=== PATIENT | female | born 1970 | race Caucasian/White ===

== ENCOUNTER → 2023-06-22 | Outpatient (CLI) | payer OTHER, SELFPAY ==
--- OUTSIDE RECORDS SUMMARY | 2023-06-22 08:18 | XMS RPT_ITS | CCD ---
Author Name Unknown Address [address] [place] [address] Organization [facility] Care Team Providers Care Mascara Molder Name Role Phone Franky Pearson Primary Care Provider Unavailstephanie e BEDADAM SIMPSON Admitting Unavailable BEDDELLADAM Attending Unavailable AA REQUESTED, NEW Primary Care Unavailable LANIE LUNA Consulting Unavailable NANDINI VILLEGAS Consulting Unavailable BARBARADELLADAM Admitting Unavailable BEDADAM SIMPSON Attending Unavailable AA REQUESTED, NEW Primary Care Unavailable RENATO CANTORRICIA E, COP EXAMINER Admitting Unavaila ble KATHERINE CANTOR E, COP EXAMINER Attending Unavaila ble CHACORTA REQUESTED, NEW Primary Care Unavailable Franky Pearson Primary Care Provider UnavailFRANKY Villela DO Primary Care Physician Rio Aburto DO Primary Care Provider FRANKY PEARSON DO Attending Unavailable FRANKY PEARSON DO Primary Care Unavailable LILI MIKE, FRANKY Attending Unavailable LILI MIKE, FRANKY Primary Care Unavailable LILI MIKE, FRANKY Attending Unavailable LILI MIKE, FRANKY Primary Care Unavailable HALKO , FRANKY Attending Unavailable LILI MIKE, FRANKY Primary Care Unavailable LILI MIKE, FRANKY Attending Unavailable LILI MIKE, FRANKY Primary Care Unavailable LILI MIKE, FRANKY Attending Unavailable LILI MIKE, FRANKY Primary Care Unavailable KRYSTINA PUGH Attending Unavailable LILI MIKE, FRANKY Primary Care Unavailable LILI MIKE, FRANKY Attending Unavailable LILI MIKE, FRANKY Primary Care Unavailable LILI MIKE, FRANKY Attending Unavailable LILI MIKE, FRANKY Primary Care Unavailable LIIL MIKE, FRANKY Attending Unavailable LILI MIKE, FRANKY Primary Care Unavailable LINDA MARTINEZ MD Attending Unavailable FRANKY PEARSON DO Primary Care Unavailable SHAYNA MARISCAL Attending Unavailable RIO ABURTO Primary Care Unavailable SHAYNA MARISCAL Attending Unavailable SHAYNA MARISCAL Attending Unavailable SHAYNA MARISCAL Attending Unavailable RIO ABURTO Primary Care Unavailable Rio Aburto DO Primary Care Provider Allergies Allergy Classification Reported Allergen(s) Allergy Type Date of Onset Reaction(s) Facility (1 source) NSAIDs Drug allergy (disorder) [facility] Repository Medications Current Medications Medication Drug Class(es) Dates Sig (Normalized) Sig (Original) 3 ML semaglutide 1.34 MG/ML Pen Injector [Ozempic] (3 sources) Start: 08-24-2022 inject 1 dose by subcutaneous injection every week Ozempic (1 mg dose) 4 mg/3 mL subcutaneous solution Dose : 1 mg =, Subcutaneous, qWeek, # 3 mL, 0 Refill(s) Start Date: 08/24/22 Status: Ordered acetaminophen 500 mg oral tablet (7 sources) Start: 02-18-2019 acetaminophen 500 mg oral tablet Dose : 1,000 mg = 2 tab(s), Oral, q6hr, PRN for pain, # 100 tab(s), 0 Refill(s) Start Date: 02/18/19 Status: Ordered acetaminophen 325 mg / butalbital 50 mg / caffeine 40 mg oral capsule (5 sources) Barbiturate, Central Nervous System Stimulant, Methylxanthine Start: 08-24-2022 take 1 capsule by mouth every four hours as needed acetaminophen/buta lbital/caffeine 325 mg-50 mg-40 mg oral capsule Dose = 1 cap(s), Oral, q4h, PRN as needed, # 30 cap(s), 2 Refill(s), Pharmacy: [facility], 160, cm, 08/24/22 8:00:00 EDT, Height, kg, 08/24/22 8:00:00 EDT, Dosing Weight Start Date: 08/24/22 Status: Ordered Completed/Discontinued Medications Medication Drug Class(es) Dates Sig (Normalized) Sig (Original) acetaminophen 325 mg / HYDROcodone bitartrate 5 mg oral tablet (3 sources) Opioid Agonist Start: 05-22-2021 End: 05-25-2021 take 1 tablet by mouth every six hours as needed for pain Bonnie 325- 5 mg oral tablet Dose = 1 tab(s), Oral, q6h, PRN as needed for pain, # 10 tab(s), 0 Refill(s), Abdominal pain, 77.3 Start Date: 05/22/21 Stop Date: 05/25/21 Status: Ordered Azithromycin 5 Day Dose Pack 250 mg oral tablet (3 sources) Start: 08-26-2022 End: 08-31-2022 Azithromycin 5 Day Dose Pack 250 mg oral tablet Dose : 500 mg = 2 tab(s), Oral, qDay, Take 2 tabs day one (500mg), then 1 tab days 2-5 (250mg), # 6 tab(s), 0 Refill(s), Pharmacy: [facility][id number], Productive cough, 160, cm, 08/24/22 8:00:00 EDT, Height, 79 Start Date: 08/26/22 Stop Date: 08/31/22 Status: Ordered Problems Active Problems Problem Classification Problem Date Documented Da te Episodic/Chronic Abdominal pain (1 source) Abdominal pain; Translations: [Unspecified abdominal pain] Onset: 1 Episodic Anxiety disorders (14 sources) Anxiety disorder, unspecified; Translations: [Anxiety] Onset: 0 11-07-2019 Chronic Esophageal disorders (19 sources) Gastroesophageal reflux disease without esophagitis; Translations: [Gastroesophageal reflux disease] Onset: 0 10-20-2019 Chronic Headache; including migraine (3 sources) Migraine 08-24-2022 Chronic Immunizations and screening for infectious disease (2 sources) Encounter for screening for other viral diseases; Translations: [ENC SCREENING FOR OTH VIRAL DZ] Onset: 0 Episodic Menopausal disorders (13 sources) Menopausal flushing 11-23-2020 Chronic Menstrual disorders (6 sources) Irregular periods; Translations: [Irregular menstruation, unspecified] Onset: 8 06-27-2017 Chronic Mood disorders (13 sources) Major depression in remission 11-07-2019 Chronic Mood disorders (1 source) Major depressive disorder, single episode, unspecified; Translations: [JONNY DEPRESS D/O SINGLE EPIS UNS] Onset: 0 Nonspecific chest pain (3 sources) Chest pain; Translations: [Chest pain, unspecified] Onset: 3 Episodic Nutritional deficiencies (9 sources) Vitamin D deficiency; Translations: [Vitamin D deficiency, unspecified] Onset: 8 10-17-2017 Chronic Other aftercare (1 source) Other assisted (current) drug therapy; Translations: [OTH LEGISLATIVE ASSISTANT CURRENT DRUG THERAPY] Onset: 0 Episodic Other bone disease and musculoskeletal deformities (12 sources) Somatic dysfunction of upper limb 05-31-2021 Episodic Other connective tissue disease (12 sources) Pain in right arm 05-31-2021 Episodic Other gastrointestinal disorders (6 sources) Intestinal malabsorption; Translations: [Intestinal malabsorption, unspecified] Onset: 8 04-17-2018 Chronic Other gastrointestinal disorders (1 source) Irritable bowel syndrome without diarrhea; Translations: [IRRITABLE BOWEL SYND W/O DIARRHEA] Onset: 0 Chronic Other gastrointestinal disorders (1 source) History of bariatric surgical procedure; Translations: [Bariatric surgery status] Episodic Other hereditary and degenerative nervous system conditions (13 sources) Restless legs 06-25-2020 Chronic Other inflammatory condition of skin (1 source) Erythema intertrigo; Translations: [ERYTHEMA INTERTRIGO] Onset: 0 Episodic Other liver diseases (6 sources) Steatosis of liver; Translations: [Fatty (change of) liver, not elsewhere classified] Onset: 8 04-08-2018 Chronic Other nutritional; endocrine; and metabolic disorders (10 sources) Body mass index 30+ - obesity; Translations: [Body mass index (BMI) 31.0-31.9, adult] Onset: 9 Resolved: 9 04-10-2019 Chronic Other nutritional; endocrine; and metabolic disorders (6 sources) Morbid obesity; Translations: [Morbid (severe) obesity due to excess calories] Onset: 8 04-08-2018 Chronic Other nutritional; endocrine; and metabolic disorders (1 source) Body mass index 25-29 - overweight; Translations: [BMI 25.0-25.9,adult] Onset: 0 02-25-2020 Chronic Other nutritional; endocrine; and metabolic disorders (2 sources) Localized adiposity; Translations: [LOCALIZED ADIPOSITY] Onset: 0 Chronic Other nutritional; endocrine; and metabolic disorders (3 sources) Obesity, unspecified; Translations: [OBESITY UNSPECIFIED] Onset: 0 Chronic Other nutritional; endocrine; and metabolic disorders (1 source) Body mass index (BMI) 30.0-30.9, adult; Translations: [BODY MASS INDEX BMI 30.0-30.9 ADULT] Onset: 0 Chronic Other nutritional; endocrine; and metabolic disorders (11 sources) Obesity; Translations: [Obesity, unspecified] 11-22-2021 Chronic Other nutritional; endocrine; and metabolic disorders (2 sources) Body mass index (BMI) 31.0-31.9, adult; Translations: [Body mass index (BMI) 31.0-31.9, adult] Onset: 3 Chronic Other nutritional; endocrine; and metabolic disorders (2 sources) Body mass index (BMI) 32.0-32.9, adult; Translations: [Body mass index (BMI) 32.0-32.9, adult] Onset: 3 Chronic Other nutritional; endocrine; and metabolic disorders (1 source) Weight gain; Translations: [Abnormal weight gain] Episodic Other screening for suspected conditions (not mental disorders or infectious disease) (12 sources) Computed tomography result abnormal 05-31-2021 Chronic Other screening for suspected conditions (not mental disorders or infectious disease) (15 sources) Mammography abnormal; Translations: [Viral screening status] 05-31-2021 Episodic Residual codes; unclassified (13 sources) Immunization due 04-07-2020 Episodic Residual codes; unclassified (13 sources) Insomnia 10-07-2019 Episodic Residual codes; unclassified (13 sources) Postmenopausal state 11-23-2020 Episodic Residual codes; unclassified (3 sources) Screening due 08-24-2022 Episodic Residual codes; unclassified (2 sources) Family history of ischemic heart disease 08-29-2022 Episodic Screening and history of mental health and substance abuse codes (8 sources) Tobacco use and exposure - finding 02-28-2022 Chronic Unclassified (13 sources) Cancer cervix screening status 04-07-2020 Unclassified (13 sources) History of bypass of stomach 10-07-2019 Unclassified (20 sources) Patient encounter status 12-30-2019 Unclassified (2 sources) Bariatrics Post Op Follow-up; Translations: [Bariatrics Post Op Follow-up] Onset: 2 Unclassified (2 sources) Weight Management; Translations: [Weight Management] Onset: 2 Viral infection (12 sources) Viral disease; Translations: [Post-viral disorder] 05-27-2020 Episodic Past or Other Problems Problem Classification Problem Date Documented Da te Episodic/Chronic Calculus of urinary tract (18 sources) History of calculus of kidney; Translations: [Kidney stone] Onset: 06-27-2017 06-27-2017 Episodic Coma; stupor; and brain damage (6 sources) Daytime somnolence; Translations: [Somnolence] Onset: 06-27-2017 06-27-2017 Episodic Diabetes mellitus without complication (17 sources) Prediabetes; Translations: [Prediabetes] Onset: 08-18-2022 Resolved: 04-10-2019 04-10-2019 Episodic Essential hypertension (4 sources) Hypertensive disorder; Translations: [HTN (hypertension)] Resolved: 04-10-2019 04-10-2019 Chronic Gastritis and duodenitis (6 sources) Superficial gastritis; Translations: [Acute superficial gastritis] Onset: 11-27-2017 11-27-2017 Episodic Malaise and fatigue (8 sources) Fatigue; Translations: [Other fatigue] Onset: 06-27-2017 06-27-2017 Episodic Nutritional deficiencies (9 sources) Deficiency of multiple nutrient elements; Translations: [Deficiency of multiple nutrient elements] Onset: 04-17-2018 04-17-2018 Episodic Other gastrointestinal disorders (3 sources) Bariatric surgery status; Translations: [BARIATRIC SURGERY STATUS] Onset: 02-11-2020 Episodic Other lower respiratory disease (6 sources) Dyspnea; Translations: [Shortness of breath] Onset: 06-27-2017 06-27-2017 Episodic Other nutritional; endocrine; and metabolic disorders (2 sources) Overweight in adulthood with body mass index of 25 or more but less than 30; Translations: [Body mass index (BMI) 25.0-25.9, adult] Onset: 02-25-2020 03-27-2022 Episodic Other nutritional; endocrine; and metabolic disorders (2 sources) Abnormal weight gain; Translations: [Abnormal weight gain] Onset: 08-18-2022 Episodic Residual codes; unclassified (4 sources) Obstructive sleep apnea syndrome; Translations: [SANDY on CPAP] Onset: 03-14-2018 Resolved: 04-10-2019 04-10-2019 Chronic Spondylosis; intervertebral disc disorders; other back problems (6 sources) Backache; Translations: [Dorsalgia, unspecified] Onset: 06-27-2017 06-27-2017 Episodic Results Test Name Value Interpretation Reference Range Facil ity Vital Signs Date Time Vital Sign Value Performing Clinician Gracie maria 08-26-2022 19:04-0400 Body temperature 97.88 [degF] LINDA MARTINEZ MD [facility] 08-26-2022 18:57-0400 Body temperature 97.88 [degF] LINDA MARTINEZ MD [facility] 08-26-2022 18:30-0400 Diastolic Blood Pressure Non-Invasive 72 1 LINDA MARTINEZ MD [facility] 08-26-2022 18:30-0400 Heart rate 80 /min LINDA MARTINEZ MD [facility] 08-26-2022 18:30-0400 Respiratory rate 13 /min LINDA MARTINEZ MD [facility] 08-26-2022 18:30-0400 Systolic Blood Pressure Non-Invasive 130 1 LINDA MARTINEZ MD [facility] 08-26-2022 18:00-0400 Diastolic Blood Pressure Non-Invasive 69 1 LINDA MARTINEZ MD [facility] 08-26-2022 18:00-0400 Heart rate 81 /min LINDA MARTINEZ MD [facility] 08-26-2022 18:00-0400 Respiratory rate 14 /min LINDA MARTINEZ MD [facility] 08-26-2022 18:00-0400 Systolic Blood Pressure Non-Invasive 127 1 LINDA MARTINEZ MD [facility] 08-26-2022 17:30-0400 Diastolic Blood Pressure Non-Invasive 72 1 LINDA MARTINEZ MD [facility] 08-26-2022 17:30-0400 Heart rate 80 /min LINDA MARTINEZ MD [facility] 08-26-2022 17:30-0400 Respiratory rate 13 /min LINDA MARTINEZ MD [facility] 08-26-2022 17:30-0400 Systolic Blood Pressure Non-Invasive 130 1 LINDA MARTINEZ MD [facility] 08-26-2022 16:07-0400 Body temperature 96.62 [degF] LINDA MARTINEZ MD [facility] 08-18-2022 14:03-0500 Body height 160.7 cm Shayna Mariscal MD Work Phone: [facility] 08-18-2022 14:03-0500 Body mass index (BMI) [Ratio] 31.74 kg/m2 Shayna Mariscal MD Work Phone: [facility] [employer] 08-18-2022 14:03-0500 Body weight 81.92 kg Shayna Mariscal MD Work Phone: [facility] 08-18-2022 14:03-0500 Diastolic blood pressure 79 mm[Hg] Shayna Mariscal MD Work Phone: [facility] 08-18-2022 14:03-0500 Heart rate 94 /min hSayna Mariscal MD Work Phone: [facility] 08-18-2022 14:03-0500 Systolic blood pressure 121 mm[Hg] Shayna Mariscal MD Work Phone: [facility] 03-03-2022 09:25-0400 Diastolic Blood Pressure NBP [address] KRYSTINA PUGH MD [facility] 03-03-2022 09:25-0400 Heart rate 80 /min DR KRYSTINA PUGH MD [facility] 03-03-2022 09:25-0400 Respiratory rate 14 /min DR KRYSTINA PUGH MD [facility] 03-03-2022 09:25-0400 Systolic Blood Pressure NBP [address] KRYSTINA PUGH MD [facility] 03-03-2022 09:20-0400 Diastolic Blood Pressure NBP [address] KRYSTINA PUGH MD [facility] 03-03-2022 09:20-0400 Heart rate 73 /min DR KRYSTINA PUGH MD [facility] 03-03-2022 09:20-0400 Respiratory rate 21 /min DR KRYSTINA PUGH MD [facility] 03-03-2022 09:20-0400 Systolic Blood Pressure NBP [address] KRYSTINA PUGH MD [facility] 03-03-2022 09:16-0400 Diastolic Blood Pressure NBP [address] KRYSTINA PUGH MD [facility] 03-03-2022 09:16-0400 Heart rate 78 /min DR KRYSTINA PUGH MD [facility] 03-03-2022 09:16-0400 Respiratory rate 15 /min DR KRYSTINA PUGH MD [facility] 03-03-2022 09:16-0400 Systolic Blood Pressure NBP [address] KRYSTINA PUGH MD [facility] 03-03-2022 07:55-0400 Body height 162.[address] KRYSTINA PUGH MD [facility] 03-03-2022 07:55-0400 Body temperature 98.06 [degF] DR KRYSTINA PUGH MD [facility] 03-03-2022 07:55-0400 Body weight 79.[address] KRYSTINA PUGH MD [facility] 03-03-2022 07:55-0400 Body weight 30.07 kg/m2 DR KRYSTINA PUGH MD [facility] 05-22-2021 05:00-0500 Diastolic blood pressure 79 mm[Hg] RUY RIVERA MD [facility] 05-22-2021 05:00-0500 Heart rate 70 /min RUY RIVERA MD [facility] 05-22-2021 05:00-0500 Mean blood pressure 91 mm[Hg] RUY RIVERA MD [facility] 05-22-2021 05:00-0500 Reason For Taking VItal Signs RUY RIVERA MD [facility] 05-22-2021 05:00-0500 Respiratory rate 14 /min RUY RIVERA MD [facility] 05-22-2021 05:00-0500 Systolic blood pressure 114 mm[Hg] RUY RIVERA MD [facility] 05-22-2021 04:24-0500 Body temperature 98.06 [degF] RUY RIVERA MD [facility] 05-22-2021 04:24-0500 Diastolic blood pressure 97 mm[Hg] RUY RIVERA MD [facility] 05-22-2021 04:24-0500 Heart rate 81 /min RUY RIVERA MD [facility] 05-22-2021 04:24-0500 Mean blood pressure 108 mm[Hg] RUY RIVERA MD [facility] 05-22-2021 04:24-0500 Respiratory rate 16 /min RYU RIVERA MD [facility] 05-22-2021 04:24-0500 Systolic blood pressure 130 mm[Hg] RUY RIVERA MD [facility] Encounters Encounter Date Encounter Type Care Provider Facility Start: 01-16-2023 Telephone encounter Shayna mcdonald MD Work Phone: [facility] [place] Procedures Date Procedure Procedure Detail Performing Clinician Start: 06-08-2020 Lipid 1996 panel - S mikaela or Plasma Shayna Mariscal MD Work Phone: section DR KRYSTINA PUGH MD Plan of Treatment Date Care Activity Detail Author Start: 2031 RSV Immunization aged 60 or older (1 - 1-dose 60+ series) RSV Immunization aged 60 or older (1 - 1-dose 60+ series) [facility] Start: 04-07-2030 DTaP/Tdap/Td Vaccines (2 - Td or Tdap) DTaP/Tdap/Td Vaccines (2 - Td or Tdap) [facility] Start: 06-08-2025 Lipid panel Lipid Panel [facility] Start: 02-09-2023 COVID-19 Vaccine ( season) COVID-19 Vaccine ( season) [facility] Start: 02-09-2023 Influenza vaccination Influenza Vaccine (#1) [facility] Start: 12-15-2022 End: 12-15-2022 Patient encounter procedure 12/15/2022 Office Visit [facility] Management Shayna Mariscal MD [address] [place] [address] [facility] [place] Start: 10-19-2022 Zoster Vaccines (2 of 2) Zoster Vaccines (2 of 2) [facility] Start: 02-09-2022 Influenza vaccination Influenza Vaccine (#1) [facility] Start: 2021 Zoster Vaccines (1 of 2) Zoster Vaccines (1 of 2) [facility] Start: 06-02-2021 COVID-19 Vaccine (4 - Booster for Moderna series) COVID-19 Vaccine (4 - Booster for Moderna series) [facility] Start: 02-10-2020 Influenza vaccination Flu vaccine (#1) [place], [place] Start: 03-14-2019 A1C test (Diabetic or Prediabetic) A1C test (Diabetic or Prediabetic) [place] Start: 03-14-2019 HbA1c (Bld) [Mass fraction] A1C test (Diabetic or Prediabetic) [place] Start: 02-09-2019 Influenza vaccination Flu vaccine (#1) [place] Start: 2011 Screening for malignant neoplasm of breast Mammogram [facility] Start: 2001 Screening for malignant neoplasm of cervix [facility] Start: 1992 Cervical cancer screen Cervical cancer screen [place], [place] Start: 1992 Screening for malignant neoplasm of cervix [facility] Start: 1990 DTaP/Tdap/Td vaccine (1 - Tdap) DTaP/Tdap/Td vaccine (1 - Tdap) [place] Start: 1990 Hepatitis A Vaccines (1 of 2 - Risk 2-dose series) Hepatitis A Vaccines (1 of 2 - Risk 2-dose series) [facility] Start: 1990 Hepatitis B vaccine (1 of 3 - Risk 3-dose series) Hepatitis B vaccine (1 of 3 - Risk 3-dose series) [place] Start: 1989 Diabetes mellitus screening Diabetes Screening [facility] Start: 1989 Diabetic microalbuminuria test Diabetic microalbuminuria test [place] Start: 1989 Hepatitis C screening Hepatitis C Screening [facility] Start: 1986 HIV screen HIV screen [place], [place] Start: 1986 HIV screening HIV screen [place] Start: 1983 Depression Screening Depression Screening [facility] Start: 1981 [object Object] Diabetic foot exam [place], [place] Start: 1981 Diabetic foot examination Diabetic foot exam [place] Start: 1981 Diabetic retinal exam Diabetic retinal exam [place], [place] Start: 1981 Lipid panel Lipid screen [place] Start: 1981 Lipid screen Lipid screen [place] Start: 1977 Pneumococcal 0-64 years Vaccine (1 of 1 - PPSV23) Pneumococcal 0-64 years Vaccine (1 of 1 - PPSV23) [place] Start: 1972 Hepatitis A Vaccines (1 of 2 - Risk 2-dose series) Hepatitis A Vaccines (1 of 2 - Risk 2-dose series) [facility] Start: 1972 MMR Vaccines (1 of 1 - Standard series) MMR Vaccines (1 of 1 - Standard series) [facility] Start: 1971 Hepatitis B Vaccines (1 of 3 - 3-dose series) Hepatitis B Vaccines (1 of 3 - 3-dose series) [facility] Start: 1971 HIV screening HIV Screening [facility] Start: 1971 Screening for malignant neoplasm of colon [facility] Immunizations Immunization Date Immunization Notes Care Provider Fa prema 08-24-2022 zoster vaccine recombinant; Translations: [Shingrix] LINDA MARTINEZ MD [facility] 03-11-2022 influenza virus vaccine, unspecified formulation [facility] Payers Date Payer Category Payer Unknown [employer] [id number] 2021-Present [address] [place] [address] Commercial [id number] 2017 Unknown [employer] xxxxxxxxxxxxx 2017-Present [phone] [address] [place] [address] xxxxxxxxxxxxx [id number] 2017 Unknown [employer] [id number] 2017-Present [phone] [address] [place] [address] [id number] 2015 Unknown [id number] 1971 Unknown [id number] 1971 Unknown [id number] 1971 Unknown [id number] 1971 Unknown [id number] 1971 Unknown [id number] 1971 Unknown [id number] 1971 Unknown [id number] 1971 Unknown [id number] 1971 Unknown [id number] 1971 Unknown [id number] 1971 Unknown [id number] 1971 Unknown [id number] 1971 Unknown [id number] 1971 Unknown [id number] 1959 Unknown [id number] Unknown [id number] Social History Date Type Detail Facility Start: 06-27-2019 End: 12-10-2019 Tobacco smoking status NHIS Never smoker [place], [place] Start: 12-10-2019 End: 07-07-2022 Alcohol intake Ex-drinker (finding) [facility] Start: 04-01-2018 Alcohol Comment less than once a mon th [place], [place] Start: 1971 Sex Assigned At Not on file M [place] Start: 04-10-2019 End: 02-25-2020 Tobacco use and exposure Never used [place] Start: 04-10-2019 End: 07-07-2022 Alcohol intake Not Currently [place], [place] Sex Assigned At Female [facility] Start: 08-08-2022 End: 08-18-2022 Exposure to SARS-CoV-2 (event) Not sure [facility] Start: 07-07-2022 History of Social function [facility] Medical Equipment Procedure Code Equipment Code Equipment Origin al Text Equipment Identifier Dates See Instructions , dx E16.2; check BGT due to hypoglycemic symptoms, up to once per day; dispense 100 glucose test strips, # 100 EA, 0 Refill(s), Pharmacy: [facility], 164, cm, 04/04/22 8:05:00 EDT, Height, 86.1 Start: 04-04-2022 See Instructions , dx E16.2; check BGT due to hypoglycemic symptoms, up to once per day; dispense 100 lancets., # 100 EA, 0 Refill(s), Pharmacy: [facility], 164, cm, 04/04/22 8:05:00 EDT, Height, 86.1 Start: 04-04-2022 See Instructions , dx E16.2; check BGT due to hypoglycemic symptoms, up to once per day; dispense 100 glucose test strips, # 100 EA, 0 Refill(s), Pharmacy: [facility], 164, , 04/04/22 8:05:00 EDT, Height, 86.1 Start: 04-04-2022 See Instructions , dx E16.2; check BGT due to hypoglycemic symptoms, up to once per day; dispense 100 lancets., # 100 EA, 0 Refill(s), Pharmacy: [facility], 164, cm, 04/04/22 8:05:00 EDT, Height, 86.1 Start: 04-04-2022 See Instructions , dx E16.2; check BGT due to hypoglycemic symptoms, up to once per day; dispense 100 glucose test strips, # 100 EA, 0 Refill(s), Pharmacy: [facility], 164, , 04/04/22 8:05:00 EDT, Height, 86.1 Start: 04-04-2022 See Instructions , dx E16.2; check BGT due to hypoglycemic symptoms, up to once per day; dispense 100 lancets., # 100 EA, 0 Refill(s), Pharmacy: [facility], 164, cm, 04/04/22 8:05:00 EDT, Height, 86.1 Start: 04-04-2022 See Instructions , dx E16.2; check BGT due to hypoglycemic symptoms, up to once per day; dispense 100 glucose test strips, # 100 EA, 0 Refill(s), Pharmacy: [facility], 164, cm, 04/04/22 8:05:00 EDT, Height, 86.1 Start: 04-04-2022 See Instructions , dx E16.2; check BGT due to hypoglycemic symptoms, up to once per day; dispense 100 lancets., # 100 EA, 0 Refill(s), Pharmacy: [facility], 164, cm, 04/04/22 8:05:00 EDT, Height, 86.1 Start: 04-04-2022 See Instructions , dx E16.2; check BGT due to hypoglycemic symptoms, up to once per day; dispense 100 glucose test strips, # 100 EA, 0 Refill(s), Pharmacy: [facility], 164, cm, 04/04/22 8:05:00 EDT, Height, 86.1 Start: 04-04-2022 See Instructions , dx E16.2; check BGT due to hypoglycemic symptoms, up to once per day; dispense 100 lancets., # 100 EA, 0 Refill(s), Pharmacy: [facility], 164, cm, 04/04/22 8:05:00 EDT, Height, 86.1 Start: 04-04-2022 See Instructions , dx E16.2; check BGT due to hypoglycemic symptoms, up to once per day; dispense 100 glucose test strips, # 100 EA, 0 Refill(s), Pharmacy: [facility], 164, cm, 04/04/22 8:05:00 EDT, Height, 86.1 Start: 04-04-2022 See Instructions , dx E16.2; check BGT due to hypoglycemic symptoms, up to once per day; dispense 100 lancets., # 100 EA, 0 Refill(s), Pharmacy: [facility], 164, cm, 04/04/22 8:05:00 EDT, Height, 86.1 Start: 04-04-2022 See Instructions , dx E16.2; check BGT due to hypoglycemic symptoms, up to once per day; dispense 100 glucose test strips, # 100 EA, 0 Refill(s), Pharmacy: [facility], 164, cm, 04/04/22 8:05:00 EDT, Height, 86.1 Start: 04-04-2022 See Instructions , dx E16.2; check BGT due to hypoglycemic symptoms, up to once per day; dispense 100 lancets., # 100 EA, 0 Refill(s), Pharmacy: [facility], 164, cm, 04/04/22 8:05:00 EDT, Height, 86.1 Start: 04-04-2022 Functional Status Date Assessment Result Facility 08-26-2022 Functional Status Independent [facility] yuki [facility] 03-03-2022 Functional Status Maintained, Less than 8 hours [facility] Clinical Notes 05-22-2021 to 01-16-2023 Telephone Encounter - Liya Walker - 01/16/2023 4:54 PM EDTTelephone Encounter - Liya Walker - 01/16/2023 4:54 PM EDTMary Mishra MA - 08/18/2022 2:10 PM EST Note Date & Type Note Facility 01-16-2023 Telephone encounter Note Name of Caller: Amanda Contact Reason for Appointment: Pt needs to cancel upcoming appt and the pt sill call back to resx. Please advise Office Name: [facility] Medication Refills need, if any: NA Medication Name: NA [facility] 01-16-2023 Miscellaneous Notes Name of Caller: Amanda Contact Reason for Appointment: Pt needs to cancel upcoming appt and the pt sill call back to resx. Please advise Office Name: [facility] Medication Refills need, if any: NA Medication Name: NA documented in this encounter [facility] 08-26-2022 Hospital Discharg e instructions Patient Education 08/26/2022 17:49:43 Chest Pain, Uncertain Cause Uncertain Causes of Chest Pain Chest pain can happen for a number of reasons. Sometimes the cause can't be determined. If your condition does not seem serious, and your pain does not appear to be coming from your heart, your healthcare provider may recommend watching it closely. Sometimes the signs of a serious problem take more time to appear. Many problems not related to your heart can cause chest pain. These include: Musculoskeletal. Costochondritis is an inflammation of the tissues around the ribs that can occur from trauma or overuse injuries, or a strain of the muscles of the chest wall Respiratory. Pneumonia, collapsed lung (pneumothorax), or inflammation of the lining of the chest and lungs (pleurisy) Gastrointestinal. Esophageal reflux, heartburn, ulcers, or gallbladder disease Anxiety and panic disorders Nerve compression and inflammation Rare miscellaneous problems such as aortic aneurysm (a swelling of the large artery coming out of the heart) or pulmonary embolism (a blood clot in the lungs) Home care After your visit, follow these recommendations: Rest today and avoid strenuous activity. Take any prescribed medicine as directed. Be aware of any recurrent chest pain and notice any changes Follow-up care Follow up with your healthcare provider if you do not start to feel better within 24 hours, or as advised. Call 911 Call 911 if any of these occur: A change in the type of pain: if it feels different, becomes more severe, lasts longer, or begins to spread into your shoulder, arm, neck, jaw or back Shortness of breath or increased pain with breathing Weakness, dizziness, or fainting Rapid heart beat Crushing sensation in your chest When to seek medical advice Call your healthcare provider right away if any of the following occur: Cough with dark colored sputum (phlegm) or blood Fever of 100.4 F (38 C) or higher, or as directed by your healthcare provider Swelling, pain or redness in one leg [id number] [employer]. [address] [place] [id number]. All rights reserved. This information is not intended as a substitute for professional medical care. Always follow your healthcare professional's instructions. Follow Up Care 08/26/2022 16:01:09 With:FRANKY PEARSON Address: [address] [facility] [place] [address]- [phone] Business (1) When:2-4 days Comments:Schedule appointment as soon as possibleReturn to ED if symptoms worsenClear liquid diet till 12noon and if symptoms do not recur increase as tolerated.Follow up for outpatient stress testing.Return for symptoms as described [facility] 08-26-2022 Note Discharge Instructions Thank you for allowing [facility] to assist you with your healthcare needs. The following is important discharge information regarding your hospital visit. Diagnosis from Today's Visit Chest pain Chest pain SOB - Shortness of breath What to Do Next Instructions from Your Care Team No qualifying data available. Post Acute Orders No qualifying data available. You Need to Schedule the Following Appointments Follow Up with FRANKY PEARSON When Within 2-4 days Why: Schedule appointment as soon as possible Return to ED if symptoms worsen Clear liquid diet till 12noon and if symptoms do not recur increase as tolerated. Follow up for outpatient stress testing. Return for symptoms as described Where: [address] [facility] [place] [address]- [phone] Business (1) Allergies NKA Medications Please ask your primary doctor or pharmacist before taking any other medication not listed, including over the counter drugs, herbal medications, vitamins and or supplements as they may interact with your home medications. What How Much When Why Instructions Last Dose Unchanged APAP/ butalbital/ caffeine (acetaminophen/ butalbital/ caffeine 325 mg-50 mg-40 mg oral capsule) 1 cap by mouth Every 4 hours as needed for as needed Unchanged azithromycin (Azithromycin 5 Day Dose Pack 250 mg oral tablet) 2 tab(s) by mouth Once a day Productive cough Duration: 5 Days Take 2 tabs day one (500mg), then 1 tab days 2-5 (250mg) Unchanged biotin (biotin 1000 mcg oral tablet) 4 tab(s) by mouth Once a day Unchanged brompheniramine/ dextromethorphan/ PSE (Bromfed DM oral syrup) 10 Milliliter by mouth Four (4) times a day as needed for for cold symptoms Productive cough Duration: 7 Days Unchanged buPROPion (buPROPion 100 mg oral tablet) 1 tab(s) by mouth Two (2) times a day Duration: 90 Days Unchanged calcium gluconate (calcium gluconate 500 mg oral tablet) 1 tab(s) by mouth Three (3) times a day Unchanged cholecalciferol (Vitamin D3 125 mcg (5000 intl units) oral tablet) 1 tab(s) by mouth Once a day Duration: 90 Days Unchanged cyanocobalamin (Vitamin B12 500 mcg sublingual tablet) 1 tab(s) under the tongue Once a day Unchanged DME (DME MISCellaneous) See instructions dx E16.2; check BGT due to hypoglycemic symptoms, up to once per day; dispense 100 lancets. Unchanged DME (DME MISCellaneous) See instructions dx E16.2; check BGT due to hypoglycemic symptoms, up to once per day; dispense 100 glucose test strips Unchanged DME (DME MISCellaneous) See instructions dx E16.2; check BGT due to hypoglycemic symptoms, up to once per day; dispense 100 EtOH wipes Unchanged DME (DME MISCellaneous) See instructions Hypoglycemia dx E16.2; check BGT due to hypoglycemic symptoms, up to once per day; dispense one glucometer. Unchanged estradiol (estradiol 0.5 mg oral tablet) 1 tab(s) by mouth Once a day Unchanged LORazepam (LORazepam 0.5 mg oral tablet) 1 tab(s) by mouth Once a day as needed for as needed for anxiety Anxiety Duration: 30 Days oarrs appropriate, to be filled on or after Unchanged metFORMIN (MetFORMIN (Eqv-Glucophage XR) 500 mg oral tablet, EXTENDED RELEASE) 1 tab(s) by mouth Two (2) times a day Duration: 90 Days Unchanged multivitamin (Multivitamin) 1 tab(s) by mouth Two (2) times a day Unchanged omeprazole (omeprazole 20 mg oral delayed release capsule) 1 cap by mouth Once a day Duration: 90 Days Unchanged ondansetron (ondansetron 4 mg oral tablet, disintegrating) 1 tab(s) by mouth Every 6 hours as needed for Nausea/Vomiting Unchanged predniSONE (prednisone 20mg tab (TAPER)) 2 tab(s) by mouth Once a day Productive cough Duration: 5 Days Unchanged semaglutide (Ozempic (1 mg dose) 4 mg/ 3 mL subcutaneous solution) 1 Milligram Subcutaneous Every week Unchanged zinc gluconate (zinc (as gluconate) 50 mg oral tablet) 1 tab(s) by mouth Every day Duration: 90 Days Please take this list to your next doctor s visit. Bring all medications you take, including over the counter medications, herbals and other supplements with you to your doctor s visit. Patients and families are reminded to discard old lists and to update any records with all medication providers or retail pharmacies. Education Materials Uncertain Causes of Chest Pain Chest pain can happen for a number of reasons. Sometimes the cause can't be determined. If your condition does not seem serious, and your pain does not appear to be coming from your heart, your healthcare provider may recommend watching it closely. Sometimes the signs of a serious problem take more time to appear. Many problems not related to your heart can cause chest pain. These include: Musculoskeletal. Costochondritis is an inflammation of the tissues around the ribs that can occur from trauma or overuse injuries, or a strain of the muscles of the chest wall Respiratory. Pneumonia, collapsed lung (pneumothorax), or inflammation of the lining of the chest and lungs (pleurisy) Gastrointestinal. Esophageal reflux, heartburn, ulcers, or gallbladder disease Anxiety and panic disorders Nerve compression and inflammation Rare miscellaneous problems such as aortic aneurysm (a swelling of the large artery coming out of the heart) or pulmonary embolism (a blood clot in the lungs) Home care After your visit, follow these recommendations: Rest today and avoid strenuous activity. Take any prescribed medicine as directed. Be aware of any recurrent chest pain and notice any changes Follow-up care Follow up with your healthcare provider if you do not start to feel better within 24 hours, or as advised. Call 911 Call 911 if any of these occur: A change in the type of pain: if it feels different, becomes more severe, lasts longer, or begins to spread into your shoulder, arm, neck, jaw or back Shortness of breath or increased pain with breathing Weakness, dizziness, or fainting Rapid heart beat Crushing sensation in your chest When to seek medical advice Call your healthcare provider right away if any of the following occur: Cough with dark colored sputum (phlegm) or blood Fever of 100.4 F (38 C) or higher, or as directed by your healthcare provider Swelling, pain or redness in one leg [id number] [employer]. [address] [place] [address], [place] [address]. All rights reserved. This information is not intended as a substitute for professional medical care. Always follow your healthcare professional's instructions. Additional Information VACCINATE! IT SAVES LIVES! Members of the community who have not yet received the COVID-19 vaccine and would like to receive it can visit one of [facility] vaccine clinics. There are many vaccine clinic locations within the [facility]. For locations and available times, please visit [email or web address].[place].g [email or web address] It is important to note that some COVID mobile vaccine clinics are held outdoors and may be canceled in rainy or stormy conditions. To learn more about pediatric vaccinations (ages 5-11), we invite you to visit the [employer] webpage. https://www.[employer].org/pa ges/4438-Beesz-Kfhydztabgi-Freque eswk-Yssxd-Jqqmfiwce.html To learn more about the COVID-19 vaccine, we invite you to visit the CDC website for a list of frequently asked questions. https://www.cdc.gov/coronavirus/2 019-ncov/vaccines/faq.html [facility] Patient Portal Access Instructions: Stay connected with your healthcare team and access your personal medical information anytime with the [facility] Patient Portal. If you would like a full copy of your medical records please contact the [facility] Medical Records Department Sunday through Sunday between 8a.m. and 4:30p.m. Please follow the directions below to access the portal: 1.Access the email account you provided upon registration to the hospital.2.Look for an invitation email from [facility].3.Open the email and access the invitation link: Accept Invitation to [facility]4.Fill in the required mckenzie to create your account. Sign into www.[employer] with your username and password that you created in the above steps to stay up to date. You can then view a summary of results, a summary of your visits, and the ability to download your summaries to your computer or send the information securely to a physician. Remember that your healthcare information is confidential, so carefully consider who you will allow to register on the [facility] Patient Portal for access to your information. You can also access the [facility] Patient Portal on the [employer] ram[employer]rez. Simply click on Health Records under Health Data and then click on the [employer] logo. HOW TO SAFELY DISPOSE OF PRESCRIPTION MEDICATIONS Please use one of the following methods to safely dispose of your unused medications. 1.Use a drug disposal kit: the drug disposal pouch allows you to safely discard your old and unused drugs. Ask your nurse to give you one when you are discharged.2.Visit a local take-back location: Many local pharmacies and police departments have programs that collect old and unwanted prescription drugs. Call your local pharmacy or go to http://[employer].Divided/6L5Jt7t to find one close to you.3.Make use of household items: Use cat litter or old coffee grounds to dispose medications if other options are not available. Mix your drugs with these household products, seal them in an airtight container and throw it into the garbage. Call [facility]: [phone] to be sure your drugs can be disposed of in this way. Some medicines may require a different approach.4.Never flush your medications down the toilet. IF YOU HAVE BEEN PRESCRIBED AN OPIOIDS FOR PAIN If you have been prescribed an opioid (such as hydrocodone, oxycodone or morphine), it is critical to understand the possible side effects and risks of opioid pain medications. Even when taken as directed, opioids can have several side effects including: Tolerance, meaning you might need to take more of a medication for the same pain relief. Nausea, vomiting and/or constipation. Sleepiness, dizziness, dry mouth, confusion, depression or itching. Physical dependence, meaning you have withdrawal symptoms when a medication is stopped ? this can develop within a few days. KNOW YOUR RESPONSIBILITIES It is important to know exactly how much and how often to take the opioid pain medications you are prescribed. Never take opioids in higher amounts or more often than prescribed. Do not combine opioids with alcohol or other drugs that cause drowsiness, such as benzodiazepines, also known as benzos, including diazepam and alprazolam, muscle relaxants or sleep aids. Never sell or share prescription opioids. This is illegal. Store opioids in a secure place and out of reach of others (including children, family, friends and visitors). The last page(s) of this document has been signed and retained as a CHART COPY Signatures Patient Education Materials Chest Pain, Uncertain Cause Medication Leaflets My discharge plan and instructions have been reviewed and explained to me and IROMIE HEIDI L understand my current condition and have read and understand these discharge instructions. I have received a written copy of the plan/instructions. If I have questions, I am aware that I should contact my doctor. 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 Multiplanar reformatted images are provided for review. Automated exposure control, iterative reconstruction, and/or weight based adjustment of the mA/kV was utilized to reduce the radiation dose to as low as reasonably achievable. COMPARISON: CT abdomen pelvis May 22, 2021 HISTORY: ORDERING SYSTEM PROVIDED HISTORY: Reason for Exam: pain FINDINGS: Lower Chest: Normal heart size. No focal consolidation or pleural effusion. Organs: The liver appears normal. The patient is status post cholecystectomy. The spleen appears normal. The pancreas appears normal. The adrenal glands appear normal. The kidneys enhance symmetrically with no evidence of nephrolithiasis or hydronephrosis. GI/Bowel: Stable gastric surgical changes. There is stable postsurgical changes in the small bowel. There is mild focal small bowel dilatation just proximal to the anastomosis, however the lumen is patent. There is no evidence of obstruction. The appendix is normal. Pelvis: The pelvic organs appear normal. Peritoneum/Retroperitoneum: There is no intraperitoneal free air or ascites. The aorta and its major branches appear normal. Stable mildly prominent but not pathologically enlarged paraesophageal lymph node at hiatus. No lymphadenopathy is identified. Bones/Soft Tissues: No focal bone or soft tissue abnormality is seen. IMPRESSION: 1. No definite acute abnormality identified. 2. Stable postsurgical changes including left lower quadrant small bowel anastomosis which is patent, although mild focal dilatation is noted proximal to this, of indeterminate clinical significance. Interpreted by: Peewee Vo Preliminary Report By: Peewee Vo Electronically signed By Peewee Vo Dictated Date: 08/26/2022 6:21:07 PM Prelim Date: 08/26/2022 6:34:22 PM Sign Date: 08/26/2022 6:34:22 PM Ordering Provider: LINDA [facility] 08-26-2022 Note ORIGINAL EXAMINATION: CT OF THE ABDOMEN AND PELVIS WITH CONTRAST 08/26/2022 6:16 pm TECHNIQUE: CT of the abdomen and pelvis was performed with the administration of intravenous contrast. Multiplanar reformatted images are provided for review. Automated exposure control, iterative reconstruction, and/or weight based adjustment of the mA/kV was utilized to reduce the radiation dose to as low as reasonably achievable. COMPARISON: CT abdomen pelvis May 22, 2021 HISTORY: ORDERING SYSTEM PROVIDED HISTORY: Reason for Exam: pain FINDINGS: Lower Chest: Normal heart size. No focal consolidation or pleural effusion. Organs: The liver appears normal. The patient is status post cholecystectomy. The spleen appears normal. The pancreas appears normal. The adrenal glands appear normal. The kidneys enhance symmetrically with no evidence of nephrolithiasis or hydronephrosis. GI/Bowel: Stable gastric surgical changes. There is stable postsurgical changes in the small bowel. There is mild focal small bowel dilatation just proximal to the anastomosis, however the lumen is patent. There is no evidence of obstruction. The appendix is normal. Pelvis: The pelvic organs appear normal. Peritoneum/Retroperitoneum: There is no intraperitoneal free air or ascites. The aorta and its major branches appear normal. Stable mildly prominent but not pathologically enlarged paraesophageal lymph node at hiatus. No lymphadenopathy is identified. Bones/Soft Tissues: No focal bone or soft tissue abnormality is seen. IMPRESSION: 1. No definite acute abnormality identified. 2. Stable postsurgical changes including left lower quadrant small bowel anastomosis which is patent, although mild focal dilatation is noted proximal to this, of indeterminate clinical significance. Interpreted by: Peewee Vo Preliminary Report By: Peewee Vo Electronically signed By Peewee Vo Dictated Date: 08/26/2022 6:21:07 PM Prelim Date: 08/26/2022 6:34:22 PM Sign Date: 08/26/2022 6:34:22 PM Ordering Provider: LINDA [facility] 08-26-2022 Note ORIGINAL EXAMINATION: ONE XRAY VIEW OF THE CHEST08/26/2022 5:07 pm CHEST ONE VIEW AP/PA COMPARISON: 03/15/2018 HISTORY: ORDERING SYSTEM PROVIDED HISTORY: Reason for Exam: chest pain FINDINGS: The cardiomediastinal contours are normal. There is no focal consolidation, pleural effusion, or pneumothorax. No acute osseous abnormality. IMPRESSION: No acute radiographic findings. Interpreted by: Sumanth Swanson MD Preliminary Report By: Sumanth Swanson MD Electronically signed By Sumanth Swanson MD Dictated Date: 08/26/2022 5:13:47 PM Prelim Date: 08/26/2022 5:14:04 PM Sign Date: 08/26/2022 5:14:04 PM Ordering Provider: [facility] 08-26-2022 Note ORIGINAL EXAMINATION: ONE XRAY VIEW OF THE CHEST08/26/2022 5:07 pm CHEST ONE VIEW AP/PA COMPARISON: 03/15/2018 HISTORY: ORDERING SYSTEM PROVIDED HISTORY: Reason for Exam: chest pain FINDINGS: The cardiomediastinal contours are normal. There is no focal consolidation, pleural effusion, or pneumothorax. No acute osseous abnormality. IMPRESSION: No acute radiographic findings. Interpreted by: Sumanth Swanson MD Preliminary Report By: Sumanth Swanson MD Electronically signed By Sumanth Swanson MD Dictated Date: 08/26/2022 5:13:47 PM Prelim Date: 08/26/2022 5:14:04 PM Sign Date: 08/26/2022 5:14:04 PM Ordering Provider: [facility] 08-18-2022 Note BARIATRIC CARE IDALIA Nathan POST-OP WEIGHT LOSS MANAGEMENT PROGRESS NOTE FOLLOW UP HPI, PHYSICAL EXAMINATION & PLAN HPI: Patient here today for follow up for weight loss management following surgical weight loss Weight trend since last visit: lost 3 lbs over 1 m stable This patient's excess weight is causing the following co-morbid conditions at this time: Other preDM Plan Physical Examination: Ht 5' 3.25 (1.607 m) Wt 180 lb 9.6 oz (81.9 kg) BMI 31.74 kg/m? General: This patient is alert and oriented X3 General: This patient is awake, alert, and oriented, and is in no apparent distress. Extremities: No cyanosis, clubbing or edema/ No calf tenderness/No restrictions of movement, is ambulatory without assistance. Neurological: Intact x 4 extremities, no focal deficits notes. Skin: No rashes or lesions noted. Social History: This patient is unaccompanied for the evaluation today. She does not smoke, and does not drink alcohol. Current Diet This patient?s current diet is: 80% meal plan Her diet contains adequate amounts of protein, adequate amounts of healthy fats, adequate amounts of green, leafy vegetables, and adequate amounts of fruits. Her comfort foods include: none Current Activity This patient currently does exercise for 30 Minutes per session, 4 times per week, including the following: cardio . Current Eating Behaviors This patients demonstrates the following behaviors as they relate to her eating: structured She eats approximately 5-6 times per day. Her last meal/snack was at 6 am/pm. Progress Made Towards Goals: 3 month weight goal: 10 6 month weight goal: 30 12 month weight goal: 40 Plan: S/P bariatric surgery stable Continue current management, continue weight loss program Obesity Continue current management, continue weight loss program Stable preDM Ozempic 3 month supply Continue current management, continue weight loss program stable [x] Protein goal of 1g protein per 1 kg of ideal body weight: 75 grams [x] Patient advised to maintain a food/exercise/behavior diary until next physician visit. Pt to bring the completed diary to next visit Other: Physician Diet Recommendations given to patient See Follow up Section of today's encounter for next visit and additional scheduling orders I spend a total of 20 minutes on the same day of the visit in discussing/counseling the patient regarding the diet and exercise in order to lose weight.Education on the meal plan and 7 rules of eating is provided. Meal prep is encouraged as a foundation of the meal plan. Food journal is encouraged as a feedback system. Exercise and its role in weight loss is explained. Weight loss medications role in weight loss journey is discussed preDM Is associated with obesity and weight loss is discussed as a treatment option for preDM Full chart review was performed.Clinical documentation is updated and completed. [facility] 08-18-2022 History of Presen t illness Narrative [facility] ROOMING NOTE POST WEIGHT LOSS SURGERY FOLLOW UP Patient: Amanda Grubbs Service Date: 08/18/2022 Patient is 5 year(s) s/p RnY Gastric Bypass Today's Metrics: Post-Surgical Weight Loss Date: 08/18/22 Height: 5' 3.25 (160.7 cm) Weight: 180 lb 9.6 oz (81.9 kg) BMI: 31.74 Weight Change: -3.2 lbs Total Weight Change: <No Pre-Surgical Weight on File> % EBWL: <UNK> Post-op Weight Metrics: Post-Surgical Weight Loss Date: 08/18/22 Height: 5' 3.25 (160.7 cm) Weight: 180 lb 9.6 oz (81.9 kg) BMI: 31.74 Weight Change: -3.2 lbs Total Weight Change: <No Pre-Surgical Weight on File> % EBWL: <UNK> (From Surgical Weight Loss Tracker) Patient has the following questions: None Reported Pain: Patient rates pain on scale 0-10 as: 0 Exercise Compliance: Exercising: yes If yes: Type: gym with skills trainer Times per week: 3 Min per session: 60 Falls Risk Assessment Patient does take medications which affect BP or mental status Patient does not t have newly prescribed or changed dosage of medications within past 30 days which affect BP or mental status Patient has not fallen in the past 2 months Patient does not t demonstrate unsteady gait Patient uses the following ambulatory assistive devices: none Patient states the presence of the following traits which increases risk of fall: none Patient is not on home O2 Pre-op Weight Metrics: Labs Completed: no - If NO, patient instructed to get labs drawn today or JAD If YES: [facility] N/A If yes see Labs Tab Labs completed at Non[facility] facility? N/A If yes see Encounters Tab - Orders only - Historical Provider - Date: Completed by: Mary Mishra MA [facility] POST-OP WEIGHT LOSS MANAGEMENT PROGRESS NOTE FOLLOW UP HPI, PHYSICAL EXAMINATION & PLAN HPI: Patient here today for follow up for weight loss management following surgical weight loss Weight trend since last visit: lost 3 lbs over 1 m stable This patient's excess weight is causing the following co-morbid conditions at this time: Other preDM Plan Physical Examination: Ht 5' 3.25 (1.607 m) Wt 180 lb 9.6 oz (81.9 kg) BMI 31.74 kg/m General: This patient is alert and oriented X3 General: This patient is awake, alert, and oriented, and is in no apparent distress. Extremities: No cyanosis, clubbing or edema/ No calf tenderness/No restrictions of movement, is ambulatory without assistance. Neurological: Intact x 4 extremities, no focal deficits notes. Skin: No rashes or lesions noted. Social History: This patient is unaccompanied for the evaluation today. She does not smoke, and does not drink alcohol. Current Diet This patient s current diet is: 80% meal plan Her diet contains adequate amounts of protein, adequate amounts of healthy fats, adequate amounts of green, leafy vegetables, and adequate amounts of fruits. Her comfort foods include: none Current Activity This patient currently does exercise for 30 Minutes per session, 4 times per week, including the following: cardio . Current Eating Behaviors This patients demonstrates the following behaviors as they relate to her eating: structured She eats approximately 5-6 times per day. Her last meal/snack was at 6 am/pm. Progress Made Towards Goals: 3 month weight goal: 10 6 month weight goal: 30 12 month weight goal: 40 Plan: S/P bariatric surgery stable Continue current management, continue weight loss program Obesity Continue current management, continue weight loss program Stable preDM Ozempic 3 month supply Continue current management, continue weight loss program stable [x] Protein goal of 1g protein per 1 kg of ideal body weight: 75 grams [x] Patient advised to maintain a food/exercise/behavior diary until next physician visit. Pt to bring the completed diary to next visit Other: Physician Diet Recommendations given to patient See Follow up Section of today's encounter for next visit and additional scheduling orders I spend a total of 20 minutes on the same day of the visit in discussing/counseling the patient regarding the diet and exercise in order to lose weight.Education on the meal plan and 7 rules of eating is provided. Meal prep is encouraged as a foundation of the meal plan. Food journal is encouraged as a feedback system. Exercise and its role in weight loss is explained. Weight loss medications role in weight loss journey is discussed preDM Is associated with obesity and weight loss is discussed as a treatment option for preDM Full chart review was performed.Clinical documentation is updated and completed. documented in this encounter [facility] 07-07-2022 Note [facility] POST-OP WEIGHT LOSS MANAGEMENT PROGRESS NOTE FOLLOW UP HPI, PHYSICAL EXAMINATION & PLAN HPI: Patient here today for follow up for weight loss management following surgical weight loss Weight trend since last visit: lost 5 lbs over 1 m stable This patient's excess weight is causing the following co-morbid conditions at this time: Other preDM Plan Physical Examination: BP 122/82 Pulse 84 Resp 14 Ht 5' 3.25 (1.607 m) Wt 183 lb 12.8 oz (83.4 kg) BMI 32.30 kg/m? General: This patient is alert and oriented X3 General: This patient is awake, alert, and oriented, and is in no apparent distress. Extremities: No cyanosis, clubbing or edema/ No calf tenderness/No restrictions of movement, is ambulatory without assistance. Neurological: Intact x 4 extremities, no focal deficits notes. Skin: No rashes or lesions noted. Social History: This patient is unaccompanied for the evaluation today. She does not smoke, and does not drink alcohol. Current Diet This patient?s current diet is: 80% meal plan Her diet contains adequate amounts of protein, adequate amounts of healthy fats, adequate amounts of green, leafy vegetables, and adequate amounts of fruits. Her comfort foods include:sweets Current Activity This patient currently does exercise for 45 Minutes per session, 4 times per week, including the following: walking. Current Eating Behaviors This patients demonstrates the following behaviors as they relate to her eating: structured She eats approximately 5-6 times per day. Her last meal/snack was at 6 am/pm. Progress Made Towards Goals: 3 month weight goal: 10 6 month weight goal: 20 12 month weight goal: 30 Plan: S/P bariatric surgery stable Continue current management, continue weight loss program Obesity Continue current management, continue weight loss program Stable Ozempic next dose Focus on meal structure and meal composition preDM Continue current management, continue weight loss program stable Ozempic 1 mg [x] Protein goal of 1g protein per 1 kg of ideal body weight: 75 grams [x] Patient advised to maintain a food/exercise/behavior diary until next physician visit. Pt to bring the completed diary to next visit Other: Physician Diet Recommendations given to patient See Follow up Section of today's encounter for next visit and additional scheduling orders I spent a total of 20 minutes on the day of the visit discussing/counseling the patient regarding the post operative management listed below. 1. Adherence to nutrient-dense foods,containing sufficient amounts of lean proteins and fibers. Fluid 30 minutes before or after meals. 1 cup is the maximum meal size. 2. Physical activity - aerobic physical activity 150-300 min/wk and strength training 2-3 times per wk. 3.preDM Is associated with obesity and weight loss/ weight maintenance is discussed as a treatment option for HTN preDM 4. Weight maintenance after bariatric surgery discussed [facility] 2022 Note ORIGINAL HISTORY: Lung nodule COMPARISON: 02 December 2021 TECHNIQUE: Chest CT with sagittal and coronal reconstructions. This exam was performed according to our departmental dose optimization program, and includes the following measures where applicable: automated exposure control, adjustment of the mAs and/or kVp according to patient size and/or exam, and an iterative reconstruction algorithm. FINDINGS: There is a 5 mm left upper lobe nodule image 31. There is a 6 mm soft tissue nodule in the right upper lobe along the minor fissure, image 35. There are a few scattered smaller nodules as well. The lungs are otherwise clear. There is mild mediastinal lymphadenopathy, with a 2 cm subcarinal node and a right pretracheal node measuring about 16 mm in short axis. No hilar or axillary lymphadenopathy is seen. Chest wall structures are unremarkable. There is bariatric surgery. IMPRESSION: No significant interval change. Interpreted by: Winston Rogers MD Preliminary Report By: Winston Rogers MD Electronically signed By Winston Rogers MD Dictated Date: 2022 12:40:35 PM Prelim Date: 2022 12:43:51 PM Sign Date: 2022 12:43:51 PM [facility] Note ORIGINAL HISTORY: Lung nodule COMPARISON: 02 December 2021 TECHNIQUE: Chest CT with sagittal and coronal reconstructions. This exam was performed according to our departmental dose optimization program, and includes the following measures where applicable: automated exposure control, adjustment of the mAs and/or kVp according to patient size and/or exam, and an iterative reconstruction algorithm. FINDINGS: There is a 5 mm left upper lobe nodule image 31. There is a 6 mm soft tissue nodule in the right upper lobe along the minor fissure, image 35. There are a few scattered smaller nodules as well. The lungs are otherwise clear. There is mild mediastinal lymphadenopathy, with a 2 cm subcarinal node and a right pretracheal node measuring about 16 mm in short axis. No hilar or axillary lymphadenopathy is seen. Chest wall structures are unremarkable. There is bariatric surgery. IMPRESSION: No significant interval change. Interpreted by: Winston Rogers MD Preliminary Report By: Winston Rogers MD Electronically signed By Winston Rogers MD Dictated Date: 2022 12:40:35 PM Prelim Date: 2022 12:43:51 PM Sign Date: 2022 12:43:51 PM Ordering Provider: [facility] 06-07-2022 Note [facility] POST-OP WEIGHT LOSS MANAGEMENT PROGRESS NOTE FOLLOW UP HPI, PHYSICAL EXAMINATION & PLAN HPI: Patient here today for follow up for weight loss management following surgical weight loss Weight trend since last visit: lost 3 lbs over 1 m stable This patient's excess weight is causing the following co-morbid conditions at this time: GERD Plan Physical Examination: BP (!) 131/92 Pulse 75 Resp 14 Ht 5' 3.25 (1.607 m) Wt 188 lb (85.3 kg) BMI 33.04 kg/m? General: This patient is alert and oriented X3 General: This patient is awake, alert, and oriented, and is in no apparent distress. Extremities: No cyanosis, clubbing or edema/ No calf tenderness/No restrictions of movement, is ambulatory without assistance. Neurological: Intact x 4 extremities, no focal deficits notes. Skin: No rashes or lesions noted. Social History: This patient is unaccompanied for the evaluation today. She does not smoke, and does not drink alcohol. Current Diet This patient?s current diet is: 80% meal plan Her diet contains adequate amounts of protein, adequate amounts of healthy fats, adequate amounts of green, leafy vegetables, and adequate amounts of fruits. Her comfort foods include:none Current Activity This patient currently does exercise for 30 Minutes per session, 4 times per week, including the following: walking. Current Eating Behaviors This patients demonstrates the following behaviors as they relate to her eating: structured She eats approximately 3-4 times per day. Her last meal/snack was at 6 am/pm. Progress Made Towards Goals: 3 month weight goal: 20 6 month weight goal: 30 12 month weight goal: 40 Plan: S/P bariatric surgery stable Continue current management, continue weight loss program Obesity Continue current management, continue weight loss program Stable Weight regain after bariatric surgery Focus on meal planning, preparation, portions control and meal composition Ozempic 0.5 mg good tolerance Decreased appetite [x] Protein goal of 1g protein per 1 kg of ideal body weight: 75 grams [x] Patient advised to maintain a food/exercise/behavior diary until next physician visit. Pt to bring the completed diary to next visit Other: Physician Diet Recommendations given to patient See Follow up Section of today's encounter for next visit and additional scheduling orders I spend a total of 20 minutes on the same day of the visit in discussing/counseling the patient regarding the diet and exercise in order to lose weight.Education on the meal plan and 7 rules of eating is provided. Meal prep is encouraged as a foundation of the meal plan. Food journal is encouraged as a feedback system. Exercise and its role in weight loss is explained. Weight loss medications role in weight loss journey is discussed GERD Is associated with obesity and weight loss is discussed as a treatment option for GERD Full chart review was performed.Clinical documentation is updated and completed. 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) Nephrolithiasis (815625128) Obesity (2998671868) Post-menopausal (464070999) Pre-diabetes (7280073695) Preoperative evaluation of a medical condition to rule out surgical contraindications (TAR required) (631750657) Restless legs (24897305) Right arm pain (304395447) S/P gastric bypass (1329799516) Screening for cardiovascular condition (620694587) Somatic dysfunction of upper extremity (5165695383) Tobacco non-user (492040131) Viral syndrome (70257422) MEDICATIONS: Active Inpt Meds: None Active PRN Meds: None One Time Meds: None Active IV Meds: Lactated Ringers Infusion 1,000 mL (LR 1,000 mL) Start: 03/03/22 7:52:00 EDT, Rate: 50 mL/hr, 03/03/22 7:52:00 EDT ALLERGIES: (1) NKA FAMILY HISTORY: SOCIAL HISTORY: PHYSICAL EXAM: VITALS: [id number](kg) 03/03 07:5536.7126/79776825SZ09/23 79.5 24 Hr Tmax: 36.7 at 03/03 07:55 36 Hr Tmax: 36.7 at 03/03 07:55 Vital Signs are the last 5 in the past 48 hours. Weights display the last 5 within 7 days. Initial Wt: 03/03 79.5 kg 175 lb Current Wt: 03/03 79.5 kg 175 lb GENERAL: HEENT: CARDIOVASCULAR: RESPIRATORY: ABDOMEN: EXREMETIES: NEUROLOGICAL: PSYCHIATRIC: LABS: No 36hr Lab Data DIAGNOSTICS: IMPRESSION: PLAN: History and Physical Update I have examined the patient; reviewed the H&P and there are no changes to the H&P unless noted below. Future Appointments Appointment Date:04/04/2022 08:00:00 AM Scheduled Provider:FRANKY PEARSON DO Location:[facility] Appointment Type: OV Appointment Date:05/30/2022 09:00:00 AM Scheduled Provider:FRANKY PEARSON DO Location:[facility] Appointment Type: OV Future Scheduled Tests Laboratory* Vitamin B1 (Thiamine), Whole Blood 08/22/21 * Ferritin 11/22/21 * Ferritin 08/22/21 * Folate Level 11/22/21 * Folate Level 08/22/21 * Vitamin B12 Level 11/22/21 * Vitamin B12 Level 08/22/21 * A1C Hemoglobin 02/22/22 * A1C Hemoglobin 08/22/21 * Complete Blood Count 02/22/22 * Complete Blood Count 08/22/21 * Lipid Profile 08/22/21 * Vitamin D Level 08/22/21 * Zinc Level 11/22/21 * Zinc Level 08/22/21 * Complete Metabolic Panel 02/22/22 * Complete Metabolic Panel 08/22/21 * MISC Lab Send out (Blood Specimens) 11/22/21 Radiology* US Breast Right Limited 08/08/22 * CT Thorax w/o Contrast 06/07/22 * MA Mammogram Diagnostic Bilateral w/o Juma 01/01/22 [facility] 09-23-2022 Hospital Discharge instructions Patient Education 03/03/2022 09:18:16 Monitored Anesthesia Care, Care After Monitored Anesthesia Care, Care After These instructions provide you with information about caring for yourself after your procedure. Your health care provider may also give you more specific instructions. Your treatment has been plannedaccording to current medical practices, but problems sometimes occur. Call your health care provider if you have any problems or questions after your procedure. What can I expect after the procedure? After your procedure, you may: Feel sleepy for several hours. Feel clumsy and have poor balance for several hours. Feel forgetful about what happened after the procedure. Have poor judgment for several hours. Feel nauseous or vomit. Have a sore throat if you had a breathing tube during the procedure. Follow these instructions at home: For at least 24 hours after the procedure: Have a responsible adult stay with you. It is important to have someone help care for you until youare awake and alert. Rest as needed. Do not: ?Participate in activities in which you could fall or become injured. ?Drive. ?Use heavy machinery. ?Drink alcohol. ?Take sleeping pills or medicines that cause drowsiness. ?Make important decisions or sign legal documents. ?Take care of children on your own. Eating and drinking Follow the diet that is recommended by your health care provider. If you vomit, drink water, juice, or soup when you can drink without vomiting. Make sure you have little or no nausea before eating solid foods. General instructions Take itou-hcd-cifyowo and prescription medicines only as told by your health care provider. If you have sleep apnea, surgery and certain medicines can increase your risk for breathing problems. Follow instructions from your health care provider about wearing your sleep device: ?Anytime you are sleeping, including during daytime naps. ?While taking prescription pain medicines, sleeping medicines, or medicines that make you drowsy. If you smoke, do not smoke without supervision. Keep all follow-up visits as told by your health care provider. This is important. Contact a health care provider if: You keep feeling nauseous or you keep vomiting. You feel light-headed. You develop a rash. You have a fever. Get help right away if: You have trouble breathing. Summary For several hours after your procedure, you may feel sleepy and have poor judgment. Have a responsible adult stay with you for at least 24 hours or until you are awake and alert. This information is not intended to replace advice given to you by your health care provider. Make sure you discuss any questions you have with your health care provider. Document Released: 09/17/2016 Document Revised: 08/26/2018 Document Reviewed: 09/17/2016 [employer] Patient Education 2020 [employer]. 03/03/2022 09:18:09 Colonoscopy, Adult, Care After Colonoscopy, Adult, Care After This sheet gives you information about how to care for yourself after your procedure. Your health care provider may also give you more specific instructions. If you have problems or questions, contact your health care provider. What can I expect after the procedure? After the procedure, it is common to have: A small amount of blood in your stool for 24 hours after the procedure. Some gas. Mild abdominal cramping or bloating. Follow these instructions at home: General instructions For the first 24 hours after the procedure: ?Do not drive or use machinery. ?Do not sign important documents. ?Do not drink alcohol. ?Do your regular daily activities at a slower pace than normal. ?Eat soft, okhi-yk-imoqjv foods. Take hthi-mbl-tquzudu or prescription medicines only as told by your health care provider. Relieving cramping and bloating Try walking around when you have cramps or feel bloated. Apply heat to your abdomen as told by your health care provider. Use a heat source that your healthcare provider recommends, such as a moist heat pack or a heating pad. ?Place a towel between your skin and the heat source. ?Leave the heat on for 20 30 minutes. ?Remove the heat if your skin turns bright red. This is especially important if you are unable to feel pain, heat, or cold. You may have a greater risk of getting burned. Eating and drinking Drink enough fluid to keep your urine pale yellow. Resume your normal diet as instructed by your health care provider. Avoid heavy or fried foods thatare hard to digest. Avoid drinking alcohol for as long as instructed by your health care provider. Contact a health care provider if: You have blood in your stool 2 3 days after the procedure. Get help right away if: You have more than a small spotting of blood in your stool. You pass large blood clots in your stool. Your abdomen is swollen. You have nausea or vomiting. You have a fever. You have increasing abdominal pain that is not relieved with medicine. Summary After the procedure, it is common to have a small amount of blood in your stool. You may also have mild abdominal cramping and bloating. For the first 24 hours after the procedure, do not drive or use machinery, sign important documents, or drink alcohol. Contact your health care provider if you have a lot of blood in your stool, nausea or vomiting, a fever, or increased abdominal pain. This information is not intended to replace advice given to you by your health care provider. Make sure you discuss any questions you have with your health care provider. Document Released: 01/09/2005 Document Revised: 03/20/2018 Document Reviewed: 08/08/2016 [employer] Patient Education [employer]. Follow Up Care 01/09/2022 13:05:28 With:KRYSTINA PUGH MD Address: [address] [facility] [address] [place] [phone] When: Unknown Comments:Follow-up as needed [facility] 09-23-2022 Summary of episode note Discharge Instructions Thank you for allowing [facility] to assist you with your healthcare needs. The following is importantdischarge information regarding your hospital visit. Your Care Team FRANKY PEARSON DO What to do next Scheduled Follow-Up Appointments Appointment Type When With Where Contact InformationPC OV 04/04/2022 08:00 AM EDT FRANKY PEARSON DO [address] [id number] OV 05/30/2022 09:00 AM EST FRANKY PEARSON DO [address] [id number] Follow Up Appointments Follow Up with KRYSTINA PUGH MD When Why: Follow-up as needed Where: [address] [facility] [address] [place] [phone] Allergies NKA Medications Please ask your primary doctor or pharmacist before taking any other medication not listed, including over the counter drugs, herbal medications, vitamins and or supplements as they may interact withyour home medications. What How Much When Why Instructions Last Dose Unchanged biotin (biotin 1000 mcg oral tablet) 4 tab(s) by mouth Once a day Unchanged buPROPion (buPROPion 100 mg oral tablet) 1 tab(s) by mouth Three (3) times a day Duration: 90 Days Unchanged calcium gluconate (calcium gluconate 500 mg oral tablet) 1 tab(s) by mouth Three (3) times a day Unchanged cholecalciferol (Vitamin D3) 4,000 unit(s) by mouth Every day Unchanged citalopram (citalopram 20 mg oral tablet) 1 tab(s) by mouth Once a day Duration: 90 Days Unchanged cyanocobalamin (Vitamin B12 500 mcg sublingual tablet) 1 tab(s) under the tongue Once a day Unchanged estradiol (estradiol 0.5 mg oral tablet) 1 tab(s) by mouth Once a day Unchanged LORazepam (LORazepam 0.5 mg oral tablet) 1 tab(s) by mouth Once a day as needed for as needed for anxiety Anxiety Duration: 30 Days oarrs appropriate, to be filled on or after Unchanged metFORMIN (MetFORMIN (Eqv-Glucophage XR) 500 mg oral tablet, EXTENDED RELEASE) 1 tab(s) by mouth Two (2) times a day Duration: 90 Days Unchanged multivitamin (Multivitamin) 1 tab(s) by mouth Two (2) times a day Unchanged omeprazole (omeprazole 20 mg oral delayed release capsule) 1 cap by mouth Once a day Duration: 90 Days Unchanged ondansetron (ondansetron 4 mg oral tablet, disintegrating) 1 tab(s) by mouth Every 6 hours as needed for Nausea/Vomiting Unchanged pramipexole (pramipexole 0.125 mg oral tablet) 1 tab(s) by mouth Daily at bedtime Duration: 90 Days Please take this list to your next doctor s visit. Bring all medications you take, including over the counter medications, herbals and other supplements with you to your doctor s visit. Patients and families are reminded to discard old lists and to update any records with all medication providers or retail pharmacies. Education Materials Monitored Anesthesia Care, Care After These instructions provide you with information about caring for yourself after your procedure. Your health care provider may also give you more specific instructions. Your treatment has been plannedaccording to current medical practices, but problems sometimes occur. Call your health care provider if you have any problems or questions after your procedure. What can I expect after the procedure? After your procedure, you may: Feel sleepy for several hours. Feel clumsy and have poor balance for several hours. Feel forgetful about what happened after the procedure. Have poor judgment for several hours. Feel nauseous or vomit. Have a sore throat if you had a breathing tube during the procedure. Follow these instructions at home: For at least 24 hours after the procedure: Have a responsible adult stay with you. It is important to have someone help care for you until youare awake and alert. Rest as needed. Do not: ? Participate in activities in which you could fall or become injured. ? Drive. ? Use heavy machinery. ? Drink alcohol. ? Take sleeping pills or medicines that cause drowsiness. ? Make important decisions or sign legal documents. ? Take care of children on your own. Eating and drinking Follow the diet that is recommended by your health care provider. If you vomit, drink water, juice, or soup when you can drink without vomiting. Make sure you have little or no nausea before eating solid foods. General instructions Take xzhv-zli-zxiqxju and prescription medicines only as told by your health care provider. If you have sleep apnea, surgery and certain medicines can increase your risk for breathing problems. Follow instructions from your health care provider about wearing your sleep device: ? Anytime you are sleeping, including during daytime naps. ? While taking prescription pain medicines, sleeping medicines, or medicines that make you drowsy. If you smoke, do not smoke without supervision. Keep all follow-up visits as told by your health care provider. This is important. Contact a health care provider if: You keep feeling nauseous or you keep vomiting. You feel light-headed. You develop a rash. You have a fever. Get help right away if: You have trouble breathing. Summary For several hours after your procedure, you may feel sleepy and have poor judgment. Have a responsible adult stay with you for at least 24 hours or until you are awake and alert. This information is not intended to replace advice given to you by your health care provider. Make sure you discuss any questions you have with your health care provider. Document Released: 09/17/2016 Document Revised: 08/26/2018 Document Reviewed: 09/17/2016 [employer] Patient Education 2020 [employer] Colonoscopy, Adult, Care After This sheet gives you information about how to care for yourself after your procedure. Your health care provider may also give you more specific instructions. If you have problems or questions, contact your health care provider. What can I expect after the procedure? After the procedure, it is common to have: A small amount of blood in your stool for 24 hours after the procedure. Some gas. Mild abdominal cramping or bloating. Follow these instructions at home: General instructions For the first 24 hours after the procedure: ? Do not drive or use machinery. ? Do not sign important documents. ? Do not drink alcohol. ? Do your regular daily activities at a slower pace than normal. ? Eat soft, hmiw-ap-hdduau foods. Take hvnt-fan-tbrlxwv or prescription medicines only as told by your health care provider. Relieving cramping and bloating Try walking around when you have cramps or feel bloated. Apply heat to your abdomen as told by your health care provider. Use a heat source that your healthcare provider recommends, such as a moist heat pack or a heating pad. ? Place a towel between your skin and the heat source. ? Leave the heat on for 20 30 minutes. ? Remove the heat if your skin turns bright red. This is especially important if you are unable to feel pain, heat, or cold. You may have a greater risk of getting burned. Eating and drinking Drink enough fluid to keep your urine pale yellow. Resume your normal diet as instructed by your health care provider. Avoid heavy or fried foods thatare hard to digest. Avoid drinking alcohol for as long as instructed by your health care provider. Contact a health care provider if: You have blood in your stool 2 3 days after the procedure. Get help right away if: You have more than a small spotting of blood in your stool. You pass large blood clots in your stool. Your abdomen is swollen. You have nausea or vomiting. You have a fever. You have increasing abdominal pain that is not relieved with medicine. Summary After the procedure, it is common to have a small amount of blood in your stool. You may also have mild abdominal cramping and bloating. For the first 24 hours after the procedure, do not drive or use machinery, sign important documents, or drink alcohol. Contact your health care provider if you have a lot of blood in your stool, nausea or vomiting, a fever, or increased abdominal pain. This information is not intended to replace advice given to you by your health care provider. Make sure you discuss any questions you have with your health care provider. Document Released: 01/09/2005 Document Revised: 03/20/2018 Document Reviewed: 08/08/2016 [employer] Patient Education 2020 [employer]. Additional Information VACCINATE! IT SAVES LIVES! Members of the community who have not yet received the COVID-19 vaccine and would like to receive it can visit one of [facility] vaccine clinics. There are many vaccine clinic locations within the [facility]. For locations and available times, please visit [email or web address].[place].gov/. It is important to note that some COVID mobile vaccine clinics are held outdoors and may be canceled in rainy or stormy conditions. To learn more about pediatric vaccinations (ages 5-11), we invite you to visit the [facility] webpage. [email or web address] [email or web address]/[email or web address]-Dpykfijzdx-Bhrzn-Trc stions.htmlTo learn more about the COVID-19 vaccine, we invite you to visit the [employer] website for a list of frequently asked questions. [email or web address] _[email or web address]-Questions.pdf [facility] Patient Portal Access Instructions: Stay connected with your healthcare team and access your personal medical information anytime with the [employer] Patient Portal.If you would like a full copy of your medical records, please contact the [facility] Medical Records Department, Sunday through Sunday between 8a.m. and 4:30p.m. Please follow the directions below to access the portal: 1.Access the email account you provided upon registration to the [facility].2.Look for an invitation email from [facility].3.Open the email and access the invitation link: Accept Invitation to [facility]4.Fill in the required mckenzie to create your account. Sign into www.[employer] with your username and password that you created in the above steps to stay up to date. You can then view a summary of results, a summary of your visits, and the ability to download your summaries to your computer or send the information securely to a physician. Remember that your healthcare information is confidential, so carefully consider who you will allow to register on the [employer] Patient Portal for access to your information. You can also access the [employer] Patient Portal on the [employer] ramírez. Simply click on Health Records under MynewMD and then click on the [employer] logo. HOW TO SAFELY DISPOSE OF PRESCRIPTION MEDICATIONS Please use one of the following methods to safely dispose of your unused medications. 1.Use a drug disposal kit: the drug disposal pouch allows you to safely discard your old and unuseddrugs. Ask your nurse to give you one when you are discharged.2.Visit a local take-back location: Many local pharmacies and police departments have programs that collect old and unwanted prescriptiondrugs. Call your local pharmacy or go to http://[employer].Divided/2O9Hj1s to find one close to you.3.Make use of household items: Use cat litter or old coffee grounds to dispose medications if other options arenot available. Mix your drugs with these household products, seal them in an airtight container andthrow it into the garbage. Call [facility]: [phone] to be sure your drugs can be disposed of in this way. Some medicines may require a different approach.4.Never flush your medications down the toilet. IF YOU HAVE BEEN PRESCRIBED AN OPIOID FOR PAIN If you have been prescribed an opioid (such as hydrocodone, oxycodone or morphine), it is critical to understand the possible side effects and risks of opioid pain medications. Even when taken as directed, opioids can have several side effects including: Tolerance, meaning you might need to take more of a medication for the same pain relief. Nausea, vomiting and/or constipation. Sleepiness, dizziness, dry mouth, confusion, depression or itching. Physical dependence, meaning you have withdrawal symptoms when a medication is stopped, can develop within a few days. KNOW YOUR RESPONSIBILITIES It is important to know exactly how much and how often to take the opioid pain medications you are prescribed. Never take opioids in higher amounts or more often than prescribed. Do not combine opioids with alcohol or other drugs that cause drowsiness, such as benzodiazepines, also known as benzos, including diazepam and alprazolam, muscle relaxants or sleep aids. Never sell or share prescription opioids. This is illegal. Store opioids in a secure place and out of reach of others (including children, family, friends and visitors). The last page of this document has been signed and retained as a CHART COPY. Signatures Patient Education Materials Monitored Anesthesia Care, Care After Colonoscopy, Adult, Care After Medication Leaflets My discharge plan and instructions have been reviewed and explained to me and I,AMANDA GRUBBS understand my current condition and have read and understand these discharge instructions. I have received a written copy of the plan/instructions. If I have questions, I am aware that I should contact my d octor. Patient/Spinner Iron Signature: Date/Time: Relationship to Patient: Witness Name/Signature: Date/Time: [facility]09-23-2022 Anesthesiology Consult note Patient: AMANDA GRUBBS Age: 51 years Sex: Female : 1970 Associated Diagnoses: None Author: DENVER GUTIERREZ APRN-SYSTEMS SOFTWARE ENGINEER Assessment Postanesthesia assessment Vitals: Vital signs from flowsheet : Vital Signs 03/03/2022 9:10 EDT Heart Rate Monitored 78 bpm bpm Respiratory Rate 26 br/min br/min 03/03/2022 9:05 EDT Heart Rate Monitored 74 bpm bpm Respiratory Rate 21 br/min br/min Systolic Blood Pressure NBP 128 mmHg mmHg Diastolic Blood Pressure NBP 77 mmHg mmHg 03/03/2022 9:00 EDT Heart Rate Monitored 73 bpm bpm Respiratory Rate 19 br/min br/min Systolic Blood Pressure NBP 154 mmHg mmHg Diastolic Blood Pressure NBP 127 mmHg mmHg 03/03/2022 8:55 EDT Heart Rate Monitored 68 bpm bpm Respiratory Rate 15 br/min br/min Systolic Blood Pressure NBP 145 mmHg mmHg Diastolic Blood Pressure NBP 87 mmHg mmHg 03/03/2022 7:55 EDT Temperature Axillary 36.7 DegC Heart Rate Monitored 68 bpm Respiratory Rate 16 br/min Systolic Blood Pressure NBP 126 mmHg Diastolic Blood Pressure NBP 78 mmHg , Measurements from flowsheet . Mental status: alert & oriented x 4. Respiratory function: respirations are non-labored. Respiratory support: none. CV function: Normal rate. Cardiovascular support: none. Pain. Nausea status: see nursing documentation of medications. Postoperative hydration status: within normal limits. Digitally Signed by DENVER GUTIERREZ on 03/03/2022 09:12 AM [facility]09-23-2022 Anesthesiology Consult note Patient: AMANDA GRUBBS Age: 51 years Sex: Female : 1970 Associated Diagnoses: None Author: DENVER GUTIERREZ Preoperative Information Time of last solid food intake: 03/03/2022 00:00:00 Time of last clear liquid intake: 03/03/2022 06:00:00 Anesthesia history Patient's history: negative. Family's history: negative. Health Status Allergies: Allergic Reactions (Selected) NKA, Allergies (1) ActiveReaction NKANone Documented Current medications: (Selected) Inpatient Medications Ordered LR 1,000 mL: 50 mL/hr, Intravenous Prescriptions Prescribed LORazepam 0.5 mg oral tablet: 0.5 mg, 1 tab(s), Oral, qDay, for 30 day(s), oarrs appropriate, to befilled on or after 03/07/22, PRN: as needed for anxiety, 30 tab(s), 2 Refill(s) MetFORMIN (Eqv-Glucophage XR) 500 mg oral tablet, EXTENDED RELEASE: 500 mg, 1 tab(s), Oral, BID, for 90 day(s), 180 tab(s), 1 Refill(s) buPROPion 100 mg oral tablet: 100 mg, 1 tab(s), Oral, TID, for 90 day(s), 270 tab(s), 1 Refill(s) citalopram 20 mg oral tablet: 20 mg, 1 tab(s), Oral, qDay, for 90 day(s), 90 tab(s), 0 Refill(s) estradiol 0.5 mg oral tablet: 0.5 mg, 1 tab(s), Oral, qDay, 90 tab(s), 1 Refill(s) omeprazole 20 mg oral delayed release capsule: 20 mg, 1 cap(s), Oral, qDay, for 90 day(s), 90 cap(s), 1 Refill(s) ondansetron 4 mg oral tablet, disintegratin mg, 1 tab(s), Oral, q6h, PRN: Nausea/Vomiting, 10 tab(s), 0 Refill(s) pramipexole 0.125 mg oral tablet: 0.125 mg, 1 tab(s), Oral, qHS, for 90 day(s), 90 tab(s), 1 Refill(s) Documented Medications Documented Multivitamin: 1 tab(s), Oral, BID, 0 Refill(s) Vitamin B12 500 mcg sublingual tablet: 500 mcg, 1 tab(s), Sublingual, qDay, 0 Refill(s) Vitamin D3: 4,000 unit(s), 1 tab(s), Oral, Daily, 0 Refill(s) biotin 1000 mcg oral tablet: 4,000 mcg, 4 tab(s), Oral, qDay, 0 Refill(s) calcium gluconate 500 mg oral tablet: 500 mg, 1 tab(s), Oral, TID, 0 Refill(s), Medications (1) Active Scheduled: (0) Continuous: (1) Lactated Ringers 1,000 mL 1,000 mL, Intravenous, 50 mL/hr PRN: (0) Problem list: Medical Anxiety / SNOMED CT 76954881 / Confirmed Cervical cancer screening / SNOMED CT 3485767348 / Confirmed Abnormal screening computed tomography (CT) of lung / SNOMED CT 0168310581 / Confirmed GERD (gastroesophageal reflux disease) / SNOMED CT 659473051 / Confirmed S/P gastric bypass / SNOMED CT 9826137168 / Confirmed Immunization due / SNOMED CT 008341699 / Confirmed Insomnia / SNOMED CT 154945884 / Confirmed Nephrolithiasis / SNOMED CT 819106331 / Confirmed Major depression in remission / SNOMED CT 46308324 / Confirmed Abnormal mammogram / SNOMED CT 745690080 / Confirmed Hot flashes due to menopause / SNOMED CT 482437966 / Confirmed Obesity / SNOMED CT 5646202939 / Confirmed Right arm pain / SNOMED CT 823606309 / Confirmed Preoperative evaluation of a medical condition to rule out surgical contraindications (TAR required) / SNOMED CT 717851770 / Confirmed Screening for cardiovascular condition / SNOMED CT 070191650 / Confirmed Breast cancer screening / SNOMED CT 502090110 / Confirmed Colon cancer screening / SNOMED CT 229956838 / Confirmed Encounter for well adult exam with abnormal findings / SNOMED CT 361492361 / Confirmed Post-menopausal / SNOMED CT 753087897 / Confirmed Pre-diabetes / SNOMED CT 2477837154 / Confirmed Restless legs / SNOMED CT 15725383 / Confirmed Somatic dysfunction of upper extremity / SNOMED CT 2339492232 / Confirmed Tobacco non-user / SNOMED CT 684868556 / Confirmed Viral syndrome / SNOMED CT 24817854 / Confirmed, Active Problems (24) Abnormal mammogram Abnormal screening computed tomography (CT) of lung Anxiety Breast cancer screening Cervical cancer screening Colon cancer screening Encounter for well adult exam with abnormal findings GERD (gastroesophageal reflux disease) Hot flashes due to menopause Immunization due Insomnia Major depression in remission Nephrolithiasis Obesity Post-menopausal Pre-diabetes Preoperative evaluation of a medical condition to rule out surgical contraindications (TAR required) Restless legs Right arm pain S/P gastric bypass Screening for cardiovascular condition Somatic dysfunction of upper extremity Tobacco non-user Viral syndrome Histories Past Medical History: No active or resolved past medical history items have been selected or recorded. Family History: No family history items have been selected or recorded. Procedure history: Gastric restrictive procedure, with gastric bypass for morbid obesity; with small intestine reconstruction to limit absorption (77234). Endometrial ablation (288421828). Diagnostic laparoscopy of female pelvis (525679015). Hysterectomy (012580360). section (47208836). Comments: 03/03/2022 7:52 Rhonda Saxena RN x2 Cholecystectomy (14809698). Colonoscopy (649978835). Comments: 03/03/2022 7:53 Rhonda Saxena RN x2 Cystourethroscopy, with ureteroscopy and/or pyeloscopy; with removal or manipulation of calculus (ureteral catheterization is included) (39404). Entire finger (561071056). Comments: 03/03/2022 7:53 EDT - Rhonda Swenson RN right pinky Social History Social & Psychosocial Habits Alcohol 06/27/2019 Use: Current Frequency: 1-2 times per month Substance Abuse 06/27/2019 Use: Never Tobacco 06/27/2019 Tobacco Use: Never (less than 100 in l Home/Environment 03/03/2022 Domestic Concerns None Living situation: Home/Independent Primary Audio Visual Specialist: Self Current Home Treatments None Special Services and Community Resources None Spouse Name Gilles Marital Status of Patient if Patient Independent Adult: Nutrition/Health 03/03/2022 Type of diet: Regular Appetite Good Eating Difficulties None Caffeine intake amount: None . Physical Examination Vital Signs 03/03/2022 9:00 EDT Heart Rate Monitored 73 bpm bpm Respiratory Rate 19 br/min br/min 03/03/2022 8:55 EDT Heart Rate Monitored 68 bpm bpm Respiratory Rate 15 br/min br/min Systolic Blood Pressure NBP 145 mmHg mmHg Diastolic Blood Pressure NBP 87 mmHg mmHg 03/03/2022 7:55 EDT Temperature Axillary 36.7 DegC Heart Rate Monitored 68 bpm Respiratory Rate 16 br/min Systolic Blood Pressure NBP 126 mmHg Diastolic Blood Pressure NBP 78 mmHg Vital Signs(last 24 hrs) Last Charted Temp Cvmrdswp01.7 DegC (MAR 03 07:55) Heart Rate Acwgulcmq43 bpm (MAR 03 09:00) Resp Rate 19 br/min (MAR 03 09:00) OHM277 mmHg (MAR 03 08:55) DBP87 mmHg (MAR 03 08:55) BMI30.07 (MAR 03 07:55) Measurements from flowsheet : Measurements 03/03/2022 7:55 EDT Height 162.6 cm Admission Weight 79.5 kg Weight Method Stated [place] Body Weight 54.74 kg BSA Admission 1.85 Body Mass Index 30.07 kg/m2 Pain assessment: Pain Assessment 03/03/2022 7:55 EDT Primary Pain Intensity 0 Primary Pain Nonverbal Response Appears restful Pain Scale Type 0-10 Pain scale . General: Alert and oriented. Airway: Normal temporomandibular joint mobility, Normal mouth, Normal neck range of motion. Mallampati classification: III (soft palate, base of uvula visible). Dentition Evaluation: Denies loose/chipped teeth. Respiratory: Respirations are non-labored. Cardiovascular: Normal rate. Neurologic: Alert, Oriented. Review / Management Results review: No qualifying data available , Lab results 03/03/2022 9:00 EDT Heart Rate Monitored 73 bpm bpm Respiratory Rate 19 br/min br/min Oxygen Saturation 99.4 % % 03/03/2022 8:59 EDT lidocaine 40 mg mg propofol 120 mg mg 03/03/2022 8:58 EDT SN - PP - Body Position Lateral Right Side-up Standard Intra-op 03/03/2022 8:56 EDT SN - CTm - Anesthesia Start Time Anesthesia Start 03/03/2022 8:56 EDT SN - GCD - Post-operative Diagnosis SCREENING SN - GCD - Case Level OPD Level 3 03/03/2022 8:56 EDT SN - Proc - Anesthesia Type MAC SN - Proc - EBL 0 mL SN - Proc - Actual Procedure COLONOSCOPY 03/03/2022 8:55 EDT Heart Rate Monitored 68 bpm bpm Respiratory Rate 15 br/min br/min Systolic Blood Pressure NBP 145 mmHg mmHg Diastolic Blood Pressure NBP 87 mmHg mmHg 03/03/2022 8:53 EDT SN - CAt - Case Attendee SN - CAt - Case Attendee SN - CAt - Case Attendee SN - CAt - Case Attendee SN - CAt - Case Attendee SN - CAt - Case Attendee SN - CAt - Case Attendee SN - CAt - Case Attendee SN - CAt - Role Performed Primary Surgeon SN - CAt - Role Performed Supervisor [employer] Cash[employer] 1 SN - CAt - Role Performed SYSTEMS SOFTWARE ENGINEER SN - CAt - Role Performed Test Fixture Designer 03/03/2022 8:53 EDT [place] History and Physical 03/03/2022 8:09 EDT Continuous IV Infusions LR Hand Right 03/03/2022 22 gauge Peripheral IV Activity: Insert new site Peripheral IV Dressing Condition: Clean, Dry, Intact Peripheral IV Dressing Activity: Applied, Transparent dressing Peripheral IV Line Status/Patency: Continuous infusion, Good blood return Peripheral IV Site Condition: No complications Peripheral IV Equipment: Extension set, PRN Adaptor Peripheral IV Number of Attempts: 1 03/03/2022 8:08 EDT Lactated Ringers Injection Begin Bag 1,000 mL mL 03/03/2022 7:55 EDT Designated Person #1 We May Share PHI Gilles Grubbs [phone] Designated Person #1 Relationship Spouse Designated Person #2 We May Share PHI Willian Grubbs [phone] Designated Person #2 Relationship Daughter Privacy Restrictions Requested None Height 162.6 cm Admission Weight 79.5 kg Weight Method Stated [place] Body Weight 54.74 kg BSA Admission 1.85 Body Mass Index 30.07 kg/m2 Temperature Axillary 36.7 DegC Heart Rate Monitored 68 bpm Respiratory Rate 16 br/min Systolic Blood Pressure NBP 126 mmHg Diastolic Blood Pressure NBP 78 mmHg Primary Pain Intensity 0 Primary Pain Nonverbal Response Appears restful Pain Scale Type 0-10 Pain scale Heart Rhythm Regular Cardiac Rhythm Sinus rhythm Monitoring Lead II Respirations Unlabored Respiratory Pattern Regular Cough None Oxygen Therapy Room air Oxygen Saturation 95 % Abdomen Description Soft, Rounded Bowel Sounds All Quadrants Present Status No, per patient Sensory Deficits None Ambulation Ambulation in Room Infectious Disease Symptoms Patient states no symptoms Infectious Disease Recent Exposure No Alcohol and Drug Use No Employee of Institutional Living No Health Care Employee No History of Exposure to TB No History of Positive Chest X-Ray for TB No History of Positive TB Skin Test No Homeless No Known Immunosuppression No Recent Immigrant No Resident of Institutional Living No Bloody Sputum No Fatigue No Fever No Loss of Appetite No Night Sweats No Persistent Cough > 3 Weeks No Weight Loss No Arrival Mode Ambulatory Glasses No Accompanied By On Arrival Family Contact Name and Number Glynn GI Prep Sutab GI Prep Completed Yes GI Prep Results Large amount, Watery, Yellow, Clear Radha Motor (2) Moves 4 extremities voluntarily or on command Radha Respirations (2) Spontaneous respiration without support, RR > 10 Radha Blood Pressure (2) BP 20% above or below preanesthetic level Radha Pulse (2) Pulse 20% above or below preanesthetic level Radha Oxygen Saturation (2) 94% or more Radha Level of Consciousness (2) Fully awake Radha III Score 12 Barriers to Learning None evident Teaching Method Explanation, Printed materials Preferred Written Language Montserratian Preferred Spoken Language Montserratian Information Given by Patient Patient's Current Physicians Patient's Current Physicians Discharge To, Anticipated Home independently Activity Status ADL Awake, Repositions self NPO Status Maintained, Less than 8 hours NPO Since 03/03/2022 4:30 Standard Safety ID band on, Call device within reach, Bed in low position, Wheels locked, Upper/Half-Length side-rails up, Phone within reach, personal items within reach Prev Test Positive/Diagnosis w/COVID-19 Yes Previous COVID-19 Positive Date 12/2021 Current Quarantine/Isolated any Illness No Any Contact with Sick Animals/Birds No Traveled Anywhere in Last 30 Days No No Personal Devices, Patient Valuables Dentures, partial plate Admission Note-Nursing Procedure/Therapy Intake . Assessment and Plan [place] [employer] (ASA) physical status classification: Class III. Anesthetic Preoperative Plan Anesthetic technique: MAC. Informed consent: signed by patient. Digitally Signed by DENVER GUTIERREZ on 03/03/2022 09:08 AM [facility]09-23-2022 Note ROBESONIA ADMISSION HISTORY AND PHYSICIAL CHIEF COMPLAINT: HISTORY OF PRESENT ILLNESS: REVIEW OF SYSTEMS: ACTIVE PROBLEMS: (24) Abnormal mammogram (467817627) Abnormal screening computed tomography (CT) of lung (8586551662) Anxiety (92889310) Breast cancer screening (678099587) Cervical cancer screening (8014135798) Colon cancer screening (250161012) Encounter for well adult exam with abnormal findings (255922879) GERD (gastroesophageal reflux disease) (555589649) Hot flashes due to menopause (171438119) Immunization due (961570611) Insomnia (304495308) Major depression in remission (73836334) Nephrolithiasis (049209936) Obesity (6110650065) Post-menopausal (526458719) Pre-diabetes (6366791900) Preoperative evaluation of a medical condition to rule out surgical contraindications (TAR required) (437149593) Restless legs (02524495) Right arm pain (075754645) S/P gastric bypass (3583466362) Screening for cardiovascular condition (834323125) Somatic dysfunction of upper extremity (4332399358) Tobacco non-user (281984973) Viral syndrome (56388465) MEDICATIONS: Active Inpt Meds: None Active PRN Meds: None One Time Meds: None Active IV Meds: Lactated Ringers Infusion 1,000 mL (LR 1,000 mL) Start: 03/03/22 7:52:00 EDT, Rate: 50 mL/hr, 03/03/22 7:52:00 EDT ALLERGIES: (1) NKA FAMILY HISTORY: SOCIAL HISTORY: PHYSICAL EXAM: VITALS: [id number](kg) 03/03 07:5536.7126/12466005KV96/23 79.5 24 Hr Tmax: 36.7 at 03/03 07:55 36 Hr Tmax: 36.7 at 03/03 07:55 Vital Signs are the last 5 in the past 48 hours. Weights display the last 5 within 7 days. Initial Wt: 03/03 79.5 kg 175 lb Current Wt: 03/03 79.5 kg 175 lb GENERAL: HEENT: CARDIOVASCULAR: RESPIRATORY: ABDOMEN: EXREMETIES: NEUROLOGICAL: PSYCHIATRIC: LABS: No 36hr Lab Data DIAGNOSTICS: IMPRESSION: PLAN: History and Physical Update I have examined the patient; reviewed the H&P and there are no changes to the H&P unless noted below. Digitally Signed by KRYSTINA PUGH MD on 03/03/2022 08:58 AM [facility]03-14-2022 Evaluation + Plan note Future Scheduled Tests Laboratory* Vitamin B1 (Thiamine), Whole Blood 08/22/21 * Ferritin 11/22/21 * Ferritin 08/22/21 * Folate Level 11/22/21 * Folate Level 08/22/21 * Vitamin B12 Level 11/22/21 * Vitamin B12 Level 08/22/21 * A1C Hemoglobin 02/22/22 * A1C Hemoglobin 08/22/21 * Complete Blood Count 02/22/22 * Complete Blood Count 08/22/21 * Lipid Profile 08/22/21 * Vitamin D Level 08/22/21 * Zinc Level 11/22/21 * Zinc Level 08/22/21 * Complete Metabolic Panel 02/22/22 * Complete Metabolic Panel 08/22/21 * [facility] Lab Send out (Blood Specimens) 11/22/21 Radiology* MA Mammogram Diagnostic Bilateral w/o Juma 01/01/22 * US Breast Right Complete 01/01/22 [facility] 03-14-2022 Evaluation + Plan note Future Appointments Future Scheduled Tests Laboratory* Vitamin B1 (Thiamine), Whole Blood 08/22/21 * Ferritin 11/22/21 * Ferritin 08/22/21 * Folate Level 11/22/21 * Folate Level 08/22/21 * Vitamin B12 Level 11/22/21 * Vitamin B12 Level 08/22/21 * A1C Hemoglobin 02/22/22 * A1C Hemoglobin 08/22/21 * Complete Blood Count 02/22/22 * Complete Blood Count 08/22/21 * Lipid Profile 08/22/21 * Vitamin D Level 08/22/21 * Zinc Level 11/22/21 * Zinc Level 08/22/21 * Complete Metabolic Panel 02/22/22 * Complete Metabolic Panel 08/22/21 * [facility] Lab Send out (Blood Specimens) 11/22/21 Radiology* CT Thorax w/o Contrast 06/07/22 * MA Mammogram Diagnostic Bilateral w/o Juma 01/01/22 [facility] 12-12-2021 Hospital Discharge instructions Patient Education 05/22/2021 06:15:28 Urinary Tract Infections in Women Urinary Tract Infections in Women Urinary tract infections (UTIs) are most often caused by bacteria. These bacteria enter the urinarytract. The bacteria may come from outside the body. Or they may travel from the skin outside the rectum or vagina into the urethra. Female anatomy makes it easy for bacteria from the bowel to enter awoman s urinary tract, which is the most common source of UTI. This means women develop UTIs more often than men. Pain in or around the urinary tract is a common UTI symptom. But the only way to knowfor sure if you have a UTI for the healthcare provider to test your urine. The two tests that may be done are the urinalysis and urine culture. Types of UTIs Cystitis. A bladder infection (cystitis) is the most common UTI in women. You may have urgent or frequent urination. You may also have pain, burning when you urinate, and bloody urine. Urethritis. This is an inflamed urethra, which is the tube that carries urine from the bladder to outside the body. You may have lower stomach or back pain. You may also have urgent or frequent urination. Pyelonephritis. This is a kidney infection. If not treated, it can be serious and damage your kidneys. In severe cases, you may need to stay in the hospital. You may have a fever and lower back pain. Medicines to treat a UTI Most UTIs are treated with antibiotics. These kill the bacteria. The length of time you need to take them depends on the type of infection. It may be as short as 3 days. If you have repeated UTIs, you may need a low-dose antibiotic for several months. Take antibiotics exactly as directed. Don t stop taking them until all of the medicine is gone. If you stop taking the antibiotic too soon, the infection may not go away. You may also develop a resistance to the antibiotic. This can make it much harder to treat. Lifestyle changes to treat and prevent UTIs The lifestyle changes below will help get rid of your UTI. They may also help prevent future UTIs. Drink plenty of fluids. This includes water, juice, or other caffeine-free drinks. Fluids help flush bacteria out of your body. Empty your bladder. Always empty your bladder when you feel the urge to urinate. And always urinatebefore going to sleep. Urine that stays in your bladder can lead to infection. Try to urinate before and after sex as well. Practice good personal hygiene. Wipe yourself from front to back after using the toilet. This helpskeep bacteria from getting into the urethra. Use condoms during sex. These help prevent UTIs caused by sexually transmitted bacteria. Also don'tuse spermicides during sex. These can increase the risk for UTIs. Choose other forms of control instead. For women who tend to get UTIs after sex, a low-dose of a preventive antibiotic may be used. Be sure to discuss this option with your healthcare provider. Follow up with your healthcare provider as directed. He or she may test to make sure the infection has cleared. If needed, more treatment may be started. 9021-9827 [employer]. [address] [place] [address], [place] [address]. All rights reserved. This information is not intended as a substitute for professional medical care. Always follow yourhealthcare professional's instructions. 05/22/2021 06:12:40 Pneumonia (Adult) Pneumonia (Adult) Pneumonia is an infection deep within the lungs. It is in the small air sacs (alveoli). Pneumonia may be caused by a virus or bacteria. Pneumonia caused by bacteria is usually treated with an antibiotic. Severe cases may need to be treated in the hospital. Milder cases can be treated at home. Symptoms usually start to get better during the first 2 days of treatment. Home care Follow these guidelines when caring for yourself at home: Rest at home for the first 2 to 3 days, or until you feel stronger. Don t let yourself get overly tired when you go back to your activities. Stay away from cigarette smoke yours or other people s. You may use acetaminophen or ibuprofen to control fever or pain, unless another medicine was prescribed. If you have chronic liver or kidney disease, talk with your healthcare provider before using these medicines. Also talk with your provider if you ve had a stomach ulcer or gastrointestinal bleeding. Don t give aspirin to anyone younger than 18 years of age who is ill with a fever. It may causesevere liver damage. Your appetite may be poor, so a light diet is fine. Drink 6 to 8 glasses of fluids every day to make sure you are getting enough fluids. Beverages can include water, sport drinks, sodas without caffeine, juices, tea, or soup. Fluids will help loosen secretions in the lung. This will make it easier for you to cough up the phlegm (sputum). If you alsohave heart or kidney disease, check with your healthcare provider before you drink extra fluids. Take antibiotic medicine prescribed until it is all gone, even if you are feeling better after a few days. Follow-up care Follow up with your healthcare provider in the next 2 to 3 days, or as advised. This is to be sure the medicine is helping you get better. If you are 65 or older, you should get a pneumococcal vaccine and a yearly flu (influenza) shot. You should also get these vaccines if you have chronic lung disease like asthma, emphysema, or COPD. Recently, a second type of pneumonia vaccine has become available for everyone over 65 years old. This is in addition to the previous vaccine. Ask your provider about this. When to seek medical advice Call your healthcare provider right away if any of these occur: You don t get better within the first 48 hours of treatment Shortness of breath gets worse Rapid breathing (more than 25 breaths per minute) Coughing up blood Chest pain gets worse with breathing Fever of 100.4 F (38 C) or higher that doesn t get better with fever medicine Weakness, dizziness, or fainting that gets worse Thirst or dry mouth that gets worse Sinus pain, headache, or a stiff neck Chest pain not caused by coughing 1170-2534 [employer]. [address] [place] [address], [place] [address]. All rights reserved. This information is not intended as a substitute for professional medical care. Always follow yourhealthcare professional's instructions. 05/22/2021 06:05:19 Abdominal Pain Abdominal Pain Abdominal pain is pain in the stomach or belly area. Everyone has this pain from time to time. In many cases it goes away on its own. But abdominal pain can sometimes be due to a serious problem, such as appendicitis. So it s important to know when to get help. Causes of abdominal pain There are many possible causes of abdominal pain. Common causes in adults include: Constipation, diarrhea, or gas Stomach acid flowing back up into the esophagus (acid reflux or heartburn) Severe acid reflux, called GERD (gastroesophageal reflux disease) A sore in the lining of the stomach or small intestine (peptic ulcer) Inflammation of the gallbladder, liver, or pancreas Gallstones or kidney stones Appendicitis Intestinal blockage An internal organ pushing through a muscle or other tissue (hernia) Urinary tract infections In women, menstrual cramps, fibroids, ovarian cysts, pelvic inflammatory disease, or endometriosis Inflammation or infection of the intestines, including Crohn's disease and ulcerative colitis Irritable bowel syndrome Diagnosing the cause of abdominal pain Your healthcare provider will give you a physical exam help find the cause of your pain. If needed,you will have tests. Belly pain has many possible causes. So it can be hard to find the reason for your pain. Giving details about your pain can help. Tell your provider where and when you feel the pain, and what makes it better or worse. Also let your provider know if you have other symptoms such as: Fever Tiredness Upset stomach (nausea) Vomiting Changes in bathroom habits Blood in the stool or black, tarry stool Weight loss that you can't explain (involuntary weight loss?) Also report any family history of stomach or intestinal problems, or cancers. Tell your provider about all your alcohol use and drug use. Tell your provider about all medicines you use, including herbs, vitamins, and supplements. Treating abdominal pain Some causes of pain need emergency medical treatment right away. These include appendicitis or a bowel blockage. Other problems can be treated with rest, fluids, or medicines. Your healthcare provider can give you specific instructions for treatment or self-care based on what is causing your pain. If you have vomiting or diarrhea, sip water or other clear fluids. When you are ready to eat solid foods again, start with small amounts of gdaa-xb-[id number], low- fat foods. These include apple sauce, toast, or crackers. When to get medical care Call 911 or go to the hospital right away if you: Can t pass stool and are vomiting Are vomiting blood or have bloody diarrhea or black, tarry diarrhea Have chest, neck, or shoulder pain Feel like you might pass out Have pain in your shoulder blades with nausea Have sudden, severe belly pain Have new, severe pain unlike any you have felt before Have a belly that is rigid, hard, and hurts to touch Call your healthcare provider if you have: Pain for more than 5 days Bloating for more than 2 days Diarrhea for more than 5 days A fever of 100.4 F (38 C) or higher, or as directed by your healthcare provider Pain that gets worse Weight loss for no reason Continued lack of appetite Blood in your stool How to prevent abdominal pain Here are some tips to help prevent abdominal pain: Eat smaller amounts of food at each meal. Don't eat greasy, fried, or other high-fat foods. Don't eat foods that give you gas. Exercise regularly. Drink plenty of fluids. To help prevent GERD symptoms: Quit smoking. Reduce alcohol and foods that increase stomach acid. Don't use aspirin or ocvw-qos-sseudly pain and fever medicines, if possible. This includes nonsteroidal anti-inflammatory drugs (NSAIDs). Lose excess weight. Finish eating at least 2 hours before you go to bed or lie down. Raise the head of your bed. 9510-4867 [employer]. [address] [place] [address]. All rights reserved. This information is not intended as a substitute for professional medical care. Always follow yourhealthcare professional's instructions. Follow Up Care 05/22/2021 04:01:53 With:FRANKY PEARSON DO Address: [phone] When:2-4 days [facility] Evaluation + Plan note Future Appointments Appointment Date:05/31/2021 08:30:00 AM Scheduled Provider:FRANKY PEARSON DO Location:[facility] Appointment Type:PC OV Follow Up Appointment Date:06/20/2021 08:30:00 AM Scheduled Provider: Location:[facility] Appointment Type:US Breast Right Complete Future Scheduled Tests Radiology* US Breast Right Complete 06/20/21 [facility] evaluation + Plan note Future Appointments Appointment Date:08/31/2021 08:30:00 AM Scheduled Provider:FRANKY PEARSON DO Location:[facility] Appointment Type:PC OV Follow Up Future Scheduled Tests Radiology* CT Thorax w/o Contrast 06/28/21 [facility] Evaluation + Plan note Future Appointments Appointment Date:08/31/2021 08:30:00 AM Scheduled Provider:FRANKY PEARSON DO Location:[facility] Appointment Type:PC OV Follow Up Future Scheduled Tests Radiology* MA Mammogram Diagnostic Bilateral w/o Juma 01/01/22 * US Breast Right Complete 01/01/22 [facility] Evaluation + Plan note Future Appointments Appointment Date:05/30/2022 09:00:00 AM Scheduled Provider:FRANKY PEARSON DO Location:[facility] Appointment Type:PC OV Future Scheduled Tests Laboratory* Vitamin B1 (Thiamine), Whole Blood 08/22/21 * Ferritin 11/22/21 * Ferritin 08/22/21 * Folate Level 11/22/21 * Folate Level 08/22/21 * Vitamin B12 Level 11/22/21 * Vitamin B12 Level 08/22/21 * A1C Hemoglobin 08/22/21 * Complete Blood Count 08/22/21 * Lipid Profile 08/22/21 * Vitamin D Level 08/22/21 * Zinc Level 11/22/21 * Zinc Level 08/22/21 * Complete Metabolic Panel 08/22/21 * [facility] Lab Send out (Blood Specimens) 11/22/21 Radiology* US Breast Right Limited 08/08/22 * CT Thorax w/o Contrast 06/07/22 * MA Mammogram Diagnostic Bilateral w/o Juma 01/01/22 [facility] evaluation + Plan note Future Appointments Appointment Date:05/30/2022 09:00:00 AM Scheduled Provider:FRANKY PEARSON DO Location:[facility] Appointment Type:PC OV Diagnostic Tests Pending * Zinc Level 04/26/22 * Vitamin B1 (Thiamine), Whole Blood 04/26/22 Future Scheduled Tests Laboratory* Ferritin 11/22/21 * Folate Level 08/22/21 * Vitamin B12 Level 11/22/21 * Zinc Level 11/22/21 * [facility] Lab Send out (Blood Specimens) 11/22/21 Radiology* US Breast Right Limited 08/08/22 * CT Thorax w/o Contrast 06/07/22 * MA Mammogram Diagnostic Bilateral w/o Juma 01/01/22 [facility] Evaluation + Plan note Future Appointments Appointment Date:08/24/2022 08:00:00 AM Scheduled Provider:FRANKY PEARSON DO Location:[facility] Appointment Type:PC Wellness Annual Future Scheduled Tests Laboratory* Ferritin 11/22/21 * Folate Level 08/22/21 * Vitamin B12 Level 11/22/21 * Zinc Level 11/22/21 * [facility] Lab Send out (Blood Specimens) 11/22/21 Radiology* US Breast Right Limited 08/08/22 * CT Thorax w/o Contrast 06/23/23 * MA Mammogram Diagnostic Bilateral w/o Juma 01/01/22 [facility] Evaluation + Plan note Future Appointments Appointment Date:08/24/2022 08:00:00 AM Scheduled Provider:FRANKY PEARSON DO Location:[facility] Appointment Type:PC Wellness Annual Future Scheduled Tests Laboratory* Ferritin 11/22/21 * Vitamin B12 Level 11/22/21 * Zinc Level 11/22/21 * [facility] Lab Send out (Blood Specimens) 11/22/21 Radiology* CT Thorax w/o Contrast 06/23/23 * MA Mammogram Diagnostic Bilateral w/o Juma 01/01/22 [facility] Evaluation + Plan note Future Appointments Appointment Date:11/29/2022 08:00:00 AM Scheduled Provider:FRANKY PEARSON DO Location:[facility] Appointment Type:PC OV Future Scheduled Tests Laboratory* Vitamin B1 (Thiamine), Whole Blood 08/24/22 * Ferritin 11/22/21 * Magnesium Level 08/24/22 * Thyroid Stimulating Hormone 08/24/22 * Vitamin B12 Level 11/22/21 * A1C Hemoglobin 08/24/22 * Complete Blood Count 08/24/22 * Lipid Profile 08/24/22 * Hepatitis C Antibody IgG 08/24/22 * Vitamin D Level 08/24/22 * Zinc Level 11/22/21 * Zinc Level 08/24/22 * Complete Metabolic Panel 08/24/22 * [facility] Lab Send out (Blood Specimens) 11/22/21 Radiology* US Breast Right Limited 02/09/23 * BD Bone Density DEXA Axial Skeleton 12/09/22 * CT Thorax w/o Contrast 06/23/23 * MA Mammogram Diagnostic Bilateral w/o Juma 01/01/22 * MA Mammogram Diagnostic Bilateral w/o Juma 02/09/23 [facility] Evaluation + Plan note Future Appointments Appointment Date:09/13/2022 08:00:00 AM Scheduled Provider: Location:[facility] Appointment Type:CV Procedure - AOH Echo Appointment Date:09/19/2022 07:45:00 AM Scheduled Provider: Location:[facility] Appointment Type:HL Plain Stress Test Appointment Date:11/29/2022 08:00:00 AM Scheduled Provider:FRANKY PEARSON DO Location:[facility] Appointment Type:PC OV Diagnostic Tests Pending * Vitamin B1 (Thiamine), Whole Blood 09/02/22 * Zinc Level 09/02/22 Future Scheduled Tests Laboratory* Ferritin 11/22/21 * Vitamin B12 Level 11/22/21 * Zinc Level 11/22/21 * [facility] Lab Send out (Blood Specimens) 11/22/21 Radiology* US Breast Right Limited 02/09/23 * BD Bone Density DEXA Axial Skeleton 12/09/22 * CT Thorax w/o Contrast 06/23/23 * MA Mammogram Diagnostic Bilateral w/o Juma 01/01/22 * MA Mammogram Diagnostic Bilateral w/o Juma 02/09/23 [facility] Evaluation + Plan note Future Appointments Appointment Date:09/19/2022 07:45:00 AM Scheduled Provider: Location:[facility] Appointment Type:HL Plain Stress Test Appointment Date:11/29/2022 08:00:00 AM Scheduled Provider:FRANKY PEARSON DO Location:[facility] Appointment Type:PC OV Future Scheduled Tests Laboratory* Ferritin 11/22/21 * Vitamin B12 Level 11/22/21 * Zinc Level 11/22/21 * [facility] Lab Send out (Blood Specimens) 11/22/21 Radiology* US Breast Right Limited 02/09/23 * BD Bone Density DEXA Axial Skeleton 12/09/22 * CT Thorax w/o Contrast 06/23/23 * MA Mammogram Diagnostic Bilateral w/o Juma 01/01/22 * MA Mammogram Diagnostic Bilateral w/o Juma 02/09/23 [facility] Evaluation note* Diagnosis Pre-diabetes- Primary Other abnormal glucose S/P bariatric surgery Weight gain Other symptoms concerning nutrition, metabolism, and development BMI 31.0-31.9,adult Class 1 obesity with serious comorbidity and body mass index (BMI) of 31.0 to 31.9 in adult, unspecified obesity type Deficiency of multiple nutrient elements Other nutritional deficiency Vitamin D deficiency [facility] N[facility] No data available for this section [facility] Hospital Discharge instructions No data available for this section [facility] Progress note No data available for this section [facility] Summary Purpose Family History No Family History Records FoundNo Family History Records FoundNo Family History Records FoundNo Family History Records FoundNo Family History Records FoundNo Family History Records FoundNo Family History Records Found Advance Directives Documents on File Type Date Recorded Patient [employer] Expl anation Advance Directives and Living Will Power of Nurse Private Duty Latest Code Status on File Code Status Date Activated Date Inactivated Comments Full Code 08/30/2018 12:11 PM 08/30/2018 4:55 PM Full Code 04/09/2018 8:24 AM 04/10/2018 2:44 PM Full Code 04/08/2018 7:00 PM 04/09/2018 8:24 AM Full Code 04/08/2018 11:06 AM 04/08/2018 6:41 PM Full Code 11/27/2017 7:08 AM 11/27/2017 4:38 PM Documents on File Type Date 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 * BMI Classification: Morbidly Obese (>40.0) HOSPITAL COURSE: Amanda Grubbs is a 47 y.o. female who presented to [facility] on 04/08/2018 for elective LRYGB. She tolerated the procedure well and was started on bariatric clear liquid diet POD #1 following UGI. She met with bariatric nursing team and was informed regarding the plan going forward in regards to expectations and goals. She was discharged POD #2. At the time of discharge patient's vital signs were within normal limits. Patient was voiding spontaneously, tolerating a diet, ambulating (more content not included)... Note OPERATIVE NOTE DATE OF PROCE DURE: 04/08/2018 SURGEON: Kane Jordan SPANISH LANGUAGE LECTURER: Ruben Truong MD PREOPERATIVE DIAGNOSIS: ? SANDY ? GERD ? Prediabetes ? Hepatic Steatosis ? Morbid Obesity POSTOPERATIVE DIAGNOSIS: ? SANDY ? GERD ? Prediabetes ? Hepatic Steatosis ? Morbid Obesity OPERATION: ? Laparoscopic Bertin-en-Y gastric bypass ? Laparoscopic Liver Biopsy ? Upper Gastrointestinal Endoscopy ANESTHESIA: General anesthesia ESTIMATED BLOOD LOSS: Minimal. COMPLICATIONS: None SPECIMENS: Liver Biopsy PREOPERATIVE MEDICATIONS: Ancef, Heparin HISTORY: The patient is a 47 y.o. year old female with history of morbid obesity and a BMI of Body mass index is 42.34 kg/m?. CONSENT: The patient was seen and evaluated in the office setting where the procedure was explained to the patient and any questions were answered. An informed consent discussion was held between Dr. Jordan and the patient. Viable alternatives to the proposed procedure, including but not limited to, medical observation under th (more content not included)... Procedure Findings Note OPERATIVE NOTE DATE OF PROCE DURE: 04/08/2018 SURGEON: Kane Jordan SPANISH LANGUAGE LECTURER: Ruben Truong MD PREOPERATIVE DIAGNOSIS: ? SANDY ? GERD ? Prediabetes ? Hepatic Steatosis ? Morbid Obesity POSTOPERATIVE DIAGNOSIS: ? SANDY ? GERD ? Prediabetes ? Hepatic Steatosis ? Morbid Obesity OPERATION: ? Laparoscopic Bertin-en-Y gastric bypass ? Laparoscopic Liver Biopsy ? Upper Gastrointestinal Endoscopy ANESTHESIA: General anesthesia ESTIMATED BLOOD LOSS: Minimal. COMPLICATIONS: None SPECIMENS: Liver Biopsy PREOPERATIVE MEDICATIONS: Ancef, Heparin HISTORY: The patient is a 47 y.o. year old female with history of morbid obesity and a BMI of Body mass index is 42.34 kg/m?. CONSENT: The patient was seen and evaluated in the office setting where the procedure was explained to the patient and any questions were answered. An informed consent discussion was held between Dr. Jordan and the patient. Viable alternatives to the proposed procedure, including but not limited to, medical observation under th (more content not included)... Additional Source Comments INFORMATION SOURCE (unrecogn ized section and content) DATE CREATED AUTHOR AUTHOR'S ORGANIZ ATION 03/31/2019 [facility] DATE CREATED AUTHOR AUTHOR'S ORGANIZ ATION 01/01/2020 [facility] DATE CREATED AUTHOR AUTHOR'S ORGANIZ ATION 02/03/2020 [facility] DATE CREATED AUTHOR AUTHOR'S ORGANIZ ATION 03/16/2020 [facility] DATE CREATED AUTHOR AUTHOR'S ORGANIZ ATION 09/21/2022 [facility] ([place]) DATE CREATED AUTHOR AUTHOR'S ORGANIZ ATION 01/17/2023 [facility] Care Team (unrecognized sect ion and content) Personnel Name: FRANKY PEARSON DO Address: Address: [address] [place] [address]- Care Team Personnel Name: FRANKY PEARSON DO Position: P4 Physician - Primary Care Member Role: Primary Care Physician Address: Address: [address] [place] [address]- Care Team Related Persons Name: WILLIAN GRUBBS Address: Home [address] [place], [place] [id number] Address: Temporary [address] [place], [place] [id number] Name: ROMIE, MELBA D Address: Home [address] [place], [place] [id number] [place] Address: Temporary [address] [place], [place] [id number] Name: GILLES GRUBBS Address: Home [address] [place], [place] [id number] Care Team Personnel Name: FRANKY PEARSON DO Position: P4 Physician - Primary Care Med Service: Active Provider Member Role: Primary Care Physician Address: Address: [address] [place] [address]- Care Team Related Persons Name: WILLIAN GRUBBS Address: Home [address] [place], [place] [id number] Address: Temporary [address] [place], [place] [id number] Name: MELBA GRUBBS Address: Home [address] [place], [place] [id number] [place] Address: Temporary [address] [place], [place] [id number] Name: GILLES GRUBBS Address: Home [address] [place], [place] [id number] Care Team Personnel Name: FRANKY PEARSON DO Position: P4 Physician - Primary Care Member Role: Primary Care Physician Address: Address: [address] [place] [address]- Care Team Related Persons Name: MELBA GRUBBS Address: [address] [address] [place], [place] [id number] [place] Address: [address]porary [address] [place], [place] [id number] Name: GILLES GRUBBS Address: Home [address] [place], [place] [id number] Care Team Personnel Name: FRANKY PEARSON DO Position: P4 Physician - Primary Care Member Role: Primary Care Physician Address: Address: [address] [place] [address]- [place] Care Team Related Persons Name: MELBA GRUBBS Address: Home [address] [place], [place] [id number] [place] Address: Temporary [address] [place], [place] [id number] Name: GILLES GRUBBS Address: Home [address] [place], [place] [phone] Care Team Personnel Name: FRANKY PEARSON DO Position: P4 Physician - Primary Care Member Role: Primary Care Physician Address: Address: [address] [facility] [place], [place] [address] Care Team Related Persons Name: MELBA GRUBBS Address: Home [address] [place], [place] [id number] [place] Address: Temporary [address] [place], [place] [id number] Name: GILLES GRUBBS Address: Home [address] [place], [place] [phone] Reason for Visit (unrecogniz ed section and content) Reason Onset Date Comments Appointment 01/16/2023 Care Teams (unrecognized sec tion and content) Mascara Molder Relationship Specialty Start Date End Date Rio Aburto DO [address] [place] [address] PCP - General 06/25/17 FOR RECORDS PERTAINING TO PATIENTS WHO ARE OR HAVE BEEN ENROLLED IN A CHEMICAL DEPENDENCY/SUBSTANCEABUSE PROGRAM, SOME INFORMATION MAY BE OMITTED. This clinical summary was aggregated from multiple sources. Caution should be exercised in using it in the provision of clinical care. This summary normalizes information from multiple sources, and as a consequence, information in this document may materially change the coding, format and clinical context of patient data. In addition, data may be omitted in some cases. CLINICAL DECISIONS SHOULD BE BASED ON THE PRIMARY CLINICAL RECORDS. [facility] [employer] provides no warranty or guarantee of the accuracy or completeness of information in this document.
[2023-06-22 12:09] LABS: Hematocrit 40.4 % (37-47); Hemoglobin 12.7 g/dL (12.0-15.0); Mean Corp Hgb Conc 31.4 g/dL (32-36); Mean Corpuscular Hgb 29.9 pg (27.0-32.0); Mean Corpuscular Volume 95.1 fL (81-99); Mean Platelet Vol. 9.3 fl (6.2-12.0); Platelet Count 312 K/mm3 (150-450); RBC Distribution Width CV 12.7 % (11.6-14.6); RBC Distribution Width SD 44.1 fl (35.1-43.9); Red Blood Count 4.25 M/mm3 (4.2-5.4); White Blood Count 5.4 K/mm3 (4.4-11.0)
[2023-06-22 12:31] LABS: Vitamin B12 219 pg/mL (211-911); Vitamin D,25 Hydroxy 54.4 ng/mL
[2023-06-22 12:57] LABS: AST(SGOT) 17 U/L (15-37); Alanine Aminotransfer ALT/SGPT 24 U/L (13-56); Albumin, Serum 3.8 g/dL (3.2-5.0); Alkaline Phosphatase 84 U/L (45-117); Anion Gap 4 (5-15); BUN 13 mg/dL (7-18); BUN/Creat Ratio 13.4 RATIO (10-20); Calcium,Total 9.5 mg/dL (8.5-10.1); Chloride 108 mmol/L (98-107); Cholesterol 176 mg/dL (200); Creatinine, Serum 0.97 mg/dL (0.55-1.02); EST Glomerular Filtration Rate 64 mL/min (>60); Est Glom Filt Rate - Afr Amer 78 mL/min (>60); Ferritin 18 ng/mL (8-252); Globulin 3.8 g/dL (2.2-4.2); Glucose 82 mg/dL (74-106); High Density Lipoprotein 76 mg/dL; Potassium 4.5 mmol/L (3.5-5.1); Protein, Total 7.6 g/dL (6.4-8.2); Sodium Level 141 mmol/L (136-145); Triglycerides 58 mg/dL; Very Low Density Lipoprotein 12 mg/dL (5-40)
[2023-06-22 13:25] LABS: Hemoglobin A1c 5.4 % (3.8-5.6)
[2023-06-27 06:10] LABS: Vitamin B1, Thiamine 157.3 nmol/L (66.5-200.0); Zinc, Plasma or Serum 84 ug/dL (44-115)
== END | disposition home or self-care (01) ==
LOC: BIMLAB 07:56
PROVIDERS: PCP Student in an Organized Health Care Education/Training Program; Referring Provider Student in an Organized Health Care Education/Training Program; Visit Provider Student in an Organized Health Care Education/Training Program
DX: Z13.6 Encounter for screening for cardiovascular disorders (principal); R53.83 Other fatigue; Z98.84 Bariatric surgery status
CPT/HCPCS: 36415; 80053; 80061; 82306; 82607; 82728; 82746; 83036; 84425; 84443; 84630; 85027

== ENCOUNTER → 2023-07-24 | Outpatient (CLI) | payer OTHER, SELFPAY ==
--- NOTE | 2023-07-24 13:57 | BI_ITS ---
MAMMOGRAPHY - BILATERAL DIAGNOSTIC REASON FOR EXAM: Female, 53 years old. 6 month follow-up examination. PERTINENT HISTORY: Grandmother with breast cancer. Aunt with breast cancer. TECHNIQUE: Digital bilateral breast paige (3D mammographic acquisition) in the CC and MLO projections. 2-D mediolateral oblique (MLO) and craniocaudad (CC) views of both breasts were obtained. CAD: Full Field Digital Mammography with Computer Added Detection was performed. COMPARISON: Comparison is made with prior ocular examination dated February 02, 2022. FINDINGS: Breast Composition: There are scattered areas of fibroglandular density. There is a 7.8 mm x 2.6 mm nodular density in the deep upper lateral aspect of the right breast. Correlation with ultrasound is recommended. No other significant abnormalities are identified. BI/DIAG MAMM W/CAD, BILAT IMPRESSION: 7.8 mm x 2.6 mm nodular density in the deep upper outer aspect of the right breast. Correlation with ultrasound is recommended. Stable examination. ASSESSMENT CATEGORY: BIRADS Category 0: Incomplete. Need additional imaging evaluation. A letter regarding these results will be sent to the patient by the facility within 30 days. Approximately 10% of breast cancers are not detected by mammography. A normal mammogram should not delay biopsy of a clinically suspicious abnormality. Electronically Signed: Kervin Naqvi MD at 8:07 EST ,
--- NOTE | 2023-07-24 13:58 | US_ITS ---
STUDY: ULTRASOUND BREAST - RIGHT REASON FOR EXAM: Female, 53 years old. Follow-up right breast cyst. TECHNIQUE: Axial and longitudinal images of the RIGHT breast were performed with a high resolution ultrasound transducer. # OF IMAGES: 9 COMPARISON: Comparison is made with prior mammogram done earlier in the day. FINDINGS: RIGHT Breast: The mammographic abnormality corresponds to a 4 mm x 5 mm x 2 mm well-defined hypoechoic nodule suggestive of a small lymph node. This is at the 10:00 position of the breast at 7 cm from the nipple. US/Breast Limited Unilateral IMPRESSION: Findings suggestive of 4 mm x 5 mm x 2 mm benign-appearing lymph node at the 10:00 position of the breast at 7 cm from the nipple. ASSESSMENT CATEGORY: BIRADS Category 2: Benign. A letter regarding these results will be sent to the patient by the facility within 30 days. Electronically Signed: Kervin Naqvi MD at 9:43 EST ,
--- NOTE | 2023-07-24 14:00 | BD_ITS ---
STUDY: DUAL ENERGY X-RAY ABSORPTIOMETRY / DXA REASON FOR EXAM: Female, 53 years old. Postmenopausal TECHNIQUE: Bone Mineral Density (BMD) measurements of lumbar spine and bilateral hips were obtained. COMPARISON: None. FINDINGS: Lumbar Spine (L1-L4): g/cm2 (1.133) / T-score (0.8) / Z-score (1.7) Findings are suggestive of normal bone density with a low fracture risk. Left Femur Total: g/cm2 (1.056) / T-score (0.9) / Z-score (1.5) Left Femoral Neck: g/cm2 (1.007) / T-score (1.4) / Z-score (2.3) Right Femur Total: g/cm2 (1.043) / T-score (0.8) / Z-score (1.4) Right Femoral Neck: g/cm2 (0.952) / T-score (0.9) / Z-score (1.8) BD/Dexa Bone Density Study IMPRESSION: The patient is considered normal as outlined below according to World Alexys Organization (WHO) criteria with a low fracture risk. Reference Information: The T-score is the number of standard deviations above or below the standard which is normal for young adults at their peak bone mineral density. The World Health Organization (WHO) interprets the T-scores as follows: Above -1 Normal bone density Between -1 and -2.5 Osteopenia Equal to / or below -2.5 Osteoporosis As a practical clinical guideline, osteopenia may be graded as follows: Mild -1 through -1.5 Moderate -1.6 through -2.0 Severe -2.1 through -2.4 The Z-score is the number of standard deviations above or below age-matched controls. A Z-score of less than -1.5 would be considered abnormal. References: 1. NIH Osteoporosis and Related Bone Diseases www osteo.org 2. International Society for Clinical Densitometry www iscd.org 3. National Osteoporosis Foundation www nof.org Electronically Signed: Kervin Naqvi MD at 15:24 EST ,
--- OUTSIDE RECORDS SUMMARY | 2023-07-24 18:46 | XMS RPT_ITS | CCD ---
Author Name Unknown Address [email or web address] [place] [address] Organization [facility] Care Team Providers Care Varnish Filterer Name Role Phone Franky Pearson Primary Care Provider Unavailstephanie e BEDADAM SIMPSON Admitting Unavailable BEDDELLADAM Attending Unavailable AA REQUESTED, NEW Primary Care Unavailable LANIE LUNA Consulting Unavailable NANDINI VILLEGAS Consulting Unavailable BARBARADELLADAM Admitting Unavailable BEDDELADAM Varner Attending Unavailable AA REQUESTED, NEW Primary Care Unavailable RENATO CANTORRICIA E, PERSONAL SECRETARY Admitting Unavaila ble KATHERINE CANTOR E, PERSONAL SECRETARY Attending Unavaila ble CHACORTA REQUESTED, NEW Primary [...] Facility (1 source) NSAIDs Drug allergy (disorder) [facility] Repository Medications Current Medications Medication Drug [...] needed, # 30 cap(s), 2 Refill(s), Pharmacy: [facility], 160, cm, 08/24/22 8:00:00 EDT, Height, kg, 08/24/22 8:00:00 EDT, Dosing Weight Start Date: 08/24/22 Status: Ordered Completed/Discontinued Medications Medication Drug Class(es) Dates Sig (Normalized) Sig (Original) acetaminophen 325 mg / HYDROcodone bitartrate 5 mg oral tablet (3 sources) Opioid Agonist Start: 05-22-2021 End: 05-25-2021 take 1 tablet by mouth every six hours as needed for pain [place] 325- 5 mg oral tablet Dose = [...] (250mg), # 6 tab(s), 0 Refill(s), Pharmacy: [facility] #[id number], Productive cough, 160, cm, 08/24/22 8:00:00 EDT, [...] 10-17-2017 Chronic Other aftercare (1 source) 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 therapy; Translations: [OTH HALFWAY CURRENT DRUG THERAPY] Onset: 0 Episodic Other [...] Body temperature 97.88 [degF] LINDA MARTINEZ MD [facility] 08-26-2022 18:57-0400 Body temperature 97.88 [degF] LINDA MARTINEZ MD [facility] 08-26-2022 18:30-0400 Diastolic Blood Pressure Non-Invasive 72 1 LINDA MARTINEZ MD [facility] 08-26-2022 18:30-0400 Heart rate 80 /min LINDA MARTINEZ MD [facility] 08-26-2022 18:30-0400 Respiratory rate 13 /min LINDA MARTINEZ MD [facility] 08-26-2022 18:30-0400 Systolic Blood Pressure Non-Invasive 130 1 LINDA MARTINEZ MD [facility] 08-26-2022 18:00-0400 Diastolic Blood Pressure Non-Invasive 69 1 LINDA MARTINEZ MD [facility] 08-26-2022 18:00-0400 Heart rate 81 /min LINDA MARTNIEZ MD [facility] 08-26-2022 18:00-0400 Respiratory rate 14 /min LINDA MARTINEZ MD [facility] 08-26-2022 18:00-0400 Systolic Blood Pressure Non-Invasive 127 1 LINDA MARTINEZ MD [facility] 08-26-2022 17:30-0400 Diastolic Blood Pressure Non-Invasive 72 1 LINDA MARTINEZ MD [facility] 08-26-2022 17:30-0400 Heart rate 80 /min LINDA MARTINEZ MD [facility] 08-26-2022 17:30-0400 Respiratory rate 13 /min LINDA MARTINEZ MD [facility] 08-26-2022 17:30-0400 Systolic Blood Pressure Non-Invasive 130 1 LINDA MARTINEZ MD [facility] 08-26-2022 16:07-0400 Body temperature 96.62 [degF] LINDA MARTINEZ MD [facility] 08-18-2022 14:03-0500 Body height 160.7 cm Shayna Mariscal MD Work Phone: [facility] 08-18-2022 14:03-0500 Body mass index (BMI) [Ratio] 31.74 kg/m2 Shayna Mariscal MD Work Phone: [facility] [employer] 08-18-2022 14:03-0500 Body weight 81.92 kg Shayna Mariscal MD Work Phone: [facility] 08-18-2022 14:03-0500 Diastolic blood pressure 79 mm[Hg] Shayna Mariscal MD Work Phone: [facility] [employer] 08-18-2022 14:03-0500 Heart rate 94 /min Shayna Mariscal MD Work Phone: [facility] [employer] 08-18-2022 14:03-0500 Systolic blood pressure 121 mm[Hg] Shayna Mariscal MD Work Phone: [facility] 03-03-2022 09:25-0400 Diastolic Blood Pressure NBP [address] KRYSTINA PUGH MD [facility] 03-03-2022 09:25-0400 Heart rate 80 /min DR KRYSTINA PUGH MD [facility] 03-03-2022 09:25-0400 Respiratory rate 14 /min DR KRYSTINA PUGH MD [facility] 03-03-2022 09:25-0400 Systolic Blood Pressure NBP [address] KRYSTINA PUGH MD [facility] 03-03-2022 09:20-0400 Diastolic Blood Pressure NBP [address] KRYSTINA PUGH MD [facility] 03-03-2022 09:20-0400 Heart rate 73 /min DR KRYSTINA PUGH MD [facility] 03-03-2022 09:20-0400 Respiratory rate 21 /min DR KRYSTINA PUGH MD [facility] 03-03-2022 09:20-0400 Systolic Blood Pressure NBP [address] KRYSTINA PUGH MD [facility] 03-03-2022 09:16-0400 Diastolic Blood Pressure NBP [address] KRYSTINA PUGH MD [facility] 03-03-2022 09:16-0400 Heart rate 78 /min DR KRYSTINA PUGH MD [facility] 03-03-2022 09:16-0400 Respiratory rate 15 /min DR KRYSTINA PUGH MD [facility] 03-03-2022 09:16-0400 Systolic Blood Pressure NBP [address] KRYSTINA PUGH MD [facility] 03-03-2022 07:55-0400 Body height 162.[address] KRYSTINA PUGH MD [facility] 03-03-2022 07:55-0400 Body temperature 98.06 [degF] DR KRYSTINA PUGH MD [facility] 03-03-2022 07:55-0400 Body weight 79.[address] KRYSTINA PUGH MD [facility] 03-03-2022 07:55-0400 Body weight 30.07 kg/m2 DR KRYSTINA PUGH MD [facility] 05-22-2021 05:00-0500 Diastolic blood pressure 79 mm[Hg] RUY RIVERA MD [facility] 05-22-2021 05:00-0500 Heart rate 70 /min RUY RIVERA MD [facility] 05-22-2021 05:00-0500 Mean blood pressure 91 mm[Hg] RUY RIVERA MD [facility] 05-22-2021 05:00-0500 Reason For Taking VItal Signs RUY RIVERA MD [facility] 05-22-2021 05:00-0500 Respiratory rate 14 /min RUY RIVERA MD [facility] 05-22-2021 05:00-0500 Systolic blood pressure 114 mm[Hg] RUY RIVERA MD [facility] 05-22-2021 04:24-0500 Body temperature 98.06 [degF] RUY RIVERA MD [facility] 05-22-2021 04:24-0500 Diastolic blood pressure 97 mm[Hg] RUY RIVERA MD [facility] 05-22-2021 04:24-0500 Heart rate 81 /min RUY RIVERA MD [facility] 05-22-2021 04:24-0500 Mean blood pressure 108 mm[Hg] RUY RIVERA MD [facility] 05-22-2021 04:24-0500 Respiratory rate 16 /min RUY RIVERA MD [facility] 05-22-2021 04:24-0500 Systolic blood pressure 130 mm[Hg] RUY RIVERA MD [facility] Encounters Encounter Date Encounter Type Care Provider Facility Start: 01-16-2023 Telephone encounter Shayna mcdonald MD Work Phone: [facility] [place] Procedures Date Procedure Procedure Detail Performing Clinician Start: 06-08-2020 Lipid 1996 panel - S mikaela or Plasma Shayna Mariscal MD Work Phone: section DR KRYSTINA PUGH MD Plan of Treatment Date Care Activity Detail Author Start: 2031 RSV Immunization aged 60 or older (1 - 1-dose 60+ series) RSV Immunization aged 60 or older (1 - 1-dose 60+ series) [facility] Start: 04-07-2030 DTaP/Tdap/Td Vaccines (2 - Td or Tdap) DTaP/Tdap/Td Vaccines (2 - Td or Tdap) [facility] Start: 06-08-2025 Lipid panel Lipid Panel [facility] Start: 02-09-2023 COVID-19 Vaccine ( season) COVID-19 Vaccine ( season) [facility] Start: 02-09-2023 Influenza vaccination Influenza Vaccine (#1) [facility] Start: 12-15-2022 End: 12-15-2022 Patient encounter procedure 12/15/2022 Office Visit Weight Management Shayna Mariscal MD [address] [place] [address] [facility] [place] Start: 10-19-2022 Zoster Vaccines (2 of 2) Zoster Vaccines (2 of 2) [facility] Start: 02-09-2022 Influenza vaccination Influenza Vaccine (#1) [facility] Start: 2021 Zoster Vaccines (1 of 2) Zoster Vaccines (1 of 2) [facility] Start: 06-02-2021 COVID-19 Vaccine (4 - Booster for Moderna series) COVID-19 Vaccine (4 - Booster for Moderna series) [facility] Start: 02-10-2020 Influenza vaccination Flu vaccine (#1) [place] Start: 03-14-2019 A1C test (Diabetic or Prediabetic) A1C test (Diabetic or Prediabetic) [place] Start: 03-14-2019 HbA1c (Bld) [Mass fraction] A1C test (Diabetic or Prediabetic) [place] Start: 02-09-2019 Influenza vaccination Flu vaccine (#1) [place] Start: 2011 Screening for malignant neoplasm of breast Mammogram [facility] Start: 2001 Screening for malignant neoplasm of cervix [facility] Start: 1992 Cervical cancer screen Cervical cancer screen [place] Start: 1992 Screening for malignant neoplasm of cervix [facility] Start: 1990 DTaP/Tdap/Td vaccine (1 - Tdap) DTaP/Tdap/Td vaccine (1 - Tdap) [place] Start: 1990 Hepatitis A Vaccines (1 of 2 - Risk 2-dose series) Hepatitis A Vaccines (1 of 2 - Risk 2-dose series) [facility] Start: 1990 Hepatitis B vaccine (1 of 3 - Risk 3-dose series) Hepatitis B vaccine (1 of 3 - Risk 3-dose series) [place] Start: 1989 Diabetes mellitus screening Diabetes Screening [facility] Start: 1989 Diabetic microalbuminuria test Diabetic microalbuminuria test [place] Start: 1989 Hepatitis C screening Hepatitis C Screening [facility] Start: 1986 HIV screen HIV screen [place] Start: 1986 HIV screening HIV screen [place] Start: 1983 Depression Screening Depression Screening [facility] Start: 1981 [object Object] Diabetic foot exam [place] Start: 1981 Diabetic foot examination Diabetic foot exam [place] Start: 1981 Diabetic retinal exam Diabetic retinal exam [place], [place] Start: 1981 Lipid panel Lipid [place] Start: 1981 Lipid screen Lip[place] Start: 1977 Pneumococcal 0-64 years Vaccine (1 of 1 - PPSV23) Pneumococcal 0-64 years Vaccine (1 of 1 - PPSV23) [place] Start: 1972 Hepatitis A Vaccines (1 of 2 - Risk 2-dose series) Hepatitis A Vaccines (1 of 2 - Risk 2-dose series) [facility] Start: 1972 MMR Vaccines (1 of 1 - Standard series) MMR Vaccines (1 of 1 - Standard series) [facility] Start: 1971 Hepatitis B Vaccines (1 of 3 - 3-dose series) Hepatitis B Vaccines (1 of 3 - 3-dose series) [facility] Start: 1971 HIV screening HIV Screening [facility] Start: 1971 Screening for malignant neoplasm of colon [facility] Immunizations Immunization Date Immunization Notes Care Provider Fa prema 08-24-2022 zoster vaccine recombinant; Translations: [Shingrix] LINDA MARTINEZ MD [facility] 03-11-2022 influenza virus vaccine, unspecified formulation LINDA [facility] Payers Date Payer Category Payer Unknown [employer] [id number] 2021-Present [address] [place] [address] Commercial [id number] 2017 Unknown [employer] xxxxxxxxxxxxx 2017-Present [phone] [address] [place] [address] xxxxxxxxxxxxx [id number] 2017 Unknown [employer] [id number] 2017-Present [phone] [address] [place] [address] [id number] 2015 Unknown [id number] 1971 Unknown [id number] 1971 Unknown [id number] 1971 Unknown [id number] 1971 Unknown [id number] 1971 Unknown [id number] 1971 Unknown [id number] [id number] 1971 Unknown [id number] 1971 Unknown [id number] [id number] 1971 Unknown [id number] [id number] 1971 Unknown [id number] 1971 Unknown [id number] [id number] 1971 Unknown [id number] [id number] 1971 Unknown [id number] 1971 Unknown [id number] 1959 Unknown [id number] Unknown [id number] Social History Date Type Detail Facility Start: 06-27-2019 End: 12-10-2019 Tobacco smoking status NHIS Never smoker [place] Start: 12-10-2019 End: 07-07-2022 Alcohol intake Ex-drinker (finding) [facility] Start: 04-01-2018 Alcohol Comment less than once a mon [place] Start: 1971 Sex Assigned At Not on file M [place] Start: 04-10-2019 End: 02-25-2020 Tobacco use and exposure Never used [place] Start: 04-10-2019 End: 07-07-2022 Alcohol intake Not Currently [place] Sex Assigned At Female [facility] Start: 08-08-2022 End: 08-18-2022 Exposure to SARS-CoV-2 (event) Not sure [facility] Start: 07-07-2022 History of Social function [facility] Medical Equipment Procedure Code Equipment Code Equipment Origin al Text Equipment Identifier Dates See Instructions , dx E16.2; check BGT due to hypoglycemic symptoms, up to once per day; dispense 100 glucose test strips, # 100 EA, 0 Refill(s), Pharmacy: [facility], 164, cm, 04/04/22 8:05:00 EDT, Height, 86.1 Start: 04-04-2022 See Instructions , dx E16.2; check BGT due to hypoglycemic symptoms, up to once per day; dispense 100 lancets., # 100 EA, 0 Refill(s), Pharmacy: [facility], 164, cm, 04/04/22 8:05:00 EDT, Height, 86.1 Start: 04-04-2022 See Instructions , dx E16.2; check BGT due to hypoglycemic symptoms, up to once per day; dispense 100 glucose test strips, # 100 EA, 0 Refill(s), Pharmacy: [facility], 164, , 04/04/22 8:05:00 EDT, Height, 86.1 Start: 04-04-2022 See Instructions , dx E16.2; check BGT due to hypoglycemic symptoms, up to once per day; dispense 100 lancets., # 100 EA, 0 Refill(s), Pharmacy: [facility], 164, cm, 04/04/22 8:05:00 EDT, Height, 86.1 Start: 04-04-2022 See Instructions , dx E16.2; check BGT due to hypoglycemic symptoms, up to once per day; dispense 100 glucose test strips, # 100 EA, 0 Refill(s), Pharmacy: [facility], 164, , 04/04/22 8:05:00 EDT, Height, 86.1 Start: 04-04-2022 See Instructions , dx E16.2; check BGT due to hypoglycemic symptoms, up to once per day; dispense 100 lancets., # 100 EA, 0 Refill(s), Pharmacy: [facility], 164, cm, 04/04/22 8:05:00 EDT, Height, 86.1 Start: 04-04-2022 See Instructions , dx E16.2; check BGT due to hypoglycemic symptoms, up to once per day; dispense 100 glucose test strips, # 100 EA, 0 Refill(s), Pharmacy: [facility], 164, cm, 04/04/22 8:05:00 EDT, Height, 86.1 Start: 04-04-2022 See Instructions , dx E16.2; check BGT due to hypoglycemic symptoms, up to once per day; dispense 100 lancets., # 100 EA, 0 Refill(s), Pharmacy: [facility], 164, cm, 04/04/22 8:05:00 EDT, Height, 86.1 Start: 04-04-2022 See Instructions , dx E16.2; check BGT due to hypoglycemic symptoms, up to once per day; dispense 100 glucose test strips, # 100 EA, 0 Refill(s), Pharmacy: [facility], 164, cm, 04/04/22 8:05:00 EDT, Height, 86.1 Start: 04-04-2022 See Instructions , dx E16.2; check BGT due to hypoglycemic symptoms, up to once per day; dispense 100 lancets., # 100 EA, 0 Refill(s), Pharmacy: [facility], 164, cm, 04/04/22 8:05:00 EDT, Height, 86.1 Start: 04-04-2022 See Instructions , dx E16.2; check BGT due to hypoglycemic symptoms, up to once per day; dispense 100 glucose test strips, # 100 EA, 0 Refill(s), Pharmacy: [facility], 164, cm, 04/04/22 8:05:00 EDT, Height, 86.1 Start: 04-04-2022 See Instructions , dx E16.2; check BGT due to hypoglycemic symptoms, up to once per day; dispense 100 lancets., # 100 EA, 0 Refill(s), Pharmacy: [facility], 164, cm, 04/04/22 8:05:00 EDT, Height, 86.1 Start: 04-04-2022 See Instructions , dx E16.2; check BGT due to hypoglycemic symptoms, up to once per day; dispense 100 glucose test strips, # 100 EA, 0 Refill(s), Pharmacy: [facility], 164, cm, 04/04/22 8:05:00 EDT, Height, 86.1 Start: 04-04-2022 See Instructions , dx E16.2; check BGT due to hypoglycemic symptoms, up to once per day; dispense 100 lancets., # 100 EA, 0 Refill(s), Pharmacy: [facility], 164, cm, 04/04/22 8:05:00 EDT, Height, 86.1 Start: 04-04-2022 Functional Status Date Assessment Result Facility 08-26-2022 Functional Status Independent [facility] yuki [facility] 03-03-2022 Functional Status Maintained, Less than 8 hours [facility] Clinical Notes 05-22-2021 to 01-16-2023 Telephone Encounter [...] need, if any: NA Medication Name: NA [facility] 01-16-2023 Miscellaneous Notes Name of Caller: Amanda Contact Reason for Appointment: Pt needs to cancel upcoming appt and the pt sill call back to resx. Please advise Office Name: [facility] Medication Refills need, if any: NA Medication Name: NA documented in this encounter [facility] 08-26-2022 Hospital Discharg e instructions Patient Education [...] Swelling, pain or redness in one leg [id number] [employer]. [address] [place] [address]. All rights reserved. This information is not intended as a substitute for professional medical care. Always follow your healthcare professional's instructions. Follow Up Care 08/26/2022 16:01:09 With:FRANKY PEARSON Address: [address] [facility] [place] [address]- [phone] Business (1) When:2-4 days Comments:Schedule appointment as soon as possibleReturn to ED if symptoms worsenClear liquid diet till 12noon and if symptoms do not recur increase as tolerated.Follow up for outpatient stress testing.Return for symptoms as described [facility] 08-26-2022 Note Discharge Instructions Thank you for [...] Return for symptoms as described Where: [address] [facility] [place] [address]- [phone] Business (1) Allergies NKA Medications Please ask [...] Swelling, pain or redness in one leg [phone] [employer]. [address] [place] [address], [place] [address]. All rights reserved. This information is not intended as a substitute for professional medical care. Always follow your healthcare professional's instructions. Additional Information VACCINATE! IT SAVES LIVES! Members of the community who have not yet received the COVID-19 vaccine and would like to receive it can visit one of [facility] vaccine clinics. There are many vaccine clinic locations within the [facility]. For locations and available times, please visit [email or web address] It is important to note that some COVID mobile vaccine clinics are held outdoors and may be canceled in rainy or stormy conditions. To learn more about pediatric vaccinations (ages 5-11), we invite you to visit the [employer] webpage. [email or web address] To learn more about the COVID-19 vaccine, we invite you to visit the CDC website for a list of frequently asked questions. https://www.cdc.gov/coronavirus/2 019-ncov/vaccines/faq.html [facility] Patient Portal Access Instructions: Stay connected with your healthcare team and access your personal medical information anytime with the [facility] Patient Portal. If you would like a full copy of your medical records please contact the [facility] Medical Records Department Sunday through Sunday between 8a.m. and 4:30p.m. Please follow the directions below to access the portal: 1.Access the email account you provided upon registration to the hospital.2.Look for an invitation email from [facility].3.Open the email and access the invitation link: Accept Invitation to [facility]4.Fill in the required mckenzie to create your account. Sign into www.[email or web address] with your username and password that you [...] you will allow to register on the [facility] Patient Portal for access to your information. You can also access the [facility] Patient Portal on the [employer] ramírez. Simply click on Health Records under Health Data and then click on the [employer] logo. HOW TO SAFELY DISPOSE OF PRESCRIPTION [...] Call your local pharmacy or go to [email or web address] to find one close to you.3.Make use of household items: Use cat litter or old coffee grounds to dispose medications if other options are not available. Mix your drugs with these household products, seal them in an airtight container and throw it into the garbage. Call [facility]: [phone] to be sure your drugs can be [...] aware that I should contact my doctor. 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: Date/Time: Relationship to Patient: ____ Witness Name/Signature: Date/Time: [facility] 08-26-2022 Note ORIGINAL EXAMINATION: CT OF THE [...] Date: 08/26/2022 6:34:22 PM Ordering Provider: LINDA [facility] 08-26-2022 Note ORIGINAL EXAMINATION: CT OF THE [...] By: Peewee Vo Electronically signed By Peewee oV Dictated Date: 08/26/2022 6:21:07 PM Prelim Date: 08/26/2022 6:34:22 PM Sign Date: 08/26/2022 6:34:22 PM Ordering Provider: LINDA [facility] 08-26-2022 Note ORIGINAL EXAMINATION: ONE XRAY VIEW [...] Sign Date: 08/26/2022 5:14:04 PM Ordering Provider: [facility] 08-26-2022 Note ORIGINAL EXAMINATION: ONE XRAY [...] Sign Date: 08/26/2022 5:14:04 PM Ordering Provider: [facility] 08-18-2022 Note BARIATRIC CARE IDALIA Nathan [...] was performed.Clinical documentation is updated and completed. [facility] 08-18-2022 History of Presen t illness [...] Exercising: yes If yes: Type: gym with software trainer Times per week: 3 Min per [...] or JAD If YES: [facility]A If yes see Labs Tab Labs [...] updated and completed. documented in this encounter [facility] 07-07-2022 Note BARIATRIC CARE CENTE R POST-OP [...] 4. Weight maintenance after bariatric surgery discussed [facility] 2022 Note ORIGINAL HISTORY: Lung nodule [...] By: Winston Rogers MD Electronically signed By Wniston Rogers MD Dictated Date: 2022 12:40:35 PM Prelim Date: 2022 12:43:51 PM Sign Date: 2022 12:43:51 PM Ordering Provider: [facility] 2022 Note ORIGINAL HISTORY: Lung nodule COMPARISON: [...] Sign Date: 2022 12:43:51 PM Ordering Provider: [facility] 06-07-2022 Note BARIATRIC CARE LOLISE R POST-OP [...] was performed.Clinical documentation is updated and completed. 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) Nephrolithiasis (583217344) Obesity (3896083176) Post-menopausal (902856350) Pre-diabetes (0872703186) Preoperative evaluation of a medical condition to rule out surgical contraindications (TAR required) (421911532) Restless legs (44185274) Right arm pain (924848433) S/P gastric bypass (8492529647) Screening for cardiovascular condition (324110394) Somatic dysfunction of upper extremity (7192883729) Tobacco non-user (422824000) Viral syndrome (79655409) MEDICATIONS: Active Inpt Meds: None Active PRN Meds: None One Time Meds: None Active IV Meds: Lactated Ringers Infusion 1,000 mL (LR 1,000 mL) Start: 03/03/22 7:52:00 EDT, Rate: 50 mL/hr, 03/03/22 7:52:00 EDT ALLERGIES: (1) NKA FAMILY HISTORY: SOCIAL HISTORY: PHYSICAL EXAM: VITALS: ScwuulSdrwSMMybdjKOPhM6ZFD3BfthCs(kg) 03/03 07:5536.7126/65885923TF82/23 79.5 24 Hr Tmax: 36.7 at 03/03 [...] Date:05/30/2022 09:00:00 AM Scheduled Provider:FRANKY PEARSON DO Location:[facility] Appointment Type: OV Future Scheduled Tests [...] MA Mammogram Diagnostic Bilateral w/o Juma 01/01/22 [facility] Val 09-23-2022 Hospital Discharge instructions Patient [...] before eating solid foods. General instructions Take vqqo-shy-zsvwslh and prescription medicines only as told by [...] 09/17/2016 Document Revised: 08/26/2018 Document Reviewed: 09/17/2016 [employer] Patient Education 2020 [employer]. 03/03/2022 09:18:09 Colonoscopy, Adult, Care After Colonoscopy, [...] a slower pace than normal. ?Eat soft, pksn-oe-ejzaef foods. Take gatc-sni-cjmivuz or prescription medicines only as told by [...] 01/09/2005 Document Revised: 03/20/2018 Document Reviewed: 08/08/2016 [employer] Patient [employer] Follow Up Care 01/09/2022 13:05:28 With:KRYSTINA PUGH MD Address: [address] [facility] [address] [place] [phone] When: Unknown Comments:Follow-up as needed [facility] 09-23-2022 Summary of episode note Discharge Instructions Thank you for allowing [facility] to assist you with your healthcare needs. The following is importantdischarge information regarding your hospital visit. Your Care Team FRANKY PEARSON DO What to do next Scheduled Follow-Up Appointments Appointment Type When With Where Contact InformationPC OV 04/04/2022 08:00 AM EDT FRANKY PEARSON DO [address] [address] OV 05/30/2022 09:00 AM EST FRANKY PEARSON DO [address] [address] Follow Up Appointments Follow Up with KRYSTINA PUGH MD When Why: Follow-up as needed Where: [address] [facility] [address] [place] [phone] Allergies NKA Medications Please ask your primary [...] before eating solid foods. General instructions Take nbqp-lxf-xknqyve and prescription medicines only as told by [...] 09/17/2016 Document Revised: 08/26/2018 Document Reviewed: 09/17/2016 [employer] Patient Education 2020 [employer] Colonoscopy, Adult, Care After This sheet [...] slower pace than normal. ? Eat soft, rlxc-gk-iruhja foods. Take tqor-ebi-mlshcqi or prescription medicines only as told by [...] 01/09/2005 Document Revised: 03/20/2018 Document Reviewed: 08/08/2016 [employer] Patient Education 2020 [employer]. Additional Information VACCINATE! IT SAVES LIVES! Members of the community who have not yet received the COVID-19 vaccine and would like to receive it can visit one of [facility] vaccine clinics. There are many vaccine clinic locations within the [facility]. For locations and available times, please visit [email or web address] It is important to note that some COVID mobile vaccine clinics are held outdoors and may be canceled in rainy or stormy conditions. To learn more about pediatric vaccinations (ages 5-11), we invite you to visit the [facility] webpage. [email or web address]://[email or web address]/[email or web address]-[email or web address] [email or web address].htmlTo learn more about the COVID-19 vaccine, we invite you to visit the [employer] website for a list of frequently asked questions. [email or web address].pdf [facility] Patient Portal Access Instructions: Stay connected with your healthcare team and access your personal medical information anytime with the [facility] Patient Portal.If you would like a full copy of your medical records, please contact the [facility] Medical Records Department, Sunday through Sunday between 8a.m. and 4:30p.m. Please follow the directions below to access the portal: 1.Access the email account you provided upon registration to the [facility].2.Look for an invitation email from [facility].3.Open the email and access the invitation link: Accept Invitation to [facility]4.Fill in the required mckenzie to create your account. Sign into www.[employer] with your username and password that you [...] you will allow to register on the [facility] Patient Portal for access to your information. You can also access the [facility] Patient Portal on the [employer] ramírez. Simply click on Health Records under Domob and then click on the [employer] logo. HOW TO SAFELY DISPOSE OF PRESCRIPTION [...] Call your local pharmacy or go to [email or web address] to find one close to you.3.Make use of household items: Use cat litter or old coffee grounds to dispose medications if other options arenot available. Mix your drugs with these household products, seal them in an airtight container andthrow it into the garbage. Call [facility]: [phone] to be sure your drugs can be [...] that I should contact my d octor. 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: Date/Time: Relationship to Patient: Witness Name/Signature: Date/Time: [facility]09-23-2022 Anesthesiology Consult note Patient: AMANDA GRUBBS Age: 51 years Sex: Female : 1970 Associated Diagnoses: None Author: DENVER GUTIERREZ APRN-INFANTRY WEAPONS CREWMEMBER Assessment Postanesthesia assessment Vitals: Vital signs from [...] by DENVER GUTIERREZ on 03/03/2022 09:12 AM [facility]09-23-2022 Anesthesiology Consult note Patient: AMANDA GRUBBS Age: [...] Problem list: Medical Anxiety / SNOMED CT 00025736 / Confirmed Cervical cancer screening / SNOMED CT 3408252504 / Confirmed Abnormal screening computed tomography (CT) of lung / SNOMED CT 6371352272 / Confirmed GERD (gastroesophageal reflux disease) / SNOMED CT 185528480 / Confirmed S/P gastric bypass / SNOMED CT 7856032546 / Confirmed Immunization due / SNOMED CT 951782764 / Confirmed Insomnia / SNOMED CT 802752461 / Confirmed Nephrolithiasis / SNOMED CT 226193762 / Confirmed Major depression in remission / SNOMED CT 41034050 / Confirmed Abnormal mammogram / SNOMED CT 879872415 / Confirmed Hot flashes due to menopause / SNOMED CT 015693131 / Confirmed Obesity / SNOMED CT 2954685153 / Confirmed Right arm pain / SNOMED CT 387896412 / Confirmed Preoperative evaluation of a medical condition to rule out surgical contraindications (TAR required) / SNOMED CT 629766759 / Confirmed Screening for cardiovascular condition / SNOMED CT 762844950 / Confirmed Breast cancer screening / SNOMED CT 847205006 / Confirmed Colon cancer screening / SNOMED CT 046149540 / Confirmed Encounter for well adult exam with abnormal findings / SNOMED CT 620488548 / Confirmed Post-menopausal / SNOMED CT 096797552 / Confirmed Pre-diabetes / SNOMED CT 2203566941 / Confirmed Restless legs / SNOMED CT 98494451 / Confirmed Somatic dysfunction of upper extremity / SNOMED CT 4692970114 / Confirmed Tobacco non-user / SNOMED CT 863877805 / Confirmed Viral syndrome / SNOMED CT 12577521 / Confirmed, Active Problems (24) Abnormal mammogram [...] with small intestine reconstruction to limit absorption (35159). Endometrial ablation (136903703). Diagnostic laparoscopy of female pelvis (757033939). Hysterectomy (842778042). section (23854653). Comments: 03/03/2022 7:52 Rhonda Saxena RN x2 Cholecystectomy (78944574). Colonoscopy (252342517). Comments: 03/03/2022 7:53 Rhonda Saxena RN x2 Cystourethroscopy, with ureteroscopy and/or pyeloscopy; with removal or manipulation of calculus (ureteral catheterization is included) (96193). Entire finger (697616738). Comments: 03/03/2022 7:53 EDT - Rhonda Swenson RN right pinky Social History Social & Psychosocial Habits Alcohol 06/27/2019 Use: Current Frequency: 1-2 times per month Substance Abuse 06/27/2019 Use: Never Tobacco 06/27/2019 Tobacco Use: Never (less than 100 in l Home/Environment 03/03/2022 Domestic Concerns None Living situation: Home/Independent Primary Trauma Counsellor: Self Current Home Treatments None Special Services [...] Vital Signs(last 24 hrs) Last Charted Temp Jxjklzbg60.7 DegC (MAR 03 07:55) Heart Rate Eybpnujpm11 bpm (MAR 03 09:00) Resp Rate 19 br/min (MAR 03 09:00) ONO561 mmHg (MAR 03 08:55) DBP87 mmHg (MAR 03 08:55) BMI30.07 (MAR 03 07:55) Measurements from flowsheet : Measurements 03/03/2022 7:55 EDT Height 162.6 cm Admission Weight 79.5 kg Weight Method Stated Benton Body Weight 54.74 kg BSA Admission 1.85 [...] Surgeon SN - CAt - Role Performed Bioinformatics Scientist 1 SN - CAt - Role Performed INFANTRY WEAPONS CREWMEMBER SN - CAt - Role Performed Professor Of Radiology 03/03/2022 8:53 EDT John Day History and Physical 03/03/2022 8:09 EDT Continuous [...] #1 We May Share PHI Gilles Grubbs [phone] Designated Person #1 Relationship Spouse Designated Person #2 We May Share PHI Willian Grubbs [phone] Designated Person #2 Relationship Daughter Privacy Restrictions Requested None Height 162.6 cm Admission Weight 79.5 kg Weight Method Stated Benton Body Weight 54.74 kg BSA Admission 1.85 [...] On Arrival Family Contact Name and Number Willian GI Prep Sutab GI Prep Completed Yes GI Prep Results Large amount, Watery, Yellow, Clear Radha Motor (2) Moves 4 extremities voluntarily or on command Radha Respirations (2) Spontaneous respiration without support, RR > 10 Radha Blood Pressure (2) BP 20% above or below preanesthetic level Radha Pulse (2) Pulse 20% above or below preanesthetic level Rdaha Oxygen Saturation (2) 94% or more Radha Level of Consciousness (2) Fully awake Radha III Score 12 Barriers to Learning None evident Teaching Method Explanation, Printed materials Preferred Written Language Bruneian Preferred Spoken Language Bruneian Information Given by Patient Patient's Current Physicians [...] Note-Nursing Procedure/Therapy Intake . Assessment and Plan [place] Society of Anesthesiologists (ASA) physical status classification: Class III. Anesthetic Preoperative Plan Anesthetic technique: MAC. Informed consent: signed by patient. Digitally Signed by DENVER GUTIERREZ on 03/03/2022 09:08 AM [facility]09-23-2022 Note [place] ADMISSION HISTORY AND PHYSICIAL CHIEF COMPLAINT: HISTORY OF PRESENT ILLNESS: REVIEW OF SYSTEMS: ACTIVE PROBLEMS: (24) Abnormal mammogram (943540406) Abnormal screening computed tomography (CT) of lung (4836377419) Anxiety (07709265) Breast cancer screening (459375909) Cervical cancer screening (4377143059) Colon cancer screening (031322435) Encounter for well adult exam with abnormal findings (305171018) GERD (gastroesophageal reflux disease) (099754495) Hot flashes due to menopause (902752925) Immunization due (238185753) Insomnia (554504486) Major depression in remission (31146892) Nephrolithiasis (707797685) Obesity (5208529692) Post-menopausal (592731344) Pre-diabetes (5881585157) Preoperative evaluation of a medical condition to rule out surgical contraindications (TAR required) (484523766) Restless legs (74569419) Right arm pain (006172763) S/P gastric bypass (0359727432) Screening for cardiovascular condition (343096401) Somatic dysfunction of upper extremity (0343847690) Tobacco non-user (545450739) Viral syndrome (02013615) MEDICATIONS: Active Inpt Meds: None Active PRN Meds: None One Time Meds: None Active IV Meds: Lactated Ringers Infusion 1,000 mL (LR 1,000 mL) Start: 03/03/22 7:52:00 EDT, Rate: 50 mL/hr, 03/03/22 7:52:00 EDT ALLERGIES: (1) NKA FAMILY HISTORY: SOCIAL HISTORY: PHYSICAL EXAM: VITALS: DqqdyiUjwgHYOufvtQNXfB7GLQ9NkufRq(kg) 03/03 07:5536.7126/96492492KH74/23 79.5 24 Hr Tmax: 36.7 at 03/03 [...] KRYSTINA PUGH MD on 03/03/2022 08:58 AM [facility]03-14-2022 Evaluation + Plan note Future Scheduled Tests [...] 02/22/22 * Complete Metabolic Panel 08/22/21 * [facility] Lab Send out (Blood Specimens) 11/22/21 Radiology* MA Mammogram Diagnostic Bilateral w/o Juma 01/01/22 * US Breast Right Complete 01/01/22 [facility] 03-14-2022 Evaluation + Plan note Future Appointments [...] 02/22/22 * Complete Metabolic Panel 08/22/21 * [facility] Lab Send out (Blood Specimens) 11/22/21 Radiology* CT Thorax w/o Contrast 06/07/22 * MA Mammogram Diagnostic Bilateral w/o Juma 01/01/22 [facility] 12-12-2021 Hospital Discharge instructions Patient Education 05/22/2021 [...] If needed, more treatment may be started. 0245-0030 [employer]. [address] [place] [address], [place] [address]. All rights reserved. This information is not [...] neck Chest pain not caused by coughing 0897-3524 [employer]. [address] [place] [address], [place] [address]. All rights reserved. This information is not [...] foods again, start with small amounts of ynzv-va-ftttvg, low- fat foods. These include apple sauce, [...] increase stomach acid. Don't use aspirin or xrwb-rfl-vhlueit pain and fever medicines, if possible. This includes nonsteroidal anti-inflammatory drugs (NSAIDs). Lose excess weight. Finish eating at least 2 hours before you go to bed or lie down. Raise the head of your bed. 1031-3368 [employer]. [address] [place] [address]. All rights reserved. This information is not intended as a substitute for professional medical care. Always follow yourhealthcare professional's instructions. Follow Up Care 05/22/2021 04:01:53 With:FRANKY PEARSON DO Address: [phone] When:2-4 days [facility] Evaluation + Plan note Future Appointments Appointment Date:05/31/2021 08:30:00 AM Scheduled Provider:FRANKY PEARSON DO Location:[facility] Appointment Type:PC OV Follow Up Appointment Date:06/20/2021 08:30:00 AM Scheduled Provider: Location:[facility] Appointment Type:US Breast Right Complete Future Scheduled Tests Radiology* US Breast Right Complete 06/20/21 [facility] evaluation + Plan note Future Appointments Appointment Date:08/31/2021 08:30:00 AM Scheduled Provider:FRANKY PEARSON DO Location:[facility] Appointment Type:PC OV Follow Up Future Scheduled Tests Radiology* CT Thorax w/o Contrast 06/28/21 [facility] Evaluation + Plan note Future Appointments Appointment Date:08/31/2021 08:30:00 AM Scheduled Provider:FRANKY PEARSON DO Location:[facility] Appointment Type:PC OV Follow Up Future Scheduled Tests Radiology* MA Mammogram Diagnostic Bilateral w/o Juma 01/01/22 * US Breast Right Complete 01/01/22 [facility] Evaluation + Plan note Future Appointments Appointment Date:05/30/2022 09:00:00 AM Scheduled Provider:FRANKY PEARSON DO Location:[facility] Appointment Type:PC OV Future Scheduled Tests [...] 08/22/21 * Complete Metabolic Panel 08/22/21 * [facility] Lab Send out (Blood Specimens) 11/22/21 Radiology* US Breast Right Limited 08/08/22 * CT Thorax w/o Contrast 06/07/22 * MA Mammogram Diagnostic Bilateral w/o Juma 01/01/22 [facility] evaluation + Plan note Future Appointments Appointment Date:05/30/2022 09:00:00 AM Scheduled Provider:FRANKY PEARSON DO Location:[facility] Appointment Type:PC OV Diagnostic Tests Pending [...] MA Mammogram Diagnostic Bilateral w/o Juma 01/01/22 [facility] Evaluation + Plan note Future Appointments Appointment Date:08/24/2022 08:00:00 AM Scheduled Provider:FRANKY PEARSON DO Location:[facility] Appointment Type:PC Wellness Annual Future Scheduled Tests Laboratory* Ferritin 11/22/21 * Folate Level 08/22/21 * Vitamin B12 Level 11/22/21 * Zinc Level 11/22/21 * [facility] Lab Send out (Blood Specimens) 11/22/21 Radiology* US Breast Right Limited 08/08/22 * CT Thorax w/o Contrast 06/23/23 * MA Mammogram Diagnostic Bilateral w/o Juma 01/01/22 [facility] Evaluation + Plan note Future Appointments Appointment Date:08/24/2022 08:00:00 AM Scheduled Provider:FRANKY PEARSON DO Location:[facility] Appointment Type:PC Wellness Annual Future Scheduled Tests Laboratory* Ferritin 11/22/21 * Vitamin B12 Level 11/22/21 * Zinc Level 11/22/21 * [facility] Lab Send out (Blood Specimens) 11/22/21 Radiology* CT Thorax w/o Contrast 06/23/23 * MA Mammogram Diagnostic Bilateral w/o Juma 01/01/22 [facility] Evaluation + Plan note Future Appointments Appointment Date:11/29/2022 08:00:00 AM Scheduled Provider:FRANKY PEARSON DO Location:[facility] Appointment Type:PC OV Future Scheduled Tests Laboratory* [...] 08/24/22 * Complete Metabolic Panel 08/24/22 * [facility] Lab Send out (Blood Specimens) 11/22/21 Radiology* US Breast Right Limited 02/09/23 * BD Bone Density DEXA Axial Skeleton 12/09/22 * CT Thorax w/o Contrast 06/23/23 * MA Mammogram Diagnostic Bilateral w/o Juma 01/01/22 * MA Mammogram Diagnostic Bilateral w/o Juma 02/09/23 [facility] Evaluation + Plan note Future Appointments Appointment Date:09/13/2022 08:00:00 AM Scheduled Provider: Location:[facility] Appointment Type:CV Procedure - AOH Echo Appointment Date:09/19/2022 07:45:00 AM Scheduled Provider: Location:[facility] Appointment Type:HL Plain Stress Test Appointment Date:11/29/2022 08:00:00 AM Scheduled Provider:FRANKY PEARSON DO Location:[facility] Appointment Type:PC OV Diagnostic Tests Pending * Vitamin B1 (Thiamine), Whole Blood 09/02/22 * Zinc Level 09/02/22 Future Scheduled Tests Laboratory* Ferritin 11/22/21 * Vitamin B12 Level 11/22/21 * Zinc Level 11/22/21 * [facility] Lab Send out (Blood Specimens) 11/22/21 Radiology* US Breast Right Limited 02/09/23 * BD Bone Density DEXA Axial Skeleton 12/09/22 * CT Thorax w/o Contrast 06/23/23 * MA Mammogram Diagnostic Bilateral w/o Juma 01/01/22 * MA Mammogram Diagnostic Bilateral w/o Juma 02/09/23 [facility] Evaluation + Plan note Future Appointments Appointment Date:09/19/2022 07:45:00 AM Scheduled Provider: Location:[facility] Appointment Type:HL Plain Stress Test Appointment Date:11/29/2022 08:00:00 AM Scheduled Provider:FRANKY PEARSON DO Location:[facility] Appointment Type:PC OV Future Scheduled Tests Laboratory* Ferritin 11/22/21 * Vitamin B12 Level 11/22/21 * Zinc Level 11/22/21 * [facility] Lab Send out (Blood Specimens) 11/22/21 Radiology* US Breast Right Limited 02/09/23 * BD Bone Density DEXA Axial Skeleton 12/09/22 * CT Thorax w/o Contrast 06/23/23 * MA Mammogram Diagnostic Bilateral w/o Juma 01/01/22 * MA Mammogram Diagnostic Bilateral w/o Juma 02/09/23 [facility] Evaluation note* Diagnosis Pre-diabetes- Primary Other abnormal [...] Narrative No data available for this section [facility] Hospital Discharge instructions No data available for this section [facility] Progress note No data available for this section [facility] Summary Purpose Family History No Family History Records FoundNo Family History Records FoundNo Family History Records FoundNo Family History Records FoundNo Family History Records FoundNo Family History Records FoundNo Family History Records Found Advance Directives Documents on File Type Date Recorded 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 female who presented to [facility] on 04/08/2018 for elective LRYGB. She tolerated [...] OF PROCE DURE: 04/08/2018 SURGEON: Kane Jordan BANKING ANALYST: Ruben Truong MD PREOPERATIVE DIAGNOSIS: ? SANDY [...] OF PROCE DURE: 04/08/2018 SURGEON: Kane Jordan BANKING ANALYST: Ruben Truong MD PREOPERATIVE DIAGNOSIS: ? SANDY [...] DATE CREATED AUTHOR AUTHOR'S ORGANIZ ATION 03/31/2019 [facility] DATE CREATED AUTHOR AUTHOR'S ORGANIZ ATION 01/01/2020 [facility] DATE CREATED AUTHOR AUTHOR'S ORGANIZ ATION 02/03/2020 [facility] DATE CREATED AUTHOR AUTHOR'S ORGANIZ ATION 03/16/2020 [facility] DATE CREATED AUTHOR AUTHOR'S ORGANIZ ATION 09/21/2022 [facility] ([place]) DATE CREATED AUTHOR AUTHOR'S ORGANIZ ATION 01/17/2023 [facility] Care Team (unrecognized sect ion and content) Personnel Name: FRANKY PEARSON DO Address: Address: [address] [place] [address]- Care Team Personnel Name: FRANKY PEARSON DO Position: P4 Physician - Primary Care Member Role: Primary Care Physician Address: Address: [address] [place] [address]- Care Team Related Persons Name: WILLIAN GRUBBS Address: Home [address] [place], [place] [id number] Address: Temporary [address] [place], [place] [phone] Name: ROMIE, MELBA D Address: Home [address] [place], [place] [id number] [place] Address: Temporary [address] [place], [place] [phone] Name: GILLES GRUBBS Address: Home [address] [place], [place] [id number] Care Team Personnel Name: FRANKY PEARSON DO Position: P4 Physician - Primary Care Med Service: Active Provider Member Role: Primary Care Physician Address: Address: [address] [place] [address]- Care Team Related Persons Name: WILLIAN GRUBBS Address: Home [address] [place], [place] [id number] Address: Temporary [address] [place], [place] [id number] Name: MELBA GRUBBS Address: Home [address] [place], [place] [id number] [place] Address: Temporary [address] [place], [place] [phone] Name: GILLES GRUBBS Address: Home [address] [place], [place] [phone] Care Team Personnel Name: FRANKY PEARSON DO Position: P4 Physician - Primary Care Member Role: Primary Care Physician Address: Address: [address] [place] [address]- Care Team Related Persons Name: MELBA GRUBBS Address: Home [address] [place], [place] [id number] [place] Address: Temporary [address] [place], [place] [id number] Name: GILLES GRUBBS Address: Home [address] [place], [place] [id number] Care Team Personnel Name: FRANKY PEARSON DO Position: P4 Physician - Primary Care Member Role: Primary Care Physician Address: Address: [address] [place] [address]- [place] Care Team Related Persons Name: MELBA GRUBBS Address: Home [address] [place], [place] [id number] [place] Address: Temporary [address] [place], [place] [id number] Name: GILLES GRUBBS Address: Home [address] [place], [place] [id number] Care Team Personnel Name: FRANKY PEARSON DO Position: P4 Physician - Primary Care Member Role: Primary Care Physician Address: Address: [address] [facility] [place], [place] [address] Care Team Related Persons Name: MELBA GRUBBS Address: Home [address] [place], [place] [id number] [place] Address: Temporary [address] [place], [place] [id number] Name: GILLES GRUBBS Address: Home [address] [place], [place] [id number] Reason for Visit (unrecogniz ed section and content) Reason Onset Date Comments Appointment 01/16/2023 Care Teams (unrecognized sec tion and content) Varnish Filterer Relationship Specialty Start Date End Date Rio Aburto DO [address] [place] [address] PCP - General 06/25/17 FOR RECORDS PERTAINING [...] BE BASED ON THE PRIMARY CLINICAL RECORDS. [facility] [employer] provides no warranty or guarantee of the accuracy or completeness of information in this document.
== END | disposition home or self-care (01) ==
PROVIDERS: PCP Student in an Organized Health Care Education/Training Program; Referring Provider Student in an Organized Health Care Education/Training Program; Visit Provider Student in an Organized Health Care Education/Training Program
DX: R92.8 Other abnormal and inconclusive findings on diagnostic imaging of breast (principal); Z78.0 Asymptomatic menopausal state; Z13.820 Encounter for screening for osteoporosis
CPT/HCPCS: 76642; 77062; 77066; 77080; G0279

== ENCOUNTER → 2023-07-26 | Outpatient (CLI) | payer OTHER, SELFPAY ==
--- NOTE | 2023-07-26 07:00 | CT_ITS ---
STUDY: CT CHEST WITHOUT CONTRAST REASON FOR EXAM: Female, 53 years old. F/U LUNG NODULES RADIATION DOSAGE (If Supplied By Facility): CTDIvol = ( 8.69 ) mGy, DLP = ( 269.31 ) mGycm TECHNIQUE: Transaxial imaging was performed without the administration of intravenous contrast material. Multiplanar coronal and sagittal images were reformatted. Individualized dose optimization techniques were used for this CT. COMPARISON: Comparison is made with prior outside examination dated June 23, 2022. FINDINGS: CHEST Stable 4.4 mm noncalcified nodule in the medial aspect of the right upper lobe as seen on axial image #60. There is no demonstrated pleural abnormality. Normal heart and pericardium. Stable mildly enlarged mediastinal lymph nodes more prominent in the subcarinal space as well as in the right paratracheal space. Normal hilar regions. Normal unenhanced pulmonary arteries. Normal aorta arch and descending thoracic aorta. There are multi-level degenerative changes of the thoracic spine. Status post subtotal gastrectomy and gastric bypass surgery. CT/Chest without Contrast IMPRESSION: Stable 4.4 mm noncalcified nodule in the medial aspect of the right upper lobe. Stable mildly enlarged mediastinal lymph nodes. Electronically Signed: Kervin Naqvi MD at 9:01 EST ,
--- OUTSIDE RECORDS SUMMARY | 2023-07-26 07:04 | XMS RPT_ITS | CCD ---
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 Name Role Phone Franky Pearson Primary Care Provider Unavailstephanie e BEDADAM SIMPSON Admitting Unavailable BEDDELLADAM Attending Unavailable AA REQUESTED, NEW Primary Care Unavailable LANIE LUNA Consulting Unavailable NANDINI VILLEGAS Consulting Unavailable BARBARADELLADAM Admitting Unavailable BEDDELADAM Varner Attending Unavailable AA REQUESTED, NEW Primary Care Unavailable RENATO CANTORRICIA E, BARREL RIFLER BUTTON Admitting Unavaila ble KATHERINE CANTOR E, BARREL RIFLER BUTTON Attending Unavaila ble CHACORTA REQUESTED, NEW Primary [...] Facility (1 source) NSAIDs Drug allergy (disorder) [facility] Repository Medications Current Medications Medication Drug [...] needed, # 30 cap(s), 2 Refill(s), Pharmacy: [facility], 160, cm, 08/24/22 8:00:00 EDT, Height, kg, 08/24/22 8:00:00 EDT, Dosing Weight Start Date: 08/24/22 Status: Ordered Completed/Discontinued Medications Medication Drug Class(es) Dates Sig (Normalized) Sig (Original) acetaminophen 325 mg / HYDROcodone bitartrate 5 mg oral tablet (3 sources) Opioid Agonist Start: 05-22-2021 End: 05-25-2021 take 1 tablet by mouth every six hours as needed for pain [place] 325- 5 mg oral tablet Dose = [...] (250mg), # 6 tab(s), 0 Refill(s), Pharmacy: [facility] #[id number], Productive cough, 160, cm, 08/24/22 8:00:00 EDT, [...] 10-17-2017 Chronic Other aftercare (1 source) 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; Translations: [OTH SNF CURRENT DRUG THERAPY] Onset: 0 Episodic Other [...] Body temperature 97.88 [degF] LINDA MARTINEZ [facility] 08-26-2022 18:57-0400 Body temperature 97.88 [degF] LINDA MARTINEZ MD [facility] 08-26-2022 18:30-0400 Diastolic Blood Pressure Non-Invasive 72 1 LINDA MARTINEZ MD [facility] 08-26-2022 18:30-0400 Heart rate 80 /min LINDA MARTINEZ MD [facility] 08-26-2022 18:30-0400 Respiratory rate 13 /min LINDA MARTINEZ MD [facility] 08-26-2022 18:30-0400 Systolic Blood Pressure Non-Invasive 130 1 LINDA MARTINEZ MD [facility] 08-26-2022 18:00-0400 Diastolic Blood Pressure Non-Invasive 69 1 LINDA MARTINEZ MD [facility] 08-26-2022 18:00-0400 Heart rate 81 /min LINDA MARTINEZ MD [facility] 08-26-2022 18:00-0400 Respiratory rate 14 /min LINDA MARTINEZ MD [facility] 08-26-2022 18:00-0400 Systolic Blood Pressure Non-Invasive 127 1 LINDA MARTINEZ MD [facility] 08-26-2022 17:30-0400 Diastolic Blood Pressure Non-Invasive 72 1 LINDA MARTINEZ MD [facility] 08-26-2022 17:30-0400 Heart rate 80 /min LINDA MARTINEZ MD [facility] 08-26-2022 17:30-0400 Respiratory rate 13 /min LINDA MARTINEZ MD [facility] 08-26-2022 17:30-0400 Systolic Blood Pressure Non-Invasive 130 1 LINDA MARTINEZ MD [facility] 08-26-2022 16:07-0400 Body temperature 96.62 [degF] LINDA MARTINEZ MD [facility] 08-18-2022 14:03-0500 Body height 160.7 cm Shayna Mariscal MD Work Phone: [facility] 08-18-2022 14:03-0500 Body mass index (BMI) [Ratio] 31.74 kg/m2 Shayna Mariscal MD Work Phone: [facility] [employer] 08-18-2022 14:03-0500 Body weight 81.92 kg Shayna Mariscal MD Work Phone: [facility] 08-18-2022 14:03-0500 Diastolic blood pressure 79 mm[Hg] Shayna Mariscal MD Work Phone: [facility] [employer] 08-18-2022 14:03-0500 Heart rate 94 /min Shayna Mariscal MD Work Phone: [facility] [employer] 08-18-2022 14:03-0500 Systolic blood pressure 121 mm[Hg] Shayna Mariscal MD Work Phone: [facility] 03-03-2022 09:25-0400 Diastolic Blood Pressure NBP [address] KRYSTINA PUGH MD [facility] 03-03-2022 09:25-0400 Heart rate 80 /min DR KRYSTINA PUGH MD [facility] 03-03-2022 09:25-0400 Respiratory rate 14 /min DR KRYSTINA PUGH MD [facility] 03-03-2022 09:25-0400 Systolic Blood Pressure NBP [address] KRYSTINA PUGH MD [facility] 03-03-2022 09:20-0400 Diastolic Blood Pressure NBP [address] KRYSTINA PUGH MD [facility] 03-03-2022 09:20-0400 Heart rate 73 /min DR KRYSTINA PUGH MD [facility] 03-03-2022 09:20-0400 Respiratory rate 21 /min DR KRYSTINA PUGH MD [facility] 03-03-2022 09:20-0400 Systolic Blood Pressure NBP [address] KRYSTINA PUGH MD [facility] 03-03-2022 09:16-0400 Diastolic Blood Pressure NBP [address] KRYSTINA PUGH MD [facility] 03-03-2022 09:16-0400 Heart rate 78 /min DR KRYSTINA PUGH MD [facility] 03-03-2022 09:16-0400 Respiratory rate 15 /min DR KRYSTINA PUGH MD [facility] 03-03-2022 09:16-0400 Systolic Blood Pressure NBP [address] KRYSTINA PUGH MD [facility] 03-03-2022 07:55-0400 Body height 162.[address] KRYSTINA PUGH MD [facility] 03-03-2022 07:55-0400 Body temperature 98.06 [degF] DR KRYSTINA PUGH MD [facility] 03-03-2022 07:55-0400 Body weight 79.[address] KRYSTINA PUGH MD [facility] 03-03-2022 07:55-0400 Body weight 30.07 kg/m2 DR KRYSTINA PUGH MD [facility] 05-22-2021 05:00-0500 Diastolic blood pressure 79 mm[Hg] RUY RIVERA MD [facility] 05-22-2021 05:00-0500 Heart rate 70 /min RUY RIVERA MD [facility] 05-22-2021 05:00-0500 Mean blood pressure 91 mm[Hg] RUY RIVERA MD [facility] 05-22-2021 05:00-0500 Reason For Taking VItal Signs RUY RIVERA MD [facility] 05-22-2021 05:00-0500 Respiratory rate 14 /min RUY RIVERA MD [facility] 05-22-2021 05:00-0500 Systolic blood pressure 114 mm[Hg] RUY RIVERA MD [facility] 05-22-2021 04:24-0500 Body temperature 98.06 [degF] RUY RIVERA MD [facility] 05-22-2021 04:24-0500 Diastolic blood pressure 97 mm[Hg] RUY RIVERA MD [facility] 05-22-2021 04:24-0500 Heart rate 81 /min RUY RIVERA MD [facility] 05-22-2021 04:24-0500 Mean blood pressure 108 mm[Hg] RUY RIVERA MD [facility] 05-22-2021 04:24-0500 Respiratory rate 16 /min RUY RIVERA MD [facility] 05-22-2021 04:24-0500 Systolic blood pressure 130 mm[Hg] RUY RIVERA MD [facility] Encounters Encounter Date Encounter Type Care Provider Facility Start: 01-16-2023 Telephone encounter Shayna mcdonald MD Work Phone: [facility] [place] Procedures Date Procedure Procedure Detail Performing Clinician Start: 06-08-2020 Lipid 1996 panel - S mikaela or Plasma Shayna Mariscal MD Work Phone: section DR KRYSTINA PUGH MD Plan of Treatment Date Care Activity Detail Author Start: 2031 RSV Immunization aged 60 or older (1 - 1-dose 60+ series) RSV Immunization aged 60 or older (1 - 1-dose 60+ series) [facility] Start: 04-07-2030 DTaP/Tdap/Td Vaccines (2 - Td or Tdap) DTaP/Tdap/Td Vaccines (2 - Td or Tdap) [facility] Start: 06-08-2025 Lipid panel Lipid Panel [facility] Start: 02-09-2023 COVID-19 Vaccine ( season) COVID-19 Vaccine ( season) [facility] Start: 02-09-2023 Influenza vaccination Influenza Vaccine (#1) [facility] Start: 12-15-2022 End: 12-15-2022 Patient encounter procedure 12/15/2022 Office Visit Weight Management Shayna Mariscal MD [address] [place] [address] [facility] [place] Start: 10-19-2022 Zoster Vaccines (2 of 2) Zoster Vaccines (2 of 2) [facility] Start: 02-09-2022 Influenza vaccination Influenza Vaccine (#1) [facility] Start: 2021 Zoster Vaccines (1 of 2) Zoster Vaccines (1 of 2) [facility] Start: 06-02-2021 COVID-19 Vaccine (4 - Booster for Moderna series) COVID-19 Vaccine (4 - Booster for Moderna series) [facility] Start: 02-10-2020 Influenza vaccination Flu vaccine (#1) [place], [place] Start: 03-14-2019 A1C test (Diabetic or Prediabetic) A1C test (Diabetic or Prediabetic) [place] Start: 03-14-2019 HbA1c (Bld) [Mass fraction] A1C test (Diabetic or Prediabetic) [place] Start: 02-09-2019 Influenza vaccination Flu vaccine (#1) [place] Start: 2011 Screening for malignant neoplasm of breast Mammogram [facility] Start: 2001 Screening for malignant neoplasm of cervix [facility] Start: 1992 Cervical cancer screen Cervical cancer screen [place], [place] Start: 1992 Screening for malignant neoplasm of cervix [facility] Start: 1990 DTaP/Tdap/Td vaccine (1 - Tdap) DTaP/Tdap/Td vaccine (1 - Tdap) [place] Start: 1990 Hepatitis A Vaccines (1 of 2 - Risk 2-dose series) Hepatitis A Vaccines (1 of 2 - Risk 2-dose series) [facility] Start: 1990 Hepatitis B vaccine (1 of 3 - Risk 3-dose series) Hepatitis B vaccine (1 of 3 - Risk 3-dose series) [place] Start: 1989 Diabetes mellitus screening Diabetes Screening [facility] Start: 1989 Diabetic microalbuminuria test Diabetic microalbuminuria test [place] Start: 1989 Hepatitis C screening Hepatitis C Screening [facility] Start: 1986 HIV screen HIV screen [place], [place] Start: 1986 HIV screening HIV screen [place] Start: 1983 Depression Screening Depression Screening [facility] Start: 1981 [object Object] Diabetic foot exam [place] Start: 1981 Diabetic foot examination Diabetic foot exam [place] Start: 1981 Diabetic retinal exam Diabetic retinal exam [place], [place] Start: 1981 Lipid panel Lipid screen [place] Start: 1981 Lipid screen Lipid screen [place] Start: 1977 Pneumococcal 0-64 years Vaccine (1 of 1 - PPSV23) Pneumococcal 0-64 years Vaccine (1 of 1 - PPSV23) [place] Start: 1972 Hepatitis A Vaccines (1 of 2 - Risk 2-dose series) Hepatitis A Vaccines (1 of 2 - Risk 2-dose series) [facility] Start: 1972 MMR Vaccines (1 of 1 - Standard series) MMR Vaccines (1 of 1 - Standard series) [facility] Start: 1971 Hepatitis B Vaccines (1 of 3 - 3-dose series) Hepatitis B Vaccines (1 of 3 - 3-dose series) [facility] Start: 1971 HIV screening HIV Screening [facility] Start: 1971 Screening for malignant neoplasm of colon [facility] Immunizations Immunization Date Immunization Notes Care Provider Fa prema 08-24-2022 zoster vaccine recombinant; Translations: [Shingrix] LINDA MARTINEZ MD [facility] 03-11-2022 influenza virus vaccine, unspecified formulation [facility] Payers Date Payer Category Payer Unknown [employer] [id number] 2021-Present [address] [place] [address] Commercial [id number] 2017 Unknown [employer] xxxxxxxxxxxxx 2017-Present [phone] [address] [place] [address] xxxxxxxxxxxxx [id number] 2017 Unknown [employer] [id number] 2017-Present [phone] [address] [place] [address] [id number] 2015 Unknown [id number] 1971 Unknown [id number] 1971 Unknown [id number] 1971 Unknown [id number] [id number] 1971 Unknown [id number] [id number] 1971 Unknown [id number] [id number] 1971 Unknown [id number] [id number] 1971 Unknown [id number] [id number] 1971 Unknown [id number] [id number] 1971 Unknown [id number] [id number] 1971 Unknown [id number] [id number] 1971 Unknown [id number] [id number] 1971 Unknown [id number] [id number] 1971 Unknown [id number] [id number] 1971 Unknown [id number] [id number] 1959 Unknown [id number] Unknown [id number] Social History Date Type Detail Facility Start: 06-27-2019 End: 12-10-2019 Tobacco smoking status NHIS Never smoker [place] Start: 12-10-2019 End: 07-07-2022 Alcohol intake Ex-drinker (finding) [facility] Start: 04-01-2018 Alcohol Comment less than once a mon th [place], [place] Start: 1971 Sex Assigned At Not on file M [place] Start: 04-10-2019 End: 02-25-2020 Tobacco use and exposure Never used [place] Start: 04-10-2019 End: 07-07-2022 Alcohol intake Not Currently [place] Sex Assigned At Female [facility] Start: 08-08-2022 End: 08-18-2022 Exposure to SARS-CoV-2 (event) Not sure [facility] Start: 07-07-2022 History of Social function [facility] Medical Equipment Procedure Code Equipment Code Equipment Origin al Text Equipment Identifier Dates See Instructions , dx E16.2; check BGT due to hypoglycemic symptoms, up to once per day; dispense 100 glucose test strips, # 100 EA, 0 Refill(s), Pharmacy: [facility], 164, cm, 04/04/22 8:05:00 EDT, Height, 86.1 Start: 04-04-2022 See Instructions , dx E16.2; check BGT due to hypoglycemic symptoms, up to once per day; dispense 100 lancets., # 100 EA, 0 Refill(s), Pharmacy: [facility], 164, cm, 04/04/22 8:05:00 EDT, Height, 86.1 Start: 04-04-2022 See Instructions , dx E16.2; check BGT due to hypoglycemic symptoms, up to once per day; dispense 100 glucose test strips, # 100 EA, 0 Refill(s), Pharmacy: [facility], 164, , 04/04/22 8:05:00 EDT, Height, 86.1 Start: 04-04-2022 See Instructions , dx E16.2; check BGT due to hypoglycemic symptoms, up to once per day; dispense 100 lancets., # 100 EA, 0 Refill(s), Pharmacy: [facility], 164, cm, 04/04/22 8:05:00 EDT, Height, 86.1 Start: 04-04-2022 See Instructions , dx E16.2; check BGT due to hypoglycemic symptoms, up to once per day; dispense 100 glucose test strips, # 100 EA, 0 Refill(s), Pharmacy: [facility], 164, , 04/04/22 8:05:00 EDT, Height, 86.1 Start: 04-04-2022 See Instructions , dx E16.2; check BGT due to hypoglycemic symptoms, up to once per day; dispense 100 lancets., # 100 EA, 0 Refill(s), Pharmacy: [facility], 164, cm, 04/04/22 8:05:00 EDT, Height, 86.1 Start: 04-04-2022 See Instructions , dx E16.2; check BGT due to hypoglycemic symptoms, up to once per day; dispense 100 glucose test strips, # 100 EA, 0 Refill(s), Pharmacy: [facility], 164, cm, 04/04/22 8:05:00 EDT, Height, 86.1 Start: 04-04-2022 See Instructions , dx E16.2; check BGT due to hypoglycemic symptoms, up to once per day; dispense 100 lancets., # 100 EA, 0 Refill(s), Pharmacy: [facility], 164, cm, 04/04/22 8:05:00 EDT, Height, 86.1 Start: 04-04-2022 See Instructions , dx E16.2; check BGT due to hypoglycemic symptoms, up to once per day; dispense 100 glucose test strips, # 100 EA, 0 Refill(s), Pharmacy: [facility], 164, cm, 04/04/22 8:05:00 EDT, Height, 86.1 Start: 04-04-2022 See Instructions , dx E16.2; check BGT due to hypoglycemic symptoms, up to once per day; dispense 100 lancets., # 100 EA, 0 Refill(s), Pharmacy: [facility], 164, cm, 04/04/22 8:05:00 EDT, Height, 86.1 Start: 04-04-2022 See Instructions , dx E16.2; check BGT due to hypoglycemic symptoms, up to once per day; dispense 100 glucose test strips, # 100 EA, 0 Refill(s), Pharmacy: [facility], 164, cm, 04/04/22 8:05:00 EDT, Height, 86.1 Start: 04-04-2022 See Instructions , dx E16.2; check BGT due to hypoglycemic symptoms, up to once per day; dispense 100 lancets., # 100 EA, 0 Refill(s), Pharmacy: [facility], 164, cm, 04/04/22 8:05:00 EDT, Height, 86.1 Start: 04-04-2022 See Instructions , dx E16.2; check BGT due to hypoglycemic symptoms, up to once per day; dispense 100 glucose test strips, # 100 EA, 0 Refill(s), Pharmacy: [facility], 164, cm, 04/04/22 8:05:00 EDT, Height, 86.1 Start: 04-04-2022 See Instructions , dx E16.2; check BGT due to hypoglycemic symptoms, up to once per day; dispense 100 lancets., # 100 EA, 0 Refill(s), Pharmacy: [facility], 164, cm, 04/04/22 8:05:00 EDT, Height, 86.1 Start: 04-04-2022 Functional Status Date Assessment Result Facility 08-26-2022 Functional Status Independent [facility] yuki [facility] 03-03-2022 Functional Status Maintained, Less than 8 hours [facility] Clinical Notes 05-22-2021 to 01-16-2023 Telephone Encounter [...] need, if any: NA Medication Name: NA [facility] 01-16-2023 Miscellaneous Notes Name of Caller: Amanda Contact Reason for Appointment: Pt needs to cancel upcoming appt and the pt sill call back to resx. Please advise Office Name: [facility] Medication Refills need, if any: NA Medication Name: NA documented in this encounter [facility] 08-26-2022 Hospital Discharg e instructions Patient [...] Swelling, pain or redness in one leg [phone] [employer] [address] [place] [address]. All rights reserved. This information is not intended as a substitute for professional medical care. Always follow your healthcare professional's instructions. Follow Up Care 08/26/2022 16:01:09 With:FRANKY PEARSON Address: [address] [facility] [place] [address]- [phone] Business (1) When:2-4 days Comments:Schedule appointment as soon as possibleReturn to ED if symptoms worsenClear liquid diet till 12noon and if symptoms do not recur increase as tolerated.Follow up for outpatient stress testing.Return for symptoms as described [facility] 08-26-2022 Note Discharge Instructions Thank you for [...] Return for symptoms as described Where: [address] [facility] [place] [address]- [phone] Business (1) Allergies NKA Medications Please ask [...] Swelling, pain or redness in one leg [phone] [employer] [address] [place] [address], [place] [address]. All rights reserved. This information is not intended as a substitute for professional medical care. Always follow your healthcare professional's instructions. Additional Information VACCINATE! IT SAVES LIVES! Members of the community who have not yet received the COVID-19 vaccine and would like to receive it can visit one of [facility] vaccine clinics. There are many vaccine clinic locations within the [facility]. For locations and available times, please visit [email or web address] It is important to note that some COVID mobile vaccine clinics are held outdoors and may be canceled in rainy or stormy conditions. To learn more about pediatric vaccinations (ages 5-11), we invite you to visit the [facility] webpage. [email or web address].html To learn more about the COVID-19 vaccine, we invite you to visit the CDC website for a list of frequently asked questions. https://www.cdc.gov/coronavirus/2 019-ncov/vaccines/faq.html [facility] Patient Portal Access Instructions: Stay connected with your healthcare team and access your personal medical information anytime with the [facility] Patient Portal. If you would like a full copy of your medical records please contact the [facility] Medical Records Department Sunday through Sunday between 8a.m. and 4:30p.m. Please follow the directions below to access the portal: 1.Access the email account you provided upon registration to the hospital.2.Look for an invitation email from [facility].3.Open the email and access the invitation link: Accept Invitation to [facility]4.Fill in the required mckenzie to create your account. Sign into www.[email or web address] with your username and password that you [...] you will allow to register on the [facility] Patient Portal for access to your information. You can also access the [facility] Patient Portal on the Gra[employer] ramírez. Simply click on Health Records under Health Data and then click on the [employer] logo. HOW TO SAFELY DISPOSE OF PRESCRIPTION [...] Call your local pharmacy or go to [email or web address] to find one close to you.3.Make use of household items: Use cat litter or old coffee grounds to dispose medications if other options are not available. Mix your drugs with these household products, seal them in an airtight container and throw it into the garbage. Call [facility]: [phone] to be sure your drugs can be [...] aware that I should contact my doctor. 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 Signature: Date/Time: Relationship to Patient: ____ Witness Name/Signature: Date/Time: [facility] 08-26-2022 Note ORIGINAL EXAMINATION: CT OF [...] Date: 08/26/2022 6:34:22 PM Ordering Provider: LINDA [facility] 08-26-2022 Note ORIGINAL EXAMINATION: CT OF THE [...] Date: 08/26/2022 6:34:22 PM Ordering Provider: LINDA [facility] 08-26-2022 Note ORIGINAL EXAMINATION: ONE XRAY VIEW [...] Sign Date: 08/26/2022 5:14:04 PM Ordering Provider: [facility] 08-26-2022 Note ORIGINAL EXAMINATION: ONE [...] Sign Date: 08/26/2022 5:14:04 PM Ordering Provider: [facility] 08-18-2022 Note BARIATRIC CARE IDALIA [...] was performed.Clinical documentation is updated and completed. 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A If yes see Labs Tab [...] updated and completed. documented in this encounter [facility] 07-07-2022 Note BARIATRIC CARE CENTE R [...] 4. Weight maintenance after bariatric surgery discussed [facility] 2022 Note ORIGINAL HISTORY: Lung nodule [...] Date: 2022 12:43:51 PM Ordering [facility] 2022 Note ORIGINAL HISTORY: Lung nodule [...] Sign Date: 2022 12:43:51 PM Ordering Provider: [facility] 06-07-2022 Note BARIATRIC CARE LOLISE R [...] OF SYSTEMS: ACTIVE PROBLEMS: (24) Abnormal mammogram (307539078) Abnormal screening computed tomography (CT) of lung (4283216253) Anxiety (88985660) Breast cancer screening (880539810) Cervical cancer screening (8782155291) Colon cancer screening (038812579) Encounter for well adult exam with abnormal findings (864973443) GERD (gastroesophageal reflux disease) (506967593) Hot flashes due to menopause (853891032) Immunization due (298242181) Insomnia (931784561) 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) Nephrolithiasis (689393592) Obesity (3797783931) Post-menopausal (085462834) Pre-diabetes (8026555043) Preoperative evaluation of a medical condition to rule out surgical contraindications (TAR required) (862876691) Restless legs (32486264) Right arm pain (374930609) S/P gastric bypass (1315126698) Screening for cardiovascular condition (582398774) Somatic dysfunction of upper extremity (7315904750) Tobacco non-user (746570244) Viral syndrome (08934425) MEDICATIONS: Active Inpt Meds: None Active PRN Meds: None One Time Meds: None Active IV Meds: Lactated Ringers Infusion 1,000 mL (LR 1,000 mL) Start: 03/03/22 7:52:00 EDT, Rate: 50 mL/hr, 03/03/22 7:52:00 EDT ALLERGIES: (1) NKA FAMILY HISTORY: SOCIAL HISTORY: PHYSICAL EXAM: VITALS: MzbocvKyqyDJVhnpdSBWsU5IBE8ZjkuOh(kg) 03/03 07:5536.7126/[id number]/23 79.5 24 Hr Tmax: 36.7 at 03/03 [...] Date:05/30/2022 09:00:00 AM Scheduled Provider:FRANKY PEARSON DO Location:[facility] Appointment Type: OV Future Scheduled Tests [...] MA Mammogram Diagnostic Bilateral w/o Juma 01/01/22 [facility] 09-23-2022 Hospital Discharge instructions Patient Education [...] before eating solid foods. General instructions Take omfv-kvq-ualdugk and prescription medicines only as told by [...] 09/17/2016 Document Revised: 08/26/2018 Document Reviewed: 09/17/2016 [facility] Patient Education 2020 [employer]um. 03/03/2022 09:18:09 Colonoscopy, Adult, Care After Colonoscopy, [...] a slower pace than normal. ?Eat soft, zpll-sf-auydpx foods. Take pezx-eqk-gntazmx or prescription medicines only as told by [...] 01/09/2005 Document Revised: 03/20/2018 Document Reviewed: 08/08/2016 [facility] Patient Education [place]. Follow Up Care 01/09/2022 13:05:28 With:KRYSTINA PUGH MD Address: [address] [address] [place] [address] [phone] When: Unknown Comments:Follow-up as needed [facility] 09-23-2022 Summary of episode note Discharge Instructions Thank you for allowing [facility] to assist you with your healthcare needs. The following is importantdischarge information regarding your hospital visit. Your Care Team FRANKY PEARSON DO What to do next Scheduled Follow-Up Appointments Appointment Type When With Where Contact InformationPC OV 04/04/2022 08:00 AM EDT FRANKY PEARSON DO [address] [address] OV 05/30/2022 09:00 AM EST FRANKY PEARSON DO [address] [address] Follow Up Appointments Follow Up with KRYSTINA PUGH MD When Why: Follow-up as needed Where: [address] [facility] [address] [place] [phone] Allergies NKA Medications Please ask your primary [...] before eating solid foods. General instructions Take sndv-quv-nkkjdwb and prescription medicines only as told by [...] 09/17/2016 Document Revised: 08/26/2018 Document Reviewed: 09/17/2016 [employer] Patient Education 2020 [employer] Colonoscopy, Adult, Care After This sheet [...] slower pace than normal. ? Eat soft, ebig-yx-xcbdmc foods. Take dkjq-zef-rsfvafa or prescription medicines only as told by [...] 01/09/2005 Document Revised: 03/20/2018 Document Reviewed: 08/08/2016 [employer] Patient Education 2020 [employer]. Additional Information VACCINATE! IT SAVES LIVES! Members of the community who have not yet received the COVID-19 vaccine and would like to receive it can visit one of [facility] vaccine clinics. There are many vaccine clinic locations within the [facility]. For locations and available times, please visit [email or web address] It is important to note that some COVID mobile vaccine clinics are held outdoors and may be canceled in rainy or stormy conditions. To learn more about pediatric vaccinations (ages 5-11), we invite you to visit the [employer] [facility] webpage. https://[email or web address]/[email or web address]-[email or web address]-[email or web address] stions.htmlTo learn more about the COVID-19 vaccine, we invite you to visit the [employer] website for a list of frequently asked questions. [email or web address]-[email or web address] _[email or web address]-Questions.pdf [facility] Patient Portal Access Instructions: Stay connected with your healthcare team and access your personal medical information anytime with the [employer] Patient Portal.If you would like a full copy of your medical records, please contact the [facility] Medical Records Department, Sunday through Sunday between 8a.m. and 4:30p.m. Please follow the directions below to access the portal: 1.Access the email account you provided upon registration to the [facility].2.Look for an invitation email from [facility].3.Open the email and access the invitation link: Accept Invitation to [facility]4.Fill in the required mckenzie to create your account. Sign into www.[employer] with your username and password that you [...] you will allow to register on the [employer] Patient Portal for access to your information. You can also access the [employer] Patient Portal on the [employer] ramírez. Simply click on Health Records under [employer] and then click on the [employer] logo. HOW TO SAFELY DISPOSE OF PRESCRIPTION [...] Call your local pharmacy or go to [email or web address] to find one close to you.3.Make use of household items: Use cat litter or old coffee grounds to dispose medications if other options arenot available. Mix your drugs with these household products, seal them in an airtight container andthrow it into the garbage. Call [facility]: [phone] to be sure your drugs can be [...] that I should contact my d octor. 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 Signature: Date/Time: Relationship to Patient: Witness Name/Signature: Date/Time: [facility] Anesthesiology Consult note Patient: AMANDA GRUBBS Age: 51 years Sex: Female : 1970 Associated Diagnoses: None Author: DENVER GUTIERREZ APRN-CASE WORKER Assessment Postanesthesia assessment Vitals: Vital signs from [...] by DENVER GUTIERREZ on 03/03/2022 09:12 AM [facility] Anesthesiology Consult note Patient: AMANDA GRUBBS Age: [...] Problem list: Medical Anxiety / SNOMED CT 06611106 / Confirmed Cervical cancer screening / SNOMED CT 4485485706 / Confirmed Abnormal screening computed tomography (CT) of lung / SNOMED CT 8511660457 / Confirmed GERD (gastroesophageal reflux disease) / SNOMED CT 280357456 / Confirmed S/P gastric bypass / SNOMED CT 7009019968 / Confirmed Immunization due / SNOMED CT 746044607 / Confirmed Insomnia / SNOMED CT 619087280 / Confirmed Nephrolithiasis / SNOMED CT 285404957 / Confirmed Major depression in remission / SNOMED CT 07825533 / Confirmed Abnormal mammogram / SNOMED CT 794201664 / Confirmed Hot flashes due to menopause / SNOMED CT 044050883 / Confirmed Obesity / SNOMED CT 8516240417 / Confirmed Right arm pain / SNOMED CT 173982930 / Confirmed Preoperative evaluation of a medical condition to rule out surgical contraindications (TAR required) / SNOMED CT 725679955 / Confirmed Screening for cardiovascular condition / SNOMED CT 330796248 / Confirmed Breast cancer screening / SNOMED CT 949383593 / Confirmed Colon cancer screening / SNOMED CT 768461533 / Confirmed Encounter for well adult exam with abnormal findings / SNOMED CT 339200104 / Confirmed Post-menopausal / SNOMED CT 070233466 / Confirmed Pre-diabetes / SNOMED CT 8382035601 / Confirmed Restless legs / SNOMED CT 01144373 / Confirmed Somatic dysfunction of upper extremity / SNOMED CT 8488934866 / Confirmed Tobacco non-user / SNOMED CT 653283332 / Confirmed Viral syndrome / SNOMED CT 94807860 / Confirmed, Active Problems (24) Abnormal mammogram [...] with small intestine reconstruction to limit absorption (26347). Endometrial ablation (163315695). Diagnostic laparoscopy of female pelvis (917186487). Hysterectomy (550621335). section (91224518). Comments: 03/03/2022 7:52 Rhonda Saxena RN x2 Cholecystectomy (38619055). Colonoscopy (687395127). Comments: 03/03/2022 7:53 Rhonda Saxena RN x2 Cystourethroscopy, with ureteroscopy and/or pyeloscopy; with removal or manipulation of calculus (ureteral catheterization is included) (46460). Entire finger (213235826). Comments: 03/03/2022 7:53 EDT - Rhonda Swenson RN right pinky Social History Social & Psychosocial Habits Alcohol 06/27/2019 Use: Current Frequency: 1-2 times per month Substance Abuse 06/27/2019 Use: Never Tobacco 06/27/2019 Tobacco Use: Never (less than 100 in l Home/Environment 03/03/2022 Domestic Concerns None Living situation: Home/Independent Primary Staff Development Nurse: Self Current Home Treatments None Special Services [...] Vital Signs(last 24 hrs) Last Charted Temp Nbzbtzin55.7 DegC (MAR 03 07:55) Heart Rate Yyglcpbrl96 bpm (MAR 03 09:00) Resp Rate 19 br/min (MAR 03 09:00) SDZ627 mmHg (MAR 03 08:55) DBP87 mmHg (MAR 03 08:55) BMI30.07 (MAR 03 07:55) Measurements from flowsheet : Measurements 03/03/2022 7:55 EDT Height 162.6 cm Admission Weight 79.5 kg Weight Method Stated [place] Body Weight 54.74 kg BSA Admission 1.85 [...] Surgeon SN - CAt - Role Performed Client Service Manager 1 SN - CAt - Role Performed CASE WORKER SN - CAt - Role Performed Um Specialist 03/03/2022 8:53 EDT Chambers History and Physical 03/03/2022 8:09 EDT Continuous [...] #1 We May Share PHI Gilles Grubbs [phone] Designated Person #1 Relationship Spouse Designated Person #2 We May Share PHI Willian Grubbs [phone] Designated Person #2 Relationship Daughter Privacy Restrictions Requested None Height 162.6 cm Admission Weight 79.5 kg Weight Method Stated [place] Body Weight 54.74 kg BSA Admission 1.85 [...] Method Explanation, Printed materials Preferred Written Language [place] Preferred Spoken Language [place] Information Given by Patient Patient's Current Physicians [...] Note-Nursing Procedure/Therapy Intake . Assessment and Plan [place] Society of Anesthesiologists (ASA) physical status classification: Class III. Anesthetic Preoperative Plan Anesthetic technique: MAC. Informed consent: signed by patient. Digitally Signed by DENVER GUTIERREZ on 03/03/2022 09:08 AM [facility] Note [place] ADMISSION HISTORY AND PHYSICIAL CHIEF COMPLAINT: HISTORY OF PRESENT ILLNESS: REVIEW OF SYSTEMS: ACTIVE PROBLEMS: (24) Abnormal mammogram (410114390) Abnormal screening computed tomography (CT) of lung (9644797233) Anxiety (69511119) Breast cancer screening (873529142) Cervical cancer screening (3531793833) Colon cancer screening (191122448) Encounter for well adult exam with abnormal findings (267612075) GERD (gastroesophageal reflux disease) (490113547) Hot flashes due to menopause (665629564) Immunization due (707825613) Insomnia (396400418) Major depression in remission (88429420) Nephrolithiasis (894456692) Obesity (9336348113) Post-menopausal (512944758) Pre-diabetes (3004490484) Preoperative evaluation of a medical condition to rule out surgical contraindications (TAR required) (594394485) Restless legs (54613582) Right arm pain (886039498) S/P gastric bypass (2305833779) Screening for cardiovascular condition (460014987) Somatic dysfunction of upper extremity (2117904327) Tobacco non-user (647152055) Viral syndrome (33114835) MEDICATIONS: Active Inpt Meds: None Active PRN Meds: None One Time Meds: None Active IV Meds: Lactated Ringers Infusion 1,000 mL (LR 1,000 mL) Start: 03/03/22 7:52:00 EDT, Rate: 50 mL/hr, 03/03/22 7:52:00 EDT ALLERGIES: (1) NKA FAMILY HISTORY: SOCIAL HISTORY: PHYSICAL EXAM: VITALS: LgeixeGturQNLbfyhLEMdA2KMG4QydkWn(kg) 03/03 07:5536.7126/59492940DL30/23 79.5 24 Hr Tmax: 36.7 at 03/03 [...] KRYSTINA PUGH MD on 03/03/2022 08:58 AM [facility] Evaluation + Plan note Future Scheduled Tests [...] 02/22/22 * Complete Metabolic Panel 08/22/21 * [facility] Lab Send out (Blood Specimens) 11/22/21 Radiology* MA Mammogram Diagnostic Bilateral w/o Juma 01/01/22 * US Breast Right Complete 01/01/22 [facility] 03-14-20[facility] Evaluation + Plan note Future Appointments [...] 02/22/22 * Complete Metabolic Panel 08/22/21 * [facility] Lab Send out (Blood Specimens) 11/22/21 Radiology* CT Thorax w/o Contrast 06/07/22 * MA Mammogram Diagnostic Bilateral w/o Juma 01/01/22 [facility] 12-12-2021 Hospital Discharge instructions Patient Education 05/22/2021 [...] If needed, more treatment may be started. 7303-4008 [employer] [address] [place] [address], [place] [address]. All rights reserved. This information is not [...] neck Chest pain not caused by coughing 7244-6223 [employer] [address] [place] [address], [place] [address]. All rights reserved. This information is not [...] foods again, start with small amounts of omqj-yn-mbghxv, low- fat foods. These include apple sauce, [...] increase stomach acid. Don't use aspirin or iocs-ntu-mmurfhq pain and fever medicines, if possible. This includes nonsteroidal anti-inflammatory drugs (NSAIDs). Lose excess weight. Finish eating at least 2 hours before you go to bed or lie down. Raise the head of your bed. 5675-45[address] [employer] [address] [place] [address]. All rights reserved. This information is not intended as a substitute for professional medical care. Always follow yourhealthcare professional's instructions. Follow Up Care 05/22/2021 04:01:53 With:FRANKY PEARSON DO Address: [phone] When:2-4 days [facility] Evaluation + Plan note Future Appointments Appointment Date:05/31/2021 08:30:00 AM Scheduled Provider:FRANKY PEARSON DO Location:[facility] Appointment Type:PC OV Follow Up Appointment Date:06/20/2021 08:30:00 AM Scheduled Provider: Location:[facility] Appointment Type:US Breast Right Complete Future Scheduled Tests Radiology* US Breast Right Complete 06/20/21 [facility] evaluation + Plan note Future Appointments Appointment Date:08/31/2021 08:30:00 AM Scheduled Provider:FRANKY PEARSON DO Location:[facility] Appointment Type:PC OV Follow Up Future Scheduled Tests Radiology* CT Thorax w/o Contrast 06/28/21 [facility] Evaluation + Plan note Future Appointments Appointment Date:08/31/2021 08:30:00 AM Scheduled Provider:FRANKY PEARSON DO Location:[facility] Appointment Type:PC OV Follow Up Future Scheduled Tests Radiology* MA Mammogram Diagnostic Bilateral w/o Juma 01/01/22 * US Breast Right Complete 01/01/22 [facility] Evaluation + Plan note Future Appointments Appointment Date:05/30/2022 09:00:00 AM Scheduled Provider:FRANKY PEARSON DO Location:[facility] Appointment Type:PC OV Future Scheduled Tests [...] 08/22/21 * Complete Metabolic Panel 08/22/21 * [facility] Lab Send out (Blood Specimens) 11/22/21 Radiology* US Breast Right Limited 08/08/22 * CT Thorax w/o Contrast 06/07/22 * MA Mammogram Diagnostic Bilateral w/o Juma 01/01/22 [facility] evaluation + Plan note Future Appointments Appointment Date:05/30/2022 09:00:00 AM Scheduled Provider:FRANKY PEARSON DO Location:[facility] Appointment Type:PC OV Diagnostic Tests Pending [...] MA Mammogram Diagnostic Bilateral w/o Juma 01/01/22 [facility] Evaluation + Plan note Future Appointments Appointment Date:08/24/2022 08:00:00 AM Scheduled Provider:FRANKY PEARSON DO Location:[facility] Appointment Type:PC Wellness Annual Future Scheduled Tests Laboratory* Ferritin 11/22/21 * Folate Level 08/22/21 * Vitamin B12 Level 11/22/21 * Zinc Level 11/22/21 * [facility] Lab Send out (Blood Specimens) 11/22/21 Radiology* US Breast Right Limited 08/08/22 * CT Thorax w/o Contrast 06/23/23 * MA Mammogram Diagnostic Bilateral w/o Juma 01/01/22 [facility] Evaluation + Plan note Future Appointments Appointment Date:08/24/2022 08:00:00 AM Scheduled Provider:FRANKY PEARSON DO Location:[facility] Appointment Type:PC Wellness Annual Future Scheduled Tests Laboratory* Ferritin 11/22/21 * Vitamin B12 Level 11/22/21 * Zinc Level 11/22/21 * [facility] Lab Send out (Blood Specimens) 11/22/21 Radiology* CT Thorax w/o Contrast 06/23/23 * MA Mammogram Diagnostic Bilateral w/o Juma 01/01/22 [facility] Evaluation + Plan note Future Appointments Appointment Date:11/29/2022 08:00:00 AM Scheduled Provider:FRANKY PEARSON DO Location:[facility] Appointment Type:PC OV Future Scheduled Tests Laboratory* [...] 08/24/22 * Complete Metabolic Panel 08/24/22 * [facility] Lab Send out (Blood Specimens) 11/22/21 Radiology* US Breast Right Limited 02/09/23 * BD Bone Density DEXA Axial Skeleton 12/09/22 * CT Thorax w/o Contrast 06/23/23 * MA Mammogram Diagnostic Bilateral w/o Juma 01/01/22 * MA Mammogram Diagnostic Bilateral w/o Juma 02/09/23 [facility] Evaluation + Plan note Future Appointments Appointment Date:09/13/2022 08:00:00 AM Scheduled Provider: Location:[facility] Appointment Type:CV Procedure - AOH Echo Appointment Date:09/19/2022 07:45:00 AM Scheduled Provider: Location:[facility] Appointment Type:HL Plain Stress Test Appointment Date:11/29/2022 08:00:00 AM Scheduled Provider:FRANKY PEARSON DO Location:[facility] Appointment Type:PC OV Diagnostic Tests Pending * Vitamin B1 (Thiamine), Whole Blood 09/02/22 * Zinc Level 09/02/22 Future Scheduled Tests Laboratory* Ferritin 11/22/21 * Vitamin B12 Level 11/22/21 * Zinc Level 11/22/21 * [facility] Lab Send out (Blood Specimens) 11/22/21 Radiology* US Breast Right Limited 02/09/23 * BD Bone Density DEXA Axial Skeleton 12/09/22 * CT Thorax w/o Contrast 06/23/23 * MA Mammogram Diagnostic Bilateral w/o Juma 01/01/22 * MA Mammogram Diagnostic Bilateral w/o Juma 02/09/23 [facility] Evaluation + Plan note Future Appointments Appointment Date:09/19/2022 07:45:00 AM Scheduled Provider: Location:[facility] Appointment Type:HL Plain Stress Test Appointment Date:11/29/2022 08:00:00 AM Scheduled Provider:FRANKY PEARSON DO Location:[facility] Appointment Type:PC OV Future Scheduled Tests Laboratory* Ferritin 11/22/21 * Vitamin B12 Level 11/22/21 * Zinc Level 11/22/21 * [facility] Lab Send out (Blood Specimens) 11/22/21 Radiology* US Breast Right Limited 02/09/23 * BD Bone Density DEXA Axial Skeleton 12/09/22 * CT Thorax w/o Contrast 06/23/23 * MA Mammogram Diagnostic Bilateral w/o Juma 01/01/22 * MA Mammogram Diagnostic Bilateral w/o Juma 02/09/23 [facility] Evaluation note* Diagnosis Pre-diabetes- Primary Other abnormal [...] Narrative No data available for this section [facility] Hospital Discharge instructions No data available for this section [facility] Progress note No data available for this section [facility] Summary Purpose Family History No Family History Records FoundNo Family History Records FoundNo Family History Records FoundNo Family History Records FoundNo Family History Records FoundNo Family History Records FoundNo Family History Records Found Advance Directives Documents on File Type Date Recorded Patient Director Data Management Expl anation Advance Directives and Living Will Power of Pinion Staker Latest Code Status on File Code Status Date Activated Date Inactivated Comments Full Code 08/30/2018 12:11 PM 08/30/2018 4:55 PM Full Code 04/09/2018 8:24 AM 04/10/2018 2:44 PM Full Code 04/08/2018 7:00 PM 04/09/2018 8:24 AM Full Code 04/08/2018 11:06 AM 04/08/2018 6:41 PM Full Code 11/27/2017 7:08 AM 11/27/2017 4:38 PM Documents on File Type Date Recorded Patient Director Data Management Expl anation ACP-Advance Directive ACP-Power of Pinion Staker Hospital Course Note Discharge Summary Amanda Hood [...] a 47 y.o. female who presented to [facility] on 04/08/2018 for elective LRYGB. She tolerated [...] OF PROCE DURE: 04/08/2018 SURGEON: Kane Jordan ELECTRICAL PROSPECTING OBSERVER: Ruben Truong MD PREOPERATIVE DIAGNOSIS: ? SANDY [...] OF PROCE DURE: 04/08/2018 SURGEON: Kane Jordan ELECTRICAL PROSPECTING OBSERVER: Ruben Truong MD PREOPERATIVE DIAGNOSIS: ? SANDY [...] DATE CREATED AUTHOR AUTHOR'S ORGANIZ ATION 03/31/2019 [facility] DATE CREATED AUTHOR AUTHOR'S ORGANIZ ATION 01/01/2020 [facility] DATE CREATED AUTHOR AUTHOR'S ORGANIZ ATION 02/03/2020 [facility] DATE CREATED AUTHOR AUTHOR'S ORGANIZ ATION 03/16/2020 [facility] DATE CREATED AUTHOR AUTHOR'S ORGANIZ ATION 09/21/2022 [facility] ([place]) DATE CREATED AUTHOR AUTHOR'S ORGANIZ ATION 01/17/2023 [facility] Care Team (unrecognized sect ion and content) Personnel Name: FRANKY PEARSON DO Address: Address: [address] [place] [address]- Care Team Personnel Name: FRANKY PEARSON DO Position: P4 Physician - Primary Care Member Role: Primary Care Physician Address: Address: [address] [place] [address]- Care Team Related Persons Name: WILLIAN GRUBBS Address: Home [address] [place], [place] [id number] Address: Temporary [address] [place], [place] [phone] Name: ROMIE, MELBA D Address: Home [address] [place], [place] [id number] [place] Address: Temporary [address] [place], [place] [phone] Name: GILLES GRUBBS Address: Home [address] [place], [place] [id number] Care Team Personnel Name: FRANKY PEARSON DO Position: P4 Physician - Primary Care Med Service: Active Provider Member Role: Primary Care Physician Address: Address: [address] [place] [address]- Care Team Related Persons Name: WILLIAN GRUBBS Address: Home [address] [place], [place] [phone] Address: Temporary [address] [place], [place] [id number] Name: MELBA GRUBBS Address: Home [address] [place], [place] [id number] [place] Address: Temporary [address] [place], [place] [phone] Name: GILLES GRUBBS Address: Home [address] [place], [place] [phone] Care Team Personnel Name: FRANKY PEARSON DO Position: P4 Physician - Primary Care Member Role: Primary Care Physician Address: Address: [address] [place] [address]- Care Team Related Persons Name: MELBA GRUBBS Address: Home [address] [place], [place] [phone] [place] Address: Temporary [address] [place], [place] [phone] Name: GILLES GRUBBS Address: Home [address] [place], [place] [phone] Care Team Personnel Name: FRANKY PEARSON DO Position: P4 Physician - Primary Care Member Role: Primary Care Physician Address: Address: [address] [place] [address]- [place] Care Team Related Persons Name: MELBA GRUBBS Address: Home [address] [place], [place] [id number] [place] Address: Temporary [address] [place], [place] [phone] Name: GILLES GRUBBS Address: Home [address] [place], [place] [phone] Care Team Personnel Name: FRANKY PEARSON DO Position: P4 Physician - Primary Care Member Role: Primary Care Physician Address: Address: [address] [facility] [place], [place] [address] Care Team Related Persons Name: MELBA GRUBBS Address: Home [address] [place], [place] [phone] [place] Address: [address]porary [address] [place], [place] [phone] Name: GILLES GRUBBS Address: Home [address] [place], [place] [phone] Reason for Visit (unrecogniz ed section and content) Reason Onset Date Comments Appointment 01/16/2023 Care Teams (unrecognized sec tion and content) Bondactor Machine Operator Relationship Specialty Start Date End Date Rio Aburto DO [address] [place] [address] PCP - General 06/25/17 FOR RECORDS PERTAINING [...] BE BASED ON THE PRIMARY CLINICAL RECORDS. [facility] [employer] provides no warranty or guarantee of the accuracy or completeness of information in this document.
== END | disposition home or self-care (01) ==
LOC: CT 06:59
PROVIDERS: PCP Student in an Organized Health Care Education/Training Program; Referring Provider Student in an Organized Health Care Education/Training Program; Visit Provider Student in an Organized Health Care Education/Training Program
DX: R91.8 Other nonspecific abnormal finding of lung field (principal); R59.0 Localized enlarged lymph nodes
CPT/HCPCS: 71250

== ENCOUNTER → 2023-09-12 | Outpatient (CLI) | payer OTHER, SELFPAY ==
[2023-09-12 12:41] LABS: Vitamin B12 364 pg/mL (211-911)
[2023-09-12 12:56] LABS: Ferritin 26 ng/mL (8-252)
[2023-09-16 22:06] LABS: Vitamin B1, Thiamine 72.8 nmol/L (66.5-200.0)
== END | disposition home or self-care (01) ==
LOC: BIMLAB 08:29
PROVIDERS: PCP Student in an Organized Health Care Education/Training Program; Visit Provider Student in an Organized Health Care Education/Training Program
DX: Z98.84 Bariatric surgery status (principal); E53.8 Deficiency of other specified B group vitamins; E61.1 Iron deficiency
CPT/HCPCS: 36415; 82607; 82728; 84425

== ENCOUNTER → 2023-11-27 | Outpatient (CLI) | payer OTHER, SELFPAY | END | disposition home or self-care (01) | LOC: LABSPEC 11:08 | PROVIDERS: PCP Student in an Organized Health Care Education/Training Program; Referring Provider Physician Assistant; Visit Provider Physician Assistant | DX: R30.0 Dysuria (principal) | CPT/HCPCS: 87086; 87088; 87186 ==

== ENCOUNTER → 2023-12-24 | Outpatient (CLI) | payer OTHER, SELFPAY ==
[2023-12-24 12:06] LABS: Hematocrit 38.6 % (37-47); Hemoglobin 12.2 g/dL (12.0-15.0); Mean Corp Hgb Conc 31.6 g/dL (32-36); Mean Corpuscular Volume 94.8 fL (81-99); Mean Platelet Vol. 9.5 fl (6.2-12.0); Platelet Count 291 K/mm3 (150-450); RBC Distribution Width CV 12.7 % (11.6-14.6); Red Blood Count 4.07 M/mm3 (4.2-5.4); White Blood Count 4.9 K/mm3 (4.4-11.0)
[2023-12-24 12:29] LABS: Vitamin B12 271 pg/mL (211-911)
[2023-12-24 13:28] LABS: ALB/GLOB Ratio 1.1 RATIO (0.9-2.4); AST(SGOT) 31 U/L (15-37); Alanine Aminotransfer ALT/SGPT 36 U/L (13-56); Albumin, Serum 3.7 g/dL (3.2-5.0); Alkaline Phosphatase 86 U/L (45-117); Anion Gap 8 (5-15); BUN 10 mg/dL (7-18); BUN/Creat Ratio 12.3 RATIO (10-20); Calcium,Total 9.1 mg/dL (8.5-10.1); Chloride 106 mmol/L (98-107); Creatinine, Serum 0.81 mg/dL (0.55-1.02); EST Glomerular Filtration Rate 79 mL/min (>60); Est Glom Filt Rate - Afr Amer 95 mL/min (>60); Ferritin 31 ng/mL (8-252); Globulin 3.3 g/dL (2.2-4.2); Glucose 58 mg/dL (74-106); Iron 57 ug/dL (50-170); Iron Binding Capacity,Total 289 ug/dL (250-450); PERCENT IRON SATURATION 19.7 % (15.0-55.0); Potassium 4.3 mmol/L (3.5-5.1); Sodium Level 140 mmol/L (136-145); T4 Free Direct 0.74 ng/dL (0.76-1.46); Thyroid Stim Hormone (TSH) 1.17 uIU/mL (0.358-3.74)
[2023-12-24 18:10] LABS: Hemoglobin A1c 5.4 % (3.8-5.6)
== END | disposition home or self-care (01) ==
LOC: BIMLAB 08:43
PROVIDERS: PCP Student in an Organized Health Care Education/Training Program; Referring Provider Student in an Organized Health Care Education/Training Program; Visit Provider Student in an Organized Health Care Education/Training Program
DX: R53.83 Other fatigue (principal)
CPT/HCPCS: 36415; 80053; 82607; 82728; 82746; 83036; 83540; 83550; 84439; 84443; 85027

== ENCOUNTER 2024-01-18 06:46 | Outpatient (CLI) | payer OTHER, SELFPAY ==
--- NOTE | 2024-01-18 06:50 | CT_ITS ---
STUDY: CT CHEST WITHOUT CONTRAST REASON FOR EXAM: Female, 53 years old. FAMILY HISTORY F coronary disease. RADIATION DOSAGE (If Supplied By Facility): CTDIvol = ( 12.19 ) mGy, DLP = ( 195.04 ) mGycm TECHNIQUE: Transaxial imaging was performed without the administration of intravenous contrast material. Cardiac over read examination. Individualized dose optimization techniques were used for this CT. COMPARISON: Comparison is made with prior study dated July 26, 2023. FINDINGS: CHEST Stable 4.4 mm noncalcified nodule in the medial aspect of the right upper lobe as seen on axial image #17. There is no demonstrated pleural abnormality. Mild anterior pericardial thickening. No coronary artery calcification is seen. Normal mediastinum. Calcified bilateral hilar lymph nodes. Normal unenhanced pulmonary arteries. Normal aorta arch and descending thoracic aorta. There are degenerative changes of the thoracic spine. Evidence of prior subtotal gastrectomy for gastric bypass surgery. CT/Limited Chest CT Cardiac Only IMPRESSION: Stable 4.4 mm noncalcified nodule medial aspect of the right upper lobe. Minimal anterior pericardial thickening. No significant coronary artery calcification is seen. Electronically Signed: Kervin Naqvi MD at 9:14 EDT ,
--- NOTE | 2024-01-18 08:55 | CA.SCORE ---
Calcium Scoring Date of Study:: 01/18/24 Indications Indications: Family history of cardiac disease Coronary Calcium Scoring: High-resolution Computed Tomographic imaging of the chest was performed on [01/18/2024], with particular attention paid to the coronary arteries. Images from the examination were analyzed for the presence and extent of coronary artery calcification , using coronary calcium quantification software. The patient tolerated the procedure well and there were no complications. The results of the coronary calcification analysis are provided below. Findings Coronary Artery Left Main (LM): 0 Left Anterior Descending (LAD): 0 Left Circumflex (LCX): 0 Right Coronary Artery (RCA): 0 Total Agatston Score: 0 Percentile Rankin Calcium Scoring Interpretation: Different methods to categorize the overall amount of coronary plaque. Overall amount CAC SIS Visual of coronary plaque P1 Mild -100 <2 1-2 vessels with mild amount of plaque P2 Moderate 101-300 3-4 1-2 vessels with moderate amount, 3 vessels with mild amount of plaque P3 Severe 301-999 5-7 3 vessels with moderate amount, 1 vessel with severe amount of plaque P4 Extensive >1000 >8 2-3 vessels with severe amount of plaque Conclusion: No atherosclerotic plaquing noted.
== END 2024-01-18 23:59 | disposition home or self-care (01) ==
LOC: CT 06:49
PROVIDERS: PCP Student in an Organized Health Care Education/Training Program; Referring Provider Student in an Organized Health Care Education/Training Program; Visit Provider Student in an Organized Health Care Education/Training Program
DX: E78.5 Hyperlipidemia, unspecified (principal); Z82.49 Family history of ischemic heart disease and other diseases of the circulatory system
CPT/HCPCS: 75571; 76380

== ENCOUNTER → 2024-01-28 | Outpatient (CLI) | payer OTHER, SELFPAY | END | disposition home or self-care (01) | LOC: LABSPEC 15:00 | PROVIDERS: PCP Student in an Organized Health Care Education/Training Program; Referring Provider Physician Assistant; Visit Provider Physician Assistant | DX: N39.0 Urinary tract infection, site not specified (principal) | CPT/HCPCS: 87086; 87088 ==

== ENCOUNTER 2024-02-15 08:03 | Outpatient (CLI) | payer OTHER, SELFPAY ==
--- NOTE | 2024-02-15 08:04 | ECHOD_ITS ---
Reason For Study: FAM HX Procedure This was a 2D Doppler, Color Flow transthoracic echocardiogram. Exam performed in department. Left Ventricle Normal LV size. The left ventricular ejection fraction is 55 %. No regional wall motion abnormalities noted. Right Ventricle Normal RV size. Normal systolic function. Atria Normal left atrium. Normal right atrium. Mitral Valve Normal mitral valve. Tricuspid Valve Normal tricuspid valve. Aortic Valve Normal aortic valve. Pulmonic Valve Normal pulmonic valve. Great Vessels Normal aortic root. The pulmonary artery is normal size. Inferior vena cava collapse with respiration. Pericardium/Pleural No pericardial effusion. MMode/2D Measurements & Calculations LVIDd: 4.1 cm IVSd: 1.00 cm LAV(MOD-bp): 48.2 ml LVIDs: 3.7 cm LVPWd: 0.85 cm LAV(MOD-bp) Indexed: 27.8 ml/m2 RVDd: 2.9 cm FS: 10.7 % LAV(MOD-sp2): 57.8 ml LAV(MOD-sp4): 36.5 ml SV(MOD-sp4): 32.6 ml SV(sp4-el): 33.1 ml LVAd ap4: 25.7 cm2 LVLd ap4: 8.4 cm EDV(MOD-sp4): 66.1 ml EDV(sp4-el): 67.0 ml LVAs ap4: 16.7 cm2 LVLs ap4: 7.0 cm ESV(MOD-sp4): 33.5 ml ESV(sp4-el): 33.9 ml EF(MOD-sp4): 49.3 % EF(sp4-el): 49.4 % LA A4 area: 13.8 cm2 LA dimension(2D): 3.2 cm RA A4 area: 13.6 cm2 TAPSE: 2.2 cm Time Measurements MV dec time: 0.19 sec Doppler Measurements & Calculations MV E max eulogio: 75.7 cm/sec Lat Peak E' Eulogio: 13.6 cm/sec Med Peak E' Eulogio: 6.2 cm/sec MV A max eulogio: 70.8 cm/sec E/E' lat: 5.6 E/E' med: 12.2 MV E/A: 1.1 MV V2 max: 83.8 cm/sec Ao V2 max: 134.1 cm/sec MV max P.8 mmHg MV dec slope: 410.5 cm/sec2 Ao max P.2 mmHg MV V2 mean: 58.8 cm/sec Ao V2 mean: 90.3 cm/sec MV mean P.5 mmHg Ao mean P.7 mmHg MV V2 VTI: 25.5 cm Ao V2 VTI: 28.1 cm AV (velocity ratio): 0.82 LV V1 max: 106.9 cm/sec PA V2 max: 96.5 cm/sec LV V1 max P.6 mmHg PA V2 mean: 69.6 cm/sec LV V1 mean P.7 mmHg LV V1 mean: 76.0 cm/sec LV V1 VTI: 23.0 cm ECHO/Echo Complete Interpretation Summary Normal LV size. The left ventricular ejection fraction is 55 %. Structurally normal valves. The global longitudinal strain is normal. The globa l longitudinal strain = -17.5 % (normal). Ordering Physician: Juancarlos Melendrez Referring Physician: Juancarlos Melendrez Performed By: Ana Esparza RCS
== END 2024-02-15 23:59 | disposition home or self-care (01) ==
LOC: CVS 08:03
PROVIDERS: PCP Student in an Organized Health Care Education/Training Program; Referring Provider Student in an Organized Health Care Education/Training Program; Visit Provider Student in an Organized Health Care Education/Training Program
DX: E78.5 Hyperlipidemia, unspecified (principal); E11.9 Type 2 diabetes mellitus without complications; Z82.49 Family history of ischemic heart disease and other diseases of the circulatory system; R07.9 Chest pain, unspecified; R00.2 Palpitations; R53.83 Other fatigue
CPT/HCPCS: 93306

== ENCOUNTER → 2024-03-11 | Outpatient (CLI) | payer OTHER, SELFPAY | END | disposition home or self-care (01) | LOC: LAB.FUTURE 13:23 → BIMLAB 03-26 09:02 | PROVIDERS: PCP Student in an Organized Health Care Education/Training Program; Referring Provider Student in an Organized Health Care Education/Training Program; Visit Provider Student in an Organized Health Care Education/Training Program | DX: E61.1 Iron deficiency (principal); E03.9 Hypothyroidism, unspecified; E53.8 Deficiency of other specified B group vitamins ==

== ENCOUNTER → 2024-03-26 | Outpatient (CLI) | payer OTHER, SELFPAY ==
[2024-03-26 13:07] LABS: Ferritin 19 ng/mL (8-252)
== END | disposition home or self-care (01) ==
LOC: BIMLAB 09:04
PROVIDERS: PCP Student in an Organized Health Care Education/Training Program; Referring Provider Student in an Organized Health Care Education/Training Program; Visit Provider Student in an Organized Health Care Education/Training Program
DX: E61.1 Iron deficiency (principal); E03.9 Hypothyroidism, unspecified; E53.8 Deficiency of other specified B group vitamins
CPT/HCPCS: 36415; 82607; 82728; 84439; 84443

== ENCOUNTER → 2024-06-13 | Outpatient (CLI) | payer OTHER, SELFPAY ==
--- NOTE | 2024-06-13 12:31 | CT_ITS ---
STUDY: CT CHEST WITH CONTRAST REASON FOR EXAM: Female, 53 years old. CHEST PAIN limited chest over read only RADIATION DOSAGE (If Supplied By Facility): CTDIvol = ( 32.38 ) mGy, DLP = ( 914.27 ) mGycm TECHNIQUE: Transaxial imaging was performed following intravenous administration of IV 55mL Isovue-370. Individualized dose optimization techniques were used for this CT. COMPARISON: Comparison is made with prior study dated January 18, 2024. FINDINGS: CHEST Stable 4.6 mm noncalcified nodule in the medial aspect of the right upper lobe. There is no demonstrated pleural abnormality. No significant coronary artery calcification is seen. Minimal anterior pericardial thickening. Normal mediastinum. Calcified bilateral hilar lymph nodes. Normal unenhanced pulmonary arteries. Normal aorta arch and descending thoracic aorta. Normal osseous structures. Fatty infiltration of the liver. Findings suggest a prior subtotal gastrectomy for gastric bypass surgery. CT/Limited Chest CT Cardiac Only IMPRESSION: No evidence of coronary artery calcification. Electronically Signed: Kervin Naqvi MD at 11:17 EST ,
[2024-06-13 12:45] VITALS: BP 125/74; PULSE 74; RESP 18; O2SAT 99; BMI 29.2
[2024-06-13 13:05] VITALS: BP 114/64; PULSE 82
[2024-06-13] MEDS: Nitroglycerin SL (ED/IMG/CATH) 0.4 MG TABLET SL (13:05)
[2024-06-13] MEDS: 0.9% Saline Lock 10 ML Syringe IV (13:05)
[2024-06-13 13:06] VITALS: BP 114/64; PULSE 81; RESP 18; O2SAT 96
[2024-06-13 13:23] LABS: CREATININE FINGERSTICK < 1.0 mg/dL (0.55-1.02); EGFR FINGERSTICK > 60.0000 mL/min (>60)
--- NOTE | 2024-06-13 15:56 | CCTA.WCONT ---
CCTA w/Cont Coronary Arteries Date of Study:: 06/13/24 Chest pain Coronary Calcium Scoring: High-resolution Computed Tomographic imaging of the chest was performed on [06/13/2024], with particular attention paid to the coronary arteries. Intravenous contrast agent was administered per protocol and images reconstructed and displayed. LEFT MAIN CORONARY ARTERY: This arises from the left coronary cusp with no stenosis present. [] LEFT ANTERIOR DESCENDING CORONARY ARTERY: This arises from the left main coronary artery and gives off 2 diagonal branches and then courses towards the apex of the ventricle. No significant coronary stenosis is present. [] LEFT CIRCUMFLEX CORONARY ARTERY: This arises from the left main coronary artery and courses in the AV groove giving off 2 obtuse marginal branches with no stenosis noted. [] RIGHT CORONARY ARTERY: Dominant vessel from the right coronary cusp given of an acute marginal branch and terminating with a posterior descending artery and posterolateral vessel. No significant stenosis noted in this vessel. [] THORACIC AORTA: [] PULMONARY ARTERY: [] LEFT ATRIUM/APPENDAGE: [] MITRAL VALVE: [] AORTIC VALVE: [] LEFT VENTRICLE: [] CORONARY CALCIUM SCORE: Not performed but no obvious coronary calcification is seen. Conclusion: CT angiogram demonstrating no coronary atherosclerotic plaquing present. []
== END | disposition home or self-care (01) ==
LOC: CT 12:29
PROVIDERS: PCP Student in an Organized Health Care Education/Training Program; Referring Provider Internal Medicine Cardiovascular Disease; Visit Provider Internal Medicine Cardiovascular Disease
DX: I20.9 Angina pectoris, unspecified (principal)
CPT/HCPCS: 75574; 76380; Q9967

== ENCOUNTER → 2024-06-30 | Outpatient (CLI) | payer OTHER, SELFPAY ==
--- NOTE | 2024-06-30 18:45 | CT_ITS ---
STUDY: CT CHEST WITHOUT CONTRAST REASON FOR EXAM: Female, 54 years old. Evaluate lung nodule noted on cardiac CT RADIATION DOSAGE (If Supplied By Facility): CTDIvol = ( 12.09 ) mGy, DLP = ( 401.71 ) mGycm TECHNIQUE: Transaxial imaging was performed without the administration of intravenous contrast material. Multiplanar coronal and sagittal images were reformatted. Individualized dose optimization techniques were used for this CT. COMPARISON: Comparison is made with prior study dated June 13, 2024. FINDINGS: CHEST Stable 4.6 mm well-defined nodule in the anterior medial aspect of the right upper lobe as seen on axial image #16. There is no demonstrated pleural abnormality. Normal heart and pericardium. No significant coronary artery calcification is seen. Normal mediastinum. Calcified bilateral hilar lymph nodes. Normal unenhanced pulmonary arteries. Normal aorta arch and descending thoracic aorta. Normal osseous structures. Findings suggestive prior subtotal gastrectomy. CT/Chest without Contrast IMPRESSION: Stable 4.6 mm well-defined nodule in the anterior medial aspect of the right upper lobe. 12 month follow-up examination recommended. Electronically Signed: Kervin Naqvi MD at 15:48 EST ,
== END | disposition home or self-care (01) ==
LOC: CT 18:42
PROVIDERS: PCP Student in an Organized Health Care Education/Training Program; Referring Provider Nurse Practitioner Family; Visit Provider Nurse Practitioner Family
DX: R93.89 Abnormal findings on diagnostic imaging of other specified body structures (principal)
CPT/HCPCS: 71250

== ENCOUNTER → 2024-07-01 | Outpatient (CLI) | payer OTHER, SELFPAY ==
[2024-07-01 16:33] LABS: Hematocrit 36.8 % (37-47); Hemoglobin 11.7 g/dL (12.0-15.0); Mean Corp Hgb Conc 31.8 g/dL (32-36); Mean Corpuscular Hgb 30.2 pg (27.0-32.0); Mean Corpuscular Volume 94.8 fL (81-99); Mean Platelet Vol. 9.1 fl (6.2-12.0); Platelet Count 288 K/mm3 (150-450); RBC Distribution Width CV 12.6 % (11.6-14.6); RBC Distribution Width SD 43.9 fl (35.1-43.9); Red Blood Count 3.88 M/mm3 (4.2-5.4); White Blood Count 6.6 K/mm3 (4.4-11.0)
[2024-07-01 16:34] LABS: POSITIVE COUNT NO; POSITIVE DIFFERENTIAL NO; POSITIVE MORPHOLOGY NO; Scan Indicated on CBC? Y/N NO
[2024-07-01 16:48] LABS: Vitamin B12 408 pg/mL (211-911)
[2024-07-01 16:50] LABS: Hemoglobin A1c 5.4 % (3.8-5.6)
[2024-07-01 16:59] LABS: ALB/GLOB Ratio 0.9 RATIO (0.9-2.4); AST(SGOT) 12 U/L (15-37); Alanine Aminotransfer ALT/SGPT 18 U/L (13-56); Albumin, Serum 3.7 g/dL (3.2-5.0); Alkaline Phosphatase 108 U/L (45-117); Anion Gap 8 (5-15); BUN 9 mg/dL (7-18); BUN/Creat Ratio 9.7 RATIO (10-20); Calcium,Total 9.5 mg/dL (8.5-10.1); Chloride 106 mmol/L (98-107); Cholesterol 169 mg/dL (200); Creatinine, Serum 0.93 mg/dL (0.55-1.02); EST Glomerular Filtration Rate 67 mL/min (>60); Est Glom Filt Rate - Afr Amer 81 mL/min (>60); Ferritin 34 ng/mL (8-252); Glucose 148 mg/dL (74-106); High Density Lipoprotein 77 mg/dL; Iron 53 ug/dL (50-170); Iron Binding Capacity,Total 326 ug/dL (250-450); PERCENT IRON SATURATION 16.3 % (15.0-55.0); Potassium 4.3 mmol/L (3.5-5.1); Protein, Total 7.7 g/dL (6.4-8.2); Sodium Level 141 mmol/L (136-145); T4 Free Direct 0.87 ng/dL (0.76-1.46); Thyroid Stim Hormone (TSH) 0.846 uIU/mL (0.358-3.740); Triglycerides 105 mg/dL; Very Low Density Lipoprotein 21 mg/dL (5-40)
[2024-07-08 18:07] LABS: Vitamin B1, Thiamine 89.5 nmol/L (66.5-200.0); Zinc, Plasma or Serum 62 ug/dL (44-115)
== END | disposition home or self-care (01) ==
LOC: BIMLAB 14:41
PROVIDERS: PCP Student in an Organized Health Care Education/Training Program; Referring Provider Student in an Organized Health Care Education/Training Program; Visit Provider Student in an Organized Health Care Education/Training Program
DX: Z98.84 Bariatric surgery status (principal); E03.9 Hypothyroidism, unspecified; Z13.6 Encounter for screening for cardiovascular disorders
CPT/HCPCS: 36415; 80053; 80061; 82306; 82607; 82728; 82746; 83036; 83540; 83550; 84425; 84439; 84443; 84630; 85027

== ENCOUNTER 2025-01-16 05:17 | Day surgery (SDC) | payer OTHER, SELFPAY ==
--- NOTE | 2025-01-13 16:45 | PAT.ANESEVAL ---
Pre-Assessment Diagnosis/Proposed Procedure Planned Operative Procedure(s): COLONOSCOPY, EGD Anesthesia History Anesthesia History - sand blaster: Anesthesia History - sand blaster Hx Hospitalization No 01/13/25 13:38 Any Problems With Anesthesia Yes: N/V 01/13/25 13:38 Cholinesterase deficiency No 01/13/25 13:38 You/Your Family Experience No 01/13/25 13:38 fever (hyperthermia) with Relationship Recent Exposure to Contagious Disease Does patient have nerve No 01/13/25 13:38 stimulator Patient instructed to have device shut off --Does patient have Pacemaker or ICD? When Was Last Pacemaker Check QUESTION #4 FULL TEXT: You/Your Family Experience fever (hyperthermia) with Anesthesia Last Oral Intake Last Oral intake: Last Oral Intake NPO since Meds taken in AM with sips of water? Meds patient instructed to take am of surgery PONV PONV - sand blaster: PONV - sand blaster Female No 01/13/25 13:38 HX of Motion Sickness Yes 01/13/25 13:38 HX of N/V After Surgery Yes 01/13/25 13:38 Non-Smoker Yes 01/13/25 13:38 Duration of Surgery greater No 01/13/25 13:38 than 60 minutes Number of Risk Factors 3 01/13/25 13:38 PONV Score Moderate Risk 01/13/25 13:38 Height & Weight Height & Weight: Anesthesia: Height & Weight Height 5 ft 3 in 11/26/24 09:57 Respiratory Assessment Respiratory Assessment - sand blaster: Respiratory Tract Infection Hx - sand blaster Hx Respiratory Tract Infection No 01/13/25 13:38 STOP Sleep Apnea STOP Sleep Apnea - sand blaster: STOP Sleep Apnea - sand blaster Hx Hypertension No 01/13/25 13:38 Hx Sleep Apnea No 01/13/25 13:38 CPAP BIPAP Do you snore loudly (louder No 01/13/25 13:38 than talking or can be heard Do you often feel tired/ No 01/13/25 13:38 fatigued/ sleepy during daytime? Has anyone observed you stop No 01/13/25 13:38 breathing during sleep? STOP Results Negative 01/13/25 13:38 QUESTION #5 FULL TEXT : Do you snore loudly (louder than talking or can be heard through closed doors)? 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 Specify any problems Hx of Preganancy in last 3 No 01/13/25 13:38 Months Nurse Filling Out Transfusion [email or web address] 01/13/25 13:38 & Questions: Date: 01/13/25 01/13/25 13:38 Time: 13:41 01/13/25 13:38 Patient unable to answer at this time (ie. confused, unrespo /Reproduction History /Reproductive History - sand blaster: /Reproductive Hx- sand blaster Hx Now Gestational Age (in weeks): EDC: Hx Hx Para Hx Section SAB PFSH Medical History (Updated 01/13/25 @ 13:48 by Elver Bush) Kidney stones Wears glasses Wears partial dentures Depression Thyroid disease Back pain Migraine headache Non-smoker History of IBS Gastric reflux History of stress test History of echocardiogram Cardiology follow-up encounter Lower respiratory tract infection Bacterial sinusitis Anginal pain Somatic dysfunction of lower extremity Psoriatic arthritis Prediabetes Family history of ischemic heart disease Anxiety Secondary insomnia Iron deficiency B12 deficiency Major depression in remission Hypothyroid Anemia Acute pharyngitis, unspecified Aphthous ulcer of mouth delivery delivered Home Medications ?Medication ?Instructions ?Recorded ?Last Taken ?Type Diltiazem 2% / Lidocaine 5% #30 grams 11/26/24 Unknown Rx ointment (compound) acetaminophen 325 mg tablet 325 mg PO ONCE PRN pain 11/26/24 Unknown History (Tylenol) bupropion HCl 75 mg tablet 75 mg PO TID 11/26/24 Unknown History docusate sodium 100 mg capsule 100 mg PO BID #60 caps 11/26/24 Unknown Rx fexofenadine 60 mg tablet (Becca 60 mg PO BID PRN allergy symptoms 11/26/24 Unknown History Allergy) linaclotide 290 mcg capsule 290 mcg PO QAM #90 caps 11/26/24 Unknown Rx (Linzess) lorazepam 0.5 mg tablet (Ativan) 0.25 mg PO DAILY PRN anxiety 11/26/24 Unknown History multivitamin 1 tab PO QDAY 11/26/24 Unknown History omeprazole 40 mg capsule,delayed 40 mg PO QDAY #90 caps 11/26/24 Unknown Rx release peg 3350-sod [id number] See Rx Instructions PO .COMPLEX #2 11/26/24 Unknown Rx 178.7-7.3-0.5-1.12-0.9 gram oral mL soln (Suflave) tirzepatide 2.5 mg/0.5 mL 2.5 mg subcut QWEEK 11/26/24 01/04/25 History subcutaneous pen injector (Mounjaro) Allergy/AdvReac Type Severity Reaction Status Date / Time No Known Allergies Allergy Verified 01/13/25 13:36 Family History Unknown Heart disease Cancer Kidney disease Breast cancer Lung cancer CHF (congestive heart failure) Father Myocardial infarction Brother Myocardial infarction Surgical History History of endometrial ablation History of colonoscopy H/O: hysterectomy Hx of cholecystectomy H/O tubal ligation History of weight loss surgery Social History Smoking Status: Never smoker second hand exposure: Yes alcohol intake: current substance use type: does not use caffeine: Yes Audit: Pertinent Findings Pertinent Findings EKG Perinent findings: EKG 05/05/2024. Sinus rhythm Echo (EF%) pertinent findings: Echo 02/15/2024. Normal LV size. EF 55%. Recommendation Anesthesia Recommendation Anesthesia recommendation: OPTIMIZED for anesthesia
--- OUTSIDE RECORDS SUMMARY | 2025-01-16 05:20 | XMS RPT_ITS | CCD ---
Author Organization [facility] CliniSypr Care Team Providers Care Application Security Architect Name Role Phone Franky Pearson Primary Care Provider Unavailabl e BEDDELADAM Johnson Admitting Unavailable BEDDELLADAM Attending Unavailable AA REQUESTED, NEW Primary Care Unavailable LANIE LUNA Consulting Unavailable NANDINI VILLEGAS Consulting Unavailable BARBARADELLADAM Admitting Unavailable BEDDELLADAM Attending Unavailable AA REQUESTED, NEW Primary Care Unavailable KATHERINE CANTOR, AFRICANA STUDIES PROFESSOR Admitting Unavaila ble KATHERINE CANTOR E, AFRICANA STUDIES PROFESSOR Attending Unavaila ble AA REQUESTED, NEW Primary Care Unavailable Franky Pearson Primary Care Provider Unavailabl e LILI MIKE, FRANKY Primary Care Physician [phone] Rio Aburto DO Primary Care Provider [phone] LILI MIKE, FRANKY Attending Unavailable HALKO DO, FRANKY Primary Care Unavailable HALKO DO, FRANKY Attending Unavailable HALKO DO, FRANKY Primary Care Unavailable HALKO DO, FRANKY Attending Unavailable HALKO DO, FRANKY Primary Care Unavailable HALKO DO, FRANKY Attending Unavailable HALKO DO, FRANKY Primary Care Unavailable HALKO DO, FRANKY Attending Unavailable HALKO DO, FRANKY Primary Care Unavailable HALKO DO, FRANKY Attending Unavailable HALKO DO, FRANKY Primary Care Unavailable ROBSON PUGH Attending Unavailable HALKO DO, FRANKY Primary Care Unavailable HALKO DO, FRANKY Attending Unavailable HALKO DO, FRANKY Primary Care Unavailable HALKO DO, FRANKY Attending Unavailable HALKO DO, FRANKY Primary Care Unavailable HALKO DO, FRANKY Attending Unavailable HALKO DO, FRANKY Primary Care Unavailable LINDA MARTINEZ MD Attending Unavailable HALKO DO, FRANKY Primary Care Unavailable SHAYNA ANDRADE Attending Unavailable RIO ABURTO Primary Care Unavailable LOIDA, SHAYNA Attending Unavailable LOIDA, SHAYNA Attending Unavailable LOIDA, SHAYNA Attending Unavailable RIO ABURTO Primary Care Unavailable Rio Aburto DO Primary Care Provider [phone] Dr. Yessi Mcqueen Attending Provider Keisha AFRICANA STUDIES PROFESSOR, AFRICANA STUDIES PROFESSOR-C Rolan Polk Attending Provider Dr. Allan Coleman Attending Provider [phone] Allan Coleman Attending Provider [phone] Lili MIKE, Dr. Bauer Primary Care Provider [phone] Lili MIKE, Dr. Bauer Referring Provider Wen AFRICANA STUDIES PROFESSOR-C, Jose M Attending Provider Nura AFRICANA STUDIES PROFESSOR-C, Moon Melissa Attending Provider Keisha AFRICANA STUDIES PROFESSOR-C, Rolan Polk Referring Provider Dr. Yessi Mcqueen DC Attending Provider Kyle AFRICANA STUDIES PROFESSOR-C, Kiersten Attending Provider Liil MIKE, Dr. Bauer Primary Care Provider Lili MIKE, Dr. Bauer Referring Provider Halko, Franky Attending Unavailable Halko, Franky Referring Unavailable Halko, Franky Primary Care Unavailable Angus Reyes Attending Unavailable Angus Reyes Referring Unavailable Halko, Franky Primary Care Unavailable Keisha AFRICANA STUDIES PROFESSOR, Rolan Polk Attending Unavailable Keisha AFRICANA STUDIES PROFESSORRolan Referring Unavailable Halko, Franky Primary Care Unavailable Halko, Franky Attending Unavailable Halko, Franky Referring Unavailable Halko, Franky Primary Care Unavailable Angus Reyes Attending Unavailable Halko, Franky Referring Unavailable Halko, Franky Primary Care Unavailable Angus Reyes Attending Unavailable Halko, Franky Referring Unavailable Halko, Franky Primary Care Unavailable Halko, Franky Attending Unavailable Halko, Franky Referring Unavailable Halko, Franky Primary Care Unavailable Prah, Santiago Attending Unavailable Prah, Santiago Referring Unavailable Halko, Franky Primary Care Unavailable Virginia, Allan Attending Unavailable Hollingsworth, Franky Referring Unavailable Halko, Franky Primary Care Unavailable Franky Hollingsworth Consulting Unavailable Virginia, Allan Attending Unavailable Halko, Franky Referring Unavailable Halko, Franky Primary Care Unavailable Halko, Franky Consulting Unavailable Hans Rivera Attending Unavailable Halko, Franky Referring Unavailable Halko, Franky Primary Care Unavailable Hans Rivera Attending Unavailable Halko, Franky Referring Unavailable Halko, Franky Primary Care Unavailable Angus Reyes Attending Unavailable Halko, Franky Referring Unavailable Halko, Franky Primary Care Unavailable Hans Rivera Attending Unavailable Halko, Franky Referring Unavailable Halko, Franky Primary Care Unavailable Franky Hollingsworth Attending Unavailable Halko, Franky Referring Unavailable Halko, Franky Primary Care Unavailable Santiago Og Attending Unavailable Halko, Franky Referring Unavailable Halko, Franky Primary Care Unavailable Santiago Og Attending Unavailable Halko, Franky Primary Care Unavailable Halko, Franky Referring Unavailable Halko, Franky Attending Unavailable Halko, Franky Referring Unavailable Halko, Franky Primary Care Unavailable Yessi Mcqueen Attending Unavailable Halko, Franky Referring Unavailable Halko, Franky Primary Care Unavailable Hans Rivera Attending Unavailable Halko, Franky Referring Unavailable Halko, Franky Primary Care Unavailable Criselda Muñoz Attending Unavailable Halko, Franky Primary Care Unavailable Allan Coleman Attending Unavailable Halko, Franky Primary Care Unavailable Rock Pineda Attending Unavailable Halko, Franky Primary Care Unavailable Jose M Carver Attending Unavailable Halko, Franky Referring Unavailable Halko, Franky Primary Care Unavailable dEel, Franky Referring Unavailable Halko, Franky Primary Care Unavailable Franky Hollingsworth Attending Unavailable Moon Lyman Attending Unavailable Rolan Valdes NP Referring Unavailable Halko, Franky Primary Care Unavailable Yessi Mcqueen Attending Unavailable Halko, Franky Referring Unavailable Halko, Franky Primary Care Unavailable Kiersten Wright Attending Unavailable Halko, Franky Referring Unavailable Halko, Franky Primary Care Unavailable Yessi Mcqueen Attending Unavailable Halko, Franky Referring Unavailable Halko, Franky Primary Care Unavailable Halko, Franky Attending Unavailable Halko, Franky Referring Unavailable Halko, Franky Primary Care Unavailable Allergies Allergy Classification Reported Allergen(s) Allergy Type Date of Onset Reaction(s) Facility (1 source) NSAIDs Drug allergy (disorder) [facility] Repository Medications Current Medications Medication Drug Class(es) Dates Sig (Normalized) Sig (Original) 3 ML semaglutide 1.34 MG/ML Pen Injector [Ozempic] (3 sources) Start: 08-24-2022 inject 1 dose by subcutaneous injection every week Ozempic (1 mg dose) 4 mg/3 mL subcutaneous solution Dose : 1 mg =, Subcutaneous, qWeek, # 3 mL, 0 Refill(s) Start Date: 08/24/22 Status: Ordered acetaminophen 325 mg oral tablet (10 sources) Start: 11-26-2024 take 1 tablet by mouth once as needed Acetaminophen (Tylenol) 325 mg tablet Active 325 mg PO ONCE as needed November 26, 2024 12:00am Start: 02-18-2019 acetaminophen 500 mg oral tablet Dose : 1,000 mg = 2 tab(s), Oral, q6hr, PRN for pain, # 100 tab(s), 0 Refill(s) Start Date: 02/18/19 Status: Ordered brompheniramine maleate 0.4 mg/ml / dextromethorphan hydrobromide 2 mg/ml / pseudoephedrine hydrochloride 6 mg/ml oral solution (1 source) alpha-Adrenergic Agonist, Uncompetitive Z-hsveho-L-aspartate Receptor Antagonist, Sigma-1 Agonist Start: 08-26-2022 End: 09-02-2022 take 1 dose by mouth four times daily as needed Bromfed DM oral syrup Dose = 10 mL, Oral, QID, PRN for cold symptoms, X 7 day(s), # 120 mL, 0 Refill(s), Pharmacy: [facility] #[id number], Productive cough, 160, cm, 08/24/22 8:00:00 EDT, Height Start Date: 08/26/22 Stop Date: 09/02/22 Status: Ordered buPROPion hydrochloride 75 mg oral tablet (20 sources) Aminoketone Start: 11-26-2024 Bupropion Hcl 75 mg tablet Active 75 mg PO THREE TIMES A DAY November 26, 2024 12:00am administer 6 hours apart Start: 01-16-2023 End: 04-15-2024 take 1 tablet by mouth once daily Bupropion Hcl (Wellbutrin Sr) 100 mg tablet sustained-release 12 hr Discontinued 100 mg PO DAILY January 16, 2023 12:00am April 15, 2024 12:06pm Start: 03-01-2021 End: 02-20-2023 buPROPion (Wellbutrin) 100 M G tablet 100 mg. 0 11/22/2021 Active take 1 tablet by neha th twice daily buPROPion (WELLBUTRIN) 75 MG tablet Indications: DEPRESSION Take 75 mg by mouth 2 times daily Indications: DEPRESSION 0 Active Calcium Citrate / Vitamin D (4 sources) Start: 07-16-2018 take 500 mg by mouth three times daily Calcium Citrate-Vitamin D (CALCIUM CITRATE +D PO) Indications: supplement Take 500 mg by mouth 3 times daily 0 07/16/2018 Active calcium gluconate 500 mg oral tablet (13 sources) Start: 02-18-2019 calcium gluconate 500 mg oral tablet Dose : 500 mg = 1 tab(s), Oral, TID, 0 Refill(s) Start Date: 02/18/19 Status: Ordered citalopram 20 mg oral tablet (3 sources) Serotonin Reuptake Inhibitor Start: 02-28-2022 End: 05-29-2022 citalopram 20 mg oral tablet Dose : 20 mg = 1 tab(s), Oral, qDay, # 90 tab(s), 0 Refill(s), Pharmacy: [facility], 164, cm, 02/28/22 8:08:00 EDT, Height Start Date: 02/28/22 Stop Date: 05/29/22 Status: Ordered cyclobenzaprine hydrochloride 10 mg oral tablet (1 source) Muscle Relaxant Start: 02-18-2021 cyclobenzaprine 10 mg oral tablet 0 Refill(s) Start Date: 02/18/21 Status: Ordered Diltiazem 2% / Lidocaine 5% Ointment (Compound) ointment (3 sources) Start: 11-26-2024 Diltiazem 2% / Lidocaine 5% Ointment (Compound) ointment Active 0 .ROUTE .MEDSUPPLY 30 0 November 26, 2024 12:00am insert a pea sized amount into rectum TID PRN rectal pain Start: 11-26-2024 Diltiazem 2% / Lidocaine 5% Ointment (Compound) ointment Active 0 .ROUTE .MEDSUPPLY November 26, 2024 12:00am insert a pea sized amount into rectum TID PRN rectal pain DME MISCellaneous (14 sources) Start: 04-04-2022 DME MISCellane ous See Instructions, dx E16.2; check BGT due to hypoglycemic symptoms, up to once per day; dispense one glucometer., # 1 EA, 0 Refill(s), Pharmacy: [facility], Hypoglycemia, 164, cm, 04/04/22 8:05:00 EDT, Height, 86.1 Start Date: 04/04/22 Status: Ordered Start: 04-04-2022 DME MISCellane ous See Instructions, dx E16.2; check BGT due to hypoglycemic symptoms, up to once per day; dispense 100 EtOH wipes, # 100 EA, 0 Refill(s), Pharmacy: [facility], 164, cm, 04/04/22 8:05:00 EDT, Height, 86.1 Start Date: 04/04/22 Status: Ordered docusate sodium 100 mg oral capsule (3 sources) Start: 11-26-2024 take 1 capsule by mouth twice daily Docusate Sodium 100 mg capsule Active 100 mg PO TWICE A DAY 60 2 November 26, 2024 12:00am estradiol 0.5 mg oral tablet (13 sources) Estrogen Start: 08-24-2022 estradiol 0.5 mg oral tablet Dose : 0.5 mg = 1 tab(s), Oral, qDay, # 90 tab(s), 1 Refill(s), Pharmacy: [facility], 160, cm, 08/24/22 8:00:00 EDT, Height, kg, 08/24/22 8:00:00 EDT, Dosing Weight Start Date: 08/24/22 Status: Ordered Start: 11-22-2021 estradiol 0.5 mg oral tablet Dose : 0.5 mg = 1 tab(s), Oral, qDay, # 90 tab(s), 1 Refill(s), Pharmacy: [facility], 163.5, cm, 11/22/21 8:20:00 EDT, Height Start Date: 11/22/21 Status: Ordered Start: 03-25-2021 Estrace 0.5 mg oral tablet Dose : 0.5 mg = 1 tab(s), Oral, qDay, # 90 tab(s), 3 Refill(s), Pharmacy: [facility], 162.6, cm, 02/18/21 8:44:00 EDT, Height, kg, 02/18/21 8:44:00 EDT, Dosing Weight Start Date: 03/25/21 Status: Ordered fexofenadine hydrochloride 60 mg oral tablet (3 sources) Histamine-1 Receptor Antagonist Start: 11-26-2024 take 1 tablet by mouth twice daily as needed Fexofenadine (Becca Allergy) 60 mg tablet Active 60 mg PO TWICE A DAY as needed November 26, 2024 12:00am levoFLOXacin 500 mg oral tablet (1 source) Quinolone Antimicrobial Start: 05-22-2021 End: 05-29-2021 take 1 capsule by mouth every twenty-four hours Levaquin use levoFLOXacin Dose : 500 mg =, Oral, q24h, # 7 cap(s), 0 Refill(s), Abdominal pain, 77.3 Start Date: 05/22/21 Stop Date: 05/29/21 Status: Ordered levothyroxine sodium 0.025 mg oral tablet (6 sources) l-Thyroxine Start: 04-21-2024 Levothyroxine 25 mcg tablet Active 12.5 ug PO daily April 21, 2024 2:17pm Start: 04-15-2024 End: 04-21-2024 take 1 tablet by mouth once daily Levothyroxine 25 mcg tablet Discontinued 25 ug PO daily April 15, 2024 1:00am April 21, 2024 2:26pm linaclotide 0.29 mg oral capsule (3 sources) Guanylate Cyclase-C Agonist Start: 11-26-2024 take 1 capsule by mouth once daily 30 minutes before breakfast Linaclotide (Linzess) 290 mcg capsule Active 290 ug PO EVERY MORNING 90 1 November 26, 2024 12:00am take once daily 30 minutes before breakfast LORazepam 0.5 mg oral tablet (20 sources) Benzodiazepine Start: 11-26-2024 take 0.25 mg by mouth once daily as needed for anxiety Lorazepam (Ativan) 0.5 mg tablet Active 0.25 mg PO DAILY as needed for anxiety November 26, 2024 9:48am Start: 01-16-2023 End: 11-26-2024 take 1 tablet by mouth once daily as needed for anxiety Lorazepam (Ativan) 0.5 mg tablet Discontinued 0.5 mg PO DAILY as needed for anxiety January 16, 2023 12:00am November 26, 2024 9:52am Start: 02-28-2022 End: 11-22-2022 LORazepam (Ativan) 0.5 MG ta blet Start: 11-22-2021 End: 02-20-2022 LORazepam 0.5 mg oral tablet Dose : 0.5 mg = 1 tab(s), Oral, qDay, PRN as needed for anxiety, oarrs appropriate, to be filled on or after 11/23/21, # 30 tab(s), 2 Refill(s), Pharmacy: [facility], Anxiety, 163.5, cm, 11/22/21 8:20:00 EDT, Height, 83.3, kg, 11/22/21 8:... Start Date: 11/22/21 Stop Date: 02/20/22 Status: Ordered Start: 05-31-2021 End: 08-29-2021 LORazepam 0.5 mg oral tablet Dose : 0.5 mg = 1 tab(s), Oral, qDay, PRN as needed for anxiety, oarrs appropriate, to be filled on or after 06/10/21, # 30 tab(s), 2 Refill(s), Pharmacy: [address], Anxiety, 162.6, cm, 02/18/21 8:44:00 EDT, Height, 77.3, kg, 02/18/21 8:... Start Date: 05/31/21 Stop Date: 08/29/21 Status: Ordered Start: 03-01-2021 End: 05-30-2021 LORazepam 0.5 mg oral tablet Dose : 0.5 mg = 1 tab(s), Oral, qDay, PRN as needed for anxiety, oarrs appropriate, to be filled on or after 03/01/21, # 30 tab(s), 2 Refill(s), Pharmacy: [address], Anxiety, 162.6, cm, 02/18/21 8:44:00 EDT, Height, 77.3, kg, 02/18/21 8:4... Start Date: 03/01/21 Stop Date: 05/30/21 Status: Ordered take 1 tablet by neha th every six hours as needed for anxiety LORazepam (ATIVAN) 0.5 MG tablet Take 0.5 mg by mouth every 6 hours as needed for Anxiety. 0 Active Multiple Vitamins-Minerals (MULTIVITAMIN ADULT PO) (4 sources) take 2 tablets by mouth once daily Multiple Vitamins-Minerals (MULTIVITAMIN ADULT PO) Take 2 tablets by mouth daily 0 Active Multivitamin preparation (13 sources) Start: 02-18-2019 take 1 tablet by mouth twice daily Multivitamin Dose = 1 tab(s), Oral, BID, 0 Refill(s) Start Date: 02/18/19 Status: Ordered Multivitamin tablet (6 sources) Start: 11-26-2024 Multivitamin tablet Active 1 {tbl} PO daily November 26, 2024 12:00am Start: 04-21-2024 End: 05-05-2024 Multivitamin tablet Disconti nued 1 {tbl} PO EVERY MORNING April 21, 2024 1:00am May 05, 2024 12:36pm ondansetron 4 mg oral tablet , disintegrating (6 sources) Start: 05-22-2021 ondansetron 4 mg oral tablet, disintegrating Dose : 4 mg = 1 tab(s), Oral, q6h, PRN Nausea/Vomiting, # 10 tab(s), 0 Refill(s) Start Date: 05/22/21 Status: Ordered Start: 05-22-2021 ondansetron 4 mg oral tablet, disintegrating Dose : 4 mg = 1 tab(s), Oral, q6h, PRN Nausea/Vomiting, # 10 tab(s), 0 Refill(s) Start Date: 05/22/21 Status: Ordered Peg 3350-Sod Sulf,Chlr-Pot-M ag (Suflave) 178.7-7.3-0.5 gram recon soln (3 sources) Start: 11-26-2024 Peg 3350-Sod S ulf,Nzvr-Szt-Lcg (Suflave) 178.7-7.3-0.5 gram recon soln Active 0 PO .COMPLEX 2 0 November 26, 2024 12:00am as directed for split dose bowel prep Start: 11-26-2024 Peg 3350-Sod S ulf,Hhwd-Ptx-Yym (Suflave) 178.7-7.3-0.5 gram recon soln Active 0 PO .COMPLEX 2 November 26, 2024 12:00am as directed for split dose bowel prep pramipexole dihydrochloride 0.125 mg oral tablet (15 sources) Nonergot Dopamine Agonist Start: 05-31-2021 End: 05-21-2022 pramipexole (Mirapex) 0.125 MG tablet Start: 11-23-2020 End: 05-22-2021 pramipexole 0.125 mg oral ta blet Dose : 0.125 mg = 1 tab(s), Oral, qHS, # 90 tab(s), 1 Refill(s), Pharmacy: [facility], 160, cm, 11/23/20 15:08:00 EDT, Height, kg, 11/23/20 15:08:00 EDT, Dosing Weight Start Date: 11/23/20 Stop Date: 05/22/21 Status: Ordered predniSONE 20 mg oral tablet (1 source) Start: 08-26-2022 End: 08-31-2022 prednisone 20mg tab (TAPER) Dose : 40 mg = 2 tab(s), Oral, qDay, X 5 day(s), # 10 tab(s), 0 Refill(s), 08/31/22 9:59:00 EDT, Pharmacy: [facility] #[id number], Productive cough, 160, cm, 08/24/22 8:00:00 EDT, Height Start Date: 08/26/22 Stop Date: 08/31/22 Status: Ordered ramelteon 8 mg oral tablet (3 sources) Melatonin Receptor Agonist Start: 11-26-2024 take 1 tablet by mouth at bedtime Ramelteon (Rozerem) 8 mg tablet Active 8 mg PO AT BEDTIME November 26, 2024 12:00am 1 mg dose 1.5 ml semaglutide 1.34 mg/ml pen injector (19 sources) Start: 07-07-2022 End: 11-16-2022 inject 1 mg by subcutaneous injection every week semaglutide (Ozempic, 1 MG/DOSE,) 2 MG/1.5ML solution pen-injector Inject 1 mg under the skin 1 (one) time per week. 9 mL 0 08/18/2022 11/16/2022 Active Start: 06-07-2022 inject 0.5 mg by sub cutaneous injection every week semaglutide (Ozempic, 0.25 or 0.5 MG/DOSE,) 2 MG/1.5ML solution pen-injector Inject 0.5 mg under the skin 1 (one) time per week. 1.5 mL 0 06/07/2022 Active Start: 05-30-2022 Ozempic Subcut aneous, 0 Refill(s) Start Date: 05/30/22 Status: Ordered Start: 05-10-2022 inject 0.25 mg by omalley bcutaneous injection every week semaglutide (Ozempic, 0.25 or 0.5 MG/DOSE,) 2 MG/1.5ML solution pen-injector Inject 0.25 mg under the skin 1 (one) time per week. 1.5 mL 0 05/10/2022 Active Tirzepatide (Mounjaro) 2.5 mg/0.5 mL pen injector (3 sources) Start: 11-26-2024 Tirzepatide (M ounjaro) 2.5 mg/0.5 mL pen injector Active 2.5 mg SC EVERY WEEK November 26, 2024 12:00am for 4 weeks VITAMIN D, CHOLECALCIFEROL, PO (4 sources) Start: 10-17-2017 VITAMIN D, CHO LECALCIFEROL, PO Indications: Vitamin D Deficiency , Supplement Take 4,000 Int'l Units by mouth daily 0 10/17/2017 Active Vitamin D3 (8 sources) Start: 02-18-2019 Vitamin D3 Dos e : 4,000 unit(s) = 1 tab(s), Oral, Daily, 0 Refill(s) Start Date: 02/18/19 Status: Ordered Vitamin D3 125 mcg (5000 int l units) oral tablet (5 sources) Start: 08-24-2022 End: 02-20-2023 Vitamin D3 125 mcg (5000 int l units) oral tablet Dose : 125 mcg = 1 tab(s), Oral, qDay, # 90 tab(s), 1 Refill(s), Pharmacy: [facility], 160, cm, 08/24/22 8:00:00 EDT, Height, kg, 08/24/22 8:00:00 EDT, Dosing Weight Start Date: 08/24/22 Stop Date: 02/20/23 Status: Ordered Start: 05-09-2022 End: 11-05-2022 Vitamin D3 125 mcg (5000 int l units) oral tablet Dose : 125 mcg = 1 tab(s), Oral, qDay, # 90 tab(s), 1 Refill(s), Pharmacy: [facility], 164, cm, 04/04/22 8:05:00 EDT, Height Start Date: 05/09/22 Stop Date: 11/05/22 Status: Ordered Completed/Discontinued Medications Medication Drug Class(es) Dates Sig (Normalized) Sig (Original) acetaminophen 300 mg / butalbital 50 mg / caffeine 40 mg oral capsule (12 sources) Barbiturate, Central Nervous System Stimulant, Methylxanthine Start: 01-16-2023 End: 11-26-2024 Butalbital-Acetami nophen-Caff (Fioricet) 50-300-40 mg capsule Discontinued 1 NMA PO Q8H as needed for h/a January 16, 2023 12:00am November 26, 2024 9:51am Start: 08-24-2022 take 1 capsule by mouth every four hours as needed acetaminophen/butalbital/caffeine 325 mg -50 mg-40 mg oral capsule Dose = 1 cap(s), Oral, q4h, PRN as needed, # 30 cap(s), 2 Refill(s), [facility], 160, cm, 08/24/22 8:00:00 EDT, Height, kg, 08/24/22 8:00:00 EDT, Dosing Weight Start Date: 08/24/22 Status: Ordered Start: 06-15-2022 take 1 capsule by mouth every four hours as needed acetaminophen/butalbital/caffeine 325 mg -50 mg-40 mg oral capsule Dose = 1 cap(s), Oral, q4h, PRN as needed, # 30 cap(s), 0 Refill(s), Pharmacy: [facility] #[id number], 164, cm, 05/30/22 8:50:00 EST, Height Start Date: 06/15/22 Status: Ordered acetaminophen 325 mg / HYDROcodone bitartrate 5 mg oral tablet (3 sources) Opioid Agonist Start: 05-22-2021 End: 05-25-2021 take 1 tablet by mouth every six hours as needed for pain [place] 325- 5 mg oral tablet Dose = 1 tab(s), Oral, q6h, PRN as needed for pain, # 10 tab(s), 0 Refill(s), Abdominal pain, 77.3 Start Date: 05/22/21 Stop Date: 05/25/21 Status: Ordered amoxicillin 500 mg oral tablet (3 sources) Penicillin-class Antibacterial Start: 07-23-2024 End: 08-19-2024 take 1 tablet by mouth three times daily Amoxicillin 500 mg tablet Discontinued 500 mg PO THREE TIMES A DAY 30 0 July 23, 2024 1:00am August 19, 2024 9:29am amoxicillin 875 mg / clavulanate 125 mg oral tablet (14 sources) Penicillin-class Antibacterial Start: 04-17-2024 End: 04-27-2024 Amoxicillin-Pot Clavulanate 875-125 mg tablet Discontinued 1 {tbl} PO Q12H 20 10 0 April 17, 2024 1:00am April 26, 2024 1:00am April 27, 2024 1:09am Acute sinusitis, unspecified Start: 12-12-2023 End: 01-28-2024 Amoxicillin-Pot Clavulanate 875-125 mg tablet Discontinued 1 {tbl} PO Q12H 14 0 December 12, 2023 12:00am January 28, 2024 12:27pm Start: 05-13-2023 End: 05-20-2023 Amoxicillin-Pot Clavulanate 875-125 mg tablet Discontinued 1 {tbl} PO TWICE A DAY 14 7 May 13, 2023 1:00am May 19, 2023 1:00am May 20, 2023 1:04am Start: 05-13-2023 End: 05-20-2023 take 1 tablet by mouth twice daily Amoxicillin-Pot Clavulanate Discontinued 1 TABLET PO TWICE A DAY 14 May 13, 2023 1:00am May 20, 2023 1:04am Start: 05-22-2021 End: 05-29-2021 take 1 tablet by mouth every twelve hours amoxicillin-clavulanate 875 mg-125 mg oral tablet 1 tab(s), Oral, q12h, X 7 day(s), # 14 tab(s), 0 Refill(s), 05/29/21 6:03:00 EST, Abdominal pain, 77.3 Start Date: 05/22/21 Stop Date: 05/29/21 Status: Ordered apremilast 30 mg oral tablet (6 sources) Start: 05-05-2024 End: 06-13-2024 take 1 tablet by mouth once daily Apremilast (Otezla) 30 mg tablet Discontinued 30 mg PO DAILY May 05, 2024 12:35pm June 13, 2024 1:41pm Start: 04-15-2024 End: 05-05-2024 take 1 tablet by mouth twice daily Apremilast (Otezla) 30 mg tablet Discontinued 30 mg PO TWICE A DAY April 15, 2024 1:00am May 05, 2024 12:37pm Azithromycin 5 Day Dose Pack 250 mg oral tablet (3 sources) Start: 08-26-2022 End: 08-31-2022 Azithromycin 5 Day Dose Pack 250 mg oral tablet Dose : 500 mg = 2 tab(s), Oral, qDay, Take 2 tabs day one (500mg), then 1 tab days 2-5 (250mg), # 6 tab(s), 0 Refill(s), Pharmacy: [facility] #[id number], Productive cough, 160, cm, 08/24/22 8:00:00 EDT, Height, 79 Start Date: 08/26/22 Stop Date: 08/31/22 Status: Ordered benzonatate 100 mg oral capsule (3 sources) Non-narcotic Antitussive Start: 06-27-2024 End: 11-26-2024 take 2 capsules by mouth three times daily as needed for cough Benzonatate 100 mg capsule Discontinued 200 mg PO THREE TIMES A DAY as needed for cough 30 0 June 27, 2024 1:00am November 26, 2024 9:52am biotin 10 mg oral tablet (20 sources) Start: 04-15-2024 End: 11-26-2024 take 1 tablet by mouth once daily Biotin 10 mg tablet Discontinued 10 mg PO daily April 15, 2024 1:00am November 26, 2024 9:52am Start: 02-18-2019 biotin 1000 mc g oral tablet Dose : 4,000 mcg = 4 tab(s), Oral, qDay, 0 Refill(s) Start Date: 02/18/19 Status: Ordered take 1 capsule by [facility] once daily Biotin 2500 MCG CAPS Indications: Supplement Take 2,500 mcg by mouth daily 0 Active calcium glucarate 500 mg ora l capsule (6 sources) Start: 04-21-2024 End: 11-26-2024 Calcium Glucarate 500 mg cap wendy Discontinued 1 NMA PO THREE TIMES A DAY April 21, 2024 2:20pm November 26, 2024 9:49am Start: 04-15-2024 End: 04-21-2024 Calcium Glucarate 500 mg cap wendy Discontinued 1 NMA PO TWICE A DAY April 15, 2024 1:00am April 21, 2024 2:26pm cholecalciferol 0.01 mg oral capsule (7 sources) Vitamin D Start: 01-16-2023 End: 11-26-2024 take 1 capsule by mouth once daily Cholecalciferol (Vitamin D3) 10 mcg (400 unit) capsule Discontinued 10 ug PO DAILY January 16, 2023 12:00am November 26, 2024 9:49am doxycycline monohydrate 100 mg oral capsule (3 sources) Tetracycline-cla ss Drug Start: 08-13-2024 End: 08-20-2024 take 1 capsule by mouth twice daily Doxycycline Monohydrate 100 mg capsule Discontinued 100 mg PO TWICE A DAY 14 7 0 August 13, 2024 1:00am August 19, 2024 12:00am August 20, 2024 12:11am estrogens, conjugated ([facility]) 0.3 mg oral tablet (7 sources) Estrogen Start: 01-16-2023 End: 05-05-2024 take 1 tablet by mouth once daily Conjugated Estrogens 0.3 mg tablet Discontinued 0.3 mg PO DAILY January 16, 2023 12:00am May 05, 2024 12:35pm cyclically ferrous sulfate 325 mg oral tablet (3 sources) Start: 04-15-2024 End: 11-26-2024 take 1 tablet by mouth twice daily Ferrous Sulfate (Ferosul) 325 mg (65 mg iron) tablet Discontinued 325 mg PO TWICE A DAY April 15, 2024 1:00am November 26, 2024 9:49am fluconazole 200 mg oral tablet (11 sources) Azole Antifungal Start: 11-27-2023 End: 05-05-2024 take 1 tablet by mouth once daily Fluconazole 200 mg tablet Discontinued 200 mg PO DAILY November 27, 2023 12:00am May 05, 2024 12:36pm as instructed in office today Start: 05-13-2023 End: 05-05-2024 Fluconazole 150 mg tablet Di scontinued 150 mg PO Every 3 Days 2 May 13, 2023 1:00am May 05, 2024 12:36pm may repeat second dose 72 hrs after first dose if symptoms persist Start: 06-14-2021 End: 06-24-2021 Diflucan 150 mg oral tablet Dose : 150 mg = 1 tab(s), Oral, qDay, # 1 tab(s), 1 Refill(s), 06/24/21 10:31:00 EST, Pharmacy: [facility], 162.6, cm, 02/18/21 8:44:00 EDT, Height, 77.3, kg, 02/18/21 8:44:00 EDT, Dosing Weight Start Date: 06/14/21 Stop Date: 06/24/21 Status: Ordered metFORMIN hydrochloride 500 mg oral tablet (20 sources) Biguanide Start: 04-21-2024 End: 11-26-2024 take 1 tablet by mouth twice daily Metformin 500 mg tablet Discontinued 500 mg PO TWICE A DAY April 21, 2024 2:22pm November 26, 2024 9:51am Start: 08-24-2022 End: 04-21-2024 take 1 tablet by mouth once daily Metformin 500 mg tablet Discontinued 500 mg PO DAILY January 16, 2023 12:00am April 21, 2024 2:26pm Start: 03-09-2022 metFORMIN XR ( Glucophage-XR) 500 MG 24 hr tablet Start: 01-25-2021 End: 05-21-2022 MetFORMIN (Eqv-Glucophage XR ) 500 mg oral tablet, EXTENDED RELEASE Dose : 500 mg = 1 tab(s), Oral, BID, # 180 tab(s), 1 Refill(s), Pharmacy: [facility], 163.5, cm, 11/22/21 8:20:00 EDT, Height, kg, 11/22/21 8:20:00 EDT, Dosing Weight Start Date: 11/22/21 Stop Date: 05/21/22 Status: Ordered Start: 02-25-2020 End: 05-25-2020 take 1 tablet by mouth twice daily metFORMIN (GLUCOPHAGE-XR) 500 MG extended release tablet Take 1 tablet by mouth 2 times daily 180 tablet 0 02/25/2020 05/25/2020 Active nitrofurantoin, macrocrystals 25 mg / nitrofurantoin, monohydrate 75 mg oral capsule (6 sources) Nitrofuran Antibacterial Start: 01-28-2024 End: 02-04-2024 take 1 capsule by mouth every twelve hours at mealtime Nitrofurantoin Monohyd/M-Cryst (Macrobid) 100 mg capsule Discontinued 100 mg PO Q12H 14 7 0 January 28, 2024 12:00am February 03, 2024 12:00am February 04, 2024 12:04am must administer with a meal/food Start: 11-27-2023 End: 12-02-2023 take 1 capsule by mouth every twelve hours at mealtime Nitrofurantoin Monohyd/M-Cryst (Macrobid) 100 mg capsule Discontinued 100 mg PO Q12H 10 5 0 November 27, 2023 12:00am December 01, 2023 12:00am December 02, 2023 12:06am must administer with a meal/food omeprazole 20 mg delayed release oral capsule (20 sources) Proton Pump Inhibitor Start: 11-26-2024 End: 11-26-2024 take 1 capsule by mouth once daily Omeprazole 20 mg capsule,delayed release(DR/EC) Discontinued 20 mg PO DAILY November 26, 2024 9:43am November 26, 2024 10:19am Start: 11-26-2024 take 1 capsule by [facility] once daily 30 minutes before breakfast Omeprazole 40 mg capsule,delayed release(DR/EC) Active 40 mg PO daily 90 1 November 26, 2024 12:00am take once daily 30 minutes before breakfast Start: 05-05-2024 End: 11-26-2024 take 2 capsules by mouth once daily Omeprazole 20 mg capsule,delayed release(DR/EC) Discontinued 40 mg PO DAILY May 05, 2024 12:36pm November 26, 2024 9:43am Start: 05-31-2021 End: 05-05-2024 take 1 capsule by mouth once daily Omeprazole 20 mg capsule,delayed release(DR/EC) Discontinued 20 mg PO DAILY January 16, 2023 12:00am May 05, 2024 12:37pm Start: 11-23-2020 End: 05-22-2021 omeprazole 20 mg oral delaye d release capsule Dose : 20 mg = 1 cap(s), Oral, qDay, # 90 cap(s), 1 Refill(s), Pharmacy: [facility], 160, cm, 11/23/20 15:08:00 EDT, Height, kg, 11/23/20 15:08:00 EDT, Dosing Weight Start Date: 11/23/20 Stop Date: 05/22/21 Status: Ordered Start: 04-10-2019 take 1 capsule by mo uth once daily omeprazole (PRILOSEC) 20 MG delayed release capsule Take 1 capsule by mouth Daily 30 capsule 5 04/10/2019 Active ondansetron 4 mg oral tablet (16 sources) Serotonin-3 Receptor Antagonist Start: 04-15-2024 End: 11-26-2024 take 1 tablet by mouth every eight hours as needed for nausea and vomiting Ondansetron Hcl 4 mg tablet Discontinued 4 mg PO Q8H as needed for nausea and vomiting May 06, 2024 11:51am November 26, 2024 9:51am Start: 05-22-2021 ondansetron 4 mg oral tablet, disintegrating Dose : 4 mg = 1 tab(s), Oral, q6h, PRN Nausea/Vomiting, # 10 tab(s), 0 Refill(s) Start Date: 05/22/21 Status: Ordered oseltamivir 75 mg oral capsule (3 sources) Neuraminidase Inhibitor Start: 07-23-2024 End: 07-28-2024 take 1 capsule by mouth twice daily Oseltamivir 75 mg capsule Discontinued 75 mg PO TWICE A DAY 10 5 0 July 23, 2024 1:00am July 27, 2024 1:00am July 28, 2024 1:15am phenazopyridine hydrochloride 100 mg oral tablet (3 sources) Start: 01-28-2024 End: 05-05-2024 take 1 tablet by mouth three times daily as needed for pain Phenazopyridine 100 mg tablet Discontinued 100 mg PO THREE TIMES A DAY as needed for pain 6 0 January 28, 2024 12:00am May 05, 2024 12:37pm rosuvastatin calcium 20 mg oral tablet (3 sources) HMG-CoA Reductase Inhibitor Start: 04-15-2024 End: 05-05-2024 take 1 tablet by mouth once daily Rosuvastatin 20 mg tablet Discontinued 20 mg PO daily April 15, 2024 1:00am May 05, 2024 12:59pm Semaglutide (10 sources) Start: 04-21-2024 End: 06-13-2024 Semaglutide (Ozempic) 0.25 mg or 0.5 mg (2 mg/3 mL) pen injector Discontinued 2 mg SC EVERY WEEK April 21, 2024 2:18pm June 13, 2024 1:42pm for 4 weeks Start: 01-16-2023 End: 04-21-2024 Semaglutide (Ozempic) 0.25 m g or 0.5 mg (2 mg/3 mL) pen injector Discontinued 0.25 mg SC EVERY WEEK January 16, 2023 12:00am April 21, 2024 2:26pm for 4 weeks Start: 01-16-2023 Semaglutide (O zempic) 0.25 mg or 0.5 mg (2 mg/3 mL) pen injector Active 0.25 MG SC EVERY WEEK January 16, 2023 12:00am for 4 weeks Start: 01-16-2023 Semaglutide (O zempic) 0.25 mg or 0.5 mg (2 mg/3 mL) pen injector Active 0.25 MG SC EVERY WEEK January 15, 2023 11:00pm for 4 weeks thiamine 100 mg oral tablet (3 sources) Start: 04-21-2024 End: 05-05-2024 take 1 tablet by mouth once daily Thiamine Hcl (Vitamin B1) 100 mg tablet Discontinued 100 mg PO daily April 21, 2024 1:00am May 05, 2024 12:37pm venlafaxine 75 mg oral tablet (6 sources) Serotonin and Norepinephrine Reuptake Inhibitor Start: 04-21-2024 End: 11-26-2024 Venlafaxine 75 mg tablet Discontinued 112.5 mg PO TWICE A DAY April 21, 2024 2:24pm November 26, 2024 9:51am Start: 04-15-2024 End: 04-21-2024 take 1 tablet by mouth twice daily Venlafaxine 75 mg tablet Discontinued 75 mg PO TWICE A DAY April 15, 2024 1:00am April 21, 2024 2:26pm vitamin b12 1 mg/ml injectable solution (20 sources) Vitamin B12 Start: 04-21-2024 End: 11-26-2024 inject 1000 ug by intramuscular injection every week Cyanocobalamin (Vitamin B-12) 1,000 mcg/mL solution Discontinued 1000 ug IM EVERY WEEK April 21, 2024 1:00am November 26, 2024 9:49am Start: 02-18-2019 Vitamin B12 50 0 mcg sublingual tablet Dose : 500 mcg = 1 tab(s), Sublingual, qDay, 0 Refill(s) Start Date: 02/18/19 Status: Ordered Start: 10-11-2018 Cyanocobalamin (VITAMIN B-12) 500 MCG SUBL Indications: supplement Place 500 mcg under the tongue daily Indications: supplement 0 10/11/2018 Active Vitamin B Complex (B Complex-Vitamin B12) tablet (7 sources) Start: 01-16-2023 End: 05-05-2024 Vitamin B Complex (B Complex-Vitamin B12) tablet Discontinued 1 {tbl} PO DAILY January 16, 2023 12:00am May 05, 2024 12:37pm Start: 01-16-2023 take 1 tablet by neha th once daily Vitamin B Complex (B Complex-Vitamin B12) tablet Active 1 TABLET PO DAILY January 16, 2023 12:00am Start: 01-16-2023 take 1 tablet by neha th once daily Vitamin B Complex (B Complex-Vitamin B12) tablet Active 1 TABLET PO DAILY January 15, 2023 11:00pm zinc gluconate 50 mg oral tablet (8 sources) Start: 04-21-2024 End: 11-26-2024 take 1 tablet by mouth once daily Zinc Gluconate 50 mg tablet Discontinued 50 mg PO daily April 21, 2024 1:00am November 26, 2024 9:52am Start: 05-09-2022 End: 02-20-2023 zinc (as gluconate) 50 mg or al tablet Dose : 50 mg = 1 tab(s), Oral, Daily, # 90 tab(s), 1 Refill(s), Pharmacy: [facility], 160, cm, 08/24/22 8:00:00 EDT, Height, kg, 08/24/22 8:00:00 EDT, Dosing Weight Start Date: 08/24/22 Stop Date: 02/20/23 Status: Ordered Problems Active Problems Problem Classification Problem Date Documented Da te Episodic/Chronic Abdominal pain (1 source) Abdominal pain; Translations: [Unspecified abdominal pain] Onset: Episodic Anal and rectal conditions (6 sources) Rectal pain; Translations: [Other specified diseases of anus and rectum] 11-26-2024 Episodic Anxiety disorders (17 sources) Anxiety disorder, unspecified; Translations: [Anxiety] Onset: 0 11-07-2019 Chronic Coronary atherosclerosis and other heart disease (5 sources) Angina pectoris; Translations: [Angina pectoris, unspecified] Onset: 5 04-21-2024 Chronic Diseases of mouth; excluding dental (7 sources) Aphthous ulcer of mouth; Translations: [Recurrent oral aphthae] 01-16-2023 Episodic Disorders of lipid metabolism (2 sources) Hyperlipidemia, unspecified; Translations: [Hyperlipidemia, unspecified] Onset: 4 Chronic Esophageal disorders (20 sources) Gastroesophageal reflux disease without esophagitis; Translations: [Gastroesophageal reflux disease] Onset: 0 10-20-2019 Chronic Gastrointestinal hemorrhage (6 sources) Rectal hemorrhage; Translations: [Hemorrhage of anus and rectum] 11-26-2024 Episodic Headache; including migraine (3 sources) Migraine 08-24-2022 Chronic Immunizations and screening for infectious disease (5 sources) Encounter for screening for other viral diseases; Translations: [Contact with and (suspected) exposure to other viral communicable diseases] Onset: 0 06-27-2024 Episodic Menopausal disorders (13 sources) Menopausal flushing 11-23-2020 Chronic Menstrual disorders (9 sources) Irregular periods; Translations: [Irregular menstruation, unspecified] Onset: 8 06-27-2017 Chronic Mood disorders (16 sources) Major depression in remission; Translations: [Major depressive disorder, single episode, in full remission] 11-07-2019 Chronic Mood disorders (1 source) Major depressive disorder, single episode, unspecified; Translations: [JONNY DEPRESS D/O SINGLE EPIS UNS] Onset: 0 Nausea and vomiting (6 sources) Nausea; Translations: [Nausea] 11-26-2024 Episodic Nonspecific chest pain (3 sources) Chest pain; Translations: [Chest pain, unspecified] Onset: 3 Episodic Nutritional deficiencies (13 sources) Vitamin D deficiency; Translations: [Vitamin D deficiency, unspecified] Onset: 8 10-17-2017 Chronic Other aftercare (1 source) Other chcf (current) drug therapy; Translations: [[employer]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] Onset: 0 Episodic Other bone disease and musculoskeletal deformities (12 sources) Somatic dysfunction of upper limb 05-31-2021 Episodic Other bone disease and musculoskeletal deformities (20 sources) Segmental and somatic dysfunction; Translations: [Segmental and somatic dysfunction of cervical region] 02-13-2023 Episodic Other bone disease and musculoskeletal deformities (2 sources) Segmental and somatic dysfunction of cervical region; Translations: [Nonallopathic lesions, cervical region] Onset: 5 03-20-2023 Episodic Other bone disease and musculoskeletal deformities (2 sources) Segmental and somatic dysfunction of lumbar region; Translations: [Nonallopathic lesions, lumbar region] Onset: 5 03-20-2023 Episodic Other bone disease and musculoskeletal deformities (2 sources) Segmental and somatic dysfunction of pelvic region; Translations: [Nonallopathic lesions, pelvic region] Onset: 5 03-20-2023 Episodic Other bone disease and musculoskeletal deformities (2 sources) Segmental and somatic dysfunction of thoracic region; Translations: [Nonallopathic lesions, thoracic region] Onset: 5 03-20-2023 Episodic Other connective tissue disease (12 sources) Pain in right arm 05-31-2021 Episodic Other gastrointestinal disorders (9 sources) Intestinal malabsorption; Translations: [Intestinal malabsorption, unspecified] Onset: 8 04-17-2018 Chronic Other gastrointestinal disorders (1 source) Irritable bowel syndrome without diarrhea; Translations: [IRRITABLE BOWEL SYND W/O DIARRHEA] Onset: 0 Chronic Other gastrointestinal disorders (6 sources) History of bypass of stomach; Translations: [Bariatric surgery status] 05-13-2024 Episodic Other gastrointestinal disorders (6 sources) Abdominal bloating; Translations: [Abdominal distension (gaseous)] 11-26-2024 Episodic Other gastrointestinal disorders (6 sources) Constipation; Translations: [Constipation, unspecified] 11-26-2024 Episodic Other hereditary and degenerative nervous system conditions (13 sources) Restless legs 06-25-2020 Chronic Other inflammatory condition of skin (1 source) Erythema intertrigo; Translations: [ERYTHEMA INTERTRIGO] Onset: 0 Episodic Other liver diseases (9 sources) Steatosis of liver; Translations: [Fatty (change of) liver, not elsewhere classified] Onset: 8 04-08-2018 Chronic Other lower respiratory disease (4 sources) Lower respiratory tract infection; Translations: [Unspecified acute lower respiratory infection] 08-13-2024 Episodic Other lower respiratory disease (4 sources) Solitary nodule of lung; Translations: [Solitary pulmonary nodule] 08-19-2024 Episodic Comment on above: RUL 4.6 mm nodule Other non-traumatic joint disorders (7 sources) Pain in left shoulder; Translations: [Left shoulder pain] 05-31-2023 Episodic Other nutritional; endocrine; and metabolic disorders (13 sources) Body mass index 30+ - obesity; Translations: [Body mass index (BMI) 31.0-31.9, adult] Onset: 9 Resolved: 9 04-10-2019 Chronic Other nutritional; endocrine; and metabolic disorders (9 sources) Morbid obesity; Translations: [Morbid (severe) obesity [...] Chronic Other nutritional; endocrine; and metabolic disorders (14 sources) Obesity; Translations: [Obesity, unspecified] 11-22-2021 Chronic Other nutritional; endocrine; and metabolic disorders (2 sources) Body mass index (BMI) 31.0-31.9, adult; Translations: [Body mass index (BMI) 31.0-31.9, adult] Onset: 3 Chronic Other nutritional; endocrine; and metabolic disorders (2 sources) Body mass index (BMI) 32.0-32.9, adult; Translations: [Body mass index (BMI) 32.0-32.9, adult] Onset: 3 Chronic Other screening for suspected conditions (not mental disorders or infectious disease) (16 sources) Computed tomography result abnormal; Translations: [CT of chest abnormal] Onset: 5 05-31-2021 Chronic Other upper respiratory infections (15 sources) Maxillary sinusitis; Translations: [Chronic maxillary sinusitis] Onset: 5 05-13-2023 Chronic Other upper respiratory infections (10 sources) Acute pharyngitis; Translations: [Acute pharyngitis, unspecified] 01-16-2023 Episodic Otitis media and related conditions (3 sources) Acute bilateral otitis media ; Translations: [Otitis media, unspecified, bilateral] 12-12-2023 Episodic Residual codes; unclassified (13 sources) Immunization due 04-07-2020 Episodic Residual codes; unclassified (13 sources) Insomnia 10-07-2019 Episodic Residual codes; unclassified (13 sources) Postmenopausal state 11-23-2020 Episodic Residual codes; unclassified (3 sources) Screening due 08-24-2022 Episodic Residual codes; unclassified (5 sources) Family history of ischemic heart disease; Translations: [Family history of ischemic heart disease and other diseases of the circulatory system] 08-29-2022 Episodic Screening and history of mental health and substance abuse codes (8 sources) Tobacco use and exposure - finding 02-28-2022 Chronic Spondylosis; intervertebral disc disorders; other back problems (18 sources) Backache; Translations: [Dorsalgia, unspecified] Onset: 8 06-27-2017 Episodic Thyroid disorders (4 sources) Hypothyroidism; Translations: [Hypothyroidism, unspecified] Onset: 4 05-05-2024 Chronic Unclassified (13 sources) Cancer cervix screening status 04-07-2020 Unclassified (13 sources) History of bypass of stomach 10-07-2019 Unclassified (20 sources) Patient encounter status 12-30-2019 Unclassified (2 sources) Bariatrics Post Op Follow-up; Translations: [Bariatrics Post Op Follow-up] Onset: 2 Unclassified (2 sources) Weight Management; Translations: [Weight Management] Onset: Viral infection (12 sources) Viral disease; Translations: [Post-viral disorder] 05-27-2020 Episodic Past or Other Problems Problem Classification Problem Date Documented Da te Episodic/Chronic Bacterial infection; unspecified site (1 source) Other specified bacterial agents as the cause of diseases classified elsewhere; Translations: [Other specified bacterial agents as the cause of diseases classified elsewhere] Onset: 08-13-2024 Episodic Calculus of urinary tract (20 sources) History of calculus of kidney; Translations: [Kidney stone] Onset: 06-27-2017 06-27-2017 Episodic Coma; stupor; and brain damage (9 sources) Daytime somnolence; Translations: [Somnolence] Onset: 06-27-2017 06-27-2017 Episodic Diabetes mellitus without complication (20 sources) Prediabetes; Translations: [Prediabetes] Onset: 08-18-2022 Resolved: 04-10-2019 04-10-2019 Episodic Essential hypertension (4 sources) Hypertensive disorder; Translations: [HTN (hypertension)] Resolved: 04-10-2019 04-10-2019 Chronic Gastritis and duodenitis (9 sources) Superficial gastritis; Translations: [Acute superficial gastritis] Onset: 11-27-2017 11-27-2017 Episodic Genitourinary symptoms and ill-defined conditions (1 source) Dysuria; Translations: [Dysuria] Onset: 01-28-2024 Episodic Malaise and fatigue (11 sources) Fatigue; Translations: [Other fatigue] Onset: 06-27-2017 06-27-2017 Episodic Nutritional deficiencies (20 sources) Deficiency of multiple nutrient elements; Translations: [Deficiency of multiple nutrient elements] Onset: 04-17-2018 04-17-2018 Episodic Comment on above: Iron profile and hem oglobin were normal on 05/06/2024 Other gastrointestinal disorders (4 sources) Bariatric surgery status; Translations: [BARIATRIC SURGERY STATUS] Onset: 02-11-2020 Episodic Other gastrointestinal disorders (4 sources) History of bariatric surgical procedure; Translations: [Bariatric surgery status] Episodic Other lower respiratory disease (9 sources) Dyspnea; Translations: [Shortness of breath] Onset: 06-27-2017 06-27-2017 Episodic Other lower respiratory disease (1 source) Unspecified acute lower respiratory infection; Translations: [Unspecified acute lower respiratory infection] Onset: 08-13-2024 Episodic Other nutritional; endocrine; and metabolic disorders (4 sources) Weight gain; Translations: [Abnormal weight gain] Episodic Other nutritional; endocrine; and metabolic disorders (5 sources) Overweight in adulthood with body mass index of 25 or more but less than 30; Translations: [Body mass index (BMI) 25.0-25.9, adult] Onset: 02-25-2020 03-27-2022 Episodic Other nutritional; endocrine; and metabolic disorders (2 sources) Abnormal weight gain; Translations: [Abnormal weight gain] Onset: 08-18-2022 Episodic Other screening for suspected conditions (not mental disorders or infectious disease) (16 sources) Mammography abnormal; Translations: [Viral screening status] Onset: 05-13-2024 05-31-2021 Episodic Residual codes; unclassified (4 sources) Obstructive sleep apnea syndrome; Translations: [SANDY on CPAP] Onset: 03-14-2018 Resolved: 04-10-2019 04-10-2019 Chronic Residual codes; unclassified (2 sources) Family history of ischemic heart disease and other diseases of the circulatory system; Translations: [Family history of ischemic heart disease and other diseases of the circulatory system] Onset: 03-04-2024 Episodic Urinary tract infections (1 source) Urinary tract infection, site not specified; Translations: [Urinary tract infection, site not specified] Onset: 02-14-2024 Episodic Results Test Name Value Interpretation Reference Range Facility Chiropractic Reporton 2024 Chiropractic Report [facility] [address] [place] [address] OFFICE VISIT Date of Service: 01/05/25 MR#: [id number] Acct: [id number] Name: AMANDA GRUBBS Rep #: [id number] : 1970 Provider: BUCK Méndez Age/Sex: 54/F Location: [email or web address] Status: Signed Intake Vital Signs 11/26/24 09:57 Height 5 ft 3 in Weight: 164 lb 4 oz BMI 29.0 BP 139/93 H Respiration 16 Pulse 85 Temp 98.5 F Temp Source Temporal Pulse Oximetry (%) 97 Oxygen Delivery Method room air Intake Visit Reasons: BACK PAIN Chief Complaint: neck and low back pain Allergies No Known Allergies Allergy (Verified 01/05/25 09:28) Medications ???Medication ???Instructions ???Recorded ???Confirmed ???Type levothyroxine 25 mcg tablet 12.5 mcg PO QDAY 04/21/24 01/05/25 History Diltiazem 2% / Lidocaine 5% #30 grams 11/26/24 01/05/25 Rx ointment (compound) acetaminophen 325 mg tablet 325 mg PO ONCE PRN 11/26/24 History (Tylenol) bupropion HCl 75 mg tablet 75 mg PO TID 11/26/24 01/05/25 His tory docusate sodium 100 mg capsule 100 mg PO BID #60 caps 11/26/24 Rx fexofenadine 60 mg tablet (Becca 60 mg PO BID PRN 11/26/24 History Allergy) linaclotide 290 mcg capsule 290 mcg PO QAM #90 caps 11/26/24 0 01/05/25 Rx (Linzess) lorazepam 0.5 mg tablet (Ativan) 0.25 mg PO DAILY PRN anxiety 11/2601/05/25 History multivitamin 1 tab PO QDAY 11/26/24 01/05/25 Hi story omeprazole 40 mg capsule,delayed 40 mg PO QDAY #90 caps 11/26/24 Rx release peg 3350-sod sulf,bspot-sqr-clo See Rx Instructions PO .COMPLEX #2 11/26/24 01/05/25 Rx 178.7-7.3-0.5-1.12-0.9 gram oral mL soln (Suflave) ramelteon 8 mg tablet (Rozerem) 8 mg PO QHS 11/26/24 01/05/25 Hist ory tirzepatide 2.5 mg/0.5 mL 2.5 mg subcut QWEEK 11/26/2401/05 History subcutaneous pen injector (Mounjaro) [facility] Medical History Lower respiratory tract infection Bacterial sinusitis Anginal pain Somatic dysfunction of lower extremity Psoriatic arthritis Prediabetes Family history of ischemic heart disease Anxiety Secondary insomnia Iron deficiency B12 deficiency Major depression in remission Hypothyroid Anemia Acute pharyngitis, unspecified Aphthous ulcer of mouth delivery delivered Surgical History History of endometrial ablation History of colonoscopy H/O: hysterectomy Hx of cholecystectomy H/O tubal ligation History of weight loss surgery Family History Unknown Heart disease Cancer Kidney disease Breast cancer Lung cancer CHF (congestive heart failure) Father Myocardial infarction Brother Myocardial infarction Social History Smoking Status: Never smoker second hand exposure: Yes alcohol intake: current substance use type: does not use caffeine: Yes HPI BACK PAIN Chief Complaint: neck and low back pain Visit Number: 3 Details: Amanda Grubbs a 54 year old female to follow up on neck and back pain. Pt. advises she is experiencing some neck tension and has noticed a decrease in MURDOCK's since her last adjustment. She also complains of low back discomfort that is equal bilaterally. She feels like her hips are out of alignment. She participated in the [employer] run this past weekend but feels pretty good despite the rugged course. She denies new injury, surgery, numbness or radicular symptoms. She treats her pain at home with Tylenol and heat. She reports chiropractic treatments are helpful to alleviate her pain and discomfort but it gradually returns. Location: neck/low back Duration: frequent Aggravating or associated factors: work, wedding set up Relieving factors: chiro Pain Quality: aching and cramping Exam Musc General: Yes normal gait, joint tenderness and decreased range of motion; No normal posture or muscle weakness Cervical Spine: Yes loss of normal cervical lordosis, Yes cervical muscular tenderness bilateral diffuse , Yes cervical spasm left greater than right diffuse trapezius and paracervical muscles and Yes misalignment misalignment: C5, C6 and C7 Thoracic/Lumber: No thoracic and lumbar spine normal to inspection (anterior hd carriage), Yes paraspinal tenderness on the right greater than left (upper thoracic, lumbar), Yes thoraco-lumbar spasm on the right greater than left (trap, QL, lumbar paraspinal) and Yes misalignment T2, T3, T4, T5, L3, L4, L5 and RIL Sacroiliac joints: on the right tender to palpation Office Procedures Procedures - Chiropractic Procedures Manipulation: Cervical C6, Lumbar L4, Thoracic T2 and T5 and (more content not included)... Normal [facility] Chiropractic Reporton 2024 Chiropractic Report [facility] [address] [place] [address] OFFICE VISIT Date of Service: 12/18/24 MR#: [id number] Acct: [id number] Name: AMANDA GRUBBS Rep #: [id number] : 1970 Provider: BUCK Méndez Age/Sex: 54/F Location: [facility] Status: Signed Intake Vital Signs 11/26/24 09:57 Height 5 ft 3 in Weight: 164 lb 4 oz BMI 29.0 BP 139/93 H Respiration 16 Pulse 85 Temp 98.5 F Temp Source Temporal Pulse Oximetry (%) 97 Oxygen Delivery Method room air Intake Visit Reasons: BACK PAIN Chief Complaint: neck and low back pain Is patient in pain?: Yes (neck low back ) Pain scale (1-10): 2 Allergies No Known Allergies Allergy (Verified 12/18/24 12:07) Medications ???Medication ???Instructions ???Recorded ???Confirmed ???Type levothyroxine 25 mcg tablet 12.5 mcg PO QDAY 04/21/24 12/18/24 History Diltiazem 2% / Lidocaine 5% #30 grams 11/26/24 12/18/24 Rx ointment (compound) acetaminophen 325 mg tablet 325 mg PO ONCE PRN 11/26/24 History (Tylenol) bupropion HCl 75 mg tablet 75 mg PO TID 11/26/24 12/18/24 His tory docusate sodium 100 mg capsule 100 mg PO BID #60 caps 11/26/24 Rx fexofenadine 60 mg tablet (Becca 60 mg PO BID PRN 11/26/24 History Allergy) linaclotide 290 mcg capsule 290 mcg PO QAM #90 caps 11/26/24 0 12/18/24 Rx (Linzess) lorazepam 0.5 mg tablet (Ativan) 0.25 mg PO DAILY PRN anxiety 11/2612/18/24 History multivitamin 1 tab PO QDAY 11/26/24 12/18/24 Hi story omeprazole 40 mg capsule,delayed 40 mg PO QDAY #90 caps 11/26/24 Rx release peg 3350-sod sulf,[id number]-tlb-dvc See Rx Instructions PO .COMPLEX #2 11/26/24 12/18/24 Rx 178.7-7.3-0.5-1.12-0.9 gram oral mL soln (Suflave) ramelteon 8 mg tablet (Rozerem) 8 mg PO QHS 11/26/24 12/18/24 Hist ory tirzepatide 2.5 mg/0.5 mL 2.5 mg subcut QWEEK 11/26/2412/18 History subcutaneous pen injector (Dakota) [facility] Medical History Lower respiratory tract infection Bacterial sinusitis Anginal pain Somatic dysfunction of lower extremity Psoriatic arthritis Prediabetes Family history of ischemic heart disease Anxiety Secondary insomnia Iron deficiency B12 deficiency Major depression in remission Hypothyroid Anemia Acute pharyngitis, unspecified Aphthous ulcer of mouth delivery delivered Surgical History History of endometrial ablation History of colonoscopy H/O: hysterectomy Hx of cholecystectomy H/O tubal ligation History of weight loss surgery Family History Unknown Heart disease Cancer Kidney disease Breast cancer Lung cancer CHF (congestive heart failure) Father Myocardial infarction Brother Myocardial infarction Social History Smoking Status: Never smoker second hand exposure: Yes alcohol intake: current substance use type: does not use caffeine: Yes HPI BACK PAIN Chief Complaint: neck and low back pain Visit Number: 2 Details: Amanda Grubbs a 54 year old female to follow up on neck and back pain. Pt. advises she has been experiencing increased neck pain over the last few months, insidious onset. She complains of neck pain and stiffness that is equal bilaterally. She does experience headaches every few days and also migraines which she takes medication for. The neck pain extends into her upper back into the left trap and shoulder. She carries her work bag on the left side and believes this is contributing to the pain. She also complains of low back pain that is equal bilaterally. The pain in her neck and low back have been making it difficult for her to sleep. She has to lay on a heating pad all night to get any sleep. She denies new injury, surgery, numbness or radicular symptoms. She treats her pain at home with Tylenol and heat. She reports previous chiropractic treatments have helped alleviate her pain. Location: neck/low back Duration: frequent Aggravating or associated factors: work, wedding set up Relieving factors: chiro Pain Quality: aching and cramping Exam Musc General: Yes normal gait, joint tenderness and decreased range of motion; No normal posture or muscle weakness Cervical Spine: Yes loss of normal cervical lordosis, Yes cervical muscular tenderness bilateral diffuse , Yes cervical spasm left greater than right diffuse trapezius and paracervical muscles and Yes misalignment misalignment: C5, C6 and C7 Thoracic/Lumber: No thoracic and lumbar spine normal to inspection (anterior hd carriage), Yes paraspinal tenderness on the right greater than left (upper thor (more content not included)... Normal [facility] Gastroenterology Visit Repor ton 11-26-2024 Gastroenterology Visit Report [facility]astroenter[facility] [address] [place] [address] OFFICE VISIT Date of Service: 11/26/24 MR#: [id number] Acct: [id number] Name: AMANDA GRUBBS Rep #: [id number] : 1970 Provider: ANA mendiola Age/Sex: 54/F Location: [facility] Status: Signed Intake Vital Signs 09/25/24 10:43 11/26/24 09:57 Height 5 ft 3 in 5 ft 3 in Weight: 164 lb 164 lb 4 oz BMI 29.0 29.0 BP 118/78 139/93 H Blood Pressure Location Lt brachial Respiration 16 Pulse 85 Temp 98.5 F Temp Source Temporal Pulse Oximetry (%) 97 Oxygen Delivery Method room air Intake Visit Reasons: CONSTIPATION BLOODY DIARRHEA Chief Complaint: abdomina pain, bloating, N/V, bleeding Supervisor Line Department Required: No Accompanied by: Self Is patient in pain?: No Allergies No Known Allergies Allergy (Verified 11/26/24 09:58) Medications ???Medication ???Instructions ???Recorded ???Confirmed ???Type levothyroxine 25 mcg tablet 12.5 mcg PO QDAY 04/21/24 11/26/24 History Diltiazem 2% / Lidocaine 5% #30 grams 11/26/24 11/26/24 Rx ointment (compound) acetaminophen 325 mg tablet 325 mg PO ONCE PRN 11/26/24 History (Tylenol) bupropion HCl 75 mg tablet 75 mg PO TID 11/26/24 11/26/24 His tory docusate sodium 100 mg capsule 100 mg PO BID #60 caps 11/26/24 Rx fexofenadine 60 mg tablet (Becca 60 mg PO BID PRN 11/26/24 History Allergy) linaclotide 290 mcg capsule 290 mcg PO QAM #90 caps 11/26/24 0 11/26/24 Rx (Linzess) lorazepam 0.5 mg tablet (Ativan) 0.25 mg PO DAILY PRN anxiety 11/2611/26/24 History multivitamin 1 tab PO QDAY 11/26/24 11/26/24 Hi story omeprazole 40 mg capsule,delayed 40 mg PO QDAY #90 caps 11/26/24 Rx release peg 3350-sod sulf,[id number]-dju-amo See Rx Instructions PO .COMPLEX #2 11/26/24 11/26/24 Rx 178.7-7.3-0.5-1.12-0.9 gram oral mL soln (Suflave) ramelteon 8 mg tablet (Rozerem) 8 mg PO QHS 11/26/24 11/26/24 Hist ory tirzepatide 2.5 mg/0.5 mL 2.5 mg subcut QWEEK 11/26/2411/26 History subcutaneous pen injector (Mounjaro) [facility] Medical History Lower respiratory tract infection Bacterial sinusitis Anginal pain Somatic dysfunction of lower extremity Psoriatic arthritis Prediabetes Family history of ischemic heart disease Anxiety Secondary insomnia Iron deficiency B12 deficiency Major depression in remission Hypothyroid Anemia Acute pharyngitis, unspecified Aphthous ulcer of mouth delivery delivered Surgical History History of endometrial ablation History of colonoscopy H/O: hysterectomy Hx of cholecystectomy H/O tubal ligation History of weight loss surgery Family History Unknown Heart disease Cancer Kidney disease Breast cancer Lung cancer CHF (congestive heart failure) Father Myocardial infarction Brother Myocardial infarction Social History Smoking Status: Never smoker second hand exposure: Yes alcohol intake: current substance use type: does not use caffeine: Yes HPI HPI Chief Complaint: abdomina pain, bloating, N/V, bleeding Details: AMANDA GRUBBS, is a 54 F who presents to the office today for Gastric bypass 2018 hysterectomy 2014 total CCX 2002 - occasional alcohol - never smoker - c/o bloody stools, nausea, diarrhea, constipation, abdominal pain, bloating and HB - just switched from Ozempic to Mounjaro - she has constipation and then when she tries to have a BM, like razor blades BRBPR - this past Sunday, she had bad stomach cramping, urgency, toilet full of blood - just one episode - rectal bleeding increased over the past year - she has been having off and on constipation, bloating, abdominal pain more frequent x3 months - can go 5-7 days without a BM - difficulty evacuating - c/o upper esophageal burning with swallowing - loss of appetite - switched from Ozempic to Mounjaro six months ago - she had been on Ozempic for about 1-1.5 years - denies any new medications - weight is maintaining COLON - Dr. Pugh - no polyps EGD just prior to gastric bypass - Dulcolax laxatives- usually needs 2-3 doses befor having results - water intake is poor B: pink drink and coconut milk and a snack pack or skip L: skips D: crackers, occasional meal such as soup - occasionally will eat nuts - has not had much of an appetite - does not like protein shakes very little protein and fiber intake ROS Const Constitutional: Positive for fatigue and headache(s); No fever(s) or weight change ENT ENT: Positive for headache(s (more content not included)... Normal 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 Chief Complaint: Reeval Allergies No Known Allergies Allergy (Verified 11/26/24 09:58) Office Procedures [facility] Billing Sheet Covid Covid Swab-Rapid: Yes Results POC CEPH COV,FluAB,RSV PCR CEPHEID COVID PCR Not DETECTED Last Edit by Jaja Montero on 06/27/24 10:55 CEPHEID FLU AB PCR NOT DETECTED FLU A B Last Edit by Jaja Montero on 06/27/24 10:55 CEPHEID RSV PCR NOT DETECTED Last Edit by Jaja Montero on 06/27/24 10:55 Assessment and Plan Plan Details Goals Barriers: Goals Decrease pain Decrease spasm Improve ROM Target Due Date 10/25/24 11/27/24813 Date Hans Barney Signature: Date (if applicable) CC: Normal [facility] Chiropractic Reporton 2024 Chiropractic Report [facility] [address] [place] [address] [place] [address] OFFICE VISIT Date of Service: 09/25/24 MR#: [id number] Acct: [id number] Name: AMANDA GRUBBS Rep #: [id number] : 1970 Provider: BUCK Méndez Age/Sex: 54/F Location: [facility] Status: Signed Intake Vital Signs 08/19/24 07:30 09/25/24 10:43 Height 5 ft 3 in 5 ft 3 in Weight: 165 lb 164 lb BMI 29.2 29.0 BP 126/86 H 118/78 Blood Pressure Location Lt brachial Lt brachial Position Sitting Respiration 18 Pulse 84 Pulse Source Monitor Temp 97.5 F L Pulse Oximetry (%) 98 Oxygen Delivery Method room air Intake Visit Reasons: REEVAL Chief Complaint: Reeval Allergies No Known Allergies Allergy (Verified 09/25/24 10:43) Medications ???Medication ???Instructions ???Recorded ???Confirmed ???Type ywehppncul-hgxbwhlpcuehs-kd ffeine 1 cap PO Q8H PRN h/a 01/16/23 History 50 mg-300 mg-40 mg capsule (Fioricet) cholecalciferol (vitamin D3) 10 10 mcg PO DAILY 01/16/23 09/25/24 History mcg (400 unit) capsule lorazepam 0.5 mg tablet (Ativan) 0.5 mg PO DAILY PRN anxiety 09/25/24 History biotin 10 mg tablet 10 mg PO QDAY 04/15/24 09/25/24 Hi story ferrous sulfate 325 mg (65 mg 325 mg PO BID 04/15/24 09/25/24 Hi story iron) tablet (FeroSul) calcium glucarate 500 mg capsule 1 tab-cap PO TID 04/21/24 09/25/24 History cyanocobalamin (vitamin B-12) 1,000 mcg IM QWEEK 04/21/24 History 1,000 mcg/mL injection solution levothyroxine 25 mcg tablet 12.5 mcg PO QDAY 04/21/24 09/25/24 History metformin 500 mg tablet 500 mg PO BID 04/21/24 09/25/24 Hi story venlafaxine 75 mg tablet 112.5 mg PO BID 04/21/24 09/25/24 History zinc gluconate 50 mg tablet 50 mg PO QDAY 04/21/24 09/25/24 Hi story omeprazole 20 mg capsule,delayed 40 mg PO DAILY 05/05/24 09/25/24 H istory release ondansetron HCl 4 mg tablet 4 mg PO Q8H PRN nausea and vomitin g 05/06/24 09/25/24 History benzonatate 100 mg capsule 200 mg (2 x 100 mg) PO TID PRN 09/25/24 Rx cough #30 caps PFSH Medical History Lower respiratory tract infection Bacterial sinusitis Anginal pain Somatic dysfunction of lower extremity Psoriatic arthritis Prediabetes Family history of ischemic heart disease Anxiety Secondary insomnia Iron deficiency B12 deficiency Major depression in remission Hypothyroid Anemia Acute pharyngitis, unspecified Aphthous ulcer of mouth delivery delivered Surgical History History of endometrial ablation History of colonoscopy H/O: hysterectomy Hx of cholecystectomy H/O tubal ligation History of weight loss surgery Family History Unknown Heart disease Cancer Kidney disease Breast cancer Lung cancer CHF (congestive heart failure) Father Myocardial infarction Brother Myocardial infarction Social History Smoking Status: Never smoker second hand exposure: Yes alcohol intake: current substance use type: does not use caffeine: Yes HPI REEVAL Chief Complaint: Reeval Visit Number: 1 Details: Amanda Grubbs a 54 year old female presents for reevaluation of neck and back pain. She has been experiencing increased neck and back pain over the last few months, insidious onset. She complains of neck pain and stiffness that is equal bilaterally. She does experience headaches every few days and also migraines which she takes medication for. The neck pain extends into her upper back into the left trap and shoulder. She carries her work bag on the left side and believes this is contributing to the pain. She also complains of low back pain that is equal bilaterally. The pain in her neck and low back have been making it difficult for her to sleep. She has to lay on a heating pad all night to get any sleep. She denies new injury, surgery, numbness or radicular symptoms. She treats her pain at home with Tylenol and heat. She reports previous chiropractic treatments have helped alleviate her pain. Location: neck, UBP, Left shoulder, LBP Duration: constant Aggravating or associated factors: ROM, carrying work bag, sleeping Relieving factors: chiro Treatment: Heat, Tylenol Pain Quality: aching and dull Exam Musc General: Yes normal gait, joint tenderness and decreased range of motion; No normal posture or muscle weakness Cervical Spine: Yes loss of normal cervical lordosis, Yes cervical muscular tenderness left greater than right diffuse , Yes pain with cervical ROM with lateral flexion to right, with lateral flexion to left and with extension, Yes cervical (more content not included)... Normal [facility] Pulmonary Visit Reporton Pulmonary Visit Report [facility] [address] [place] [address] OFFICE VISIT Date of Service: 08/19/24 MR#: [id number] Acct: [id number] Name: AMANDA GRUBBS Rep #: [id number] : 1970 Provider: Moon Lyman NP Age/Sex: 54/F Location: [facility] Status: Signed Assessment and Plan Assessment and Plan (1) Solitary pulmonary nodule: Status: Acute Comment: RUL 4.6 mm nodule Plan: The nodule has shown stability since June 2021 and the patient has low risk as she is a non- smoker. I have given the patient an option of repeating chest CT in 11 months or monitoring symptomatically as the nodule has been followed now for 2 full years (Edyta criteria). The decision has been made to repeat CT in 11 months, 12 months from previous imaging and has been ordered accordingly. The patient should continue with antibiotics as previously prescribed. If she does not return to baseline in the next few weeks she is to notify this practice and I will plan for further workup. Orders: Orders Chest without Contrast 11 Months R91.1 - Solitary pulmonary nodule Plan Details Follow Up: 1 Year (LMR) HPI HPI Comments Details: Patient is a 54-year-old female who presents today for evaluation of pulmonary nodule. She is ambulatory and currently on room air. She is being referred from Rolan Valdes, Cardiology [facility]. Her PCP is Dr. Franky Pearson. She is a lifelong non-smoker. 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 She has never seen a molded goods spot picker. The patient indicates that she had COVID 3 to 4 years ago. She went to the ER for abdominal pain. A abdominal CT was obtained which showed a lung nodule at that time. She reports that this nodule has been watched for 3 years and she was told it was growing . Due to strong cardiac family history the patient underwent a cardiac CT on June 13, 2024 which continue to show a stable 4.6 noncalcified nodule in the medial aspect of the right upper lobe when compared to previous image from January 2024. The patient has imaging from [facility] including a chest CT on 2022 which showed a 5 mm left upper lobe nodule and a 6 mm soft tissue right upper lobe nodule along the minor fissure. Also noted were a few scattered smaller nodules. There was mild mediastinal lymphadenopathy with a 2 cm subcarinal node and a right pretracheal node measuring 16 mm in the short axis. This was closely compared to a previous image from November 2021 and noted that there was no significant interval change. An additional CT of the chest from July 04, 2021 is available to review today which shows the nodule present at that time. I do not have the abdominal CT available for review. A chest x-ray was performed on August 26, 2022 which showed no acute radiographic findings. The CT scan was recently repeated on June 30, 2024 which continues to show a stable 4.6 well- defined nodule in the anterior medial aspect of the right upper lobe. No left upper lobe nodule identified. Recommendation was to repeat imaging in 12 months. The patient reports that she has had illness and colds since . She reports that this is the first year she has had a respiratory illness. She reports that she has had full recovery from each respiratory illness but most recently had a suspected pneumonia for which she was started on doxycycline last Sunday. She reports that she is 75% improved from beginning the antibiotic. She has no history of asthma. She does have 5 dogs who live inside along with hard wood floor[place] She also has a wood burner. She indicates that all of her preventative screenings are up-to-date. She has had a recent mammogram which shows a right breast nodule at 10:00 that has been followed with ultrasounds and the patient reports that they have been stable . Today she denies wheeze. She reports that the cough is improved now being on an antibiotic. She does have shortness of breath when she is sick but because she is feeling better, this has improved. She denies chest pain and tightness. She denies fever, chills, body aches. She has not used Tessalon Perles as they have not been beneficial. Intake Vital Signs 06/13/24 12:45 08/19/24 07:30 Height 5 ft 3 in 5 ft 3 in Weight: 165 lb BMI 29.2 BP 126/86 H Blood Pressure Location Lt brachial Position Sitting Respiration 18 Pulse 84 Pulse Source Monitor Temp 97.5 F L Temperature Source Temporal Artery Pulse Oximetry (%) 98 Oxygen Delivery Method room air Intake Visit Reasons: Lung Nodule Chief Complaint: BA, [place], ST, chest congest, sinus pressure Supervisor Line Department Required: No DME Vendor: n/a Accompanied by: Self Is patient in pain?: No Allergies No Known Allerg (more content not included)... Normal [facility] Urgent Care Visit Reporton 0 08-13-2024 Urgent Care Visit Report [facility] [address], [address] [place] [address] OFFICE VISIT Date of Service: 08/13/24 MR#: [id number] Acct: [id number] Name: AMANDA GRUBBS Rep #: [id number] : 1970 Provider: ANA Carver Age/Sex: 54/F Location: [facility] Status: Signed Intake Vital Signs 06/13/24 12:45 08/13/24 08:34 Height 5 ft 3 in BP 120/60 Position Sitting Pulse 83 Temp 97.6 F L Temp Source Oral Pulse Oximetry (%) 99 Oxygen Delivery Method room air Intake Visit Reasons: CONCERN FOR PNEUMONIA Accompanied by: Self Allergies No Known Allergies Allergy (Verified 08/13/24 08:38) Medications ???Medication ???Instructions ???Recorded ???Confirmed ???Type whvsiezzvw-rslwiibjskxor-tz ffeine 1 cap PO Q8H PRN h/a 01/16/2311/02 History 50 mg-300 mg-40 mg capsule (Fioricet) cholecalciferol (vitamin D3) 10 10 mcg PO DAILY 01/16/23 08/13/24 History mcg (400 unit) capsule lorazepam 0.5 mg tablet (Ativan) 0.5 mg PO DAILY PRN anxiety 08/13/24 History biotin 10 mg tablet 10 mg PO QDAY 04/15/24 08/13/24 Hi story ferrous sulfate 325 mg (65 mg 325 mg PO BID 04/15/24 08/13/24 Hi story iron) tablet (FeroSul) calcium glucarate 500 mg capsule 1 tab-cap PO TID 04/21/24 08/13/24 History cyanocobalamin (vitamin B-12) 1,000 mcg IM QWEEK 04/21/24 History 1,000 mcg/mL injection solution levothyroxine 25 mcg tablet 12.5 mcg PO QDAY 04/21/24 08/13/24 History metformin 500 mg tablet 500 mg PO BID 04/21/24 08/13/24 Hi story venlafaxine 75 mg tablet 112.5 mg PO BID 04/21/24 08/13/24 History zinc gluconate 50 mg tablet 50 mg PO QDAY 04/21/24 08/13/24 Hi story omeprazole 20 mg capsule,delayed 40 mg PO DAILY 05/05/24 08/13/24 H istory release ondansetron HCl 4 mg tablet 4 mg PO Q8H PRN nausea and vomitin g 05/06/24 08/13/24 History benzonatate 100 mg capsule 200 mg (2 x 100 mg) PO TID PRN 08/13/24 Rx cough #30 caps amoxicillin 500 mg tablet 500 mg PO TID #30 tabs 07/23/24 Rx doxycycline monohydrate 100 mg 100 mg PO BID 7 days #14 caps 11/0208/13/24 Rx capsule Nurse's Note: Patient has a cough,stuffy nose, chest hurts when coughing. Patient has greenish mucus discharge from her nose. Patient grandson had pneumonia. [facility] Medical History (Updated 08/13/24 @ 08:43 by Jose M Carver NP-C) Lower respiratory tract infection Bacterial sinusitis Anginal pain Somatic dysfunction of lower extremity Psoriatic arthritis Prediabetes Family history of ischemic heart disease Anxiety Secondary insomnia Iron deficiency B12 deficiency Major depression in remission Hypothyroid Anemia Acute pharyngitis, unspecified Aphthous ulcer of mouth delivery delivered Surgical History History of endometrial ablation History of colonoscopy H/O: hysterectomy Hx of cholecystectomy H/O tubal ligation History of weight loss surgery Family History Unknown Heart disease Cancer Kidney disease Breast cancer Lung cancer CHF (congestive heart failure) Father Myocardial infarction Brother Myocardial infarction Social History Smoking Status: Never smoker alcohol intake: current substance use type: does not use caffeine: Yes HPI HPI Details: AMANDA GRUBBS, is a 54 F who presents to the office today for HPI: Patient was seen here about a month ago and was diagnosed with influenza and strep. She was feeling better but then about a week ago she was with her family and developed a cough. She notes at that time family member had pneumonia. She otherwise denies any recent fevers. She also notes ongoing sinus pain pressure and drainage. ROS: As noted in HPI Physical Exam: VITALS: Reviewed. GEN: Healthy appearing, well-developed, NAD. PSYCH: AOx3. Normal memory, mood, and affect. HEENT -Eyes: -No discharge or redness; -Ears: -Mouth and throat: Moist mucous membranes. NECK: CV: Regular rate and rhythm LUNGS: Normal respiratory effort. Lungs clear bilaterally. SKIN: Warm, well perfused. No skin rashes or abnormal lesions noted. MSK: Normal gait. NEURO: Ambulating with no limitations. Normal muscle strength and tone. No focal deficits. Coding Level of Care Code Off vis,est,level 3 Diagnoses Bacterial sinusitis J32.9; B96.89 Lower respiratory tract infection J22 Assessment and Plan Assessment and Plan (1) Bacterial sinusitis: Status: Acute Plan: Patient started on doxycycline to cover bacterial sinus infection and potential bacterial lower respiratory tract infection. We did discuss possibl (more content not included)... Normal [facility] Office Visit Reporton 2024 Office Visit Report [facility] [address] [place] [address] OFFICE VISIT Date of Service: 07/23/24 MR#: [id number] Acct: [id number] Patient: AMANDA GRUBBS Rep #: [id number] : 1970 Provider: BLU Marshall Age/Sex: 54/F Location: [facility] Status: Signed Employer Purchased Covid Test Note: Patient here today for Covid Testing, requested by their Employer. 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 Urgent Care Visit Reporton 0 07-23-2024 Urgent Care Visit Report [facility] [address], [address] [place] [address] OFFICE VISIT Date of Service: 07/23/24 MR#: [id number] Acct: [id number] Name: AMANDA GRUBBS Rep #: [id number] : 1970 Provider: BLU Marshall Age/Sex: 54/F Location: [facility] Status: Signed with Addenda ADDENDUM by BLU Marshall on 07/23/24 at 1239 HPI Details: A/P (continued): (3) Influenza A - Tamiflu as prescribed today, and recommend supportive measure as discussed in office today. Assessment and Plan Assessment and Plan Medications: New amoxicillin 500 mg PO TID 30 tabs 0RF oseltamivir 75 mg PO BID 5 days 10 caps 0RF Plan Details Goals Barriers: Goals Decrease pain Decrease spasm Decrease HAs 07/23/24 1239 Date Angus Villalobos cc: * Signed Intake Vital Signs 06/13/24 12:45 Height 5 ft 3 in Intake Visit Reasons: SINUS CALVIN/PRES/ST Chief Complaint: BA, [place], ST, chest congest, sinus pressure Allergies No Known Allergies Allergy (Verified 07/23/24 11:59) PFSH Medical History Anginal pain Somatic dysfunction of lower extremity Psoriatic arthritis Prediabetes Family history of ischemic heart disease Anxiety Secondary insomnia Iron deficiency B12 deficiency Major depression in remission Hypothyroid Anemia Acute pharyngitis, unspecified Aphthous ulcer of mouth delivery delivered Surgical History History of endometrial ablation History of colonoscopy H/O: hysterectomy Hx of cholecystectomy H/O tubal ligation History of weight loss surgery Family History Unknown Heart disease Cancer Kidney disease Breast cancer Lung cancer CHF (congestive heart failure) Father Myocardial infarction Brother Myocardial infarction Social History Smoking Status: Never smoker alcohol intake: current substance use type: does not use caffeine: Yes HPI HPI Chief Complaint: BA, [place], ST, chest congest, sinus pressure Details: AMANDA GRUBBS, is a 54 F who presents to the office today for [facility] for approximately 2 to 3-day history of progressively worsening myalgias, headache, chest congestion, maxillary sinus pressure, and sore throat with swollen tender cervical lymph nodes in front of neck, no cough, no fever. Painful swallowing appreciated though no difficulty swallowing/drooling. No rash. No complaints of chest pressure/shortness of breath/dyspnea on exertion. No close contacts with similar complaints. ???No avgn-adh-hbvkvdp products taken to assist. No other associated symptoms and no other alleviating/aggravating factors. ROS Const Constitutional: No other (As above) Exam Const General: cooperative, healthy appearing and no acute distress Orientation: alert, awake and oriented x3 HENMT Head: normal to inspection Ears: hearing grossly normal bilaterally, external ears normal, TM's normal bilaterally and EAC's normal Nose: external nose normal, nares normal, septum normal and no nasal discharge Face and sinus: normal facial exam, bilateral maxillary sinus palpable tender and face symmetric Mouth: oral mucosae normal, lip normal, tongue normal and oropharynx normal Throat: posterior oropharynx normal, uvula midline, abnormal tonsil bilaterally erythema; no exudates and no hypertrophy and no postnasal drainage Eyes General: appearance normal, both eyes and all related structures Neck Neck: normal visual inspection, full ROM, no meningeal signs, supple and lymphadenopathy (Bilateral anterior cervical lymph node swelling/tender to palpation) Neck mass: No Thyroid: thyroid normal Chest Chest palpation inspection: normal inspection of the chest Resp Effort Inspection: normal respiratory effort and able to speak in complete sentences Auscultation: Bilateral: Clear to Auscultation Cardio Palpation: normal PMI Rate: regular rate Rhythm: regular rhythm Heart Sounds: S1 normal, S2 normal, no gallops, no murmurs and no rubs Pulses: radial pulses present Skin General: no rashes or lesions noted Neuro General: patient alert, patient awake and patient oriented x3 Cognition: normal cognition Speech: speech normal Psych Appearance: grossly normal Mental Status: mental status grossly normal Mood: congruent mood Affect: normal affect Speech and Movement: speech and movement normal Attitude: cooperative Diagnoses Acute streptococcal pharyngitis J02.0 Contact with or exposure to other viral diseases Z20.828 Assessment and Plan Assessment and Plan (1) Acute streptococcal (more content not included)... Normal [facility] Urgent Care Visit Report [facility] [address], [address] [place] [address] OFFICE VISIT Date of Service: 07/23/24 MR#: [id number] Acct: [id number] Name: AMANDA GRUBBS Rep #: [id number] : 1970 Provider: BLU Marshall Age/Sex: 54/F Location: [facility] Status: Signed Intake Vital Signs 06/13/24 12:45 07/23/24 11:58 Height 5 ft 3 in BP 124/64 H Blood Pressure Location Lt brachial Position Sitting Respiration 16 Pulse 107 H Pulse Source NIBP Temp 97.9 F Temp Source Oral Pulse Oximetry (%) 95 Oxygen Delivery Method room air Intake Visit Reasons: 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 denies fevers. pt resulted negative for cepheid IN ERROR. pt was FLU AND STREP POSITIVE. pt and provider has been advised of results PFSH Medical History Anginal pain Somatic dysfunction of lower extremity Psoriatic arthritis Prediabetes Family history of ischemic heart disease Anxiety Secondary insomnia Iron deficiency B12 deficiency Major depression in remission Hypothyroid Anemia Acute pharyngitis, unspecified Aphthous ulcer of mouth delivery delivered Surgical History History of endometrial ablation History of colonoscopy H/O: hysterectomy Hx of cholecystectomy H/O tubal ligation History of weight loss surgery Family History Unknown Heart disease Cancer Kidney disease Breast cancer Lung cancer CHF (congestive heart failure) Father Myocardial infarction Brother Myocardial infarction Social History Smoking Status: Never smoker alcohol intake: current substance use type: does not use caffeine: Yes HPI HPI Chief Complaint: BA, [place], ST, chest congest, sinus pressure Details: ADDENDUM by BLU Marshall on 07/23/24 at 1239 HPI Details: A/P (continued): (3) Influenza A - Tamiflu as prescribed today, and recommend supportive measure as discussed in office today. Assessment and Plan Assessment and Plan Medications: New amoxicillin 500 mg PO TID 30 tabs 0RF oseltamivir 75 mg PO BID 5 days 10 caps 0RF Plan Details Goals Barriers: Goals Decrease pain Decrease spasm Decrease HAs 07/23/24 1239 Date Angus Villalobos cc: * Signed Intake Vital Signs 06/13/2511:45 Height 5 ft 3 in Intake Visit Reasons: SINUS CALVIN/PRES/ST Chief Complaint: BA, [place], ST, chest congest, sinus pressure Allergies No Known Allergies Allergy (Verified 07/23/24 11:59) PFSH Medical History Anginal pain Somatic dysfunction of lower extremity Psoriatic arthritis Prediabetes Family history of ischemic heart disease Anxiety Secondary insomnia Iron deficiency B12 deficiency Major depression in remission Hypothyroid Anemia Acute pharyngitis, unspecified Aphthous ulcer of mouth delivery delivered Surgical History History of endometrial ablation History of colonoscopy H/O: hysterectomy Hx of cholecystectomy H/O tubal ligation History of weight loss surgery Family History Unknown Heart disease Cancer Kidney disease Breast cancer Lung cancer CHF (congestive heart failure)Father Myocardial infarctionBrother Myocardial infarction Social History Smoking Status: Never smoker alcohol intake: current substance use type: does not use caffeine: Yes HPI HPI Chief Complaint: BA, [place], ST, chest congest, sinus pressure Details: AMANDA GRUBBS, is a 54 F who presents to the office today for [facility] for approximately 2 to 3-day history of progressively worsening myalgias, headache, chest congestion, maxillary sinus pressure, and sore throat with swollen tender cervical lymph nodes in front of neck, no cough, no fever. Painful swallowing appreciated though no difficulty swallowing/drooling. No rash. No complaints of chest pressure/shortness of breath/dyspnea on exertion. No close contacts with similar complaints. ???No fbtv-bvu-rzajbdv products taken t (more content not included)... Normal [facility] Vitamin B1, Thiamineon 07-08 VIT B1 THIAMINE 89.5 nmol/L Normal 66.5-200.[address] [facility] Comment on above: Order Comment: Test( s) 160738-Jny. B1, Whole Bloodwas developed and its performance characteristicsdetermined by [employer]. It has not been cleared or approvedby the Food and Drug Administration. Performed By: #### L 100.0500, L503.6550, L503.0105, L500.4050, L501.9985, L500.4100, L3300.9900, L503.6030, L506.0400, L506.1000, L3300.8000, L506.0250, L501.9520 ####[facility] [address] [place], [place], [phone] Zinc, Plasma or Serumon 06-12 ZINC,PLASMA/SER 62 ug/dL Normal 44-[address] [facility] Comment on above: Order Comment: Test( s) [id number]-Oxk. B1, Whole Bloodwas developed and its performance characteristicsdetermined by [employer]. It has not been cleared or approvedby the Food and Drug Administration. Result Comment: Dete ction Limit = 5 Performed at: [address] [id number] [employer]: James Herrera MD, Phone: [phone] Performed By: #### L 100.0500, L503.6550, L503.0105, L500.4050, L501.9985, L500.4100, L3300.9900, L503.6030, L506.0400, L506.1000, L3300.8000, L506.0250, L501.9520 ####[facility] [address] [place], [place], [phone] CBC-Complete Blood Cnt No Di ffon 07-01-2024 Erythrocyte distribution width (RBC) [Ratio] 12.6 % Normal 11.6-14.[address] [facility] Comment on above: Performed By: #### L 100.0500, L503.6550, L503.0105, L500.4050, L501.9985, L500.4100, L3300.9900, L503.6030, L506.0400, L506.1000, L3300.8000, L506.0250, L501.9520 ####[facility] [address] [place], [address] Hematocrit (Bld) [Volume fraction] 36.8 % Low 37-[address] [facility] Comment on above: Performed By: #### L 100.0500, L503.6550, L503.0105, L500.4050, L501.9985, L500.4100, L3300.9900, L503.6030, L506.0400, L506.1000, L3300.8000, L506.0250, L501.9520 ####[facility] [address] [place], [address] Hemoglobin (Bld) [Mass/Vol] 11.7 g/dL Low 12.0-15.[address] [facility] Comment on above: Performed By: #### L 100.0500, L503.6550, L503.0105, L500.4050, L501.9985, L500.4100, L3300.9900, L503.6030, L506.0400, L506.1000, L3300.8000, L506.0250, L501.9520 ####[facility] [address] [place], [place], [phone](660) MCH (RBC) [Entitic mass] 30.2 pg Normal 27.0-32.[address] [facility] Comment on above: Performed By: #### L 100.0500, L503.6550, L503.0105, L500.4050, L501.9985, L500.4100, L3300.9900, L503.6030, L506.0400, L506.1000, L3300.8000, L506.0250, L501.9520 ####[facility] [address] [place], [address] MCHC (RBC) [Mass/Vol] 31.8 g/dL Low 32-[address] [facility] Comment on above: Performed By: #### L 100.0500, L503.6550, L503.0105, L500.4050, L501.9985, L500.4100, L3300.9900, L503.6030, L506.0400, L506.1000, L3300.8000, L506.0250, L501.9520 ####[facility] [address] [place], [address] MCV (RBC) [Entitic vol] 94.8 fL Normal 81-[address] [facility] Comment on above: Performed By: #### L 100.0500, L503.6550, L503.0105, L500.4050, L501.9985, L500.4100, L3300.9900, L503.6030, L506.0400, L506.1000, L3300.8000, L506.0250, L501.9520 ####[facility] [address] [place], [place], [phone](024) Platelet mean volume (Bld) [Entitic vol] 9.1 fL Normal 6.2-12.[address] [facility] Comment on above: Performed By: #### L 100.0500, L503.6550, L503.0105, L500.4050, L501.9985, L500.4100, L3300.9900, L503.6030, L506.0400, L506.1000, L3300.8000, L506.0250, L501.9520 ####[facility] [address] [place], [place], [phone](818) Platelets (Bld) [#/Vol] 288 10*3/uL Normal 150-[address] [facility] Comment on above: Performed By: #### L 100.0500, L503.6550, L503.0105, L500.4050, L501.9985, L500.4100, L3300.9900, L503.6030, L506.0400, L506.1000, L3300.8000, L506.0250, L501.9520 ####[facility] [address] [place], [address](958) RBC (Bld) [#/Vol] 3.88 10*6/uL Low 4.2-5.4 [facility] Comment on above: Performed By: #### L 100.0500, L503.6550, L503.0105, L500.4050, L501.9985, L500.4100, L3300.9900, L503.6030, L506.0400, L506.1000, L3300.8000, L506.0250, L501.9520 ####[facility] [address] [place], [place], [phone] RDW SD 43.9 fl Normal 35.1-43.[address] [facility] Comment on above: Performed By: #### L 100.0500, L503.6550, L503.0105, L500.4050, L501.9985, L500.4100, L3300.9900, L503.6030, L506.0400, L506.1000, L3300.8000, L506.0250, L501.9520 ####[facility] [address] [place], [address] WBC (Bld) [#/Vol] 6.6 10*3/uL Normal 4.4-11.0 [facility] Comment on above: Performed By: #### L 100.0500, L503.6550, L503.0105, L500.4050, L501.9985, L500.4100, L3300.9900, L503.6030, L506.0400, L506.1000, L3300.8000, L506.0250, L501.9520 ####[facility] [address] [place], [place], [phone] Comprehensive Metabolic Prof [facility] 07-01-2024 Albumin [Mass/Vol] 3.7 g/dL Normal 3.2-5.0 [facility] Comment on above: Order Comment: Y Performed By: #### L 100.0500, L503.6550, L503.0105, L500.4050, L501.9985, L500.4100, L3300.9900, L503.6030, L506.0400, L506.1000, L3300.8000, L506.0250, L501.9520 ####[facility] [address] [place], [place], [phone] Albumin/Globulin [Mass ratio] 0.9 {ratio} Normal 0.9-2.[address] [facility] Comment on above: Order Comment: Y Performed By: #### L 100.0500, L503.6550, L503.0105, L500.4050, L501.9985, L500.4100, L3300.9900, L503.6030, L506.0400, L506.1000, L3300.8000, L506.0250, L501.9520 ####[facility] [address] [place], [place], [phone] ALK P 108 U/L Normal 45-[address] [facility] Comment on above: Order Comment: Y Performed By: #### L 100.0500, L503.6550, L503.0105, L500.4050, L501.9985, L500.4100, L3300.9900, L503.6030, L506.0400, L506.1000, L3300.8000, L506.0250, L501.9520 ####[facility] [address] [place], [place], [phone] ALT [Catalytic activity/Vol] 18 U/L Normal 13-[address] [facility] Comment on above: Order Comment: Y Performed By: #### L 100.0500, L503.6550, L503.0105, L500.4050, L501.9985, L500.4100, L3300.9900, L503.6030, L506.0400, L506.1000, L3300.8000, L506.0250, L501.9520 ####[facility] [address] [place], [place], [phone] AST [Catalytic activity/Vol] 12 U/L Low 15-[address] [facility] Comment on above: Order Comment: Y Performed By: #### L 100.0500, L503.6550, L503.0105, L500.4050, L501.9985, L500.4100, L3300.9900, L503.6030, L506.0400, L506.1000, L3300.8000, L506.0250, L501.9520 ####[facility] [address] [place], [place], [phone] Bilirubin [Mass/Vol] 0.20 mg/dL Normal 0.20-1.00 [facility] Comment on above: Order Comment: Y Result Comment: For patients on eltrombopag therapy, use of Dimension Kim TBIL is not recommended. Performed By: #### L 100.0500, L503.6550, L503.0105, L500.4050, L501.9985, L500.4100, L3300.9900, L503.6030, L506.0400, L506.1000, L3300.8000, L506.0250, L501.9520 ####[facility] [address] [place], [place], [phone] BUN/CRE 9.7 RATIO Low 10-[address] [facility] Comment on above: Order Comment: Y Performed By: #### L 100.0500, L503.6550, L503.0105, L500.4050, L501.9985, L500.4100, L3300.9900, L503.6030, L506.0400, L506.1000, L3300.8000, L506.0250, L501.9520 ####[facility] [address] [place], [place], [phone] CA,Total 9.5 mg/dL Normal 8.5-10.[address] [facility] Comment on above: Order Comment: Y Performed By: #### L 100.0500, L503.6550, L503.0105, L500.4050, L501.9985, L500.4100, L3300.9900, L503.6030, L506.0400, L506.1000, L3300.8000, L506.0250, L501.9520 ####[facility] [address] [place], [place], [phone] Chloride [Moles/Vol] 106 mmol/L Normal 98-107 [facility] Comment on above: Order Comment: Y Performed By: #### L 100.0500, L503.6550, L503.0105, L500.4050, L501.9985, L500.4100, L3300.9900, L503.6030, L506.0400, L506.1000, L3300.8000, L506.0250, L501.9520 ####[facility] [address] [place], [place], [phone] CO2 [Moles/Vol] 27.0 mmol/L Normal 21.0-32.[address] [facility] Comment on above: Order Comment: Y Performed By: #### L 100.0500, L503.6550, L503.0105, L500.4050, L501.9985, L500.4100, L3300.9900, L503.6030, L506.0400, L506.1000, L3300.8000, L506.0250, L501.9520 ####[facility] [address] [place], [place], [phone] Creatinine [Mass/Vol] 0.93 mg/dL Normal 0.55-1.[address] [facility] Comment on above: Order Comment: Y Result Comment: The validity of the calculated GFR GFRAA in patients over 70 years has not been determined. Clinical correlation is essential. Performed By: #### L 100.0500, L503.6550, L503.0105, L500.4050, L501.9985, L500.4100, L3300.9900, L503.6030, L506.0400, L506.1000, L3300.8000, L506.0250, L501.9520 ####[facility] [address] [place], [place], [phone] EST GFR - AA 81 mL/min Normal >[address] [facility] Comment on above: Order Comment: Y Result Comment: Afri can Bangladeshi GFR Calc Performed By: #### L 100.0500, L503.6550, L503.0105, L500.4050, L501.9985, L500.4100, L3300.9900, L503.6030, L506.0400, L506.1000, L3300.8000, L506.0250, L501.9520 ####[facility] [address] [place], [place], [phone] GAP 8 Normal 5-[address] [facility] Comment on above: Order Comment: Y Performed By: #### L 100.0500, L503.6550, L503.0105, L500.4050, L501.9985, L500.4100, L3300.9900, L503.6030, L506.0400, L506.1000, L3300.8000, L506.0250, L501.9520 ####[facility] [address] [place], [place], [phone] GFR/1.73 sq M.predicted among non-blacks MDRD (S/P/Bld) [Vol rate/Area] 67 mL/min/{1.73_m2} Normal >[address] [facility] Comment on above: Order Comment: Y Result Comment: Non- GFR Calc Performed By: #### L 100.0500, L503.6550, L503.0105, L500.4050, L501.9985, L500.4100, L3300.9900, L503.6030, L506.0400, L506.1000, L3300.8000, L506.0250, L501.9520 ####[facility] [address] [place], [address] Globulin (S) [Mass/Vol] 4.0 g/dL Normal 2.2-4.[address] [facility] Comment on above: Order Comment: Y Performed By: #### L 100.0500, L503.6550, L503.0105, L500.4050, L501.9985, L500.4100, L3300.9900, L503.6030, L506.0400, L506.1000, L3300.8000, L506.0250, L501.9520 ####[facility] [address] [place], [address] Glucose [Mass/Vol] 148 mg/dL High 74-106 [facility] Comment on above: Order Comment: Y Result Comment: Fast ing Glucose result greater than or equal to 126 mg/dL suggests DIABETES MELLITUS per A.D.A. criteria. Performed By: #### L 100.0500, L503.6550, L503.0105, L500.4050, L501.9985, L500.4100, L3300.9900, L503.6030, L506.0400, L506.1000, L3300.8000, L506.0250, L501.9520 ####[facility] [address] [place], [address] Potassium [Moles/Vol] 4.3 mmol/L Normal 3.5-5.[address] [facility] Comment on above: Order Comment: Y Performed By: #### L 100.0500, L503.6550, L503.0105, L500.4050, L501.9985, L500.4100, L3300.9900, L503.6030, L506.0400, L506.1000, L3300.8000, L506.0250, L501.9520 ####[facility] [address] [place], [address] Sodium [Moles/Vol] 141 mmol/L Normal 136-145 [facility] Comment on above: Order Comment: Y Performed By: #### L 100.0500, L503.6550, L503.0105, L500.4050, L501.9985, L500.4100, L3300.9900, L503.6030, L506.0400, L506.1000, L3300.8000, L506.0250, L501.9520 ####[facility] [address] [place], [place], [phone] T PROT 7.7 g/dL Normal 6.4-8.[address] [facility] Comment on above: Order Comment: Y Performed By: #### L 100.0500, L503.6550, L503.0105, L500.4050, L501.9985, L500.4100, L3300.9900, L503.6030, L506.0400, L506.1000, L3300.8000, L506.0250, L501.9520 ####[facility] [address] [place], [place], [phone] Urea nitrogen [Mass/Vol] 9 mg/dL Normal 7-[address] [facility] Comment on above: Order Comment: Y Performed By: #### L 100.0500, L503.6550, L503.0105, L500.4050, L501.9985, L500.4100, L3300.9900, L503.6030, L506.0400, L506.1000, L3300.8000, L506.0250, L501.9520 ####[facility] [address] [place], [place], [phone] Ferritinon 07-01-2024 Ferritin [Mass/Vol] 34 ng/mL Normal 8-252 [facility] Comment on above: Order Comment: Y Performed By: #### L 100.0500, L503.6550, L503.0105, L500.4050, L501.9985, L500.4100, L3300.9900, L503.6030, L506.0400, L506.1000, L3300.8000, L506.0250, L501.9520 ####[facility] [address] [place], [place], [phone] Folates, (Folic Acid)on 06-12 FOLATES 14.10 ng/mL Normal 3.1-55.[address] [facility] Comment on above: Order Comment: Y Performed By: #### L 100.0500, L503.6550, L503.0105, L500.4050, L501.9985, L500.4100, L3300.9900, L503.6030, L506.0400, L506.1000, L3300.8000, L506.0250, L501.9520 ####[facility] [address] [place], [address] Hemoglobin A1con 07-01-2024 HbA1c (Bld) [Mass fraction] 5.4 % Normal 3.8-5.[address] [facility] Comment on above: Result Comment: Norm al < 5.7 % Prediabetic 5.7 - 6.4 % Diabetic >or= 6.5 % Please note range changes. Performed By: #### L 100.0500, L503.6550, L503.0105, L500.4050, L501.9985, L500.4100, L3300.9900, L503.6030, L506.0400, L506.1000, L3300.8000, L506.0250, L501.9520 ####[facility] [address] [place], [place], [id number] Iron+Iron Binding Capacityon 07-01-2024 Iron [Mass/Vol] 53 ug/dL Normal 50-[address] [facility] Comment on above: Order Comment: Y Performed By: #### L 100.0500, L503.6550, L503.0105, L500.4050, L501.9985, L500.4100, L3300.9900, L503.6030, L506.0400, L506.1000, L3300.8000, L506.0250, L501.9520 ####[facility] [address] [place], [place], [id number] IRON SATURATION 16.3 Normal 15.0-55.[address] [facility] Comment on above: Order Comment: Y Performed By: #### L 100.0500, L503.6550, L503.0105, L500.4050, L501.9985, L500.4100, L3300.9900, L503.6030, L506.0400, L506.1000, L3300.8000, L506.0250, L501.9520 ####[facility] [address] [place], [place], [phone] TIBC 326 ug/dL Normal 250-[address] [facility] Comment on above: Order Comment: Y Performed By: #### L 100.0500, L503.6550, L503.0105, L500.4050, L501.9985, L500.4100, L3300.9900, L503.6030, L506.0400, L506.1000, L3300.8000, L506.0250, L501.9520 ####[facility] [address] [place], [address] Lipid Profileon 07-01-2024 Cholesterol [Mass/Vol] 169 mg/dL Normal [address] [facility] Comment on above: Order Comment: Y Result Comment: <200 mg/dL Desirable 200-240 mg/dL Borderline >240 mg/dL High Risk Performed By: #### L 100.0500, L503.6550, L503.0105, L500.4050, L501.9985, L500.4100, L3300.9900, L503.6030, L506.0400, L506.1000, L3300.8000, L506.0250, L501.9520 ####[facility] [address] [place], [place], [phone] Cholesterol in HDL [Mass/Vol] 77 mg/dL Normal [facility] Comment on above: Order Comment: Y Result Comment: The drugs N-Acetylcysteine and Metamizole may falsely depress this assay. Reference Range HDL <40 mg/dL Low HDL Cholesterol HDL >or= 60 mg/dL High HDL Cholesterol Performed By: #### L 100.0500, L503.6550, L503.0105, L500.4050, L501.9985, L500.4100, L3300.9900, L503.6030, L506.0400, L506.1000, L3300.8000, L506.0250, L501.9520 ####[facility] [address] [place], [place], [phone]) Cholesterol in LDL [Mass/Vol] 71 mg/dL Normal 0-[address] [facility] Comment on above: Order Comment: Y Performed By: #### L 100.0500, L503.6550, L503.0105, L500.4050, L501.9985, L500.4100, L3300.9900, L503.6030, L506.0400, L506.1000, L3300.8000, L506.0250, L501.9520 ####[facility] [address] [place], [place], [phone]) Cholesterol in VLDL [Mass/Vol] 21 mg/dL Normal 5-[address] [facility] Comment on above: Order Comment: Y Performed By: #### L 100.0500, L503.6550, L503.0105, L500.4050, L501.9985, L500.4100, L3300.9900, L503.6030, L506.0400, L506.1000, L3300.8000, L506.0250, L501.9520 ####[facility] [address] [place], [place], [phone] Triglyceride [Mass/Vol] 105 mg/dL Normal [facility] Comment on above: Order Comment: Y Result Comment: The drugs N-Acetylcysteine and Metamizole may falsely depress this assay. Serum Triglycerides Reference Interval Normal <150 mg/dL Borderline high 150 - 199 mg/dL High 200 - 499 mg/dL Very High > or = 500 mg/dL Performed By: #### L 100.0500, L503.6550, L503.0105, L500.4050, L501.9985, L500.4100, L3300.9900, L503.6030, L506.0400, L506.1000, L3300.8000, L506.0250, L501.9520 ####[facility] [address] [place], [place], [phone] T4 Free Directon 07-01-2024 T4 FREE DIRECT 0.87 ng/dL Normal 0.76-1.[address] [facility] Comment on above: Order Comment: Y Performed By: #### L 100.0500, L503.6550, L503.0105, L500.4050, L501.9985, L500.4100, L3300.9900, L503.6030, L506.0400, L506.1000, L3300.8000, L506.0250, L501.9520 ####[facility] [address] [place], [address] Thyroid Stim Hormone (TSH)on 07-01-2024 TSH 0.846 uIU/mL Normal 0.358-3.[address] [facility] Comment on above: Order Comment: Y Performed By: #### L 100.0500, L503.6550, L503.0105, L500.4050, L501.9985, L500.4100, L3300.9900, L503.6030, L506.0400, L506.1000, L3300.8000, L506.0250, L501.9520 ####[facility] [address] [facility] [place], [address] Vitamin B12on 07-01-2024 Cobalamin (Vitamin B12) [Mass/Vol] 408 pg/mL Normal 211-[address] [facility] Comment on above: Performed By: #### L 100.0500, L503.6550, L503.0105, L500.4050, L501.9985, L500.4100, L3300.9900, L503.6030, L506.0400, L506.1000, L3300.8000, L506.0250, L501.9520 ####[facility] [address] [place], [address] Vitamin D,25 Hydroxyon 07-01 Vitamin D 25-OH 29.0 ng/mL Normal [facility] Comment on above: Result Comment: Araceli min D 25(OH) Status Range Deficiency <20 ng/mL (50nmol/L) Insufficiency 20 - 30 ng/mL (50 - 75 nmol/L) Sufficiency 30 - 100 ng/mL (75 - 250 nmol/L) Toxicity >100 ng/mL (>250 nmol/L) Performed By: #### L 100.0500, L503.6550, L503.0105, L500.4050, L501.9985, L500.4100, L3300.9900, L503.6030, L506.0400, L506.1000, L3300.8000, L506.0250, L501.9520 ####[facility] [address] [place], [address] Chest without Contraston Chest without Contrast [facility] Imaging Services [address] [place] [address] Chest without Contrast MR#: [id number] Acct: [id number] Name: AMANDA GRUBBS Rep #: [id number] : 1970 F 54 From: Kervin marvin MD PCP: Dr. Franky Pearson, DO Status: REG CLI Study: Chest without Contrast Date of Exam: 06/30/24 Exam# [id number] Ordering Dr: Rolan Valdes NP [employer] STUDIES PROFESSOR-C [id number] STUDY: CT CHEST WITHOUT CONTRAST REASON FOR EXAM: Female, 54 years old. Evaluate lung nodule noted on cardiac CT RADIATION DOSAGE (If Supplied By Facility): CTDIvol = ( 12.09 ) mGy, DLP = ( 401.71 ) mGycm TECHNIQUE: Transaxial imaging was performed without the administration of intravenous contrast material. Multiplanar coronal and sagittal images were reformatted. Individualized dose optimization techniques were used for this CT. COMPARISON: Comparison is made with prior study dated June 13, 2024. FINDINGS: CHEST Stable 4.6 mm well-defined nodule in the anterior medial aspect of the right upper lobe as seen on axial image #16. There is no demonstrated pleural abnormality. Normal heart and pericardium. No significant coronary artery calcification is seen. Normal mediastinum. Calcified bilateral hilar lymph nodes. Normal unenhanced pulmonary arteries. Normal aorta arch and descending thoracic aorta. Normal osseous structures. Findings suggestive prior subtotal gastrectomy. CT/Chest without Contrast IMPRESSION: Stable 4.6 mm well-defined nodule in the anterior medial aspect of the right upper lobe. 12 month follow-up examination recommended. Electronically Signed: Kervin Naqvi MD at 15:48 EST Reading Location ID and State: [facility] / [place] , Service support , CC: ANA Valdes; Dr. Franky Pearson, Heavy Equipment Rental Manager: Signed Normal [facility] Office Visit Reporton 2024 Office Visit Report [facility] [address] [place] [address] OFFICE VISIT Date of Service: 06/27/24 MR#: [id number] Acct: [id number] Patient: AMANDA GRUBBS Rep #: [id number] : 1970 Provider: BLU Clinton Age/Sex: 54/F Location: [facility] Status: Signed Employer Purchased Covid Test Note: Patient here today for Covid Testing, requested by their Employer. Assessment and Plan Assessment and Plan Orders: Orders POC Cepheid Covid, FluAB, RSV Today Plan Details Goals Barriers: Goals Decrease pain Decrease spasm Decrease HAs 06/27/24 1023 Date Hans HURT Cosigner Signature: Date (if applicable) CC: Normal [facility] Urgent Care Visit Reporton 0 06-27-2024 Urgent Care Visit Report [facility] [address], [address] [place] [address] OFFICE VISIT Date of Service: 06/27/24 MR#: [id number] Acct: [id number] Name: AMANDA GRUBBS Rep #: [id number] : 1970 Provider: BLU Clinton Age/Sex: 54/F Location: [facility] Status: Signed Intake Vital Signs 06/13/24 12:45 06/27/24 10:16 Height 5 ft 3 in BP 114/70 Blood Pressure Location Lt brachial Position Sitting Respiration 17 Pulse 88 Pulse Source NIBP Temp 97.8 F Temp Source Oral Pulse Oximetry (%) 98 Oxygen Delivery Method room air Intake Visit Reasons: COUGH, HEADACHE Chief Complaint: cough, [place], ST, chest congest, BA, chills Supervisor Line Department Required: No Is patient in pain?: No Allergies No Known Allergies Allergy (Verified 06/27/24 10:16) Is last menstrual period known: No Post menopausal: Yes Patient : No Have you fallen in the past year?: No Nurse's Note: cough, [place], ST, chest congest, BA, chills x 3 days [facility] Medical History Anginal pain Somatic dysfunction of lower extremity Psoriatic arthritis Prediabetes Family history of ischemic heart disease Anxiety Secondary insomnia Iron deficiency B12 deficiency Major depression in remission Hypothyroid Anemia Acute pharyngitis, unspecified Aphthous ulcer of mouth delivery delivered Surgical History History of endometrial ablation History of colonoscopy H/O: hysterectomy Hx of cholecystectomy H/O tubal ligation History of weight loss surgery Family History Unknown Heart disease Cancer Kidney disease Breast cancer Lung cancer CHF (congestive heart failure) Father Myocardial infarction Brother Myocardial infarction Social History Smoking Status: Never smoker alcohol intake: current substance use type: does not use caffeine: Yes HPI HPI Chief Complaint: cough, [place], ST, chest congest, BA, chills Details: AMANDA GRUBBS, is a 54 F who presents to the office today for complaint of cough, headache, sore throat, body aches and chills for the past 3 days. Patient denies known fever however has had chills and sweats. No nausea, vomiting or diarrhea. No loss of taste or smell. No other associated symptoms or alleviating/aggravating factors. ROS Const Constitutional: No other (As above) Exam Const General: cooperative and well developed HENMT Head: normal to inspection and atraumatic Ears: hearing grossly normal bilaterally Nose: nasal discharge clear Face and sinus: normal facial exam Mouth: oral mucosae normal Throat: abnormal tonsil bilaterally hypertrophy 1+ Resp Effort Inspection: normal respiratory effort and no audible wheezes Auscultation: Bilateral: Clear to Auscultation Cardio Palpation: normal PMI Rate: regular rate Rhythm: regular rhythm Neuro General: patient alert and CN's II-XI intact bilaterally Psych Appearance: grossly normal Mental Status: mental status grossly normal Results POC CEPH COV,FluAB,RSV PCR CEPHEID COVID PCR Not DETECTED Last Edit by Jaja Montero on 06/27/24 10:55 CEPHEID FLU AB PCR NOT DETECTED FLU A B Last Edit by Jaja Montero on 06/27/24 10:55 CEPHEID RSV PCR NOT DETECTED Last Edit by Jaja Montero on 06/27/24 10:55 Coding Level of Care Code Off vis,est,level 3 Diagnoses Contact with or suspected exposure to other viral communicable disease Z20.828 Acute upper respiratory infection J06.9 Assessment and Plan Assessment and Plan (1) Contact with or suspected exposure to other viral communicable disease: Status: Acute (2) Acute upper respiratory infection: Status: Acute Orders: Orders POC Cepheid Covid, FluAB, RSV Today Medications: New benzonatate 200 mg (2 x 100 mg) PO TID PRN 30 caps 0RF cough Plan Patient tested negative for COVID, influenza and RSV in the office today. Benzonatate as prescribed today. Encouraged to get plenty of rest, drink lots of clear liquids, and use Tylenol or Ibuprofen (unless contraindicated) for fever and comfort. Patient also educated on other symptomatic management techniques. To be seen in 7-10 days if no improvement; sooner if worsening of symptoms. Patient advised of potential red flags and when appropriate to report to the ED. Patient verbalized understanding and agreement with all the above. Plan Details Goals Barriers: Goals Decrease pain Decrease spasm Decrease HAs Clinical Quality Measures Falls Risk Screening/Assistive Devices Have you fallen in the past year?: No 06/27/24 1156 Date Hans HURT (more content not included)... Normal [facility] CREATININE FINGERSTICKon CREATININE WB < 1.0 Normal 0.55-1.[address] [facility] Comment on above: Performed By: #### L 9100.0200 #### [facility] Laboratory [address] [place], [address] EGFR WB > 60.0000 Normal >[address] [facility] Comment on above: Performed By: #### L 9100.0200 #### [facility] [address] [place], [address] Coronary Angiography CTon Coronary Angiography CT [facility] Imaging Services [address] [place] [address] 06/13/24 1556 MR#: [id number] Acct: [id number] Name: AMANDA GRUBBS Rep #: [id number] : 1970 53 From: Allan Coleman MD PCP: Dr. Franky Pearson DO Status:REG CLI Y Location: CT CCTA w/Cont Coronary Arteries Date of Study:: 06/13/24 Chest pain Coronary Calcium Scoring: High-resolution Computed Tomographic imaging of the chest was performed on [06/13/2024], with particular attention paid to the coronary arteries. Intravenous contrast agent was administered per protocol and images reconstructed and displayed. LEFT MAIN CORONARY ARTERY: This arises from the left coronary cusp with no stenosis present. [] LEFT ANTERIOR DESCENDING CORONARY ARTERY: This arises from the left main coronary artery and gives off 2 diagonal branches and then courses towards the apex of the ventricle. No significant coronary stenosis is present. [] LEFT CIRCUMFLEX CORONARY ARTERY: This arises from the left main coronary artery and courses in the AV groove giving off 2 obtuse marginal branches with no stenosis noted. [] RIGHT CORONARY ARTERY: Dominant vessel from the right coronary cusp given of an acute marginal branch and terminating with a posterior descending artery and posterolateral vessel. No significant stenosis noted in this vessel. [] THORACIC AORTA: [] PULMONARY ARTERY: [] LEFT ATRIUM/APPENDAGE: [] MITRAL VALVE: [] AORTIC VALVE: [] LEFT VENTRICLE: [] CORONARY CALCIUM SCORE: Not performed but no obvious coronary calcification is seen. Conclusion: CT angiogram demonstrating no coronary atherosclerotic plaquing present. [] 06/13/24 1558 Date Allan Coleman MD Cosigner Signature (if applicable): Date CC: Dr. Allan Coleman MD; Dr. Franky Pearson DO; Dr. Franky Hollingsworth MD Signed Normal [facility] Limited Chest CT Cardiac Onl yon 06-13-[address] Cardiac Only [facility] Imaging Services [address] [place] [address] Cardiac Only MR#: [id number] Acct: [id number] Name: AMANDA GRUBBS Rep #: [id number] : 1970 F 53 From: Kervin marvin MD PCP: Dr. Franky Pearson DO Status: REG CL Study: Limited Chest CT Cardiac Only Date of Exam: Exam# [id number] Ordering Dr: Franky Hollingsworth MD [id number] STUDY: CT CHEST WITH CONTRAST REASON FOR EXAM: Female, 53 years old. CHEST PAIN limited chest over read only RADIATION DOSAGE (If Supplied By Facility): CTDIvol = ( 32.38 ) mGy, DLP = ( 914.27 ) mGycm TECHNIQUE: Transaxial imaging was performed following intravenous administration of IV 55mL Isovue-370. Individualized dose optimization techniques were used for this CT. COMPARISON: Comparison is made with prior study dated January 18, 2024. FINDINGS: CHEST Stable 4.6 mm noncalcified nodule in the medial aspect of the right upper lobe. There is no demonstrated pleural abnormality. No significant coronary artery calcification is seen. Minimal anterior pericardial thickening. Normal mediastinum. Calcified bilateral hilar lymph nodes. Normal unenhanced pulmonary arteries. Normal aorta arch and descending thoracic aorta. Normal osseous structures. Fatty infiltration of the liver. Findings suggest a prior subtotal gastrectomy for gastric bypass surgery. CT/Limited Chest CT Cardiac Only IMPRESSION: No evidence of coronary artery calcification. Electronically Signed: Kervin Naqvi MD at 11:17 EST , CC: Dr. Franky Pearson DO; Dr. Franky Hollingsworth MD Heavy Equipment Rental Manager: Signed Normal [facility] Oncology Visit Reporton Oncology Visit Report [facility] [address] [place] [address] OFFICE VISIT Date of Service: 05/13/24 1633 MR#: [id number] Acct: [id number] Name: AMANDA GRUBBS Rep #: [id number] : 1970 From: Santiago Og MD Age/Sex: 53/F [place] [facility] [place]: Signed HPI Subjective Date of Service 05/13/24 Chief Complaint F/u for anemia. History of Present Illness 53y.o.woman with history of Gastric bypass in 2018 was found to have Iron deficiency anemia, started on oral Iron but has not improved so referred for further evaluation. Denied weight loss, fever, gets night sweats. [facility] Medical History Anginal pain Somatic dysfunction of lower extremity Psoriatic arthritis Prediabetes Family history of ischemic heart disease Anxiety Secondary insomnia Iron deficiency B12 deficiency Major depression in remission Hypothyroid Anemia Acute pharyngitis, unspecified Aphthous ulcer of mouth delivery delivered Surgical History History of endometrial ablation History of colonoscopy H/O: hysterectomy Hx of cholecystectomy H/O tubal ligation History of weight loss surgery Family History Unknown Heart disease Cancer Kidney disease Breast cancer Lung cancer CHF (congestive heart failure) Father Myocardial infarction Brother Myocardial infarction Social History Smoking Status: Never smoker alcohol intake: current substance use type: does not use caffeine: Yes Intake Vital Signs 05/06/24 10:55 05/13/24 16:34 Height 5 ft 3 in 5 ft 3 in Weight: 76.26 kg BMI 29.7 BP 133/87 H Blood Pressure Location Lt brachial Position Sitting Respiration 18 Pulse 83 Pulse Source Monitor Temp 98.1 F Temperature Source Temporal Artery Pulse Oximetry (%) 100 Oxygen Delivery Method room air Intake Is patient in pain?: No Allergies No Known Allergies Allergy (Verified 05/13/24 16:36) Medications ???Medication ???Instructions ???Recorded ???Confirmed ???Type lavzwsezuq-mbkpiznbsewga-du ffeine 1 cap PO Q8H PRN 01/16/23 05/13/24 History 50 mg-300 mg-40 mg capsule (Fioricet) cholecalciferol (vitamin D3) 10 10 mcg PO DAILY 01/16/23 05/13/24 History mcg (400 unit) capsule lorazepam 0.5 mg tablet (Ativan) 0.5 mg PO DAILY PRN 01/16/23 05/13/24 History biotin 10 mg tablet 10 mg PO QDAY 04/15/24 05/13/24 History ferrous sulfate 325 mg (65 mg 325 mg PO BID 04/15/24 05/13/24 History iron) tablet (FeroSul) calcium glucarate 500 mg capsule 1 tab-cap PO TID 04/21/24 05/13/24 History cyanocobalamin (vitamin B-12) 1,000 mcg IM QWEEK 04/21/24 05/13/24 History 1,000 mcg/mL injection solution levothyroxine 25 mcg tablet 12.5 mcg PO QDAY 04/21/24 05/13/24 History metformin 500 mg tablet 500 mg PO BID 04/21/24 05/13/24 History semaglutide 0.25 mg or 0.5 mg (2 2 mg subcut QWEEK 04/21/24 05/13/24 History mg/3 mL) subcutaneous pen injector (Ozempic) venlafaxine 75 mg tablet 112.5 mg PO BID 04/21/24 05/13/24 History zinc gluconate 50 mg tablet 50 mg PO QDAY 04/21/24 05/13/24 History apremilast 30 mg tablet (Otezla) 30 mg PO DAILY 05/05/24 05/13/24 History omeprazole 20 mg capsule,delayed 40 mg PO DAILY 05/05/24 05/13/24 History release ondansetron HCl 4 mg tablet 4 mg PO Q8H PRN 05/06/24 05/13/24 History Central Venous Access Central Venous Access: No Laboratory Results 05/06/24 11:53 WBC 6.3 Hgb 12.4 Hct 37.6 Plt Count 305 Absolute Neuts (auto) 3.7 Sodium 140 Potassium 4.3 Chloride 107 Carbon Dioxide 26.0 BUN 6 L Creatinine 0.78 Glucose 75 Calcium 9.6 Phosphorus 4.5 Magnesium 2.2 Iron 73 TIBC 380 Iron Saturation 19.2 Ferritin 21 Total Bilirubin 0.20 GGT 66 H AST 46 H ALT 89 H Alkaline Phosphatase 88 Lactate Dehydrogenase 211 C-React Prot Ext Range < 2.90 Total Protein 7.6 Albumin 4.1 Globulin 3.5 Exam Physical Exam Const alert, oriented x3 and no apparent distress Coding Level of Care Code Off vis,est,level 3 Exam Problem Focused Diagnoses Iron deficiency E61.1 H/O gastric bypass Z98.84 Assessment and Plan Assessment and Plan (1) Iron deficiency: Status: Resolved Comment: Iron profile and hemoglobin were normal on 05/06/2024 Plan: To continue doing oral iron supplements Can follow up with PCP and referred if new problems arise. (2) H/O gastric bypass: Status: Chronic Plan: To continue observation.Do supplements as needed. 05/13/24 170 Date (more content not included)... Normal [facility] L501.5101on 05-08-2024 GGTP 66 IU/L Abnormal 0-[address] [facility] Comment on above: Order Comment: ADD T O BLOOD IN LAB. THANK YOU!! Result Comment: Perf ormed at: CB - [facility] [address] [id number] Instrument Sterilizer: Robson Cedeno PhD, Phone: [phone] Performed By: #### L 501.0698 #### [facility] [address] [place] [address]. [place], [address] CBC W/Diff, Automatedon 04-12 Absolute Lymph 2.06 X10 3/uL Normal 0.83-4.[address] [facility] Comment on above: Performed By: #### L 500.4050, L100.0100, L501.6710, L503.6030, L501.5200, L501.2300, L101.9900, L503.6550, L503.0105, L504.2610, L506.0250, L100.9950 ####[facility] [address] [place], [address] Absolute Neut 3.7 X10 3/uL Normal 2.0-7.[address] [facility] Comment on above: Performed By: #### L 500.4050, L100.0100, L501.6710, L503.6030, L501.5200, L501.2300, L101.9900, L503.6550, L503.0105, L504.2610, L506.0250, L100.9950 ####[facility] [address] [place], [address] Basophils/100 WBC (Bld) 0.6 % Normal 0-[address] [facility] Comment on above: Performed By: #### L 500.4050, L100.0100, L501.6710, L503.6030, L501.5200, L501.2300, L101.9900, L503.6550, L503.0105, L504.2610, L506.0250, L100.9950 ####[facility] [address] [place], [address] Eosinophils/100 WBC (Bld) 1.1 % Normal 0-[address] [facility] Comment on above: Performed By: #### L 500.4050, L100.0100, L501.6710, L503.6030, L501.5200, L501.2300, L101.9900, L503.6550, L503.0105, L504.2610, L506.0250, L100.9950 ####[facility] [address] [place], [address] Erythrocyte distribution width (RBC) [Ratio] 12.4 % Normal 11.6-14.[address] [facility] Comment on above: Performed By: #### L 500.4050, L100.0100, L501.6710, L503.6030, L501.5200, L501.2300, L101.9900, L503.6550, L503.0105, L504.2610, L506.0250, L100.9950 ####[facility] [address] [place], [address] Hematocrit (Bld) [Volume fraction] 37.6 % Normal 37-[address] [facility] Comment on above: Performed By: #### L 500.4050, L100.0100, L501.6710, L503.6030, L501.5200, L501.2300, L101.9900, L503.6550, L503.0105, L504.2610, L506.0250, L100.9950 ####[facility] [address] [facility] [place], [address] Hemoglobin (Bld) [Mass/Vol] 12.4 g/dL Normal 12.0-15.[address] [facility] Comment on above: Performed By: #### L 500.4050, L100.0100, L501.6710, L503.6030, L501.5200, L501.2300, L101.9900, L503.6550, L503.0105, L504.2610, L506.0250, L100.9950 ####[facility] [address] [facility] [place], [address]([phone] IG% 0.200 Normal 0.0-0.[address] [facility] Comment on above: Result Comment: IG% - Immature Granulocytes (promyelocytes, myelocytes and metamyelocytes) > 1% indicates that a LEFT SHIFT is Present. Performed By: #### L 500.4050, L100.0100, L501.6710, L503.6030, L501.5200, L501.2300, L101.9900, L503.6550, L503.0105, L504.2610, L506.0250, L100.9950 ####[facility] [address] [facility] [place], [address] Lymphocytes/100 WBC (Bld) 32.6 % Normal 19-[address] [facility] Comment on above: Performed By: #### L 500.4050, L100.0100, L501.6710, L503.6030, L501.5200, L501.2300, L101.9900, L503.6550, L503.0105, L504.2610, L506.0250, L100.9950 ####[facility] [address] [place], [address] MCH (RBC) [Entitic mass] 30.7 pg Normal 27.0-32.[address] [facility] Comment on above: Performed By: #### L 500.4050, L100.0100, L501.6710, L503.6030, L501.5200, L501.2300, L101.9900, L503.6550, L503.0105, L504.2610, L506.0250, L100.9950 ####[facility] [address] [place], [address] MCHC (RBC) [Mass/Vol] 33.0 g/dL Normal 32-[address] [facility] Comment on above: Performed By: #### L 500.4050, L100.0100, L501.6710, L503.6030, L501.5200, L501.2300, L101.9900, L503.6550, L503.0105, L504.2610, L506.0250, L100.9950 ####[facility] [address] [place], [address] MCV (RBC) [Entitic vol] 93.1 fL Normal 81-[address] [facility] Comment on above: Performed By: #### L 500.4050, L100.0100, L501.6710, L503.6030, L501.5200, L501.2300, L101.9900, L503.6550, L503.0105, L504.2610, L506.0250, L100.9950 ####[facility] [address] [place], [phone]([phone] Monocytes/100 WBC (Bld) 7.3 % Normal 0-[address] [facility] Comment on above: Performed By: #### L 500.4050, L100.0100, L501.6710, L503.6030, L501.5200, L501.2300, L101.9900, L503.6550, L503.0105, L504.2610, L506.0250, L100.9950 ####[facility] [address] [place], [address]([phone] Neutrophils/100 WBC (Bld) 58.2 % Normal 47-[address] [facility] Comment on above: Performed By: #### L 500.4050, L100.0100, L501.6710, L503.6030, L501.5200, L501.2300, L101.9900, L503.6550, L503.0105, L504.2610, L506.0250, L100.9950 ####[facility] [address] [place], [address] Nucleated RBC (Bld) [#/Vol] 0 10*3/uL Normal 0-[address] [facility] Comment on above: Performed By: #### L 500.4050, L100.0100, L501.6710, L503.6030, L501.5200, L501.2300, L101.9900, L503.6550, L503.0105, L504.2610, L506.0250, L100.9950 ####[facility] [address] [place], [address] Platelet mean volume (Bld) [Entitic vol] 9.1 fL Normal 6.2-12.[address] [facility] Comment on above: Performed By: #### L 500.4050, L100.0100, L501.6710, L503.6030, L501.5200, L501.2300, L101.9900, L503.6550, L503.0105, L504.2610, L506.0250, L100.9950 ####[facility] [address] [place], [place], [phone](395) Platelets (Bld) [#/Vol] 305 10*3/uL Normal 150-[address] [facility] Comment on above: Performed By: #### L 500.4050, L100.0100, L501.6710, L503.6030, L501.5200, L501.2300, L101.9900, L503.6550, L503.0105, L504.2610, L506.0250, L100.9950 ####[facility] [address] [place], [place], [phone](486) RBC (Bld) [#/Vol] 4.04 10*6/uL Low 4.2-5.4 [facility] Comment on above: Performed By: #### L 500.4050, L100.0100, L501.6710, L503.6030, L501.5200, L501.2300, L101.9900, L503.6550, L503.0105, L504.2610, L506.0250, L100.9950 ####[facility] [address] [place], [place], [phone](398) RDW SD 42.5 fl Normal 35.1-43.[address] [facility] Comment on above: Performed By: #### L 500.4050, L100.0100, L501.6710, L503.6030, L501.5200, L501.2300, L101.9900, L503.6550, L503.0105, L504.2610, L506.0250, L100.9950 ####[facility] [address] [place], [place], [address] WBC (Bld) [#/Vol] 6.3 10*3/uL Normal 4.4-11.0 [facility] Comment on above: Performed By: #### L 500.4050, L100.0100, L501.6710, L503.6030, L501.5200, L501.2300, L101.9900, L503.6550, L503.0105, L504.2610, L506.0250, L100.9950 ####[facility] [address] [place], [place], [phone] CRPon 05-06-2024 C-REACTIVE PROT < 2.90 Normal 0.0-3.[address] [facility] Comment on above: Order Comment: UNKNO WN1N Result Comment: C-Re active Protein (CRP) provides useful information for the diagnosis, therapy and monitoring of inflammatory processes and associated diseases. For the evaluation of Relative Risk for Cardiovascular Disease, a High Sensitivity CRP (HSCRP) should be ordered. Performed By: #### L 500.4050, L100.0100, L501.6710, L503.6030, L501.5200, L501.2300, L101.9900, L503.6550, L503.0105, L504.2610, L506.0250, L100.9950 ####[facility] [address] [place], [address] Comprehensive Metabolic Prof ilon 05-06-2024 Albumin [Mass/Vol] 4.1 g/dL Normal 3.2-5.0 [facility] Comment on above: Order Comment: UNKNO WN1N Performed By: #### L 500.4050, L100.0100, L501.6710, L503.6030, L501.5200, L501.2300, L101.9900, L503.6550, L503.0105, L504.2610, L506.0250, L100.9950 ####[facility] [address] [place], [place], [phone] Albumin/Globulin [Mass ratio] 1.2 {ratio} Normal 0.9-2.[address] [facility] Comment on above: Order Comment: UNKNO WN1N Performed By: #### L 500.4050, L100.0100, L501.6710, L503.6030, L501.5200, L501.2300, L101.9900, L503.6550, L503.0105, L504.2610, L506.0250, L100.9950 ####[facility] [address] [place], [address] ALK P 88 U/L Normal 45-[address] [facility] Comment on above: Order Comment: UNKNO WN1N Performed By: #### L 500.4050, L100.0100, L501.6710, L503.6030, L501.5200, L501.2300, L101.9900, L503.6550, L503.0105, L504.2610, L506.0250, L100.9950 ####[facility] [address] [place], [address] ALT [Catalytic activity/Vol] 89 U/L High 13-[address] [facility] Comment on above: Order Comment: UNKNO WN1N Performed By: #### L 500.4050, L100.0100, L501.6710, L503.6030, L501.5200, L501.2300, L101.9900, L503.6550, L503.0105, L504.2610, L506.0250, L100.9950 ####[facility] [address] [place], [address] AST [Catalytic activity/Vol] 46 U/L High 15-[address] [facility] Comment on above: Order Comment: UNKNO WN1N Performed By: #### L 500.4050, L100.0100, L501.6710, L503.6030, L501.5200, L501.2300, L101.9900, L503.6550, L503.0105, L504.2610, L506.0250, L100.9950 ####[facility] [address] [place], [place], [phone] Bilirubin [Mass/Vol] 0.20 mg/dL Normal 0.20-1.00 [facility] Comment on above: Order Comment: UNKNO WN1N Result Comment: For patients on eltrombopag therapy, use of Dimension Kim TBIL is not recommended. Performed By: #### L 500.4050, L100.0100, L501.6710, L503.6030, L501.5200, L501.2300, L101.9900, L503.6550, L503.0105, L504.2610, L506.0250, L100.9950 ####[facility] [address] [place], [address] BUN/CRE 7.7 RATIO Low 10-[address] [facility] Comment on above: Order Comment: UNKNO WN1N Performed By: #### L 500.4050, L100.0100, L501.6710, L503.6030, L501.5200, L501.2300, L101.9900, L503.6550, L503.0105, L504.2610, L506.0250, L100.9950 ####[facility] [address] [place], [place], [phone] CA,Total 9.6 mg/dL Normal 8.5-10.[address] [facility] Comment on above: Order Comment: UNKNO WN1N Performed By: #### L 500.4050, L100.0100, L501.6710, L503.6030, L501.5200, L501.2300, L101.9900, L503.6550, L503.0105, L504.2610, L506.0250, L100.9950 ####[facility] [address] [place], [address] Chloride [Moles/Vol] 107 mmol/L Normal 98-107 [facility] Comment on above: Order Comment: UNKNO WN1N Performed By: #### L 500.4050, L100.0100, L501.6710, L503.6030, L501.5200, L501.2300, L101.9900, L503.6550, L503.0105, L504.2610, L506.0250, L100.9950 ####[facility] [address] [place], [address] CO2 [Moles/Vol] 26.0 mmol/L Normal 21.0-32.[address] [facility] Comment on above: Order Comment: UNKNO WN1N Performed By: #### L 500.4050, L100.0100, L501.6710, L503.6030, L501.5200, L501.2300, L101.9900, L503.6550, L503.0105, L504.2610, L506.0250, L100.9950 ####[facility] [address] [place], [place], [phone](825) Creatinine [Mass/Vol] 0.78 mg/dL Normal 0.55-1.[address] [facility] Comment on above: Order Comment: UNKNO WN1N Result Comment: The validity of the calculated GFR GFRAA in patients over 70 years has not been determined. Clinical correlation is essential. Performed By: #### L 500.4050, L100.0100, L501.6710, L503.6030, L501.5200, L501.2300, L101.9900, L503.6550, L503.0105, L504.2610, L506.0250, L100.9950 ####[facility] [address] [place], [address] EST GFR - AA 99 mL/min Normal >[address] [facility] Comment on above: Order Comment: UNKNO WN1N Result Comment: Afri can Bangladeshi GFR Calc Performed By: #### L 500.4050, L100.0100, L501.6710, L503.6030, L501.5200, L501.2300, L101.9900, L503.6550, L503.0105, L504.2610, L506.0250, L100.9950 ####[facility] [address] [place], [place], [phone] GAP 7 Normal 5-[address] [facility] Comment on above: Order Comment: UNKNO WN1N Performed By: #### L 500.4050, L100.0100, L501.6710, L503.6030, L501.5200, L501.2300, L101.9900, L503.6550, L503.0105, L504.2610, L506.0250, L100.9950 ####[facility] [address] [place], [place], [phone] GFR/1.73 sq M.predicted among non-blacks MDRD (S/P/Bld) [Vol rate/Area] 82 mL/min/{1.73_m2} Normal >[address] [facility] Comment on above: Order Comment: UNKNO WN1N Result Comment: Non- GFR Calc Performed By: #### L 500.4050, L100.0100, L501.6710, L503.6030, L501.5200, L501.2300, L101.9900, L503.6550, L503.0105, L504.2610, L506.0250, L100.9950 ####[facility] [address] [place], [place], [phone] Globulin (S) [Mass/Vol] 3.5 g/dL Normal 2.2-4.[address] [facility] Comment on above: Order Comment: UNKNO WN1N Performed By: #### L 500.4050, L100.0100, L501.6710, L503.6030, L501.5200, L501.2300, L101.9900, L503.6550, L503.0105, L504.2610, L506.0250, L100.9950 ####[facility] [address] [place], [place], [phone](380) Glucose [Mass/Vol] 75 mg/dL Normal 74-106 [facility] Comment on above: Order Comment: UNKNO WN1N Performed By: #### L 500.4050, L100.0100, L501.6710, L503.6030, L501.5200, L501.2300, L101.9900, L503.6550, L503.0105, L504.2610, L506.0250, L100.9950 ####[facility] [address] [place], [place], [phone](569) Potassium [Moles/Vol] 4.3 mmol/L Normal 3.5-5.[address] [facility] Comment on above: Order Comment: UNKNO WN1N Performed By: #### L 500.4050, L100.0100, L501.6710, L503.6030, L501.5200, L501.2300, L101.9900, L503.6550, L503.0105, L504.2610, L506.0250, L100.9950 ####[facility] [address] [place], [place], [phone](292) Sodium [Moles/Vol] 140 mmol/L Normal 136-145 [facility] Comment on above: Order Comment: UNKNO WN1N Performed By: #### L 500.4050, L100.0100, L501.6710, L503.6030, L501.5200, L501.2300, L101.9900, L503.6550, L503.0105, L504.2610, L506.0250, L100.9950 ####[facility] [address] [place], [place], [phone](386) T PROT 7.6 g/dL Normal 6.4-8.[address] [facility] Comment on above: Order Comment: UNKNO WN1N Performed By: #### L 500.4050, L100.0100, L501.6710, L503.6030, L501.5200, L501.2300, L101.9900, L503.6550, L503.0105, L504.2610, L506.0250, L100.9950 ####[facility] [address] [place], [place], [phone] Urea nitrogen [Mass/Vol] 6 mg/dL Low 7-[address] [facility] Comment on above: Order Comment: UNKNO WN1N Performed By: #### L 500.4050, L100.0100, L501.6710, L503.6030, L501.5200, L501.2300, L101.9900, L503.6550, L503.0105, L504.2610, L506.0250, L100.9950 ####[facility] [address] [place], [place], [phone] Erythrocyte Sed Rateon 05-06 SED RATE 8 mm/hr Normal 0-[address] [facility] Comment on above: Performed By: #### L 500.4050, L100.0100, L501.6710, L503.6030, L501.5200, L501.2300, L101.9900, L503.6550, L503.0105, L504.2610, L506.0250, L100.9950 ####[facility] [address] [place], [place], [phone] Ferritinon 05-06-2024 Ferritin [Mass/Vol] 21 ng/mL Normal 8-252 [facility] Comment on above: Order Comment: UNKNO WN1N Performed By: #### L 500.4050, L100.0100, L501.6710, L503.6030, L501.5200, L501.2300, L101.9900, L503.6550, L503.0105, L504.2610, L506.0250, L100.9950 ####[facility] [address] [place], [place], [phone] Folates, (Folic Acid)on 04-12 FOLATES 19.70 ng/mL Normal 3.1-55.[address] [facility] Comment on above: Order Comment: UNKNO WN1N Performed By: #### L 500.4050, L100.0100, L501.6710, L503.6030, L501.5200, L501.2300, L101.9900, L503.6550, L503.0105, L504.2610, L506.0250, L100.9950 ####[facility] [address] [place], [address] Iron+Iron Binding Capacityon 05-06-2024 Iron [Mass/Vol] 73 ug/dL Normal 50-[address] [facility] Comment on above: Order Comment: UNKNO WN1N Performed By: #### L 500.4050, L100.0100, L501.6710, L503.6030, L501.5200, L501.2300, L101.9900, L503.6550, L503.0105, L504.2610, L506.0250, L100.9950 ####[facility] [address] [place], [place], [phone] IRON SATURATION 19.2 Normal 15.0-55.[address] [facility] Comment on above: Order Comment: UNKNO WN1N Performed By: #### L 500.4050, L100.0100, L501.6710, L503.6030, L501.5200, L501.2300, L101.9900, L503.6550, L503.0105, L504.2610, L506.0250, L100.9950 ####[facility] [address] [place], [address] TIBC 380 ug/dL Normal 250-[address] [facility] Comment on above: Order Comment: UNKNO WN1N Performed By: #### L 500.4050, L100.0100, L501.6710, L503.6030, L501.5200, L501.2300, L101.9900, L503.6550, L503.0105, L504.2610, L506.0250, L100.9950 ####[facility] [address] [place], [address] LDHon 05-06-2024 LDH 211 U/L Normal 84-[address] [facility] Comment on above: Order Comment: UNKNO WN1N Performed By: #### L 500.4050, L100.0100, L501.6710, L503.6030, L501.5200, L501.2300, L101.9900, L503.6550, L503.0105, L504.2610, L506.0250, L100.9950 ####[facility] [address] [place], [address] Magnesiumon 05-06-2024 Magnesium [Mass/Vol] 2.2 mg/dL Normal 1.6-2.6 [facility] Comment on above: Order Comment: UNKNO WN1N Performed By: #### L 500.4050, L100.0100, L501.6710, L503.6030, L501.5200, L501.2300, L101.9900, L503.6550, L503.0105, L504.2610, L506.0250, L100.9950 ####[facility] [address] [place], [address] Oncology Visit Reporton 04-12 Oncology Visit Report [facility] [address] [place] [address] OFFICE VISIT Date of Service: 05/06/24 1045 MR#: [id number] Acct: [id number] Name: AMANDA GRUBBS Rep #: [id number] : 1970 From: Santiago Og MD Age/Sex: 53/F Location: [facility] Status: Signed HPI Subjective Date of Service 05/06/24 Chief Complaint Referred for anemia. History of Present Illness 53y.o.woman with history of Gastric bypass in 2018 was found to have Iron deficiency anemia, started on oral Iron but has not improved so referred for further evaluation. Denies weight loss, fever, gets night sweats. [facility] Medical History Anginal pain Somatic dysfunction of lower extremity Psoriatic arthritis Prediabetes Family history of ischemic heart disease Anxiety Secondary insomnia Iron deficiency B12 deficiency Major depression in remission Hypothyroid Anemia Acute pharyngitis, unspecified Aphthous ulcer of mouth delivery delivered Surgical History History of endometrial ablation History of colonoscopy H/O: hysterectomy Hx of cholecystectomy H/O tubal ligation History of weight loss surgery Family History Unknown Heart disease Cancer Kidney disease Breast cancer Lung cancer CHF (congestive heart failure) Father Myocardial infarction Brother Myocardial infarction Social History Smoking Status: Never smoker alcohol intake: current substance use type: does not use caffeine: Yes ROS Constitutional Constitutional: Reports systems reviewed and no addt'l complaints, except as documented Eyes Eyes: Reports systems reviewed and no addt'l complaints, except as documented ENT HEENT: Reports systems reviewed and no addt'l complaints, except as documented Cardiovascular Cardiovascular: Reports systems reviewed and no addt'l complaints, except as documented Respiratory/Chest Respiratory/Chest: Reports systems reviewed and no addt'l complaints, except as documented Gastrointestinal Gastrointestinal: Reports systems reviewed and no addt'l complaints, except as documented Genitourinary Genitourinary: Reports systems reviewed and no addt'l complaints, except as documented Musculoskeletal Musculoskeletal: Reports systems reviewed and no addt'l complaints, except as documented Integumentary Integumentary: Reports systems reviewed and no addt'l complaints, except as documented Neurologic Neurologic: Reports systems reviewed and no addt'l complaints, except as documented Psychiatric Psychiatric: Reports systems reviewed and no addt'l complaints, except as documented Endocrine Endocrinology: Reports systems reviewed and no addt'l complaints, except as documented Hematologic/Lymphatic Hematologic/Lymphatic: Reports systems reviewed and no addt'l complaints, except as documented Allergic/Immunologic Allergic/Immunologic: Reports systems reviewed and no addt'l complaints, except as documented Intake Vital Signs 12/12/23 14:29 05/05/24 11:34 05/06/24 10:48 05/06/24 10:55 Height 5 ft 3 in 5 ft 3 in 5 ft 3 in 5 ft 3 in Weight: 76.204 kg 76.204 kg BMI 29.7 29.7 BP 131/87 H Blood Pressure Location Lt brachial Position Sitting Respiration 18 Pulse 87 Pulse Source Monitor Temp 97.0 F L Temperature Source Temporal Artery Pulse Oximetry (%) 98 Oxygen Delivery Method room air Intake Is patient in pain?: No Allergies No Known Allergies Allergy (Verified 05/06/24 10:50) Medications ???Medication ???Instructions ???Recorded ???Confirmed ???Type ybcmaddaqv-bitmpgscekijw-fu ffeine 1 cap PO Q8H PRN 01/16/23 05/06/24 History 50 mg-300 mg-40 mg capsule (Fioricet) cholecalciferol (vitamin D3) 10 10 mcg PO DAILY 01/16/23 05/06/24 History mcg (400 unit) capsule lorazepam 0.5 mg tablet (Ativan) 0.5 mg PO DAILY PRN 01/16/23 05/06/24 History biotin 10 mg tablet 10 mg PO QDAY 04/15/24 05/06/24 History ferrous sulfate 325 mg (65 mg 325 mg PO BID 04/15/24 05/06/24 History iron) tablet (FeroSul) calcium glucarate 500 mg capsule 1 tab-cap PO TID 04/21/24 05/06/24 History cyanocobalamin (vitamin B-12) 1,000 mcg IM QWEEK 04/21/24 05/06/24 History 1,000 mcg/mL injection solution levothyroxine 25 mcg tablet 12.5 mcg PO QDAY 04/21/24 05/06/24 History metformin 500 mg tablet 500 mg PO BID 04/21/24 05/06/24 History semaglutide 0.25 mg or 0.5 mg (2 2 mg subcut QWEEK 04/21/24 05/06/24 History mg/3 mL) subcutaneous pen injector (Ozempic) venlafaxine 75 mg tablet 112.5 mg PO BID 04/21/24 05/06/24 History zinc gluconate 50 mg tablet 50 mg PO QDAY 04/21/24 05/06/24 His (more content not included)... Normal [facility] Phosphoruson 05-06-2024 Phosphate [Mass/Vol] 4.5 mg/dL Normal 2.5-4.9 [facility] Comment on above: Order Comment: ANNIKA WN1N Performed By: #### L 500.4050, L100.0100, L501.6710, L503.6030, L501.5200, L501.2300, L101.9900, L503.6550, L503.0105, L504.2610, L506.0250, L100.9950 ####[facility] [address] [place], [place], [phone] Retic Panelon 05-06-2024 IM RET FRACTION 14.20 Normal 3.00-15.[address] [facility] Comment on above: Performed By: #### L 500.4050, L100.0100, L501.6710, L503.6030, L501.5200, L501.2300, L101.9900, L503.6550, L503.0105, L504.2610, L506.0250, L100.9950 ####[facility] [address] [place], [place], [phone] RET-HE 34.6 pg Normal 30-[address] [facility] Comment on above: Performed By: #### L 500.4050, L100.0100, L501.6710, L503.6030, L501.5200, L501.2300, L101.9900, L503.6550, L503.0105, L504.2610, L506.0250, L100.9950 ####[facility] [address] [place], [address] Retic Count 1.33 Normal 0.5-1.[address] [facility] Comment on above: Performed By: #### L 500.4050, L100.0100, L501.6710, L503.6030, L501.5200, L501.2300, L101.9900, L503.6550, L503.0105, L504.2610, L506.0250, L100.9950 ####[facility] [address] [place], [address] Vitamin B12on 05-06-2024 Cobalamin (Vitamin B12) [Mass/Vol] 720 pg/mL Normal 211-[address] [facility] Comment on above: Performed By: #### L 500.4050, L100.0100, L501.6710, L503.6030, L501.5200, L501.2300, L101.9900, L503.6550, L503.0105, L504.2610, L506.0250, L100.9950 ####[facility] [address] [place], [place], [address] 12 Lead EKG performed by [facility] on 05-05-2024 12 Lead EKG performed by [facility] [address] [place] [address] 12 Lead EKG performed by [facility] 05/05/24 0820 MR#: [id number] Acct: [id number] Name: AMANDA GRUBBS Rep #: [id number] : 1970 53 From: Franky Hollingsworth MD Attending Dr: Dr. Franky Hollingsworth MD Status: DE P DANIELLE Ordering Dr: Franky Hollingsworth MD Date: 05/05/24 Location: [facility] [place] Sex: F C Admitted: [facility]/12 Lead EKG performed by [facility] ECG Report Interpretation S inus Rhythm WITHIN NORMAL LIMITSElectronically signed on 05/05/2024 at 12:[address] Franky Hollingsworth [employer] Version [id number] 05/05/24 1217 Date Franky Hollingsworth MD CC: Dr. Franky Pearson, Date Dictated: 05/05/24819 Date Transcribed: 05/05/24819 [employer]: Signed Normal [facility] Cardiology Visit Reporton Cardiology Visit Report [facility] [address] [place] [address] OFFICE VISIT Date of Service: 05/05/24 MR#: [id number] Acct: [id number] Name: AMANDA GRUBBS Rep #: [id number] : 1970 Provider: Dr. Franky clark MD Age/Sex: 53/F Location: [facility] Status: Signed HPI HPI History of Present Illness Details: The patient is a 53-year-old white female that comes in today with her for new patient visit. Patient is complaining of some chest discomfort that starts in the left side of her chest radiates up into her left shoulder down her left arm and across the back of her shoulder blade. This has been going on for 1 to 2 years. It occurs episodically. She cannot predict that it occurs both with rest and with activity. She denies any syncope or near syncope she has had occasionally noted sweating episodes that she thought may be something to do with menopause. The patient is status post hysterectomy 10 years ago but they did leave 1 ovary. The patient underwent calcium scoring which was 0 in January 2024. She had an echocardiogram done in February 2024 which showed normal LV function with an EF of 55% structurally normal valves. She had a regular treadmill stress test in September 2022 which showed no evidence of exercise-induced ischemia there was average exercise capacity good chronotropic response and good blood pressure response and good heart rate recovery. Her Tripathi treadmill score was 7 which represents a low risk. EKG done in the office today shows sinus rhythm at 82 bpm and is within normal limits. The patient has a strong family history of coronary artery disease. She is status post gastric bypass surgery. Prior to that she was hypertensive and borderline diabetic. Since her gastric bypass surgery and weight loss her blood pressure is well-controlled with no medications she denies any hyperlipidemia she has never smoked. She is on metformin. The patient was recently started on rosuvastatin and is noted significant nausea and side effects. Her lipids June 2023 total cholesterol was 176 HDL 76 LDL 88 and triglycerides 58. The patient is on levothyroxine and Ozempic. The patient denies any syncope or near syncope. She does note a 15 pound weight gain recently. There is some question of dietary indiscretion per her . Intake Vital Signs 12/12/23 14:29 05/05/24 11:34 Height 5 ft 3 in 5 ft 3 in Weight: 168 lb BMI 29.7 BP 123/87 H Blood Pressure Location Lt brachial Position Sitting Respiration 18 Pulse 91 Pulse Source Monitor Pulse Oximetry (%) 97 Oxygen Delivery Method room air Intake Visit Reasons: FAMILY HX OF [place] (LILI) Supervisor Line Department Required: No Accompanied by: Is patient in pain?: No Allergies No Known Allergies Allergy (Verified 05/05/24 11:34) Medications ???Medication ???Instructions ???Recorded ???Confirmed ???Type makvcanyca-flxzcxvawfdcy-xk ffeine 1 cap PO Q8H PRN 01/16/23 05/05/24 History 50 mg-300 mg-40 mg capsule (Fioricet) cholecalciferol (vitamin D3) 10 10 mcg PO DAILY 01/16/23 05/05/24 History mcg (400 unit) capsule lorazepam 0.5 mg tablet (Ativan) 0.5 mg PO DAILY PRN 01/16/23 05/05/24 History biotin 10 mg tablet 10 mg PO QDAY 04/15/24 05/05/24 History ferrous sulfate 325 mg (65 mg 325 mg PO BID 04/15/24 05/05/24 History iron) tablet (FeroSul) ondansetron HCl 4 mg tablet 4 mg PO Q8H 04/15/24 05/05/24 History calcium glucarate 500 mg capsule 1 tab-cap PO TID 04/21/24 05/05/24 History cyanocobalamin (vitamin B-12) 1,000 mcg IM QWEEK 04/21/24 05/05/24 History 1,000 mcg/mL injection solution levothyroxine 25 mcg tablet 12.5 mcg PO QDAY 04/21/24 05/05/24 History metformin 500 mg tablet 500 mg PO BID 04/21/24 05/05/24 History semaglutide 0.25 mg or 0.5 mg (2 2 mg subcut QWEEK 04/21/24 05/05/24 History mg/3 mL) subcutaneous pen injector (Ozempic) venlafaxine 75 mg tablet 112.5 mg PO BID 04/21/24 05/05/24 History zinc gluconate 50 mg tablet 50 mg PO QDAY 04/21/24 05/05/24 History apremilast 30 mg tablet (Otezla) 30 mg PO DAILY 05/05/24 05/05/24 History omeprazole 20 mg capsule,delayed 40 mg PO DAILY 05/05/24 05/05/24 History release Have you fallen in the past year?: Yes PFSH Medical History Anginal pain Somatic dysfunction of lower extremity Psoriatic arthritis Prediabetes Family history of ischemic heart disease Anxiety Secondary insomnia Iron deficiency B12 deficiency Major depression in remission Hypothyroid Anemia Acute pharyngitis, unspecified Aphthous ulcer of mouth delivery delivered Surgical History History of endometrial ablation History of colonoscopy H (more content not included)... Normal [facility] Office Visit Reporton 2023 Office Visit Report [facility] [address] [place] [address] OFFICE VISIT Date of Service: 04/17/24 MR#: [id number] Acct: [id number] Patient: AMANDA GRUBBS Rep #: [id number] : 1970 Provider: BLU Clinton Age/Sex: 53/F Location: [facility] Status: Signed Employer Purchased Covid Test Note: Patient here today for Covid Testing, requested by their Employer. Assessment and Plan Plan Details Goals Barriers: Goals Decrease pain Decrease spasm Decrease HAs 04/17/24 1623 Date Hans Barney Signature: Date (if applicable) CC: Normal [facility] Office Visit Report [facility] [address] [place] [address] OFFICE VISIT Date of Service: 04/17/24 MR#: [id number] Acct: [id number] Patient: AMANDA GRUBBS Rep #: [id number] : 1970 Provider: BLU Clinton Age/Sex: 53/F Location: [facility] Status: Signed Employer Purchased Covid Test Note: Patient here today for Covid Testing, requested by their Employer. Assessment and Plan Assessment and Plan Orders: Orders POC Cepheid Covid, FluAB, RSV Today Medications: New amoxicillin-pot clavulanate 875-125 mg 1 TAB PO Q12H 20 tabs 0RF 10 days J01.90 - Acute sinusitis, unspecified Plan Details Goals Barriers: Goals Decrease pain Decrease spasm Decrease HAs 04/17/24 1454 Date Hans Barney Signature: Date (if applicable) CC: Normal [facility] Urgent Care Visit Reporton 06-17-2023 Urgent Care Visit Report [facility] [address], [address] [place] [address] OFFICE VISIT Date of Service: 04/17/24 MR#: [id number] Acct: [id number] Name: AMANDA GRUBBS Rep #: [id number] : 1970 Provider: BLU Clinton Age/Sex: 53/F Location: [facility] Status: Signed Intake Vital Signs 12/12/23 14:29 04/17/24 13:37 Height 5 ft 3 in BP 122/84 H Blood Pressure Location Lt brachial Position Sitting Respiration 15 Pulse 81 Pulse Source NIBP Temp 98.2 F Temp Source Oral Pulse Oximetry (%) 98 Oxygen Delivery Method room air Intake Visit Reasons: FEVER, FATIGUE, SORE THROAT Chief Complaint: fever, fatigue, PND, BA , [place] Supervisor Line Department Required: No Is patient in pain?: Yes Allergies No Known Allergies Allergy (Verified 04/17/24 13:38) Is last menstrual period known: No Post menopausal: No Patient : No Have you fallen in the past year?: No Nurse's Note: fever, fatigue, PND, BA , [place] x 4 days without resolve. PFSH Medical History (Updated 04/15/24 @ 10:56 by Criselda Muñoz) Somatic dysfunction of lower extremity Psoriatic arthritis Prediabetes Family history of ischemic heart disease Anxiety Secondary insomnia Iron deficiency B12 deficiency Major depression in remission Hypothyroid Anemia Acute pharyngitis, unspecified Aphthous ulcer of mouth delivery delivered Surgical History H/O: hysterectomy Hx of cholecystectomy H/O tubal ligation History of weight loss surgery Family History (Updated 04/15/24 @ 10:51 by Criselda Muñoz) Unknown Heart disease Cancer Kidney disease Breast cancer Lung cancer CHF (congestive heart failure) Father Myocardial infarction Brother Myocardial infarction HPI HPI Chief Complaint: fever, fatigue, PND, BA , [place] Details: AMANDA GRUBBS, is a 53 F who presents to the office today for complaint of fever, fatigue, postnasal drainage and bodyaches as well as headache for the past 4 days. Patient denies hemoptysis, short ness of breath or difficulty breathing. No nausea, vomiting, diarrhea. She does state having a fever as recently as yesterday however has had none since. No other associated symptoms or alleviating/aggravating factors. ROS Const Constitutional: No other (As above) Exam Const General: cooperative and healthy appearing HENOH Head: normal to inspection Ears: hearing grossly normal bilaterally, TM's normal bilaterally and EAC's normal Nose: nasal discharge purulent Face and sinus: sinus tenderness frontal and maxillary Mouth: oral mucosae normal Throat: abnormal tonsil bilaterally erythema and hypertrophy 1+ and postnasal drainage Resp Effort Inspection: normal respiratory effort Auscultation: Bilateral: Clear to Auscultation Cardio Palpation: normal PMI Rate: regular rate Rhythm: regular rhythm Neuro General: patient alert and CN's II-XI intact bilaterally Psych Appearance: grossly normal Mental Status: mental status grossly normal Results POC CEPH COV,FluAB,RSV PCR CEPHEID COVID PCR Not DETECTED Last Edit by Jaja Montero on 04/17/24 14:14 CEPHEID FLU AB PCR NOT DETECTED FLU A B Last Edit by Jaja Montero on 04/17/24 14:14 CEPHEID RSV PCR NOT DETECTED Last Edit by Jaja Montero on 04/17/24 14:14 Coding Level of Care Code Off vis,est,level 3 Diagnoses Acute non-recurrent maxillary sinusitis J01.00 Chronicity: acute Recurrence: non-recurrent Assessment and Plan Assessment and Plan (1) Maxillary sinusitis: Status: Acute Qualifiers: Chronicity: acute Recurrence: non-recurrent Qualified Code(s): J01.00 - Acute maxillary sinusitis, unspecified Orders: Orders POC Cepheid Covid, FluAB, RSV Today Medications: New amoxicillin-pot clavulanate 875-125 mg 1 TAB PO Q12H 10 days 20 tabs 0RF J01.90 - Acute sinusitis, unspecified Plan Patient tested negative for COVID, influenza and RSV in the office today. Augmentin as prescribed today. Encouraged to get plenty of rest, drink lots of clear liquids, and use Tylenol or Ibuprofen (unless contraindicated) for fever and comfort. Patient also educated on other symptomatic management techniques. To be seen in 7-10 days if no improvement; sooner if worsening of symptoms. Patient advised of potential red flags and when appropriate to report to the ED. Patient verbalized understanding and agreement with all the above. Plan Details Goals Barriers: Goals Decrease pain Decrease spasm Decrease HAs Clinical Quality Measures Falls Risk Screening/Assistive Devices Have you fallen in the past year?: No 04/17/24 1456 Date Hans Barney Signature: Date (more content not included)... Normal [facility] L5000.0012on 03-29-2024 Vitamin B12 Normal [facility] Comment on above: Result Comment: TEST RESULTS LIMITS Vitamin B12 261 pg/mL 232-1245 TESTING PERFORMED AT [facility]. ORIGINAL REPORT ON FILE IN LAB CONTAINS ADDITIONAL TEST SITE INFORMATION. Performed By: #### L 5000.0012, L503.6550, L506.0400, L501.9520 ####[facility] [address] [place], [address] Ferritinon 03-26-2024 Ferritin [Mass/Vol] 19 ng/mL Normal 8-252 [facility] Comment on above: Performed By: #### L 5000.0012, L503.6550, L506.0400, L501.9520 #### [facility] [address] [place], [address] T4 Free Directon 03-26-2024 T4 FREE DIRECT 0.70 ng/dL Low 0.76-1.[address] [facility] Comment on above: Performed By: #### L 5000.0012, L503.6550, L506.0400, L501.9520 ####[facility] [address] [place], [address] Thyroid Stim Hormone (TSH)on 03-26-2024 TSH 1.370 uIU/mL Normal 0.358-3.[address] [facility] Comment on above: Performed By: #### L 5000.0012, L503.6550, L506.0400, L501.9520 #### [facility] [address] [place], [address] Echo Completeon 02-15-2024 Echo Complete [facility] [address] [place] [address] Echo Complete 02/15/24 0823 MR#: [id number] Acct: [id number] Name: AMANDA GRUBBS Rep #: [id number] : 1970 53 From: Allan Coleman MD Attending Dr: Dr. Franky Pearson, Status: REG CLI Ordering Dr: Franky Pearson DO Date: 02/15/24 Location: [facility] Sex: F C Admitted: Reason For Study: FAM HX Procedure This was a 2D Doppler, Color Flow transthoracic echocardiogram. Exam performed in department. Left Ventricle Normal LV size. The left ventricular ejection fraction is 55 %. No regional wall motion abnormalities noted. Right Ventricle Normal RV size. Normal systolic function. Atria Normal left atrium. Normal right atrium. Mitral Valve Normal mitral valve. Tricuspid Valve Normal tricuspid valve. Aortic Valve Normal aortic valve. Pulmonic Valve Normal pulmonic valve. Great Vessels Normal aortic root. The pulmonary artery is normal size. Inferior vena cava collapse with respiration. Pericardium/Pleural No pericardial effusion. MMode/2D Measurements Calculations LVIDd: 4.1 cm IVSd: 1.00 cm LAV(MOD-bp): 48.2 ml LVIDs: 3.7 cm LVPWd: 0.85 cm LAV(MOD-bp) Indexed: 27.8 ml/m2 RVDd: 2.9 cm FS: 10.7 % LAV(MOD-sp2): 57.8 ml LAV(MOD-sp4): 36.5 ml SV(MOD-sp4): 32.6 ml SV(sp4-el): 33.1 ml LVAd ap4: 25.7 cm2 LVLd ap4: 8.4 cm EDV(MOD-sp4): 66.1 ml EDV(sp4-el): 67.0 ml LVAs ap4: 16.7 cm2 LVLs ap4: 7.0 cm ESV(MOD-sp4): 33.5 ml ESV(sp4-el): 33.9 ml EF(MOD-sp4): 49.3 % EF(sp4-el): 49.4 % LA A4 area: 13.8 cm2 LA dimension(2D): 3.2 cm RA A4 area: 13.6 cm2 TAPSE: 2.2 cm Time Measurements MV dec time: 0.19 sec Doppler Measurements Calculations MV E max filipe: 75.7 cm/sec Lat Peak E' Filipe: 13.6 cm/sec Med Peak E' Filipe: 6.2 cm/sec MV A max filipe: 70.8 cm/sec E/E' lat: 5.6 E/E' med: 12.2 MV E/A: 1.1 MV V2 max: 83.8 cm/sec Ao V2 max: 134.1 cm/sec MV max P.8 mmHg MV dec slope: 410.5 cm/sec2 Ao max P.2 mmHg MV V2 mean: 58.8 cm/sec Ao V2 mean: 90.3 cm/sec MV mean P.5 mmHg Ao mean P.7 mmHg MV V2 VTI: 25.5 cm Ao V2 VTI: 28.1 cm AV (velocity ratio): 0.82 LV V1 max: 106.9 cm/sec PA V2 max: 96.5 cm/sec LV V1 max P.6 mmHg PA V2 mean: 69.6 cm/sec LV V1 mean P.7 mmHg LV V1 mean: 76.0 cm/sec LV V1 VTI: 23.0 cm ECHO/Echo Complete Interpretation Summary Normal LV size. The left ventricular ejection fraction is 55 %. Structurally normal valves. The global longitudinal strain is normal. The global longitudinal strain = -17.5 % (normal). Ordering Physician: Franky Pearson Referring Physician: Franky Pearson Performed By: Ana Esparza RCS 02/15/24 1458 Date Allan Coleman MD CC: Dr. 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 Urine Cultureon 01-30-2024 URC Below infection michelle johnson. Presumptive E. coli Winkelman Count 1000-10,[address] [facility] Comment on above: Performed By: #### M 100.2200 ####[facility] [id number] [place], [address] Urgent Care Visit Reporton 0 01-28-2024 Urgent Care Visit Report [facility] [address], [address] [place], [place] [address] OFFICE VISIT Date of Service: 01/28/24 MR#: [id number] Acct: [id number] Name: AMANDA GRUBBS Rep #: [id number] : 1970 Provider: BLU Marshall Age/Sex: 53/F Location: [facility] Status: Signed Intake Vital Signs 12/12/23 14:29 01/28/24 12:26 Height 5 ft 3 in Weight: 152 lb BMI 26.9 BP 118/78 122/82 H Blood Pressure Location Lt brachial Lt brachial Position Sitting Sitting Respiration 16 16 Pulse 95 94 Pulse Source Monitor NIBP Temp 97.8 F 98.0 F Temp Source Temporal Temporal Pulse Oximetry (%) 98 98 Oxygen Delivery Method room air room air Intake Visit Reasons: CONCERN FOR UTI Chief Complaint: dysuria, pubic pain, back pain Supervisor Line Department Required: No Is patient in pain?: No Allergies No Known Allergies Allergy (Verified 01/28/24 12:27) Medications ???Medication ???Instructions ???Recorded ???Confirmed ???Type bupropion HCl 100 mg tablet,12 hr 100 mg PO DAILY 01/16/23 12/12/23 History sustained-release (Wellbutrin SR) ujchlihzzv-oqdocuywywnwm-ea ffeine 1 cap PO Q8H PRN 01/16/23 12/12/23 History 50 mg-300 mg-40 mg capsule (Fioricet) cholecalciferol (vitamin D3) 10 10 mcg PO DAILY 01/16/23 12/12/23 History mcg (400 unit) capsule conjugated estrogens 0.3 mg tablet 0.3 mg PO DAILY 01/16/23 12/12/23 History lorazepam 0.5 mg tablet (Ativan) 0.5 mg PO DAILY PRN 01/16/23 12/12/23 History metformin 500 mg tablet 500 mg PO DAILY 01/16/23 12/12/23 History omeprazole 20 mg capsule,delayed 20 mg PO DAILY 01/16/23 12/12/23 History release semaglutide 0.25 mg or 0.5 mg (2 0.25 mg subcut QWEEK 01/16/23 12/12/23 History mg/3 mL) subcutaneous pen injector (Ozempic) vitamin B complex (B 1 tab PO DAILY 01/16/23 12/12/23 History Complex-Vitamin B12 tablet) fluconazole 150 mg tablet 150 mg PO Q3D 2 doses #2 tabs 05/13/23 12/12/23 Rx fluconazole 200 mg tablet 200 mg PO DAILY #1 TAB 11/27/23 12/12/23 Rx nitrofurantoin 100 mg PO Q12H 7 days #14 caps 01/28/24 01/28/24 Rx monohydrate/macrocrystals 100 mg capsule (Macrobid) phenazopyridine 100 mg tablet 100 mg PO TID PRN pain 6 doses #6 01/28/24 01/28/24 Rx tabs Is last menstrual period known: No Post menopausal: Yes Patient : No Have you fallen in the past year?: No Nurse's Note: dysuria, pubic pain, back pain x 3 days. denies fever. concern for UTI PFSH Medical History Acute pharyngitis, unspecified Aphthous ulcer of mouth delivery delivered Surgical History H/O: hysterectomy Hx of cholecystectomy H/O tubal ligation History of weight loss surgery Family History Unknown Heart disease Cancer Kidney disease Breast cancer Lung cancer CHF (congestive heart failure) HPI HPI Chief Complaint: dysuria, pubic pain, back pain Details: AMANDA GRUBBS, is a 53 F who presents to the office today for initial evaluation at the [facility] for, several days history of dysuria and urinary frequency with suprapubic pressure along with mild aching right LBP. No complaints of fever, chills, sweats, lightheadedness/dizziness, nausea/vomiting, or chest pain/shortness of breath/dyspnea on exertion. No changes in color/ character of stool - though admits urine darker and foul smelling as she describes; no urethral/ vaginal discharge. Previously treated for similar approximately 2 months ago which resolved with Macrobid then. No tqck-rbj-vtymmcf products taken to assist. No other associated symptoms and no alleviating/aggravating factors. ROS Const Constitutional: No other (As above) Exam Const General: cooperative, healthy appearing and no acute distress Orientation: alert, awake and oriented x3 Chest Chest palpation inspection: normal inspection of the chest Resp Effort Inspection: normal respiratory effort and able to speak in complete sentences Auscultation: Bilateral: Clear to Auscultation Cardio Palpation: normal PMI Rate: regular rate Rhythm: regular rhythm Heart Sounds: S1 normal, S2 normal, no gallops, no murmurs and no rubs Pulses: radial pulses present GI Inspection: normal to inspection Palpation: soft and tender suprapubic (Patient describes upon self-palpation) General: No CVA tenderness Skin General: no rashes or lesions noted Neuro General: patient alert, patient awake and patient oriented x3 Cognition: normal cognition Speech: speech normal Psych Appearance: grossly normal Mental Status: mental status grossly normal Mood: congruent mood Affect: normal affect Speech and Movement: speech and movement normal Att (more content not included)... Normal [facility] Coronary Angiography CTon Coronary Angiography CT [facility] Services [address] [place] [address] 01/18/24 0855 MR#: [id number] Acct: [id number] Name: AMANDA GRUBBS Rep #: [id number] : 1970 53 From: Allan Coleman MD PCP: Dr. Franky Pearson, DO Status:REG CLI Y Location: CT Calcium Scoring Date of Study:: 01/18/24 Indications Indications: Family history of cardiac disease Coronary Calcium Scoring: High-resolution Computed Tomographic imaging of the chest was performed on [01/18/2024], with particular attention paid to the coronary arteries. Images from the examination were analyzed for the presence and extent of coronary artery calcification , using coronary calcium quantification software. The patient tolerated the procedure well and there were no complications. The results of the coronary calcification analysis are provided below. Findings Coronary Artery Left Main (LM): 0 Left Anterior Descending (LAD): 0 Left Circumflex (LCX): 0 Right Coronary Artery (RCA): 0 Total Agatston Score: 0 Percentile Rankin Calcium Scoring Interpretation: Different methods to categorize the overall amount of coronary plaque. Overall amount CAC SIS Visual of coronary plaque P1 Mild -100 <2 1-2 vessels with mild amount of plaque P2 Moderate 101-300 3-4 1-2 vessels with moderate amount, 3 vessels with mild amount of plaque P3 Severe 301-999 5-7 3 vessels with moderate amount, 1 vessel with severe amount of plaque P4 Extensive >1000 >8 2-3 vessels with severe amount of plaque Conclusion: No atherosclerotic plaquing noted. 01/18/24 0855 Date [facility] Coleman [facility] Signature (if applicable): Date CC: Dr. Allan Coleman MD; Dr. Franky Pearson DO Signed Normal [facility] Limited Chest CT Cardiac Onl yon 01-18-[address] Cardiac Only [facility] [address] [place] [address] Cardiac Only MR#: [id number] Acct: [id number] Name: AMANDA GRUBBS Rep #: [id number] : 1970 F 53 From: Kervin marvin MD PCP: Dr. Franky Pearson DO Status: [facility] Study: Limited Chest CT Cardiac Only Date of Exam: Exam# [id number] Ordering Dr: Franky Pearson DO [id number] STUDY: CT CHEST WITHOUT CONTRAST REASON FOR EXAM: Female, 53 years old. FAMILY HISTORY F coronary disease. RADIATION DOSAGE (If Supplied By Facility): CTDIvol = ( 12.19 ) mGy, DLP = ( 195.04 ) mGycm TECHNIQUE: Transaxial imaging was performed without the administration of intravenous contrast material. Cardiac over read examination. Individualized dose optimization techniques were used for this CT. COMPARISON: Comparison is made with prior study dated July 26, 2023. FINDINGS: CHEST Stable 4.4 mm noncalcified nodule in the medial aspect of the right upper lobe as seen on axial image #17. There is no demonstrated pleural abnormality. Mild anterior pericardial thickening. No coronary artery calcification is seen. Normal mediastinum. Calcified bilateral hilar lymph nodes. Normal unenhanced pulmonary arteries. Normal aorta arch and descending thoracic aorta. There are degenerative changes of the thoracic spine. Evidence of prior subtotal gastrectomy for gastric bypass surgery. CT/Limited Chest CT Cardiac Only IMPRESSION: Stable 4.4 mm noncalcified nodule medial aspect of the right upper lobe. Minimal anterior pericardial thickening. No significant coronary artery calcification is seen. Electronically Signed: Kervin Naqvi MD at 9:14 EDT , CC: Dr. Franky Pearson DO Heavy Equipment Rental Manager: Signed Normal [facility] Laboratory - Chemistry and C hemistry - challengeOrdered By: Franky Pearson on 09-12-2023 Cobalamin (Vitamin B12) [Mass/Vol] 364 pg/mL 211-[address] [facility] Ferritin [Mass/Vol] 26 ng/mL 8-252 [facility] Serum or plasma thiamine kayla surement (mass/volume)Ordered By: Franky Pearson on 09-12-2023 Thiamine [Mass/Vol] 72.8 nmol/L 66.5-200.0 [facility] Comment on above: Performed at: [address] [id number] Director: James Herrera MD, Phone: [phone] Basophil percentageOrdered B y: Franky Pearson on 06-22-2023 Bilirubin [Mass/Vol] 0.40 mg/dL 0.20-1.00 [facility] Comment on above: For patients on eltr ombopag therapy, use of Dimension Kim TBIL is not recommended. Chloride [Moles/Vol] 108 mmol/L 98-107 [facility] Cholesterol [Mass/Vol] 176 mg/dL <[address] [facility] Comment on above: <200 mg/dL Desirable 200-240 mg/dL Borderline >240 mg/dL High Risk Glucose [Mass/Vol] 82 mg/dL 74-106 [facility] Potassium [Moles/Vol] 4.5 mmol/L 3.5-5.[address] [facility] Protein [Mass/Vol] 7.6 g/dL 6.4-8.2 [facility] Sodium [Moles/Vol] 141 mmol/L 136-145 [facility] Triglyceride [Mass/Vol] 58 mg/dL <[address] [facility] Comment on above: The drugs N-Acetylcy steine and Metamizole may falsely depress this assay.Serum Triglycerides Reference Interval Normal <150 mg/dL Borderline high 150 - 199 mg/dL High 200 - 499 mg/dL Very High > or = 500 mg/dL WBC (Bld) [#/Vol] 5.4 10*3/uL 4.4-11.0 [facility] Blood erythrocytes count (nu mber/volume)Ordered By: Franky Pearson on 06-22-2023 RBC (Bld) [#/Vol] 4.25 10*6/uL 4.2-5.4 [facility] Blood hemoglobin measurement (mass/volume)Ordered By: Franky Pearson on 06-22-2023 Hemoglobin (Bld) [Mass/Vol] 12.7 g/dL 12.0-15.[address] [facility] Blood platelet mean volumeOr dered By: Franky Pearson on 06-22-2023 Platelet mean volume (Bld) [Entitic vol] 9.3 fL 6.2-12.[address] [facility] Determination of erythrocyte mean corpuscular volume (MCV)Ordered By: Franky Pearson on 06-22-2023 MCV (RBC) [Entitic vol] 95.1 fL 81-[address] [facility] Folic acid serumOrdered By: Franky Pearson on 06-22-2023 Folate [Mass/Vol] 7.40 ng/mL 3.1-55.[address] [facility] Hematocrit Auto (Bld) [Volum e fraction]Ordered By: Franky Pearson on 06-22-2023 Hematocrit (Bld) [Volume fraction] 40.4 % 37-[address] [facility] Laboratory - Chemistry and C hemistry - challengeOrdered By: Franky Pearson on 06-22-2023 ALP [Catalytic activity/Vol] 84 U/L 45-[address] [facility] ALT [Catalytic activity/Vol] 24 U/L 13-[address] [facility] CO2 [Moles/Vol] 29.0 mmol/L 21.0-32.[address] [facility] Cobalamin (Vitamin B12) [Mass/Vol] 219 pg/mL 211-[address] [facility] Globulin (S) [Mass/Vol] 3.8 g/dL 2.2-4.[address] [facility] Urea nitrogen/Creatinine [Mass ratio] 13.4 mg/mg 10-[address] [facility] Laboratory - Hematology and Cell countsOrdered By: Franky Pearson on 06-22-2023 Erythrocyte distribution width (RBC) [Entitic vol] 44.1 fL 35.1-43.[address] [facility] Erythrocyte distribution width (RBC) [Ratio] 12.7 % 11.6-14.[address] [facility] MCH (RBC) [Entitic mass] 29.9 pg 27.0-32.[address] [facility] MCHC Auto (RBC) [Mass/Vol]Or dered By: Franky Pearson on 06-22-2023 MCHC (RBC) [Mass/Vol] 31.4 g/dL 32-[address] [facility] No Panel InformationOrdered By: Franky Pearson on 06-22-2023 Estimated GFR (MDRD) Amer 78 mL/min >[address] [facility] Comment on above: GFR Calc Estimated GFR (MDRD) Non-Af Amer 64 mL/min >[address] [facility] Comment on above: Non- GFR Calc Thyroid Stimulating Hormone (TSH) 1.00 uIU/mL 0.358-3.[address] [facility] Vitamin D 25-Hydroxy 54.4 ng/mL [facility] Comment on above: Vitamin D 25(OH) Sta tus Range Deficiency <20 ng/mL (50nmol/L) Insufficiency 20 - 30 ng/mL (50 - 75 nmol/L) Sufficiency 30 - 100 ng/mL (75 - 250 nmol/L) Toxicity >100 ng/mL (>250 nmol/L) Platelets bldOrdered By: Darren Pearson on 06-22-2023 Platelets (Bld) [#/Vol] 312 10*3/uL 150-[address] [facility] Serum or plasma albumin sharifa urement (mass/volume)Ordered By: Franky Pearson on 06-22-2023 Albumin [Mass/Vol] 3.8 g/dL 3.2-5.0 [facility] Serum or plasma albumin/glob ulin mass ratioOrdered By: Franky Pearson on 06-22-2023 Albumin/Globulin [Mass ratio] 1.0 {ratio} 0.9-2.[address] [facility] Serum or plasma calcium sharifa urement (mass/volume)Ordered By: Franky Pearson on 06-22-2023 Calcium [Mass/Vol] 9.5 mg/dL 8.5-10.1 [facility] Serum or plasma cholesterol in HDL measurement (mass/volume)Ordered By: Franky Pearson on 06-22-2023 Cholesterol in HDL [Mass/Vol] 76 mg/dL >[address] [facility] Comment on above: The drugs N-Acetylcy steine and Metamizole may falsely depress this assay. Reference Range HDL <40 mg/dL Low HDL Cholesterol HDL >or= 60 mg/dL High HDL Cholesterol Serum or plasma cholesterol in VLDL measurement (mass/volume)Ordered By: Farnky Pearson on 06-22-2023 Cholesterol in VLDL [Mass/Vol] 12 mg/dL 5-[address] [facility] Serum or plasma creatinine m easurement (mass/volume)Ordered By: Franky Pearson on 06-22-2023 Creatinine [Mass/Vol] 0.97 mg/dL 0.55-1.[address] [facility] Comment on above: The validity of the calculated GFR & GFRAA in patients over 70 years has not been determined. Clinical correlation is essential. Serum or plasma ferritin kayla surement (mass/volume)Ordered By: Franky Pearson on 06-22-2023 Ferritin [Mass/Vol] 18 ng/mL 8-252 [facility] Serum or plasma low density lipoprotein (LDL) cholesterol measurement (mass/volume)Ordered By: Franky Pearson on 06-22-2023 Cholesterol in LDL [Mass/Vol] 88 mg/dL 0-[address] [facility] Serum or plasma thiamine kayla surement (mass/volume)Ordered By: Franky Pearson on 06-22-2023 Thiamine [Mass/Vol] 157.3 nmol/L 66.5-200.0 [facility] Serum or plasma urea nitroge n measurement (mass/volume)Ordered By: Franky Pearson on 06-22-2023 Urea nitrogen [Mass/Vol] 13 mg/dL 7-[address] [facility] Serum or plasma zinc measure ment (mass/volume)Ordered By: Franky Pearson on 06-22-2023 Zinc [Mass/Vol] 84 ug/dL 44-[address] [facility] Comment on above: Detection Limit = 5P erformed at: [facility] [id number] Director: James Herrera MD, Phone: [phone] Thin prep Papanicolaou smear with manual screeningOrdered By: Franky Pearson on 06-22-2023 Thin prep Papanicolaou smear with manual screening 17 U/L 15-[address] [facility] Thin prep Papanicolaou smear with manual screening 4 5-[address] [facility] Whole blood hemoglobin A1c/t otal hemoglobin ratio (mass fraction)Ordered By: Franky Pearson on 06-22-2023 HbA1c (Bld) [Mass fraction] 5.4 % 3.8-5.[address] [facility] Comment on above: Normal < 5.7 % Predi abetic 5.7 - 6.4 % Diabetic >or= 6.5 % Please note range changes. Laboratory - Microbiology an d Antimicrobial susceptibilityon 12-03-2023 SARS-CoV-2 (COVID-19) RNA SANTINO+probe Ql (Unsp spec) Not detected [facility] No Panel Informationon 05-13 POC Nasal Swab Influenza A,B Not detected [facility] POC Nasal Swab RSV Not detected [facility] 36on 01-16-2023 36 Name of Caller: Ayesha i Contact Reason for Appointment: Pt needs to cancel upcoming appt and the pt sill call back to resx. Please advise Office Name: [facility] Medication Refills need, if any: NA Medication Name: NA [facility] 36on 11-06-2022 36 Please contact the p t regarding the dose of ozempic. 1 mg was prescibed on 08/18/2022. The request for 2 mg does not match the prescription. Please let me know. Thank you [facility] 36on 10-26-2022 36 Requested Prescripti ons Pending Prescriptions Disp Refills Semaglutide, 2 MG/DOSE, (Ozempic, 2 MG/DOSE,) 8 MG/3ML solution pen-injector 12 mL 0 Sig: Inject 2 mg under the skin 1 (one) time per week. Last seen on 08-18-22 by NK Next appt on 12/15/[address] [facility] B1WBon 09-13-2022 Vitamin B1 (TDP), Whole Blood 92.0 nmol/L Normal 84.3-213.3 [facility] ([place]) Comment on above: Result Comment: Disr egard reference range. Test performed at [facility]. Reference interval: 70-180 nmol/L This assay measures the concentration of thiamine diphosphate (TDP), the primary active form of vitamin B1. Approximately 90 percent of vitamin B1 present in the whole blood is TDP. Thiamine and thiamine monophosphate, which compromise the remaining 10 present are not measured. This test was developed and its performance characteristics determine by [facility] [employer]. It has not been cleared or approved by the [place] Food and Drug administration. This test was performed in a CLIA certified laboratory and is intended for clinical purposes. Performed By: [facility] [employer] [address] [place] [address] Instrument Sterilizer: Kenny Nunes III, M.D. CLIA#: [id number] Performed By: #### A HUMBERTO CONTEH #### [address] [address] ZINCon 09-04-2022 Zinc (s) 65 UG/DL Normal 60-120 [facility] ([place]) Comment on above: Result Comment: This test was developed and its performance characteristics determined by [facility] [place] ([facility]). It has not been cleared or approved by the FDA. [facility] is regulated under CLIA as qualified to perform high-complexity testing. This test is used for clinical purposes. It should not be regarded as investigational or for research. Performed By: [facility] [address] [place] [address] Instrument Sterilizer: Kenny Nunes III, M.D. CLIA#: [id number] Performed By: #### A HUMBERTO CONTEH #### [address] [address] .Auto Diffon 09-02-2022 Basophil, Absolute 0.0 10 3/mcL Normal 0.0-0.2 [facility] ([place]) Comment on above: Performed By: #### H CV1 #### [address] [address] #### CBC, ADIFF, CK, ANEU, CMP, A1C, LIPID, VIDH, MG, TSH, GFR, B1WB, ZINC #### [address] [address] Basophils/100 WBC (Bld) 0.5 % Normal 0.0-2.5 [facility] ([place]) Comment on above: Performed By: #### H CV1 #### [address] [address] #### CBC, ADIFF, CK, ANEU, CMP, A1C, LIPID, VIDH, MG, TSH, GFR, B1WB, ZINC #### [address] [address] Eosinophil, Absolute 0.2 10 3/mcL Normal 0.0-0.4 [facility] ([place]) Comment on above: Performed By: #### H CV1 #### [place] [address] #### CBC, ADIFF, CK, ANEU, CMP, A1C, LIPID, VIDH, MG, TSH, GFR, B1WB, ZINC #### [address] [address] Eosinophils/100 WBC (Bld) 2.1 % Normal 0.0-7.0 [facility] ([place]) Comment on above: Performed By: #### H CV1 #### [place] [address] #### CBC, ADIFF, CK, ANEU, CMP, A1C, LIPID, VIDH, MG, TSH, GFR, B1WB, ZINC #### [address] [address] Lymphocyte, Absolute 2.3 10 3/mcL Normal 0.8-3.9 [facility] ([place]) Comment on above: Performed By: #### H CV1 #### [place] [address] #### CBC, ADIFF, CK, ANEU, CMP, A1C, LIPID, VIDH, MG, TSH, GFR, B1WB, ZINC #### [address] [address] Lymphocytes/100 WBC (Bld) 30.9 % Normal 10.0-50.0 [facility] ([place]) Comment on above: Performed By: #### H CV1 #### [place] [address] #### CBC, ADIFF, CK, ANEU, CMP, A1C, LIPID, VIDH, MG, TSH, GFR, B1WB, ZINC #### [address] [address] Monocyte, Absolute 0.7 10 3/mcL Normal 0.2-1.0 [facility] ([place]) Comment on above: Performed By: #### H CV1 #### [place] [address] #### CBC, ADIFF, CK, ANEU, CMP, A1C, LIPID, VIDH, MG, TSH, GFR, B1WB, ZINC #### [address] [address] Monocytes/100 WBC (Bld) 9.0 % Normal 1.7-13.0 [facility] ([place]) Comment on above: Performed By: #### H CV1 #### [address] [address] #### CBC, ADIFF, CK, ANEU, CMP, A1C, LIPID, VIDH, MG, TSH, GFR, B1WB, ZINC #### [address] [address] Neutrophils/100 WBC (Bld) 57.5 % Normal 37.0-80.0 [facility] ([place]) Comment on above: Performed By: #### H CV1 #### [address] [address] #### CBC, ADIFF, CK, ANEU, CMP, A1C, LIPID, VIDH, MG, TSH, GFR, B1WB, ZINC #### [address] [address] .GFRon 09-02-2022 GFR 97 ml/min/1.73sqm Normal [facility] ([place]) Comment on above: Result Comment: GFR Population mean for , Non- Americans Ages 20-29 = 116 mL/min/1.73 sq.m. Ages 30-39 = 107 mL/min/1.73 sq.m. Ages 40-49 = 99 mL/min/1.73 sq.m. Ages 50-59 = 93 mL/min/1.73 sq.m. Ages 60-69 = 85 mL/min/1.73 sq.m. Ages 70+ = 75 mL/min/1.73 sq.m. Chronic Kidney Disease: Less than 60 mL/min/1.73 square meters End Stage Renal Disease: Less than 15 mL/min/1.73 square meters Performed By: #### A HUMBERTO CONTEH #### [address] [address] GFR Non- 80 ml/min/1.73sqm Normal [facility] ([place]) Comment on above: Result Comment: GFR Population mean for , Non- Americans Ages 20-29 = 116 mL/min/1.73 sq.m. Ages 30-39 = 107 mL/min/1.73 sq.m. Ages 40-49 = 99 mL/min/1.73 sq.m. Ages 50-59 = 93 mL/min/1.73 sq.m. Ages 60-69 = 85 mL/min/1.73 sq.m. Ages 70+ = 75 mL/min/1.73 sq.m. Chronic Kidney Disease: Less than 60 mL/min/1.73 square meters End Stage Renal Disease: Less than 15 mL/min/1.73 square meters Performed By: #### A HUMBERTO CONTEH #### [address] [address] .NEUABSon 09-02-2022 Neutrophil, Absolute 4.3 10 3/mcL Normal 2.9-6.2 [facility] ([place]) Comment on above: Performed By: #### H CV1 #### [place] [address] #### CBC, ADIFF, CK, ANEU, CMP, A1C, LIPID, VIDH, MG, TSH, GFR, B1WB, ZINC #### [address] [address] A1C 09-02-2022 HbA1c (Bld) [Mass fraction] 5.6 % Normal 4.3-6.4 [facility] ([place]) Comment on above: Performed By: #### H CV1 #### [place] [address] #### CBC, ADIFF, CK, ANEU, CMP, A1C, LIPID, VIDH, MG, TSH, GFR, B1WB, ZINC #### [address] [address] CBCon 09-02-2022 Erythrocyte distribution width (RBC) [Ratio] 13.6 % Normal 11.5-14.5 [facility] ([place] Comment on above: Performed By: #### H CV1 #### [place] [address] #### CBC, ADIFF, CK, ANEU, CMP, A1C, LIPID, VIDH, MG, TSH, GFR, B1WB, ZINC #### [address] [address] Hematocrit (Bld) [Volume fraction] 35.7 % Low 37.0-47.0 [facility] ([place] Comment on above: Performed By: #### H CV1 #### [place] [address] #### CBC, ADIFF, CK, ANEU, CMP, A1C, LIPID, VIDH, MG, TSH, GFR, B1WB, ZINC #### [address] [address] Hgb 12.2 G/dL Normal 12.0-16.0 [facility] ([place] Comment on above: Performed By: #### H CV1 #### [place] [address] #### CBC, ADIFF, CK, ANEU, CMP, A1C, LIPID, VIDH, MG, TSH, GFR, B1WB, ZINC #### [address] [address] MCH (RBC) [Entitic mass] 30.9 pg Normal 27.0-31.2 [facility] ([place] Comment on above: Performed By: #### H CV1 #### [place] [address] #### CBC, ADIFF, CK, ANEU, CMP, A1C, LIPID, VIDH, MG, TSH, GFR, B1WB, ZINC #### [address] [address] MCHC 34.1 G/dL Normal 33.0-37.0 [facility] ([place] Comment on above: Performed By: #### H CV1 #### [place] [address] #### CBC, ADIFF, CK, ANEU, CMP, A1C, LIPID, VIDH, MG, TSH, GFR, B1WB, ZINC #### [address] [address] MCV (RBC) [Entitic vol] 90.7 fL Normal 80.0-94.0 [facility] ([place] Comment on above: Performed By: #### H CV1 #### [place] [address] #### CBC, ADIFF, CK, ANEU, CMP, A1C, LIPID, VIDH, MG, TSH, GFR, B1WB, ZINC #### [address] [address] Platelet 419 10 3/mcL High 130-400 [facility] ([place] Comment on above: Performed By: #### H CV1 #### [place] [address] #### CBC, ADIFF, CK, ANEU, CMP, A1C, LIPID, VIDH, MG, TSH, GFR, B1WB, ZINC #### [address] [address] Platelet mean volume (Bld) [Entitic vol] 6.6 fL Low 7.4-10.4 [facility] ([place] Comment on above: Performed By: #### H CV1 #### [place] [address] #### CBC, ADIFF, CK, ANEU, CMP, A1C, LIPID, VIDH, MG, TSH, GFR, B1WB, ZINC #### [address] [address] RBC 3.94 10 6/mcL Low 4.20-5.40 [facility] ([place] Comment on above: Performed By: #### H CV1 #### [place] [address] #### CBC, ADIFF, CK, ANEU, CMP, A1C, LIPID, VIDH, MG, TSH, GFR, B1WB, ZINC #### [address] [address] WBC 7.5 10 3/mcL Normal 4.6-10.8 [facility] ([place] Comment on above: Performed By: #### H CV1 #### [address] [address] #### CBC, ADIFF, CK, ANEU, CMP, A1C, LIPID, VIDH, MG, TSH, GFR, B1WB, ZINC #### [address] [address] CKon 09-02-2022 CK [Catalytic activity/Vol] 32 U/L Normal 26-192 [facility] ([place] Comment on above: Performed By: #### H CV1 #### [address] [address] #### CBC, ADIFF, CK, ANEU, CMP, A1C, LIPID, VIDH, MG, TSH, GFR, B1WB, ZINC #### [address] [address] CMPon 09-02-2022 Albumin Level 3.7 G/dL Normal 3.5-5.0 [facility] ([place] Comment on above: Performed By: #### A HUMBERTO CONTEH #### [address] [address] Albumin/Globulin [Mass ratio] 1.1 {ratio} Normal 1.1-2.5 [facility] ([place]) Comment on above: Performed By: #### A HUMBERTO CONTEH #### [address] [address] ALP [Catalytic activity/Vol] 83 U/L Normal 40-135 [facility] ([place] Comment on above: Performed By: #### A HUMBERTO CONTEH #### [address] [address] ALT [Catalytic activity/Vol] 27 U/L Normal 14-59 [facility] ([place] Comment on above: Performed By: #### A HUMBERTO CONTEH #### [address] [address] AST [Catalytic activity/Vol] 15 U/L Normal 10-40 [facility] ([place] Comment on above: Performed By: #### A HUMBERTO CONTEH #### [address] [address] Bili Total 0.2 mg/dL Normal 0.2-1.0 [facility] ([place] Comment on above: Result Comment: Use of this assay is not recommended for patients undergoing treatment with eltrombopag due to the potential for falsely elevated results. Performed By: #### A WERO TROPHS #### [address] [address] BUN/Creatinine Ratio 16 ratio Normal 7-27 [facility] ([place]) Comment on above: Performed By: #### A WERO TROPHS #### [address] [address] Calcium [Mass/Vol] 9.0 mg/dL Normal 8.4-10.2 [facility] ([place]) Comment on above: Performed By: #### A WERO TROPHS #### [address] [address] Chloride [Moles/Vol] 104 mmol/L Normal 98-107 [facility] ([place]) Comment on above: Performed By: #### A WERO TROPHS #### [address] [address] CO2 [Moles/Vol] 29 mmol/L Normal 22-29 [facility] ([place] Comment on above: Performed By: #### A KRISTAL CONTEHS #### [address] [address] Creatinine [Mass/Vol] 0.76 mg/dL Normal 0.55-1.02 [facility] ([place] Comment on above: Performed By: #### A WERO TROPHS #### [address] [address] Electrolyte Balance 9.0 mEq/L Normal 4.0-15.0 [facility] ([place]) Comment on above: Performed By: #### A WERO TROPHS #### [address] [address] Globulin 3.3 G/dL Normal [facility] ([place]) Comment on above: Performed By: #### A KRISTAL CONTEHS #### [address] [address] Glucose [Mass/Vol] 76 mg/dL Normal 70-105 [facility] ([place]) Comment on above: Performed By: #### A KRISTAL CONTEHS #### [address] [address] Potassium [Moles/Vol] 4.3 mmol/L Normal 3.5-5.1 [facility] ([place] Comment on above: Performed By: #### A KRISTAL CONTEHS #### [address] [address] Sodium [Moles/Vol] 142 mmol/L Normal 136-145 [facility] ([place]) Comment on above: Performed By: #### KRISTAL WADES #### [address] [address] Total Protein 7.0 G/dL Normal 6.4-8.2 [facility] ([place] Comment on above: Performed By: #### A KRISTAL CONTEHS #### [address] [address] Urea nitrogen [Mass/Vol] 12 mg/dL Normal 7-18 [facility] ([place] Comment on above: Performed By: #### KRISTAL WADES #### [address] [address] HCVon 09-02-2022 Hep C Ab Non-Reactive Normal Non-Reactiv e [facility] ([place] Comment on above: Performed By: #### A KRISTAL CONTEHS #### [address] [address] Hep C Ab Int Normal [facility] ([place] Comment on above: Result Comment: Nonr eactive: Samples with a value < 0.80 are considered nonreactive (negative) for antibodies to HCV. A negative test result does not exclude the possibility of exposure to or infection with HCV. HCV antibodies may be undetectable in some stages of the infection and in some clinical conditions. See Interp Performed By: #### KRISTAL WADES #### [address] [address] LABORATORYOrdered By: SYSTEM SYSTEM on 09-02-2022 Albumin BCP dye [Mass/Vol] 3.7 G/dL Invalid Interpretation Code 3.5 - 5.0 G/dL AO ADM SS Albumin/Globulin [Mass ratio] 1.1 {ratio} Invalid Interpretation Code 1.1 - 2.5 ratio AO ADM SS ALP [Catalytic activity/Vol] 83 U/L Invalid Interpretation Code 40 - 135 U/L AO ADM SS ALT With P-5'-P [Catalytic activity/Vol] 27 U/L Invalid Interpretation Code 14 - 59 U/L AO ADM SS AST With P-5'-P [Catalytic activity/Vol] 15 U/L Invalid Interpretation Code 10 - 40 U/L AO ADM SS Bilirubin [Mass/Vol] 0.2 mg/dL Invalid Interpretation Code 0.2 - 1.0 mg/dL AO ADM SS Calcium [Mass/Vol] 9.0 mg/dL Invalid Interpretation Code 8.4 - 10.2 mg/dL AO ADM SS Chloride [Moles/Vol] 104 mmol/L Invalid Interpretation Code 98 - 107 mmol/L AO ADM SS CO2 [Moles/Vol] 29 mmol/L Invalid Interpretation Code 22 - 29 mmol/L AO ADM SS CPK 32 1 Invalid Interpretation Code 26 - 192 U/L AO ADM SS Creatinine [Mass/Vol] 0.76 mg/dL Invalid Interpretation Code 0.55 - 1.02 mg/dL AO ADM SS Electrolyte Balance 9.0 mEq/L Invalid Interpretation Code 4.0 - 15.0 mEq/L AO ADM SS GFR 97 ml/min/1.73sqm Invalid Interpretation Code AO Chemistry S GFR Non- 80 ml/min/1.73sqm Invalid Interpretation Code AO Chemistry S Globulin 3.3 G/dL Invalid Interpretation Code AO ADM SS Glucose [Mass/Vol] 76 mg/dL Invalid Interpretation Code 70 - 105 mg/dL AO ADM SS HbA1c (Bld) [Mass fraction] 5.6 % Invalid Interpretation Code 4.3 - 6.4 % AO ADM SS Magnesium [Mass/Vol] 2.1 mg/dL Invalid Interpretation Code 1.8 - 2.4 mg/dL AO ADM SS Potassium [Moles/Vol] 4.3 mmol/L Invalid Interpretation Code 3.5 - 5.1 mmol/L AO ADM SS Protein [Mass/Vol] 7.0 G/dL Invalid Interpretation Code 6.4 - 8.2 G/dL AO ADM SS Sodium [Moles/Vol] 142 mmol/L Invalid Interpretation Code 136 - 145 mmol/L AO ADM SS TSH Qn 1.47 m[IU]/L Invalid Interpretation Code 0.36 - 3.74 mcIU/mL AO ADM SS Urea nitrogen [Mass/Vol] 12 mg/dL Invalid Interpretation Code 7 - 18 mg/dL AO ADM SS Urea nitrogen/Creatinine [Mass ratio] 16 ratio Invalid Interpretation Code 7 - 27 ratio AO ADM SS Vit. D 25-Hydroxy 46.3 ng/mL Invalid Interpretation Code AO ADM SS LABORATORYOrdered By: Nir Hackett on 09-02-2022 Basophil, Absolute 0.0 103/mcL Invalid Interpretation Code 0.0 - 0.2 10^3/mcL AO Workflow SS Basophils/100 WBC (Bld) 0.5 % Invalid Interpretation Code 0.0 - 2.5 % AO Workflow SS Cholesterol [Mass/Vol] 185 mg/dL Invalid Interpretation Code 0 - 200 mg/dL AO ADM SS Cholesterol in HDL [Mass/Vol] 67 mg/dL Invalid Interpretation Code 40 - 60 mg/dL AO ADM SS Cholesterol in LDL [Mass/Vol] 96 mg/dL Invalid Interpretation Code 0 - 130 mg/dL AO ADM SS Eosinophil, Absolute 0.2 103/mcL Invalid Interpretation Code 0.0 - 0.4 10^3/mcL AO Workflow SS Eosinophils/100 WBC (Bld) 2.1 % Invalid Interpretation Code 0.0 - 7.0 % AO Workflow SS Erythrocyte distribution width (RBC) [Ratio] 13.6 % Invalid Interpretation Code 11.5 - 14.5 % AO Workflow SS Hematocrit (Bld) [Volume fraction] 35.7 % Invalid Interpretation Code 37.0 - 47.0 % AO Workflow SS Hemoglobin (Bld) [Mass/Vol] 12.2 G/dL Invalid Interpretation Code 12.0 - 16.0 G/dL AO Workflow SS Lymphocyte, Absolute 2.3 103/mcL Invalid Interpretation Code 0.8 - 3.9 10^3/mcL AO Workflow SS Lymphocytes/100 WBC (Bld) 30.9 % Invalid Interpretation Code 10.0 - 50.0 % AO Workflow SS MCH (RBC) [Entitic mass] 30.9 pg Invalid Interpretation Code 27.0 - 31.2 pg AO Workflow SS MCHC 34.1 G/dL Invalid Interpretation Code 33.0 - 37.0 G/dL AO Workflow SS MCV (RBC) [Entitic vol] 90.7 fL Invalid Interpretation Code 80.0 - 94.0 fL AO Workflow SS Monocyte, Absolute 0.7 103/mcL Invalid Interpretation Code 0.2 - 1.0 10^3/mcL AO Workflow SS Monocytes/100 WBC (Bld) 9.0 % Invalid Interpretation Code 1.7 - 13.0 % AO Workflow SS Neutrophil, Absolute 4.3 103/mcL Invalid Interpretation Code 2.9 - 6.2 10^3/mcL AO Workflow SS Neutrophils/100 WBC (Bld) 57.5 % Invalid Interpretation Code 37.0 - 80.0 % AO Workflow SS Platelet mean volume (Bld) [Entitic vol] 6.6 fL Invalid Interpretation Code 7.4 - 10.4 fL AO Workflow SS Platelets (Bld) [#/Vol] 419 103/mcL Invalid Interpretation Code 130 - 400 10^3/mcL AO Workflow SS RBC (Bld) [#/Vol] 3.94 106/mcL Invalid Interpretation Code 4.20 - 5.40 10^6/mcL AO Workflow SS Triglyceride [Mass/Vol] 109 mg/dL Invalid Interpretation Code 0 - 150 mg/dL AO ADM SS WBC (Bld) [#/Vol] 7.5 103/mcL Invalid Interpretation Code 4.6 - 10.8 10^3/mcL AO Workflow SS LABORATORYOrdered By: Ad Spear on 09-02-2022 HCV Ab IA Ql Non-Reactive (09/02/22 9:55 AM) Invalid Interpretation Code Non-Reactiv e ADM SS HCV Ab IA Ql Nonreactive: Samples with a value < 0.80 are considered nonreactive (negative) for antibodies to HCV.A negative test result does not exclude the possibility of exposure to or infection with HCV. HCV antibodies may be undetectable in some stages of the infection and in some clinical conditions. Invalid Interpretation Code Chemistry S LIPIDon 09-02-2022 Cholesterol [Mass/Vol] 185 mg/dL Normal 0-200 [facility] ([place]) Comment on above: Result Comment: Chol esterol Reference Interval: Less than 200 Desirable 200-239 Borderline high risk 240 and above High risk Performed By: #### A HUMBERTO CONTEH #### [address] [address] Cholesterol in HDL [Mass/Vol] 67 mg/dL High 40-60 [facility] ([place]) Comment on above: Performed By: #### A HUMBERTO CONTEH #### [address] [address] Cholesterol in LDL [Mass/Vol] 96 mg/dL Normal 0-130 [facility] ([place]) Comment on above: Performed By: #### A HUMBERTO CONTEH #### [address] [address] Triglyceride [Mass/Vol] 109 mg/dL Normal 0-150 [facility] ([place]) Comment on above: Result Comment: Trig lyceride Reference Interval: Less than 150 Normal 150-199 Borderline high risk 200-499 High risk 500 or higher Very high risk Performed By: #### A HUMBERTO CONTEH #### [address] [address] MGon 09-02-2022 Magnesium [Mass/Vol] 2.1 mg/dL Normal 1.8-2.4 [facility] ([place]) Comment on above: Performed By: #### H CV1 #### [place] [address] #### CBC, ADIFF, CK, ANEU, CMP, A1C, LIPID, VIDH, MG, TSH, GFR, B1WB, ZINC #### [address] [address] TSHon 09-02-2022 TSH Qn 1.47 m[IU]/L Normal 0.36-3.74 [facility] ([place]) Comment on above: Performed By: #### H CV1 #### [address] [address] #### CBC, ADIFF, CK, ANEU, CMP, A1C, LIPID, VIDH, MG, TSH, GFR, B1WB, ZINC #### [address] [address] VIDHon 09-02-2022 Vit. D 25-Hydroxy 46.3 ng/mL Normal [facility] ([place]) Comment on above: Result Comment: Inte rpretive Values Based on Total 25(OH) Vitamin D: Deficient <20 ng/mL Insufficient 20 - <30 ng/mL Sufficient 30-100 ng/mL Performed By: #### H CV1 #### [place] [address] #### CBC, ADIFF, CK, ANEU, CMP, A1C, LIPID, VIDH, MG, TSH, GFR, B1WB, ZINC #### [address] [address] .Auto Diffon 08-26-2022 Basophil, Absolute 0.0 10 3/mcL Normal 0.0-0.2 [facility] ([place]) Comment on above: Performed By: #### H CV1 #### [place] [address] #### CBC, ADIFF, CK, ANEU, CMP, A1C, LIPID, VIDH, MG, TSH, GFR, B1WB, ZINC #### [address] [address] Basophils/100 WBC (Bld) 0.2 % Normal 0.0-2.5 [facility] ([place]) Comment on above: Performed By: #### H CV1 #### [place] [address] #### CBC, ADIFF, CK, ANEU, CMP, A1C, LIPID, VIDH, MG, TSH, GFR, B1WB, ZINC #### [address] [address] Eosinophil, Absolute 0.1 10 3/mcL Normal 0.0-0.4 [facility] ([place]) Comment on above: Performed By: #### H CV1 #### [place] [address] #### CBC, ADIFF, CK, ANEU, CMP, A1C, LIPID, VIDH, MG, TSH, GFR, B1WB, ZINC #### [address] [address] Eosinophils/100 WBC (Bld) 0.9 % Normal 0.0-7.0 [facility] ([place]) Comment on above: Performed By: #### H CV1 #### [place] [address] #### CBC, ADIFF, CK, ANEU, CMP, A1C, LIPID, VIDH, MG, TSH, GFR, B1WB, ZINC #### [address] [address] Lymphocyte, Absolute 0.7 10 3/mcL Low 0.8-3.9 [facility] ([place]) Comment on above: Performed By: #### H CV1 #### [place] [address] #### CBC, ADIFF, CK, ANEU, CMP, A1C, LIPID, VIDH, MG, TSH, GFR, B1WB, ZINC #### [address] [address] Lymphocytes/100 WBC (Bld) 8.5 % Low 10.0-50.0 [facility] ([place]) Comment on above: Performed By: #### H CV1 #### [place] [address] #### CBC, ADIFF, CK, ANEU, CMP, A1C, LIPID, VIDH, MG, TSH, GFR, B1WB, ZINC #### [address] [address] Monocyte, Absolute 0.5 10 3/mcL Normal 0.2-1.0 [facility] ([place]) Comment on above: Performed By: #### H CV1 #### [place] [address] #### CBC, ADIFF, CK, ANEU, CMP, A1C, LIPID, VIDH, MG, TSH, GFR, B1WB, ZINC #### [address] [address] Monocytes/100 WBC (Bld) 6.4 % Normal 1.7-13.0 [facility] ([place]) Comment on above: Performed By: #### H CV1 #### [place] [address] #### CBC, ADIFF, CK, ANEU, CMP, A1C, LIPID, VIDH, MG, TSH, GFR, B1WB, ZINC #### [address] [address] Neutrophils/100 WBC (Bld) 84.0 % High 37.0-80.0 [facility] ([place]) Comment on above: Performed By: #### H CV1 #### [address] [address] #### CBC, ADIFF, CK, ANEU, CMP, A1C, LIPID, VIDH, MG, TSH, GFR, B1WB, ZINC #### [address] [address] .GFRon 08-26-2022 GFR 82 ml/min/1.73sqm Normal [facility] ([place]) Comment on above: Result Comment: GFR Population mean for , Non- Americans Ages 20-29 = 116 mL/min/1.73 sq.m. Ages 30-39 = 107 mL/min/1.73 sq.m. Ages 40-49 = 99 mL/min/1.73 sq.m. Ages 50-59 = 93 mL/min/1.73 sq.m. Ages 60-69 = 85 mL/min/1.73 sq.m. Ages 70+ = 75 mL/min/1.73 sq.m. Chronic Kidney Disease: Less than 60 mL/min/1.73 square meters End Stage Renal Disease: Less than 15 mL/min/1.73 square meters Performed By: #### H CV1 #### [address] [address] #### CBC, ADIFF, CK, ANEU, CMP, A1C, LIPID, VIDH, MG, TSH, GFR, B1WB, ZINC #### [address] [address] GFR Non- 68 ml/min/1.73sqm Normal [facility] ([place]) Comment on above: Result Comment: GFR Population mean for , Non- Americans Ages 20-29 = 116 mL/min/1.73 sq.m. Ages 30-39 = 107 mL/min/1.73 sq.m. Ages 40-49 = 99 mL/min/1.73 sq.m. Ages 50-59 = 93 mL/min/1.73 sq.m. Ages 60-69 = 85 mL/min/1.73 sq.m. Ages 70+ = 75 mL/min/1.73 sq.m. Chronic Kidney Disease: Less than 60 mL/min/1.73 square meters End Stage Renal Disease: Less than 15 mL/min/1.73 square meters Performed By: #### H CV1 #### [place] [address] #### CBC, ADIFF, CK, ANEU, CMP, A1C, LIPID, VIDH, MG, TSH, GFR, B1WB, ZINC #### [address] [address] .MDWon 08-26-2022 Monocyte Distribution Width 20.32 High 0.00-20.00 [facility] ([place]) Comment on above: Result Comment: For adults in ED, MDW>20.0 may be associated with a higher risk of sepsis during the first 12hrs of hospital admission Performed By: #### H CV1 #### [place] [address] #### CBC, ADIFF, CK, ANEU, CMP, A1C, LIPID, VIDH, MG, TSH, GFR, B1WB, ZINC #### [address] [address] .NEUABSon 08-26-2022 Neutrophil, Absolute 6.7 10 3/mcL High 2.9-6.2 [facility] ([place]) Comment on above: Performed By: #### H CV1 #### [place] [address] #### CBC, ADIFF, CK, ANEU, CMP, A1C, LIPID, VIDH, MG, TSH, GFR, B1WB, ZINC #### [address] [address] AMYon 08-26-2022 Amylase [Catalytic activity/Vol] 54 U/L Normal 25-115 [facility] ([place]) Comment on above: Performed By: #### A MY, TROPHS #### [address] [address] CBCon 08-26-2022 Erythrocyte distribution width (RBC) [Ratio] 13.7 % Normal 11.5-14.5 [facility] ([place]) Comment on above: Performed By: #### H CV1 #### [address] [address] #### CBC, ADIFF, CK, ANEU, CMP, A1C, LIPID, VIDH, MG, TSH, GFR, B1WB, ZINC #### [address] [address] Hematocrit (Bld) [Volume fraction] 37.5 % Normal 37.0-47.0 [facility] ([place]) Comment on above: Performed By: #### H CV1 #### [place] [address] #### CBC, ADIFF, CK, ANEU, CMP, A1C, LIPID, VIDH, MG, TSH, GFR, B1WB, ZINC #### [address] [address] Hgb 12.6 G/dL Normal 12.0-16.0 [facility] ([place]) Comment on above: Performed By: #### H CV1 #### [place] [address] #### CBC, ADIFF, CK, ANEU, CMP, A1C, LIPID, VIDH, MG, TSH, GFR, B1WB, ZINC #### [address] [address] MCH (RBC) [Entitic mass] 30.7 pg Normal 27.0-31.2 [facility] ([place]) Comment on above: Performed By: #### H CV1 #### [place] [address] #### CBC, ADIFF, CK, ANEU, CMP, A1C, LIPID, VIDH, MG, TSH, GFR, B1WB, ZINC #### [address] [address] MCHC 33.7 G/dL Normal 33.0-37.0 [facility] ([place]) Comment on above: Performed By: #### H CV1 #### [place] [address] #### CBC, ADIFF, CK, ANEU, CMP, A1C, LIPID, VIDH, MG, TSH, GFR, B1WB, ZINC #### [address] [address] MCV (RBC) [Entitic vol] 91.1 fL Normal 80.0-94.0 [facility] ([place] Comment on above: Performed By: #### H CV1 #### [place] [address] #### CBC, ADIFF, CK, ANEU, CMP, A1C, LIPID, VIDH, MG, TSH, GFR, B1WB, ZINC #### [address] [address] Platelet 304 10 3/mcL Normal 130-400 [facility] ([place]) Comment on above: Performed By: #### H CV1 #### [place] [address] #### CBC, ADIFF, CK, ANEU, CMP, A1C, LIPID, VIDH, MG, TSH, GFR, B1WB, ZINC #### [address] [address] Platelet mean volume (Bld) [Entitic vol] 7.0 fL Low 7.4-10.4 [facility] ([place] Comment on above: Performed By: #### H CV1 #### [place] [address] #### CBC, ADIFF, CK, ANEU, CMP, A1C, LIPID, VIDH, MG, TSH, GFR, B1WB, ZINC #### [address] [address] RBC 4.11 10 6/mcL Low 4.20-5.40 [facility] ([place] Comment on above: Performed By: #### H CV1 #### [place] [address] #### CBC, ADIFF, CK, ANEU, CMP, A1C, LIPID, VIDH, MG, TSH, GFR, B1WB, ZINC #### [address] [address] WBC 8.0 10 3/mcL Normal 4.6-10.8 [facility] ([place] Comment on above: Performed By: #### H CV1 #### [place] [address] #### CBC, ADIFF, CK, ANEU, CMP, A1C, LIPID, VIDH, MG, TSH, GFR, B1WB, ZINC #### [address] [address] CMPon 08-26-2022 Albumin Level 3.9 G/dL Normal 3.5-5.0 [facility] ([place] Comment on above: Performed By: #### H CV1 #### [place] [address] #### CBC, ADIFF, CK, ANEU, CMP, A1C, LIPID, VIDH, MG, TSH, GFR, B1WB, ZINC #### [address] [address] Albumin/Globulin [Mass ratio] 1.2 {ratio} Normal 1.1-2.5 [facility] ([place]) Comment on above: Performed By: #### H CV1 #### [address] [address] #### CBC, ADIFF, CK, ANEU, CMP, A1C, LIPID, VIDH, MG, TSH, GFR, B1WB, ZINC #### [address] [address] ALP [Catalytic activity/Vol] 97 U/L Normal 40-135 [facility] ([place] Comment on above: Performed By: #### H CV1 #### [place] [address] #### CBC, ADIFF, CK, ANEU, CMP, A1C, LIPID, VIDH, MG, TSH, GFR, B1WB, ZINC #### [address] [address] ALT [Catalytic activity/Vol] 27 U/L Normal 14-59 [facility] ([place] Comment on above: Performed By: #### H CV1 #### [place] [address] #### CBC, ADIFF, CK, ANEU, CMP, A1C, LIPID, VIDH, MG, TSH, GFR, B1WB, ZINC #### [address] [address] AST [Catalytic activity/Vol] 34 U/L Normal 10-40 [facility] ([place] Comment on above: Performed By: #### H CV1 #### [address] [address] #### CBC, ADIFF, CK, ANEU, CMP, A1C, LIPID, VIDH, MG, TSH, GFR, B1WB, ZINC #### [address] [address] Bili Total 0.3 mg/dL Normal 0.2-1.0 [facility] ([place] Comment on above: Result Comment: Use of this assay is not recommended for patients undergoing treatment with eltrombopag due to the potential for falsely elevated results. Performed By: #### H CV1 #### [place] [address] #### CBC, ADIFF, CK, ANEU, CMP, A1C, LIPID, VIDH, MG, TSH, GFR, B1WB, ZINC #### [address] [address] BUN/Creatinine Ratio 10 ratio Normal 7-27 [facility] ([place]) Comment on above: Performed By: #### H CV1 #### [address] [address] #### CBC, ADIFF, CK, ANEU, CMP, A1C, LIPID, VIDH, MG, TSH, GFR, B1WB, ZINC #### [address] [address] Calcium [Mass/Vol] 8.7 mg/dL Normal 8.4-10.2 [facility] ([place]) Comment on above: Performed By: #### H CV1 #### [address] [address] #### CBC, ADIFF, CK, ANEU, CMP, A1C, LIPID, VIDH, MG, TSH, GFR, B1WB, ZINC #### [address] [address] Chloride [Moles/Vol] 102 mmol/L Normal 98-107 [facility] ([place]) Comment on above: Performed By: #### H CV1 #### [place] [address] #### CBC, ADIFF, CK, ANEU, CMP, A1C, LIPID, VIDH, MG, TSH, GFR, B1WB, ZINC #### [address] [address] CO2 [Moles/Vol] 27 mmol/L Normal 22-29 [facility] ([place] Comment on above: Performed By: #### H CV1 #### [place] [address] #### CBC, ADIFF, CK, ANEU, CMP, A1C, LIPID, VIDH, MG, TSH, GFR, B1WB, ZINC #### [address] [address] Creatinine [Mass/Vol] 0.88 mg/dL Normal 0.55-1.02 [facility] ([place] Comment on above: Performed By: #### H CV1 #### [place] [address] #### CBC, ADIFF, CK, ANEU, CMP, A1C, LIPID, VIDH, MG, TSH, GFR, B1WB, ZINC #### [address] [address] Electrolyte Balance 8.0 mEq/L Normal 4.0-15.0 [facility] ([place]) Comment on above: Performed By: #### H CV1 #### [place] [id number] #### CBC, ADIFF, CK, ANEU, CMP, A1C, LIPID, VIDH, MG, TSH, GFR, B1WB, ZINC #### [address] [address] Globulin 3.2 G/dL Normal [facility] ([place] Comment on above: Performed By: #### H CV1 #### [address] [address] #### CBC, ADIFF, CK, ANEU, CMP, A1C, LIPID, VIDH, MG, TSH, GFR, B1WB, ZINC #### [address] [address] Glucose [Mass/Vol] 98 mg/dL Normal 70-105 [facility] ([place] Comment on above: Performed By: #### H CV1 #### [address] [address] #### CBC, ADIFF, CK, ANEU, CMP, A1C, LIPID, VIDH, MG, TSH, GFR, B1WB, ZINC #### [address] [address] Potassium [Moles/Vol] 4.3 mmol/L Normal 3.5-5.1 [facility] ([place] Comment on above: Performed By: #### H CV1 #### [address] [address] #### CBC, ADIFF, CK, ANEU, CMP, A1C, LIPID, VIDH, MG, TSH, GFR, B1WB, ZINC #### [address] [address] Sodium [Moles/Vol] 137 mmol/L Normal 136-145 [facility] ([place] Comment on above: Performed By: #### H CV1 #### [address] [address] #### CBC, ADIFF, CK, ANEU, CMP, A1C, LIPID, VIDH, MG, TSH, GFR, B1WB, ZINC #### [address] [address] Total Protein 7.1 G/dL Normal 6.4-8.2 [facility] ([place] Comment on above: Performed By: #### H CV1 #### [address] [address] #### CBC, ADIFF, CK, ANEU, CMP, A1C, LIPID, VIDH, MG, TSH, GFR, B1WB, ZINC #### [address] [address] Urea nitrogen [Mass/Vol] 9 mg/dL Normal - [facility] ([place] Comment on above: Performed By: #### H CV1 #### [address] [address] #### CBC, ADIFF, CK, ANEU, CMP, A1C, LIPID, VIDH, MG, TSH, GFR, B1WB, ZINC #### [address] [address] CRPon 08-26-2022 C-Reactive Protein 4.1 mg/dL High 0.0-0.9 [facility] ([place] Comment on above: Performed By: #### H CV1 #### [address] [address] #### CBC, ADIFF, CK, ANEU, CMP, A1C, LIPID, VIDH, MG, TSH, GFR, B1WB, ZINC #### [address] [address] [address] ABD/PELVIS W/ IV CONTRAST ONLYon 08-26-2022 CT ABD/PELVIS W/ IV CONTRAST ONLY ORIGINAL EXAMINATION: CT OF THE ABDOMEN AND [...] Date: 08/26/2022 6:34:22 PM Ordering Provider: LINDA Silverio [facility]) DIMERon 08-26-2022 D-Dimer <200 Normal 0-230 [facility]) Comment on above: Result Comment: The result of the D-Dimer test should be evaluated in the context of all the clinical and laboratory data available. In those instances where the laboratory result does not agree with the clinical evaluation, additional tests should be performed accordingly. If the D-Dimer result is used to exclude DVT or PE, the recommended cutoff value is less than 230 ng/mL. The D-Dimer result should not be used alone to rule in DVT/PE, but should be used in conjunction with a clinical pretest probability (PTP)assessment model to exclude venous thromboembolism (VTE) in outpatients suspected of deep venous thrombosis (DVT) and pulmonary embolism (PE). Performed By: #### H CV1 #### [address] [address] #### CBC, ADIFF, CK, ANEU, CMP, A1C, LIPID, VIDH, MG, TSH, GFR, B1WB, ZINC #### [address] [address] LABORATORYOrdered By: SYSTEM SYSTEM on 08-26-2022 Amylase [Catalytic activity/Vol] 54 U/L Invalid Interpretation Code 25 - 115 U/L AO ADM SS Troponin I.cardiac DL <= 0.01 ng/mL [Mass/Vol] 4.3 ng/L Invalid Interpretation Code 0.0 - 51.4 ng/L AO ADM SS Albumin BCP dye [Mass/Vol] 3.9 G/dL Invalid Interpretation Code 3.5 - 5.0 G/dL AO ADM SS Albumin/Globulin [Mass ratio] 1.2 {ratio} Invalid Interpretation Code 1.1 - 2.5 ratio AO ADM SS ALP [Catalytic activity/Vol] 97 U/L Invalid Interpretation Code 40 - 135 U/L AO ADM SS ALT With P-5'-P [Catalytic activity/Vol] 27 U/L Invalid Interpretation Code 14 - 59 U/L AO ADM SS AST With P-5'-P [Catalytic activity/Vol] 34 U/L Invalid Interpretation Code 10 - 40 U/L AO ADM SS Bilirubin [Mass/Vol] 0.3 mg/dL Invalid Interpretation Code 0.2 - 1.0 mg/dL AO ADM SS Calcium [Mass/Vol] 8.7 mg/dL Invalid Interpretation Code 8.4 - 10.2 mg/dL AO ADM SS Chloride [Moles/Vol] 102 mmol/L Invalid Interpretation Code 98 - 107 mmol/L AO ADM SS CO2 [Moles/Vol] 27 mmol/L Invalid Interpretation Code 22 - 29 mmol/L AO ADM SS Creatinine [Mass/Vol] 0.88 mg/dL Invalid Interpretation Code 0.55 - 1.02 mg/dL AO ADM SS CRP [Mass/Vol] 4.1 mg/dL Invalid Interpretation Code 0.0 - 0.9 mg/dL AO ADM SS Electrolyte Balance 8.0 mEq/L Invalid Interpretation Code 4.0 - 15.0 mEq/L AO ADM SS GFR 82 ml/min/1.73sqm Invalid Interpretation Code AO Chemistry S GFR Non- 68 ml/min/1.73sqm Invalid Interpretation Code AO Chemistry S Globulin 3.2 G/dL Invalid Interpretation Code AO ADM SS Glucose [Mass/Vol] 98 mg/dL Invalid Interpretation Code 70 - 105 mg/dL AO ADM SS Lipase [Catalytic activity/Vol] 177 U/L Invalid Interpretation Code 16 - 77 U/L AO ADM SS Magnesium [Mass/Vol] 2.0 mg/dL Invalid Interpretation Code 1.8 - 2.4 mg/dL AO ADM SS Natriuretic peptide.B prohormone N-Terminal [Mass/Vol] 27 pg/mL Invalid Interpretation Code 0 - 125 pg/mL AO ADM SS Potassium [Moles/Vol] 4.3 mmol/L Invalid Interpretation Code 3.5 - 5.1 mmol/L AO ADM SS Protein [Mass/Vol] 7.1 G/dL Invalid Interpretation Code 6.4 - 8.2 G/dL AO ADM SS Sodium [Moles/Vol] 137 mmol/L Invalid Interpretation Code 136 - 145 mmol/L AO ADM SS Troponin I.cardiac DL <= 0.01 ng/mL [Mass/Vol] ng/L Invalid Interpretation Code 0.0 - 51.4 ng/L AO ADM SS Urea nitrogen [Mass/Vol] 9 mg/dL Invalid Interpretation Code 7 - 18 mg/dL AO ADM SS Urea nitrogen/Creatinine [Mass ratio] 10 ratio Invalid Interpretation Code 7 - 27 ratio AO ADM SS LABORATORYOrdered By: April White on 08-26-2022 Basophil, Absolute 0.0 103/mcL Invalid Interpretation Code 0.0 - 0.2 10^3/mcL AO Workflow SS Basophils/100 WBC (Bld) 0.2 % Invalid Interpretation Code 0.0 - 2.5 % AO Workflow SS Eosinophil, Absolute 0.1 103/mcL Invalid Interpretation Code 0.0 - 0.4 10^3/mcL AO Workflow SS Eosinophils/100 WBC (Bld) 0.9 % Invalid Interpretation Code 0.0 - 7.0 % AO Workflow SS Erythrocyte distribution width (RBC) [Ratio] 13.7 % Invalid Interpretation Code 11.5 - 14.5 % AO Workflow SS Fibrin D-dimer DDU (PPP) [Mass/Vol] ng/mL D-DU Invalid Interpretation Code 0 - 230 ng/mL D-DU AO HemoHub SS Hematocrit (Bld) [Volume fraction] 37.5 % Invalid Interpretation Code 37.0 - 47.0 % AO Workflow SS Hemoglobin (Bld) [Mass/Vol] 12.6 G/dL Invalid Interpretation Code 12.0 - 16.0 G/dL AO Workflow SS Lymphocyte, Absolute 0.7 103/mcL Invalid Interpretation Code 0.8 - 3.9 10^3/mcL AO Workflow SS Lymphocytes/100 WBC (Bld) 8.5 % Invalid Interpretation Code 10.0 - 50.0 % AO Workflow SS MCH (RBC) [Entitic mass] 30.7 pg Invalid Interpretation Code 27.0 - 31.2 pg AO Workflow SS MCHC 33.7 G/dL Invalid Interpretation Code 33.0 - 37.0 G/dL AO Workflow SS MCV (RBC) [Entitic vol] 91.1 fL Invalid Interpretation Code 80.0 - 94.0 fL AO Workflow SS Monocyte distribution width Auto (Bld) [Entitic vol] 20.32 Invalid Interpretation Code 0.00 - 20.00 AO Workflow SS Comment on above: Result Comment: For adults in ED, MDW>20.0 may be associated with a higher risk of sepsis during the first 12hrs of hospital admission Monocyte, Absolute 0.5 103/mcL Invalid Interpretation Code 0.2 - 1.0 10^3/mcL AO Workflow SS Monocytes/100 WBC (Bld) 6.4 % Invalid Interpretation Code 1.7 - 13.0 % AO Workflow SS Neutrophil, Absolute 6.7 103/mcL Invalid Interpretation Code 2.9 - 6.2 10^3/mcL AO Workflow SS Neutrophils/100 WBC (Bld) 84.0 % Invalid Interpretation Code 37.0 - 80.0 % AO Workflow SS Platelet mean volume (Bld) [Entitic vol] 7.0 fL Invalid Interpretation Code 7.4 - 10.4 fL AO Workflow SS Platelets (Bld) [#/Vol] 304 103/mcL Invalid Interpretation Code 130 - 400 10^3/mcL AO Workflow SS RBC (Bld) [#/Vol] 4.11 106/mcL Invalid Interpretation Code 4.20 - 5.40 10^6/mcL AO Workflow SS WBC (Bld) [#/Vol] 8.0 103/mcL Invalid Interpretation Code 4.6 - 10.8 10^3/mcL AO Workflow SS LIPon 08-26-2022 Lipase Level 177 U/L High 16- [facility] ([place]) Comment on above: Performed By: #### H CV1 #### [address] [address] #### CBC, ADIFF, CK, ANEU, CMP, A1C, LIPID, VIDH, MG, TSH, GFR, B1WB, ZINC #### [address] [address] MGon 08-26-2022 Magnesium [Mass/Vol] 2.0 mg/dL Normal 1.8-2.4 [facility] ([place]) Comment on above: Performed By: #### H CV1 #### [address] [address] #### CBC, ADIFF, CK, ANEU, CMP, A1C, LIPID, VIDH, MG, TSH, GFR, B1WB, ZINC #### [address] [address] PBNPon 08-26-2022 Natriuretic peptide B (Bld) [Mass/Vol] 27 pg/mL Normal 0-125 [facility] ([place] Comment on above: Result Comment: NT-p roBNP results of less than 300 pg/mL effectively rules out acute congestive heart failure with 99% negative predictive value. Performed By: #### H CV1 #### [place] [address] #### CBC, ADIFF, CK, ANEU, CMP, A1C, LIPID, VIDH, MG, TSH, GFR, B1WB, ZINC #### [address] [address] TROPHSon 08-26-2022 Troponin I High Sensitivity 4.3 ng/L Normal 0.0-51.4 [facility] ([place]) Comment on above: Performed By: #### A KRISTAL CONTEHS #### [address] [address] Troponin I High Sensitivity <4.0 Normal 0.0-51.4 [facility] ([place]) Comment on above: Performed By: #### H CV1 #### [place] [address] #### CBC, ADIFF, CK, ANEU, CMP, A1C, LIPID, VIDH, MG, TSH, GFR, B1WB, ZINC #### [address] [address] XR CHEST 1 VIEWon 08-26-2022 XR CHEST 1 VIEW ORIGINAL EXAMINATION: ONE XRAY VIEW OF THE [...] Sign Date: 08/26/2022 5:14:04 PM Ordering Provider: LINDA Silverio [facility] ([place]) US BREAST RIGHT LIMITEDon US BREAST RIGHT LIMITED ORIGINAL FROM: [address] [address] PROCEDURE FOR: AMANDA GRUB[address] [address] [place] [address] Home: PID#: [id number] Exam#: [id number] : 1970 Age: 52 TO: FRANKY PEARSON [address] [place] [address] Fax: NO FAX EXAMINATION: ULTRASOUND OF THE RIGHT BREAST 08/22/2022 10:58 am TECHNIQUE: Color flow and real-time targeted ultrasound of the right breast at o'clock region were performed. COMPARISON: Ultrasound 02/02/2022, 06/20/2021, 12/16/2020, mammogram 02/02/2022, 12/10/2020 HISTORY: ORDERING SYSTEM PROVIDED HISTORY: Reason for Exam: abnormal mammogram, follow up US exam Patient presents for six-month follow-up of right breast finding FINDINGS: In the right breast at 10 o'clock, 7 cm from nipple is an oval hypoechoic mass with circumscribed margins that measures 0.4 x 0.4 x 0.3 cm, previously 0.4 x 0.4 x 0.3 cm. This finding is not significantly changed and resembles a complicated cyst. No other significant sonographic finding is identified in the scanned region of the right breast. IMPRESSION: Right breast mass at 10 o'clock resembles a complicated cyst and is probably benign. A 6 month follow up right breast ultrasound is recommended to demonstrate stability. The patient will be due for a bilateral diagnostic mammogram at that time. BIRADS: MAMMOGRAM BI-RADS: 3: Probably benign RECALL: 6 month follow-up RECALL TYPE: Mammo+US LETTER SENT: Probably Benign BI-RADS 3 Interpreted by: Mily Santiago Preliminary Report By: Mily Santiago Electronically signed By Mily Santiago Dictated Date: 08/22/2022 11:33:07 AM Prelim Date: 08/22/2022 11:37:04 AM Sign Date: 08/22/2022 11:37:04 AM Ordering Provider: FRANKY PEARSON CLINICAL: 6 MONTHS FOLLOW-UP. Community Living Specialist: FELIBERTO CINTRON RT(R) RDMS letter sent: Probably Benign BI-RADS 3 Ultrasound BI-RADS: 3 Probably benign Normal [facility] ([place] Office Visiton 08-18-2022 Follow-up visit [id number] Romie,Amanda Johnson 1970 F Date Provider Department Center 08/18/2022 SHAYNA MOELLER [facility] None Family History Problem Relation Age of Onset Obesity Mother Hypertension Maternal Grandmother No Known Problems Brother No Known Problems Brother No Known Problems Brother Hypertension Mother Heart disease Father Hypertension Maternal Grandfather Heart attack Father Heart disease Maternal Grandmother Bleeding Prob Maternal Grandfather Obesity Father Cancer Paternal Grandmother No Known Problems Sister Diabetes Maternal Grandfather Family Status - Relation Status Age at Mother Alive Maternal Grandmother Brother Alive Brother Alive Brother Alive Father 53 Maternal Grandfather Paternal Grandmother Sister Alive Level of Service:[id number] PA OFFICE/OUTPATIENT ESTABLISHED LOW MDM 20-29 MIN Reason for Visit and Comments: Bariatrics Post Op Follow-up [884] - DE POP 04/08/18 Normal [facility] Progress Noteon 08-18-2022 Progress Note BARIATRIC CARE IDALIA MARK NOTE POST WEIGHT LOSS SURGERY FOLLOW UP Patient: Amanda Grubbs Service Date: 08/18/2022 Patient is 5 year(s) s/p RnY Gastric Bypass Today's Metrics: Post-Surgical Weight Loss Date: 08/18/22 Height: 5' 3.25 (160.7 cm) Weight: 180 lb 9.6 oz (81.9 kg) BMI: 31.74 Weight Change: -3.2 lbs Total Weight Change: % EBWL: Post-op Weight Metrics: Post-Surgical Weight Loss Date: 08/18/22 Height: 5' 3.25 (160.7 cm) Weight: 180 lb 9.6 oz (81.9 kg) BMI: 31.74 Weight Change: -3.2 lbs Total Weight Change: % EBWL: (From Surgical Weight Loss Tracker) Patient has the following questions: None Reported Pain: Patient rates pain on scale 0-10 as: 0 Exercise Compliance: Exercising: yes If yes: Type: gym with rehab trainer Times per week: 3 Min per [...] or JAD If YES: Labs completed at [facility]? N/A If yes see Labs Tab [facility] N/A If yes see Encounters Tab - Orders only - Historical Provider - Date: Completed by: Mary Mishra MA [facility] GLUon 08-15-2022 Glucose [Mass/Vol] 78 mg/dL Normal 70-110 [facility] ([place]) Comment on above: Performed By: #### H CV1 #### [facility] [address] [place] [id number] #### CBC, ADIFF, CK, ANEU, CMP, A1C, LIPID, VIDH, MG, TSH, GFR, B1WB, ZINC #### Nurys [address] [address] LIPIDon 08-15-2022 Cholesterol [Mass/Vol] 166 mg/dL Normal 50-199 [facility] ([place]) Comment on above: Result Comment: Chol esterol Reference Interval: Less than 200 Desirable 200-239 Borderline high risk 240 and above High risk Performed By: #### H CV1 #### [address] [address] #### CBC, ADIFF, CK, ANEU, CMP, A1C, LIPID, VIDH, MG, TSH, GFR, B1WB, ZINC #### [address] [address] Cholesterol in HDL [Mass/Vol] 51 mg/dL Normal 40-59 [facility] ([place]) Comment on above: Performed By: #### H CV1 #### [place] [address] #### CBC, ADIFF, CK, ANEU, CMP, A1C, LIPID, VIDH, MG, TSH, GFR, B1WB, ZINC #### [address] [address] Cholesterol in LDL [Mass/Vol] 84 mg/dL Normal 0-129 [facility] ([place]) Comment on above: Performed By: #### H CV1 #### [place] [address] #### CBC, ADIFF, CK, ANEU, CMP, A1C, LIPID, VIDH, MG, TSH, GFR, B1WB, ZINC #### [address] [address] Triglyceride [Mass/Vol] 156 mg/dL High 3-149 [facility] ([place]) Comment on above: Performed By: #### H CV1 #### [place] [address] #### CBC, ADIFF, CK, ANEU, CMP, A1C, LIPID, VIDH, MG, TSH, GFR, B1WB, ZINC #### [address] [address] Office Visiton 07-07-2022 Follow-up visit [id number] Amanda Grubbs 1970 F Date Provider Department Center 07/07/2022 SHAYNA MOELLER [facility] None Family History Problem Relation Age of Onset Obesity Mother Hypertension Maternal Grandmother No Known Problems Brother No Known Problems Brother No Known Problems Brother Hypertension Mother Heart disease Father Hypertension Maternal Grandfather Heart attack Father Heart disease Maternal Grandmother Bleeding Prob Maternal Grandfather Obesity Father Cancer Paternal Grandmother No Known Problems Sister Diabetes Maternal Grandfather Family Status - Relation Status Age at Mother Alive Maternal Grandmother Brother Alive Brother Alive Brother Alive Father 53 Maternal Grandfather Paternal Grandmother Sister Alive Level of Service:[id number] PA OFFICE/OUTPATIENT ESTABLISHED LOW MDM 20-29 MIN Reason for Visit and Comments: Bariatrics Post Op Follow-up [884] - POP D/E FU [facility] Progress Noteon 07-07-2022 Progress Note BARIATRIC CARE IDALIA MARK NOTE POST WEIGHT LOSS SURGERY FOLLOW UP Patient: Amanda Grubbs Service Date: 07/07/2022 Patient is 5 year(s) s/p RnY Gastric Bypass Today's Metrics: Post-Surgical Weight Loss Date: 07/07/22 Height: 5' 3.25 (160.7 cm) Weight: 183 lb 12.8 oz (83.4 kg) BMI: 32.30 Weight Change: -4.2 lbs Total Weight Change: % EBWL: Comments: pop d/e fu Post-op Weight Metrics: Post-Surgical Weight Loss Date: 07/07/22 Height: 5' 3.25 (160.7 cm) Weight: 183 lb 12.8 oz (83.4 kg) BMI: 32.30 Weight Change: -4.2 lbs Total Weight Change: % EBWL: Comments: pop d/e fu (From Surgical Weight Loss Tracker) Patient has the following questions: None Reported Pain: Patient rates pain on scale 0-10 as: 0 Exercise Compliance: Exercising: yes If yes: Type: walking Times per week: 3 Min per session: 30 Falls Risk Assessment Patient does take medications which affect BP or mental status Patient does not t have newly prescribed or changed dosage of medications within past 30 days which affect BP or mental status Patient has not fallen in the past 2 months Patient does not t demonstrate unsteady gait Patient uses the following ambulatory assistive devices: nonen Patient states the presence of the following traits which increases risk of fall: one Patient is not on home O2 Pre-op Weight Metrics: Labs Completed: no - If NO, patient instructed to get labs drawn today or JAD If YES: Labs completed at [facility]? N/A If yes see Labs Tab Labs completed at Non-[facility] facility? N/A If yes see Encounters Tab - Orders only - Historical Provider - Date: Completed by: Manuel Preciado MA [facility] CT THORAX W/O CONTRASTon CT THORAX W/O CONTRAST ORIGINAL HISTORY: Lung nodule COMPARISON: 02 December [...] Date: 2022 12:43:51 PM Ordering Provider: FRANKY PEARSON [facility] ([place]) Office Visiton 06-07-2022 Follow-up visit [id number] Amanda Grubbs 1970 F Date Provider Department Center 06/07/2022 [id number] SEBASTIAN [facility] None Family History Problem Relation Age of Onset Obesity Mother Hypertension Maternal Grandmother No Known Problems Brother No Known Problems Brother No Known Problems Brother Hypertension Mother Heart disease Father Hypertension Maternal Grandfather Heart attack Father Heart disease Maternal Grandmother Bleeding Prob Maternal Grandfather Obesity Father Cancer Paternal Grandmother No Known Problems Sister Diabetes Maternal Grandfather Family Status - Relation Status Age at Mother Alive Maternal Grandmother Brother Alive Brother Alive Brother Alive Father 53 Maternal Grandfather Paternal Grandmother Sister Alive Level of Service:[id number] PA OFFICE/OUTPATIENT ESTABLISHED LOW MDM 20-29 MIN Reason for Visit and Comments: Bariatrics Post Op Follow-up [884] - POP D/E FU [facility] Progress Noteon 06-07-2022 Progress Note BARIATRIC CARE IDALIA MARK NOTE POST WEIGHT LOSS SURGERY FOLLOW UP Patient: Amanda Grubbs Service Date: 06/07/2022 Patient is 5 year(s) s/p RnY Gastric Bypass Post-op Weight Metrics: Post-Surgical Weight Loss Date: 06/07/22 Height: 5' 3.25 (160.7 cm) ([facility]) Weight: 188 lb (85.3 kg) BMI: 33.04 Weight Change: -3.4 lbs Total Weight Change: % EBWL: Comments: POP D/E FU (From Surgical Weight Loss Tracker) Patient has the following questions: None Reported Pain: Patient rates pain on scale 0-10 as: 0 Exercise Compliance: Exercising: yes If yes: Type: walking Times per week: 2 Min per session: 20 Falls Risk Assessment Patient does take medications [...] or JAD If YES: Labs completed at [facility]? N/A If yes see Labs Tab Labs completed at Non-[facility] facility? N/A If yes see Encounters Tab - Orders only - Historical Provider - Date: Completed by: Manuel Preciado MA [facility] Office Visiton 05-10-2022 Follow-up visit [id number] Amanda Grubbs 1970 F Date Provider Department Center 05/10/2022 [id number] ANDRADE [facility] None Family History Problem Relation Age of Onset Obesity Mother Hypertension Maternal Grandmother No Known Problems Brother No Known Problems Brother No Known Problems Brother Hypertension Mother Heart disease Father Hypertension Maternal Grandfather Heart attack Father Heart disease Maternal Grandmother Bleeding Prob Maternal Grandfather Obesity Father Cancer Paternal Grandmother No Known Problems Sister Diabetes Maternal Grandfather Family Status - Relation Status Age at Mother Alive Maternal Grandmother Brother Alive Brother Alive Brother Alive Father 53 Maternal Grandfather Paternal Grandmother Sister Alive Level of Service:[id number] PA OFFICE/OUTPATIENT ESTABLISHED MOD MDM 30-39 MIN Reason for Visit and Comments: Weight Management [645] - POP D/E [facility] Progress Noteon 05-10-2022 Progress Note BARIATRIC CARE IDALIA MARK NOTE POST WEIGHT LOSS SURGERY FOLLOW UP Patient: Amanda Grubbs Service Date: 05/10/2022 Patient is 5 year(s) s/p RnY Gastric Bypass Post-op Weight Metrics: Post-Surgical Weight Loss Date: 05/10/22 Height: 5' 3.25 (160.7 cm) Weight: 191 lb 6.4 oz (86.8 kg) BMI: 33.63 Weight Change: Total Weight Change: % EBWL: Comments: POP D/E (From Surgical Weight Loss Tracker) Patient has the following questions: None Reported Pain: Patient rates pain on scale 0-10 as: 0 Exercise Compliance: Exercising: yes If yes: Type: CROSSFIT AND WALKING Times per week: 2 Min per session: Normal Falls Risk Assessment Patient does take medications which affect BP or mental status Patient does not t have newly prescribed or changed dosage of medications within past 30 days which affect BP or mental status Patient has not fallen in the past 2 months Patient does not t demonstrate unsteady gait Patient uses the following ambulatory assistive devices: NO Patient states the presence of the following traits which increases risk of fall: NO Patient is not on home O2 Pre-op Weight Metrics: Labs Completed: yes - If NO, patient instructed to get labs drawn today or JAD If YES: Labs completed at [facility]? no If yes see Labs Tab Labs completed at Non-[facility] facility? yes If yes see Encounters Tab - Orders only - Historical Provider - Date: 04/26/22 Completed by: Tatum Del Valle MA [facility] B1WBon 05-01-2022 Vitamin B1 (TDP), Whole Blood 94.7 nmol/L Normal 84.3-213.3 [facility] ([place]) Comment on above: Result Comment: This assay measures the concentration of thiamine diphosphate (TDP), the primary active form of vitamin B1. Approximately 90 percent of vitamin B1 present in whole blood is TDP. Thiamine and thiamine monophosphate, which comprise the remaining 10 percent, are not measured. This test was developed and its performance characteristics determined by [facility] ([facility]). It has not been cleared or approved by the FDA. -[facility] is regulated under CLIA as qualified to perform high-complexity testing. This test is used for clinical purposes. It should not be regarded as investigational or for research. Performed By: [address] [address] Instrument Sterilizer: Kenny Nunes III, M.D. CLIA#: [id number] Performed By: #### H CV1 #### [address] [address] #### CBC, ADIFF, CK, ANEU, CMP, A1C, LIPID, VIDH, MG, TSH, GFR, B1WB, ZINC #### [address] [address] ZINCon 04-27-2022 Zinc (s) 52 UG/DL Low 60-120 [facility] ([place]) Comment on above: Result Comment: This test was developed and its performance characteristics determined by [facility] ([facility]). It has not been cleared or approved by the FDA. [facility] is regulated under CLIA as qualified to perform high-complexity testing. This test is used for clinical purposes. It should not be regarded as investigational or for research. Performed By: [address] [address] Instrument Sterilizer: Kenny Nunes III, M.D. CLIA#: [id number] Performed By: #### H CV1 #### [address] [address] #### CBC, ADIFF, CK, ANEU, CMP, A1C, LIPID, VIDH, MG, TSH, GFR, B1WB, ZINC #### [address] [address] .Auto Diffon 04-26-2022 Basophil, Absolute 0.0 10 3/mcL Normal 0.0-0.2 [facility] ([place]) Comment on above: Performed By: #### H CV1 #### [place] [address] #### CBC, ADIFF, CK, ANEU, CMP, A1C, LIPID, VIDH, MG, TSH, GFR, B1WB, ZINC #### [address] [address] Basophils/100 WBC (Bld) 0.7 % Normal 0.0-2.5 [facility] ([place]) Comment on above: Performed By: #### H CV1 #### [place] [address] #### CBC, ADIFF, CK, ANEU, CMP, A1C, LIPID, VIDH, MG, TSH, GFR, B1WB, ZINC #### [address] [address] Eosinophil, Absolute 0.2 10 3/mcL Normal 0.0-0.4 [facility] ([place]) Comment on above: Performed By: #### H CV1 #### [place] [address] #### CBC, ADIFF, CK, ANEU, CMP, A1C, LIPID, VIDH, MG, TSH, GFR, B1WB, ZINC #### [address] [address] Eosinophils/100 WBC (Bld) 3.2 % Normal 0.0-7.0 [facility] ([place]) Comment on above: Performed By: #### H CV1 #### [place] [address] #### CBC, ADIFF, CK, ANEU, CMP, A1C, LIPID, VIDH, MG, TSH, GFR, B1WB, ZINC #### [address] [address] Lymphocyte, Absolute 1.8 10 3/mcL Normal 0.8-3.9 [facility] ([place]) Comment on above: Performed By: #### H CV1 #### [place] [address] #### CBC, ADIFF, CK, ANEU, CMP, A1C, LIPID, VIDH, MG, TSH, GFR, B1WB, ZINC #### [address] [address] Lymphocytes/100 WBC (Bld) 33.7 % Normal 10.0-50.0 [facility] ([place]) Comment on above: Performed By: #### H CV1 #### [place] [address] #### CBC, ADIFF, CK, ANEU, CMP, A1C, LIPID, VIDH, MG, TSH, GFR, B1WB, ZINC #### [address] [address] Monocyte, Absolute 0.5 10 3/mcL Normal 0.2-1.0 [facility] ([place]) Comment on above: Performed By: #### H CV1 #### [place] [address] #### CBC, ADIFF, CK, ANEU, CMP, A1C, LIPID, VIDH, MG, TSH, GFR, B1WB, ZINC #### [address] [address] Monocytes/100 WBC (Bld) 10.3 % Normal 1.7-13.0 [facility] ([place]) Comment on above: Performed By: #### H CV1 #### [place] [address] #### CBC, ADIFF, CK, ANEU, CMP, A1C, LIPID, VIDH, MG, TSH, GFR, B1WB, ZINC #### [address] [address] Neutrophils/100 WBC (Bld) 52.1 % Normal 37.0-80.0 [facility] ([place]) Comment on above: Performed By: #### H CV1 #### [place] [address] #### CBC, ADIFF, CK, ANEU, CMP, A1C, LIPID, VIDH, MG, TSH, GFR, B1WB, ZINC #### [address] [address] .GFRon 04-26-2022 GFR 71 ml/min/1.73sqm Normal [facility] ([place]) Comment on above: Result Comment: GFR Population mean for , Non- Americans Ages 20-29 = 116 mL/min/1.73 sq.m. Ages 30-39 = 107 mL/min/1.73 sq.m. Ages 40-49 = 99 mL/min/1.73 sq.m. Ages 50-59 = 93 mL/min/1.73 sq.m. Ages 60-69 = 85 mL/min/1.73 sq.m. Ages 70+ = 75 mL/min/1.73 sq.m. Chronic Kidney Disease: Less than 60 mL/min/1.73 square meters End Stage Renal Disease: Less than 15 mL/min/1.73 square meters Performed By: #### H CV1 #### [address] [address] #### CBC, ADIFF, CK, ANEU, CMP, A1C, LIPID, VIDH, MG, TSH, GFR, B1WB, ZINC #### [address] [address] GFR Non- 59 ml/min/1.73sqm Normal [facility] ([place]) Comment on above: Result Comment: GFR Population mean for , Non- Americans Ages 20-29 = 116 mL/min/1.73 sq.m. Ages 30-39 = 107 mL/min/1.73 sq.m. Ages 40-49 = 99 mL/min/1.73 sq.m. Ages 50-59 = 93 mL/min/1.73 sq.m. Ages 60-69 = 85 mL/min/1.73 sq.m. Ages 70+ = 75 mL/min/1.73 sq.m. Chronic Kidney Disease: Less than 60 mL/min/1.73 square meters End Stage Renal Disease: Less than 15 mL/min/1.73 square meters Performed By: #### H CV1 #### [address] [address] #### CBC, ADIFF, CK, ANEU, CMP, A1C, LIPID, VIDH, MG, TSH, GFR, B1WB, ZINC #### [address] [address] .NEUABSon 04-26-2022 Neutrophil, Absolute 2.8 10 3/mcL Low 2.9-6.2 [facility] ([place]) Comment on above: Performed By: #### H CV1 #### [address] [address] #### CBC, ADIFF, CK, ANEU, CMP, A1C, LIPID, VIDH, MG, TSH, GFR, B1WB, ZINC #### [address] [address] A1Con 04-26-2022 HbA1c (Bld) [Mass fraction] 5.7 % Normal 4.3-6.4 [facility] ([place]) Comment on above: Performed By: #### H CV1 #### [place] [address] #### CBC, ADIFF, CK, ANEU, CMP, A1C, LIPID, VIDH, MG, TSH, GFR, B1WB, ZINC #### [address] [address] B12on 04-26-2022 Cobalamin (Vitamin B12) [Mass/Vol] 328 pg/mL Normal 211-911 [facility] ([place]) Comment on above: Performed By: #### H CV1 #### [place] [address] #### CBC, ADIFF, CK, ANEU, CMP, A1C, LIPID, VIDH, MG, TSH, GFR, B1WB, ZINC #### [address] [address] CBCon 04-26-2022 Erythrocyte distribution width (RBC) [Ratio] 13.0 % Normal 11.5-14.5 [facility] ([place]) Comment on above: Performed By: #### H CV1 #### [place] [address] #### CBC, ADIFF, CK, ANEU, CMP, A1C, LIPID, VIDH, MG, TSH, GFR, B1WB, ZINC #### [address] [address] Hematocrit (Bld) [Volume fraction] 37.6 % Normal 37.0-47.0 [facility] ([place]) Comment on above: Performed By: #### H CV1 #### [address] [address] #### CBC, ADIFF, CK, ANEU, CMP, A1C, LIPID, VIDH, MG, TSH, GFR, B1WB, ZINC #### [address] [address] Hgb 12.7 G/dL Normal 12.0-16.0 [facility] ([place]) Comment on above: Performed By: #### H CV1 #### [address] [address] #### CBC, ADIFF, CK, ANEU, CMP, A1C, LIPID, VIDH, MG, TSH, GFR, B1WB, ZINC #### [address] [address] MCH (RBC) [Entitic mass] 31.4 pg High 27.0-31.2 [facility] ([place]) Comment on above: Performed By: #### H CV1 #### [address] [address] #### CBC, ADIFF, CK, ANEU, CMP, A1C, LIPID, VIDH, MG, TSH, GFR, B1WB, ZINC #### [address] [address] MCHC 33.8 G/dL Normal 33.0-37.0 [facility] ([place]) Comment on above: Performed By: #### H CV1 #### [address] [address] #### CBC, ADIFF, CK, ANEU, CMP, A1C, LIPID, VIDH, MG, TSH, GFR, B1WB, ZINC #### [address] [address] MCV (RBC) [Entitic vol] 92.9 fL Normal 80.0-94.0 [facility] ([place]) Comment on above: Performed By: #### H CV1 #### [address] [address] #### CBC, ADIFF, CK, ANEU, CMP, A1C, LIPID, VIDH, MG, TSH, GFR, B1WB, ZINC #### [address] [address] Platelet 278 10 3/mcL Normal 130-400 [facility] ([place]) Comment on above: Performed By: #### H CV1 #### [address] [address] #### CBC, ADIFF, CK, ANEU, CMP, A1C, LIPID, VIDH, MG, TSH, GFR, B1WB, ZINC #### [address] [address] Platelet mean volume (Bld) [Entitic vol] 7.2 fL Low 7.4-10.4 [facility] ([place]) Comment on above: Performed By: #### H CV1 #### [address] [address] #### CBC, ADIFF, CK, ANEU, CMP, A1C, LIPID, VIDH, MG, TSH, GFR, B1WB, ZINC #### [address] [address] RBC 4.05 10 6/mcL Low 4.20-5.40 [facility] ([place]) Comment on above: Performed By: #### H CV1 #### [address] [address] #### CBC, ADIFF, CK, ANEU, CMP, A1C, LIPID, VIDH, MG, TSH, GFR, B1WB, ZINC #### [address] [address] WBC 5.3 10 3/mcL Normal 4.6-10.8 [facility] ([place]) Comment on above: Performed By: #### H CV1 #### [place] [address] #### CBC, ADIFF, CK, ANEU, CMP, A1C, LIPID, VIDH, MG, TSH, GFR, B1WB, ZINC #### [address] [address] [facility] 04-26-2022 Albumin Level 4.1 G/dL Normal 3.5-5.0 [facility] ([place]) Comment on above: Performed By: #### H CV1 #### [place] [address] #### CBC, ADIFF, CK, ANEU, CMP, A1C, LIPID, VIDH, MG, TSH, GFR, B1WB, ZINC #### [address] [address] Albumin/Globulin [Mass ratio] 1.3 {ratio} Normal 1.1-2.5 [facility] ([place]) Comment on above: Performed By: #### H CV1 #### [place] [address] #### CBC, ADIFF, CK, ANEU, CMP, A1C, LIPID, VIDH, MG, TSH, GFR, B1WB, ZINC #### [address] [address] ALP [Catalytic activity/Vol] 85 U/L Normal 40-135 [facility] ([place]) Comment on above: Performed By: #### H CV1 #### [place] [address] #### CBC, ADIFF, CK, ANEU, CMP, A1C, LIPID, VIDH, MG, TSH, GFR, B1WB, ZINC #### [address] [address] ALT [Catalytic activity/Vol] 25 U/L Normal 14-59 [facility] ([place]) Comment on above: Performed By: #### H CV1 #### [place] [address] #### CBC, ADIFF, CK, ANEU, CMP, A1C, LIPID, VIDH, MG, TSH, GFR, B1WB, ZINC #### [address] [address] AST [Catalytic activity/Vol] 18 U/L Normal 10-40 [facility] ([place]) Comment on above: Performed By: #### H CV1 #### [address] [address] #### CBC, ADIFF, CK, ANEU, CMP, A1C, LIPID, VIDH, MG, TSH, GFR, B1WB, ZINC #### [address] [address] Bili Total 0.2 mg/dL Normal 0.2-1.0 [facility] ([place]) Comment on above: Result Comment: Use of this assay is not recommended for patients undergoing treatment with eltrombopag due to the potential for falsely elevated results. Performed By: #### H CV1 #### [place] [address] #### CBC, ADIFF, CK, ANEU, CMP, A1C, LIPID, VIDH, MG, TSH, GFR, B1WB, ZINC #### [address] [address] BUN/Creatinine Ratio 10 ratio Normal 7-27 [facility] ([place]) Comment on above: Performed By: #### H CV1 #### [address] [address] #### CBC, ADIFF, CK, ANEU, CMP, A1C, LIPID, VIDH, MG, TSH, GFR, B1WB, ZINC #### [address] [address] Calcium [Mass/Vol] 9.6 mg/dL Normal 8.4-10.2 [facility] ([place]) Comment on above: Performed By: #### H CV1 #### [place] [address] #### CBC, ADIFF, CK, ANEU, CMP, A1C, LIPID, VIDH, MG, TSH, GFR, B1WB, ZINC #### [address] [address] Chloride [Moles/Vol] 105 mmol/L Normal 98-107 [facility] ([place]) Comment on above: Performed By: #### H CV1 #### [address] [address] #### CBC, ADIFF, CK, ANEU, CMP, A1C, LIPID, VIDH, MG, TSH, GFR, B1WB, ZINC #### [address] [address] CO2 [Moles/Vol] 30 mmol/L High 22-29 [facility] ([place]) Comment on above: Performed By: #### H CV1 #### [place] [address] #### CBC, ADIFF, CK, ANEU, CMP, A1C, LIPID, VIDH, MG, TSH, GFR, B1WB, ZINC #### [address] [address] Creatinine [Mass/Vol] 1.00 mg/dL Normal 0.55-1.02 [facility] ([place]) Comment on above: Performed By: #### H CV1 #### [place] [address] #### CBC, ADIFF, CK, ANEU, CMP, A1C, LIPID, VIDH, MG, TSH, GFR, B1WB, ZINC #### [address] [address] Electrolyte Balance 5.0 mEq/L Normal 4.0-15.0 [facility] ([place]) Comment on above: Performed By: #### H CV1 #### [place] [address] #### CBC, ADIFF, CK, ANEU, CMP, A1C, LIPID, VIDH, MG, TSH, GFR, B1WB, ZINC #### [address] [address] Globulin 3.1 G/dL Normal [facility] ([place]) Comment on above: Performed By: #### H CV1 #### [place] [address] #### CBC, ADIFF, CK, ANEU, CMP, A1C, LIPID, VIDH, MG, TSH, GFR, B1WB, ZINC #### [address] [address] Glucose [Mass/Vol] 69 mg/dL Low 70-105 [facility] ([place]) Comment on above: Performed By: #### H CV1 #### [address] [address] #### CBC, ADIFF, CK, ANEU, CMP, A1C, LIPID, VIDH, MG, TSH, GFR, B1WB, ZINC #### [address] [address] Potassium [Moles/Vol] 5.0 mmol/L Normal 3.5-5.1 [facility] ([place]) Comment on above: Performed By: #### H CV1 #### [address] [address] #### CBC, ADIFF, CK, ANEU, CMP, A1C, LIPID, VIDH, MG, TSH, GFR, B1WB, ZINC #### [address] [address] Sodium [Moles/Vol] 140 mmol/L Normal 136-145 [facility] ([place]) Comment on above: Performed By: #### H CV1 #### [address] [address] #### CBC, ADIFF, CK, ANEU, CMP, A1C, LIPID, VIDH, MG, TSH, GFR, B1WB, ZINC #### [address] [address] Total Protein 7.2 G/dL Normal 6.4-8.2 [facility] ([place] Comment on above: Performed By: #### H CV1 #### [address] [address] #### CBC, ADIFF, CK, ANEU, CMP, A1C, LIPID, VIDH, MG, TSH, GFR, B1WB, ZINC #### [address] [address] Urea nitrogen [Mass/Vol] 10 mg/dL Normal 7-18 [facility] ([place] Comment on above: Performed By: #### H CV1 #### [address] [address] #### CBC, ADIFF, CK, ANEU, CMP, A1C, LIPID, VIDH, MG, TSH, GFR, B1WB, ZINC #### [address] [address] [place] 04-26-2022 Ferritin [Mass/Vol] 17.0 ng/mL Normal 8.0-252.0 [facility] ([place]) Comment on above: Performed By: #### H CV1 #### [address] [address] #### CBC, ADIFF, CK, ANEU, CMP, A1C, LIPID, VIDH, MG, TSH, GFR, B1WB, ZINC #### [address] [address] FOLon 04-26-2022 Folate 11.20 ng/mL Normal 5.38-24.00 [facility] ([place]) Comment on above: Performed By: #### H CV1 #### [address] [address] #### CBC, ADIFF, CK, ANEU, CMP, A1C, LIPID, VIDH, MG, TSH, GFR, B1WB, ZINC #### [address] [address] LABORATORYOrdered By: Nir Hackett on 04-26-2022 Albumin BCP dye [Mass/Vol] 4.1 G/dL Invalid Interpretation Code 3.5 - 5.0 G/dL AO ADM SS Albumin/Globulin [Mass ratio] 1.3 {ratio} Invalid Interpretation Code 1.1 - 2.5 ratio AO ADM SS ALP [Catalytic activity/Vol] 85 U/L Invalid Interpretation Code 40 - 135 U/L AO ADM SS ALT With P-5'-P [Catalytic activity/Vol] 25 U/L Invalid Interpretation Code 14 - 59 U/L AO ADM SS AST With P-5'-P [Catalytic activity/Vol] 18 U/L Invalid Interpretation Code 10 - 40 U/L AO ADM SS Basophil, Absolute 0.0 103/mcL Invalid Interpretation Code 0.0 - 0.2 10^3/mcL AO Workflow SS Basophils/100 WBC (Bld) 0.7 % Invalid Interpretation Code 0.0 - 2.5 % AO Workflow SS Bilirubin [Mass/Vol] 0.2 mg/dL Invalid Interpretation Code 0.2 - 1.0 mg/dL AO ADM SS Calcium [Mass/Vol] 9.6 mg/dL Invalid Interpretation Code 8.4 - 10.2 mg/dL AO ADM SS Chloride [Moles/Vol] 105 mmol/L Invalid Interpretation Code 98 - 107 mmol/L AO ADM SS Cholesterol [Mass/Vol] 172 mg/dL Invalid Interpretation Code 0 - 200 mg/dL AO ADM SS Cholesterol in HDL [Mass/Vol] 62 mg/dL Invalid Interpretation Code 40 - 60 mg/dL AO ADM SS Cholesterol in LDL [Mass/Vol] 78 mg/dL Invalid Interpretation Code 0 - 130 mg/dL AO ADM SS CO2 [Moles/Vol] 30 mmol/L Invalid Interpretation Code 22 - 29 mmol/L AO ADM SS Creatinine [Mass/Vol] 1.00 mg/dL Invalid Interpretation Code 0.55 - 1.02 mg/dL AO ADM SS Electrolyte Balance 5.0 mEq/L Invalid Interpretation Code 4.0 - 15.0 mEq/L AO ADM SS Eosinophil, Absolute 0.2 103/mcL Invalid Interpretation Code 0.0 - 0.4 10^3/mcL AO Workflow SS Eosinophils/100 WBC (Bld) 3.2 % Invalid Interpretation Code 0.0 - 7.0 % AO Workflow SS Erythrocyte distribution width (RBC) [Ratio] 13.0 % Invalid Interpretation Code 11.5 - 14.5 % AO Workflow SS Ferritin [Mass/Vol] 17.0 ng/mL Invalid Interpretation Code 8.0 - 252.0 ng/mL AO ADM SS Globulin 3.1 G/dL Invalid Interpretation Code AO ADM SS Glucose [Mass/Vol] 69 mg/dL Invalid Interpretation Code 70 - 105 mg/dL AO ADM SS Hematocrit (Bld) [Volume fraction] 37.6 % Invalid Interpretation Code 37.0 - 47.0 % AO Workflow SS Hemoglobin (Bld) [Mass/Vol] 12.7 G/dL Invalid Interpretation Code 12.0 - 16.0 G/dL AO Workflow SS Lymphocyte, Absolute 1.8 103/mcL Invalid Interpretation Code 0.8 - 3.9 10^3/mcL AO Workflow SS Lymphocytes/100 WBC (Bld) 33.7 % Invalid Interpretation Code 10.0 - 50.0 % AO Workflow SS MCH (RBC) [Entitic mass] 31.4 pg Invalid Interpretation Code 27.0 - 31.2 pg AO Workflow SS MCHC 33.8 G/dL Invalid Interpretation Code 33.0 - 37.0 G/dL AO Workflow SS MCV (RBC) [Entitic vol] 92.9 fL Invalid Interpretation Code 80.0 - 94.0 fL AO Workflow SS Monocyte, Absolute 0.5 103/mcL Invalid Interpretation Code 0.2 - 1.0 10^3/mcL AO Workflow SS Monocytes/100 WBC (Bld) 10.3 % Invalid Interpretation Code 1.7 - 13.0 % AO Workflow SS Neutrophil, Absolute 2.8 103/mcL Invalid Interpretation Code 2.9 - 6.2 10^3/mcL AO Workflow SS Neutrophils/100 WBC (Bld) 52.1 % Invalid Interpretation Code 37.0 - 80.0 % AO Workflow SS Platelet mean volume (Bld) [Entitic vol] 7.2 fL Invalid Interpretation Code 7.4 - 10.4 fL AO Workflow SS Platelets (Bld) [#/Vol] 278 103/mcL Invalid Interpretation Code 130 - 400 10^3/mcL AO Workflow SS Potassium [Moles/Vol] 5.0 mmol/L Invalid Interpretation Code 3.5 - 5.1 mmol/L AO ADM SS Protein [Mass/Vol] 7.2 G/dL Invalid Interpretation Code 6.4 - 8.2 G/dL AO ADM SS RBC (Bld) [#/Vol] 4.05 106/mcL Invalid Interpretation Code 4.20 - 5.40 10^6/mcL AO Workflow SS Sodium [Moles/Vol] 140 mmol/L Invalid Interpretation Code 136 - 145 mmol/L AO ADM SS Triglyceride [Mass/Vol] 159 mg/dL Invalid Interpretation Code 0 - 150 mg/dL AO ADM SS Urea nitrogen [Mass/Vol] 10 mg/dL Invalid Interpretation Code 7 - 18 mg/dL AO ADM SS Urea nitrogen/Creatinine [Mass ratio] 10 ratio Invalid Interpretation Code 7 - 27 ratio AO ADM SS Vit. D 25-Hydroxy 28.9 ng/mL Invalid Interpretation Code AO ADM SS WBC (Bld) [#/Vol] 5.3 103/mcL Invalid Interpretation Code 4.6 - 10.8 10^3/mcL AO Workflow SS LABORATORYOrdered By: SYSTEM SYSTEM on 04-26-2022 Cobalamin (Vitamin B12) [Mass/Vol] 328 pg/mL Invalid Interpretation Code 211 - 911 pg/mL AH ADM SS Folate [Mass/Vol] 11.20 ng/mL Invalid Interpretation Code 5.38 - 24.00 ng/mL AH ADM SS GFR 71 ml/min/1.73sqm Invalid Interpretation Code AO Chemistry S GFR Non- 59 ml/min/1.73sqm Invalid Interpretation Code AO Chemistry S LABORATORYOrdered By: April White on 04-26-2022 HbA1c (Bld) [Mass fraction] 5.7 % Invalid Interpretation Code 4.3 - 6.4 % AO ADM SS LIPIDon 04-26-2022 Cholesterol [Mass/Vol] 172 mg/dL Normal 0-200 [facility] ([place]) Comment on above: Result Comment: Chol esterol Reference Interval: Less than 200 Desirable 200-239 Borderline high risk 240 and above High risk Performed By: #### H CV1 #### [place] [address] #### CBC, ADIFF, CK, ANEU, CMP, A1C, LIPID, VIDH, MG, TSH, GFR, B1WB, ZINC #### [address] [address] Cholesterol in HDL [Mass/Vol] 62 mg/dL High 40-60 [facility] ([place]) Comment on above: Performed By: #### H CV1 #### [place] [address] #### CBC, ADIFF, CK, ANEU, CMP, A1C, LIPID, VIDH, MG, TSH, GFR, B1WB, ZINC #### [address] [address] Cholesterol in LDL [Mass/Vol] 78 mg/dL Normal 0-130 [facility] ([place]) Comment on above: Performed By: #### H CV1 #### [address] [address] #### CBC, ADIFF, CK, ANEU, CMP, A1C, LIPID, VIDH, MG, TSH, GFR, B1WB, ZINC #### [address] [place] [address] Triglyceride [Mass/Vol] 159 mg/dL High 0-150 [facility] ([place]) Comment on above: Result Comment: Trig lyceride Reference Interval: Less than 150 Normal 150-199 Borderline high risk 200-499 High risk 500 or higher Very high risk Performed By: #### H CV1 #### [address] [address] #### CBC, ADIFF, CK, ANEU, CMP, A1C, LIPID, VIDH, MG, TSH, GFR, B1WB, ZINC #### [address] [address] VIDHon 04-26-2022 Vit. D 25-Hydroxy 28.9 ng/mL Normal [facility] ([place]) Comment on above: Result Comment: Inte rpretive Values Based on Total 25(OH) Vitamin D: Deficient <20 ng/mL Insufficient 20 - <30 ng/mL Sufficient 30-100 ng/mL Performed By: #### H CV1 #### [place] [address] #### CBC, ADIFF, CK, ANEU, CMP, A1C, LIPID, VIDH, MG, TSH, GFR, B1WB, ZINC #### [address] [address] .Auto Diffon 04-15-2022 Basophil, Absolute 0.0 10 3/mcL Normal 0.0-0.2 [facility] ([place]) Comment on above: Performed By: #### A HUMBERTO CONTEH #### [address] [address] Basophils/100 WBC (Bld) 0.7 % Normal 0.0-2.5 [facility] ([place]) Comment on above: Performed By: #### A HUMBERTO CONTEH #### [address] [address] Eosinophil, Absolute 0.2 10 3/mcL Normal 0.0-0.4 [facility] ([place]) Comment on above: Performed By: #### A HUMBERTO CONTEH #### [address] [address] Eosinophils/100 WBC (Bld) 3.1 % Normal 0.0-7.0 [facility] ([place]) Comment on above: Performed By: #### A WERO TROPHS #### [address] [address] Lymphocyte, Absolute 1.9 10 3/mcL Normal 0.8-3.9 [facility] ([place]) Comment on above: Performed By: #### A WERO TROPHS #### [address] [address] Lymphocytes/100 WBC (Bld) 30.5 % Normal 10.0-50.0 [facility] ([place]) Comment on above: Performed By: #### A KRISTAL CONTEHS #### [address] [address] Monocyte, Absolute 0.5 10 3/mcL Normal 0.2-1.0 [facility] ([place]) Comment on above: Performed By: #### A WERO TROPHS #### [address] [address] Monocytes/100 WBC (Bld) 8.5 % Normal 1.7-13.0 [facility] ([place]) Comment on above: Performed By: #### A WERO TROPHS #### [address] [address] Neutrophils/100 WBC (Bld) 57.2 % Normal 37.0-80.0 [facility] ([place]) Comment on above: Performed By: #### A WERO TROPHS #### [address] [address] .GFRon 04-15-2022 GFR 77 ml/min/1.73sqm Normal [facility] ([place]) Comment on above: Result Comment: GFR Population mean for , Non- Americans Ages 20-29 = 116 mL/min/1.73 sq.m. Ages 30-39 = 107 mL/min/1.73 sq.m. Ages 40-49 = 99 mL/min/1.73 sq.m. Ages 50-59 = 93 mL/min/1.73 sq.m. Ages 60-69 = 85 mL/min/1.73 sq.m. Ages 70+ = 75 mL/min/1.73 sq.m. Chronic Kidney Disease: Less than 60 mL/min/1.73 square meters End Stage Renal Disease: Less than 15 mL/min/1.73 square meters Performed By: #### H CV1 #### [address] [address] #### CBC, ADIFF, CK, ANEU, CMP, A1C, LIPID, VIDH, MG, TSH, GFR, B1WB, ZINC #### [address] [address] GFR Non- 64 ml/min/1.73sqm Normal [facility] ([place]) Comment on above: Result Comment: GFR Population mean for , Non- Americans Ages 20-29 = 116 mL/min/1.73 sq.m. Ages 30-39 = 107 mL/min/1.73 sq.m. Ages 40-49 = 99 mL/min/1.73 sq.m. Ages 50-59 = 93 mL/min/1.73 sq.m. Ages 60-69 = 85 mL/min/1.73 sq.m. Ages 70+ = 75 mL/min/1.73 sq.m. Chronic Kidney Disease: Less than 60 mL/min/1.73 square meters End Stage Renal Disease: Less than 15 mL/min/1.73 square meters Performed By: #### H CV1 #### [place] [address] #### CBC, ADIFF, CK, ANEU, CMP, A1C, LIPID, VIDH, MG, TSH, GFR, B1WB, ZINC #### [address] [address] .NEUABSon 04-15-2022 Neutrophil, Absolute 3.5 10 3/mcL Normal 2.9-6.2 [facility] ([place]) Comment on above: Performed By: #### A HUMBERTO CONTEH #### [address] [address] A1Con 04-15-2022 HbA1c (Bld) [Mass fraction] 5.4 % Normal 4.3-6.4 [facility] ([place]) Comment on above: Performed By: #### H CV1 #### [place] [address] #### CBC, ADIFF, CK, ANEU, CMP, A1C, LIPID, VIDH, MG, TSH, GFR, B1WB, ZINC #### [address] [address] CBCon 04-15-2022 Erythrocyte distribution width (RBC) [Ratio] 12.8 % Normal 11.5-14.5 [facility] ([place]) Comment on above: Performed By: #### A HUMBERTO CONTEH #### [address] [address] Hematocrit (Bld) [Volume fraction] 38.3 % Normal 37.0-47.0 [facility] ([place]) Comment on above: Performed By: #### A HUMBERTO CONTEH #### [address] [address] Hgb 13.1 G/dL Normal 12.0-16.0 [facility] ([place]) Comment on above: Performed By: #### A HUMBERTO CONTEH #### [address] [address] MCH (RBC) [Entitic mass] 31.4 pg High 27.0-31.2 [facility] ([place]) Comment on above: Performed By: #### A HUMBERTO CONTEH #### [address] [address] MCHC 34.1 G/dL Normal 33.0-37.0 [facility] ([place]) Comment on above: Performed By: #### A HUMBERTO CONTEH #### [address] [address] MCV (RBC) [Entitic vol] 92.1 fL Normal 80.0-94.0 [facility] ([place]) Comment on above: Performed By: #### HUMBERTO WADE #### [address] [address] Platelet 313 10 3/mcL Normal 130-400 [facility] ([place]) Comment on above: Performed By: #### A HUMBERTO CONTEH #### [address] [address] Platelet mean volume (Bld) [Entitic vol] 7.3 fL Low 7.4-10.4 [facility] ([place]) Comment on above: Performed By: #### A HUMBERTO CONTEH #### [address] [address] RBC 4.16 10 6/mcL Low 4.20-5.40 [facility] ([place]) Comment on above: Performed By: #### A HUMBERTO CONTEH #### [address] [address] WBC 6.1 10 3/mcL Normal 4.6-10.8 [facility] ([place]) Comment on above: Performed By: #### A HUMBERTO CONTEH #### [address] [address] CMPon 04-15-2022 Albumin Level 4.2 G/dL Normal 3.5-5.0 [facility] ([place]) Comment on above: Performed By: #### A HUMBERTO CONTEH #### [address] [address] Albumin/Globulin [Mass ratio] 1.4 {ratio} Normal 1.1-2.5 [facility] ([place]) Comment on above: Performed By: #### A KRISTAL CONTEHS #### [address] [address] ALP [Catalytic activity/Vol] 84 U/L Normal 40-135 [facility] ([place]) Comment on above: Performed By: #### A HUMBERTO CONTEH #### [address] [address] ALT [Catalytic activity/Vol] 28 U/L Normal 14-59 [facility] ([place]) Comment on above: Performed By: #### A HUMBERTO CONTEH #### [address] [address] AST [Catalytic activity/Vol] 18 U/L Normal 10-40 [facility] ([place]) Comment on above: Performed By: #### A WERO TROPHS #### [address] [address] Bili Total 0.3 mg/dL Normal 0.2-1.0 [facility] ([place] Comment on above: Result Comment: Use of this assay is not recommended for patients undergoing treatment with eltrombopag due to the potential for falsely elevated results. Performed By: #### A WERO TROPHS #### [address] [address] BUN/Creatinine Ratio 17 ratio Normal 7-27 [facility] ([place]) Comment on above: Performed By: #### A WERO TROPHS #### [address] [address] Calcium [Mass/Vol] 9.5 mg/dL Normal 8.4-10.2 [facility] ([place]) Comment on above: Performed By: #### A WERO TROPHS #### [address] [address] Chloride [Moles/Vol] 103 mmol/L Normal 98-107 [facility] ([place]) Comment on above: Performed By: #### A WERO TROPHS #### [address] [address] CO2 [Moles/Vol] 30 mmol/L High 22-29 [facility] ([place] Comment on above: Performed By: #### A WERO TROPHS #### [address] [address] Creatinine [Mass/Vol] 0.93 mg/dL Normal 0.55-1.02 [facility] ([place] Comment on above: Performed By: #### A WERO TROPHS #### [address] [address] Electrolyte Balance 8.0 mEq/L Normal 4.0-15.0 [facility] ([place]) Comment on above: Performed By: #### A WERO, TROPHS #### [address] [address] Globulin 3.1 G/dL Normal [facility] ([place]) Comment on above: Performed By: #### A WERO, TROPHS #### [address] [address] Glucose [Mass/Vol] 84 mg/dL Normal 70-105 [facility] ([place]) Comment on above: Performed By: #### A WERO TROPHS #### [address] [address] Potassium [Moles/Vol] 4.9 mmol/L Normal 3.5-5.1 [facility] ([place] Comment on above: Performed By: #### A WERO TROPHS #### [address] [address] Sodium [Moles/Vol] 141 mmol/L Normal 136-145 [facility] ([place] Comment on above: Performed By: #### A WERO TROPHS #### [address] [address] Total Protein 7.3 G/dL Normal 6.4-8.2 [facility] ([place] Comment on above: Performed By: #### A WERO TROPHS #### [address] [address] Urea nitrogen [Mass/Vol] 16 mg/dL Normal 7-18 [facility] ([place] Comment on above: Performed By: #### A WERO TROPHS #### [address] [address] LABORATORYOrdered By: Paris Hernandez on 04-15-2022 Albumin BCP dye [Mass/Vol] 4.2 G/dL Invalid Interpretation Code 3.5 - 5.0 G/dL AO ADM SS Albumin/Globulin [Mass ratio] 1.4 {ratio} Invalid Interpretation Code 1.1 - 2.5 ratio AO ADM SS ALP [Catalytic activity/Vol] 84 U/L Invalid Interpretation Code 40 - 135 U/L AO ADM SS ALT With P-5'-P [Catalytic activity/Vol] 28 U/L Invalid Interpretation Code 14 - 59 U/L AO ADM SS AST With P-5'-P [Catalytic activity/Vol] 18 U/L Invalid Interpretation Code 10 - 40 U/L AO ADM SS Basophil, Absolute 0.0 103/mcL Invalid Interpretation Code 0.0 - 0.2 10^3/mcL AO Workflow SS Basophils/100 WBC (Bld) 0.7 % Invalid Interpretation Code 0.0 - 2.5 % AO Workflow SS Bilirubin [Mass/Vol] 0.3 mg/dL Invalid Interpretation Code 0.2 - 1.0 mg/dL AO ADM SS Calcium [Mass/Vol] 9.5 mg/dL Invalid Interpretation Code 8.4 - 10.2 mg/dL AO ADM SS Chloride [Moles/Vol] 103 mmol/L Invalid Interpretation Code 98 - 107 mmol/L AO ADM SS CO2 [Moles/Vol] 30 mmol/L Invalid Interpretation Code 22 - 29 mmol/L AO ADM SS Creatinine [Mass/Vol] 0.93 mg/dL Invalid Interpretation Code 0.55 - 1.02 mg/dL AO ADM SS Electrolyte Balance 8.0 mEq/L Invalid Interpretation Code 4.0 - 15.0 mEq/L AO ADM SS Eosinophil, Absolute 0.2 103/mcL Invalid Interpretation Code 0.0 - 0.4 10^3/mcL AO Workflow SS Eosinophils/100 WBC (Bld) 3.1 % Invalid Interpretation Code 0.0 - 7.0 % AO Workflow SS Erythrocyte distribution width (RBC) [Ratio] 12.8 % Invalid Interpretation Code 11.5 - 14.5 % AO Workflow SS Globulin 3.1 G/dL Invalid Interpretation Code AO ADM SS Glucose [Mass/Vol] 84 mg/dL Invalid Interpretation Code 70 - 105 mg/dL AO ADM SS HbA1c (Bld) [Mass fraction] 5.4 % Invalid Interpretation Code 4.3 - 6.4 % AO ADM SS Hematocrit (Bld) [Volume fraction] 38.3 % Invalid Interpretation Code 37.0 - 47.0 % AO Workflow SS Hemoglobin (Bld) [Mass/Vol] 13.1 G/dL Invalid Interpretation Code 12.0 - 16.0 G/dL AO Workflow SS Lymphocyte, Absolute 1.9 103/mcL Invalid Interpretation Code 0.8 - 3.9 10^3/mcL AO Workflow SS Lymphocytes/100 WBC (Bld) 30.5 % Invalid Interpretation Code 10.0 - 50.0 % AO Workflow SS MCH (RBC) [Entitic mass] 31.4 pg Invalid Interpretation Code 27.0 - 31.2 pg AO Workflow SS MCHC 34.1 G/dL Invalid Interpretation Code 33.0 - 37.0 G/dL AO Workflow SS MCV (RBC) [Entitic vol] 92.1 fL Invalid Interpretation Code 80.0 - 94.0 fL AO Workflow SS Monocyte, Absolute 0.5 103/mcL Invalid Interpretation Code 0.2 - 1.0 10^3/mcL AO Workflow SS Monocytes/100 WBC (Bld) 8.5 % Invalid Interpretation Code 1.7 - 13.0 % AO Workflow SS Neutrophil, Absolute 3.5 103/mcL Invalid Interpretation Code 2.9 - 6.2 10^3/mcL AO Workflow SS Neutrophils/100 WBC (Bld) 57.2 % Invalid Interpretation Code 37.0 - 80.0 % AO Workflow SS Platelet mean volume (Bld) [Entitic vol] 7.3 fL Invalid Interpretation Code 7.4 - 10.4 fL AO Workflow SS Platelets (Bld) [#/Vol] 313 103/mcL Invalid Interpretation Code 130 - 400 10^3/mcL AO Workflow SS Potassium [Moles/Vol] 4.9 mmol/L Invalid Interpretation Code 3.5 - 5.1 mmol/L AO ADM SS Protein [Mass/Vol] 7.3 G/dL Invalid Interpretation Code 6.4 - 8.2 G/dL AO ADM SS RBC (Bld) [#/Vol] 4.16 106/mcL Invalid Interpretation Code 4.20 - 5.40 10^6/mcL AO Workflow SS Sodium [Moles/Vol] 141 mmol/L Invalid Interpretation Code 136 - 145 mmol/L AO ADM SS Urea nitrogen [Mass/Vol] 16 mg/dL Invalid Interpretation Code 7 - 18 mg/dL AO ADM SS Urea nitrogen/Creatinine [Mass ratio] 17 ratio Invalid Interpretation Code 7 - 27 ratio AO ADM SS WBC (Bld) [#/Vol] 6.1 103/mcL Invalid Interpretation Code 4.6 - 10.8 10^3/mcL AO Workflow SS LABORATORYOrdered By: SYSTEM SYSTEM on 04-15-2022 GFR 77 ml/min/1.73sqm Invalid Interpretation Code AO Chemistry S GFR Non- 64 ml/min/1.73sqm Invalid Interpretation Code AO Chemistry S MA MAMMOGRAM DIAGNOSTIC BILA TERAL W/TOMOon 02-02-2022 MA MAMMOGRAM DIAGNOSTIC BILATERAL W/JUMA ORIGINAL FROM: [facility] [place] [address] [place], [place] [address] PROCEDURE FOR: AMANDA GRUBBS [address] [place] [address] Home: PID#: [id number] Exam#: [id number] : 1970 Age: 51 TO: FRANKY PEARSON DO [address] [place] [address] Fax: NO FAX EXAMINATION: DIAGNOSTIC BILATERAL MAMMOGRAM WITH TOMOSYNTHESIS, 02/02/2022 10:07 am TECHNIQUE: Tomosynthesis was performed as part of the diagnostic bilateral mammogram. 2D standard and 3D tomosynthesis combination imaging performed. Current study was also evaluated with a Computer Aided Detection (CAD) system. COMPARISON: 12/10/2020, 01/29/2019 HISTORY: ORDERING SYSTEM PROVIDED HISTORY: Reason for Exam: follow up breast imaging Six-month follow-up right breast mass 10 o'clock FINDINGS: BREAST DENSITY: Scattered fibroglandular tissue There is a 6 mm oval mass in the right breast at 10 o'clock posterior depth. This is not significantly changed from the prior exam. This is confirmed on additional tomographic views. No other significant masses, calcifications, or other findings. IMPRESSION: The 6 mm oval mass in the right breast at 10 o'clock appears indeterminate. A right breast ultrasound will be performed today and reported separately. BIRADS: MAMMOGRAM BI-RADS: 0: Needs addl evaluation RECALL: immediate RECALL TYPE: Right US LETTER SENT: Abnormal-Needs additional work up BI-RADS 0 Interpreted by: Sumanth Swanson MD Preliminary Report By: Sumanth Swanson MD Electronically signed By Sumanth Swanson MD Dictated Date: 02/02/2022 11:27:16 AM Prelim Date: 02/02/2022 11:29:03 AM Sign Date: 02/02/2022 11:29:03 AM Ordering Provider: FRANKY PEARSON CLINICAL: ASYMMETRIC DENSITY RIGHT BREAST. Community Living Specialist: JENNIFER MARTINEZ RT(R) (M) letter sent: Abnormal-Needs additional work up BI-RADS 0 Mammogram BI-RADS: 0 Indeterminate Normal [facility] ([place]) US BREAST RIGHT LIMITEDon US BREAST RIGHT LIMITED ORIGINAL FROM: [address] [address] PROCEDURE FOR: AMANDA GRUBBS [address] [place] [address] Home: PID#: [id number] Exam#: [id number] : 1970 Age: 51 TO: FRANKY PEARSON DO [facility] [address] [place] [address] Fax: NO FAX EXAMINATION: ULTRASOUND OF THE RIGHT BREAST 02/02/2022 9:53 am TECHNIQUE: Color flow and real-time targeted ultrasound of the right breast 10 o'clock were performed. COMPARISON: 06/20/2021 HISTORY: ORDERING SYSTEM PROVIDED HISTORY: Reason for Exam: follow up abnormal mammogram and US Six-month follow-up right breast mass 10 o'clock FINDINGS: There is a 4 mm round circumscribed hypoechoic mass in the right breast at 10 o'clock middle depth 7 cm from the nipple. This is not significantly changed from the prior exam. There is no vascularity present. This correlates with the mammographic finding. IMPRESSION: The 4 mm round mass in the right breast at 10 o'clock appears probably benign. A 6 month follow up right ultrasound is recommended to demonstrate stability. BIRADS: MAMMOGRAM BI-RADS: 3: Probably benign RECALL: 6 month follow-up RECALL TYPE: Right US LETTER SENT: Probably Benign BI-RADS 3 Interpreted by: Sumanth Swanson MD Preliminary Report By: Sumanth Swanson MD Electronically signed By Sumanth Swanson MD Dictated Date: 02/02/2022 11:29:13 AM Prelim Date: 02/02/2022 11:31:05 AM Sign Date: 02/02/2022 11:31:05 AM Ordering Provider: FRANKY PEARSON CLINICAL: 6 MONTHS FOLLOW-UP. Community Living Specialist: MANUEL CHIRINOS RT,[facility] letter sent: Probably Benign BI-RADS 3 Ultrasound BI-RADS: 3 Probably benign Normal [facility] ([place] CT THORAX W/O CONTRASTon CT THORAX W/O CONTRAST ORIGINAL EXAMINATION: CT CHEST WITHOUT CONTRAST 12/02/2021 9:23 am HISTORY: ORDERING SYSTEM PROVIDED HISTORY: Reason for Exam: lung nodules, subcarinal/paratracheal adenopathy. TECHNIQUE: Multiple-row detector helical CT examination of the thorax without IV contrast. Axial, sagittal, and coronal reconstructed images. This exam was performed according to our departmental dose optimization program, and includes the following measures where applicable: automated exposure control, adjustment of the mAs and/or kVp according to patient size and/or exam, and an iterative reconstruction algorithm. COMPARISON: 07/04/2021 FINDINGS: The heart is normal in size. No coronary artery calcifications identified. No pericardial effusion. The great vessels are normal in caliber. Subcarinal space lymphadenopathy measures up to 2.1 cm in short axis, unchanged. Right paratracheal space adenopathy measures up to 1.4 cm in short axis, also unchanged. A left upper lobe nodule measures 5 mm and is unchanged. An additional 4-5 mm left upper lobe nodule on image 31 is unchanged. 4 mm subpleural nodule in the left upper lobe on image 35 is unchanged. Setter Out right upper lobe nodule measures 3 mm on image 20, unchanged. A financial services representative nodule along the right minor fissure is 5 mm and unchanged. Other scattered lung nodules are unchanged.. There is no pneumothorax or pleural fluid. No endotracheal or endobronchial lesion identified. No aggressive osseous lesions identified. Multilevel degenerative changes identified in the spine. Gastric bypass changes noted. There are cholecystectomy changes visible. IMPRESSION: Lymphadenopathy is unchanged. An additional six-month follow-up advised Scattered lung nodules are unchanged. These lesions should be reassessed in 6-12 month Interpreted by: Zane Mejia MD Preliminary Report By: Zane Mejia MD Electronically signed By Zane Mejia MD Dictated Date: 12/02/2021 2:55:42 PM Prelim Date: 12/02/2021 3:00:41 PM Sign Date: 12/02/2021 3:00:41 PM Ordering Provider: FRANKY PEARSON Normal [facility]) LABORATORYOrdered By: Nir Hackett on 05-22-2021 ADMITTED TO INTENSIVE CARE UNIT FOR CONDITION OF INTEREST:FIND:PT:^PA TIENT:ORD: No (05/22/21 6:52 AM) Invalid Interpretation Code AO Auto Urine SS EMPLOYED IN A HEALTHCARE SETTING:FIND:PT:^PAT IENT:ORD: No (05/22/21 6:52 AM) Invalid Interpretation Code AO Auto Urine SS FIRST TEST FOR CONDITION OF INTEREST:FIND:PT:^PA TIENT:ORD: No (05/22/21 6:52 AM) Invalid Interpretation Code AO Auto Urine SS HAS SYMPTOMS RELATED TO CONDITION OF INTEREST:FIND:PT:^PA TIENT:ORD: No (05/22/21 6:52 AM) Invalid Interpretation Code AO Auto Urine SS Illness or injury onset date and time [id number] Invalid Interpretation Code AO Auto Urine SS Patient was hospitalized because of this condition No (05/22/21 6:52 AM) Invalid Interpretation Code AO Auto Urine SS status Not (05/22/21 6:52 AM) Invalid Interpretation Code AO Auto Urine SS RESIDES IN A CONGREGATE CARE SETTING:FIND:PT:^PAT IENT:ORD: No (05/22/21 6:52 AM) Invalid Interpretation Code AO Auto Urine SS SARS-CoV-2 (COVID-19) RNA SANTINO+probe Ql (Resp) Negative (05/22/21 6:52 AM) Invalid Interpretation Code Negative AO Auto Urine SS SARS-CoV-2 (COVID-19) RNA SANTINO+probe Ql (Unsp spec) Negative results do not preclude SARS-CoV-2 infection and should not be used as the sole basis for patient management decisions. Negative results must be combined with clinical observations, patient history, and epidemiological information.There is a risk of false negative values resulting from improperly collected, transported, or handled specimens.There is a risk of false negative values due to the presence of sequence variants in the pathogen targets of the assay, procedural errors, amplification inhibitors in specimens, or inadequate numbers of organisms for amplification.SAMUEL SARS-CoV-2 Assay is a Real-Time reverse-transcriptase polymerase chain reaction (RT-PCR) based qualitative in vitro diagnostic test intended for the qualitative detection of nucleic acid from the SARS-CoV-2 in nasopharyngeal swab specimens collected from individuals suspected of COVID-19 by their healthcare provider. Testing is limited to laboratories certified under the Clinical Laboratory Improvement Amendments of 1988 (CLIA), 42 U.S.C. 263a, to perform moderate and high complexity tests. Invalid Interpretation Code AO Auto Urine SS LABORATORYOrdered By: Meghna Monaco on 05-22-2021 Albumin BCP dye [Mass/Vol] 4.2 G/dL Invalid Interpretation Code 3.5 - 5.0 G/dL AO ADM SS Albumin/Globulin [Mass ratio] 1.2 {ratio} Invalid Interpretation Code 1.1 - 2.5 ratio AO ADM SS ALP [Catalytic activity/Vol] 66 U/L Invalid Interpretation Code 40 - 135 U/L AO ADM SS ALT With P-5'-P [Catalytic activity/Vol] 25 U/L Invalid Interpretation Code 14 - 59 U/L AO ADM SS AST With P-5'-P [Catalytic activity/Vol] 19 U/L Invalid Interpretation Code 10 - 40 U/L AO ADM SS Basophil, Absolute 0.00 103/mcL Invalid Interpretation Code 0.00 - 0.19 10^3/mcL AO Auto Heme SS Basophils/100 WBC (Bld) 0.5 % Invalid Interpretation Code 0.0 - 2.5 % AO Auto Heme SS Bilirubin [Mass/Vol] 0.3 mg/dL Invalid Interpretation Code 0.2 - 1.0 mg/dL AO ADM SS Calcium [Mass/Vol] 9.1 mg/dL Invalid Interpretation Code 8.4 - 10.2 mg/dL AO ADM SS Chloride [Moles/Vol] 105 mmol/L Invalid Interpretation Code 98 - 107 mmol/L AO ADM SS CO2 [Moles/Vol] 26 mmol/L Invalid Interpretation Code 22 - 29 mmol/L AO ADM SS Creatinine [Mass/Vol] 0.75 mg/dL Invalid Interpretation Code 0.55 - 1.02 mg/dL AO ADM SS Electrolyte Balance 11.0 mEq/L Invalid Interpretation Code AO ADM SS Eosinophil, Absolute 0.10 103/mcL Invalid Interpretation Code 0.00 - 0.40 10^3/mcL AO Auto Heme SS Eosinophils/100 WBC (Bld) 1.5 % Invalid Interpretation Code 0.0 - 7.0 % AO Auto Heme SS Erythrocyte distribution width (RBC) [Ratio] 13.5 % Invalid Interpretation Code 11.5 - 14.5 % AO Auto Heme SS Globulin 3.6 G/dL Invalid Interpretation Code AO ADM SS Glucose [Mass/Vol] 105 mg/dL Invalid Interpretation Code 70 - 105 mg/dL AO ADM SS Hematocrit (Bld) [Volume fraction] 39.2 % Invalid Interpretation Code 37.0 - 47.0 % AO Auto Heme SS Hemoglobin (Bld) [Mass/Vol] 12.9 G/dL Invalid Interpretation Code 12.0 - 16.0 G/dL AO Auto Heme SS Lipase [Catalytic activity/Vol] 256 U/L Invalid Interpretation Code 73 - 393 U/L AO ADM SS Lymphocyte, Absolute 2.10 103/mcL Invalid Interpretation Code 0.77 - 3.85 10^3/mcL AO Auto Heme SS Lymphocytes/100 WBC (Bld) 25.9 % Invalid Interpretation Code 10.0 - 50.0 % AO Auto Heme SS MCH (RBC) [Entitic mass] 30.2 pg Invalid Interpretation Code 27.0 - 31.2 pg AO Auto Heme SS MCHC (RBC) [Mass/Vol] 32.9 G/dL Invalid Interpretation Code 33.0 - 37.0 G/dL AO Auto Heme SS MCV (RBC) [Entitic vol] 91.8 fL Invalid Interpretation Code 80.0 - 94.0 fL AO Auto Heme SS Monocyte, Absolute 0.60 103/mcL Invalid Interpretation Code 0.15 - 1.00 10^3/mcL AO Auto Heme SS Monocytes/100 WBC (Bld) 7.3 % Invalid Interpretation Code 1.7 - 13.0 % AO Auto Heme SS Neutrophil, Absolute 5.40 103/mcL Invalid Interpretation Code 2.85 - 6.16 10^3/mcL AO Auto Heme SS Neutrophils/100 WBC (Bld) 64.8 % Invalid Interpretation Code 37.0 - 80.0 % AO Auto Heme SS Platelet mean volume (Bld) [Entitic vol] 7.3 fL Invalid Interpretation Code 7.4 - 10.4 fL AO Auto Heme SS Platelets (Bld) [#/Vol] 320 103/mcL Invalid Interpretation Code 130 - 400 10^3/mcL AO Auto Heme SS Potassium [Moles/Vol] 4.3 mmol/L Invalid Interpretation Code 3.5 - 5.1 mmol/L AO ADM SS Protein [Mass/Vol] 7.8 G/dL Invalid Interpretation Code 6.4 - 8.2 G/dL AO ADM SS RBC (Bld) [#/Vol] 4.27 106/mcL Invalid Interpretation Code 4.20 - 5.40 10^6/mcL AO Auto Heme SS Sodium [Moles/Vol] 142 mmol/L Invalid Interpretation Code 136 - 145 mmol/L AO ADM SS Urea nitrogen [Mass/Vol] 12 mg/dL Invalid Interpretation Code 7 - 18 mg/dL AO ADM SS Urea nitrogen/Creatinine [Mass ratio] 16 ratio Invalid Interpretation Code 7 - 27 ratio AO ADM SS WBC (Bld) [#/Vol] 8.30 103/mcL Invalid Interpretation Code 4.60 - 10.80 10^3/mcL AO Auto Heme SS Appearance (U) Cloudy *ABN* (05/22/21 4:18 AM) Invalid Interpretation Code Clear AO Auto Urine SS Bacteria LM.HPF (Urine sed) [#/Area] 2 /[HPF] Invalid Interpretation Code AO Auto Urine SS Bilirubin Ql (U) Negative (05/22/21 4:18 AM) Invalid Interpretation Code Negative AO Auto Urine SS Color (U) Yellow (05/22/21 4:18 AM) Invalid Interpretation Code AO Auto Urine SS Glucose Test strip (U) [Mass/Vol] Negative Invalid Interpretation Code Negativemg/ dL AO Auto Urine SS HCG ( test) Ql Negative (05/22/21 4:18 AM) Invalid Interpretation Code AO Manual Urine SS Hemoglobin Auto test strip (U) [Mass/Vol] Trace *ABN* (05/22/21 4:18 AM) Invalid Interpretation Code Negative AO Auto Urine SS Ketones Ql (U) Negative Invalid Interpretation Code Negativemg/ dL AO Auto Urine SS test (u) int Not detected Invalid Interpretation Code AO Manual Urine SS UA Leuk Est Small *ABN* (05/22/21 4:18 AM) Invalid Interpretation Code Negative AO Auto Urine SS UA Nitrite Positive *ABN* (05/22/21 4:18 AM) Invalid Interpretation Code Negative AO Auto Urine SS UA pH 6.0 (05/22/21 4:18 AM) Invalid Interpretation Code 5.0 - 8.0 AO Auto Urine SS UA Protein Negative Invalid Interpretation Code Negativemg/ dL AO Auto Urine SS UA RBC 0-5 /HPF Invalid Interpretation Code None Seen/HPF AO Auto Urine SS UA Spec Grav 1.025 (05/22/21 4:18 AM) Invalid Interpretation Code 1.015-1.025 AO Auto Urine SS UA Specimen Type Clean Catch (05/22/21 4:18 AM) Invalid Interpretation Code AO Auto Urine SS UA Squam Epithelial 0-5 /HPF Invalid Interpretation Code None Seen/HPF AO Auto Urine SS UA Urobilinogen 0.2 E.U./dL Invalid Interpretation Code 0.2-1.0E.U. /dL AO Auto Urine SS WBC LM.HPF (Urine sed) [#/Area] 10-15 /HPF Invalid Interpretation Code None Seen/HPF AO Auto Urine SS LABORATORYOrdered By: SYSTEM SYSTEM on 05-22-2021 GFR 100 ml/min/1.73sqm Invalid Interpretation Code AO Chemistry S GFR Non- 82 ml/min/1.73sqm Invalid Interpretation Code AO Chemistry S CORONAVIRUS 2019 BY PCRon CORONAVIRUS 2019,PCR NOT DETECTED Normal Not Detected [facility] Comment on above: Result Comment: This assay is designed to detect the ORF1ab and/or S genes of SARS-CoV-2 via nucleic acid amplification. A Not Detected result does not preclude 2019-nCoV infection since the adequacy of sample collection and/or low viral burden may result in presence of viral nucleic acids below the clinical sensitivity of this test method. Fact sheet for providers: www.fda.gov/media/545916/download Fact sheet for patients: www.fda.gov/media/289123/download This test has received FDA Emergency Use Authorization (EUA) and has been verified by [facility] ([facility]). This test is only authorized for the duration of time that circumstances exist to justify the authorization of the emergency use of in vitro diagnostic tests for the detection of SARS-CoV-2 virus and/or diagnosis of COVID-19 infection under section 564(b)(1) of the Act, 21 U.S.C. 360bbb-3(b)(1), unless the authorization is terminated or revoked sooner. [facility] is certified under CLIA-88 as qualified to perform high complexity testing. Testing is performed in the [facility] laboratories located at [address] [place] [address]. Performed By: #### C OV19 #### [address] [place] [address] Basic Metabolic Panelon 01-10 Anion gap [Moles/Vol] 8 mmol/L Normal 01-23 [facility] Comment on above: Performed By: #### B MP #### [facility] [address] [place] [address] 89746 Calcium [Mass/Vol] 9.8 mg/dL Normal 8.6-10.6 [facility] Comment on above: Performed By: #### B MP #### [facility] [address] [place] [address]08 Chloride [Moles/Vol] 106 mmol/L Normal 98-107 [facility] Comment on above: Performed By: #### B MP #### [facility] [address] [place] [address] 08044 CO2 [Moles/Vol] 25 mmol/L Normal 22-29 [facility] Comment on above: Performed By: #### B MP #### [facility] [address] [place] [address] 32201 Creatinine [Mass/Vol] 0.7 mg/dL Normal 0.5-1.2 [facility] Comment on above: Performed By: #### B MP #### [facility] [address] [place] [address] 17152 eGFR -Amer >=60 Normal >=60 [facility] Comment on above: Performed By: #### B MP #### [facility] [address] [place] [address] 78412 GFR/1.73 sq M predicted among non-blacks MDRD (S/P/Bld) [Vol rate/Area] mL/min/{1.73_m2} Normal >=60 [facility] Comment on above: Performed By: #### B MP #### [facility] [address] [place] [address] 50546 Glucose [Mass/Vol] 75 mg/dL Normal 74-109 [facility] Comment on above: Performed By: #### B MP #### [facility] [address] [place] [address] 80307 Potassium [Moles/Vol] 4.7 mmol/L Normal 3.4-5.1 [facility] Comment on above: Performed By: #### B MP #### [facility] [address] [place] [address] 93672 Sodium [Moles/Vol] 139 mmol/L Normal 136-145 [facility] Comment on above: Performed By: #### B MP #### [facility] [address] [place] [address] 99437 Urea nitrogen [Mass/Vol] 11 mg/dL Normal 6-23 [facility] Comment on above: Performed By: #### B MP #### [facility] [address] [place] [address] 80654 CBC with Diffon 02-02-2020 Basophils (Bld) [#/Vol] 0.0 x(10)3/cumm Normal 0.0-0.1 [facility] Comment on above: Performed By: #### C BCDIFF #### [facility] [address] [place] [address] 59476 Basophils/100 WBC (Bld) 0.6 % Normal 0.0-1.0 [facility] Comment on above: Performed By: #### C BCDIFF #### [facility] [address] [place] [address] 56738 Eosinophils (Bld) [#/Vol] 0.1 x(10)3/cumm Normal 0.0-0.4 [facility] Comment on above: Performed By: #### C BCDIFF #### [facility] [address] [place] [address] 81779 Eosinophils/100 WBC (Bld) 1.9 % Normal 0.0-6.1 [facility] Comment on above: Performed By: #### C BCDIFF #### [facility] [address] [place] [address] 54759 Erythrocyte distribution width (RBC) [Ratio] 13.0 % Normal 11.1-15.3 [facility] Comment on above: Performed By: #### C BCDIFF #### [facility] [address] [place] [address] 42333 Hematocrit (Bld) [Volume fraction] 39.1 % Normal 34.6-45.0 [facility] Comment on above: Performed By: #### C BCDIFF #### [facility] [address] [place] [address] 76158 Hemoglobin (Bld) [Mass/Vol] 13.4 g/dL Normal 11.5-15.5 [facility] Comment on above: Performed By: #### C BCDIFF #### [facility] [address] [place] [address] 72824 Lymphocytes (Bld) [#/Vol] 1.6 x(10)3/cumm Normal 0.8-2.9 [facility] Comment on above: Performed By: #### C BCDIFF #### [facility] [address] [place] [address] 81220 Lymphocytes/100 WBC (Bld) 34.2 % Normal 12.2-42.6 [facility] Comment on above: Performed By: #### C BCDIFF #### [facility] [address] [place] [address] 85869 MCH (RBC) [Entitic mass] 32.7 pg Normal 27.2-33.6 [facility] Comment on above: Performed By: #### C BCDIFF #### [facility] [address] [place] [address] 43034 MCHC (RBC) [Mass/Vol] 34.3 g/dL Normal 32.9-35.3 [facility] Comment on above: Performed By: #### C BCDIFF #### [facility] [address] [place] [address] 06363 MCV (RBC) [Entitic vol] 95.5 fL Normal 81.3-96.7 [facility] Comment on above: Performed By: #### C BCDIFF #### [facility] [address] [place] [address] 13544 Monocytes (Bld) [#/Vol] 0.4 x(10)3/cumm Normal 0.2-0.8 [facility] Comment on above: Performed By: #### C BCDIFF #### [facility] [address] [place] [address] 79437 Monocytes/100 WBC (Bld) 8.4 % Normal 3.3-11.6 [facility] Comment on above: Performed By: #### C BCDIFF #### [facility] [address] [place] [address] 30207 Neutrophils (Bld) [#/Vol] 2.6 x(10)3/cumm Normal 1.3-7.4 [facility] Comment on above: Performed By: #### C BCDIFF #### [facility] [address] [place] [address] 03308 Neutrophils/100 WBC (Bld) 54.9 % Normal 44.9-78.8 [facility] Comment on above: Performed By: #### C BCDIFF #### [facility] [address] [place] [address] 96594 Platelet mean volume (Bld) [Entitic vol] 8.2 fL Normal 6.4-10.0 [facility] Comment on above: Performed By: #### C BCDIFF #### [facility] [address] [place] [address] 33500 Platelets (Bld) [#/Vol] 245 x(10)3/cumm Normal 138-367 [facility] Comment on above: Performed By: #### C BCDIFF #### [facility] [address] [place] [address] 00241 Plt Morph Normal [facility] Comment on above: Performed By: #### C BCDIFF #### [facility] [address] [place] [address] 82145 RBC (Bld) [#/Vol] 4.09 X(10)6/cumm Normal 3.90-5.10 [facility] Comment on above: Performed By: #### C BCDIFF #### [facility] [address] [place] [address] 38638 RBC Morph cont Normal [facility] Comment on above: Performed By: #### C BCDIFF #### [facility] [address] [place] [address] 52296 RBC morphology finding Nom (Bld) Normal [facility] Comment on above: Performed By: #### C BCDIFF #### [facility] [address] [place] [address] 91366 WBC (Bld) [#/Vol] 4.7 x(10)3/cumm Normal 3.6-10.3 [facility] Comment on above: Performed By: #### C BCDIFF #### [facility] [address] [place] [address] 43740 WBC Morph [facility] Comment on above: Performed By: #### C BCDIFF #### [facility] [address] [place] [address] CORONAVIRUS 2019 BY PCRon Lab Specimen Source Nasal, Nasopharyngeal Normal [facility] Comment on above: Performed By: #### C OV19 #### [facility] [address] [place] [address] COVID-19 by PCR ()on 02-01 Coronavirus 2019 PCR Not Detected Normal Not Detected [facility] Comment on above: Order Comment: Nasal swab in Saline, Jose M opharyngeal or Oropharyngeal in viral transport media or saline Performed By: #### C OVUH #### [place] [address] Performing Lab Testing performed by : [facility] [address] [place] [address] CLIA # [id number] [facility] Comment on above: Order Comment: Nasal swab in Saline, Jose M opharyngeal or Oropharyngeal in viral transport media or saline Performed By: #### C OVUH #### [place] [address] Specimen source Nom (Unsp spec) Nasal, [employer] [facility] Comment on above: Order Comment: Nasal swab in Saline, Jose M opharyngeal or Oropharyngeal in viral transport media or saline Performed By: #### C OVUH #### [place] [id number] CR Finger(s) Min 2 Views [place] ateralon 01-02-2019 CR Finger(s) Min 2 Views Bilateral Patient Name: AMANDA GRUBBS Diagnostic Radiology Exam Date/Time 01/02/2019 08:01:00 EDT Exam CR Finger(s) Min 2 Views Ordering Physician MD ROLAN, ANNIE Cooley Accession Number [id number] CPT4 Codes 16693 () Reason For Exam PAIN Report Right finger three views HISTORY: Pain Three views of the fifth digit are submitted for interpretation. No fracture or dislocation. No significant degenerative changes. IMPRESSION: Normal examination. Report Dictated on Final Dictating Physician: MD CARRILLO MALAY Signed Date and Time: 01/02/2019 11:20 am Signed by: MD CARRILLO MALAY Transcribed Date and Time: 01/02/2019 11:21 Normal [facility] CR Finger(s) Min 2 Views [place] 01-02-2019 CR Finger(s) Min 2 Views Right Patient Name: AMANDA GRUBBS Diagnostic Radiology Exam Date/Time 01/02/2019 08:01:18 EDT Exam CR Finger(s) Min 2 Views Right Ordering Physician MD ROLAN, ANNIE Cooley Accession Number [id number] Reason For Exam 5th digit pain Report Right finger three views HISTORY: Pain Three views of the fifth digit are submitted for interpretation. No fracture or dislocation. No significant degenerative changes. IMPRESSION: Normal examination. Report Dictated on Final Dictating Physician: MD CARRILLO MALAY Signed Date and Time: 01/02/2019 11:20 am Signed by: MD CARRILLO MALAY Transcribed Date and Time: 01/21/2019 8:27 Normal [facility] Basic Metabolic Panelon 10-3 Calcium mass conc 8.4 mg/dL Normal 8.4-10.4 [facility] Comment on above: Performed By: #### H A1C2, HEMOG, ALB3, BMP3 ####[place] [id number] [place] [address] Anion gap 3 molar conc 7 Normal [facility] Comment on above: Performed By: #### H A1C2, HEMOG, ALB3, BMP3 ####[place] [address] [place] [address] CO2 molar conc 23 mmol/L Normal 22-30 [facility] Comment on above: Performed By: #### H A1C2, HEMOG, ALB3, BMP3 ####[facility] [id number] [place] [address] Creatinine mass conc 0.86 mg/dL Normal 0.52-1.25 [facility] Comment on above: Performed By: #### H A1C2, HEMOG, ALB3, BMP3 ####[facility] [place] [address] GFR/1.73 sq M predicted among blacks MDRD vol rate/area (S/P/Bld) mL/min/{1.73_m2} Normal >60 [facility] Comment on above: Performed By: #### H A1C2, HEMOG, ALB3, BMP3 ####[facility] [id number] [place] [address] GFR/1.73 sq M predicted among non-blacks MDRD vol rate/area (S/P/Bld) mL/min/{1.73_m2} Normal >60 [facility] Comment on above: Result Comment: Sour ce- MDRD equation with creatinine calibration to IDMS(NKDEP) eGFR not recommended for drug dose adjustment Performed By: #### H A1C2, HEMOG, ALB3, BMP3 ####[facility] [id number] [place] [address] Glucose mass conc 107 mg/dL High 70-100 [facility] Comment on above: Performed By: #### H A1C2, HEMOG, ALB3, BMP3 ####[facility] [id number] [place] [address] Urea nitrogen mass conc 11 mg/dL Normal 7-20 [facility] Comment on above: Performed By: #### H A1C2, HEMOG, ALB3, BMP3 ####[facility] [id number] [place] [address] Chloride molar conc 108 mmol/L High 98-107 [facility] Comment on above: Performed By: #### H A1C2, HEMOG, ALB3, BMP3 ####[place] [address] [place] [address] Potassium molar conc 4.1 mmol/L Normal 3.5-5.1 [facility] Comment on above: Performed By: #### H A1C2, HEMOG, ALB3, BMP3 ####[address] Sodium molar conc 138 mmol/L Normal 137-145 [facility] Comment on above: Performed By: #### H A1C2, HEMOG, ALB3, BMP3 ####[address] Hemogram w/ Autodiffon 04-10 Abs Baso Cnt 0.0 10*3/uL Normal 0.0-0.2 [facility] Comment on above: Performed By: #### H A1C2, HEMOG, ALB3, BMP3 ####[address] Abs Neutrophile Cnt 7.7 10*3/uL High 1.8-7.0 [facility] Comment on above: Performed By: #### H A1C2, HEMOG, ALB3, BMP3 ####[address] Basophils/100 WBC Auto (Bld) 0.2 % Normal 0.0-2.0 [facility] Comment on above: Performed By: #### H A1C2, HEMOG, ALB3, BMP3 ####[address] Eosinophils Auto #/vol (Bld) 0.0 10*3/uL Normal 0.0-0.5 [facility] Comment on above: Performed By: #### H A1C2, HEMOG, ALB3, BMP3 ####[address] Eosinophils/100 WBC Auto (Bld) 0.1 % Low 1.0-6.0 [facility] Comment on above: Performed By: #### H A1C2, HEMOG, ALB3, BMP3 ####[address] Erythrocyte distribution width Auto Ratio (RBC) 13.4 % Normal 11.5-14.5 [facility] Comment on above: Performed By: #### H A1C2, HEMOG, ALB3, BMP3 ####[address] Granulocytes/100 WBC (Bld) 74.9 % Normal 40.0-80.0 [facility] Comment on above: Performed By: #### H A1C2, HEMOG, ALB3, BMP3 ####[address] Hematocrit Auto Volume Fraction (Bld) 32.0 % Low 35.0-47.0 [facility] Comment on above: Performed By: #### H A1C2, HEMOG, ALB3, BMP3 ####[address] Hemoglobin mass conc (Bld) 10.9 g/dL Low 11.7-16.0 [facility] Comment on above: Performed By: #### H A1C2, HEMOG, ALB3, BMP3 ####[address] Lymphocytes Auto #/vol (Bld) 2.0 10*3/uL Normal 1.0-4.3 [facility] Comment on above: Performed By: #### H A1C2, HEMOG, ALB3, BMP3 ####[address] Lymphocytes/100 WBC Auto (Bld) 19.7 % Low 20.0-40.0 [facility] Comment on above: Performed By: #### H A1C2, HEMOG, ALB3, BMP3 ####[address] MCH Auto Entitic mass (RBC) 32.1 pg Normal 26.0-34.0 [facility] Comment on above: Performed By: #### H A1C2, HEMOG, ALB3, BMP3 ####[address] MCHC Auto mass conc (RBC) 34.2 % Normal 32.0-36.0 [facility] Comment on above: Performed By: #### H A1C2, HEMOG, ALB3, BMP3 ####[address] MCV Auto Entitic volume (RBC) 94.0 fL Normal 79.0-98.0 [facility] Comment on above: Performed By: #### H A1C2, HEMOG, ALB3, BMP3 ####[address] [address] Monocytes Auto #/vol (Bld) 0.5 10*3/uL Normal 0.0-0.8 [facility] Comment on above: Performed By: #### H A1C2, HEMOG, ALB3, BMP3 ####[address] Monocytes/100 WBC Auto (Bld) 5.1 % Normal 2.0-10.0 [facility] Comment on above: Performed By: #### H A1C2, HEMOG, ALB3, BMP3 ####[address] Platelet mean volume Auto Entitic volume (Bld) 7.9 fL Normal 7.4-10.4 [facility] Comment on above: Performed By: #### H A1C2, HEMOG, ALB3, BMP3 ####[address] Platelets Auto #/vol (Bld) 248 10*3/uL Normal 140-440 [facility] Comment on above: Performed By: #### H A1C2, HEMOG, ALB3, BMP3 ####[address] RBC Auto #/vol (Bld) 3.40 10*6/uL Low 3.80-5.20 [facility] Comment on above: Performed By: #### H A1C2, HEMOG, ALB3, BMP3 ####[address] WBC Auto #/vol (Bld) 10.3 10*3/uL Normal 3.6-10.7 [facility] Comment on above: Performed By: #### H A1C2, HEMOG, ALB3, BMP3 ####[id number] [place], [place] Magnesiumon 04-10-2018 Magnesium mass conc 2.5 mg/dL High 1.6-2.3 [facility] Comment on above: Performed By: #### H A1C2, HEMOG, ALB3, BMP3 ####[address] [place], [place] Phosphoruson 04-10-2018 Phosphate mass conc 3.3 mg/dL Normal 2.5-4.5 [facility] Comment on above: Performed By: #### H A1C2, HEMOG, ALB3, BMP3 ####[address] [place], [place] Basic Metabolic Panelon 03-13 Anion gap 3 molar conc 14 Normal [facility] Comment on above: Performed By: #### H A1C2, HEMOG, ALB3, BMP3 ####[address] [place], [place] Calcium mass conc 8.6 mg/dL Normal 8.4-10.4 [facility] Comment on above: Performed By: #### H A1C2, HEMOG, ALB3, BMP3 ####[address] CO2 molar conc 20 mmol/L Low 22-30 [facility] Comment on above: Performed By: #### H A1C2, HEMOG, ALB3, BMP3 ####[id number] [place], [place] Glucose mass conc 210 mg/dL High 70-100 [facility] Comment on above: Performed By: #### H A1C2, HEMOG, ALB3, BMP3 ####[id number] [place], [place] Urea nitrogen mass conc 14 mg/dL Normal 7-20 [facility] Comment on above: Performed By: #### H A1C2, HEMOG, ALB3, BMP3 ####[address] [place] [address] Creatinine mass conc 0.85 mg/dL Normal 0.52-1.25 [facility] Comment on above: Performed By: #### H A1C2, HEMOG, ALB3, BMP3 ####[facility] [address] [place] [address] GFR/1.73 sq M predicted among blacks MDRD vol rate/area (S/P/Bld) mL/min/{1.73_m2} Normal >60 [facility] Comment on above: Performed By: #### H A1C2, HEMOG, ALB3, BMP3 ####[facility] [address] [place] [address] GFR/1.73 sq M predicted among non-blacks MDRD vol rate/area (S/P/Bld) mL/min/{1.73_m2} Normal >60 [facility] Comment on above: Result Comment: Sour ce- MDRD equation with creatinine calibration to IDMS(NKDEP) eGFR not recommended for drug dose adjustment Performed By: #### H A1C2, HEMOG, ALB3, BMP3 ####[facility] [address] [place], [place] Potassium molar conc 4.1 mmol/L Normal 3.5-5.1 [facility] Comment on above: Performed By: #### H A1C2, HEMOG, ALB3, BMP3 ####[facility] [address] [place], [place] Sodium molar conc 138 mmol/L Normal 137-145 [facility] Comment on above: Performed By: #### H A1C2, HEMOG, ALB3, BMP3 ####[facility] [address] [place] [address] Chloride molar conc 104 mmol/L Normal 98-107 [facility] Comment on above: Performed By: #### H A1C2, HEMOG, ALB3, BMP3 ####[facility] [address] [place] [address] Hemogram w/ Autodiffon 04-09 Abs Baso Cnt 0.0 10*3/uL Normal 0.0-0.2 [facility] Comment on above: Performed By: #### H A1C2, HEMOG, ALB3, BMP3 ####[id number] [place] [address] Abs Neutrophile Cnt 12.0 10*3/uL High 1.8-7.0 [facility] Comment on above: Performed By: #### H A1C2, HEMOG, ALB3, BMP3 ####[address] [address] Basophils/100 WBC Auto (Bld) 0.2 % Normal 0.0-2.0 [facility] Comment on above: Performed By: #### H A1C2, HEMOG, ALB3, BMP3 ####[address] [address] Eosinophils Auto #/vol (Bld) 0.0 10*3/uL Normal 0.0-0.5 [facility] Comment on above: Performed By: #### H A1C2, HEMOG, ALB3, BMP3 ####[address] [address] Eosinophils/100 WBC Auto (Bld) 0.0 % Low 1.0-6.0 [facility] Comment on above: Performed By: #### H A1C2, HEMOG, ALB3, BMP3 ####[address] [address] Erythrocyte distribution width Auto Ratio (RBC) 13.3 % Normal 11.5-14.5 [facility] Comment on above: Performed By: #### H A1C2, HEMOG, ALB3, BMP3 ####[address] [address] Granulocytes/100 WBC (Bld) 91.6 % High 40.0-80.0 [facility] Comment on above: Performed By: #### H A1C2, HEMOG, ALB3, BMP3 ####[address] [address] Hematocrit Auto Volume Fraction (Bld) 38.4 % Normal 35.0-47.0 [facility] Comment on above: Performed By: #### H A1C2, HEMOG, ALB3, BMP3 ####[address] Hemoglobin mass conc (Bld) 13.0 g/dL Normal 11.7-16.0 [facility] Comment on above: Performed By: #### H A1C2, HEMOG, ALB3, BMP3 ####[address] Lymphocytes Auto #/vol (Bld) 0.6 10*3/uL Low 1.0-4.3 [facility] Comment on above: Performed By: #### H A1C2, HEMOG, ALB3, BMP3 ####[address] Lymphocytes/100 WBC Auto (Bld) 4.8 % Low 20.0-40.0 [facility] Comment on above: Performed By: #### H A1C2, HEMOG, ALB3, BMP3 ####[address] MCH Auto Entitic mass (RBC) 31.8 pg Normal 26.0-34.0 [facility] Comment on above: Performed By: #### H A1C2, HEMOG, ALB3, BMP3 ####[address] MCHC Auto mass conc (RBC) 33.9 % Normal 32.0-36.0 [facility] Comment on above: Performed By: #### H A1C2, HEMOG, ALB3, BMP3 ####[address] MCV Auto Entitic volume (RBC) 93.7 fL Normal 79.0-98.0 [facility] Comment on above: Performed By: #### H A1C2, HEMOG, ALB3, BMP3 ####[address] Monocytes Auto #/vol (Bld) 0.5 10*3/uL Normal 0.0-0.8 [facility] Comment on above: Performed By: #### H A1C2, HEMOG, ALB3, BMP3 ####[id number] [place], [place] Monocytes/100 WBC Auto (Bld) 3.4 % Normal 2.0-10.0 [facility] Comment on above: Performed By: #### H A1C2, HEMOG, ALB3, BMP3 ####[id number] [place], [place] Platelet mean volume Auto Entitic volume (Bld) 8.1 fL Normal 7.4-10.4 [facility] Comment on above: Performed By: #### H A1C2, HEMOG, ALB3, BMP3 ####[id number] [place], [place] Platelets Auto #/vol (Bld) 299 10*3/uL Normal 140-440 [facility] Comment on above: Performed By: #### H A1C2, HEMOG, ALB3, BMP3 ####[address] [place], [place] RBC Auto #/vol (Bld) 4.09 10*6/uL Normal 3.80-5.20 [facility] Comment on above: Performed By: #### H A1C2, HEMOG, ALB3, BMP3 ####[address] WBC Auto #/vol (Bld) 13.1 10*3/uL High 3.6-10.7 [facility] Comment on above: Performed By: #### H A1C2, HEMOG, ALB3, BMP3 ####[address] Magnesiumon 04-09-2018 Magnesium mass conc 2.2 mg/dL Normal 1.6-2.3 [facility] Comment on above: Performed By: #### H A1C2, HEMOG, ALB3, BMP3 ####[address] Phosphoruson 04-09-2018 Phosphate mass conc 2.3 mg/dL Low 2.5-4.5 [facility] Comment on above: Performed By: #### H A1C2, HEMOG, ALB3, BMP3 ####[facility] [place] [address] RF UGI w/o KUB w/ or w/o Del ay Flmon 04-09-2018 RF UGI w/o KUB w/ or w/o Delay Flm Patient Name: AMANDA GRUBBS Fluoroscopy Exam Date/Time 04/09/2018 08:17:29 EDT Exam RF UGI w/o KUB and w/ or w/o Delay Flm Ordering Physician MD TRUONG NICHOLAS Accession Number [id number] [facility]4 Codes 97385 () Reason For Exam bariatric surgery. gastrograffin. Report GASTROGRAFIN UPPER GI SERIES CLINICAL INDICATION: S/P gastric bypass, postop, day one. Evaluate for leak. COMPARISON: None TECHNIQUE: Gastrografin was administered in the upright position. FLUOROSCOPY TIME: 0.4 minutes FLUOROSCOPIC IMAGES: 21 fluoroscopic spot images were obtained. FINDINGS: Gastrografin was administered orally to the patient in the upright position. The esophagus is of normal course and caliber with no evidence of perforation or extravasation. The gastrojejunostomy is patent with no sign of extravasation or obstruction. The contrast empties readily from the gastric pouch into the jejunum. The jejunal jejunostomy is identified and shows free flow of contrast beyond the metallic clips that identify the anastomosis. There is no sign of obstruction. A surgical drain is noted in the left upper quadrant. IMPRESSION: Post-op changes consistent with gastric bypass surgery. No sign of extravasation or obstruction. Report Dictated on Final Dictated: 04/09/2018 8:33 am Dictating Physician: MD MONTANO B NELSON Signed Date and Time: 04/09/2018 11:44 am Signed by: MD MONTANO B NELSON Transcribed Date and Time: 04/09/2018 8:37 Normal [facility] Basic Metabolic Panelon 10- Calcium mass conc 8.8 mg/dL Normal 8.4-10.4 [facility] Comment on above: Performed By: #### H EMDF, MG3, BMP3, PHOS3, ICA ####[id number] [place], [place] Anion gap 3 molar conc 12 Normal [facility] Comment on above: Performed By: #### H EMDF, MG3, BMP3, PHOS3, ICA ####[id number] [place] CO2 molar conc 23 mmol/L Normal 22-30 [facility] Comment on above: Performed By: #### H EMDF, MG3, BMP3, PHOS3, ICA ####[id number] [place], [place] Glucose mass conc 201 mg/dL High 70-100 [facility] Comment on above: Performed By: #### H EMDF, MG3, BMP3, PHOS3, ICA ####[address] Urea nitrogen mass conc 13 mg/dL Normal 7-20 [facility] Comment on above: Performed By: #### H EMDF, MG3, BMP3, PHOS3, ICA ####[address] Creatinine mass conc 0.96 mg/dL Normal 0.52-1.25 [facility] Comment on above: Performed By: #### H EMDF, MG3, BMP3, PHOS3, ICA ####[address] GFR/1.73 sq M predicted among blacks MDRD vol rate/area (S/P/Bld) mL/min/{1.73_m2} Normal >60 [facility] Comment on above: Performed By: #### H EMDF, MG3, BMP3, PHOS3, ICA ####[id number] [place], [place] GFR/1.73 sq M predicted among non-blacks MDRD vol rate/area (S/P/Bld) mL/min/{1.73_m2} Normal >60 [facility] Comment on above: Result Comment: Sour ce- MDRD equation with creatinine calibration to IDMS(NKDEP) eGFR not recommended for drug dose adjustment Performed By: #### H EMDF, MG3, BMP3, PHOS3, ICA ####[address] Chloride molar conc 102 mmol/L Normal 98-107 [facility] Comment on above: Performed By: #### H EMDF, MG3, BMP3, PHOS3, ICA ####[address] Potassium molar conc 3.9 mmol/L Normal 3.5-5.1 [facility] Comment on above: Performed By: #### H EMDF, MG3, BMP3, PHOS3, ICA ####[address] Sodium molar conc 138 mmol/L Normal 137-145 [facility] Comment on above: Performed By: #### H EMDF, MG3, BMP3, PHOS3, ICA ####[address] Calcium,Ionizedon 04-08-2018 Ionized Ca,Measured 4.30 mg/dL Normal 4.30-5.20 [facility] Comment on above: Performed By: #### H A1C2, HEMOG, ALB3, BMP3 ####[address] pH, Ionized Calcium 7.29 Low 7.31-7.46 [facility] Comment on above: Performed By: #### H A1C2, HEMOG, ALB3, BMP3 ####[address] Hemogram w/ Autodiffon 04-08 Abs Baso Cnt 0.0 10*3/uL Normal 0.0-0.2 [facility] Comment on above: Performed By: #### H EMDF, MG3, BMP3, PHOS3, ICA ####[address] Abs Neutrophile Cnt 10.7 10*3/uL High 1.8-7.0 [facility] Comment on above: Performed By: #### H EMDF, MG3, BMP3, PHOS3, ICA ####[address] Basophils/100 WBC Auto (Bld) 0.1 % Normal 0.0-2.0 [facility] Comment on above: Performed By: #### H EMDF, MG3, BMP3, PHOS3, ICA ####[address] Eosinophils Auto #/vol (Bld) 0.0 10*3/uL Normal 0.0-0.5 [facility] Comment on above: Performed By: #### H EMDF, MG3, BMP3, PHOS3, ICA ####[address] Eosinophils/100 WBC Auto (Bld) 0.1 % Low 1.0-6.0 [facility] Comment on above: Performed By: #### H EMDF, MG3, BMP3, PHOS3, ICA ####[address] Erythrocyte distribution width Auto Ratio (RBC) 13.3 % Normal 11.5-14.5 [facility] Comment on above: Performed By: #### H EMDF, MG3, BMP3, PHOS3, ICA ####[address] Granulocytes/100 WBC (Bld) 88.5 % High 40.0-80.0 [facility] Comment on above: Performed By: #### H EMDF, MG3, BMP3, PHOS3, ICA ####[address] Hematocrit Auto Volume Fraction (Bld) 41.9 % Normal 35.0-47.0 [facility] Comment on above: Performed By: #### H EMDF, MG3, BMP3, PHOS3, ICA ####[address] Hemoglobin mass conc (Bld) 14.0 g/dL Normal 11.7-16.0 [facility] Comment on above: Performed By: #### H EMDF, MG3, BMP3, PHOS3, ICA ####[address] Lymphocytes Auto #/vol (Bld) 1.1 10*3/uL Normal 1.0-4.3 [facility] Comment on above: Performed By: #### H EMDF, MG3, BMP3, PHOS3, ICA ####[address] Lymphocytes/100 WBC Auto (Bld) 9.2 % Low 20.0-40.0 [facility] Comment on above: Performed By: #### H EMDF, MG3, BMP3, PHOS3, ICA ####[address] MCH Auto Entitic mass (RBC) 31.5 pg Normal 26.0-34.0 [facility] Comment on above: Performed By: #### H EMDF, MG3, BMP3, PHOS3, ICA ####[address] MCHC Auto mass conc (RBC) 33.4 % Normal 32.0-36.0 [facility] Comment on above: Performed By: #### H EMDF, MG3, BMP3, PHOS3, ICA ####[address] MCV Auto Entitic volume (RBC) 94.2 fL Normal 79.0-98.0 [facility] Comment on above: Performed By: #### H EMDF, MG3, BMP3, PHOS3, ICA ####[address] Monocytes Auto #/vol (Bld) 0.3 10*3/uL Normal 0.0-0.8 [facility] Comment on above: Performed By: #### H EMDF, MG3, BMP3, PHOS3, ICA ####[facility] [address] [place], [place] Monocytes/100 WBC Auto (Bld) 2.1 % Normal 2.0-10.0 [facility] Comment on above: Performed By: #### H EMDF, MG3, BMP3, PHOS3, ICA ####[facility] [address] [place], [place] Platelet mean volume Auto Entitic volume (Bld) 7.8 fL Normal 7.4-10.4 [facility] Comment on above: Performed By: #### H EMDF, MG3, BMP3, PHOS3, ICA ####[facility] [address] [place], [place] Platelets Auto #/vol (Bld) 293 10*3/uL Normal 140-440 [facility] Comment on above: Performed By: #### H EMDF, MG3, BMP3, PHOS3, ICA ####[facility] [address] [place], [place] RBC Auto #/vol (Bld) 4.45 10*6/uL Normal 3.80-5.20 [facility] Comment on above: Performed By: #### H EMDF, MG3, BMP3, PHOS3, ICA ####[facility] [address] [place], [place] WBC Auto #/vol (Bld) 12.1 10*3/uL High 3.6-10.7 [facility] Comment on above: Performed By: #### H EMDF, MG3, BMP3, PHOS3, ICA ####[facility] [address] [place], [place] Magnesiumon 04-08-2018 Magnesium mass conc 2.5 mg/dL High 1.6-2.3 [facility] Comment on above: Performed By: #### H EMDF, MG3, BMP3, PHOS3, ICA ####[facility] [address] [place], [place] Phosphoruson 04-08-2018 Phosphate mass conc 4.5 mg/dL Normal 2.5-4.5 [facility] Comment on above: Performed By: #### H EMDF, MG3, BMP3, PHOS3, ICA ####[employer] [address] [place] [address] Surgical Pathologyon 018 Surgical Pathology [id number] [facility] PATHOLOGY AND LABORATORY MEDICINE [address] [place], [place] [id number] FINAL SURGICAL PATHOLOGY REPORT NAM E: AMANDA GRUBBS .O.B.: 1970 47 Y F BILLING NO.: [id number] PROCEDURE 04/08/2018 DATE:SURGEON: ROLAN JORDAN M.D. RECEIVED 04/09/2018 DATE:ATTENDING: ROLAN JORDAN M.D. REPORT DATE: 04/12/2018 COPIES TO: DIAGNO SIS:LIVER, BIOPSY - LIVER WITH MILD STEATOSIS. SEE COMMENT.COMMENT: The specimen consists of a subcapsular portion of hepaticparenchyma which demonstrates mild steatosis approximately (20%).There is mild, periportal patchy chronic inflammation without evidenceof interface hepatitis. A Prussian blue stain was performed, andincreased stainable iron is not identified. A trichrome stain wasperformed, and highlights fibrosis consistent with the subcapsularnature of the biopsy. Steatohepatitis is not identified.SMT/BETHANIE JAMES M.D. CLINI BETHANIE INFORMATION: Morbid obesitySPECIMEN: LIVER NEEDLE OR WEDGE BIOPSY, MEDICAL GR OSS DESCRIPTION:Liver biopsyReceived in formalin are two, red-grant to yellow-grant tissue segments 0.5and 0.9 cm. Submitted in toto. (2 ns, 1) JCK/JAFDisclaimer: The following statement applies to allimmunohistochemistry, in situ hybridization, molecular studies, andimmunofluorescence testing.The use of one or more reagents in the above tests is regulated as ananalyte specific reagent (ASR). These tests were developed and theirperformance characteristics determined by the clinical laboratories [facility]. They have not been cleared by the [place] Food and DrugAdministration (FDA). The FDA has determined that such clearance orapproval is not necessary.All the above immunostains were performed on paraffin embedded tissue.Appropriate positive and negative controls (where applicable) were runin parallel with the patient's specimen; these controls showed expectedstaining pattern, with acceptable intensity of staining.Immunohistochemica l assays have not been validated on decalcifiedtissues. Results should be interpreted with caution given the raisedpossibility of false negativity on decalcified specimens.Professional Performing Location: [address] [place] [address]. DEPARTMENT OF PATHOLOGY AND LABORATORY MEDICINE [place], [place] [address] Normal [facility] Basic Metabolic Panelon 10-2 Anion gap 3 molar conc 10 Normal [facility] Comment on above: Performed By: #### B MP3 ####[facility] [address] [place] [address] Calcium mass conc 10.0 mg/dL Normal 8.4-10.4 [facility] Comment on above: Performed By: #### B MP3 ####[facility] [place] [address] CO2 molar conc 26 mmol/L Normal 22-30 [facility] Comment on above: Performed By: #### B MP3 ####[address] [place] [address] Glucose mass conc 89 mg/dL Normal 70-100 [facility] Comment on above: Performed By: #### B MP3 ####[address] [facility] [place] [place] Urea nitrogen mass conc 18 mg/dL Normal 7-20 [facility] Comment on above: Performed By: #### B MP3 ####[address] [facility] [place] [place] Creatinine mass conc 0.82 mg/dL Normal 0.52-1.25 [facility] Comment on above: Performed By: #### B MP3 ####[address] [facility] [place] [place] GFR/1.73 sq M predicted among blacks MDRD vol rate/area (S/P/Bld) mL/min/{1.73_m2} Normal >60 [facility] Comment on above: Performed By: #### B MP3 ####[address] [facility] [place] [place] GFR/1.73 sq M predicted among non-blacks MDRD vol rate/area (S/P/Bld) mL/min/{1.73_m2} Normal >60 [facility] Comment on above: Result Comment: Sour ce- MDRD equation with creatinine calibration to IDMS(NKDEP) eGFR not recommended for drug dose adjustment Performed By: #### B MP3 ####[facility] [place] [address] Chloride molar conc 103 mmol/L Normal 98-107 [facility] Comment on above: Performed By: #### B MP3 ####[address] [place] [address] Potassium molar conc 4.9 mmol/L Normal 3.5-5.1 [facility] Comment on above: Performed By: #### B MP3 ####[address] [place], [place] Sodium molar conc 139 mmol/L Normal 137-145 [facility] Comment on above: Performed By: #### B MP3 ####[address] [place] [address] Albumin, Serumon 03-14-2018 Albumin mass conc 4.7 g/dL Normal 3.5-5.0 [facility] Comment on above: Performed By: #### H A1C2, HEMOG, ALB3, BMP3 ####[address] [place], [place] Basic Metabolic Panelon Anion gap 3 molar conc 11 Normal [facility] Comment on above: Performed By: #### H A1C2, HEMOG, ALB3, BMP3 ####[address] [place], [place] Calcium mass conc 10.1 mg/dL Normal 8.4-10.4 [facility] Comment on above: Performed By: #### H A1C2, HEMOG, ALB3, BMP3 ####[address] [place], [place] CO2 molar conc 27 mmol/L Normal 22-30 [facility] Comment on above: Performed By: #### H A1C2, HEMOG, ALB3, BMP3 ####[address] [place], [place] Glucose mass conc 90 mg/dL Normal 70-100 [facility] Comment on above: Performed By: #### H A1C2, HEMOG, ALB3, BMP3 ####[address] [place], [place] Urea nitrogen mass conc 12 mg/dL Normal 7-20 [facility] Comment on above: Performed By: #### H A1C2, HEMOG, ALB3, BMP3 ####[address] [place], [place] Creatinine mass conc 0.83 mg/dL Normal 0.52-1.25 [facility] Comment on above: Performed By: #### H A1C2, HEMOG, ALB3, BMP3 ####[address] [place] [address] GFR/1.73 sq M predicted among blacks MDRD vol rate/area (S/P/Bld) mL/min/{1.73_m2} Normal >60 [facility] Comment on above: Performed By: #### H A1C2, HEMOG, ALB3, BMP3 ####[address] [address] GFR/1.73 sq M predicted among non-blacks MDRD vol rate/area (S/P/Bld) mL/min/{1.73_m2} Normal >60 [facility] Comment on above: Result Comment: Sour ce- MDRD equation with creatinine calibration to IDMS(NKDEP) eGFR not recommended for drug dose adjustment Performed By: #### H A1C2, HEMOG, ALB3, BMP3 ####[address] Chloride molar conc 102 mmol/L Normal 98-107 [facility] Comment on above: Performed By: #### H A1C2, HEMOG, ALB3, BMP3 ####[address] [address] Potassium molar conc 4.7 mmol/L Normal 3.5-5.1 [facility] Comment on above: Performed By: #### H A1C2, HEMOG, ALB3, BMP3 ####[address] [address] Sodium molar conc 140 mmol/L Normal 137-145 [facility] Comment on above: Performed By: #### H A1C2, HEMOG, ALB3, BMP3 ####[address] [address] Hemoglobin A1Con 03-14-2018 Glucose mass conc 120 mg/dL Normal [facility] Comment on above: Performed By: #### H A1C2, HEMOG, ALB3, BMP3 ####[address] [place] Hemoglobin A1c/Hemoglobin.total mass fraction (Bld) 5.8 % High 4.0-5.7 [facility] Comment on above: Result Comment: --Hg bA1C levels may not be accurate in patients who haverenal disease, received recent blood transfusions, are anemic,or who have dyshemoglobinemia. Performed By: #### H A1C2, HEMOG, ALB3, BMP3 ####[address] Hemogramon 03-14-2018 Erythrocyte distribution width Auto Ratio (RBC) 13.3 % Normal 11.5-14.5 [facility] Comment on above: Performed By: #### H A1C2, HEMOG, ALB3, BMP3 ####[address] Hematocrit Auto Volume Fraction (Bld) 38.9 % Normal 35.0-47.0 [facility] Comment on above: Performed By: #### H A1C2, HEMOG, ALB3, BMP3 ####[address] Hemoglobin mass conc (Bld) 13.2 g/dL Normal 11.7-16.0 [facility] Comment on above: Performed By: #### H A1C2, HEMOG, ALB3, BMP3 ####[address] MCH Auto Entitic mass (RBC) 31.9 pg Normal 26.0-34.0 [facility] Comment on above: Performed By: #### H A1C2, HEMOG, ALB3, BMP3 ####[address] MCHC Auto mass conc (RBC) 34.0 % Normal 32.0-36.0 [facility] Comment on above: Performed By: #### H A1C2, HEMOG, ALB3, BMP3 ####[address] MCV Auto Entitic volume (RBC) 93.9 fL Normal 79.0-98.0 [facility] Comment on above: Performed By: #### H A1C2, HEMOG, ALB3, BMP3 ####[id number] [place], [place] Platelet mean volume Auto Entitic volume (Bld) 7.9 fL Normal 7.4-10.4 [facility] Comment on above: Performed By: #### H A1C2, HEMOG, ALB3, BMP3 ####[address] Platelets Auto #/vol (Bld) 304 10*3/uL Normal 140-440 [facility] Comment on above: Performed By: #### H A1C2, HEMOG, ALB3, BMP3 ####[address] RBC Auto #/vol (Bld) 4.15 10*6/uL Normal 3.80-5.20 [facility] Comment on above: Performed By: #### H A1C2, HEMOG, ALB3, BMP3 ####[address] WBC Auto #/vol (Bld) 6.7 10*3/uL Normal 3.6-10.7 [facility] Comment on above: Performed By: #### H A1C2, HEMOG, ALB3, BMP3 ####[address] Surgical Pathologyon [facility] Surgical Pathology [id number] [facility] DEPARTMENT OF [facility] PATHOLOGY AND LABORATORY MEDICINE [address] [place] [address] FINAL SURGICAL PATHOLOGY REPORT NAM E: AMANDA GRUBBS .O.B.: 1970 47 Y F BILLING NO.: [id number]: [id number] PROCEDURE 11/27/2017 DATE:SURGEON: ROLAN JORDAN M.D. RECEIVED 11/27/2017 DATE:ATTENDING: ROLAN JORDAN M.D. REPORT DATE: 11/28/2017 COPIES TO: DIAGNO SIS:STOMACH, ANTRUM, BIOPSY - MILD REACTIVE GASTROPATHYComment: Evaluation of the H&E-stained sections shows no evidence ofHelicobacter pylori or any morphologic features to suggest infectionwith the organism; as such, further studies for Helicobacter are notindicated. There is no evidence of intestinal metaplasia, dysplasia ormalignancy.Reference: Chris POOLE et al. Appropriate use of special stains foridentifying Helicobacter pylori: Recommendations from the [employer].[place] G[employer]. Am J Surg Pathol. 2013Nov;37(11):e12-22.NATALIE/Yasir ALLEN M.D. [facility] INFORMATION: GERDSPECIMEN: GASTRIC BIOPSY GRO SS DESCRIPTION:Stomach - antrumReceived in formalin are two segments of grant tissue 0.2 cm each.Submitted in toto. (2 ns, 1) JCK/JAKIERANisclaimer: The following statement applies to allimmunohistochemistry, in situ hybridization, molecular studies, andimmunofluorescence testing.The use of one or more reagents in the above tests is regulated as ananalyte specific reagent (ASR). These tests were developed and theirperformance characteristics determined by the [facility]. They have not been cleared by the US Food and DrugAdministration (FDA). The FDA has determined that such clearance orapproval is not necessary.All the above immunostains were performed on paraffin embedded tissue.Appropriate positive and negative controls (where applicable) were runin parallel with the patient's specimen; these controls showed expectedstaining pattern, with acceptable intensity of staining.Immunohistochemica l assays have not been validated on decalcifiedtissues. Results should be interpreted with caution given the raisedpossibility of false negativity on decalcified specimens.Professional Performing Location: [address] [address]. DEPARTMENT OF PATHOLOGY AND LABORATORY MEDICINE [place], [place] [id number] Normal [facility] Vital Signs Date Time Vital Sign Value Performing Clinician Facility 11-26-2024 09:57-0400 Body height 160.[address] Franky Pearson DO Work Phone: [facility] 11-26-2024 09:57-0400 Body mass index (BMI) [Ratio] 29 kg/m2 Dr. Franky Pearson DO Work Phone: [facility] 11-26-2024 09:57-0400 Body temperature 98.5 [degF] Dr. Franky Pearson DO Work Phone: [facility] 11-26-2024 09:57-0400 Body weight 74.[address] Franky Pearson DO Work Phone: [facility] 11-26-2024 09:57-0400 Diastolic blood pressure 93 mm[Hg] Dr. Franky Pearson DO Work Phone: [facility] 11-26-2024 09:57-0400 Heart rate 85 /min Dr. Franky Pearson DO Work Phone: [facility] 11-26-2024 09:57-0400 Respiratory rate 16 /min Dr. Franky Pearson DO Work Phone: [facility] 11-26-2024 09:57-0400 SaO2% (BldA) [Mass fraction] 97 % Dr. Franky Pearson DO Work Phone: [facility] 11-26-2024 09:57-0400 Systolic blood pressure 139 mm[Hg] Dr. Franky Pearson DO Work Phone: [facility] 09-25-2024 10:43-0400 Body mass index (BMI) [Ratio] 29 kg/m2 Dr. Franky Pearson DO Work Phone: [facility] 09-25-2024 10:43-0400 Body weight 74.[address] Franky Pearson DO Work Phone: [facility] 09-25-2024 10:43-0400 Diastolic blood pressure 78 mm[Hg] Dr. Franky Pearson DO Work Phone: [facility] 09-25-2024 10:43-0400 Systolic blood pressure 118 mm[Hg] Dr. Franky Pearson DO Work Phone: [facility] 08-19-2024 07:30-0400 Body mass index (BMI) [Ratio] 29.2 kg/m2 Dr. Franky Pearson DO Work Phone: [facility] 08-19-2024 07:30-0400 Body temperature 97.5 [degF] Dr. Franky Pearson DO Work Phone: [facility] 08-19-2024 07:30-0400 Body weight 74.[address] Franky Pearson DO Work Phone: [facility] 08-19-2024 07:30-0400 Diastolic blood pressure 86 mm[Hg] Dr. Franky Pearson DO Work Phone: [facility] 08-19-2024 07:30-0400 Heart rate 84 /min Dr. Franky Pearson DO Work Phone: [facility] 08-19-2024 07:30-0400 Respiratory rate 18 /min Dr. Franky Pearson DO Work Phone: [facility] 08-19-2024 07:30-0400 SaO2% (BldA) [Mass fraction] 98 % Dr. Franky Pearson DO Work Phone: [facility] 08-19-2024 07:30-0400 Systolic blood pressure 126 mm[Hg] Dr. Franky Pearson DO Work Phone: [facility] 08-13-2024 08:34-0500 Body temperature 97.6 [degF] Dr. Franky Pearson DO Work Phone: [facility] 08-13-2024 08:34-0500 Diastolic blood pressure 60 mm[Hg] Dr. Franky Pearson DO Work Phone: [facility] 08-13-2024 08:34-0500 Heart rate 83 /min Dr. Franky Pearson DO Work Phone: [facility] 08-13-2024 08:34-0500 SaO2% (BldA) [Mass fraction] 99 % Dr. Franky Pearson DO Work Phone: [facility] 08-13-2024 08:34-0500 Systolic blood pressure 120 mm[Hg] Dr. Franky Pearson DO Work Phone: [facility] 05-13-2023 10:41-0500 Body height 160.[address] Yessi Mcqueen Work Phone: [facility] 05-13-2023 10:41-0500 Body temperature 98 [degF] Dr. Yessi Mcqueen Work Phone: [facility] 05-13-2023 10:41-0500 Diastolic blood pressure 88 mm[Hg] Dr. Yessi Mcqueen Work Phone: [facility] 05-13-2023 10:41-0500 Heart rate 81 /min Dr. Yessi Mcqueen Work Phone: [facility] 05-13-2023 10:41-0500 Respiratory rate 17 /min Dr. Yessi Mcqueen Work Phone: [facility] 05-13-2023 10:41-0500 SaO2% (BldA) [Mass fraction] 96 % Dr. Yessi Mcqueen Work Phone: [facility] 05-13-2023 10:41-0500 Systolic blood pressure 126 mm[Hg] Dr. Yessi Mcqueen Work Phone: [facility] 08-26-2022 19:04-0400 Body temperature 97.88 [degF] LINDA MARTINEZ MD [facility] 08-26-2022 18:57-0400 Body temperature 97.88 [degF] LINDA MARTINEZ MD [facility] 08-26-2022 18:30-0400 Diastolic Blood Pressure Non-Invasive 72 1 LINDA MARTINEZ MD [facility] 08-26-2022 18:30-0400 Heart rate 80 /min LINDA MARTINEZ MD [facility] 08-26-2022 18:30-0400 Respiratory rate 13 /min LINDA MARTINEZ MD [facility] 08-26-2022 18:30-0400 Systolic Blood Pressure Non-Invasive 130 1 LINDA MARTINEZ MD [facility] 08-26-2022 18:00-0400 Diastolic Blood Pressure Non-Invasive 69 1 LINDA MARTINEZ MD [facility] 08-26-2022 18:00-0400 Heart rate 81 /min LINDA MARTINEZ MD [facility] 08-26-2022 18:00-0400 Respiratory rate 14 /min LINDA MARTINEZ MD [facility] 08-26-2022 18:00-0400 Systolic Blood Pressure Non-Invasive 127 1 LINDA MARTINEZ MD [facility] 08-26-2022 17:30-0400 Diastolic Blood Pressure Non-Invasive 72 1 LINDA MARTINEZ MD [facility] 08-26-2022 17:30-0400 Heart rate 80 /min LINDA MARTINEZ MD [facility] 08-26-2022 17:30-0400 Respiratory rate 13 /min LINDA MARTINEZ MD [facility] 08-26-2022 17:30-0400 Systolic Blood Pressure Non-Invasive 130 1 LINDA MARTINEZ MD [facility] 08-26-2022 16:07-0400 Body temperature 96.62 [degF] LINDA MARTINEZ MD [facility] 08-18-2022 14:03-0500 Body height 160.7 cm Shayna Andrade MD Work Phone: [facility] 08-18-2022 14:03-0500 Body mass index (BMI) [Ratio] 31.74 kg/m2 Shayna Andrade MD Work Phone: [facility] 08-18-2022 14:03-0500 Body weight 81.92 kg Shayna Andrade MD Work Phone: [facility] 08-18-2022 14:03-0500 Diastolic blood pressure 79 mm[Hg] Shayna Andrade MD Work Phone: [facility] 08-18-2022 14:03-0500 Heart rate 94 /min Shayna Andrade MD Work Phone: [facility] 08-18-2022 14:03-0500 Systolic blood pressure 121 mm[Hg] Shayna Andrade MD Work Phone: [facility] 07-07-2022 10:09-0500 Body height 160.7 cm Shayna Andrade MD Work Phone: [facility] 07-07-2022 10:09-0500 Body mass index (BMI) [Ratio] 32.3 kg/m2 Shayna Andrade MD Work Phone: [facility] 07-07-2022 10:09-0500 Body weight 83.37 kg Shayna Andrade MD Work Phone: [facility] 07-07-2022 10:09-0500 Diastolic blood pressure 82 mm[Hg] Shayna Andrade MD Work Phone: [facility] 07-07-2022 10:09-0500 Heart rate 84 /min Shayna Andrade MD Work Phone: [facility] 07-07-2022 10:09-0500 Respiratory rate 14 /min Shayna Andrade MD Work Phone: [facility] 07-07-2022 10:09-0500 Systolic blood pressure 122 mm[Hg] Shayna Andrade MD Work Phone: [facility] 03-03-2022 09:25-0400 Diastolic Blood Pressure NBP [address] ROBSON PUGH MD [facility] 03-03-2022 09:25-0400 Heart rate 80 /min DR ROBSON PUGH MD [facility] 03-03-2022 09:25-0400 Respiratory rate 14 /min DR ROBSON PUGH MD [facility] 03-03-2022 09:25-0400 Systolic Blood Pressure NBP [address] ROBSON PUGH MD [facility] 03-03-2022 09:20-0400 Diastolic Blood Pressure NBP [address] ROBSON PUGH MD [facility] 03-03-2022 09:20-0400 Heart rate 73 /min DR ROBSON PUGH MD [facility] 03-03-2022 09:20-0400 Respiratory rate 21 /min DR ROBSON PUGH MD [facility] 03-03-2022 09:20-0400 Systolic Blood Pressure NBP [address] ROBSON PUGH MD [facility] 03-03-2022 09:16-0400 Diastolic Blood Pressure NBP [address] ROBSON PUGH MD [facility] 03-03-2022 09:16-0400 Heart rate 78 /min DR ROBSON PUGH MD [facility] 03-03-2022 09:16-0400 Respiratory rate 15 /min DR ROBSON PUGH MD [facility] 03-03-2022 09:16-0400 Systolic Blood Pressure NBP [address] ROBSON PUGH MD [facility] 03-03-2022 07:55-0400 Body height 162.[address] ROBSON PUGH MD [facility] 03-03-2022 07:55-0400 Body temperature 98.06 [degF] DR ROBSON PUGH MD [facility] 03-03-2022 07:55-0400 Body weight 79.[address] ROBSON PUGH MD [facility] 03-03-2022 07:55-0400 Body weight 30.07 kg/m2 DR ROBSON PUGH MD [facility] 05-22-2021 05:00-0500 Diastolic blood pressure 79 mm[Hg] RUY RIVERA MD [facility] 05-22-2021 05:00-0500 Heart rate 70 /min RUY RIVERA MD [facility] 05-22-2021 05:00-0500 Mean blood pressure 91 mm[Hg] RUY RIVERA MD [facility] 05-22-2021 05:00-0500 Reason For Taking VItal Signs RUY RIVERA MD [facility] 05-22-2021 05:00-0500 Respiratory rate 14 /min RUY RIVERA MD [facility] 05-22-2021 05:00-0500 Systolic blood pressure 114 mm[Hg] RUY RIVERA MD [facility] 05-22-2021 04:24-0500 Body temperature 98.06 [degF] RUY RIVERA MD [facility] 05-22-2021 04:24-0500 Diastolic blood pressure 97 mm[Hg] RUY RIVERA MD [facility] 05-22-2021 04:24-0500 Heart rate 81 /min RUY RIVERA MD [facility] 05-22-2021 04:24-0500 Mean blood pressure 108 mm[Hg] RUY RIVERA MD [facility] 12-12-2021 04:24-0500 Respiratory rate 16 /min RUY RIVERA MD [facility] 05-22-2021 04:24-0500 Systolic blood pressure 130 mm[Hg] RUY RIVERA MD [facility] Encounters Encounter Date Encounter Type Care Provider Facility Start: 01-05-2025 End: 01-05-[address] Yessi Mcqueen DC -[facility] Work Phone: Start: 01-05-2025 End: 01-05-[address] Franky Pearson DO Work Phone: -[facility] Start: 12-18-2024 End: 12-18-[address] Yessi Mcqueen DC -[facility] Work Phone: Start: 12-18-2024 End: 12-18-[address] Franky Pearson DO Work Phone: -[facility] Start: 11-26-2024 End: 11-26-2024 Patient encounter procedure Kiersten PEREZ -[facility] Work Phone: Start: 11-26-2024 End: 11-26-[address] Franky Pearson DO Work Phone: [facility] Work Phone: Start: 09-25-2024 End: 09-25-[address] Yessi Mcqueen DC -[facility] Work Phone: Start: 09-25-2024 End: 09-25-2024 ambulatory Yessi Mcqueen Facility:[facility] Start: 08-19-2024 End: 08-19-2024 Patient encounter procedure LACEY Lyman -[facility] Work Phone: Start: 08-19-2024 End: 08-19-2024 ambulatory Moon Lyman Facility:[facility] Start: 08-13-2024 End: 08-13-2024 Patient encounter procedure Jose M Carver [employer]-C [facility] Work Phone: Start: 08-13-2024 End: 08-13-2024 ambulatory Jose M Carver Facility:[facility] Start: 07-23-2024 End: 07-23-2024 ambulatory Angus HURT Facility:[facility] Start: 07-01-2024 End: 07-01-2024 ambulatory Franky Pearson Facility:[facility] Start: 06-30-2024 End: 06-30-2024 ambulatory Rolan Valdes NP Facility:[facility] Start: 06-27-2024 End: 06-27-2024 ambulatory Hans HURT Facility:[facility] Start: 06-13-2024 ambulatory Allan Coleman [facility] Start: 06-13-2024 End: 06-13-2024 ambulatory Franky Hollingsworth Facility:[facility] Start: 05-13-2024 End: 05-13-2024 ambulatory Santiago Og Facility[facility] Start: 05-06-2024 [facility] Start: 05-06-2024 End: 05-06-2024 ambulatory Santiago Og Facility:[facility] Start: 05-05-2024 End: 05-05-2024 ambulatory Franky Hollingsworth Facility:[facility] Start: 04-17-2024 End: 04-17-2024 ambulatory Hans HURT Facility:[facility] Start: 04-15-2024 ambulatory Criselda Muñoz Facility :[facility] Start: 03-26-2024 End: 03-26-2024 ambulatory Franky Pearson Facility:[facility] Start: 03-11-2024 End: 03-11-2024 ambulatory Franky Pearson Facility:[facility] Start: 02-15-2024 ambulatory Allan Coleman [facility] Start: 02-15-2024 End: 02-15-2024 ambulatory Franky Pearson Facility:[facility] Start: 01-28-2024 End: 01-28-2024 ambulatory Angus HURT Facility:[facility] Start: 01-28-2024 End: 01-28-2024 ambulatory Angus HURT Facility:[facility] Start: 01-18-2024 ambulatory Allan Coleman [facility] Start: 01-18-2024 End: 01-18-2024 ambulatory Franky Pearson Facility:[facility] Start: 09-12-2023 End: 09-12-[address] Allan Coleman Work Phone: [facility] Work Phone: Start: 09-12-2023 End: 09-12-[address] Allan Coleman Work Phone: [facility] Start: 07-26-2023 End: 07-26-2023 ambulatory [employer] Rolan Valdes [employer] PROFESSOR Work Phone: [facility] Work Phone: Start: 07-26-2023 End: 07-26-2023 Patient encounter procedure [employer] Rolan Valdes [employer] PROFESSOR Work Phone: [facility]-Cat Scan, [facility] Work Phone: Start: 07-24-2023 End: 07-24-2023 ambulatory [employer] Rolan Valdes [employer] PROFESSOR Work Phone: [facility] Work Phone: Start: 07-24-2023 End: 07-24-2023 Patient encounter procedure [employer] Rolan Valdes [employer] PROFESSOR Work Phone: [facility]-Outpatient Bone Densitometry Work Phone: Start: 06-22-2023 End: 06-22-[address] Yessi Mcqueen Work Phone: [facility] Work Phone: Start: 06-22-2023 End: 06-22-[address] Yessi Mcqueen Work Phone: [facility] Start: 06-01-2023 End: 06-01-[address] Yessi Mcqueen Work Phone: [facility] Start: 05-13-2023 End: 05-13-[address] Yessi Mcqueen Work Phone: [facility] Work Phone: Start: 03-20-2023 End: 03-20-[address] Yessi Mcqueen Work Phone: [facility] Work Phone: Start: 01-16-2023 Telephone encounter Shayna mcdonald MD Work Phone: [facility] Comment on above: Appointment Start: 09-19-2022 End: 09-20-2022 ambulatory FRANKY HALKO DO Facility:[facility] Start: 09-13-2022 End: 09-14-2022 ambulatory FRANKY HALKO DO Facility:[facility] Start: 09-13-2022 End: 09-13-2022 Patient encounter procedure FRANKY HALKO DO [facility] Start: 09-02-2022 End: 09-03-2022 ambulatory FRANKY ANN-MARIEKO DO Facility:[facility] Start: 09-02-2022 End: 09-02-2022 Patient encounter procedure FRANKY HALKO DO [facility] Start: 08-26-2022 End: 08-26-2022 Emergency department patient visit LINDA MARTINEZ MD Facility:[facility] Start: 08-26-2022 End: 08-26-2022 Emergency department patient visit LINDA MARTINEZ MD [facility] Start: 08-22-2022 End: 08-23-2022 ambulatory FRANKY ANN-MARIEKO DO Facility:[facility] Start: 08-22-2022 End: 08-22-2022 Patient encounter procedure FRANKY HALKO DO [facility] Start: 08-18-2022 End: 08-18-2022 ambulatory SHAYNA ANDRADE [facility] Start: 08-18-2022 End: 08-18-2022 Office outpatient visit 15 minutes Shayna Andrade MD Work Phone: [facility] Comment on above: Pre-diabetes (Primar y Dx); S/P bariatric surgery; Weight gain; BMI 31.0-31.9,adult; Class 1 obesity with serious comorbidity and body mass index (BMI) of 31.0 to 31.9 in adult, unspecified obesity type; Deficiency of multiple nutrient elements; Vitamin D deficiency Start: 07-07-2022 End: 07-07-2022 ambulatory [facility] Start: 07-07-2022 End: 07-07-2022 Office outpatient visit 15 minutes Shayna Andrade MD Work Phone: [facility] Comment on above: Pre-diabetes (Primar y Dx); S/P bariatric surgery; Weight gain; BMI 32.0-32.9,adult; Class 1 obesity with serious comorbidity and body mass index (BMI) of 32.0 to 32.9 in adult, unspecified obesity type Start: 2022 End: 06-24-2022 ambulatory FRANKY LILI DO Facility:B Start: 2022 End: 2022 Patient encounter procedure FRANKY ANN-MARIEMIRANDA DO [facility] Start: 06-07-2022 End: 06-07-2022 ambulatory [facility] Start: 05-10-2022 End: 05-10-2022 ambulatory [facility] Start: 04-26-2022 End: 04-27-2022 ambulatory FRANKY JACOBSENKO DO Facility:B Start: 04-26-2022 End: 04-26-2022 Patient encounter procedure FRANKY PEARSON DO [facility] Start: 04-15-2022 End: 04-16-2022 ambulatory FRANKY ANN-MARIEKO DO Facility:[facility] Start: 04-15-2022 End: 04-15-2022 Patient encounter procedure FRANKY ANN-MARIEKO DO [facility] Start: 03-03-2022 End: 03-03-2022 ambulatory ROBSON PUGH Facility:[facility] Start: 03-03-2022 End: 03-03-[address] ROBSON PUGH MD [facility] Start: 02-02-2022 End: 02-03-2022 ambulatory FRANKY ANN-MARIEKO DO Facility:[facility] Start: 02-02-2022 End: 02-02-2022 Patient encounter procedure FRANKY HALKO DO [facility] Start: 12-02-2021 End: 12-03-2021 ambulatory FRANKY ANN-MARIEKO DO Facility:[facility] Start: 12-02-2021 End: 12-02-2021 Patient encounter procedure FRANKY HALKO DO [facility] Start: 07-04-2021 End: 07-04-2021 Patient encounter procedure FRANKY HALKO DO [facility] Start: 06-20-2021 End: 06-20-2021 Patient encounter procedure FRANKY HALKO DO [facility] Start: 05-22-2021 End: 05-22-2021 Emergency department patient visit RUY RIVERA MD [facility] Start: 02-25-2020 End: 02-25-2020 Subsequent hospital visit by physician Sekou Aparicio Work Phone: [facility] Start: 02-05-2020 End: 02-05-2020 [facility]: 02-03-2020 Encounter for other preprocedural examination [facility] Start: 02-02-2020 End: 02-03-2020 Patient encounter procedure KATHERINE Bonds NP [facility] Start: 12-10-2019 End: 12-10-2019 Subsequent hospital visit by physician Sekou Aparicio Work Phone: [facility] Start: 10-20-2019 End: 10-20-2019 Subsequent hospital visit by physician Sekou Aparicio Work Phone: [facility] Start: 04-10-2019 End: 04-10-2019 Subsequent hospital visit by physician Rolan Jordan Work Phone: [facility] Procedures Date Procedure Procedure Detail Performing Clinician Start: 07-26-2023 CT of chest without contrast [employer] Rolan Valdes [employer] PROFESSOR Work Phone: Start: 07-24-2023 Dual energy X-ray absorptiometry [employer] Rolan Valdes [employer] PROFESSOR Work Phone: Start: 07-24-2023 Ultrasonography of breast [employer] Rolan Valdes [employer] PROFESSOR Work Phone: Start: 07-24-2023 Bilateral mammography N P-C Rolan Valdes [employer] PROFESSOR Work Phone: Start: 06-01-2023 Plain X-ray of shoulder Dr. Yessi Mcqueen Work Phone: Start: 06-08-2020 Lipid 1996 panel - S mikaela or Plasma Shayna Andrade MD Work Phone: section DR ROBSON PUGH MD Comment on above: x2 Cholecystectomy DR ROBSON MOULTON MD Colonoscopy DR ROBSON CRUZ MD Comment on above: x2 Cysto w/ureteroscopy w/rmvl/manj stones DR ROBSON PUGH MD Diagnostic laparosco py of female pelvis DR ROBSON PUGH MD Entire finger (body structure) DR ROBSON PUGH MD Comment on above: right pinky Gastric rstcv w/byp w/sm int rcnstj limit absrpj RUY RIVERA MD Hysterectomy DR ROBSON CRUZ MD Plan of Treatment Date Care Activity Detail Author Start: 2031 RSV Immunization aged 60 or older (1 - 1-dose 60+ series) RSV Immunization aged 60 or older (1 - 1-dose 60+ series) [facility] Start: 04-07-2030 DTaP/Tdap/Td Vaccines (2 - Td or Tdap) DTaP/Tdap/Td Vaccines (2 - Td or Tdap) [facility] Start: 06-08-2025 Lipid panel Lipid Panel [facility] Start: 01-16-2025 ambulatory Ambulatory Facility:[facility] Start: 02-09-2023 COVID-19 Vaccine ( season) COVID-19 Vaccine ( season) [facility] Start: 02-09-2023 Influenza vaccination Influenza Vaccine (#1) [facility] Start: 12-15-2022 End: 12-15-2022 Patient encounter procedure 12/15/2022 Office Visit Weight Management Shayna Andrade MD [address] [place], [place] [id number] [facility] Start: 10-19-2022 Zoster Vaccines (2 of 2) Zoster Vaccines (2 of 2) [facility] Start: 08-18-2022 End: 08-18-2022 Patient encounter procedure 08/18/2022 Office Visit Weight Management Shayna Andrade MD [address] [place], [place] [id number] [facility] Start: 02-09-2022 Influenza vaccination Influenza Vaccine (#1) [facility] Start: 2021 Zoster Vaccines (1 of 2) Zoster Vaccines (1 of 2) [facility] Start: 06-02-2021 COVID-19 Vaccine (4 - Booster for Moderna series) COVID-19 Vaccine (4 - Booster for Moderna series) [facility] Start: 02-10-2020 Influenza vaccination Flu vaccine (#1) [place], [place] Start: 03-14-2019 A1C test (Diabetic or Prediabetic) A1C test (Diabetic or Prediabetic) [place] Start: 03-14-2019 HbA1c (Bld) [Mass fraction] A1C test (Diabetic or Prediabetic) [place] Start: 02-09-2019 Influenza vaccination Flu vaccine (#1) [place] Start: 2011 Screening for malignant neoplasm of breast Mammogram [facility] Start: 2001 Screening for malignant neoplasm of cervix [facility] Start: 1992 Cervical cancer screen Cervical cancer screen [place], [place] Start: 1992 Screening for malignant neoplasm of cervix [facility] Start: 1990 DTaP/Tdap/Td vaccine (1 - Tdap) DTaP/Tdap/Td vaccine (1 - Tdap) [place] Start: 1990 Hepatitis A Vaccines (1 of 2 - Risk 2-dose series) Hepatitis A Vaccines (1 of 2 - Risk 2-dose series) [facility] Start: 1990 Hepatitis B vaccine (1 of 3 - Risk 3-dose series) Hepatitis B vaccine (1 of 3 - Risk 3-dose series) [place] Start: 1989 Diabetes mellitus screening Diabetes Screening [facility] Start: 1989 Diabetic microalbuminuria test Diabetic microalbuminuria test [place] Start: 1989 Hepatitis C screening Hepatitis C Screening [facility] Start: 1986 HIV screen HIV screen [place] Start: 1986 HIV screening HIV screen [place] Start: 1983 Depression Screening Depression Screening [facility] Start: 1981 [object Object] Diabetic foot exam [place] Start: 1981 Diabetic foot examination Diabetic foot exam [place] Start: 1981 Diabetic retinal exam Diabetic retinal exam [place] Start: 1981 Lipid panel Lipid [place] Start: 1981 Lipid screen Lipid [place] Start: 1977 Pneumococcal 0-64 years Vaccine (1 of 1 - PPSV23) Pneumococcal 0-64 years Vaccine (1 of 1 - PPSV23) [place] Start: 1972 Hepatitis A Vaccines (1 of 2 - Risk 2-dose series) Hepatitis A Vaccines (1 of 2 - Risk 2-dose series) [facility] Start: 1972 MMR Vaccines (1 of 1 - Standard series) MMR Vaccines (1 of 1 - Standard series) [facility] Start: 1971 Hepatitis B Vaccines (1 of 3 - 3-dose series) Hepatitis B Vaccines (1 of 3 - 3-dose series) [facility] Start: 1971 HIV screening HIV Screening [facility] Start: 1971 Screening for malignant neoplasm of colon [facility] CT Chest [facility] Patient referral [facility] Work Phone: Immunizations Immunization Date Immunization Notes Care Provider [facility] 03-27-2024 influenza, seasonal, injectable, preservative free Dr. Franky Pearson DO Work Phone: [facility] 04-16-2023 influenza, injectabl e, quadrivalent, preservative free Dr. Yessi Mcqueen Work Phone: [facility] 08-24-2022 zoster vaccine recombinant; Translations: [Shingrix] LINDA MARTINEZ MD [facility] 03-11-2022 influenza virus vaccine, unspecified formulation LINDA MARTINEZ MD [facility] Comment on above: Result Comment: at w ork 04-07-2021 SARS-CoV-2 (COVID-19 ) mRNA-[address] ROBSON PUGH MD [facility] Comment on above: Result Comment: 2021: [id number] 07-02-2020 SARS-CoV-2 (COVID-19 ) mRNA-[address] ROBSON PUGH MD [facility] Comment on above: Result Comment: 2021: [id number] 06-07-2020 SARS-CoV-2 (COVID-19 ) mRNA-[address] ROBSON PUGH MD [facility] Comment on above: Result Comment: 2021: [id number] 04-07-2020 tetanus toxoid, redu camron diphtheria toxoid, and acellular pertussis vaccine, adsorbed; Translations: [Boostrix (Tdap)] RUY RIVERA MD [facility] 03-11-2020 influenza virus vaccine, unspecified formulation RUY RIVERA MD [facility] 03-10-2020 influenza virus vaccine, unspecified formulation DR ROBSON PUGH MD [facility] 03-30-2014 influenza virus vaccine, unspecified formulation DR ROBSON PUGH MD [facility] 05-03-2012 influenza virus vaccine, unspecified formulation DR ROBSON PUGH MD [facility] Payers Date Payer Category Payer Self-pay 2024 Unknown [id number] 2024 Unknown [id number] 2021 Unknown [employer] [id number] 2021-Present [address] [place] [address] Commercial [id number] [id number] 2017 Unknown [employer] xxxxxxxxxxxxx 2017-Present [phone] [address] [place] [address] xxxxxxxxxxxxx [id number] .[id number] 2017 Unknown ALEXANDRE Bonds [id number] 2017-Present [phone] [address] [place] [address] [id number] 1.2.840.226680.1.13.239.2.7.3 .691567.315 2015 Unknown [id number] 1971 Unknown [id number] 2.16.840.1.375203.3.579.2.598 1971 Unknown [id number] 2.16.840.1.331056.3.579.2.598 1971 Unknown [id number] 2.16840.1.090958.3.579.2.598 1971 Unknown [id number] 2.16.840.1.778493.3.579.2. 1971 Unknown [id number] 2.16.840.1.572639.3.579.2. 1971 Unknown [id number] 2.16.840.1.166812.3.579.2.62 1971 Unknown [id number] 2.16.840.1.346501.3.579.2.62 1971 Unknown [id number] 2.16.840.1.259200.3.579.2.627 1971 Unknown [id number] 2.16.840.1.178592.3.579.2. 1971 Unknown [id number] 2.16.840.1.826756.3.579.2.627 1971 Unknown [id number] 2.16.840.1.458254.3.579.2. 1971 Unknown [id number] 2.16.840.1.147901.3.579.2.627 1971 Unknown [id number] 2.16.840.1.123894.3.579.2.627 1971 Unknown [id number] 2.16.840.1.451053.3.579.2.627 1959 Unknown [id number] Unknown [id number] 2.16.840.1.109361.3.579.2.598 Unknown [id number] 2.16.840.1.838892.3.579.2.462 Unknown [id number] 2.16.840.1.137605.3.579.2.462 Unknown [id number] 2..840.1.102352.3.579.2.462 Unknown [id number] 2..840.1.849498.3.579.2.462 Unknown [id number] 2.16.840.1.994532.3.579.2.462 Unknown [id number] 2.16.840.1.021543.3.579.2.462 Unknown [id number] 2.16.840.1.611855.3.579.2.462 Unknown [id number] 2.16.840.1.690596.3.579.2.462 Unknown [id number] 2.16.840.1.572303.3.579.2.462 Unknown [id number] 2.16.840.1.330434.3.579.2.462 Unknown [id number] 2.16.840.1.579929.3.579.2.462 Unknown [id number] 2.16.840.1.830499.3.579.2.462 Unknown [id number] 2.16.840.1.288333.3.579.2.462 Unknown [id number] 2.16.840.1.746630.3.579.2.462 Unknown [id number] 2.16.840.1.727811.3.579.2.462 Unknown [id number] 2.16.840.1.631748.3.579.2.462 Unknown [id number] 2.16.840.1.185586.3.579.2.462 Unknown [id number] 2.16.840.1.642520.3.579.2.462 Unknown [id number] 2.16.840.1.105231.3.579.2.462 Unknown [id number] 2.16.840.1.045422.3.579.2.462 Unknown [id number] 2.16.840.1.994151.3.579.2.462 Unknown [id number] 2.16.840.1.500289.3.579.2.462 Unknown [id number] 2.16.840.1.522528.3.579.2.462 Unknown [id number] 2.16.840.1.947164.3.579.2.462 Unknown [id number] 2.16.840.1.473445.3.579.2.462 Unknown [id number] 2.16.840.1.694227.3.579.2.462 Unknown [id number] 2.16.840.1.806832.3.579.2.462 Unknown [id number] 2.16.840.1.877121.3.579.2.462 Unknown [id number] 2.16.840.1.010719.3.579.2.462 Unknown [id number] 2.16.840.1.841187.3.579.2.462 Social History Date Type Detail Facility Start: 12-10-2019 End: 08-19-2024 Tobacco smoking status NHIS Never smoker [place] Start: 12-10-2019 End: 07-07-2022 Alcohol intake Ex-drinker (finding) [facility] Start: 04-01-2018 Alcohol Comment less than once a mon th [employer] KARI, SILVESTRE Start: 1970 Sex Assigned At Not on file M [employer]manuel [employer] SILVESTRE PIERCE Start: 04-10-2019 End: 02-25-2020 Tobacco use and exposure Never used [employer]IL[employer]STRE PIERCE Start: 04-10-2019 End: 07-07-2022 Alcohol intake Not Currently [employer] SILVESTRE PIERCE Start: 1970 Sex Assigned At Female A [facility] Start: 06-27-2022 End: 08-18-2022 Exposure to SARS-CoV-2 (event) Not sure [employer] Start: 07-07-2022 History of Social function [facility] [employer] Medical Equipment Procedure Code Equipment Code Equipment Origin al Text Equipment Identifier Dates See Instructions , dx E16.2; check BGT due to hypoglycemic symptoms, up to once per day; dispense 100 glucose test strips, # 100 EA, 0 Refill(s), Pharmacy: [facility], 164, cm, 04/04/22 8:05:00 EDT, Height, 86.1 Start: 04-04-2022 See Instructions , dx E16.2; check BGT due to hypoglycemic symptoms, up to once per day; dispense 100 lancets., # 100 EA, 0 Refill(s), Pharmacy: [facility], 164, cm, 04/04/22 8:05:00 EDT, Height, 86.1 Start: 04-04-2022 See Instructions , dx E16.2; check BGT due to hypoglycemic symptoms, up to once per day; dispense 100 glucose test strips, # 100 EA, 0 Refill(s), Pharmacy: [facility], 164, cm, 04/04/22 8:05:00 EDT, Height, 86.1 Start: 04-04-2022 See Instructions , dx E16.2; check BGT due to hypoglycemic symptoms, up to once per day; dispense 100 lancets., # 100 EA, 0 Refill(s), Pharmacy: [facility], 164, cm, 04/04/22 8:05:00 EDT, Height, 86.1 Start: 04-04-2022 See Instructions , dx E16.2; check BGT due to hypoglycemic symptoms, up to once per day; dispense 100 glucose test strips, # 100 EA, 0 Refill(s), Pharmacy: [facility], 164, cm, 04/04/22 8:05:00 EDT, Height, 86.1 Start: 04-04-2022 See Instructions , dx E16.2; check BGT due to hypoglycemic symptoms, up to once per day; dispense 100 lancets., # 100 EA, 0 Refill(s), Pharmacy: [facility], 164, cm, 04/04/22 8:05:00 EDT, Height, 86.1 Start: 04-04-2022 See Instructions , dx E16.2; check BGT due to hypoglycemic symptoms, up to once per day; dispense 100 glucose test strips, # 100 EA, 0 Refill(s), Pharmacy: [facility], 164, cm, 04/04/22 8:05:00 EDT, Height, 86.1 Start: 04-04-2022 See Instructions , dx E16.2; check BGT due to hypoglycemic symptoms, up to once per day; dispense 100 lancets., # 100 EA, 0 Refill(s), Pharmacy: [facility], 164, cm, 04/04/22 8:05:00 EDT, Height, 86.1 Start: 04-04-2022 See Instructions , dx E16.2; check BGT due to hypoglycemic symptoms, up to once per day; dispense 100 glucose test strips, # 100 EA, 0 Refill(s), Pharmacy: [facility], 164, cm, 04/04/22 8:05:00 EDT, Height, 86.1 Start: 04-04-2022 See Instructions , dx E16.2; check BGT due to hypoglycemic symptoms, up to once per day; dispense 100 lancets., # 100 EA, 0 Refill(s), Pharmacy: [facility], 164, cm, 04/04/22 8:05:00 EDT, Height, 86.1 Start: 04-04-2022 See Instructions , dx E16.2; check BGT due to hypoglycemic symptoms, up to once per day; dispense 100 glucose test strips, # 100 EA, 0 Refill(s), Pharmacy: [facility], 164, cm, 04/04/22 8:05:00 EDT, Height, 86.1 Start: 04-04-2022 See Instructions , dx E16.2; check BGT due to hypoglycemic symptoms, up to once per day; dispense 100 lancets., # 100 EA, 0 Refill(s), Pharmacy: [facility], 164, cm, 04/04/22 8:05:00 EDT, Height, 86.1 Start: 04-04-2022 See Instructions , dx E16.2; check BGT due to hypoglycemic symptoms, up to once per day; dispense 100 glucose test strips, # 100 EA, 0 Refill(s), Pharmacy: [facility], 164, cm, 04/04/22 8:05:00 EDT, Height, 86.1 Start: 04-04-2022 See Instructions , dx E16.2; check BGT due to hypoglycemic symptoms, up to once per day; dispense 100 lancets., # 100 EA, 0 Refill(s), Pharmacy: [facility], 164, cm, 04/04/22 8:05:00 EDT, Height, 86.1 Start: 04-04-2022 Goals Date Patient Goal Desired Activity /State Functional Status Date Assessment Result Facility 08-26-2022 Functional Status Independent [facility] 03-03-2022 Functional Status Maintained, Less than 8 hours [facility] Clinical Notes 05-22-2021 to 09-25-2024 Note Date & Type Note Facility 09-25-2024 Evaluation note Diagnosis Onset Date Resolution Segmental and somatic dysfunction of cervical region acute September 25, 2024 10:18am Segmental and somatic dysfunction of lumbar region acute September 25, 2024 10:18am Segmental and somatic dysfunction of pelvic region acute September 25, 2024 10:18am Segmental and somatic dysfunction of thoracic region acute September 25, 2024 10:18am Bloating acute November 26 9:28am Constipation acute November 26, 2 025 9:28am Nausea acute November 26 9:28am Rectal bleeding acute November 9:28am Rectal pain acute November 26 9:28am H/O gastric bypass chronic November 092024 9:28am Segmental and somatic dysfunction of cervical region acute December 18, 2024 11:56am Segmental and somatic dysfunction of lumbar region acute December 18, 2024 11:56am Segmental and somatic dysfunction of pelvic region acute December 18, 2024 11:56am Segmental and somatic dysfunction of thoracic region acute December 18, 2024 11:56am [facility] Work Phone: 1(402) 556-460904-17-2025 Evaluation note* Diagnosis Onset Date Resolution Status Admit Date Segmental and somatic dysfunction of cervical region acute A pril 2024 10:18am Segmental and somatic dysfunction of lumbar region acute Apr il 2024 10:18am Segmental and somatic dysfunction of pelvic region acute Sep 10:18am Segmental and somatic dysfunction of thoracic region acute A pril 2024 10:18am Bloating acute November 26 9:28am Constipation acute November 26, 9:28am Nausea acute November 26 9:28am Rectal bleeding acute November 9:28am Rectal pain acute November 26 9:28am H/O gastric bypass chronic November 092024 9:28am Segmental and somatic dysfunction of cervical region acute J 2024 11:56am Segmental and somatic dysfunction of lumbar region acute Dec 11:56am Segmental and somatic dysfunction of pelvic region acute Dec 11:56am Segmental and somatic dysfunction of thoracic region acute J 2024 11:56am Segmental and somatic dysfunction of cervical region acute J darnell 2024 9:09am Segmental and somatic dysfunction of lumbar region acute Dec 9:09am Segmental and somatic dysfunction of pelvic region acute Dec 9:09am Segmental and somatic dysfunction of thoracic region acute J darnell 2024 9:09am [facility] Work Phone: 1(409) 671-728203-05-2025 Evaluation note* Diagnosis Onset Date Resolution Status Admit Date Bacterial sinusitis acute August 13, 2024 8:27am Lower respiratory tract infection acute August 13, 2024 8:27am Solitary pulmonary nodule acute August 19, 2024 9:02am Segmental and somatic dysfunction of cervical region acute A pril 2024 10:18am Segmental and somatic dysfunction of lumbar region acute Apr il 2024 10:18am Segmental and somatic dysfunction of pelvic region acute Apr 2024 10:18am Segmental and somatic dysfunction of thoracic region acute A pril 2024 10:18am Bloating acute November 26 9:28am Constipation acute November 26, 025 9:28am Nausea acute November 26 9:28am Rectal bleeding acute November 9:28am Rectal pain acute November 26 9:28am H/O gastric bypass chronic November 092024 9:28am [facility] [email or web address] Work Phone: 1(133) 811-453308-08-2023 Telephone encounter Note* Telephone Encounter - Liya Walker - 01/16/2023 4:54 PM EDT Name of Caller: Amanda Contact Reason for Appointment: Pt needs to cancel upcoming appt and the pt sill call back to resx. Please advise Office Name: [facility] Medication Refills need, if any: NA Medication [id number] Miscellaneous Notes* Telephone Encounter - Liya Walker - 01/16/2023 4:54 PM EDT Name of Caller: Amanda Contact Reason for Appointment: Pt needs to cancel upcoming appt and the pt sill call back to resx. Please advise Office Name: [facility] Medication Refills need, if any: NA Medication Name: NA documented in this [facility]The [id number] Discharge instructions Patient Education 08/26/2022 17:49:43 Chest Pain, [...] the signs of a serious problem take moretime to appear. Many problems not related to [...] Swelling, pain or redness in one leg 4714-4977 [employer]. [address] [place] [address]89. All rights reserved. This information is not intended as a substitute for professional medical care. Always follow yourhealthcare professional's instructions. Follow Up Care 08/26/2022 16:01:09 With:FRANKY PEARSON Address: [address] [facility] [place] [phone] Business (1) When:2-4 days Comments:Schedule appointment as soon as possibleReturn to ED if symptoms worsenClear liquid diet till 12noon and if symptoms do not recur increase as tolerated.Follow up for outpatient stress testing.Return for symptoms as described [facility] 03-18-2023 Note Discharge Instructions Thank you for allowing [facility] to assist you with your healthcare needs. The following is importantdischarge information regarding your hospital visit. Diagnosis from [...] Return for symptoms as described Where: [address] [facility] [place] [phone] Business (1) Allergies NKA Medications Please ask [...] the signs of a serious problem take moretime to appear. Many problems not related to [...] Swelling, pain or redness in one leg 7526-4262 [employer]. [address] [place] [address], [place] [address]. All rights reserved. This information is not intended as a substitute for professional medical care. Always follow yourhealthcare professional's instructions. Additional Information VACCINATE! IT SAVES LIVES! Members of the community who have not yet received the COVID-19 vaccine and would like to receive it can visit one of [facility] vaccine clinics. There are many vaccine clinic locations within the [facility]. For locations and available times, please visit www.[email or web address].[email or web address]/. It is important to note that some COVID mobile vaccine clinics are held outdoors and may be canceled in rainy or stormy conditions. To learn more about pediatric vaccinations (ages 5-11), we invite you to visit the [facility] webpage. [email or web address]/[email or web address] [email or web address] learn more about the COVID-19 vaccine, we invite you to visit the CDC website for a list of frequently asked questions. https://www.cdc.gov/coronavirus/2019-ncov/vaccines/faq.html [facility] Patient Portal Access Instructions: Stay connected with your healthcare team and access your personal medical information anytime with the [facility] Patient Portal. If you would like a full copy of your medical records please contact the [facility] Medical Records Department Sunday through Sunday between 8a.m. and 4:30p.m. Please follow the directions below to access the portal: 1.Access the email account you provided upon registration to the hospital.2.Look for an invitation email from [facility].3.Open the email and access the invitation link: Accept Invitation to [facility]4.Fill in the required mckenzie to create your account. Sign into [email or web address] with your username and password that you [...] you will allow to register on the [facility] [employer] Patient Portal for access to your information. You can also access the [facility] Patient Portal on the [employer]. Simply click on Health Records under [employer] and then click on the [facility] logo. HOW TO SAFELY DISPOSE OF PRESCRIPTION [...] Call your local pharmacy or go to [email or web address] to find one close to you.3.Make use of household items: Use cat litter or old coffee grounds to dispose medications if other options arenot available. Mix your drugs with these household products, seal them in an airtight container andthrow it into the garbage. Call [facility]: [phone] to be sure your drugs can be [...] drowsiness, such as benzodiazepines, also known as benzos,including diazepam and alprazolam, muscle relaxants or sleep aids. Never sell or share prescriptionopioids. This is illegal. Store opioids in a [...] that I should contact my d octor. Patient/Setter Out Signature: Date/Time: Relationship to Patient: Witness Name/Signature: Date/Time: [facility]03-18-2023 Note ORIGINAL EXAMINATION: CT OF THE ABDOMEN [...] Date: 08/26/2022 6:34:22 PM Ordering Provider: LINDA [facility]23 Note ORIGINAL EXAMINATION: CT OF THE ABDOMEN [...] Date: 08/26/2022 6:34:22 PM Ordering Provider: LINDA [facility] [address]03-18-2023 Note ORIGINAL EXAMINATION: ONE XRAY VIEW OF [...] Sign Date: 08/26/2022 5:14:04 PM Ordering Provider: [facility]03-18-2023 Note ORIGINAL EXAMINATION: ONE XRAY VIEW OF [...] Sign Date: 08/26/2022 5:14:04 PM Ordering Provider: [facility]03-10-2023 [facility] CENTER POST-OP WEIGHT LOSS MANAGEMENT PROGRESS NOTE [...] was performed.Clinical documentation is updated and completed. [facility] [id number] History of Present illness Narrative* Mary Mishra MA - 08/18/2022 2:10 PM EST [facility] ROOMING NOTE POST WEIGHT [...] Exercising: yes If yes: Type: gym with rehab trainer Times per week: 3 Min per session: 60 Falls Risk Assessment Patient does take medications which affect BP or mental status Patient does not t have newly prescribed or changed dosage of medications within past 30 days whichaffect BP or mental status Patient has not [...] or JAD If YES: [facility] N/A If yes see Labs Tab Labs completed at Non[facility] facility? N/A If yes see Encounters Tab - Orders only - Historical Provider - Date: Completed by: Mary Mishra MA * Shayna Andrade MD - 08/18/2022 2:10 PM EST [facility] POST-OP WEIGHT LOSS MANAGEMENT [...] is updated and completed. documented in this [facility]01-27-2023 [facility] CENTER POST-OP WEIGHT LOSS MANAGEMENT PROGRESS NOTE [...] preDM 4. Weight maintenance after bariatric surgery [facility] 07-07-2022 History of Present illness Narrative* Manuel Preciado MA - 07/07/2022 10:30 AM EST [facility] ROOMING NOTE POST WEIGHT LOSS SURGERY FOLLOW UP Patient: Amanda Grubbs Service Date: 07/07/2022 Patient is 5 year(s) s/p RnY Gastric Bypass Today's Metrics: Post-Surgical Weight Loss Date: 07/07/22 Height: 5' 3.25 (160.7 cm) Weight: 183 lb 12.8 oz (83.4 kg) BMI: 32.30 Weight Change: -4.2 lbs Total Weight Change: <No Pre-Surgical Weight on File> % EBWL: <UNK> Comments: pop d/e fu Post-op Weight Metrics: Post-Surgical Weight Loss Date: 07/07/22 Height: 5' 3.25 (160.7 cm) Weight: 183 lb 12.8 oz (83.4 kg) BMI: 32.30 Weight Change: -4.2 lbs Total Weight Change: <No Pre-Surgical Weight on File> % EBWL: <UNK> Comments: pop d/e fu (From Surgical Weight Loss Tracker) Patient has the following questions: None Reported Pain: Patient rates pain on scale 0-10 as: 0 Exercise Compliance: Exercising: yes If yes: Type: walking Times per week: 3 Min per session: 30 Falls Risk Assessment Patient does take medications which affect BP or mental status Patient does not t have newly prescribed or changed dosage of medications within past 30 days whichaffect BP or mental status Patient has not fallen in the past 2 months Patient does not t demonstrate unsteady gait Patient uses the following ambulatory assistive devices: nonen Patient states the presence of the following traits which increases risk of fall: one Patient is not on home O2 Pre-op Weight Metrics: Labs Completed: no - If NO, patient instructed to get labs drawn today or JAD If YES: Labs completed at [facility]? N/A If yes see Labs Tab Labs completed at Non-[facility] facility? N/A If yes see Encounters Tab - Orders only - Historical Provider - Date: Completed by: Manuel Preciado MA * Shayna Andrade MD - 07/07/2022 10:30 AM EST [facility] POST-OP WEIGHT LOSS MANAGEMENT [...] lb 12.8 oz (83.4 kg) BMI 32.30 kg/m General: This patient is alert and [...] 150-300 min/wk and strength training 2-3 times perwk. 3.preDM Is associated with obesity and weight loss/ weight maintenance is discussed as a treatment option for HTN preDM 4. Weight maintenance after bariatric surgery discussed documented in this [facility]01-13-2023 Note ORIGINAL HISTORY: Lung nodule COMPARISON: 02 [...] Sign Date: 2022 12:43:51 PM Ordering Provider: [facility]01-13-2023 Note ORIGINAL HISTORY: Lung nodule COMPARISON: 02 [...] Sign Date: 2022 12:43:51 PM Ordering Provider: [facility]12-28-2022 Note [facility] POST-OP WEIGHT LOSS MANAGEMENT [...] was performed.Clinical documentation is updated and completed. [facility] [id number] Evaluation + Plan noteExtracted from: Title:Clinical Document Author:ROBSON PUGH Date:03/03/22 [place] ADMISSION HISTORY AN D PHYSICIAL CHIEF COMPLAINT: HISTORY OF PRESENT ILLNESS: REVIEW OF SYSTEMS: ACTIVE PROBLEMS: (24) Abnormal mammogram (601281827) Abnormal screening computed tomography (CT) of lung (4698544581) Anxiety (38839538) Breast cancer screening (699378933) Cervical cancer screening (9859907430) Colon cancer screening (973434174) Encounter for well adult exam with abnormal findings (307251964) GERD (gastroesophageal reflux disease) (267088886) Hot flashes due to menopause (236247946) Immunization due (069989270) Insomnia (915929704) 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) Nephrolithiasis (537171708) Obesity (3151212412) Post-menopausal (564137071) Pre-diabetes (3040928135) Preoperative evaluation of a medical condition to rule out surgical contraindications (TAR required) (803480348) Restless legs (15841446) Right arm pain (808050780) S/P gastric bypass (1468427116) Screening for cardiovascular condition (624434192) Somatic dysfunction of upper extremity (3719246588) Tobacco non-user (365260666) Viral syndrome (32397720) MEDICATIONS: Active Inpt Meds: None Active PRN Meds: None One Time Meds: None Active IV Meds: Lactated Ringers Infusion 1,000 mL (LR 1,000 mL) Start: 03/03/22 7:52:00 EDT, Rate: 50 mL/hr, 03/03/22 7:52:00 EDT ALLERGIES: (1) NKA FAMILY HISTORY: SOCIAL HISTORY: PHYSICAL EXAM: VITALS: BqmkfdZsgzSJKllxnTWPsG7JMW8QdywFu(kg) 03/03 07:5536.7126/80224493TN74/23 79.5 24 Hr Tmax: 36.7 at 03/03 [...] Date:04/04/2022 08:00:00 AM Scheduled Provider:FRANKY PEARSON DO Location:[facility] Appointment Type: OV Appointment Date:05/30/2022 09:00:00 AM Scheduled Provider:FRANKY PEARSON DO Location:[facility] Appointment Type:PC OV Future Scheduled Tests [...] MA Mammogram Diagnostic Bilateral w/o Juma 01/01/22 [facility] 09-23-2022 Hospital Discharge instructions Patient Education 03/03/2022 [...] before eating solid foods. General instructions Take eozi-axf-auxizxk and prescription medicines only as told by [...] 09/17/2016 Document Revised: 08/26/2018 Document Reviewed: 09/17/2016 [employer] Patient Education 2020 [employer]. 03/03/2022 09:18:09 Colonoscopy, Adult, Care After Colonoscopy, [...] a slower pace than normal. ?Eat soft, rrmf-xt-hgtnyt foods. Take qwai-mhz-yrojteu or prescription medicines only as told by [...] 01/09/2005 Document Revised: 03/20/2018 Document Reviewed: 08/08/2016 [employer] Patient Education 2020 Upfront Chromatography. Follow Up Care 01/09/2022 13:05:28 With:ROBSON PUGH MD Address: [address] [facility] [address] [place], [place] [phone] [phone] When: Unknown Comments:Follow-up as needed [facility] 09-23-2022 Summary of episode note Discharge Instructions Thank you for allowing [facility] to assist you with your healthcare needs. The following is importantdischarge information regarding your hospital visit. Your Care Team FRANKY PEARSON DO What to do next Scheduled Follow-Up Appointments Appointment Type When With Where Contact InformationPC OV 04/04/2022 08:00 AM EDT FRANKY PEARSON DO [facility] [address] [phone] PC OV 05/30/2022 09:00 AM EST FRANKY PEARSON DO [facility] [address] [phone] Follow Up Appointments Follow Up with ROBSON PUGH MD When Why: Follow-up as needed Where: [address] [place] [address] [address] [place], [place] [address]- [phone] Allergies NKA Medications Please ask your primary [...] before eating solid foods. General instructions Take okel-cgy-izyjqqg and prescription medicines only as told by [...] 09/17/2016 Document Revised: 08/26/2018 Document Reviewed: 09/17/2016 [employer] Patient Education 2020 Upfront Chromatography. Colonoscopy, Adult, Care After This sheet gives [...] slower pace than normal. ? Eat soft, lgbb-xt-wixcbp foods. Take venn-dkg-rmqbxbx or prescription medicines only as told by [...] 01/09/2005 Document Revised: 03/20/2018 Document Reviewed: 08/08/2016 [employer] Patient Education 2020 [employer] Additional Information VACCINATE! IT SAVES LIVES! Members of the community who have not yet received the COVID-19 vaccine and would like to receive it can visit one of [facility] vaccine clinics. There are many vaccine clinic locations within the [facility]. For locations and available times, please visit [email or web address] It is important to note that some COVID mobile vaccine clinics are held outdoors and may be canceled in rainy or stormy conditions. To learn more about pediatric vaccinations (ages 5-11), we invite you to visit the [facility] webpage. [email or web address] learn more about the COVID-19 vaccine, we invite you to visit the [facility] website for a list of frequently asked questions. [email or web address] [facility] Patient Portal Access Instructions: Stay connected with your healthcare team and access your personal medical information anytime with the [facility] Patient Portal.If you would like a full copy of your medical records, please contact the [facility] Medical Records Department, Sunday through Sunday between 8a.m. and 4:30p.m. Please follow the directions below to access the portal: 1.Access the email account you provided upon registration to the [facility].2.Look for an invitation email from [facility].3.Open the email and access the invitation link: Accept Invitation to [facility]4.Fill in the required mckenzie to create your account. Sign into [email or web address] with your username and password that you [...] you will allow to register on the [facility] Patient Portal for access to your information. You can also access the [facility] Patient Portal on the [employer] ramírez. Simply click on Health Records under HealthData and then click on the [facility] logo. HOW TO SAFELY DISPOSE OF PRESCRIPTION [...] Call your local pharmacy or go to http://bit.ly/4G4Mo0g to find one close to you.3.Make use of household items: Use cat litter or old coffee grounds to dispose medications if other options arenot available. Mix your drugs with these household products, seal them in an airtight container andthrow it into the garbage. Call [facility]: [phone] to be sure your drugs can be [...] that I should contact my d octor. Patient/Setter Out Signature: Date/Time: Relationship to Patient: Witness Name/Signature: Date/Time: [facility]09-23-2022 Anesthesiology Consult note Patient: AMANDA GRUBBS Age: 51 years Sex: Female : 1970 Associated Diagnoses: None Author: SANTIAGO GUTIERREZ Assessment Postanesthesia assessment Vitals: Vital signs from [...] status: within normal limits. Digitally Signed by SANTIAGO GUTIERREZ on 03/03/2022 09:12 AM [facility]09-23-2022 Anesthesiology Consult note Patient: AMANDA GRUBBS Age: 51 years Sex: Female : 1970 Associated Diagnoses: None Author: SANTIAGO GUTIERREZ Preoperative Information Time of last solid [...] Problem list: Medical Anxiety / SNOMED CT 66800061 / Confirmed Cervical cancer screening / SNOMED CT 6333994491 / Confirmed Abnormal screening computed tomography (CT) of lung / SNOMED CT 0357669763 / Confirmed GERD (gastroesophageal reflux disease) / SNOMED CT 250317607 / Confirmed S/P gastric bypass / SNOMED CT 4664273389 / Confirmed Immunization due / SNOMED CT 559806197 / Confirmed Insomnia / SNOMED CT 763108391 / Confirmed Nephrolithiasis / SNOMED CT 981697700 / Confirmed Major depression in remission / SNOMED CT 74074679 / Confirmed Abnormal mammogram / SNOMED CT 541761736 / Confirmed Hot flashes due to menopause / SNOMED CT 866492359 / Confirmed Obesity / SNOMED CT 5615129756 / Confirmed Right arm pain / SNOMED CT 257144093 / Confirmed Preoperative evaluation of a medical condition to rule out surgical contraindications (TAR required) / SNOMED CT 963027406 / Confirmed Screening for cardiovascular condition / SNOMED CT 078135703 / Confirmed Breast cancer screening / SNOMED CT 993550807 / Confirmed Colon cancer screening / SNOMED CT 555084021 / Confirmed Encounter for well adult exam with abnormal findings / SNOMED CT 993110800 / Confirmed Post-menopausal / SNOMED CT 141025011 / Confirmed Pre-diabetes / SNOMED CT 4175474660 / Confirmed Restless legs / SNOMED CT 80613478 / Confirmed Somatic dysfunction of upper extremity / SNOMED CT 5229253362 / Confirmed Tobacco non-user / SNOMED CT 593733684 / Confirmed Viral syndrome / SNOMED CT 55438142 / Confirmed, Active Problems (24) Abnormal mammogram [...] with small intestine reconstruction to limit absorption (57907). Endometrial ablation (256177607). Diagnostic laparoscopy of female pelvis (941760968). Hysterectomy (721195692). section (18992799). Comments: 03/03/2022 7:52 Rhonda Saxena RN x2 Cholecystectomy (13084895). Colonoscopy (538231634). Comments: 03/03/2022 7:53 Rhonda Saxena RN x2 Cystourethroscopy, with ureteroscopy and/or pyeloscopy; with removal or manipulation of calculus (ureteral catheterization is included) (41706). Entire finger (205841672). Comments: 03/03/2022 7:53 Rhonda Saxena RN right pinky Social History Social & Psychosocial Habits Alcohol 06/27/2019 Use: Current Frequency: 1-2 times per month Substance Abuse 06/27/2019 Use: Never Tobacco 06/27/2019 Tobacco Use: Never (less than 100 in l Home/Environment 03/03/2022 Domestic Concerns None Living situation: Home/Independent Primary Ecological Risk Assessor: Self Current Home Treatments None Special Services [...] Vital Signs(last 24 hrs) Last Charted Temp Syitgbic03.7 DegC (MAR 03 07:55) Heart Rate Wnuahvmmg97 bpm (MAR 03 09:00) Resp Rate 19 br/min (MAR 03 09:00) RGI405 mmHg (MAR 03 08:55) DBP87 mmHg (MAR 03 08:55) BMI30.07 (MAR 03 07:55) Measurements from flowsheet : Measurements 03/03/2022 7:55 EDT Height 162.6 cm Admission Weight 79.5 kg Weight Method Stated Vernalis Body Weight 54.74 kg BSA Admission 1.85 [...] Surgeon SN - CAt - Role Performed Vending Technician 1 SN - CAt - Role Performed FILENET ARCHITECT SN - CAt - Role Performed Veneer Stacker 03/03/2022 8:53 EDT [place] History and Physical 03/03/2022 8:09 EDT Continuous [...] EDT Designated Person #1 We May Share [facility] Gilles Grubbs [phone] Designated Person #1 Relationship Spouse Designated Person #2 We May Share [facility] Jimmy Romie [phone] Designated Person #2 Relationship Daughter Privacy Restrictions Requested None Height 162.6 cm Admission Weight 79.5 kg Weight Method Stated Vernalis Body Weight 54.74 kg BSA Admission 1.85 [...] On Arrival Family Contact Name and Number Jimmy GI Prep Sutab GI Prep Completed Yes [...] Method Explanation, Printed materials Preferred Written Language Panamanian Preferred Spoken Language Panamanian Information Given by Patient Patient's Current Physicians [...] Note-Nursing Procedure/Therapy Intake . Assessment and Plan [place] [employer] Anesthesiologists (ASA) physical status classification: Class III. Anesthetic Preoperative Plan Anesthetic technique: MAC. Informed consent: signed by patient. Digitally Signed by SANTIAGO GUTIERREZ on 03/03/2022 09:08 AM [facility]09-23-2022 Note [place] ADMISSION HISTORY AND PHYSICIAL CHIEF COMPLAINT: HISTORY OF PRESENT ILLNESS: REVIEW OF SYSTEMS: ACTIVE PROBLEMS: (24) Abnormal mammogram (067637123) Abnormal screening computed tomography (CT) of lung (5360233794) Anxiety (93777682) Breast cancer screening (554237645) Cervical cancer screening (0066174136) Colon cancer screening (883791968) Encounter for well adult exam with abnormal findings (989421460) GERD (gastroesophageal reflux disease) (210266544) Hot flashes due to menopause (936789065) Immunization due (278884936) Insomnia (575651997) Major depression in remission (33552407) Nephrolithiasis (846691320) Obesity (0992211561) Post-menopausal (548407690) Pre-diabetes (0716875187) Preoperative evaluation of a medical condition to rule out surgical contraindications (TAR required) (924711892) Restless legs (61302756) Right arm pain (545411175) S/P gastric bypass (5427678383) Screening for cardiovascular condition (746073766) Somatic dysfunction of upper extremity (7693609884) Tobacco non-user (661499582) Viral syndrome (43328151) MEDICATIONS: Active Inpt Meds: None Active PRN Meds: None One Time Meds: None Active IV Meds: Lactated Ringers Infusion 1,000 mL (LR 1,000 mL) Start: 03/03/22 7:52:00 EDT, Rate: 50 mL/hr, 03/03/22 7:52:00 EDT ALLERGIES: (1) NKA FAMILY HISTORY: SOCIAL HISTORY: PHYSICAL EXAM: VITALS: YkbzfwZafvGODuejzSGRxA1YXP0JgsbOr(kg) 03/03 07:5536.7126/86094285ZM00/23 79.5 24 Hr Tmax: 36.7 at 03/03 [...] H&P unless noted below. Digitally Signed by ROBSON PUGH MD on 03/03/2022 08:58 AM [facility]03-14-2022 Evaluation + Plan note Future Scheduled [...] 01/01/22 * US Breast Right Complete 01/01/22 [facility] 03-14-2022 Evaluation + Plan note Future [...] MA Mammogram Diagnostic Bilateral w/o Juma 01/01/22 [facility] 12-12-2021 Hospital Discharge instructions Patient Education [...] If needed, more treatment may be started. 5943-2637 [employer]. [address] [place] [address]. All rights reserved. This information is not [...] neck Chest pain not caused by coughing [phone] [employer]. [address] [place] [address]. All rights reserved. This information is not [...] foods again, start with small amounts of txul-fl-hciufb, low- fat foods. These include apple sauce, [...] increase stomach acid. Don't use aspirin or ojvg-cjm-xhsqcqk pain and fever medicines, if possible. This includes nonsteroidal anti-inflammatory drugs (NSAIDs). Lose excess weight. Finish eating at least 2 hours before you go to bed or lie down. Raise the head of your bed. 6847-9857 [employer]. [address] [place] [address], [place] [address]. All rights reserved. This information is not intended as a substitute for professional medical care. Always follow yourhealthcare professional's instructions. Follow Up Care 05/22/2021 04:01:53 With:FRANKY PEARSON DO Address: [phone] When:2-4 days [facility] evAdzunaation + Plan note Future Appointments Appointment Date:05/31/2021 08:30:00 AM Scheduled Provider:FRANKY PEARSON DO Location:[facility] [place] Appointment Type:PC OV Follow Up Appointment Date:06/20/2021 08:30:00 AM Scheduled Provider: Location:[facility] Appointment Type:US Breast Right Complete Future Scheduled Tests Radiology* US Breast Right Complete 06/20/21 [facility] [employer] Therapiesaluation + Plan note Future Appointments Appointment Date:08/31/2021 08:30:00 AM Scheduled Provider:FRANKY PEARSON DO Location:[facility] Appointment Type:PC OV Follow Up Future Scheduled Tests Radiology* CT Thorax w/o Contrast 06/28/21 [facility] [employer] Therapiesaluation + Plan note Future Appointments Appointment Date:08/31/2021 08:30:00 AM Scheduled Provider:FRANKY PEARSON DO Location:[facility] [place] Appointment Type:PC OV Follow Up Future Scheduled Tests Radiology* MA Mammogram Diagnostic Bilateral w/o Juma 01/01/22 * US Breast Right Complete 01/01/22 [facility] [employer] Therapiesaluation + Plan note Future Appointments Appointment Date:05/30/2022 09:00:00 AM Scheduled Provider:FRANKY PEARSON DO Location:[facility] [place] Appointment Type:PC OV Future Scheduled Tests [...] 08/22/21 * Complete Metabolic Panel 08/22/21 * [facility] Lab Send out (Blood Specimens) 11/22/21 Radiology* US Breast Right Limited 08/08/22 * CT Thorax w/o Contrast 06/07/22 * MA Mammogram Diagnostic Bilateral w/o Juma 01/01/22 [facility] Evaluation + Plan note Future Appointments Appointment Date:05/30/2022 09:00:00 AM Scheduled Provider:FRANKY PEARSON DO Location:[facility] Appointment Type:PC OV Diagnostic Tests Pending [...] MA Mammogram Diagnostic Bilateral w/o Juma 01/01/22 [facility] Evaluation + Plan note Future Appointments Appointment Date:08/24/2022 08:00:00 AM Scheduled Provider:FRANKY PEARSON DO Location:[facility] Appointment Type:PC Wellness Annual Future Scheduled Tests Laboratory* Ferritin 11/22/21 * Folate Level 08/22/21 * Vitamin B12 Level 11/22/21 * Zinc Level 11/22/21 * [facility] Lab Send out (Blood Specimens) 11/22/21 Radiology* US Breast Right Limited 08/08/22 * CT Thorax w/o Contrast 06/23/23 * MA Mammogram Diagnostic Bilateral w/o Juma 01/01/22 [facility] Evaluation + Plan note Future Appointments Appointment Date:08/24/2022 08:00:00 AM Scheduled Provider:FRANKY PEARSON DO Location:[facility] Appointment Type:PC Wellness Annual Future Scheduled Tests Laboratory* Ferritin 11/22/21 * Vitamin B12 Level 11/22/21 * Zinc Level 11/22/21 * [facility] Lab Send out (Blood Specimens) 11/22/21 Radiology* CT Thorax w/o Contrast 06/23/23 * MA Mammogram Diagnostic Bilateral w/o Juma 01/01/22 [facility] Evaluation + Plan note Future Appointments Appointment Date:11/29/2022 08:00:00 AM Scheduled Provider:FRANKY PEARSON DO Location:[facility] Appointment Type: OV Future Scheduled Tests Laboratory* [...] MA Mammogram Diagnostic Bilateral w/o Juma 02/09/23 [facility] Evaluation + Plan note Future Appointments Appointment Date:09/13/2022 08:00:00 AM Scheduled Provider: Location:[facility] Appointment Type:CV Procedure - AOH Echo Appointment Date:09/19/2022 07:45:00 AM Scheduled Provider: Location:[facility] Appointment Type:HL Plain Stress Test Appointment Date:11/29/2022 08:00:00 AM Scheduled Provider:FRANKY PEARSON DO [facility] Appointment Type:PC OV Diagnostic Tests Pending * [...] MA Mammogram Diagnostic Bilateral w/o Juma 02/09/23 [facility] Evaluation + Plan note Future Appointments Appointment Date:09/19/2022 07:45:00 AM Scheduled Provider: Location:[facility] Appointment Type:HL Plain Stress Test Appointment Date:11/29/2022 08:00:00 AM Scheduled Provider:FRANKY PEARSON DO Location:[facility] Appointment Type:PC OV Future Scheduled Tests [...] MA Mammogram Diagnostic Bilateral w/o Juma 02/09/23 [facility] Evaluation note* Diagnosis Pre-diabetes- Primary Other abnormal glucose S/P bariatric surgery Weight gain Other symptoms concerning nutrition, metabolism, and development BMI 31.0-31.9,adult Class 1 obesity with serious comorbidity and body mass index (BMI) of 31.0 to 31.9 in adult, unspecified obesity type Deficiency of multiple nutrient elements Other nutritional deficiency Vitamin D deficiency [facility] Diagnosis Onset Date Resolution Status Neck pain acute Segmental and somatic dysfunction of cervical region acute Segmental and somatic dysfunction of lumbar region acute Segmental and somatic dysfunction of pelvic region acute Segmental and somatic dysfunction of thoracic region acute Back pain noneactive Maxillary sinusitis acute [facility] Work Phone: Evaluation note* Diagnosis Onset Date Resolution Status Maxillary sinusitis acute [facility] Work Phone: Evaluation noteNo assessment information available [facility] Work Phone: evaluation note* Diagnosis Pre-diabetes- Primary Other abnormal glucose S/P bariatric surgery Weight gain Other symptoms concerning nutrition, metabolism, and development BMI 32.0-32.9,adult Class 1 obesity with serious comorbidity and body mass index (BMI) of 32.0 to 32.9 in adult, unspecified obesity type [facility] Narrative No data available for this section [facility] Hospital Discharge instructions No data available for this section [facility] Progress note No data available for this section [facility] Reason for referral (narrative)No reason for referral [facility] Work Phone: Summary Purpose Family History No Family History Records Found Relationship Condition Age at Onset Recorded Date/T [place] Not Specified Cardiac disease Unknown Malignant neoplasm Unknown Kidney disorder Unknown Malignant neoplasm of breast Unknown Malignant neoplasm of lung Unknown Congestive heart failure Unknown Relationship Condition Age at Onset Recorded Date/T [place] unrelated friend Cardiac disease Unknown Malignant neoplasm Unknown Kidney disorder Unknown Malignant neoplasm of breast Unknown Malignant neoplasm of lung Unknown Congestive heart failure Unknown father Myocardial infarction Unknown brother Myocardial infarction Unknown Advance Directives No Advanced Directives Records FoundDocuments on File Type Date Recorded Patient Setter Out Expl anation Advance Directives and Living Will Power of Chief Technical Officer Latest Code Status on File Code Status Date Activated Date Inactivated Comments Full Code 08/30/2018 12:11 PM 08/30/2018 4:55 PM Full Code 04/09/2018 8:24 AM 04/10/2018 2:44 PM Full Code 04/08/2018 7:00 PM 04/09/2018 8:24 AM Full Code 04/08/2018 11:06 AM 04/08/2018 6:41 PM Full Code 11/27/2017 7:08 AM 11/27/2017 4:38 PM Documents on File Type Date Recorded Patient Setter Out Expl anation ACP-Advance Directive ACP-Power of Chief Technical Officer Hospital Course Note Discharge Summary Amanda Hood pe : 1970 ADMIT DATE: 04/08/2018 DISCHARGE DATE: 04/10/18 ATTENDING PHYSICIAN: Rolan Jordan MD VISIT STATUS: Admission CODE STATUS: Full Code DISCHARGE DIAGNOSES: Principal Problem: Morbid obesity with BMI of 40.0-44.9, adult (HCC) Active Problems: Prediabetes Morbid obesity (HCC) GERD (gastroesophageal reflux disease) SANDY on CPAP Hepatic steatosis Resolved Problems: * No resolved hospital problems. * BMI Classification: Morbidly Obese (>40.0) HOSPITAL COURSE: Amanda Grubbs is a 47 y.o. female who presented to [facility] on 04/08/2018 for elective LRYGB. She [...] not included)... Note OPERATIVE NOTE DATE OF MARQUIS DURE: 04/08/2018 SURGEON: Rolan Jordan YARD PERSON: Ruben Truong MD PREOPERATIVE DIAGNOSIS: ? SANDY [...] but not limited to, medical observation under (more content not included)... Procedure Findings Note OPERATIVE NOTE DATE OF MARQUIS MIRANDA: 04/08/2018 SURGEON: Rolan Jordan YARD PERSON: Ruben Truong MD PREOPERATIVE DIAGNOSIS: ? SANDY [...] observation under th (more content not included)... Chief Complaint and Reason for Visit Chief Complaint Back pain SINUS INFECTION XRAY Reason for Visit Neck pain Segmental and somatic dysfunction of cervical region Segmental and somatic dysfunction of lumbar region Segmental and somatic dysfunction of pelvic region Segmental and somatic dysfunction of thoracic region Back pain Maxillary sinusitis Chief Complaint SINUS INFECTION XRAY Other abnormal and inconclusive findings on diagno LUNG NODULES, THORACIC LYMPHADENOPATHY Reason for Visit Maxillary sinusitis Chief Complaint XRAY Other abnormal and inconclusive findings on diagno LUNG NODULES, THORACIC LYMPHADENOPATHY Chief Complaint Admit Date CONCERN FOR PNEUMONIA August 13, 2024 8: 27am Lung Nodule August 19, 2024 9:0 2am REEVAL September 25, 2024 10: 18am CONSTIPATION BLOODY DIARRHEA November 26, 2024 9:28am Reason for Visit Admit Date Bacterial sinusitis August 13, 2024 8:27 am Lower respiratory tract infection August 13, 2024 8:27am Solitary pulmonary nodule August 19 9:02am Segmental and somatic dysfunction of cer vical region September 25, 2024 10:18am Segmental and somatic dysfunction of lum bar region September 25, 2024 10:18am Segmental and somatic dysfunction of pel ricky region September 25, 2024 10:18am Segmental and somatic dysfunction of tho racic region September 25, 2024 10:18am Bloating November 26, 2024 9:28 am Constipation November 26, 2024 9:28 am Nausea November 26, 2024 9:28 am Rectal bleeding November 26, 2024 9:28 am Rectal pain November 26, 2024 9:28 am H/O gastric bypass November 26, 2024 9:28 am Chief Complaint Admit Date REEVAL September 25, 2024 10: 18am CONSTIPATION BLOODY DIARRHEA November 26, 2024 9:28am BACK PAIN December 18, 2024 11:5 6am Reason for Visit Admit Date Segmental and somatic dysfunction of cer vical region September 25, 2024 10:18am Segmental and somatic dysfunction of lum bar region September 25, 2024 10:18am Segmental and somatic dysfunction of pel ricky region September 25, 2024 10:18am Segmental and somatic dysfunction of tho racic region September 25, 2024 10:18am Bloating November 26, 2024 9:28 am Constipation November 26, 2024 9:28 am Nausea November 26, 2024 9:28 am Rectal bleeding November 26, 2024 9:28 am Rectal pain November 26, 2024 9:28 am H/O gastric bypass November 26, 2024 9:28 am Segmental and somatic dysfunction of cer vical region December 18, 2024 11:56am Segmental and somatic dysfunction of lum bar region December 18, 2024 11:56am Segmental and somatic dysfunction of pel ricky region December 18, 2024 11:56am Segmental and somatic dysfunction of tho racic region December 18, 2024 11:56am Chief Complaint Admit Date REEVAL September 25, 2024 10: 18am CONSTIPATION BLOODY DIARRHEA November 26, 2024 9:28am BACK PAIN December 18, 2024 11:5 6am BACK PAIN January 05, 2025 9:09 am Reason for Visit Admit Date Segmental and somatic dysfunction of cer vical region September 25, 2024 10:18am Segmental and somatic dysfunction of lum bar region September 25, 2024 10:18am Segmental and somatic dysfunction of pel ricky region September 25, 2024 10:18am Segmental and somatic dysfunction of tho racic region September 25, 2024 10:18am Bloating November 26, 2024 9:28 am Constipation November 26, 2024 9:28 am Nausea November 26, 2024 9:28 am Rectal bleeding November 26, 2024 9:28 am Rectal pain November 26, 2024 9:28 am H/O gastric bypass November 26, 2024 9:28 am Segmental and somatic dysfunction of cer vical region December 18, 2024 11:56am Segmental and somatic dysfunction of lum bar region December 18, 2024 11:56am Segmental and somatic dysfunction of pel ricky region December 18, 2024 11:56am Segmental and somatic dysfunction of tho racic region December 18, 2024 11:56am Segmental and somatic dysfunction of cer vical region January 05, 2025 9:09am Segmental and somatic dysfunction of lum bar region January 05, 2025 9:09am Segmental and somatic dysfunction of pel ricky region January 05, 2025 9:09am Segmental and somatic dysfunction of tho racic region January 05, 2025 9:09am Additional Source Comments INFORMATION SOURCE (unrecogn ized section and content) DATE CREATED AUTHOR 05/18/2018 [facility] DATE CREATED AUTHOR AUTHOR'S ORGANIZ ATION 03/31/2019 [facility] DATE CREATED AUTHOR AUTHOR'S ORGANIZ ATION 01/01/2020 [facility] DATE CREATED AUTHOR AUTHOR'S ORGANIZ ATION 02/03/2020 [facility] DATE CREATED AUTHOR AUTHOR'S ORGANIZ ATION 03/16/2020 [facility] DATE CREATED AUTHOR AUTHOR'S ORGANIZ ATION 09/21/2022 [facility] DATE CREATED AUTHOR AUTHOR'S ORGANIZ ATION 01/17/2023 [facility] DATE CREATED AUTHOR AUTHOR'S ORGANIZ ATION 01/05/2025 [facility] Care Team (unrecognized sect ion and content) Personnel Name: FRANKY PEARSON DO Address: Address: [address] [place] [address] [place] Care Team Personnel Name: FRANKY PEARSON DO Position: P4 Physician - Primary Care Member Role: Primary Care Physician Address: Address: [address] [place] [address] [place] Care Team Related Persons Name: JIMMY GRUBBS Address: [address] [address] [place], [place] [id number] Address: [address] [address] [place], [place] [id number] Name: MELBA GRUBBS Address: Home [address] [place], [place] [id number] [place] Address: [address] [address] [place], [place] [id number] Name: GILLES GRUBBS Address: [address] [address] [place], [place] [id number] Care Team Personnel Name: FRANKY PEARSON DO Position: P4 Physician - Primary Care Med Service: Active Provider Member Role: Primary Care Physician Address: Address: [address] [place] [address]- Care Team Related Persons Name: JIMMY GRUBBS Address: [address] [address] [place], [place] [id number] Address: [address]porary [address] [place], [place] [id number] Name: MELBA GRUBBS Address: [address] [address] [place], [place] [id number] [place] Address: [address]porary [address] [place], [place] [id number] Name: GILLES GRUBBS Address: Home [address] [place], [place] [id number] Care Team Personnel Name: FRANKY PEARSON DO Position: P4 Physician - Primary Care Member Role: Primary Care Physician Address: Address: [address] [place] [address]- Care Team Related Persons Name: MELBA GRUBBS Address: [address] [address] [place], [place] [id number] [place] Address: [address] [address] [place], [place] [id number] Name: GILLES GRUBBS Address: [address] [address] [place], [place] [id number] Care Team Personnel Name: FRANKY PEARSON DO Position: P4 Physician - Primary Care Member Role: Primary Care Physician Address: Address: [address] [place] [address]- Care Team Related Persons Name: MELBA GRUBBS Address: [address] [address] [place], [place] [id number] [place] Address: [address]porary [address] [place], [place] [id number] Name: GILLES GRUBBS Address: [address] [address] [place], [place] [id number] Care Team Personnel Name: FRANKY PEARSON DO Position: P4 Physician - Primary Care Member Role: Primary Care Physician Address: Address: [address] [facility] [place], [place] [address] Care Team Related Persons Name: MELBA GRUBBS Address: [address] [address] [place], [place] [id number] Address: [address]porary [address] [place], [place] [id number] Name: GILLES GRUBBS Address: [address] [address] [place], [place] [id number] Reason for Visit (unrecogniz ed section and content) Reason Comments Bariatrics Post Op Follow-up DE POP 03/12 02/26 Reason Onset Date Comments Appointment 01/16/2023 Reason Comments Bariatrics Post Op Follow-up POP D/E FU Care Teams (unrecognized sec tion and content) Application Security Architect Relationship Specialty Start Date End Date Rio Aburto [address] [place] [address] PCP - General 06/25/17 Application Security Architect Relationship Specialty Start Date End Date Rio [place]to [address] [place] [address] PCP - General 06/25/17 Team Status: Active Member Role Status Dates Dr. Rio Aburto DO Family Provider Active Dr. Franky Pearson DO Primary Care Provider Active Team Status: Inactive Member Role Status Dates Dr. Yessi Mcqueen DC Attending Provider Active Team Status: Inactive Member Role Status Dates Rolan Valdes AFRICANA STUDIES PROFESSOR, AFRICANA STUDIES PROFESSOR-C Attending Provider Active Team Status: Inactive Member Role Status Dates Dr. Allan Coleman MD Attending Provider Active Team Status: Inactive Member Role Status Dates Dr. Franky Pearson DO Primary Care Prov ider, Attending Provider, Referring Provider Active Team Status: Active Member Role Status Dates Dr. Franky Pearson DO Primary Care Prov ider, Attending Provider, Referring Provider Active Team Status: Inactive Member Role Status Dates Dr. Franky Pearson DO Primary Care Provider, Attendin g Provider Active Application Security Architect Relationship Specialty Start Date End Date Rio Aburto [address] [place] [address] PCP - General 06/25/17 Team Status: Inactive Member Role Status Dates Dr. Franky Pearson DO Primary Care Provider Active Start: August 13, 2024 End: August 13, 2024 Dr. Franky Pearson DO Referring Provider Active Start: August 13, 2024 End: August 13, 2024 Jose M Carver NP-C Attending Provider Active Star t: August 13, 2024 End: August 13, 2024 Team Status: Inactive Member Role Status Dates Dr. Franky Pearson DO Primary Care Provider Active Start: August 19, 2024 End: August 19, 2024 Moon Lyman NP-C Attending Provider Active Start: August 19, 2024 End: August 19, 2024 Rolan Valdes NP AFRICANA STUDIES PROFESSOR-C Referring Provider Active S tart: August 19, 2024 End: August 19, 2024 Team Status: Inactive Member Role Status Dates Dr. Franky Pearson DO Primary Care Provider Active Start: September 25, 2024 End: September 25, 2024 Dr. Franky Pearson DO Referring Provider Active Start: September 25, 2024 End: September 25, 2024 Dr. Yessi Mcqueen DC Attending Provider Active S tart: September 25, 2024 End: September 25, 2024 Team Status: Inactive Member Role Status Dates Dr. Franky Pearson DO Primary Care Provider Active Start: November 26, 2024 End: November 26, 2024 Dr. Franky Pearson DO Referring Provider Active Start: November 26, 2024 End: November 26, 2024 Kiersten Wright NP-C Attending Provider Active Start: November 26, 2024 End: November 26, 2024 Team Status: Active Member Role/Relationship Status Dates Dr. Franky Pearson DO Primary Care Provider Active Team Status: Inactive Member Role/Relationship Status Dates Dr. Franky Pearson DO Primary Care Provider Active Start: September 25, 2024 End: September 25, 2024 Dr. Franky Pearson DO Referring Provider Active Start: September 25, 2024 End: September 25, 2024 Dr. Yessi Mcqueen DC Attending Provider Active S tart: September 25, 2024 End: September 25, 2024 Team Status: Inactive Member Role/Relationship Status Dates Dr. Franky Pearson DO Primary Care Provider Active Start: November 26, 2024 End: November 26, 2024 Dr. Franky Pearson DO Referring Provider Active Start: November 26, 2024 End: November 26, 2024 ANA Rosenthal Attending Provider Active Start: November 26, 2024 End: November 26, 2024 Team Status: Inactive Member Role/Relationship Status Dates Dr. Franky Pearson DO Primary Care Provider Active Start: December 18, 2024 End: December 18, 2024 Dr. Franky Pearson DO Referring Provider Active Start: December 18, 2024 End: December 18, 2024 Dr. Yessi Mcqueen DC Attending Provider Active S tart: December 18, 2024 End: December 18, 2024 Team Status: Inactive Member Role/Relationship Status Dates Dr. Franky Pearson DO Primary Care Provider Active Start: January 05, 2025 End: January 05, 2025 Dr. Franky Pearson DO Referring Provider Active Start: January 05, 2025 End: January 05, 2025 Dr. Yessi Mcqueen DC Attending Provider Active S tart: January 05, 2025 End: January 05, 2025 FOR RECORDS PERTAINING TO PATIENTS WHO ARE [...] BE BASED ON THE PRIMARY CLINICAL RECORDS. [facility] [employer] provides no warranty or guarantee of the accuracy or completeness of information in this document.
[2025-01-16 05:54] VITALS: BP 126/84; PULSE 76; RESP 20; TEMP 36.7; O2SAT 100; BMI 28.9
[2025-01-16] MEDS: Lactated Ringers 1,000 ML 15 ML IV (06:02)
--- NOTE | 2025-01-16 06:30 | EGD_PTH ---
PATIENT: CINDY GRUBBS LOC: EN U#:[id number] AGE/SX: 54/F ROOM: RE01/16/[address]: Dr. Rock Pineda DO : 1970 BED: DIS: 01/16/2025 SPEC #: [id number] RECD: 01/16/25 07:50 STATUS: ARLEEN REPaulina #: [id number] MEL: 01/16/25 06:[address]: Rock Pineda DEPT: SURGICAL PATHOLOGY RECD BY: Daniel Barclay ENTERED: 01/16/25 10:06 SP TYPE: EGD BIOPSY OT DR: Dr. Juancarlos Melendrez DO Tissues: A - Jejunum, NOS B - Gastric mucous membrane C - COLON BIOPSY Procedures: Immunohistochemical Stains Surgery Specimen Level IV HEADER OPERATION: Colonoscopy with biopsies, EGD with biopsies PRE-OP DIAGNOSIS: Rectal bleeding, constipation, bloating, nausea, rectal pain TISSUE SUBMITTED: A- Jejunum biopsy, B- Gastric ulcer biopsy, C- Random colon biopsy MICROSCOPIC DIAGNOSIS A. Jejunum, small bowel, biopsy: No specific pathologic change. B. Gastric ulcer, biopsy: Antral mucosa with features of reactive gastropathy. IHC for H pylori pending, to be reported in an addendum. C. Colon, random biopsy: No specific pathologic change. MICROSCOPIC DESCRIPTION Slides are reviewed. All matched controls reacted appropriately. These tests were developed and their performance characteristics determined by [facility]. They may not have been cleared or approved by the U.S. Food and Drug Administration. The FDA has determined that such clearance or approval is not necessary. The above immunohistochemical/dualISH markers are viewed by the Pathologist. GROSS DESCRIPTION A. Received in fixative is one container labeled with the patient's name and designated Jejunum biopsy. The specimen consists of two irregular fragments of light grant soft tissue that measure 0.5 and 0.6 cm. The specimen is totally submitted in one cassette. B. Received in fixative is one container labeled with the patient's name and designated Gastric ulcer biopsy. The specimen consists of one irregular fragment of light grant soft tissue that measures 0.4 cm. The specimen is totally submitted in one cassette. C. Received in fixative is one container labeled with the patient's name and designated Random colon biopsy. The specimen consists of four irregular fragments of light grant soft tissue that measure 0.3 to 0.5 cm. The specimen is totally submitted in one cassette. MT 01/16/2025 [facility]:[id number] ADDENDUM ADDENDUM ADDENDUM ADDENDUM 01/21/2025 13:01 ADDENDUM 01/21/2025 13:01 ADDENDUM 01/21/2025 13:01 ADDENDUM 01/21/2025 13:01 ADDENDUM 01/21/2025 13:01 This addendum is to report the IHC stain for H pylori on part B: B. IHC negative for H pylori organisms.
--- NOTE | 2025-01-16 06:32 | PRE.ANES_ITS ---
ASA Classification* ASA Classification ASA Classification: 2 Assessment & Plan Anesthesia* Anesthesia Assessment Anesthesia Assessment: Discussed sedation and/or anesthesia options, risks, benefits, and alternatives with patient/parents/legal guardian/POA. Questions invited. The patient/parents/legal guardian/POA seems to understand and agrees to proceed with anesthesia plan. Reviewed the physical assessment, medical history, allergy history and patient home medications list prior to surgery/procedure/anesthetic and documented any changes. Performed airway and anesthesia risk assessments. Anesthesia Type Anesthesia Type: MAC History Source History Obtained from:: Patient and Chart Anesthesia Focused Assessment* Temperature: 98.0 F Pulse Rate: 76 Blood Pressure: 126/84 Respiratory Rate: 20 Pulse Ox: 100 Oxygen Delivery Method: Room Air Airway Assessment Mouth opens: >3 cm Mallampati Score: III Teeth Condition: Chipped/Broken (Tooth #2 is broken. Rest are tight.) and Partial (Upper partials out.) Neck Range of motion (ROM): Full ROM Labs Anesthesia Preop lab: CBC WBC 6.6 K/mm3 (4.4-11.0) 07/01/24 14:50 07/01/24 RBC 3.88 M/mm3 (4.2-5.4) L 07/01/24 14:50 07/01/24 Hgb 11.7 g/dL (12.0-15.0) L 07/01/24 14:50 5 Hct 36.8 % (37-47) L 07/01/24 14:50 07/01/24 Plt Count 288 K/mm3 (150-450) 07/01/24 14:50 07/01/24 CHEMISTRY Potassium 4.3 mmol/L (3.5-5.1) 07/01/24 14:50 07/01/24 Sodium 141 mmol/L (136-145) 07/01/24 14:50 07/01/24 Magnesium 2.2 mg/dL (1.6-2.6) 05/06/24 11:53 05/06/24 Phosphorus 4.5 mg/dL (2.5-4.9) 05/06/24 11:53 05/06/24 BUN 9 mg/dL (7-18) 07/01/24 14:50 07/01/24 Creatinine 0.93 mg/dL (0.55-1.02) 07/01/24 14:50 07/01/24 Glucose 148 mg/dL (74-106) H 07/01/24 14:50 07/01/24 TSH 0.846 uIU/mL (0.358-3.740) 07/01/24 14:50 06/12 07/05 COAG Pre-Assessment Diagnosis/Proposed Procedure Planned Operative Procedure(s): COLONOSCOPY, EGD Anesthesia History 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 When Was Last Pacemaker Check QUESTION #4 FULL TEXT: You/Your Family Experience fever (hyperthermia) with Anesthesia Last Oral Intake Last Oral intake: Last Oral Intake NPO since 12:30 01/16/25 05:54 Meds taken in AM with sips of No 01/16/25 05:54 water? Meds patient instructed to take am of surgery PONV PONV - acquisitions logistics analyst: PONV - acquisitions logistics analyst Female No 01/13/25 13:38 HX of Motion Sickness Yes 01/13/25 13:38 HX of N/V After Surgery Yes 01/13/25 13:38 Non-Smoker Yes 01/13/25 13:38 Duration of Surgery greater No 01/13/25 13:38 than 60 minutes Number of Risk Factors 3 01/13/25 13:38 PONV Score Moderate Risk 01/13/25 13:38 Height & Weight Height & Weight: Anesthesia: Height & Weight Height 5 ft 3 in 01/16/25 05:54 Weight: 74 kg 01/16/25 05:54 Body Mass Index (BMI) 28.9 01/16/25 05:54 Respiratory Assessment Respiratory Assessment - acquisitions logistics analyst: Respiratory Tract Infection Hx - acquisitions logistics analyst Hx Respiratory Tract Infection No 01/13/25 13:38 STOP Sleep Apnea STOP Sleep Apnea - acquisitions logistics analyst: STOP Sleep Apnea - acquisitions logistics analyst Hx Hypertension No 01/13/25 13:38 Hx Sleep Apnea No 01/13/25 13:38 CPAP BIPAP Do you snore loudly (louder No 01/13/25 13:38 than talking or can be heard Do you often feel tired/ No 01/13/25 13:38 fatigued/ sleepy during daytime? Has anyone observed you stop No 01/13/25 13:38 breathing during sleep? STOP Results Negative 01/13/25 13:38 QUESTION #5 FULL TEXT : Do you snore loudly (louder than talking or can be heard through closed doors)? Tobacco Use History Tobacco Use History - acquisitions logistics analyst: Tobacco Use History - acquisitions logistics analyst Tobacco Use Smoking Status Never smoker 01/13/25 13:38 Hx Tobacco Use No 01/13/25 13:38 Years Smoking Packs Smoked per Day Smoking Cessation Date was within the last 15 years Hx Smoking Cessation Date Hx Smoking Cessation Counseling Hematologic Medial History Hematologic Hx - acquisitions logistics analyst: Hematologic Medical Hx - transfusion aide Hx of Blood Transfusion No 01/13/25 13:38 Hx of Transfusion in last 3 No 01/13/25 13:38 Months Date of Last Transfusion (if within last 3 months) Ever experience any problems No 01/13/25 13:38 with transfusion(s)? Specify any problems Hx of Preganancy in last 3 No 01/13/25 13:38 Months Nurse Filling Out Transfusion [email or web address] 01/13/25 13:38 & Questions: Date: 01/13/25 01/13/25 13:38 Time: 13:41 01/13/25 13:38 Patient unable to answer at this time (ie. confused, unrespo /Reproduction History /Reproductive History - acquisitions logistics analyst: /Reproductive Hx- acquisitions logistics analyst Hx Now Gestational Age (in weeks): EDC: Hx Hx Para Hx Section SAB Active Medications Active Medications: Current Medications Generic Name Dose Route Start Last Admin Trade Name Freq PRN Reason Stop Dose Admin Lactated Ringer's 1,000 mls @ 15 mls/hr 01/16/25 06:00 01/16/25 06:02 IV 15 mls/hr .Q48H KATHERYN Administration PFSH Medical History Kidney stones Wears glasses Wears partial dentures Depression Thyroid disease Back pain Migraine headache Non-smoker History of IBS Gastric reflux History of stress test History of echocardiogram Cardiology follow-up encounter Lower respiratory tract infection Bacterial sinusitis Anginal pain Somatic dysfunction of lower extremity Psoriatic arthritis Prediabetes Family history of ischemic heart disease Anxiety Secondary insomnia Iron deficiency B12 deficiency Major depression in remission Hypothyroid Anemia Acute pharyngitis, unspecified Aphthous ulcer of mouth delivery delivered Home Medications ?Medication ?Instructions ?Recorded ?Last Taken ?Type Diltiazem 2% / Lidocaine 5% #30 grams 11/26/24 Unknown Rx ointment (compound) acetaminophen 325 mg tablet 325 mg PO ONCE PRN pain 01/15/25 History (Tylenol) bupropion HCl 75 mg tablet 75 mg PO TID 11/26/2401/15 History docusate sodium 100 mg capsule 100 mg PO BID #60 caps 11/26/24 Unknown Rx fexofenadine 60 mg tablet (Becca 60 mg PO BID PRN al lergy symptoms 11/26/24 01/15/25 History Allergy) linaclotide 290 mcg capsule 290 mcg PO QAM #90 caps 01/14/25 Rx (Linzess) lorazepam 0.5 mg tablet (Ativan) 0.25 mg PO DAILY PRN anxiety 11/26/24 01/15/25 History multivitamin 1 tab PO QDAY 11/26/2401/14 History omeprazole 40 mg capsule,delayed 40 mg PO QDAY #90 cap s 11/26/24 01/15/25 Rx release peg 3350-sod sulf,[id number] See Rx Instructions PO .COMPLEX #2 11/26/24 01/15/25 Rx 178.7-7.3-0.5-1.12-0.9 gram oral mL soln (Suflave) tirzepatide 2.5 mg/0.5 mL 2.5 mg subcut QWEEK 11/26/24 01/04/25 History subcutaneous pen injector (Mounjaro) Allergy/AdvReac Type Severity Reaction Status Date / Time No Known Allergies Allergy Verified 01/16/25 05:53 Family History Unknown Heart disease Cancer Kidney disease Breast cancer Lung cancer CHF (congestive heart failure) Father Myocardial infarction Brother Myocardial infarction Surgical History History of endometrial ablation History of colonoscopy H/O: hysterectomy Hx of cholecystectomy H/O tubal ligation History of weight loss surgery Social History Smoking Status: Never smoker second hand exposure: Yes alcohol intake: current substance use type: does not use caffeine: Yes Review of Systems (Anesthesia) ROS Narrative System reviewed and no additional complaints, except as documented.
[2025-01-16 06:36] VITALS: BP 126/84; PULSE 76; RESP 20; TEMP 36.7; O2SAT 100
--- NOTE | 2025-01-16 06:38 | HP.PCM_ITS ---
[facility] - General General Date of Admission: 01/16/25 Date of Service: 01/16/25 Chief Complaint: abdominal pain, bloating, N/V, bleeding HPI Narrative CINDY GRUBBS, is a 54 F who presents with the Chief Complaint: abdominal pain, bloating, N/V, bleeding Gastric bypass 2018 hysterectomy 2014 total CCX 2002 - occasional alcohol - never smoker - c/o bloody stools, nausea, diarrhea, constipation, abdominal pain, bloating and HB - just switched from Ozempic to Mounjaro - she has constipation and then when she tries to have a BM, like razor blades BRBPR - this past Sunday, she had bad stomach cramping, urgency, toilet full of blood - just one episode - rectal bleeding increased over the past year - she has been having off and on constipation, bloating, abdominal pain more frequent x3 months - can go 5-7 days without a BM - difficulty evacuating - c/o upper esophageal burning with swallowing - loss of appetite - switched from Ozempic to Mounjaro six months ago - she had been on Ozempic for about 1-1.5 years - denies any new medications - weight is maintaining COLON - Dr. Goodman - no polyps EGD just prior to gastric bypass - Dulcolax laxatives- usually needs 2-3 doses befor having results - water intake is poor B: pink drink and coconut milk and a snack pack or skip L: skips D: crackers, occasional meal such as soup - occasionally will eat nuts - has not had much of an appetite - does not like protein shakes very little protein and fiber intake [facility] Medical History Kidney stones Wears glasses Wears partial dentures Depression Thyroid disease Back pain Migraine headache Non-smoker History of IBS Gastric reflux History of stress test History of echocardiogram Cardiology follow-up encounter Lower respiratory tract infection Bacterial sinusitis Anginal pain Somatic dysfunction of lower extremity Psoriatic arthritis Prediabetes Family history of ischemic heart disease Anxiety Secondary insomnia Iron deficiency B12 deficiency Major depression in remission Hypothyroid Anemia Acute pharyngitis, unspecified Aphthous ulcer of mouth delivery delivered Home Medications ?Medication ?Instructions ?Recorded ?Last Taken ?Type Diltiazem 2% / Lidocaine 5% #30 grams 11/26/24 Unknown Rx ointment (compound) acetaminophen 325 mg tablet 325 mg PO ONCE PRN pain 01/15/25 History (Tylenol) bupropion HCl 75 mg tablet 75 mg PO TID 11/26/2401/15 History docusate sodium 100 mg capsule 100 mg PO BID #60 caps 11/26/24 Unknown Rx fexofenadine 60 mg tablet (Becca 60 mg PO BID PRN al lergy symptoms 11/26/24 01/15/25 History Allergy) linaclotide 290 mcg capsule 290 mcg PO QAM #90 caps 01/14/25 Rx (Linzess) lorazepam 0.5 mg tablet (Ativan) 0.25 mg PO DAILY PRN anxiety 11/26/24 01/15/25 History multivitamin 1 tab PO QDAY 11/26/2401/14 History omeprazole 40 mg capsule,delayed 40 mg PO QDAY #90 cap s 11/26/24 01/15/25 Rx release peg 3350-sod sulf,[id number] See Rx Instructions PO .COMPLEX #2 11/26/24 01/15/25 Rx 178.7-7.3-0.5-1.12-0.9 gram oral mL soln (Suflave) tirzepatide 2.5 mg/0.5 mL 2.5 mg subcut QWEEK 11/26/24 01/04/25 History subcutaneous pen injector (Mounjaro) Allergy/AdvReac Type Severity Reaction Status Date / Time No Known Allergies Allergy Verified 01/16/25 05:53 Family History Unknown Heart disease Cancer Kidney disease Breast cancer Lung cancer CHF (congestive heart failure) Father Myocardial infarction Brother Myocardial infarction Surgical History History of endometrial ablation History of colonoscopy H/O: hysterectomy Hx of cholecystectomy H/O tubal ligation History of weight loss surgery Social History Smoking Status: Never smoker second hand exposure: Yes alcohol intake: current substance use type: does not use caffeine: Yes ROS Constitutional Constitutional: Denies fatigue, fever(s), poor appetite, weight gain or weight loss Gastrointestinal Gastrointestinal: Denies belching, bloating, change in bowel habits, change in stool character, chewing difficulty, coffee ground emesis, constipation, cramping, diarrhea, dyspepsia, dysphagia, early satiety, excessive flatus, fecal incontinence, heartburn, hematemesis, hematochezia, hemorrhoids, loose stools, melena, nausea, odynophagia, rectal bleeding, tenesmus, vomiting or weight changes Vital Signs Vital Signs Vital Signs: 01/16/25 05:54 01/16/25 05:54 01/16/25 06:36 Temperature 98.0 F 98.0 F Temperature Source Temporal Pulse Rate 76 76 Respiratory Rate 20 H 20 H Respiratory Pattern Normal Blood Pressure 126/84 H 126/84 H Blood Pressure Mean 98 Blood Pressure Source Monitor Blood Pressure Position Semi-Fowlers Blood Pressure Location Left Arm Pulse Ox 100 100 Oxygen Delivery Method Room Air Room Air Weight Weight: 163 lb 2.273 oz Body Mass Index (BMI) 28.9 Physical Exam Const alert, oriented x3, no apparent distress and healthy appearing General Appearance: cooperative GI normal to inspection, nondistended, normoactive bowel sounds, soft to palpation, non-tender and non-distended Percussion: normal to percussion Rectal Exam: deferred Assessment & Plan Assessment/Plan (1) Rectal bleeding: (2) Constipation: (3) Bloating: (4) Nausea: (5) Rectal pain: PLAN: Assessment and Plan Assessment and Plan (1) H/O gastric bypass: Status: Chronic (2) Rectal pain: Status: Acute (3) Nausea: Status: Acute (4) Bloating: Status: Acute (5) Constipation: Status: Acute (6) Rectal bleeding: Status: Acute Medications: New omeprazole take once daily 30 minutes before breakfast 40 mg PO QDAY 90 caps 1RF Diltiazem 2% / Lidocaine 5% ointment (compound) insert a pea sized amount into rectum TID PRN rectal pain 30 grams 0RF peg 3350-sod sulf,[id number] 178.7-7.3-0.5 gram (Suflave) as directed for split dose bowel prep 2 mL 0RF docusate sodium 100 mg PO BID 60 caps 2RF linaclotide (Linzess) take once daily 30 minutes before breakfast 290 mcg PO QAM 90 caps 1RF Discontinued omeprazole Discontinued Reason: Order Changed 20 mg PO DAILY Plan A 54-year-old female presents for initial consultation with chronic constipation, rectal pain, and intermittent rectal bleeding associated with hard stools. She also reports upper esophageal burning without dysphagia and a loss of appetite. Her history is significant for gastric bypass in 2018 and GLP-1 agonist use for weight loss over the past 2 years. Diet and fluid intake are notably poor. She reports having bowel movements only every 5?7 days, with hard stools, straining, and a sensation of incomplete evacuation. This past weekend, she experienced a sudden onset of intense abdominal cramping followed by a single episode of urgent, bloody diarrhea. She denies any ongoing cramping and has no history of HRT, hypercoagulability, or CAD. Suspect rectal pain is likely due to an anal fissure; started diltiazem/lidocaine cream. Constipation is likely multifactorial: poor diet/fluid intake, GLP-1 use; started docusate and Linzess 290 mcg daily, recommended use of Squatty Potty, and discussed possible future anorectal manometry. Advised follow-up with PCP to consider reducing GLP- 1 dosing. Reviewed risks of poor nutrition post-bariatric surgery, including vitamin deficiencies, sarcopenia, alopecia, and visual changes. One-time episode of bloody diarrhea with cramping is concerning for possible ischemic colitis; scheduled colonoscopy and EGD. Advised that recurrence warrants expedited colonoscopy. Increased PPI to 40 mg daily. Patient Instructions: Increase Omeprazole to 40mg once daily Squatty Potty Colon & EGD, if you have another episodes of intense abdominal cramping and bloody diarrhea contact office to move up colonoscopy (1/2d Miralax and 1d SuFlave) Diltiazem / Lidocaine cream Consider Anorectal Manometry in the future Docusate stool softener twice a day Linzess 290mcg once daily Follow-up with PCP to discuss decreasing Mounjaro dosing due to exceptionally poor nutritional intake Follow-up in office post procedure, sooner for worsening of symptoms
[2025-01-16 07:15] VITALS: BP 101/64; BP 126/84; PULSE 69; RESP 16; TEMP 36.3; O2SAT 100
--- NOTE | 2025-01-16 07:18 | OP.EGD_ITS ---
Patient Name: Amanda Stone Procedure Date: 01/16/2025 6:23 AM Date of : 1970 Age: 54 Procedure: Upper GI endoscopy Indications: Epigastric abdominal pain, Functional Dyspepsia Providers: Rock Pineda DO Referring MD: Juancarlos Melendrez Do Medicines: Monitored Anesthesia Care Patient Profile: This is a 54 year old female. Refer to note in patient chart for documentation of history and physical. Patient has symptoms of acute epigastric abdominal pain, chronic dyspepsia and chronic nausea. Complications: No immediate complications. Procedure: Pre-Anesthesia Assessment: - Prior to the procedure, a History and Physical was performed, and patient medications and allergies were reviewed. The patient is competent. The risks and benefits of the procedure and the sedation options and risks were discussed with the patient. All questions were answered and informed consent was obtained. Patient identification and proposed procedure were verified by the physician in the pre-procedure area. Mental Status Examination: alert and oriented. Airway Examination: normal oropharyngeal airway and neck mobility. Respiratory Examination: clear to auscultation. CV Examination: normal. Prophylactic Antibiotics: The patient does not require prophylactic antibiotics. Prior Anticoagulants: The patient has taken no anticoagulant or antiplatelet agents. ASA Grade Assessment: II - A patient with mild systemic disease. After reviewing the risks and benefits, the patient was deemed in satisfactory condition to undergo the procedure. The anesthesia plan was to use monitored anesthesia care (MAC). Immediately prior to administration of medications, the patient was re-assessed for adequacy to receive sedatives. The heart rate, respiratory rate, oxygen saturations, blood pressure, adequacy of pulmonary ventilation, and response to care were monitored throughout the procedure. The physical status of the patient was re-assessed after the procedure. After obtaining informed consent, the endoscope was passed under direct vision. Throughout the procedure, the patient's blood pressure, pulse, and oxygen saturations were monitored continuously. The was introduced through the mouth, and advanced to the anastomosis site of gastric bypass. The upper GI endoscopy was accomplished without difficulty. The patient tolerated the procedure well. Scope In: 6:49:45 AM Scope Out: 6:54:34 AM Total Procedure Duration Time 0 hours 4 minutes 49 seconds Findings: The examined esophagus was normal. A small hiatal hernia was present. One non-bleeding linear gastric ulcer with no stigmata of bleeding was found in the gastric fundus. The lesion was 4 mm in largest dimension. Biopsies were taken with a cold forceps for histology. Verification of patient identification for the specimen was done. Estimated blood loss was minimal. Biopsies were taken with a cold forceps for Helicobacter pylori testing. Verification of patient identification for the specimen was done. Estimated blood loss was minimal. The examined jejunum was normal. Biopsies were taken with a cold forceps for histology. Verification of patient identification for the specimen was done. Estimated blood loss was minimal. Impression: - Normal esophagus. - Small hiatal hernia. - Non-bleeding gastric ulcer with no stigmata of bleeding. Biopsied. - Normal examined jejunum. Biopsied. Recommendation: - Discharge patient to home. - Resume previous diet. - Continue present medications. - Await pathology results. Procedure Code(s): --- Professional --- 00006, Esophagogastroduodenoscopy, flexible, transoral; with biopsy, single or multiple CPT copyright 2021 [employer]. All rights reserved. The codes documented in this report are preliminary and upon radio despatcher review may be revised to meet current compliance requirements. Rock Pineda DO 01/16/2025 7:17:27 AM This report has been signed electronically. Number of Addenda: 0 Note Initiated On: 01/16/2025 6:23 AM
--- NOTE | 2025-01-16 07:18 | OP.PROVAT_ITS ---
01/16/2025 Juancarlos Melendrez Do Re : Upper GI endoscopy procedure for Amanda Stone Dear Parvin This procedure was performed on Thursday, January 16, 2025. My impressions and recommendations are as follows: Impressions : - Normal esophagus. - Small hiatal hernia. - Non-bleeding gastric ulcer with no stigmata of bleeding. Biopsied. - Normal examined jejunum. Biopsied. Recommendations : - Discharge patient to home. - Resume previous diet. - Continue present medications. - Await pathology results. My findings are described in the full procedure note, which is enclosed. If I can be of further assistance, please feel free to contact me at . Sincerely, Rock Pineda DO 01/16/2025 7:17:27 AM This report has been signed electronically.
--- NOTE | 2025-01-16 07:19 | PCM.POST.ANE ---
Anesthesia: Postop Eval I Current Vital Signs Temperature: 97.3 F Pulse Rate: 76 Blood Pressure: 101/64 Respiratory Rate: 16 Pulse Ox: 100 Oxygen Delivery Method: Room Air Assessment Airway patent: Yes Spontaneous unlabored respirations: Yes Mental status: Awake and Calm nausea: No Vomiting: No Anesthesia Complication: No Fluid Hydration Crystalloid volume administer (ml): 500 Total IV fluid infused: 500 Progress Note Anesthesia document: Postop Eval 1 completed: Yes
[2025-01-16 07:20] VITALS: BP 101/64; BP 109/64; BP 126/84; PULSE 69; PULSE 76; RESP 16; TEMP 36.3; O2SAT 100
--- NOTE | 2025-01-16 07:20 | OP.PROVAT_ITS ---
01/16/2025 Juancarlos Melendrez Do Re : Colonoscopy procedure for Amanda Stone Dear Parvin This procedure was performed on Thursday, January 16, 2025. My impressions and recommendations are as follows: Impressions : - Preparation of the colon was poor. - Congested mucosa in the recto-sigmoid colon and in the sigmoid colon. Biopsied. - Stool in the entire examined colon. Recommendations : - Discharge patient to home. - Resume previous diet. - Continue present medications. - Await pathology results. - Repeat colonoscopy because the bowel preparation was poor. My findings are described in the full procedure note, which is enclosed. If I can be of further assistance, please feel free to contact me at . Sincerely, Rock Pineda, 01/16/2025 7:19:59 AM This report has been signed electronically.
--- NOTE | 2025-01-16 07:20 | OP.COLON_ITS ---
Patient Name: Amanda Stone Procedure Date: 01/16/2025 6:54 AM Date of : 1970 Age: 54 Procedure: Colonoscopy Indications: Generalized abdominal pain, Clinically significant diarrhea of unexplained origin Providers: Rock Pineda DO Referring MD: Juancarlos Melendrez Do Medicines: Monitored Anesthesia Care Patient Profile: This is a 54 year old female. Refer to note in patient chart for documentation of history and physical. Patient has symptoms of acute epigastric abdominal pain, chronic dyspepsia and chronic nausea. Last Colonoscopy: several years ago. Complications: No immediate complications. Procedure: Pre-Anesthesia Assessment: - Prior to the procedure, a History and Physical was performed, and patient medications and allergies were reviewed. The patient is competent. The risks and benefits of the procedure and the sedation options and risks were discussed with the patient. All questions were answered and informed consent was obtained. Patient identification and proposed procedure were verified by the physician in the pre-procedure area. Mental Status Examination: alert and oriented. Airway Examination: normal oropharyngeal airway and neck mobility. Respiratory Examination: clear to auscultation. CV Examination: normal. Prophylactic Antibiotics: The patient does not require prophylactic antibiotics. Prior Anticoagulants: The patient has taken no anticoagulant or antiplatelet agents. ASA Grade Assessment: II - A patient with mild systemic disease. After reviewing the risks and benefits, the patient was deemed in satisfactory condition to undergo the procedure. The anesthesia plan was to use monitored anesthesia care (MAC). Immediately prior to administration of medications, the patient was re-assessed for adequacy to receive sedatives. The heart rate, respiratory rate, oxygen saturations, blood pressure, adequacy of pulmonary ventilation, and response to care were monitored throughout the procedure. The physical status of the patient was re-assessed after the procedure. After I obtained informed consent, the scope was passed under direct vision. Throughout the procedure, the patient's blood pressure, pulse, and oxygen saturations were monitored continuously. The was introduced through the anus and advanced to the cecum, identified by appendiceal orifice and ileocecal valve. The colonoscopy was performed without difficulty. The patient tolerated the procedure well. The quality of the bowel preparation was poor. The ileocecal valve, appendiceal orifice, and rectum were photographed. Scope In: 6:56:06 AM Scope Withdrawal Time 0 hours 7 minutes 37 seconds Scope Out: 7:08:24 AM Total Procedure Duration Time 0 hours 12 minutes 18 seconds Findings: The perianal and digital rectal examinations were normal. An area of mildly congested mucosa was found in the recto-sigmoid colon and in the sigmoid colon. Biopsies were taken with a cold forceps for histology. Verification of patient identification for the specimen was done. Estimated blood loss was minimal. Stool was found in the entire colon, precluding visualization. Lavage of the area was performed using copious amounts of sterile water, resulting in incomplete clearance with continued poor visualization. There was a medium-sized lipoma, in the ascending colon. Impression: - Preparation of the colon was poor. - Congested mucosa in the recto-sigmoid colon and in the sigmoid colon. Biopsied. - Stool in the entire examined colon. Recommendation: - Discharge patient to home. - Resume previous diet. - Continue present medications. - Await pathology results. - Repeat colonoscopy because the bowel preparation was poor. Procedure Code(s): --- Professional --- 03374, Colonoscopy, flexible; with biopsy, single or multiple CPT copyright 2021 [employer]. All rights reserved. The codes documented in this report are preliminary and upon cd reactor operator head review may be revised to meet current compliance requirements. Rock Pineda DO 01/16/2025 7:19:59 AM This report has been signed electronically. Number of Addenda: 0 Note Initiated On: 01/16/2025 6:54 AM
[2025-01-16 07:25] VITALS: BP 126/84; BP 97/65; PULSE 72; RESP 16; TEMP 36.7; O2SAT 100
[2025-01-16 07:44] VITALS: BP 126/84
== END 2025-01-16 07:53 | disposition home or self-care (01) ==
LOC: EN 05:17 → AC 05:18
PROVIDERS: PCP Student in an Organized Health Care Education/Training Program; Referring Provider Student in an Organized Health Care Education/Training Program; Visit Provider Internal Medicine Gastroenterology
PROC: 0DJD8ZZ Inspection of Lower Intestinal Tract, Via Natural or Artificial Opening Endoscopic (ICD-10-PCS; CPT 45378; principal; 2025-01-16 06:25)
DX: K25.9 Gastric ulcer, unspecified as acute or chronic, without hemorrhage or perforation (principal); K21.9 Gastro-esophageal reflux disease without esophagitis; Z79.85 Long-term (current) use of injectable non-insulin antidiabetic drugs; R19.7 Diarrhea, unspecified; Z90.710 Acquired absence of both cervix and uterus; K59.00 Constipation, unspecified; Z79.899 Other long term (current) drug therapy; R14.0 Abdominal distension (gaseous); R10.84 Generalized abdominal pain; K44.9 Diaphragmatic hernia without obstruction or gangrene; R63.0 Anorexia; Z90.49 Acquired absence of other specified parts of digestive tract; Z98.51 Tubal ligation status; Z98.84 Bariatric surgery status
CPT/HCPCS: 43239; 45380; 88305; 88342; J2405

== ENCOUNTER → 2025-02-02 | Outpatient (CLI) | payer OTHER, SELFPAY | END | disposition home or self-care (01) | LOC: LABSPEC 14:04 | PROVIDERS: PCP Student in an Organized Health Care Education/Training Program; Visit Provider Physician Assistant | DX: N39.0 Urinary tract infection, site not specified (principal) | CPT/HCPCS: 87086; 87088; 87186 ==

== ENCOUNTER → 2025-02-19 | Outpatient (CLI) | payer OTHER, SELFPAY ==
[2025-02-19 10:20] LABS: Hematocrit 37.5 % (37-47); Hemoglobin 12.3 g/dL (12.0-15.0); Mean Corp Hgb Conc 32.8 g/dL (32-36); Mean Corpuscular Volume 92.6 fL (81-99); Mean Platelet Vol. 9.7 fl (6.2-12.0); Platelet Count 316 K/mm3 (150-450); RBC Distribution Width CV 12.7 % (11.6-14.6); RBC Distribution Width SD 43.1 fl (35.1-43.9); Red Blood Count 4.05 M/mm3 (4.2-5.4); White Blood Count 5.3 K/mm3 (4.4-11.0)
[2025-02-19 10:48] LABS: FOLATES,SERUM (FOLIC ACID) 6.36 ng/mL (4.60-34.80)
[2025-02-19 12:10] LABS: AST(SGOT) 21 U/L (<=31); Alanine Aminotransfer ALT/SGPT 20 U/L (<=34); Albumin, Serum 4.5 g/dL (3.5-5.0); Alkaline Phosphatase 128 U/L (35-104); Anion Gap 11 (5-15); BUN 9 mg/dL (4-19); BUN/Creat Ratio 9.8 RATIO (10-20); Calcium,Total 9.6 mg/dL (7.6-11.0); Carbon Dioxide 25.9 mmol/L (21.0-32.0); Chloride 106 mmol/L (98-108); Cholesterol 163 mg/dL (<=200); Ferritin 17 ng/mL (22-378); Globulin 3.2 g/dL (2.2-4.2); Glucose 90 mg/dL (70-99); Low Density Lipoprotein Calc. 82 mg/dL; Potassium 4.9 mmol/L (3.3-5.1); Triglycerides 68 mg/dL; Very Low Density Lipoprotein 14 mg/dL (5-40); Vitamin B12 248 pg/mL (180-914); Vitamin D,25 Hydroxy 33.2 ng/mL (30-100); cholesterol:hdl ratio screen 2.42
[2025-02-25 06:08] LABS: Vitamin B1, Thiamine 113.9 nmol/L (66.5-200.0); Zinc, Plasma or Serum 62 ug/dL (44-115)
== END | disposition home or self-care (01) ==
LOC: MTLAB 08:20
PROVIDERS: PCP Student in an Organized Health Care Education/Training Program; Referring Provider Student in an Organized Health Care Education/Training Program; Visit Provider Student in an Organized Health Care Education/Training Program
DX: Z13.6 Encounter for screening for cardiovascular disorders (principal); Z98.84 Bariatric surgery status; E03.9 Hypothyroidism, unspecified
CPT/HCPCS: 36415; 80053; 80061; 82306; 82607; 82728; 82746; 83036; 84425; 84439; 84443; 84630; 85027

== ENCOUNTER → 2025-03-05 | Outpatient (CLI) | payer OTHER, SELFPAY ==
--- OUTSIDE RECORDS SUMMARY | 2025-03-05 20:09 | XMS RPT_ITS | CCD ---
Author Organization [facility] ion [facility] CONSULTING DATABASE ADMINISTRATOR [facility] Care Team Providers Care Electronic Technician Name Role Phone Franky Pearson Primary Care Provider UnavailADAM Alston Admitting Unavailable BEDDELLADAM Attending Unavailable AA REQUESTED, NEW Primary Care Unavailable LANIE LUNA Consulting Unavailable NANDINI VILLEGAS Consulting Unavailable ADAM LIAO Admitting Unavailable ADAM LIAO Attending Unavailable AA REQUESTED, NEW Primary Care Unavailable KATHERINE CANTOR, PARTS PERSON Admitting Unavaila ble KATHERINE CANTOR, PARTS PERSON Attending Unavaila ble AA REQUESTED, NEW Primary Care Unavailable Franky Pearson Primary Care Provider UnavailFRANKY Villela DO Primary Care Physician Rio Aburto DO Primary Care Provider [phone] FRANKY PEARSON DO Attending Unavailable LILI MIKE, FRANKY Primary Care Unavailable HALMIRANDA MIKE, FRANKY Attending Unavailable LILI MIKE, FRANKY Primary Care Unavailable LILI MIKE, FRANKY Attending Unavailable LILI MIKE, FRANKY Primary Care Unavailable HALMIRANDA DO, FRANKY Attending Unavailable LILI DO, FRANKY Primary Care Unavailable HALKO DO, FRANKY Attending Unavailable HALKO DO, FRANKY Primary Care Unavailable HALKO DO, FRANKY Attending Unavailable HALKO , FRANKY Primary Care Unavailable ROBSON PUGH Attending Unavailable LILI DO, FRANKY Primary Care Unavailable HALMIRANDA DO, FRANKY Attending Unavailable LILI DO, FRANKY Primary Care Unavailable HALKO DO, FRANKY Attending Unavailable DAYDAYKO DO, FRANKY Primary Care Unavailable HALKO DO, FRANKY Attending Unavailable LILI MIKE, FRANKY Primary Care Unavailable LINDA MARTINEZ MD Attending Unavailable LILI MIKE, FRANKY Primary Care Unavailable SHAYNA ANDRADE Attending Unavailable RIO ABURTO Primary Care Unavailable SHAYNA ANDRADE Attending Unavailable SHAYNA ANDRADE Attending Unavailable SHAYNA ANDRADE Attending Unavailable CRISELDA, RIO Primary Care Unavailable Criselda DO, Rio Jett Primary Care Provider Dr. Yessi Mcqueen Attending Provider Keisha PARTS PERSON, PARTS PERSON-C Rolan Polk Attending Provider Dr. Allan Coleman Attending Provider Dr. Allan Coleman Attending Provider Lili MIKE, Dr. Bauer Primary Care Provider Lili MIKE, Dr. Bauer Referring Provider Wen PARTS PERSON-CJose M Attending Provider Nura PARTS PERSON-CMoon Attending Provider Keisha PARTS PERSON-CRolan Referring Provider Charisse JANE, Dr. Dickson Attending Provider Kyle PARTS PERSON-CKiersten Attending Provider Lili MIKE, Dr. Bauer Primary Care Provider Lili MIKE, Dr. Bauer Referring Provider Miriam MIKE, Dr. Wilkerson Attending Provider Miriam MIKE, Dr. Wilkerson Other Provider Lili MIKE, Dr. Bauer Primary Care Provider Lili MIKE, Dr. Bauer Referring Provider Dosrenuka JANE, Dr. Dickson Attending Provider Angus Reyes Attending Provider Jake PARTS PERSON-CJolie Attending Provider Virginia ORTIZ, Dr. Lemus Attending Provider Daydayko, Franky Referring Unavailable Halko, Franky Primary Care Unavailable Rock Pineda Attending Unavailable Halko, Franky Referring Unavailable Halko, Franky Primary Care Unavailable Halko, Franky Attending Unavailable Halko, Franky Primary Care Unavailable Lenka, Santiago Attending Unavailable Santiago Og Referring Unavailable Halko, Franky Referring Unavailable Halko, Franky Primary Care Unavailable Halko, Franky Attending Unavailable Halko, Franky Primary Care Unavailable Hollingsworth, Franky Attending Unavailable Hollingsworth, Franky Referring Unavailable Halko, Franky Referring Unavailable Halko, Franky Primary Care Unavailable Rock Pineda Consulting Unavailable Rock Pineda Attending Unavailable Halko, Franky Primary Care Unavailable Criselda Muñoz Attending Unavailable Jolie Joseph Attending Unavailable Halko, Frakny Referring Unavailable Halko, Franky Primary Care Unavailable Halko, Franky Referring Unavailable Angus Villalobos Attending Unavailable Halko, Franky Primary Care Unavailable Halko, Franky Referring Unavailable Angus Villalobos Attending Unavailable Halko, Franky Primary Care Unavailable Hans Rivera Attending Unavailable Halko, Franky Referring Unavailable Halko, Franky Primary Care Unavailable Hans Rivera Attending Unavailable Halko, Franky Referring Unavailable Halko, Franky Primary Care Unavailable Halko, Franky Referring Unavailable Halko, Franky Primary Care Unavailable Santiago Og Attending Unavailable Moon Lyman Attending Unavailable Keisha PARTS PERSON, Rolan Polk Referring Unavailable Halko, Franky Primary Care Unavailable Halko, Franky Referring Unavailable Jose M Carver Attending Unavailable Halko, Franky Primary Care Unavailable Allan Coleman Attending Unavailable Halko, Franky Primary Care Unavailable Halko, Franky Referring Unavailable Angus Villalobos Attending Unavailable Halko, Franky Primary Care Unavailable Hans Rivera Attending Unavailable Halko, Franky Referring Unavailable Halko, Franky Primary Care Unavailable Halko, Franky Primary Care Unavailable Hollingsworth, Franky Consulting Unavailable Hollingsworth, Franky Referring Unavailable Allan Coleman Attending Unavailable Halko, Franky Referring Unavailable Halko, Franky Primary Care Unavailable Halko, Franky Attending Unavailable Keisha PARTS PERSON, Rolan Polk Attending Unavailable Keisha PARTS PERSON, Rolan H Referring Unavailable Halko, Franky Primary Care Unavailable Angus Villalobos Attending Unavailable Halko, Franky Primary Care Unavailable Kiersten Wright Attending Unavailable Halko, Franky Referring Unavailable Halko, Franky Primary Care Unavailable Halko, Franky Referring Unavailable Halko, Franky Primary Care Unavailable Yessi Mcqueen Attending Unavailable Halko, Franky Referring Unavailable Halko, Franky Primary Care Unavailable Yessi Mcqueen Attending Unavailable Halko, Franky Referring Unavailable Kiersten Wright Attending Unavailable Halko, Franky Primary Care Unavailable Yessi Mcqueen Attending Unavailable Halko, Franky Referring Unavailable Halko, Franky Primary Care Unavailable Hans Rivera Attending Unavailable Halko, Franky Referring Unavailable Halko, Franky Primary Care Unavailable Halko, Franky Referring Unavailable Halko, Franky Primary Care Unavailable Santiago Og Attending Unavailable Franky Pearson Referring Unavailable Franky Pearson Primary Care Unavailable Franky Pearson Attending Unavailable Franky Pearson Referring Unavailable Franky Pearson Primary Care Unavailable Franky Hollingsworth Attending Unavailable Lili, Franky Referring Unavailable Franky Pearson Primary Care Unavailable Lili, Franky Attending Unavailable Allergies Allergy Classification Reported Allergen(s) Allergy Type Date of Onset Reaction(s) Facility (1 source) NSAIDs Drug allergy (disorder) [facility] Repository Medications Current Medications Medication Drug [...] Status: Ordered acetaminophen 325 mg oral tablet (16 sources) Start: 11-26-2024 take 1 tablet by mouth once as needed for pain Acetaminophen (Tylenol) 325 mg tablet Active 325 mg PO ONCE as needed for pain November 26, 2024 12:00am Start: 02-18-2019 acetaminophen 500 mg oral tablet Dose : 1,000 mg = 2 tab(s), Oral, q6hr, PRN for pain, # 100 tab(s), 0 Refill(s) Start Date: 02/18/19 Status: Ordered brompheniramine maleate 0.4 mg/ml / dextromethorphan hydrobromide 2 mg/ml / pseudoephedrine hydrochloride 6 mg/ml oral solution (1 source) alpha-Adrenergic Agonist, Uncompetitive O-gxyfvs-M-aspartate Receptor Antagonist, Sigma-1 Agonist Start: 08-26-2022 End: 09-02-2022 take 1 dose by mouth four times daily as needed Bromfed DM oral syrup Dose = 10 mL, Oral, QID, PRN for cold symptoms, X 7 day(s), # 120 mL, 0 Refill(s), Pharmacy: [facility] #[id number], Productive cough, 160, cm, 08/24/22 8:00:00 EDT, [...] 0 Refill(s) Start Date: 02/18/19 Status: Ordered ciprofloxacin 500 mg oral tablet (4 sources) Quinolone Antimicrobial Start: 02-02-2025 take 1 tablet by mouth twice daily Ciprofloxacin Hcl 500 mg tablet Active 500 mg PO TWICE A DAY 10 February 02, 2025 12:00am citalopram 20 mg oral tablet (3 sources) Serotonin Reuptake Inhibitor Start: 02-28-2022 End: 05-29-2022 citalopram 20 mg oral tablet Dose : 20 mg = 1 tab(s), Oral, qDay, # 90 tab(s), 0 Refill(s), Pharmacy: [facility], 164, cm, 02/28/22 8:08:00 EDT, Height Start Date: 02/28/22 Stop Date: 05/29/22 Status: Ordered cyclobenzaprine hydrochloride 10 mg oral tablet (1 source) Muscle Relaxant Start: 02-18-2021 cyclobenzaprine 10 mg oral tablet 0 Refill(s) Start Date: 02/18/21 Status: Ordered Diltiazem 2% / Lidocaine 5% Ointment (Compound) ointment (9 sources) Start: 11-26-2024 Diltiazem 2% / Lidocaine 5% Ointment (Compound) ointment Active 0 .ROUTE .MEDSUPPLY 30 0 November 26, 2024 12:00am insert a pea sized amount into rectum TID PRN rectal pain Start: 11-26-2024 Diltiazem 2% / Lidocaine 5% Ointment (Compound) ointment Active 0 .ROUTE .MEDSUPPLY 30 November 26, 2024 12:00am insert a pea sized amount into rectum TID PRN rectal pain DME MISCellaneous (14 sources) Start: 04-04-2022 DME MISCellane ous See Instructions, dx E16.2; check BGT due to hypoglycemic symptoms, up to once per day; dispense one glucometer., # 1 EA, 0 Refill(s), Pharmacy: [facility], Hypoglycemia, 164, cm, 04/04/22 8:05:00 EDT, Height, 86.1 Start Date: 04/04/22 Status: Ordered Start: 04-04-2022 DME MISCellane ous See Instructions, dx E16.2; check BGT due to hypoglycemic symptoms, up to once per day; dispense 100 EtOH wipes, # 100 EA, 0 Refill(s), Pharmacy: [facility], 164, cm, 04/04/22 8:05:00 EDT, Height, 86.1 Start Date: 04/04/22 Status: Ordered docusate sodium 100 mg oral capsule (9 sources) Start: 11-26-2024 take 1 capsule by mouth twice daily Docusate Sodium 100 mg capsule Active 100 mg PO TWICE A DAY 60 2 November 26, 2024 12:00am estradiol 0.5 mg oral tablet (13 sources) Estrogen Start: 08-24-2022 estradiol 0.5 mg oral tablet Dose : 0.5 mg = 1 tab(s), Oral, qDay, # 90 tab(s), 1 Refill(s), Pharmacy: [facility], 160, cm, 08/24/22 8:00:00 EDT, Height, kg, 08/24/22 8:00:00 EDT, Dosing Weight Start Date: 08/24/22 Status: Ordered Start: 11-22-2021 estradiol 0.5 mg oral tablet Dose : 0.5 mg = 1 tab(s), Oral, qDay, # 90 tab(s), 1 Refill(s), Pharmacy: [facility], 163.5, cm, 11/22/21 8:20:00 EDT, Height Start Date: 11/22/21 Status: Ordered Start: 03-25-2021 Estrace 0.5 mg oral tablet Dose : 0.5 mg = 1 tab(s), Oral, qDay, # 90 tab(s), 3 Refill(s), Pharmacy: [facility], 162.6, cm, 02/18/21 8:44:00 EDT, Height, kg, 02/18/21 8:44:00 EDT, Dosing Weight Start Date: 03/25/21 Status: Ordered fexofenadine hydrochloride 60 mg oral tablet (9 sources) Histamine-1 Receptor Antagonist Start: 11-26-2024 take 1 tablet by mouth twice daily as needed Fexofenadine (Becca Allergy) 60 mg tablet Active 60 mg PO TWICE A DAY as needed for allergy symptoms November 26, 2024 12:00am levoFLOXacin 500 mg oral tablet (1 source) Quinolone Antimicrobial Start: 05-22-2021 End: 05-29-2021 take 1 capsule by mouth every twenty-four hours Levaquin use levoFLOXacin Dose : 500 mg =, Oral, q24h, # 7 cap(s), 0 Refill(s), Abdominal pain, 77.3 Start Date: 05/22/21 Stop Date: 05/29/21 Status: Ordered LORazepam 0.5 mg oral tablet (20 sources) [...] 11/23/21, # 30 tab(s), 2 Refill(s), Pharmacy: [facility], Anxiety, 163.5, cm, 11/22/21 8:20:00 EDT, Height, 83.3, kg, 11/22/21 8:... Start Date: 11/22/21 Stop Date: 02/20/22 Status: Ordered Start: 05-31-2021 End: 08-29-2021 LORazepam 0.5 mg oral tablet Dose : 0.5 mg = 1 tab(s), Oral, qDay, PRN as needed for anxiety, oarrs appropriate, to be filled on or after 06/10/21, # 30 tab(s), 2 Refill(s), [facility]: [facility] [address] Anxiety, 162.6, cm, 02/18/21 8:44:00 EDT, Height, 77.3, kg, 02/18/21 8:... Start Date: 05/31/21 Stop Date: 08/29/21 Status: Ordered Start: 03-01-2021 End: 05-30-2021 LORazepam 0.5 mg oral tablet Dose : 0.5 mg = 1 tab(s), Oral, qDay, PRN as needed for anxiety, oarrs appropriate, to be filled on or after 03/01/21, # 30 tab(s), 2 Refill(s), [facility] Anxiety, 162.6, cm, 02/18/21 8:44:00 EDT, Height, 77.3, kg, 02/18/21 8:4... Start Date: 03/01/21 Stop Date: 05/30/21 Status: Ordered take 1 tablet by neha every six hours as needed for anxiety LORazepam (ATIVAN) 0.5 MG tablet Take 0.5 mg by mouth every 6 hours as needed for Anxiety. 0 Active lubiprostone 0.008 mg oral capsule (5 sources) Chloride Channel Activator Start: 01-29-2025 take 1 capsule by mouth twice daily Lubiprostone (Amitiza) 8 mcg capsule Active 8 ug PO TWICE A DAY 60 1 January 29, 2025 12:00am Multiple Vitamins-Minerals (MULTIVITAMIN ADULT PO) (4 sources) take 2 tablets by mouth once daily Multiple Vitamins-Minerals (MULTIVITAMIN ADULT PO) Take 2 tablets by mouth daily 0 Active Multivitamin preparation (13 sources) Start: 02-18-2019 take 1 tablet by mouth twice daily Multivitamin Dose = 1 tab(s), Oral, BID, 0 Refill(s) Start Date: 02/18/19 Status: Ordered Multivitamin tablet (18 sources) Start: 11-26-2024 Multivitamin t ablet Active 1 {tbl} PO daily November 26, [...] 0 Refill(s) Start Date: 05/22/21 Status: Ordered pramipexole dihydrochloride 0.125 mg oral tablet (15 sources) Nonergot Dopamine Agonist Start: 05-31-2021 End: 05-21-2022 pramipexole (Mirapex) 0.125 MG tablet Start: 11-23-2020 End: 05-22-2021 pramipexole 0.125 mg oral ta blet Dose : 0.125 mg = 1 tab(s), Oral, qHS, # 90 tab(s), 1 Refill(s), Pharmacy: [facility], 160, cm, 11/23/20 15:08:00 EDT, Height, kg, 11/23/20 15:08:00 EDT, Dosing Weight Start Date: 11/23/20 Stop Date: 05/22/21 Status: Ordered predniSONE 20 mg oral tablet (1 source) Start: 08-26-2022 End: 08-31-2022 prednisone 20mg tab (TAPER) Dose : 40 mg = 2 tab(s), Oral, qDay, X 5 day(s), # 10 tab(s), 0 Refill(s), 08/31/22 9:59:00 EDT, [facility]acy: [facility] #[id number], Productive cough, 160, cm, 08/24/22 8:00:00 EDT, Height Start Date: 08/26/22 Stop Date: 08/31/22 Status: Ordered 1 mg dose 1.5 ml semaglutide 1.34 [...] Tirzepatide (Mounjaro) 2.5 mg/0.5 mL pen injector (9 sources) Start: 11-26-2024 Tirzepatide (Mounjaro) 2.5 mg/0.5 mL pen injector Active 2.5 mg SC EVERY WEEK November 26, 2024 12:00am for 4 weeks traZODone hydrochloride 50 mg oral tablet (5 sources) Serotonin Reuptake Inhibitor Start: 01-29-2025 Trazodone 50 mg tablet Active 25 mg PO AT BEDTIME as needed January 29, 2025 12:00am VITAMIN D, CHOLECALCIFEROL, PO (4 sources) Start: 10-17-2017 VITAMIN D, CHOLECALCIFEROL, PO Indications: Vitamin D Deficiency , Supplement Take 4,000 Int'l Units by mouth daily 0 10/17/2017 Active Vitamin D3 (8 sources) Start: 02-18-2019 Vitamin D3 Dos e : 4,000 unit(s) = 1 tab(s), Oral, Daily, 0 Refill(s) Start Date: 02/18/19 Status: Ordered Vitamin D3 125 mcg (5000 intl units) oral tablet (5 sources) Start: 08-24-2022 End: 02-20-2023 Vitamin D3 125 mcg (5000 intl units) oral tablet Dose : 125 mcg = 1 tab(s), Oral, qDay, # 90 tab(s), 1 Refill(s), Pharmacy: [facility], 160, cm, 08/24/22 8:00:00 EDT, Height, kg, 08/24/22 8:00:00 EDT, Dosing Weight Start Date: 08/24/22 Stop Date: 02/20/23 Status: Ordered Start: 05-09-2022 End: 11-05-2022 Vitamin D3 125 mcg (5000 int l units) oral tablet Dose : 125 mcg = 1 tab(s), Oral, qDay, # 90 tab(s), 1 Refill(s), Pharmacy: [facility], 164, cm, 04/04/22 8:05:00 EDT, Height Start Date: 05/09/22 Stop Date: 11/05/22 Status: Ordered Completed/Discontinued Medications Medication Drug Class(es) Dates Sig (Normalized) Sig (Original) acetaminophen 300 mg / butalbital 50 mg / caffeine 40 mg oral capsule (18 sources) Barbiturate, Central Nervous System Stimulant, Methylxanthine [...] needed, # 30 cap(s), 2 Refill(s), Pharmacy: [facility], 160, cm, 08/24/22 8:00:00 EDT, Height, kg, 08/24/22 8:00:00 EDT, Dosing Weight Start Date: 08/24/22 Status: Ordered Start: 06-15-2022 take 1 capsule by mouth every four hours as needed acetaminophen/butalbital/caffeine 325 mg -50 mg-40 mg oral capsule Dose = 1 cap(s), Oral, q4h, PRN as needed, # 30 cap(s), 0 Refill(s), [facility]: [facility] #[id number], 164, cm, 05/30/22 8:50:00 EST, Height Start Date: 06/15/22 Status: Ordered acetaminophen 325 mg / HYDROcodone bitartrate 5 mg oral tablet (3 sources) Opioid Agonist Start: 05-22-2021 End: 05-25-2021 take 1 tablet by mouth every six hours as needed for pain [place] 325- 5 mg oral tablet Dose = 1 tab(s), Oral, q6h, PRN as needed for pain, # 10 tab(s), 0 Refill(s), Abdominal pain, 77.3 Start Date: 05/22/21 Stop Date: 05/25/21 Status: Ordered amoxicillin 500 mg oral tablet (9 sources) Penicillin-class Antibacterial Start: 07-23-2024 End: 08-19-2024 take 1 tablet by mouth three times daily Amoxicillin 500 mg tablet Discontinued 500 mg PO THREE TIMES A DAY 30 0 July 23, 2024 1:00am August 19, 2024 9:29am amoxicillin 875 mg / clavulanate 125 mg oral tablet (20 sources) Penicillin-class Antibacterial Start: 04-17-2024 End: 04-27-2024 [...] Status: Ordered apremilast 30 mg oral tablet (18 sources) Start: 05-05-2024 End: 06-13-2024 take 1 [...] (250mg), # 6 tab(s), 0 Refill(s), [facility]acy: [facility] #[id number], Productive cough, 160, cm, 08/24/22 8:00:00 EDT, Height, 79 Start Date: 08/26/22 Stop Date: 08/31/22 Status: Ordered benzonatate 100 mg oral capsule (9 sources) Non-narcotic Antitussive Start: 06-27-2024 End: 11-26-2024 [...] 02/18/19 Status: Ordered take 1 capsule by [facility] once daily Biotin 2500 MCG CAPS Indications: Supplement Take 2,500 mcg by mouth daily 0 Active calcium glucarate 500 mg ora l capsule (18 sources) Start: 04-21-2024 End: 11-26-2024 Calcium Glucarate 500 mg cap wendy Discontinued 1 NMA PO THREE TIMES A DAY April 21, 2024 2:20pm November 26, 2024 9:49am Start: 04-15-2024 End: 04-21-2024 Calcium Glucarate 500 mg cap wendy Discontinued 1 NMA PO TWICE A DAY April 15, 2024 1:00am April 21, 2024 2:26pm cholecalciferol 0.01 mg oral capsule (13 sources) Vitamin D Start: 01-16-2023 End: 11-26-2024 take 1 capsule by mouth once daily Cholecalciferol (Vitamin D3) 10 mcg (400 unit) capsule Discontinued 10 ug PO DAILY January 16, 2023 12:00am November 26, 2024 9:49am doxycycline monohydrate 100 mg oral capsule (9 sources) Tetracycline-cla ss Drug Start: 08-13-2024 End: 08-20-2024 take 1 capsule by mouth twice daily Doxycycline Monohydrate 100 mg capsule Discontinued 100 mg PO TWICE A DAY 14 7 0 August 13, 2024 1:00am August 19, 2024 12:00am August 20, 2024 12:11am estrogens, conjugated (jail) 0.3 mg oral tablet (13 sources) Estrogen Start: 01-16-2023 End: 05-05-2024 take 1 tablet by mouth once daily Conjugated Estrogens 0.3 mg tablet Discontinued 0.3 mg PO DAILY January 16, 2023 12:00am May 05, 2024 12:35pm cyclically ferrous sulfate 325 mg oral tablet (9 sources) Start: 04-15-2024 End: 11-26-2024 take 1 tablet by mouth twice daily Ferrous Sulfate (Ferosul) 325 mg (65 mg iron) tablet Discontinued 325 mg PO TWICE A DAY April 15, 2024 1:00am November 26, 2024 9:49am fluconazole 200 mg oral tablet (20 sources) Azole Antifungal Start: 11-27-2023 End: 05-05-2024 take 1 tablet by mouth once daily Fluconazole 200 mg tablet Discontinued 200 mg PO DAILY November 27, 2023 12:00am May 05, 2024 12:36pm as instructed in office today Start: 05-13-2023 End: 05-05-2024 Fluconazole 150 mg tablet Di scontinued 150 mg PO Every 3 Days 2 0 May 13, 2023 1:00am May 05, 2024 12:36pm may repeat second dose 72 hrs after first dose if symptoms persist Start: 06-14-2021 End: 06-24-2021 Diflucan 150 mg oral tablet Dose : 150 mg = 1 tab(s), Oral, qDay, # 1 tab(s), 1 Refill(s), 06/24/21 10:31:00 EST, [id number], 162.6, cm, 02/18/21 8:44:00 EDT, Height, 77.3, kg, 02/18/21 8:44:00 EDT, Dosing Weight Start Date: 06/14/21 Stop Date: 06/24/21 Status: Ordered levothyroxine sodium 0.025 mg oral tablet (18 sources) l-Thyroxine Start: 04-21-2024 End: 01-13-2025 Levothyroxine 25 mcg tablet Discontinued 12.5 ug PO daily April 21, 2024 2:17pm January 13, 2025 1:37pm Start: 04-15-2024 End: 04-21-2024 take 1 tablet by mouth once daily Levothyroxine 25 mcg tablet Discontinued 25 ug PO daily April 15, 2024 1:00am April 21, 2024 2:26pm linaclotide 0.29 mg oral capsule (9 sources) Guanylate Cyclase-C Agonist Start: 11-26-2024 End: 01-29-2025 take 1 capsule by mouth once daily 30 minutes before breakfast Linaclotide (Linzess) 290 mcg capsule Discontinued 290 ug PO EVERY MORNING 90 November 26, 2024 12:00am January 29, 2025 9:11am take once daily 30 minutes before breakfast metFORMIN hydrochloride 500 mg oral tablet (20 [...] BID, # 180 tab(s), 1 Refill(s), Pharmacy: [facility], 163.5, cm, 11/22/21 8:20:00 EDT, Height, [...] / nitrofurantoin, monohydrate 75 mg oral capsule (18 sources) Nitrofuran Antibacterial Start: 01-28-2024 End: 02-04-2024 [...] 10:19am Start: 11-26-2024 take 1 capsule by [facility] once daily 30 minutes before breakfast Omeprazole [...] qDay, # 90 cap(s), 1 Refill(s), Pharmacy: [facility], 160, cm, 11/23/20 15:08:00 EDT, Height, kg, 11/23/20 15:08:00 EDT, Dosing Weight Start Date: 11/23/20 Stop Date: 05/22/21 Status: Ordered Start: 04-10-2019 take [address] [facility] once daily omeprazole (PRILOSEC) 20 MG delayed release capsule Take 1 capsule by mouth Daily 30 capsule 5 04/10/2019 Active ondansetron 4 mg oral tablet (20 sources) Serotonin-3 Receptor Antagonist Start: 04-15-2024 End: [...] Status: Ordered oseltamivir 75 mg oral capsule (9 sources) Neuraminidase Inhibitor Start: 07-23-2024 End: 07-28-2024 take 1 capsule by mouth twice daily Oseltamivir 75 mg capsule Discontinued 75 mg PO TWICE A DAY 10 5 0 July 23, 2024 1:00am July 27, 2024 1:00am July 28, 2024 1:15am Peg 3350-Sod Sulf,Cont-Cyt-Pxx (Suflave) 178.7-7.3-0.5 gram recon soln (9 sources) Start: 11-26-2024 End: 01-21-2025 Peg 3350-Sod Sulf,Fcht-Bdp-Thi (Suflave) 178.7-7.3-0.5 gram recon soln Discontinued 0 PO .COMPLEX 2 0 November 26, 2024 12:00am January 21, 2025 3:10pm as directed for split dose bowel prep Start: 11-26-2024 Peg 3350-Sod S ulf,Lsxc-Rjw-Qez (Suflave) 178.7-7.3-0.5 gram recon soln Active 0 PO .COMPLEX 2 0 November 26, 2024 12:00am as directed for split dose bowel prep Start: 11-26-2024 Peg 3350-Sod S ulf,Dziv-Cku-Erx (Suflave) 178.7-7.3-0.5 gram recon soln Active 0 PO .COMPLEX 2 November 26, 2024 12:00am as directed for split dose bowel prep phenazopyridine hydrochloride 100 mg oral tablet (9 sources) Start: 01-28-2024 End: 05-05-2024 take 1 tablet by mouth three times daily as needed for pain Phenazopyridine 100 mg tablet Discontinued 100 mg PO THREE TIMES A DAY as needed for pain 6 0 January 28, 2024 12:00am May 05, 2024 12:37pm ramelteon 8 mg oral tablet (9 sources) Melatonin Receptor Agonist Start: 11-26-2024 End: 01-13-2025 take 1 tablet by mouth at bedtime Ramelteon (Rozerem) 8 mg tablet Discontinued 8 mg PO AT BEDTIME November 26, 2024 12:00am January 13, 2025 1:37pm rosuvastatin calcium 20 mg oral tablet (9 sources) HMG-CoA Reductase Inhibitor Start: 04-15-2024 End: 05-05-2024 take 1 tablet by mouth once daily Rosuvastatin 20 mg tablet Discontinued 20 mg PO daily April 15, 2024 1:00am May 05, 2024 12:59pm Semaglutide (20 sources) Start: 04-21-2024 End: 06-13-2024 Semaglutide (Ozempic) [...] 4 weeks thiamine 100 mg oral tablet (9 sources) Start: 04-21-2024 End: 05-05-2024 take 1 tablet by mouth once daily Thiamine Hcl (Vitamin B1) 100 mg tablet Discontinued 100 mg PO daily April 21, 2024 1:00am May 05, 2024 12:37pm venlafaxine 75 mg oral tablet (18 sources) Serotonin and Norepinephrine Reuptake Inhibitor Start: [...] Vitamin B Complex (B Complex-Vitamin B12) tablet (13 sources) Start: 01-16-2023 End: 05-05-2024 Vitamin B [...] 11:00pm zinc gluconate 50 mg oral tablet (14 sources) Start: 04-21-2024 End: 11-26-2024 take 1 tablet by mouth once daily Zinc Gluconate 50 mg tablet Discontinued 50 mg PO daily April 21, 2024 1:00am November 26, 2024 9:52am Start: 05-09-2022 End: 02-20-2023 zinc (as gluconate) 50 mg or al tablet Dose : 50 mg = 1 tab(s), Oral, Daily, # 90 tab(s), 1 Refill(s), Pharmacy: [facility], 160, cm, 08/24/22 8:00:00 EDT, Height, kg, 08/24/22 8:00:00 EDT, Dosing Weight Start Date: 08/24/22 Stop Date: 02/20/23 Status: Ordered Problems Active Problems Problem Classification Problem Date Documented Da te Episodic/Chronic Abdominal pain (1 source) Abdominal pain; Translations: [Unspecified abdominal pain] Onset: 1 Episodic Anal and rectal conditions (20 sources) Rectal pain; Translations: [Other specified diseases of anus and rectum] Onset: 5 11-26-2024 Episodic Anxiety disorders (20 sources) Anxiety disorder, unspecified; Translations: [Anxiety] Onset: 0 11-07-2019 Chronic Coronary atherosclerosis and other heart disease (11 sources) Angina pectoris; Translations: [Angina pectoris, unspecified] Onset: 5 04-21-2024 Chronic Diseases of mouth; excluding dental (13 sources) Aphthous ulcer of mouth; Translations: [Recurrent oral aphthae] 01-16-2023 Episodic Esophageal disorders (20 sources) Gastroesophageal reflux disease without esophagitis; Translations: [Gastroesophageal reflux disease] Onset: 0 10-20-2019 Chronic Gastrointestinal hemorrhage (20 sources) Rectal hemorrhage; Translations: [Hemorrhage of anus and rectum] Onset: 5 11-26-2024 Episodic Headache; including migraine (3 sources) Migraine 08-24-2022 Chronic Immunizations and screening for infectious disease (11 sources) Encounter for screening for other viral diseases; Translations: [Contact with and (suspected) exposure to other viral communicable diseases] Onset: 0 06-27-2024 Episodic Menopausal disorders (13 sources) Menopausal flushing 11-23-2020 Chronic Menstrual disorders (9 sources) Irregular periods; Translations: [Irregular menstruation, unspecified] Onset: 8 06-27-2017 Chronic Mood disorders (20 sources) Major depression in remission; Translations: [Major depressive disorder, single episode, in full remission] 11-07-2019 Chronic Mood disorders (1 source) Major depressive disorder, single episode, unspecified; Translations: [JONNY DEPRESS D/O SINGLE EPIS UNS] Onset: 0 Nausea and vomiting (20 sources) Nausea; Translations: [Nausea] Onset: 5 11-26-2024 Episodic Nonspecific chest pain (3 sources) Chest pain; Translations: [Chest pain, unspecified] Onset: 3 Episodic Nutritional deficiencies (13 sources) Vitamin D deficiency; Translations: [Vitamin D deficiency, unspecified] Onset: 8 10-17-2017 Chronic Other aftercare (1 source) Other mental health associate (current) drug therapy; Translations: [OTH TELESCOPE REPAIRER CURRENT DRUG THERAPY] Onset: 0 Episodic Other [...] Pain in right arm 05-31-2021 Episodic Other connective tissue disease (3 sources) Foot pain; Translations: [Pain in right foot] 02-05-2025 Episodic Other connective tissue disease (1 source) Pain in right foot; Translations: [Pain in right foot] Onset: 5 Episodic Other gastrointestinal disorders (9 sources) Intestinal malabsorption; Translations: [Intestinal malabsorption, unspecified] Onset: 8 04-17-2018 Chronic Other gastrointestinal disorders (1 source) Irritable bowel syndrome without diarrhea; Translations: [IRRITABLE BOWEL SYND W/O DIARRHEA] Onset: 0 Chronic Other gastrointestinal disorders (18 sources) History of bypass of stomach; Translations: [Bariatric surgery status] 05-13-2024 Episodic Other gastrointestinal disorders (20 sources) Abdominal bloating; Translations: [Abdominal distension (gaseous)] 11-26-2024 Episodic Other gastrointestinal disorders (20 sources) Constipation; Translations: [Constipation, unspecified] 11-26-2024 Episodic Other gastrointestinal disorders (1 source) Constipation, unspecified; Translations: [Constipation, unspecified] Onset: 5 Episodic Other gastrointestinal disorders (1 source) Abdominal distension (gaseous); Translations: [Abdominal distension (gaseous)] Onset: 5 Episodic Other gastrointestinal disorders (1 source) Diarrhea, unspecified; Translations: [Diarrhea, unspecified] Onset: 5 Episodic Other hereditary and degenerative nervous system conditions (13 sources) Restless legs 06-25-2020 Chronic Other inflammatory condition of skin (1 source) Erythema intertrigo; Translations: [ERYTHEMA INTERTRIGO] Onset: 0 Episodic Other liver diseases (9 sources) Steatosis of liver; Translations: [Fatty (change of) liver, not elsewhere classified] Onset: 8 04-08-2018 Chronic Other lower respiratory disease (10 sources) Lower respiratory tract infection; Translations: [Unspecified acute lower respiratory infection] 08-13-2024 Episodic Other lower respiratory disease (10 sources) Solitary nodule of lung; Translations: [Solitary pulmonary nodule] 08-19-2024 Episodic Comment on above: RUL 4.6 mm nodule Other non-traumatic joint disorders (13 sources) Pain in left shoulder; Translations: [Left shoulder pain] 05-31-2023 Episodic Other non-traumatic joint disorders (3 sources) Pain in right knee; Translations: [Right knee pain] Onset: 5 02-06-2025 Episodic Other nutritional; endocrine; and metabolic disorders [...] conditions (not mental disorders or infectious disease) (20 sources) Computed tomography result abnormal; Translations: [CT of chest abnormal] Onset: 5 05-31-2021 Chronic Other screening for suspected conditions (not mental disorders or infectious disease) (17 sources) Mammography abnormal; Translations: [Viral screening status] Onset: 4 05-31-2021 Episodic Other upper respiratory infections (20 sources) Maxillary sinusitis; Translations: [Chronic maxillary sinusitis] Onset: 5 05-13-2023 Chronic Other upper respiratory infections (20 sources) Acute pharyngitis; Translations: [Acute pharyngitis, unspecified] 01-16-2023 Episodic Otitis media and related conditions (9 sources) Acute bilateral otitis media ; Translations: [Otitis media, unspecified, bilateral] 12-12-2023 Episodic Residual codes; unclassified (1 source) Obstructive sleep apnea (adult) (pediatric); Translations: [Obstructive sleep apnea (adult) (pediatric)] Onset: 5 Chronic Residual codes; unclassified (13 sources) Immunization due 04-07-2020 Episodic Residual codes; unclassified (13 sources) Insomnia 10-07-2019 Episodic Residual codes; unclassified (13 sources) Postmenopausal state 11-23-2020 Episodic Residual codes; unclassified (3 sources) Screening due 08-24-2022 Episodic Residual codes; unclassified (11 sources) Family history of ischemic heart disease; Translations: [Family history of ischemic heart disease and other diseases of the circulatory system] 08-29-2022 Episodic Screening and history of mental health and substance abuse codes (8 sources) Tobacco use and exposure - finding 02-28-2022 Chronic Spondylosis; intervertebral disc disorders; other back problems (20 sources) Backache; Translations: [Dorsalgia, unspecified] Onset: 8 06-27-2017 Episodic Thyroid disorders (10 sources) Hypothyroidism; Translations: [Hypothyroidism, unspecified] Onset: 4 05-05-2024 Chronic Unclassified (13 sources) Cancer cervix screening status 04-07-2020 Unclassified (13 sources) History of bypass of stomach 10-07-2019 Unclassified (20 sources) Patient encounter status 12-30-2019 Unclassified (2 sources) Bariatrics Post Op Follow-up; Translations: [Bariatrics Post Op Follow-up] Onset: 2 Unclassified (2 sources) Weight Management; Translations: [Weight Management] Onset: 2 Urinary tract infections (17 sources) Recurrent urinary tract infection; Translations: [Urinary tract infectious disease] Onset: 5 Episodic Urinary tract infections (8 sources) Urinary tract infections Viral infection (12 sources) Viral disease; Translations: [...] Onset: 11-27-2017 11-27-2017 Episodic Malaise and fatigue (11 sources) Fatigue; [...] Resolved: 04-10-2019 04-10-2019 Chronic Residual codes; unclassified (1 source) Family history of ischemic heart disease and other diseases of the circulatory system; Translations: [Family history of ischemic heart disease and other diseases of the circulatory system] Onset: 05-06-2024 Episodic Results Test Name Value Interpretation Reference Range Facility Vitamin B1, Thiamineon 02-25 VIT B1 THIAMINE 113.9 nmol/L Normal 66.5-200.0 [facility] Comment on above: Order Comment: Test( s) 035364-Lnf. B1, Whole Bloodwas developed and its performance characteristicsdetermined by [employer]. It has not been cleared or approvedby the Food and Drug Administration. Performed By: #### L 501.9985, L506.1001, L501.9520, L3300.8000, L100.0500, L500.4050, L503.6550, L506.0400, L506.0200, L500.4100, L503.0106, L3300.9900 ####[facility] [id number] [place], [address] Zinc, Plasma or Serumon 02-09 ZINC,PLASMA/SER 62 ug/dL Normal 44-115 [facility] Comment on above: Order Comment: Test( s) 680461-Vuf. B1, Whole Bloodwas developed and its performance characteristicsdetermined by [employer]. It has not been cleared or approvedby the Food and Drug Administration. Result Comment: Dete ction Limit = 5 Performed at: [address] [id number] [employer] Member: James Herrera MD, Phone: [phone] Performed By: #### L 501.9985, L506.1001, L501.9520, L3300.8000, L100.0500, L500.4050, L503.6550, L506.0400, L506.0200, L500.4100, L503.0106, L3300.9900 ####[facility] [address] [place], [place], [phone] CBC-Complete Blood Cnt No Di ffon 02-19-2025 Erythrocyte distribution width (RBC) [Ratio] 12.7 % Normal 11.6-14.6 [facility] Comment on above: Performed By: #### L 501.9985, L506.1001, L501.9520, L3300.8000, L100.0500, L500.4050, L503.6550, L506.0400, L506.0200, L500.4100, L503.0106, L3300.9900 #### [facility] [address] [place], [address] Hematocrit (Bld) [Volume fraction] 37.5 % Normal 37-47 [facility] Comment on above: Performed By: #### L 501.9985, L506.1001, L501.9520, L3300.8000, L100.0500, L500.4050, L503.6550, L506.0400, L506.0200, L500.4100, L503.0106, L3300.9900 #### [facility] [address] [place], [address] Hemoglobin (Bld) [Mass/Vol] 12.3 g/dL Normal 12.0-15.0 [facility] Comment on above: Performed By: #### L 501.9985, L506.1001, L501.9520, L3300.8000, L100.0500, L500.4050, L503.6550, L506.0400, L506.0200, L500.4100, L503.0106, L3300.9900 #### [facility] [address] [facility] [place], [place], [id number] MCH (RBC) [Entitic mass] 30.4 pg Normal 27.0-32.0 [facility] Comment on above: Performed By: #### L 501.9985, L506.1001, L501.9520, L3300.8000, L100.0500, L500.4050, L503.6550, L506.0400, L506.0200, L500.4100, L503.0106, L3300.9900 #### [facility] [address] [place], [address] MCHC (RBC) [Mass/Vol] 32.8 g/dL Normal 32-36 [facility] Comment on above: Performed By: #### L 501.9985, L506.1001, L501.9520, L3300.8000, L100.0500, L500.4050, L503.6550, L506.0400, L506.0200, L500.4100, L503.0106, L3300.9900 #### [facility] [address] [place], [address] MCV (RBC) [Entitic vol] 92.6 fL Normal 81-99 [facility] Comment on above: Performed By: #### L 501.9985, L506.1001, L501.9520, L3300.8000, L100.0500, L500.4050, L503.6550, L506.0400, L506.0200, L500.4100, L503.0106, L3300.9900 #### [facility] [address] [place], [address] Platelet mean volume (Bld) [Entitic vol] 9.7 fL Normal 6.2-12.0 [facility] Comment on above: Performed By: #### L 501.9985, L506.1001, L501.9520, L3300.8000, L100.0500, L500.4050, L503.6550, L506.0400, L506.0200, L500.4100, L503.0106, L3300.9900 #### [facility] [address] [place], [address] Platelets (Bld) [#/Vol] 316 10*3/uL Normal 150-450 [facility] Comment on above: Performed By: #### L 501.9985, L506.1001, L501.9520, L3300.8000, L100.0500, L500.4050, L503.6550, L506.0400, L506.0200, L500.4100, L503.0106, L3300.9900 #### [facility] [address] [place], [address] RBC (Bld) [#/Vol] 4.05 10*6/uL Low 4.2-5.4 [facility] Comment on above: Performed By: #### L 501.9985, L506.1001, L501.9520, L3300.8000, L100.0500, L500.4050, L503.6550, L506.0400, L506.0200, L500.4100, L503.0106, L3300.9900 #### [facility] [address] [place], [place], [id number] (196) RDW SD 43.1 fl Normal 35.1-43.9 [facility] Comment on above: Performed By: #### L 501.9985, L506.1001, L501.9520, L3300.8000, L100.0500, L500.4050, L503.6550, L506.0400, L506.0200, L500.4100, L503.0106, L3300.9900 #### [facility] [address] [place], [place], [phone] WBC (Bld) [#/Vol] 5.3 10*3/uL Normal 4.4-11.0 [facility] Comment on above: Performed By: #### L 501.9985, L506.1001, L501.9520, L3300.8000, L100.0500, L500.4050, L503.6550, L506.0400, L506.0200, L500.4100, L503.0106, L3300.9900 #### [facility] [address] [place], [place], [phone] Comprehensive Metabolic Prof [facility] 02-19-2025 Albumin [Mass/Vol] 4.5 g/dL Normal 3.5-5.0 [facility] Comment on above: Order Comment: FAX R ESULTS TO [phone] Performed By: #### L 501.9985, L506.1001, L501.9520, L3300.8000, L100.0500, L500.4050, L503.6550, L506.0400, L506.0200, L500.4100, L503.0106, L3300.9900 #### [facility] [address] [place], [place], [id number] Albumin/Globulin [Mass ratio] 1.4 {ratio} Normal 0.9-2.4 [facility] Comment on above: Order Comment: FAX R ESULTS TO [phone] Performed By: #### L 501.9985, L506.1001, L501.9520, L3300.8000, L100.0500, L500.4050, L503.6550, L506.0400, L506.0200, L500.4100, L503.0106, L3300.9900 #### [facility] [address] [place], [place], [phone] ALK PHOS 128 U/L High 35-104 [facility] Comment on above: Order Comment: FAX R ESULTS TO [phone] Performed By: #### L 501.9985, L506.1001, L501.9520, L3300.8000, L100.0500, L500.4050, L503.6550, L506.0400, L506.0200, L500.4100, L503.0106, L3300.9900 #### [facility] [address] [place], [place], [phone] ALT [Catalytic activity/Vol] 20 U/L Normal <=34 [facility] Comment on above: Order Comment: FAX R ESULTS TO [phone] Performed By: #### L 501.9985, L506.1001, L501.9520, L3300.8000, L100.0500, L500.4050, L503.6550, L506.0400, L506.0200, L500.4100, L503.0106, L3300.9900 #### [facility] [address] [place], [place], [phone] AST [Catalytic activity/Vol] 21 U/L Normal <=31 [facility] Comment on above: Order Comment: FAX R ESULTS TO [phone] Performed By: #### L 501.9985, L506.1001, L501.9520, L3300.8000, L100.0500, L500.4050, L503.6550, L506.0400, L506.0200, L500.4100, L503.0106, L3300.9900 #### [facility] [address] [place], [address] Bilirubin [Mass/Vol] 0.32 mg/dL Normal 0.00-1.30 [facility] Comment on above: Order Comment: FAX R ESULTS TO [phone] Performed By: #### L 501.9985, L506.1001, L501.9520, L3300.8000, L100.0500, L500.4050, L503.6550, L506.0400, L506.0200, L500.4100, L503.0106, L3300.9900 #### [facility] [address] [place], [place], [phone] BUN/CRE 9.8 RATIO Low 10-20 [facility] Comment on above: Order Comment: FAX R ESULTS TO [phone] Performed By: #### L 501.9985, L506.1001, L501.9520, L3300.8000, L100.0500, L500.4050, L503.6550, L506.0400, L506.0200, L500.4100, L503.0106, L3300.9900 #### [facility] [address] [place], [place], [phone] (609) Calcium [Mass/Vol] 9.6 mg/dL Normal 7.6-11.0 [facility] Comment on above: Order Comment: FAX R ESULTS TO [phone] Performed By: #### L 501.9985, L506.1001, L501.9520, L3300.8000, L100.0500, L500.4050, L503.6550, L506.0400, L506.0200, L500.4100, L503.0106, L3300.9900 #### [facility] [address] [place], [address] (881) Chloride [Moles/Vol] 106 mmol/L Normal 98-108 [facility] Comment on above: Order Comment: FAX R ESULTS TO [phone] Performed By: #### L 501.9985, L506.1001, L501.9520, L3300.8000, L100.0500, L500.4050, L503.6550, L506.0400, L506.0200, L500.4100, L503.0106, L3300.9900 #### [facility] [address] [place], [place], [phone] (434) CO2 [Moles/Vol] 25.9 mmol/L Normal 21.0-32.0 [facility] Comment on above: Order Comment: FAX R ESULTS TO [phone] Performed By: #### L 501.9985, L506.1001, L501.9520, L3300.8000, L100.0500, L500.4050, L503.6550, L506.0400, L506.0200, L500.4100, L503.0106, L3300.9900 #### [facility] [address] [place], [address] (028) Creatinine [Mass/Vol] 0.92 mg/dL Normal 0.70-1.20 [facility] Comment on above: Order Comment: FAX R ESULTS TO [phone] Performed By: #### L 501.9985, L506.1001, L501.9520, L3300.8000, L100.0500, L500.4050, L503.6550, L506.0400, L506.0200, L500.4100, L503.0106, L3300.9900 #### [facility] [address] [place], [place], [phone] GAP 11 Normal 5-15 [facility] Comment on above: Order Comment: FAX R ESULTS TO [phone] Performed By: #### L 501.9985, L506.1001, L501.9520, L3300.8000, L100.0500, L500.4050, L503.6550, L506.0400, L506.0200, L500.4100, L503.0106, L3300.9900 #### [facility] [address] [place], [address] GFR/1.73 sq M.predicted among non-blacks MDRD (S/P/Bld) [Vol rate/Area] 75 mL/min/{1.73_m2} Normal >60 [facility] Comment on above: Order Comment: FAX R ESULTS TO [phone] Result Comment: mL/m in/1.73m2 CKD-EPI Creatinine Equation (2020) Performed By: #### L 501.9985, L506.1001, L501.9520, L3300.8000, L100.0500, L500.4050, L503.6550, L506.0400, L506.0200, L500.4100, L503.0106, L3300.9900 #### [facility] [address] [place], [place], [phone] Globulin (S) [Mass/Vol] 3.2 g/dL Normal 2.2-4.2 [facility] Comment on above: Order Comment: FAX R ESULTS TO [phone] Performed By: #### L 501.9985, L506.1001, L501.9520, L3300.8000, L100.0500, L500.4050, L503.6550, L506.0400, L506.0200, L500.4100, L503.0106, L3300.9900 #### [facility] [address] [place], [address] Glucose [Mass/Vol] 90 mg/dL Normal 70-99 [facility] Comment on above: Order Comment: FAX R ESULTS TO [phone] Performed By: #### L 501.9985, L506.1001, L501.9520, L3300.8000, L100.0500, L500.4050, L503.6550, L506.0400, L506.0200, L500.4100, L503.0106, L3300.9900 #### [facility] [address] [place], [place], [phone] (354) Potassium [Moles/Vol] 4.9 mmol/L Normal 3.3-5.1 [facility] Comment on above: Order Comment: FAX R ESULTS TO [phone] Performed By: #### L 501.9985, L506.1001, L501.9520, L3300.8000, L100.0500, L500.4050, L503.6550, L506.0400, L506.0200, L500.4100, L503.0106, L3300.9900 #### [facility] [address] [place], [address] Sodium [Moles/Vol] 143 mmol/L Normal 133-145 [facility] Comment on above: Order Comment: FAX R ESULTS TO [phone] Performed By: #### L 501.9985, L506.1001, L501.9520, L3300.8000, L100.0500, L500.4050, L503.6550, L506.0400, L506.0200, L500.4100, L503.0106, L3300.9900 #### [facility] [address] [place], [address] T PROT 7.7 g/dL Normal 5.9-8.4 [facility] Comment on above: Order Comment: FAX R ESULTS TO [phone] Performed By: #### L 501.9985, L506.1001, L501.9520, L3300.8000, L100.0500, L500.4050, L503.6550, L506.0400, L506.0200, L500.4100, L503.0106, L3300.9900 #### [facility] [address] [place], [address] Urea nitrogen [Mass/Vol] 9 mg/dL Normal 4-19 [facility] Comment on above: Order Comment: FAX R ESULTS TO [phone] Performed By: #### L 501.9985, L506.1001, L501.9520, L3300.8000, L100.0500, L500.4050, L503.6550, L506.0400, L506.0200, L500.4100, L503.0106, L3300.9900 #### [facility] [address] [place], [address] Ferritinon 02-19-2025 Ferritin [Mass/Vol] 17 ng/mL Low 22-378 [facility] Comment on above: Order Comment: FAX R ESULTS TO [phone] Performed By: #### L 501.9985, L506.1001, L501.9520, L3300.8000, L100.0500, L500.4050, L503.6550, L506.0400, L506.0200, L500.4100, L503.0106, L3300.9900 ####[facility] [address] [place], [place], [phone] Folates,Serum (Folic Acid)on 02-19-2025 FOLATES,SERUM 6.36 ng/mL Normal 4.60-34.80 [facility] Comment on above: Order Comment: N Performed By: #### L 501.9985, L506.1001, L501.9520, L3300.8000, L100.0500, L500.4050, L503.6550, L506.0400, L506.0200, L500.4100, L503.0106, L3300.9900 #### [facility] [address] [place], [address] Hemoglobin A1con 02-19-2025 HbA1c (Bld) [Mass fraction] 5.5 % Normal <=5.6 [facility] Comment on above: Result Comment: Norm al < 5.7 % Prediabetic 5.7 - 6.4 % Diabetic >or= 6.5 % Please note range changes. Performed By: #### L 501.9985, L506.1001, L501.9520, L3300.8000, L100.0500, L500.4050, L503.6550, L506.0400, L506.0200, L500.4100, L503.0106, L3300.9900 #### [facility] [address] [place], [address] Lipid Profileon 02-19-2025 CHOL:HDL 2.42 Normal [facility] Comment on above: Order Comment: FAX R ESULTS TO [phone] Performed By: #### L 501.9985, L506.1001, L501.9520, L3300.8000, L100.0500, L500.4050, L503.6550, L506.0400, L506.0200, L500.4100, L503.0106, L3300.9900 ####[facility] [address] [place], [address] Cholesterol [Mass/Vol] 163 mg/dL Normal <=200 [facility] Comment on above: Order Comment: FAX R ESULTS TO [phone] Result Comment: Chol esterol level, Desirable <200 mg/dL Borderline high cholesterol 200-239 mg/dL High cholesterol >=240 mg/dL Recommendations of the NCEP Adult Treatment Panel for the following risk-cutoff thresholds for the [place] population. Performed By: #### L 501.9985, L506.1001, L501.9520, L3300.8000, L100.0500, L500.4050, L503.6550, L506.0400, L506.0200, L500.4100, L503.0106, L3300.9900 ####[facility] [address] [place], [address] Cholesterol in HDL [Mass/Vol] 67 mg/dL Normal [facility] Comment on above: Order Comment: FAX R ESULTS TO [phone] Result Comment: Alicia onal Cholesterol Education Program (NCEP) guidelines: <40 mg/dL: Low HDL-cholesterol (major risk factor for CHD) >= 60 mg/dL: High HDL-cholesterol (negative risk factor for CHD) HDL-cholesterol is affected by a number of factors, e.g. smoking, exercise, hormones, sex and age. Performed By: #### L 501.9985, L506.1001, L501.9520, L3300.8000, L100.0500, L500.4050, L503.6550, L506.0400, L506.0200, L500.4100, L503.0106, L3300.9900 ####[facility] [address] [place], [address] Cholesterol in LDL [Mass/Vol] 82 mg/dL Normal [facility] Comment on above: Order Comment: FAX R ESULTS TO [phone] Result Comment: Bord ajeunl=246-191 mg/dL Higher Caql=617 mg/dL or greater Friedwald Equation for LDL-C Performed By: #### L 501.9985, L506.1001, L501.9520, L3300.8000, L100.0500, L500.4050, L503.6550, L506.0400, L506.0200, L500.4100, L503.0106, L3300.9900 ####[facility] [address] [place], [place], [id number] Cholesterol in VLDL [Mass/Vol] 14 mg/dL Normal 5-40 [facility] Comment on above: Order Comment: FAX R ESULTS TO [phone] Performed By: #### L 501.9985, L506.1001, L501.9520, L3300.8000, L100.0500, L500.4050, L503.6550, L506.0400, L506.0200, L500.4100, L503.0106, L3300.9900 ####[facility] [id number] [place], [place], [id number] Triglyceride [Mass/Vol] 68 mg/dL Normal [facility] Comment on above: Order Comment: FAX R ESULTS TO [phone] Result Comment: The drugs N-Acetylcysteine and Metamizole may falsely depress this assay. Normal range: <150 mg/dL Borderline High: 150-199 mg/dL High: 200-499 mg/dL Very High: >500 mg/dL Performed By: #### L 501.9985, L506.1001, L501.9520, L3300.8000, L100.0500, L500.4050, L503.6550, L506.0400, L506.0200, L500.4100, L503.0106, L3300.9900 ####[facility] [id number] [place], [place], [phone] T4 Free Directon 02-19-2025 T4 FREE DIRECT 1.00 ng/dL Normal 0.76-1.46 [facility] Comment on above: Order Comment: FAX R ESULTS TO [phone] Performed By: #### L 501.9985, L506.1001, L501.9520, L3300.8000, L100.0500, L500.4050, L503.6550, L506.0400, L506.0200, L500.4100, L503.0106, L3300.9900 ####[facility] [address] [place], [place], [id number] Thyroid Stim Hormone (TSH)on 02-19-2025 TSH 1.490 uIU/mL Normal 0.300-4.20 0 [facility] Comment on above: Order Comment: FAX R ESULTS TO [phone] Performed By: #### L 501.9985, L506.1001, L501.9520, L3300.8000, L100.0500, L500.4050, L503.6550, L506.0400, L506.0200, L500.4100, L503.0106, L3300.9900 ####[facility] [address] [place], [address] Vitamin B12on 02-19-2025 Cobalamin (Vitamin B12) [Mass/Vol] 248 pg/mL Normal 180-914 [facility] Comment on above: Order Comment: FAX R ESULTS TO [phone] Performed By: #### L 501.9985, L506.1001, L501.9520, L3300.8000, L100.0500, L500.4050, L503.6550, L506.0400, L506.0200, L500.4100, L503.0106, L3300.9900 ####[facility] [address] [place], [place], [id number] Vitamin D,25 Hydroxyon 02-19 Vitamin D 25-OH 33.2 ng/mL Normal 30-100 [facility] Comment on above: Order Comment: FAX R ESULTS TO [phone] Result Comment: Araceli min D Status Deficiency: <20 ng/mL (50nmol/L) Insufficiency: 20-30 ng/mL (50-75 nmol/L) Sufficiency: 30-100 ng/mL (75-250 nmol/L) Toxicity: >100 ng/mL (>250 nmol/L) Performed By: #### L 501.9985, L506.1001, L501.9520, L3300.8000, L100.0500, L500.4050, L503.6550, L506.0400, L506.0200, L500.4100, L503.0106, L3300.9900 ####[facility] [address] [facility] [place], [address] Foot min 3 Viewson Foot min 3 Views [facility] Imaging Services [address] [place] [address] Foot min 3 Views MR#: [id number] Acct: [id number] Name: AMANDA GRUBBS Rep #: [id number] : 1970 F 54 From: Nandini Love MD PCP: Dr. Franky Pearson DO Status: DEP AMB Study: Foot min 3 Views Date of Exam: 02/06/25 Exam# [id number] Ordering Dr: Jolie Joseph EXAM: XR Right Foot Complete, 3 or More Views CLINICAL INDICATION: ON GOING PAIN, NKI TECHNIQUE: Frontal, lateral and oblique views of the right foot. COMPARISON: No relevant prior studies available. FINDINGS: BONES/JOINTS: Mild degenerative changes of the intertarsal joints. No acute fracture. No dislocation. SOFT TISSUES: Soft tissue swelling. RAD/Foot min 3 Views IMPRESSION: Degenerative changes as above. Reading Location: [facility] CC: PARTS PERSONHi Joseph; Dr. Franky Pearson DO Power Lineworker: Signed Normal [facility] Knee 4 or More Viewson 02-06 Knee 4 or More Views [facility] Imaging Services [address] [place] [address] Knee 4 or More Views MR#: [id number] Acct: [id number] Name: AMANDA GRUBBS Rep #: [id number] : 1970 F 54 From: Nandini Love MD PCP: Dr. Franky Pearson, Status: DEP AMB Study: Knee 4 or More Views Date of Exam: 02/06/25 Exam# [id number] Ordering Dr: Jolie Joseph EXAM: XR Right Knee Complete, 4 or More Views CLINICAL INDICATION: ON GOING PAIN, NKI TECHNIQUE: Four or more views of the right knee. COMPARISON: No relevant prior studies available. FINDINGS: BONES/JOINTS: Unremarkable. No acute fracture. No dislocation. SOFT TISSUES: Unremarkable. RAD/Knee 4 or More Views IMPRESSION: No acute fracture. Reading Location[facility] CC: PARTS PERSONHi Joseph; Dr. Franky Pearson DO Power Lineworker: Signed Normal [facility] Orthopedic Visit Reporton Orthopedic Visit Report [facility] [address] [place] [address] OFFICE VISIT Date of Service: 02/06/25 MR#: [id number] Acct: [id number] Name: AMANDA GRUBBS Rep #: [id number] : 1970 Provider: ANA montanez Age/Sex: 54/F Location: [facility] [place] [facility] Status: Signed Intake Vital Signs 01/29/25 09:18 02/06/25 08:21 Height 5 ft 3 in 5 ft 3 in Weight: 169 lb BMI 29.9 Intake Visit Reasons: RIGHT FOOT Chief Complaint: Right foot pain Accompanied by: Self Is patient in pain?: Yes Pain scale (1-10): 4 Allergies No Known Allergies Allergy (Verified 02/06/25 08:25) Medications ???Medication ???Instructions ???Recorded ???Confirmed ???Type Diltiazem 2% / Lidocaine 5% #30 grams 11/26/24 02/06/25 Rx ointment (compound) acetaminophen 325 mg tablet 325 mg PO ONCE PRN pain 11/26/24 0 02/06/25 History (Tylenol) bupropion HCl 75 mg tablet 75 mg PO TID 11/26/24 02/06/25 His tory docusate sodium 100 mg capsule 100 mg PO BID #60 caps 11/26/24 Rx fexofenadine 60 mg tablet (Becca 60 mg PO BID PRN allergy symptom s 11/26/24 02/06/25 History Allergy) lorazepam 0.5 mg tablet (Ativan) 0.25 mg PO DAILY PRN anxiety 11/2602/06/25 History multivitamin 1 tab PO QDAY 11/26/24 02/06/25 Hi story omeprazole 40 mg capsule,delayed 40 mg PO QDAY #90 caps 11/26/24 Rx release tirzepatide 2.5 mg/0.5 mL 2.5 mg subcut QWEEK 11/26/2402/06 History subcutaneous pen injector (Mounjaro) lubiprostone 8 mcg capsule 8 mcg PO BID #60 caps 01/29/25 Rx (Amitiza) trazodone 50 mg tablet 25 mg PO QHS PRN 01/29/25 02/06/25 History ciprofloxacin HCl 500 mg tablet 500 mg PO BID #10 tabs 02/02/25 Rx Have you fallen in the past year?: Yes PFSH Medical History Recurrent UTI (urinary tract infection) Kidney stones Wears glasses Wears partial dentures Depression Thyroid disease Back pain Migraine headache Non-smoker History of IBS Gastric reflux History of stress test History of echocardiogram Cardiology follow-up encounter Lower respiratory tract infection Bacterial sinusitis Anginal [...] type: does not use caffeine: Yes HPI RIGHT FOOT Details: This documentation accurately reflects the service provided and the decisions made by me, JADEN SkinnerC 02/06/25 0821. Part of today???s visit was documented by Regina Bernal MA, acting as scribe. AMANDA GRUBBS is a 54 year old F here today for right foot pain. Patient states that her pain is a 4 today. The pain in the right foot is right at the top of the foot on top of the 3 middle toes. She states that she does have a bunion on the side of the right big toe. Describes pain as sharp and feels like her foot is broken. No identified injury to the foot, negative surgeries. Symptoms are aggravated with prolonged standing, stair use and walking. States she has had a bunion to the right great toe that is increasing in size and discomfort over time. No prior evaluation in the past. Both bunion and foot pain progressively worse over time. Some relief with as needed Tylenol, rest and elevation. Patient also purchased a wraparound foot brace which does seem to offer some help. Also reports she gets some right knee catching sensation, most noted with step use over the last couple of months, not sure if this correlates with her foot pain. No prior knee injuries or surgeries. No wraps or braces used. Patient states that she doesn't have any diabetes, or blood thinners. Patient doesn't smoke, or do any drugs. Patient states that she does walk funny, because of the right foot pain. She states that she does walk a little better when she wears her right foot brace. ROS Con (more content not included)... Normal [facility] Urine Cultureon 02-04-2025 URC Presumptive E. coli [place] Count 80,000-100,000 Presumptive E. coli: REACTION Ampicillin Islt CARMEN >=32 Ampicillin+Sulbac Islt CARMEN 16 I Cefepime Islt CARMEN <=0.12 S cefTRIAXone Islt CARMEN <=0.25 S Ciprofloxacin Islt CARMEN <=0.06 S B-Lactamase Extended Susc Islt NEG Gentamicin Islt CARMEN >=16 R levoFLOXacin Islt CARMEN <=0.12 S Meropenem Islt CARMEN <=0.25 S Nitrofurantoin Islt CARMEN <=16 S Pip+Tazo Islt CARMEN <=4 S TMP SMX Islt CARMEN >=320 R Normal [facility] Comment on above: Performed By: #### M 100.2200 ####[facility] [id number] [place], [address] Urgent Care Visit Reporton 0 02-02-2025 Urgent Care Visit Report [facility] [address], [address] [place], [place] [address] OFFICE VISIT Date of Service: 02/02/25 MR#: [id number] Acct: [id number] Name: AMANDA GRUBBS Rep #: [id number] : 1970 Provider: BLU Marshall Age/Sex: 54/F Location: [facility] Status: Signed Intake Vital Signs 01/29/25 09:18 02/02/25 13:41 Height 5 ft 3 in Weight: 169 lb BMI 29.9 BP 116/72 122/62 H Blood Pressure Location Lt brachial Lt brachial Position Sitting Sitting Respiration 16 16 Pulse 90 81 Pulse Source Monitor Monitor Temp 98.3 F Temp Source Oral Pulse Oximetry (%) 98 98 Oxygen Delivery Method room air Intake Visit Reasons: CONCERN FOR UTI Chief Complaint: UTI sx Is patient in pain?: No Allergies No Known Allergies Allergy (Verified 02/02/25 13:36) Medications ???Medication ???Instructions ???Recorded ???Confirmed ???Type Diltiazem 2% / Lidocaine 5% #30 grams 11/26/24 02/02/25 Rx ointment (compound) acetaminophen 325 mg tablet 325 mg PO ONCE PRN pain 11/26/24 0 02/02/25 History (Tylenol) bupropion HCl 75 mg tablet 75 mg PO TID 11/26/24 02/02/25 His tory docusate sodium 100 mg capsule 100 mg PO BID #60 caps 11/26/24 Rx fexofenadine 60 mg tablet (Becca 60 mg PO BID PRN allergy symptom s 11/26/24 02/02/25 History Allergy) lorazepam 0.5 mg tablet (Ativan) 0.25 mg PO DAILY PRN anxiety 11/2602/02/25 History multivitamin 1 tab PO QDAY 11/26/24 02/02/25 Hi story omeprazole 40 mg capsule,delayed 40 mg PO QDAY #90 caps 11/26/24 Rx release tirzepatide 2.5 mg/0.5 mL 2.5 mg subcut QWEEK 11/26/2402/02 History subcutaneous pen injector (Mounjaro) lubiprostone 8 mcg capsule 8 mcg PO BID #60 caps 01/29/25 Rx (Amitiza) trazodone 50 mg tablet 25 mg PO QHS PRN 01/29/25 02/02/25 History ciprofloxacin HCl 500 mg tablet 500 mg PO BID #10 tabs 02/02/25 Rx Nurse's Note: pt presents for UTI sx, these include abd pain, low back pain, frequency, hesitancy, retention, feeling fatigued occurring- 4-5 days tx- tylenol, last dosage last night hx of of utis/ kidney infections PFSH Medical History (Updated 02/02/25 @ 13:56 by Angus HURT, PA) Recurrent UTI (urinary tract infection) Kidney stones Wears glasses Wears partial dentures Depression Thyroid disease Back pain Migraine headache Non-smoker History of IBS Gastric reflux History of stress test History of echocardiogram Cardiology follow-up encounter Lower respiratory tract infection Bacterial sinusitis Anginal [...] use caffeine: Yes HPI HPI Chief Complaint: UTI sx Details: AMANDA GRUBBS, is a 54 F who presents to the office today for [facility] evaluation at [facility] for approximately 3-4 day history of dysuria and urinary frequency with low back pain and suprapubic pressure and fatigue. No complaints of fever, chills, sweats, lightheadedness/dizziness, nausea/vomiting, chest pain/shortness of breath/dyspnea on exertion, or midback pain. No changes in color/ character of urine or stool. Tylenol taken w/ minimal assist. She notes concerns due to multiple UTIs and pyelonephritis over last couple years. No other associated symptoms and no alleviating/aggravating factors. ROS Const Constitutional: No other (As above) Exam Const General: cooperative, healthy appearing and no acute distress Orientation: alert, awake Chest Chest palpation inspection: normal inspection of the chest Resp Effort Inspection: normal respiratory effort and able to speak in complete sentences Cardio Rate: regular rate Pulses: radial pulses present GI Inspection: normal to inspection Palpation: soft and tender suprapubic (Patient describes upon self-palpation) General: No CV (more content not included)... Normal [facility] Urine cultureOrdered By: Brayan Villalobos on 02-02-2025 Bacteria identified Cx Nom (U) Presumptive E. coli Abnormal [facility] Gastroenterology Visit Repor ton 01-29-2025 Gastroenterology Visit Report [facility] [address] [place] [address] OFFICE VISIT Date of Service: 01/29/25 MR#: [id number] Acct: [id number] Name: AMANDA GRUBBS Rep #: [id number] : 1970 Provider: ANA mendiola Age/Sex: 54/F Location: [facility] Status: Signed Intake Vital Signs 01/16/25 05:54 01/29/25 09:18 Height 5 ft 3 in 5 ft 3 in Weight: 169 lb BMI 29.9 BP 116/72 Blood Pressure Location Lt brachial Position Sitting Respiration 16 Pulse 90 Pulse Source Monitor Pulse Oximetry (%) 98 Intake Visit Reasons: Test Result Chief Complaint: follow-up Allergies No Known Allergies Allergy (Verified 02/06/25 08:25) Medications ???Medication ???Instructions ???Recorded ???Confirmed ???Type Diltiazem 2% / Lidocaine 5% #30 grams 11/26/24 02/06/25 Rx ointment (compound) acetaminophen 325 mg tablet 325 mg PO ONCE PRN pain 11/26/24 0 02/06/25 History (Tylenol) bupropion HCl 75 mg tablet 75 mg PO TID 11/26/24 02/06/25 His tory docusate sodium 100 mg capsule 100 mg PO BID #60 caps 11/26/24 Rx fexofenadine 60 mg tablet (Becca 60 mg PO BID PRN allergy symptom s 11/26/24 02/06/25 History Allergy) lorazepam 0.5 mg tablet (Ativan) 0.25 mg PO DAILY PRN anxiety 11/2602/06/25 History multivitamin 1 tab PO QDAY 11/26/24 02/06/25 Hi story omeprazole 40 mg capsule,delayed 40 mg PO QDAY #90 caps 11/26/24 Rx release tirzepatide 2.5 mg/0.5 mL 2.5 mg subcut QWEEK 11/26/2402/06 History subcutaneous pen injector (Mounjaro) lubiprostone 8 mcg capsule 8 mcg PO BID #60 caps 01/29/25 Rx (Amitiza) trazodone 50 mg tablet 25 mg PO QHS PRN 01/29/25 02/06/25 History ciprofloxacin HCl 500 mg tablet 500 mg PO BID #10 tabs 02/02/25 Rx PFSH Medical History Recurrent UTI (urinary tract infection) Kidney stones Wears glasses Wears partial dentures Depression Thyroid disease Back pain Migraine headache Non-smoker History of IBS Gastric reflux History of stress test History of echocardiogram Cardiology follow-up encounter Lower respiratory tract infection Bacterial sinusitis Anginal [...] use caffeine: Yes HPI HPI Chief Complaint: follow-up Details: OV 11/26/2024 A 54-year-old female presents for initial consultation with chronic constipation, rectal pain, and intermittent rectal bleeding associated with hard stools. She also reports upper esophageal burning without dysphagia and a loss of appetite. Her history is significant for gastric bypass in 2018 and GLP-1 agonist use for weight loss over the past 2 years. Diet and fluid intake are notably poor. She reports having bowel movements only every 5???7 days, with hard stools, straining, and a sensation of incomplete evacuation. This past weekend, she experienced a sudden onset of intense abdominal cramping followed by a single episode of urgent, bloody diarrhea. She denies any ongoing cramping and has no history of HRT, hypercoagulability, or CAD. Suspect rectal pain is likely due to an anal fissure; started diltiazem/lidocaine cream. Constipation is likely multifactorial: poor diet/fluid intake, GLP-1 use; started docusate and Linzess 290 mcg daily, recommended use of Squatty Potty, and discussed possible future anorectal manometry. Advised follow-up with PCP to consider reducing GLP-1 dosing. Reviewed risks of poor nutrition post-bariatric surgery, including vitamin deficiencies, sarcopenia, alopecia, and visual changes. One-time episode of bloody diarrhea with cramping is concerning for possible ischemic colitis; scheduled colonoscopy and EGD. Advised that recurrence warrants expedited colonoscopy. Increased PPI to 40 mg daily. Pa (more content not included)... Normal [facility] Colonoscopy Reporton 025 Colonoscopy Report [facility] Medical Records Department [address] [place] [address] Colonoscopy Report MR#: [id number] Acct: [id number] Name: AMANDA GRUBBS Rep #: [id number] : 1970 54 From: Rock Pineda DO PCP: Dr. Franky Pearson DO [place] [facility] Patient Name: Amanda Grubbs Procedure Date: 01/16/2025 6:54 AM Date of : 1970 Age: 54 Procedure: Colonoscopy Indications: Generalized abdominal pain, Clinically significant diarrhea of unexplained origin Providers: Rock Pineda DO Referring MD: Franky Pearson Do Medicines: Monitored Anesthesia Care Patient Profile: This is a 54 year old female. Refer to note in patient chart for documentation of history and physical. Patient has symptoms of acute epigastric abdominal pain, chronic dyspepsia and chronic nausea. Last Colonoscopy: several years ago. Complications: No immediate complications. Procedure: Pre-Anesthesia Assessment: - Prior to the procedure, a History and Physical was performed, and patient medications and allergies were reviewed. The patient is competent. The risks and benefits of the procedure and the sedation options and risks were discussed with the patient. All questions were answered and informed consent was obtained. Patient identification and proposed procedure were verified by the physician in the pre-procedure area. Mental Status Examination: alert and oriented. Airway Examination: normal oropharyngeal airway and neck mobility. Respiratory Examination: clear to auscultation. CV Examination: normal. Prophylactic Antibiotics: The patient does not require prophylactic antibiotics. Prior Anticoagulants: The patient has taken no anticoagulant or antiplatelet agents. ASA Grade Assessment: II - A patient with mild systemic disease. After reviewing the risks and benefits, the patient was deemed in satisfactory condition to undergo the procedure. The anesthesia plan was to use monitored anesthesia care (MAC). Immediately prior to administration of medications, the patient was re-assessed for adequacy to receive sedatives. The heart rate, respiratory rate, oxygen saturations, blood pressure, adequacy of pulmonary ventilation, and response to care were monitored throughout the procedure. The physical status of the patient was re-assessed after the procedure. After I obtained informed consent, the scope was passed under direct vision. Throughout the procedure, the patient's blood pressure, pulse, and oxygen saturations were monitored continuously. The was introduced through the anus and advanced to the cecum, identified by appendiceal orifice and ileocecal valve. The colonoscopy was performed without difficulty. The patient tolerated the procedure well. The quality of the bowel preparation was poor. The ileocecal valve, appendiceal orifice, and rectum were photographed. Scope In: 6:56:06 AM Scope Withdrawal Time 0 hours 7 minutes 37 seconds Scope Out: 7:08:24 AM Total Procedure Duration Time 0 hours 12 minutes 18 seconds Findings: The perianal and digital rectal examinations were normal. An area of mildly congested mucosa was found in the recto-sigmoid colon and in the sigmoid colon. Biopsies were taken with a cold forceps for histology. Verification of patient identification for the specimen was done. Estimated blood loss was minimal. Stool was found in the entire colon, precluding visualization. Lavage of the area was performed using copious amounts of sterile water, resulting in incomplete clearance with continued poor visualization. There was a medium-sized lipoma, in the ascending colon. Impression: - Preparation of the colon was poor. - Congested mucosa in the recto-sigmoid colon and in the sigmoid colon. Biopsied. - Stool in the entire examined colon. Recommendation: - Discharge patient to home. - Resume previous diet. - Continue present medications. - Await pathology results. - Repeat colonoscopy because the bowel preparation was poor. Procedure Code(s): --- Professional --- 27328, Colonoscopy, flexible; with biopsy, single or multiple CPT copyright 2021 [employer]. All rights reserved. The codes documented in this report are preliminary and upon certified medical coder review may be revised to meet current compliance requirements. Rock Pineda DO 01/16/2025 7:19:59 AM This report has been signed electronically. Number of Addenda: 0 Note Initiated On: 01/16/2025 6:54 AM 01/16/25 0720 Date Rock Caldwell Signature: Date (if indicated) CC: Dr. Franky Pearson DO; Rock Pineda DO Date Dictated: 01/16/25 0654 Date Transcribed: Power Lineworker: SHAN Signed Normal [facility] EGD Reporton 01-16-2025 EGD Report [facility] Medical Records Department [address] [place] [address] EGD Report MR#: [id number] Acct: [id number] Name: AMANDA GRUBBS Rep #: [id number] : 1970 54 From: Rock Pineda DO PCP: Dr. Franky Pearson DO [place] [facility] [place] Patient Name: Amanda Grubbs Procedure Date: 01/16/2025 6:23 AM Date of : 1970 Age: 54 Procedure: Upper GI endoscopy Indications: Epigastric abdominal pain, Functional Dyspepsia Providers: Rock Pineda DO Referring MD: Franky Pearson Do Medicines: Monitored Anesthesia Care Patient Profile: This is a 54 year old female. Refer to note in patient chart for documentation of history and physical. Patient has symptoms of acute epigastric abdominal pain, chronic dyspepsia and chronic nausea. Complications: No immediate complications. Procedure: Pre-Anesthesia Assessment: - Prior to the procedure, a History and Physical was performed, and patient medications and allergies were reviewed. The patient is competent. The risks and benefits of the procedure and the sedation options and risks were discussed with the patient. All questions were answered and informed consent was obtained. Patient identification and proposed procedure were verified by the physician in the pre-procedure area. Mental Status Examination: alert and oriented. Airway Examination: normal oropharyngeal airway and neck mobility. Respiratory Examination: clear to auscultation. CV Examination: normal. Prophylactic Antibiotics: The patient does not require prophylactic antibiotics. Prior Anticoagulants: The patient has taken no anticoagulant or antiplatelet agents. ASA Grade Assessment: II - A patient with mild systemic disease. After reviewing the risks and benefits, the patient was deemed in satisfactory condition to undergo the procedure. The anesthesia plan was to use monitored anesthesia care (MAC). Immediately prior to administration of medications, the patient was re-assessed for adequacy to receive sedatives. The heart rate, respiratory rate, oxygen saturations, blood pressure, adequacy of pulmonary ventilation, and response to care were monitored throughout the procedure. The physical status of the patient was re-assessed after the procedure. After obtaining informed consent, the endoscope was passed under direct vision. Throughout the procedure, the patient's blood pressure, pulse, and oxygen saturations were monitored continuously. The was introduced through the mouth, and advanced to the anastomosis site of gastric bypass. The upper GI endoscopy was accomplished without difficulty. The patient tolerated the procedure well. Scope In: 6:49:45 AM Scope Out: 6:54:34 AM Total Procedure Duration Time 0 hours 4 minutes 49 seconds Findings: The examined esophagus was normal. A small hiatal hernia was present. One non-bleeding linear gastric ulcer with no stigmata of bleeding was found in the gastric fundus. The lesion was 4 mm in largest dimension. Biopsies were taken with a cold forceps for histology. Verification of patient identification for the specimen was done. Estimated blood loss was minimal. Biopsies were taken with a cold forceps for Helicobacter pylori testing. Verification of patient identification for the specimen was done. Estimated blood loss was minimal. The examined jejunum was normal. Biopsies were taken with a cold forceps for histology. Verification of patient identification for the specimen was done. Estimated blood loss was minimal. Impression: - Normal esophagus. - Small hiatal hernia. - Non-bleeding gastric ulcer with no stigmata of bleeding. Biopsied. - Normal examined jejunum. Biopsied. Recommendation: - Discharge patient to home. - Resume previous diet. - Continue present medications. - Await pathology results. Procedure Code(s): --- Professional --- 59909, Esophagogastroduodenoscopy, flexible, transoral; with biopsy, single or multiple CPT copyright 2021 [employer]. All rights reserved. The codes documented in this report are preliminary and upon certified medical coder review may be revised to meet current compliance requirements. Rock Pineda DO 01/16/2025 7:17:27 AM This report has been signed electronically. Number of Addenda: 0 Note Initiated On: 01/16/2025 6:23 AM 01/16/25 0718 Date Rock Caldwell Signature: Date (if indicated) CC: Dr. Franky Pearson DO; Rock Pineda DO Date Dictated: 01/16/25622 Date Transcribed: Power Lineworker: SHAN Signed Normal [facility] Immunohistochemical Stainson 01-16-2025 Immunohistochemical Stains Patient Age/Sex Location Account Attending Physician AMANDA GRUBBS 54/F EN [id number] Rock Pineda DO Specimen: [id number] Received: 01/16/25 Status: ARLEEN Mitchell Num: [id number] Spec Type: EGD BIOPSY Subm Dr: Rock Pineda DO HEADER OPERATION: Colonoscopy with biopsies, EGD with biopsies PRE-OP DIAGNOSIS: Rectal bleeding, constipation, bloating, nausea, rectal pain TISSUE SUBMITTED: A- Jejunum biopsy, B- Gastric ulcer biopsy, C- Random colon biopsy MICROSCOPIC DIAGNOSIS A. Jejunum, small bowel, biopsy: No specific pathologic change. B. Gastric ulcer, biopsy: Antral mucosa with features of reactive gastropathy. IHC for H pylori pending, to be reported in an addendum. C. Colon, random biopsy: No specific pathologic change. MICROSCOPIC DESCRIPTION Slides are reviewed. All matched controls reacted appropriately. These tests were developed and their performance characteristics determined by [facility]. They may not have been cleared or approved by the U.S. Food and Drug Administration. The FDA has determined that such clearance or approval is not necessary. The above immunohistochemical/dualISH markers are viewed by the Pathologist. GROSS DESCRIPTION A. Received in fixative is one container labeled with the patient's name and designated Jejunum biopsy. The specimen consists of two irregular fragments of light grant soft tissue that measure 0.5 and 0.6 cm. The specimen is totally submitted in one cassette. B. Received in fixative is one container labeled with the patient's name and designated Gastric ulcer biopsy. The specimen consists of one irregular fragment of light grant soft tissue that measures 0.4 cm. The specimen is totally submitted in one cassette. C. Received in fixative is one container labeled with the patient's name and designated Random colon biopsy. The specimen consists of four irregular fragments of light grant soft tissue that measure 0.3 to 0.5 cm. The specimen is totally submitted in one cassette. [place] 01/16/2025 [facility]:[id number] Patient Age/Sex Location Account Attending Physician AMANDA GRUBBS 54/F EN [id number] Rock Pineda, DO ADDENDUM Addendum 1 Entered: 01/21/25-1301 This addendum is to report the IHC stain for H pylori on part B: B. IHC negative for H pylori organisms. Addendum Signed (signature on file) Dr. Sima Pascal MD 01/21/25 4006 Patient Age/Sex Location Account Attending Physician AMANDA GRUBBS 54/F EN [id number] Rock Pineda DO Signed (signature on file) Dr. Sima Pascal MD 01/20/25 1233 Normal [facility] Comment on above: Performed By: #### MAXIMO DILLON ####[facility] [id number] [place], [place], [id number] MR/OP.PROVATon 01-16-2025 [facility] Medical Records Department [address] [place] [address] Provation Physician Letter MR#: [id number] Acct: [id number] Name: AMANDA GRUBBS Rep #: [id number] : 1970 54 From: Rocksharon Pineda DO PCP: Dr. Franky Pearson DO [place] [facility] [place]/16/[place]25 Franky Pearson Do Re : Colonoscopy procedure for Amanda Pearson This procedure was performed on Thursday, January 16, 2025. My impressions and recommendations are as follows: Impressions : - Preparation of the colon was poor. - Congested mucosa in the recto-sigmoid colon and in the sigmoid colon. Biopsied. - Stool in the entire examined colon. Recommendations : - Discharge patient to home. - Resume previous diet. - Continue present medications. - Await pathology results. - Repeat colonoscopy because the bowel preparation was poor. My findings are described in the full procedure note, which is enclosed. If I can be of further assistance, please feel free to contact me at . Sincerely, Rock Pineda DO 01/16/2025 7:19:59 AM This report has been signed electronically. 01/16/25 0720 Date Rock Pineda DO Cosigner Signature: Date (if indicated) CC: Dr. Franky Pearson DO; Rock Pineda DO Date Dictated: 01/16/25 0654 Date Transcribed: Power Lineworker: SHAN Signed [facility] MR/OP.[facility] Medical Records Department [address] [place] [id number] Provation Physician Letter MR#: [id number] Acct: [id number] Name: AMANDA GRUBBS Rep #: [id number] : 1970 54 From: Rock Pineda DO PCP: Dr. Franky Pearson DO [place] [facility] [place]/16/2025 Franky Pearson Do Re : Upper GI endoscopy procedure for Amanda Pearson This procedure was performed on Thursday, January 16, 2025. My impressions and recommendations are as follows: Impressions : - Normal esophagus. - Small hiatal hernia. - Non-bleeding gastric ulcer with no stigmata of bleeding. Biopsied. - Normal examined jejunum. Biopsied. Recommendations : - Discharge patient to home. - Resume previous diet. - Continue present medications. - Await pathology results. My findings are described in the full procedure note, which is enclosed. If I can be of further assistance, please feel free to contact me at . Sincerely, Rock Pineda DO 01/16/2025 7:17:27 AM This report has been signed electronically. 01/16/25717 Date Rock Pineda DO Cosigner Signature: Date (if indicated) CC: Dr. Franky Pearson DO; Rock Pineda DO Date Dictated: 01/16/25622 Date Transcribed: Power Lineworker: SHAN Signed [facility] MR/POSTOP.[facility] 01-16-2025 MR/POSTOP.[facility] Medical Records Department [address] [place] [address] Anesthesia Postop Eval I 01/16/25718 MR#: [id number] Acct: [id number] Name: AMANDA GRUBBS Rep #: [id number] : 1970 54 From: Frederic Nicole PCP: Dr. Franky Pearson DO Status:REG SDC Y Race: C Location: [place] [address] Anesthesia: Postop Eval I Current Vital Signs Temperature: 97.3 F Pulse Rate: 76 Blood Pressure: 101/64 Respiratory Rate: 16 Pulse Ox: 100 Oxygen Delivery Method: Room Air Assessment Airway patent: Yes Spontaneous unlabored respirations: Yes Mental status: Awake and Calm nausea: No Vomiting: No Anesthesia Complication: No Fluid Hydration Crystalloid volume administer (ml): 500 Total IV fluid infused: 500 Progress Note Anesthesia document: Postop Eval 1 completed: Yes 01/16/25719 Date Frederic Barney Signature: Date CC: Signed Normal [facility] Surgery Specimen Level Sukhwinder 01-16-2025 Surgery Specimen Level IV Patient Age/Sex Location Account Attending Physician AMANDA GRUBBS 54/F EN [id number] Rock Pineda DO Specimen: [id number] Received: 01/16/25 Status: ARLEEN Mitchell Num: [id number] Spec Type: EGD BIOPSY Subm Dr: Rock Friend, DO HEADER OPERATION: Colonoscopy with biopsies, EGD with biopsies PRE-OP DIAGNOSIS: Rectal bleeding, constipation, bloating, nausea, rectal pain TISSUE SUBMITTED: A- Jejunum biopsy, B- Gastric ulcer biopsy, C- Random colon biopsy MICROSCOPIC DIAGNOSIS A. Jejunum, small bowel, biopsy: No specific pathologic change. B. Gastric ulcer, biopsy: Antral mucosa with features of reactive gastropathy. IHC for H pylori pending, to be reported in an addendum. C. Colon, random biopsy: No specific pathologic change. MICROSCOPIC DESCRIPTION Slides are reviewed. GROSS DESCRIPTION A. Received in fixative is one container labeled with the patient's name and designated Jejunum biopsy. The specimen consists of two irregular fragments of light grant soft tissue that measure 0.5 and 0.6 cm. The specimen is totally submitted in one cassette. B. Received in fixative is one container labeled with the patient's name and designated Gastric ulcer biopsy. The specimen consists of one irregular fragment of light grant soft tissue that measures 0.4 cm. The specimen is totally submitted in one cassette. C. Received in fixative is one container labeled with the patient's name and designated Random colon biopsy. The specimen consists of four irregular fragments of light grant soft tissue that measure 0.3 to 0.5 cm. The specimen is totally submitted in one cassette. [place] 01/16/2025 [facility]:[id number] Patient Age/Sex Location Account Attending Physician AMANDA GRUBBS 54/F EN [id number] Rock Pineda, DO Signed (signature on file) Dr. Sima Pascal MD 01/20/25 1233 Normal [facility] Comment on above: Performed By: #### MAXIMO DILLON ####[facility] [address] [place], [address] MR/PAT.ANEon 01-13-2025 /PAT.[facility] Medical Records Department [address] [place] [address] PAT - Anesthesia 01/13/25 1645 MR#: [id number] Acct: [id number] Name: AMANDA GRUBBS Rep #: [id number] : 1970 54 From: Selvin Slater MD PCP: Dr. 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 When Was Last Pacemaker Check QUESTION #4 FULL TEXT: You/Your Family Experience fever (hyperthermia) with Anesthesia Last Oral Intake Last Oral intake: Last Oral Intake NPO since Meds taken in AM with sips of water? Meds patient instructed to take am of surgery PONV PONV - amusement ride operator: PONV - amusement ride operator Female No 01/13/25 13:38 HX of Motion Sickness Yes 01/13/25 13:38 HX of N/V After Surgery Yes 01/13/25 13:38 Non-Smoker Yes 01/13/25 13:38 Duration of Surgery greater No 01/13/25 13:38 than 60 minutes Number of Risk Factors 3 01/13/25 13:38 PONV Score Moderate Risk 01/13/25 13:38 Height Weight Height Weight: Anesthesia: Height Weight Height 5 ft 3 in 11/26/24 09:57 Respiratory Assessment Respiratory Assessment - amusement ride operator: Respiratory Tract Infection Hx - amusement ride operator Hx Respiratory Tract Infection No 01/13/25 13:38 STOP Sleep Apnea STOP Sleep Apnea - amusement ride operator: STOP Sleep Apnea - amusement ride operator Hx Hypertension No 01/13/25 13:38 Hx Sleep Apnea No 01/13/25 13:38 CPAP BIPAP Do you snore loudly (louder No 01/13/25 13:38 than talking or can be heard Do you often feel tired/ No 01/13/25 13:38 fatigued/ sleepy during daytime? Has anyone observed you stop No 01/13/25 13:38 breathing during sleep? STOP Results Negative 01/13/25 13:38 QUESTION #5 FULL TEXT : Do you snore loudly (louder than talking or can be heard through closed doors)? 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 Specify any problems Hx of Preganancy in last 3 No 01/13/25 13:38 Months Nurse Filling Out Transfusion CPOWERS2 01/13/25 13:38 Questions: Date: 01/13/25 01/13/25 13:38 Time: 13:41 01/13/25 13:38 Patient unable to answer at this time (ie. 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 Hx Now Gestational Age (in weeks): EDC: Hx Hx Para Hx Section SAB PFSH Medical History (Updated 01/13/25 @ 13:48 by Elver Bush) Kidney stones Wears glasses Wears partial dentures Depression Thyroid disease Back pain Migraine headache Non-smoker History of IBS Gastric reflux History of stress test History of echocardiogram Cardiology follow-up encounter Lower respiratory tract infection Bacterial sinusitis Anginal pain Somatic dysfunction of lower extremity Psoriatic arthritis Prediabetes Family history of ischemic heart disease Anxiety Secondary insomnia Iron deficiency B12 deficiency Major depression in remission Hypothyroid Anemia Acute pharyngitis, unspecified Aphthous ulcer of mouth delivery delivered Home Medications ???Medication ???Instructions ???Recorded ???Last Taken ???Type Diltiazem 2% / Lidocaine 5% #30 grams 11/26/24 Unknown Rx ointment (compound) acetaminophen 325 mg tablet 325 mg PO ONCE PRN pain 11/26/24 U nknown History (Tylenol) bupropion HCl 75 mg tablet 75 mg PO TID 11/26/24 Unknown Hist (more content not included)... Normal [facility] Chiropractic Reporton 2024 Chiropractic Report [facility] Chiropractic [address] [place] [address] OFFICE VISIT Date of Service: 01/05/25 MR#: [id number] Acct: [id number] Name: AMANDA GRUBBS Rep #: [id number] : 1970 Provider: BUCK Méndez Age/Sex: 54/F Location: [facility] [place] Status: Signed Intake Vital Signs 11/26/24 09:57 [...] #90 caps 11/26/24 Rx release peg 3350-sod sulf,bsctv-qkp-otq See Rx Instructions PO .COMPLEX #2 11/26/24 01/05/25 Rx 178.7-7.3-0.5-1.12-0.9 gram oral mL soln (Suflave) ramelteon 8 mg tablet (Rozerem) 8 mg PO QHS 11/26/24 01/05/25 Hist ory tirzepatide 2.5 mg/0.5 mL 2.5 mg subcut QWEEK 11/26/2401/05 History subcutaneous pen injector (Dawsonunjames) [facility] Medical History Lower respiratory tract infection Bacterial [...] out of alignment. She participated in the [employer] run this past weekend but feels pretty [...] T5 and (more content not included)... Normal [facility] Chiropractic Reporton 2024 Chiropractic Report [facility]rop[facility]ic [address] [place] [address] OFFICE VISIT Date of Service: 12/18/24 MR#: [id number] Acct: [id number] Name: AMANDA GRUBBS Rep #: [id number] : 1970 Provider: BUCK Méndez Age/Sex: 54/F Location: [facility] [place] [facility] Status: Signed Intake Vital Signs 11/26/24 09:57 [...] #90 caps 11/26/24 Rx release peg 3350-sod sulf,nkrpo-cvw-ecl See Rx Instructions PO .COMPLEX #2 11/26/24 12/18/24 Rx 178.7-7.3-0.5-1.12-0.9 gram oral mL soln (Suflave) ramelteon 8 mg tablet (Rozerem) 8 mg PO QHS 11/26/24 12/18/24 Hist ory tirzepatide 2.5 mg/0.5 mL 2.5 mg subcut QWEEK 11/26/2412/18 History subcutaneous pen injector (Mounjaro) [facility] Medical History Lower respiratory tract infection Bacterial [...] (upper thor (more content not included)... Normal [facility] Gastroenterology Visit Repor ton 11-26-2024 Gastroenterology Visit Report [facility] Gastroenterology [address] [place] [address] OFFICE VISIT Date of Service: 11/26/24 MR#: [id number] Acct: [id number] Name: AMANDA GRUBBS FAN Rep #: [id number] : 1970 Provider: ANA mendiola Age/Sex: 54/F Location: [facility] [place] Status: Signed Intake Vital Signs 09/25/24 10:43 [...] Chief Complaint: abdomina pain, bloating, N/V, bleeding Manager Demand Required: No Accompanied by: Self Is patient [...] #90 caps 11/26/24 Rx release peg 3350-sod sulf,moyql-myc-akf See Rx Instructions PO .COMPLEX #2 11/26/24 11/26/24 Rx 178.7-7.3-0.5-1.12-0.9 gram oral mL soln (Suflave) ramelteon 8 mg tablet (Rozerem) 8 mg PO QHS 11/26/24 11/26/24 Hist ory tirzepatide 2.5 mg/0.5 mL 2.5 mg subcut QWEEK 11/26/2411/26 History subcutaneous pen injector (Mounjaro) [facility] Medical History Lower respiratory tract infection Bacterial [...] office today for Gastric bypass 2018 hysterectomy 2015 total CCX 2003 - occasional alcohol - never smoker - [...] for headache(s (more content not included)... Normal [facility] Office Visit Reporton [address] [facility] [address] [place] [address] OFFICE VISIT Date of Service: 06/27/24 MR#: [id number] Acct: [id number] Patient: AMANDA GRUBBS Rep #: [id number] : 1970 Provider: BLU Clinton Age/Sex: 54/F Location: [facility] [place] Status: Signed Intake Vital Signs 06/13/24 12:45 [...] spasm Improve ROM Target Due Date 10/25/24 11/27/24 0814 Date Hans Barney Signature: Date (if applicable) CC: Normal [facility] Chiropractic Reporton 2024 Chiropractic Report [facility] Chiropractic [address] [place] [address] OFFICE VISIT Date of Service: 09/25/24 MR#: [id number] Acct: [id number] Name: AMANDA GRUBBS Rep #: [id number] : 1970 Provider: BUCK Méndez Age/Sex: 54/F Location: [facility] [place] Status: Signed Intake Vital Signs 08/19/24 07:30 [...] 10:43) Medications ???Medication ???Instructions ???Recorded ???Confirmed ???Type uxrccsxczx-dwsrzycwcuutp-yk ffeine 1 cap PO Q8H PRN h/a [...] Yes cervical (more content not included)... Normal [facility] Pulmonary Visit Reporton Pulmonary Visit Report [facility] Medicine of [address] [place] [address] OFFICE VISIT Date of Service: 08/19/24 MR#: [id number] Acct: [id number] Name: AMANDA GRUBBS Rep #: [id number] : 1970 Provider: Moon Lyman NP Age/Sex: 54/F Location: [facility] [place].[facility] Status: Signed Assessment and Plan Assessment and [...] is being referred from Rolan Valdes, Cardiology [facility]. Her PCP is Dr. Franky Pearson. She is a lifelong non-smoker. 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 She has never seen a ultrasound coordinator. The patient indicates that she had COVID [...] January 2024. The patient has imaging from [facility] including a chest CT on 2022 which [...] BA, [place], ST, chest congest, sinus pressure Manager Demand Required: No DME Vendor: n/a Accompanied by: Self Is patient in pain?: No Allergies No Known Allerg (more content not included)... Normal [facility] Urgent Care Visit Reporton 0 08-13-2024 Urgent Care Visit Report [facility] [address], [address] [place] [address] OFFICE VISIT Date of Service: 08/13/24 MR#: [id number] Acct: [id number] Name: AMANDA GRUBBS Rep #: [id number] : 1970 Provider: ANA Carver Age/Sex: 54/F Location: [facility] [place] Status: Signed Intake Vital Signs 06/13/24 12:45 08/13/24 08:34 Height 5 ft 3 in BP 120/60 Position Sitting Pulse 83 Temp 97.6 F L Temp Source Oral Pulse Oximetry (%) 99 Oxygen Delivery Method room air Intake Visit Reasons: CONCERN FOR PNEUMONIA Accompanied by: Self Allergies No Known Allergies Allergy (Verified 08/13/24 08:38) Medications ???Medication ???Instructions ???Recorded ???Confirmed ???Type jdtvqehvph-rruxfgwndblxl-rw ffeine 1 cap PO Q8H PRN h/a [...] from her nose. Patient grandson had pneumonia. [facility] Medical History (Updated 08/13/24 @ 08:43 by ANA Beltran) Lower respiratory tract infection Bacterial sinusitis Anginal [...] discuss possibl (more content not included)... Normal [facility] Office Visit Reporton 2024 Office Visit Report [facility] [address] [place] [address] OFFICE VISIT Date of Service: 07/23/24 MR#: [id number] Acct: [id number] Patient: AMANDA GRUBBS Rep #: [id number] : 1970 Provider: BLU Marshall Age/Sex: 54/F Location: [facility] Status: Signed Employer Purchased Covid Test Note: Patient here today for Covid Testing, requested by their Employer. Assessment and Plan Assessment and Plan Orders: Orders POC Cepheid Covid, FluAB, RSV Today POC Dior Rapid Strep A Today Plan Details Goals Barriers: Goals Decrease pain Decrease spasm Decrease HAs 07/23/24 1402 Date Angus HURT Cosigner Signature: Date (if applicable) CC: Normal [facility] Urgent Care Visit Reporton 0 07-23-2024 Urgent Care Visit Report [facility] [address] [place] [address] OFFICE VISIT Date of Service: 07/23/24 MR#: [id number] Acct: [id number] Name: AMANDA GRUBBS Rep #: [id number] : 1970 Provider: BLU Marshall Age/Sex: 54/F Location: [facility] [place] Status: Signed with Addenda ADDENDUM by BLU [...] No close contacts with similar complaints. ???No ewib-edc-qurfwok products taken to assist. No other associated symptoms and no other alleviating/aggravating factors. ROS Const Constitutional: No other (As above) Exam Const General: cooperative, healthy appearing and no acute distress Orientation: alert, awake and oriented x3 [facility] Head: normal to inspection Ears: hearing grossly [...] Acute streptococcal (more content not included)... Normal [facility] Urgent Care Visit Report [facility] [address] [place] [address] OFFICE VISIT Date of Service: 07/23/24 MR#: [id number] Acct: [id number] Name: AMANDA GRUBBS Rep #: [id number] : 1970 Provider: BLU Marshall Age/Sex: 54/F Location: [facility] [place] Status: Signed Intake Vital Signs 06/13/24 12:45 07/23/24 11:58 Height 5 ft 3 in BP 124/64 H Blood Pressure Location Lt brachial Position Sitting Respiration 16 Pulse 107 H Pulse Source NIBP Temp 97.9 F Temp Source Oral Pulse Oximetry (%) 95 Oxygen Delivery Method room air Intake Visit Reasons: COVID [employer] EMPLOYEE Chief Complaint: BA, [place], ST, chest congest, sinus pressure Manager Demand Required: No Is patient in pain?: No [...] No close contacts with similar complaints. ???No udcy-baf-noqyyfh products taken t (more content not included)... Normal [facility] Vitamin B1, Thiamineon 07-08 VIT B1 THIAMINE 89.5 nmol/L Normal 66.5-200.0 [facility] Comment on above: Order Comment: Test( s) 045614-Gts. B1, Whole Bloodwas developed and its performance characteristicsdetermined by [employer]. It has not been cleared or approvedby the Food and Drug Administration. Performed By: #### L 3300.9900, L503.6030, L506.0400, L506.1000, L3300.8000, L100.0500, L503.6550, L503.0105, L501.9520, L500.4050, L501.9985, L500.4100, L506.0250 ####[facility] [address] [place], [place], [phone] Zinc, Plasma or Serumon 06-12 ZINC,PLASMA/SER 62 ug/dL Normal 44-115 [facility] Comment on above: Order Comment: Test( s) 130286-Srx. B1, Whole Bloodwas developed and its performance characteristicsdetermined by [employer]. It has not been cleared or approvedby the Food and Drug Administration. Result Comment: Dete ction Limit = 5 Performed at: [address] [id number] [employer] Member: James Herrera MD, Phone: [phone] Performed By: #### L 3300.9900, L503.6030, L506.0400, L506.1000, L3300.8000, L100.0500, L503.6550, L503.0105, L501.9520, L500.4050, L501.9985, L500.4100, L506.0250 ####[facility] [address] [place], [address] CBC-Complete Blood Cnt No Di ffon 07-01-2024 Erythrocyte distribution width (RBC) [Ratio] 12.6 % Normal 11.6-14.6 [facility] Comment on above: Performed By: #### L 3300.9900, L503.6030, L506.0400, L506.1000, L3300.8000, L100.0500, L503.6550, L503.0105, L501.9520, L500.4050, L501.9985, L500.4100, L506.0250 ####[facility] [address] [place], [address] Hematocrit (Bld) [Volume fraction] 36.8 % Low 37-47 [facility] Comment on above: Performed By: #### L 3300.9900, L503.6030, L506.0400, L506.1000, L3300.8000, L100.0500, L503.6550, L503.0105, L501.9520, L500.4050, L501.9985, L500.4100, L506.0250 ####[facility] [address] [place], [address] Hemoglobin (Bld) [Mass/Vol] 11.7 g/dL Low 12.0-15.0 [facility] Comment on above: Performed By: #### L 3300.9900, L503.6030, L506.0400, L506.1000, L3300.8000, L100.0500, L503.6550, L503.0105, L501.9520, L500.4050, L501.9985, L500.4100, L506.0250 ####[facility] [address] [place], [address] MCH (RBC) [Entitic mass] 30.2 pg Normal 27.0-32.0 [facility] Comment on above: Performed By: #### L 3300.9900, L503.6030, L506.0400, L506.1000, L3300.8000, L100.0500, L503.6550, L503.0105, L501.9520, L500.4050, L501.9985, L500.4100, L506.0250 ####[facility] [address] [place], [place], [phone] MCHC (RBC) [Mass/Vol] 31.8 g/dL Low 32-36 [facility] Comment on above: Performed By: #### L 3300.9900, L503.6030, L506.0400, L506.1000, L3300.8000, L100.0500, L503.6550, L503.0105, L501.9520, L500.4050, L501.9985, L500.4100, L506.0250 ####[facility] [address] [place], [place], [phone] MCV (RBC) [Entitic vol] 94.8 fL Normal 81-99 [facility] Comment on above: Performed By: #### L 3300.9900, L503.6030, L506.0400, L506.1000, L3300.8000, L100.0500, L503.6550, L503.0105, L501.9520, L500.4050, L501.9985, L500.4100, L506.0250 ####[facility] [address] [place], [place], [phone] Platelet mean volume (Bld) [Entitic vol] 9.1 fL Normal 6.2-12.0 [facility] Comment on above: Performed By: #### L 3300.9900, L503.6030, L506.0400, L506.1000, L3300.8000, L100.0500, L503.6550, L503.0105, L501.9520, L500.4050, L501.9985, L500.4100, L506.0250 ####[facility] [address] [place], [address] Platelets (Bld) [#/Vol] 288 10*3/uL Normal 150-450 [facility] Comment on above: Performed By: #### L 3300.9900, L503.6030, L506.0400, L506.1000, L3300.8000, L100.0500, L503.6550, L503.0105, L501.9520, L500.4050, L501.9985, L500.4100, L506.0250 ####[facility] [address] [place], [address] RBC (Bld) [#/Vol] 3.88 10*6/uL Low 4.2-5.4 [facility] Comment on above: Performed By: #### L 3300.9900, L503.6030, L506.0400, L506.1000, L3300.8000, L100.0500, L503.6550, L503.0105, L501.9520, L500.4050, L501.9985, L500.4100, L506.0250 ####[facility] [address] [place], [address] RDW SD 43.9 fl Normal 35.1-43.9 [facility] Comment on above: Performed By: #### L 3300.9900, L503.6030, L506.0400, L506.1000, L3300.8000, L100.0500, L503.6550, L503.0105, L501.9520, L500.4050, L501.9985, L500.4100, L506.0250 ####[facility] [address] [place], [address] WBC (Bld) [#/Vol] 6.6 10*3/uL Normal 4.4-11.0 [facility] Comment on above: Performed By: #### L 3300.9900, L503.6030, L506.0400, L506.1000, L3300.8000, L100.0500, L503.6550, L503.0105, L501.9520, L500.4050, L501.9985, L500.4100, L506.0250 ####[facility] [address] [place], [place], [phone] Comprehensive Metabolic Prof ilon 07-01-2024 Albumin [Mass/Vol] 3.7 g/dL Normal 3.2-5.0 [facility] Comment on above: Order Comment: Y Performed By: #### L 3300.9900, L503.6030, L506.0400, L506.1000, L3300.8000, L100.0500, L503.6550, L503.0105, L501.9520, L500.4050, L501.9985, L500.4100, L506.0250 ####[facility] [address] [place], [place], [phone] Albumin/Globulin [Mass ratio] 0.9 {ratio} Normal 0.9-2.4 [facility] Comment on above: Order Comment: Y Performed By: #### L 3300.9900, L503.6030, L506.0400, L506.1000, L3300.8000, L100.0500, L503.6550, L503.0105, L501.9520, L500.4050, L501.9985, L500.4100, L506.0250 ####[facility] [address] [place], [place], [phone] ALK P 108 U/L Normal 45-117 [facility] Comment on above: Order Comment: Y Performed By: #### L 3300.9900, L503.6030, L506.0400, L506.1000, L3300.8000, L100.0500, L503.6550, L503.0105, L501.9520, L500.4050, L501.9985, L500.4100, L506.0250 ####[facility] [address] [place], [address] ALT [Catalytic activity/Vol] 18 U/L Normal 13-56 [facility] Comment on above: Order Comment: Y Performed By: #### L 3300.9900, L503.6030, L506.0400, L506.1000, L3300.8000, L100.0500, L503.6550, L503.0105, L501.9520, L500.4050, L501.9985, L500.4100, L506.0250 ####[facility] [address] [place], [address] AST [Catalytic activity/Vol] 12 U/L Low 15-37 [facility] Comment on above: Order Comment: Y Performed By: #### L 3300.9900, L503.6030, L506.0400, L506.1000, L3300.8000, L100.0500, L503.6550, L503.0105, L501.9520, L500.4050, L501.9985, L500.4100, L506.0250 ####[facility] [address] [place], [address] Bilirubin [Mass/Vol] 0.20 mg/dL Normal 0.20-1.00 [facility] Comment on above: Order Comment: Y Result Comment: For patients on eltrombopag therapy, use of Dimension [place] TBIL is not recommended. Performed By: #### L 3300.9900, L503.6030, L506.0400, L506.1000, L3300.8000, L100.0500, L503.6550, L503.0105, L501.9520, L500.4050, L501.9985, L500.4100, L506.0250 ####[facility] [address] [place], [address] BUN/CRE 9.7 RATIO Low 10-20 [facility] Comment on above: Order Comment: Y Performed By: #### L 3300.9900, L503.6030, L506.0400, L506.1000, L3300.8000, L100.0500, L503.6550, L503.0105, L501.9520, L500.4050, L501.9985, L500.4100, L506.0250 ####[facility] [address] [place], [address] CA,Total 9.5 mg/dL Normal 8.5-10.1 [facility] Comment on above: Order Comment: Y Performed By: #### L 3300.9900, L503.6030, L506.0400, L506.1000, L3300.8000, L100.0500, L503.6550, L503.0105, L501.9520, L500.4050, L501.9985, L500.4100, L506.0250 ####[facility] [address] [place], [address] Chloride [Moles/Vol] 106 mmol/L Normal 98-107 [facility] Comment on above: Order Comment: Y Performed By: #### L 3300.9900, L503.6030, L506.0400, L506.1000, L3300.8000, L100.0500, L503.6550, L503.0105, L501.9520, L500.4050, L501.9985, L500.4100, L506.0250 ####[facility] [address] [place], [address] CO2 [Moles/Vol] 27.0 mmol/L Normal 21.0-32.0 [facility] Comment on above: Order Comment: Y Performed By: #### L 3300.9900, L503.6030, L506.0400, L506.1000, L3300.8000, L100.0500, L503.6550, L503.0105, L501.9520, L500.4050, L501.9985, L500.4100, L506.0250 ####[facility] [address] [place], [address] Creatinine [Mass/Vol] 0.93 mg/dL Normal 0.55-1.02 [facility] Comment on above: Order Comment: Y Result Comment: The validity of the calculated GFR GFRAA in patients over 70 years has not been determined. Clinical correlation is essential. Performed By: #### L 3300.9900, L503.6030, L506.0400, L506.1000, L3300.8000, L100.0500, L503.6550, L503.0105, L501.9520, L500.4050, L501.9985, L500.4100, L506.0250 ####[facility] [address] [place], [address] EST GFR - AA 81 mL/min Normal >60 [facility] Comment on above: Order Comment: Y Result Comment: Afri can Belizean GFR Calc Performed By: #### L 3300.9900, L503.6030, L506.0400, L506.1000, L3300.8000, L100.0500, L503.6550, L503.0105, L501.9520, L500.4050, L501.9985, L500.4100, L506.0250 ####[facility] [address] [place], [address] GAP 8 Normal 5-15 [facility] Comment on above: Order Comment: Y Performed By: #### L 3300.9900, L503.6030, L506.0400, L506.1000, L3300.8000, L100.0500, L503.6550, L503.0105, L501.9520, L500.4050, L501.9985, L500.4100, L506.0250 ####[facility] [address] [place], [address] GFR/1.73 sq M.predicted among non-blacks MDRD (S/P/Bld) [Vol rate/Area] 67 mL/min/{1.73_m2} Normal >60 [facility] Comment on above: Order Comment: Y Result Comment: Non- GFR Calc Performed By: #### L 3300.9900, L503.6030, L506.0400, L506.1000, L3300.8000, L100.0500, L503.6550, L503.0105, L501.9520, L500.4050, L501.9985, L500.4100, L506.0250 ####[facility] [address] [place], [phone] Globulin (S) [Mass/Vol] 4.0 g/dL Normal 2.2-4.2 [facility] Comment on above: Order Comment: Y Performed By: #### L 3300.9900, L503.6030, L506.0400, L506.1000, L3300.8000, L100.0500, L503.6550, L503.0105, L501.9520, L500.4050, L501.9985, L500.4100, L506.0250 ####[facility] [address] [place], [place], [phone] Glucose [Mass/Vol] 148 mg/dL High 74-106 [facility] Comment on above: Order Comment: Y Result Comment: Fast ing Glucose result greater than or equal to 126 mg/dL suggests DIABETES MELLITUS per A.D.A. criteria. Performed By: #### L 3300.9900, L503.6030, L506.0400, L506.1000, L3300.8000, L100.0500, L503.6550, L503.0105, L501.9520, L500.4050, L501.9985, L500.4100, L506.0250 ####[facility] [address] [place], [address] Potassium [Moles/Vol] 4.3 mmol/L Normal 3.5-5.1 [facility] Comment on above: Order Comment: Y Performed By: #### L 3300.9900, L503.6030, L506.0400, L506.1000, L3300.8000, L100.0500, L503.6550, L503.0105, L501.9520, L500.4050, L501.9985, L500.4100, L506.0250 ####[facility] [address] [place], [address] Sodium [Moles/Vol] 141 mmol/L Normal 136-145 [facility] Comment on above: Order Comment: Y Performed By: #### L 3300.9900, L503.6030, L506.0400, L506.1000, L3300.8000, L100.0500, L503.6550, L503.0105, L501.9520, L500.4050, L501.9985, L500.4100, L506.0250 ####[facility] [address] [place], [place], [phone] T PROT 7.7 g/dL Normal 6.4-8.2 [facility] Comment on above: Order Comment: Y Performed By: #### L 3300.9900, L503.6030, L506.0400, L506.1000, L3300.8000, L100.0500, L503.6550, L503.0105, L501.9520, L500.4050, L501.9985, L500.4100, L506.0250 ####[facility] [address] [place], [place], [phone] Urea nitrogen [Mass/Vol] 9 mg/dL Normal 7-18 [facility] Comment on above: Order Comment: Y Performed By: #### L 3300.9900, L503.6030, L506.0400, L506.1000, L3300.8000, L100.0500, L503.6550, L503.0105, L501.9520, L500.4050, L501.9985, L500.4100, L506.0250 ####[facility] [address] [place], [place], [phone] Ferritinon 07-01-2024 Ferritin [Mass/Vol] 34 ng/mL Normal 8-252 [facility] Comment on above: Order Comment: Y Performed By: #### L 3300.9900, L503.6030, L506.0400, L506.1000, L3300.8000, L100.0500, L503.6550, L503.0105, L501.9520, L500.4050, L501.9985, L500.4100, L506.0250 ####[facility] [address] [facility] [address] [place], [place], [phone] Folates, (Folic Acid)on 06-12 FOLATES 14.10 ng/mL Normal 3.1-55.4 [facility] Comment on above: Order Comment: Y Performed By: #### L 3300.9900, L503.6030, L506.0400, L506.1000, L3300.8000, L100.0500, L503.6550, L503.0105, L501.9520, L500.4050, L501.9985, L500.4100, L506.0250 ####[facility] [address] [place], [place], [phone] Hemoglobin A1con 07-01-2024 HbA1c (Bld) [Mass fraction] 5.4 % Normal 3.8-5.6 [facility] Comment on above: Result Comment: Norm al < 5.7 % Prediabetic 5.7 - 6.4 % Diabetic >or= 6.5 % Please note range changes. Performed By: #### L 3300.9900, L503.6030, L506.0400, L506.1000, L3300.8000, L100.0500, L503.6550, L503.0105, L501.9520, L500.4050, L501.9985, L500.4100, L506.0250 ####[facility] [address] [place], [address] Iron+Iron Binding Capacityon 07-01-2024 Iron [Mass/Vol] 53 ug/dL Normal 50-170 [facility] Comment on above: Order Comment: Y Performed By: #### L 3300.9900, L503.6030, L506.0400, L506.1000, L3300.8000, L100.0500, L503.6550, L503.0105, L501.9520, L500.4050, L501.9985, L500.4100, L506.0250 ####[facility] [address] [place], [address] IRON SATURATION 16.3 Normal 15.0-55.0 [facility] Comment on above: Order Comment: Y Performed By: #### L 3300.9900, L503.6030, L506.0400, L506.1000, L3300.8000, L100.0500, L503.6550, L503.0105, L501.9520, L500.4050, L501.9985, L500.4100, L506.0250 ####[facility] [address] [place], [place], [phone] TIBC 326 ug/dL Normal 250-450 [facility] Comment on above: Order Comment: Y Performed By: #### L 3300.9900, L503.6030, L506.0400, L506.1000, L3300.8000, L100.0500, L503.6550, L503.0105, L501.9520, L500.4050, L501.9985, L500.4100, L506.0250 ####[facility] [address] [place], [address] Lipid Profileon 07-01-2024 Cholesterol [Mass/Vol] 169 mg/dL Normal 200 [facility] Comment on above: Order Comment: Y Result Comment: <200 mg/dL Desirable 200-240 mg/dL Borderline >240 mg/dL High Risk Performed By: #### L 3300.9900, L503.6030, L506.0400, L506.1000, L3300.8000, L100.0500, L503.6550, L503.0105, L501.9520, L500.4050, L501.9985, L500.4100, L506.0250 ####[facility] [address] [place], [place], [phone] Cholesterol in HDL [Mass/Vol] 77 mg/dL Normal [facility] Comment on above: Order Comment: Y Result Comment: The drugs N-Acetylcysteine and Metamizole may falsely depress this assay. Reference Range HDL <40 mg/dL Low HDL Cholesterol HDL >or= 60 mg/dL High HDL Cholesterol Performed By: #### L 3300.9900, L503.6030, L506.0400, L506.1000, L3300.8000, L100.0500, L503.6550, L503.0105, L501.9520, L500.4050, L501.9985, L500.4100, L506.0250 ####[facility] [address] [place], [place], [phone] Cholesterol in LDL [Mass/Vol] 71 mg/dL Normal 0-130 [facility] Comment on above: Order Comment: Y Performed By: #### L 3300.9900, L503.6030, L506.0400, L506.1000, L3300.8000, L100.0500, L503.6550, L503.0105, L501.9520, L500.4050, L501.9985, L500.4100, L506.0250 ####[facility] [address] [place], [place], [phone]) Cholesterol in VLDL [Mass/Vol] 21 mg/dL Normal 5-40 [facility] Comment on above: Order Comment: Y Performed By: #### L 3300.9900, L503.6030, L506.0400, L506.1000, L3300.8000, L100.0500, L503.6550, L503.0105, L501.9520, L500.4050, L501.9985, L500.4100, L506.0250 ####[facility] [address] [place], [address] Triglyceride [Mass/Vol] 105 mg/dL Normal [facility] Comment on above: Order Comment: Y Result Comment: The drugs N-Acetylcysteine and Metamizole may falsely depress this assay. Serum Triglycerides Reference Interval Normal <150 mg/dL Borderline high 150 - 199 mg/dL High 200 - 499 mg/dL Very High > or = 500 mg/dL Performed By: #### L 3300.9900, L503.6030, L506.0400, L506.1000, L3300.8000, L100.0500, L503.6550, L503.0105, L501.9520, L500.4050, L501.9985, L500.4100, L506.0250 ####[facility] [address] [place], [address] T4 Free Directon 07-01-2024 T4 FREE DIRECT 0.87 ng/dL Normal 0.76-1.46 [facility] Comment on above: Order Comment: Y Performed By: #### L 3300.9900, L503.6030, L506.0400, L506.1000, L3300.8000, L100.0500, L503.6550, L503.0105, L501.9520, L500.4050, L501.9985, L500.4100, L506.0250 ####[facility] [address] [place], [address] Thyroid Stim Hormone (TSH)on 07-01-2024 TSH 0.846 uIU/mL Normal 0.358-3.74 0 [facility] Comment on above: Order Comment: Y Performed By: #### L 3300.9900, L503.6030, L506.0400, L506.1000, L3300.8000, L100.0500, L503.6550, L503.0105, L501.9520, L500.4050, L501.9985, L500.4100, L506.0250 ####[facility] [address] [place], [place], [phone] Vitamin B12on 07-01-2024 Cobalamin (Vitamin B12) [Mass/Vol] 408 pg/mL Normal 211-911 [facility] Comment on above: Performed By: #### L 3300.9900, L503.6030, L506.0400, L506.1000, L3300.8000, L100.0500, L503.6550, L503.0105, L501.9520, L500.4050, L501.9985, L500.4100, L506.0250 ####[facility] [address] [place], [place], [phone] Vitamin D,25 Hydroxyon 07-01 Vitamin D 25-OH 29.0 ng/mL Normal [facility] Comment on above: Result Comment: Araceli min D 25(OH) Status Range Deficiency <20 ng/mL (50nmol/L) Insufficiency 20 - 30 ng/mL (50 - 75 nmol/L) Sufficiency 30 - 100 ng/mL (75 - 250 nmol/L) Toxicity >100 ng/mL (>250 nmol/L) Performed By: #### L 3300.9900, L503.6030, L506.0400, L506.1000, L3300.8000, L100.0500, L503.6550, L503.0105, L501.9520, L500.4050, L501.9985, L500.4100, L506.0250 ####[facility] [address] [place], [address] Chest without Contraston Chest without Contrast [facility] Imaging Services [address] [place] [address] Chest without Contrast MR#: [id number] Acct: [id number] Name: AMANDA GRUBBS Rep #: [id number] : 1970 F 54 From: Kervin marvin MD PCP: Dr. Franky Pearson, DO Status: REG CLI Study: Chest without Contrast Date of Exam: 06/30/24 Exam# [id number] Ordering Dr: Rolan Valdes NP PARTS PERSON-C [id number] STUDY: CT CHEST WITHOUT CONTRAST REASON FOR [...] Signed: Kervin Naqvi MD at 15:48 EST , CC: ANA Valdes; Dr. Franky Pearson, Power Lineworker: Signed Normal [facility] Office Visit Reporton 2024 Office Visit Report [facility] [place] [address] OFFICE VISIT Date of Service: 06/27/24 MR#: [id number] Acct: [id number] Patient: AMANDA GRUBBS Rep #: [id number] : 1970 Provider: BLU Clinton Age/Sex: 54/F Location: [facility] Status: Signed Employer Purchased Covid Test Note: Patient here today for Covid Testing, requested by their Employer. Assessment and Plan Assessment and Plan Orders: Orders POC Cepheid Covid, FluAB, RSV Today Plan Details Goals Barriers: Goals Decrease pain Decrease spasm Decrease HAs 06/27/24 1023 Date Hans HURT Cosignshelley Signature: Date (if applicable) CC: Normal [facility] Urgent Care Visit Reporton 0 06-27-2024 Urgent Care Visit Report [facility] [address], [address] [place] [address] OFFICE VISIT Date of Service: 06/27/24 MR#: [id number] Acct: [id number] Name: AMANDA GRUBBS Rep #: [id number] : 1970 Provider: BLU Clinton Age/Sex: 54/F Location: [facility] [place] Status: Signed Intake Vital Signs 06/13/24 12:45 06/27/24 10:16 Height 5 ft 3 in BP 114/70 Blood Pressure Location Lt brachial Position Sitting Respiration 17 Pulse 88 Pulse Source NIBP Temp 97.8 F Temp Source Oral Pulse Oximetry (%) 98 Oxygen Delivery Method room air Intake Visit Reasons: COUGH, HEADACHE Chief Complaint: cough, [place], ST, chest congest, BA, chills Manager Demand Required: No Is patient in pain?: No Allergies No Known Allergies Allergy (Verified 06/27/24 10:16) Is last menstrual period known: No Post menopausal: Yes Patient : No Have you fallen in the past year?: No Nurse's Note: cough, [place]UR[place], ST, chest congest, BA, chills x 3 days PFSH Medical History Anginal pain Somatic dysfunction [...] caffeine: Yes HPI HPI Chief Complaint: cough, [place]UR[place], ST, chest congest, BA, chills Details: AMANDA [...] Exam Const General: cooperative and well developed HENAL Head: normal to inspection and atraumatic Ears: [...] Hans HURT (more content not included)... Normal [facility] CREATININE FINGERSTICKon CREATININE WB < 1.0 Normal 0.55-1.02 [facility] Comment on above: Performed By: #### L 9100.0200 #### [facility] [address] [place], [address] EGFR WB > 60.0000 Normal >60 [facility] Comment on above: Performed By: #### L 9100.0200 #### [facility] [address] [place], [address] Coronary Angiography CTon Coronary Angiography CT [facility] Imaging Services [address] [place] [address] 06/13/24 1556 MR#: [id number] Acct: [id number] Name: AMANDA GRUBBS Rep #: [id number] : 1970 53 From: Allan Coleman MD PCP: Dr. Franky Pearson, DO Status:REG CLI Y Location: CT CCTA [...] plaquing present. [] 06/13/24 1558 Date Allan Barney Signature (if applicable): Date CC: Dr. Allan Coleman MD; Dr. Franky Pearson DO; Dr. Franky Hollingsworth MD Signed Normal [facility] Limited Chest CT Cardiac Onl yon 06-13-[address] Cardiac Only [facility] Imaging Services [address] [place] [id number] Cardiac Only MR#: [id number] Acct: [id number] Name: AMANDA GRUBBS Rep #: [id number] : 1970 F 53 From: Kervin marvin MD PCP: Dr. Franky Pearson DO Status: [facility] Study: Limited Chest CT Cardiac Only Date of Exam: Exam# [id number] Ordering Dr: Franky Hollingsworth MD [id number] STUDY: CT CHEST WITH CONTRAST REASON FOR [...] Signed: Kervin Naqvi MD at 11:17 EST Reading Location ID and State: [facility] / [place] , Service support , CC: Dr. Franky Pearson DO; Dr. Franky Hollingsworth MD Power Lineworker: Signed Normal [facility] Oncology Visit Reporton Oncology Visit Report [facility] [address] [place] [address] OFFICE VISIT Date of Service: 05/13/24 1633 MR#: [id number] Acct: [id number] Name: AMANDA GRUBBS Rep #: [id number] : 1970 From: Santiago Og MD Age/Sex: 53/F Location: [facility] Status: Signed HPI Subjective Date of Service 05/13/24 Chief Complaint F/u for anemia. History of Present Illness 53y.o.woman with history of Gastric bypass in 2018 was found to have Iron deficiency anemia, started on oral Iron but has not improved so referred for further evaluation. Denied weight loss, fever, gets night sweats. [facility] Medical History Anginal pain Somatic dysfunction of [...] 16:36) Medications ???Medication ???Instructions ???Recorded ???Confirmed ???Type peayokctlf-hgjexchkypcdt-yn ffeine 1 cap PO Q8H PRN 01/16/23 [...] Plan: To continue observation.Do supplements as needed. 05/13/241707 Date (more content not included)... Normal [facility] L501.5101on 05-08-2024 GGTP 66 IU/L Abnormal 0-60 [facility] Comment on above: Order Comment: ADD T O BLOOD IN LAB. THANK YOU!! Result Comment: Perf ormed at: CB - [facility] [address] [id number] Rail Crew Member: Robson Cedeno PhD, Phone: [phone] Performed By: #### L 501.5105 #### [facility] [address] [place], [address] CBC W/Diff, Automatedon 11-2 Absolute Lymph 2.06 X10 3/uL Normal 0.83-4.51 [facility] Comment on above: Performed By: #### L 9100.0200 #### [facility] [address] [place], [address] Absolute Neut 3.7 X10 3/uL Normal 2.0-7.7 [facility] Comment on above: Performed By: #### L 9100.0200 #### [facility] [address] [place], [address] Basophils/100 WBC (Bld) 0.6 % Normal 0-1 [facility] Comment on above: Performed By: #### L 9100.0200 #### [facility] [address] [place], [address] Eosinophils/100 WBC (Bld) 1.1 % Normal 0-5 [facility] Comment on above: Performed By: #### L 9100.0200 #### [facility] [address] [place], [address] Erythrocyte distribution width (RBC) [Ratio] 12.4 % Normal 11.6-14.6 [facility] Comment on above: Performed By: #### L 9100.0200 #### [facility] [address] [place], [address] Hematocrit (Bld) [Volume fraction] 37.6 % Normal 37-47 [facility] Comment on above: Performed By: #### L 9100.0200 #### [facility] [address] [place], [address] Hemoglobin (Bld) [Mass/Vol] 12.4 g/dL Normal 12.0-15.0 [facility] Comment on above: Performed By: #### L 9100.0200 #### [facility] [address] [place], [address] IG% 0.200 Normal 0.0-0.9 [facility] Comment on above: Result Comment: IG% - Immature Granulocytes (promyelocytes, myelocytes and metamyelocytes) > 1% indicates that a LEFT SHIFT is Present. Performed By: #### L 9100.0200 #### [facility] [address] [place], [address] Lymphocytes/100 WBC (Bld) 32.6 % Normal 19-41 [facility] Comment on above: Performed By: #### L 9100.0200 #### [facility] [address] [place], [address] MCH (RBC) [Entitic mass] 30.7 pg Normal 27.0-32.0 [facility] Comment on above: Performed By: #### L 9100.0200 #### [facility] [address] [place], [address] MCHC (RBC) [Mass/Vol] 33.0 g/dL Normal 32-36 [facility] Comment on above: Performed By: #### L 9100.0200 #### [facility] [address] [place], [address] MCV (RBC) [Entitic vol] 93.1 fL Normal 81-99 [facility] Comment on above: Performed By: #### L 9100.0200 #### [facility] [address] [place], [address] Monocytes/100 WBC (Bld) 7.3 % Normal 0-10 [facility] Comment on above: Performed By: #### L 9100.0200 #### [facility] [address] [place], [address] Neutrophils/100 WBC (Bld) 58.2 % Normal 47-70 [facility] Comment on above: Performed By: #### L 9099.0200 #### [facility] [address] [place], [address] Nucleated RBC (Bld) [#/Vol] 0 10*3/uL Normal 0-5 [facility] Comment on above: Performed By: #### L 9099.0200 #### [facility] [address] [place], [address] Platelet mean volume (Bld) [Entitic vol] 9.1 fL Normal 6.2-12.0 [facility] Comment on above: Performed By: #### L 00.0200 #### [facility] [address] [place], [address] Platelets (Bld) [#/Vol] 305 10*3/uL Normal 150-450 [facility] Comment on above: Performed By: #### L 00.0200 #### [facility] [address] [place], [address] RBC (Bld) [#/Vol] 4.04 10*6/uL Low 4.2-5.4 [facility] Comment on above: Performed By: #### L 9100.0200 #### [facility] [address] [place], [address] RDW SD 42.5 fl Normal 35.1-43.9 [facility] Comment on above: Performed By: #### L 00.0200 #### [facility] [address] [place], [address] WBC (Bld) [#/Vol] 6.3 10*3/uL Normal 4.4-11.0 [facility] Comment on above: Performed By: #### L 9100.0200 #### [facility] [address] [place], [address] CRPon 05-06-2024 C-REACTIVE PROT < 2.90 Normal 0.0-3.0 [facility] Comment on above: Order Comment: UNKNO WN1N Result Comment: C-Re active Protein (CRP) provides useful information for the diagnosis, therapy and monitoring of inflammatory processes and associated diseases. For the evaluation of Relative Risk for Cardiovascular Disease, a High Sensitivity CRP (HSCRP) should be ordered. Performed By: #### L 9100.0200 #### [facility] [address] [place], [address] Comprehensive Metabolic Prof ilon 05-06-2024 Albumin [Mass/Vol] 4.1 g/dL Normal 3.2-5.0 [facility] Comment on above: Order Comment: UNKNO WN1N Performed By: #### L 9100.0200 #### [facility] [address] [place], [address] Albumin/Globulin [Mass ratio] 1.2 {ratio} Normal 0.9-2.4 [facility] Comment on above: Order Comment: UNKNO WN1N Performed By: #### L 9100.0200 #### [facility] [address] [place], [address] ALK P 88 U/L Normal 45-117 [facility] Comment on above: Order Comment: UNKNO WN1N Performed By: #### L 9100.0200 #### [facility] [address] [place], [address] ALT [Catalytic activity/Vol] 89 U/L High 13-56 [facility] Comment on above: Order Comment: UNKNO WN1N Performed By: #### L 9100.0200 #### [facility] [address] [place], [address] AST [Catalytic activity/Vol] 46 U/L High 15-37 [facility] Comment on above: Order Comment: UNKNO WN1N Performed By: #### L 9100.0200 #### [facility] [address] [place], [address] Bilirubin [Mass/Vol] 0.20 mg/dL Normal 0.20-1.00 [facility] Comment on above: Order Comment: UNKNO WN1N Result Comment: For patients on eltrombopag therapy, use of Dimension [place] TBIL is not recommended. Performed By: #### L 00.0200 #### [facility] [address] [place], [address] BUN/CRE 7.7 RATIO Low 10-20 [facility] Comment on above: Order Comment: UNKNO WN1N Performed By: #### L 00.0200 #### [facility] [address] [place], [address] CA,Total 9.6 mg/dL Normal 8.5-10.1 [facility] Comment on above: Order Comment: UNKNO WN1N Performed By: #### L 9100.0200 #### [facility] [address] [place], [address] Chloride [Moles/Vol] 107 mmol/L Normal 98-107 [facility] Comment on above: Order Comment: UNKNO WN1N Performed By: #### L 9100.0200 #### [facility] [address] [place], [address] CO2 [Moles/Vol] 26.0 mmol/L Normal 21.0-32.0 [facility] Comment on above: Order Comment: UNKNO WN1N Performed By: #### L 9100.0200 #### [facility] [address] [place], [address] Creatinine [Mass/Vol] 0.78 mg/dL Normal 0.55-1.02 [facility] Comment on above: Order Comment: UNKNO WN1N Result Comment: The validity of the calculated GFR GFRAA in patients over 70 years has not been determined. Clinical correlation is essential. Performed By: #### L 9100.0200 #### [facility] [address] [place], [address] EST GFR - AA 99 mL/min Normal >60 [facility] Comment on above: Order Comment: UNKNO WN1N Result Comment: Afri can [place] GFR Calc Performed By: #### L 91.0200 #### [facility] [address] [place], [address] GAP 7 Normal 5-15 [facility] Comment on above: Order Comment: UNKNO WN1N Performed By: #### L 91.0200 #### [facility] [address] [place], [address] GFR/1.73 sq M.predicted among non-blacks MDRD (S/P/Bld) [Vol rate/Area] 82 mL/min/{1.73_m2} Normal >60 [facility] Comment on above: Order Comment: UNKNO WN1N Result Comment: Non- GFR Calc Performed By: #### L 9100.0200 #### [facility] [address] [place], [address] Globulin (S) [Mass/Vol] 3.5 g/dL Normal 2.2-4.2 [facility] Comment on above: Order Comment: UNKNO WN1N Performed By: #### L 9100.0200 #### [facility] [address] [place], [address] Glucose [Mass/Vol] 75 mg/dL Normal 74-106 [facility] Comment on above: Order Comment: UNKNO WN1N Performed By: #### L 91.0200 #### [facility] [address] [place], [address] Potassium [Moles/Vol] 4.3 mmol/L Normal 3.5-5.1 [facility] Comment on above: Order Comment: UNKNO WN1N Performed By: #### L 9100.0200 #### [facility] [address] [place], [address] Sodium [Moles/Vol] 140 mmol/L Normal 136-145 [facility] Comment on above: Order Comment: UNKNO WN1N Performed By: #### L 9100.0200 #### [facility] [address] [place], [address] T PROT 7.6 g/dL Normal 6.4-8.2 [facility] Comment on above: Order Comment: UNKNO WN1N Performed By: #### L 9100.0200 #### [facility] [address] [place], [address] Urea nitrogen [Mass/Vol] 6 mg/dL Low 7-18 [facility] Comment on above: Order Comment: UNKNO WN1N Performed By: #### L 9100.0200 #### [facility] [address] [place], [address] Erythrocyte Sed Rateon 05-06 SED RATE 8 mm/hr Normal 0-30 [facility] Comment on above: Performed By: #### L 9100.0200 #### [facility] [address] [place], [address] Ferritinon 05-06-2024 Ferritin [Mass/Vol] 21 ng/mL Normal 8-252 [facility] Comment on above: Order Comment: UNKNO WN1N Performed By: #### L 9100.0200 #### [facility] [address] [place], [address] Folates, (Folic Acid)on 04-12 FOLATES 19.70 ng/mL Normal 3.1-55.4 [facility] Comment on above: Order Comment: ADD T O BLOOD IN LAB. THANK YOU!! Performed By: #### L 501.5101 #### [facility] [address] [place], [address] Iron+Iron Binding Capacityon 05-06-2024 Iron [Mass/Vol] 73 ug/dL Normal 50-170 [facility] Comment on above: Order Comment: UNKNO WN1N Performed By: #### L 9100.0200 #### [facility] [address] [place], [address] IRON SATURATION 19.2 Normal 15.0-55.0 [facility] Comment on above: Order Comment: UNKNO WN1N Performed By: #### L 9100.0200 #### [facility] [address] [place], [address] TIBC 380 ug/dL Normal 250-450 [facility] Comment on above: Order Comment: UNKNO WN1N Performed By: #### L 9100.0200 #### [facility] [address] [place], [address] LDHon 05-06-2024 LDH 211 U/L Normal 84-246 [facility] Comment on above: Order Comment: ADD T O BLOOD IN LAB. THANK YOU!! Performed By: #### L 501.5101 #### [facility] [address] [place], [address] Magnesiumon 05-06-2024 Magnesium [Mass/Vol] 2.2 mg/dL Normal 1.6-2.6 [facility] Comment on above: Order Comment: UNKNO WN1N Performed By: #### L 9100.0200 #### [facility] [address] [place], [address] Oncology Visit Reporton 04-12 Oncology Visit Report [facility] [address] [place] [address] OFFICE VISIT Date of Service: 05/06/24 1045 MR#: [id number] Acct: [id number] Name: AMANDA GRUBBS Rep #: [id number] : 1970 From: Santiago Og MD Age/Sex: 53/F Location: [facility] [place] Status: Signed HPI Subjective Date of Service 05/06/24 Chief Complaint Referred for anemia. History of Present Illness 53y.o.woman with history of Gastric bypass in 2018 was found to have Iron deficiency anemia, started on oral Iron but has not improved so referred for further evaluation. Denies weight loss, fever, gets night sweats. PFSH Medical History Anginal pain Somatic dysfunction [...] 10:50) Medications ???Medication ???Instructions ???Recorded ???Confirmed ???Type utpgojxnjs-jimxsnizxgnpi-lp ffeine 1 cap PO Q8H PRN 01/16/23 [...] 05/06/24 His (more content not included)... Normal [facility] Phosphoruson 05-06-2024 Phosphate [Mass/Vol] 4.5 mg/dL Normal 2.5-4.9 [facility] Comment on above: Order Comment: UNKNO WN1N Performed By: #### L 9100.0200 #### [facility] [address] [place], [address] Retic Panelon 05-06-2024 IM RET FRACTION 14.20 Normal 3.00-15.90 [facility] Comment on above: Performed By: #### L 9100.0200 #### [facility] [address] [place], [address] RET-HE 34.6 pg Normal 30-35 [facility] Comment on above: Performed By: #### L 9100.0200 #### [facility] [address] [place], [address] Retic Count 1.33 Normal 0.5-1.5 [facility] Comment on above: Performed By: #### L 9100.0200 #### [facility] [address] [place], [address] Vitamin B12on 05-06-2024 Cobalamin (Vitamin B12) [Mass/Vol] 720 pg/mL Normal 211-911 [facility] Comment on above: Performed By: #### L 9100.0200 #### [facility] [address] [place], [address] 12 Lead EKG performed by [facility] on 05-05-2024 12 Lead EKG performed by [facility] [address] [place] [address] 12 Lead EKG performed by [facility] 05/05/24 0820 MR#: [id number] Acct: [id number] Name: AMANDA GRUBBS Rep #: [id number] : 1970 53 From: Franky Hollingsworth MD Attending Dr: Dr. Franky Hollingsworth MD Status: DE P AMB Ordering Dr: Franky Hollingsworth MD Date: 05/05/24 Location: [facility] Sex: F C Admitted: BMS/12 Lead EKG performed by [facility] ECG Report Interpretation S inus Rhythm WITHIN NORMAL LIMITSElectronically signed on 05/05/2024 at 12:[address] Franky Hollingsworth [employer] Version 8610 05/05/24 1217 Date Franky Hollingsworth MD CC: Dr. Franky Pearson DO Date Dictated: 05/05/24819 Date Transcribed: 05/05/24819 Power Lineworker: Signed Normal [facility] Cardiology Visit Reporton Cardiology Visit Report [facility] [address] [place] [address] OFFICE VISIT Date of Service: 05/05/24 MR#: [id number] Acct: [id number] Name: AMANDA GRUBBS Rep #: [id number] : 1970 Provider: Dr. Franky clark MD Age/Sex: 53/F Location: [facility] Status: Signed HPI HPI History [...] air Intake Visit Reasons: FAMILY HX OF ID (LILI) Manager Demand Required: No Accompanied by: Is patient in pain?: No Allergies No Known Allergies Allergy (Verified 05/05/24 11:34) Medications ???Medication ???Instructions ???Recorded ???Confirmed ???Type kqxlcpzuvb-mbwgnuvdfpomb-dr ffeine 1 cap PO Q8H PRN 01/16/23 [...] you fallen in the past year?: [facility] History Anginal pain Somatic dysfunction of lower extremity Psoriatic arthritis Prediabetes Family history of ischemic heart disease Anxiety Secondary insomnia Iron deficiency B12 deficiency Major depression in remission Hypothyroid Anemia Acute pharyngitis, unspecified Aphthous ulcer of mouth delivery delivered Surgical History History of endometrial ablation History of colonoscopy H (more content not included)... Normal [facility] Office Visit Reporton 2023 Office Visit Report [facility] [address] [place] [address] OFFICE VISIT Date of Service: 04/17/24 MR#: [id number] Acct: [id number] Patient: AMANDA GRUBBS Rep #: [id number] : 1970 Provider: BLU [place] Age/Sex: 53/F Location: [facility] Status: Signed Employer Purchased Covid Test Note: Patient here today for Covid Testing, requested by their Employer. Assessment and Plan Plan Details Goals Barriers: Goals Decrease pain Decrease spasm Decrease HAs 04/17/24 1623 Date Hans HURT Cosigner Signature: Date (if applicable) CC: Normal [facility] Office Visit Report [facility] [address] [place] [address] OFFICE VISIT Date of Service: 04/17/24 MR#: [id number] Acct: [id number] Patient: AMANDA GRUBBS Rep #: [id number] : 1970 Provider: BLU [place] Age/Sex: 53/F Location: [facility] Status: Signed Employer Purchased Covid Test Note: [...] spasm Decrease HAs 04/17/24 1454 Date Hans Lemaigner Signature: Date (if applicable) CC: Normal [facility] Urgent Care Visit Reporton 1 06-17-2023 Urgent Care Visit Report [facility] [address] , [address] [place] [address] OFFICE VISIT Date of Service: 04/17/24 MR#: [id number] Acct: [id number] Name: AMANDA GRUBBS Rep #: [id number] : 1970 Provider: BLU [place] Age/Sex: 53/F Location: [facility] Status: Signed Intake Vital Signs 12/12/23 14:29 04/17/24 13:37 Height 5 ft 3 in BP 122/84 H Blood Pressure Location Lt brachial Position Sitting Respiration 15 Pulse 81 Pulse Source NIBP Temp 98.2 F Temp Source Oral Pulse Oximetry (%) 98 Oxygen Delivery Method room air Intake Visit Reasons: FEVER, FATIGUE, SORE THROAT Chief Complaint: fever, fatigue, PND, BA , MURDOCK Manager Demand Required: No Is patient in pain?: Yes Allergies No Known Allergies Allergy (Verified 04/17/24 13:38) Is last menstrual period known: No Post menopausal: No Patient : No Have you fallen in the past year?: No Nurse's Note: fever, fatigue, PND, BA , MURDOCK x 4 days without resolve. [facility] Medical History (Updated 04/15/24 @ 10:56 by [...] Exam Const General: cooperative and healthy appearing HENMT Head: normal to inspection Ears: hearing [...] Signature: Date (more content not included)... Normal [facility] L5000.0012on 03-29-2024 Vitamin B12 Normal [facility] Comment on above: Result Comment: TEST RESULTS LIMITS Vitamin B12 261 pg/mL 232-1245 [facility] ORIGINAL REPORT ON FILE IN LAB CONTAINS ADDITIONAL TEST SITE INFORMATION. Performed By: #### L 506.0400, L5000.0012, L503.6550, L501.9520 ####[facility] [address] [place], [address] Ferritinon 03-26-2024 Ferritin [Mass/Vol] 19 ng/mL Normal [facility] Comment on above: Performed By: #### L 506.0400, L5000.0012, L503.6550, L501.9520 ####[facility] [address] [place], [address] T4 Free Directon 03-26-2024 T4 FREE DIRECT 0.70 ng/dL Low 0.76-1.46 [facility] Comment on above: Performed By: #### L 506.0400, L5000.0012, L503.6550, L501.9520 ####[facility] [address] [place], [address] Thyroid Stim Hormone (TSH)on 03-26-2024 TSH 1.370 uIU/mL Normal 0.358-3.74 0 [facility] Comment on above: Performed By: #### L 506.0400, L5000.0012, L503.6550, L501.9520 ####[facility] [address] [place], [address] Laboratory - Chemistry and C hemistry - challengeOrdered By: Franky Pearson on 09-12-2023 Cobalamin (Vitamin B12) [Mass/Vol] 364 pg/mL 211-911 [facility] Ferritin [Mass/Vol] 26 ng/mL [facility] Serum or plasma thiamine kayla surement (mass/volume)Ordered By: Franky Pearson on 09-12-2023 Thiamine [Mass/Vol] 72.8 nmol/L 66.5-200.0 [facility] Comment on above: Performed at: [facility] [address] [id number] Director: James Herrera MD, Phone: [phone] Basophil percentageOrdered B y: Franky Pearson on 06-22-2023 Bilirubin [Mass/Vol] 0.40 mg/dL 0.20-1.[address] [facility] Comment on above: For patients on eltr ombopag therapy, use of Dimension [place] TBIL is not recommended. Chloride [Moles/Vol] 108 mmol/L 98-107 [facility] Cholesterol [Mass/Vol] 176 mg/dL <200 [facility] Comment on above: <200 mg/dL Desirable 200-240 mg/dL Borderline >240 mg/dL High Risk Glucose [Mass/Vol] 82 mg/dL 74-106 [facility] Potassium [Moles/Vol] 4.5 mmol/L 3.5-5.1 [facility] Protein [Mass/Vol] 7.6 g/dL 6.4-8.2 [facility] Sodium [Moles/Vol] 141 mmol/L 136-145 [facility] Triglyceride [Mass/Vol] 58 mg/dL <199 [facility] Comment on above: The drugs N-Acetylcy steine and Metamizole may falsely depress this assay.Serum Triglycerides Reference Interval Normal <150 mg/dL Borderline high 150 - 199 mg/dL High 200 - 499 mg/dL Very High > or = 500 mg/dL WBC (Bld) [#/Vol] 5.4 10*3/uL 4.4-11.0 [facility] Blood erythrocytes count (nu mber/volume)Ordered By: Franky Pearson on 06-22-2023 RBC (Bld) [#/Vol] 4.25 10*6/uL 4.2-5.4 [facility] Blood hemoglobin measurement (mass/volume)Ordered By: Franky Pearson on 06-22-2023 Hemoglobin (Bld) [Mass/Vol] 12.7 g/dL 12.0-15.0 [facility] Blood platelet mean volumeOr dered By: Franky Pearson on 06-22-2023 Platelet mean volume (Bld) [Entitic vol] 9.3 fL 6.2-12.0 [facility] Determination of erythrocyte mean corpuscular volume (MCV)Ordered By: Franky Pearson on 06-22-2023 MCV (RBC) [Entitic vol] 95.1 fL 81-99 [facility] Folic acid serumOrdered By: Franky eParson on 06-22-2023 Folate [Mass/Vol] 7.40 ng/mL 3.1-55.4 [facility] Hematocrit Auto (Bld) [Volum e fraction]Ordered By: Franky Pearson on 06-22-2023 Hematocrit (Bld) [Volume fraction] 40.4 % 37-47 [facility] Laboratory - Chemistry and C hemistry - challengeOrdered By: Franky Pearson on 06-22-2023 ALP [Catalytic activity/Vol] 84 U/L 45-117 [facility] ALT [Catalytic activity/Vol] 24 U/L 13-56 [facility] CO2 [Moles/Vol] 29.0 mmol/L 21.0-32.0 [facility] Cobalamin (Vitamin B12) [Mass/Vol] 219 pg/mL 211-911 [facility] Globulin (S) [Mass/Vol] 3.8 g/dL 2.2-4.2 [facility] Urea nitrogen/Creatinine [Mass ratio] 13.4 mg/mg 10-20 [facility] Laboratory - Hematology and Cell countsOrdered By: Franky Pearson on 06-22-2023 Erythrocyte distribution width (RBC) [Entitic vol] 44.1 fL 35.1-43.9 [facility] Erythrocyte distribution width (RBC) [Ratio] 12.7 % 11.6-14.6 [facility] MCH (RBC) [Entitic mass] 29.9 pg 27.0-32.0 [facility] MCHC Auto (RBC) [Mass/Vol]Or dered By: Franky Pearson on 06-22-2023 MCHC (RBC) [Mass/Vol] 31.4 g/dL 32-36 [facility] No Panel InformationOrdered By: Franky Pearson on 06-22-2023 Estimated GFR (MDRD) Amer 78 mL/min >60 [facility] Comment on above: GFR Calc Estimated GFR (MDRD) Non-Af Amer 64 mL/min >60 [facility] Comment on above: Non- GFR Calc Thyroid Stimulating Hormone (TSH) 1.00 uIU/mL 0.358-3.74 [facility] Vitamin D 25-Hydroxy 54.4 ng/mL [facility] Comment on above: Vitamin D 25(OH) Sta tus Range Deficiency <20 ng/mL (50nmol/L) Insufficiency 20 - 30 ng/mL (50 - 75 nmol/L) Sufficiency 30 - 100 ng/mL (75 - 250 nmol/L) Toxicity >100 ng/mL (>250 nmol/L) Platelets bldOrdered By: Carmen flores Lili on 06-22-2023 Platelets (Bld) [#/Vol] 312 10*3/uL 150-450 [facility] Serum or plasma albumin sharifa urement (mass/volume)Ordered By: Franky Pearson on 06-22-2023 Albumin [Mass/Vol] 3.8 g/dL 3.2-5.0 [facility] Serum or plasma albumin/glob ulin mass ratioOrdered By: Franky Pearson on 06-22-2023 Albumin/Globulin [Mass ratio] 1.0 {ratio} 0.9-2.4 [facility] Serum or plasma calcium sharifa urement (mass/volume)Ordered By: Franky Pearson on 06-22-2023 Calcium [Mass/Vol] 9.5 mg/dL 8.5-10.1 [facility] Serum or plasma cholesterol in HDL measurement (mass/volume)Ordered By: Franky Pearson on 06-22-2023 Cholesterol in HDL [Mass/Vol] 76 mg/dL >40 [facility] Comment on above: The drugs N-Acetylcy steine and Metamizole may falsely depress this assay. Reference Range HDL <40 mg/dL Low HDL Cholesterol HDL >or= 60 mg/dL High HDL Cholesterol Serum or plasma cholesterol in VLDL measurement (mass/volume)Ordered By: Franky Pearson on 06-22-2023 Cholesterol in VLDL [Mass/Vol] 12 mg/dL 5-40 [facility] Serum or plasma creatinine m easurement (mass/volume)Ordered By: Franky Pearson on 06-22-2023 Creatinine [Mass/Vol] 0.97 mg/dL 0.55-1.02 [facility] Comment on above: The validity of the calculated GFR & GFRAA in patients over 70 years has not been determined. Clinical correlation is essential. Serum or plasma ferritin kayla surement (mass/volume)Ordered By: Franky Pearson on 06-22-2023 Ferritin [Mass/Vol] 18 ng/mL 8-252 [facility] Serum or plasma low density lipoprotein (LDL) cholesterol measurement (mass/volume)Ordered By: Franky Pearson on 06-22-2023 Cholesterol in LDL [Mass/Vol] 88 mg/dL 0-130 [facility] Serum or plasma thiamine kayla surement (mass/volume)Ordered By: Franky Pearson on 06-22-2023 Thiamine [Mass/Vol] 157.3 nmol/L 66.5-200.0 [facility] Serum or plasma urea nitroge n measurement (mass/volume)Ordered By: Franky Pearson on 06-22-2023 Urea nitrogen [Mass/Vol] 13 mg/dL 7-18 [facility] Serum or plasma zinc measure ment (mass/volume)Ordered By: Franky Pearson on 06-22-2023 Zinc [Mass/Vol] 84 ug/dL 44-115 [facility] Comment on above: Detection Limit = 5P erformed at: [facility] [address] [id number] Director: James Herrera MD, Phone: [phone] Thin prep Papanicolaou smear with manual screeningOrdered By: Franky Pearson on 06-22-2023 Thin prep Papanicolaou smear with manual screening 17 U/L 15-37 [facility] Thin prep Papanicolaou smear with manual screening 4 5-15 [facility] Whole blood hemoglobin A1c/t otal hemoglobin ratio (mass fraction)Ordered By: Franky Pearson on 06-22-2023 HbA1c (Bld) [Mass fraction] 5.4 % 3.8-5.6 [facility] Comment on above: Normal < 5.7 % Predi abetic 5.7 - 6.4 % Diabetic >or= 6.5 % Please note range changes. Laboratory - Microbiology an d Antimicrobial susceptibilityon 05-13-2023 SARS-CoV-2 (COVID-19) RNA SANTINO+probe Ql (Unsp spec) Not detected [facility] No Panel Informationon 05-13 POC Nasal Swab Influenza A,B Not detected [facility] POC Nasal Swab RSV Not detected [facility] 36on 01-16-2023 36 Name of Caller: Ayesha ríos Contact Reason for Appointment: Pt needs to cancel upcoming appt and the pt sill call back to resx. Please advise Office Name: [facility] Medication Refills need, if any: NA Medication Name: NA Normal [facility] 36on 11-06-2022 36 Please contact the p t regarding the dose of ozempic. 1 mg was prescibed on 08/18/2022. The request for 2 mg does not match the prescription. Please let me know. Thank you [facility] 36on 10-26-2022 36 Requested Prescripti ons Pending Prescriptions Disp Refills Semaglutide, 2 MG/DOSE, (Ozempic, 2 MG/DOSE,) 8 MG/3ML solution pen-injector 12 mL 0 Sig: Inject 2 mg under the skin 1 (one) time per week. Last seen on 08-18-22 by NK Next appt on 12/15/[address] [facility] B1WBon 09-13-2022 Vitamin B1 (TDP), Whole Blood 92.0 nmol/L Normal 84.3-213.3 [facility] ([place]) Comment on above: Result Comment: Disr egard reference range. Test performed at [facility]. Reference interval: 70-180 nmol/L This assay measures the concentration of thiamine diphosphate (TDP), the primary active form of vitamin B1. Approximately 90 percent of vitamin B1 present in the whole blood is TDP. Thiamine and thiamine monophosphate, which compromise the remaining 10 present are not measured. This test was developed and its performance characteristics determine by [facility] [place]. It has not been cleared or approved by the [place] Food and Drug administration. This test was performed in a CLIA certified laboratory and is intended for clinical purposes. Performed By: [facility] [address] [place] [address] Rail Crew Member: Kenny Nunes III, M.D. CLIA#: [id number] Performed By: #### A HUMBERTO CONTEH #### [address] [address] ZINCon 09-04-2022 Zinc (s) 65 UG/DL Normal 60-120 [facility] ([place]) Comment on above: Result Comment: This test was developed and its performance characteristics determined by [facility]'s Noel Najera [facility] [place] ([facility]). It has not been cleared or approved by the FDA. [facility] is regulated under CLIA as qualified to perform high-complexity testing. This test is used for clinical purposes. It should not be regarded as investigational or for research. Performed By: [facility] [address] [place] [address] Rail [employer] Member: Pily Tapia III#: [id number] Performed By: #### A HUMBERTO CONTEH #### [address] [address] .Auto Diffon 09-02-2022 Basophil, Absolute 0.0 10 3/mcL Normal 0.0-0.2 [facility] ([place]) Comment on above: Performed By: #### H CV1 #### [place] [address] #### CBC, ADIFF, CK, ANEU, CMP, A1C, LIPID, VIDH, MG, TSH, GFR, B1WB, ZINC #### [address] [address] Basophils/100 WBC (Bld) 0.5 % Normal 0.0-2.5 [facility] ([place]) Comment on above: Performed By: #### H CV1 #### [address] [address] #### CBC, ADIFF, CK, ANEU, CMP, A1C, LIPID, VIDH, MG, TSH, GFR, B1WB, ZINC #### [address] [address] Eosinophil, Absolute 0.2 10 3/mcL Normal 0.0-0.4 [facility] ([place]) Comment on above: Performed By: #### H CV1 #### [place] [address] #### CBC, ADIFF, CK, ANEU, CMP, A1C, LIPID, VIDH, MG, TSH, GFR, B1WB, ZINC #### [address] [address] Eosinophils/100 WBC (Bld) 2.1 % Normal 0.0-7.0 [facility] ([place] Comment on above: Performed By: #### H CV1 #### [place] [address] #### CBC, ADIFF, CK, ANEU, CMP, A1C, LIPID, VIDH, MG, TSH, GFR, B1WB, ZINC #### [address] [address] Lymphocyte, Absolute 2.3 10 3/mcL Normal 0.8-3.9 [facility] ([place]) Comment on above: Performed By: #### H CV1 #### [place] [address] #### CBC, ADIFF, CK, ANEU, CMP, A1C, LIPID, VIDH, MG, TSH, GFR, B1WB, ZINC #### [address] [address] Lymphocytes/100 WBC (Bld) 30.9 % Normal 10.0-50.0 [facility] ([place] Comment on above: Performed By: #### H CV1 #### [place] [address] #### CBC, ADIFF, CK, ANEU, CMP, A1C, LIPID, VIDH, MG, TSH, GFR, B1WB, ZINC #### [address] [address] Monocyte, Absolute 0.7 10 3/mcL Normal 0.2-1.0 [facility] ([place]) Comment on above: Performed By: #### H CV1 #### [place] [address] #### CBC, ADIFF, CK, ANEU, CMP, A1C, LIPID, VIDH, MG, TSH, GFR, B1WB, ZINC #### [address] [address] Monocytes/100 WBC (Bld) 9.0 % Normal 1.7-13.0 [facility] ([place] Comment on above: Performed By: #### H CV1 #### [place] [address] #### CBC, ADIFF, CK, ANEU, CMP, A1C, LIPID, VIDH, MG, TSH, GFR, B1WB, ZINC #### [address] [address] Neutrophils/100 WBC (Bld) 57.5 % Normal 37.0-80.0 [facility] ([place] Comment on above: Performed By: #### H CV1 #### [address] [address] #### CBC, ADIFF, CK, ANEU, CMP, A1C, LIPID, VIDH, MG, TSH, GFR, B1WB, ZINC #### [address] [address] .GFRon 09-02-2022 GFR 97 ml/min/1.73sqm Normal [facility] ([place]) Comment on above: Result Comment: GFR Population [...] mL/min/1.73 square meters Performed By: #### A MY, TROPHS #### [address] [address] GFR Non- 80 ml/min/1.73sqm Normal [facility] ([place]) Comment on above: Result Comment: GFR Population [...] Performed By: #### A HUMBERTO CONTEH #### [address] [address] .NEUABSon 09-02-2022 Neutrophil, Absolute 4.3 10 3/mcL Normal 2.9-6.2 [facility] ([place]) Comment on above: Performed By: #### H CV1 #### [address] [address] #### CBC, ADIFF, CK, ANEU, CMP, A1C, LIPID, VIDH, MG, TSH, GFR, B1WB, ZINC #### [address] [address] A1Con 09-02-2022 HbA1c (Bld) [Mass fraction] 5.6 % Normal 4.3-6.4 [facility] ([place] Comment on above: Performed By: #### H CV1 #### [address] [address] #### CBC, ADIFF, CK, ANEU, CMP, A1C, LIPID, VIDH, MG, TSH, GFR, B1WB, ZINC #### [address] [address] CBCon 09-02-2022 Erythrocyte distribution width (RBC) [Ratio] 13.6 % Normal 11.5-14.5 [facility] ([place] Comment on above: Performed By: #### H CV1 #### [address] [address] #### CBC, ADIFF, CK, ANEU, CMP, A1C, LIPID, VIDH, MG, TSH, GFR, B1WB, ZINC #### [address] [address] Hematocrit (Bld) [Volume fraction] 35.7 % Low 37.0-47.0 [facility] ([place] Comment on above: Performed By: #### H CV1 #### [address] [address] #### CBC, ADIFF, CK, ANEU, CMP, A1C, LIPID, VIDH, MG, TSH, GFR, B1WB, ZINC #### [address] [address] Hgb 12.2 G/dL Normal 12.0-16.0 [facility] ([place] Comment on above: Performed By: #### H CV1 #### [place] [address] #### CBC, ADIFF, CK, ANEU, CMP, A1C, LIPID, VIDH, MG, TSH, GFR, B1WB, ZINC #### [address] [address] MCH (RBC) [Entitic mass] 30.9 pg Normal 27.0-31.2 [facility] ([place] Comment on above: Performed By: #### H CV1 #### [place] [address] #### CBC, ADIFF, CK, ANEU, CMP, A1C, LIPID, VIDH, MG, TSH, GFR, B1WB, ZINC #### [address] [address] MCHC 34.1 G/dL Normal 33.0-37.0 [facility] ([place] Comment on above: Performed By: #### H CV1 #### [address] [address] #### CBC, ADIFF, CK, ANEU, CMP, A1C, LIPID, VIDH, MG, TSH, GFR, B1WB, ZINC #### [address] [address] MCV (RBC) [Entitic vol] 90.7 fL Normal 80.0-94.0 [facility] ([place] Comment on above: Performed By: #### H CV1 #### [place] [address] #### CBC, ADIFF, CK, ANEU, CMP, A1C, LIPID, VIDH, MG, TSH, GFR, B1WB, ZINC #### [address] [address] Platelet 419 10 3/mcL High 130-400 [facility] ([place] Comment on above: Performed By: #### H CV1 #### [address] [address] #### CBC, ADIFF, CK, ANEU, CMP, A1C, LIPID, VIDH, MG, TSH, GFR, B1WB, ZINC #### [address] [address] Platelet mean volume (Bld) [Entitic vol] 6.6 fL Low 7.4-10.4 [facility] ([place] Comment on above: Performed By: #### H CV1 #### [place] [address] #### CBC, ADIFF, CK, ANEU, CMP, A1C, LIPID, VIDH, MG, TSH, GFR, B1WB, ZINC #### [address] [address] RBC 3.94 10 6/mcL Low 4.20-5.40 [facility] ([place] Comment on above: Performed By: #### H CV1 #### [address] [address] #### CBC, ADIFF, CK, ANEU, CMP, A1C, LIPID, VIDH, MG, TSH, GFR, B1WB, ZINC #### [address] [address] WBC 7.5 10 3/mcL Normal 4.6-10.8 [facility] ([place] Comment on above: Performed By: #### H CV1 #### [address] [address] #### CBC, ADIFF, CK, ANEU, CMP, A1C, LIPID, VIDH, MG, TSH, GFR, B1WB, ZINC #### [address] [address] CKon 09-02-2022 CK [Catalytic activity/Vol] 32 U/L Normal 26-192 [facility] ([place] Comment on above: Performed By: #### H CV1 #### [place] [address] #### CBC, ADIFF, CK, ANEU, CMP, A1C, LIPID, VIDH, MG, TSH, GFR, B1WB, ZINC #### [address] [address] CMPon 09-02-2022 Albumin Level 3.7 G/dL Normal 3.5-5.0 [facility] ([place] Comment on above: Performed By: #### A HUMBERTO CONTEH #### [address] [address] Albumin/Globulin [Mass ratio] 1.1 {ratio} Normal 1.1-2.5 [facility] ([place] Comment on above: Performed By: #### HUMBERTO WADE #### [address] [address] ALP [Catalytic activity/Vol] 83 U/L Normal 40-135 [facility] ([place] Comment on above: Performed By: #### A HUMBERTO CONTEH #### [address] [address] ALT [Catalytic activity/Vol] 27 U/L Normal 14-59 [facility] ([place] Comment on above: Performed By: #### HUMBERTO WADE #### [address] [address] AST [Catalytic activity/Vol] 15 U/L Normal 10-40 [facility] ([place] Comment on above: Performed By: #### HUMBERTO WADE #### [address] [address] Bili Total 0.2 mg/dL Normal 0.2-1.0 [facility] ([place] Comment on above: Result Comment: Use of this assay is not recommended for patients undergoing treatment with eltrombopag due to the potential for falsely elevated results. Performed By: #### HUMBERTO WADE #### [address] [address] BUN/Creatinine Ratio 16 ratio Normal 7-27 [facility] ([place] Comment on above: Performed By: #### HUMBERTO WADE #### [address] [address] Calcium [Mass/Vol] 9.0 mg/dL Normal 8.4-10.2 [facility] ([place]) Comment on above: Performed By: #### A WERO TROPHS #### [address] [address] Chloride [Moles/Vol] 104 mmol/L Normal 98-107 [facility] ([place] Comment on above: Performed By: #### A WERO TROPHS #### [address] [address] CO2 [Moles/Vol] 29 mmol/L Normal 22-29 [facility] ([place] Comment on above: Performed By: #### A KRISTAL CONTEHS #### [address] [address] Creatinine [Mass/Vol] 0.76 mg/dL Normal 0.55-1.02 [facility] ([place]) Comment on above: Performed By: #### A KRISTAL CONTEHS #### [address] [address] Electrolyte Balance 9.0 mEq/L Normal 4.0-15.0 [facility] ([place]) Comment on above: Performed By: #### A KRISTAL CONTEHS #### [address] [address] Globulin 3.3 G/dL Normal [facility] ([place] Comment on above: Performed By: #### A KRISTAL CONTEHS #### [address] [address] Glucose [Mass/Vol] 76 mg/dL Normal 70-105 [facility] ([place] Comment on above: Performed By: #### A KRISTAL CONTEHS #### [address] [address] Potassium [Moles/Vol] 4.3 mmol/L Normal 3.5-5.1 [facility] ([place]) Comment on above: Performed By: #### A KRISTAL CONTEHS #### [place] [address] [place], [place] [address] Sodium [Moles/Vol] 142 mmol/L Normal 136-145 [facility] ([place] Comment on above: Performed By: #### A KRISTAL CONTEHS #### [place] [id number] [place], [place] [address] Total Protein 7.0 G/dL Normal 6.4-8.2 [facility] ([place] Comment on above: Performed By: #### A KRISTAL CONTEHS #### [address] [address] Urea nitrogen [Mass/Vol] 12 mg/dL Normal 7-18 [facility] ([place] Comment on above: Performed By: #### A HUMBERTO CONTEH #### [address] [address] HCVon 09-02-2022 Hep C Ab Non-Reactive Normal Non-Reacti ve [facility] ([place] Comment on above: Performed By: #### A KRISTAL CONTEHS #### [address] [address] Hep C Ab Int Normal [facility] ([place] Comment on above: Result Comment: Nonr eactive: Samples with a value < 0.80 are considered nonreactive (negative) for antibodies to HCV. A negative test result does not exclude the possibility of exposure to or infection with HCV. HCV antibodies may be undetectable in some stages of the infection and in some clinical conditions. See Interp Performed By: #### KRISTAL WADES #### [address] [address] LABORATORYOrdered By: SYSTEM SYSTEM on 09-02-2022 Albumin [...] Non-Reactive (09/02/22 9:55 AM) Invalid Interpretation Code Non-Reacti ve ADM SS HCV Ab IA Ql Nonreactive: [...] 09-02-2022 Cholesterol [Mass/Vol] 185 mg/dL Normal 0-200 [facility] ([place] Comment on above: Result Comment: Chol esterol Reference Interval: Less than 200 Desirable 200-239 Borderline high risk 240 and above High risk Performed By: #### A HUMBERTO CONTEH #### [address] [address] Cholesterol in HDL [Mass/Vol] 67 mg/dL High 40-60 [facility] ([place] Comment on above: Performed By: #### A HUMBERTO CONTEH #### [address] [address] Cholesterol in LDL [Mass/Vol] 96 mg/dL Normal 0-130 [facility] ([place] Comment on above: Performed By: #### A HUMBERTO CONTEH #### [address] [address] Triglyceride [Mass/Vol] 109 mg/dL Normal 0-150 [facility] ([place] Comment on above: Result Comment: Trig lyceride Reference Interval: Less than 150 Normal 150-199 Borderline high risk 200-499 High risk 500 or higher Very high risk Performed By: #### A MY, HUMBERTO #### [address] [address] MGon 09-02-2022 Magnesium [Mass/Vol] 2.1 mg/dL Normal 1.8-2.4 [facility] ([place] Comment on above: Performed By: #### H CV1 #### [address] [address] #### CBC, ADIFF, CK, ANEU, CMP, A1C, LIPID, VIDH, MG, TSH, GFR, B1WB, ZINC #### [address] [address] TSHon 09-02-2022 TSH Qn 1.47 m[IU]/L Normal 0.36-3.74 [facility] ([place]) Comment on above: Performed By: #### H CV1 #### [address] [address] #### CBC, ADIFF, CK, ANEU, CMP, A1C, LIPID, VIDH, MG, TSH, GFR, B1WB, ZINC #### [address] [address] VIDHon 09-02-2022 Vit. D 25-Hydroxy 46.3 ng/mL Normal [facility] ([place]) Comment on above: Result Comment: Inte rpretive Values Based on Total 25(OH) Vitamin D: Deficient <20 ng/mL Insufficient 20 - <30 ng/mL Sufficient 30-100 ng/mL Performed By: #### H CV1 #### [place] [address] #### CBC, ADIFF, CK, ANEU, CMP, A1C, LIPID, VIDH, MG, TSH, GFR, B1WB, ZINC #### [address] [address] .Auto Diffon 03-18-2023 Basophil, Absolute 0.0 10 3/mcL Normal 0.0-0.2 [facility] ([place] Comment on above: Performed By: #### H CV1 #### [place] [address] #### CBC, ADIFF, CK, ANEU, CMP, A1C, LIPID, VIDH, MG, TSH, GFR, B1WB, ZINC #### [address] [address] Basophils/100 WBC (Bld) 0.2 % Normal 0.0-2.5 [facility] ([place] Comment on above: Performed By: #### H CV1 #### [place] [address] #### CBC, ADIFF, CK, ANEU, CMP, A1C, LIPID, VIDH, MG, TSH, GFR, B1WB, ZINC #### [address] [address] Eosinophil, Absolute 0.1 10 3/mcL Normal 0.0-0.4 [facility] ([place]) Comment on above: Performed By: #### H CV1 #### [place] [address] #### CBC, ADIFF, CK, ANEU, CMP, A1C, LIPID, VIDH, MG, TSH, GFR, B1WB, ZINC #### [address] [address] Eosinophils/100 WBC (Bld) 0.9 % Normal 0.0-7.0 [facility] ([place] Comment on above: Performed By: #### H CV1 #### [place] [address] #### CBC, ADIFF, CK, ANEU, CMP, A1C, LIPID, VIDH, MG, TSH, GFR, B1WB, ZINC #### [address] [address] Lymphocyte, Absolute 0.7 10 3/mcL Low 0.8-3.9 [facility] ([place]) Comment on above: Performed By: #### H CV1 #### [place] [address] #### CBC, ADIFF, CK, ANEU, CMP, A1C, LIPID, VIDH, MG, TSH, GFR, B1WB, ZINC #### [address] [address] Lymphocytes/100 WBC (Bld) 8.5 % Low 10.0-50.0 [facility] ([place]) Comment on above: Performed By: #### H CV1 #### [place] [address] #### CBC, ADIFF, CK, ANEU, CMP, A1C, LIPID, VIDH, MG, TSH, GFR, B1WB, ZINC #### [address] [address] Monocyte, Absolute 0.5 10 3/mcL Normal 0.2-1.0 [facility] ([place]) Comment on above: Performed By: #### H CV1 #### [place] [address] #### CBC, ADIFF, CK, ANEU, CMP, A1C, LIPID, VIDH, MG, TSH, GFR, B1WB, ZINC #### [address] [address] Monocytes/100 WBC (Bld) 6.4 % Normal 1.7-13.0 [facility] ([place]) Comment on above: Performed By: #### H CV1 #### [place] [address] #### CBC, ADIFF, CK, ANEU, CMP, A1C, LIPID, VIDH, MG, TSH, GFR, B1WB, ZINC #### [address] [address] Neutrophils/100 WBC (Bld) 84.0 % High 37.0-80.0 [facility] ([place]) Comment on above: Performed By: #### H CV1 #### [place] [address] #### CBC, ADIFF, CK, ANEU, CMP, A1C, LIPID, VIDH, MG, TSH, GFR, B1WB, ZINC #### [place] [address] [place], [place] [address] .GFRon 08-26-2022 GFR 82 ml/min/1.73sqm Normal [facility] ([place]) Comment on above: Result Comment: GFR Population [...] meters Performed By: #### H CV1 #### [address] [address] #### CBC, ADIFF, CK, ANEU, CMP, A1C, LIPID, VIDH, MG, TSH, GFR, B1WB, ZINC #### [place] [place] [address] [place], [place] [address] GFR Non- 68 ml/min/1.73sqm Normal [facility] ([place] Comment on above: Result Comment: GFR Population [...] meters Performed By: #### H CV1 #### [address] [address] #### CBC, ADIFF, CK, ANEU, CMP, A1C, LIPID, VIDH, MG, TSH, GFR, B1WB, ZINC #### [address] [address] .MDWon 08-26-2022 Monocyte Distribution Width 20.32 High 0.00-20.00 [facility] ([place]) Comment on above: Result Comment: For adults in ED, MDW>20.0 may be associated with a higher risk of sepsis during the first 12hrs of hospital admission Performed By: #### H CV1 #### [address] [address] #### CBC, ADIFF, CK, ANEU, CMP, A1C, LIPID, VIDH, MG, TSH, GFR, B1WB, ZINC #### [address] [address] .NEUABSon 08-26-2022 Neutrophil, Absolute 6.7 10 3/mcL High 2.9-6.2 [facility] ([place]) Comment on above: Performed By: #### H CV1 #### [address] [address] #### CBC, ADIFF, CK, ANEU, CMP, A1C, LIPID, VIDH, MG, TSH, GFR, B1WB, ZINC #### [address] [address] AMYon 08-26-2022 Amylase [Catalytic activity/Vol] 54 U/L Normal 25-115 [facility] ([place] Comment on above: Performed By: #### A MY, TROPHS #### [address] [address] CBCon 08-26-2022 Erythrocyte distribution width (RBC) [Ratio] 13.7 % Normal 11.5-14.5 [facility] ([place]) Comment on above: Performed By: #### H CV1 #### [address] [address] #### CBC, ADIFF, CK, ANEU, CMP, A1C, LIPID, VIDH, MG, TSH, GFR, B1WB, ZINC #### [address] [address] Hematocrit (Bld) [Volume fraction] 37.5 % Normal 37.0-47.0 [facility] ([place]) Comment on above: Performed By: #### H CV1 #### [address] [address] #### CBC, ADIFF, CK, ANEU, CMP, A1C, LIPID, VIDH, MG, TSH, GFR, B1WB, ZINC #### [address] [address] Hgb 12.6 G/dL Normal 12.0-16.0 [facility] ([place]) Comment on above: Performed By: #### H CV1 #### [address] [address] #### CBC, ADIFF, CK, ANEU, CMP, A1C, LIPID, VIDH, MG, TSH, GFR, B1WB, ZINC #### [address] [address] MCH (RBC) [Entitic mass] 30.7 pg Normal 27.0-31.2 [facility] ([place]) Comment on above: Performed By: #### H CV1 #### [address] [address] #### CBC, ADIFF, CK, ANEU, CMP, A1C, LIPID, VIDH, MG, TSH, GFR, B1WB, ZINC #### [address] [address] MCHC 33.7 G/dL Normal 33.0-37.0 [facility] ([place]) Comment on above: Performed By: #### H CV1 #### [address] [address] #### CBC, ADIFF, CK, ANEU, CMP, A1C, LIPID, VIDH, MG, TSH, GFR, B1WB, ZINC #### [address] [address] MCV (RBC) [Entitic vol] 91.1 fL Normal 80.0-94.0 [facility] ([place]) Comment on above: Performed By: #### H CV1 #### [address] [address] #### CBC, ADIFF, CK, ANEU, CMP, A1C, LIPID, VIDH, MG, TSH, GFR, B1WB, ZINC #### [address] [address] Platelet 304 10 3/mcL Normal 130-400 [facility] ([place]) Comment on above: Performed By: #### H CV1 #### [place] [address] #### CBC, ADIFF, CK, ANEU, CMP, A1C, LIPID, VIDH, MG, TSH, GFR, B1WB, ZINC #### [address] [address] Platelet mean volume (Bld) [Entitic vol] 7.0 fL Low 7.4-10.4 [facility] ([place]) Comment on above: Performed By: #### H CV1 #### [place] [address] #### CBC, ADIFF, CK, ANEU, CMP, A1C, LIPID, VIDH, MG, TSH, GFR, B1WB, ZINC #### [address] [address] RBC 4.11 10 6/mcL Low 4.20-5.40 [facility] ([place]) Comment on above: Performed By: #### H CV1 #### [place] [address] #### CBC, ADIFF, CK, ANEU, CMP, A1C, LIPID, VIDH, MG, TSH, GFR, B1WB, ZINC #### [address] [address] WBC 8.0 10 3/mcL Normal 4.6-10.8 [facility] ([place]) Comment on above: Performed By: #### H CV1 #### [address] [address] #### CBC, ADIFF, CK, ANEU, CMP, A1C, LIPID, VIDH, MG, TSH, GFR, B1WB, ZINC #### [address] [address] CMPon 08-26-2022 Albumin Level 3.9 G/dL Normal 3.5-5.0 [facility] ([place]) Comment on above: Performed By: #### H CV1 #### [place] [address] #### CBC, ADIFF, CK, ANEU, CMP, A1C, LIPID, VIDH, MG, TSH, GFR, B1WB, ZINC #### [address] [address] Albumin/Globulin [Mass ratio] 1.2 {ratio} Normal 1.1-2.5 [facility] ([place]) Comment on above: Performed By: #### H CV1 #### [place] [address] #### CBC, ADIFF, CK, ANEU, CMP, A1C, LIPID, VIDH, MG, TSH, GFR, B1WB, ZINC #### [address] [address] ALP [Catalytic activity/Vol] 97 U/L Normal 40-135 [facility] ([place]) Comment on above: Performed By: #### H CV1 #### [place] [address] #### CBC, ADIFF, CK, ANEU, CMP, A1C, LIPID, VIDH, MG, TSH, GFR, B1WB, ZINC #### [address] [address] ALT [Catalytic activity/Vol] 27 U/L Normal 14-59 [facility] ([place]) Comment on above: Performed By: #### H CV1 #### [place] [address] #### CBC, ADIFF, CK, ANEU, CMP, A1C, LIPID, VIDH, MG, TSH, GFR, B1WB, ZINC #### [address] [address] AST [Catalytic activity/Vol] 34 U/L Normal 10-40 [facility] ([place]) Comment on above: Performed By: #### H CV1 #### [place] [address] #### CBC, ADIFF, CK, ANEU, CMP, A1C, LIPID, VIDH, MG, TSH, GFR, B1WB, ZINC #### [address] [address] Bili Total 0.3 mg/dL Normal 0.2-1.0 [facility] ([place]) Comment on above: Result Comment: Use of this assay is not recommended for patients undergoing treatment with eltrombopag due to the potential for falsely elevated results. Performed By: #### H CV1 #### [place] [address] #### CBC, ADIFF, CK, ANEU, CMP, A1C, LIPID, VIDH, MG, TSH, GFR, B1WB, ZINC #### [address] [address] BUN/Creatinine Ratio 10 ratio Normal 7-27 [facility] ([place]) Comment on above: Performed By: #### H CV1 #### [place] [address] #### CBC, ADIFF, CK, ANEU, CMP, A1C, LIPID, VIDH, MG, TSH, GFR, B1WB, ZINC #### [address] [address] Calcium [Mass/Vol] 8.7 mg/dL Normal 8.4-10.2 [facility] ([place]) Comment on above: Performed By: #### H CV1 #### [place] [address] #### CBC, ADIFF, CK, ANEU, CMP, A1C, LIPID, VIDH, MG, TSH, GFR, B1WB, ZINC #### [address] [address] Chloride [Moles/Vol] 102 mmol/L Normal 98-107 [facility] ([place]) Comment on above: Performed By: #### H CV1 #### [address] [address] #### CBC, ADIFF, CK, ANEU, CMP, A1C, LIPID, VIDH, MG, TSH, GFR, B1WB, ZINC #### [address] [address] CO2 [Moles/Vol] 27 mmol/L Normal 22-29 [facility] ([place]) Comment on above: Performed By: #### H CV1 #### [place] [address] #### CBC, ADIFF, CK, ANEU, CMP, A1C, LIPID, VIDH, MG, TSH, GFR, B1WB, ZINC #### [address] [address] Creatinine [Mass/Vol] 0.88 mg/dL Normal 0.55-1.02 [facility] ([place]) Comment on above: Performed By: #### H CV1 #### [place] [address] #### CBC, ADIFF, CK, ANEU, CMP, A1C, LIPID, VIDH, MG, TSH, GFR, B1WB, ZINC #### [address] [address] Electrolyte Balance 8.0 mEq/L Normal 4.0-15.0 [facility] ([place]) Comment on above: Performed By: #### H CV1 #### [place] [address] #### CBC, ADIFF, CK, ANEU, CMP, A1C, LIPID, VIDH, MG, TSH, GFR, B1WB, ZINC #### [address] [address] Globulin 3.2 G/dL Normal [facility] ([place]) Comment on above: Performed By: #### H CV1 #### [address] [address] #### CBC, ADIFF, CK, ANEU, CMP, A1C, LIPID, VIDH, MG, TSH, GFR, B1WB, ZINC #### [address] [address] Glucose [Mass/Vol] 98 mg/dL Normal 70-105 [facility] ([place]) Comment on above: Performed By: #### H CV1 #### [address] [address] #### CBC, ADIFF, CK, ANEU, CMP, A1C, LIPID, VIDH, MG, TSH, GFR, B1WB, ZINC #### [address] [address] Potassium [Moles/Vol] 4.3 mmol/L Normal 3.5-5.1 [facility] ([place]) Comment on above: Performed By: #### H CV1 #### [address] [address] #### CBC, ADIFF, CK, ANEU, CMP, A1C, LIPID, VIDH, MG, TSH, GFR, B1WB, ZINC #### [address] [address] Sodium [Moles/Vol] 137 mmol/L Normal 136-145 [facility] ([place]) Comment on above: Performed By: #### H CV1 #### [place] [address] #### CBC, ADIFF, CK, ANEU, CMP, A1C, LIPID, VIDH, MG, TSH, GFR, B1WB, ZINC #### [address] [address] Total Protein 7.1 G/dL Normal 6.4-8.2 [facility] ([place]) Comment on above: Performed By: #### H CV1 #### [address] [address] #### CBC, ADIFF, CK, ANEU, CMP, A1C, LIPID, VIDH, MG, TSH, GFR, B1WB, ZINC #### [address] [address] Urea nitrogen [Mass/Vol] 9 mg/dL Normal 7-18 [facility] ([place]) Comment on above: Performed By: #### H CV1 #### [place] [address] [place] [address] #### CBC, ADIFF, CK, ANEU, CMP, A1C, LIPID, VIDH, MG, TSH, GFR, B1WB, ZINC #### [place] [address] [place], [place] [address] CRPon 08-26-2022 C-Reactive Protein 4.1 mg/dL High 0.0-0.9 [facility] ([place]) Comment on above: Performed By: #### H CV1 #### [address] [address] #### CBC, ADIFF, CK, ANEU, CMP, A1C, LIPID, VIDH, MG, TSH, GFR, B1WB, ZINC #### [place] [id number] [place], [place] [address] CT ABD/PELVIS W/ IV CONTRAST ONLYon 08-26-2022 [...] Date: 08/26/2022 6:34:22 PM Ordering Provider: LINDA MARTINEZ Normal [facility]) DIMERon 08-26-2022 D-Dimer <200 Normal 0-230 [facility]) Comment on above: Result Comment: The result [...] ([place]). Performed By: #### H CV1 #### [address] [address] #### CBC, ADIFF, CK, ANEU, CMP, A1C, LIPID, VIDH, MG, TSH, GFR, B1WB, ZINC #### [address] [address] LABORATORYOrdered By: SYSTEM SYSTEM on 08-26-2022 Amylase [...] LIPon 08-26-2022 Lipase Level 177 U/L High 16-77 [facility] ([place]) Comment on above: Performed By: #### H CV1 #### [address] [address] #### CBC, ADIFF, CK, ANEU, CMP, A1C, LIPID, VIDH, MG, TSH, GFR, B1WB, ZINC #### [address] [address] MGon 08-26-2022 Magnesium [Mass/Vol] 2.0 mg/dL Normal 1.8-2.4 [facility] ([place]) Comment on above: Performed By: #### H CV1 #### [address] [address] #### CBC, ADIFF, CK, ANEU, CMP, A1C, LIPID, VIDH, MG, TSH, GFR, B1WB, ZINC #### [address] [address] PBNPon 08-26-2022 Natriuretic peptide B (Bld) [Mass/Vol] 27 pg/mL Normal 0-125 [facility] ([place]) Comment on above: Result Comment: NT-p roBNP results of less than 300 pg/mL effectively rules out acute congestive heart failure with 99% negative predictive value. Performed By: #### H CV1 #### [address] [address] #### CBC, ADIFF, CK, ANEU, CMP, A1C, LIPID, VIDH, MG, TSH, GFR, B1WB, ZINC #### [address] [address] TROPHSon 08-26-2022 Troponin I High Sensitivity 4.3 ng/L Normal 0.0-51.4 [facility] ([place]) Comment on above: Performed By: #### A MY, TROPHS #### [address] [address] Troponin I High Sensitivity <4.0 Normal 0.0-51.4 [facility] ([place]) Comment on above: Performed By: #### H CV1 #### [place] [address] #### CBC, ADIFF, CK, ANEU, CMP, A1C, LIPID, VIDH, MG, TSH, GFR, B1WB, ZINC #### [address] [address] XR CHEST 1 VIEWon 08-26-2022 XR CHEST [...] 08/26/2022 5:14:04 PM Ordering Provider: LINDA Silverio [facility] ([place]) US BREAST RIGHT LIMITEDon US BREAST RIGHT LIMITED ORIGINAL FROM: [address] [address] PROCEDURE FOR: AMANDA GRUBBS [address] [place] [address] Home: PID#: [id number] Exam#: [id number] : 1970 Age: 52 TO: FRANKY PEARSON DO [facility] [address] [address] Fax: NO FAX EXAMINATION: ULTRASOUND OF THE [...] Provider: FRANKY PEARSON CLINICAL: 6 MONTHS FOLLOW-UP. Coat Agent: FELIBERTO CINTRON RT(R) RDMS letter sent: Probably Benign BI-RADS 3 Ultrasound BI-RADS: 3 Probably benign Normal [facility] ([place]) Office Visiton 08-18-2022 Follow-up visit [id number] Amanda Grubbs 1970 F Date Provider Department Center 08/18/2022 [id number] SEBASTIAN [facility] None Family History Problem Relation [...] Grandfather Paternal Grandmother Sister Alive Level of Service:15107 ND OFFICE/OUTPATIENT ESTABLISHED LOW MDM 20-29 MIN Reason for Visit and Comments: Bariatrics Post Op Follow-up [884] - DE POP 04/08/[address] [facility] Progress Noteon 08-18-2022 Progress Note BARIATRIC CARE [...] YES: Labs completed at [facility]? N/A If yes see Labs Tab Labs completed at Non-[facility] facility? N/A If yes see Encounters Tab - Orders only - Historical Provider - Date: Completed by: Mary Mishra MA [facility] GLUon 08-15-2022 Glucose [Mass/Vol] 78 mg/dL Normal 70-110 [facility] ([place]) Comment on above: Performed By: #### H CV1 #### [address] [address] #### CBC, ADIFF, CK, ANEU, CMP, A1C, LIPID, VIDH, MG, TSH, GFR, B1WB, ZINC #### [address] [address] LIPIDon 08-15-2022 Cholesterol [Mass/Vol] 166 mg/dL Normal 50-199 [facility] ([place]) Comment on above: Result Comment: Chol esterol Reference Interval: Less than 200 Desirable 200-239 Borderline high risk 240 and above High risk Performed By: #### H CV1 #### [address] [address] #### CBC, ADIFF, CK, ANEU, CMP, A1C, LIPID, VIDH, MG, TSH, GFR, B1WB, ZINC #### [address] [address] Cholesterol in HDL [Mass/Vol] 51 mg/dL Normal 40-59 [facility] ([place]) Comment on above: Performed By: #### H CV1 #### [address] [address] #### CBC, ADIFF, CK, ANEU, CMP, A1C, LIPID, VIDH, MG, TSH, GFR, B1WB, ZINC #### [address] [address] Cholesterol in LDL [Mass/Vol] 84 mg/dL Normal 0-129 [facility] ([place]) Comment on above: Performed By: #### H CV1 #### [address] [address] #### CBC, ADIFF, CK, ANEU, CMP, A1C, LIPID, VIDH, MG, TSH, GFR, B1WB, ZINC #### [place] [address] [place], [place] [address] Triglyceride [Mass/Vol] 156 mg/dL High 3-149 [facility] ([place]) Comment on above: Performed By: #### H CV1 #### [address] [address] #### CBC, ADIFF, CK, ANEU, CMP, A1C, LIPID, VIDH, MG, TSH, GFR, B1WB, ZINC #### [address] [address] Office Visiton 07-07-2022 Follow-up visit [id number] Amanda Grubbs 1970 F Date Provider Department Center 07/07/[address] [facility] None Family History Problem Relation [...] Grandfather Paternal Grandmother Sister Alive Level of Service:95950 ND OFFICE/OUTPATIENT ESTABLISHED LOW MDM 20-29 MIN Reason for Visit and Comments: Bariatrics Post Op Follow-up [884] - POP D/E FU Normal [facility] Progress Noteon 07-07-2022 Progress Note BARIATRIC CARE [...] YES: Labs completed at [facility]? N/A If yes see Labs Tab [facility]? N/A If yes see Encounters Tab - Orders only - Historical Provider - Date: Completed by: Manuel Preciado MA [facility] CT THORAX W/O CONTRASTon CT THORAX W/O [...] Date: 2022 12:43:51 PM Ordering Provider: FRANKY Silverio [facility] ([place]) Office Visiton 06-07-2022 Follow-up visit [id number] Amanda Grubbs 1970 F Date Provider Department Center 06/07/2022 [id number] ANDRADE [facility] None Family History Problem Relation [...] Grandfather Paternal Grandmother Sister Alive Level of Service:04287 ND OFFICE/OUTPATIENT ESTABLISHED LOW MDM 20-29 MIN Reason for Visit and Comments: Bariatrics Post Op Follow-up [884] - POP D/E FU 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 N/A If yes see Labs Tab Labs completed at Non-[facility] facility? N/A If yes see Encounters Tab - Orders only - Historical Provider - Date: Completed by: Manuel Preciado MA [facility] Office Visiton 05-10-2022 Follow-up visit [id number] Amanda Grubbs 1970 F Date Provider Department Center 05/10/2022 [id number] ANDRADE [facility] None Family History Problem Relation [...] Grandfather Paternal Grandmother Sister Alive Level of Service:22534 ND OFFICE/OUTPATIENT ESTABLISHED MOD MDM 30-39 MIN Reason for Visit and Comments: Weight Management [645] - POP D/E [facility] Progress Noteon 05-10-2022 Progress Note BARIATRIC CARE [...] YES: Labs completed at [facility]? no If yes see Labs Tab Labs completed at Non-[facility] facility? yes If yes see Encounters Tab - Orders only - Historical Provider - Date: 04/26/22 Completed by: Tatum Del Valle MA [facility] B1WBon 05-01-2022 Vitamin B1 (TDP), Whole Blood 94.7 nmol/L Normal 84.3-213.3 [facility] ([place]) Comment on above: Result Comment: This assay measures the concentration of thiamine diphosphate (TDP), the primary active form of vitamin B1. Approximately 90 percent of vitamin B1 present in whole blood is TDP. Thiamine and thiamine monophosphate, which comprise the remaining 10 percent, are not measured. This test was developed and its performance characteristics determined by [facility]'s [facility] [place] [facility] It has not been cleared or approved by the FDA. -[facility] is regulated under CLIA as qualified to perform high-complexity testing. This test is used for clinical purposes. It should not be regarded as investigational or for research. Performed By: [facility] [address] [place] [address] Rail Crew Member: Kenny Nunes III, M.D. CLIA#: [id number] Performed By: #### H CV1 #### [address] [address] #### CBC, ADIFF, CK, ANEU, CMP, A1C, LIPID, VIDH, MG, TSH, GFR, B1WB, ZINC #### [address] [address] ZINCon 04-27-2022 Zinc (s) 52 UG/DL Low 60-120 [facility] ([place]) Comment on above: Result Comment: This test was developed and its performance characteristics determined by [facility]'s Noel JFiorella [facility] [place] [facility] [place] ([facility] It has not been cleared or approved by the FDA. -[facility] is regulated under CLIA as qualified to perform high-complexity testing. This test is used for clinical purposes. It should not be regarded as investigational or for research. Performed By: [facility] [address] [place] [address] Rail Crew Member: Kenny Nunes III, M.D. CLIA#: [id number] Performed By: #### H CV1 #### [address] [address] #### CBC, ADIFF, CK, ANEU, CMP, A1C, LIPID, VIDH, MG, TSH, GFR, B1WB, ZINC #### [address] [address] .Auto Diffon 04-26-2022 Basophil, Absolute 0.0 10 3/mcL Normal 0.0-0.2 [facility] ([place]) Comment on above: Performed By: #### H CV1 #### [address] [address] #### CBC, ADIFF, CK, ANEU, CMP, A1C, LIPID, VIDH, MG, TSH, GFR, B1WB, ZINC #### [address] [address] Basophils/100 WBC (Bld) 0.7 % Normal 0.0-2.5 [facility] ([place]) Comment on above: Performed By: #### H CV1 #### [place] [address] #### CBC, ADIFF, CK, ANEU, CMP, A1C, LIPID, VIDH, MG, TSH, GFR, B1WB, ZINC #### [address] [address] Eosinophil, Absolute 0.2 10 3/mcL Normal 0.0-0.4 [facility] ([place]) Comment on above: Performed By: #### H CV1 #### [place] [address] #### CBC, ADIFF, CK, ANEU, CMP, A1C, LIPID, VIDH, MG, TSH, GFR, B1WB, ZINC #### [address] [address] Eosinophils/100 WBC (Bld) 3.2 % Normal 0.0-7.0 [facility] ([place]) Comment on above: Performed By: #### H CV1 #### [place] [address] #### CBC, ADIFF, CK, ANEU, CMP, A1C, LIPID, VIDH, MG, TSH, GFR, B1WB, ZINC #### [address] [address] Lymphocyte, Absolute 1.8 10 3/mcL Normal 0.8-3.9 [facility] ([place]) Comment on above: Performed By: #### H CV1 #### [place] [address] #### CBC, ADIFF, CK, ANEU, CMP, A1C, LIPID, VIDH, MG, TSH, GFR, B1WB, ZINC #### [address] [address] Lymphocytes/100 WBC (Bld) 33.7 % Normal 10.0-50.0 [facility] ([place]) Comment on above: Performed By: #### H CV1 #### [place] [address] #### CBC, ADIFF, CK, ANEU, CMP, A1C, LIPID, VIDH, MG, TSH, GFR, B1WB, ZINC #### [address] [address] Monocyte, Absolute 0.5 10 3/mcL Normal 0.2-1.0 [facility] ([place]) Comment on above: Performed By: #### H CV1 #### [address] [address] #### CBC, ADIFF, CK, ANEU, CMP, A1C, LIPID, VIDH, MG, TSH, GFR, B1WB, ZINC #### [address] [address] Monocytes/100 WBC (Bld) 10.3 % Normal 1.7-13.0 [facility] ([place]) Comment on above: Performed By: #### H CV1 #### [address] [address] #### CBC, ADIFF, CK, ANEU, CMP, A1C, LIPID, VIDH, MG, TSH, GFR, B1WB, ZINC #### [address] [address] Neutrophils/100 WBC (Bld) 52.1 % Normal 37.0-80.0 [facility] ([place]) Comment on above: Performed By: #### H CV1 #### [address] [address] #### CBC, ADIFF, CK, ANEU, CMP, A1C, LIPID, VIDH, MG, TSH, GFR, B1WB, ZINC #### [address] [address] .GFRon 04-26-2022 GFR 71 ml/min/1.73sqm Normal [facility] ([place]) Comment on above: Result Comment: GFR Population [...] meters Performed By: #### H CV1 #### [address] [address] #### CBC, ADIFF, CK, ANEU, CMP, A1C, LIPID, VIDH, MG, TSH, GFR, B1WB, ZINC #### [address] [address] GFR Non- 59 ml/min/1.73sqm Normal [facility] ([place]) Comment on above: Result Comment: GFR Population [...] meters Performed By: #### H CV1 #### [place] [address] #### CBC, ADIFF, CK, ANEU, CMP, A1C, LIPID, VIDH, MG, TSH, GFR, B1WB, ZINC #### [address] [address] .NEUABSon 04-26-2022 Neutrophil, Absolute 2.8 10 3/mcL Low 2.9-6.2 [facility] ([place]) Comment on above: Performed By: #### H CV1 #### [address] [address] #### CBC, ADIFF, CK, ANEU, CMP, A1C, LIPID, VIDH, MG, TSH, GFR, B1WB, ZINC #### [address] [address] A1Con 04-26-2022 HbA1c (Bld) [Mass fraction] 5.7 % Normal 4.3-6.4 [facility] ([place]) Comment on above: Performed By: #### H CV1 #### [address] [address] #### CBC, ADIFF, CK, ANEU, CMP, A1C, LIPID, VIDH, MG, TSH, GFR, B1WB, ZINC #### [address] [address] B12on 04-26-2022 Cobalamin (Vitamin B12) [Mass/Vol] 328 pg/mL Normal 211-911 [facility] ([place]) Comment on above: Performed By: #### H CV1 #### [place] [address] #### CBC, ADIFF, CK, ANEU, CMP, A1C, LIPID, VIDH, MG, TSH, GFR, B1WB, ZINC #### [address] [address] CBCon 04-26-2022 Erythrocyte distribution width (RBC) [Ratio] 13.0 % Normal 11.5-14.5 [facility] ([place]) Comment on above: Performed By: #### H CV1 #### [address] [address] #### CBC, ADIFF, CK, ANEU, CMP, A1C, LIPID, VIDH, MG, TSH, GFR, B1WB, ZINC #### [address] [address] Hematocrit (Bld) [Volume fraction] 37.6 % Normal 37.0-47.0 [facility] ([place]) Comment on above: Performed By: #### H CV1 #### [address] [address] #### CBC, ADIFF, CK, ANEU, CMP, A1C, LIPID, VIDH, MG, TSH, GFR, B1WB, ZINC #### [address] [address] Hgb 12.7 G/dL Normal 12.0-16.0 [facility] ([place]) Comment on above: Performed By: #### H CV1 #### [place] [address] #### CBC, ADIFF, CK, ANEU, CMP, A1C, LIPID, VIDH, MG, TSH, GFR, B1WB, ZINC #### [address] [address] MCH (RBC) [Entitic mass] 31.4 pg High 27.0-31.2 [facility] ([place]) Comment on above: Performed By: #### H CV1 #### [place] [address] #### CBC, ADIFF, CK, ANEU, CMP, A1C, LIPID, VIDH, MG, TSH, GFR, B1WB, ZINC #### [address] [address] MCHC 33.8 G/dL Normal 33.0-37.0 [facility] ([place]) Comment on above: Performed By: #### H CV1 #### [address] [address] #### CBC, ADIFF, CK, ANEU, CMP, A1C, LIPID, VIDH, MG, TSH, GFR, B1WB, ZINC #### [address] [address] MCV (RBC) [Entitic vol] 92.9 fL Normal 80.0-94.0 [facility] ([place]) Comment on above: Performed By: #### H CV1 #### [place] [address] #### CBC, ADIFF, CK, ANEU, CMP, A1C, LIPID, VIDH, MG, TSH, GFR, B1WB, ZINC #### [address] [address] Platelet 278 10 3/mcL Normal 130-400 [facility] ([place]) Comment on above: Performed By: #### H CV1 #### [address] [address] #### CBC, ADIFF, CK, ANEU, CMP, A1C, LIPID, VIDH, MG, TSH, GFR, B1WB, ZINC #### [address] [address] Platelet mean volume (Bld) [Entitic vol] 7.2 fL Low 7.4-10.4 [facility] ([place]) Comment on above: Performed By: #### H CV1 #### [place] [address] #### CBC, ADIFF, CK, ANEU, CMP, A1C, LIPID, VIDH, MG, TSH, GFR, B1WB, ZINC #### [address] [address] RBC 4.05 10 6/mcL Low 4.20-5.40 [facility] ([place]) Comment on above: Performed By: #### H CV1 #### [place] [address] #### CBC, ADIFF, CK, ANEU, CMP, A1C, LIPID, VIDH, MG, TSH, GFR, B1WB, ZINC #### [address] [address] WBC 5.3 10 3/mcL Normal 4.6-10.8 [facility] ([place]) Comment on above: Performed By: #### H CV1 #### [place] [address] #### CBC, ADIFF, CK, ANEU, CMP, A1C, LIPID, VIDH, MG, TSH, GFR, B1WB, ZINC #### [address] [address] CMPon 04-26-2022 Albumin Level 4.1 G/dL Normal 3.5-5.0 [facility] ([place]) Comment on above: Performed By: #### H CV1 #### [place] [address] #### CBC, ADIFF, CK, ANEU, CMP, A1C, LIPID, VIDH, MG, TSH, GFR, B1WB, ZINC #### [address] [address] Albumin/Globulin [Mass ratio] 1.3 {ratio} Normal 1.1-2.5 [facility] ([place]) Comment on above: Performed By: #### H CV1 #### [place] [address] #### CBC, ADIFF, CK, ANEU, CMP, A1C, LIPID, VIDH, MG, TSH, GFR, B1WB, ZINC #### [address] [address] ALP [Catalytic activity/Vol] 85 U/L Normal 40-135 [facility] ([place]) Comment on above: Performed By: #### H CV1 #### [place] [address] #### CBC, ADIFF, CK, ANEU, CMP, A1C, LIPID, VIDH, MG, TSH, GFR, B1WB, ZINC #### [address] [address] ALT [Catalytic activity/Vol] 25 U/L Normal 14-59 [facility] ([place] Comment on above: Performed By: #### H CV1 #### [place] [address] #### CBC, ADIFF, CK, ANEU, CMP, A1C, LIPID, VIDH, MG, TSH, GFR, B1WB, ZINC #### [address] [address] AST [Catalytic activity/Vol] 18 U/L Normal 10-40 [facility] ([place]) Comment on above: Performed By: #### H CV1 #### [place] [address] #### CBC, ADIFF, CK, ANEU, CMP, A1C, LIPID, VIDH, MG, TSH, GFR, B1WB, ZINC #### [address] [address] Bili Total 0.2 mg/dL Normal 0.2-1.0 [facility] ([place]) Comment on above: Result Comment: Use of this assay is not recommended for patients undergoing treatment with eltrombopag due to the potential for falsely elevated results. Performed By: #### H CV1 #### [place] [address] #### CBC, ADIFF, CK, ANEU, CMP, A1C, LIPID, VIDH, MG, TSH, GFR, B1WB, ZINC #### [address] [address] BUN/Creatinine Ratio 10 ratio Normal 7-27 [facility] ([place]) Comment on above: Performed By: #### H CV1 #### [place] [address] #### CBC, ADIFF, CK, ANEU, CMP, A1C, LIPID, VIDH, MG, TSH, GFR, B1WB, ZINC #### [address] [address] Calcium [Mass/Vol] 9.6 mg/dL Normal 8.4-10.2 [facility] ([place]) Comment on above: Performed By: #### H CV1 #### [place] [address] #### CBC, ADIFF, CK, ANEU, CMP, A1C, LIPID, VIDH, MG, TSH, GFR, B1WB, ZINC #### [address] [address] Chloride [Moles/Vol] 105 mmol/L Normal 98-107 [facility] ([place]) Comment on above: Performed By: #### H CV1 #### [place] [address] #### CBC, ADIFF, CK, ANEU, CMP, A1C, LIPID, VIDH, MG, TSH, GFR, B1WB, ZINC #### [address] [address] CO2 [Moles/Vol] 30 mmol/L High 22-29 [facility] ([place]) Comment on above: Performed By: #### H CV1 #### [place] [address] #### CBC, ADIFF, CK, ANEU, CMP, A1C, LIPID, VIDH, MG, TSH, GFR, B1WB, ZINC #### [address] [address] Creatinine [Mass/Vol] 1.00 mg/dL Normal 0.55-1.02 [facility] ([place]) Comment on above: Performed By: #### H CV1 #### [place] [address] #### CBC, ADIFF, CK, ANEU, CMP, A1C, LIPID, VIDH, MG, TSH, GFR, B1WB, ZINC #### [address] [address] Electrolyte Balance 5.0 mEq/L Normal 4.0-15.0 [facility] ([place]) Comment on above: Performed By: #### H CV1 #### [place] [address] #### CBC, ADIFF, CK, ANEU, CMP, A1C, LIPID, VIDH, MG, TSH, GFR, B1WB, ZINC #### [address] [address] Globulin 3.1 G/dL Normal [facility] ([place]) Comment on above: Performed By: #### H CV1 #### [place] [address] #### CBC, ADIFF, CK, ANEU, CMP, A1C, LIPID, VIDH, MG, TSH, GFR, B1WB, ZINC #### [address] [address] Glucose [Mass/Vol] 69 mg/dL Low 70-105 [facility] ([place]) Comment on above: Performed By: #### H CV1 #### [place] [address] #### CBC, ADIFF, CK, ANEU, CMP, A1C, LIPID, VIDH, MG, TSH, GFR, B1WB, ZINC #### [address] [address] Potassium [Moles/Vol] 5.0 mmol/L Normal 3.5-5.1 [facility] ([place]) Comment on above: Performed By: #### H CV1 #### [address] [address] #### CBC, ADIFF, CK, ANEU, CMP, A1C, LIPID, VIDH, MG, TSH, GFR, B1WB, ZINC #### [address] [address] Sodium [Moles/Vol] 140 mmol/L Normal 136-145 [facility] ([place]) Comment on above: Performed By: #### H CV1 #### [address] [address] #### CBC, ADIFF, CK, ANEU, CMP, A1C, LIPID, VIDH, MG, TSH, GFR, B1WB, ZINC #### [address] [address] Total Protein 7.2 G/dL Normal 6.4-8.2 [facility] ([place]) Comment on above: Performed By: #### H CV1 #### [address] [address] #### CBC, ADIFF, CK, ANEU, CMP, A1C, LIPID, VIDH, MG, TSH, GFR, B1WB, ZINC #### [address] [address] Urea nitrogen [Mass/Vol] 10 mg/dL Normal 7-18 [facility] ([place]) Comment on above: Performed By: #### H CV1 #### [address] [address] #### CBC, ADIFF, CK, ANEU, CMP, A1C, LIPID, VIDH, MG, TSH, GFR, B1WB, ZINC #### [address] [address] Tena 04-26-2022 Ferritin [Mass/Vol] 17.0 ng/mL Normal 8.0-252.0 [facility] ([place]) Comment on above: Performed By: #### H CV1 #### [address] [address] #### CBC, ADIFF, CK, ANEU, CMP, A1C, LIPID, VIDH, MG, TSH, GFR, B1WB, ZINC #### [place] [id number] [place], [place] [address] FOLon 04-26-2022 Folate 11.20 ng/mL Normal 5.38-24.00 [facility] ([place]) Comment on above: Performed By: #### H CV1 #### [address] [address] #### CBC, ADIFF, CK, ANEU, CMP, A1C, LIPID, VIDH, MG, TSH, GFR, B1WB, ZINC #### [place] [id number] [place], [place] [address] LABORATORYOrdered By: Nir Hackett on 04-26-2022 Albumin [...] 04-26-2022 Cholesterol [Mass/Vol] 172 mg/dL Normal 0-200 [facility] ([place] Comment on above: Result Comment: Chol esterol Reference Interval: Less than 200 Desirable 200-239 Borderline high risk 240 and above High risk Performed By: #### H CV1 #### [place] [address] #### CBC, ADIFF, CK, ANEU, CMP, A1C, LIPID, VIDH, MG, TSH, GFR, B1WB, ZINC #### [address] [address] Cholesterol in HDL [Mass/Vol] 62 mg/dL High 40-60 [facility] ([place]) Comment on above: Performed By: #### H CV1 #### [place] [address] #### CBC, ADIFF, CK, ANEU, CMP, A1C, LIPID, VIDH, MG, TSH, GFR, B1WB, ZINC #### [address] [address] Cholesterol in LDL [Mass/Vol] 78 mg/dL Normal 0-130 [facility] ([place] Comment on above: Performed By: #### H CV1 #### [place] [address] #### CBC, ADIFF, CK, ANEU, CMP, A1C, LIPID, VIDH, MG, TSH, GFR, B1WB, ZINC #### [address] [address] Triglyceride [Mass/Vol] 159 mg/dL High 0-150 [facility] ([place] Comment on above: Result Comment: Trig lyceride Reference Interval: Less than 150 Normal 150-199 Borderline high risk 200-499 High risk 500 or higher Very high risk Performed By: #### H CV1 #### [place] [address] #### CBC, ADIFF, CK, ANEU, CMP, A1C, LIPID, VIDH, MG, TSH, GFR, B1WB, ZINC #### [address] [address] VIDHon 04-26-2022 Vit. D 25-Hydroxy 28.9 ng/mL Normal [facility] ([place]) Comment on above: Result Comment: Inte rpretive Values Based on Total 25(OH) Vitamin D: Deficient <20 ng/mL Insufficient 20 - <30 ng/mL Sufficient 30-100 ng/mL Performed By: #### H CV1 #### [place] [address] #### CBC, ADIFF, CK, ANEU, CMP, A1C, LIPID, VIDH, MG, TSH, GFR, B1WB, ZINC #### [address] [address] .Auto Diffon 04-15-2022 Basophil, Absolute 0.0 10 3/mcL Normal 0.0-0.2 [facility] ([place]) Comment on above: Performed By: #### A HUMBERTO CONTEH #### [address] [address] Basophils/100 WBC (Bld) 0.7 % Normal 0.0-2.5 [facility] ([place]) Comment on above: Performed By: #### HUMBERTO WADE #### [address] [address] Eosinophil, Absolute 0.2 10 3/mcL Normal 0.0-0.4 [facility] ([place]) Comment on above: Performed By: #### A HUMBERTO CONTEH #### [address] [address] Eosinophils/100 WBC (Bld) 3.1 % Normal 0.0-7.0 [facility] ([place]) Comment on above: Performed By: #### HUMBERTO WADE #### [address] [address] Lymphocyte, Absolute 1.9 10 3/mcL Normal 0.8-3.9 [facility] ([place]) Comment on above: Performed By: #### HUMBERTO WADE #### [address] [address] Lymphocytes/100 WBC (Bld) 30.5 % Normal 10.0-50.0 [facility] ([place] Comment on above: Performed By: #### A HUMBERTO CONTEH #### [address] [address] Monocyte, Absolute 0.5 10 3/mcL Normal 0.2-1.0 [facility] ([place]) Comment on above: Performed By: #### A KRISTAL CONTEHS #### [address] [address] Monocytes/100 WBC (Bld) 8.5 % Normal 1.7-13.0 [facility] ([place] Comment on above: Performed By: #### A KRISTAL CONTEHS #### [address] [address] Neutrophils/100 WBC (Bld) 57.2 % Normal 37.0-80.0 [facility] ([place] Comment on above: Performed By: #### A KRISTAL CONTEHS #### [address] [address] .GFRon 04-15-2022 GFR 77 ml/min/1.73sqm Normal [facility] ([place]) Comment on above: Result Comment: GFR Population [...] meters Performed By: #### H CV1 #### [place] [address] #### CBC, ADIFF, CK, ANEU, CMP, A1C, LIPID, VIDH, MG, TSH, GFR, B1WB, ZINC #### [address] [address] GFR Non- 64 ml/min/1.73sqm Normal [facility] ([place]) Comment on above: Result Comment: GFR Population [...] meters Performed By: #### H CV1 #### [place] [address] #### CBC, ADIFF, CK, ANEU, CMP, A1C, LIPID, VIDH, MG, TSH, GFR, B1WB, ZINC #### [address] [address] .NEUABSon 04-15-2022 Neutrophil, Absolute 3.5 10 3/mcL Normal 2.9-6.2 [facility] ([place]) Comment on above: Performed By: #### HUMBERTO WADE #### [address] [address] A1Con 04-15-2022 HbA1c (Bld) [Mass fraction] 5.4 % Normal 4.3-6.4 [facility] ([place]) Comment on above: Performed By: #### H CV1 #### [place] [id number] #### CBC, ADIFF, CK, ANEU, CMP, A1C, LIPID, VIDH, MG, TSH, GFR, B1WB, ZINC #### [address] [address] CBCon 04-15-2022 Erythrocyte distribution width (RBC) [Ratio] 12.8 % Normal 11.5-14.5 [facility] ([place] Comment on above: Performed By: #### A HUMBERTO CONTEH #### [address] [address] Hematocrit (Bld) [Volume fraction] 38.3 % Normal 37.0-47.0 [facility] ([place] Comment on above: Performed By: #### A HUMBERTO CONTEH #### [address] [address] Hgb 13.1 G/dL Normal 12.0-16.0 [facility] ([place] Comment on above: Performed By: #### A HUMBERTO CONTEH #### [address] [address] MCH (RBC) [Entitic mass] 31.4 pg High 27.0-31.2 [facility] ([place] Comment on above: Performed By: #### A HUMBERTO CONTEH #### [address] [address] MCHC 34.1 G/dL Normal 33.0-37.0 [facility] ([place] Comment on above: Performed By: #### A HUMBERTO CONTEH #### [address] [address] MCV (RBC) [Entitic vol] 92.1 fL Normal 80.0-94.0 [facility] ([place] Comment on above: Performed By: #### A HUMBERTO CONTEH #### [address] [address] Platelet 313 10 3/mcL Normal 130-400 [facility] ([place] Comment on above: Performed By: #### A HUMBERTO CONTEH #### [address] [address] Platelet mean volume (Bld) [Entitic vol] 7.3 fL Low 7.4-10.4 [facility] ([place]) Comment on above: Performed By: #### A HUMBERTO CONTEH #### [address] [address] RBC 4.16 10 6/mcL Low 4.20-5.40 [facility] ([place] Comment on above: Performed By: #### A HUMBERTO CONTEH #### [address] [address] WBC 6.1 10 3/mcL Normal 4.6-10.8 [facility] ([place] Comment on above: Performed By: #### A HUMBERTO CONTEH #### [address] [address] CMPon 04-15-2022 Albumin Level 4.2 G/dL Normal 3.5-5.0 [facility] ([place] Comment on above: Performed By: #### A HUMBERTO CONTEH #### [address] [address] Albumin/Globulin [Mass ratio] 1.4 {ratio} Normal 1.1-2.5 [facility] ([place] Comment on above: Performed By: #### A KRISTAL CONTEHS #### [address] [address] ALP [Catalytic activity/Vol] 84 U/L Normal 40-135 [facility] ([place] Comment on above: Performed By: #### A KRISTAL CONTEHS #### [address] [address] ALT [Catalytic activity/Vol] 28 U/L Normal 14-59 [facility] ([place] Comment on above: Performed By: #### A KRISTAL CONTEHS #### [address] [address] AST [Catalytic activity/Vol] 18 U/L Normal 10-40 [facility] ([place] Comment on above: Performed By: #### A KRISTAL CONTEHS #### [address] [address] Bili Total 0.3 mg/dL Normal 0.2-1.0 [facility] ([place] Comment on above: Result Comment: Use of this assay is not recommended for patients undergoing treatment with eltrombopag due to the potential for falsely elevated results. Performed By: #### A WERO TROPHS #### [address] [address] BUN/Creatinine Ratio 17 ratio Normal 7-27 [facility] ([place] Comment on above: Performed By: #### A WERO TROPHS #### [address] [address] Calcium [Mass/Vol] 9.5 mg/dL Normal 8.4-10.2 [facility] ([place]) Comment on above: Performed By: #### A WERO TROPHS #### [address] [address] Chloride [Moles/Vol] 103 mmol/L Normal 98-107 [facility] ([place] Comment on above: Performed By: #### A WERO TROPHS #### [address] [address] CO2 [Moles/Vol] 30 mmol/L High 22-29 [facility] ([place] Comment on above: Performed By: #### A KRISTAL CONTEHS #### [address] [address] Creatinine [Mass/Vol] 0.93 mg/dL Normal 0.55-1.02 [facility] ([place]) Comment on above: Performed By: #### A WERO TROPHS #### [address] [address] Electrolyte Balance 8.0 mEq/L Normal 4.0-15.0 [facility] ([place]) Comment on above: Performed By: #### A KRISTAL CONTEHS #### [address] [address] Globulin 3.1 G/dL Normal [facility] ([place] Comment on above: Performed By: #### A WERO TROPHS #### [address] [address] Glucose [Mass/Vol] 84 mg/dL Normal 70-105 [facility] ([place]) Comment on above: Performed By: #### A KRISTAL CONTEHS #### [place] [address] [place], [place] [address] Potassium [Moles/Vol] 4.9 mmol/L Normal 3.5-5.1 [facility] ([place]) Comment on above: Performed By: #### A MY, TROPHS #### [place] [address] [place], [place] [address] Sodium [Moles/Vol] 141 mmol/L Normal 136-145 [facility] ([place]) Comment on above: Performed By: #### A MY, TROPHS #### [address] [address] Total Protein 7.3 G/dL Normal 6.4-8.2 [facility] ([place] Comment on above: Performed By: #### A MY, TROPHS #### [address] [address] Urea nitrogen [Mass/Vol] 16 mg/dL Normal 7-18 [facility] ([place]) Comment on above: Performed By: #### A MY, TROPHS #### [address] [address] LABORATORYOrdered By: Paris Hernandez on 04-15-2022 Albumin [...] MAMMOGRAM DIAGNOSTIC BILATERAL W/JUMA ORIGINAL FROM: [address] [place] [address] [place], [place] [address] PROCEDURE FOR: AMANDA GRUBBS [address] [place] [address] Home: PID#: [id number] Exam#: [id number] : 1970 Age: 51 TO: FRANKY [place] [address] Fax: NO FAX EXAMINATION: DIAGNOSTIC BILATERAL MAMMOGRAM [...] FRANKY PEARSON CLINICAL: ASYMMETRIC DENSITY RIGHT BREAST. Coat Agent: JENNIFER MARTINEZ RT(R) (M) letter sent: Abnormal-Needs additional work up BI-RADS 0 Mammogram BI-RADS: 0 Indeterminate Normal [facility] ([place]) US BREAST RIGHT LIMITEDon US BREAST RIGHT LIMITED ORIGINAL FROM: [address] [address] PROCEDURE FOR: [address] [address] [place] [address] Home: PID#: [id number] Exam#: [id number] : 1970 Age: 51 TO: FRANKY PEARSON DO [address] [place] [address] Fax: NO FAX EXAMINATION: ULTRASOUND OF THE [...] Provider: FRANKY PEARSON CLINICAL: 6 MONTHS FOLLOW-UP. Coat Agent: MANUEL CHIRINOS RT,[facility] letter sent: Probably Benign BI-RADS 3 Ultrasound BI-RADS: 3 Probably benign Normal [facility] ([place]) CT THORAX W/O CONTRASTon CT THORAX W/O [...] upper lobe on image 35 is unchanged. Shaper Operator right upper lobe nodule measures 3 mm on image 20, unchanged. A renewals representative nodule along the right minor fissure [...] 12/02/2021 3:00:41 PM Ordering Provider: FRANKY PEAR[facility] ([place]) LABORATORYOrdered By: Nir Hackett on 05-22-2021 ADMITTED TO INTENSIVE CARE UNIT FOR CONDITION OF INTEREST:FIND:PT:^PAT IENT:ORD: No (05/22/21 6:52 AM) Invalid Interpretation Code AO Auto Urine SS EMPLOYED IN A HEALTHCARE SETTING:FIND:PT:^YONI ENT:ORD: No (05/22/21 6:52 AM) Invalid Interpretation Code AO Auto Urine SS FIRST TEST FOR CONDITION OF INTEREST:FIND:PT:^PAT IENT:ORD: No (05/22/21 6:52 AM) Invalid Interpretation Code AO Auto Urine SS HAS SYMPTOMS RELATED TO CONDITION OF INTEREST:FIND:PT:^PAT IENT:ORD: No (05/22/21 6:52 AM) Invalid Interpretation Code AO Auto Urine SS Illness or injury onset date and time [id number] Invalid Interpretation Code AO Auto Urine SS Patient was hospitalized because of this condition No (05/22/21 6:52 AM) Invalid Interpretation Code AO Auto Urine SS status Not (05/22/21 6:52 AM) Invalid Interpretation Code AO Auto Urine SS RESIDES IN A CONGREGATE CARE SETTING:FIND:PT:^YONI ENT:ORD: No (05/22/21 6:52 AM) Invalid Interpretation Code [...] strip (U) [Mass/Vol] Negative Invalid Interpretation Code Negativemg /dL AO Auto Urine SS HCG ( test) Ql Negative (05/22/21 4:18 AM) Invalid Interpretation Code AO Manual Urine SS Hemoglobin Auto test strip (U) [Mass/Vol] Trace *ABN* (05/22/21 4:18 AM) Invalid Interpretation Code Negative AO Auto Urine SS Ketones Ql (U) Negative Invalid Interpretation Code Negativemg /dL AO Auto Urine SS test (u) int [...] SS UA Protein Negative Invalid Interpretation Code Negativemg /dL AO Auto Urine SS UA RBC 0-5 /HPF Invalid Interpretation Code None Seen/HPF AO Auto Urine SS UA Spec Grav 1.025 (05/22/21 4:18 AM) Invalid Interpretation Code 1.015-1.02 5 AO Auto Urine SS UA Specimen Type Clean Catch (05/22/21 4:18 AM) Invalid Interpretation Code AO Auto Urine SS UA Squam Epithelial 0-5 /HPF Invalid Interpretation Code None Seen/HPF AO Auto Urine SS UA Urobilinogen 0.2 E.U./dL Invalid Interpretation Code 0.2-1.0E.U ./dL AO Auto Urine SS WBC LM.HPF (Urine sed) [#/Area] 10-15 /HPF Invalid Interpretation Code None Seen/HPF AO Auto Urine SS LABORATORYOrdered By: SYSTEM SYSTEM on 05-22-2021 GFR 100 ml/min/1.73sqm Invalid Interpretation Code AO Chemistry S GFR Non- 82 ml/min/1.73sqm Invalid Interpretation Code AO Chemistry S CORONAVIRUS 2019 BY PCRon CORONAVIRUS 2019,PCR NOT DETECTED Normal Not Detected [facility] Comment on above: Result Comment: This assay is designed to detect the ORF1ab and/or S genes of SARS-CoV-2 via nucleic acid amplification. A Not Detected result does not preclude 2019-nCoV infection since the adequacy of sample collection and/or low viral burden may result in presence of viral nucleic acids below the clinical sensitivity of this test method. Fact sheet for providers: www.fda.gov/media/614723/download Fact sheet for patients: www.fda.gov/media/424797/download This test has received FDA Emergency Use Authorization (EUA) and has been verified by [facility] ([facility]). This test is only authorized for the duration of time that circumstances exist to justify the authorization of the emergency use of in vitro diagnostic tests for the detection of SARS-CoV-2 virus and/or diagnosis of COVID-19 infection under section 564(b)(1) of the Act, 21 U.S.C. 360bbb-3(b)(1), unless the authorization is terminated or revoked sooner. [facility] is certified under CLIA-88 as qualified to perform high complexity testing. Testing is performed in the [facility] laboratories located at [address] [place] [address]. Performed By: #### C OV19 #### [address] [place] [address] Basic Metabolic Panelon - Anion gap [Moles/Vol] 8 mmol/L Normal 8-15 [facility] Comment on above: Performed By: #### B MP #### [facility] [address] [place] [address] Calcium [Mass/Vol] 9.8 mg/dL Normal 8.6-10.6 [facility] Comment on above: Performed By: #### B MP #### [facility] [address] [place] [address] Chloride [Moles/Vol] 106 mmol/L Normal 98-107 [facility] Comment on above: Performed By: #### B MP #### [facility] [address] [place] [address] CO2 [Moles/Vol] 25 mmol/L Normal 22-29 [facility] Comment on above: Performed By: #### B MP #### [facility] [address] [place] [address] Creatinine [Mass/Vol] 0.7 mg/dL Normal 0.5-1.2 [facility] Comment on above: Performed By: #### B MP #### [facility] [address] [place] [address] eGFR -Amer >=60 Normal >=60 [facility] Comment on above: Performed By: #### B MP #### [facility] [address] [place] [address] GFR/1.73 sq M predicted among non-blacks MDRD (S/P/Bld) [Vol rate/Area] mL/min/{1.73_m2} Normal >=60 [facility] Comment on above: Performed By: #### B MP #### [facility] [address] [place] [address] Glucose [Mass/Vol] 75 mg/dL Normal 74-109 [facility] Comment on above: Performed By: #### B MP #### [facility] [address] [place] [address] Potassium [Moles/Vol] 4.7 mmol/L Normal 3.4-5.1 [facility] Comment on above: Performed By: #### B MP #### [facility] [address] [place] [address] Sodium [Moles/Vol] 139 mmol/L Normal 136-145 [facility] Comment on above: Performed By: #### B MP #### [facility] [address] [place] [address] Urea nitrogen [Mass/Vol] 11 mg/dL Normal 6-23 [facility] Comment on above: Performed By: #### B MP #### [facility] [address] [place] [address] CBC with Diffon 02-02-2020 Basophils (Bld) [#/Vol] 0.0 x(10)3/cumm Normal 0.0-0.1 [facility] Comment on above: Performed By: #### C BCDIFF #### [facility] [address] [place] [address] Basophils/100 WBC (Bld) 0.6 % Normal 0.0-1.0 [facility] Comment on above: Performed By: #### C BCDIFF #### [facility] [address] [place] [address] Eosinophils (Bld) [#/Vol] 0.1 x(10)3/cumm Normal 0.0-0.4 [facility] Comment on above: Performed By: #### C BCDIFF #### [facility] [address] [place] [address] Eosinophils/100 WBC (Bld) 1.9 % Normal 0.0-6.1 [facility] Comment on above: Performed By: #### C BCDIFF #### [facility] [address] [place] [address] Erythrocyte distribution width (RBC) [Ratio] 13.0 % Normal 11.1-15.3 [facility] Comment on above: Performed By: #### C BCDIFF #### [facility] [address] [place] [address] Hematocrit (Bld) [Volume fraction] 39.1 % Normal 34.6-45.0 [facility] Comment on above: Performed By: #### C BCDIFF #### [facility] [address] [place] [address] Hemoglobin (Bld) [Mass/Vol] 13.4 g/dL Normal 11.5-15.5 [facility] Comment on above: Performed By: #### C BCDIFF #### [facility] [address] [place] [address] Lymphocytes (Bld) [#/Vol] 1.6 x(10)3/cumm Normal 0.8-2.9 [facility] Comment on above: Performed By: #### C BCDIFF #### [facility] [address] [place] [address] Lymphocytes/100 WBC (Bld) 34.2 % Normal 12.2-42.6 [facility] Comment on above: Performed By: #### C BCDIFF #### [facility] [address] [place] [address] MCH (RBC) [Entitic mass] 32.7 pg Normal 27.2-33.6 [facility] Comment on above: Performed By: #### C BCDIFF #### [facility] [address] [place] [address] MCHC (RBC) [Mass/Vol] 34.3 g/dL Normal 32.9-35.3 [facility] Comment on above: Performed By: #### C BCDIFF #### [facility] [address] [place] [address] MCV (RBC) [Entitic vol] 95.5 fL Normal 81.3-96.7 [facility] Comment on above: Performed By: #### C BCDIFF #### [facility] [address] [place] [address] Monocytes (Bld) [#/Vol] 0.4 x(10)3/cumm Normal 0.2-0.8 [facility] Comment on above: Performed By: #### C BCDIFF #### [facility] [address] [place] [address] Monocytes/100 WBC (Bld) 8.4 % Normal 3.3-11.6 [facility] Comment on above: Performed By: #### C BCDIFF #### [facility] [address] [place] [address] Neutrophils (Bld) [#/Vol] 2.6 x(10)3/cumm Normal 1.3-7.4 [facility] Comment on above: Performed By: #### C BCDIFF #### [facility] [address] [place] [address] Neutrophils/100 WBC (Bld) 54.9 % Normal 44.9-78.8 [facility] Comment on above: Performed By: #### C BCDIFF #### [facility] [address] [place] [address]645 Platelet mean volume (Bld) [Entitic vol] 8.2 fL Normal 6.4-10.0 [facility] Comment on above: Performed By: #### C BCDIFF #### [facility] [address] [place] [address] 06838 Platelets (Bld) [#/Vol] 245 x(10)3/cumm Normal 138-367 [facility] Comment on above: Performed By: #### C BCDIFF #### [facility] [address] [place] [address] [facility] Comment on above: Performed By: #### C BCDIFF #### [facility] [address] [place] [address] 98869 RBC (Bld) [#/Vol] 4.09 X(10)6/cumm Normal 3.90-5.10 [facility] Comment on above: Performed By: #### C BCDIFF #### [facility] [address] [place], [place] [id number] RBC Morph cont Normal [facility] Comment on above: Performed By: #### C BCDIFF #### [facility] [address] [place] [address] 76350 RBC morphology finding Nom (Bld) Normal [facility] Comment on above: Performed By: #### C BCDIFF #### [facility] [address] [place] [address] 11568 WBC (Bld) [#/Vol] 4.7 x(10)3/cumm Normal 3.6-10.3 [facility] Comment on above: Performed By: #### C BCDIFF #### [facility] [address] [place] [address] [facility] Comment on above: Performed By: #### C BCDIFF #### [facility] [address] [place] [address] 19721 CORONAVIRUS 2019 BY PCRon Lab Specimen Source Nasal, Nasopharyngeal Normal [facility] Comment on above: Performed By: #### C OV19 #### [facility] [address] [place] [address] COVID-19 by PCR ()on 02-01 Coronavirus 2019 PCR Not Detected Normal Not Detected [facility] Comment on above: Order Comment: Nasal swab in Saline, Jose M opharyngeal or Oropharyngeal in viral transport media or saline Performed By: #### C OVUH #### [place] [address] Performing Lab Testing performed by : [facility] [address] [place] [address] CLIA # [id number] [facility] Comment on above: Order Comment: Nasal swab in Saline, Jose M opharyngeal or Oropharyngeal in viral transport media or saline Performed By: #### C OVUH #### [place] [address] Specimen source Nom (Unsp spec) Nasal, PARTS PERSON [facility] Comment on above: Order Comment: Nasal swab in Saline, Jose M opharyngeal or Oropharyngeal in viral transport media or saline Performed By: #### C OVUH #### [place] [address] CR Finger(s) Min 2 Views [place] ateralon 01-02-2019 CR Finger(s) Min 2 Views Bilateral Patient Name: AMANDA GRUBBS Diagnostic Radiology Exam Date/Time 01/02/2019 08:01:00 EDT Exam CR Finger(s) Min 2 Views Ordering Physician MD ROLAN, ANNIE Cooley Accession Number [id number] CPT4 Codes 93599 () Reason For Exam PAIN Report Right finger three views HISTORY: Pain Three views of the fifth digit are submitted for interpretation. No fracture or dislocation. No significant degenerative changes. IMPRESSION: Normal examination. Report Dictated on Final Dictating Physician: MD CARRILLO MALAY Signed Date and Time: 01/02/2019 11:20 am Signed by: MD CARRILLO MALAY Transcribed Date and Time: 01/02/2019 11:21 Normal [facility] CR Finger(s) Min 2 Views [place] 01-02-2019 CR Finger(s) Min 2 Views Right Patient Name: AMANDA GRUBBS Diagnostic Radiology Exam Date/Time 01/02/2019 08:01:18 EDT Exam CR Finger(s) Min 2 Views Right Ordering Physician MD ROLAN, ANNIE Cooley Accession Number [id number] Reason For Exam 5th digit pain Report Right finger three views HISTORY: Pain Three views of the fifth digit are submitted for interpretation. No fracture or dislocation. No significant degenerative changes. IMPRESSION: Normal examination. Report Dictated on Final Dictating Physician: MD CARRILLO MALAY Signed Date and Time: 01/02/2019 11:20 am Signed by: MD CARRILLO MALAY Transcribed Date and Time: 01/21/2019 8:27 Normal [facility] Basic Metabolic Panelon 10-3 Calcium mass conc 8.4 mg/dL Normal 8.4-10.4 [facility] Comment on above: Performed By: #### H A1C2, HEMOG, ALB3, BMP3 ####[facility] [place] [address] Anion gap 3 molar conc 7 Normal [facility] Comment on above: Performed By: #### H A1C2, HEMOG, ALB3, BMP3 ####[place] [address] [place] [address] CO2 molar conc 23 mmol/L Normal 22-30 [facility] Comment on above: Performed By: #### H A1C2, HEMOG, ALB3, BMP3 ####[facility] [place] [address] Creatinine mass conc 0.86 mg/dL Normal 0.52-1.25 [facility] Comment on above: Performed By: #### H A1C2, HEMOG, ALB3, BMP3 ####[facility] [place] [address] GFR/1.73 sq M predicted among blacks MDRD vol rate/area (S/P/Bld) mL/min/{1.73_m2} Normal >60 [facility] Comment on above: Performed By: #### H A1C2, HEMOG, ALB3, BMP3 ####[facility] [id number] [place], [place] GFR/1.73 sq M predicted among non-blacks MDRD vol rate/area (S/P/Bld) mL/min/{1.73_m2} Normal >60 [facility] Comment on above: Result Comment: Sour ce- MDRD equation with creatinine calibration to IDMS(NKDEP) eGFR not recommended for drug dose adjustment Performed By: #### H A1C2, HEMOG, ALB3, BMP3 ####[facility] [id number] [place], [place] Glucose mass conc 107 mg/dL High 70-100 [facility] Comment on above: Performed By: #### H A1C2, HEMOG, ALB3, BMP3 ####[facility] [id number] [place], [place] Urea nitrogen mass conc 11 mg/dL Normal 7-20 [facility] Comment on above: Performed By: #### H A1C2, HEMOG, ALB3, BMP3 ####[facility] [id number] [place], [place] Chloride molar conc 108 mmol/L High 98-107 [facility] Comment on above: Performed By: #### H A1C2, HEMOG, ALB3, BMP3 ####[facility] [id number] [place], [place] Potassium molar conc 4.1 mmol/L Normal 3.5-5.1 [facility] Comment on above: Performed By: #### H A1C2, HEMOG, ALB3, BMP3 ####[facility] [id number] [place], [place] Sodium molar conc 138 mmol/L Normal 137-145 [facility] Comment on above: Performed By: #### H A1C2, HEMOG, ALB3, BMP3 ####[facility] [address] [place], [place] Hemogram w/ Autodiffon 04-10 Abs Baso Cnt 0.0 10*3/uL Normal 0.0-0.2 [facility] Comment on above: Performed By: #### H A1C2, HEMOG, ALB3, BMP3 ####[address] Abs Neutrophile Cnt 7.7 10*3/uL High 1.8-7.0 [facility] Comment on above: Performed By: #### H A1C2, HEMOG, ALB3, BMP3 ####[address] Basophils/100 WBC Auto (Bld) 0.2 % Normal 0.0-2.0 [facility] Comment on above: Performed By: #### H A1C2, HEMOG, ALB3, BMP3 ####[address] Eosinophils Auto #/vol (Bld) 0.0 10*3/uL Normal 0.0-0.5 [facility] Comment on above: Performed By: #### H A1C2, HEMOG, ALB3, BMP3 ####[address] Eosinophils/100 WBC Auto (Bld) 0.1 % Low 1.0-6.0 [facility] Comment on above: Performed By: #### H A1C2, HEMOG, ALB3, BMP3 ####[address] Erythrocyte distribution width Auto Ratio (RBC) 13.4 % Normal 11.5-14.5 [facility] Comment on above: Performed By: #### H A1C2, HEMOG, ALB3, BMP3 ####[address] Granulocytes/100 WBC (Bld) 74.9 % Normal 40.0-80.0 [facility] Comment on above: Performed By: #### H A1C2, HEMOG, ALB3, BMP3 ####[address] Hematocrit Auto Volume Fraction (Bld) 32.0 % Low 35.0-47.0 [facility] Comment on above: Performed By: #### H A1C2, HEMOG, ALB3, BMP3 ####[address] Hemoglobin mass conc (Bld) 10.9 g/dL Low 11.7-16.0 [facility] Comment on above: Performed By: #### H A1C2, HEMOG, ALB3, BMP3 ####[address] Lymphocytes Auto #/vol (Bld) 2.0 10*3/uL Normal 1.0-4.3 [facility] Comment on above: Performed By: #### H A1C2, HEMOG, ALB3, BMP3 ####[address] Lymphocytes/100 WBC Auto (Bld) 19.7 % Low 20.0-40.0 [facility] Comment on above: Performed By: #### H A1C2, HEMOG, ALB3, BMP3 ####[address] MCH Auto Entitic mass (RBC) 32.1 pg Normal 26.0-34.0 [facility] Comment on above: Performed By: #### H A1C2, HEMOG, ALB3, BMP3 ####[address] MCHC Auto mass conc (RBC) 34.2 % Normal 32.0-36.0 [facility] Comment on above: Performed By: #### H A1C2, HEMOG, ALB3, BMP3 ####[address] MCV Auto Entitic volume (RBC) 94.0 fL Normal 79.0-98.0 [facility] Comment on above: Performed By: #### H A1C2, HEMOG, ALB3, BMP3 ####[address] Monocytes Auto #/vol (Bld) 0.5 10*3/uL Normal 0.0-0.8 [facility] Comment on above: Performed By: #### H A1C2, HEMOG, ALB3, BMP3 ####[place] [address] . [place], [place] Monocytes/100 WBC Auto (Bld) 5.1 % Normal 2.0-10.0 [facility] Comment on above: Performed By: #### H A1C2, HEMOG, ALB3, BMP3 ####[address] Platelet mean volume Auto Entitic volume (Bld) 7.9 fL Normal 7.4-10.4 [facility] Comment on above: Performed By: #### H A1C2, HEMOG, ALB3, BMP3 ####[address] Platelets Auto #/vol (Bld) 248 10*3/uL Normal 140-440 [facility] Comment on above: Performed By: #### H A1C2, HEMOG, ALB3, BMP3 ####[address] RBC Auto #/vol (Bld) 3.40 10*6/uL Low 3.80-5.20 [facility] Comment on above: Performed By: #### H A1C2, HEMOG, ALB3, BMP3 ####[address] WBC Auto #/vol (Bld) 10.3 10*3/uL Normal 3.6-10.7 [facility] Comment on above: Performed By: #### H A1C2, HEMOG, ALB3, BMP3 ####[address] Magnesiumon 04-10-2018 Magnesium mass conc 2.5 mg/dL High 1.6-2.3 [facility] Comment on above: Performed By: #### H A1C2, HEMOG, ALB3, BMP3 ####[address] Phosphoruson 04-10-2018 Phosphate mass conc 3.3 mg/dL Normal 2.5-4.5 [facility] Comment on above: Performed By: #### H A1C2, HEMOG, ALB3, BMP3 ####[place] [address] [place] [address] Basic Metabolic Panelon 03-13 Anion gap 3 molar conc 14 Normal [facility] Comment on above: Performed By: #### H A1C2, HEMOG, ALB3, BMP3 ####[place] [address] [place] [address] Calcium mass conc 8.6 mg/dL Normal 8.4-10.4 [facility] Comment on above: Performed By: #### H A1C2, HEMOG, ALB3, BMP3 ####[place] [address] [place] [address] CO2 molar conc 20 mmol/L Low 22-30 [facility] Comment on above: Performed By: #### H A1C2, HEMOG, ALB3, BMP3 ####[place] [address] [place] [address] Glucose mass conc 210 mg/dL High 70-100 [facility] Comment on above: Performed By: #### H A1C2, HEMOG, ALB3, BMP3 ####[place] [address] [place] [address] Urea nitrogen mass conc 14 mg/dL Normal 7-20 [facility] Comment on above: Performed By: #### H A1C2, HEMOG, ALB3, BMP3 ####[place] [address] [place] [address] Creatinine mass conc 0.85 mg/dL Normal 0.52-1.25 [facility] Comment on above: Performed By: #### H A1C2, HEMOG, ALB3, BMP3 ####[place] [address] [place] [address] GFR/1.73 sq M predicted among blacks MDRD vol rate/area (S/P/Bld) mL/min/{1.73_m2} Normal >60 [facility] Comment on above: Performed By: #### H A1C2, HEMOG, ALB3, BMP3 ####[place] [address] [place], [place] GFR/1.73 sq M predicted among non-blacks MDRD vol rate/area (S/P/Bld) mL/min/{1.73_m2} Normal >60 [facility] Comment on above: Result Comment: Sour ce- MDRD equation with creatinine calibration to IDMS(NKDEP) eGFR not recommended for drug dose adjustment Performed By: #### H A1C2, HEMOG, ALB3, BMP3 ####[address] Potassium molar conc 4.1 mmol/L Normal 3.5-5.1 [facility] Comment on above: Performed By: #### H A1C2, HEMOG, ALB3, BMP3 ####[address] Sodium molar conc 138 mmol/L Normal 137-145 [facility] Comment on above: Performed By: #### H A1C2, HEMOG, ALB3, BMP3 ####[address] Chloride molar conc 104 mmol/L Normal 98-107 [facility] Comment on above: Performed By: #### H A1C2, HEMOG, ALB3, BMP3 ####[address] Hemogram w/ Autodiffon 04-09 Abs Baso Cnt 0.0 10*3/uL Normal 0.0-0.2 [facility] Comment on above: Performed By: #### H A1C2, HEMOG, ALB3, BMP3 ####[address] Abs Neutrophile Cnt 12.0 10*3/uL High 1.8-7.0 [facility] Comment on above: Performed By: #### H A1C2, HEMOG, ALB3, BMP3 ####[address] Basophils/100 WBC Auto (Bld) 0.2 % Normal 0.0-2.0 [facility] Comment on above: Performed By: #### H A1C2, HEMOG, ALB3, BMP3 ####[address] Eosinophils Auto #/vol (Bld) 0.0 10*3/uL Normal 0.0-0.5 [facility] Comment on above: Performed By: #### H A1C2, HEMOG, ALB3, BMP3 ####[address] Eosinophils/100 WBC Auto (Bld) 0.0 % Low 1.0-6.0 [facility] Comment on above: Performed By: #### H A1C2, HEMOG, ALB3, BMP3 ####[address] Erythrocyte distribution width Auto Ratio (RBC) 13.3 % Normal 11.5-14.5 [facility] Comment on above: Performed By: #### H A1C2, HEMOG, ALB3, BMP3 ####[address] Granulocytes/100 WBC (Bld) 91.6 % High 40.0-80.0 [facility] Comment on above: Performed By: #### H A1C2, HEMOG, ALB3, BMP3 ####[address] Hematocrit Auto Volume Fraction (Bld) 38.4 % Normal 35.0-47.0 [facility] Comment on above: Performed By: #### H A1C2, HEMOG, ALB3, BMP3 ####[address] Hemoglobin mass conc (Bld) 13.0 g/dL Normal 11.7-16.0 [facility] Comment on above: Performed By: #### H A1C2, HEMOG, ALB3, BMP3 ####[address] Lymphocytes Auto #/vol (Bld) 0.6 10*3/uL Low 1.0-4.3 [facility] Comment on above: Performed By: #### H A1C2, HEMOG, ALB3, BMP3 ####[address] Lymphocytes/100 WBC Auto (Bld) 4.8 % Low 20.0-40.0 [facility] Comment on above: Performed By: #### H A1C2, HEMOG, ALB3, BMP3 ####[address] MCH Auto Entitic mass (RBC) 31.8 pg Normal 26.0-34.0 [facility] Comment on above: Performed By: #### H A1C2, HEMOG, ALB3, BMP3 ####[address] MCHC Auto mass conc (RBC) 33.9 % Normal 32.0-36.0 [facility] Comment on above: Performed By: #### H A1C2, HEMOG, ALB3, BMP3 ####[address] MCV Auto Entitic volume (RBC) 93.7 fL Normal 79.0-98.0 [facility] Comment on above: Performed By: #### H A1C2, HEMOG, ALB3, BMP3 ####[address] Monocytes Auto #/vol (Bld) 0.5 10*3/uL Normal 0.0-0.8 [facility] Comment on above: Performed By: #### H A1C2, HEMOG, ALB3, BMP3 ####[address] Monocytes/100 WBC Auto (Bld) 3.4 % Normal 2.0-10.0 [facility] Comment on above: Performed By: #### H A1C2, HEMOG, ALB3, BMP3 ####[address] Platelet mean volume Auto Entitic volume (Bld) 8.1 fL Normal 7.4-10.4 [facility] Comment on above: Performed By: #### H A1C2, HEMOG, ALB3, BMP3 ####[facility] [id number] [place], [place] Platelets Auto #/vol (Bld) 299 10*3/uL Normal 140-440 [facility] Comment on above: Performed By: #### H A1C2, HEMOG, ALB3, BMP3 ####[facility] [id number] [place], [place] RBC Auto #/vol (Bld) 4.09 10*6/uL Normal 3.80-5.20 [facility] Comment on above: Performed By: #### H A1C2, HEMOG, ALB3, BMP3 ####[facility] [id number] [place], [place] WBC Auto #/vol (Bld) 13.1 10*3/uL High 3.6-10.7 [facility] Comment on above: Performed By: #### H A1C2, HEMOG, ALB3, BMP3 ####[facility] [address] [place], [place] Magnesiumon 04-09-2018 Magnesium mass conc 2.2 mg/dL Normal 1.6-2.3 [facility] Comment on above: Performed By: #### H A1C2, HEMOG, ALB3, BMP3 ####[facility] [id number] [place], [place] Phosphoruson 04-09-2018 Phosphate mass conc 2.3 mg/dL Low 2.5-4.5 [facility] Comment on above: Performed By: #### H A1C2, HEMOG, ALB3, BMP3 ####[facility] [id number] . [place], [place] RF UGI w/o KUB w/ or w/o Del ay Flmon 04-09-2018 RF UGI w/o KUB w/ or w/o Delay Fl Patient Name: AMANDA GRUBBS Fluoroscopy Exam Date/Time 04/09/2018 08:17:29 EDT Exam RF UGI w/o KUB and w/ or w/o Delay Flm Ordering Physician MD TRUONG NICHOLAS Accession Number [id number] CTP4 Codes 80279 () Reason For Exam bariatric surgery. gastrograffin. [...] Transcribed Date and Time: 04/09/2018 8:37 Normal [facility] Basic Metabolic Panelon 10-2 Calcium mass conc 8.8 mg/dL Normal 8.4-10.4 [facility] Comment on above: Performed By: #### H EMDF, MG3, BMP3, PHOS3, ICA ####[facility] [address] [place] [address] Anion gap 3 molar conc 12 Normal [facility] Comment on above: Performed By: #### H EMDF, MG3, BMP3, PHOS3, ICA ####[facility] [address] [place] [address] CO2 molar conc 23 mmol/L Normal 22-30 [facility] Comment on above: Performed By: #### H EMDF, MG3, BMP3, PHOS3, ICA ####[facility] [address] [place], [place] Glucose mass conc 201 mg/dL High 70-100 [facility] Comment on above: Performed By: #### H EMDF, MG3, BMP3, PHOS3, ICA ####[facility] [id number] [place], [place] Urea nitrogen mass conc 13 mg/dL Normal 7-20 [facility] Comment on above: Performed By: #### H EMDF, MG3, BMP3, PHOS3, ICA ####[place] [address] [place], [place] Creatinine mass conc 0.96 mg/dL Normal 0.52-1.25 [facility] Comment on above: Performed By: #### H EMDF, MG3, BMP3, PHOS3, ICA ####[facility] [id number] [place], [place] GFR/1.73 sq M predicted among blacks MDRD vol rate/area (S/P/Bld) mL/min/{1.73_m2} Normal >60 [facility] Comment on above: Performed By: #### H EMDF, MG3, BMP3, PHOS3, ICA ####[place] [place], [place] GFR/1.73 sq M predicted among non-blacks MDRD vol rate/area (S/P/Bld) mL/min/{1.73_m2} Normal >60 [facility] Comment on above: Result Comment: Sour ce- MDRD equation with creatinine calibration to IDMS(NKDEP) eGFR not recommended for drug dose adjustment Performed By: #### H EMDF, MG3, BMP3, PHOS3, ICA ####[place] [address] [place], [place] Chloride molar conc 102 mmol/L Normal 98-107 [facility] Comment on above: Performed By: #### H EMDF, MG3, BMP3, PHOS3, ICA ####[address] Potassium molar conc 3.9 mmol/L Normal 3.5-5.1 [facility] Comment on above: Performed By: #### H EMDF, MG3, BMP3, PHOS3, ICA ####[address] Sodium molar conc 138 mmol/L Normal 137-145 [facility] Comment on above: Performed By: #### H EMDF, MG3, BMP3, PHOS3, ICA ####[address] Calcium,Ionizedon 04-08-2018 Ionized Ca,Measured 4.30 mg/dL Normal 4.30-5.20 [facility] Comment on above: Performed By: #### H A1C2, HEMOG, ALB3, BMP3 ####[address] pH, Ionized Calcium 7.29 Low 7.31-7.46 [facility] Comment on above: Performed By: #### H A1C2, HEMOG, ALB3, BMP3 ####[address] Hemogram w/ Autodiffon 04-08 Abs Baso Cnt 0.0 10*3/uL Normal 0.0-0.2 [facility] Comment on above: Performed By: #### H EMDF, MG3, BMP3, PHOS3, ICA ####[address] Abs Neutrophile Cnt 10.7 10*3/uL High 1.8-7.0 [facility] Comment on above: Performed By: #### H EMDF, MG3, BMP3, PHOS3, ICA ####[address] Basophils/100 WBC Auto (Bld) 0.1 % Normal 0.0-2.0 [facility] Comment on above: Performed By: #### H EMDF, MG3, BMP3, PHOS3, ICA ####[place] [place] [place], [place] Eosinophils Auto #/vol (Bld) 0.0 10*3/uL Normal 0.0-0.5 [facility] Comment on above: Performed By: #### H EMDF, MG3, BMP3, PHOS3, ICA ####[address] Eosinophils/100 WBC Auto (Bld) 0.1 % Low 1.0-6.0 [facility] Comment on above: Performed By: #### H EMDF, MG3, BMP3, PHOS3, ICA ####[address] Erythrocyte distribution width Auto Ratio (RBC) 13.3 % Normal 11.5-14.5 [facility] Comment on above: Performed By: #### H EMDF, MG3, BMP3, PHOS3, ICA ####[address] Granulocytes/100 WBC (Bld) 88.5 % High 40.0-80.0 [facility] Comment on above: Performed By: #### H EMDF, MG3, BMP3, PHOS3, ICA ####[address] Hematocrit Auto Volume Fraction (Bld) 41.9 % Normal 35.0-47.0 [facility] Comment on above: Performed By: #### H EMDF, MG3, BMP3, PHOS3, ICA ####[address] Hemoglobin mass conc (Bld) 14.0 g/dL Normal 11.7-16.0 [facility] Comment on above: Performed By: #### H EMDF, MG3, BMP3, PHOS3, ICA ####[address] Lymphocytes Auto #/vol (Bld) 1.1 10*3/uL Normal 1.0-4.3 [facility] Comment on above: Performed By: #### H EMDF, MG3, BMP3, PHOS3, ICA ####[address] [place], [place] Lymphocytes/100 WBC Auto (Bld) 9.2 % Low 20.0-40.0 [facility] Comment on above: Performed By: #### H EMDF, MG3, BMP3, PHOS3, ICA ####[address] MCH Auto Entitic mass (RBC) 31.5 pg Normal 26.0-34.0 [facility] Comment on above: Performed By: #### H EMDF, MG3, BMP3, PHOS3, ICA ####[address] MCHC Auto mass conc (RBC) 33.4 % Normal 32.0-36.0 [facility] Comment on above: Performed By: #### H EMDF, MG3, BMP3, PHOS3, ICA ####[address] MCV Auto Entitic volume (RBC) 94.2 fL Normal 79.0-98.0 [facility] Comment on above: Performed By: #### H EMDF, MG3, BMP3, PHOS3, ICA ####[address] Monocytes Auto #/vol (Bld) 0.3 10*3/uL Normal 0.0-0.8 [facility] Comment on above: Performed By: #### H EMDF, MG3, BMP3, PHOS3, ICA ####[address] Monocytes/100 WBC Auto (Bld) 2.1 % Normal 2.0-10.0 [facility] Comment on above: Performed By: #### H EMDF, MG3, BMP3, PHOS3, ICA ####[address] Platelet mean volume Auto Entitic volume (Bld) 7.8 fL Normal 7.4-10.4 [facility] Comment on above: Performed By: #### H EMDF, MG3, BMP3, PHOS3, ICA ####[facility] [id number] . [place], [place] Platelets Auto #/vol (Bld) 293 10*3/uL Normal 140-440 [facility] Comment on above: Performed By: #### H EMDF, MG3, BMP3, PHOS3, ICA ####[facility] [address] . [place], [place] RBC Auto #/vol (Bld) 4.45 10*6/uL Normal 3.80-5.20 [facility] Comment on above: Performed By: #### H EMDF, MG3, BMP3, PHOS3, ICA ####[facility] [id number] [place], [place] WBC Auto #/vol (Bld) 12.1 10*3/uL High 3.6-10.7 [facility] Comment on above: Performed By: #### H EMDF, MG3, BMP3, PHOS3, ICA ####[facility] [id number] [place], [place] Magnesiumon 04-08-2018 Magnesium mass conc 2.5 mg/dL High 1.6-2.3 [facility] Comment on above: Performed By: #### H EMDF, MG3, BMP3, PHOS3, ICA ####[facility] [id number] . [place], [place] Phosphoruson 04-08-2018 Phosphate mass conc 4.5 mg/dL Normal 2.5-4.5 [facility] Comment on above: Performed By: #### H EMDF, MG3, BMP3, PHOS3, ICA ####[facility] [address] [place], [place] Surgical Pathologyon 018 Surgical Pathology [id number] [facility] PATHOLOGY AND LABORATORY MEDICINE [address] [place] [address] FINAL SURGICAL PATHOLOGY REPORT NAM E: AMANDA GRUBBS .O.B.: 1970 47 Y F BILLING NO.: [id number] PROCEDURE 04/08/2018 DATE:SURGEON: ROLAN [...] of the biopsy. Steatohepatitis is not identified.SMT/BETHANIE S FRANKY JAMES M.D. CLIN[facility] BETHANIE INFORMATION: Morbid obesitySPECIMEN: LIVER NEEDLE OR WEDGE BIOPSY, MEDICAL GR OSS DESCRIPTION:Liver biopsyReceived in formalin are two, red-grant to yellow-grant tissue segments 0.5and 0.9 cm. Submitted in toto. (2 ns, 1) RADHA/MELONIEisclaimer: The following statement applies to allimmunohistochemistry, in situ hybridization, molecular studies, andimmunofluorescence testing.The use of one or more reagents in the above tests is regulated as ananalyte specific reagent (ASR). These tests were developed and theirperformance characteristics determined by the clinical laboratories [facility]. They have not been cleared by [...] false negativity on decalcified specimens.Professional Performing Location: [address] [place] [address]. DEPARTMENT OF PATHOLOGY AND LABORATORY MEDICINE [place], [place] [address] Normal [facility] Basic Metabolic Panelon 10-2 Anion gap 3 molar conc 10 Normal [facility] Comment on above: Performed By: #### B MP3 ####[address] [place] [address] Calcium mass conc 10.0 mg/dL Normal 8.4-10.4 [facility] Comment on above: Performed By: #### B MP3 ####[address] [place] [address] CO2 molar conc 26 mmol/L Normal 22-30 [facility] Comment on above: Performed By: #### B MP3 ####[address] [address] Glucose mass conc 89 mg/dL Normal 70-100 [facility] Comment on above: Performed By: #### B MP3 ####[address] [place] [address] Urea nitrogen mass conc 18 mg/dL Normal 7-20 [facility] Comment on above: Performed By: #### B MP3 ####[address] [facility] [address] Creatinine mass conc 0.82 mg/dL Normal 0.52-1.25 [facility] Comment on above: Performed By: #### B MP3 ####[address] [place] [address] GFR/1.73 sq M predicted among blacks MDRD vol rate/area (S/P/Bld) mL/min/{1.73_m2} Normal >60 [facility] Comment on above: Performed By: #### B MP3 ####[address] [place] [address] GFR/1.73 sq M predicted among non-blacks MDRD vol rate/area (S/P/Bld) mL/min/{1.73_m2} Normal >60 [facility] Comment on above: Result Comment: Sour ce- MDRD equation with creatinine calibration to IDMS(NKDEP) eGFR not recommended for drug dose adjustment Performed By: #### B MP3 ####[address] [place] [address] Chloride molar conc 103 mmol/L Normal 98-107 [facility] Comment on above: Performed By: #### B MP3 ####[address] [place] [address] Potassium molar conc 4.9 mmol/L Normal 3.5-5.1 [facility] Comment on above: Performed By: #### B MP3 ####[address] [place] [address] Sodium molar conc 139 mmol/L Normal 137-145 [facility] Comment on above: Performed By: #### B MP3 ####[address] [place] [address] Albumin, Serumon 03-14-2018 Albumin mass conc 4.7 g/dL Normal 3.5-5.0 [facility] Comment on above: Performed By: #### H A1C2, HEMOG, ALB3, BMP3 ####[address] [place], [place] Basic Metabolic Panelon 10-0 Anion gap 3 molar conc 11 Normal [facility] Comment on above: Performed By: #### H A1C2, HEMOG, ALB3, BMP3 ####[address] [place], [place] Calcium mass conc 10.1 mg/dL Normal 8.4-10.4 [facility] Comment on above: Performed By: #### H A1C2, HEMOG, ALB3, BMP3 ####[address] [place], [place] CO2 molar conc 27 mmol/L Normal 22-30 [facility] Comment on above: Performed By: #### H A1C2, HEMOG, ALB3, BMP3 ####[address] [place], [place] Glucose mass conc 90 mg/dL Normal 70-100 [facility] Comment on above: Performed By: #### H A1C2, HEMOG, ALB3, BMP3 ####[address] [place], [place] Urea nitrogen mass conc 12 mg/dL Normal 7-20 [facility] Comment on above: Performed By: #### H A1C2, HEMOG, ALB3, BMP3 ####[address] [place], [place] Creatinine mass conc 0.83 mg/dL Normal 0.52-1.25 [facility] Comment on above: Performed By: #### H A1C2, HEMOG, ALB3, BMP3 ####[address] [place], [place] GFR/1.73 sq M predicted among blacks MDRD vol rate/area (S/P/Bld) mL/min/{1.73_m2} Normal >60 [facility] Comment on above: Performed By: #### H A1C2, HEMOG, ALB3, BMP3 ####[address] [place] [address] GFR/1.73 sq M predicted among non-blacks MDRD vol rate/area (S/P/Bld) mL/min/{1.73_m2} Normal >60 [facility] Comment on above: Result Comment: Sour ce- MDRD equation with creatinine calibration to IDMS(NKDEP) eGFR not recommended for drug dose adjustment Performed By: #### H A1C2, HEMOG, ALB3, BMP3 ####[address] [place] [address] Chloride molar conc 102 mmol/L Normal 98-107 [facility] Comment on above: Performed By: #### H A1C2, HEMOG, ALB3, BMP3 ####[address] [place] [address] Potassium molar conc 4.7 mmol/L Normal 3.5-5.1 [facility] Comment on above: Performed By: #### H A1C2, HEMOG, ALB3, BMP3 ####[address] [address] Sodium molar conc 140 mmol/L Normal 137-145 [facility] Comment on above: Performed By: #### H A1C2, HEMOG, ALB3, BMP3 ####[address] [address] Hemoglobin A1Con 03-14-2018 Glucose mass conc 120 mg/dL Normal [facility] Comment on above: Performed By: #### H A1C2, HEMOG, ALB3, BMP3 ####[address] [place] [address] Hemoglobin A1c/Hemoglobin.total mass fraction (Bld) 5.8 % High 4.0-5.7 [facility] Comment on above: Result Comment: --Hg bA1C levels may not be accurate in patients who haverenal disease, received recent blood transfusions, are anemic,or who have dyshemoglobinemia. Performed By: #### H A1C2, HEMOG, ALB3, BMP3 ####[address] Hemogramon 03-14-2018 Erythrocyte distribution width Auto Ratio (RBC) 13.3 % Normal 11.5-14.5 [facility] Comment on above: Performed By: #### H A1C2, HEMOG, ALB3, BMP3 ####[address] [place], [place] Hematocrit Auto Volume Fraction (Bld) 38.9 % Normal 35.0-47.0 [facility] Comment on above: Performed By: #### H A1C2, HEMOG, ALB3, BMP3 ####[address] Hemoglobin mass conc (Bld) 13.2 g/dL Normal 11.7-16.0 [facility] Comment on above: Performed By: #### H A1C2, HEMOG, ALB3, BMP3 ####[address] MCH Auto Entitic mass (RBC) 31.9 pg Normal 26.0-34.0 [facility] Comment on above: Performed By: #### H A1C2, HEMOG, ALB3, BMP3 ####[address] MCHC Auto mass conc (RBC) 34.0 % Normal 32.0-36.0 [facility] Comment on above: Performed By: #### H A1C2, HEMOG, ALB3, BMP3 ####[address] MCV Auto Entitic volume (RBC) 93.9 fL Normal 79.0-98.0 [facility] Comment on above: Performed By: #### H A1C2, HEMOG, ALB3, BMP3 ####[address] Platelet mean volume Auto Entitic volume (Bld) 7.9 fL Normal 7.4-10.4 [facility] Comment on above: Performed By: #### H A1C2, HEMOG, ALB3, BMP3 ####[address] Platelets Auto #/vol (Bld) 304 10*3/uL Normal 140-440 [facility] Comment on above: Performed By: #### H A1C2, HEMOG, ALB3, BMP3 ####[facility] [place], [place] RBC Auto #/vol (Bld) 4.15 10*6/uL Normal 3.80-5.20 [facility] Comment on above: Performed By: #### H A1C2, HEMOG, ALB3, BMP3 ####[address] [place], [place] WBC Auto #/vol (Bld) 6.7 10*3/uL Normal 3.6-10.7 [facility] Comment on above: Performed By: #### H A1C2, HEMOG, ALB3, BMP3 ####[address] [place], [place] Surgical Pathologyon 018 Surgical Pathology [id number] [facility] PATHOLOGY AND LABORATORY MEDICINE [address] [place] [address] FINAL SURGICAL PATHOLOGY REPORT NAM E: AMANDA GRUBBS .O.B.: 1970 47 Y F BILLING NO.: [id number]: [id number] PROCEDURE 11/27/2017 DATE:SURGEON: ROLAN JORDAN M.D. [...] foridentifying Helicobacter pylori: Recommendations from the [employer] [employer]. Am J Surg Pathol. 2013Nov;37(11):e12-22.NATALIE/Yasir ALLEN M.D. [facility] INFORMATION: GERDSPECIMEN: GASTRIC BIOPSY GRO SS DESCRIPTION:Stomach - antrumReceived in formalin are two segments of grant tissue 0.2 cm each.Submitted in toto. (2 ns, 1) JCK/JAFDisclaimer: The following statement applies to allimmunohistochemistry, in situ hybridization, molecular studies, andimmunofluorescence testing.The use of one or more reagents in the above tests is regulated as ananalyte specific reagent (ASR). These tests were developed and theirperformance characteristics determined by the [facility]. They have not been cleared by [...] false negativity on decalcified specimens.Professional Performing Location: [address] [address]. DEPARTMENT OF PATHOLOGY AND LABORATORY MEDICINE [place], [place] [address] Normal [facility] Vital Signs Date Time Vital Sign Value Performing Clinician Facility 02-06-2025 08:21-0400 Body height 160.[address] Franky Pearson DO Work Phone: [facility] 02-06-2025 08:21-0400 Body mass index (BMI) [Ratio] 29.9 kg/m2 Dr. Franky Pearson DO Work Phone: [facility] 02-06-2025 08:21-0400 Body weight 76.[address] Franky Pearson DO Work Phone: [facility] 02-02-2025 13:41-0400 Body temperature 98.3 [degF] Dr. Franky Pearson DO Work Phone: [facility] 02-02-2025 13:41-0400 Diastolic blood pressure 62 mm[Hg] Dr. Franky Pearson DO Work Phone: [facility] 02-02-2025 13:41-0400 Heart rate 81 /min Dr. Franky Pearson DO Work Phone: [facility] 02-02-2025 13:41-0400 Respiratory rate 16 /min Dr. Franky Pearson DO Work Phone: [facility] 02-02-2025 13:41-0400 SaO2% (BldA) [Mass fraction] 98 % Dr. Franky Pearson DO Work Phone: [facility] 02-02-2025 13:41-0400 Systolic blood pressure 122 mm[Hg] Dr. Franky Pearson DO Work Phone: [facility] 01-29-2025 09:18-0400 Body height 160.[address] Franky Pearson DO Work Phone: [facility] 01-29-2025 09:18-0400 Body mass index (BMI) [Ratio] 29.9 kg/m2 Dr. Franky Pearson DO Work Phone: [facility] 01-29-2025 09:18-0400 Body weight 76.[address] Franky Pearson DO Work Phone: [facility] 01-29-2025 09:18-0400 Diastolic blood pressure 72 mm[Hg] Dr. Franky Pearson DO Work Phone: [facility] 01-29-2025 09:18-0400 Heart rate 90 /min Dr. Franky Pearson DO Work Phone: [facility] 01-29-2025 09:18-0400 Respiratory rate 16 /min Dr. Franky Pearson DO Work Phone: [facility] 01-29-2025 09:18-0400 SaO2% (BldA) [Mass fraction] 98 % Dr. Franky Pearson DO Work Phone: [facility] 01-29-2025 09:18-0400 Systolic blood pressure 116 mm[Hg] Dr. Franky Pearson DO Work Phone: [facility] 01-16-2025 07:25-0400 Body temperature 98.1 [degF] Dr. Franky Pearson DO Work Phone: [facility] 01-16-2025 07:25-0400 Diastolic blood pressure 65 mm[Hg] Dr. Franky Pearson DO Work Phone: [facility] 01-16-2025 07:25-0400 Heart rate 72 /min Dr. Franky Pearson DO Work Phone: [facility] 01-16-2025 07:25-0400 Respiratory rate 16 /min Dr. Franky Pearson DO Work Phone: [facility] 01-16-2025 07:25-0400 SaO2% (BldA) [Mass fraction] 100 % Dr. Franky Pearson DO Work Phone: [facility] 01-16-2025 07:25-0400 Systolic blood pressure 97 mm[Hg] Dr. Franky Pearson DO Work Phone: [facility] 01-16-2025 05:54-0400 Body height 160.[address] Franky Pearson DO Work Phone: [facility] 01-16-2025 05:54-0400 Body mass index (BMI) [Ratio] 28.9 kg/m2 Dr. Franky Pearson DO Work Phone: [facility] 01-16-2025 05:54-0400 Body weight [address] Franky Pearson DO Work Phone: [facility] 11-26-2024 09:57-0400 Body height 160.[address] Franky Pearson DO Work Phone: [facility] 11-26-2024 09:57-0400 Body mass index (BMI) [Ratio] 29 kg/m2 Dr. Franky Pearson DO Work Phone: [facility] 11-26-2024 09:57-0400 Body temperature 98.5 [degF] Dr. Franky Pearson DO Work Phone: [facility] 11-26-2024 09:57-0400 Body weight 74.[address] Franky Pearson DO Work Phone: [facility] 11-26-2024 09:57-0400 Diastolic blood pressure 93 mm[Hg] Dr. Franky Pearson DO Work Phone: [facility] 11-26-2024 09:57-0400 Heart rate 85 /min Dr. Franky Pearson DO Work Phone: [facility] 11-26-2024 09:57-0400 Respiratory rate 16 /min Dr. Franky Pearson DO Work Phone: [facility] 11-26-2024 09:57-0400 SaO2% (BldA) [Mass fraction] 97 % Dr. Franky Pearson DO Work Phone: [facility] 11-26-2024 09:57-0400 Systolic blood pressure 139 mm[Hg] Dr. Franky Pearson DO Work Phone: [facility] 09-25-2024 10:43-0400 Body mass index (BMI) [Ratio] 29 kg/m2 Dr. Frakny Pearson DO Work Phone: [facility] 09-25-2024 10:43-0400 Body weight 74.[address] Franky Pearson DO Work Phone: [facility] 09-25-2024 10:43-0400 Diastolic blood pressure 78 mm[Hg] Dr. Franky Pearson DO Work Phone: [facility] 09-25-2024 10:43-0400 Systolic blood pressure 118 mm[Hg] Dr. Franky Pearson DO Work Phone: [facility] 08-19-2024 07:30-0400 Body mass index (BMI) [Ratio] 29.2 kg/m2 Dr. Franky Pearson DO Work Phone: [facility] 08-19-2024 07:30-0400 Body temperature 97.5 [degF] Dr. Franky Pearson DO Work Phone: [facility] 08-19-2024 07:30-0400 Body weight 74.[address] Franky Pearson DO Work Phone: [facility] 08-19-2024 07:30-0400 Diastolic blood pressure 86 mm[Hg] Dr. Franky Pearson DO Work Phone: [facility] 08-19-2024 07:30-0400 Heart rate 84 /min Dr. Franky Pearson DO Work Phone: [facility] 08-19-2024 07:30-0400 Respiratory rate 18 /min Dr. Franky Pearson DO Work Phone: [facility] 08-19-2024 07:30-0400 SaO2% (BldA) [Mass fraction] 98 % Dr. Franky Pearson DO Work Phone: [facility] 08-19-2024 07:30-0400 Systolic blood pressure 126 mm[Hg] Dr. Franky Pearson DO Work Phone: [facility] 08-13-2024 08:34-0500 Body temperature 97.6 [degF] Dr. Franky Pearson DO Work Phone: [facility] 08-13-2024 08:34-0500 Diastolic blood pressure 60 mm[Hg] Dr. Franky Pearson DO Work Phone: [facility] 08-13-2024 08:34-0500 Heart rate 83 /min Dr. Franky Pearson DO Work Phone: [facility] 08-13-2024 08:34-0500 SaO2% (BldA) [Mass fraction] 99 % Dr. Franky Pearson DO Work Phone: [facility] 08-13-2024 08:34-0500 Systolic blood pressure 120 mm[Hg] Dr. Franky Pearson DO Work Phone: [facility] 05-13-2023 10:41-0500 Body height 160.[address] Yessi Mcqueen Work Phone: [facility] 05-13-2023 10:41-0500 Body temperature 98 [degF] Dr. Yessi Mcqueen Work Phone: [facility] 05-13-2023 10:41-0500 Diastolic blood pressure 88 mm[Hg] Dr. Yessi Mcqueen Work Phone: [facility] 05-13-2023 10:41-0500 Heart rate 81 /min Dr. Yessi Mcqueen Work Phone: [facility] 05-13-2023 10:41-0500 Respiratory rate 17 /min Dr. Yessi Mcqueen Work Phone: [facility] 05-13-2023 10:41-0500 SaO2% (BldA) [Mass fraction] 96 % Dr. Yessi Mcqueen Work Phone: [facility] 05-13-2023 10:41-0500 Systolic blood pressure 126 mm[Hg] Dr. Yessi Mcqueen Work Phone: [facility] 08-26-2022 19:04-0400 Body temperature 97.88 [degF] LINDA MARTINEZ MD [facility] 08-26-2022 18:57-0400 Body temperature 97.88 [degF] LINDA MARTINEZ MD [facility] 08-26-2022 18:30-0400 Diastolic Blood Pressure Non-Invasive 72 1 LINDA MARTINEZ MD [facility] 08-26-2022 18:30-0400 Heart rate 80 /min LINDA MARTINEZ MD [facility] 08-26-2022 18:30-0400 Respiratory rate 13 /min LINDA MARTINEZ MD [facility] 08-26-2022 18:30-0400 Systolic Blood Pressure Non-Invasive 130 1 LINDA MARTINEZ MD [facility] 08-26-2022 18:00-0400 Diastolic Blood Pressure Non-Invasive 69 1 LINDA MARTINEZ MD [facility] 08-26-2022 18:00-0400 Heart rate 81 /min LINDA MARTINEZ MD [facility] 08-26-2022 18:00-0400 Respiratory rate 14 /min LINDA MARTINEZ MD [facility] 08-26-2022 18:00-0400 Systolic Blood Pressure Non-Invasive 127 1 LINDA MARTINEZ MD [facility] 08-26-2022 17:30-0400 Diastolic Blood Pressure Non-Invasive 72 1 LINDA MARTINEZ MD [facility] 08-26-2022 17:30-0400 Heart rate 80 /min LINDA MARTINEZ MD [facility] 08-26-2022 17:30-0400 Respiratory rate 13 /min LINDA MARTINEZ MD [facility] 08-26-2022 17:30-0400 Systolic Blood Pressure Non-Invasive 130 1 LINDA MARTINEZ MD [facility] 08-26-2022 16:07-0400 Body temperature 96.62 [degF] LINDA MARTINEZ MD [facility] 08-18-2022 14:03-0500 Body height 160.7 cm Shayna Andrade MD Work Phone: [facility] 08-18-2022 14:03-0500 Body mass index (BMI) [Ratio] 31.74 kg/m2 Shayna Andrade MD Work Phone: [facility] 08-18-2022 14:03-0500 Body weight 81.92 kg Shayna Andrade MD Work Phone: [facility] 08-18-2022 14:03-0500 Diastolic blood pressure 79 mm[Hg] Shayna Andrade MD Work Phone: [employer] [facility] 08-18-2022 14:03-0500 Heart rate 94 /min Shayna Andrade MD Work Phone: [facility] 08-18-2022 14:03-0500 Systolic blood pressure 121 mm[Hg] Shayna Andrade MD Work Phone: [facility] 07-07-2022 10:09-0500 Body height 160.7 cm Shayna Andrade MD Work Phone: [facility] 07-07-2022 10:09-0500 Body mass index (BMI) [Ratio] 32.3 kg/m2 Shayna Andrade MD Work Phone: [facility] 07-07-2022 10:09-0500 Body weight 83.37 kg Shayna Andrade MD Work Phone: [facility] 07-07-2022 10:09-0500 Diastolic blood pressure 82 mm[Hg] Shayna Andrade MD Work Phone: [facility] 07-07-2022 10:09-0500 Heart rate 84 /min Shayna Andrade MD Work Phone: [facility] 07-07-2022 10:09-0500 Respiratory rate 14 /min Shayna Andrade MD Work Phone: [facility] 07-07-2022 10:09-0500 Systolic blood pressure 122 mm[Hg] Shayna Andrade MD Work Phone: [facility] 03-03-2022 09:25-0400 Diastolic Blood Pressure NBP [address] ROBSON PUGH MD [facility] 03-03-2022 09:25-0400 Heart rate 80 /min DR ROBSON PUGH MD [facility] 03-03-2022 09:25-0400 Respiratory rate 14 /min DR ROBSON PUGH MD [facility] 03-03-2022 09:25-0400 Systolic Blood Pressure NBP [address] ROBSON PUGH MD [facility] 03-03-2022 09:20-0400 Diastolic Blood Pressure NBP [address] ROBSON PUGH MD [facility] 03-03-2022 09:20-0400 Heart rate 73 /min DR ROBSON PUGH MD [facility] 03-03-2022 09:20-0400 Respiratory rate 21 /min DR ROBSON PUGH MD [facility] 03-03-2022 09:20-0400 Systolic Blood Pressure NBP [address] ROBSON PUGH MD [facility] 03-03-2022 09:16-0400 Diastolic Blood Pressure NBP [address] ROBSON PUGH MD [facility] 03-03-2022 09:16-0400 Heart rate 78 /min DR ROBSON PUGH MD [facility] 03-03-2022 09:16-0400 Respiratory rate 15 /min DR ROBSON PUGH MD [facility] 03-03-2022 09:16-0400 Systolic Blood Pressure NBP [address] ROBSON PUGH MD [facility] 03-03-2022 07:55-0400 Body height 162.[address] ROBSON PUGH MD [facility] 03-03-2022 07:55-0400 Body temperature 98.06 [degF] DR ROBSON PUGH MD [facility] 03-03-2022 07:55-0400 Body weight 79.[address] ROBSON PUGH MD [facility] 03-03-2022 07:55-0400 Body weight 30.07 kg/m2 DR ROBSON PUGH MD [facility] 05-22-2021 05:00-0500 Diastolic blood pressure 79 mm[Hg] RUY RIVERA MD [facility] 05-22-2021 05:00-0500 Heart rate 70 /min RUY RIVERA MD [facility] 05-22-2021 05:00-0500 Mean blood pressure 91 mm[Hg] RUY RIVERA MD [facility] 05-22-2021 05:00-0500 Reason For Taking VItal Signs RUY RIVERA MD [facility] 05-22-2021 05:00-0500 Respiratory rate 14 /min RUY RIVERA MD [facility] 05-22-2021 05:00-0500 Systolic blood pressure 114 mm[Hg] RUY RIVERA MD [facility] 05-22-2021 04:24-0500 Body temperature 98.06 [degF] RUY RIVERA MD [facility] 05-22-2021 04:24-0500 Diastolic blood pressure 97 mm[Hg] RUY RIVERA MD [facility] 05-22-2021 04:24-0500 Heart rate 81 /min RUY RIVERA MD [facility] 05-22-2021 04:24-0500 Mean blood pressure 108 mm[Hg] RUY RIVERA MD [facility] 05-22-2021 04:24-0500 Respiratory rate 16 /min RUY RIVERA MD [facility] 05-22-2021 04:24-0500 Systolic blood pressure 130 mm[Hg] RUY RIVERA MD [facility] Encounters Encounter Date Encounter Type Care Provider Facility Start: 03-05-2025 ambulatory Franky Daydaymiranda Facility: [facility] Start: 02-19-2025 End: 02-19-2025 ambulatory Franky Daydaymiranda Facility:[facility] Start: 02-06-2025 End: 02-06-[address] Allan Coleman MD -[facility] Start: 02-06-2025 End: 02-06-[address] Franky Pearson DO Work Phone: -[facility] Start: 02-02-2025 End: 02-02-2025 Patient encounter procedure Angus Villalobos [place] -[facility] Work Phone: Start: 02-02-2025 End: 02-02-[address] Franky Pearson DO Work Phone: -[facility] Start: 02-02-2025 End: 02-02-2025 ambulatory Angus Villalobos Facility:[facility] Start: 01-29-2025 End: 01-29-2025 Patient encounter procedure Kiersten PEREZ -[facility] Work Phone: Start: 01-29-2025 End: 01-29-[address] Franky Pearson DO Work Phone: -[facility] Start: 01-16-2025 ambulatory Franky Pearson Facility: [facility] Start: 01-16-2025 Non-patient / Non-visit Rock Joyner nd DO -[facility] Start: 01-16-2025 End: 01-16-2025 Admission to same day surgery center Rock Pineda DO -[facility] Work Phone: Start: 01-16-2025 End: 01-16-[address] Franky Pearson DO Work Phone: -Endoscopy Start: 01-05-2025 End: 01-05-[address] Yessi Mcqueen DC -[facility] Work Phone: Start: 01-05-2025 End: 01-05-[address] Franky Pearson DO Work Phone: -[facility] Start: 12-18-2024 End: 12-18-[address] Yessi Mcqueen DC -[facility] Work Phone: Start: 12-18-2024 End: 12-18-[address] Franky Pearson DO Work Phone: -[facility] Start: 11-26-2024 End: 11-26-2024 Patient encounter procedure Kiersten PEREZ -[facility] Work Phone: Start: 11-26-2024 End: 11-26-[address] Franky Pearson DO Work Phone: [facility] Work Phone: Start: 09-25-2024 End: 09-25-[address] Yessi Mcqueen DC -[facility] Work Phone: Start: 09-25-2024 End: 09-25-2024 ambulatory Yessi Mcqueen Facility:[facility] Start: 08-19-2024 End: 08-19-2024 Patient encounter procedure LACEY Lyman -[facility] Work Phone: Start: 08-19-2024 End: 08-19-2024 ambulatory Moon Lyman Facility:[facility] Start: 08-13-2024 End: 08-13-2024 Patient encounter procedure Jose M PEREZ -[facility] Work Phone: Start: 08-13-2024 End: 08-13-2024 ambulatory Franky Pearson Facility:[facility] Start: 07-23-2024 End: 07-23-2024 ambulatory Franky Naylorko Facility:[facility] Start: 07-01-2024 End: 07-01-2024 ambulatory Franky Halko Facility:[facility] Start: 06-30-2024 End: 06-30-2024 ambulatory Rolan Valdes NP Facility:[facility] Start: 06-27-2024 End: 06-27-2024 ambulatory Hans HURT Facility:[facility] Start: 06-13-2024 ambulatory Franky Halko Facility: [facility] Start: 06-13-2024 End: 06-13-2024 ambulatory Franky Halko Facility:[facility] Start: 05-13-2024 End: 05-13-2024 ambulatory Franky Halko Facility:[facility] Start: 05-06-2024 ambulatory Franky Halko Facility: [facility] Start: 05-06-2024 End: 05-06-2024 ambulatory Franky Halko Facility:[facility] Start: 05-05-2024 End: 05-05-2024 ambulatory Franky Halko Facility:[facility] Start: 04-17-2024 End: 04-17-2024 ambulatory Hans HURT Facility:[facility] Start: 04-15-2024 ambulatory Franky Halko Facility: [facility] Start: 03-26-2024 End: 03-26-2024 ambulatory Franky Halko Facility:[facility] Start: 03-11-2024 End: 03-11-2024 ambulatory Franky Halko Facility:[facility] Start: 09-12-2023 End: 09-12-[address] Allan Coleman Work Phone: [facility] Work Phone: Start: 09-12-2023 End: 09-12-[address] Allan Coleman Work Phone: [facility]-Laboratory, [place] Start: 07-26-2023 End: 07-26-2023 ambulatory PARTS PERSON-Amrita Valdes PARTS PERSON Work Phone: [facility] Work Phone: Start: 07-26-2023 End: 07-26-2023 Patient encounter procedure PARTS PERSON-Amrita Valdes PARTS PERSON Work Phone: [facility]-Cat Scan, [facility] Work Phone: Start: 07-24-2023 End: 07-24-2023 ambulatory PARTS PERSON-C Rolan Keisha PARTS PERSON Work Phone: [facility] Work Phone: Start: 07-24-2023 End: 07-24-2023 Patient encounter procedure PARTS PERSON-Amrita Rolan Keisha PARTS PERSON Work Phone: [facility]-Outpatient Bone Densitometry Work Phone: Start: 06-22-2023 End: 06-22-[address] Yessi Mcqueen Work Phone: [facility] Work Phone: Start: 06-22-2023 End: 06-22-[address] Yessi Mcqueen Work Phone: [facility]-Laboratory, [place] Start: 06-01-2023 End: 06-01-[address] Yessi Mcqueen Work Phone: [facility] Radiology Start: 05-13-2023 End: 05-13-[address] Yessi Mcqueen Work Phone: [facility] Work Phone: Start: 03-20-2023 End: 03-20-[address] Yessi Mcqueen Work Phone: [facility] Chiropractic Work Phone: Start: 01-16-2023 Telephone encounter Shayna mcdonald MD Work Phone: [facility] [place] Comment on above: Appointment Start: 09-19-2022 End: 09-20-2022 ambulatory FRANKY PEARSON DO Facility:B Start: 09-13-2022 End: 09-14-2022 ambulatory FRANKY PEARSON DO Facility:B Start: 09-13-2022 End: 09-13-2022 Patient encounter procedure FRANKY PEARSON DO [place] Start: 09-02-2022 End: 09-03-2022 ambulatory FRANKY PEARSON DO Facility:B Start: 09-02-2022 End: 09-02-2022 Patient encounter procedure FRANKY PEARSON DO [facility] Start: 08-26-2022 End: 08-26-2022 Emergency department patient visit LINDA MARTINEZ MD Facility:B Start: 08-26-2022 End: 08-26-2022 Emergency department patient visit LINDA MARTINEZ MD [facility] Start: 08-22-2022 End: 08-23-2022 ambulatory FRANKY PEARSON DO Facility:B Start: 08-22-2022 End: 08-22-2022 Patient encounter procedure FRANKY PEARSON DO [facility] Start: 08-18-2022 End: 08-18-2022 ambulatory [facility] Start: 08-18-2022 End: 08-18-2022 Office outpatient visit 15 minutes Shayna Andrade MD Work Phone: [facility] [place] Comment on above: Pre-diabetes (Primar y Dx); S/P bariatric surgery; Weight gain; BMI 31.0-31.9,adult; Class 1 obesity with serious comorbidity and body mass index (BMI) of 31.0 to 31.9 in adult, unspecified obesity type; Deficiency of multiple nutrient elements; Vitamin D deficiency Start: 07-07-2022 End: 07-07-2022 ambulatory [facility] Start: 07-07-2022 End: 07-07-2022 Office outpatient visit 15 minutes Shayna Andrade MD Work Phone: [facility] [place] Comment on above: Pre-diabetes (Primar y Dx); S/P bariatric surgery; Weight gain; BMI 32.0-32.9,adult; Class 1 obesity with serious comorbidity and body mass index (BMI) of 32.0 to 32.9 in adult, unspecified obesity type Start: 2022 End: 06-24-2022 ambulatory FRANKY HALKO DO Facility:B Start: 2022 End: 2022 Patient encounter procedure FRANKY HALKO DO [facility] Start: 06-07-2022 End: 06-07-2022 ambulatory [facility] Start: 05-10-2022 End: 05-10-2022 ambulatory [facility] Start: 04-26-2022 End: 04-27-2022 ambulatory FRANKY HALKO DO Facility:B Start: 04-26-2022 End: 04-26-2022 Patient encounter procedure FRANKY HALKO DO [facility] Start: 04-15-2022 End: 04-16-2022 ambulatory FRANKY HALKO DO Facility:B Start: 04-15-2022 End: 04-15-2022 Patient encounter procedure FRANKY HALKO DO [facility] Start: 03-03-2022 End: 03-03-2022 ambulatory ROBSON PUGH Facility:B Start: 03-03-2022 End: 03-03-[address] ROBSON PUGH MD [facility] Start: 02-02-2022 End: 02-03-2022 ambulatory FRANKY HALKO DO Facility:B Start: 02-02-2022 End: 02-02-2022 Patient encounter procedure FRANKY HALKO DO [facility] Start: 12-02-2021 End: 12-03-2021 ambulatory FRANKY HALKO DO Facility:[facility] Start: 12-02-2021 End: 12-02-2021 Patient encounter procedure FRANKY HALKO DO [facility] Start: 07-04-2021 End: 07-04-2021 Patient encounter procedure FRANKY PEARSON DO [facility] Start: 06-20-2021 End: 06-20-2021 Patient encounter procedure FRANKY PEARSON DO [facility] Start: 05-22-2021 End: 05-22-2021 Emergency department patient visit RUY RIVERA MD [facility] Start: 02-25-2020 End: 02-25-2020 Subsequent hospital visit by physician Sekou Aparicio Work Phone: [facility] Start: 02-05-2020 End: 02-05-2020 Patient encounter procedure [facility] Start: 02-03-2020 Encounter for other preprocedural examination [facility] Start: 02-02-2020 End: 02-03-2020 Patient encounter procedure KATHERINE Bonds NP [facility] Start: 12-10-2019 End: 12-10-2019 Subsequent hospital visit by physician Sekou Aparicio Work Phone: [facility] Start: 10-20-2019 End: 10-20-2019 Subsequent hospital visit by physician Sekou Aparicio Work Phone: [facility] Start: 04-10-2019 End: 04-10-2019 Subsequent hospital visit by physician Rolan Jordan Work Phone: [facility] Procedures Date Procedure Procedure Detail Performing Clinician Start: 02-02-[address] Matthew Pearson DO Work Phone: Start: 01-16-[address] Zbigniew Pearson DO Work Phone: Start: 07-26-2023 CT of chest without contrast PARTS PERSON-C Rolan Roof PARTS PERSON Work Phone: Start: 07-24-2023 Dual energy X-ray absorptiometry PARTS PERSON-C Rolan Valdes PARTS PERSON Work Phone: Start: 07-24-2023 Ultrasonography of breast PARTS PERSON-C Rolan Valdes PARTS PERSON Work Phone: Start: 07-24-2023 Bilateral mammography N P-C Rolan Valdes PARTS PERSON Work Phone: Start: 06-01-2023 Plain X-ray of [...] (1 - 1-dose 60+ series) [facility] Start: 04-07-2030 DTaP/Tdap/Td Vaccines (2 - Td or Tdap) DTaP/Tdap/Td Vaccines (2 - Td or Tdap) [facility] Start: 06-08-2025 Lipid panel Lipid Panel [facility] Start: 02-06-2025 Foot min 3 Views Foot min 3 Views [facility] Start: 02-06-2025 Knee 4 or More Views Knee 4 or More Views [facility] Start: 02-06-2025 XR Foot GE 3 Views [facility] Start: 02-06-2025 XR Knee GE 4 Views [facility] Start: 01-16-2025 Colonoscopy w/biopsy single/multiple COLONOSCOPY AND BIOPSY [facility] Start: 01-16-2025 Egd transoral biopsy single/multiple EGD BIOPSY SINGLE/MULTIPLE [facility] Start: 01-16-2025 Patient discharge [facility] Start: 02-09-2023 COVID-19 Vaccine ( season) COVID-19 Vaccine () [facility] Start: 02-09-2023 Influenza vaccination Influenza Vaccine (#1) [facility] Start: 12-15-2022 End: 12-15-2022 Patient encounter procedure 12/15/2022 Office Visit Weight Management Shayna Andrade MD [address] [place], [place] [id number] [facility] [place] Start: 10-19-2022 Zoster Vaccines (2 of 2) Zoster Vaccines (2 of 2) [facility] Start: 08-18-2022 End: 08-18-2022 Patient encounter procedure 08/18/2022 Office Visit Weight Management Shayna Andrade MD [address] [place] [address] [facility] [place] Start: 02-09-2022 Influenza vaccination Influenza Vaccine (#1) [facility] Start: 2021 Zoster Vaccines (1 of 2) Zoster Vaccines (1 of 2) [facility] Start: 06-02-2021 COVID-19 Vaccine (4 - Booster for Moderna series) COVID-19 Vaccine (4 - Booster for Moderna series) [facility] Start: 02-10-2020 Influenza vaccination Flu vaccine (#1) [place] Start: 03-14-2019 A1C test (Diabetic or Prediabetic) A1C test (Diabetic or Prediabetic) [place] Start: 03-14-2019 HbA1c (Bld) [Mass fraction] A1C test (Diabetic or Prediabetic) [place] Start: 02-09-2019 Influenza vaccination Flu vaccine (#1) [place] Start: 2011 Screening for malignant neoplasm of breast Mammogram [facility] Start: 2001 Screening for malignant neoplasm of cervix [facility] Start: 1992 Cervical cancer screen Cervical cancer screen [place] Start: 1992 Screening for malignant neoplasm of cervix [facility] Start: 1990 DTaP/Tdap/Td vaccine (1 - Tdap) DTaP/Tdap/Td vaccine (1 - Tdap) [place] Start: 1990 Hepatitis A Vaccines (1 of 2 - Risk 2-dose series) Hepatitis A Vaccines (1 of 2 - Risk 2-dose series) [facility] Start: 1990 Hepatitis B vaccine (1 of 3 - Risk 3-dose series) Hepatitis B vaccine (1 of 3 - Risk 3-dose series) [place] Start: 1989 Diabetes mellitus screening Diabetes Screening [facility] Start: 1989 Diabetic microalbuminuria test Diabetic microalbuminuria test [place] Start: 1989 Hepatitis C screening Hepatitis C Screening [facility] Start: 1986 HIV screen HIV screen [place] Start: 1986 HIV screening HIV screen [place] Start: 1983 Depression Screening Depression Screening [facility] Start: 1981 [object Object] Diabetic foot exam [place] Start: 1981 Diabetic foot examination Diabetic foot exam [place] Start: 1981 Diabetic retinal exam Diabetic retinal exam [place], [place] Start: 1981 Lipid panel Lipid [place] Start: 1981 Lipid screen Lipid [place] Start: 1977 Pneumococcal 0-64 years Vaccine (1 of 1 - PPSV23) Pneumococcal 0-64 years Vaccine (1 of 1 - PPSV23) [place] Start: 1972 Hepatitis A Vaccines (1 of 2 - Risk 2-dose series) Hepatitis A Vaccines (1 of 2 - Risk 2-dose series) [facility] Start: 1972 MMR Vaccines (1 of 1 - Standard series) MMR Vaccines (1 of 1 - Standard series) [facility] Start: 1971 Hepatitis B Vaccines (1 of 3 - 3-dose series) Hepatitis B Vaccines (1 of 3 - 3-dose series) [facility] Start: 1971 HIV screening HIV Screening [facility] Start: 1971 Screening for malignant neoplasm of colon [facility] CT Chest [facility] Patient referral [facility] Work Phone: [facility] Immunizations Immunization Date Immunization Notes Care Provider [facility] 03-27-2024 influenza, seasonal, injectable, preservative free Dr. Franky Pearson DO Work Phone: [facility] 04-16-2023 influenza, injectabl e, quadrivalent, preservative free Dr. Yessi Mcqueen Work Phone: [facility] 08-24-2022 zoster vaccine recombinant; Translations: [Shingrix] LINDA MARTINEZ MD [facility] 03-11-2022 influenza virus vaccine, unspecified formulation LINDA MARTINEZ MD [facility] Comment on above: Result Comment: [facility] 04-07-2021 SARS-CoV-2 (COVID-19 ) mRNA-[address] ROBSON PUGH MD [facility] Comment on above: Result Comment: 2021: TPV18 07-02-2020 SARS-CoV-2 (COVID-19 ) mRNA-[address] ROBSON PUGH MD [facility] Comment on above: Result Comment: 2021: TPV18 06-07-2020 SARS-CoV-2 (COVID-19 ) mRNA-[address] ROBSON PUGH MD [facility] Comment on above: Result Comment: 2021: [id number] 04-07-2020 tetanus toxoid, redu camron diphtheria toxoid, and acellular pertussis vaccine, adsorbed; Translations: [Boostrix (Tdap)] RUY RIVERA MD [facility] 03-11-2020 influenza virus vaccine, unspecified formulation RUY RIVERA MD [facility] 03-10-2020 influenza virus vaccine, unspecified formulation DR ROBSON PUGH MD [facility] 03-30-2014 influenza virus vaccine, unspecified formulation DR ROBSON PUGH MD [facility] 05-03-2012 influenza virus vaccine, unspecified formulation DR ROBSON PUGH MD [facility] Payers Date Payer Category Payer Self-pay 2024 Unknown [id number] 2021 Unknown [employer] [id number] 2021-Present [address] [place] [address] Commercial [id number] 2017 Unknown [employer] [id number] 2017-Present [phone] [address] [place] [address] xxxxxxxxxxxxx [id number] 2017 Unknown [employer] [id number] 2017-Present [phone] [address] [place] [address] [id number] .[id number] 2015 Unknown [id number] 1971 Unknown [id number] 2.16.840.1.460070.3.579.2.598 1971 Unknown [id number] 2.16.840.1.953451.3.579.2.598 1971 Unknown [id number] 2.16.840.1.902307.3.579.2.598 1971 Unknown [id number] 2.16.840.1.964935.3.579.2. 1971 Unknown [id number] 2.16.840.1.473050.3.579.2.7 1971 Unknown [id number] 2.16.840.1.806241.3.579.2.7 1971 Unknown [id number] 2.16.840.1.445524.3.579.2.627 1971 Unknown [id number] 2.16.840.1.061004.3.579.2. 1971 Unknown [id number] 2.16.840.1.268622.3.579.2.7 1971 Unknown [id number] 2.16.840.1.562968.3.579.2.7 1971 Unknown [id number] 2.16.840.1.488814.3.579.2.627 1971 Unknown [id number] 2.16.840.1.994944.3.579.2. 1971 Unknown [id number] 2.16.840.1.817642.3.579.2.7 1971 Unknown [id number] 2.16.840.1.937527.3.579.2.7 1959 Unknown [id number] Unknown [id number] 2.16.840.1.174707.3.579.2.598 Unknown [facility] AZLE [id number] Unknown [id number] 2.16.840.1.728237.3.579.2.462 Unknown [id number] 2.16.840.1.568252.3.579.2.462 Unknown [id number] 2.16.840.1.712918.3.579.2.462 Unknown [id number] 2.16.840.1.624134.3.579.2.462 Unknown [id number] 2.16.840.1.352527.3.579.2.462 Unknown [id number] 2.16.840.1.614032.3.579.2.462 Unknown [id number] 2.16.840.1.736073.3.579.2.462 Unknown [id number] 2.16.840.1.019450.3.579.2.462 Unknown [id number] 2.16.840.1.081996.3.579.2.462 Unknown [id number] 2.16.840.1.033507.3.579.2.462 Unknown [id number] 2.16.840.1.107769.3.579.2.462 Unknown [id number] 2.16.840.1.947124.3.579.2.462 Unknown [id number] 2.16.840.1.438245.3.579.2.462 Unknown [id number] 2.16.840.1.813264.3.579.2.462 Unknown [id number] 2.16.840.1.666136.3.579.2.462 Unknown [id number] 2.16.840.1.300985.3.579.2.462 Unknown [id number] 2.16.840.1.922113.3.579.2.462 Unknown [id number] 2.16.840.1.839988.3.579.2.462 Unknown [id number] 2.16.840.1.945851.3.579.2.462 Unknown [id number] 2.16.840.1.829325.3.579.2.462 Unknown [id number] 2.16.840.1.045433.3.579.2.462 Unknown [id number] 2.16.840.1.169854.3.579.2.462 Unknown [id number] 2.16.840.1.794679.3.579.2.462 Unknown [id number] 2.16.840.1.171915.3.579.2.462 Unknown [id number] 2.16.840.1.341366.3.579.2.462 Unknown [id number] 2.16.840.1.144490.3.579.2.462 Unknown [id number] 2.16.840.1.750789.3.579.2.462 Unknown [id number] 2.16.840.1.640806.3.579.2.462 Unknown [id number] 2.16.840.1.632952.3.579.2.462 Unknown [id number] 2.16.840.1.123684.3.579.2.462 Unknown [id number] 2.16.840.1.186123.3.579.2.462 Unknown [id number] 2.16840.1.652433.3.579.2.462 Social History Date Type Detail Facility Start: 12-10-2019 End: 01-13-2025 Tobacco smoking status NHIS Never smoker [place] Start: 12-10-2019 End: 07-07-2022 Alcohol intake Ex-drinker (finding) [facility] Start: 04-01-2018 Alcohol Comment less than once a mon th [employer], [place] Start: 1970 Sex Assigned At Not on file M enmanuel NEMOPTIC, SILVESTRE Start: 04-10-2019 End: 02-25-2020 Tobacco use and exposure Never used Gia Asc[facility] Start: 04-10-2019 End: 07-07-2022 Alcohol intake Not Currently Gia Ascade [place], SILVESTRE Start: 1970 Sex Assigned At Female A [facility] Start: 06-27-2022 End: 08-18-2022 Exposure to SARS-CoV-2 (event) Not sure Identify Start: 07-07-2022 History of Social function [facility] Medical Equipment Procedure Code Equipment Code Equipment Origin al Text Equipment Identifier Dates See Instructions , dx E16.2; check BGT due to hypoglycemic symptoms, up to once per day; dispense 100 glucose test strips, # 100 EA, 0 Refill(s), Pharmacy: [facility], 164, cm, 04/04/22 8:05:00 EDT, Height, 86.1 Start: 04-04-2022 See Instructions , dx E16.2; check BGT due to hypoglycemic symptoms, up to once per day; dispense 100 lancets., # 100 EA, 0 Refill(s), Pharmacy: [facility], 164, cm, 04/04/22 8:05:00 EDT, Height, 86.1 Start: 04-04-2022 See Instructions , dx E16.2; check BGT due to hypoglycemic symptoms, up to once per day; dispense 100 glucose test strips, # 100 EA, 0 Refill(s), Pharmacy: [facility], 164, cm, 04/04/22 8:05:00 EDT, Height, 86.1 Start: 04-04-2022 See Instructions , dx E16.2; check BGT due to hypoglycemic symptoms, up to once per day; dispense 100 lancets., # 100 EA, 0 Refill(s), Pharmacy: [facility], 164, cm, 04/04/22 8:05:00 EDT, Height, 86.1 Start: 04-04-2022 See Instructions , dx E16.2; check BGT due to hypoglycemic symptoms, up to once per day; dispense 100 glucose test strips, # 100 EA, 0 Refill(s), Pharmacy: [facility], 164, cm, 04/04/22 8:05:00 EDT, Height, 86.1 Start: 04-04-2022 See Instructions , dx E16.2; check BGT due to hypoglycemic symptoms, up to once per day; dispense 100 lancets., # 100 EA, 0 Refill(s), Pharmacy: [facility], 164, cm, 04/04/22 8:05:00 EDT, Height, 86.1 Start: 04-04-2022 See Instructions , dx E16.2; check BGT due to hypoglycemic symptoms, up to once per day; dispense 100 glucose test strips, # 100 EA, 0 Refill(s), Pharmacy: [facility], 164, , 04/04/22 8:05:00 EDT, Height, 86.1 Start: 04-04-2022 See Instructions , dx E16.2; check BGT due to hypoglycemic symptoms, up to once per day; dispense 100 lancets., # 100 EA, 0 Refill(s), Pharmacy: [facility], 164, cm, 04/04/22 8:05:00 EDT, Height, 86.1 Start: 04-04-2022 See Instructions , dx E16.2; check BGT due to hypoglycemic symptoms, up to once per day; dispense 100 glucose test strips, # 100 EA, 0 Refill(s), Pharmacy: [facility], 164, , 04/04/22 8:05:00 EDT, Height, 86.1 Start: 04-04-2022 See Instructions , dx E16.2; check BGT due to hypoglycemic symptoms, up to once per day; dispense 100 lancets., # 100 EA, 0 Refill(s), Pharmacy: [facility], 164, cm, 04/04/22 8:05:00 EDT, Height, 86.1 Start: 04-04-2022 See Instructions , dx E16.2; check BGT due to hypoglycemic symptoms, up to once per day; dispense 100 glucose test strips, # 100 EA, 0 Refill(s), Pharmacy: [facility], 164, cm, 04/04/22 8:05:00 EDT, Height, 86.1 Start: 04-04-2022 See Instructions , dx E16.2; check BGT due to hypoglycemic symptoms, up to once per day; dispense 100 lancets., # 100 EA, 0 Refill(s), Pharmacy: [facility], 164, cm, 04/04/22 8:05:00 EDT, Height, 86.1 Start: 04-04-2022 See Instructions , dx E16.2; check BGT due to hypoglycemic symptoms, up to once per day; dispense 100 glucose test strips, # 100 EA, 0 Refill(s), Pharmacy: [facility], 164, cm, 04/04/22 8:05:00 EDT, Height, 86.1 Start: 04-04-2022 See Instructions , dx E16.2; check BGT due to hypoglycemic symptoms, up to once per day; dispense 100 lancets., # 100 EA, 0 Refill(s), Pharmacy: [facility], 164, cm, 04/04/22 8:05:00 EDT, Height, 86.1 Start: 04-04-2022 Goals Date Patient Goal Desired Activity /State Functional Status Date Assessment Result Facility 08-26-2022 Functional Status Independent [facility] 03-03-2022 Functional Status Maintained, Less than 8 hours [facility] Mental Status Date Assessment Result Facility 01-16-2025 Cognitive function Voice/Name [facility] Work Phone: Clinical Notes 05-22-2021 to 01-16-2025 Note Date & Type Note Facility 01-16-2025 Consult note [facility] 01-16-2025 Procedure note [facility] 01-16-2025 Procedure note [facility] 01-16-2025 Procedure note [facility] 01-16-2025 Procedure note [facility] 01-16-2025 History and physi bethanie note [facility] 01-16-2025 Note [facility] Medical Records Department [address] [place] [id number] History Physical Exam 01/16/25 0638 MR#: [id number] Acct: [id number] Name: AMANDA GRUBBS Rep #: [id number] : 1970 54 From: [place] Pineda DO PCP: Dr. Franky Pearson, DO Status:[facility] Location: [place] [address] HPI - General General Date of Admission: 01/16/25 Date of Service: 01/16/25 Chief Complaint: abdominal pain, bloating, N/V, bleeding HPI Narrative AMANDA GRUBBS, is a 54 F who presents with the Chief Complaint: abdominal pain, bloating, N/V, bleeding Gastric bypass 2018 hysterectomy 2014 total CCX [...] shakes very little protein and fiber intake [facility] Medical History Kidney stones Wears glasses Wears partial dentures Depression Thyroid disease Back pain Migraine headache Non-smoker History of IBS Gastric reflux History of stress test History of echocardiogram Cardiology follow-up encounter Lower respiratory tract infection Bacterial sinusitis Anginal pain Somatic dysfunction of lower extremity Psoriatic arthritis Prediabetes Family history of ischemic heart disease Anxiety Secondary insomnia Iron deficiency B12 deficiency Major depression in remission Hypothyroid Anemia Acute pharyngitis, unspecified Aphthous ulcer of mouth delivery delivered Home Medications ???Medication ???Instructions ???Recorded ???Last Taken ???Type Diltiazem 2% / Lidocaine 5% #30 grams 11/26/24 Unknown Rx ointment (compound) acetaminophen 325 mg tablet 325 mg PO ONCE PRN pain 11/26/24 0 01/15/25 History (Tylenol) bupropion HCl 75 mg tablet 75 mg PO TID 11/26/24 01/15/25 His tory docusate sodium 100 mg capsule 100 mg PO BID #60 caps 11/26/24 Un known Rx fexofenadine 60 mg tablet (Becca 60 mg PO BID PRN allergy symptom s 11/26/24 01/15/25 History Allergy) linaclotide 290 mcg capsule 290 mcg PO QAM #90 caps 11/26/24 0 01/14/25 Rx (Linzess) lorazepam 0.5 mg tablet (Ativan) 0.25 mg PO DAILY PRN anxiety 11/2601/15/25 History multivitamin 1 tab PO QDAY 11/26/24 01/14/25 Hi story omeprazole 40 mg capsule,delayed 40 mg PO QDAY #90 caps 11/26/24 Rx release peg 3350-sod sulf,[id number] See Rx Instructions PO .COMPLEX #2 11/26/24 01/15/25 Rx 178.7-7.3-0.5-1.12-0.9 gram oral mL soln (Suflave) tirzepatide 2.5 mg/0.5 mL 2.5 mg subcut QWEEK 11/26/2401/04 History subcutaneous pen injector (Mounjaro) Allergy/AdvReac Type Severity Reaction Status Date / Time No Known Allergies Allergy Verified 01/16/25 05:53 Family History Unknown Heart disease Cancer Kidney disease Breast cancer Lung cancer CHF (congestive heart failure) Father Myocardial infarction Brother Myocardial infarction Surgical History History of endometrial ablation History of colonoscopy H/O: hysterectomy Hx of cholecystectomy H/O tubal ligation History of weight loss surgery Social History Smoking Status: Never smoker second hand exposure: Yes alcohol intake: current substance use type: does not use caffeine: Yes ROS Constitutional Constitutional: Denies fatigue, fever(s), poor appetite, weight gain or weight loss Gastrointestinal Gastrointestinal: Denies belching, bloating, change in bowel habits, change in stool character, chewing difficulty, coffee ground emesis, constipation, cramping, diarrhea, dyspepsia, dysphagia, early sat (more content not included)... [facility] 01-16-2025 Consult note [facility] 11-26-2024 Evaluation note Diagnosis Onset Date Resolution Bloating acute November 26 9:28am Constipation acute November 26 025 9:28am Nausea acute November 26 9:28am [...] thoracic region acute December 18, 2024 11:56am Segmental and somatic dysfunction of cervical region acute January 05, 2025 9:09am Segmental and somatic dysfunction of lumbar region acute January 05, 2025 9:09am Segmental and somatic dysfunction of pelvic region acute January 05, 2025 9:09am Segmental and somatic dysfunction of thoracic region acute January 05, 2025 9:09am Bloating acute January 16 5:17am Constipation acute January 16, 2025 5:17am Nausea acute January 16 5:17am Rectal bleeding acute January 5:17am Rectal pain acute January 16 025 5:17am [facility] Work Phone: 1(466) 841-623506-18-2025 Evaluation note* Diagnosis Onset Date Resolution Status Admit Date Bloating acute November 26 9:28am Constipation acute November 26 025 9:28am Nausea acute November 26 9:28am Rectal bleeding acute November 9:28am Rectal pain acute November 26 9:28am H/O gastric bypass chronic November 092024 9:28am Segmental and somatic dysfunction of cervical region acute J darnell 2024 11:56am Segmental and somatic dysfunction of lumbar region acute Dec 11:56am Segmental and somatic dysfunction of pelvic region acute Dec 11:56am Segmental and somatic dysfunction of thoracic region acute J darnell 2024 11:56am Segmental and somatic dysfunction of cervical region acute J darnell 2024 9:09am Segmental and somatic dysfunction of lumbar region acute Dec 9:09am Segmental and somatic dysfunction of pelvic region acute Dec 9:09am Segmental and somatic dysfunction of thoracic region acute J darnell 2024 9:09am Bloating acute January 16 5:17am Constipation acute January 16, 2025 5:17am Nausea acute January 16 5:17am Rectal bleeding acute January 5:17am Rectal pain acute January 16 5:17am UTI (urinary tract infection) acute February 02, 2025 1:33pm [facility] Work Phone: 1(839) 640-732504-17-2025 Evaluation note* Diagnosis Onset Date Resolution Status Admit Date Segmental and somatic dysfunction of cervical region acute A pril 2024 10:18am Segmental and somatic dysfunction of lumbar region acute Sep 10:18am Segmental and somatic dysfunction of pelvic region acute Sep 10:18am Segmental and somatic dysfunction of thoracic region acute A pril 2024 10:18am Bloating acute November 26 9:28am Constipation acute November 26 025 9:28am Nausea acute November 26 9:28am Rectal bleeding acute November 9:28am Rectal pain acute November 26 9:28am H/O gastric bypass chronic November 092024 9:28am Segmental and somatic dysfunction of cervical region acute J darnell 2024 11:56am Segmental and somatic dysfunction of lumbar region acute Dec 11:56am Segmental and somatic dysfunction of pelvic region acute Dec 11:56am Segmental and somatic dysfunction of thoracic region acute J darnell 2024 11:56am [facility] Work Phone: 1(823) 290-369904-17-2025 Evaluation note* Diagnosis Onset Date Resolution Status [...] of cervical region acute J darnell 2024 11:56am Segmental and somatic dysfunction of lumbar region acute Dec 11:56am Segmental and somatic dysfunction of pelvic region acute Dec 11:56am Segmental and somatic dysfunction of thoracic region acute J darnell 2024 11:56am Segmental and somatic dysfunction of cervical region acute J darnell 2024 9:09am Segmental and somatic dysfunction of lumbar region acute Dec 9:09am Segmental and somatic dysfunction of pelvic region acute Dec 9:09am Segmental and somatic dysfunction of thoracic region acute J darnell 2024 9:09am [facility] Work Phone: 1(187) 788-556604-17-2025 Evaluation note* Diagnosis Onset Date Resolution Status [...] of cervical region acute J darnell 2024 11:56am Segmental and somatic dysfunction of lumbar region acute Dec 11:56am Segmental and somatic dysfunction of pelvic region acute Dec 11:56am Segmental and somatic dysfunction of thoracic region acute J darnell 2024 11:56am Segmental and somatic dysfunction of cervical region acute J darnell 2024 9:09am Segmental and somatic dysfunction of lumbar region acute Dec 9:09am Segmental and somatic dysfunction of pelvic region acute Dec 9:09am Segmental and somatic dysfunction of thoracic region acute J darnell 2024 9:09am Bloating acute January 16 5:17am Constipation acute January 16, 2025 5:17am Nausea acute January 16 5:17am Rectal bleeding acute January 5:17am Rectal pain acute January 16, 025 5:17am [facility] Work Phone: 1(555) 100-240403-05-2025 Evaluation note* Diagnosis Onset Date Resolution Status Admit Date Bacterial sinusitis acute August 13, 2024 8:27am Lower respiratory tract infection acute August 13, 2024 8:27am Solitary pulmonary nodule acute August 19, 2024 9:02am Segmental and somatic dysfunction of cervical region acute A pril 2024 10:18am Segmental and somatic dysfunction of lumbar region acute Apr 2024 10:18am Segmental and somatic dysfunction of pelvic region acute Sep 10:18am Segmental and somatic dysfunction of thoracic region acute A pril 2024 10:18am Bloating acute November 26 9:28am Constipation acute November 26, 025 9:28am Nausea acute November 26 9:28am Rectal bleeding acute November 9:28am Rectal pain acute November 26 9:28am H/O gastric bypass chronic November 092024 9:28am [facility] Work Phone: [phone] Telephone encounter Note* Telephone Encounter - Liya Walker - 01/16/2023 4:54 PM EDT Name of Caller: Amanda Contact Reason for Appointment: Pt needs to cancel upcoming appt and the pt sill call back to resx. Please advise Office Name: [facility] Medication Refills need, if any: NA Medication [facility]: NA [id number] Miscellaneous Notes* Telephone Encounter - Liya Walker - 01/16/2023 4:54 PM EDT Name of Caller: Amanda Contact Reason for Appointment: Pt needs to cancel upcoming appt and the pt sill call back to resx. Please advise Office Name: [facility] Medication Refills need, if any: NA Medication Name: NA documented in this [facility]03-18-2023 Hospital Discharge instructions Patient Education 08/26/2022 17:49:43 [...] Swelling, pain or redness in one leg [phone] [employer]. [address] [place] [address]. All rights reserved. This information is not intended as a substitute for professional medical care. Always follow yourhealthcare professional's instructions. Follow Up Care 08/26/2022 16:01:09 With:FRANKY PEARSON Address: [address] [place] [address] [place] [address]- [phone] Business (1) When:2-4 days Comments:Schedule appointment as soon as possibleReturn to ED if symptoms worsenClear liquid diet till 12noon and if symptoms do not recur increase as tolerated.Follow up for outpatient stress testing.Return for symptoms as described [facility] 03-18-2023 Note Discharge Instructions Thank you for allowing [facility] to assist you with your healthcare needs. The following is importantdischarge information regarding your hospital visit. Diagnosis from Today's Visit Chest pain Chest pain SOB - Shortness of breath What to Do Next Instructions from Your Care Team No qualifying data available. Post Acute Orders No qualifying data available. You Need to Schedule the Following Appointments Follow Up with FRAKNY PEARSON When Within 2-4 days Why: Schedule appointment as soon as possible Return to ED if symptoms worsen Clear liquid diet till 12noon and if symptoms do not recur increase as tolerated. Follow up for outpatient stress testing. Return for symptoms as described Where: [address] [facility] [place] [address]- [phone] Business (1) Allergies NKA Medications Please ask [...] Swelling, pain or redness in one leg [phone] [employer] [address] [place] [address]. All rights reserved. This information is not intended as a substitute for professional medical care. Always follow yourhealthcare professional's instructions. Additional Information VACCINATE! IT SAVES LIVES! Members of the community who have not yet received the COVID-19 vaccine and would like to receive it can visit one of [facility] vaccine clinics. There are many vaccine clinic locations within the [facility]. For locations and available times, please visit [email or web address] It is important to note that some COVID mobile vaccine clinics are held outdoors and may be canceled in rainy or stormy conditions. To learn more about pediatric vaccinations (ages 5-11), we invite you to visit the [facility] webpage. https://www.[facility].org/pages/1698-Yektf-Wabucjkfvea-Vqwvkicklc-Nlgyl-Teg stions.htmlTo learn more about the COVID-19 vaccine, we invite you to visit the CDC website for a list of frequently asked questions. https://www.cdc.gov/coronavirus/2019-ncov/vaccines/faq.html [facility] Patient Portal Access Instructions: Stay connected with your healthcare team and access your personal medical information anytime with the [employer] Patient Portal. If you would like a full copy of your medical records please contact the [facility] Medical Records Department Sunday through Sunday between 8a.m. and 4:30p.m. Please follow the directions below to access the portal: 1.Access the email account you provided upon registration to the [facility].2.Look for an invitation email from [facility].3.Open the email and access the invitation link: Accept Invitation to [facility]4.Fill in the required mckenzie to create your account. Sign into [email or web address] with your username and password that you [...] you will allow to register on the [employer] Patient Portal for access to your information. You can also access the [employer] Patient Portal on the [employer] ramírez. Simply click on Health Records under [employer] and then click on the [employer] logo. HOW TO SAFELY DISPOSE OF PRESCRIPTION [...] Call your local pharmacy or go to http://bit.frooly/2A6Oq2u to find one close to you.3.Make use of household items: Use cat litter or old coffee grounds to dispose medications if other options arenot available. Mix your drugs with these household products, seal them in an airtight container andthrow it into the garbage. Call [facility]: [phone] to be sure your drugs can be [...] am aware that I should contact my chris worrell. Patient/Shaper Operator Signature: Date/Time: Relationship to Patient: Witness Name/Signature: Date/Time: [facility]03-18-2023 Note ORIGINAL EXAMINATION: CT OF THE [...] Date: 08/26/2022 6:34:22 PM Ordering Provider: LINDA AMRTINEZ [facility]03-18-2023 Note ORIGINAL EXAMINATION: CT OF THE [...] Sign Date: 08/26/2022 6:34:22 PM Ordering Provider: [facility]03-18-2023 Note ORIGINAL EXAMINATION: ONE XRAY VIEW OF [...] Sign Date: 08/26/2022 5:14:04 PM Ordering Provider: [facility]03-18-2023 Note ORIGINAL EXAMINATION: ONE XRAY VIEW OF [...] Sign Date: 08/26/2022 5:14:04 PM Ordering Provider: [facility]03-10-2023 [facility] POST-OP WEIGHT LOSS MANAGEMENT PROGRESS NOTE [...] management, continue weight loss program Stable preDM Willempic 3 month supply Continue current management, continue [...] was performed.Clinical documentation is updated and completed. [facility] [id number] History of Present illness Narrative* Mary Mishra MA - 08/18/2022 2:10 PM EST [facility] ROOMING NOTE POST WEIGHT LOSS SURGERY FOLLOW UP Patient: Amandaalma Grubbs Service Date: 08/18/2022 Patient is 5 [...] If YES[facility]A If yes see Labs Tab Labs [...] is updated and completed. documented in this [facility]01-27-2023 [facility] POST-OP WEIGHT LOSS MANAGEMENT PROGRESS NOTE FOLLOW [...] preDM 4. Weight maintenance after bariatric surgery [facility] 07-07-2022 History of Present illness Narrative* Manuel [...] after bariatric surgery discussed documented in this [facility]01-13-2023 Note ORIGINAL HISTORY: Lung [...] Sign Date: 2022 12:43:51 PM Ordering Provider: [facility]01-13-2023 Note ORIGINAL HISTORY: Lung nodule COMPARISON: 02 [...] Sign Date: 2022 12:43:51 PM Ordering Provider: [facility]12-28-2022 Note [facility]ARE [facility] POST-OP WEIGHT LOSS [...] was performed.Clinical documentation is updated and completed. [facility] [id number] Evaluation + Plan noteExtracted from: Title:Clinical Document Author:ROBSON PUGH Date:03/03/22 [place] ADMISSION HISTORY AN D PHYSICIAL CHIEF COMPLAINT: HISTORY OF PRESENT ILLNESS: REVIEW OF SYSTEMS: ACTIVE PROBLEMS: (24) Abnormal mammogram (843174226) Abnormal screening computed tomography (CT) of lung (5592943014) Anxiety (13437025) Breast cancer screening (309521200) Cervical cancer screening (1880776800) Colon cancer screening (777708076) Encounter for well adult exam with abnormal findings (953870227) GERD (gastroesophageal reflux disease) (883034252) Hot flashes due to menopause (141617429) Immunization due (501102416) Insomnia (981979319) Major depression in remission (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) Nephrolithiasis (496941714) Obesity (6967872258) Post-menopausal (059758562) Pre-diabetes (6927083014) Preoperative evaluation of a medical condition to rule out surgical contraindications (TAR required) (414899036) Restless legs (72632877) Right arm pain (410380986) S/P gastric bypass (5222656614) Screening for cardiovascular condition (320210000) Somatic dysfunction of upper extremity (2958781668) Tobacco non-user (394970832) Viral syndrome (25487178) MEDICATIONS: Active Inpt Meds: None Active PRN Meds: None One Time Meds: None Active IV Meds: Lactated Ringers Infusion 1,000 mL (LR 1,000 mL) Start: 03/03/22 7:52:00 EDT, Rate: 50 mL/hr, 03/03/22 7:52:00 EDT ALLERGIES: (1) NKA FAMILY HISTORY: SOCIAL HISTORY: PHYSICAL EXAM: VITALS: BhuinzJedhNEVtfpuNPCiQ0UGI9IevoFq(kg) 03/03 07:5536.7126/55621779UC64/23 79.5 24 Hr Tmax: 36.7 at 03/03 [...] Date:04/04/2022 08:00:00 AM Scheduled Provider:FRANKY PEARSON DO Location:[facility] Appointment Type: OV Appointment Date:05/30/2022 09:00:00 AM Scheduled Provider:FRANKY PEARSON DO Location:[facility] Appointment Type: OV Future Scheduled Tests Laboratory* [...] 02/22/22 * Complete Metabolic Panel 08/22/21 * [facility] [place] out (Blood Specimens) 11/22/21 Radiology* US Breast Right Limited 08/08/22 * CT Thorax w/o Contrast 06/07/22 * [place] Mammogram Diagnostic Bilateral w/o Juma 01/01/22 [facility] 09-23-2022 Hospital Discharge instructions Patient Education [...] before eating solid foods. General instructions Take gnhg-zaz-ctpnwmn and prescription medicines only as told by [...] 09/17/2016 Document Revised: 08/26/2018 Document Reviewed: 09/17/2016 [employer] Patient Education 2020 [employer] 03/03/2022 09:18:09 Colonoscopy, Adult, Care After Colonoscopy, [...] a slower pace than normal. ?Eat soft, ktas-fs-edfbea foods. Take cmwq-llv-barlwop or prescription medicines only as told by [...] 01/09/2005 Document Revised: 03/20/2018 Document Reviewed: 08/08/2016 [employer] Patient Education 2020 [employer] Follow Up Care 01/09/2022 13:05:28 With:ROBSON PUGH MD Address: [address] [phone] When: Unknown Comments:Follow-up as needed [facility] 09-23-2022 Summary of episode note Discharge Instructions Thank you for allowing [facility] to assist you with your healthcare needs. The following is importantdischarge information regarding your hospital visit. Your Care Team FRANKY PEARSON DO What to do next Scheduled Follow-Up Appointments Appointment Type When With Where Contact InformationPC OV 04/04/2022 08:00 AM FRANKY APPIAH DO [facility] [address] [phone] PC OV 05/30/2022 09:00 AM FRANKY ODEN DO [facility] [address] [phone] Follow Up Appointments Follow Up with ROBSON PUGH MD When Why: Follow-up as needed Where: [address] [place] [address] [phone] Allergies NKA Medications Please ask your primary [...] before eating solid foods. General instructions Take qdrq-sfu-asnezqi and prescription medicines only as told by [...] 09/17/2016 Document Revised: 08/26/2018 Document Reviewed: 09/17/2016 [employer] Patient Education 2020 [employer] Colonoscopy, Adult, Care After This sheet [...] slower pace than normal. ? Eat soft, bldc-zm-zlboiy foods. Take fnih-xyp-luwspzo or prescription medicines only as told by [...] 01/09/2005 Document Revised: 03/20/2018 Document Reviewed: 08/08/2016 [employer] Patient Education 2020 [employer] Additional Information VACCINATE! IT SAVES LIVES! Members of the community who have not yet received the COVID-19 vaccine and would like to receive it can visit one of [facility] vaccine clinics. There are many vaccine clinic locations within the [facility]. For locations and available times, please visit [email or web address] It is important to note that some COVID mobile vaccine clinics are held outdoors and may be canceled in rainy or stormy conditions. To learn more about pediatric vaccinations (ages 5-11), we invite you to visit the [facility] webpage. https://www.[facility].org/pages/6298-Ealwm-Gchargjsfne-Aadsrpgglt-Tappq-Qas stions.htmlTo learn more about the COVID-19 vaccine, we invite you to visit the [employer] website for a list of frequently asked questions. [email or web address]-[email or web address]-[email or web address]-[email or web address]-Tcichcwqkx _[email or web address]-Questions.pdf [facility] Patient Portal Access Instructions: Stay connected with your healthcare team and access your personal medical information anytime with the [facility] Patient Portal.If you would like a full copy of your medical records, please contact the [facility] Medical Records Department, Sunday through Sunday between 8a.m. and 4:30p.m. Please follow the directions below to access the portal: 1.Access the email account you provided upon registration to the hospital.2.Look for an invitation email from [facility].3.Open the email and access the invitation link: Accept Invitation to [employer]4.Fill in the required mckenzie to create your account. Sign into [email or web address] with your username and password that you [...] you will allow to register on the [facility] Patient Portal for access to your information. You can also access the [employer] Patient Portal on the [employer] ramírez. Simply click on Health Records under [employer] and then click on the [employer] logo. [...] Call your local pharmacy or go to [email or web address].frooly/[email or web address] to find one close to you.3.Make use of household items: Use cat litter or old coffee grounds to dispose medications if other options arenot available. Mix your drugs with these household products, seal them in an airtight container andthrow it into the garbage. Call [facility]: [phone] to be sure your drugs can be [...] that I should contact my d octor. Patient/Shaper Operator Signature: Date/Time: Relationship to Patient: Witness Name/Signature: Date/Time: [facility]09-23-2022 Anesthesiology Consult note Patient: AMANDA GRUBBS Age: 51 years Sex: Female : 1970 Associated Diagnoses: None Author: SANTIAGO GUTIERREZ APRN-BROOMMAKING SUPERVISOR Assessment Postanesthesia assessment Vitals: Vital signs from [...] by SANTIAGO GUTIERREZ on 03/03/2022 09:12 AM [facility]09-23-2022 Anesthesiology Consult note Patient: AMANDA GRUBBS [...] Problem list: Medical Anxiety / SNOMED CT 75237657 / Confirmed Cervical cancer screening / SNOMED CT 0070646299 / Confirmed Abnormal screening computed tomography (CT) of lung / SNOMED CT 0954715125 / Confirmed GERD (gastroesophageal reflux disease) / SNOMED CT 527203016 / Confirmed S/P gastric bypass / SNOMED CT 8011391354 / Confirmed Immunization due / SNOMED CT 659814073 / Confirmed Insomnia / SNOMED CT 877632719 / Confirmed Nephrolithiasis / SNOMED CT 218403485 / Confirmed Major depression in remission / SNOMED CT 95181667 / Confirmed Abnormal mammogram / SNOMED CT 342989837 / Confirmed Hot flashes due to menopause / SNOMED CT 682406717 / Confirmed Obesity / SNOMED CT 5193562723 / Confirmed Right arm pain / SNOMED CT 966905651 / Confirmed Preoperative evaluation of a medical condition to rule out surgical contraindications (TAR required) / SNOMED CT 947843614 / Confirmed Screening for cardiovascular condition / SNOMED CT 917317454 / Confirmed Breast cancer screening / SNOMED CT 534719821 / Confirmed Colon cancer screening / SNOMED CT 145206509 / Confirmed Encounter for well adult exam with abnormal findings / SNOMED CT 843025570 / Confirmed Post-menopausal / SNOMED CT 620174446 / Confirmed Pre-diabetes / SNOMED CT 6313245329 / Confirmed Restless legs / SNOMED CT 00222737 / Confirmed Somatic dysfunction of upper extremity / SNOMED CT 4134814394 / Confirmed Tobacco non-user / SNOMED CT 567248906 / Confirmed Viral syndrome / SNOMED CT 37449764 / Confirmed, Active Problems (24) Abnormal mammogram [...] with small intestine reconstruction to limit absorption (99450). Endometrial ablation (006244200). Diagnostic laparoscopy of female pelvis (516307697). Hysterectomy (412210253). section (50721644). Comments: 03/03/2022 7:52 Rhonda Saxena RN x2 Cholecystectomy (81865135). Colonoscopy (858557445). Comments: 03/03/2022 7:53 Rhonda Saxena RN x2 Cystourethroscopy, with ureteroscopy and/or pyeloscopy; with removal or manipulation of calculus (ureteral catheterization is included) (52136). Entire finger (412785462). Comments: 03/03/2022 7:53 Rhonda Saxena RN right pinky Social History Social & Psychosocial Habits Alcohol 06/27/2019 Use: Current Frequency: 1-2 times per month Substance Abuse 06/27/2019 Use: Never Tobacco 06/27/2019 Tobacco Use: Never (less than 100 in l Home/Environment 03/03/2022 Domestic Concerns None Living situation: Home/Independent Primary Psychiatric Arnp: Self Current Home Treatments None Special Services [...] Vital Signs(last 24 hrs) Last Charted Temp Nznlvloh96.7 DegC (MAR 03 07:55) Heart Rate Sauainzve81 bpm (MAR 03 09:00) Resp Rate 19 br/min (MAR 03 09:00) KKE147 mmHg (MAR 03 08:55) DBP87 mmHg (MAR 03 08:55) BMI30.07 (MAR 03 07:55) Measurements from flowsheet : Measurements 03/03/2022 7:55 EDT Height 162.6 cm Admission Weight 79.5 kg Weight Method Stated [place] Body Weight 54.74 kg BSA Admission 1.85 [...] Surgeon SN - CAt - Role Performed Cement Loader 1 SN - CAt - Role Performed BROOMMAKING SUPERVISOR SN - CAt - Role Performed Child Watch Attendant 03/03/2022 8:53 EDT L[place] History and Physical 03/03/2022 8:09 EDT Continuous [...] #1 We May Share PHI Gilles Grubbs [phone] Designated Person #1 Relationship Spouse Designated Person #2 We May Share PHI Jimmy Grubbs [phone] Designated Person #2 Relationship Daughter Privacy Restrictions Requested None Height 162.6 cm Admission Weight 79.5 kg Weight Method Stated [place] Body Weight 54.74 kg BSA Admission 1.85 [...] Method Explanation, Printed materials Preferred Written Language Iraqi Preferred Spoken Language Iraqi Information Given by Patient Patient's Current Physicians [...] Note-Nursing Procedure/Therapy Intake . Assessment and Plan [place] [employer] Anesthesiologists (ASA) physical status classification: Class III. Anesthetic Preoperative Plan Anesthetic technique: MAC. Informed consent: signed by patient. Digitally Signed by SANTIAGO GUTIERREZ on 03/03/2022 09:08 AM [facility]09-23-2022 Note [place] ADMISSION HISTORY AND PHYSICIAL CHIEF COMPLAINT: HISTORY OF PRESENT ILLNESS: REVIEW OF SYSTEMS: ACTIVE PROBLEMS: (24) Abnormal mammogram (665930741) Abnormal screening computed tomography (CT) of lung (1117987447) Anxiety (69619210) Breast cancer screening (288517720) Cervical cancer screening (5029103714) Colon cancer screening (218447940) Encounter for well adult exam with abnormal findings (643719877) GERD (gastroesophageal reflux disease) (708310425) Hot flashes due to menopause (432664854) Immunization due (072079584) Insomnia (397225022) Major depression in remission (37800849) Nephrolithiasis (176522594) Obesity (0312446138) Post-menopausal (556420294) Pre-diabetes (2636356847) Preoperative evaluation of a medical condition to rule out surgical contraindications (TAR required) (974761939) Restless legs (66504042) Right arm pain (745117907) S/P gastric bypass (1616814111) Screening for cardiovascular condition (541930007) Somatic dysfunction of upper extremity (1240304502) Tobacco non-user (780229755) Viral syndrome (79347651) MEDICATIONS: Active Inpt Meds: None Active PRN Meds: None One Time Meds: None Active IV Meds: Lactated Ringers Infusion 1,000 mL (LR 1,000 mL) Start: 03/03/22 7:52:00 EDT, Rate: 50 mL/hr, 03/03/22 7:52:00 EDT ALLERGIES: (1) NKA FAMILY HISTORY: SOCIAL HISTORY: PHYSICAL EXAM: VITALS: VnbrphVoqkCCKyljgXKMlM1ZWZ5KhxuMr(kg) 03/03 07:5536.7126/01305837YD24/23 79.5 24 Hr Tmax: 36.7 at 03/03 [...] ROBSON PUGH MD on 03/03/2022 08:58 AM [facility]03-14-2022 Evaluation + Plan note Future Scheduled [...] 02/22/22 * Complete Metabolic Panel 08/22/21 * [facility] [place] (Blood Specimens) 11/22/21 Radiology* MA Mammogram Diagnostic Bilateral w/o Juma 01/01/22 * US Breast Right Complete 01/01/22 [facility] 03-14-2022 Evaluation + Plan note Future [...] 02/22/22 * Complete Metabolic Panel 08/22/21 * [facility] [place] out (Blood Specimens) 11/22/21 Radiology* CT Thorax w/o Contrast 06/07/22 * MA Mammogram Diagnostic Bilateral w/o Juma 01/01/22 [facility] 12-12-2021 Hospital Discharge instructions Patient Education [...] If needed, more treatment may be started. 7906-0720 [employer] [address] [place] [address]. All rights reserved. This information is not [...] neck Chest pain not caused by coughing 9380-6522 [employer] [address] [place] [address]. All rights reserved. This information is not [...] foods again, start with small amounts of xptn-cv-[id number], low- fat foods. These include apple sauce, [...] increase stomach acid. Don't use aspirin or ffcc-cdw-vxaanyq pain and fever medicines, if possible. This includes nonsteroidal anti-inflammatory drugs (NSAIDs). Lose excess weight. Finish eating at least 2 hours before you go to bed or lie down. Raise the head of your bed. 2050-5346 [employer] [address] [place] [address], [place] [address]. All rights reserved. This information is not intended as a substitute for professional medical care. Always follow yourhealthcare professional's instructions. Follow Up Care 05/22/2021 04:01:53 With:FRANKY PEARSON DO Address: [phone] When:2-4 days [facility] Consult note Author Basilio Skinner [facility] Note Date/Time January 16, 2025 6:3 6am [facility] Medical Records Department [address] [place] [address] Pre-Anesthesia Evaluation 01/16/25 0632 MR#: [id number] Acct: [id number] Name: AMANDA GRUBBS Rep #:[id number] : 1970 54 From: Basilio Skinner MD PCP: Dr. Franky Pearson, DO Status:REG SDC Y Race: C Location: [place] [address] ASA Classification* ASA Classification ASA Classification: 2 Assessment & Plan Anesthesia* Anesthesia Assessment Anesthesia Assessment: Discussed sedation and/or anesthesia options, risks, benefits, and alternatives with patient/parents/legal guardian/POA. Questions invited. The patient/parents/legal guardian/POA seems to understand and agrees to proceedwith anesthesia plan. Reviewed the physical assessment, medical history, allergy history and patient home medications list prior to surgery/procedure/anesthetic and documented any changes. Performed airway and anesthesia risk assessments. Anesthesia Type Anesthesia Type: MAC History Source History Obtained from:: Patient and Chart Anesthesia Focused Assessment* Temperature: 98.0 F Pulse Rate: 76 Blood Pressure: 126/84 Respiratory Rate: 20 Pulse Ox: 100 Oxygen Delivery Method: Room Air Airway Assessment Mouth opens: >3 cm Mallampati Score: III Teeth Condition: Chipped/Broken (Tooth #2 is broken. Rest are tight.) and Partial (Upper partials out.) Neck Range of motion (ROM): Full ROM Labs Anesthesia Preop lab: CBC WBC 6.6 K/mm3 (4.4-11.0) 07/01/24 14:50 07/01/24 RBC 3.88 M/mm3 (4.2-5.4) L 07/01/24 14:50 07/01/24 Hgb 11.7 g/dL (12.0-15.0) L 07/01/24 14:50 5 Hct 36.8 % (37-47) L 07/01/24 14:50 07/01/24 Plt Count 288 K/mm3 (150-450) 07/01/24 14:50 07/01/24 CHEMISTRY Potassium 4.3 mmol/L (3.5-5.1) 07/01/24 14:50 07/01/24 Sodium 141 mmol/L (136-145) 07/01/24 14:50 07/01/24 Magnesium 2.2 mg/dL (1.6-2.6) 05/06/24 11:53 05/06/24 Phosphorus 4.5 mg/dL (2.5-4.9) 05/06/24 11:53 05/06/24 BUN 9 mg/dL (7-18) 07/01/24 14:50 07/01/24 Creatinine 0.93 mg/dL (0.55-1.02) 07/01/24 14:50 07/01/24 Glucose 148 mg/dL (74-106) H 07/01/24 14:50 07/01/24 TSH 0.846 uIU/mL (0.358-3.740) 07/01/24 14:50 06/12 07/05 COAG Pre-Assessment Diagnosis/Proposed Procedure Planned Operative Procedure(s): COLONOSCOPY, EGD Anesthesia History 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 When Was Last Pacemaker Check QUESTION #4 FULL TEXT: You/Your Family Experience fever (hyperthermia) with Anesthesia Last Oral Intake Last Oral intake: Last Oral Intake NPO since 12:30 01/16/25 05:54 Meds taken in AM with sips of No 01/16/25 05:54 water? Meds patient instructed to take am of surgery PONV PONV - amusement ride operator: PONV - amusement ride operator Female No 01/13/25 13:38 HX of Motion Sickness Yes 01/13/25 13:38 HX of N/V After Surgery Yes 01/13/25 13:38 Non-Smoker Yes 01/13/25 13:38 Duration of Surgery greater No 01/13/25 13:38 than 60 minutes Number of Risk Factors 3 01/13/25 13:38 PONV Score Moderate Risk 01/13/25 13:38 Height & Weight Height & Weight: Anesthesia: Height & Weight Height 5 ft 3 in 01/16/25 05:54 Weight: 74 kg 01/16/25 05:54 Body Mass Index (BMI) 28.9 01/16/25 05:54 Respiratory Assessment Respiratory Assessment - amusement ride operator: Respiratory Tract Infection Hx - amusement ride operator Hx Respiratory Tract Infection No 01/13/25 13:38 STOP Sleep Apnea STOP Sleep Apnea - amusement ride operator: STOP Sleep Apnea - amusement ride operator Hx Hypertension No 01/13/25 13:38 Hx Sleep Apnea No 01/13/25 13:38 CPAP BIPAP Do you snore loudly (louder No 01/13/25 13:38 than talking or can be heard Do you often feel tired/ No 01/13/25 13:38 fatigued/ sleepy during daytime? Has anyone observed you stop No 01/13/25 13:38 breathing during sleep? STOP Results Negative 01/13/25 13:38 QUESTION #5 FULL TEXT : Do you snore loudly (louder than talking or can be heard through closed doors)? 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 Specify any problems Hx of Preganancy in last 3 No 01/13/25 13:38 Months Nurse Filling Out Transfusion [email or web address] 01/13/25 13:38 & Questions: Date: 01/13/25 01/13/25 13:38 Time: 13:41 01/13/25 13:38 Patient unable to answer at this time (ie. 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 Hx Now Gestational Age (in weeks): EDC: Hx Hx Para Hx Section SAB Active Medications Active Medications: Current Medications Generic Name Dose Route Start Last Admin Trade Name Freq PRN Reason Stop Dose Admin Lactated Ringer's 1,000 mls @ 15 mls/hr 01/16/25 06:00 01/16/25 06:02 IV 15 mls/hr .Q48H KATHERYN Administration PFSH Medical History Kidney stones Wears glasses Wears partial dentures Depression Thyroid disease Back pain Migraine headache Non-smoker History of IBS Gastric reflux History of stress test History of echocardiogram Cardiology follow-up encounter Lower respiratory tract infection Bacterial sinusitis Anginal pain Somatic dysfunction of lower extremity Psoriatic arthritis Prediabetes Family history of ischemic heart disease Anxiety Secondary insomnia Iron deficiency B12 deficiency Major depression in remission Hypothyroid Anemia Acute pharyngitis, unspecified Aphthous ulcer of mouth delivery delivered Home Medications ?Medication ?Instructions ?Recorded ?Last Taken ?Type Diltiazem 2% / Lidocaine 5% #30 grams 11/26/24 Unknown Rx ointment (compound) acetaminophen 325 mg tablet 325 mg PO ONCE PRN pain 01/15/25 History (Tylenol) bupropion HCl 75 mg tablet 75 mg PO TID 11/26/2401/15 History docusate sodium 100 mg capsule 100 mg PO BID #60 caps 11/26/24 Unknown Rx fexofenadine 60 mg tablet (Becca 60 mg PO BID PRN al lergy symptoms 11/26/24 01/15/25 History Allergy) linaclotide 290 mcg capsule 290 mcg PO QAM #90 caps 01/14/25 Rx (Linzess) lorazepam 0.5 mg tablet (Ativan) 0.25 mg PO DAILY PRN anxiety 11/26/24 01/15/25 History multivitamin 1 tab PO QDAY 11/26/2401/14 History omeprazole 40 mg capsule,delayed 40 mg PO QDAY #90 cap s 11/26/24 01/15/25 Rx release peg 3350-sod sulf,htggf-zte-zom See Rx Instructions PO .COMPLEX #2 11/26/24 01/15/25 Rx 178.7-7.3-0.5-1.12-0.9 gram oral mL soln (Suflave) tirzepatide 2.5 mg/0.5 mL 2.5 mg subcut QWEEK 11/26/24 01/04/25 History subcutaneous pen injector (Mounjaro) Allergy/AdvReac Type Severity Reaction Status Date / Time No Known Allergies Allergy Verified 01/16/25 05:53 Family History Unknown Heart disease Cancer Kidney disease Breast cancer Lung cancer CHF (congestive heart failure) Father Myocardial infarction Brother Myocardial infarction Surgical History History of endometrial ablation History of colonoscopy H/O: hysterectomy Hx of cholecystectomy H/O tubal ligation History of weight loss surgery Social History Smoking Status: Never smoker second hand exposure: Yes alcohol intake: current substance use type: does not use caffeine: Yes Review of Systems (Anesthesia) ROS Narrative System reviewed and no additional complaints, except as documented. 01/16/25 0636 <Electronically signed by Basilio dobson MD> Date _ Basilio Skinner MD Cosigner Signature: Date CC: ~ Signed [facility] Work Phone: Consult note Author Frederic Nicole [facility] Note Date/Time January 16, 2025 7:2 0am [facility] Medical Records Department [address] [place] [address] Anesthesia Postop Eval I 01/16/25718 MR#: [id number] Acct: [id number] Name: AMANDA GRUBBS Rep #:[id number] : 1970 54 From: Frederic Nicole PCP: Dr. Franky Pearson, DO Status:REG SDC Y Race: C Location: [place] [address] Anesthesia: Postop Eval I Current Vital Signs Temperature: 97.3 F Pulse Rate: 76 Blood Pressure: 101/64 Respiratory Rate: 16 Pulse Ox: 100 Oxygen Delivery Method: Room Air Assessment Airway patent: Yes Spontaneous unlabored respirations: Yes Mental status: Awake and Calm nausea: No Vomiting: No Anesthesia Complication: No Fluid Hydration Crystalloid volume administer (ml): 500 Total IV fluid infused: 500 Progress Note Anesthesia document: Postop Eval 1 completed: Yes 01/16/25719 <Electronically signed by Frederic Nicole > Date _ Frederic Barney Signature: Date CC: ~ Signed [facility] Work Phone: Evaluation + Plan note Future Appointments Appointment Date:05/31/2021 08:30:00 AM Scheduled Provider:FRANKY PEARSON DO Location:[facility] Appointment Type:PC OV Follow Up Appointment Date:06/20/2021 08:30:00 AM Scheduled Provider: Location:[facility] Appointment Type:US Breast Right Complete Future Scheduled Tests Radiology* US Breast Right Complete 06/20/21 [facility] Evaluation + Plan note Future Appointments Appointment Date:08/31/2021 08:30:00 AM Scheduled Provider:FRANKY PEARSON DO Location:[facility] Appointment Type:PC OV Follow Up Future Scheduled Tests Radiology* CT Thorax w/o Contrast 06/28/21 [facility] Evaluation + Plan note Future Appointments Appointment Date:08/31/2021 08:30:00 AM Scheduled Provider:FRANKY PEARSON DO Location:[facility] Appointment Type:PC OV Follow Up Future Scheduled Tests Radiology* MA Mammogram Diagnostic Bilateral w/o Juma 01/01/22 * US Breast Right Complete 01/01/22 [facility] Evaluation + Plan note Future Appointments Appointment Date:05/30/2022 09:00:00 AM Scheduled Provider:FRANKY PEARSON DO Location:[facility] Appointment Type:PC OV Future Scheduled [...] 08/22/21 * Complete Metabolic Panel 08/22/21 * [facility] [place] (Blood Specimens) 11/22/21 Radiology* US Breast Right Limited 08/08/22 * CT Thorax w/o Contrast 06/07/22 * MA Mammogram Diagnostic Bilateral w/o Juma 01/01/22 [facility] Evaluation + Plan note Future Appointments Appointment Date:05/30/2022 09:00:00 AM Scheduled Provider:FRANKY PEARSON DO Location:[facility] Appointment Type:PC OV Diagnostic Tests Pending * Zinc Level 04/26/22 * Vitamin B1 (Thiamine), Whole Blood 04/26/22 Future Scheduled Tests Laboratory* Ferritin 11/22/21 * Folate Level 08/22/21 * Vitamin B12 Level 11/22/21 * Zinc Level 11/22/21 * [facility] [place] out (Blood Specimens) 11/22/21 Radiology* US Breast Right Limited 08/08/22 * CT Thorax w/o Contrast 06/07/22 * MA Mammogram Diagnostic Bilateral w/o Juma 01/01/22 [facility] Evaluation + Plan note Future Appointments Appointment Date:08/24/2022 08:00:00 AM Scheduled Provider:FRANKY PEARSON DO Location:[facility] Appointment Type:PC Wellness Annual Future Scheduled Tests Laboratory* Ferritin 11/22/21 * Folate Level 08/22/21 * Vitamin B12 Level 11/22/21 * Zinc Level 11/22/21 * [facility] [place] out (Blood Specimens) 11/22/21 Radiology* US Breast Right Limited 08/08/22 * CT Thorax w/o Contrast 06/23/23 * MA Mammogram Diagnostic Bilateral w/o Juma 01/01/22 [facility] Evaluation + Plan note Future Appointments Appointment Date:08/24/2022 08:00:00 AM Scheduled Provider:FRANKY PEARSON DO Location:[facility] Appointment Type: Wellness Annual Future Scheduled Tests Laboratory* Ferritin 11/22/21 * Vitamin B12 Level 11/22/21 * Zinc Level 11/22/21 * [facility] [place] out (Blood Specimens) 11/22/21 Radiology* CT Thorax w/o Contrast 06/23/23 * MA Mammogram Diagnostic Bilateral w/o Juma 01/01/22 [facility] Evaluation + Plan note Future Appointments Appointment Date:11/29/2022 08:00:00 AM Scheduled Provider:FRANKY PEARSON DO Location:[facility] Appointment Type:PC OV Future [...] 08/24/22 * Complete Metabolic Panel 08/24/22 * [facility] Lab Send out (Blood Specimens) 11/22/21 Radiology* US Breast Right Limited 02/09/23 * BD Bone Density DEXA Axial Skeleton 12/09/22 * CT Thorax w/o Contrast 06/23/23 * MA Mammogram Diagnostic Bilateral w/o Juma 01/01/22 * MA Mammogram Diagnostic Bilateral w/o Juma 02/09/23 [facility] Evaluation + Plan note Future Appointments Appointment Date:09/13/2022 08:00:00 AM Scheduled Provider: Location:[facility] Appointment Type:CV Procedure - AOH Echo Appointment Date:09/19/2022 07:45:00 AM Scheduled Provider: Location:[facility] Appointment Type:HL Plain Stress Test Appointment Date:11/29/2022 08:00:00 AM Scheduled Provider:FRANKY PEARSON DO Location:[facility] Appointment Type:PC OV Diagnostic Tests Pending * Vitamin B1 (Thiamine), Whole Blood 09/02/22 * Zinc Level 09/02/22 Future Scheduled Tests Laboratory* Ferritin 11/22/21 * Vitamin B12 Level 11/22/21 * Zinc Level 11/22/21 * [facility] 11/22/21 Radiology* US Breast Right Limited 02/09/23 * BD Bone Density DEXA Axial Skeleton 12/09/22 * CT Thorax w/o Contrast 06/23/23 * MA Mammogram Diagnostic Bilateral w/o Juma 01/01/22 * MA Mammogram Diagnostic Bilateral w/o Juma 02/09/23 [facility] Evaluation + Plan note Future Appointments Appointment Date:09/19/2022 07:45:00 AM Scheduled Provider: Location:[facility] Appointment Type:HL Plain Stress Test Appointment Date:11/29/2022 08:00:00 AM Scheduled Provider:FRANKY PEARSON DO Location:[facility] Appointment Type:PC OV Future Scheduled Tests Laboratory* Ferritin 11/22/21 * Vitamin B12 Level 11/22/21 * Zinc Level 11/22/21 * [facility] Lab Send out (Blood Specimens) 11/22/21 Radiology* US Breast Right Limited 02/09/23 * BD Bone Density DEXA Axial Skeleton 12/09/22 * CT Thorax w/o Contrast 06/23/23 * MA Mammogram Diagnostic Bilateral w/o Juma 01/01/22 * MA Mammogram Diagnostic Bilateral w/o Juma 02/09/23 [facility] Evaluation note* Diagnosis Pre-diabetes- Primary Other [...] acute Back pain noneactive Maxillary sinusitis acute [facility] Work Phone: Evaluation note* Diagnosis Onset Date Resolution Status Maxillary sinusitis acute [facility] Work Phone: Evaluation noteNo assessment information available [facility] Work Phone: evaluation note* Diagnosis Pre-diabetes- Primary Other abnormal glucose S/P bariatric surgery Weight gain Other symptoms concerning nutrition, metabolism, and development BMI 32.0-32.9,adult Class 1 obesity with serious comorbidity and body mass index (BMI) of 32.0 to 32.9 in adult, unspecified obesity type documented in this encounter [facility] Author Rock Friend [facility] Note Date/Time January 16, 2025 6:4 0am [facility] Medical Records Department [address] [place] [address] History & Physical Exam 01/16/25 0638 MR#: [id number] Acct: [id number] Name: AMANDA GRUBBS Rep #:[id number] : 1970 54 From: Rock Pineda DO PCP: Dr. Franky Pearson DO Status:[facility] Location: [address] - General General Date of Admission: 01/16/25 Date of Service: 01/16/25 Chief Complaint: abdominal pain, bloating, N/V, bleeding HPI Narrative AMANDA GRUBBS, is a 54 F who presents with the Chief Complaint: abdominal pain, bloating, N/V, bleeding Gastric bypass 2018 hysterectomy 2014 total CCX 2002 - occasional alcohol - never smoker - c/o bloody stools, nausea, diarrhea, constipation, abdominal pain, bloating and HB - just switched from Ozempic to Mounjaro - she has constipation and then when she tries to have a BM, like razor bladesBRBPR - this past Sunday, she had bad [...] shakes very little protein and fiber intake [facility] Medical History Kidney stones Wears glasses Wears partial dentures Depression Thyroid disease Back pain Migraine headache Non-smoker History of IBS Gastric reflux History of stress test History of echocardiogram Cardiology follow-up encounter Lower respiratory tract infection Bacterial sinusitis Anginal pain Somatic dysfunction of lower extremity Psoriatic arthritis Prediabetes Family history of ischemic heart disease Anxiety Secondary insomnia Iron deficiency B12 deficiency Major depression in remission Hypothyroid Anemia Acute pharyngitis, unspecified Aphthous ulcer of mouth delivery delivered Home Medications ?Medication ?Instructions ?Recorded ?Last Taken ?Type Diltiazem 2% / Lidocaine 5% #30 grams 11/26/24 Unknown Rx ointment (compound) acetaminophen 325 mg tablet 325 mg PO ONCE PRN pain 01/15/25 History (Tylenol) bupropion HCl 75 mg tablet 75 mg PO TID 11/26/2401/15 History docusate sodium 100 mg capsule 100 mg PO BID #60 caps 11/26/24 Unknown Rx fexofenadine 60 mg tablet (Becca 60 mg PO BID PRN al lergy symptoms 11/26/24 01/15/25 History Allergy) linaclotide 290 mcg capsule 290 mcg PO QAM #90 caps 01/14/25 Rx (Linzess) lorazepam 0.5 mg tablet (Ativan) 0.25 mg PO DAILY PRN anxiety 11/26/24 01/15/25 History multivitamin 1 tab PO QDAY 11/26/2401/14 History omeprazole 40 mg capsule,delayed 40 mg PO QDAY #90 cap s 11/26/24 01/15/25 Rx release peg 3350-sod sulf,zalca-zaf-qam See Rx Instructions PO .COMPLEX #2 11/26/24 01/15/25 Rx 178.7-7.3-0.5-1.12-0.9 gram oral mL soln (Suflave) tirzepatide 2.5 mg/0.5 mL 2.5 mg subcut QWEEK 11/26/24 01/04/25 History subcutaneous pen injector (Mounjaro) Allergy/AdvReac Type Severity Reaction Status Date / Time No Known Allergies Allergy Verified 01/16/25 05:53 Family History Unknown Heart disease Cancer Kidney disease Breast cancer Lung cancer CHF (congestive heart failure) Father Myocardial infarction Brother Myocardial infarction Surgical History History of endometrial ablation History of colonoscopy H/O: hysterectomy Hx of cholecystectomy H/O tubal ligation History of weight loss surgery Social History Smoking Status: Never smoker second hand exposure: Yes alcohol intake: current substance use type: does not use caffeine: Yes ROS Constitutional Constitutional: Denies fatigue, fever(s), poor appetite, weight gain or weight loss Gastrointestinal Gastrointestinal: Denies belching, bloating, change in bowel habits, change in stool character, chewing difficulty, coffee ground emesis, constipation, cramping, diarrhea, dyspepsia, dysphagia, early satiety, excessive flatus, fecalincontinence, heartburn, hematemesis, hematochezia, hemorrhoids, loose stools, melena, nausea, odynophagia, rectal bleeding, tenesmus, vomiting or weight changes Vital Signs Vital Signs Vital Signs: 01/16/25 05:54 01/16/25 05:54 01/16/25 06:36 Temperature 98.0 F 98.0 F Temperature Source Temporal Pulse Rate 76 76 Respiratory Rate 20 H 20 H Respiratory Pattern Normal Blood Pressure 126/84 H 126/84 H Blood Pressure Mean 98 Blood Pressure Source Monitor Blood Pressure Position Semi-Fowlers Blood Pressure Location Left Arm Pulse Ox 100 100 Oxygen Delivery Method Room Air Room Air Weight Weight: 163 lb 2.273 oz Body Mass Index (BMI) 28.9 Physical Exam Const alert, oriented x3, no apparent distress and healthy appearing General Appearance: cooperative GI normal to inspection, nondistended, normoactive bowel sounds, soft to palpation,non-tender and non-distended Percussion: normal to percussion Rectal Exam: deferred Assessment & Plan Assessment/Plan (1) Rectal bleeding: (2) Constipation: (3) Bloating: (4) Nausea: (5) Rectal pain: PLAN: Assessment and Plan Assessment and Plan (1) H/O gastric bypass: Status: Chronic (2) Rectal pain: Status: Acute (3) Nausea: Status: Acute (4) Bloating: Status: Acute (5) Constipation: Status: Acute (6) Rectal bleeding: Status: Acute Medications: New omeprazole take once daily 30 minutes before breakfast 40 mg PO QDAY 90 caps 1RF Diltiazem 2% / Lidocaine 5% ointment (compound) insert a pea sized amount into rectum TID PRN rectal pain 30 grams 0RF peg 3350-sod sulf,[id number] 178.7-7.3-0.5 gram (Suflave) as directed for split dose bowel prep 2 mL 0RF docusate sodium 100 mg PO BID 60 caps 2RF linaclotide (Linzess) take once daily 30 minutes before breakfast 290 mcg PO QAM 90 caps 1RF Discontinued omeprazole Discontinued Reason: Order Changed 20 mg PO DAILY Plan A 54-year-old female presents for initial consultation with chronic constipation, rectal pain, and intermittent rectal bleeding associated with hardstools. She also reports upper esophageal burning without dysphagia and a loss of appetite. Her history is significant for gastric bypass in 2018 and GLP-1 agonist use for weight loss over the past 2 years. Diet and fluid intake are notably poor. She reports having bowel movements only every 5?7 days, with hard stools, straining, and a sensation of incomplete evacuation. This past weekend, she experienced a sudden onset of intense abdominal cramping followed by a single episode of urgent, bloody diarrhea. She denies any ongoing cramping and has no history of HRT, hypercoagulability, or CAD. Suspect rectal pain is likelydue to an anal fissure; started diltiazem/lidocaine cream. Constipation is likely multifactorial: poor diet/fluid intake, GLP-1 use; started docusate and Linzess 290 mcg daily, recommended use of Squatty Potty, and discussed possible future anorectal manometry. Advised follow-up with PCP to consider reducing GLP-1 dosing. Reviewed risks of poor nutrition post-bariatric surgery, including vitamin deficiencies, sarcopenia, alopecia, and visual changes. One-time episodeof bloody diarrhea with cramping is concerning for possible ischemic colitis; scheduled colonoscopy and EGD. Advised that recurrence warrants expedited colonoscopy. Increased PPI to 40 mg daily. Patient Instructions: Increase Omeprazole to 40mg once daily Squatty Potty Colon & EGD, if you have another episodes of intense abdominal cramping and bloody diarrhea contact office to move up colonoscopy (1/2d Miralax and 1d SuFlave) Diltiazem / Lidocaine cream Consider Anorectal Manometry in the future Docusate stool softener twice a day Linzess 290mcg once daily Follow-up with PCP to discuss decreasing Mounjaro dosing due to exceptionally poor nutritional intake Follow-up in office post procedure, sooner for worsening of symptoms 01/16/25 0640 <Electronically signed by Rock Pineda DO> Cosigner Signature (if applicable): CC: Dr. Franky Pearson DO; Rock Pineda DO~ Signed [facility] Work Phone: Hospital course Narrative No data available for this section [facility] Hospital Discharge instructions No data available for this section [facility] Hospital Discharge instructionsAmbulatory Orders* Urology Location: None Selected [facility] Work Phone: Progress note No data available for this section [facility] Reason for referral (narrative)No reason for referral [facility] Work Phone: Summary Purpose Family History No [...] FoundDocuments on File Type Date Recorded 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 Advance Directives and Living Will Power of Card Game Operator Latest Code Status on File Code Status Date Activated Date Inactivated Comments Full Code 08/30/2018 12:11 PM 08/30/2018 4:55 PM Full Code 04/09/2018 8:24 AM 04/10/2018 2:44 PM Full Code 04/08/2018 7:00 PM 04/09/2018 8:24 AM Full Code 04/08/2018 11:06 AM 04/08/2018 6:41 PM Full Code 11/27/2017 7:08 AM 11/27/2017 4:38 PM Documents on File Type Date Recorded 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 Yes January 13, 2025 1:38pm Name of Medical Power of Card Game Operator January 13, 2025 1:38pm Hospital Course Note Discharge Summary Amanda Varner To kristine : 1970 ADMIT DATE: 04/08/2018 DISCHARGE DATE: [...] a 47 y.o. female who presented to [facility] on 04/08/2018 for elective LRYGB. She [...] not included)... Note OPERATIVE NOTE DATE OF DUR: 04/08/2018 SURGEON: Rolan Jordan DRUM SANDER: uRben Truong MD PREOPERATIVE DIAGNOSIS: ? SANDY ? [...] Findings Note OPERATIVE NOTE DATE OF PROCE DUR: 04/08/2018 SURGEON: Rolan Jordan DRUM SANDER: Ruben Truong MD PREOPERATIVE DIAGNOSIS: ? SANDY [...] medical observation under (more content not included)... Chief Complaint and [...] 11:56am Segmental and somatic dysfunction of pel rikcy region December 18, 2024 11:56am Segmental and [...] tho racic region January 05, 2025 9:09am Reason for Visit Admit Date Segmental and [...] tho racic region January 05, 2025 9:09am Bloating January 16, 2025 5:1 7am Constipation January 16, 2025 5:1 7am Nausea January 16, 2025 5:1 7am Rectal bleeding January 16, 2025 5:1 7am Rectal pain January 16, 2025 5:1 7am Chief Complaint Admit Date CONSTIPATION BLOODY DIARRHEA November 26, 2024 9:28am BACK PAIN December 18, 2024 11:5 6am BACK PAIN January 05, 2025 9:09 am Test Result January 29, 2025 9: 03am Reason for Visit Admit Date Bloating November 26, 2024 9:28 am Constipation [...] tho racic region January 05, 2025 9:09am Bloating January 16, 2025 5:1 7am Constipation January 16, 2025 5:1 7am Nausea January 16, 2025 5:1 7am Rectal bleeding January 16, 2025 5:1 7am Rectal pain January 16, 2025 5:1 7am Chief Complaint Admit Date CONSTIPATION BLOODY DIARRHEA November 26, 2024 9:28am BACK PAIN December 18, 2024 11:5 6am BACK PAIN January 05, 2025 9:09 am Test Result January 29, 2025 9: 03am CONCERN FOR UTI February 02, 2025 1: 33pm Reason for Visit Admit Date Bloating November 26, 2024 9:28 am Constipation [...] tho racic region January 05, 2025 9:09am Bloating January 16, 2025 5:1 7am Constipation January 16, 2025 5:1 7am Nausea January 16, 2025 5:1 7am Rectal bleeding January 16, 2025 5:1 7am Rectal pain January 16, 2025 5:1 7am UTI (urinary tract infection) January 1:33pm Chief Complaint Admit Date CONSTIPATION BLOODY DIARRHEA November 26, 2024 9:28am BACK PAIN December 18, 2024 11:5 6am BACK PAIN January 05, 2025 9:09 am Test Result January 29, 2025 9: 03am CONCERN FOR UTI February 02, 2025 1: 33pm RIGHT FOOT February 06, 2025 8: 20am Room 5 February 06, 2025 8: 39am Additional Source Comments INFORMATION SOURCE (unrecogn ized section and content) DATE CREATED AUTHOR 05/18/2018 [facility] DATE CREATED AUTHOR AUTHOR'S ORGANIZ ATION 03/31/2019 [facility] DATE CREATED AUTHOR AUTHOR'S ORGANIZ ATION 01/01/2020 [facility] DATE CREATED AUTHOR AUTHOR'S ORGANIZ ATION 02/03/2020 [facility] DATE CREATED AUTHOR AUTHOR'S ORGANIZ ATION 03/16/2020 [facility] DATE CREATED AUTHOR AUTHOR'S ORGANIZ ATION 09/21/2022 [facility] ([place] DATE CREATED AUTHOR AUTHOR'S ORGANIZ ATION 01/17/2023 [facility] DATE CREATED AUTHOR AUTHOR'S ORGANIZ ATION 03/04/2025 [facility] Care Team (unrecognized sect ion and content) Personnel Name: FRANKY PEARSON DO Address: Address: [address] [place] [address]- Care Team Personnel Name: FRANKY PEARSON DO Position: P4 Physician - Primary Care Member Role: Primary Care Physician Address: Address: [address] [place] [address]- [place] Care Team Related Persons Name: JIMMY GRUBBS Address: Home [address] [place], [place] [id number] Address: [address]porary [address] [place], [place] [id number] Name: MELBA GRUBBS Address: Home [address] [place], [place] [id number] [place] Address: Temporary [address] [place], [place] [phone] Name: GILLES GRUBBS Address: Home [address] [place], [place] [id number] Care Team Personnel Name: FRANYK PEARSON DO Position: P4 Physician - Primary Care Med Service: Active Provider Member Role: Primary Care Physician Address: Address: [address] [place] [address] [place] Care Team Related Persons Name: JIMMY GRUBBS Address: Home [address] [place], [place] [id number] Address: Temporary [address] [place], [place] [phone] Name: MELBA GRUBBS Address: Home [address] [place], [place] [id number] [place] Address[place] Temporary [address] [place], [place] [id number] Name: GILLES GRUBBS Address: Home [address] [place], [place] [phone] Care Team Personnel Name: FRANKY PEARSON DO Position: P4 Physician - Primary Care Member Role: Primary Care Physician Address: Address: [address] [place] [address] [place] Care Team Related Persons Name: MELBA GRUBBS Address: Home [address] [place], [place] [id number] [place] Address: [address]porary [address] [place], [place] [phone] Name: GILLES GRUBBS Address: Home [address] [place], [place] [phone] Care Team Personnel Name: FRANKY PEARSON DO Position: P4 Physician - Primary Care Member Role: Primary Care Physician Address: Address: [address] [place] [address] [place] Care Team Related Persons Name: MELBA GRUBBS Address: Home [address] [place], [place] [id number] [place] Address: Temporary [id number] [place] [phone] Name: GILLES GRUBBS Address: Home [id number] [place] [phone] Care Team Personnel Name: FRANKY PEARSON DO Position: P4 Physician - Primary Care Member Role: Primary Care Physician Address: Address: [address] [place] [address] [place] [address]- Care Team Related Persons Name: MELBA GURBBS Address: Home [id number] [place] [phone] [place] Address: Temporary [address] [place] [id number] Name: GILLES GRUBBS Address: Home [id number] [place] [phone] Reason for Visit (unrecogniz ed section and content) Reason Comments Bariatrics Post Op Follow-up DE POP 03/12 02/26 Reason Onset Date Comments Appointment 01/16/2023 Reason Comments Bariatrics Post Op Follow-up POP D/E FU Care Teams (unrecognized sec tion and content) Electronic Technician Relationship Specialty Start Date End Date Rio Aburto DO [address] [place] [address] PCP - General 06/25/17 Electronic Technician Relationship Specialty Start Date End Date Rio Aburto DO [address] [place] [address] PCP - General 06/25/17 Team Status: Active Member Role Status Dates Dr. Rio Aburto DO Family Provider Active Dr. Franky Pearson DO Primary Care Provider Active Team Status: Inactive Member Role Status Dates Dr. Yessi Mcqueen DC Attending Provider Active Team Status: Inactive Member Role Status Dates Rolan Valdes PARTS PERSON, PARTS PERSON-C Attending Provider Active Team Status: Inactive Member [...] Primary Care Provider, Attendin g Provider Active Electronic Technician Relationship Specialty Start Date End Date Rio Aburto DO [address] [place] [address] PCP - General 06/25/17 Team Status: Inactive Member Role Status Dates Dr. Franky Pearson DO Primary Care Provider Active Start: August 13, 2024 End: August 13, 2024 Dr. Franky Pearson DO Referring Provider Active Start: August 13, 2024 End: August 13, 2024 ANA Beltran Attending Provider Active Star t: August 13, 2024 End: August 13, 2024 Team Status: Inactive Member Role Status Dates Dr. Franky Pearson DO Primary Care Provider Active Start: August 19, 2024 End: August 19, 2024 JADEN MatthewsC Attending Provider Active Start: August 19, 2024 End: August 19, 2024 Rolan Valdes NP PARTS PERSON-C Referring Provider Active S tart: August 19, [...] November 26, 2024 End: November 26, 2024 JADEN RosenthalC Attending Provider Active Start: November 26, 2024 [...] January 05, 2025 End: January 05, 2025 Team Status: Inactive Member Role/Relationship Status Dates Dr. Franky Pearson DO Primary Care Provider Active Start: January 16, 2025 End: January 16, 2025 Dr. Franky Pearson DO Referring Provider Active Start: January 16, 2025 End: January 16, 2025 Dr. Rock Pineda DO Attending Provider Active Start: January 16, 2025 End: January 16, 2025 Team Status: Active Member Role/Relationship Status Dates Dr. Franky Pearson DO Primary Care Provider Active Start: January 16, 2025 Dr. Franky Pearson DO Referring Provider Active Start: January 16, 2025 Dr. Rock Pineda DO Attending Provider Active Start: January 16, 2025 Dr. Rock Pineda DO Other Provider Active St art: January 16, 2025 Team Status: Inactive Member Role/Relationship Status Dates [...] January 05, 2025 End: January 05, 2025 Team Status: Inactive Member Role/Relationship Status Dates Dr. Franky Pearson DO Primary Care Provider Active Start: January 16, 2025 End: January 16, 2025 Dr. Franky Pearson DO Referring Provider Active Start: January 16, 2025 End: January 16, 2025 Dr. Rock Pineda DO Attending Provider Active Start: January 16, 2025 End: January 16, 2025 Team Status: Active Member Role/Relationship Status Dates Dr. Franky Pearson DO Primary Care Provider Active Start: January 16, 2025 Dr. Franky Pearson DO Referring Provider Active Start: January 16, 2025 Dr. Rock Pineda DO Attending Provider Active Start: January 16, 2025 Dr. Rock Pineda DO Other Provider Active St art: January 16, 2025 Team Status: Inactive Member Role/Relationship Status Dates Dr. Franky Pearson DO Primary Care Provider Active Start: January 29, 2025 End: January 29, 2025 Dr. Franky Pearson DO Referring Provider Active Start: January 29, 2025 End: January 29, 2025 ANA Rosenthal Attending Provider Active Start: January 29, 2025 End: January 29, 2025 Team Status: Inactive Member Role/Relationship Status Dates Dr. Franky Pearson DO Primary Care Provider Active Start: February 02, 2025 End: February 02, 2025 Dr. Franky Pearson DO Referring Provider Active Start: February 02, 2025 End: February 02, 2025 BLU Ho Attending Provider Active Start: February 02, 2025 End: February 02, 2025 Team Status: Inactive Member Role/Relationship Status Dates Dr. Franky Pearson DO Primary Care Provider Active Start: February 02, 2025 End: February 02, 2025 BLU Ho Attending Provider Active Start: February 02, 2025 End: February 02, 2025 Team Status: Active Member Role/Relationship Status Dates Dr. Franky Pearson DO Primary Care Provider Active Start: February 06, 2025 Dr. Franky Pearson DO Referring Provider Active Start: February 06, 2025 ANA Skinner Attending Provider Active Start: February 06, 2025 Team Status: Inactive Member Role/Relationship Status Dates Dr. Franky Pearson DO Primary Care Provider Active Start: February 06, 2025 End: February 06, 2025 Dr. Allan Coleman MD Attending Provider Active S tart: February 06, 2025 End: February 06, 2025 Team Status: Inactive Member Role/Relationship Status Dates Dr. Franky Pearson DO Primary Care Provider Active Start: February 06, 2025 End: February 06, 2025 Dr. Franky Pearson DO Referring Provider Active Start: February 06, 2025 End: February 06, 2025 ANA Skinner Attending Provider Active Start: February 06, 2025 End: February 06, 2025 FOR RECORDS PERTAINING TO PATIENTS WHO [...] BE BASED ON THE PRIMARY CLINICAL RECORDS. [facility] [employer] provides no warranty or guarantee of the accuracy or completeness of information in this document.
--- OUTSIDE RECORDS SUMMARY | 2025-03-05 20:09 | XMS RPT_ITS | CCD ---
Author Organization [facility] FARE COLLECTOR [facility] Care Team Providers Care [place] Teacher Name Role Phone Franky Pearson Primary Care Provider UnavailADAM Alston Admitting Unavailable BEDDELLADAM Attending Unavailable AA REQUESTED, NEW Primary Care Unavailable LANIE LUNA Consulting Unavailable NANDINI VILLEGAS Consulting Unavailable ADAM LIAO Admitting Unavailable ADAM LIAO Attending Unavailable AA REQUESTED, NEW Primary Care Unavailable KATHERINE CANTOR, REAL ESTATE ATTORNEY Admitting Unavaila ble KATHERINE CANTOR, REAL ESTATE ATTORNEY Attending Unavaila ble AA REQUESTED, NEW Primary Care Unavailable Franky Pearson Primary Care Provider UnavailFRANKY Villela DO Primary Care Physician Rio Aburto DO Primary Care Provider [phone] FRANKY PEARSON DO Attending Unavailable LILI MIKE, [...] Provider Dr. Yessi Mcqueen Attending Provider Keisha REAL ESTATE ATTORNEY, REAL ESTATE ATTORNEY-C Rolan Polk Attending Provider Dr. Allan Coleman Attending Provider Dr. Allan Coleman Attending Provider Lili MIKE, Dr. Bauer Primary Care Provider Lili MIKE, Dr. Bauer Referring Provider Wen REAL ESTATE ATTORNEY-CJose M Attending Provider Nura REAL ESTATE ATTORNEY-CMoon Attending Provider Keisha REAL ESTATE ATTORNEY-CRolan Referring Provider Charisse JANE, Dr. Dickson Attending Provider Kyle REAL ESTATE ATTORNEY-CKiersten Attending Provider Lili MIKE, Dr. Bauer Primary Care Provider Lili MIKE, Dr. Bauer Referring Provider Miriam MIKE, Dr. Wilkerson Attending Provider Miriam MIKE, Dr. Wilkerson Other Provider Lili MIKE, Dr. Bauer Primary Care Provider Lili MIKE, Dr. Bauer Referring Provider Dosrenuka JANE, Dr. Dickson Attending Provider Angus Reyes Attending Provider Jake REAL ESTATE ATTORNEY-CJolie Attending Provider Virginia ORTIZ, Dr. Lemus Attending [...] Attending Unavailable Jolie Joseph Attending Unavailable Halko, Franky Referring Unavailable Halko, [...] Attending Unavailable Moon Lyman Attending Unavailable Keisha REAL ESTATE ATTORNEY, Rolan Polk Referring Unavailable Halko, Franky Primary [...] Care Unavailable Halko, Franky Attending Unavailable Keisha REAL ESTATE ATTORNEY, Rolan Polk Attending Unavailable Keisha REAL ESTATE ATTORNEY, Rolan H Referring Unavailable Halko, Franky Primary [...] [place]ingsworth Attending Unavailable Lili, Franky Referring Unavailable Farnky Pearson Primary Care Unavailable Lili, Franky Attending Unavailable Allergies Allergy Classification Reported Allergen(s) Allergy Type Date of Onset Reaction(s) Facility (1 source) NSAIDs Drug allergy (disorder) [facility] Repository Medications Current Medications Medication Drug [...] oral solution (1 source) alpha-Adrenergic Agonist, Uncompetitive U-oxlqcq-T-aspartate Receptor Antagonist, Sigma-1 Agonist Start: 08-26-2022 End: 09-02-2022 take 1 dose by mouth four times daily as needed Bromfed DM oral syrup Dose = 10 mL, Oral, QID, PRN for cold symptoms, X 7 day(s), # 120 mL, 0 Refill(s), Pharmacy: [email or web address] #[id number], Productive cough, 160, cm, 08/24/22 8:00:00 EDT, [...] qDay, # 90 tab(s), 0 Refill(s), Pharmacy: [facility], 164, cm, 02/28/22 8:08:00 EDT, Height [...] glucometer., # 1 EA, 0 Refill(s), Pharmacy: [facility], Hypoglycemia, 164, cm, 04/04/22 8:05:00 EDT, Height, 86.1 Start Date: 04/04/22 Status: Ordered Start: 04-04-2022 DME MISCellane ous See Instructions, dx E16.2; check BGT due to hypoglycemic symptoms, up to once per day; dispense 100 EtOH wipes, # 100 EA, 0 Refill(s), Pharmacy: [facility], 164, cm, 04/04/22 8:05:00 EDT, Height, [...] qDay, # 90 tab(s), 1 Refill(s), Pharmacy: [facility], 160, cm, 08/24/22 8:00:00 EDT, Height, kg, 08/24/22 8:00:00 EDT, Dosing Weight Start Date: 08/24/22 Status: Ordered Start: 11-22-2021 estradiol 0.5 mg oral tablet Dose : 0.5 mg = 1 tab(s), Oral, qDay, # 90 tab(s), 1 Refill(s), Pharmacy: [facility], 163.5, cm, 11/22/21 8:20:00 EDT, Height Start Date: 11/22/21 Status: Ordered Start: 03-25-2021 Estrace 0.5 mg oral tablet Dose : 0.5 mg = 1 tab(s), Oral, qDay, # 90 tab(s), 3 Refill(s), Pharmacy: [facility], 162.6, cm, 02/18/21 8:44:00 EDT, Height, [...] 11/23/21, # 30 tab(s), 2 Refill(s), Pharmacy: [facility], Anxiety, 163.5, cm, 11/22/21 8:20:00 EDT, [...] # 30 tab(s), 2 Refill(s), [facility]xiety, 162.6, cm, 02/18/21 8:44:00 [...] qHS, # 90 tab(s), 1 Refill(s), Pharmacy: [facility], 160, cm, 11/23/20 15:08:00 EDT, Height, kg, 11/23/20 15:08:00 EDT, Dosing Weight Start Date: 11/23/20 Stop Date: 05/22/21 Status: Ordered predniSONE 20 mg oral tablet (1 source) Start: 08-26-2022 End: 08-31-2022 prednisone 20mg tab (TAPER) Dose : 40 mg = 2 tab(s), Oral, qDay, X 5 day(s), # 10 tab(s), 0 Refill(s), 08/31/22 9:59:00 EDT, [facility]: [id number], Productive cough, 160, cm, 08/24/22 8:00:00 EDT, [...] qDay, # 90 tab(s), 1 Refill(s), Pharmacy: [facility], 160, cm, 08/24/22 8:00:00 EDT, Height, kg, 08/24/22 8:00:00 EDT, Dosing Weight Start Date: 08/24/22 Stop Date: 02/20/23 Status: Ordered Start: 05-09-2022 End: 11-05-2022 Vitamin D3 125 mcg (5000 int l units) oral tablet Dose : 125 mcg = 1 tab(s), Oral, qDay, # 90 tab(s), 1 Refill(s), Pharmacy: [facility], 164, cm, 04/04/22 8:05:00 EDT, Height [...] 30 cap(s), 0 Refill(s), [facility]: [facility] #[id number], 164, cm, 05/30/22 8:50:00 EST, Height Start Date: 06/15/22 Status: Ordered acetaminophen 325 mg / HYDROcodone bitartrate 5 mg oral tablet (3 sources) Opioid Agonist Start: 05-22-2021 End: 05-25-2021 take 1 tablet by mouth every six hours as needed for pain [place] 325- 5 mg oral tablet Dose = [...] # 6 tab(s), 0 Refill(s), [facility]: [facility][id number], Productive cough, 160, cm, 08/24/22 8:00:00 EDT, [...] 02/18/19 Status: Ordered take 1 capsule by [facility] once daily Biotin 2500 MCG CAPS Indications: [...] 12:00am August 20, 2024 12:11am estrogens, conjugated (intermediate) 0.3 mg oral tablet (13 sources) Estrogen [...] 06/24/21 10:31:00 EST, [facility], 162.6, cm, 02/18/21 8:44:00 EDT, Height, [...] BID, # 180 tab(s), 1 Refill(s), Pharmacy: [facility], 163.5, cm, 11/22/21 8:20:00 EDT, Height, [...] 10:19am Start: 11-26-2024 take 1 capsule by [facility] once daily 30 minutes before breakfast Omeprazole [...] qDay, # 90 cap(s), 1 Refill(s), Pharmacy: [facility], 160, cm, 11/23/20 15:08:00 EDT, Height, kg, 11/23/20 15:08:00 EDT, Dosing Weight Start Date: 11/23/20 Stop Date: 05/22/21 Status: Ordered Start: 04-10-2019 take 1 capsule by [facility] once daily omeprazole (PRILOSEC) 20 MG delayed [...] 1:00am July 28, 2024 1:15am Peg 3350-Sod Sulf,Zhtf-Enj-Xuk (Suflave) 178.7-7.3-0.5 gram recon soln (9 sources) Start: 11-26-2024 End: 01-21-2025 Peg 3350-Sod Sulf,Fyqd-Ujc-Huh (Suflave) 178.7-7.3-0.5 gram recon soln Discontinued 0 PO .COMPLEX 2 0 November 26, 2024 12:00am January 21, 2025 3:10pm as directed for split dose bowel prep Start: 11-26-2024 Peg 3350-Sod S ulf,Sfut-Gcp-Ihv (Suflave) 178.7-7.3-0.5 gram recon soln Active 0 PO .COMPLEX 2 0 November 26, 2024 12:00am as directed for split dose bowel prep Start: 11-26-2024 Peg 3350-Sod S ulf,Fylr-Gtt-Qpy (Suflave) 178.7-7.3-0.5 gram recon soln Active 0 [...] Daily, # 90 tab(s), 1 Refill(s), Pharmacy: [facility], 160, cm, 08/24/22 8:00:00 EDT, [...] 10-17-2017 Chronic Other aftercare (1 source) Other 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 Comment on above: Order Comment: Test( s) 025161-Cja. B1, Whole Bloodwas developed and its performance characteristicsdetermined by [employer]. It has not been cleared or approvedby the Food and Drug Administration. Performed By: #### L 501.9985, L506.1001, L501.9520, L3300.8000, L100.0500, L500.4050, L503.6550, L506.0400, L506.0200, L500.4100, L503.0106, L3300.9900 ####[facility] [address] [place], [address] Zinc, Plasma or Serumon 02-09 ZINC,PLASMA/SER 62 ug/dL Normal 44-115 [facility] Comment on above: Order Comment: Test( s) 126847-Kxw. B1, Whole Bloodwas developed and its performance characteristicsdetermined by [employer]. It has not been cleared or approvedby the Food and Drug Administration. Result Comment: Dete ction Limit = 5 Performed at: [address] [id number] Family Living Educator: James Herrera MD, Phone: [phone] Performed By: #### L 501.9985, L506.1001, L501.9520, L3300.8000, L100.0500, L500.4050, L503.6550, L506.0400, L506.0200, L500.4100, L503.0106, L3300.9900 ####[facility] [address] [place], [place], [id number] CBC-Complete Blood Cnt No Di ffon 02-19-2025 Erythrocyte distribution width (RBC) [Ratio] 12.7 % Normal 11.6-14.6 [facility] Comment on above: Performed By: #### L 501.9985, L506.1001, L501.9520, L3300.8000, L100.0500, L500.4050, L503.6550, L506.0400, L506.0200, L500.4100, L503.0106, L3300.9900 #### [facility] [address] [place], [address] Hematocrit (Bld) [Volume fraction] 37.5 % Normal 37-47 [facility] Comment on above: Performed By: #### L 501.9985, L506.1001, L501.9520, L3300.8000, L100.0500, L500.4050, L503.6550, L506.0400, L506.0200, L500.4100, L503.0106, L3300.9900 #### [facility] [address] [place], [address] Hemoglobin (Bld) [Mass/Vol] 12.3 g/dL Normal 12.0-15.0 [facility] Comment on above: Performed By: #### L 501.9985, L506.1001, L501.9520, L3300.8000, L100.0500, L500.4050, L503.6550, L506.0400, L506.0200, L500.4100, L503.0106, L3300.9900 #### [facility] [address] [place], [place], [id number] MCH (RBC) [Entitic mass] 30.4 pg Normal 27.0-32.0 [facility] Comment on above: Performed By: #### L 501.9985, L506.1001, L501.9520, L3300.8000, L100.0500, L500.4050, L503.6550, L506.0400, L506.0200, L500.4100, L503.0106, L3300.9900 #### [facility] [address] [place], [address] MCHC (RBC) [Mass/Vol] 32.8 g/dL Normal 32-36 [facility] Comment on above: Performed By: #### L 501.9985, L506.1001, L501.9520, L3300.8000, L100.0500, L500.4050, L503.6550, L506.0400, L506.0200, L500.4100, L503.0106, L3300.9900 #### [facility] [address] [place], [address] MCV (RBC) [Entitic vol] 92.6 fL Normal 81-99 [facility] Comment on above: Performed By: #### L 501.9985, L506.1001, L501.9520, L3300.8000, L100.0500, L500.4050, L503.6550, L506.0400, L506.0200, L500.4100, L503.0106, L3300.9900 #### [facility] [address] [place], [address] Platelet mean volume (Bld) [Entitic vol] 9.7 fL Normal 6.2-12.0 [facility] Comment on above: Performed By: #### L 501.9985, L506.1001, L501.9520, L3300.8000, L100.0500, L500.4050, L503.6550, L506.0400, L506.0200, L500.4100, L503.0106, L3300.9900 #### [facility] [address] [place], [address] Platelets (Bld) [#/Vol] 316 10*3/uL Normal 150-450 [facility] Comment on above: Performed By: #### L 501.9985, L506.1001, L501.9520, L3300.8000, L100.0500, L500.4050, L503.6550, L506.0400, L506.0200, L500.4100, L503.0106, L3300.9900 #### [facility] [address] [place], [address] RBC (Bld) [#/Vol] 4.05 10*6/uL Low 4.2-5.4 [facility] Comment on above: Performed By: #### L 501.9985, L506.1001, L501.9520, L3300.8000, L100.0500, L500.4050, L503.6550, L506.0400, L506.0200, L500.4100, L503.0106, L3300.9900 #### [facility] [address] [place], [place], [id number] (985) RDW SD 43.1 fl Normal 35.1-43.9 [facility] Comment on above: Performed By: #### L 501.9985, L506.1001, L501.9520, L3300.8000, L100.0500, L500.4050, L503.6550, L506.0400, L506.0200, L500.4100, L503.0106, L3300.9900 #### [facility] [address] [place], [place], [id number] WBC (Bld) [#/Vol] 5.3 10*3/uL Normal 4.4-11.0 [facility] Comment on above: Performed By: #### L 501.9985, L506.1001, L501.9520, L3300.8000, L100.0500, L500.4050, L503.6550, L506.0400, L506.0200, L500.4100, L503.0106, L3300.9900 #### [facility] [address] [place], [place], [id number] Comprehensive Metabolic Prof [facility] 02-19-2025 Albumin [Mass/Vol] 4.5 g/dL Normal 3.5-5.0 [facility] Comment on above: Order Comment: FAX R ESULTS TO [phone] Performed By: #### L 501.9985, L506.1001, L501.9520, L3300.8000, L100.0500, L500.4050, L503.6550, L506.0400, L506.0200, L500.4100, L503.0106, L3300.9900 #### [facility] [address] [place], [place], [id number] Albumin/Globulin [Mass ratio] 1.4 {ratio} Normal 0.9-2.4 [facility] Comment on above: Order Comment: FAX R ESULTS TO [phone] Performed By: #### L 501.9985, L506.1001, L501.9520, L3300.8000, L100.0500, L500.4050, L503.6550, L506.0400, L506.0200, L500.4100, L503.0106, L3300.9900 #### [facility] [address] [place], [place], [id number] ALK PHOS 128 U/L High 35-104 [facility] Comment on above: Order Comment: FAX R ESULTS TO [phone] Performed By: #### L 501.9985, L506.1001, L501.9520, L3300.8000, L100.0500, L500.4050, L503.6550, L506.0400, L506.0200, L500.4100, L503.0106, L3300.9900 #### [facility] [address] [place], [place], [id number] ALT [Catalytic activity/Vol] 20 U/L Normal <=34 [facility] Comment on above: Order Comment: FAX R ESULTS TO [phone] Performed By: #### L 501.9985, L506.1001, L501.9520, L3300.8000, L100.0500, L500.4050, L503.6550, L506.0400, L506.0200, L500.4100, L503.0106, L3300.9900 #### [facility] [address] [place], [place], [id number] AST [Catalytic activity/Vol] 21 U/L Normal <=31 [facility] Comment on above: Order Comment: FAX R ESULTS TO [phone] Performed By: #### L 501.9985, L506.1001, L501.9520, L3300.8000, L100.0500, L500.4050, L503.6550, L506.0400, L506.0200, L500.4100, L503.0106, L3300.9900 #### [facility] [address] [place], [address] Bilirubin [Mass/Vol] 0.32 mg/dL Normal 0.00-1.30 [facility] Comment on above: Order Comment: FAX R ESULTS TO [phone] Performed By: #### L 501.9985, L506.1001, L501.9520, L3300.8000, L100.0500, L500.4050, L503.6550, L506.0400, L506.0200, L500.4100, L503.0106, L3300.9900 #### [facility] [address] [place], [place], [id number] BUN/CRE 9.8 RATIO Low 10-20 [facility] Comment on above: Order Comment: FAX R ESULTS TO [phone] Performed By: #### L 501.9985, L506.1001, L501.9520, L3300.8000, L100.0500, L500.4050, L503.6550, L506.0400, L506.0200, L500.4100, L503.0106, L3300.9900 #### [facility] [address] [place], [place], [id number] (134) Calcium [Mass/Vol] 9.6 mg/dL Normal 7.6-11.0 [facility] Comment on above: Order Comment: FAX R ESULTS TO [phone] Performed By: #### L 501.9985, L506.1001, L501.9520, L3300.8000, L100.0500, L500.4050, L503.6550, L506.0400, L506.0200, L500.4100, L503.0106, L3300.9900 #### [facility] [address] [place], [address] (617) Chloride [Moles/Vol] 106 mmol/L Normal 98-108 [facility] Comment on above: Order Comment: FAX R ESULTS TO [phone] Performed By: #### L 501.9985, L506.1001, L501.9520, L3300.8000, L100.0500, L500.4050, L503.6550, L506.0400, L506.0200, L500.4100, L503.0106, L3300.9900 #### [facility] [address] [place], [place], [id number] (926) CO2 [Moles/Vol] 25.9 mmol/L Normal 21.0-32.0 [facility] Comment on above: Order Comment: FAX R ESULTS TO [phone] Performed By: #### L 501.9985, L506.1001, L501.9520, L3300.8000, L100.0500, L500.4050, L503.6550, L506.0400, L506.0200, L500.4100, L503.0106, L3300.9900 #### [facility] [address] [place], [address] (621) Creatinine [Mass/Vol] 0.92 mg/dL Normal 0.70-1.20 [facility] Comment on above: Order Comment: FAX R ESULTS TO [phone] Performed By: #### L 501.9985, L506.1001, L501.9520, L3300.8000, L100.0500, L500.4050, L503.6550, L506.0400, L506.0200, L500.4100, L503.0106, L3300.9900 #### [facility] [address] [place], [place], [id number] GAP 11 Normal 5-15 [facility] Comment on above: Order Comment: FAX R ESULTS TO [phone] Performed By: #### L 501.9985, L506.1001, L501.9520, L3300.8000, L100.0500, L500.4050, L503.6550, L506.0400, L506.0200, L500.4100, L503.0106, L3300.9900 #### [facility] [address] [place], [address] GFR/1.73 sq M.predicted among non-blacks MDRD (S/P/Bld) [Vol rate/Area] 75 mL/min/{1.73_m2} Normal >60 [facility] Comment on above: Order Comment: FAX R ESULTS TO [phone] Result Comment: mL/m in/1.73m2 CKD-EPI Creatinine Equation (2020) Performed By: #### L 501.9985, L506.1001, L501.9520, L3300.8000, L100.0500, L500.4050, L503.6550, L506.0400, L506.0200, L500.4100, L503.0106, L3300.9900 #### [facility] [address] [place], [place], [id number] Globulin (S) [Mass/Vol] 3.2 g/dL Normal 2.2-4.2 [facility] Comment on above: Order Comment: FAX R ESULTS TO [phone] Performed By: #### L 501.9985, L506.1001, L501.9520, L3300.8000, L100.0500, L500.4050, L503.6550, L506.0400, L506.0200, L500.4100, L503.0106, L3300.9900 #### [facility] [address] [place], [address] Glucose [Mass/Vol] 90 mg/dL Normal 70-99 [facility] Comment on above: Order Comment: FAX R ESULTS TO [phone] Performed By: #### L 501.9985, L506.1001, L501.9520, L3300.8000, L100.0500, L500.4050, L503.6550, L506.0400, L506.0200, L500.4100, L503.0106, L3300.9900 #### [facility] [address] [place], [place], [id number] (846) Potassium [Moles/Vol] 4.9 mmol/L Normal 3.3-5.1 [facility] Comment on above: Order Comment: FAX R ESULTS TO [phone] Performed By: #### L 501.9985, L506.1001, L501.9520, L3300.8000, L100.0500, L500.4050, L503.6550, L506.0400, L506.0200, L500.4100, L503.0106, L3300.9900 #### [facility] [address] [place], [address] Sodium [Moles/Vol] 143 mmol/L Normal 133-145 [facility] Comment on above: Order Comment: FAX R ESULTS TO [phone] Performed By: #### L 501.9985, L506.1001, L501.9520, L3300.8000, L100.0500, L500.4050, L503.6550, L506.0400, L506.0200, L500.4100, L503.0106, L3300.9900 #### [facility] [address] [place], [address] T PROT 7.7 g/dL Normal 5.9-8.4 [facility] Comment on above: Order Comment: FAX R ESULTS TO [phone] Performed By: #### L 501.9985, L506.1001, L501.9520, L3300.8000, L100.0500, L500.4050, L503.6550, L506.0400, L506.0200, L500.4100, L503.0106, L3300.9900 #### [facility] [address] [place], [address] Urea nitrogen [Mass/Vol] 9 mg/dL Normal 4-19 [facility] Comment on above: Order Comment: FAX R ESULTS TO [phone] Performed By: #### L 501.9985, L506.1001, L501.9520, L3300.8000, L100.0500, L500.4050, L503.6550, L506.0400, L506.0200, L500.4100, L503.0106, L3300.9900 #### [facility] [address] [place], [address] Ferritinon 02-19-2025 Ferritin [Mass/Vol] 17 ng/mL Low 22-378 [facility] Comment on above: Order Comment: FAX R ESULTS TO [phone] Performed By: #### L 501.9985, L506.1001, L501.9520, L3300.8000, L100.0500, L500.4050, L503.6550, L506.0400, L506.0200, L500.4100, L503.0106, L3300.9900 ####[facility] [address] [place], [place], [id number] Folates,Serum (Folic Acid)on 02-19-2025 FOLATES,SERUM 6.36 ng/mL Normal 4.60-34.80 [facility] Comment on above: Order Comment: N Performed By: #### L 501.9985, L506.1001, L501.9520, L3300.8000, L100.0500, L500.4050, L503.6550, L506.0400, L506.0200, L500.4100, L503.0106, L3300.9900 #### [facility] [address] [place], [address] Hemoglobin A1con 02-19-2025 HbA1c (Bld) [Mass fraction] 5.5 % Normal <=5.6 [facility] Comment on above: Result Comment: Norm al < 5.7 % Prediabetic 5.7 - 6.4 % Diabetic >or= 6.5 % Please note range changes. Performed By: #### L 501.9985, L506.1001, L501.9520, L3300.8000, L100.0500, L500.4050, L503.6550, L506.0400, L506.0200, L500.4100, L503.0106, L3300.9900 #### [facility] [address] [place], [address] Lipid Profileon 02-19-2025 CHOL:HDL 2.[address] [facility] Comment on above: Order Comment: FAX R ESULTS TO [phone] Performed By: #### L 501.9985, L506.1001, L501.9520, L3300.8000, L100.0500, L500.4050, L503.6550, L506.0400, L506.0200, L500.4100, L503.0106, L3300.9900 ####[facility] [address] [place], [address] Cholesterol [Mass/Vol] 163 mg/dL Normal <=200 [facility] Comment on above: Order Comment: FAX R ESULTS TO [phone] Result Comment: Chol esterol level, Desirable <200 mg/dL Borderline high cholesterol 200-239 mg/dL High cholesterol >=240 mg/dL Recommendations of the NCEP Adult Treatment Panel for the following risk-cutoff thresholds for the [place] population. Performed By: #### L 501.9985, L506.1001, L501.9520, L3300.8000, L100.0500, L500.4050, L503.6550, L506.0400, L506.0200, L500.4100, L503.0106, L3300.9900 ####[facility] [address] [place], [address] Cholesterol in HDL [Mass/Vol] 67 mg/dL Normal [facility] Comment on above: Order Comment: FAX R ESULTS TO [phone] Result Comment: [employer]ia on[employer] Cholesterol Education Program (NCEP) guidelines: <40 mg/dL: Low HDL-cholesterol (major risk factor for CHD) >= 60 mg/dL: High HDL-cholesterol (negative risk factor for CHD) HDL-cholesterol is affected by a number of factors, e.g. smoking, exercise, hormones, sex and age. Performed By: #### L 501.9985, L506.1001, L501.9520, L3300.8000, L100.0500, L500.4050, L503.6550, L506.0400, L506.0200, L500.4100, L503.0106, L3300.9900 ####[facility] [address] [place], [address] Cholesterol in LDL [Mass/Vol] 82 mg/dL Normal [facility] Comment on above: Order Comment: FAX R ESULTS TO [phone] Result Comment: Bord txtxlv=768-121 mg/dL Higher Glzc=374 mg/dL or greater Friedwald Equation for LDL-C Performed By: #### L 501.9985, L506.1001, L501.9520, L3300.8000, L100.0500, L500.4050, L503.6550, L506.0400, L506.0200, L500.4100, L503.0106, L3300.9900 ####[facility] [address] [place], [place], [id number] Cholesterol in VLDL [Mass/Vol] 14 mg/dL Normal 5-40 [facility] Comment on above: Order Comment: FAX R ESULTS TO [phone] Performed By: #### L 501.9985, L506.1001, L501.9520, L3300.8000, L100.0500, L500.4050, L503.6550, L506.0400, L506.0200, L500.4100, L503.0106, L3300.9900 ####[facility] [address] [place], [place], [id number] Triglyceride [Mass/Vol] 68 mg/dL Normal [facility] Comment on above: Order Comment: FAX R ESULTS TO [phone] Result Comment: The drugs N-Acetylcysteine and Metamizole may falsely depress this assay. Normal range: <150 mg/dL Borderline High: 150-199 mg/dL High: 200-499 mg/dL Very High: >500 mg/dL Performed By: #### L 501.9985, L506.1001, L501.9520, L3300.8000, L100.0500, L500.4050, L503.6550, L506.0400, L506.0200, L500.4100, L503.0106, L3300.9900 ####[facility] [address] [place], [place], [id number] T4 Free Directon 02-19-2025 T4 FREE DIRECT 1.00 ng/dL Normal 0.76-1.46 St[address] [facility] Comment on above: Order Comment: FAX R ESULTS TO [phone] Performed By: #### L 501.9985, L506.1001, L501.9520, L3300.8000, L100.0500, L500.4050, L503.6550, L506.0400, L506.0200, L500.4100, L503.0106, L3300.9900 ####[facility] [address] [place], [place], [id number] Thyroid Stim Hormone (TSH)on 02-19-2025 TSH 1.490 uIU/mL Normal 0.300-4.[address] [facility] Comment on above: Order Comment: FAX R ESULTS TO [phone] Performed By: #### L 501.9985, L506.1001, L501.9520, L3300.8000, L100.0500, L500.4050, L503.6550, L506.0400, L506.0200, L500.4100, L503.0106, L3300.9900 ####[facility] [address] [place], [address] Vitamin B12on 02-19-2025 Cobalamin (Vitamin B12) [Mass/Vol] 248 pg/mL Normal 180-914 [facility] Comment on above: Order Comment: FAX R ESULTS TO [phone] Performed By: #### L 501.9985, L506.1001, L501.9520, L3300.8000, L100.0500, L500.4050, L503.6550, L506.0400, L506.0200, L500.4100, L503.0106, L3300.9900 ####[facility] [address] [place], [place], [address] Vitamin D,25 Hydroxyon 02-19 Vitamin D 25-OH 33.2 ng/mL Normal 30-100 [facility] Comment on above: Order Comment: FAX R ESULTS TO [phone] Result Comment: Araceli min D Status Deficiency: <20 ng/mL (50nmol/L) Insufficiency: 20-30 ng/mL (50-75 nmol/L) Sufficiency: 30-100 ng/mL (75-250 nmol/L) Toxicity: >100 ng/mL (>250 nmol/L) Performed By: #### L 501.9985, L506.1001, L501.9520, L3300.8000, L100.0500, L500.4050, L503.6550, L506.0400, L506.0200, L500.4100, L503.0106, L3300.9900 ####[facility] [address] [facility] [place], [address] Foot min 3 Viewson Foot min 3 Views [facility] Imaging Services [address] [place] [address] Foot min 3 Views MR#: [id number] Acct: [id number] Name: AMANDA GRUBBS Rep #: [id number] : 1970 F 54 From: Nandini Love MD PCP: Dr. Franky Pearson DO Status: DEP AMB Study: Foot min 3 Views Date of Exam: 02/06/25 Exam# [id number] Ordering Dr: Jolie Joseph EXAM: XR Right [...] IMPRESSION: Degenerative changes as above. Reading Location[facility] CC: REAL ESTATE ATTORNEYHi Joseph; Dr. Franky Pearson DO Lumber Piler Operator: Signed Normal [facility] Knee 4 or More Viewson 02-06 Knee 4 or More Views [facility] Imaging Services [address] [place] [address] Knee 4 or More Views MR#: [id number] Acct: [id number] Name: AMANDA GRUBBS Rep #: [id number] : 1970 F 54 From: Nandini Love MD PCP: Dr. Franky Pearson, Status: DEP AMB Study: Knee 4 or More Views Date of Exam: 02/06/25 Exam# [id number] Ordering Dr: Jolie Joseph EXAM: XR Right Knee Complete, 4 or More Views CLINICAL INDICATION: ON GOING PAIN, NKI TECHNIQUE: Four or more views of the right knee. COMPARISON: No relevant prior studies available. FINDINGS: BONES/JOINTS: Unremarkable. No acute fracture. No dislocation. SOFT TISSUES: Unremarkable. RAD/Knee 4 or More Views IMPRESSION: No acute fracture. Reading [facility] CC: REAL ESTATE ATTORNEYHi Joseph; Dr. Franky Pearson DO Lumber Piler Operator: Signed Normal [facility] Orthopedic Visit Reporton Orthopedic Visit Report [facility] [address] [place] [address] OFFICE VISIT Date of Service: 02/06/25 MR#: [id number] Acct: [id number] Name: AMANDA GRUBBS Rep #: [id number] : 1970 Provider: ANA montanez Age/Sex: 54/F Location: [facility] Status: Signed Intake Vital Signs 01/29/25 09:18 [...] provided and the decisions made by me, JADNE SkinnerC 02/06/25 0821. Part of today???s visit [...] ROS Con (more content not included)... Normal [facility] Urine Cultureon 02-04-2025 URC Presumptive E. coli Organ Count 80,000-100,000 Presumptive E. coli: REACTION Ampicillin [...] TMP SMX Islt CARMEN >=[address] [facility] Comment on above: Performed By: #### M 100.2200 ####[facility] [address] [place], [address] Urgent Care Visit Reporton 0 02-02-2025 Urgent Care Visit Report [facility] [address], [address] [place], [place] [address] OFFICE VISIT Date of Service: 02/02/25 MR#: [id number] Acct: [id number] Name: AMANDA GRUBBS Rep #: [id number] : 1970 Provider: BLU Marshall Age/Sex: 54/F Location: [facility] Status: Signed Intake Vital Signs 01/29/25 09:18 [...] No CV (more content not included)... Normal [facility] Urine cultureOrdered By: Brayan Villalobos on 02-02-2025 Bacteria identified Cx Nom (U) Presumptive E. coli Abnormal [facility] Gastroenterology Visit Repor ton 01-29-2025 Gastroenterology Visit Report [facility] [address] [place] [address] OFFICE VISIT Date of Service: 01/29/25 MR#: [id number] Acct: [id number] Name: AMANDA GRUBBS Rep #: [id number] : 1970 Provider: ANA mendiola Age/Sex: 54/F Location: [facility] Status: Signed Intake Vital Signs 01/16/25 05:54 [...] daily. Pa (more content not included)... Normal [facility] Colonoscopy Reporton 025 Colonoscopy Report [facility] Medical Records Department [address] [place] [address] Colonoscopy Report MR#: [id number] Acct: [id number] Name: AMANDA GRUBBS Rep #: [id number] : 1970 54 From: Rock Pineda DO PCP: Dr. Franky Pearson DO Status:REG [facility] Patient Name: Amanda Grubbs Procedure Date: 01/16/2025 [...] was poor. Procedure Code(s): --- Professional --- 89645, Colonoscopy, flexible; with biopsy, single or multiple CPT copyright 2021 [employer]. All rights reserved. The codes documented in this report are preliminary and upon delivery aide review may be revised to meet current compliance requirements. Rock Pineda DO 01/16/2025 7:19:59 AM This report has been signed electronically. Number of Addenda: 0 Note Initiated On: 01/16/2025 6:54 AM 01/16/25 0720 Date Rock Caldwell Signature: Date (if indicated) CC: Dr. Franky Pearson DO; Rock Pineda DO Date Dictated: 01/16/25 0654 Date Transcribed: Lumber Piler Operator: SHAN Signed Normal [facility] EGD Reporton 01-16-2025 EGD Report [facility] Medical Records Department [address] [place] [address] EGD Report MR#: [id number] Acct: [id number] Name: AMANDA GRUBBS Rep #: [id number] : 1970 54 From: Rock Pineda DO PCP: Dr. Franky Pearson DO Status:REG [facility] Patient Name: Amanda Grubbs Procedure Date: 01/16/2025 [...] pathology results. Procedure Code(s): --- Professional --- 10033, Esophagogastroduodenoscopy, flexible, transoral; with biopsy, single or multiple CPT copyright 2021 [employer]. All rights reserved. The codes documented in this report are preliminary and upon delivery aide review may be revised to meet current compliance requirements. Rock Pineda DO 01/16/2025 7:17:27 AM This report has been signed electronically. Number of Addenda: 0 Note Initiated On: 01/16/2025 6:23 AM 01/16/25 0718 Date Rock Caldwell Signature: Date (if indicated) CC: Dr. Franky Pearson DO; Rock Pineda DO Date Dictated: 01/16/25622 Date Transcribed: Lumber Piler Operator: SHAN Signed Normal [facility] Immunohistochemical Stainson 01-16-2025 Immunohistochemical Stains Patient Age/Sex Location Account Attending Physician AMANDA GRUBBS 54/F EN [id number] Rock Pineda DO Specimen: [id number] Received: 01/16/25 Status: ARLEEN Mitchell Num: [id number] Spec Type: EGD BIOPSY Subm Dr: Rock [...] developed and their performance characteristics determined by [facility]. They may not have been cleared [...] specimen is totally submitted in one cassette. MO 01/16/2025 [facility]:[id number] Patient Age/Sex Location Account Attending Physician AMANDA GRUBBS 54/F EN [id number] Rock Pineda, DO ADDENDUM Addendum 1 Entered: 01/21/25-1301 This addendum is to report the IHC stain for H pylori on part B: B. IHC negative for H pylori organisms. Addendum Signed (signature on file) Dr. Sima Pascal MD 01/21/25 6258 Patient Age/Sex Location Account Attending Physician AMANDA GRUBBS 54/F EN [id number] Rock Pineda DO Signed (signature on file) Dr. Sima Pascal MD 01/20/[address] [facility] Comment on above: Performed By: #### MAXIMO DILLON ####[facility] [address] [place], [place], [address] MR/OP.PROVATon 01-16-2025 [facility] Medical Records Department [address] [place] [address] Provation Physician Letter MR#: [id number] Acct: [id number] Name: AMANDA GRUBBS Rep #: [id number] : 1970 54 From: Rocksharon Pineda DO PCP: Dr. Franky Pearson DO Status:REG [facility] 01/16/2025 Franky Pearson Do Re : Colonoscopy [...] DO Date Dictated: 01/16/25 0654 Date Transcribed: Lumber Piler Operator: SHAN Signed [facility] MR/OP.[facility] Medical Records Department [address] [place] [address] Provation Physician Letter MR#: [id number] Acct: [id number] Name: AMANDA GRUBBS Rep #: [id number] : 1970 54 From: Rock Pineda DO PCP: Dr. Franky Pearson DO Status:REG [facility] 01/16/2025 Franky Pearson Do Re : Upper [...] Pineda DO Date Dictated: 01/16/25622 Date Transcribed: Lumber Piler Operator: SHAN Signed [facility] MR/POSTOP.[facility] 01-16-2025 MR/POSTOP.[facility] Medical Records Department [address] [place] [address] Anesthesia Postop Eval I 01/16/25718 MR#: [id number] Acct: [id number] Name: AMANDA GRUBBS Rep #: [id number] : 1970 54 From: Frederic Nicole PCP: Dr. Franky Pearson DO Status:REG SDC Y Race: C Location: [place] [address] Anesthesia: Postop Eval I Current Vital Signs [...] Frederic Barney Signature: Date CC: Signed Normal [facility] Surgery Specimen Level Sukhwinder 01-16-2025 Surgery Specimen Level IV Patient Age/Sex Location Account Attending Physician AMANDA GRUBBS 54/F EN [id number] Rock Pineda DO Specimen: [id number] Received: 01/16/25 Status: ARLEEN Mitchell Num: [id number] Spec Type: EGD BIOPSY Subm Dr: Rock [...] specimen is totally submitted in one cassette. MO 01/16/2025 [facility]:[id number] Patient Age/Sex Location Account Attending Physician AMANDA GRUBBS 54/F EN [id number] Rock Pineda, DO Signed (signature on file) Dr. Sima Pascal MD 01/20/[address] [facility] Comment on above: Performed By: #### MAXIMO DILLON ####[facility] [address] [place], [address] MR/PAT.ANEon 01-13-2025 /PAT.[facility] Medical Records Department [address] [place] [address] PAT - Anesthesia 01/13/25 1645 MR#: [id number] Acct: [id number] Name: AMANDA GRUBBS Rep #: [id number] : 1970 54 From: Selvin Slater MD PCP: Dr. Franky Pearson DO Status:PRE [facility] Y Race: C Location: EN Pre-Assessment Diagnosis/Proposed Procedure Planned Operative Procedure(s): COLONOSCOPY, EGD Anesthesia History Anesthesia History - lead refiner: Anesthesia History - lead refiner Hx Hospitalization No 01/13/25 13:38 Any Problems [...] take am of surgery PONV PONV - lead refiner: PONV - lead refiner Female No 01/13/25 13:38 HX of Motion [...] 11/26/24 09:57 Respiratory Assessment Respiratory Assessment - lead refiner: Respiratory Tract Infection Hx - lead refiner Hx Respiratory Tract Infection No 01/13/25 13:38 STOP Sleep Apnea STOP Sleep Apnea - lead refiner: STOP Sleep Apnea - lead refiner Hx Hypertension No 01/13/25 13:38 Hx Sleep [...] Tobacco Use History Tobacco Use History - lead refiner: Tobacco Use History - lead refiner Tobacco Use Smoking Status Never smoker 01/13/25 13:38 Hx Tobacco Use No 01/13/25 13:38 Years Smoking Packs Smoked per Day Smoking Cessation Date was within the last 15 years Hx Smoking Cessation Date Hx Smoking Cessation Counseling Hematologic Medial History Hematologic Hx - lead refiner: Hematologic Medical Hx - supervisor nutritional yeast Hx of Blood Transfusion No 01/13/25 13:38 [...] confused, unrespo /Reproduction History /Reproductive History - lead refiner: /Reproductive Hx- lead refiner Hx Now Gestational Age (in weeks): EDC: [...] Unknown Hist (more content not included)... Normal [facility] Chiropractic Reporton 2024 Chiropractic Report [facility] [address] [place] [address] OFFICE VISIT Date of Service: 01/05/25 MR#: [id number] Acct: [id number] Name: AMANDA GRUBBS Rep #: [id number] : 1970 Provider: BUCK Méndez Age/Sex: 54/F Location: [facility] Status: Signed Intake Vital Signs 11/26/24 [...] #90 caps 11/26/24 Rx release peg 3350-sod sulf,sjqfk-vqo-wnq See Rx Instructions PO .COMPLEX #2 11/26/24 01/05/25 Rx 178.7-7.3-0.5-1.12-0.9 gram oral mL soln (Suflave) ramelteon 8 mg tablet (Rozerem) 8 mg PO QHS 11/26/24 01/05/25 Hist ory tirzepatide 2.5 mg/0.5 mL 2.5 mg subcut QWEEK 11/26/2401/05 History subcutaneous pen injector (Dawsonunjames) [facility] Medical History Lower respiratory tract infection [...] out of alignment. She participated in the [employer] run this past weekend but feels pretty [...] T5 and (more content not included)... Normal [facility] Chiropractic Reporton 2024 Chiropractic Report [facility] [address] [place] [address] OFFICE VISIT Date of Service: 12/18/24 MR#: [id number] Acct: [id number] Name: AMANDA GRUBBS Rep #: [id number] : 1970 Provider: BUCK Méndez Age/Sex: 54/F Location: [facility] Status: Signed Intake Vital Signs 11/26/24 [...] #90 caps 11/26/24 Rx release peg 3350-sod sulf,jcdph-txj-isa See Rx Instructions PO .COMPLEX #2 11/26/24 12/18/24 Rx 178.7-7.3-0.5-1.12-0.9 gram oral mL soln (Suflave) ramelteon 8 mg tablet (Rozerem) 8 mg PO QHS 11/26/24 12/18/24 Hist ory tirzepatide 2.5 mg/0.5 mL 2.5 mg subcut QWEEK 11/26/2412/18 History subcutaneous pen injector (Mounjaro) [facility] Medical History Lower respiratory tract infection [...] (upper thor (more content not included)... Normal [facility] Gastroenterology Visit Repor ton 11-26-2024 Gastroenterology Visit Report [facility] [address] [place] [address] OFFICE VISIT Date of Service: 11/26/24 MR#: [id number] Acct: [id number] Name: AMANDA GRUBBS FAN Rep #: [id number] : 1970 Provider: ANA mendiola Age/Sex: 54/F Location: [facility] Status: Signed Intake Vital Signs 09/25/24 10:43 [...] Chief Complaint: abdomina pain, bloating, N/V, bleeding Multi Operation Machine Operator Required: No Accompanied by: Self Is patient [...] #90 caps 11/26/24 Rx release peg 3350-sod sulf,zgpye-qfs-kbq See Rx Instructions PO .COMPLEX #2 11/26/24 11/26/24 Rx 178.7-7.3-0.5-1.12-0.9 gram oral mL soln (Suflave) ramelteon 8 mg tablet (Rozerem) 8 mg PO QHS 11/26/24 11/26/24 Hist ory tirzepatide 2.5 mg/0.5 mL 2.5 mg subcut QWEEK 11/26/2411/26 History subcutaneous pen injector (Mounjaro) [facility] Medical History Lower respiratory tract infection [...] for headache(s (more content not included)... Normal [facility] Office Visit Reporton 2024 Office Visit Report [facility] [address] [place] [address] OFFICE VISIT Date of Service: 06/27/24 MR#: [id number] Acct: [id number] Patient: AMANDA GRUBBS Rep #: [id number] : 1970 Provider: BLU Clinton Age/Sex: 54/F Location: [facility] Status: Signed Intake Vital Signs 06/13/24 12:45 [...] Barney Signature: Date (if applicable) CC: Normal [facility] Chiropractic Reporton 2024 Chiropractic Report [facility] [address] [place] [address] OFFICE VISIT Date of Service: 09/25/24 MR#: [id number] Acct: [id number] Name: AMANDA GRUBBS Rep #: [id number] : 1970 Provider: BUCK Méndez Age/Sex: 54/F Location: [facility] Status: Signed Intake Vital Signs 08/19/24 07:30 [...] 10:43) Medications ???Medication ???Instructions ???Recorded ???Confirmed ???Type lfvinkzpks-ykdagxyfypfsp-sm ffeine 1 cap PO Q8H PRN h/a [...] Yes cervical (more content not included)... Normal [facility] Pulmonary Visit Reporton Pulmonary Visit Report [facility] [address] [place] [address] OFFICE VISIT Date of Service: 08/19/24 MR#: [id number] Acct: [id number] Name: AMANDA GRUBBS Rep #: [id number] : 1970 Provider: Moon Lyman NP Age/Sex: 54/F Location: [facility] Status: Signed Assessment and Plan Assessment and [...] is being referred from Rolan Valdes, Cardiology [facility]. Her PCP is Dr. Franky Pearson. She is a lifelong non-smoker. 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 She has never seen a deputy general counsel. The patient indicates that she had COVID [...] January 2024. The patient has imaging from [facility] including a chest CT on 2022 which [...] BA, [place]UR[place], ST, chest congest, sinus pressure Multi Operation Machine Operator Required: No DME Vendor: n/a Accompanied by: Self Is patient in pain?: No Allergies No Known Allerg (more content not included)... Normal [facility] Urgent Care Visit Reporton 0 08-13-2024 Urgent Care Visit Report [facility] [address] [place] [address] OFFICE VISIT Date of Service: 08/13/24 MR#: [id number] Acct: [id number] Name: AMANDA GRUBBS Rep #: [id number] : 1970 Provider: ANA Carver Age/Sex: 54/F Location: [facility] Status: Signed Intake Vital Signs 06/13/24 12:45 08/13/24 08:34 Height 5 ft 3 in BP 120/60 Position Sitting Pulse 83 Temp 97.6 F L Temp Source Oral Pulse Oximetry (%) 99 Oxygen Delivery Method room air Intake Visit Reasons: CONCERN FOR PNEUMONIA Accompanied by: Self Allergies No Known Allergies Allergy (Verified 08/13/24 08:38) Medications ???Medication ???Instructions ???Recorded ???Confirmed ???Type qxttsnkzkt-araaehomajouj-ca ffeine 1 cap PO Q8H PRN h/a [...] from her nose. Patient grandson had pneumonia. [facility] Medical History (Updated 08/13/24 @ 08:43 [...] discuss possibl (more content not included)... Normal [facility] Office Visit Reporton 2024 Office Visit Report [facility] [address] [place] [address] OFFICE VISIT Date of Service: 07/23/24 MR#: [id number] Acct: [id number] Patient: AMANDA GRUBBS Rep #: [id number] : 1970 Provider: BLU Marshall Age/Sex: 54/F Location: [facility] Status: Signed Employer Purchased Covid Test Note: Patient here today for Covid Testing, requested by their Employer. Assessment and Plan Assessment and Plan Orders: Orders POC Cepheid Covid, FluAB, RSV Today POC Dior Rapid Strep A Today Plan Details Goals Barriers: Goals Decrease pain Decrease spasm Decrease HAs 07/23/24 1402 Date Angus HURT Cosigner Signature: Date (if applicable) CC: Normal [facility] Urgent Care Visit Reporton 0 07-23-2024 Urgent Care Visit Report [facility] [address], [address] [place] [address] OFFICE VISIT Date of Service: 07/23/24 MR#: [id number] Acct: [id number] Name: AMANDA GRUBBS Rep #: [id number] : 1970 Provider: BLU Marshall Age/Sex: 54/F Location: [facility] Status: Signed with Addenda ADDENDUM by BLU [...] No close contacts with similar complaints. ???No nplr-elf-hjhtljq products taken to assist. No other associated symptoms and no other alleviating/aggravating factors. ROS Const Constitutional: No other (As above) Exam Const General: cooperative, healthy appearing and no acute distress Orientation: alert, awake and oriented x3 [facility] Head: normal to inspection Ears: hearing grossly [...] Acute streptococcal (more content not included)... Normal [facility] Urgent Care Visit Report [facility] [address] [place] [address] OFFICE VISIT Date of Service: 07/23/24 MR#: [id number] Acct: [id number] Name: AMANDA GRUBBS Rep #: [id number] : 1970 Provider: BLU Marshall Age/Sex: 54/F Location: [facility] Status: Signed Intake Vital Signs 06/13/24 12:45 07/23/24 11:58 Height 5 ft 3 in BP 124/64 H Blood Pressure Location Lt brachial Position Sitting Respiration 16 Pulse 107 H Pulse Source NIBP Temp 97.9 F Temp Source Oral Pulse Oximetry (%) 95 Oxygen Delivery Method room air Intake Visit Reasons: COVID [employer] EMPLOYEE Chief Complaint: BA, [place]URD[place], ST, chest congest, sinus pressure Multi Operation Machine Operator Required: No Is patient in pain?: No [...] No close contacts with similar complaints. ???No olcm-tsc-xcvlsha products taken t (more content not included)... Normal [facility] Vitamin B1, Thiamineon 07-08 VIT B1 THIAMINE 89.5 nmol/L Normal 66.5-200.0 [facility] Comment on above: Order Comment: Test( s) 872008-Krr. B1, Whole Bloodwas developed and its performance characteristicsdetermined by [employer]. It has not been cleared or approvedby the Food and Drug Administration. Performed By: #### L 3300.9900, L503.6030, L506.0400, L506.1000, L3300.8000, L100.0500, L503.6550, L503.0105, L501.9520, L500.4050, L501.9985, L500.4100, L506.0250 ####[facility] [address] [place], [place], [id number] Zinc, Plasma or Serumon 06-12 ZINC,PLASMA/SER 62 ug/dL Normal 44-115 [facility] Comment on above: Order Comment: Test( s) 842773-Jrb. B1, Whole Bloodwas developed and its performance characteristicsdetermined by [employer]. It has not been cleared or approvedby the Food and Drug Administration. Result Comment: Dete ction Limit = 5 Performed at: [address] [id number] Family Living Educator: James Herrera MD, Phone: [phone] Performed By: #### L 3300.9900, L503.6030, L506.0400, L506.1000, L3300.8000, L100.0500, L503.6550, L503.0105, L501.9520, L500.4050, L501.9985, L500.4100, L506.0250 ####[facility] [address] [place], [address] CBC-Complete Blood Cnt No Di ffon 07-01-2024 Erythrocyte distribution width (RBC) [Ratio] 12.6 % Normal 11.6-14.6 [facility] Comment on above: Performed By: #### L 3300.9900, L503.6030, L506.0400, L506.1000, L3300.8000, L100.0500, L503.6550, L503.0105, L501.9520, L500.4050, L501.9985, L500.4100, L506.0250 ####[facility] [address] [place], [address] Hematocrit (Bld) [Volume fraction] 36.8 % Low 37-47 [facility] Comment on above: Performed By: #### L 3300.9900, L503.6030, L506.0400, L506.1000, L3300.8000, L100.0500, L503.6550, L503.0105, L501.9520, L500.4050, L501.9985, L500.4100, L506.0250 ####[facility] [address] [place], [address] Hemoglobin (Bld) [Mass/Vol] 11.7 g/dL Low 12.0-15.0 [facility] Comment on above: Performed By: #### L 3300.9900, L503.6030, L506.0400, L506.1000, L3300.8000, L100.0500, L503.6550, L503.0105, L501.9520, L500.4050, L501.9985, L500.4100, L506.0250 ####[facility] [address] [place], [address] MCH (RBC) [Entitic mass] 30.2 pg Normal 27.0-32.0 [facility] Comment on above: Performed By: #### L 3300.9900, L503.6030, L506.0400, L506.1000, L3300.8000, L100.0500, L503.6550, L503.0105, L501.9520, L500.4050, L501.9985, L500.4100, L506.0250 ####[facility] [address] [place], [place], [address] MCHC (RBC) [Mass/Vol] 31.8 g/dL Low 32-36 [facility] Comment on above: Performed By: #### L 3300.9900, L503.6030, L506.0400, L506.1000, L3300.8000, L100.0500, L503.6550, L503.0105, L501.9520, L500.4050, L501.9985, L500.4100, L506.0250 ####[facility] [address] [place] [place], [place], [id number] MCV (RBC) [Entitic vol] 94.8 fL Normal 81-99 [facility] Comment on above: Performed By: #### L 3300.9900, L503.6030, L506.0400, L506.1000, L3300.8000, L100.0500, L503.6550, L503.0105, L501.9520, L500.4050, L501.9985, L500.4100, L506.0250 ####[facility] [address] [place], [place], [phone] Platelet mean volume (Bld) [Entitic vol] 9.1 fL Normal 6.2-12.0 [facility] Comment on above: Performed By: #### L 3300.9900, L503.6030, L506.0400, L506.1000, L3300.8000, L100.0500, L503.6550, L503.0105, L501.9520, L500.4050, L501.9985, L500.4100, L506.0250 ####[facility] [address] [place], [address] Platelets (Bld) [#/Vol] 288 10*3/uL Normal 150-450 [facility] Comment on above: Performed By: #### L 3300.9900, L503.6030, L506.0400, L506.1000, L3300.8000, L100.0500, L503.6550, L503.0105, L501.9520, L500.4050, L501.9985, L500.4100, L506.0250 ####[facility] [address] [place], [address] RBC (Bld) [#/Vol] 3.88 10*6/uL Low 4.2-5.4 [facility] Comment on above: Performed By: #### L 3300.9900, L503.6030, L506.0400, L506.1000, L3300.8000, L100.0500, L503.6550, L503.0105, L501.9520, L500.4050, L501.9985, L500.4100, L506.0250 ####[facility] [address] [place], [address] RDW SD 43.9 fl Normal 35.1-43.9 [facility] Comment on above: Performed By: #### L 3300.9900, L503.6030, L506.0400, L506.1000, L3300.8000, L100.0500, L503.6550, L503.0105, L501.9520, L500.4050, L501.9985, L500.4100, L506.0250 ####[facility] [address] [place], [address] WBC (Bld) [#/Vol] 6.6 10*3/uL Normal 4.4-11.0 [facility] Comment on above: Performed By: #### L 3300.9900, L503.6030, L506.0400, L506.1000, L3300.8000, L100.0500, L503.6550, L503.0105, L501.9520, L500.4050, L501.9985, L500.4100, L506.0250 ####[facility] [address] [place], [place], [phone] Comprehensive Metabolic Prof ilon 07-01-2024 Albumin [Mass/Vol] 3.7 g/dL Normal 3.2-5.0 [facility] Comment on above: Order Comment: Y Performed By: #### L 3300.9900, L503.6030, L506.0400, L506.1000, L3300.8000, L100.0500, L503.6550, L503.0105, L501.9520, L500.4050, L501.9985, L500.4100, L506.0250 ####[facility] [address] [place], [place], [phone] Albumin/Globulin [Mass ratio] 0.9 {ratio} Normal 0.9-2.4 [facility] Comment on above: Order Comment: Y Performed By: #### L 3300.9900, L503.6030, L506.0400, L506.1000, L3300.8000, L100.0500, L503.6550, L503.0105, L501.9520, L500.4050, L501.9985, L500.4100, L506.0250 ####[facility] [address] [place], [place], [id number] ALK P 108 U/L Normal 45-117 [facility] Comment on above: Order Comment: Y Performed By: #### L 3300.9900, L503.6030, L506.0400, L506.1000, L3300.8000, L100.0500, L503.6550, L503.0105, L501.9520, L500.4050, L501.9985, L500.4100, L506.0250 ####[facility] [address] [place], [address] ALT [Catalytic activity/Vol] 18 U/L Normal 13-56 [facility] Comment on above: Order Comment: Y Performed By: #### L 3300.9900, L503.6030, L506.0400, L506.1000, L3300.8000, L100.0500, L503.6550, L503.0105, L501.9520, L500.4050, L501.9985, L500.4100, L506.0250 ####[facility] [address] [place], [address] AST [Catalytic activity/Vol] 12 U/L Low 15-37 [facility] Comment on above: Order Comment: Y Performed By: #### L 3300.9900, L503.6030, L506.0400, L506.1000, L3300.8000, L100.0500, L503.6550, L503.0105, L501.9520, L500.4050, L501.9985, L500.4100, L506.0250 ####[facility] [address] [place], [address] Bilirubin [Mass/Vol] 0.20 mg/dL Normal 0.20-1.00 [facility] Comment on above: Order Comment: Y Result Comment: For patients on eltrombopag therapy, use of Dimension [place] TBIL is not recommended. Performed By: #### L 3300.9900, L503.6030, L506.0400, L506.1000, L3300.8000, L100.0500, L503.6550, L503.0105, L501.9520, L500.4050, L501.9985, L500.4100, L506.0250 ####[facility] [address] [place], [address] BUN/CRE 9.7 RATIO Low 10-20 [facility] Comment on above: Order Comment: Y Performed By: #### L 3300.9900, L503.6030, L506.0400, L506.1000, L3300.8000, L100.0500, L503.6550, L503.0105, L501.9520, L500.4050, L501.9985, L500.4100, L506.0250 ####[facility] [address] [place], [address] CA,Total 9.5 mg/dL Normal 8.5-10.1 [facility] Comment on above: Order Comment: Y Performed By: #### L 3300.9900, L503.6030, L506.0400, L506.1000, L3300.8000, L100.0500, L503.6550, L503.0105, L501.9520, L500.4050, L501.9985, L500.4100, L506.0250 ####[facility] [address] [place], [address] Chloride [Moles/Vol] 106 mmol/L Normal 98-107 [facility] Comment on above: Order Comment: Y Performed By: #### L 3300.9900, L503.6030, L506.0400, L506.1000, L3300.8000, L100.0500, L503.6550, L503.0105, L501.9520, L500.4050, L501.9985, L500.4100, L506.0250 ####[facility] [address] [place], [address] CO2 [Moles/Vol] 27.0 mmol/L Normal 21.0-32.0 [facility] Comment on above: Order Comment: Y Performed By: #### L 3300.9900, L503.6030, L506.0400, L506.1000, L3300.8000, L100.0500, L503.6550, L503.0105, L501.9520, L500.4050, L501.9985, L500.4100, L506.0250 ####[facility] [address] [place], [address] Creatinine [Mass/Vol] 0.93 mg/dL Normal 0.55-1.02 [facility] Comment on above: Order Comment: Y Result Comment: The validity of the calculated GFR GFRAA in patients over 70 years has not been determined. Clinical correlation is essential. Performed By: #### L 3300.9900, L503.6030, L506.0400, L506.1000, L3300.8000, L100.0500, L503.6550, L503.0105, L501.9520, L500.4050, L501.9985, L500.4100, L506.0250 ####[facility] [address] [place], [address] EST GFR - AA 81 mL/min Normal >60 [facility] Comment on above: Order Comment: Y Result Comment: Afri can Haitian GFR Calc Performed By: #### L 3300.9900, L503.6030, L506.0400, L506.1000, L3300.8000, L100.0500, L503.6550, L503.0105, L501.9520, L500.4050, L501.9985, L500.4100, L506.0250 ####[facility] [address] [place], [address] GAP 8 Normal 5-15 [facility] Comment on above: Order Comment: Y Performed By: #### L 3300.9900, L503.6030, L506.0400, L506.1000, L3300.8000, L100.0500, L503.6550, L503.0105, L501.9520, L500.4050, L501.9985, L500.4100, L506.0250 ####[facility] [address] [place], [address] GFR/1.73 sq M.predicted among non-blacks MDRD (S/P/Bld) [Vol rate/Area] 67 mL/min/{1.73_m2} Normal >60 [facility] Comment on above: Order Comment: Y Result Comment: Non- GFR Calc Performed By: #### L 3300.9900, L503.6030, L506.0400, L506.1000, L3300.8000, L100.0500, L503.6550, L503.0105, L501.9520, L500.4050, L501.9985, L500.4100, L506.0250 ####[facility] [address] [place], [phone]) Globulin (S) [Mass/Vol] 4.0 g/dL Normal 2.2-4.2 [facility] Comment on above: Order Comment: Y Performed By: #### L 3300.9900, L503.6030, L506.0400, L506.1000, L3300.8000, L100.0500, L503.6550, L503.0105, L501.9520, L500.4050, L501.9985, L500.4100, L506.0250 ####[facility] [address] [place], [place], [phone] Glucose [Mass/Vol] 148 mg/dL High 74-106 [facility] Comment on above: Order Comment: Y Result Comment: Fast ing Glucose result greater than or equal to 126 mg/dL suggests DIABETES MELLITUS per A.D.A. criteria. Performed By: #### L 3300.9900, L503.6030, L506.0400, L506.1000, L3300.8000, L100.0500, L503.6550, L503.0105, L501.9520, L500.4050, L501.9985, L500.4100, L506.0250 ####[facility] [address] [place], [address] Potassium [Moles/Vol] 4.3 mmol/L Normal 3.5-5.1 [facility] Comment on above: Order Comment: Y Performed By: #### L 3300.9900, L503.6030, L506.0400, L506.1000, L3300.8000, L100.0500, L503.6550, L503.0105, L501.9520, L500.4050, L501.9985, L500.4100, L506.0250 ####[facility] [address] [place], [address] Sodium [Moles/Vol] 141 mmol/L Normal 136-145 [facility] Comment on above: Order Comment: Y Performed By: #### L 3300.9900, L503.6030, L506.0400, L506.1000, L3300.8000, L100.0500, L503.6550, L503.0105, L501.9520, L500.4050, L501.9985, L500.4100, L506.0250 ####[facility] [address] [place], [place], [phone] T PROT 7.7 g/dL Normal 6.4-8.2 [facility] Comment on above: Order Comment: Y Performed By: #### L 3300.9900, L503.6030, L506.0400, L506.1000, L3300.8000, L100.0500, L503.6550, L503.0105, L501.9520, L500.4050, L501.9985, L500.4100, L506.0250 ####[facility] [address] [place], [place], [phone] Urea nitrogen [Mass/Vol] 9 mg/dL Normal 7-18 [facility] Comment on above: Order Comment: Y Performed By: #### L 3300.9900, L503.6030, L506.0400, L506.1000, L3300.8000, L100.0500, L503.6550, L503.0105, L501.9520, L500.4050, L501.9985, L500.4100, L506.0250 ####[facility] [address] [place], [place], [phone] Ferritinon 07-01-2024 Ferritin [Mass/Vol] 34 ng/mL Normal 8-252 [facility] Comment on above: Order Comment: Y Performed By: #### L 3300.9900, L503.6030, L506.0400, L506.1000, L3300.8000, L100.0500, L503.6550, L503.0105, L501.9520, L500.4050, L501.9985, L500.4100, L506.0250 ####[facility] [address] [facility] [address] [place], [place], [address] Folates, (Folic Acid)on 06-12 FOLATES 14.10 ng/mL Normal 3.1-55.4 [facility] Comment on above: Order Comment: Y Performed By: #### L 3300.9900, L503.6030, L506.0400, L506.1000, L3300.8000, L100.0500, L503.6550, L503.0105, L501.9520, L500.4050, L501.9985, L500.4100, L506.0250 ####[facility] [address] [place], [place], [phone] Hemoglobin A1con 07-01-2024 HbA1c (Bld) [Mass fraction] 5.4 % Normal 3.8-5.6 [facility] Comment on above: Result Comment: Norm al < 5.7 % Prediabetic 5.7 - 6.4 % Diabetic >or= 6.5 % Please note range changes. Performed By: #### L 3300.9900, L503.6030, L506.0400, L506.1000, L3300.8000, L100.0500, L503.6550, L503.0105, L501.9520, L500.4050, L501.9985, L500.4100, L506.0250 ####[facility] [address] [place], [address] Iron+Iron Binding Capacityon 07-01-2024 Iron [Mass/Vol] 53 ug/dL Normal 50-170 [facility] Comment on above: Order Comment: Y Performed By: #### L 3300.9900, L503.6030, L506.0400, L506.1000, L3300.8000, L100.0500, L503.6550, L503.0105, L501.9520, L500.4050, L501.9985, L500.4100, L506.0250 ####[facility] [address] [place], [address] IRON SATURATION 16.3 Normal 15.0-55.0 [facility] Comment on above: Order Comment: Y Performed By: #### L 3300.9900, L503.6030, L506.0400, L506.1000, L3300.8000, L100.0500, L503.6550, L503.0105, L501.9520, L500.4050, L501.9985, L500.4100, L506.0250 ####[facility] [address] [place], [place], [phone] TIBC 326 ug/dL Normal 250-450 [facility] Comment on above: Order Comment: Y Performed By: #### L 3300.9900, L503.6030, L506.0400, L506.1000, L3300.8000, L100.0500, L503.6550, L503.0105, L501.9520, L500.4050, L501.9985, L500.4100, L506.0250 ####[facility] [address] [place], [address] Lipid Profileon 07-01-2024 Cholesterol [Mass/Vol] 169 mg/dL Normal 200 [facility] Comment on above: Order Comment: Y Result Comment: <200 mg/dL Desirable 200-240 mg/dL Borderline >240 mg/dL High Risk Performed By: #### L 3300.9900, L503.6030, L506.0400, L506.1000, L3300.8000, L100.0500, L503.6550, L503.0105, L501.9520, L500.4050, L501.9985, L500.4100, L506.0250 ####[facility] [address] [place], [place], [phone] Cholesterol in HDL [Mass/Vol] 77 mg/dL Normal [facility] Comment on above: Order Comment: Y Result Comment: The drugs N-Acetylcysteine and Metamizole may falsely depress this assay. Reference Range HDL <40 mg/dL Low HDL Cholesterol HDL >or= 60 mg/dL High HDL Cholesterol Performed By: #### L 3300.9900, L503.6030, L506.0400, L506.1000, L3300.8000, L100.0500, L503.6550, L503.0105, L501.9520, L500.4050, L501.9985, L500.4100, L506.0250 ####[facility] [address] [place], [place], [phone]) Cholesterol in LDL [Mass/Vol] 71 mg/dL Normal 0-130 [facility] Comment on above: Order Comment: Y Performed By: #### L 3300.9900, L503.6030, L506.0400, L506.1000, L3300.8000, L100.0500, L503.6550, L503.0105, L501.9520, L500.4050, L501.9985, L500.4100, L506.0250 ####[facility] [address] [place], [place], [phone] Cholesterol in VLDL [Mass/Vol] 21 mg/dL Normal 5-40 [facility] Comment on above: Order Comment: Y Performed By: #### L 3300.9900, L503.6030, L506.0400, L506.1000, L3300.8000, L100.0500, L503.6550, L503.0105, L501.9520, L500.4050, L501.9985, L500.4100, L506.0250 ####[facility] [address] [place], [address] Triglyceride [Mass/Vol] 105 mg/dL Normal [facility] Comment on above: Order Comment: Y Result Comment: The drugs N-Acetylcysteine and Metamizole may falsely depress this assay. Serum Triglycerides Reference Interval Normal <150 mg/dL Borderline high 150 - 199 mg/dL High 200 - 499 mg/dL Very High > or = 500 mg/dL Performed By: #### L 3300.9900, L503.6030, L506.0400, L506.1000, L3300.8000, L100.0500, L503.6550, L503.0105, L501.9520, L500.4050, L501.9985, L500.4100, L506.0250 ####[facility] [address] [place], [address] T4 Free Directon 07-01-2024 T4 FREE DIRECT 0.87 ng/dL Normal 0.76-1.46 [facility] Comment on above: Order Comment: Y Performed By: #### L 3300.9900, L503.6030, L506.0400, L506.1000, L3300.8000, L100.0500, L503.6550, L503.0105, L501.9520, L500.4050, L501.9985, L500.4100, L506.0250 ####[facility] [address] [place], [address] Thyroid Stim Hormone (TSH)on 07-01-2024 TSH 0.846 uIU/mL Normal 0.358-3.[address] [facility] Comment on above: Order Comment: Y Performed By: #### L 3300.9900, L503.6030, L506.0400, L506.1000, L3300.8000, L100.0500, L503.6550, L503.0105, L501.9520, L500.4050, L501.9985, L500.4100, L506.0250 ####[facility] [address] [place], [place], [phone] Vitamin B12on 07-01-2024 Cobalamin (Vitamin B12) [Mass/Vol] 408 pg/mL Normal 211-911 [facility] Comment on above: Performed By: #### L 3300.9900, L503.6030, L506.0400, L506.1000, L3300.8000, L100.0500, L503.6550, L503.0105, L501.9520, L500.4050, L501.9985, L500.4100, L506.0250 ####[facility] [address] [place], [place], [id number] Vitamin D,25 Hydroxyon 07-01 Vitamin D 25-OH 29.0 ng/mL Normal [facility] Comment on above: Result Comment: Araceli min D 25(OH) Status Range Deficiency <20 ng/mL (50nmol/L) Insufficiency 20 - 30 ng/mL (50 - 75 nmol/L) Sufficiency 30 - 100 ng/mL (75 - 250 nmol/L) Toxicity >100 ng/mL (>250 nmol/L) Performed By: #### L 3300.9900, L503.6030, L506.0400, L506.1000, L3300.8000, L100.0500, L503.6550, L503.0105, L501.9520, L500.4050, L501.9985, L500.4100, L506.0250 ####[facility] [address] [place], [address] Chest without Contraston Chest without Contrast [facility] [address] [place] [address] Chest without Contrast MR#: [id number] Acct: [id number] Name: AMANDA GRUBBS Rep #: [id number] : 1970 F 54 From: Kervin marvin MD PCP: Dr. Franky Pearson, DO Status: REG CLI Study: Chest without Contrast Date of Exam: 06/30/24 Exam# [id number] Ordering Dr: Rolan Valdes NP REAL ESTATE ATTORNEY-C [id number] STUDY: CT CHEST WITHOUT CONTRAST REASON FOR [...] , CC: ANA Valdes; Dr. Franky Pearson, Lumber Piler Operator: Signed Normal [facility] Office Visit Reporton 2024 Office Visit Report [facility] [place] [address] OFFICE VISIT Date of Service: 06/27/24 MR#: [id number] Acct: [id number] Patient: AMANDA GRUBBS Rep #: [id number] : 1970 Provider: BLU Clinton Age/Sex: 54/F Location: [facility] Status: Signed Employer Purchased Covid Test Note: Patient here today for Covid Testing, requested by their Employer. Assessment and Plan Assessment and Plan Orders: Orders POC Cepheid Covid, FluAB, RSV Today Plan Details Goals Barriers: Goals Decrease pain Decrease spasm Decrease HAs 06/27/24 1023 Date Hans HURT Cosignshelley Signature: Date (if applicable) CC: Normal [facility] Urgent Care Visit Reporton 0 06-27-2024 Urgent Care Visit Report [facility] [address] [place] [address] OFFICE VISIT Date of Service: 06/27/24 MR#: [id number] Acct: [id number] Name: AMANDA GRUBBS Rep #: [id number] : 1970 Provider: BLU Clinton Age/Sex: 54/F Location: [facility] Status: Signed Intake Vital Signs 06/13/24 12:45 06/27/24 10:16 Height 5 ft 3 in BP 114/70 Blood Pressure Location Lt brachial Position Sitting Respiration 17 Pulse 88 Pulse Source NIBP Temp 97.8 F Temp Source Oral Pulse Oximetry (%) 98 Oxygen Delivery Method room air Intake Visit Reasons: COUGH, HEADACHE Chief Complaint: cough, [place], ST, chest congest, BA, chills Multi Operation Machine Operator Required: No Is patient in pain?: No [...] Exam Const General: cooperative and well developed HENIL Head: normal to inspection and atraumatic Ears: [...] Hans HURT (more content not included)... Normal [facility] CREATININE FINGERSTICKon CREATININE WB < 1.0 Normal 0.55-1.02 [facility] Comment on above: Performed By: #### L 9100.0200 #### [facility] [address] [place], [address] EGFR WB > 60.0000 Normal >60 [facility] Comment on above: Performed By: #### L 9100.0200 #### [facility] [address] [place], [address] Coronary Angiography CTon Coronary Angiography CT [facility] [address] [place] [address] 06/13/24 1556 MR#: [id number] Acct: [id number] Name: AMANDA GRUBBS Rep #: [id number] : 1970 53 From: Allan Coleman MD [...] DO; Dr. Franky Hollingsworth MD Signed Normal [facility] Limited Chest CT Cardiac Onl yon 06-13-[address] Cardiac Only [facility] [address] [place] [address] [id number] [address] Cardiac Only MR#: [id number] Acct: [id number] Name: AMANDA GRUBBS Rep #: [id number] : 1970 F 53 From: Kervin marvin MD PCP: Dr. Franky Pearson DO Status: [facility] Study: Limited Chest CT Cardiac Only Date of Exam: Exam# [id number] Ordering Dr: Franky Hollingsworth MD [id number] STUDY: CT CHEST WITH CONTRAST REASON FOR [...] 11:17 EST Reading Location ID and State: [facility] / [place] , Service support , CC: Dr. Franky Pearson DO; Dr. Franky Hollingsworth MD Lumber Piler Operator: Signed Normal [facility] Oncology Visit Reporton Oncology Visit Report [facility] [address] [place] [address] OFFICE VISIT Date of Service: 05/13/24 1633 MR#: [id number] Acct: [id number] Name: AMANDA GRUBBS Rep #: [id number] : 1970 From: Santiago Og MD Age/Sex: 53/F Location: [facility] Status: Signed HPI Subjective Date of Service 05/13/24 Chief Complaint F/u for anemia. History of Present Illness 53y.o.woman with history of Gastric bypass in 2018 was found to have Iron deficiency anemia, started on oral Iron but has not improved so referred for further evaluation. Denied weight loss, fever, gets night sweats. [facility] Medical History Anginal pain Somatic dysfunction [...] 16:36) Medications ???Medication ???Instructions ???Recorded ???Confirmed ???Type zdvfgcgskq-qcyqydbgxqlwu-wi ffeine 1 cap PO Q8H PRN 01/16/23 [...] 05/13/241707 Date (more content not included)... Normal [facility] L501.5101on 05-08-2024 GGTP 66 IU/L Abnormal 0-60 [facility] Comment on above: Order Comment: ADD T O BLOOD IN LAB. THANK YOU!! Result Comment: Perf ormed at: CB - [facility] [address] [id number] Family Living Educator: Robson Cedeno PhD, Phone: [phone] Performed By: #### L 501.5103 #### [facility] [address] [place], [address] CBC W/Diff, Automatedon 11-2 Absolute Lymph 2.06 X10 3/uL Normal 0.83-4.51 [facility] Comment on above: Performed By: #### L 9100.0200 #### [facility] [address] [place], [address] Absolute Neut 3.7 X10 3/uL Normal 2.0-7.7 [facility] Comment on above: Performed By: #### L 9100.0200 #### [facility] [address] [place], [address] Basophils/100 WBC (Bld) 0.6 % Normal 0-1 [facility] Comment on above: Performed By: #### L 9100.0200 #### [facility] [address] [place], [address] Eosinophils/100 WBC (Bld) 1.1 % Normal 0-5 [facility] Comment on above: Performed By: #### L [id number] #### [facility] [address] [place], [address] Erythrocyte distribution width (RBC) [Ratio] 12.4 % Normal 11.6-14.6 [facility] Comment on above: Performed By: #### L [id number] #### [facility] [address] [place], [address] Hematocrit (Bld) [Volume fraction] 37.6 % Normal 37-47 [facility] Comment on above: Performed By: #### L 9100.0200 #### [facility] [address] [place], [address] Hemoglobin (Bld) [Mass/Vol] 12.4 g/dL Normal 12.0-15.0 [facility] Comment on above: Performed By: #### L 9100.0200 #### [facility] [address] [place], [address] IG% 0.200 Normal 0.0-0.9 [facility] Comment on above: Result Comment: IG% - Immature Granulocytes (promyelocytes, myelocytes and metamyelocytes) > 1% indicates that a LEFT SHIFT is Present. Performed By: #### L 9100.0200 #### [facility] [address] [place], [address] Lymphocytes/100 WBC (Bld) 32.6 % Normal 19-41 [facility] Comment on above: Performed By: #### L 9100.0200 #### [facility] [address] [place], [address] MCH (RBC) [Entitic mass] 30.7 pg Normal 27.0-32.0 [facility] Comment on above: Performed By: #### L 9100.0200 #### [facility] [address] [place], [address] MCHC (RBC) [Mass/Vol] 33.0 g/dL Normal 32-36 [facility] Comment on above: Performed By: #### L 9100.0200 #### [facility] [address] [place], [address] MCV (RBC) [Entitic vol] 93.1 fL Normal 81-99 [facility] Comment on above: Performed By: #### L 9100.0200 #### [facility] [address] [place], [address] Monocytes/100 WBC (Bld) 7.3 % Normal 0-10 [facility] Comment on above: Performed By: #### L 9100.0200 #### [facility] [address] [place], [address] Neutrophils/100 WBC (Bld) 58.2 % Normal 47-70 [facility] Comment on above: Performed By: #### L [id number] #### [facility] [address] [place], [address] Nucleated RBC (Bld) [#/Vol] 0 10*3/uL Normal 0-5 [facility] Comment on above: Performed By: #### L 9099.0200 #### [facility] [address] [place], [address] Platelet mean volume (Bld) [Entitic vol] 9.1 fL Normal 6.2-12.0 [facility] Comment on above: Performed By: #### L 00.0200 #### [facility] [facility] [address] [place], [address] Platelets (Bld) [#/Vol] 305 10*3/uL Normal 150-450 [facility] Comment on above: Performed By: #### L 00.0200 #### [facility] [address] [place], [address] RBC (Bld) [#/Vol] 4.04 10*6/uL Low 4.2-5.4 [facility] Comment on above: Performed By: #### L 9100.0200 #### [facility] [address] [place], [address] RDW SD 42.5 fl Normal 35.1-43.9 [facility] Comment on above: Performed By: #### L 00.0200 #### [facility] [address] [place], [address] WBC (Bld) [#/Vol] 6.3 10*3/uL Normal 4.4-11.0 [facility] Comment on above: Performed By: #### L 9100.0200 #### [facility] [address] [place], [address] CRPon 05-06-2024 C-REACTIVE PROT < 2.90 Normal 0.0-3.0 [facility] Comment on above: Order Comment: UNKNO WN1N Result Comment: C-Re active Protein (CRP) provides useful information for the diagnosis, therapy and monitoring of inflammatory processes and associated diseases. For the evaluation of Relative Risk for Cardiovascular Disease, a High Sensitivity CRP (HSCRP) should be ordered. Performed By: #### L 9100.0200 #### [facility] [address] [place], [address] Comprehensive Metabolic Prof ilon 05-06-2024 Albumin [Mass/Vol] 4.1 g/dL Normal 3.2-5.0 [facility] Comment on above: Order Comment: UNKNO WN1N Performed By: #### L 9100.0200 #### [facility] [address] [place], [address] Albumin/Globulin [Mass ratio] 1.2 {ratio} Normal 0.9-2.4 [facility] Comment on above: Order Comment: UNKNO WN1N Performed By: #### L 9100.0200 #### [facility] [address] [place], [address] ALK P 88 U/L Normal 45-117 [facility] Comment on above: Order Comment: UNKNO WN1N Performed By: #### L 9100.0200 #### [facility] [address] [place], [address] ALT [Catalytic activity/Vol] 89 U/L High 13-56 [facility] Comment on above: Order Comment: UNKNO WN1N Performed By: #### L 9100.0200 #### [facility] [address] [place], [address] AST [Catalytic activity/Vol] 46 U/L High 15-37 [facility] Comment on above: Order Comment: UNKNO WN1N Performed By: #### L 9100.0200 #### [facility] [address] [place], [address] Bilirubin [Mass/Vol] 0.20 mg/dL Normal 0.20-1.00 [facility] Comment on above: Order Comment: UNKNO WN1N Result Comment: For patients on eltrombopag therapy, use of Dimension [place] TBIL is not recommended. Performed By: #### L 00.0200 #### [facility] [address] [place], [address] BUN/CRE 7.7 RATIO Low 10-20 [facility] Comment on above: Order Comment: UNKNO WN1N Performed By: #### L 00.0200 #### [facility] [address] [place], [address] CA,Total 9.6 mg/dL Normal 8.5-10.1 [facility] Comment on above: Order Comment: UNKNO WN1N Performed By: #### L 9100.0200 #### [facility] [address] [place], [address] Chloride [Moles/Vol] 107 mmol/L Normal 98-107 [facility] Comment on above: Order Comment: UNKNO WN1N Performed By: #### L 9100.0200 #### [facility] [address] [place], [address] CO2 [Moles/Vol] 26.0 mmol/L Normal 21.0-32.0 [facility] Comment on above: Order Comment: UNKNO WN1N Performed By: #### L 9100.0200 #### [facility] [address] [place], [address] Creatinine [Mass/Vol] 0.78 mg/dL Normal 0.55-1.02 [facility] Comment on above: Order Comment: UNKNO WN1N Result Comment: The validity of the calculated GFR GFRAA in patients over 70 years has not been determined. Clinical correlation is essential. Performed By: #### L 9100.0200 #### [facility] [address] [place], [address] EST GFR - AA 99 mL/min Normal >60 [facility] Comment on above: Order Comment: UNKNO WN1N Result Comment: Afri can Haitian GFR Calc Performed By: #### L 91.0200 #### [facility] [address] [place], [address] GAP 7 Normal 5-15 [facility] Comment on above: Order Comment: UNKNO WN1N Performed By: #### L 91.0200 #### [facility] [address] [place], [address] GFR/1.73 sq M.predicted among non-blacks MDRD (S/P/Bld) [Vol rate/Area] 82 mL/min/{1.73_m2} Normal >60 [facility] Comment on above: Order Comment: UNKNO WN1N Result Comment: Non- GFR Calc Performed By: #### L 9100.0200 #### [facility] [address] [place], [address] Globulin (S) [Mass/Vol] 3.5 g/dL Normal 2.2-4.2 [facility] Comment on above: Order Comment: UNKNO WN1N Performed By: #### L 9100.0200 #### [facility] [address] [place], [address] Glucose [Mass/Vol] 75 mg/dL Normal 74-106 [facility] Comment on above: Order Comment: UNKNO WN1N Performed By: #### L 91.0200 #### [facility] [address] [place], [address] Potassium [Moles/Vol] 4.3 mmol/L Normal 3.5-5.1 [facility] Comment on above: Order Comment: UNKNO WN1N Performed By: #### L 9100.0200 #### [facility] [address] [place], [address] Sodium [Moles/Vol] 140 mmol/L Normal 136-145 [facility] Comment on above: Order Comment: UNKNO WN1N Performed By: #### L 9100.0200 #### [facility] [address] [place], [address] T PROT 7.6 g/dL Normal 6.4-8.2 [facility] Comment on above: Order Comment: UNKNO WN1N Performed By: #### L 9100.0200 #### [facility] [address] [place], [address] Urea nitrogen [Mass/Vol] 6 mg/dL Low 7-18 [facility] Comment on above: Order Comment: UNKNO WN1N Performed By: #### L 9100.0200 #### [facility] [address] [place], [address] Erythrocyte Sed Rateon 05-06 SED RATE 8 mm/hr Normal 0-30 [facility] Comment on above: Performed By: #### L 9100.0200 #### [facility] [address] [place], [address] Ferritinon 05-06-2024 Ferritin [Mass/Vol] 21 ng/mL Normal 8-252 [facility] Comment on above: Order Comment: UNKNO WN1N Performed By: #### L 9100.0200 #### [facility] [address] [place], [address] Folates, (Folic Acid)on 04-12 FOLATES 19.70 ng/mL Normal 3.1-55.4 [facility] Comment on above: Order Comment: ADD T O BLOOD IN LAB. THANK YOU!! Performed By: #### L 501.5101 #### [facility] [address] [place], [address] Iron+Iron Binding Capacityon 05-06-2024 Iron [Mass/Vol] 73 ug/dL Normal 50-170 [facility] Comment on above: Order Comment: UNKNO WN1N Performed By: #### L 9100.0200 #### [facility] [address] [place], [address] IRON SATURATION 19.2 Normal 15.0-55.0 [facility] Comment on above: Order Comment: UNKNO WN1N Performed By: #### L 9100.0200 #### [facility] [address] [place], [address] TIBC 380 ug/dL Normal 250-450 [facility] Comment on above: Order Comment: UNKNO WN1N Performed By: #### L 9100.0200 #### [facility] [address] [place], [address] LDHon 05-06-2024 LDH 211 U/L Normal 84-246 [facility] Comment on above: Order Comment: ADD T O BLOOD IN LAB. THANK YOU!! Performed By: #### L 501.5101 #### [facility] [address] [place], [address] Magnesiumon 05-06-2024 Magnesium [Mass/Vol] 2.2 mg/dL Normal 1.6-2.6 [facility] Comment on above: Order Comment: UNKNO WN1N Performed By: #### L 9100.0200 #### [facility] [address] [place], [address] Oncology Visit Reporton 04-12 Oncology Visit Report [facility] [address] [place] [address] OFFICE VISIT Date of Service: 05/06/24 1045 MR#: [id number] Acct: [id number] Name: AMANDA GRUBBS Rep #: [id number] : 1970 From: Santiago Og MD Age/Sex: 53/F Location: [facility] Status: Signed HPI Subjective Date [...] 10:50) Medications ???Medication ???Instructions ???Recorded ???Confirmed ???Type qdoyotuiso-qeionbmrsvbes-ps ffeine 1 cap PO Q8H PRN 01/16/23 [...] 05/06/24 His (more content not included)... Normal [facility] Phosphoruson 05-06-2024 Phosphate [Mass/Vol] 4.5 mg/dL Normal 2.5-4.9 [facility] Comment on above: Order Comment: UNKNO WN1N Performed By: #### L 9100.0200 #### [facility] [address] [place], [address] Retic Panelon 05-06-2024 IM RET FRACTION 14.20 Normal 3.00-15.90 [facility] Comment on above: Performed By: #### L 9100.0200 #### [facility] [address] [place], [address] RET-HE 34.6 pg Normal 30-35 [facility] Comment on above: Performed By: #### L 9100.0200 #### [facility] [address] [place], [address] Retic Count 1.33 Normal 0.5-1.5 [facility] Comment on above: Performed By: #### L 9100.0200 #### [facility] [address] [place], [address] Vitamin B12on 05-06-2024 Cobalamin (Vitamin B12) [Mass/Vol] 720 pg/mL Normal 211-911 [facility] Comment on above: Performed By: #### L 9100.0200 #### [facility] [address] [place], [address] 12 Lead EKG performed by [facility] on 05-05-2024 12 Lead EKG performed by [facility] [address] [place] [address] 12 Lead EKG performed by [facility] 05/05/24 0820 MR#: [id number] Acct: [id number] Name: AMANDA GRUBBS Rep #: [id number] : 1970 53 From: Franky Hollingsworth MD Attending Dr: Dr. Franky Hollingsworth MD Status: DE P AMB Ordering Dr: Franky Hollingsworth MD Date: 05/05/24 Location: [facility] Sex: F C Admitted: BMS/12 Lead EKG performed by [facility] ECG Report Interpretation S inus Rhythm WITHIN NORMAL LIMITSElectronically signed on 05/05/2024 at 12:[address] Franky Hollingsworth [employer] Version 8610 05/05/24 1217 Date Franky Hollingsworth MD CC: Dr. 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 Cardiology Visit Reporton Cardiology Visit Report [facility] [address] [place] [address] OFFICE VISIT Date of Service: 05/05/24 MR#: [id number] Acct: [id number] Name: AMANDA GRUBBS Rep #: [id number] : 1970 Provider: Dr. Franky clark MD Age/Sex: 53/F Location: [facility] Status: Signed HPI HPI History of Present [...] Visit Reasons: FAMILY HX OF [place] (LILI) Multi Operation Machine Operator Required: No Accompanied by: Is patient in pain?: No Allergies No Known Allergies Allergy (Verified 05/05/24 11:34) Medications ???Medication ???Instructions ???Recorded ???Confirmed ???Type ebncsgzeqv-yilrtfheggpgf-af ffeine 1 cap PO Q8H PRN 01/16/23 [...] you fallen in the past year?: [facility] Anginal pain Somatic dysfunction of lower extremity Psoriatic arthritis Prediabetes Family history of ischemic heart disease Anxiety Secondary insomnia Iron deficiency B12 deficiency Major depression in remission Hypothyroid Anemia Acute pharyngitis, unspecified Aphthous ulcer of mouth delivery delivered Surgical History History of endometrial ablation History of colonoscopy H (more content not included)... Normal [facility] Office Visit Reporton 2023 Office Visit Report [facility] [address] [place] [address] OFFICE VISIT Date of Service: 04/17/24 MR#: [id number] Acct: [id number] Patient: AMANDA GRUBBS Rep #: [id number] : 1970 Provider: BLU Clinton Age/Sex: 53/F Location: [facility] Status: Signed Employer Purchased Covid Test Note: Patient here today for Covid Testing, requested by their Employer. 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 Office Visit Report [facility] [address] [place] [address] OFFICE VISIT Date of Service: 04/17/24 MR#: [id number] Acct: [id number] Patient: AMANDA GRUBBS Rep #: [id number] : 1970 Provider: BLU Clinton Age/Sex: 53/F Location: [facility] Status: Signed Employer Purchased Covid Test Note: [...] Lemaigner Signature: Date (if applicable) CC: Normal [facility] Urgent Care Visit Reporton 1 06-17-2023 Urgent Care Visit Report [facility] [address] , [address] [place] [address] OFFICE VISIT Date of Service: 04/17/24 MR#: [id number] Acct: [id number] Name: AMANDA GRUBBS Rep #: [id number] : 1970 Provider: BLU Clinton Age/Sex: 53/F Location: [facility] Status: Signed Intake Vital Signs 12/12/23 14:29 04/17/24 13:37 Height 5 ft 3 in BP 122/84 H Blood Pressure Location Lt brachial Position Sitting Respiration 15 Pulse 81 Pulse Source NIBP Temp 98.2 F Temp Source Oral Pulse Oximetry (%) 98 Oxygen Delivery Method room air Intake Visit Reasons: FEVER, FATIGUE, SORE THROAT Chief Complaint: fever, fatigue, PND, BA , [place] Multi Operation Machine Operator Required: No Is patient in pain?: Yes Allergies No Known Allergies Allergy (Verified 04/17/24 13:38) Is last menstrual period known: No Post menopausal: No Patient : No Have you fallen in the past year?: No Nurse's Note: fever, fatigue, PND, BA , [place] x 4 days without resolve. [facility] Medical History (Updated 04/15/24 @ 10:56 by [...] Signature: Date (more content not included)... Normal [facility] L5000.0012on 03-29-[address] [facility] Comment on above: Result Comment: TEST RESULTS LIMITS Vitamin B12 261 pg/mL 232-1245 [facility] ORIGINAL REPORT ON FILE IN LAB CONTAINS ADDITIONAL TEST SITE INFORMATION. Performed By: #### L 506.0400, L5000.0012, L503.6550, L501.9520 ####[facility] [address], [address] Ferritinon 03-26-2024 Ferritin [Mass/Vol] 19 ng/mL Normal [facility] Comment on above: Performed By: #### L 506.0400, L5000.0012, L503.6550, L501.9520 ####[facility] [address] [place], [address] T4 Free Directon 03-26-2024 T4 FREE DIRECT 0.70 ng/dL Low 0.76-1.46 [facility] Comment on above: Performed By: #### L 506.0400, L5000.0012, L503.6550, L501.9520 ####[facility] [address] [place], [address] Thyroid Stim Hormone (TSH)on 03-26-2024 TSH 1.370 uIU/mL Normal 0.358-3.[address] [facility] Comment on above: Performed By: #### L 506.0400, L5000.0012, L503.6550, L501.9520 ####[facility] [address] [place], [address] Laboratory - Chemistry and C hemistry - challengeOrdered By: Franky Pearson on 09-12-2023 Cobalamin (Vitamin B12) [Mass/Vol] 364 pg/mL 211-911 [facility] Ferritin [Mass/Vol] 26 ng/mL [facility] Serum or plasma thiamine kayla surement (mass/volume)Ordered By: Franky Pearson on 09-12-2023 Thiamine [Mass/Vol] 72.8 nmol/L 66.5-200.0 [facility] Comment on above: Performed at: [facility] [address] [id number] Director: James Herrera MD, Phone: [phone] Basophil percentageOrdered B y: Franky Pearson on 06-22-2023 Bilirubin [Mass/Vol] 0.40 mg/dL 0.20-1.[address] [facility] Comment on above: For patients on eltr ombopag therapy, use of Dimension [place] TBIL is not recommended. Chloride [Moles/Vol] 108 mmol/L 98-107 [facility] Cholesterol [Mass/Vol] 176 mg/dL <200 [facility] Comment on above: <200 mg/dL Desirable 200-240 mg/dL Borderline >240 mg/dL High Risk Glucose [Mass/Vol] 82 mg/dL 74-106 [facility] Potassium [Moles/Vol] 4.5 mmol/L 3.5-5.1 [facility] Protein [Mass/Vol] 7.6 g/dL 6.4-8.2 [facility] Sodium [Moles/Vol] 141 mmol/L 136-145 [facility] Triglyceride [Mass/Vol] 58 mg/dL <199 [facility] Comment on above: The drugs N-Acetylcy steine and Metamizole may falsely depress this assay.Serum Triglycerides Reference Interval Normal <150 mg/dL Borderline high 150 - 199 mg/dL High 200 - 499 mg/dL Very High > or = 500 mg/dL WBC (Bld) [#/Vol] 5.4 10*3/uL 4.4-11.0 [facility] Blood erythrocytes count (nu mber/volume)Ordered By: Franky Pearson on 06-22-2023 RBC (Bld) [#/Vol] 4.25 10*6/uL 4.2-5.4 [facility] Blood hemoglobin measurement (mass/volume)Ordered By: Franky Pearson on 06-22-2023 Hemoglobin (Bld) [Mass/Vol] 12.7 g/dL 12.0-15.0 [facility] Blood platelet mean volumeOr dered By: Franky Pearson on 06-22-2023 Platelet mean volume (Bld) [Entitic vol] 9.3 fL 6.2-12.0 [facility] Determination of erythrocyte mean corpuscular volume (MCV)Ordered By: Franky Pearson on 06-22-2023 MCV (RBC) [Entitic vol] 95.1 fL 81-99 [facility] Folic acid serumOrdered By: Franky Pearson on 06-22-2023 Folate [Mass/Vol] 7.40 ng/mL 3.1-55.4 [facility] Hematocrit Auto (Bld) [Volum e fraction]Ordered By: Franky Pearson on 06-22-2023 Hematocrit (Bld) [Volume fraction] 40.4 % 37-47 [facility] Laboratory - Chemistry and C hemistry - challengeOrdered By: Franky Pearson on 06-22-2023 ALP [Catalytic activity/Vol] 84 U/L 45-117 [facility] ALT [Catalytic activity/Vol] 24 U/L 13-56 [facility] CO2 [Moles/Vol] 29.0 mmol/L 21.0-32.0 [facility] Cobalamin (Vitamin B12) [Mass/Vol] 219 pg/mL 211-911 [facility] Globulin (S) [Mass/Vol] 3.8 g/dL 2.2-4.2 [facility] Urea nitrogen/Creatinine [Mass ratio] 13.4 mg/mg 10-20 [facility] Laboratory - Hematology and Cell countsOrdered By: Franky Pearson on 06-22-2023 Erythrocyte distribution width (RBC) [Entitic vol] 44.1 fL 35.1-43.9 [facility] Erythrocyte distribution width (RBC) [Ratio] 12.7 % 11.6-14.6 [facility] MCH (RBC) [Entitic mass] 29.9 pg 27.0-32.0 [facility] MCHC Auto (RBC) [Mass/Vol]Or dered By: Franky Pearson on 06-22-2023 MCHC (RBC) [Mass/Vol] 31.4 g/dL 32-36 [facility] No Panel InformationOrdered By: Franky Pearson on 06-22-2023 Estimated GFR (MDRD) Amer 78 mL/min >60 [facility] Comment on above: GFR Calc Estimated GFR (MDRD) Non-Af Amer 64 mL/min >60 [facility] Comment on above: Non- GFR Calc Thyroid Stimulating Hormone (TSH) 1.00 uIU/mL 0.358-3.74 [facility] Vitamin D 25-Hydroxy 54.4 ng/mL [facility] Comment on above: Vitamin D 25(OH) Sta tus Range Deficiency <20 ng/mL (50nmol/L) Insufficiency 20 - 30 ng/mL (50 - 75 nmol/L) Sufficiency 30 - 100 ng/mL (75 - 250 nmol/L) Toxicity >100 ng/mL (>250 nmol/L) Platelets bldOrdered By: Carmen flores Lili on 06-22-2023 Platelets (Bld) [#/Vol] 312 10*3/uL 150-450 [facility] Serum or plasma albumin sharifa urement (mass/volume)Ordered By: Franky Pearson on 06-22-2023 Albumin [Mass/Vol] 3.8 g/dL 3.2-5.0 [facility] Serum or plasma albumin/glob ulin mass ratioOrdered By: Franky Pearson on 06-22-2023 Albumin/Globulin [Mass ratio] 1.0 {ratio} 0.9-2.4 [facility] Serum or plasma calcium sharifa urement (mass/volume)Ordered By: Franky Pearson on 06-22-2023 Calcium [Mass/Vol] 9.5 mg/dL 8.5-10.1 [facility] Serum or plasma cholesterol in HDL measurement (mass/volume)Ordered By: Franky Pearson on 06-22-2023 Cholesterol in HDL [Mass/Vol] 76 mg/dL >40 [facility] Comment on above: The drugs N-Acetylcy steine and Metamizole may falsely depress this assay. Reference Range HDL <40 mg/dL Low HDL Cholesterol HDL >or= 60 mg/dL High HDL Cholesterol Serum or plasma cholesterol in VLDL measurement (mass/volume)Ordered By: Franky Pearson on 06-22-2023 Cholesterol in VLDL [Mass/Vol] 12 mg/dL 5-40 [facility] Serum or plasma creatinine m easurement (mass/volume)Ordered By: Franky Pearson on 06-22-2023 Creatinine [Mass/Vol] 0.97 mg/dL 0.55-1.02 [facility] Comment on above: The validity of the calculated GFR & GFRAA in patients over 70 years has not been determined. Clinical correlation is essential. Serum or plasma ferritin kayla surement (mass/volume)Ordered By: Franky Pearson on 06-22-2023 Ferritin [Mass/Vol] 18 ng/mL 8-252 [facility] Serum or plasma low density lipoprotein (LDL) cholesterol measurement (mass/volume)Ordered By: Franky Pearson on 06-22-2023 Cholesterol in LDL [Mass/Vol] 88 mg/dL 0-130 [facility] Serum or plasma thiamine kayla surement (mass/volume)Ordered By: Franky Pearson on 06-22-2023 Thiamine [Mass/Vol] 157.3 nmol/L 66.5-200.0 [facility] Serum or plasma urea nitroge n measurement (mass/volume)Ordered By: Franky Pearson on 06-22-2023 Urea nitrogen [Mass/Vol] 13 mg/dL 7-18 [facility] Serum or plasma zinc measure ment (mass/volume)Ordered By: Franky Pearson on 06-22-2023 Zinc [Mass/Vol] 84 ug/dL 44-115 [facility] Comment on above: Detection Limit = 5P erformed at: [facility] [id number] Director: James Herrera MD, Phone: [phone] Thin prep Papanicolaou smear with manual screeningOrdered By: Franky Pearson on 06-22-2023 Thin prep Papanicolaou smear with manual screening 17 U/L 15-37 [facility] Thin prep Papanicolaou smear with manual screening 4 5-15 [facility] Whole blood hemoglobin A1c/t otal hemoglobin ratio (mass fraction)Ordered By: Franky Pearson on 06-22-2023 HbA1c (Bld) [Mass fraction] 5.4 % 3.8-5.6 [facility] Comment on above: Normal < 5.7 % Predi abetic 5.7 - 6.4 % Diabetic >or= 6.5 % Please note range changes. Laboratory - Microbiology an d Antimicrobial susceptibilityon 05-13-2023 SARS-CoV-2 (COVID-19) RNA SANTINO+probe Ql (Unsp spec) Not detected [facility] No Panel Informationon 05-13 POC Nasal Swab Influenza A,B Not detected [facility] POC Nasal Swab RSV Not detected [facility] 36on 01-16-2023 36 Name of Caller: Ayesha ríos Contact Reason for Appointment: Pt needs to cancel upcoming appt and the pt sill call back to resx. Please advise Office Name: [facility] Medication Refills need, if any: NA Medication Name: NA Normal [facility] 36on 11-06-2022 36 Please contact the p t regarding the dose of ozempic. 1 mg was prescibed on 08/18/2022. The request for 2 mg does not match the prescription. Please let me know. Thank you [facility] 36on 10-26-2022 36 Requested Prescripti ons Pending Prescriptions Disp Refills Semaglutide, 2 MG/DOSE, (Ozempic, 2 MG/DOSE,) 8 MG/3ML solution pen-injector 12 mL 0 Sig: Inject 2 mg under the skin 1 (one) time per week. Last seen on 08-18-22 by NK Next appt on 12/15/22 with NK [facility] [id number] 09-13-2022 Vitamin B1 (TDP), Whole Blood 92.0 nmol/L Normal 84.3-213.3 [facility] ([place]) Comment on above: Result Comment: Disr egard reference range. Test performed at [facility]. Reference interval: 70-180 nmol/L This assay measures the concentration of thiamine diphosphate (TDP), the primary active form of vitamin B1. Approximately 90 percent of vitamin B1 present in the whole blood is TDP. Thiamine and thiamine monophosphate, which compromise the remaining 10 present are not measured. This test was developed and its performance characteristics determine by [facility] [employer]. It has not been cleared or approved by the [place] Food and Drug administration. This test was performed in a CLIA certified laboratory and is intended for clinical purposes. Performed By: [facility] [address] [place] [address] Family Living Educator: Kenny Nunes III, M.D. CLIA#: [id number] Performed By: #### A HUMBERTO CONTEH #### [address] [address] ZINCon 09-04-2022 Zinc (s) 65 UG/DL Normal 60-120 [facility] ([place]) Comment on above: Result Comment: This test was developed and its performance characteristics determined by [facility]'s Noel Najera [facility] [place] ([facility]). It has not been cleared or approved by the FDA. [facility] is regulated under CLIA as qualified to perform high-complexity testing. This test is used for clinical purposes. It should not be regarded as investigational or for research. Performed By: [facility] [address] [place] [address] Family Living Educator: Pily Tapia III#: [id number] Performed By: #### A HUMBERTO CONTEH #### [address] [address] .Auto Diffon 09-02-2022 Basophil, Absolute 0.0 10 3/mcL Normal 0.0-0.2 [facility] ([place]) Comment on above: Performed By: #### H CV1 #### [place] [address] #### CBC, ADIFF, CK, ANEU, CMP, A1C, LIPID, VIDH, MG, TSH, GFR, B1WB, ZINC #### [address] [address] Basophils/100 WBC (Bld) 0.5 % Normal 0.0-2.5 [facility] ([place]) Comment on above: Performed By: #### H CV1 #### [address] [address] #### CBC, ADIFF, CK, ANEU, CMP, A1C, LIPID, VIDH, MG, TSH, GFR, B1WB, ZINC #### [address] [address] Eosinophil, Absolute 0.2 10 3/mcL Normal 0.0-0.4 [facility] ([place]) Comment on above: Performed By: #### H CV1 #### [place] [address] #### CBC, ADIFF, CK, ANEU, CMP, A1C, LIPID, VIDH, MG, TSH, GFR, B1WB, ZINC #### [address] [address] Eosinophils/100 WBC (Bld) 2.1 % Normal 0.0-7.0 [facility] ([place]) Comment on above: Performed By: #### H CV1 #### [place] [address] #### CBC, ADIFF, CK, ANEU, CMP, A1C, LIPID, VIDH, MG, TSH, GFR, B1WB, ZINC #### [address] [address] Lymphocyte, Absolute 2.3 10 3/mcL Normal 0.8-3.9 [facility] ([place]) Comment on above: Performed By: #### H CV1 #### [place] [address] #### CBC, ADIFF, CK, ANEU, CMP, A1C, LIPID, VIDH, MG, TSH, GFR, B1WB, ZINC #### [address] [address] Lymphocytes/100 WBC (Bld) 30.9 % Normal 10.0-50.0 [facility] ([place]) Comment on above: Performed By: #### H CV1 #### [place] [address] #### CBC, ADIFF, CK, ANEU, CMP, A1C, LIPID, VIDH, MG, TSH, GFR, B1WB, ZINC #### [address] [address] Monocyte, Absolute 0.7 10 3/mcL Normal 0.2-1.0 [facility] ([place] Comment on above: Performed By: #### H CV1 #### [place] [address] #### CBC, ADIFF, CK, ANEU, CMP, A1C, LIPID, VIDH, MG, TSH, GFR, B1WB, ZINC #### [address] [address] Monocytes/100 WBC (Bld) 9.0 % Normal 1.7-13.0 [facility] ([place]) Comment on above: Performed By: #### H CV1 #### [place] [address] #### CBC, ADIFF, CK, ANEU, CMP, A1C, LIPID, VIDH, MG, TSH, GFR, B1WB, ZINC #### [address] [address] Neutrophils/100 WBC (Bld) 57.5 % Normal 37.0-80.0 [facility] ([place]) Comment on above: Performed By: #### H CV1 #### [address] [address] #### CBC, ADIFF, CK, ANEU, CMP, A1C, LIPID, VIDH, MG, TSH, GFR, B1WB, ZINC #### [address] [address] .GFRon 09-02-2022 GFR 97 ml/min/1.73sqm Normal [facility] ([place]) Comment on above: Result Comment: GFR Population [...] Performed By: #### A MY, TROPHS #### [address] [address] GFR Non- 80 ml/min/1.73sqm Normal [facility] ([place]) Comment on above: Result Comment: GFR Population [...] Performed By: #### A HUMBERTO CONTEH #### [address] [address] .NEUABSon 09-02-2022 Neutrophil, Absolute 4.3 10 3/mcL Normal 2.9-6.2 [facility] ([place]) Comment on above: Performed By: #### H CV1 #### [address] [address] #### CBC, ADIFF, CK, ANEU, CMP, A1C, LIPID, VIDH, MG, TSH, GFR, B1WB, ZINC #### [address] [address] A1Con 09-02-2022 HbA1c (Bld) [Mass fraction] 5.6 % Normal 4.3-6.4 [facility] ([place]) Comment on above: Performed By: #### H CV1 #### [address] [address] #### CBC, ADIFF, CK, ANEU, CMP, A1C, LIPID, VIDH, MG, TSH, GFR, B1WB, ZINC #### [address] [address] CBCon 09-02-2022 Erythrocyte distribution width (RBC) [Ratio] 13.6 % Normal 11.5-14.5 [facility] ([place]) Comment on above: Performed By: #### H CV1 #### [address] [address] #### CBC, ADIFF, CK, ANEU, CMP, A1C, LIPID, VIDH, MG, TSH, GFR, B1WB, ZINC #### [address] [address] Hematocrit (Bld) [Volume fraction] 35.7 % Low 37.0-47.0 [facility] ([place]) Comment on above: Performed By: #### H CV1 #### [address] [address] #### CBC, ADIFF, CK, ANEU, CMP, A1C, LIPID, VIDH, MG, TSH, GFR, B1WB, ZINC #### [address] [address] Hgb 12.2 G/dL Normal 12.0-16.0 [facility] ([place]) Comment on above: Performed By: #### H CV1 #### [place] [address] #### CBC, ADIFF, CK, ANEU, CMP, A1C, LIPID, VIDH, MG, TSH, GFR, B1WB, ZINC #### [address] [address] MCH (RBC) [Entitic mass] 30.9 pg Normal 27.0-31.2 [facility] ([place]) Comment on above: Performed By: #### H CV1 #### [place] [address] #### CBC, ADIFF, CK, ANEU, CMP, A1C, LIPID, VIDH, MG, TSH, GFR, B1WB, ZINC #### [address] [address] MCHC 34.1 G/dL Normal 33.0-37.0 [facility] ([place]) Comment on above: Performed By: #### H CV1 #### [address] [address] #### CBC, ADIFF, CK, ANEU, CMP, A1C, LIPID, VIDH, MG, TSH, GFR, B1WB, ZINC #### [address] [address] MCV (RBC) [Entitic vol] 90.7 fL Normal 80.0-94.0 [facility] ([place]) Comment on above: Performed By: #### H CV1 #### [place] [address] #### CBC, ADIFF, CK, ANEU, CMP, A1C, LIPID, VIDH, MG, TSH, GFR, B1WB, ZINC #### [address] [address] Platelet 419 10 3/mcL High 130-400 [facility] ([place]) Comment on above: Performed By: #### H CV1 #### [address] [address] #### CBC, ADIFF, CK, ANEU, CMP, A1C, LIPID, VIDH, MG, TSH, GFR, B1WB, ZINC #### [address] [address] Platelet mean volume (Bld) [Entitic vol] 6.6 fL Low 7.4-10.4 [facility] ([place]) Comment on above: Performed By: #### H CV1 #### [place] [address] #### CBC, ADIFF, CK, ANEU, CMP, A1C, LIPID, VIDH, MG, TSH, GFR, B1WB, ZINC #### [address] [address] RBC 3.94 10 6/mcL Low 4.20-5.40 [facility] ([place]) Comment on above: Performed By: #### H CV1 #### [address] [address] #### CBC, ADIFF, CK, ANEU, CMP, A1C, LIPID, VIDH, MG, TSH, GFR, B1WB, ZINC #### [address] [address] WBC 7.5 10 3/mcL Normal 4.6-10.8 [facility] ([place]) Comment on above: Performed By: #### H CV1 #### [address] [address] #### CBC, ADIFF, CK, ANEU, CMP, A1C, LIPID, VIDH, MG, TSH, GFR, B1WB, ZINC #### [address] [address] CKon 09-02-2022 CK [Catalytic activity/Vol] 32 U/L Normal 26-192 [facility] ([place]) Comment on above: Performed By: #### H CV1 #### [place] [address] #### CBC, ADIFF, CK, ANEU, CMP, A1C, LIPID, VIDH, MG, TSH, GFR, B1WB, ZINC #### [address] [address] CMPon 09-02-2022 Albumin Level 3.7 G/dL Normal 3.5-5.0 [facility] ([place]) Comment on above: Performed By: #### A HUMBERTO CONTEH #### [address] [address] Albumin/Globulin [Mass ratio] 1.1 {ratio} Normal 1.1-2.5 [facility] ([place]) Comment on above: Performed By: #### HUMBERTO WADE #### [address] [address] ALP [Catalytic activity/Vol] 83 U/L Normal 40-135 [facility] ([place]) Comment on above: Performed By: #### A HUMBERTO CONTEH #### [address] [address] ALT [Catalytic activity/Vol] 27 U/L Normal 14-59 [facility] ([place]) Comment on above: Performed By: #### HUMBERTO WADE #### [address] [address] AST [Catalytic activity/Vol] 15 U/L Normal 10-40 [facility] ([place]) Comment on above: Performed By: #### HUMBERTO WADE #### [address] [address] Bili Total 0.2 mg/dL Normal 0.2-1.0 [facility] ([place]) Comment on above: Result Comment: Use of this assay is not recommended for patients undergoing treatment with eltrombopag due to the potential for falsely elevated results. Performed By: #### HUMBERTO WADE #### [address] [address] BUN/Creatinine Ratio 16 ratio Normal 7-27 [facility] ([place]) Comment on above: Performed By: #### HUMBERTO WADE #### [address] [address] Calcium [Mass/Vol] 9.0 mg/dL Normal 8.4-10.2 [facility] ([place]) Comment on above: Performed By: #### A WERO TROPHS #### [address] [address] Chloride [Moles/Vol] 104 mmol/L Normal 98-107 [facility] ([place]) Comment on above: Performed By: #### A WERO TROPHS #### [address] [address] CO2 [Moles/Vol] 29 mmol/L Normal 22-29 [facility] ([place]) Comment on above: Performed By: #### A KRISTAL CONTEHS #### [address] [address] Creatinine [Mass/Vol] 0.76 mg/dL Normal 0.55-1.02 [facility] ([place]) Comment on above: Performed By: #### A KRISTAL CONTEHS #### [address] [address] Electrolyte Balance 9.0 mEq/L Normal 4.0-15.0 [facility] ([place]) Comment on above: Performed By: #### A KRISTAL CONTEHS #### [address] [address] Globulin 3.3 G/dL Normal [facility] ([place]) Comment on above: Performed By: #### A KRISTAL CONTEHS #### [address] [address] Glucose [Mass/Vol] 76 mg/dL Normal 70-105 [facility] ([place]) Comment on above: Performed By: #### A KRISTAL CONTEHS #### [address] [address] Potassium [Moles/Vol] 4.3 mmol/L Normal 3.5-5.1 [facility] ([place]) Comment on above: Performed By: #### A KRISTAL CONTEHS #### [place] [address] [place], [place] [address] Sodium [Moles/Vol] 142 mmol/L Normal 136-145 [facility] ([place]) Comment on above: Performed By: #### A KRISTAL CONTEHS #### [place] [id number] [place], [place] [address] Total Protein 7.0 G/dL Normal 6.4-8.2 [facility] ([place]) Comment on above: Performed By: #### A KRISTAL CONTEHS #### [address] [address] Urea nitrogen [Mass/Vol] 12 mg/dL Normal 7-18 [facility] ([place]) Comment on above: Performed By: #### A HUMBERTO CONTEH #### [address] [address] HCVon 09-02-2022 Hep C Ab Non-Reactive Normal Non-Reacti ve [facility] ([place]) Comment on above: Performed By: #### A KRISTAL CONTEHS #### [address] [address] Hep C Ab Int Normal [facility] ([place]) Comment on above: Result Comment: Nonr eactive: Samples with a value < 0.80 are considered nonreactive (negative) for antibodies to HCV. A negative test result does not exclude the possibility of exposure to or infection with HCV. HCV antibodies may be undetectable in some stages of the infection and in some clinical conditions. See Interp Performed By: #### KRISTAL WADES #### [address] [address] LABORATORYOrdered By: SYSTEM SYSTEM on 09-02-2022 Albumin [...] 09-02-2022 Cholesterol [Mass/Vol] 185 mg/dL Normal 0-200 [facility] ([place]) Comment on above: Result Comment: Chol esterol Reference Interval: Less than 200 Desirable 200-239 Borderline high risk 240 and above High risk Performed By: #### A HUMBERTO CONTEH #### [address] [address] Cholesterol in HDL [Mass/Vol] 67 mg/dL High 40-60 [facility] ([place]) Comment on above: Performed By: #### A HUMBERTO CONTEH #### [address] [address] Cholesterol in LDL [Mass/Vol] 96 mg/dL Normal 0-130 [facility] ([place]) Comment on above: Performed By: #### A HUMBERTO CONTEH #### [address] [address] Triglyceride [Mass/Vol] 109 mg/dL Normal 0-150 [facility] ([place]) Comment on above: Result Comment: Trig lyceride Reference Interval: Less than 150 Normal 150-199 Borderline high risk 200-499 High risk 500 or higher Very high risk Performed By: #### A MY, HUMBERTO #### [address] [address] MGon 09-02-2022 Magnesium [Mass/Vol] 2.1 mg/dL Normal 1.8-2.4 [facility] ([place]) Comment on above: Performed By: #### H CV1 #### [address] [address] #### CBC, ADIFF, CK, ANEU, CMP, A1C, LIPID, VIDH, MG, TSH, GFR, B1WB, ZINC #### [address] [address] TSHon 09-02-2022 TSH Qn 1.47 m[IU]/L Normal 0.36-3.74 [facility] ([place]) Comment on above: Performed By: #### H CV1 #### [address] [address] #### CBC, ADIFF, CK, ANEU, CMP, A1C, LIPID, VIDH, MG, TSH, GFR, B1WB, ZINC #### [address] [address] VIDHon 09-02-2022 Vit. D 25-Hydroxy 46.3 ng/mL Normal [facility] ([place]) Comment on above: Result Comment: Inte rpretive Values Based on Total 25(OH) Vitamin D: Deficient <20 ng/mL Insufficient 20 - <30 ng/mL Sufficient 30-100 ng/mL Performed By: #### H CV1 #### [place] [address] #### CBC, ADIFF, CK, ANEU, CMP, A1C, LIPID, VIDH, MG, TSH, GFR, B1WB, ZINC #### [address] [address] .Auto Diffon 03-18-2023 Basophil, Absolute 0.0 10 3/mcL Normal 0.0-0.2 [facility] ([place]) Comment on above: Performed By: #### H CV1 #### [place] [address] #### CBC, ADIFF, CK, ANEU, CMP, A1C, LIPID, VIDH, MG, TSH, GFR, B1WB, ZINC #### [address] [address] Basophils/100 WBC (Bld) 0.2 % Normal 0.0-2.5 [facility] ([place]) Comment on above: Performed By: #### H CV1 #### [place] [address] #### CBC, ADIFF, CK, ANEU, CMP, A1C, LIPID, VIDH, MG, TSH, GFR, B1WB, ZINC #### [address] [address] Eosinophil, Absolute 0.1 10 3/mcL Normal 0.0-0.4 [facility] ([place]) Comment on above: Performed By: #### H CV1 #### [place] [address] #### CBC, ADIFF, CK, ANEU, CMP, A1C, LIPID, VIDH, MG, TSH, GFR, B1WB, ZINC #### [address] [address] Eosinophils/100 WBC (Bld) 0.9 % Normal 0.0-7.0 [facility] ([place]) Comment on above: Performed By: #### H CV1 #### [place] [address] #### CBC, ADIFF, CK, ANEU, CMP, A1C, LIPID, VIDH, MG, TSH, GFR, B1WB, ZINC #### [address] [address] Lymphocyte, Absolute 0.7 10 3/mcL Low 0.8-3.9 [facility] ([place]) Comment on above: Performed By: #### H CV1 #### [place] [address] #### CBC, ADIFF, CK, ANEU, CMP, A1C, LIPID, VIDH, MG, TSH, GFR, B1WB, ZINC #### [address] [address] Lymphocytes/100 WBC (Bld) 8.5 % Low 10.0-50.0 [facility] ([place]) Comment on above: Performed By: #### H CV1 #### [place] [address] #### CBC, ADIFF, CK, ANEU, CMP, A1C, LIPID, VIDH, MG, TSH, GFR, B1WB, ZINC #### [address] [address] Monocyte, Absolute 0.5 10 3/mcL Normal 0.2-1.0 [facility] ([place]) Comment on above: Performed By: #### H CV1 #### [place] [address] #### CBC, ADIFF, CK, ANEU, CMP, A1C, LIPID, VIDH, MG, TSH, GFR, B1WB, ZINC #### [address] [address] Monocytes/100 WBC (Bld) 6.4 % Normal 1.7-13.0 [facility] ([place]) Comment on above: Performed By: #### H CV1 #### [place] [address] #### CBC, ADIFF, CK, ANEU, CMP, A1C, LIPID, VIDH, MG, TSH, GFR, B1WB, ZINC #### [address] [address] Neutrophils/100 WBC (Bld) 84.0 % High 37.0-80.0 [facility] ([place]) Comment on above: Performed By: #### H CV1 #### [place] [address] #### CBC, ADIFF, CK, ANEU, CMP, A1C, LIPID, VIDH, MG, TSH, GFR, B1WB, ZINC #### [place] [place] [address] [place], [place] [address] .GFRon 08-26-2022 GFR 82 ml/min/1.73sqm Normal [facility] ([place]) Comment on above: Result Comment: GFR Population [...] meters Performed By: #### H CV1 #### [address] [address] #### CBC, ADIFF, CK, ANEU, CMP, A1C, LIPID, VIDH, MG, TSH, GFR, B1WB, ZINC #### [place] [place] [address] [place], [place] [address] GFR Non- 68 ml/min/1.73sqm Normal [facility] ([place]) Comment on above: Result Comment: GFR Population [...] meters Performed By: #### H CV1 #### [address] [address] #### CBC, ADIFF, CK, ANEU, CMP, A1C, LIPID, VIDH, MG, TSH, GFR, B1WB, ZINC #### [address] [address] .MDWon 08-26-2022 Monocyte Distribution Width 20.32 High 0.00-20.00 [facility] ([place]) Comment on above: Result Comment: For adults in ED, MDW>20.0 may be associated with a higher risk of sepsis during the first 12hrs of hospital admission Performed By: #### H CV1 #### [address] [address] #### CBC, ADIFF, CK, ANEU, CMP, A1C, LIPID, VIDH, MG, TSH, GFR, B1WB, ZINC #### [address] [address] .NEUABSon 08-26-2022 Neutrophil, Absolute 6.7 10 3/mcL High 2.9-6.2 [facility] ([place]) Comment on above: Performed By: #### H CV1 #### [address] [address] #### CBC, ADIFF, CK, ANEU, CMP, A1C, LIPID, VIDH, MG, TSH, GFR, B1WB, ZINC #### [address] [address] AMYon 08-26-2022 Amylase [Catalytic activity/Vol] 54 U/L Normal 25-115 [facility] ([place]) Comment on above: Performed By: #### A MY, TROPHS #### [address] [address] CBCon 08-26-2022 Erythrocyte distribution width (RBC) [Ratio] 13.7 % Normal 11.5-14.5 [facility] ([place]) Comment on above: Performed By: #### H CV1 #### [address] [address] #### CBC, ADIFF, CK, ANEU, CMP, A1C, LIPID, VIDH, MG, TSH, GFR, B1WB, ZINC #### [address] [address] Hematocrit (Bld) [Volume fraction] 37.5 % Normal 37.0-47.0 [facility] ([place]) Comment on above: Performed By: #### H CV1 #### [address] [address] #### CBC, ADIFF, CK, ANEU, CMP, A1C, LIPID, VIDH, MG, TSH, GFR, B1WB, ZINC #### [address] [address] Hgb 12.6 G/dL Normal 12.0-16.0 [facility] ([place]) Comment on above: Performed By: #### H CV1 #### [address] [address] #### CBC, ADIFF, CK, ANEU, CMP, A1C, LIPID, VIDH, MG, TSH, GFR, B1WB, ZINC #### [address] [address] MCH (RBC) [Entitic mass] 30.7 pg Normal 27.0-31.2 [facility] ([place]) Comment on above: Performed By: #### H CV1 #### [address] [address] #### CBC, ADIFF, CK, ANEU, CMP, A1C, LIPID, VIDH, MG, TSH, GFR, B1WB, ZINC #### [address] [address] MCHC 33.7 G/dL Normal 33.0-37.0 [facility] ([place]) Comment on above: Performed By: #### H CV1 #### [address] [address] #### CBC, ADIFF, CK, ANEU, CMP, A1C, LIPID, VIDH, MG, TSH, GFR, B1WB, ZINC #### [address] [address] MCV (RBC) [Entitic vol] 91.1 fL Normal 80.0-94.0 [facility] ([place]) Comment on above: Performed By: #### H CV1 #### [address] [address] #### CBC, ADIFF, CK, ANEU, CMP, A1C, LIPID, VIDH, MG, TSH, GFR, B1WB, ZINC #### [address] [address] Platelet 304 10 3/mcL Normal 130-400 [facility] ([place]) Comment on above: Performed By: #### H CV1 #### [place] [address] #### CBC, ADIFF, CK, ANEU, CMP, A1C, LIPID, VIDH, MG, TSH, GFR, B1WB, ZINC #### [address] [address] Platelet mean volume (Bld) [Entitic vol] 7.0 fL Low 7.4-10.4 [facility] ([place]) Comment on above: Performed By: #### H CV1 #### [place] [address] #### CBC, ADIFF, CK, ANEU, CMP, A1C, LIPID, VIDH, MG, TSH, GFR, B1WB, ZINC #### [address] [address] RBC 4.11 10 6/mcL Low 4.20-5.40 [facility] ([place]) Comment on above: Performed By: #### H CV1 #### [place] [address] #### CBC, ADIFF, CK, ANEU, CMP, A1C, LIPID, VIDH, MG, TSH, GFR, B1WB, ZINC #### [address] [address] WBC 8.0 10 3/mcL Normal 4.6-10.8 [facility] ([place]) Comment on above: Performed By: #### H CV1 #### [address] [address] #### CBC, ADIFF, CK, ANEU, CMP, A1C, LIPID, VIDH, MG, TSH, GFR, B1WB, ZINC #### [address] [address] CMPon 08-26-2022 Albumin Level 3.9 G/dL Normal 3.5-5.0 [facility] ([place]) Comment on above: Performed By: #### H CV1 #### [place] [address] #### CBC, ADIFF, CK, ANEU, CMP, A1C, LIPID, VIDH, MG, TSH, GFR, B1WB, ZINC #### [address] [address] Albumin/Globulin [Mass ratio] 1.2 {ratio} Normal 1.1-2.5 [facility] ([place]) Comment on above: Performed By: #### H CV1 #### [place] [address] #### CBC, ADIFF, CK, ANEU, CMP, A1C, LIPID, VIDH, MG, TSH, GFR, B1WB, ZINC #### [address] [address] ALP [Catalytic activity/Vol] 97 U/L Normal 40-135 [facility] ([place]) Comment on above: Performed By: #### H CV1 #### [place] [address] #### CBC, ADIFF, CK, ANEU, CMP, A1C, LIPID, VIDH, MG, TSH, GFR, B1WB, ZINC #### [address] [address] ALT [Catalytic activity/Vol] 27 U/L Normal 14-59 [facility] ([place]) Comment on above: Performed By: #### H CV1 #### [place] [address] #### CBC, ADIFF, CK, ANEU, CMP, A1C, LIPID, VIDH, MG, TSH, GFR, B1WB, ZINC #### [address] [address] AST [Catalytic activity/Vol] 34 U/L Normal 10-40 [facility] ([place]) Comment on above: Performed By: #### H CV1 #### [place] [address] #### CBC, ADIFF, CK, ANEU, CMP, A1C, LIPID, VIDH, MG, TSH, GFR, B1WB, ZINC #### [address] [address] Bili Total 0.3 mg/dL Normal 0.2-1.0 [facility] ([place]) Comment on above: Result Comment: Use of this assay is not recommended for patients undergoing treatment with eltrombopag due to the potential for falsely elevated results. Performed By: #### H CV1 #### [place] [address] #### CBC, ADIFF, CK, ANEU, CMP, A1C, LIPID, VIDH, MG, TSH, GFR, B1WB, ZINC #### [address] [address] BUN/Creatinine Ratio 10 ratio Normal 7-27 [facility] ([place]) Comment on above: Performed By: #### H CV1 #### [place] [address] #### CBC, ADIFF, CK, ANEU, CMP, A1C, LIPID, VIDH, MG, TSH, GFR, B1WB, ZINC #### [address] [address] Calcium [Mass/Vol] 8.7 mg/dL Normal 8.4-10.2 [facility] ([place]) Comment on above: Performed By: #### H CV1 #### [place] [address] #### CBC, ADIFF, CK, ANEU, CMP, A1C, LIPID, VIDH, MG, TSH, GFR, B1WB, ZINC #### [address] [address] Chloride [Moles/Vol] 102 mmol/L Normal 98-107 [facility] ([place] Comment on above: Performed By: #### H CV1 #### [address] [address] #### CBC, ADIFF, CK, ANEU, CMP, A1C, LIPID, VIDH, MG, TSH, GFR, B1WB, ZINC #### [address] [address] CO2 [Moles/Vol] 27 mmol/L Normal 22-29 [facility] ([place]) Comment on above: Performed By: #### H CV1 #### [place] [address] #### CBC, ADIFF, CK, ANEU, CMP, A1C, LIPID, VIDH, MG, TSH, GFR, B1WB, ZINC #### [address] [address] Creatinine [Mass/Vol] 0.88 mg/dL Normal 0.55-1.02 [facility] ([place]) Comment on above: Performed By: #### H CV1 #### [place] [address] #### CBC, ADIFF, CK, ANEU, CMP, A1C, LIPID, VIDH, MG, TSH, GFR, B1WB, ZINC #### [address] [address] Electrolyte Balance 8.0 mEq/L Normal 4.0-15.0 [facility] ([place]) Comment on above: Performed By: #### H CV1 #### [place] [address] #### CBC, ADIFF, CK, ANEU, CMP, A1C, LIPID, VIDH, MG, TSH, GFR, B1WB, ZINC #### [address] [address] Globulin 3.2 G/dL Normal [facility] ([place]) Comment on above: Performed By: #### H CV1 #### [address] [address] #### CBC, ADIFF, CK, ANEU, CMP, A1C, LIPID, VIDH, MG, TSH, GFR, B1WB, ZINC #### [address] [address] Glucose [Mass/Vol] 98 mg/dL Normal 70-105 [facility] ([place]) Comment on above: Performed By: #### H CV1 #### [address] [address] #### CBC, ADIFF, CK, ANEU, CMP, A1C, LIPID, VIDH, MG, TSH, GFR, B1WB, ZINC #### [address] [address] Potassium [Moles/Vol] 4.3 mmol/L Normal 3.5-5.1 [facility] ([place]) Comment on above: Performed By: #### H CV1 #### [address] [address] #### CBC, ADIFF, CK, ANEU, CMP, A1C, LIPID, VIDH, MG, TSH, GFR, B1WB, ZINC #### [address] [address] Sodium [Moles/Vol] 137 mmol/L Normal 136-145 [facility] ([place]) Comment on above: Performed By: #### H CV1 #### [place] [address] #### CBC, ADIFF, CK, ANEU, CMP, A1C, LIPID, VIDH, MG, TSH, GFR, B1WB, ZINC #### [address] [address] Total Protein 7.1 G/dL Normal 6.4-8.2 [facility] ([place]) Comment on above: Performed By: #### H CV1 #### [address] [address] #### CBC, ADIFF, CK, ANEU, CMP, A1C, LIPID, VIDH, MG, TSH, GFR, B1WB, ZINC #### [address] [address] Urea nitrogen [Mass/Vol] 9 mg/dL Normal 7-18 [facility] ([place]) Comment on above: Performed By: #### H CV1 #### [place] [id number] [place] [id number] #### CBC, ADIFF, CK, ANEU, CMP, A1C, LIPID, VIDH, MG, TSH, GFR, B1WB, ZINC #### [place] [id number] [place], [place] [address] CRPon 08-26-2022 C-Reactive Protein 4.1 mg/dL High 0.0-0.9 [facility] ([place]) Comment on above: Performed By: #### H CV1 #### [address] [address] #### CBC, ADIFF, CK, ANEU, CMP, A1C, LIPID, VIDH, MG, TSH, GFR, B1WB, ZINC #### [place] [id number] [place], [place] [address] CT ABD/PELVIS W/ IV CONTRAST ONLYon 08-26-2022 [...] 6:34:22 PM Ordering Provider: LINDA MARTINEZ [facility] DIMERon 08-26-2022 D-Dimer <200 Normal 0-230 [facility]) Comment on above: Result Comment: The result [...] (PE). Performed By: #### H CV1 #### [address] [address] #### CBC, ADIFF, CK, ANEU, CMP, A1C, LIPID, VIDH, MG, TSH, GFR, B1WB, ZINC #### [address] [address] LABORATORYOrdered By: SYSTEM SYSTEM on 08-26-2022 Amylase [...] 08-26-2022 Lipase Level 177 U/L High 16-77 [facility] ([place]) Comment on above: Performed By: #### H CV1 #### [address] [address] #### CBC, ADIFF, CK, ANEU, CMP, A1C, LIPID, VIDH, MG, TSH, GFR, B1WB, ZINC #### [address] [address] MGon 08-26-2022 Magnesium [Mass/Vol] 2.0 mg/dL Normal 1.8-2.4 [facility] ([place]) Comment on above: Performed By: #### H CV1 #### [address] [address] #### CBC, ADIFF, CK, ANEU, CMP, A1C, LIPID, VIDH, MG, TSH, GFR, B1WB, ZINC #### [address] [address] PBNPon 08-26-2022 Natriuretic peptide B (Bld) [Mass/Vol] 27 pg/mL Normal 0-125 [facility] ([place]) Comment on above: Result Comment: NT-p roBNP results of less than 300 pg/mL effectively rules out acute congestive heart failure with 99% negative predictive value. Performed By: #### H CV1 #### [address] [address] #### CBC, ADIFF, CK, ANEU, CMP, A1C, LIPID, VIDH, MG, TSH, GFR, B1WB, ZINC #### [address] [address] TROPHSon 08-26-2022 Troponin I High Sensitivity 4.3 ng/L Normal 0.0-51.4 [facility] ([place]) Comment on above: Performed By: #### A MY, TROPHS #### [address] [address] Troponin I High Sensitivity <4.0 Normal 0.0-51.4 [facility] ([place]) Comment on above: Performed By: #### H CV1 #### [place] [address] #### CBC, ADIFF, CK, ANEU, CMP, A1C, LIPID, VIDH, MG, TSH, GFR, B1WB, ZINC #### [address] [address] XR CHEST 1 VIEWon 08-26-2022 XR CHEST [...] 08/26/2022 5:14:04 PM Ordering Provider: LINDA Silverio [facility] ([place]) US BREAST RIGHT LIMITEDon US BREAST RIGHT LIMITED ORIGINAL FROM: [address] [address] PROCEDURE FOR: AMANDA GRUBBS [address] [place] [address] Home: PID#: [id number] Exam#: [id number] : 1970 Age: 52 TO: FRANKY PEARSON DO [facility] [address] [address] Fax: NO FAX EXAMINATION: ULTRASOUND OF THE [...] Provider: FRANKY PEARSON CLINICAL: 6 MONTHS FOLLOW-UP. Rn Nicu: FELIBERTO CINTRON RT(R) RDMS letter sent: Probably Benign BI-RADS 3 Ultrasound BI-RADS: 3 Probably benign Normal [facility] ([place]) Office Visiton 08-18-2022 Follow-up visit [id number] Amanda Grubbs 1970 F Date Provider Department Center 08/18/2022 [id number] SEBASTIAN [facility] None Family History Problem Relation [...] Grandfather Paternal Grandmother Sister Alive Level of Service:54702 SC OFFICE/OUTPATIENT ESTABLISHED LOW MDM 20-29 MIN Reason for Visit and Comments: Bariatrics Post Op Follow-up [884] - DE POP 04/08/18 [facility] Progress Noteon 08-18-2022 Progress Note BARIATRIC CARE [...] Exercising: yes If yes: 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 N/A If yes see Labs Tab Labs completed at Non-[facility] facility? N/A If yes see Encounters Tab - Orders only - Historical Provider - Date: Completed by: Mary Mishra MA [facility] GLUon 08-15-2022 Glucose [Mass/Vol] 78 mg/dL Normal 70-110 [facility] ([place]) Comment on above: Performed By: #### H CV1 #### [address] [address] #### CBC, ADIFF, CK, ANEU, CMP, A1C, LIPID, VIDH, MG, TSH, GFR, B1WB, ZINC #### [address] [address] LIPIDon 08-15-2022 Cholesterol [Mass/Vol] 166 mg/dL Normal 50-199 [facility] ([place]) Comment on above: Result Comment: Chol esterol Reference Interval: Less than 200 Desirable 200-239 Borderline high risk 240 and above High risk Performed By: #### H CV1 #### [address] [address] #### CBC, ADIFF, CK, ANEU, CMP, A1C, LIPID, VIDH, MG, TSH, GFR, B1WB, ZINC #### [address] [address] Cholesterol in HDL [Mass/Vol] 51 mg/dL Normal 40-59 [facility] ([place]) Comment on above: Performed By: #### H CV1 #### [address] [address] #### CBC, ADIFF, CK, ANEU, CMP, A1C, LIPID, VIDH, MG, TSH, GFR, B1WB, ZINC #### [address] [address] Cholesterol in LDL [Mass/Vol] 84 mg/dL Normal 0-129 [facility] ([place]) Comment on above: Performed By: #### H CV1 #### [address] [address] #### CBC, ADIFF, CK, ANEU, CMP, A1C, LIPID, VIDH, MG, TSH, GFR, B1WB, ZINC #### [place] [address] [place], [place] [address] Triglyceride [Mass/Vol] 156 mg/dL High 3-149 [facility] ([place]) Comment on above: Performed By: #### H CV1 #### [address] [address] #### CBC, ADIFF, CK, ANEU, CMP, A1C, LIPID, VIDH, MG, TSH, GFR, B1WB, ZINC #### [address] [address] Office Visiton 07-07-2022 Follow-up visit [id number] Amanda Grubbs 1970 F Date Provider Department Center 07/07/2022 SHAYNA MOELLER [facility] None Family History Problem Relation [...] Grandfather Paternal Grandmother Sister Alive Level of Service:45957 SC OFFICE/OUTPATIENT ESTABLISHED LOW MDM 20-29 MIN Reason for Visit and Comments: Bariatrics Post Op Follow-up [884] - POP D/E FU Normal [facility] Progress Noteon 07-07-2022 Progress Note BARIATRIC [...] or JAD If YES: Labs completed at [facility]? N/A If yes see Labs Tab [facility] If yes see Encounters Tab - Orders only - Historical Provider - Date: Completed by: Manuel Preciado MA [facility] CT THORAX W/O CONTRASTon CT THORAX [...] 2022 12:43:51 PM Ordering Provider: FRANKY Silverio [facility] ([place]) Office Visiton 06-07-2022 Follow-up visit [id number] Amanda Grubbs 1970 F Date Provider Department Center 06/07/2022 [id number] ANDRADE [facility] None Family History Problem Relation [...] Grandfather Paternal Grandmother Sister Alive Level of Service:54371 SC OFFICE/OUTPATIENT ESTABLISHED LOW MDM 20-29 MIN Reason for Visit and Comments: Bariatrics Post Op Follow-up [884] - POP D/E FU [facility] Progress Noteon 06-07-2022 Progress Note BARIATRIC CARE IDALIA Nathan ROOMING NOTE POST WEIGHT LOSS SURGERY FOLLOW UP Patient: Amanda Grubbs Service Date: 06/07/2022 Patient is 5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 N/A If yes see Labs Tab Labs completed at Non-[facility] facility? N/A If yes see Encounters Tab - Orders only - Historical Provider - Date: Completed by: Manuel Preciado MA [facility] Office Visiton 05-10-2022 Follow-up visit [id number] Amanda Grubbs 1970 F Date Provider Department Center 05/10/2022 [id number] ANDRADE [facility] None Family History Problem Relation [...] Grandfather Paternal Grandmother Sister Alive Level of Service:69820 SC OFFICE/OUTPATIENT ESTABLISHED MOD MDM 30-39 MIN Reason for Visit and Comments: Weight Management [645] - POP D/E [facility] Progress Noteon 05-10-2022 Progress Note BARIATRIC CARE [...] or JAD If YES: Labs completed at [facility]? no If yes see Labs Tab Labs completed at Non-[facility] facility? yes If yes see Encounters Tab - Orders only - Historical Provider - Date: 04/26/22 Completed by: Tatum Del Valle MA [facility] B1WBon 05-01-2022 Vitamin B1 (TDP), Whole Blood 94.7 nmol/L Normal 84.3-213.3 [facility] ([place]) Comment on above: Result Comment: This assay measures the concentration of thiamine diphosphate (TDP), the primary active form of vitamin B1. Approximately 90 percent of vitamin B1 present in whole blood is TDP. Thiamine and thiamine monophosphate, which comprise the remaining 10 percent, are not measured. This test was developed and its performance characteristics determined by [facility]'s [facility] [place] ([facility] It has not been cleared or approved by the FDA. -[facility] is regulated under CLIA as qualified to perform high-complexity testing. This test is used for clinical purposes. It should not be regarded as investigational or for research. Performed By: [facility] [address] [place] [address] Family Living Educator: Kenny Nunes III, M.D. CLIA#: [id number] Performed By: #### H CV1 #### [address] [address] #### CBC, ADIFF, CK, ANEU, CMP, A1C, LIPID, VIDH, MG, TSH, GFR, B1WB, ZINC #### [address] [address] ZINCon 04-27-2022 Zinc (s) 52 UG/DL Low 60-120 [facility] ([place]) Comment on above: Result Comment: This test was developed and its performance characteristics determined by [facility]'s [facility] [place] ([facility]). It has not been cleared or approved by the FDA. -[facility] is regulated under CLIA as qualified to perform high-complexity testing. This test is used for clinical purposes. It should not be regarded as investigational or for research. Performed By: [facility] [address] [place] [address] Family Living Educator: Kenny Nunes III, M.D. CLIA#: [id number] Performed By: #### H CV1 #### [address] [address] #### CBC, ADIFF, CK, ANEU, CMP, A1C, LIPID, VIDH, MG, TSH, GFR, B1WB, ZINC #### [address] [address] .Auto Diffon 04-26-2022 Basophil, Absolute 0.0 10 3/mcL Normal 0.0-0.2 [facility] ([place]) Comment on above: Performed By: #### H CV1 #### [address] [address] #### CBC, ADIFF, CK, ANEU, CMP, A1C, LIPID, VIDH, MG, TSH, GFR, B1WB, ZINC #### [address] [address] Basophils/100 WBC (Bld) 0.7 % Normal 0.0-2.5 [facility] ([place]) Comment on above: Performed By: #### H CV1 #### [place] [address] #### CBC, ADIFF, CK, ANEU, CMP, A1C, LIPID, VIDH, MG, TSH, GFR, B1WB, ZINC #### [address] [address] Eosinophil, Absolute 0.2 10 3/mcL Normal 0.0-0.4 [facility] ([place]) Comment on above: Performed By: #### H CV1 #### [place] [address] #### CBC, ADIFF, CK, ANEU, CMP, A1C, LIPID, VIDH, MG, TSH, GFR, B1WB, ZINC #### [address] [address] Eosinophils/100 WBC (Bld) 3.2 % Normal 0.0-7.0 [facility] ([place]) Comment on above: Performed By: #### H CV1 #### [place] [address] #### CBC, ADIFF, CK, ANEU, CMP, A1C, LIPID, VIDH, MG, TSH, GFR, B1WB, ZINC #### [address] [address] Lymphocyte, Absolute 1.8 10 3/mcL Normal 0.8-3.9 [facility] ([place]) Comment on above: Performed By: #### H CV1 #### [place] [address] #### CBC, ADIFF, CK, ANEU, CMP, A1C, LIPID, VIDH, MG, TSH, GFR, B1WB, ZINC #### [address] [address] Lymphocytes/100 WBC (Bld) 33.7 % Normal 10.0-50.0 [facility] ([place]) Comment on above: Performed By: #### H CV1 #### [place] [address] #### CBC, ADIFF, CK, ANEU, CMP, A1C, LIPID, VIDH, MG, TSH, GFR, B1WB, ZINC #### [address] [address] Monocyte, Absolute 0.5 10 3/mcL Normal 0.2-1.0 [facility] ([place]) Comment on above: Performed By: #### H CV1 #### [address] [address] #### CBC, ADIFF, CK, ANEU, CMP, A1C, LIPID, VIDH, MG, TSH, GFR, B1WB, ZINC #### [address] [address] Monocytes/100 WBC (Bld) 10.3 % Normal 1.7-13.0 [facility] ([place]) Comment on above: Performed By: #### H CV1 #### [address] [address] #### CBC, ADIFF, CK, ANEU, CMP, A1C, LIPID, VIDH, MG, TSH, GFR, B1WB, ZINC #### [address] [address] Neutrophils/100 WBC (Bld) 52.1 % Normal 37.0-80.0 [facility] ([place]) Comment on above: Performed By: #### H CV1 #### [address] [address] #### CBC, ADIFF, CK, ANEU, CMP, A1C, LIPID, VIDH, MG, TSH, GFR, B1WB, ZINC #### [address] [address] .GFRon 04-26-2022 GFR 71 ml/min/1.73sqm Normal [facility] ([place]) Comment on above: Result Comment: GFR Population [...] meters Performed By: #### H CV1 #### [address] [address] #### CBC, ADIFF, CK, ANEU, CMP, A1C, LIPID, VIDH, MG, TSH, GFR, B1WB, ZINC #### [address] [address] GFR Non- 59 ml/min/1.73sqm Normal [facility] ([place]) Comment on above: Result Comment: GFR Population [...] meters Performed By: #### H CV1 #### [place] [address] #### CBC, ADIFF, CK, ANEU, CMP, A1C, LIPID, VIDH, MG, TSH, GFR, B1WB, ZINC #### [address] [address] .NEUABSon 04-26-2022 Neutrophil, Absolute 2.8 10 3/mcL Low 2.9-6.2 [facility] ([place]) Comment on above: Performed By: #### H CV1 #### [address] [address] #### CBC, ADIFF, CK, ANEU, CMP, A1C, LIPID, VIDH, MG, TSH, GFR, B1WB, ZINC #### [address] [address] A1Con 04-26-2022 HbA1c (Bld) [Mass fraction] 5.7 % Normal 4.3-6.4 [facility] ([place]) Comment on above: Performed By: #### H CV1 #### [address] [address] #### CBC, ADIFF, CK, ANEU, CMP, A1C, LIPID, VIDH, MG, TSH, GFR, B1WB, ZINC #### [address] [address] B12on 04-26-2022 Cobalamin (Vitamin B12) [Mass/Vol] 328 pg/mL Normal 211-911 [facility] ([place]) Comment on above: Performed By: #### H CV1 #### [place] [address] #### CBC, ADIFF, CK, ANEU, CMP, A1C, LIPID, VIDH, MG, TSH, GFR, B1WB, ZINC #### [address] [address] CBCon 04-26-2022 Erythrocyte distribution width (RBC) [Ratio] 13.0 % Normal 11.5-14.5 [facility] ([place]) Comment on above: Performed By: #### H CV1 #### [address] [address] #### CBC, ADIFF, CK, ANEU, CMP, A1C, LIPID, VIDH, MG, TSH, GFR, B1WB, ZINC #### [address] [address] Hematocrit (Bld) [Volume fraction] 37.6 % Normal 37.0-47.0 [facility] ([place]) Comment on above: Performed By: #### H CV1 #### [address] [address] #### CBC, ADIFF, CK, ANEU, CMP, A1C, LIPID, VIDH, MG, TSH, GFR, B1WB, ZINC #### [address] [address] Hgb 12.7 G/dL Normal 12.0-16.0 [facility] ([place]) Comment on above: Performed By: #### H CV1 #### [place] [address] #### CBC, ADIFF, CK, ANEU, CMP, A1C, LIPID, VIDH, MG, TSH, GFR, B1WB, ZINC #### [address] [address] MCH (RBC) [Entitic mass] 31.4 pg High 27.0-31.2 [facility] ([place]) Comment on above: Performed By: #### H CV1 #### [place] [address] #### CBC, ADIFF, CK, ANEU, CMP, A1C, LIPID, VIDH, MG, TSH, GFR, B1WB, ZINC #### [address] [address] MCHC 33.8 G/dL Normal 33.0-37.0 [facility] ([place]) Comment on above: Performed By: #### H CV1 #### [address] [address] #### CBC, ADIFF, CK, ANEU, CMP, A1C, LIPID, VIDH, MG, TSH, GFR, B1WB, ZINC #### [address] [address] MCV (RBC) [Entitic vol] 92.9 fL Normal 80.0-94.0 [facility] ([place]) Comment on above: Performed By: #### H CV1 #### [place] [address] #### CBC, ADIFF, CK, ANEU, CMP, A1C, LIPID, VIDH, MG, TSH, GFR, B1WB, ZINC #### [address] [address] Platelet 278 10 3/mcL Normal 130-400 [facility] ([place]) Comment on above: Performed By: #### H CV1 #### [address] [address] #### CBC, ADIFF, CK, ANEU, CMP, A1C, LIPID, VIDH, MG, TSH, GFR, B1WB, ZINC #### [address] [address] Platelet mean volume (Bld) [Entitic vol] 7.2 fL Low 7.4-10.4 [facility] ([place]) Comment on above: Performed By: #### H CV1 #### [place] [address] #### CBC, ADIFF, CK, ANEU, CMP, A1C, LIPID, VIDH, MG, TSH, GFR, B1WB, ZINC #### [address] [address] RBC 4.05 10 6/mcL Low 4.20-5.40 [facility] ([place]) Comment on above: Performed By: #### H CV1 #### [place] [address] #### CBC, ADIFF, CK, ANEU, CMP, A1C, LIPID, VIDH, MG, TSH, GFR, B1WB, ZINC #### [address] [address] WBC 5.3 10 3/mcL Normal 4.6-10.8 [facility] ([place]) Comment on above: Performed By: #### H CV1 #### [place] [address] #### CBC, ADIFF, CK, ANEU, CMP, A1C, LIPID, VIDH, MG, TSH, GFR, B1WB, ZINC #### [address] [address] CMPon 04-26-2022 Albumin Level 4.1 G/dL Normal 3.5-5.0 [facility] ([place]) Comment on above: Performed By: #### H CV1 #### [place] [address] #### CBC, ADIFF, CK, ANEU, CMP, A1C, LIPID, VIDH, MG, TSH, GFR, B1WB, ZINC #### [address] [address] Albumin/Globulin [Mass ratio] 1.3 {ratio} Normal 1.1-2.5 [facility] ([place]) Comment on above: Performed By: #### H CV1 #### [place] [address] #### CBC, ADIFF, CK, ANEU, CMP, A1C, LIPID, VIDH, MG, TSH, GFR, B1WB, ZINC #### [address] [address] ALP [Catalytic activity/Vol] 85 U/L Normal 40-135 [facility] ([place]) Comment on above: Performed By: #### H CV1 #### [place] [address] #### CBC, ADIFF, CK, ANEU, CMP, A1C, LIPID, VIDH, MG, TSH, GFR, B1WB, ZINC #### [address] [address] ALT [Catalytic activity/Vol] 25 U/L Normal 14-59 [facility] ([place]) Comment on above: Performed By: #### H CV1 #### [place] [address] #### CBC, ADIFF, CK, ANEU, CMP, A1C, LIPID, VIDH, MG, TSH, GFR, B1WB, ZINC #### [address] [address] AST [Catalytic activity/Vol] 18 U/L Normal 10-40 [facility] ([place]) Comment on above: Performed By: #### H CV1 #### [place] [address] #### CBC, ADIFF, CK, ANEU, CMP, A1C, LIPID, VIDH, MG, TSH, GFR, B1WB, ZINC #### [address] [address] Bili Total 0.2 mg/dL Normal 0.2-1.0 [facility] ([place]) Comment on above: Result Comment: Use of this assay is not recommended for patients undergoing treatment with eltrombopag due to the potential for falsely elevated results. Performed By: #### H CV1 #### [place] [address] #### CBC, ADIFF, CK, ANEU, CMP, A1C, LIPID, VIDH, MG, TSH, GFR, B1WB, ZINC #### [address] [address] BUN/Creatinine Ratio 10 ratio Normal 7-27 [facility] ([place]) Comment on above: Performed By: #### H CV1 #### [place] [address] #### CBC, ADIFF, CK, ANEU, CMP, A1C, LIPID, VIDH, MG, TSH, GFR, B1WB, ZINC #### [address] [address] Calcium [Mass/Vol] 9.6 mg/dL Normal 8.4-10.2 [facility] ([place]) Comment on above: Performed By: #### H CV1 #### [place] [address] #### CBC, ADIFF, CK, ANEU, CMP, A1C, LIPID, VIDH, MG, TSH, GFR, B1WB, ZINC #### [address] [address] Chloride [Moles/Vol] 105 mmol/L Normal 98-107 [facility] ([place]) Comment on above: Performed By: #### H CV1 #### [place] [address] #### CBC, ADIFF, CK, ANEU, CMP, A1C, LIPID, VIDH, MG, TSH, GFR, B1WB, ZINC #### [address] [address] CO2 [Moles/Vol] 30 mmol/L High 22-29 [facility] ([place]) Comment on above: Performed By: #### H CV1 #### [place] [address] #### CBC, ADIFF, CK, ANEU, CMP, A1C, LIPID, VIDH, MG, TSH, GFR, B1WB, ZINC #### [address] [address] Creatinine [Mass/Vol] 1.00 mg/dL Normal 0.55-1.02 [facility] ([place]) Comment on above: Performed By: #### H CV1 #### [place] [address] #### CBC, ADIFF, CK, ANEU, CMP, A1C, LIPID, VIDH, MG, TSH, GFR, B1WB, ZINC #### [address] [address] Electrolyte Balance 5.0 mEq/L Normal 4.0-15.0 [facility] ([place]) Comment on above: Performed By: #### H CV1 #### [place] [address] #### CBC, ADIFF, CK, ANEU, CMP, A1C, LIPID, VIDH, MG, TSH, GFR, B1WB, ZINC #### [address] [address] Globulin 3.1 G/dL Normal [facility] ([place]) Comment on above: Performed By: #### H CV1 #### [place] [address] #### CBC, ADIFF, CK, ANEU, CMP, A1C, LIPID, VIDH, MG, TSH, GFR, B1WB, ZINC #### [address] [address] Glucose [Mass/Vol] 69 mg/dL Low 70-105 [facility] ([place]) Comment on above: Performed By: #### H CV1 #### [place] [address] #### CBC, ADIFF, CK, ANEU, CMP, A1C, LIPID, VIDH, MG, TSH, GFR, B1WB, ZINC #### [address] [address] Potassium [Moles/Vol] 5.0 mmol/L Normal 3.5-5.1 [facility] ([place]) Comment on above: Performed By: #### H CV1 #### [address] [address] #### CBC, ADIFF, CK, ANEU, CMP, A1C, LIPID, VIDH, MG, TSH, GFR, B1WB, ZINC #### [address] [address] Sodium [Moles/Vol] 140 mmol/L Normal 136-145 [facility] ([place]) Comment on above: Performed By: #### H CV1 #### [address] [address] #### CBC, ADIFF, CK, ANEU, CMP, A1C, LIPID, VIDH, MG, TSH, GFR, B1WB, ZINC #### [address] [address] Total Protein 7.2 G/dL Normal 6.4-8.2 [facility] ([place]) Comment on above: Performed By: #### H CV1 #### [address] [address] #### CBC, ADIFF, CK, ANEU, CMP, A1C, LIPID, VIDH, MG, TSH, GFR, B1WB, ZINC #### [address] [address] Urea nitrogen [Mass/Vol] 10 mg/dL Normal 7-18 [facility] ([place]) Comment on above: Performed By: #### H CV1 #### [address] [address] #### CBC, ADIFF, CK, ANEU, CMP, A1C, LIPID, VIDH, MG, TSH, GFR, B1WB, ZINC #### [address] [address] Tena 04-26-2022 Ferritin [Mass/Vol] 17.0 ng/mL Normal 8.0-252.0 [facility] ([place]) Comment on above: Performed By: #### H CV1 #### [address] [address] #### CBC, ADIFF, CK, ANEU, CMP, A1C, LIPID, VIDH, MG, TSH, GFR, B1WB, ZINC #### [address] [place], [place] [address] FOLon 04-26-2022 Folate 11.20 ng/mL Normal 5.38-24.00 [facility] ([place]) Comment on above: Performed By: #### H CV1 #### [address] [address] #### CBC, ADIFF, CK, ANEU, CMP, A1C, LIPID, VIDH, MG, TSH, GFR, B1WB, ZINC #### [id number] [place], [place] [address] LABORATORYOrdered By: Nir Hackett on 04-26-2022 Albumin [...] 04-26-2022 Cholesterol [Mass/Vol] 172 mg/dL Normal 0-200 [facility] ([place]) Comment on above: Result Comment: Chol esterol Reference Interval: Less than 200 Desirable 200-239 Borderline high risk 240 and above High risk Performed By: #### H CV1 #### [place] [address] #### CBC, ADIFF, CK, ANEU, CMP, A1C, LIPID, VIDH, MG, TSH, GFR, B1WB, ZINC #### [address] [address] Cholesterol in HDL [Mass/Vol] 62 mg/dL High 40-60 [facility] ([place]) Comment on above: Performed By: #### H CV1 #### [place] [address] #### CBC, ADIFF, CK, ANEU, CMP, A1C, LIPID, VIDH, MG, TSH, GFR, B1WB, ZINC #### [address] [address] Cholesterol in LDL [Mass/Vol] 78 mg/dL Normal 0-130 [facility] ([place]) Comment on above: Performed By: #### H CV1 #### [place] [address] #### CBC, ADIFF, CK, ANEU, CMP, A1C, LIPID, VIDH, MG, TSH, GFR, B1WB, ZINC #### [address] [address] Triglyceride [Mass/Vol] 159 mg/dL High 0-150 [facility] ([place]) Comment on above: Result Comment: Trig lyceride Reference Interval: Less than 150 Normal 150-199 Borderline high risk 200-499 High risk 500 or higher Very high risk Performed By: #### H CV1 #### [place] [address] #### CBC, ADIFF, CK, ANEU, CMP, A1C, LIPID, VIDH, MG, TSH, GFR, B1WB, ZINC #### [address] [address] VIDHon 04-26-2022 Vit. D 25-Hydroxy 28.9 ng/mL Normal [facility] ([place]) Comment on above: Result Comment: Inte rpretive Values Based on Total 25(OH) Vitamin D: Deficient <20 ng/mL Insufficient 20 - <30 ng/mL Sufficient 30-100 ng/mL Performed By: #### H CV1 #### [place] [address] #### CBC, ADIFF, CK, ANEU, CMP, A1C, LIPID, VIDH, MG, TSH, GFR, B1WB, ZINC #### [address] [address] .Auto Diffon 04-15-2022 Basophil, Absolute 0.0 10 3/mcL Normal 0.0-0.2 [facility] ([place]) Comment on above: Performed By: #### A HUMBERTO CONTEH #### [address] [address] Basophils/100 WBC (Bld) 0.7 % Normal 0.0-2.5 [facility] ([place]) Comment on above: Performed By: #### HUMBERTO WADE #### [address] [address] Eosinophil, Absolute 0.2 10 3/mcL Normal 0.0-0.4 [facility] ([place]) Comment on above: Performed By: #### A HUMBERTO CONTEH #### [address] [address] Eosinophils/100 WBC (Bld) 3.1 % Normal 0.0-7.0 [facility] ([place]) Comment on above: Performed By: #### HUMBERTO WADE #### [address] [address] Lymphocyte, Absolute 1.9 10 3/mcL Normal 0.8-3.9 [facility] ([place]) Comment on above: Performed By: #### HUMBERTO WADE #### [address] [address] Lymphocytes/100 WBC (Bld) 30.5 % Normal 10.0-50.0 [facility] ([place]) Comment on above: Performed By: #### A HUMBERTO CONTEH #### [address] [address] Monocyte, Absolute 0.5 10 3/mcL Normal 0.2-1.0 [facility] ([place]) Comment on above: Performed By: #### A KRISTAL CONTEHS #### [address] [address] Monocytes/100 WBC (Bld) 8.5 % Normal 1.7-13.0 [facility] ([place]) Comment on above: Performed By: #### A KRISTAL CONTEHS #### [address] [address] Neutrophils/100 WBC (Bld) 57.2 % Normal 37.0-80.0 [facility] ([place]) Comment on above: Performed By: #### A KRISTAL CONTEHS #### [address] [address] .GFRon 04-15-2022 GFR 77 ml/min/1.73sqm Normal [facility] ([place]) Comment on above: Result Comment: GFR Population [...] meters Performed By: #### H CV1 #### [place] [address] #### CBC, ADIFF, CK, ANEU, CMP, A1C, LIPID, VIDH, MG, TSH, GFR, B1WB, ZINC #### [address] [address] GFR Non- 64 ml/min/1.73sqm Normal [facility] ([place]) Comment on above: Result Comment: GFR Population [...] meters Performed By: #### H CV1 #### [place] [address] #### CBC, ADIFF, CK, ANEU, CMP, A1C, LIPID, VIDH, MG, TSH, GFR, B1WB, ZINC #### [address] [address] .NEUABSon 04-15-2022 Neutrophil, Absolute 3.5 10 3/mcL Normal 2.9-6.2 [facility] ([place]) Comment on above: Performed By: #### HUMBERTO WADE #### [address] [address] A1Con 04-15-2022 HbA1c (Bld) [Mass fraction] 5.4 % Normal 4.3-6.4 [facility] ([place]) Comment on above: Performed By: #### H CV1 #### [place] [id number] #### CBC, ADIFF, CK, ANEU, CMP, A1C, LIPID, VIDH, MG, TSH, GFR, B1WB, ZINC #### [address] [address] CBCon 04-15-2022 Erythrocyte distribution width (RBC) [Ratio] 12.8 % Normal 11.5-14.5 [facility] ([place]) Comment on above: Performed By: #### A HUMBERTO CONTEH #### [address] [address] Hematocrit (Bld) [Volume fraction] 38.3 % Normal 37.0-47.0 [facility] ([place] Comment on above: Performed By: #### A HUMBERTO CONTEH #### [address] [address] Hgb 13.1 G/dL Normal 12.0-16.0 [facility] ([place]) Comment on above: Performed By: #### A HUMBERTO CONTEH #### [address] [address] MCH (RBC) [Entitic mass] 31.4 pg High 27.0-31.2 [facility] ([place]) Comment on above: Performed By: #### A HUMBERTO CONTEH #### [address] [address] MCHC 34.1 G/dL Normal 33.0-37.0 [facility] ([place] Comment on above: Performed By: #### A HUMBERTO CONTEH #### [address] [address] MCV (RBC) [Entitic vol] 92.1 fL Normal 80.0-94.0 [facility] ([place] Comment on above: Performed By: #### A HUMBERTO CONTEH #### [address] [address] Platelet 313 10 3/mcL Normal 130-400 [facility] ([place]) Comment on above: Performed By: #### A HUMBERTO CONTEH #### [address] [address] Platelet mean volume (Bld) [Entitic vol] 7.3 fL Low 7.4-10.4 [facility] ([place]) Comment on above: Performed By: #### A HUMBERTO CONTEH #### [address] [address] RBC 4.16 10 6/mcL Low 4.20-5.40 [facility] ([place]) Comment on above: Performed By: #### A HUMBERTO CONTEH #### [address] [address] WBC 6.1 10 3/mcL Normal 4.6-10.8 [facility] ([place]) Comment on above: Performed By: #### A HUMBERTO CONTEH #### [address] [address] CMPon 04-15-2022 Albumin Level 4.2 G/dL Normal 3.5-5.0 [facility] ([place]) Comment on above: Performed By: #### A HUMBERTO CONTEH #### [address] [address] Albumin/Globulin [Mass ratio] 1.4 {ratio} Normal 1.1-2.5 [facility] ([place]) Comment on above: Performed By: #### A KRISTAL CONTEHS #### [address] [address] ALP [Catalytic activity/Vol] 84 U/L Normal 40-135 [facility] ([place]) Comment on above: Performed By: #### A KRISTAL CONTEHS #### [address] [address] ALT [Catalytic activity/Vol] 28 U/L Normal 14-59 [facility] ([place]) Comment on above: Performed By: #### A KRISTAL CONTEHS #### [address] [address] AST [Catalytic activity/Vol] 18 U/L Normal 10-40 [facility] ([place]) Comment on above: Performed By: #### A KRISTAL CONTEHS #### [address] [address] Bili Total 0.3 mg/dL Normal 0.2-1.0 [facility] ([place]) Comment on above: Result Comment: Use of this assay is not recommended for patients undergoing treatment with eltrombopag due to the potential for falsely elevated results. Performed By: #### A WERO TROPHS #### [address] [address] BUN/Creatinine Ratio 17 ratio Normal 7-27 [facility] ([place]) Comment on above: Performed By: #### A WERO TROPHS #### [address] [address] Calcium [Mass/Vol] 9.5 mg/dL Normal 8.4-10.2 [facility] ([place]) Comment on above: Performed By: #### A WERO TROPHS #### [address] [address] Chloride [Moles/Vol] 103 mmol/L Normal 98-107 [facility] ([place]) Comment on above: Performed By: #### A WERO TROPHS #### [address] [address] CO2 [Moles/Vol] 30 mmol/L High 22-29 [facility] ([place]) Comment on above: Performed By: #### A KRISTAL CONTEHS #### [address] [address] Creatinine [Mass/Vol] 0.93 mg/dL Normal 0.55-1.02 [facility] ([place]) Comment on above: Performed By: #### A WERO TROPHS #### [address] [address] Electrolyte Balance 8.0 mEq/L Normal 4.0-15.0 [facility] ([place]) Comment on above: Performed By: #### A KRISTAL CONTEHS #### [address] [address] Globulin 3.1 G/dL Normal [facility] ([place]) Comment on above: Performed By: #### A WERO TROPHS #### [address] [address] Glucose [Mass/Vol] 84 mg/dL Normal 70-105 [facility] ([place]) Comment on above: Performed By: #### A KRISTAL CONTEHS #### [place] [address] [place], [place] [address] Potassium [Moles/Vol] 4.9 mmol/L Normal 3.5-5.1 [facility] ([place]) Comment on above: Performed By: #### A MY, TROPHS #### [place] [address] [place], [place] [address] Sodium [Moles/Vol] 141 mmol/L Normal 136-145 [facility] ([place]) Comment on above: Performed By: #### A MY, TROPHS #### [address] [address] Total Protein 7.3 G/dL Normal 6.4-8.2 [facility] ([place]) Comment on above: Performed By: #### A MY, TROPHS #### [address] [address] Urea nitrogen [Mass/Vol] 16 mg/dL Normal 7-18 [facility] ([place]) Comment on above: Performed By: #### A MY, TROPHS #### [address] [address] LABORATORYOrdered By: Paris Hernandez on 04-15-2022 Albumin [...] MAMMOGRAM DIAGNOSTIC BILATERAL W/JUMA ORIGINAL FROM: [facility] [place] [address] [place], [place] [address] PROCEDURE FOR: AMANDA GRUBBS [address] [place] [address] Home: PID#: [id number] Exam#: [id number] : 1970 Age: 51 TO: FRANKY [place] [address] Fax: NO FAX EXAMINATION: DIAGNOSTIC BILATERAL MAMMOGRAM [...] FRANKY PEARSON CLINICAL: ASYMMETRIC DENSITY RIGHT BREAST. Rn Nicu: JENNIFER MARTINEZ RT(R) (M) letter sent: Abnormal-Needs additional work up BI-RADS 0 Mammogram BI-RADS: 0 Indeterminate Normal [facility] ([place]) US BREAST RIGHT LIMITEDon US BREAST RIGHT LIMITED ORIGINAL FROM: [address] [address] PROCEDURE FOR: AMANDA GRUBBS [address] [place] [address] Home: PID#: [id number] Exam#: [id number] : 1970 Age: 51 TO: FRANKY PEARSON DO [address] [place] [address] Fax: NO FAX EXAMINATION: ULTRASOUND OF THE [...] Provider: FRANKY PEARSON CLINICAL: 6 MONTHS FOLLOW-UP. Rn Nicu: MANUEL CHIRINOS RT,[facility] letter sent: Probably Benign BI-RADS 3 Ultrasound BI-RADS: 3 Probably benign Normal [facility] ([place]) CT THORAX W/O CONTRASTon CT THORAX W/O [...] upper lobe on image 35 is unchanged. 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 A access representative nodule along the right minor fissure [...] 12/02/2021 3:00:41 PM Ordering Provider: FRANKY PEARSON [facility] ([place]) LABORATORYOrdered By: Nir Hackett on 05-22-2021 ADMITTED [...] CORONAVIRUS 2019,PCR NOT DETECTED Normal Not Detected [facility] Comment on above: Result Comment: This assay is designed to detect the ORF1ab and/or S genes of SARS-CoV-2 via nucleic acid amplification. A Not Detected result does not preclude 2019-nCoV infection since the adequacy of sample collection and/or low viral burden may result in presence of viral nucleic acids below the clinical sensitivity of this test method. Fact sheet for providers: www.fda.gov/media/387005/download Fact sheet for patients: www.fda.gov/media/217902/download This test has received FDA Emergency Use Authorization (EUA) and has been verified by [facility] ([facility]). This test is only authorized for the duration of time that circumstances exist to justify the authorization of the emergency use of in vitro diagnostic tests for the detection of SARS-CoV-2 virus and/or diagnosis of COVID-19 infection under section 564(b)(1) of the Act, 21 U.S.C. 360bbb-3(b)(1), unless the authorization is terminated or revoked sooner. [facility] is certified under CLIA-88 as qualified to perform high complexity testing. Testing is performed in the [facility] laboratories located at [address] [place] [address]. Performed By: #### C OV19 #### [address] [place] [address] Basic Metabolic Panelon - Anion gap [Moles/Vol] 8 mmol/L Normal 8-15 [facility] Comment on above: Performed By: #### B MP #### [facility] [address] [place] [address] Calcium [Mass/Vol] 9.8 mg/dL Normal 8.6-10.6 [facility] Comment on above: Performed By: #### B MP #### [facility] [address] [place] [address] Chloride [Moles/Vol] 106 mmol/L Normal 98-107 [facility] Comment on above: Performed By: #### B MP #### [facility] [address] [place] [address] CO2 [Moles/Vol] 25 mmol/L Normal 22-29 [facility] Comment on above: Performed By: #### B MP #### [facility] [address] [place] [address] Creatinine [Mass/Vol] 0.7 mg/dL Normal 0.5-1.2 [facility] Comment on above: Performed By: #### B MP #### [facility] [address] [place] [address] eGFR -Amer >=60 Normal >=60 [facility] Comment on above: Performed By: #### B MP #### [facility] [address] [place] [address] GFR/1.73 sq M predicted among non-blacks MDRD (S/P/Bld) [Vol rate/Area] mL/min/{1.73_m2} Normal >=60 [facility] Comment on above: Performed By: #### B MP #### [facility] [address] [place] [address] Glucose [Mass/Vol] 75 mg/dL Normal 74-109 [facility] Comment on above: Performed By: #### B MP #### [facility] [address] [place] [address] Potassium [Moles/Vol] 4.7 mmol/L Normal 3.4-5.1 [facility] Comment on above: Performed By: #### B MP #### [facility] [address] [place] [address] Sodium [Moles/Vol] 139 mmol/L Normal 136-145 [facility] Comment on above: Performed By: #### B MP #### [facility] [address] [place] [address] Urea nitrogen [Mass/Vol] 11 mg/dL Normal 6-23 [facility] Comment on above: Performed By: #### B MP #### [facility] [address] [place] [address] CBC with Diffon 02-02-2020 Basophils (Bld) [#/Vol] 0.0 x(10)3/cumm Normal 0.0-0.1 [facility] Comment on above: Performed By: #### C BCDIFF #### [facility] [address] [place] [address] Basophils/100 WBC (Bld) 0.6 % Normal 0.0-1.0 [facility] Comment on above: Performed By: #### C BCDIFF #### [facility] [address] [place] [address] Eosinophils (Bld) [#/Vol] 0.1 x(10)3/cumm Normal 0.0-0.4 [facility] Comment on above: Performed By: #### C BCDIFF #### [facility] [address] [place] [address] Eosinophils/100 WBC (Bld) 1.9 % Normal 0.0-6.1 [facility] Comment on above: Performed By: #### C BCDIFF #### [facility] [address] [place] [address] Erythrocyte distribution width (RBC) [Ratio] 13.0 % Normal 11.1-15.3 [facility] Comment on above: Performed By: #### C BCDIFF #### [facility] [address] [place] [address] Hematocrit (Bld) [Volume fraction] 39.1 % Normal 34.6-45.0 [facility] Comment on above: Performed By: #### C BCDIFF #### [facility] [address] [place] [address] Hemoglobin (Bld) [Mass/Vol] 13.4 g/dL Normal 11.5-15.5 [facility] Comment on above: Performed By: #### C BCDIFF #### [facility] [address] [place] [address] Lymphocytes (Bld) [#/Vol] 1.6 x(10)3/cumm Normal 0.8-2.9 [facility] Comment on above: Performed By: #### C BCDIFF #### [facility] [address] [place] [address] Lymphocytes/100 WBC (Bld) 34.2 % Normal 12.2-42.6 [facility] Comment on above: Performed By: #### C BCDIFF #### [facility] [address] [place] [address] MCH (RBC) [Entitic mass] 32.7 pg Normal 27.2-33.6 [facility] Comment on above: Performed By: #### C BCDIFF #### [facility] [address] [place] [address] MCHC (RBC) [Mass/Vol] 34.3 g/dL Normal 32.9-35.3 [facility] Comment on above: Performed By: #### C BCDIFF #### [facility] [address] [place] [address] MCV (RBC) [Entitic vol] 95.5 fL Normal 81.3-96.7 [facility] Comment on above: Performed By: #### C BCDIFF #### [facility] [address] [place] [address] Monocytes (Bld) [#/Vol] 0.4 x(10)3/cumm Normal 0.2-0.8 [facility] Comment on above: Performed By: #### C BCDIFF #### [facility] [address] [place] [address] Monocytes/100 WBC (Bld) 8.4 % Normal 3.3-11.6 [facility] Comment on above: Performed By: #### C BCDIFF #### [facility] [address] [place] [address] Neutrophils (Bld) [#/Vol] 2.6 x(10)3/cumm Normal 1.3-7.4 [facility] Comment on above: Performed By: #### C BCDIFF #### [facility] [address] [place] [address] Neutrophils/100 WBC (Bld) 54.9 % Normal 44.9-78.8 [facility] Comment on above: Performed By: #### C BCDIFF #### [facility] [address] [place] [address] Platelet mean volume (Bld) [Entitic vol] 8.2 fL Normal 6.4-10.0 [facility] Comment on above: Performed By: #### C BCDIFF #### [facility] [address] [place] [address] Platelets (Bld) [#/Vol] 245 x(10)3/cumm Normal 138-367 [facility] Comment on above: Performed By: #### C BCDIFF #### [facility] [address] [place] [address] Plt Morph Normal [facility] Comment on above: Performed By: #### C BCDIFF #### [facility] [address] [place] [address] RBC (Bld) [#/Vol] 4.09 X(10)6/cumm Normal 3.90-5.10 [facility] Comment on above: Performed By: #### C BCDIFF #### [facility] [address] [place], [place] [address] RBC Morph cont Normal [facility] Comment on above: Performed By: #### C BCDIFF #### [facility] [address] [place] [address] RBC morphology finding Nom (Bld) Normal [facility] Comment on above: Performed By: #### C BCDIFF #### [facility] [address] [place] [address] WBC (Bld) [#/Vol] 4.7 x(10)3/cumm Normal 3.6-10.3 [facility] Comment on above: Performed By: #### C BCDIFF #### [facility] [address] [place] [address] WBC Morph Normal [facility] Comment on above: Performed By: #### C BCDIFF #### [facility] [address] [place] [address] CORONAVIRUS 2019 BY PCRon Lab Specimen Source Nasal, Nasopharyngeal Normal [facility] Comment on above: Performed By: #### C OV19 #### [facility] [address] [place] [address] COVID-19 by PCR ()on 02-01 Coronavirus 2019 PCR Not Detected Normal Not Detected [facility] Comment on above: Order Comment: Nasal swab in Saline, Jose M opharyngeal or Oropharyngeal in viral transport media or saline Performed By: #### C OVUH #### [place] [address] Performing Lab Testing performed by : [facility] [address] [place] [address] CLIA # [id number] [facility] Comment on above: Order Comment: Nasal swab in Saline, Jose M opharyngeal or Oropharyngeal in viral transport media or saline Performed By: #### C OVUH #### [place] [address] Specimen source Nom (Unsp spec) Nasal, [employer] [facility] Comment on above: Order Comment: Nasal swab in Saline, Jose M opharyngeal or Oropharyngeal in viral transport media or saline Performed By: #### C OVUH #### [place] [address] CR Finger(s) Min 2 Views [place] ateralon 01-02-2019 CR Finger(s) Min 2 Views Bilateral Patient Name: AMANDA GRUBBS Diagnostic Radiology Exam Date/Time 01/02/2019 08:01:00 EDT Exam CR Finger(s) Min 2 Views Ordering Physician MD ROLAN, ANNIE Cooley Accession Number [id number] CPT4 Codes 05765 () Reason For Exam PAIN Report Right finger three views HISTORY: Pain Three views of the fifth digit are submitted for interpretation. No fracture or dislocation. No significant degenerative changes. IMPRESSION: Normal examination. Report Dictated on Final Dictating Physician: MD CARRILLO MALAY Signed Date and Time: 01/02/2019 11:20 am Signed by: MD CARRILLO MALAY Transcribed Date and Time: 01/02/2019 11:21 Normal [facility] CR Finger(s) Min 2 Views [place] 01-02-2019 CR Finger(s) Min 2 Views Right Patient Name: AMANDA GRUBBS Diagnostic Radiology Exam Date/Time 01/02/2019 08:01:18 EDT Exam CR Finger(s) Min 2 Views Right Ordering Physician MD ROLAN, ANNIE Cooley Accession Number [id number] Reason For Exam 5th digit pain Report Right finger three views HISTORY: Pain Three views of the fifth digit are submitted for interpretation. No fracture or dislocation. No significant degenerative changes. IMPRESSION: Normal examination. Report Dictated on Final Dictating Physician: MD CARRILLO MALAY Signed Date and Time: 01/02/2019 11:20 am Signed by: MD CARRILLO MALAY Transcribed Date and Time: 01/21/2019 8:27 Normal [facility] Basic Metabolic Panelon 10-3 Calcium mass conc 8.4 mg/dL Normal 8.4-10.4 [facility] Comment on above: Performed By: #### H A1C2, HEMOG, ALB3, BMP3 ####[facility] [place] [address] Anion gap 3 molar conc 7 Normal [facility] Comment on above: Performed By: #### H A1C2, HEMOG, ALB3, BMP3 ####[place] [address] [place] [address] CO2 molar conc 23 mmol/L Normal 22-30 [facility] Comment on above: Performed By: #### H A1C2, HEMOG, ALB3, BMP3 ####[facility] [place] [address] Creatinine mass conc 0.86 mg/dL Normal 0.52-1.25 [facility] Comment on above: Performed By: #### H A1C2, HEMOG, ALB3, BMP3 ####[facility] [place] [address] GFR/1.73 sq M predicted among blacks MDRD vol rate/area (S/P/Bld) mL/min/{1.73_m2} Normal >60 [facility] Comment on above: Performed By: #### H A1C2, HEMOG, ALB3, BMP3 ####[facility] [id number] [place], [place] GFR/1.73 sq M predicted among non-blacks MDRD vol rate/area (S/P/Bld) mL/min/{1.73_m2} Normal >60 [facility] Comment on above: Result Comment: Sour ce- MDRD equation with creatinine calibration to IDMS(NKDEP) eGFR not recommended for drug dose adjustment Performed By: #### H A1C2, HEMOG, ALB3, BMP3 ####[facility] [address] [place], [place] Glucose mass conc 107 mg/dL High 70-100 [facility] Comment on above: Performed By: #### H A1C2, HEMOG, ALB3, BMP3 ####[facility] [address] [place], [place] Urea nitrogen mass conc 11 mg/dL Normal 7-20 [facility] Comment on above: Performed By: #### H A1C2, HEMOG, ALB3, BMP3 ####[facility] [address] [place], [place] Chloride molar conc 108 mmol/L High 98-107 [facility] Comment on above: Performed By: #### H A1C2, HEMOG, ALB3, BMP3 ####[facility] [address] [place], [place] Potassium molar conc 4.1 mmol/L Normal 3.5-5.1 [facility] Comment on above: Performed By: #### H A1C2, HEMOG, ALB3, BMP3 ####[facility] [address] [place], [place] Sodium molar conc 138 mmol/L Normal 137-145 [facility] Comment on above: Performed By: #### H A1C2, HEMOG, ALB3, BMP3 ####[facility] [id number] [place], [place] Hemogram w/ Autodiffon 04-10 Abs Baso Cnt 0.0 10*3/uL Normal 0.0-0.2 [facility] Comment on above: Performed By: #### H A1C2, HEMOG, ALB3, BMP3 ####[address] Abs Neutrophile Cnt 7.7 10*3/uL High 1.8-7.0 [facility] Comment on above: Performed By: #### H A1C2, HEMOG, ALB3, BMP3 ####[address] Basophils/100 WBC Auto (Bld) 0.2 % Normal 0.0-2.0 [facility] Comment on above: Performed By: #### H A1C2, HEMOG, ALB3, BMP3 ####[address] Eosinophils Auto #/vol (Bld) 0.0 10*3/uL Normal 0.0-0.5 [facility] Comment on above: Performed By: #### H A1C2, HEMOG, ALB3, BMP3 ####[address] Eosinophils/100 WBC Auto (Bld) 0.1 % Low 1.0-6.0 [facility] Comment on above: Performed By: #### H A1C2, HEMOG, ALB3, BMP3 ####[address] Erythrocyte distribution width Auto Ratio (RBC) 13.4 % Normal 11.5-14.5 [facility] Comment on above: Performed By: #### H A1C2, HEMOG, ALB3, BMP3 ####[address] Granulocytes/100 WBC (Bld) 74.9 % Normal 40.0-80.0 [facility] Comment on above: Performed By: #### H A1C2, HEMOG, ALB3, BMP3 ####[address] Hematocrit Auto Volume Fraction (Bld) 32.0 % Low 35.0-47.0 [facility] Comment on above: Performed By: #### H A1C2, HEMOG, ALB3, BMP3 ####[address] Hemoglobin mass conc (Bld) 10.9 g/dL Low 11.7-16.0 [facility] Comment on above: Performed By: #### H A1C2, HEMOG, ALB3, BMP3 ####[address] Lymphocytes Auto #/vol (Bld) 2.0 10*3/uL Normal 1.0-4.3 [facility] Comment on above: Performed By: #### H A1C2, HEMOG, ALB3, BMP3 ####[address] Lymphocytes/100 WBC Auto (Bld) 19.7 % Low 20.0-40.0 [facility] Comment on above: Performed By: #### H A1C2, HEMOG, ALB3, BMP3 ####[address] MCH Auto Entitic mass (RBC) 32.1 pg Normal 26.0-34.0 [facility] Comment on above: Performed By: #### H A1C2, HEMOG, ALB3, BMP3 ####[address] MCHC Auto mass conc (RBC) 34.2 % Normal 32.0-36.0 [facility] Comment on above: Performed By: #### H A1C2, HEMOG, ALB3, BMP3 ####[address] MCV Auto Entitic volume (RBC) 94.0 fL Normal 79.0-98.0 [facility] Comment on above: Performed By: #### H A1C2, HEMOG, ALB3, BMP3 ####[address] Monocytes Auto #/vol (Bld) 0.5 10*3/uL Normal 0.0-0.8 [facility] Comment on above: Performed By: #### H A1C2, HEMOG, ALB3, BMP3 ####[place] [id number] [place], [place] Monocytes/100 WBC Auto (Bld) 5.1 % Normal 2.0-10.0 [facility] Comment on above: Performed By: #### H A1C2, HEMOG, ALB3, BMP3 ####[address] Platelet mean volume Auto Entitic volume (Bld) 7.9 fL Normal 7.4-10.4 [facility] Comment on above: Performed By: #### H A1C2, HEMOG, ALB3, BMP3 ####[address] Platelets Auto #/vol (Bld) 248 10*3/uL Normal 140-440 [facility] Comment on above: Performed By: #### H A1C2, HEMOG, ALB3, BMP3 ####[address] RBC Auto #/vol (Bld) 3.40 10*6/uL Low 3.80-5.20 [facility] Comment on above: Performed By: #### H A1C2, HEMOG, ALB3, BMP3 ####[address] WBC Auto #/vol (Bld) 10.3 10*3/uL Normal 3.6-10.7 [facility] Comment on above: Performed By: #### H A1C2, HEMOG, ALB3, BMP3 ####[address] Magnesiumon 04-10-2018 Magnesium mass conc 2.5 mg/dL High 1.6-2.3 [facility] Comment on above: Performed By: #### H A1C2, HEMOG, ALB3, BMP3 ####[address] Phosphoruson 04-10-2018 Phosphate mass conc 3.3 mg/dL Normal 2.5-4.5 [facility] [facility] Comment on above: Performed By: #### H A1C2, HEMOG, ALB3, BMP3 ####[address] [place] [address] Basic Metabolic Panelon 03-13 Anion gap 3 molar conc 14 Normal [facility] Comment on above: Performed By: #### H A1C2, HEMOG, ALB3, BMP3 ####[address] [place] [address] Calcium mass conc 8.6 mg/dL Normal 8.4-10.4 [facility] Comment on above: Performed By: #### H A1C2, HEMOG, ALB3, BMP3 ####[address] [place] [address] CO2 molar conc 20 mmol/L Low 22-30 [facility] Comment on above: Performed By: #### H A1C2, HEMOG, ALB3, BMP3 ####[address] [place] [address] Glucose mass conc 210 mg/dL High 70-100 [facility] Comment on above: Performed By: #### H A1C2, HEMOG, ALB3, BMP3 ####[address] [place] [address] Urea nitrogen mass conc 14 mg/dL Normal 7-20 [facility] Comment on above: Performed By: #### H A1C2, HEMOG, ALB3, BMP3 ####[address] [place] [address] Creatinine mass conc 0.85 mg/dL Normal 0.52-1.25 [facility] Comment on above: Performed By: #### H A1C2, HEMOG, ALB3, BMP3 ####[address] [place] [address] GFR/1.73 sq M predicted among blacks MDRD vol rate/area (S/P/Bld) mL/min/{1.73_m2} Normal >60 [facility] Comment on above: Performed By: #### H A1C2, HEMOG, ALB3, BMP3 ####[address] [place], [place] GFR/1.73 sq M predicted among non-blacks MDRD vol rate/area (S/P/Bld) mL/min/{1.73_m2} Normal >60 [facility] Comment on above: Result Comment: Sour ce- MDRD equation with creatinine calibration to IDMS(NKDEP) eGFR not recommended for drug dose adjustment Performed By: #### H A1C2, HEMOG, ALB3, BMP3 ####[address] Potassium molar conc 4.1 mmol/L Normal 3.5-5.1 [facility] Comment on above: Performed By: #### H A1C2, HEMOG, ALB3, BMP3 ####[address] Sodium molar conc 138 mmol/L Normal 137-145 [facility] Comment on above: Performed By: #### H A1C2, HEMOG, ALB3, BMP3 ####[address] Chloride molar conc 104 mmol/L Normal 98-107 [facility] Comment on above: Performed By: #### H A1C2, HEMOG, ALB3, BMP3 ####[address] Hemogram w/ Autodiffon 04-09 Abs Baso Cnt 0.0 10*3/uL Normal 0.0-0.2 [facility] Comment on above: Performed By: #### H A1C2, HEMOG, ALB3, BMP3 ####[address] Abs Neutrophile Cnt 12.0 10*3/uL High 1.8-7.0 [facility] Comment on above: Performed By: #### H A1C2, HEMOG, ALB3, BMP3 ####[address] Basophils/100 WBC Auto (Bld) 0.2 % Normal 0.0-2.0 [facility] Comment on above: Performed By: #### H A1C2, HEMOG, ALB3, BMP3 ####[address] Eosinophils Auto #/vol (Bld) 0.0 10*3/uL Normal 0.0-0.5 [facility] Comment on above: Performed By: #### H A1C2, HEMOG, ALB3, BMP3 ####[address] Eosinophils/100 WBC Auto (Bld) 0.0 % Low 1.0-6.0 [facility] Comment on above: Performed By: #### H A1C2, HEMOG, ALB3, BMP3 ####[address] Erythrocyte distribution width Auto Ratio (RBC) 13.3 % Normal 11.5-14.5 [facility] Comment on above: Performed By: #### H A1C2, HEMOG, ALB3, BMP3 ####[address] Granulocytes/100 WBC (Bld) 91.6 % High 40.0-80.0 [facility] Comment on above: Performed By: #### H A1C2, HEMOG, ALB3, BMP3 ####[address] Hematocrit Auto Volume Fraction (Bld) 38.4 % Normal 35.0-47.0 [facility] Comment on above: Performed By: #### H A1C2, HEMOG, ALB3, BMP3 ####[address] Hemoglobin mass conc (Bld) 13.0 g/dL Normal 11.7-16.0 [facility] Comment on above: Performed By: #### H A1C2, HEMOG, ALB3, BMP3 ####[address] Lymphocytes Auto #/vol (Bld) 0.6 10*3/uL Low 1.0-4.3 [facility] Comment on above: Performed By: #### H A1C2, HEMOG, ALB3, BMP3 ####[address] Lymphocytes/100 WBC Auto (Bld) 4.8 % Low 20.0-40.0 [facility] Comment on above: Performed By: #### H A1C2, HEMOG, ALB3, BMP3 ####[address] MCH Auto Entitic mass (RBC) 31.8 pg Normal 26.0-34.0 [facility] Comment on above: Performed By: #### H A1C2, HEMOG, ALB3, BMP3 ####[address] MCHC Auto mass conc (RBC) 33.9 % Normal 32.0-36.0 [facility] Comment on above: Performed By: #### H A1C2, HEMOG, ALB3, BMP3 ####[address] MCV Auto Entitic volume (RBC) 93.7 fL Normal 79.0-98.0 [facility] Comment on above: Performed By: #### H A1C2, HEMOG, ALB3, BMP3 ####[address] Monocytes Auto #/vol (Bld) 0.5 10*3/uL Normal 0.0-0.8 [facility] Comment on above: Performed By: #### H A1C2, HEMOG, ALB3, BMP3 ####[address] Monocytes/100 WBC Auto (Bld) 3.4 % Normal 2.0-10.0 [facility] Comment on above: Performed By: #### H A1C2, HEMOG, ALB3, BMP3 ####[address] Platelet mean volume Auto Entitic volume (Bld) 8.1 fL Normal 7.4-10.4 [facility] Comment on above: Performed By: #### H A1C2, HEMOG, ALB3, BMP3 ####[facility] [id number] [place], [place] Platelets Auto #/vol (Bld) 299 10*3/uL Normal 140-440 [facility] Comment on above: Performed By: #### H A1C2, HEMOG, ALB3, BMP3 ####[facility] [id number] [place], [place] RBC Auto #/vol (Bld) 4.09 10*6/uL Normal 3.80-5.20 [facility] Comment on above: Performed By: #### H A1C2, HEMOG, ALB3, BMP3 ####[facility] [id number] [place], [place] WBC Auto #/vol (Bld) 13.1 10*3/uL High 3.6-10.7 [facility] Comment on above: Performed By: #### H A1C2, HEMOG, ALB3, BMP3 ####[facility] [id number] [place], [place] Magnesiumon 04-09-2018 Magnesium mass conc 2.2 mg/dL Normal 1.6-2.3 [facility] Comment on above: Performed By: #### H A1C2, HEMOG, ALB3, BMP3 ####[facility] [id number] [place], [place] Phosphoruson 04-09-2018 Phosphate mass conc 2.3 mg/dL Low 2.5-4.5 [facility] Comment on above: Performed By: #### H A1C2, HEMOG, ALB3, BMP3 ####[facility] [id number] [place], [place] RF UGI w/o KUB w/ or w/o Del ay Flmon 04-09-2018 RF UGI w/o KUB w/ or w/o Delay Fl Patient Name: AMANDA GRUBBS Fluoroscopy Exam Date/Time 04/09/2018 08:17:29 EDT Exam RF UGI w/o KUB and w/ or w/o Delay Flm Ordering Physician MD TRUONG NICHOLAS Accession Number [id number] CTP4 Codes 49880 () Reason For Exam bariatric surgery. gastrograffin. [...] Transcribed Date and Time: 04/09/2018 8:37 Normal [facility] Basic Metabolic Panelon 10-2 Calcium mass conc 8.8 mg/dL Normal 8.4-10.4 [facility] Comment on above: Performed By: #### H EMDF, MG3, BMP3, PHOS3, ICA ####[facility] [employer] [place] [address] Anion gap 3 molar conc 12 Normal [facility] Comment on above: Performed By: #### H EMDF, MG3, BMP3, PHOS3, ICA ####[facility] [id number] [place] [address] CO2 molar conc 23 mmol/L Normal 22-30 [facility] Comment on above: Performed By: #### H EMDF, MG3, BMP3, PHOS3, ICA ####[facility] [id number] [place], [place] Glucose mass conc 201 mg/dL High 70-100 [facility] Comment on above: Performed By: #### H EMDF, MG3, BMP3, PHOS3, ICA ####[facility] [id number] [place] Urea nitrogen mass conc 13 mg/dL Normal 7-20 [facility] Comment on above: Performed By: #### H EMDF, MG3, BMP3, PHOS3, ICA ####[address] [place], [place] Creatinine mass conc 0.96 mg/dL Normal 0.52-1.25 [facility] Comment on above: Performed By: #### H EMDF, MG3, BMP3, PHOS3, ICA ####[facility] [id number] [place], [place] GFR/1.73 sq M predicted among blacks MDRD vol rate/area (S/P/Bld) mL/min/{1.73_m2} Normal >60 [facility] Comment on above: Performed By: #### H EMDF, MG3, BMP3, PHOS3, ICA ####[address] [place] GFR/1.73 sq M predicted among non-blacks MDRD vol rate/area (S/P/Bld) mL/min/{1.73_m2} Normal >60 [facility] Comment on above: Result Comment: Sour ce- MDRD equation with creatinine calibration to IDMS(NKDEP) eGFR not recommended for drug dose adjustment Performed By: #### H EMDF, MG3, BMP3, PHOS3, ICA ####[address] [place], [place] Chloride molar conc 102 mmol/L Normal 98-107 [facility] Comment on above: Performed By: #### H EMDF, MG3, BMP3, PHOS3, ICA ####[address] Potassium molar conc 3.9 mmol/L Normal 3.5-5.1 [facility] Comment on above: Performed By: #### H EMDF, MG3, BMP3, PHOS3, ICA ####[address] Sodium molar conc 138 mmol/L Normal 137-145 [facility] Comment on above: Performed By: #### H EMDF, MG3, BMP3, PHOS3, ICA ####[address] Calcium,Ionizedon 04-08-2018 Ionized Ca,Measured 4.30 mg/dL Normal 4.30-5.20 [facility] Comment on above: Performed By: #### H A1C2, HEMOG, ALB3, BMP3 ####[address] pH, Ionized Calcium 7.29 Low 7.31-7.46 [facility] Comment on above: Performed By: #### H A1C2, HEMOG, ALB3, BMP3 ####[address] Hemogram w/ Autodiffon 04-08 Abs Baso Cnt 0.0 10*3/uL Normal 0.0-0.2 [facility] Comment on above: Performed By: #### H EMDF, MG3, BMP3, PHOS3, ICA ####[address] Abs Neutrophile Cnt 10.7 10*3/uL High 1.8-7.0 [facility] Comment on above: Performed By: #### H EMDF, MG3, BMP3, PHOS3, ICA ####[address] Basophils/100 WBC Auto (Bld) 0.1 % Normal 0.0-2.0 [facility] Comment on above: Performed By: #### H EMDF, MG3, BMP3, PHOS3, ICA ####[address] [place], [place] Eosinophils Auto #/vol (Bld) 0.0 10*3/uL Normal 0.0-0.5 [facility] Comment on above: Performed By: #### H EMDF, MG3, BMP3, PHOS3, ICA ####[address] Eosinophils/100 WBC Auto (Bld) 0.1 % Low 1.0-6.0 [facility] Comment on above: Performed By: #### H EMDF, MG3, BMP3, PHOS3, ICA ####[address] Erythrocyte distribution width Auto Ratio (RBC) 13.3 % Normal 11.5-14.5 [facility] Comment on above: Performed By: #### H EMDF, MG3, BMP3, PHOS3, ICA ####[address] Granulocytes/100 WBC (Bld) 88.5 % High 40.0-80.0 [facility] Comment on above: Performed By: #### H EMDF, MG3, BMP3, PHOS3, ICA ####[address] Hematocrit Auto Volume Fraction (Bld) 41.9 % Normal 35.0-47.0 [facility] Comment on above: Performed By: #### H EMDF, MG3, BMP3, PHOS3, ICA ####[address] Hemoglobin mass conc (Bld) 14.0 g/dL Normal 11.7-16.0 [facility] Comment on above: Performed By: #### H EMDF, MG3, BMP3, PHOS3, ICA ####[address] Lymphocytes Auto #/vol (Bld) 1.1 10*3/uL Normal 1.0-4.3 [facility] Comment on above: Performed By: #### H EMDF, MG3, BMP3, PHOS3, ICA ####[address] [place], [place] Lymphocytes/100 WBC Auto (Bld) 9.2 % Low 20.0-40.0 [facility] Comment on above: Performed By: #### H EMDF, MG3, BMP3, PHOS3, ICA ####[address] MCH Auto Entitic mass (RBC) 31.5 pg Normal 26.0-34.0 [facility] Comment on above: Performed By: #### H EMDF, MG3, BMP3, PHOS3, ICA ####[address] MCHC Auto mass conc (RBC) 33.4 % Normal 32.0-36.0 [facility] Comment on above: Performed By: #### H EMDF, MG3, BMP3, PHOS3, ICA ####[address] MCV Auto Entitic volume (RBC) 94.2 fL Normal 79.0-98.0 [facility] Comment on above: Performed By: #### H EMDF, MG3, BMP3, PHOS3, ICA ####[address] Monocytes Auto #/vol (Bld) 0.3 10*3/uL Normal 0.0-0.8 [facility] Comment on above: Performed By: #### H EMDF, MG3, BMP3, PHOS3, ICA ####[address] Monocytes/100 WBC Auto (Bld) 2.1 % Normal 2.0-10.0 [facility] Comment on above: Performed By: #### H EMDF, MG3, BMP3, PHOS3, ICA ####[address] Platelet mean volume Auto Entitic volume (Bld) 7.8 fL Normal 7.4-10.4 [facility] Comment on above: Performed By: #### H EMDF, MG3, BMP3, PHOS3, ICA ####[facility] [id number] [place], [place] Platelets Auto #/vol (Bld) 293 10*3/uL Normal 140-440 [facility] Comment on above: Performed By: #### H EMDF, MG3, BMP3, PHOS3, ICA ####[facility] [address] [place], [place] RBC Auto #/vol (Bld) 4.45 10*6/uL Normal 3.80-5.20 [facility] Comment on above: Performed By: #### H EMDF, MG3, BMP3, PHOS3, ICA ####[facility] [id number] [place], [place] WBC Auto #/vol (Bld) 12.1 10*3/uL High 3.6-10.7 [facility] Comment on above: Performed By: #### H EMDF, MG3, BMP3, PHOS3, ICA ####[facility] [id number] [place], [place] Magnesiumon 04-08-2018 Magnesium mass conc 2.5 mg/dL High 1.6-2.3 [facility] Comment on above: Performed By: #### H EMDF, MG3, BMP3, PHOS3, ICA ####[facility] [id number] [place], [place] Phosphoruson 04-08-2018 Phosphate mass conc 4.5 mg/dL Normal 2.5-4.5 [facility] Comment on above: Performed By: #### H EMDF, MG3, BMP3, PHOS3, ICA ####[facility] [id number] [place], [place] Surgical Pathologyon 018 Surgical Pathology [id number] [facility] PATHOLOGY AND LABORATORY MEDICINE [address] [place] [address] FINAL SURGICAL PATHOLOGY REPORT NAM E: AMANDA GRUBBS .O.B.: 1970 47 Y F BILLING NO.: [id number] PROCEDURE 04/08/2018 DATE:SURGEON: ROLAN [...] theirperformance characteristics determined by the clinical laboratories [facility]. They have not been cleared by [...] false negativity on decalcified specimens.Professional Performing Location: [address] [place] [address]. DEPARTMENT OF PATHOLOGY AND LABORATORY MEDICINE [place] [address] Normal [facility] Basic Metabolic Panelon 10-2 Anion gap 3 molar conc 10 Normal [facility] Comment on above: Performed By: #### B MP3 ####[address] [place] [address] Calcium mass conc 10.0 mg/dL Normal 8.4-10.4 [facility] Comment on above: Performed By: #### B MP3 ####[address] [place] [address] CO2 molar conc 26 mmol/L Normal 22-30 [facility] Comment on above: Performed By: #### B MP3 ####[address] [address] Glucose mass conc 89 mg/dL Normal 70-100 [facility] Comment on above: Performed By: #### B MP3 ####[address] [place] [address] Urea nitrogen mass conc 18 mg/dL Normal 7-20 [facility] Comment on above: Performed By: #### B MP3 ####[address] [place] [address] Creatinine mass conc 0.82 mg/dL Normal 0.52-1.25 [facility] Comment on above: Performed By: #### B MP3 ####[address] [place] [address] GFR/1.73 sq M predicted among blacks MDRD vol rate/area (S/P/Bld) mL/min/{1.73_m2} Normal >60 [facility] Comment on above: Performed By: #### B MP3 ####[address] [place] [address] GFR/1.73 sq M predicted among non-blacks MDRD vol rate/area (S/P/Bld) mL/min/{1.73_m2} Normal >60 [facility] Comment on above: Result Comment: Sour ce- MDRD equation with creatinine calibration to IDMS(NKDEP) eGFR not recommended for drug dose adjustment Performed By: #### B MP3 ####[address] [place] [address] Chloride molar conc 103 mmol/L Normal 98-107 [facility] Comment on above: Performed By: #### B MP3 ####[address] [place] [address] Potassium molar conc 4.9 mmol/L Normal 3.5-5.1 [facility] Comment on above: Performed By: #### B MP3 ####[address] [place] [address] Sodium molar conc 139 mmol/L Normal 137-145 [facility] Comment on above: Performed By: #### B MP3 ####[address] [place] [address] Albumin, Serumon 03-14-2018 Albumin mass conc 4.7 g/dL Normal 3.5-5.0 [facility] Comment on above: Performed By: #### H A1C2, HEMOG, ALB3, BMP3 ####[address] [place], [place] Basic Metabolic Panelon 10-0 Anion gap 3 molar conc 11 Normal [facility] Comment on above: Performed By: #### H A1C2, HEMOG, ALB3, BMP3 ####[address] [place], [place] Calcium mass conc 10.1 mg/dL Normal 8.4-10.4 [facility] Comment on above: Performed By: #### H A1C2, HEMOG, ALB3, BMP3 ####[address] [place], [place] CO2 molar conc 27 mmol/L Normal 22-30 [facility] Comment on above: Performed By: #### H A1C2, HEMOG, ALB3, BMP3 ####[address] [place], [place] Glucose mass conc 90 mg/dL Normal 70-100 [facility] Comment on above: Performed By: #### H A1C2, HEMOG, ALB3, BMP3 ####[address] [place], [place] Urea nitrogen mass conc 12 mg/dL Normal 7-20 [facility] Comment on above: Performed By: #### H A1C2, HEMOG, ALB3, BMP3 ####[address] [place], [place] Creatinine mass conc 0.83 mg/dL Normal 0.52-1.25 [facility] Comment on above: Performed By: #### H A1C2, HEMOG, ALB3, BMP3 ####[address] [place], [place] GFR/1.73 sq M predicted among blacks MDRD vol rate/area (S/P/Bld) mL/min/{1.73_m2} Normal >60 [facility] Comment on above: Performed By: #### H A1C2, HEMOG, ALB3, BMP3 ####[address] [place] [address] GFR/1.73 sq M predicted among non-blacks MDRD vol rate/area (S/P/Bld) mL/min/{1.73_m2} Normal >60 [facility] Comment on above: Result Comment: Sour ce- MDRD equation with creatinine calibration to IDMS(NKDEP) eGFR not recommended for drug dose adjustment Performed By: #### H A1C2, HEMOG, ALB3, BMP3 ####[address] [place] [address] Chloride molar conc 102 mmol/L Normal 98-107 [facility] Comment on above: Performed By: #### H A1C2, HEMOG, ALB3, BMP3 ####[address] [place] [address] Potassium molar conc 4.7 mmol/L Normal 3.5-5.1 [facility] Comment on above: Performed By: #### H A1C2, HEMOG, ALB3, BMP3 ####[address] [address] Sodium molar conc 140 mmol/L Normal 137-145 [facility] Comment on above: Performed By: #### H A1C2, HEMOG, ALB3, BMP3 ####[address] [address] Hemoglobin A1Con 03-14-2018 Glucose mass conc 120 mg/dL Normal [facility] Comment on above: Performed By: #### H A1C2, HEMOG, ALB3, BMP3 ####[address] [place] [address] Hemoglobin A1c/Hemoglobin.total mass fraction (Bld) 5.8 % High 4.0-5.7 [facility] Comment on above: Result Comment: --Hg bA1C levels may not be accurate in patients who haverenal disease, received recent blood transfusions, are anemic,or who have dyshemoglobinemia. Performed By: #### H A1C2, HEMOG, ALB3, BMP3 ####[address] Hemogramon 03-14-2018 Erythrocyte distribution width Auto Ratio (RBC) 13.3 % Normal 11.5-14.5 [facility] Comment on above: Performed By: #### H A1C2, HEMOG, ALB3, BMP3 ####[address] [place], [place] Hematocrit Auto Volume Fraction (Bld) 38.9 % Normal 35.0-47.0 [facility] Comment on above: Performed By: #### H A1C2, HEMOG, ALB3, BMP3 ####[address] Hemoglobin mass conc (Bld) 13.2 g/dL Normal 11.7-16.0 [facility] Comment on above: Performed By: #### H A1C2, HEMOG, ALB3, BMP3 ####[address] MCH Auto Entitic mass (RBC) 31.9 pg Normal 26.0-34.0 [facility] Comment on above: Performed By: #### H A1C2, HEMOG, ALB3, BMP3 ####[address] MCHC Auto mass conc (RBC) 34.0 % Normal 32.0-36.0 [facility] Comment on above: Performed By: #### H A1C2, HEMOG, ALB3, BMP3 ####[address] MCV Auto Entitic volume (RBC) 93.9 fL Normal 79.0-98.0 [facility] Comment on above: Performed By: #### H A1C2, HEMOG, ALB3, BMP3 ####[address] Platelet mean volume Auto Entitic volume (Bld) 7.9 fL Normal 7.4-10.4 [facility] Comment on above: Performed By: #### H A1C2, HEMOG, ALB3, BMP3 ####[address] Platelets Auto #/vol (Bld) 304 10*3/uL Normal 140-440 [facility] Comment on above: Performed By: #### H A1C2, HEMOG, ALB3, BMP3 ####[facility] [place], [place] RBC Auto #/vol (Bld) 4.15 10*6/uL Normal 3.80-5.20 [facility] Comment on above: Performed By: #### H A1C2, HEMOG, ALB3, BMP3 ####[address] [place], [place] WBC Auto #/vol (Bld) 6.7 10*3/uL Normal 3.6-10.7 [facility] Comment on above: Performed By: #### H A1C2, HEMOG, ALB3, BMP3 ####[address] [place], [place] Surgical Pathologyon 018 Surgical Pathology [id number] [facility] PATH[facility] LABORATORY MEDICINE [address] [place] [address] FINAL SURGICAL PATHOLOGY REPORT NAM E: AMANDA GRUBBS .O.B.: 1970 47 Y F BILLING NO.: [id number] PROCEDURE 11/27/2017 DATE:SURGEON: ROLAN JORDAN M.D. [...] theirperformance characteristics [facility]. They have not been cleared by [...] false negativity on decalcified specimens.Professional Performing Location: [address] [address]. DEPARTMENT OF PATHOLOGY AND LABORATORY MEDICINE [place] [address] Normal [facility] Vital Signs Date Time Vital Sign Value Performing Clinician Facility 02-06-2025 08:21-0400 Body height 160.[address] Franky Pearson DO Work Phone: [facility] 02-06-2025 08:21-0400 Body mass index (BMI) [Ratio] 29.9 kg/m2 Dr. Franky Pearson DO Work Phone: [facility] 02-06-2025 08:21-0400 Body weight 76.[address] Franky Pearson DO Work Phone: [facility] 02-02-2025 13:41-0400 Body temperature 98.3 [degF] Dr. Franky Pearson DO Work Phone: [facility] 02-02-2025 13:41-0400 Diastolic blood pressure 62 mm[Hg] Dr. Franky Pearson DO Work Phone: [facility] 02-02-2025 13:41-0400 Heart rate 81 /min Dr. Franky Pearson DO Work Phone: [facility] 02-02-2025 13:41-0400 Respiratory rate 16 /min Dr. Franky Pearson DO Work Phone: [facility] 02-02-2025 13:41-0400 SaO2% (BldA) [Mass fraction] 98 % Dr. Franky Pearson DO Work Phone: [facility] 02-02-2025 13:41-0400 Systolic blood pressure 122 mm[Hg] Dr. Franky Pearson DO Work Phone: [facility] 01-29-2025 09:18-0400 Body height 160.[address] Franky Pearson DO Work Phone: [facility] 01-29-2025 09:18-0400 Body mass index (BMI) [Ratio] 29.9 kg/m2 Dr. Franky Pearson DO Work Phone: [facility] 01-29-2025 09:18-0400 Body weight 76.[address] Franky Pearson DO Work Phone: [facility] 01-29-2025 09:18-0400 Diastolic blood pressure 72 mm[Hg] Dr. Franky Pearson DO Work Phone: [facility] 01-29-2025 09:18-0400 Heart rate 90 /min Dr. Franky Pearson DO Work Phone: [facility] 01-29-2025 09:18-0400 Respiratory rate 16 /min Dr. Franky Pearson DO Work Phone: [facility] 01-29-2025 09:18-0400 SaO2% (BldA) [Mass fraction] 98 % Dr. Franky Pearson DO Work Phone: [facility] 01-29-2025 09:18-0400 Systolic blood pressure 116 mm[Hg] Dr. Franky Pearson DO Work Phone: [facility] 01-16-2025 07:25-0400 Body temperature 98.1 [degF] Dr. Franky Pearson DO Work Phone: [facility] 01-16-2025 07:25-0400 Diastolic blood pressure 65 mm[Hg] Dr. Franky Pearson DO Work Phone: [facility] 01-16-2025 07:25-0400 Heart rate 72 /min Dr. Franky Pearson DO Work Phone: [facility] 01-16-2025 07:25-0400 Respiratory rate 16 /min Dr. Franky Pearson DO Work Phone: [facility] 01-16-2025 07:25-0400 SaO2% (BldA) [Mass fraction] 100 % Dr. Franky Pearson DO Work Phone: [facility] 01-16-2025 07:25-0400 Systolic blood pressure 97 mm[Hg] Dr. Franky Pearson DO Work Phone: [facility] 01-16-2025 05:54-0400 Body height 160.[address] Franky Pearson DO Work Phone: [facility] 01-16-2025 05:54-0400 Body mass index (BMI) [Ratio] 28.9 kg/m2 Dr. Franky Pearson DO Work Phone: [facility] 01-16-2025 05:54-0400 Body weight [address] Franky Pearson DO Work Phone: [facility] 11-26-2024 09:57-0400 Body height 160.[address] Franky Pearson DO Work Phone: [facility] 11-26-2024 09:57-0400 Body mass index (BMI) [Ratio] 29 kg/m2 Dr. Franky Pearson DO Work Phone: [facility] 11-26-2024 09:57-0400 Body temperature 98.5 [degF] Dr. Franky Pearson DO Work Phone: [facility] 11-26-2024 09:57-0400 Body weight 74.[address] Franky Pearson DO Work Phone: [facility] 11-26-2024 09:57-0400 Diastolic blood pressure 93 mm[Hg] Dr. Franky Pearson DO Work Phone: [facility] 11-26-2024 09:57-0400 Heart rate 85 /min Dr. Franky Pearson DO Work Phone: [facility] 11-26-2024 09:57-0400 Respiratory rate 16 /min Dr. Franky Pearson DO Work Phone: [facility] 11-26-2024 09:57-0400 SaO2% (BldA) [Mass fraction] 97 % Dr. Franky Pearson DO Work Phone: [facility] 11-26-2024 09:57-0400 Systolic blood pressure 139 mm[Hg] Dr. Franky Pearson DO Work Phone: [facility] 09-25-2024 10:43-0400 Body mass index (BMI) [Ratio] 29 kg/m2 Dr. Franky Pearson DO Work Phone: [facility] 09-25-2024 10:43-0400 Body weight 74.[address] Franky Pearson DO Work Phone: [facility] 09-25-2024 10:43-0400 Diastolic blood pressure 78 mm[Hg] Dr. Franky Pearson DO Work Phone: [facility] 09-25-2024 10:43-0400 Systolic blood pressure 118 mm[Hg] Dr. Franky Pearson DO Work Phone: [facility] 08-19-2024 07:30-0400 Body mass index (BMI) [Ratio] 29.2 kg/m2 Dr. Franky Pearson DO Work Phone: [facility] 08-19-2024 07:30-0400 Body temperature 97.5 [degF] Dr. Franky Pearson DO Work Phone: [facility] 08-19-2024 07:30-0400 Body weight 74.[address] Franky Pearson DO Work Phone: [facility] 08-19-2024 07:30-0400 Diastolic blood pressure 86 mm[Hg] Dr. Franky Pearson DO Work Phone: [facility] 08-19-2024 07:30-0400 Heart rate 84 /min Dr. Franky Pearson DO Work Phone: [facility] 08-19-2024 07:30-0400 Respiratory rate 18 /min Dr. Franky Pearson DO Work Phone: [facility] 08-19-2024 07:30-0400 SaO2% (BldA) [Mass fraction] 98 % Dr. Franky Pearson DO Work Phone: [facility] 08-19-2024 07:30-0400 Systolic blood pressure 126 mm[Hg] Dr. Franky Pearson DO Work Phone: [facility] 08-13-2024 08:34-0500 Body temperature 97.6 [degF] Dr. Franky Pearson DO Work Phone: [facility] 08-13-2024 08:34-0500 Diastolic blood pressure 60 mm[Hg] Dr. Franky Pearson DO Work Phone: [facility] 08-13-2024 08:34-0500 Heart rate 83 /min Dr. Franky Pearson DO Work Phone: [facility] 08-13-2024 08:34-0500 SaO2% (BldA) [Mass fraction] 99 % Dr. Franky Pearson DO Work Phone: [facility] 08-13-2024 08:34-0500 Systolic blood pressure 120 mm[Hg] Dr. Franky Pearson DO Work Phone: [facility] 05-13-2023 10:41-0500 Body height 160.[address] Yessi Mcqueen Work Phone: [facility] 05-13-2023 10:41-0500 Body temperature 98 [degF] Dr. Yessi Mcqueen Work Phone: [facility] 05-13-2023 10:41-0500 Diastolic blood pressure 88 mm[Hg] Dr. Yessi Mcqueen Work Phone: [facility] 05-13-2023 10:41-0500 Heart rate 81 /min Dr. Yessi Mcqueen Work Phone: [facility] 05-13-2023 10:41-0500 Respiratory rate 17 /min Dr. Yessi Mcqueen Work Phone: [facility] 05-13-2023 10:41-0500 SaO2% (BldA) [Mass fraction] 96 % Dr. Yessi Mcqueen Work Phone: [facility] 05-13-2023 10:41-0500 Systolic blood pressure 126 mm[Hg] Dr. Yessi Mcqueen Work Phone: [facility] 08-26-2022 19:04-0400 Body temperature 97.88 [degF] LINDA MARTINEZ MD [facility] 08-26-2022 18:57-0400 Body temperature 97.88 [degF] LINDA MARTINEZ MD [facility] 08-26-2022 18:30-0400 Diastolic Blood Pressure Non-Invasive 72 1 LINDA MARTINEZ MD [facility] 08-26-2022 18:30-0400 Heart rate 80 /min LINDA MARTINEZ MD [facility] 08-26-2022 18:30-0400 Respiratory rate 13 /min LINDA MARTINEZ MD [facility] 08-26-2022 18:30-0400 Systolic Blood Pressure Non-Invasive 130 1 LINDA MARTINEZ MD [facility] 08-26-2022 18:00-0400 Diastolic Blood Pressure Non-Invasive 69 1 LINDA MARTINEZ MD [facility] 08-26-2022 18:00-0400 Heart rate 81 /min LINDA MARTINEZ MD [facility] 08-26-2022 18:00-0400 Respiratory rate 14 /min LINDA MARTINEZ MD [facility] 08-26-2022 18:00-0400 Systolic Blood Pressure Non-Invasive 127 1 LINDA MARTINEZ MD [facility] 08-26-2022 17:30-0400 Diastolic Blood Pressure Non-Invasive 72 1 LINDA MARTINEZ MD [facility] 08-26-2022 17:30-0400 Heart rate 80 /min LINDA MARTINEZ MD [facility] 08-26-2022 17:30-0400 Respiratory rate 13 /min LINDA MARTINEZ MD [facility] 08-26-2022 17:30-0400 Systolic Blood Pressure Non-Invasive 130 1 LINDA MARTINEZ MD [facility] 08-26-2022 16:07-0400 Body temperature 96.62 [degF] LINDA MARTINEZ MD [facility] 08-18-2022 14:03-0500 Body height 160.7 cm Shayna Andrade MD Work Phone: [facility] 08-18-2022 14:03-0500 Body mass index (BMI) [Ratio] 31.74 kg/m2 Shayna Andrade MD Work Phone: [facility] 08-18-2022 14:03-0500 Body weight 81.92 kg Shayna Andrade MD Work Phone: [facility] 08-18-2022 14:03-0500 Diastolic blood pressure 79 mm[Hg] Shayna Andrade MD Work Phone: [facility] 08-18-2022 14:03-0500 Heart rate 94 /min Shayna Andrade MD Work Phone: [facility] 08-18-2022 14:03-0500 Systolic blood pressure 121 mm[Hg] Shayna Andrade MD Work Phone: [facility] 07-07-2022 10:09-0500 Body height 160.7 cm Shayna Andrade MD Work Phone: [facility] 07-07-2022 10:09-0500 Body mass index (BMI) [Ratio] 32.3 kg/m2 Shayna Andrade MD Work Phone: [facility] 07-07-2022 10:09-0500 Body weight 83.37 kg Shanya Andraed MD Work Phone: [facility] 07-07-2022 10:09-0500 Diastolic blood pressure 82 mm[Hg] Shayna Andrade MD Work Phone: [facility] 07-07-2022 10:09-0500 Heart rate 84 /min Shayna Andrade MD Work Phone: [facility] 07-07-2022 10:09-0500 Respiratory rate 14 /min Shayna Andrade MD Work Phone: [facility] 07-07-2022 10:09-0500 Systolic blood pressure 122 mm[Hg] Shayna Andrade MD Work Phone: [facility] 03-03-2022 09:25-0400 Diastolic Blood Pressure NBP [address] ROBSON PUGH MD [facility] 03-03-2022 09:25-0400 Heart rate 80 /min DR ROBSON PUGH MD [facility] 03-03-2022 09:25-0400 Respiratory rate 14 /min DR ROBSON PUGH MD [facility] 03-03-2022 09:25-0400 Systolic Blood Pressure NBP [address] ROBSON PUGH MD [facility] 03-03-2022 09:20-0400 Diastolic Blood Pressure NBP [address] ROBSON PUGH MD [facility] 03-03-2022 09:20-0400 Heart rate 73 /min DR ROBSON PUGH MD [facility] 03-03-2022 09:20-0400 Respiratory rate 21 /min DR ROBSON PUGH MD [facility] 03-03-2022 09:20-0400 Systolic Blood Pressure NBP [address] ROBSON PUGH MD [facility] 03-03-2022 09:16-0400 Diastolic Blood Pressure NBP [address] ROBSON PUGH MD [facility] 03-03-2022 09:16-0400 Heart rate 78 /min DR ROBSON PUGH MD [facility] 03-03-2022 09:16-0400 Respiratory rate 15 /min DR ROBSON PUGH MD [facility] 03-03-2022 09:16-0400 Systolic Blood Pressure NBP [address] ROBSON PUGH MD [facility] 03-03-2022 07:55-0400 Body height 162.[address] ROBSON PUGH MD [facility] 03-03-2022 07:55-0400 Body temperature 98.06 [degF] DR ROBSON PUGH MD [facility] 03-03-2022 07:55-0400 Body weight 79.[address] ROBSON PUGH MD [facility] 03-03-2022 07:55-0400 Body weight 30.07 kg/m2 DR ROBSON PUGH MD [facility] 05-22-2021 05:00-0500 Diastolic blood pressure 79 mm[Hg] RUY RIVERA MD [facility] 05-22-2021 05:00-0500 Heart rate 70 /min RUY RIVERA MD [facility] 05-22-2021 05:00-0500 Mean blood pressure 91 mm[Hg] RUY RIVERA MD [facility] 05-22-2021 05:00-0500 Reason For Taking VItal Signs RUY RIVERA MD [facility] 05-22-2021 05:00-0500 Respiratory rate 14 /min RUY RIVERA MD [facility] 05-22-2021 05:00-0500 Systolic blood pressure 114 mm[Hg] RUY RIVERA MD [facility] 05-22-2021 04:24-0500 Body temperature 98.06 [degF] RUY RIVERA MD [facility] 05-22-2021 04:24-0500 Diastolic blood pressure 97 mm[Hg] RUY RIVERA MD [facility] 05-22-2021 04:24-0500 Heart rate 81 /min RUY RIVERA MD [facility] 05-22-2021 04:24-0500 Mean blood pressure 108 mm[Hg] RUY RIVERA MD [facility] 05-22-2021 04:24-0500 Respiratory rate 16 /min RUY RIVERA MD [facility] 05-22-2021 04:24-0500 Systolic blood pressure 130 mm[Hg] RUY RIVERA MD [facility] Encounters Encounter Date Encounter Type Care Provider Facility Start: 03-05-2025 ambulatory Franky Daydaymiranda Facility: [facility] Start: 02-19-2025 End: 02-19-2025 ambulatory Franky Daydaymiranda Facility:[facility] Start: 02-06-2025 End: 02-06-[address] Allan Coleman MD -[facility] Start: 02-06-2025 End: 02-06-[address] Franky Pearson DO Work Phone: -[facility] Start: 02-02-2025 End: 02-02-2025 Patient encounter procedure Angus Villalobos NM -[facility] Work Phone: Start: 02-02-2025 End: 02-02-[address] Franky Pearson DO Work Phone: -[facility] Start: 02-02-2025 End: 02-02-2025 ambulatory Angus Villalobos Facility:[facility] Start: 01-29-2025 End: 01-29-2025 Patient encounter procedure Kiersten PEREZ -[facility] Work Phone: Start: 01-29-2025 End: 01-29-[address] Franky Pearson DO Work Phone: -[facility] Start: 01-16-2025 ambulatory Franky Pearson Facility: [facility] Start: 01-16-2025 Non-patient / Non-visit Rock Joyner nd DO -[facility] Start: 01-16-2025 End: 01-16-2025 Admission to same day surgery center Rock Pineda DO -Endoscopy Work Phone: Start: 01-16-2025 End: 01-16-[address] Franky Pearson DO Work Phone: -Endoscopy Start: 01-05-2025 End: 01-05-[address] Yessi Mcqueen DC -[facility] Work Phone: Start: 01-05-2025 End: 01-05-[address] Franky Pearson DO Work Phone: -[facility] Start: 12-18-2024 End: 12-18-[address] Yessi Mcqueen DC -[facility] Work Phone: Start: 12-18-2024 End: 12-18-[address] Franky Pearson DO Work Phone: -[facility] Start: 11-26-2024 End: 11-26-2024 Patient encounter procedure Kiersten PEREZ -[facility] Work Phone: Start: 11-26-2024 End: 11-26-[address] Franky Pearson DO Work Phone: [facility] Work Phone: Start: 09-25-2024 End: 09-25-[address] Yessi Mcqueen DC -[facility] Work Phone: Start: 09-25-2024 End: 09-25-2024 ambulatory Yessi Mcqueen Facility:[facility] Start: 08-19-2024 End: 08-19-2024 Patient encounter procedure LACEY Lyman -[facility] Work Phone: Start: 08-19-2024 End: 08-19-2024 ambulatory Moon Lyman Facility:[facility] Start: 08-13-2024 End: 08-13-2024 Patient encounter procedure Jose M PEREZ -[facility] Work Phone: Start: 08-13-2024 End: 08-13-2024 ambulatory Franky Pearson Facility:[facility] Start: 07-23-2024 End: 07-23-2024 ambulatory Franky Naylorko Facility:[facility] Start: 07-01-2024 End: 07-01-2024 ambulatory Franky Halko Facility:[facility] Start: 06-30-2024 End: 06-30-2024 ambulatory Rolan Valdes NP Facility:[facility] Start: 06-27-2024 End: 06-27-2024 ambulatory Hans HURT Facility:[facility] Start: 06-13-2024 ambulatory Franky Halko Facility: [facility] Start: 06-13-2024 End: 06-13-2024 ambulatory Franky Halko Facility:[facility] Start: 05-13-2024 End: 05-13-2024 ambulatory Franky Halko Facility:[facility] Start: 05-06-2024 ambulatory Franky Halko Facility: [facility] Start: 05-06-2024 End: 05-06-2024 ambulatory Franky Halko Facility:[facility] Start: 05-05-2024 End: 05-05-2024 ambulatory Franky Halko Facility:[facility] Start: 04-17-2024 End: 04-17-2024 ambulatory Hans HURT Facility:[facility] Start: 04-15-2024 ambulatory Franky Halko Facility: [facility] Start: 03-26-2024 End: 03-26-2024 ambulatory Franky Halko Facility:[facility] Start: 03-11-2024 End: 03-11-2024 ambulatory Franky Halko Facility:[facility] Start: 09-12-2023 End: 09-12-[address] Allan Coleman Work Phone: [facility] Work Phone: Start: 09-12-2023 End: 09-12-[address] Allan Coleman Work Phone: [facility], [place] Start: 07-26-2023 End: 07-26-2023 ambulatory [employer]-Amrita Valdes [employer] Work Phone: [facility] Work Phone: Start: 07-26-2023 End: 07-26-2023 Patient encounter procedure [employer]-Amrita Valdes [employer] Work Phone: [facility]-Cat Scan, [facility] Work Phone: Start: 07-24-2023 End: 07-24-2023 ambulatory [employer]-C Rolan Keisha [employer] Work Phone: [facility] Work Phone: Start: 07-24-2023 End: 07-24-2023 Patient encounter procedure [employer]-Amrita Rolan Keisha [employer] Work Phone: [facility] Work Phone: Start: 06-22-2023 End: 06-22-[address] Yessi Mcqueen Work Phone: [facility] Work Phone: Start: 06-22-2023 End: 06-22-[address] Yessi Mcqueen Work Phone: [facility] Start: 06-01-2023 End: 06-01-[address] Yessi Mcqueen Work Phone: [facility] Start: 05-13-2023 End: 05-13-[address] Yessi Mcqueen Work Phone: [facility] Work Phone: Start: 03-20-2023 End: 03-20-[address] Yessi Mcqueen Work Phone: [facility] Work Phone: Start: 01-16-2023 Telephone encounter Shayna mcdonald MD Work Phone: [facility] [place] Comment on above: Appointment Start: 09-19-2022 End: 09-20-2022 ambulatory FRANKY PEARSON DO Facility:[facility] Start: 09-13-2022 End: 09-14-2022 ambulatory FRANKY PEARSON DO Facility:[facility] Start: 09-13-2022 End: 09-13-2022 Patient encounter procedure FRANKY PEARSON DO [facility] Start: 09-02-2022 End: 09-03-2022 ambulatory FRANKY PEARSON DO Facility:[facility] Start: 09-02-2022 End: 09-02-2022 Patient encounter procedure FRANKY PEARSON DO [facility] Start: 08-26-2022 End: 08-26-2022 Emergency department patient visit LINDA MARTINEZ MD Facility:[facility] Start: 08-26-2022 End: 08-26-2022 Emergency department patient visit LINDA MARTINEZ MD [facility] Start: 08-22-2022 End: 08-23-2022 ambulatory FRANKY PEARSON DO Facility:[facility] Start: 08-22-2022 End: 08-22-2022 Patient encounter procedure FRANKY PEARSON DO [facility] Start: 08-18-2022 End: 08-18-2022 ambulatory [facility] Start: 08-18-2022 End: 08-18-2022 Office outpatient visit 15 minutes Shayna Andrade MD Work Phone: [facility] [place] Comment on above: Pre-diabetes (Primar y Dx); S/P bariatric surgery; Weight gain; BMI 31.0-31.9,adult; Class 1 obesity with serious comorbidity and body mass index (BMI) of 31.0 to 31.9 in adult, unspecified obesity type; Deficiency of multiple nutrient elements; Vitamin D deficiency Start: 07-07-2022 End: 07-07-2022 ambulatory [facility] Start: 07-07-2022 End: 07-07-2022 Office outpatient visit 15 minutes Shayna Andrade MD Work Phone: [facility] [place] Comment on above: Pre-diabetes (Primar y Dx); S/P bariatric surgery; Weight gain; BMI 32.0-32.9,adult; Class 1 obesity with serious comorbidity and body mass index (BMI) of 32.0 to 32.9 in adult, unspecified obesity type Start: 2022 End: 06-24-2022 ambulatory FRANKY HALKO DO Facility:[facility] Start: 2022 End: 2022 Patient encounter procedure FRANKY HALKO DO [facility] Start: 06-07-2022 End: 06-07-2022 ambulatory [facility] Start: 05-10-2022 End: 05-10-2022 ambulatory [facility] Start: 04-26-2022 End: 04-27-2022 ambulatory FRANKY HALKO DO Facility:[facility] Start: 04-26-2022 End: 04-26-2022 Patient encounter procedure FRANKY HALKO DO [facility] Start: 04-15-2022 End: 04-16-2022 ambulatory FRANKY HALKO DO Facility:[facility] Start: 04-15-2022 End: 04-15-2022 Patient encounter procedure FRANKY HALKO DO [facility] Start: 03-03-2022 End: 03-03-2022 ambulatory ROBSON PUGH Facility:[facility] Start: 03-03-2022 End: 03-03-[address] ROBSON PUGH MD [facility] Start: 02-02-2022 End: 02-03-2022 ambulatory FRANKY HALKO DO Facility:[facility] Start: 02-02-2022 End: 02-02-2022 Patient encounter procedure FRANKY HALKO DO [facility] Start: 12-02-2021 End: 12-03-2021 ambulatory FRANKY HALKO DO Facility:[facility] Start: 12-02-2021 End: 12-02-2021 Patient encounter procedure FRANKY HALKO DO [facility] Start: 07-04-2021 End: 07-04-2021 Patient encounter procedure FRANKY PEARSON DO [facility] Start: 06-20-2021 End: 06-20-2021 Patient encounter procedure FRANKY PEARSON DO [facility] Start: 05-22-2021 End: 05-22-2021 Emergency department patient visit RUY RIVERA MD [facility] Start: 02-25-2020 End: 02-25-2020 Subsequent hospital visit by physician Sekou Aparicio Work Phone: [facility] Start: 02-05-2020 End: 02-05-2020 Patient encounter procedure [facility] Start: 02-03-2020 Encounter for other preprocedural examination [facility] Start: 02-02-2020 End: 02-03-2020 Patient encounter procedure KATHERINE Bonds NP [facility] Start: 12-10-2019 End: 12-10-2019 Subsequent hospital visit by physician Sekou Aparicio Work Phone: [facility] Start: 10-20-2019 End: 10-20-2019 Subsequent hospital visit by physician Sekou Aparicio Work Phone: [facility] Start: 04-10-2019 End: 04-10-2019 Subsequent hospital visit by physician Rolan Jordan Work Phone: [facility] Procedures Date Procedure Procedure Detail Performing Clinician Start: 02-02-[address] Matthew Pearson DO Work Phone: Start: 01-16-[address] Zbigniew Pearson DO Work Phone: Start: 07-26-2023 CT of chest without contrast [employer]-C Rolan Roof [employer] Work Phone: Start: 07-24-2023 Dual energy X-ray absorptiometry [employer]-C Rolan Valdes [employer] Work Phone: Start: 07-24-2023 Ultrasonography of breast [employer]-C Rolan Valdes [employer] Work Phone: Start: 07-24-2023 Bilateral mammography N P-C Rolan Valdes [employer] Work Phone: Start: 06-01-2023 Plain X-ray of [...] or older (1 - 1-dose 60+ series) [facility] Start: 04-07-2030 DTaP/Tdap/Td Vaccines (2 - Td or Tdap) DTaP/Tdap/Td Vaccines (2 - Td or Tdap) [facility] Start: 06-08-2025 Lipid panel Lipid Panel [facility] Start: 02-06-2025 Foot min 3 Views Foot min [address] [facility] Start: 02-06-2025 Knee 4 or More Views Knee [address] [facility] Start: 02-06-2025 XR Foot GE [address] [facility] Start: 02-06-2025 XR Knee GE [address] [facility] Start: 01-16-2025 Colonoscopy w/biopsy single/multiple COLONOSCOPY AND BIOPSY [facility] Start: 01-16-2025 Egd transoral biopsy single/multiple EGD BIOPSY SINGLE/MULTIPLE [facility] Start: 01-16-[address] [facility] Start: 02-09-2023 COVID-19 Vaccine ( season) COVID-19 Vaccine () [facility] Start: 02-09-2023 Influenza vaccination Influenza Vaccine (#1) [facility] Start: 12-15-2022 End: 12-15-2022 Patient encounter procedure 12/15/2022 Office Visit Weight Management Shayna Andrade MD [address] [place], [place] [address] [facility] [place] Start: 10-19-2022 Zoster Vaccines (2 of 2) Zoster Vaccines (2 of 2) [facility] Start: 08-18-2022 End: 08-18-2022 Patient encounter procedure 08/18/2022 Office Visit Weight Management Shayna Andrade MD [address] [place] [address] [facility] [place] Start: 02-09-2022 Influenza vaccination Influenza Vaccine (#1) [facility] Start: 2021 Zoster Vaccines (1 of 2) Zoster Vaccines (1 of 2) [facility] Start: 06-02-2021 COVID-19 Vaccine (4 - Booster for Moderna series) COVID-19 Vaccine (4 - Booster for Moderna series) [facility] Start: 02-10-2020 Influenza vaccination Flu vaccine (#1) [place], [place] Start: 03-14-2019 A1C test (Diabetic or Prediabetic) A1C test (Diabetic or Prediabetic) [place] Start: 03-14-2019 HbA1c (Bld) [Mass fraction] A1C test (Diabetic or Prediabetic) [place] Start: 02-09-2019 Influenza vaccination Flu vaccine (#1) [place] Start: 2011 Screening for malignant neoplasm of breast Mammogram [facility] Start: 2001 Screening for malignant neoplasm of cervix [facility] Start: 1992 Cervical cancer screen Cervical cancer screen [place], [place] Start: 1992 Screening for malignant neoplasm of cervix [facility] Start: 1990 DTaP/Tdap/Td vaccine (1 - Tdap) DTaP/Tdap/Td vaccine (1 - Tdap) [place] Start: 1990 Hepatitis A Vaccines (1 of 2 - Risk 2-dose series) Hepatitis A Vaccines (1 of 2 - Risk 2-dose series) [facility] Start: 1990 Hepatitis B vaccine (1 of 3 - Risk 3-dose series) Hepatitis B vaccine (1 of 3 - Risk 3-dose series) [place] Start: 1989 Diabetes mellitus screening Diabetes Screening [facility] Start: 1989 Diabetic microalbuminuria test Diabetic microalbuminuria test [place], [place] Start: 1989 Hepatitis C screening Hepatitis C Screening [facility] Start: 1986 HIV screen HIV screen [place] Start: 1986 HIV screening HIV screen [place] Start: 1983 Depression Screening Depression Screening [facility] Start: 1981 [object Object] Diabetic foot exam [place] Start: 1981 Diabetic foot examination Diabetic foot exam [place] Start: 1981 Diabetic retinal exam Diabetic retinal exam [place], [place] Start: 1981 Lipid panel Lip[place] Start: 1981 Lipid screen Lipid [place] Start: 1977 Pneumococcal 0-64 years Vaccine (1 of 1 - PPSV23) Pneumococcal 0-64 years Vaccine (1 of 1 - PPSV23) [place] Start: 1972 Hepatitis A Vaccines (1 of 2 - Risk 2-dose series) Hepatitis A Vaccines (1 of 2 - Risk 2-dose series) [facility] Start: 1972 MMR Vaccines (1 of 1 - Standard series) MMR Vaccines (1 of 1 - Standard series) [facility] Start: 1971 Hepatitis B Vaccines (1 of 3 - 3-dose series) Hepatitis B Vaccines (1 of 3 - 3-dose series) [facility] Start: 1971 HIV screening HIV Screening [facility] Start: 1971 Screening for malignant neoplasm of colon [facility] CT Chest [facility] Patient referral [facility] Work Phone: [facility] Immunizations Immunization Date Immunization Notes Care Provider [facility] 03-27-2024 influenza, seasonal, injectable, preservative free Dr. Franky Pearson DO Work Phone: [facility] 04-16-2023 influenza, injectabl e, quadrivalent, preservative free Dr. Yessi Mcqueen Work Phone: [facility] 08-24-2022 zoster vaccine recombinant; Translations: [Shingrix] LINDA MARTINEZ MD [facility] 03-11-2022 influenza virus vaccine, unspecified formulation LINDA MARTINEZ MD [facility] Comment on above: Result Comment: at [facility] 04-07-2021 SARS-CoV-2 (COVID-19 ) [id number] ROBSON PUGH MD [facility] Comment on above: Result Comment: 2021: TPV18 07-02-2020 SARS-CoV-2 (COVID-19 ) mRNA-[address] ROBSON PUGH MD [facility] Comment on above: Result Comment: 2021: TPV18 06-07-2020 SARS-CoV-2 (COVID-19 ) mRNA-[address] ROBSON PUGH MD [facility] Comment on above: Result Comment: 2021: TPV18 04-07-2020 tetanus toxoid, redu camron diphtheria toxoid, and acellular pertussis vaccine, adsorbed; Translations: [Boostrix (Tdap)] RUY RIVERA MD [facility] 03-11-2020 influenza virus vaccine, unspecified formulation RUY RIVERA MD [facility] 03-10-2020 influenza virus vaccine, unspecified formulation DR ROBSON PUGH MD [facility] 03-30-2014 influenza virus vaccine, unspecified formulation DR ROBSON PUGH MD [facility] 05-03-2012 influenza virus vaccine, unspecified formulation DR ROBSON PUGH MD [facility] Payers Date Payer Category Payer Self-pay 2024 Unknown [id number] 2021 Unknown [employer] [id number] 2021-Present [address] [place] [address] Commercial [id number] [id number] 2017 Unknown [employer] [id number] 2017-Present [phone] [address] [place] [address] xxxxxxxxxxxxx .[id number] .[id number] 2017 Unknown [employer] [id number] 2017-Present [phone] [address] [place] [address] [id number] 1.2.840.730421.1.13.239.2.7.3 .148142.315 2015 Unknown [id number] 1970 Unknown [id number] 2.16.840.1.716587.3.579.2.598 1971 Unknown [id number] 2.16.840.1.173302.3.579.2.598 1971 Unknown [id number] 2.16.840.1.699523.3.579.2.598 1971 Unknown [id number] 2.16.840.1.364365.3.579.2. 1971 Unknown [id number] 2.16.840.1.729588.3.579.2.7 1971 Unknown [id number] 2.16.840.1.031913.3.579.2.7 1971 Unknown [id number] 2.16.840.1.596811.3.579.2.627 1971 Unknown [id number] 2.16.840.1.896306.3.579.2. 1971 Unknown [id number] 2.16.840.1.640455.3.579.2.7 1971 Unknown [id number] 2.16.840.1.809562.3.579.2.7 1971 Unknown [id number] 2.16.840.1.003346.3.579.2.627 1971 Unknown [id number] 2.16.840.1.386454.3.579.2. 1971 Unknown [id number] 2.16.840.1.755436.3.579.2.7 1971 Unknown [id number] 2.16.840.1.276891.3.579.2.7 1959 Unknown [id number] Unknown [id number] 2.16.840.1.315991.3.579.2.598 Unknown [facility] [id number] Unknown [id number] 2.16.840.1.674712.3.579.2.462 Unknown [id number] 2.16.840.1.703484.3.579.2.462 Unknown [id number] 2.16.840.1.919406.3.579.2.462 Unknown [id number] 2.16.840.1.308045.3.579.2.462 Unknown [id number] 2.16.840.1.380080.3.579.2.462 Unknown [id number] 2.16.840.1.608685.3.579.2.462 Unknown [id number] 2.16.840.1.231388.3.579.2.462 Unknown [id number] 2.16.840.1.408493.3.579.2.462 Unknown [id number] 2.16.840.1.650998.3.579.2.462 Unknown [id number] 2.16.840.1.772894.3.579.2.462 Unknown [id number] 2.16.840.1.692664.3.579.2.462 Unknown [id number] 2.16.840.1.332373.3.579.2.462 Unknown [id number] 2.16.840.1.706862.3.579.2.462 Unknown [id number] 2.16.840.1.027565.3.579.2.462 Unknown [id number] 2.16.840.1.795474.3.579.2.462 Unknown [id number] 2.16.840.1.501777.3.579.2.462 Unknown [id number] 2.16.840.1.508927.3.579.2.462 Unknown [id number] 2.16.840.1.919253.3.579.2.462 Unknown [id number] 2.16.840.1.501858.3.579.2.462 Unknown [id number] 2.16.840.1.762160.3.579.2.462 Unknown [id number] 2.16.840.1.996389.3.579.2.462 Unknown [id number] 2.16.840.1.399519.3.579.2.462 Unknown [id number] 2.16.840.1.701665.3.579.2.462 Unknown [id number] 2.16.840.1.068125.3.579.2.462 Unknown [id number] 2.16.840.1.831643.3.579.2.462 Unknown [id number] 2.16.840.1.915393.3.579.2.462 Unknown [id number] 2.16.840.1.421134.3.579.2.462 Unknown [id number] 2.16.840.1.084662.3.579.2.462 Unknown [id number] 2.16.840.1.354622.3.579.2.462 Unknown [id number] 2.16.840.1.780258.3.579.2.462 Unknown [id number] 2.16.840.1.543429.3.579.2.462 Unknown [id number] 2.16840.1.140986.3.579.2.462 Social History Date Type Detail Facility Start: 12-10-2019 End: 01-13-2025 Tobacco smoking status NHIS Never smoker [place], [place] Start: 12-10-2019 End: 07-07-2022 [facility]: [facility]2018 Alcohol Comment less than once a mon th Rizwana[x+1], SIL[place]STRE Start: 1970 Sex Assigned At Not on file M enmanuel [employer], [place] Start: 04-10-2019 End: 02-25-2020 Tobacco use and exposure Never used Gia Nevigo MOSIL[place]STRE Start: 04-10-2019 End: 07-07-2022 Alcohol intake Not Currently Gia Nevigo [place], [place] Start: 1970 Sex Assigned At Female A [facility] Start: 06-27-2022 End: 08-18-2022 Exposure to SARS-CoV-2 (event) Not sure [employer] Start: 07-07-2022 History of Social function [facility] Medical Equipment Procedure Code Equipment Code Equipment Origin al Text Equipment Identifier Dates See Instructions , dx E16.2; check BGT due to hypoglycemic symptoms, up to once per day; dispense 100 glucose test strips, # 100 EA, 0 Refill(s), Pharmacy: [facility], 164, cm, 04/04/22 8:05:00 EDT, Height, 86.1 Start: 04-04-2022 See Instructions , dx E16.2; check BGT due to hypoglycemic symptoms, up to once per day; dispense 100 lancets., # 100 EA, 0 Refill(s), Pharmacy: [facility], 164, cm, 04/04/22 8:05:00 EDT, Height, 86.1 Start: 04-04-2022 See Instructions , dx E16.2; check BGT due to hypoglycemic symptoms, up to once per day; dispense 100 glucose test strips, # 100 EA, 0 Refill(s), Pharmacy: [facility], 164, cm, 04/04/22 8:05:00 EDT, Height, 86.1 Start: 04-04-2022 See Instructions , dx E16.2; check BGT due to hypoglycemic symptoms, up to once per day; dispense 100 lancets., # 100 EA, 0 Refill(s), Pharmacy: [facility], 164, cm, 04/04/22 8:05:00 EDT, Height, 86.1 Start: 04-04-2022 See Instructions , dx E16.2; check BGT due to hypoglycemic symptoms, up to once per day; dispense 100 glucose test strips, # 100 EA, 0 Refill(s), Pharmacy: [facility], 164, cm, 04/04/22 8:05:00 EDT, Height, 86.1 Start: 04-04-2022 See Instructions , dx E16.2; check BGT due to hypoglycemic symptoms, up to once per day; dispense 100 lancets., # 100 EA, 0 Refill(s), Pharmacy: [facility], 164, cm, 04/04/22 8:05:00 EDT, Height, 86.1 Start: 04-04-2022 See Instructions , dx E16.2; check BGT due to hypoglycemic symptoms, up to once per day; dispense 100 glucose test strips, # 100 EA, 0 Refill(s), Pharmacy: [facility], 164, , 04/04/22 8:05:00 EDT, Height, 86.1 Start: 04-04-2022 See Instructions , dx E16.2; check BGT due to hypoglycemic symptoms, up to once per day; dispense 100 lancets., # 100 EA, 0 Refill(s), Pharmacy: [facility], 164, cm, 04/04/22 8:05:00 EDT, Height, 86.1 Start: 04-04-2022 See Instructions , dx E16.2; check BGT due to hypoglycemic symptoms, up to once per day; dispense 100 glucose test strips, # 100 EA, 0 Refill(s), Pharmacy: [facility], 164, , 04/04/22 8:05:00 EDT, Height, 86.1 Start: 04-04-2022 See Instructions , dx E16.2; check BGT due to hypoglycemic symptoms, up to once per day; dispense 100 lancets., # 100 EA, 0 Refill(s), Pharmacy: [facility], 164, cm, 04/04/22 8:05:00 EDT, Height, 86.1 Start: 04-04-2022 See Instructions , dx E16.2; check BGT due to hypoglycemic symptoms, up to once per day; dispense 100 glucose test strips, # 100 EA, 0 Refill(s), Pharmacy: [facility], 164, cm, 04/04/22 8:05:00 EDT, Height, 86.1 Start: 04-04-2022 See Instructions , dx E16.2; check BGT due to hypoglycemic symptoms, up to once per day; dispense 100 lancets., # 100 EA, 0 Refill(s), Pharmacy: [facility], 164, cm, 04/04/22 8:05:00 EDT, Height, 86.1 Start: 04-04-2022 See Instructions , dx E16.2; check BGT due to hypoglycemic symptoms, up to once per day; dispense 100 glucose test strips, # 100 EA, 0 Refill(s), Pharmacy: [facility], 164, cm, 04/04/22 8:05:00 EDT, Height, 86.1 Start: 04-04-2022 See Instructions , dx E16.2; check BGT due to hypoglycemic symptoms, up to once per day; dispense 100 lancets., # 100 EA, 0 Refill(s), Pharmacy: [facility], 164, cm, 04/04/22 8:05:00 EDT, Height, 86.1 Start: 04-04-2022 Goals Date Patient Goal Desired Activity /State Functional Status Date Assessment Result Facility 08-26-2022 Functional Status Independent [facility] 03-03-2022 Functional Status Maintained, Less than 8 hours [facility] Mental Status Date Assessment Result Facility 01-16-2025 Cognitive function Voice/Name [facility] Work Phone: Clinical Notes 05-22-2021 to 01-16-2025 Note Date & Type Note Facility 01-16-[address] [facility] 01-16-[address] [facility] 01-16-[address] [facility] 01-16-[address] [facility] 01-16-[address] [facility] 01-16-2025 History and physi bethanie note [facility] 01-16-2025 Note [facility] Medical Records Department [address] [place] [id number] History Physical Exam 01/16/25 0638 MR#: [id number] Acct: [id number] Name: AMANDA GRUBBS Rep #: [id number] : 1970 54 From: Rock Pineda DO PCP: Dr. Franky Pearson, DO Status:[facility] Location: [place] [address] HPI - General General Date of Admission: [...] shakes very little protein and fiber intake [facility] Medical History Kidney stones Wears glasses Wears [...] #90 caps 11/26/24 Rx release peg 3350-sod sulf,yvljx-wof-fwk See Rx Instructions PO .COMPLEX #2 11/26/24 [...] dysphagia, early sat (more content not included)... [facility] 01-16-[address] [facility] 11-26-2024 Evaluation note Diagnosis Onset Date Resolution [...] Rectal pain acute January 16 025 5:17am [facility] Work Phone: 1(588) 233-698206-18-2025 Evaluation note* Diagnosis Onset Date Resolution Status [...] tract infection) acute February 02, 2025 1:33pm [facility] Work Phone: 1(508) 752-172604-17-2025 Evaluation note* Diagnosis Onset Date Resolution Status [...] thoracic region acute J darnell 2024 11:56am [facility] Work Phone: 1(551) 123-254804-17-2025 Evaluation note* Diagnosis Onset Date Resolution Status [...] thoracic region acute J darnell 2024 9:09am [place] [facility] Work Phone: 1(970) 746-380604-17-2025 Evaluation note* Diagnosis Onset Date Resolution Status [...] Rectal pain acute January 16, 025 5:17am [facility] Work Phone: 1(844) 494-500603-05-2025 Evaluation note* Diagnosis Onset Date Resolution Status [...] H/O gastric bypass chronic November 092024 9:28am [facility] Work Phone: 1(443) [phone] Telephone encounter Note* Telephone Encounter - Liya Walker - 01/16/2023 4:54 PM EDT Name of Caller: Amanda Contact Reason for Appointment: Pt needs to cancel upcoming appt and the pt sill call back to resx. Please advise Office Name: [facility] Medication Refills need, if any: NA Medication [facility]: [id number] Miscellaneous Notes* Telephone Encounter - Liya Walker - 01/16/2023 4:54 PM EDT Name of Caller: Amanda Contact Reason for Appointment: Pt needs to cancel upcoming appt and the pt sill call back to resx. Please advise Office Name: [facility] Medication Refills need, if any: NA Medication Name: NA documented in this [facility]03-18-2023 Hospital Discharge instructions Patient Education 08/26/2022 17:49:43 [...] Swelling, pain or redness in one leg 3057-3815 [employer]. [address] [place] [address]. All rights reserved. This information is not intended as a substitute for professional medical care. Always follow yourhealthcare professional's instructions. Follow Up Care 08/26/2022 16:01:09 With:FRANKY PEARSON Address: [address] [place] [address] [place] [address]- [phone] Business (1) When:2-4 days Comments:Schedule appointment as soon as possibleReturn to ED if symptoms worsenClear liquid diet till 12noon and if symptoms do not recur increase as tolerated.Follow up for outpatient stress testing.Return for symptoms as described [facility] 03-18-2023 Note Discharge Instructions Thank you for allowing [facility] to assist you with your healthcare needs. [...] Return for symptoms as described Where: [address] [facility] [place] [address] [phone] Business (1) Allergies NKA Medications Please ask [...] Swelling, pain or redness in one leg 7914-2071 [employer]. [address] [place] [address]. All rights reserved. This information is not intended as a substitute for professional medical care. Always follow yourhealthcare professional's instructions. Additional Information VACCINATE! IT SAVES LIVES! Members of the community who have not yet received the COVID-19 vaccine and would like to receive it can visit one of [facility] vaccine clinics. There are many vaccine clinic locations within the [facility]. For locations and available times, please visit www.gettheshot.coronavirus.[place].gov/. It is important to note that some COVID mobile vaccine clinics are held outdoors and may be canceled in rainy or stormy conditions. To learn more about pediatric vaccinations (ages 5-11), we invite you to visit the [facility] webpage. https://www.[facility].org/pages/1143-Pnlbt-Bsujbpccael-Ishjclooet-Ijmyn-Ssh stions.htmlTo learn more about the COVID-19 vaccine, we invite you to visit the CDC website for a list of frequently asked questions. https://www.cdc.gov/coronavirus/2019-ncov/vaccines/faq.html [facility] Patient Portal Access Instructions: Stay connected with your healthcare team and access your personal medical information anytime with the [employer] Patient Portal. If you would like a full copy of your medical records please contact the [facility] Medical Records Department Sunday through Sunday between 8a.m. and 4:30p.m. Please follow the directions below to access the portal: 1.Access the email account you provided upon registration to the [facility].2.Look for an invitation email from [facility].3.Open the email and access the invitation link: Accept Invitation to [facility]4.Fill in the required mckenzie to create your account. Sign into www.[employer] with your username and password that you [...] you will allow to register on the [employer] Patient Portal for access to your information. You can also access the [employer] Patient Portal on the zealot network ramírez. Simply click on Health Records under [employer] and then click on the [facility] logo. HOW TO SAFELY DISPOSE OF PRESCRIPTION [...] Call your local pharmacy or go to http://bit.Resource Interactive/3X0Mq3t to find one close to you.3.Make use of household items: Use cat litter or old coffee grounds to dispose medications if other options arenot available. Mix your drugs with these household products, seal them in an airtight container andthrow it into the garbage. Call [facility]: [phone] to be sure your drugs can be [...] that I should contact my chris worrell. 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: Relationship to Patient: Witness Name/Signature: Date/Time: [facility]03-18-2023 Note ORIGINAL EXAMINATION: CT OF THE [...] Date: 08/26/2022 6:34:22 PM Ordering Provider: LINDA MARITNEZ [facility]03-18-2023 Note ORIGINAL EXAMINATION: CT OF THE [...] Sign Date: 08/26/2022 6:34:22 PM Ordering Provider: [facility]03-18-2023 Note ORIGINAL EXAMINATION: ONE XRAY [...] Sign Date: 08/26/2022 5:14:04 PM Ordering Provider: [facility]3]03-18-2023 Note ORIGINAL EXAMINATION: ONE XRAY VIEW OF [...] Sign Date: 08/26/2022 5:14:04 PM Ordering Provider: [facility]03-10-2023 [facility]ENTER POST-OP WEIGHT LOSS MANAGEMENT PROGRESS [...] was performed.Clinical documentation is updated and completed. 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A If yes see Labs Tab [...] is updated and completed. documented in this [facility]01-27-2023 [facility] POST-OP WEIGHT LOSS MANAGEMENT PROGRESS NOTE [...] preDM 4. Weight maintenance after bariatric surgery [facility] 07-07-2022 History of Present illness Narrative* [...] after bariatric surgery discussed documented in this [facility]01-13-2023 Note ORIGINAL HISTORY: Lung nodule COMPARISON: 02 [...] Date: 2022 12:43:51 PM Ordering Provider: [facility]01-13-2023 Note ORIGINAL HISTORY: Lung nodule COMPARISON: 02 [...] Sign Date: 2022 12:43:51 PM Ordering Provider: [facility]12-28-2022 Note [facility] POST-OP WEIGHT [...] was performed.Clinical documentation is updated and completed. [facility] [id number] Evaluation + Plan noteExtracted from: Title:Clinical Document Author:ROBSON PUGH Date:03/03/22 [facility] ADMISSION HISTORY AN D PHYSICIAL CHIEF COMPLAINT: HISTORY OF PRESENT ILLNESS: REVIEW OF SYSTEMS: ACTIVE PROBLEMS: (24) Abnormal mammogram (732324985) Abnormal screening computed tomography (CT) of lung (9237008300) Anxiety (62763947) Breast cancer screening (916181740) Cervical cancer screening (2180435222) Colon cancer screening (122431185) Encounter for well adult exam with abnormal findings (172356038) GERD (gastroesophageal reflux disease) (216867225) Hot flashes due to menopause (656441803) Immunization due (651362025) Insomnia (065730284) 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) Nephrolithiasis (710008648) Obesity (7497738500) Post-menopausal (669856052) Pre-diabetes (5269751118) Preoperative evaluation of a medical condition to rule out surgical contraindications (TAR required) (383647596) Restless legs (60770683) Right arm pain (806574045) S/P gastric bypass (6563240678) Screening for cardiovascular condition (461674145) Somatic dysfunction of upper extremity (2569925907) Tobacco non-user (642974816) Viral syndrome (18760277) MEDICATIONS: Active Inpt Meds: None Active PRN Meds: None One Time Meds: None Active IV Meds: Lactated Ringers Infusion 1,000 mL (LR 1,000 mL) Start: 03/03/22 7:52:00 EDT, Rate: 50 mL/hr, 03/03/22 7:52:00 EDT ALLERGIES: (1) NKA FAMILY HISTORY: SOCIAL HISTORY: PHYSICAL EXAM: VITALS: WuypioHczgAXKnmvfIKZzB3YZP6VjwrDh(kg) 03/03 07:5536.7126/11336260KA55/23 79.5 24 Hr Tmax: 36.7 at 03/03 [...] 02/22/22 * Complete Metabolic Panel 08/22/21 * [facility] Lab Send out (Blood Specimens) 11/22/21 Radiology* US Breast Right Limited 08/08/22 * CT Thorax w/o Contrast 06/07/22 * [place] Mammogram Diagnostic Bilateral w/o Juma 01/01/22 [facility] 09-23-2022 Hospital Discharge instructions Patient Education [...] before eating solid foods. General instructions Take whsl-sdi-wdpacrr and prescription medicines only as told by [...] 09/17/2016 Document Revised: 08/26/2018 Document Reviewed: 09/17/2016 -[employer] Patient Education 2020 [employer]. 03/03/2022 09:18:09 Colonoscopy, Adult, Care After Colonoscopy, [...] a slower pace than normal. ?Eat soft, hzaf-jl-lxqbis foods. Take slao-sft-pagazil or prescription medicines only as told by [...] 01/09/2005 Document Revised: 03/20/2018 Document Reviewed: 08/08/2016 -R- [employer] Patient Education 2020 [employer] App. Follow Up Care 01/09/2022 13:05:28 With:ROBSON PUGH MD Address: [address] [phone] When: Unknown Comments:Follow-up as needed [facility] 09-23-2022 Summary of episode note Discharge Instructions Thank you for allowing [facility] to assist you with your healthcare needs. The following is importantdischarge information regarding your hospital visit. Your Care Team FRANKY PEARSON DO What to do next Scheduled Follow-Up Appointments Appointment Type When With Where Contact InformationPC OV 04/04/2022 08:00 AM FRANKY APPIAH DO [facility] [address] [address] PC OV 05/30/2022 09:00 AM FRANKY ODEN DO [facility] [address] [address] Follow Up Appointments Follow Up with ROBSON PUGH MD When Why: Follow-up as needed Where: [address] [place] [address] [phone] Allergies NKA Medications Please ask your primary [...] before eating solid foods. General instructions Take zouf-ryl-modjedf and prescription medicines only as told by [...] 09/17/2016 Document Revised: 08/26/2018 Document Reviewed: 09/17/2016 -R- [employer] Patient Education 2020 [employer] App. Colonoscopy, Adult, Care After This sheet gives [...] slower pace than normal. ? Eat soft, tjdw-ju-blleqr foods. Take qwim-obo-lifyscj or prescription medicines only as told by [...] 01/09/2005 Document Revised: 03/20/2018 Document Reviewed: 08/08/2016 -R- [employer] Patient Education 2020 [employer]. Additional Information VACCINATE! IT SAVES LIVES! Members of the community who have not yet received the COVID-19 vaccine and would like to receive it can visit one of [facility] vaccine clinics. There are many vaccine clinic locations within the [facility]. For locations and available times, please visit https://[email or web address].[place].gov/. It is important to note that some COVID mobile vaccine clinics are held outdoors and may be canceled in rainy or stormy conditions. To learn more about pediatric vaccinations (ages 5-11), we invite you to visit the [facility] webpage. https://www.[facility].org/pages/7139-Cfbeq-Njljmhmrbav-Sbqxacurcp-Jboge-Rib stions.htmlTo learn more about the COVID-19 vaccine, we invite you to visit the [facility] website for a list of frequently asked questions. https://[employer]/assets/Mbczdhtw-shp-Rhhqyxvh/mqpat-Leneasd-Qlztncgcib _Asked-Questions.pdf [facility] Patient Portal Access Instructions: Stay connected with your healthcare team and access your personal medical information anytime with the [facility] Patient Portal.If you would like a full copy of your medical records, please contact the [facility] Medical Records Department, Sunday through Sunday between 8a.m. and 4:30p.m. Please follow the directions below to access the portal: 1.Access the email account you provided upon registration to the hospital.2.Look for an invitation email from [facility].3.Open the email and access the invitation link: Accept Invitation to [facility]4.Fill in the required mckenzie to create your account. Sign into www.[employer] system with your username and password that you [...] you will allow to register on the [facility] Patient Portal for access to your information. You can also access the [employer] Patient Portal on the zealot network ramírez. Simply click on Health Records under [employer] and then click on the [employer] logo. [...] Call your local pharmacy or go to http://[employer].Resource Interactive/1E5Ra1n to find one close to you.3.Make use of household items: Use cat litter or old coffee grounds to dispose medications if other options arenot available. Mix your drugs with these household products, seal them in an airtight container andthrow it into the garbage. Call [facility]: [phone] to be sure your drugs can be [...] that I should contact my d octor. 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 Digitally Signed by SANTIAGO GUTIERRZE on 03/03/2022 09:12 AM [facility] [facility] Anesthesiology Consult note Patient: AMANDA GRUBBS [...] Problem list: Medical Anxiety / SNOMED CT 85011310 / Confirmed Cervical cancer screening / SNOMED CT 2729088670 / Confirmed Abnormal screening computed tomography (CT) of lung / SNOMED CT 5047156694 / Confirmed GERD (gastroesophageal reflux disease) / SNOMED CT 364165059 / Confirmed S/P gastric bypass / SNOMED CT 6459063096 / Confirmed Immunization due / SNOMED CT 927961295 / Confirmed Insomnia / SNOMED CT 382322913 / Confirmed Nephrolithiasis / SNOMED CT 484240104 / Confirmed Major depression in remission / SNOMED CT 85015146 / Confirmed Abnormal mammogram / SNOMED CT 953121471 / Confirmed Hot flashes due to menopause / SNOMED CT 216875677 / Confirmed Obesity / SNOMED CT 9084219388 / Confirmed Right arm pain / SNOMED CT 560441361 / Confirmed Preoperative evaluation of a medical condition to rule out surgical contraindications (TAR required) / SNOMED CT 158698922 / Confirmed Screening for cardiovascular condition / SNOMED CT 919187171 / Confirmed Breast cancer screening / SNOMED CT 569915372 / Confirmed Colon cancer screening / SNOMED CT 460127439 / Confirmed Encounter for well adult exam with abnormal findings / SNOMED CT 780434491 / Confirmed Post-menopausal / SNOMED CT 108912300 / Confirmed Pre-diabetes / SNOMED CT 8097345406 / Confirmed Restless legs / SNOMED CT 19130035 / Confirmed Somatic dysfunction of upper extremity / SNOMED CT 1042159870 / Confirmed Tobacco non-user / SNOMED CT 615315336 / Confirmed Viral syndrome / SNOMED CT 49975109 / Confirmed, Active Problems (24) Abnormal mammogram [...] with small intestine reconstruction to limit absorption (71857). Endometrial ablation (152011401). Diagnostic laparoscopy of female pelvis (734810663). Hysterectomy (743652813). section (42384112). Comments: 03/03/2022 7:52 Rhonda Saxena RN x2 Cholecystectomy (22227186). Colonoscopy (663255819). Comments: 03/03/2022 7:53 Rhonda Saxena RN x2 Cystourethroscopy, with ureteroscopy and/or pyeloscopy; with removal or manipulation of calculus (ureteral catheterization is included) (66290). Entire finger (871100139). Comments: 03/03/2022 7:53 Rhonda Saxena RN right pinky Social History Social & Psychosocial Habits Alcohol 06/27/2019 Use: Current Frequency: 1-2 times per month Substance Abuse 06/27/2019 Use: Never Tobacco 06/27/2019 Tobacco Use: Never (less than 100 in l Home/Environment 03/03/2022 Domestic Concerns None Living situation: Home/Independent Primary Avid Editor: Self Current Home Treatments None Special Services [...] Vital Signs(last 24 hrs) Last Charted Temp Fvidenqd21.7 DegC (MAR 03 07:55) Heart Rate Wcphdjyer33 bpm (MAR 03 09:00) Resp Rate 19 br/min (MAR 03 09:00) JOK415 mmHg (MAR 03 08:55) DBP87 mmHg (MAR 03 08:55) BMI30.07 (MAR 03 07:55) Measurements from flowsheet : Measurements 03/03/2022 7:55 EDT Height 162.6 cm Admission Weight 79.5 kg Weight Method Stated Gilchrist Body Weight 54.74 kg BSA Admission 1.85 [...] Surgeon SN - CAt - Role Performed Photoengraving Helper 1 SN - CAt - Role Performed TREE GIRDLER SN - CAt - Role Performed Specialty Manufacturing Supervisor 03/03/2022 8:53 EDT [place] History and Physical 03/03/2022 8:09 EDT Continuous [...] #1 We May Share PHI Gilles Grubbs [phone] Designated Person #1 Relationship Spouse Designated Person #2 We May Share PHI Jimmy Grubbs [phone] Designated Person #2 Relationship Daughter Privacy Restrictions Requested None Height 162.6 cm Admission Weight 79.5 kg Weight Method Stated Gilchrist Body Weight 54.74 kg BSA Admission 1.85 [...] Note-Nursing Procedure/Therapy Intake . Assessment and Plan [place] [employer] Anesthesiologists (ASA) physical status classification: Class III. Anesthetic Preoperative Plan Anesthetic technique: MAC. Informed consent: signed by patient. Digitally Signed by SANTIAGO GUTIERREZ on 03/03/2022 09:08 AM [facility]09-23-2022 Note [facility] ADMISSION HISTORY AND PHYSICIAL CHIEF COMPLAINT: HISTORY OF PRESENT ILLNESS: REVIEW OF SYSTEMS: ACTIVE PROBLEMS: (24) Abnormal mammogram (564870496) Abnormal screening computed tomography (CT) of lung (3024888774) Anxiety (72970223) Breast cancer screening (416548325) Cervical cancer screening (6593098694) Colon cancer screening (182768361) Encounter for well adult exam with abnormal findings (405937409) GERD (gastroesophageal reflux disease) (087544399) Hot flashes due to menopause (765644487) Immunization due (203283994) Insomnia (777610882) 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) Nephrolithiasis (118216837) Obesity (0145206466) Post-menopausal (793171140) Pre-diabetes (7001156029) Preoperative evaluation of a medical condition to rule out surgical contraindications (TAR required) (780250255) Restless legs (94754180) Right arm pain (071344811) S/P gastric bypass (2952521744) Screening for cardiovascular condition (398057282) Somatic dysfunction of upper extremity (8121005442) Tobacco non-user (637624313) Viral syndrome (21288757) MEDICATIONS: Active Inpt Meds: None Active PRN Meds: None One Time Meds: None Active IV Meds: Lactated Ringers Infusion 1,000 mL (LR 1,000 mL) Start: 03/03/22 7:52:00 EDT, Rate: 50 mL/hr, 03/03/22 7:52:00 EDT ALLERGIES: (1) NKA FAMILY HISTORY: SOCIAL HISTORY: PHYSICAL EXAM: VITALS: EzhawnMxmyZRWiefwHFZdN7RCX0BplzSw(kg) 03/03 07:5536.7126/87053469YV91/23 79.5 24 Hr Tmax: 36.7 at 03/03 [...] ROBSON PUGH MD on 03/03/2022 08:58 AM [facility]03-14-2022 Evaluation + Plan note Future Scheduled [...] 02/22/22 * Complete Metabolic Panel 08/22/21 * [facility] Lab Send out (Blood Specimens) 11/22/21 Radiology* MA Mammogram Diagnostic Bilateral w/o Juma 01/01/22 * US Breast Right Complete 01/01/22 [facility] 03-14-2022 Evaluation + Plan note Future [...] 02/22/22 * Complete Metabolic Panel 08/22/21 * [facility] Lab Send out (Blood Specimens) 11/22/21 Radiology* CT Thorax w/o Contrast 06/07/22 * MA Mammogram Diagnostic Bilateral w/o Juma 01/01/22 [facility] 12-12-2021 Hospital Discharge instructions Patient Education [...] If needed, more treatment may be started. 6900-8176 [employer] [address] [place] [address] 32977. All rights reserved. This information is not [...] neck Chest pain not caused by coughing 6643-9035 [employer] [address] [place] [address] 86401. All rights reserved. This information is not [...] foods again, start with small amounts of myyr-nn-nbeuqp, low- fat foods. These include apple sauce, [...] increase stomach acid. Don't use aspirin or jgni-yjh-pbpcadx pain and fever medicines, if possible. This includes nonsteroidal anti-inflammatory drugs (NSAIDs). Lose excess weight. Finish eating at least 2 hours before you go to bed or lie down. Raise the head of your bed. 7436-8133 [employer] [address] [place] [address], [place] [address]. All rights reserved. This information is not intended as a substitute for professional medical care. Always follow yourhealthcare professional's instructions. Follow Up Care 05/22/2021 04:01:53 With:FRANKY PEARSON DO Address: [id number] When:2-4 days [facility] Consult note Author Basilio Skinner [facility] Note Date/Time January 16, 2025 6:3 6am [facility] Medical Records Department [address] [place] [address] Pre-Anesthesia Evaluation 01/16/25 0632 MR#: [id number] Acct: [id number] Name: AMANDA GRUBBS Rep #:[id number] : 1970 54 From: Basilio Skinner MD PCP: Dr. Franky Pearson, DO Status:REG SDC Y Race: C Location: [place] [address] ASA Classification* ASA Classification ASA Classification: 2 [...] COLONOSCOPY, EGD Anesthesia History Anesthesia History - lead refiner: Anesthesia History - lead refiner Hx Hospitalization No 01/13/25 13:38 Any Problems [...] take am of surgery PONV PONV - lead refiner: PONV - lead refiner Female No 01/13/25 13:38 HX of Motion [...] 01/16/25 05:54 Respiratory Assessment Respiratory Assessment - lead refiner: Respiratory Tract Infection Hx - lead refiner Hx Respiratory Tract Infection No 01/13/25 13:38 STOP Sleep Apnea STOP Sleep Apnea - lead refiner: STOP Sleep Apnea - lead refiner Hx Hypertension No 01/13/25 13:38 Hx Sleep [...] Tobacco Use History Tobacco Use History - lead refiner: Tobacco Use History - lead refiner Tobacco Use Smoking Status Never smoker 01/13/25 13:38 Hx Tobacco Use No 01/13/25 13:38 Years Smoking Packs Smoked per Day Smoking Cessation Date was within the last 15 years Hx Smoking Cessation Date Hx Smoking Cessation Counseling Hematologic Medial History Hematologic Hx - lead refiner: Hematologic Medical Hx - supervisor nutritional yeast Hx of Blood Transfusion No 01/13/25 13:38 [...] confused, unrespo /Reproduction History /Reproductive History - lead refiner: /Reproductive Hx- lead refiner Hx Now Gestational Age (in weeks): EDC: [...] s 11/26/24 01/15/25 Rx release peg 3350-sod sulf,rnfki-pbk-alg See Rx Instructions PO .COMPLEX #2 11/26/24 [...] MD Cosigner Signature: Date CC: ~ Signed [facility] Work Phone: Consult note Author Frederic Nicole [facility] Note Date/Time January 16, 2025 7:2 0am [facility] Medical Records Department [address] [place] [address] Anesthesia Postop Eval I 01/16/25718 MR#: [id number] Acct: [id number] Name: AMANDA GRUBBS Rep #:[id number] : 1970 54 From: Frederic Nicole PCP: Dr. Franky Pearson, DO Status:REG SDC Y Race: C Location: [place] [address] Anesthesia: Postop Eval I Current Vital Signs [...] Frederic Barney Signature: Date CC: ~ Signed [facility] Work Phone: Evaluation + Plan note Future Appointments Appointment Date:05/31/2021 08:30:00 AM Scheduled Provider:FRANKY PEARSON DO Location:[facility] Appointment Type:PC OV Follow Up Appointment Date:06/20/2021 08:30:00 AM Scheduled Provider: Location:[facility] Appointment Type:US Breast Right Complete Future Scheduled Tests Radiology* US Breast Right Complete 06/20/21 [facility] Evaluation + Plan note Future Appointments Appointment Date:08/31/2021 08:30:00 AM Scheduled Provider:FRANKY PEARSON DO Location:[facility] Appointment Type:PC OV Follow Up Future Scheduled Tests Radiology* CT Thorax w/o Contrast 06/28/21 [facility] Evaluation + Plan note Future Appointments Appointment Date:08/31/2021 08:30:00 AM Scheduled Provider:FRANKY PEARSON DO Location:[facility] Appointment Type:PC OV Follow Up Future Scheduled Tests Radiology* MA Mammogram Diagnostic Bilateral w/o Juma 01/01/22 * US Breast Right Complete 01/01/22 [facility] Evaluation + Plan note Future Appointments Appointment Date:05/30/2022 09:00:00 AM Scheduled Provider:FRANKY PEARSON DO Location:[facility] Appointment Type:PC OV Future Scheduled [...] 08/22/21 * Complete Metabolic Panel 08/22/21 * [facility] Lab Send out (Blood Specimens) 11/22/21 Radiology* US Breast Right Limited 08/08/22 * CT Thorax w/o Contrast 06/07/22 * MA Mammogram Diagnostic Bilateral w/o Juma 01/01/22 [facility] Evaluation + Plan note Future Appointments Appointment Date:05/30/2022 09:00:00 AM Scheduled Provider:FRANKY PEARSON DO Location:[facility] Appointment Type:PC OV Diagnostic Tests Pending * Zinc Level 04/26/22 * Vitamin B1 (Thiamine), Whole Blood 04/26/22 Future Scheduled Tests Laboratory* Ferritin 11/22/21 * Folate Level 08/22/21 * Vitamin B12 Level 11/22/21 * Zinc Level 11/22/21 * [facility] Lab Send out (Blood Specimens) 11/22/21 Radiology* US Breast Right Limited 08/08/22 * CT Thorax w/o Contrast 06/07/22 * MA Mammogram Diagnostic Bilateral w/o Juma 01/01/22 [facility] Evaluation + Plan note Future Appointments Appointment Date:08/24/2022 08:00:00 AM Scheduled Provider:FRANKY PEARSON DO Location:[facility] Appointment Type:PC Wellness Annual Future Scheduled Tests Laboratory* Ferritin 11/22/21 * Folate Level 08/22/21 * Vitamin B12 Level 11/22/21 * Zinc Level 11/22/21 * [facility] Lab Send out (Blood Specimens) 11/22/21 Radiology* US Breast Right Limited 08/08/22 * CT Thorax w/o Contrast 06/23/23 * MA Mammogram Diagnostic Bilateral w/o Juma 01/01/22 [facility] Evaluation + Plan note Future Appointments Appointment Date:08/24/2022 08:00:00 AM Scheduled Provider:FRANKY PEARSON DO Location:[facility] Appointment Type: Wellness Annual Future Scheduled Tests Laboratory* Ferritin 11/22/21 * Vitamin B12 Level 11/22/21 * Zinc Level 11/22/21 * [facility] Lab Send out (Blood Specimens) 11/22/21 Radiology* CT Thorax w/o Contrast 06/23/23 * MA Mammogram Diagnostic Bilateral w/o Juma 01/01/22 [facility] Evaluation + Plan note Future Appointments Appointment Date:11/29/2022 08:00:00 AM Scheduled Provider:FRANKY PEARSON DO Location:[facility] Appointment Type:PC OV Future Scheduled [...] MA Mammogram Diagnostic Bilateral w/o Juma 02/09/23 [facility] Evaluation + Plan note Future Appointments Appointment Date:09/13/2022 08:00:00 AM Scheduled Provider: Location:[facility] Appointment Type:CV Procedure - AOH Echo Appointment Date:09/19/2022 07:45:00 AM Scheduled Provider: Location:[facility] Appointment Type:HL Plain Stress Test Appointment Date:11/29/2022 08:00:00 AM Scheduled Provider:FRANKY PEARSON DO Location:[facility] Appointment Type:PC OV Diagnostic Tests Pending * Vitamin B1 (Thiamine), Whole Blood 09/02/22 * Zinc Level 09/02/22 Future Scheduled Tests Laboratory* Ferritin 11/22/21 * Vitamin B12 Level 11/22/21 * Zinc Level 11/22/21 * [facility] Spec[facility] 11/22/21 Radiology* US Breast Right Limited 02/09/23 * BD Bone Density DEXA Axial Skeleton 12/09/22 * CT Thorax w/o Contrast 06/23/23 * MA Mammogram Diagnostic Bilateral w/o Juma 01/01/22 * MA Mammogram Diagnostic Bilateral w/o Juma 02/09/23 [facility] Evaluation + Plan note Future Appointments Appointment Date:09/19/2022 07:45:00 AM Scheduled Provider: Location:[facility] Appointment Type:HL Plain Stress Test Appointment Date:11/29/2022 08:00:00 AM Scheduled Provider:FRANKY PEARSON DO [facility] Appoint[facility] Type:PC OV Future Scheduled Tests Laboratory* Ferritin 11/22/21 * Vitamin B12 Level 11/22/21 * Zinc Level 11/22/21 * [facility] Lab Send out (Blood Specimens) 11/22/21 Radiology* US Breast Right Limited 02/09/23 * BD Bone Density DEXA Axial Skeleton 12/09/22 * CT Thorax w/o Contrast 06/23/23 * MA Mammogram Diagnostic Bilateral w/o Juma 01/01/22 * MA Mammogram Diagnostic Bilateral w/o Juma 02/09/23 [facility] Evaluation note* Diagnosis Pre-diabetes- Primary Other [...] acute Back pain noneactive Maxillary sinusitis acute [facility] Work Phone: Evaluation note* Diagnosis Onset Date Resolution Status Maxillary sinusitis acute [facility] Work Phone: Evaluation noteNo assessment information available [facility] Work Phone: evaluation note* Diagnosis Pre-diabetes- Primary Other abnormal glucose S/P bariatric surgery Weight gain Other symptoms concerning nutrition, metabolism, and development BMI 32.0-32.9,adult Class 1 obesity with serious comorbidity and body mass index (BMI) of 32.0 to 32.9 in adult, unspecified obesity type documented in this encounter [facility] Author Rock Friend [facility] Note Date/Time January 16, 2025 6:4 0am [facility] Medical Records Department [address] [place] [address] History & Physical Exam 01/16/25 0638 MR#: [id number] Acct: [id number] Name: AMANDA GRUBBS Rep #:[id number] : 1970 54 From: Rock Pineda DO PCP: Dr. Franky Pearson DO Status:[facility] Location: [address] - General General Date of Admission: 01/16/25 Date of Service: 01/16/25 Chief Complaint: abdominal pain, bloating, N/V, bleeding HPI Narrative AMADNA GRUBBS, is a 54 F who presents [...] shakes very little protein and fiber intake [facility] Medical History Kidney stones Wears glasses Wears [...] s 11/26/24 01/15/25 Rx release peg 3350-sod sulf,fhyvx-hup-jaj See Rx Instructions PO .COMPLEX #2 11/26/24 [...] rectal pain 30 grams 0RF peg 3350-sod sulf,qwef-ryt-ujv 178.7-7.3-0.5 gram (Suflave) as directed for split [...] Franky Pearson DO; Rock Pineda DO~ Signed 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 Advance Directives and Living Will Power of Labor And Delivery Registered Nurse Latest Code Status on File Code Status Date Activated Date Inactivated Comments Full Code 08/30/2018 12:11 PM 08/30/2018 4:55 PM Full Code 04/09/2018 8:24 AM 04/10/2018 2:44 PM Full Code 04/08/2018 7:00 PM 04/09/2018 8:24 AM Full Code 04/08/2018 11:06 AM 04/08/2018 6:41 PM Full Code 11/27/2017 7:08 AM 11/27/2017 4:38 PM Documents on File Type Date Recorded 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 Yes January 13, 2025 1:38pm Name of Medical Power of Labor And Delivery Registered Nurse January 13, 2025 1:38pm Hospital Course Note [...] a 47 y.o. female who presented to [facility] on 04/08/2018 for elective LRYGB. She tolerated [...] DATE OF DUR: 04/08/2018 SURGEON: Rolan Jordan ADVICE NURSE: Ruben Truong MD PREOPERATIVE DIAGNOSIS: ? SANDY [...] OF PROCE DUR: 04/08/2018 SURGEON: Rolan Jordan ADVICE NURSE: Ruben Truong MD PREOPERATIVE DIAGNOSIS: ? SANDY [...] section and content) DATE CREATED AUTHOR 05/18/2018 [facility] DATE CREATED AUTHOR AUTHOR'S ORGANIZ ATION 03/31/2019 [facility] DATE CREATED AUTHOR AUTHOR'S ORGANIZ ATION 01/01/2020 [facility] DATE CREATED AUTHOR AUTHOR'S ORGANIZ ATION 02/03/2020 [facility] [place] DATE CREATED AUTHOR AUTHOR'S ORGANIZ ATION 03/16/2020 [facility] DATE CREATED AUTHOR AUTHOR'S ORGANIZ ATION 09/21/2022 [facility] ([place] DATE CREATED AUTHOR AUTHOR'S ORGANIZ ATION 01/17/2023 [facility] DATE CREATED AUTHOR AUTHOR'S ORGANIZ ATION 03/04/2025 [facility] Care Team (unrecognized sect ion and content) Personnel Name: FRANKY PEARSON DO Address: Address: [address] [place] [address]- Care Team Personnel Name: FRANKY PEARSON DO Position: P4 Physician - Primary Care Member Role: Primary Care Physician Address: Address: [address] [place] [address]- [place] Care Team Related Persons Name: JIMMY GRUBBS Address: Home [address] [place], [place] [phone] Address: Temporary [address] [place], [place] [id number] Name: MELBA GRUBBS Address: Home [address] [place], [place] [phone] [place] Address: Temporary [address] [place], [place] [phone] Name: GILLES GRUBBS Address: Home [address] [place], [place] [phone] Care Team Personnel Name: FRANKY PEARSON DO Position: P4 Physician - Primary Care Med Service: Active Provider Member Role: Primary Care Physician Address: Address: [address] [place] [address] [place] Care Team Related Persons Name: JIMMY GRUBBS Address: Home [address] [place], [place] [id number] Address: Temporary [address] [place], [place] [phone] Name: MELBA GRUBBS Address: Home [address] [place] [phone] [place] Address: Temporary [address] [place], [place] [phone] Name: GILLES GRUBBS Address: Home [address] [place], [place] [phone] Care Team Personnel Name: FRANKY PEARSON DO Position: P4 Physician - Primary Care Member Role: Primary Care Physician Address: Address: [address] [place] [address]- [place] Care Team Related Persons Name: MELBA GRUBBS Address: Home [address] [place], [place] [phone] [place] Address: Temporary [address] [place], [place] [phone] Name: GILLES GRUBBS Address: Home [address] [place], [place] [phone] Care Team Personnel Name: FRANKY PEARSON DO Position: P4 Physician - Primary Care Member Role: Primary Care Physician Address: Address: [address] [place] [address] [place] Care Team Related Persons Name: MELBA GRUBBS Address: Home [address] [place], [place] [phone] [place] Address: Temporary [id number] [place] [phone] Name: GILLES GRUBBS Address: Home [address] [place] [phone] Care Team Personnel Name: FRANKY PEARSON DO Position: P4 Physician - Primary Care Member Role: Primary Care Physician Address: Address: [address] [place] [address] [place] [address]- Care Team Related Persons Name: MELBA GRUBBS Address: Home [phone] [place] [phone] [place] Address: Temporary [address] [place] [phone] Name: GILLES GRUBBS Address: Home [id number] [place] [phone] Reason for Visit (unrecogniz ed section and content) Reason Comments Bariatrics Post Op Follow-up DE POP 03/12 02/26 Reason Onset Date Comments Appointment 01/16/2023 Reason Comments Bariatrics Post Op Follow-up POP D/E FU Care Teams (unrecognized sec tion and content) Shorthand Teacher Relationship Specialty Start Date End Date Rio Aburto DO [address] [place] [address] PCP - General 06/25/17 Shorthand Teacher Relationship Specialty Start Date End Date Rio Aburto DO [address] [place] [address] PCP - General 06/25/17 Team Status: Active Member Role Status Dates Dr. Rio Aburto DO Family Provider Active Dr. Franky Pearson DO Primary Care Provider Active Team Status: Inactive Member Role Status Dates Dr. Yessi Mcqueen DC Attending Provider Active Team Status: Inactive Member Role Status Dates Rolan Valdes REAL ESTATE ATTORNEY, REAL ESTATE ATTORNEY-C Attending Provider Active Team Status: Inactive Member [...] Primary Care Provider, Attendin g Provider Active Shorthand Teacher Relationship Specialty Start Date End Date Rio Aburto DO [address] [place] [address] PCP - General 06/25/17 Team Status: Inactive [...] End: August 19, 2024 Rolan Valdes NP REAL ESTATE ATTORNEY-C Referring Provider Active S tart: August 19, [...] BE BASED ON THE PRIMARY CLINICAL RECORDS. [facility] [employer] provides no warranty or guarantee of the accuracy or completeness of information in this document.
== END | disposition home or self-care (01) ==
LOC: SL 19:59
PROVIDERS: PCP Student in an Organized Health Care Education/Training Program; Referring Provider Student in an Organized Health Care Education/Training Program; Visit Provider Student in an Organized Health Care Education/Training Program
DX: G47.33 Obstructive sleep apnea (adult) (pediatric) (principal)
CPT/HCPCS: 95810

== ENCOUNTER → 2025-05-04 | Outpatient (CLI) | payer OTHER, SELFPAY ==
--- NOTE | 2025-05-04 13:56 | RAD_ITS ---
PROCEDURE: MASTOIDS MIN 3 VEWS/SIDE 05/04/2025 REASON FOR EXAM: FOREIGN BODY TO LEFT TRAGUS TECHNIQUE: Procedure Code: RADMAS Modality: DX Procedure: MASTOIDS MIN 3 VEWS/SIDE COMPARISON: None FINDINGS: Bones: Unremarkable Soft tissues: No radiopaque foreign body. Other: Piercing in the right ear. RAD/Mastoids Min 3 Vews/Side IMPRESSION: Piercings in the right ear. Reading Location: [place] [address]
--- OUTSIDE RECORDS SUMMARY | 2025-05-04 18:38 | XMS RPT_ITS | CCD ---
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 Name Role Phone Franky Pearson Primary Care Provider Unavailabl e BEDADAM SIMPSON Admitting Unavailable BEDDELLADAM Attending Unavailable AA REQUESTED, NEW Primary Care Unavailable LANIE LUNA Consulting Unavailable NANDINI VILLEGAS Consulting Unavailable BARBARADELLADAM Admitting Unavailable BEDDELLADAM Attending Unavailable AA REQUESTED, NEW Primary Care Unavailable KATHERINE CANTOR, ACID LOADER Admitting Unavaila ble KATHERINE CANTOR E, ACID LOADER Attending Unavaila ble AA REQUESTED, NEW Primary Care Unavailable Franky Pearson Primary Care Provider Unavailabl e LILI MIKE, FRANKY Primary Care Physician [phone] Rio Aburto DO Primary Care Provider [phone] LILI MIKE, FRANKY Attending Unavailable HALKO DO, [...] Care Unavailable LINDA MARTINEZ MD Attending Unavailable ANN-MARIEKO DO, FRANKY Primary Care Unavailable SHAYNA ANDRADE Attending Unavailable RIO ABURTO Primary Care Unavailable LOIDA, SHAYNA Attending Unavailable LOIDA, SHAYNA Attending Unavailable LOIDA, SHAYNA Attending Unavailable RIO ABURTO Primary Care Unavailable Rio Aburto DO Primary Care Provider [phone] Dr. Yessi Mcqueen Attending Provider Keisha ACID LOADER, ACID LOADER-C Rolan Polk Attending Provider Dr. Allan Coleman Attending Provider Dr. Allan Coleman Attending Provider Lili MIKE, Dr. Bauer Primary Care Provider Lili MIKE, Dr. Bauer Referring Provider Wen ACID LOADER-C, Jose M Attending Provider Nura ACID LOADER-C, Moon Melissa Attending Provider Keisha ACID LOADER-C, Rolan Polk Referring Provider Charisse JANE, Dr. Dickson Attending Provider Kyle ACID LOADER-CKiersten Attending Provider Lili MIKE, Dr. Bauer Primary Care Provider Lili MIKE, Dr. Bauer Referring Provider Miriam MIKE, Dr. Wilkerson Attending Provider Miriam MIKE, Dr. Wilkerson Other Provider [phone] Lili MIKE, Dr. Bauer Primary Care Provider Lili MIKE, Dr. Bauer Referring Provider Dossi DC, Dr. Dickson Attending Provider Angus Reyes Attending Provider Jolie Burns Attending Provider Virginia ORTIZ, Dr. Lemus Attending Provider Dr. Franky Pearson DO Primary Care Physician Kiersten Ford Attending Physician Charisse JANE, Dr. Dickson Attending Physician Miriam MIKE, Dr. Wilkerson Attending Physician Miriam MIKE, Dr. Wilkerson Nurse Practitioner Angus Reyes Attending Physician Jolie Burns Attending Physician [phone] Allan Coleman MD Attending Physician Dr. Franky Pearson DO Attending Physician Halko, Franky Referring Unavailable Halko, Franky Primary Care Unavailable Halko, Franky Attending Unavailable Halko, Franky Referring Unavailable Halko, Franky Primary Care Unavailable Rock Pineda Attending Unavailable Allan Coleman Attending Unavailable Halko, Franky Primary Care Unavailable Halko, Franky Primary Care Unavailable Hollingsworth, Franky Attending Unavailable Hollingsworth, Franky Referring Unavailable Halko, Franky Referring Unavailable Halko, Franky Primary Care Unavailable Santiago Og Attending Unavailable Hans Rivera Attending Unavailable Halko, Franky Referring Unavailable Halko, Franky Primary Care Unavailable Halko, Franky Referring Unavailable Halko, Franky Primary Care Unavailable Angus Reyes Attending Unavailable Halko, Franky Referring Unavailable Jose M Carver Attending Unavailable Halko, Franky Primary Care Unavailable Hans Rivera Attending Unavailable Halko, Franky Referring Unavailable Halko, Franky Primary Care Unavailable Halko, Franky Primary Care Unavailable Hollingsworth, Franky Consulting Unavailable Hollingsworth, Franky Referring Unavailable Allan Coleman Attending Unavailable Kiersten Wright Attending Unavailable Halko, Franky Referring Unavailable Halko, Franky Primary Care Unavailable Moon Lyman Attending Unavailable Rolan Valdes NP Referring Unavailable Halko, Franky Primary Care Unavailable Yessi Mcqueen Attending Unavailable Halko, Franky Referring Unavailable Halko, Franky Primary Care Unavailable Jolie Joseph Attending Unavailable Halko, Franky Referring Unavailable Halko, Franky Primary Care Unavailable Halko, Franky Referring Unavailable Halko, Franky Primary Care Unavailable Angus Reyes Attending Unavailable Hans Rivera Attending Unavailable Halko, Franky Referring Unavailable Halko, Franky Primary Care Unavailable Halko, Franky Referring Unavailable Halko, Franky Primary Care Unavailable Rock Pineda Consulting Unavailable Rock Pineda Attending Unavailable Criselda Muñoz Attending Unavailable Halko, Franky Primary Care Unavailable Halko, Franky Primary Care Unavailable Rock Pineda Attending Unavailable Halko, Franky Referring Unavailable Halko, Franky Primary Care Unavailable Halko, Franky Attending Unavailable Angus Reyes Attending Unavailable Halko, Franky Primary Care Unavailable [...] Referring Unavailable Halko, Franky Primary Care Unavailable PraSantiago polk Attending Unavailable Kiersten Wright Attending Unavailable Halko, Franky Referring Unavailable Halko, Franky Primary Care Unavailable Halko, Franky Primary Care Unavailable PraSantiago polk Attending Unavailable Prah, Santiago Referring Unavailable Halko, Franky Referring Unavailable Angus Reyes Attending Unavailable Halko, Franky Primary Care Unavailable Keisha ACID LOADER, Rolan Polk Attending Unavailable Keisha ACID LOADER, Rolan Polk Referring Unavailable Halko, Franky Primary Care Unavailable Allergies Allergy Classification Reported Allergen(s) Allergy Type Date of Onset Reaction(s) Facility (1 source) NSAIDs Drug allergy (disorder) [facility] Repository Medications Current Medications Medication [...] Status: Ordered acetaminophen 325 mg oral tablet (18 sources) Start: 11-26-2024 take 1 tablet by mouth once as needed for pain Start: 02-18-2019 acetaminophen 500 mg oral tablet Dose : 1,000 mg = 2 tab(s), Oral, q6hr, PRN for pain, # 100 tab(s), 0 Refill(s) Start Date: 02/18/19 Status: Ordered brompheniramine maleate 0.4 mg/ml / dextromethorphan hydrobromide 2 mg/ml / pseudoephedrine hydrochloride 6 mg/ml oral solution (1 source) alpha-Adrenergic Agonist, Uncompetitive N-yiodcn-D-aspartate Receptor Antagonist, Sigma-1 Agonist Start: 08-26-2022 End: 09-02-2022 take 1 dose by mouth four times daily as needed Bromfed DM oral syrup Dose = 10 mL, Oral, QID, PRN for cold symptoms, X 7 day(s), # 120 mL, 0 Refill(s), [facility]: [id number], Productive cough, 160, cm, 08/24/22 8:00:00 EDT, Height Start Date: 08/26/22 Stop Date: 09/02/22 Status: Ordered buPROPion hydrochloride 75 mg oral tablet (20 sources) Aminoketone Start: 11-26-2024 Start: 01-16-2023 End: 04-15-2024 take 1 tablet by mouth once daily Bupropion Hcl (Wellbutrin Sr) 100 mg tablet sustained-release 12 hr Discontinued 100 mg PO DAILY January 16, 2023 12:00am April 15, 2024 12:06pm Start: 03-01-2021 End: 02-20-2023 buPROPion (Wellbutrin) 100 M G tablet 100 mg. 0 11/22/2021 Active take 1 tablet by neha twice daily buPROPion (WELLBUTRIN) 75 MG tablet [...] qDay, # 90 tab(s), 0 Refill(s), Pharmacy: [facility], 164, cm, 02/28/22 8:08:00 EDT, Height Start Date: 02/28/22 Stop Date: 05/29/22 Status: Ordered cyclobenzaprine hydrochloride 10 mg oral tablet (1 source) Muscle Relaxant Start: 02-18-2021 cyclobenzaprine 10 mg oral tablet 0 Refill(s) Start Date: 02/18/21 Status: Ordered Diltiazem 2% / Lidocaine 5% Ointment (Compound) ointment (11 sources) Start: 11-26-2024 Diltiazem 2% / Lidocaine [...] glucometer., # 1 EA, 0 Refill(s), Pharmacy: [facility], Hypoglycemia, 164, cm, 04/04/22 8:05:00 EDT, Height, 86.1 Start Date: 04/04/22 Status: Ordered Start: 04-04-2022 DME MISCellane ous See Instructions, dx E16.2; check BGT due to hypoglycemic symptoms, up to once per day; dispense 100 EtOH wipes, # 100 EA, 0 Refill(s), Pharmacy: [facility], 164, cm, 04/04/22 8:05:00 EDT, Height, 86.1 Start Date: 04/04/22 Status: Ordered docusate sodium 100 mg oral capsule (11 sources) Start: 11-26-2024 take 1 capsule by mouth twice daily estradiol 0.5 mg oral tablet (13 sources) Estrogen Start: 08-24-2022 estradiol 0.5 mg oral tablet Dose : 0.5 mg = 1 tab(s), Oral, qDay, # 90 tab(s), 1 Refill(s), Pharmacy: [facility], 160, cm, 08/24/22 8:00:00 EDT, Height, kg, 08/24/22 8:00:00 EDT, Dosing Weight Start Date: 08/24/22 Status: Ordered Start: 11-22-2021 estradiol 0.5 mg oral tablet Dose : 0.5 mg = 1 tab(s), Oral, qDay, # 90 tab(s), 1 Refill(s), Pharmacy: [facility], 163.5, cm, 11/22/21 8:20:00 EDT, Height Start Date: 11/22/21 Status: Ordered Start: 03-25-2021 Estrace 0.5 mg oral tablet Dose : 0.5 mg = 1 tab(s), Oral, qDay, # 90 tab(s), 3 Refill(s), Pharmacy: [facility], 162.6, cm, 02/18/21 8:44:00 EDT, Height, kg, 02/18/21 8:44:00 EDT, Dosing Weight Start Date: 03/25/21 Status: Ordered fexofenadine hydrochloride 60 mg oral tablet (11 sources) Histamine-1 Receptor Antagonist Start: 11-26-2024 take 1 tablet by mouth twice daily as needed levoFLOXacin 500 mg oral tablet (1 source) [...] mouth once daily as needed for anxiety Start: 01-16-2023 End: 11-26-2024 take 1 tablet [...] 11/23/21, # 30 tab(s), 2 Refill(s), Pharmacy: [facility], Anxiety, 163.5, cm, 11/22/21 8:20:00 EDT, Height, 83.3, kg, 11/22/21 8:... Start Date: 11/22/21 Stop Date: 02/20/22 Status: Ordered Start: 05-31-2021 End: 08-29-2021 LORazepam 0.5 mg oral tablet Dose : 0.5 mg = 1 tab(s), Oral, qDay, PRN as needed for anxiety, oarrs appropriate, to be filled on or after 06/10/21, # 30 tab(s), 2 Refill(s), [facility] [address] Anxiety, 162.6, cm, 02/18/21 8:44:00 EDT, Height, 77.3, kg, 02/18/21 8:... Start Date: 05/31/21 Stop Date: 08/29/21 Status: Ordered Start: 03-01-2021 End: 05-30-2021 LORazepam 0.5 mg oral tablet Dose : 0.5 mg = 1 tab(s), Oral, qDay, PRN as needed for anxiety, oarrs appropriate, to be filled on or after 03/01/21, # 30 tab(s), 2 Refill(s), [facility] [address] Anxiety, 162.6, cm, 02/18/21 [...] Start Date: 02/18/19 Status: Ordered Multivitamin tablet (20 sources) Start: 11-26-2024 Start: 11-26-2024 Multivitamin t ablet Active 1 {tbl} PO daily November 26, 2024 12:00am Start: 04-21-2024 End: 05-05-2024 Multivitamin tablet Disconti nued 1 {tbl} PO EVERY MORNING April 21, 2024 1:00am May 05, 2024 12:36pm ondansetron 4 mg oral tablet (20 sources) Serotonin-3 Receptor Antagonist Start: 03-05-2025 take 1 tablet by mouth every four hours as needed for nausea and vomiting Start: 03-05-2025 take 1 tablet by neha th every four hours as needed for nausea and vomiting Start: 04-15-2024 End: 11-26-2024 take 1 tablet [...] 0 Refill(s) Start Date: 05/22/21 Status: Ordered ondansetron 4 mg oral tablet , disintegrating [...] 05/22/21 Status: Ordered Peg 3350-Sod Sulf,Chlr-Pot-M ag (4 sources) Start: 03-05-2025 Start: 11-26-2024 End: 01-21-2025 Peg 3350-Sod Sulf,Chlr-Pot-M ag (Suflave) 178.7-7.3-0.5 gram recon soln Discontinued 0 [...] qHS, # 90 tab(s), 1 Refill(s), Pharmacy: [facility], 160, cm, 11/23/20 15:08:00 EDT, Height, kg, 11/23/20 15:08:00 EDT, Dosing Weight Start Date: 11/23/20 Stop Date: 05/22/21 Status: Ordered predniSONE 20 mg oral tablet (1 source) Start: 08-26-2022 End: 08-31-2022 prednisone 20mg tab (TAPER) Dose : 40 mg = 2 tab(s), Oral, qDay, X 5 day(s), # 10 tab(s), 0 Refill(s), 08/31/22 9:59:00 EDT, Pharmacy: [id number], Productive cough, 160, cm, 08/24/22 8:00:00 EDT, [...] per week. 1.5 mL 0 05/10/2022 Active Sod Picosulf-Mag Ox-Citric Ac (2 sources) Start: 03-05-2025 take 1 mL by mouth once daily Tirzepatide (Mounjaro) 2.5 mg/0.5 mL pen injector (9 sources) Start: 11-26-2024 Tirzepatide (Mounjaro) 2.5 mg/0.5 mL pen injector Active 2.5 mg SC EVERY WEEK November 26, 2024 12:00am for 4 weeks traZODone hydrochloride 50 mg oral tablet (7 sources) Serotonin Reuptake Inhibitor Start: 01-29-2025 VITAMIN D, CHOLECALCIFEROL, PO (4 sources) Start: [...] qDay, # 90 tab(s), 1 Refill(s), Pharmacy: [facility], 160, cm, 08/24/22 8:00:00 EDT, Height, kg, 08/24/22 8:00:00 EDT, Dosing Weight Start Date: 08/24/22 Stop Date: 02/20/23 Status: Ordered Start: 05-09-2022 End: 11-05-2022 Vitamin D3 125 mcg (5000 int l units) oral tablet Dose : 125 mcg = 1 tab(s), Oral, qDay, # 90 tab(s), 1 Refill(s), Pharmacy: [facility], 164, cm, 04/04/22 8:05:00 EDT, Height Start Date: 05/09/22 Stop Date: 11/05/22 Status: Ordered Completed/Discontinued Medications Medication Drug Class(es) Dates Sig (Normalized) Sig (Original) acetaminophen 300 mg / butalbital 50 mg / caffeine 40 mg oral capsule (20 sources) Barbiturate, Central Nervous System Stimulant, Methylxanthine [...] needed, # 30 cap(s), 2 Refill(s), Pharmacy: [facility], 160, cm, 08/24/22 8:00:00 EDT, Height, kg, 08/24/22 8:00:00 EDT, Dosing Weight Start Date: 08/24/22 Status: Ordered Start: 06-15-2022 take 1 capsule by mouth every four hours as needed acetaminophen/butalbital/caffeine 325 mg -50 mg-40 mg oral capsule Dose = 1 cap(s), Oral, q4h, PRN as needed, # 30 cap(s), 0 Refill(s), [facility] #[id number], 164, cm, 05/30/22 8:50:00 EST, Height Start Date: 06/15/22 Status: Ordered acetaminophen 325 mg / HYDROcodone bitartrate 5 mg oral tablet (3 sources) Opioid Agonist Start: 05-22-2021 End: 05-25-2021 take 1 tablet by mouth every six hours as needed for pain Rindge 325- 5 mg oral tablet Dose = 1 tab(s), Oral, q6h, PRN as needed for pain, # 10 tab(s), 0 Refill(s), Abdominal pain, 77.3 Start Date: 05/22/21 Stop Date: 05/25/21 Status: Ordered amoxicillin 500 mg oral tablet (11 sources) Penicillin-class Antibacterial Start: 07-23-2024 End: 08-19-2024 [...] {tbl} PO TWICE A DAY 14 7 0 May 13, 2023 1:00am May 19, 2023 1:00am May 20, 2023 1:04am Start: 05-13-2023 End: 05-20-2023 take 1 tablet by mouth twice daily Amoxicillin-Pot Clavulanate Discontinued 1 TABLET PO TWICE A DAY 14 7 May 13, 2023 1:00am May 20, 2023 1:04am Start: 05-22-2021 End: 05-29-2021 take 1 tablet by mouth every twelve hours amoxicillin-clavulanate 875 mg-125 mg oral tablet 1 tab(s), Oral, q12h, X 7 day(s), # 14 tab(s), 0 Refill(s), 05/29/21 6:03:00 EST, Abdominal pain, 77.3 Start Date: 05/22/21 Stop Date: 05/29/21 Status: Ordered apremilast 30 mg oral tablet (20 sources) Start: 05-05-2024 End: 06-13-2024 take 1 [...] # 6 tab(s), 0 Refill(s), [facility]: [facility] #[id number], Productive cough, 160, cm, 08/24/22 8:00:00 EDT, Height, 79 Start Date: 08/26/22 Stop Date: 08/31/22 Status: Ordered benzonatate 100 mg oral capsule (11 sources) Non-narcotic Antitussive Start: 06-27-2024 End: 11-26-2024 [...] 02/18/19 Status: Ordered take 1 capsule by [facility] once daily Biotin 2500 MCG CAPS Indications: Supplement Take 2,500 mcg by mouth daily 0 Active calcium glucarate 500 mg ora l capsule (20 sources) Start: 04-21-2024 End: 11-26-2024 Calcium Glucarate 500 mg cap wendy Discontinued 1 NMA PO THREE TIMES A DAY April 21, 2024 2:20pm November 26, 2024 9:49am Start: 04-15-2024 End: 04-21-2024 Calcium Glucarate 500 mg cap wendy Discontinued 1 NMA PO TWICE A DAY April 15, 2024 1:00am April 21, 2024 2:26pm cholecalciferol 0.01 mg oral capsule (15 sources) Vitamin D Start: 01-16-2023 End: 11-26-2024 take 1 capsule by mouth once daily Cholecalciferol (Vitamin D3) 10 mcg (400 unit) capsule Discontinued 10 ug PO DAILY January 16, 2023 12:00am November 26, 2024 9:49am ciprofloxacin 500 mg oral tablet (6 sources) Quinolone Antimicrobial Start: 02-02-2025 End: 03-05-2025 take 1 tablet by mouth twice daily Ciprofloxacin Hcl 500 mg tablet Discontinued 500 mg PO TWICE A DAY 10 0 February 02, 2025 12:00am March 05, 2025 8:36am doxycycline monohydrate 100 mg oral capsule (11 sources) Tetracycline-class Drug Start: 08-13-2024 End: 08-20-2024 take 1 capsule by mouth twice daily Doxycycline Monohydrate 100 mg capsule Discontinued 100 mg PO TWICE A DAY 14 7 0 August 13, 2024 1:00am August 19, 2024 12:00am August 20, 2024 12:11am estrogens, conjugated (penitentiary) 0.3 mg oral tablet (15 sources) Estrogen Start: 01-16-2023 End: 05-05-2024 take 1 tablet by mouth once daily Conjugated Estrogens 0.3 mg tablet Discontinued 0.3 mg PO DAILY January 16, 2023 12:00am May 05, 2024 12:35pm cyclically ferrous sulfate 325 mg oral tablet (11 sources) Start: 04-15-2024 End: 11-26-2024 take 1 [...] tab(s), 1 Refill(s), 06/24/21 10:31:00 EST, Pharmacy: [address], 162.6, cm, 02/18/21 8:44:00 EDT, Height, 77.3, kg, 02/18/21 8:44:00 EDT, Dosing Weight Start Date: 06/14/21 Stop Date: 06/24/21 Status: Ordered levothyroxine sodium 0.025 mg oral tablet (20 sources) l-Thyroxine Start: 04-21-2024 End: 01-13-2025 Levothyroxine 25 mcg tablet Discontinued 12.5 ug PO daily April 21, 2024 2:17pm January 13, 2025 1:37pm Start: 04-15-2024 End: 04-21-2024 take 1 tablet by mouth once daily Levothyroxine 25 mcg tablet Discontinued 25 ug PO daily April 15, 2024 1:00am April 21, 2024 2:26pm linaclotide 0.29 mg oral capsule (11 sources) Guanylate Cyclase-C Agonist Start: 11-26-2024 End: 01-29-2025 take 1 capsule by mouth once daily 30 minutes before breakfast Linaclotide (Linzess) 290 mcg capsule Discontinued 290 ug PO EVERY MORNING 90 November 26, 2024 12:00am January 29, 2025 9:11am take once daily 30 minutes before breakfast lubiprostone 0.008 mg oral capsule (7 sources) Chloride Channel Activator Start: 01-29-2025 End: 03-05-2025 take 1 capsule by mouth twice daily Lubiprostone (Amitiza) 8 mcg capsule Discontinued 8 ug PO TWICE A DAY 60 January 29, 2025 12:00am March 05, 2025 9:02am metFORMIN hydrochloride 500 mg oral tablet (20 [...] BID, # 180 tab(s), 1 Refill(s), Pharmacy: [facility], 163.5, cm, 11/22/21 8:20:00 EDT, Height, kg, 11/22/21 8:20:00 EDT, Dosing Weight Start Date: 11/22/21 Stop Date: 05/21/22 Status: Ordered Start: 02-25-2020 End: 05-25-2020 take 1 tablet by mouth twice daily metFORMIN (GLUCOPHAGE-XR) 500 MG extended release tablet Take 1 tablet by mouth 2 times daily 180 tablet 0 02/25/2020 05/25/2020 Active nitrofurantoin, macrocrystals 25 mg / nitrofurantoin, monohydrate 75 mg oral capsule (20 sources) Nitrofuran Antibacterial Start: 01-28-2024 End: 02-04-2024 [...] 10:19am Start: 11-26-2024 take 1 capsule by mo [facility] once daily 30 minutes before breakfast Start: [...] qDay, # 90 cap(s), 1 Refill(s), Pharmacy: [facility], 160, cm, 11/23/20 15:08:00 EDT, Height, kg, 11/23/20 15:08:00 EDT, Dosing Weight Start Date: 11/23/20 Stop Date: 05/22/21 Status: Ordered Start: 04-10-2019 take 1 capsule by mo [facility] once daily omeprazole (PRILOSEC) 20 MG delayed release capsule Take 1 capsule by mouth Daily 30 capsule 5 04/10/2019 Active oseltamivir 75 mg oral capsule (11 sources) Neuraminidase Inhibitor Start: 07-23-2024 End: 07-28-2024 take 1 capsule by mouth twice daily Oseltamivir 75 mg capsule Discontinued 75 mg PO TWICE A DAY 10 5 0 July 23, 2024 1:00am July 27, 2024 1:00am July 28, 2024 1:15am Peg 3350-Sod Sulf,Pdzb-Vql-Lle (Suflave) 178.7-7.3-0.5 gram recon soln (9 sources) Start: 11-26-2024 End: 01-21-2025 Peg 3350-Sod Sulf,Jcvg-Tbh-Gwr (Suflave) 178.7-7.3-0.5 gram recon soln Discontinued 0 PO .COMPLEX 2 0 November 26, 2024 12:00am January 21, 2025 3:10pm as directed for split dose bowel prep Start: 11-26-2024 Peg 3350-Sod S ulf,Wvqk-Nvw-Mut (Suflave) 178.7-7.3-0.5 gram recon soln Active 0 PO .COMPLEX 2 0 November 26, 2024 12:00am as directed for split dose bowel prep Start: 11-26-2024 Peg 3350-Sod S ulf,Kvyh-Qvy-Jmn (Suflave) 178.7-7.3-0.5 gram recon soln Active 0 PO .COMPLEX 2 November 26, 2024 12:00am as directed for split dose bowel prep phenazopyridine hydrochloride 100 mg oral tablet (11 sources) Start: 01-28-2024 End: 05-05-2024 take 1 tablet by mouth three times daily as needed for pain Phenazopyridine 100 mg tablet Discontinued 100 mg PO THREE TIMES A DAY as needed for pain 6 0 January 28, 2024 12:00am May 05, 2024 12:37pm ramelteon 8 mg oral tablet (11 sources) Melatonin Receptor Agonist Start: 11-26-2024 End: 01-13-2025 take 1 tablet by mouth at bedtime Ramelteon (Rozerem) 8 mg tablet Discontinued 8 mg PO AT BEDTIME November 26, 2024 12:00am January 13, 2025 1:37pm rosuvastatin calcium 20 mg oral tablet (11 sources) HMG-CoA Reductase Inhibitor Start: 04-15-2024 End: [...] 4 weeks thiamine 100 mg oral tablet (11 sources) Start: 04-21-2024 End: 05-05-2024 take 1 tablet by mouth once daily Thiamine Hcl (Vitamin B1) 100 mg tablet Discontinued 100 mg PO daily April 21, 2024 1:00am May 05, 2024 12:37pm Tirzepatide (2 sources) Start: 11-26-2024 End: 03-05-2025 Tirzepatide (Mounjaro) 2.5 mg/0.5 mL pen injector Discontinued 2.5 mg SC EVERY WEEK November 26, 2024 12:00am March 05, 2025 8:36am for 4 weeks venlafaxine 75 mg oral tablet (20 sources) Serotonin and Norepinephrine Reuptake Inhibitor Start: [...] Vitamin B Complex (B Complex-Vitamin B12) tablet (15 sources) Start: 01-16-2023 End: 05-05-2024 Vitamin B [...] 11:00pm zinc gluconate 50 mg oral tablet (16 sources) Start: 04-21-2024 End: 11-26-2024 take 1 tablet by mouth once daily Zinc Gluconate 50 mg tablet Discontinued 50 mg PO daily April 21, 2024 1:00am November 26, 2024 9:52am Start: 05-09-2022 End: 02-20-2023 zinc (as gluconate) 50 mg or al tablet Dose : 50 mg = 1 tab(s), Oral, Daily, # 90 tab(s), 1 Refill(s), Pharmacy: [facility], 160, cm, 08/24/22 8:00:00 EDT, Height, kg, 08/24/22 8:00:00 EDT, Dosing Weight Start Date: 08/24/22 Stop Date: 02/20/23 Status: Ordered Problems Active Problems Problem Classification Problem Date Documented Da te Episodic/Chronic Abdominal pain (1 source) Abdominal pain; Translations: [Unspecified abdominal pain] Onset: 1 Episodic Acquired foot deformities (4 sources) Acquired right hallux valgus; Translations: [Hallux valgus (acquired), right foot] 02-06-2025 Chronic Anal and rectal conditions (20 sources) Rectal pain; Translations: [Other specified diseases of anus and rectum] Onset: 5 11-26-2024 Episodic Anxiety disorders (20 sources) Anxiety disorder, unspecified; Translations: [Anxiety] Onset: 0 11-07-2019 Chronic Coronary atherosclerosis and other heart disease (13 sources) Angina pectoris; Translations: [Angina pectoris, unspecified] Onset: 5 04-21-2024 Chronic Diseases of mouth; excluding dental (15 sources) Aphthous ulcer of mouth; Translations: [Recurrent oral aphthae] 01-16-2023 Episodic Esophageal disorders (20 sources) Gastroesophageal reflux disease without esophagitis; Translations: [Gastroesophageal reflux disease] Onset: 0 10-20-2019 Chronic Gastroduodenal ulcer (except hemorrhage) (4 sources) Gastric ulcer; Translations: [Gastric ulcer, unspecified as acute or chronic, without hemorrhage or perforation] 03-05-2025 Chronic Gastrointestinal hemorrhage (20 sources) Rectal hemorrhage; Translations: [Hemorrhage of anus and rectum] Onset: 5 11-26-2024 Episodic Headache; including migraine (3 sources) Migraine 08-24-2022 Chronic Immunizations and screening for infectious disease (13 sources) Encounter for screening for other viral [...] D deficiency, unspecified] Onset: 8 10-17-2017 Chronic Osteoarthritis (4 sources) Osteoarthritis of right knee joint; Translations: [Unilateral primary osteoarthritis, right knee] 02-06-2025 Chronic Other aftercare (1 source) 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; Translations: [OTH JAIL CURRENT DRUG THERAPY] Onset: 0 Episodic Other [...] foot] 02-05-2025 Episodic Other connective tissue disease (4 sources) Metatarsalgia of right foot; Translations: [Metatarsalgia, right foot] 02-06-2025 Episodic Other connective tissue disease (4 sources) Tendonitis of right foot; Translations: [Other enthesopathy of right foot and ankle] 02-06-2025 Episodic Other connective tissue disease (2 sources) Pain in right foot; Translations: [Pain in right foot] 02-05-2025 Episodic Other connective tissue disease (1 source) Pain in right foot; Translations: [Pain in right foot] Onset: 5 Episodic Other gastrointestinal disorders (9 sources) Intestinal malabsorption; Translations: [Intestinal malabsorption, unspecified] Onset: 8 04-17-2018 Chronic Other gastrointestinal disorders (1 source) Irritable bowel syndrome without diarrhea; Translations: [IRRITABLE BOWEL SYND W/O DIARRHEA] Onset: 0 Chronic Other gastrointestinal disorders (20 sources) History of bypass of stomach; Translations: [...] 8 04-08-2018 Chronic Other lower respiratory disease (12 sources) Lower respiratory tract infection; Translations: [Unspecified acute lower respiratory infection] 08-13-2024 Episodic Other lower respiratory disease (12 sources) Solitary nodule of lung; Translations: [Solitary pulmonary nodule] 08-19-2024 Episodic Comment on above: RUL 4.6 mm nodule Other non-traumatic joint disorders (15 sources) Pain in left shoulder; Translations: [Left shoulder pain] 05-31-2023 Episodic Other non-traumatic joint disorders (5 sources) Pain in right knee; Translations: [Right [...] 01-16-2023 Episodic Otitis media and related conditions (11 sources) Acute bilateral otitis media ; Translations: [...] Screening due 08-24-2022 Episodic Residual codes; unclassified (13 sources) Family history of ischemic heart disease; Translations: [Family history of ischemic heart disease and other diseases of the circulatory system] 08-29-2022 Episodic Screening and history of mental health and substance abuse codes (8 sources) Tobacco use and exposure - finding 02-28-2022 Chronic Spondylosis; intervertebral disc disorders; other back problems (20 sources) Backache; Translations: [Dorsalgia, unspecified] Onset: 8 06-27-2017 Episodic Thyroid disorders (12 sources) Hypothyroidism; Translations: [Hypothyroidism, unspecified] Onset: 4 05-05-2024 Chronic Unclassified (13 sources) Cancer cervix screening status 04-07-2020 Unclassified (13 sources) History of bypass of stomach 10-07-2019 Unclassified (20 sources) Patient encounter status 12-30-2019 Unclassified (2 sources) Bariatrics Post Op Follow-up; Translations: [Bariatrics Post Op Follow-up] Onset: 2 Unclassified (2 sources) Weight Management; Translations: [Weight Management] Onset: 2 Urinary tract infections (20 sources) Recurrent urinary tract infection; Translations: [Urinary tract infectious disease] Onset: 5 Episodic Urinary tract infections (10 sources) Urinary tract infections Viral infection (12 [...] Test Name Value Interpretation Reference Range Facility Gastroenterology Visit Repor ton 03-05-2025 Gastroenterology Visit Report [facility] [address] [place] [address] OFFICE VISIT Date of Service: 03/05/25 MR#: [id number] Acct: [id number] Name: AMANDA GRUBBS Rep #: [id number] : 1970 Provider: ANA mendiola Age/Sex: 54/F Location[place] [facility] [place] Status: Signed Intake Vital Signs 01/29/25 09:18 02/06/25 08:21 03/05/25 08:41 Height 5 ft 3 in 5 ft 3 in 5 ft 3 in Weight: 168 lb 4 oz BMI 29.7 BP 123/83 H Respiration 16 Pulse 80 Temp 98.2 F Temp Source Temporal Pulse Oximetry (%) 97 Oxygen Delivery Method room air Intake Visit Reasons: 4 to 6 week follow up Chief Complaint: follow-up constipation Side Sawyer Required: No Accompanied by: Self Is patient in pain?: No Allergies No Known Allergies Allergy (Verified 03/05/25 08:35) Medications ???Medication ???Instructions ???Recorded ???Confirmed ???Type Diltiazem 2% / Lidocaine 5% #30 grams 11/26/24 03/05/25 Rx ointment (compound) acetaminophen 325 mg tablet 325 mg PO ONCE PRN pain 11/26/24 0 03/05/25 History (Tylenol) bupropion HCl 75 mg tablet 75 mg PO TID 11/26/24 03/05/25 His tory docusate sodium 100 mg capsule 100 mg PO BID #60 caps 11/26/24 Rx fexofenadine 60 mg tablet (Becca 60 mg PO BID PRN allergy symptom s 11/26/24 03/05/25 History Allergy) lorazepam 0.5 mg tablet (Ativan) 0.25 mg PO DAILY PRN anxiety 11/2603/05/25 History multivitamin 1 tab PO QDAY 11/26/24 03/05/25 Hi story omeprazole 40 mg capsule,delayed 40 mg PO QDAY #90 caps 11/26/24 Rx release trazodone 50 mg tablet 25 mg PO QHS PRN 01/29/25 03/05/25 History peg 3350-sod sulf,shbft-lya-ter See Rx Instructions PO .COMPLEX #2 03/05/25 03/05/25 Rx 178.7-7.3-0.5-1.12-0.9 gram oral mL soln (Suflave) sod picosulf 10 mg-magnes 3.5 175 ml PO QAM 1 dose #350 mL 03/0503/05/25 Rx gram-citric 12 gram/175 mL oral solution (Clenpiq) PFSH Medical History Recurrent UTI (urinary tract [...] caffeine: Yes HPI HPI Chief Complaint: follow-up constipation Details: OV 02/16/2025 54-year-old female with a history of gastric bypass surgery presenting with chronic constipation, gastric ulcer, and esophageal burning. The chronic constipation is likely multifactorial, coinciding with dietary habits, post-surgical changes, and escalation of GLP-1 therapy. Current management with increased dose omeprazole has shown subjective improvement in esophageal burning. The persistence of constipation necessitates further interventions. Patient Instructions: Decrease Mounjaro Continue Omeprazole 40mg daily Start Amitiza 8mcg once daily Continue stool softener BID Follow-up in 4-6 weeks and will schedule colonoscopy at that time and modify if needed - she discontinued Mounjaro 3 weeks ago - constipation is s a little bit better - now having a BM every 3-4 days - 2 episodes of significant constipation, straining and BRBPR - denies any rectal pain - reports she did not feel good on Amitiza - water intake overall is not great - she has increased her protein intake overall - started Miralax chews, 1 a day The patient is a 54-year-old female presenting with issues of constipation and symptoms suggesting an anal fissure. She reports experiencing improvement in bowel movements, now occurring every three to four days. However, she describes having two episodes of significant constipation (more content not included)... Normal [facility] Vitamin B1, Thiamineon 02-25 VIT B1 THIAMINE 113.9 nmol/L Normal 66.5-200.0 [facility] Comment on above: Order Comment: Test( s) 435710-Yjo. B1, Whole Bloodwas developed and its performance characteristicsdetermined by [employer]. It has not been cleared or approvedby the Food and Drug Administration. Performed By: #### L 501.9985, L506.1001, L3300.8000, L100.0500, L500.4050, L503.6550, L506.0400, L506.0200, L500.4100, L503.0106, L3300.9900, L501.9520 ####[facility] [address] [place], [address] Zinc, Plasma or Serumon 02-09 ZINC,PLASMA/SER 62 ug/dL Normal 44-115 [facility] Comment on above: Order Comment: Test( s) 270316-Baj. B1, Whole Bloodwas developed and its performance characteristicsdetermined by [employer]. It has not been cleared or approvedby the Food and Drug Administration. Result Comment: Dete ction Limit = 5 Performed at: [address] [id number] Casting Assistant: James Herrera MD, Phone: [phone] Performed By: #### L 501.9985, L506.1001, L3300.8000, L100.0500, L500.4050, L503.6550, L506.0400, L506.0200, L500.4100, L503.0106, L3300.9900, L501.9520 ####[facility] [address], [address] Anion gap in Serum or Plasma Ordered By: Franky Pearson on 02-19-2025 Anion gap [Moles/Vol] 11 mmol/L 5-15 [facility] BUN/creatinine ratioOrdered By: Franky Pearson on 02-19-2025 Urea nitrogen/Creatinine [Mass ratio] 9.8 mg/mg Low 10-20 [facility] Bilirubin, totalOrdered By: Franky Pearson on 02-19-2025 Bilirubin [Mass/Vol] 0.32 mg/dL 0.00-1.30 [facility] CBC-Complete Blood Cnt No Di ffon 02-19-2025 Erythrocyte distribution width (RBC) [Ratio] 12.7 % Normal 11.6-14.6 [facility] Comment on above: Performed By: #### L 501.9985, L506.1001, L3300.8000, L100.0500, L500.4050, L503.6550, L506.0400, L506.0200, L500.4100, L503.0106, L3300.9900, L501.9520 #### [facility] [address] [place], [address] Hematocrit (Bld) [Volume fraction] 37.5 % Normal 37-47 [facility] Comment on above: Performed By: #### L 501.9985, L506.1001, L3300.8000, L100.0500, L500.4050, L503.6550, L506.0400, L506.0200, L500.4100, L503.0106, L3300.9900, L501.9520 #### [facility] [address] [place], [address] Hemoglobin (Bld) [Mass/Vol] 12.3 g/dL Normal 12.0-15.0 [facility] Comment on above: Performed By: #### L 501.9985, L506.1001, L3300.8000, L100.0500, L500.4050, L503.6550, L506.0400, L506.0200, L500.4100, L503.0106, L3300.9900, L501.9520 #### [facility] [address] [place], [address] MCH (RBC) [Entitic mass] 30.4 pg Normal 27.0-32.0 [facility] Comment on above: Performed By: #### L 501.9985, L506.1001, L3300.8000, L100.0500, L500.4050, L503.6550, L506.0400, L506.0200, L500.4100, L503.0106, L3300.9900, L501.9520 #### [facility] [address] [place], [place], [id number] (142) MCHC (RBC) [Mass/Vol] 32.8 g/dL Normal 32-36 [facility] Comment on above: Performed By: #### L 501.9985, L506.1001, L3300.8000, L100.0500, L500.4050, L503.6550, L506.0400, L506.0200, L500.4100, L503.0106, L3300.9900, L501.9520 #### [facility] [address] [place], [place], [id number] [phone] MCV (RBC) [Entitic vol] 92.6 fL Normal 81-99 [facility] Comment on above: Performed By: #### L 501.9985, L506.1001, L3300.8000, L100.0500, L500.4050, L503.6550, L506.0400, L506.0200, L500.4100, L503.0106, L3300.9900, L501.9520 #### [facility] [address] [place], [address] Platelet mean volume (Bld) [Entitic vol] 9.7 fL Normal 6.2-12.0 [facility] Comment on above: Performed By: #### L 501.9985, L506.1001, L3300.8000, L100.0500, L500.4050, L503.6550, L506.0400, L506.0200, L500.4100, L503.0106, L3300.9900, L501.9520 #### [facility] [address] [place], [address] Platelets (Bld) [#/Vol] 316 10*3/uL Normal 150-450 [facility] Comment on above: Performed By: #### L 501.9985, L506.1001, L3300.8000, L100.0500, L500.4050, L503.6550, L506.0400, L506.0200, L500.4100, L503.0106, L3300.9900, L501.9520 #### [facility] [address] [place], [address] RBC (Bld) [#/Vol] 4.05 10*6/uL Low 4.2-5.4 [facility] Comment on above: Performed By: #### L 501.9985, L506.1001, L3300.8000, L100.0500, L500.4050, L503.6550, L506.0400, L506.0200, L500.4100, L503.0106, L3300.9900, L501.9520 #### [facility] [address] [place], [address] RDW SD 43.1 fl Normal 35.1-43.9 [facility] Comment on above: Performed By: #### L 501.9985, L506.1001, L3300.8000, L100.0500, L500.4050, L503.6550, L506.0400, L506.0200, L500.4100, L503.0106, L3300.9900, L501.9520 #### [facility] [address] [place], [place], [id number] WBC (Bld) [#/Vol] 5.3 10*3/uL Normal 4.4-11.0 [facility] Comment on above: Performed By: #### L 501.9985, L506.1001, L3300.8000, L100.0500, L500.4050, L503.6550, L506.0400, L506.0200, L500.4100, L503.0106, L3300.9900, L501.9520 #### [facility] [address] [place], [place], [id number] Calculated very low density lipoprotein (VLDL) cholesterol measurementOrdered By: Franky Pearson on 02-19-2025 Calculated very low density lipoprotein (VLDL) cholesterol measurement 14 mg/dL 5-40 [facility] Carbon dioxide, total [Moles /volume] in Central venous bloodOrdered By: Franky Pearson on 02-19-2025 CO2 [Moles/Vol] 25.9 mmol/L 21.0-32.0 [facility] Chloride assayOrdered By: Park Pearson on 02-19-2025 Chloride [Moles/Vol] 106 mmol/L 98-108 [facility] Comprehensive Metabolic Prof ilon 02-19-2025 Albumin [Mass/Vol] 4.5 g/dL Normal 3.5-5.0 [facility] Comment on above: Order Comment: FAX R ESULTS TO [phone] Performed By: #### L 501.9985, L506.1001, L3300.8000, L100.0500, L500.4050, L503.6550, L506.0400, L506.0200, L500.4100, L503.0106, L3300.9900, L501.9520 #### [facility] [address] [place], [place], [address] Albumin/Globulin [Mass ratio] 1.4 {ratio} Normal 0.9-2.4 [facility] Comment on above: Order Comment: FAX R ESULTS TO [phone] Performed By: #### L 501.9985, L506.1001, L3300.8000, L100.0500, L500.4050, L503.6550, L506.0400, L506.0200, L500.4100, L503.0106, L3300.9900, L501.9520 #### [facility] [address] [place], [address] ALK PHOS 128 U/L High 35-104 [facility] Comment on above: Order Comment: FAX R ESULTS TO [phone] Performed By: #### L 501.9985, L506.1001, L3300.8000, L100.0500, L500.4050, L503.6550, L506.0400, L506.0200, L500.4100, L503.0106, L3300.9900, L501.9520 #### [facility] [address] [place], [address] ALT [Catalytic activity/Vol] 20 U/L Normal <=34 [facility] Comment on above: Order Comment: FAX R ESULTS TO [phone] Performed By: #### L 501.9985, L506.1001, L3300.8000, L100.0500, L500.4050, L503.6550, L506.0400, L506.0200, L500.4100, L503.0106, L3300.9900, L501.9520 #### [facility] [address] [place], [address] AST [Catalytic activity/Vol] 21 U/L Normal <=31 [facility] Comment on above: Order Comment: FAX R ESULTS TO [phone] Performed By: #### L 501.9985, L506.1001, L3300.8000, L100.0500, L500.4050, L503.6550, L506.0400, L506.0200, L500.4100, L503.0106, L3300.9900, L501.9520 #### [facility] [address] [place], [place], [id number] Bilirubin [Mass/Vol] 0.32 mg/dL Normal 0.00-1.30 [facility] Comment on above: Order Comment: FAX R ESULTS TO [phone] Performed By: #### L 501.9985, L506.1001, L3300.8000, L100.0500, L500.4050, L503.6550, L506.0400, L506.0200, L500.4100, L503.0106, L3300.9900, L501.9520 #### [facility] [address] [place], [address] BUN/CRE 9.8 RATIO Low 10-20 [facility] Comment on above: Order Comment: FAX R ESULTS TO [phone] Performed By: #### L 501.9985, L506.1001, L3300.8000, L100.0500, L500.4050, L503.6550, L506.0400, L506.0200, L500.4100, L503.0106, L3300.9900, L501.9520 #### [facility] [address] [place], [place], [id number] Calcium [Mass/Vol] 9.6 mg/dL Normal 7.6-11.0 [facility] Comment on above: Order Comment: FAX R ESULTS TO [phone] Performed By: #### L 501.9985, L506.1001, L3300.8000, L100.0500, L500.4050, L503.6550, L506.0400, L506.0200, L500.4100, L503.0106, L3300.9900, L501.9520 #### [facility] [address] [place], [place], [id number] [phone] Chloride [Moles/Vol] 106 mmol/L Normal 98-108 [facility] Comment on above: Order Comment: FAX R ESULTS TO [phone] Performed By: #### L 501.9985, L506.1001, L3300.8000, L100.0500, L500.4050, L503.6550, L506.0400, L506.0200, L500.4100, L503.0106, L3300.9900, L501.9520 #### [facility] [address] [place], [place], [address] CO2 [Moles/Vol] 25.9 mmol/L Normal 21.0-32.0 [facility] Comment on above: Order Comment: FAX R ESULTS TO [phone] Performed By: #### L 501.9985, L506.1001, L3300.8000, L100.0500, L500.4050, L503.6550, L506.0400, L506.0200, L500.4100, L503.0106, L3300.9900, L501.9520 #### [facility] [address] [place], [address] Creatinine [Mass/Vol] 0.92 mg/dL Normal 0.70-1.20 [facility] Comment on above: Order Comment: FAX R ESULTS TO [phone] Performed By: #### L 501.9985, L506.1001, L3300.8000, L100.0500, L500.4050, L503.6550, L506.0400, L506.0200, L500.4100, L503.0106, L3300.9900, L501.9520 #### [facility] [address] [place], [address] GAP 11 Normal 5-15 [facility] Comment on above: Order Comment: FAX R ESULTS TO [phone] Performed By: #### L 501.9985, L506.1001, L3300.8000, L100.0500, L500.4050, L503.6550, L506.0400, L506.0200, L500.4100, L503.0106, L3300.9900, L501.9520 #### [facility] [address] [place], [address] (366) GFR/1.73 sq M.predicted among non-blacks MDRD (S/P/Bld) [Vol rate/Area] 75 mL/min/{1.73_m2} Normal >60 [facility] Comment on above: Order Comment: FAX R ESULTS TO [phone] Result Comment: mL/m in/1.73m2 CKD-EPI Creatinine Equation (2020) Performed By: #### L 501.9985, L506.1001, L3300.8000, L100.0500, L500.4050, L503.6550, L506.0400, L506.0200, L500.4100, L503.0106, L3300.9900, L501.9520 #### [facility] [address] [place], [place], [phone] (719) Globulin (S) [Mass/Vol] 3.2 g/dL Normal 2.2-4.2 [facility] Comment on above: Order Comment: FAX R ESULTS TO [phone] Performed By: #### L 501.9985, L506.1001, L3300.8000, L100.0500, L500.4050, L503.6550, L506.0400, L506.0200, L500.4100, L503.0106, L3300.9900, L501.9520 #### [facility] [address] [place], [place], [id number] (640) Glucose [Mass/Vol] 90 mg/dL Normal 70-99 [facility] Comment on above: Order Comment: FAX R ESULTS TO [phone] Performed By: #### L 501.9985, L506.1001, L3300.8000, L100.0500, L500.4050, L503.6550, L506.0400, L506.0200, L500.4100, L503.0106, L3300.9900, L501.9520 #### [facility] [address] [place], [address] Potassium [Moles/Vol] 4.9 mmol/L Normal 3.3-5.1 [facility] Comment on above: Order Comment: FAX R ESULTS TO [phone] Performed By: #### L 501.9985, L506.1001, L3300.8000, L100.0500, L500.4050, L503.6550, L506.0400, L506.0200, L500.4100, L503.0106, L3300.9900, L501.9520 #### [facility] [address] [place], [place], [id number] (586) Sodium [Moles/Vol] 143 mmol/L Normal 133-145 [facility] Comment on above: Order Comment: FAX R ESULTS TO [phone] Performed By: #### L 501.9985, L506.1001, L3300.8000, L100.0500, L500.4050, L503.6550, L506.0400, L506.0200, L500.4100, L503.0106, L3300.9900, L501.9520 #### [facility] [address] [place], [address] T PROT 7.7 g/dL Normal 5.9-8.4 [facility] Comment on above: Order Comment: FAX R ESULTS TO [phone] Performed By: #### L 501.9985, L506.1001, L3300.8000, L100.0500, L500.4050, L503.6550, L506.0400, L506.0200, L500.4100, L503.0106, L3300.9900, L501.9520 #### [facility] [address] [place], [place], [address] Urea nitrogen [Mass/Vol] 9 mg/dL Normal 4-19 [facility] Comment on above: Order Comment: FAX R ESULTS TO [phone] Performed By: #### L 501.9985, L506.1001, L3300.8000, L100.0500, L500.4050, L503.6550, L506.0400, L506.0200, L500.4100, L503.0106, L3300.9900, L501.9520 #### [facility] [address] [place], [address] Erythrocyte distribution wid th ratioOrdered By: Franky Pearson on 02-19-2025 Erythrocyte distribution width (RBC) [Ratio] 12.7 % 11.6-14.6 [facility] Erythrocyte distribution wid th standard deviationOrdered By: Franky Pearson on 02-19-2025 Erythrocyte distribution width (RBC) [Ratio] 43.1 fl 35.1-43.9 [facility] Ferritinon 02-19-2025 Ferritin [Mass/Vol] 17 ng/mL Low 22-378 [facility] Comment on above: Order Comment: FAX R ESULTS TO [phone] Performed By: #### L 501.9985, L506.1001, L3300.8000, L100.0500, L500.4050, L503.6550, L506.0400, L506.0200, L500.4100, L503.0106, L3300.9900, L501.9520 ####[facility] [address] [place], [place], [id number] Folate [Mass/volume] in Seru m or PlasmaOrdered By: Franky Pearson on 02-19-2025 Folate [Mass/Vol] 6.36 ng/mL 4.60-34.80 [facility] Folates,Serum (Folic Acid)on 02-19-2025 FOLATES,SERUM 6.36 ng/mL Normal 4.60-34.80 [facility] Comment on above: Order Comment: N Performed By: #### L 501.9985, L506.1001, L3300.8000, L100.0500, L500.4050, L503.6550, L506.0400, L506.0200, L500.4100, L503.0106, L3300.9900, L501.9520 #### [facility] [address], [address] Glomerular filtration rate ( GFR) estimation/1.73 sq m using serum, plasma, or whole bOrdered By: Franky Pearson on 02-19-2025 GFR/1.73 sq M.predicted among non-blacks MDRD (S/P/Bld) [Vol rate/Area] 75 mL/min/{1.73_m2} >60 [facility] Comment on above: mL/min/1.73m2 CKD-EP I Creatinine Equation (2020) Hematocrit Auto (Bld) [Volum e fraction]Ordered By: Franky Pearson on 02-19-2025 Hematocrit (Bld) [Volume fraction] 37.5 % 37-47 [facility] Hemoglobin A1con 02-19-2025 HbA1c (Bld) [Mass fraction] 5.5 % Normal <=5.6 [facility] Comment on above: Result Comment: Norm al < 5.7 % Prediabetic 5.7 - 6.4 % Diabetic >or= 6.5 % Please note range changes. Performed By: #### L 501.9985, L506.1001, L3300.8000, L100.0500, L500.4050, L503.6550, L506.0400, L506.0200, L500.4100, L503.0106, L3300.9900, L501.9520 #### [facility] [address] [place], [address] Hemoglobin A1c percentageOrd ered By: Franky Pearson on 02-19-2025 HbA1c (Bld) [Mass fraction] 5.5 % <5.7 [facility] Comment on above: Normal < 5.7 % Predi abetic 5.7 - 6.4 % Diabetic >or= 6.5 % Please note range changes. Hemoglobin measurementOrdere d By: Franky Pearson on 02-19-2025 Hemoglobin (Bld) [Mass/Vol] 12.3 g/dL 12.0-15.0 [facility] LDL calc ser/plasOrdered By: Franky Pearson on 02-19-2025 Cholesterol in LDL [Mass/Vol] 82 mg/dL [facility] Comment on above: Npitndhsvf=418-268 m g/dL & Higher Xoqh=460 mg/dL or greaterFriedwald Equation for LDL-C Laboratory - Chemistry and C hemistry - challengeOrdered By: Franky Pearson on 02-19-2025 AST [Catalytic activity/Vol] 21 U/L <32 [facility] Lipid Profileon 02-19-2025 CHOL:HDL 2.42 Normal [facility] Comment on above: Order Comment: FAX R ESULTS TO [phone] Performed By: #### L 501.9985, L506.1001, L3300.8000, L100.0500, L500.4050, L503.6550, L506.0400, L506.0200, L500.4100, L503.0106, L3300.9900, L501.9520 ####[facility] [address] [place], [place], [address] Cholesterol [Mass/Vol] 163 mg/dL Normal <=200 [facility] Comment on above: Order Comment: FAX R ESULTS TO [phone] Result Comment: Chol esterol level, Desirable <200 mg/dL Borderline high cholesterol 200-239 mg/dL High cholesterol >=240 mg/dL Recommendations of the NCEP Adult Treatment Panel for the following risk-cutoff thresholds for the [place] population. Performed By: #### L 501.9985, L506.1001, L3300.8000, L100.0500, L500.4050, L503.6550, L506.0400, L506.0200, L500.4100, L503.0106, L3300.9900, L501.9520 ####[facility] [address] [place], [place], [id number](077) Cholesterol in HDL [Mass/Vol] 67 mg/dL Normal [facility] Comment on above: Order Comment: FAX R ESULTS TO [phone] Result Comment: Alicia onal Cholesterol Education Program (NCEP) guidelines: <40 mg/dL: Low HDL-cholesterol (major risk factor for CHD) >= 60 mg/dL: High HDL-cholesterol (negative risk factor for CHD) HDL-cholesterol is affected by a number of factors, e.g. smoking, exercise, hormones, sex and age. Performed By: #### L 501.9985, L506.1001, L3300.8000, L100.0500, L500.4050, L503.6550, L506.0400, L506.0200, L500.4100, L503.0106, L3300.9900, L501.9520 ####[facility] [id number] [place], [id number]) Cholesterol in LDL [Mass/Vol] 82 mg/dL Normal [facility] Comment on above: Order Comment: FAX R ESULTS TO [phone] Result Comment: Bord notbjj=279-067 mg/dL Higher Dkxz=168 mg/dL or greater Friedwald Equation for LDL-C Performed By: #### L 501.9985, L506.1001, L3300.8000, L100.0500, L500.4050, L503.6550, L506.0400, L506.0200, L500.4100, L503.0106, L3300.9900, L501.9520 ####[facility] [id number] [place], [address] Cholesterol in VLDL [Mass/Vol] 14 mg/dL Normal 5-40 [facility] Comment on above: Order Comment: FAX R ESULTS TO [phone] Performed By: #### L 501.9985, L506.1001, L3300.8000, L100.0500, L500.4050, L503.6550, L506.0400, L506.0200, L500.4100, L503.0106, L3300.9900, L501.9520 ####[facility] [address] [place], [address] Triglyceride [Mass/Vol] 68 mg/dL Normal [facility] Comment on above: Order Comment: FAX R ESULTS TO [phone] Result Comment: The drugs N-Acetylcysteine and Metamizole may falsely depress this assay. Normal range: <150 mg/dL Borderline High: 150-199 mg/dL High: 200-499 mg/dL Very High: >500 mg/dL Performed By: #### L 501.9985, L506.1001, L3300.8000, L100.0500, L500.4050, L503.6550, L506.0400, L506.0200, L500.4100, L503.0106, L3300.9900, L501.9520 ####[facility] [address] [place], [address] MCV (mean corpuscular volume ) determinationOrdered By: Franky Pearson on 02-19-2025 MCV (RBC) [Entitic vol] 92.6 fL 81-99 [facility] Mean corpuscular hemoglobin (MCH) determinationOrdered By: Franky Pearson on 02-19-2025 MCH (RBC) [Entitic mass] 30.4 pg 27.0-32.0 [facility] Mean corpuscular hemoglobin concentration (MCHC) determinationOrdered By: Franky Pearson on 02-19-2025 MCHC (RBC) [Mass/Vol] 32.8 g/dL 32-36 [facility] Mean platelet volume determi nationOrdered By: Franky Pearson on 02-19-2025 Platelet mean volume (Bld) [Entitic vol] 9.7 fL 6.2-12.0 [facility] Platelet countOrdered By: Park Pearson on 02-19-2025 Platelets (Bld) [#/Vol] 316 10*3/uL 150-450 [facility] Potassium measurement (mass/ volume)Ordered By: Franky Pearson on 02-19-2025 Potassium (Unsp spec) [Mass/Vol] 4.9 mmol/L 3.3-5.1 [facility] RBC Auto (Bld) [#/Vol]Ordere d By: Franky Pearson on 02-19-2025 RBC (Bld) [#/Vol] 4.05 10*6/uL Low 4.2-5.4 [facility] Screening total cholesterol/ high density lipoprotein (HDL) cholesterol ratioOrdered By: Franky Pearson on 02-19-2025 Cholesterol.total/Chol esterol in HDL [Mass ratio] 2.42 {ratio} [facility] Serum creatinine measurement (mass/volume)Ordered By: Franky Pearson on 02-19-2025 Creatinine [Mass/Vol] 0.92 mg/dL 0.70-1.20 [facility] Serum globulin measurementOr dered By: Franky Pearson on 02-19-2025 Globulin (S) [Mass/Vol] 3.2 g/dL 2.2-4.2 [facility] Serum glucose measurement (m ass/volume)Ordered By: Franky Pearson on 02-19-2025 Glucose [Mass/Vol] 90 mg/dL 70-99 [facility] Serum or plasma alanine vang otransferase (ALT) measurementOrdered By: Franky Pearson on 02-19-2025 ALT [Catalytic activity/Vol] 20 U/L <35 [facility] Serum or plasma albumin sharifa urement (mass/volume)Ordered By: Franky Pearson on 02-19-2025 Albumin [Mass/Vol] 4.5 g/dL 3.5-5.0 [facility] Serum or plasma albumin/glob ulin mass ratioOrdered By: Franky Pearson on 02-19-2025 Albumin/Globulin [Mass ratio] 1.4 {ratio} 0.9-2.4 [facility] Serum or plasma alkaline keegan sphatase measurementOrdered By: Franky Pearson on 02-19-2025 ALP [Catalytic activity/Vol] 128 U/L High 35-104 [facility] Serum or plasma calcium sharifa urement (mass/volume)Ordered By: Franky Pearson on 02-19-2025 Calcium [Mass/Vol] 9.6 mg/dL 7.6-11.0 [facility] Serum or plasma cholesterol in HDL measurement (mass/volume)Ordered By: Franky Pearson on 02-19-2025 Cholesterol in HDL [Mass/Vol] 67 mg/dL >40 [facility] Comment on above: National Cholesterol Education Program (NCEP) guidelines:<40 mg/dL: Low HDL-cholesterol (major risk factor for CHD)>= 60 mg/dL: High HDL-cholesterol (negative risk factor for CHD)HDL-cholesterol is affected by a number of factors, e.g. smoking, exercise, hormones, sex and age. Serum or plasma cholesterol measurement (mass/volume)Ordered By: Franky Pearson on 02-19-2025 Cholesterol [Mass/Vol] 163 mg/dL <201 [facility] Comment on above: Cholesterol level, D esirable <200 mg/dLBorderline high cholesterol 200-239 mg/dLHigh cholesterol >=240 mg/dLRecommendations of the NCEP Adult Treatment Panel for the following risk-cutoff thresholds for the [place] population. Serum or plasma ferritin kayla surement (mass/volume)Ordered By: Franky Pearson on 02-19-2025 Ferritin [Mass/Vol] 17 ng/mL Low 22-378 [facility] Serum or plasma thiamine kayla surement (mass/volume)Ordered By: Franky Pearson on 02-19-2025 Thiamine [Mass/Vol] 113.9 nmol/L 66.5-200.0 [facility] Serum or plasma urea nitroge n measurement (mass/volume)Ordered By: Franky Pearson on 02-19-2025 Urea nitrogen [Mass/Vol] 9 mg/dL 4-19 [facility] Serum or plasma zinc measure ment (mass/volume)Ordered By: Franky Pearson on 02-19-2025 Zinc [Mass/Vol] 62 ug/dL 44-115 [facility] Comment on above: Detection Limit = 5P erformed at: [facility] - [facility] [address] [id number] Director: James Herrera MD, Phone: [phone] Sodium levelOrdered By: Harry wendy Lili on 02-19-2025 Sodium [Moles/Vol] 143 mmol/L 133-145 [facility] T4 Free Directon 02-19-2025 T4 FREE DIRECT 1.00 ng/dL Normal 0.76-1.46 [facility] Comment on above: Order Comment: FAX R ESULTS TO [phone] Performed By: #### L 501.9985, L506.1001, L3300.8000, L100.0500, L500.4050, L503.6550, L506.0400, L506.0200, L500.4100, L503.0106, L3300.9900, L501.9520 ####[facility] [address] [place], [address] T4 freeOrdered By: Franky currie on 02-19-2025 Free T4 [Mass/Vol] 1.00 ng/dL 0.76-1.46 [facility] TSH DL <= 0.005 mIU/L QnOrde red By: Franky Pearson on 02-19-2025 TSH Qn 1.490 uIU/mL 0.300-4.20 0 [facility] Thyroid Stim Hormone (TSH)on 02-19-2025 TSH 1.490 uIU/mL Normal 0.300-4.20 0 [facility] Comment on above: Order Comment: FAX R ESULTS TO [phone] Performed By: #### L 501.9985, L506.1001, L3300.8000, L100.0500, L500.4050, L503.6550, L506.0400, L506.0200, L500.4100, L503.0106, L3300.9900, L501.9520 ####[facility] [address] [place], [address] Total proteinOrdered By: Carmen Pearson on 02-19-2025 Protein [Mass/Vol] 7.7 g/dL 5.9-8.4 [facility] Triglycerides measurementOrd ered By: Franky Pearson on 02-19-2025 Triglyceride [Mass/Vol] 68 mg/dL <199 [facility] Comment on above: The drugs N-Acetylcy steine and Metamizole may falsely depress this assay. Normal range: <150 mg/dLBorderline High: 150-199 mg/dLHigh: 200-499 mg/dLVery High: >500 mg/dL Vitamin B12on 02-19-2025 Cobalamin (Vitamin B12) [Mass/Vol] 248 pg/mL Normal 180-914 [facility] Comment on above: Order Comment: FAX R ESULTS TO [phone] Performed By: #### L 501.9985, L506.1001, L3300.8000, L100.0500, L500.4050, L503.6550, L506.0400, L506.0200, L500.4100, L503.0106, L3300.9900, L501.9520 ####[facility] [address] [place], [place], [id number] Vitamin B12 ser/plasOrdered By: Franky Pearson on 02-19-2025 Cobalamin (Vitamin B12) [Mass/Vol] 248 pg/mL 180-914 [facility] Vitamin D,25 Hydroxyon 02-19 Vitamin D 25-OH 33.2 ng/mL Normal 30-100 [facility] Comment on above: Order Comment: FAX R ESULTS TO [phone] Result Comment: Araceli min D Status Deficiency: <20 ng/mL (50nmol/L) Insufficiency: 20-30 ng/mL (50-75 nmol/L) Sufficiency: 30-100 ng/mL (75-250 nmol/L) Toxicity: >100 ng/mL (>250 nmol/L) Performed By: #### L 501.9985, L506.1001, L3300.8000, L100.0500, L500.4050, L503.6550, L506.0400, L506.0200, L500.4100, L503.0106, L3300.9900, L501.9520 ####[facility] [address] [place], [place], [address] White blood cell (WBC) count Ordered By: Franky Pearson on 02-19-2025 WBC (Bld) [#/Vol] 5.3 10*3/uL 4.4-11.0 [facility] Foot min 3 Viewson 5 Foot min 3 Views [facility] Imaging Services [address] [place], [place] [address] (984) Foot min 3 Views MR#: [id number] Acct: [id number] Name: AMANDA GRUBBS Rep #: [id number] : 1970 F 54 From: Nandini Love MD PCP: Dr. Franky Pearson, Status: DEP AMB Study: Foot min 3 Views Date of Exam: 02/06/25 Exam# [id number] Ordering Dr: Jolie Joseph NP-Amrita EXAM: XR Right Foot Complete, 3 or More Views CLINICAL INDICATION: ON GOING PAIN, NKI TECHNIQUE: Frontal, lateral and oblique views of the right foot. COMPARISON: No relevant prior studies available. FINDINGS: BONES/JOINTS: Mild degenerative changes of the intertarsal joints. No acute fracture. No dislocation. SOFT TISSUES: Soft tissue swelling. RAD/Foot min 3 Views IMPRESSION: Degenerative changes as above. Reading Location[facility] CC: ACID LOADER-C Jolie Joseph; Dr. Franky Pearson DO Program Review Director: Signed Normal [facility] Knee 4 or More Viewson 02-06 Knee 4 or More Views [facility] Imaging Services [address] [place] [address] Knee 4 or More Views MR#: [id number] Acct: [id number] Name: AMANDA GRUBBS Rep #: [id number] : 1970 F 54 From: Nandini Love MD PCP: Dr. Franky Pearson DO Status: DEP AMB Study: Knee 4 or More Views Date of Exam: 02/06/25 Exam# [id number] Ordering Dr: Jolie Joseph EXAM: XR Right Knee Complete, 4 or More Views CLINICAL INDICATION: ON GOING PAIN, NKI TECHNIQUE: Four or more views of the right knee. COMPARISON: No relevant prior studies available. FINDINGS: BONES/JOINTS: Unremarkable. No acute fracture. No dislocation. SOFT TISSUES: Unremarkable. RAD/Knee 4 or More Views IMPRESSION: No acute fracture. Reading [facility] CC: ANA Joseph; Dr. Franky Pearson DO Program Review Director: Signed Normal [facility] Orthopedic Visit Reporton Orthopedic Visit Report [facility] [address] [place] [address] [address] [place] [address] OFFICE VISIT Date of Service: 02/06/25 MR#: [id number] Acct: [id number] Name: AMANDA GRUBBS Rep #: [id number] : 1970 Provider: ANA montanez Age/Sex: 54/F [place] [facility] [place] Status: Signed Intake Vital [...] provided and the decisions made by me, ANA Skinner 02/06/25 0821. Part of today???s visit was [...] ROS Con (more content not included)... Normal [facility] Urine Cultureon 02-04-2025 URC Presumptive E. coli [place] Count 80,000-100,000 Presumptive E. coli: REACTION Ampicillin [...] TMP SMX Islt CARMEN >=320 R Normal [facility] Comment on above: Performed By: #### M 100.2200 ####[facility] [address] [place], [address] Laboratory - Chemistry and C hemistry - challengeOrdered By: Angus Villalobos on 02-02-2025 Bilirubin Ql (U) Negative [facility] Glucose Ql (U) Negative [facility] Ketones Ql (U) Trace (5) [facility] pH (U) 5.0 [pH] [facility] Specific gravity (U) [Rel density] 1.005 [facility] Urobilinogen (U) [Mass/Vol] 0.0935206 mg/dL [facility] Laboratory - Hematology and Cell countsOrdered By: Angus Villalobos on 02-02-2025 Hemoglobin Ql (U) Negative [facility] Laboratory - Specimen inform ationOrdered By: Angus Villalobos on 02-02-2025 Clarity (U) Clear [facility] Color (U) Colorless [facility] Laboratory - UrinalysisOrder ed By: Angus Villalobos on 02-02-2025 Nitrite Ql (U) Negative [facility] Protein Ql (U) Negative [facility] No Panel InformationOrdered By: Angus Villalobos on 02-02-2025 Urine Leukocytes Negatve [facility] Urine Non-Hemolyzed Blood Negative [facility] Urgent Care Visit Reporton 0 02-02-2025 Urgent Care Visit Report [facility] [address], [address] [place] [address] OFFICE VISIT Date of Service: 02/02/25 MR#: [id number] Acct: [id number] Name: AMANDA GRUBSB Rep #: [id number] : 1970 Provider: BLU Marshall Age/Sex: 54/F [place] [facility] Status: Signed Intake Vital [...] No CV (more content not included)... Normal [facility] Urine cultureOrdered By: Brayan Villalobos on 02-02-2025 Bacteria identified Cx Nom (U) Presumptive E. coli Abnormal [facility] Gastroenterology Visit Repor ton 01-29-2025 Gastroenterology Visit Report [facility] [address] [place] [address] OFFICE VISIT Date of Service: 01/29/25 MR#: [id number] Acct: [id number] Name: AMANDA GRUBBS Rep #: [id number] : 1970 Provider: ANA mendiola Age/Sex: 54/F Location: [facility] Status: Signed Intake Vital Signs 01/16/25 05:54 [...] subcut QWEEK 11/26/2402/06 History subcutaneous pen injector (Mounbhavaniro) lubiprostone 8 mcg capsule 8 mcg PO [...] daily. Pa (more content not included)... Normal [facility] Colonoscopy Reporton 025 Colonoscopy Report [facility] Medical Records Department [address] [place] [address] Colonoscopy Report MR#: [id number] Acct: [id number] Name: AMANDA GRUBBS Rep #: [id number] : 1970 54 From: Rock Pineda DO PCP: Dr. Franky Pearson DO Status:[facility] Patient Name: Amanda Grubbs Procedure Date: 01/16/2025 [...] was poor. Procedure Code(s): --- Professional --- 46268, Colonoscopy, flexible; with biopsy, single or multiple CPT copyright 2021 [employer]. All rights reserved. The codes documented in this report are preliminary and upon roller shop supervisor review may be revised to meet current compliance requirements. Rock Pineda DO 01/16/2025 7:19:59 AM This report has been signed electronically. Number of Addenda: 0 Note Initiated On: 01/16/2025 6:54 AM 01/16/25 0720 Date Rock Pineda DO Cosigner Signature: Date (if indicated) CC: Dr. Franky Pearson DO; Rock Pineda DO Date Dictated: 01/16/25 0654 Date Transcribed: Program Review Director: SHAN Signed Normal [facility] EGD Reporton 01-16-2025 EGD Report [facility] Medical Records Department [address] [place] [address] EGD Report MR#: [id number] Acct: [id number] Name: AMANDA GRUBBS Rep #: [id number] : 1970 54 From: Rock Pineda DO PCP: Dr. Franky Pearson DO Status:REG [facility] Patient Name: Amanda Grubbs [...] pathology results. Procedure Code(s): --- Professional --- 38098, Esophagogastroduodenoscopy, flexible, transoral; with biopsy, single or multiple CPT copyright 2021 [employer]. All rights reserved. The codes documented in this report are preliminary and upon roller shop supervisor review may be revised to meet current compliance requirements. Rock Pineda DO 01/16/2025 7:17:27 AM This report has been signed electronically. Number of Addenda: 0 Note Initiated On: 01/16/2025 6:23 AM 01/16/25717 Date Rock Pineda DO Cosigner Signature: Date (if indicated) CC: Dr. Franky Pearson DO; Rock Pineda DO Date Dictated: 01/16/25622 Date Transcribed: Program Review Director: SHAN Signed [facility] Immunohistochemical Stainson 01-16-2025 Immunohistochemical Stains Patient Age/Sex Location Account Attending Physician AMANDA GRUBBS 54/F EN [id number] Rock Pineda DO Specimen: [id number] Received: 01/16/25 Status: ARLEEN Mitchell Num: [id number] Spec Type: EGD BIOPSY Subm Dr: Rock [...] developed and their performance characteristics determined by [facility]. They may not have been [...] specimen is totally submitted in one cassette. AR 01/16/2025 CPT:17023x6,00502 Patient Age/Sex Location Account Attending Physician AMANDA GRUBBS 54/F EN [id number] Rock Pineda DO ADDENDUM Addendum 1 Entered: 01/21/25-130 This addendum is to report the IHC stain for H pylori on part B: B. IHC negative for H pylori organisms. Addendum Signed (signature on file) Dr. Sima Pascal MD 01/21/25 8150 Patient Age/Sex Location Account Attending Physician AMANDA GRUBBS 54/F EN [id number] Rock Pineda DO Signed (signature on file) Dr. Sima Pascal MD 01/20/25 1233 Normal [facility] Comment on above: Performed By: #### MAXIMO DILLON ####[facility] [address] [place], [place], [address] MR/OP.PROVATon 01-16-2025 MR/OP.PROVAT [facility] Medical Records Department [address] [place] [address] Provation Physician Letter MR#: [id number] Acct: [id number] Name: AMANDA GRUBBS Rep #: [id number] : 1970 54 From: Rock Pineda DO PCP: Dr. Franky Pearson DO Status:REG [facility] 01/16/2025 Franky Pearson Do Re : Colonoscopy procedure for Amanda Grubbs Dear Lili This procedure was performed on Thursday, January [...] been signed electronically. 01/16/25 0720 Date Rock Thakurignshelley Signature: Date (if indicated) CC: Dr. Franky Pearson DO; Rock Pineda DO Date Dictated: 01/16/25653 Date Transcribed: Program Review Director: SHAN Signed [facility] MR/OP.PROVAT [facility] Medical Records Department [address] [place] [address] Provation Physician Letter MR#: [id number] Acct: [id number] Name: AMANDA GRUBBS Rep #: [id number] : 1970 54 From: Rock Pineda DO PCP: Dr. Franky Pearson DO Status:REG [facility] 01/16/2025 Franky Pearson Do Re : Upper GI endoscopy procedure for Amanda Grubbs Dear Lili This procedure was performed on Thursday, January [...] Pineda DO Date Dictated: 01/16/25622 Date Transcribed: Program Review Director: RF Signed [facility] MR/POSTOP.ANEon 01-16-2025 MR/POSTOP.[facility] Medical Records Department [address] [place] [address] Anesthesia Postop Eval I 01/16/25718 MR#: [id number] Acct: [id number] Name: AMANDA GRUBBS FAN Rep #: [id number] : 1970 54 From: Frederic Nicole PCP: Dr. Franky Pearson, DO Status:REG SDC Y Race: C Location: [place] [address] Anesthesia: Postop Eval I Current Vital Signs [...] Frederic Barney Signature: Date CC: Signed Normal [facility] Surgery Specimen Level Sukhwinder 01-16-2025 Surgery Specimen Level IV Patient Age/Sex Location Account Attending Physician AMANDA GRUBBS 54/F EN [id number] Rock Pineda DO Specimen: [id number] Received: 01/16/25 Status: ARLEEN Mitchell Num: [id number] Spec Type: EGD BIOPSY Subm Dr: Rock [...] specimen is totally submitted in one cassette. AR 01/16/2025 CPT:74911u8,22875 Patient Age/Sex Location Account Attending Physician AMANDA GRUBBS 54/F EN [id number] Rock Pineda, DO Signed (signature on file) Dr. Sima Pascal MD 01/20/25 1233 [facility] Comment on above: Performed By: #### P MAXIMO LORENZO ####[facility] [address] [place], [address] MR/PAT.NATALIAaudie 01-13-2025 MR/PAT.NATALIA [facility] Medical Records Department [address] [place] [address] PAT - Anesthesia 01/13/25 1645 MR#: [id number] Acct: [id number] Name: AMANDA GRUBBS Rep #: [id number] : 1970 54 From: Selvin Slater MD PCP: Dr. Franky Pearson, DO Status:PRE SDC Y Race: C Location: EN Pre-Assessment Diagnosis/Proposed Procedure Planned Operative Procedure(s): COLONOSCOPY, EGD Anesthesia History Anesthesia History - environmental web crawler: Anesthesia History - environmental web crawler Hx Hospitalization No 01/13/25 13:38 Any Problems [...] take am of surgery PONV PONV - environmental web crawler: PONV - environmental web crawler Female No 01/13/25 13:38 HX of Motion [...] 11/26/24 09:57 Respiratory Assessment Respiratory Assessment - environmental web crawler: Respiratory Tract Infection Hx - environmental web crawler Hx Respiratory Tract Infection No 01/13/25 13:38 STOP Sleep Apnea STOP Sleep Apnea - environmental web crawler: STOP Sleep Apnea - environmental web crawler Hx Hypertension No 01/13/25 13:38 Hx Sleep [...] Tobacco Use History Tobacco Use History - environmental web crawler: Tobacco Use History - environmental web crawler Tobacco Use Smoking Status Never smoker 01/13/25 13:38 Hx Tobacco Use No 01/13/25 13:38 Years Smoking Packs Smoked per Day Smoking Cessation Date was within the last 15 years Hx Smoking Cessation Date Hx Smoking Cessation Counseling Hematologic Medial History Hematologic Hx - environmental web crawler: Hematologic Medical Hx - 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' Hx of Blood Transfusion No 01/13/25 13:38 [...] confused, unrespo /Reproduction History /Reproductive History - environmental web crawler: /Reproductive Hx- environmental web crawler Hx Now Gestational Age (in weeks): EDC: [...] Unknown Hist (more content not included)... Normal [facility] Chiropractic Reporton 2024 Chiropractic Report [facility] [address] [place] [address] OFFICE VISIT Date of Service: 01/05/25 MR#: [id number] Acct: [id number] Name: AMANDA GRUBBSN Rep #: [id number] : 1970 Provider: BUCK Méndez Age/Sex: 54/F [place] [facility]: Signed Intake Vital Signs 11/26/24 09:57 [...] #90 caps 11/26/24 Rx release peg 3350-sod sulf,ipjjw-smn-zdf See Rx Instructions PO .COMPLEX #2 11/26/24 01/05/25 Rx 178.7-7.3-0.5-1.12-0.9 gram oral mL soln (Suflave) ramelteon 8 mg tablet (Rozerem) 8 mg PO QHS 11/26/24 01/05/25 Hist ory tirzepatide 2.5 mg/0.5 mL 2.5 mg subcut QWEEK 11/26/2401/05 History subcutaneous pen injector (Mounjaro) [facility] Medical History Lower respiratory tract [...] out of alignment. She participated in the [employer] run this past weekend but feels pretty [...] T5 and (more content not included)... Normal [facility] Chiropractic Reporton 2024 Chiropractic Report [facility] [place] [address] OFFICE VISIT Date of Service: 12/18/24 MR#: [id number] Acct: [id number] Name: AMANDA GRUBBS Rep #: [id number] : 1970 Provider: BUCK Méndez Age/Sex: 54/F Location: [facility] Status: Signed Intake Vital Signs 11/26/24 09:57 [...] #90 caps 11/26/24 Rx release peg 3350-sod sulf,cmuxa-lcm-cjx See Rx Instructions PO .COMPLEX #2 11/26/24 12/18/24 Rx 178.7-7.3-0.5-1.12-0.9 gram oral mL soln (Suflave) ramelteon 8 mg tablet (Rozerem) 8 mg PO QHS 11/26/24 12/18/24 Hist ory tirzepatide 2.5 mg/0.5 mL 2.5 mg subcut QWEEK 11/26/2412/18 History subcutaneous pen injector (Dakota) [facility] Medical History Lower respiratory tract [...] (upper thor (more content not included)... Normal [facility] Gastroenterology Visit Repor ton 11-26-2024 Gastroenterology Visit Report [facility] [address] [place] [address] OFFICE VISIT Date of Service: 11/26/24 MR#: [id number] Acct: [id number] Name: AMANDA GRUBBS Rep #: [id number] : 1970 Provider: ANA mendiola Age/Sex: 54/F [place] [facility] Status: Signed Intake Vital Signs 09/25/24 10:43 [...] Chief Complaint: abdomina pain, bloating, N/V, bleeding Side Sawyer Required: No Accompanied by: Self Is patient [...] #90 caps 11/26/24 Rx release peg 3350-sod sulf,wiuwo-jmp-jfm See Rx Instructions PO .COMPLEX #2 11/26/24 11/26/24 Rx 178.7-7.3-0.5-1.12-0.9 gram oral mL soln (Suflave) ramelteon 8 mg tablet (Rozerem) 8 mg PO QHS 11/26/24 11/26/24 Hist ory tirzepatide 2.5 mg/0.5 mL 2.5 mg subcut QWEEK 11/26/2411/26 History subcutaneous pen injector (Mounjaro) PFS Medical History Lower respiratory tract infection Bacterial [...] for headache(s (more content not included)... Normal [facility] Office Visit Reporton 2024 Office Visit Report [facility] [address] [place] [address] OFFICE VISIT Date of Service: 06/27/24 MR#: [id number] Acct: [id number] Patient: AMANDA GRUBBS Rep #: [id number] : 1970 Provider: BLU Clinton Age/Sex: 54/F [place] [facility] [place] Status: Signed Intake Vital [...] Barney Signature: Date (if applicable) CC: Normal [facility] Chiropractic Reporton 2024 Chiropractic Report [facility] [address] [place] [address] OFFICE VISIT Date of Service: 09/25/24 MR#: [id number] Acct: [id number] Name: AMANDA GRUBBS Rep #: [id number] : 1970 Provider: BUCK Méndez Age/Sex: 54/F [place] [facility] [place]: S[place] Intake Vital Signs 08/19/24 07:30 [...] 10:43) Medications ???Medication ???Instructions ???Recorded ???Confirmed ???Type nwwbvzklay-sysyjqfbqczlv-iy ffeine 1 cap PO Q8H PRN h/a [...] Yes cervical (more content not included)... Normal [facility] Pulmonary Visit Reporton Pulmonary Visit Report [facility] [place] [address] [place] [address] OFFICE VISIT Date of Service: 08/19/24 MR#: [id number] Acct: [id number] Name: AMANDA GRUBBS Rep #: [id number] : 1970 Provider: Moon Lyman NP Age/Sex: 54/F [place] [facility] [place] Status: Signed Assessment and Plan Assessment and [...] is being referred from Rolan Valdes, Cardiology [facility]. Her PCP is Dr. Franky Pearson. She is a lifelong non-smoker. 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 She has never seen a charge master specialist. The patient indicates that she had COVID [...] January 2024. The patient has imaging from [facility] including a chest CT on 2022 [...] BA, [place], ST, chest congest, sinus pressure Side Sawyer Required: No DME Vendor: n/a Accompanied by: Self Is patient in pain?: No Allergies No Known Allerg (more content not included)... Normal [facility] Urgent Care Visit Reporton 0 08-13-2024 Urgent Care Visit Report [facility] [address], [address] [place] [address] OFFICE VISIT Date of Service: 08/13/24 MR#: [id number] Acct: [id number] Name: AMANDA GRUBBS Rep #: [id number] : 1970 Provider: ANA Carver Age/Sex: 54/F [place] [facility] [place] Status: Signed Intake Vital Signs 06/13/24 12:45 08/13/24 08:34 Height 5 ft 3 in BP 120/60 Position Sitting Pulse 83 Temp 97.6 F L Temp Source Oral Pulse Oximetry (%) 99 Oxygen Delivery Method room air Intake Visit Reasons: CONCERN FOR PNEUMONIA Accompanied by: Self Allergies No Known Allergies Allergy (Verified 08/13/24 08:38) Medications ???Medication ???Instructions ???Recorded ???Confirmed ???Type cvexmxxmga-vkiimemlrobie-tw ffeine 1 cap PO Q8H PRN h/a [...] mg PO BID 7 days #14 caps 03/11/0208/13/24 Rx capsule Nurse's Note: Patient has a cough,stuffy nose, chest hurts when coughing. Patient has greenish mucus discharge from her nose. Patient grandson had pneumonia. [facility] Medical History (Updated 08/13/24 @ 08:43 by Jose M Carver NP-Amrita) Lower respiratory tract infection Bacterial sinusitis Anginal [...] discuss possibl (more content not included)... Normal [facility] Office Visit Reporton 2024 Office Visit Report [facility] [address] [place] [address] OFFICE VISIT Date of Service: 07/23/24 MR#: [id number] Acct: [id number] Patient: AMANDA GRUBBS Rep #: [id number] : 1970 Provider: BLU Marshall Age/Sex: 54/F Location[place] [facility] [place] Status: Signed Employer Purchased Covid Test Note: Patient here today for Covid Testing, requested by their Employer. Assessment and Plan Assessment and Plan Orders: Orders POC Cepheid Covid, FluAB, RSV Today POC Dior Rapid Strep A Today Plan Details Goals Barriers: Goals Decrease pain Decrease spasm Decrease HAs 07/23/24 1402 Date Angus HURT Cosigner Signature: Date (if applicable) CC: Normal [facility] Urgent Care Visit Reporton 0 07-23-2024 Urgent Care Visit Report [facility] [address], [address] [place] [address] OFFICE VISIT Date of Service: 07/23/24 MR#: [id number] Acct: [id number] Name: AMANDA GRUBBS Rep #: [id number] : 1970 Provider: BLU Marshall Age/Sex: 54/F [place] [facility] [place] Status: Signed with Addenda [...] No Known Allergies Allergy (Verified 07/23/24 11:59) [facility] Medical History Anginal pain Somatic [...] No close contacts with similar complaints. ???No gyud-iaj-gqddjfj products taken to assist. No other associated [...] Acute streptococcal (more content not included)... Normal [facility] Urgent Care Visit Report [facility] [address], [address] [place] [address] OFFICE VISIT Date of Service: 07/23/24 MR#: [id number] Acct: [id number] Name: AMANDA GRUBBS Rep #: [id number] : 1970 Provider: BLU Marshall Age/Sex: 54/F [place] [facility] [place] Status: Signed Intake Vital [...] BA, [place], ST, chest congest, sinus pressure Side Sawyer Required: No Is patient in pain?: No Allergies No Known Allergies Allergy (Verified 07/23/24 11:59) Is last menstrual period known: No Post menopausal: No Patient : No Nurse's Note: BA, [place], ST, chest congest, sinus pressure x 4 days. denies fevers. pt resulted negative for cepheid IN ERROR. pt was FLU AND STREP POSITIVE. pt and provider has been advised of results [facility] Medical History Anginal pain Somatic [...] No Known Allergies Allergy (Verified 07/23/24 11:59) [facility] Medical History Anginal pain Somatic [...] No close contacts with similar complaints. ???No fdnc-dzi-sjojsvg products taken t (more content not included)... Normal [facility] Vitamin B1, Thiamineon 07-08 VIT B1 THIAMINE 89.5 nmol/L Normal 66.5-200.0 [facility] Comment on above: Order Comment: Test( s) [id number]-Tvn. B1, Whole Bloodwas developed and its performance characteristicsdetermined by [employer]. It has not been cleared or approvedby the Food and Drug Administration. Performed By: #### L 3300.9900, L503.6030, L506.0400, L506.1000, L3300.8000, L100.0500, L503.6550, L503.0105, L501.9520, L500.4050, L501.9985, L500.4100, L506.0250 ####[facility] [address] [place], [place], [id number] Zinc, Plasma or Serumon 06-12 ZINC,PLASMA/SER 62 ug/dL Normal 44-115 [facility] Comment on above: Order Comment: Test( s) [id number]-Aiy. B1, Whole Bloodwas developed and its performance characteristicsdetermined by [employer]. It has not been cleared or approvedby the Food and Drug Administration. Result Comment: Dete ction Limit = 5 Performed at: [facility] [address] [id number] Casting Assistant: James Herrera MD, Phone: [phone] Performed By: #### L 3300.9900, L503.6030, L506.0400, L506.1000, L3300.8000, L100.0500, L503.6550, L503.0105, L501.9520, L500.4050, L501.9985, L500.4100, L506.0250 ####[facility] [address] [facility] [place], [place], [id number] CBC-Complete Blood Cnt No Di ffon 07-01-2024 Erythrocyte distribution width (RBC) [Ratio] 12.6 % Normal 11.6-14.6 [facility] Comment on above: Performed By: #### L 3300.9900, L503.6030, L506.0400, L506.1000, L3300.8000, L100.0500, L503.6550, L503.0105, L501.9520, L500.4050, L501.9985, L500.4100, L506.0250 ####[facility] [address] [facility] [place], [place], [id number] Hematocrit (Bld) [Volume fraction] 36.8 % Low 37-47 [facility] Comment on above: Performed By: #### L 3300.9900, L503.6030, L506.0400, L506.1000, L3300.8000, L100.0500, L503.6550, L503.0105, L501.9520, L500.4050, L501.9985, L500.4100, L506.0250 ####[facility] [address] [facility] [place], [place], [address] Hemoglobin (Bld) [Mass/Vol] 11.7 g/dL Low 12.0-15.0 [facility] Comment on above: Performed By: #### L 3300.9900, L503.6030, L506.0400, L506.1000, L3300.8000, L100.0500, L503.6550, L503.0105, L501.9520, L500.4050, L501.9985, L500.4100, L506.0250 ####[facility] [address] [place], [place], [id number] MCH (RBC) [Entitic mass] 30.2 pg Normal 27.0-32.0 [facility] Comment on above: Performed By: #### L 3300.9900, L503.6030, L506.0400, L506.1000, L3300.8000, L100.0500, L503.6550, L503.0105, L501.9520, L500.4050, L501.9985, L500.4100, L506.0250 ####[facility] [address] [place], [place], [id number] MCHC (RBC) [Mass/Vol] 31.8 g/dL Low 32-36 [facility] Comment on above: Performed By: #### L 3300.9900, L503.6030, L506.0400, L506.1000, L3300.8000, L100.0500, L503.6550, L503.0105, L501.9520, L500.4050, L501.9985, L500.4100, L506.0250 ####[facility] [address] [place], [place], [phone] MCV (RBC) [Entitic vol] 94.8 fL Normal 81-99 [facility] Comment on above: Performed By: #### L 3300.9900, L503.6030, L506.0400, L506.1000, L3300.8000, L100.0500, L503.6550, L503.0105, L501.9520, L500.4050, L501.9985, L500.4100, L506.0250 ####[facility] [address] [place], [address] Platelet mean volume (Bld) [Entitic vol] 9.1 fL Normal 6.2-12.0 [facility] Comment on above: Performed By: #### L 3300.9900, L503.6030, L506.0400, L506.1000, L3300.8000, L100.0500, L503.6550, L503.0105, L501.9520, L500.4050, L501.9985, L500.4100, L506.0250 ####[facility] [address] [place], [address] Platelets (Bld) [#/Vol] 288 10*3/uL Normal 150-450 [facility] Comment on above: Performed By: #### L 3300.9900, L503.6030, L506.0400, L506.1000, L3300.8000, L100.0500, L503.6550, L503.0105, L501.9520, L500.4050, L501.9985, L500.4100, L506.0250 ####[facility] [address] [place], [address] RBC (Bld) [#/Vol] 3.88 10*6/uL Low 4.2-5.4 [facility] Comment on above: Performed By: #### L 3300.9900, L503.6030, L506.0400, L506.1000, L3300.8000, L100.0500, L503.6550, L503.0105, L501.9520, L500.4050, L501.9985, L500.4100, L506.0250 ####[facility] [address] [place], [address] RDW SD 43.9 fl Normal 35.1-43.9 [facility] Comment on above: Performed By: #### L 3300.9900, L503.6030, L506.0400, L506.1000, L3300.8000, L100.0500, L503.6550, L503.0105, L501.9520, L500.4050, L501.9985, L500.4100, L506.0250 ####[facility] [address] [place], [place], [address] WBC (Bld) [#/Vol] 6.6 10*3/uL Normal 4.4-11.0 [facility] Comment on above: Performed By: #### L 3300.9900, L503.6030, L506.0400, L506.1000, L3300.8000, L100.0500, L503.6550, L503.0105, L501.9520, L500.4050, L501.9985, L500.4100, L506.0250 ####[facility] [address] [place], [place], [id number] Comprehensive Metabolic Prof ilon 07-01-2024 Albumin [Mass/Vol] 3.7 g/dL Normal 3.2-5.0 [facility] Comment on above: Order Comment: Y Performed By: #### L 3300.9900, L503.6030, L506.0400, L506.1000, L3300.8000, L100.0500, L503.6550, L503.0105, L501.9520, L500.4050, L501.9985, L500.4100, L506.0250 ####[facility] [address] [place], [address] Albumin/Globulin [Mass ratio] 0.9 {ratio} Normal 0.9-2.4 [facility] Comment on above: Order Comment: Y Performed By: #### L 3300.9900, L503.6030, L506.0400, L506.1000, L3300.8000, L100.0500, L503.6550, L503.0105, L501.9520, L500.4050, L501.9985, L500.4100, L506.0250 ####[facility] [address] [place], [place], [address] ALK P 108 U/L Normal 45-117 [facility] Comment on above: Order Comment: Y Performed By: #### L 3300.9900, L503.6030, L506.0400, L506.1000, L3300.8000, L100.0500, L503.6550, L503.0105, L501.9520, L500.4050, L501.9985, L500.4100, L506.0250 ####[facility] [address] [place], [place], [address] ALT [Catalytic activity/Vol] 18 U/L Normal 13-56 [facility] Comment on above: Order Comment: Y Performed By: #### L 3300.9900, L503.6030, L506.0400, L506.1000, L3300.8000, L100.0500, L503.6550, L503.0105, L501.9520, L500.4050, L501.9985, L500.4100, L506.0250 ####[facility] [address] [place], [place], [address] AST [Catalytic activity/Vol] 12 U/L Low 15-37 [facility] Comment on above: Order Comment: Y Performed By: #### L 3300.9900, L503.6030, L506.0400, L506.1000, L3300.8000, L100.0500, L503.6550, L503.0105, L501.9520, L500.4050, L501.9985, L500.4100, L506.0250 ####[facility] [address] [place], [place], [address] Bilirubin [Mass/Vol] 0.20 mg/dL Normal 0.20-1.00 [facility] Comment on above: Order Comment: Y Result Comment: For patients on eltrombopag therapy, use of Dimension [place] TBIL is not recommended. Performed By: #### L 3300.9900, L503.6030, L506.0400, L506.1000, L3300.8000, L100.0500, L503.6550, L503.0105, L501.9520, L500.4050, L501.9985, L500.4100, L506.0250 ####[facility] [address] [place], [address] BUN/CRE 9.7 RATIO Low 10-20 [facility] Comment on above: Order Comment: Y Performed By: #### L 3300.9900, L503.6030, L506.0400, L506.1000, L3300.8000, L100.0500, L503.6550, L503.0105, L501.9520, L500.4050, L501.9985, L500.4100, L506.0250 ####[facility] [address] [place], [place], [phone](019) CA,Total 9.5 mg/dL Normal 8.5-10.1 [facility] Comment on above: Order Comment: Y Performed By: #### L 3300.9900, L503.6030, L506.0400, L506.1000, L3300.8000, L100.0500, L503.6550, L503.0105, L501.9520, L500.4050, L501.9985, L500.4100, L506.0250 ####[facility] [address] [place], [place], [phone](108) Chloride [Moles/Vol] 106 mmol/L Normal 98-107 [facility] Comment on above: Order Comment: Y Performed By: #### L 3300.9900, L503.6030, L506.0400, L506.1000, L3300.8000, L100.0500, L503.6550, L503.0105, L501.9520, L500.4050, L501.9985, L500.4100, L506.0250 ####[facility] [address] [place], [place], [phone](024) CO2 [Moles/Vol] 27.0 mmol/L Normal 21.0-32.0 [facility] Comment on above: Order Comment: Y Performed By: #### L 3300.9900, L503.6030, L506.0400, L506.1000, L3300.8000, L100.0500, L503.6550, L503.0105, L501.9520, L500.4050, L501.9985, L500.4100, L506.0250 ####[facility] [address] [place], [address] Creatinine [Mass/Vol] 0.93 mg/dL Normal 0.55-1.02 [facility] Comment on above: Order Comment: Y Result Comment: The validity of the calculated GFR GFRAA in patients over 70 years has not been determined. Clinical correlation is essential. Performed By: #### L 3300.9900, L503.6030, L506.0400, L506.1000, L3300.8000, L100.0500, L503.6550, L503.0105, L501.9520, L500.4050, L501.9985, L500.4100, L506.0250 ####[facility] [address] [place], [place], [address] EST GFR - AA 81 mL/min Normal >60 [facility] Comment on above: Order Comment: Y Result Comment: Afri can Mongolian GFR Calc Performed By: #### L 3300.9900, L503.6030, L506.0400, L506.1000, L3300.8000, L100.0500, L503.6550, L503.0105, L501.9520, L500.4050, L501.9985, L500.4100, L506.0250 ####[facility] [address] [place], [place], [address] GAP 8 Normal 5-15 [facility] Comment on above: Order Comment: Y Performed By: #### L 3300.9900, L503.6030, L506.0400, L506.1000, L3300.8000, L100.0500, L503.6550, L503.0105, L501.9520, L500.4050, L501.9985, L500.4100, L506.0250 ####[facility] [address] [place], [address] GFR/1.73 sq M.predicted among non-blacks MDRD (S/P/Bld) [Vol rate/Area] 67 mL/min/{1.73_m2} Normal >60 [facility] Comment on above: Order Comment: Y Result Comment: Non- GFR Calc Performed By: #### L 3300.9900, L503.6030, L506.0400, L506.1000, L3300.8000, L100.0500, L503.6550, L503.0105, L501.9520, L500.4050, L501.9985, L500.4100, L506.0250 ####[facility] [address] [place], [address] Globulin (S) [Mass/Vol] 4.0 g/dL Normal 2.2-4.2 [facility] Comment on above: Order Comment: Y Performed By: #### L 3300.9900, L503.6030, L506.0400, L506.1000, L3300.8000, L100.0500, L503.6550, L503.0105, L501.9520, L500.4050, L501.9985, L500.4100, L506.0250 ####[facility] [address] [place], [address] Glucose [Mass/Vol] 148 mg/dL High 74-106 [facility] Comment on above: Order Comment: Y Result Comment: Fast ing Glucose result greater than or equal to 126 mg/dL suggests DIABETES MELLITUS per A.D.A. criteria. Performed By: #### L 3300.9900, L503.6030, L506.0400, L506.1000, L3300.8000, L100.0500, L503.6550, L503.0105, L501.9520, L500.4050, L501.9985, L500.4100, L506.0250 ####[facility] [address] [place], [address] Potassium [Moles/Vol] 4.3 mmol/L Normal 3.5-5.1 [facility] Comment on above: Order Comment: Y Performed By: #### L 3300.9900, L503.6030, L506.0400, L506.1000, L3300.8000, L100.0500, L503.6550, L503.0105, L501.9520, L500.4050, L501.9985, L500.4100, L506.0250 ####[facility] [address] [place], [address] Sodium [Moles/Vol] 141 mmol/L Normal 136-145 [facility] Comment on above: Order Comment: Y Performed By: #### L 3300.9900, L503.6030, L506.0400, L506.1000, L3300.8000, L100.0500, L503.6550, L503.0105, L501.9520, L500.4050, L501.9985, L500.4100, L506.0250 ####[facility] [address] [place], [address] T PROT 7.7 g/dL Normal 6.4-8.2 [facility] Comment on above: Order Comment: Y Performed By: #### L 3300.9900, L503.6030, L506.0400, L506.1000, L3300.8000, L100.0500, L503.6550, L503.0105, L501.9520, L500.4050, L501.9985, L500.4100, L506.0250 ####[facility] [address] [place], [place], [phone](364) Urea nitrogen [Mass/Vol] 9 mg/dL Normal 7-18 [facility] Comment on above: Order Comment: Y Performed By: #### L 3300.9900, L503.6030, L506.0400, L506.1000, L3300.8000, L100.0500, L503.6550, L503.0105, L501.9520, L500.4050, L501.9985, L500.4100, L506.0250 ####[facility] [address] [place], [place], [phone] Ferritinon 07-01-2024 Ferritin [Mass/Vol] 34 ng/mL Normal 8-252 [facility] Comment on above: Order Comment: Y Performed By: #### L 3300.9900, L503.6030, L506.0400, L506.1000, L3300.8000, L100.0500, L503.6550, L503.0105, L501.9520, L500.4050, L501.9985, L500.4100, L506.0250 ####[facility] [address] [place], [place], [phone] Folates, (Folic Acid)on 06-12 FOLATES 14.10 ng/mL Normal 3.1-55.4 [facility] Comment on above: Order Comment: Y Performed By: #### L 3300.9900, L503.6030, L506.0400, L506.1000, L3300.8000, L100.0500, L503.6550, L503.0105, L501.9520, L500.4050, L501.9985, L500.4100, L506.0250 ####[facility] [address] [place], [place], [address] Hemoglobin A1con 07-01-2024 HbA1c (Bld) [Mass fraction] 5.4 % Normal 3.8-5.6 [facility] Comment on above: Result Comment: Norm al < 5.7 % Prediabetic 5.7 - 6.4 % Diabetic >or= 6.5 % Please note range changes. Performed By: #### L 3300.9900, L503.6030, L506.0400, L506.1000, L3300.8000, L100.0500, L503.6550, L503.0105, L501.9520, L500.4050, L501.9985, L500.4100, L506.0250 ####[facility] [address] [place], [address] Iron+Iron Binding Capacityon 07-01-2024 Iron [Mass/Vol] 53 ug/dL Normal 50-170 [facility] Comment on above: Order Comment: Y Performed By: #### L 3300.9900, L503.6030, L506.0400, L506.1000, L3300.8000, L100.0500, L503.6550, L503.0105, L501.9520, L500.4050, L501.9985, L500.4100, L506.0250 ####[facility] [address] [place], [place], [address] IRON SATURATION 16.3 Normal 15.0-55.0 [facility] Comment on above: Order Comment: Y Performed By: #### L 3300.9900, L503.6030, L506.0400, L506.1000, L3300.8000, L100.0500, L503.6550, L503.0105, L501.9520, L500.4050, L501.9985, L500.4100, L506.0250 ####[facility] [address] [place], [place], [address] TIBC 326 ug/dL Normal 250-450 [facility] Comment on above: Order Comment: Y Performed By: #### L 3300.9900, L503.6030, L506.0400, L506.1000, L3300.8000, L100.0500, L503.6550, L503.0105, L501.9520, L500.4050, L501.9985, L500.4100, L506.0250 ####[facility] [address] [place], [place], [address] Lipid Profileon 07-01-2024 Cholesterol [Mass/Vol] 169 mg/dL Normal 200 [facility] Comment on above: Order Comment: Y Result Comment: <200 mg/dL Desirable 200-240 mg/dL Borderline >240 mg/dL High Risk Performed By: #### L 3300.9900, L503.6030, L506.0400, L506.1000, L3300.8000, L100.0500, L503.6550, L503.0105, L501.9520, L500.4050, L501.9985, L500.4100, L506.0250 ####[facility] [address] [place], [place], [address] Cholesterol in HDL [Mass/Vol] 77 mg/dL Normal [facility] Comment on above: Order Comment: Y Result Comment: The drugs N-Acetylcysteine and Metamizole may falsely depress this assay. Reference Range HDL <40 mg/dL Low HDL Cholesterol HDL >or= 60 mg/dL High HDL Cholesterol Performed By: #### L 3300.9900, L503.6030, L506.0400, L506.1000, L3300.8000, L100.0500, L503.6550, L503.0105, L501.9520, L500.4050, L501.9985, L500.4100, L506.0250 ####[facility] [address] [place], [address] Cholesterol in LDL [Mass/Vol] 71 mg/dL Normal 0-130 [facility] Comment on above: Order Comment: Y Performed By: #### L 3300.9900, L503.6030, L506.0400, L506.1000, L3300.8000, L100.0500, L503.6550, L503.0105, L501.9520, L500.4050, L501.9985, L500.4100, L506.0250 ####[facility] [address] [place], [address] Cholesterol in VLDL [Mass/Vol] 21 mg/dL Normal 5-40 [facility] Comment on above: Order Comment: Y Performed By: #### L 3300.9900, L503.6030, L506.0400, L506.1000, L3300.8000, L100.0500, L503.6550, L503.0105, L501.9520, L500.4050, L501.9985, L500.4100, L506.0250 ####[facility] [address] [place], [address] Triglyceride [Mass/Vol] 105 mg/dL Normal [facility] Comment on above: Order Comment: Y Result Comment: The drugs N-Acetylcysteine and Metamizole may falsely depress this assay. Serum Triglycerides Reference Interval Normal <150 mg/dL Borderline high 150 - 199 mg/dL High 200 - 499 mg/dL Very High > or = 500 mg/dL Performed By: #### L 3300.9900, L503.6030, L506.0400, L506.1000, L3300.8000, L100.0500, L503.6550, L503.0105, L501.9520, L500.4050, L501.9985, L500.4100, L506.0250 ####[facility] [address] [place], [address] T4 Free Directon 07-01-2024 T4 FREE DIRECT 0.87 ng/dL Normal 0.76-1.46 [facility] Comment on above: Order Comment: Y Performed By: #### L 3300.9900, L503.6030, L506.0400, L506.1000, L3300.8000, L100.0500, L503.6550, L503.0105, L501.9520, L500.4050, L501.9985, L500.4100, L506.0250 ####[facility] [address] [place], [address] Thyroid Stim Hormone (TSH)on 07-01-2024 TSH 0.846 uIU/mL Normal 0.358-3.74 0 [facility] Comment on above: Order Comment: Y Performed By: #### L 3300.9900, L503.6030, L506.0400, L506.1000, L3300.8000, L100.0500, L503.6550, L503.0105, L501.9520, L500.4050, L501.9985, L500.4100, L506.0250 ####[facility] [address] [place], [address] Vitamin B12on 07-01-2024 Cobalamin (Vitamin B12) [Mass/Vol] 408 pg/mL Normal 211-911 [facility] Comment on above: Performed By: #### L 3300.9900, L503.6030, L506.0400, L506.1000, L3300.8000, L100.0500, L503.6550, L503.0105, L501.9520, L500.4050, L501.9985, L500.4100, L506.0250 ####[facility] [address] [place], [address] Vitamin D,25 Hydroxyon 07-01 Vitamin D 25-OH 29.0 ng/mL Normal [facility] Comment on above: Result Comment: Araceli min D 25(OH) Status Range Deficiency <20 ng/mL (50nmol/L) Insufficiency 20 - 30 ng/mL (50 - 75 nmol/L) Sufficiency 30 - 100 ng/mL (75 - 250 nmol/L) Toxicity >100 ng/mL (>250 nmol/L) Performed By: #### L 3300.9900, L503.6030, L506.0400, L506.1000, L3300.8000, L100.0500, L503.6550, L503.0105, L501.9520, L500.4050, L501.9985, L500.4100, L506.0250 ####[facility] [address] [place], [address] Chest without Contraston Chest without Contrast [facility] Imaging Services [address] [place] [address] Chest without Contrast MR#: [id number] Acct: [id number] Name: AMANDA GRUBBS Rep #: [id number] : 1970 F 54 From: Kervin marvin MD PCP: Dr. Franky Pearson, DO Status: REG CLI Study: Chest without Contrast Date of Exam: 06/30/24 Exam# [id number] Ordering Dr: Rolan Valdes NP ACID LOADER-C [id number] STUDY: CT CHEST WITHOUT CONTRAST REASON FOR [...] EST , CC: ANA Valdes; Dr. Franky Pearson DO Program Review Director: Signed Normal [facility] Office Visit Reporton 2024 Office Visit Report [facility] [address] [place] [address] OFFICE VISIT Date of Service: 06/27/24 MR#: [id number] Acct: [id number] Patient: AMANDA GRUBBS Rep #: [id number] : 1970 Provider: BLU Clinton Age/Sex: 54/F Location[place] [facility] Status: Signed Employer Purchased Covid Test Note: Patient here today for Covid Testing, requested by their Employer. Assessment and Plan Assessment and Plan Orders: Orders POC Cepheid Covid, FluAB, RSV Today Plan Details Goals Barriers: Goals Decrease pain Decrease spasm Decrease HAs 06/27/24 1023 Date Hans HURT Cosigner Signature: Date (if applicable) CC: Normal [facility] Urgent Care Visit Reporton 0 06-27-2024 Urgent Care Visit Report [facility] [address], [address] [place] [address] OFFICE VISIT Date of Service: 06/27/24 MR#: [id number] Acct: [id number] Name: AMANDA GRUBBS Rep #: [id number] : 1970 Provider: BLU Clinton Age/Sex: 54/F Location: [facility] Status: Signed Intake Vital Signs 06/13/24 12:45 06/27/24 10:16 Height 5 ft 3 in BP 114/70 Blood Pressure Location Lt brachial Position Sitting Respiration 17 Pulse 88 Pulse Source NIBP Temp 97.8 F Temp Source Oral Pulse Oximetry (%) 98 Oxygen Delivery Method room air Intake Visit Reasons: COUGH, HEADACHE Chief Complaint: cough, [place], ST, chest congest, BA, chills Side Sawyer Required: No Is patient in pain?: No [...] Hans HURT (more content not included)... Normal [facility] CREATININE FINGERSTICKon CREATININE WB < 1.0 Normal 0.55-1.02 [facility] Comment on above: Performed By: #### L 9100.0200 ####[facility] [address] [place], [address] EGFR WB > 60.0000 Normal >60 [facility] Comment on above: Performed By: #### L 9100.0200 ####[facility] [address] [facility] [place], [place], [address] Coronary Angiography CTon Coronary Angiography CT [facility] Imaging Services [address] [place] [address] 06/13/24 1556 MR#: [id number] Acct: [id number] Name: AMANDA GRUBBS Rep #: [id number] : 1970 53 From: Allan Coleman MD [...] DO; Dr. Franky Hollingsworth MD Signed Normal [facility] Limited Chest CT Cardiac Onl yon 06-13-[address] Cardiac Only [facility] Imaging Services [address] [place] [id number] Cardiac Only MR#: [id number] Acct: [id number] Name: AMANDA GRUBBS Rep #: [id number] : 1970 F 53 From: Kervin marvin MD PCP: Dr. Franky Pearson DO Status: REG CLI Study: Limited Chest CT Cardiac Only Date of Exam: Exam# [id number] Ordering Dr: Franky Hollingsworth MD [id number] STUDY: CT CHEST WITH CONTRAST REASON FOR [...] 11:17 EST Reading Location ID and State: [address] [place] [address] , Service support , CC: Dr. Franky Pearson DO; Dr. Franky Hollingsworth MD Program Review Director: Signed Normal [facility] Oncology Visit Reporton Oncology Visit Report [facility] [address] [place] [address] OFFICE VISIT Date of Service: 05/13/24 1633 MR#: [id number] Acct: [id number] Name: AMANDA GRUBBS Rep #: [id number] : 1970 From: Santiago Og MD Age/Sex: 53/F Location[place] [facility] Status: Signed HPI Subjective Date of Service 05/13/24 Chief Complaint F/u for anemia. History of Present Illness 53y.o.woman with history of Gastric bypass in 2018 was found to have Iron deficiency anemia, started on oral Iron but has not improved so referred for further evaluation. Denied weight loss, fever, gets night sweats. PFSH [...] 16:36) Medications ???Medication ???Instructions ???Recorded ???Confirmed ???Type wvkmdqdyka-jgcbnslqcnpty-re ffeine 1 cap PO Q8H PRN 01/16/23 [...] 05/13/241707 Date (more content not included)... Normal [facility] L501.5101on 05-08-2024 GGTP 66 IU/L Abnormal 0-60 [facility] Comment on above: Order Comment: ADD T O BLOOD IN LAB. THANK YOU!! Result Comment: Perf ormed at: - [facility] [address] [id number] Casting Assistant: Robson Cedeno PhD, Phone: [phone] Performed By: #### L 501.510 #### [facility] [address] [place], [place], [address] CBC W/Diff, Automatedon 04-12 Absolute Lymph 2.06 X10 3/uL Normal 0.83-4.51 [facility] Comment on above: Performed By: #### L 101.9900, L503.6550, L500.4050, L100.0100, L100.9950, L501.6710, L503.6030, L501.5200, L501.2300, L503.0105, L504.2610, L506.0250 ####[facility] [address] [place], [place], [address] Absolute Neut 3.7 X10 3/uL Normal 2.0-7.7 [facility] Comment on above: Performed By: #### L 101.9900, L503.6550, L500.4050, L100.0100, L100.9950, L501.6710, L503.6030, L501.5200, L501.2300, L503.0105, L504.2610, L506.0250 ####[facility] [address] [place], [address](324) Basophils/100 WBC (Bld) 0.6 % Normal 0-1 [facility] Comment on above: Performed By: #### L 101.9900, L503.6550, L500.4050, L100.0100, L100.9950, L501.6710, L503.6030, L501.5200, L501.2300, L503.0105, L504.2610, L506.0250 ####[facility] [address] [place], [address](450) Eosinophils/100 WBC (Bld) 1.1 % Normal 0-5 [facility] Comment on above: Performed By: #### L 101.9900, L503.6550, L500.4050, L100.0100, L100.9950, L501.6710, L503.6030, L501.5200, L501.2300, L503.0105, L504.2610, L506.0250 ####[facility] [address] [place], [address] Erythrocyte distribution width (RBC) [Ratio] 12.4 % Normal 11.6-14.6 [facility] Comment on above: Performed By: #### L 101.9900, L503.6550, L500.4050, L100.0100, L100.9950, L501.6710, L503.6030, L501.5200, L501.2300, L503.0105, L504.2610, L506.0250 ####[facility] [address] [place], [address](047) Hematocrit (Bld) [Volume fraction] 37.6 % Normal 37-47 [facility] Comment on above: Performed By: #### L 101.9900, L503.6550, L500.4050, L100.0100, L100.9950, L501.6710, L503.6030, L501.5200, L501.2300, L503.0105, L504.2610, L506.0250 ####[facility] [address] [place], [address] Hemoglobin (Bld) [Mass/Vol] 12.4 g/dL Normal 12.0-15.0 [facility] Comment on above: Performed By: #### L 101.9900, L503.6550, L500.4050, L100.0100, L100.9950, L501.6710, L503.6030, L501.5200, L501.2300, L503.0105, L504.2610, L506.0250 ####[facility] [address] [place], [address] IG% 0.200 Normal 0.0-0.9 [facility] Comment on above: Result Comment: IG% - Immature Granulocytes (promyelocytes, myelocytes and metamyelocytes) > 1% indicates that a LEFT SHIFT is Present. Performed By: #### L 101.9900, L503.6550, L500.4050, L100.0100, L100.9950, L501.6710, L503.6030, L501.5200, L501.2300, L503.0105, L504.2610, L506.0250 ####[facility] [address] [facility] [place], [address] Lymphocytes/100 WBC (Bld) 32.6 % Normal 19-41 [facility] Comment on above: Performed By: #### L 101.9900, L503.6550, L500.4050, L100.0100, L100.9950, L501.6710, L503.6030, L501.5200, L501.2300, L503.0105, L504.2610, L506.0250 ####[facility] [address] [place], [address] MCH (RBC) [Entitic mass] 30.7 pg Normal 27.0-32.0 [facility] Comment on above: Performed By: #### L 101.9900, L503.6550, L500.4050, L100.0100, L100.9950, L501.6710, L503.6030, L501.5200, L501.2300, L503.0105, L504.2610, L506.0250 ####[facility] [address] [place], [address] MCHC (RBC) [Mass/Vol] 33.0 g/dL Normal 32-36 [facility] Comment on above: Performed By: #### L 101.9900, L503.6550, L500.4050, L100.0100, L100.9950, L501.6710, L503.6030, L501.5200, L501.2300, L503.0105, L504.2610, L506.0250 ####[facility] [address] [place], [address]( MCV (RBC) [Entitic vol] 93.1 fL Normal 81-99 [facility] Comment on above: Performed By: #### L 101.9900, L503.6550, L500.4050, L100.0100, L100.9950, L501.6710, L503.6030, L501.5200, L501.2300, L503.0105, L504.2610, L506.0250 ####[facility] [address] [place], [address]( Monocytes/100 WBC (Bld) 7.3 % Normal 0-10 [facility] Comment on above: Performed By: #### L 101.9900, L503.6550, L500.4050, L100.0100, L100.9950, L501.6710, L503.6030, L501.5200, L501.2300, L503.0105, L504.2610, L506.0250 ####[facility] [address] [place], [address] Neutrophils/100 WBC (Bld) 58.2 % Normal 47-70 [facility] Comment on above: Performed By: #### L 101.9900, L503.6550, L500.4050, L100.0100, L100.9950, L501.6710, L503.6030, L501.5200, L501.2300, L503.0105, L504.2610, L506.0250 ####[facility] [address] [place], [address] Nucleated RBC (Bld) [#/Vol] 0 10*3/uL Normal 0-5 [facility] Comment on above: Performed By: #### L 101.9900, L503.6550, L500.4050, L100.0100, L100.9950, L501.6710, L503.6030, L501.5200, L501.2300, L503.0105, L504.2610, L506.0250 ####[facility] [address] [place], [address] Platelet mean volume (Bld) [Entitic vol] 9.1 fL Normal 6.2-12.0 [facility] Comment on above: Performed By: #### L 101.9900, L503.6550, L500.4050, L100.0100, L100.9950, L501.6710, L503.6030, L501.5200, L501.2300, L503.0105, L504.2610, L506.0250 ####[facility] [address] [place], [address] Platelets (Bld) [#/Vol] 305 10*3/uL Normal 150-450 [facility] Comment on above: Performed By: #### L 101.9900, L503.6550, L500.4050, L100.0100, L100.9950, L501.6710, L503.6030, L501.5200, L501.2300, L503.0105, L504.2610, L506.0250 ####[facility] [address] [place], [place], [phone](254) RBC (Bld) [#/Vol] 4.04 10*6/uL Low 4.2-5.4 [facility] Comment on above: Performed By: #### L 101.9900, L503.6550, L500.4050, L100.0100, L100.9950, L501.6710, L503.6030, L501.5200, L501.2300, L503.0105, L504.2610, L506.0250 ####[facility] [address] [place], [place], [address](918) RDW SD 42.5 fl Normal 35.1-43.9 [facility] Comment on above: Performed By: #### L 101.9900, L503.6550, L500.4050, L100.0100, L100.9950, L501.6710, L503.6030, L501.5200, L501.2300, L503.0105, L504.2610, L506.0250 ####[facility] [address] [place], [place], [address](242) WBC (Bld) [#/Vol] 6.3 10*3/uL Normal 4.4-11.0 [facility] Comment on above: Performed By: #### L 101.9900, L503.6550, L500.4050, L100.0100, L100.9950, L501.6710, L503.6030, L501.5200, L501.2300, L503.0105, L504.2610, L506.0250 ####[facility] [address] [place], [place], [address] CRPon 05-06-2024 C-REACTIVE PROT < 2.90 Normal 0.0-3.0 [facility] Comment on above: Order Comment: UNKNO WN1N Result Comment: C-Re active Protein (CRP) provides useful information for the diagnosis, therapy and monitoring of inflammatory processes and associated diseases. For the evaluation of Relative Risk for Cardiovascular Disease, a High Sensitivity CRP (HSCRP) should be ordered. Performed By: #### L 101.9900, L503.6550, L500.4050, L100.0100, L100.9950, L501.6710, L503.6030, L501.5200, L501.2300, L503.0105, L504.2610, L506.0250 ####[facility] [address] [place], [address] Comprehensive Metabolic Prof ilon 05-06-2024 Albumin [Mass/Vol] 4.1 g/dL Normal 3.2-5.0 [facility] Comment on above: Order Comment: UNKNO WN1N Performed By: #### L 101.9900, L503.6550, L500.4050, L100.0100, L100.9950, L501.6710, L503.6030, L501.5200, L501.2300, L503.0105, L504.2610, L506.0250 ####[facility] [address] [place], [place], [address] Albumin/Globulin [Mass ratio] 1.2 {ratio} Normal 0.9-2.4 [facility] Comment on above: Order Comment: UNKNO WN1N Performed By: #### L 101.9900, L503.6550, L500.4050, L100.0100, L100.9950, L501.6710, L503.6030, L501.5200, L501.2300, L503.0105, L504.2610, L506.0250 ####[facility] [address] [place], [address] ALK P 88 U/L Normal 45-117 [facility] Comment on above: Order Comment: UNKNO WN1N Performed By: #### L 101.9900, L503.6550, L500.4050, L100.0100, L100.9950, L501.6710, L503.6030, L501.5200, L501.2300, L503.0105, L504.2610, L506.0250 ####[facility] [address] [place], [address] ALT [Catalytic activity/Vol] 89 U/L High 13-56 [facility] Comment on above: Order Comment: UNKNO WN1N Performed By: #### L 101.9900, L503.6550, L500.4050, L100.0100, L100.9950, L501.6710, L503.6030, L501.5200, L501.2300, L503.0105, L504.2610, L506.0250 ####[facility] [address] [place], [place], [address] AST [Catalytic activity/Vol] 46 U/L High 15-37 [facility] Comment on above: Order Comment: UNKNO WN1N Performed By: #### L 101.9900, L503.6550, L500.4050, L100.0100, L100.9950, L501.6710, L503.6030, L501.5200, L501.2300, L503.0105, L504.2610, L506.0250 ####[facility] [address] [place], [place], [id number] Bilirubin [Mass/Vol] 0.20 mg/dL Normal 0.20-1.00 [facility] Comment on above: Order Comment: UNKNO WN1N Result Comment: For patients on eltrombopag therapy, use of Dimension [place] TBIL is not recommended. Performed By: #### L 101.9900, L503.6550, L500.4050, L100.0100, L100.9950, L501.6710, L503.6030, L501.5200, L501.2300, L503.0105, L504.2610, L506.0250 ####[facility] [address] [place], [place], [address](535) BUN/CRE 7.7 RATIO Low 10-20 [facility] Comment on above: Order Comment: UNKNO WN1N Performed By: #### L 101.9900, L503.6550, L500.4050, L100.0100, L100.9950, L501.6710, L503.6030, L501.5200, L501.2300, L503.0105, L504.2610, L506.0250 ####[facility] [address] [place], [place], [address](307) CA,Total 9.6 mg/dL Normal 8.5-10.1 [facility] Comment on above: Order Comment: UNKNO WN1N Performed By: #### L 101.9900, L503.6550, L500.4050, L100.0100, L100.9950, L501.6710, L503.6030, L501.5200, L501.2300, L503.0105, L504.2610, L506.0250 ####[facility] [address] [place], [place], [address](772) Chloride [Moles/Vol] 107 mmol/L Normal 98-107 [facility] Comment on above: Order Comment: UNKNO WN1N Performed By: #### L 101.9900, L503.6550, L500.4050, L100.0100, L100.9950, L501.6710, L503.6030, L501.5200, L501.2300, L503.0105, L504.2610, L506.0250 ####[facility] [address] [place], [place], [address](081) CO2 [Moles/Vol] 26.0 mmol/L Normal 21.0-32.0 [facility] Comment on above: Order Comment: UNKNO WN1N Performed By: #### L 101.9900, L503.6550, L500.4050, L100.0100, L100.9950, L501.6710, L503.6030, L501.5200, L501.2300, L503.0105, L504.2610, L506.0250 ####[facility] [address] [place], [place], [address](651) Creatinine [Mass/Vol] 0.78 mg/dL Normal 0.55-1.02 [facility] Comment on above: Order Comment: UNKNO WN1N Result Comment: The validity of the calculated GFR GFRAA in patients over 70 years has not been determined. Clinical correlation is essential. Performed By: #### L 101.9900, L503.6550, L500.4050, L100.0100, L100.9950, L501.6710, L503.6030, L501.5200, L501.2300, L503.0105, L504.2610, L506.0250 ####[facility] [address] [place], [place], [address] EST GFR - AA 99 mL/min Normal >60 [facility] Comment on above: Order Comment: UNKNO WN1N Result Comment: Afri can Mongolian GFR Calc Performed By: #### L 101.9900, L503.6550, L500.4050, L100.0100, L100.9950, L501.6710, L503.6030, L501.5200, L501.2300, L503.0105, L504.2610, L506.0250 ####[facility] [address] [place], [place], [address](506) GAP 7 Normal 5-15 [facility] Comment on above: Order Comment: UNKNO WN1N Performed By: #### L 101.9900, L503.6550, L500.4050, L100.0100, L100.9950, L501.6710, L503.6030, L501.5200, L501.2300, L503.0105, L504.2610, L506.0250 ####[facility] [address] [place], [place], [address](997) GFR/1.73 sq M.predicted among non-blacks MDRD (S/P/Bld) [Vol rate/Area] 82 mL/min/{1.73_m2} Normal >60 [facility] Comment on above: Order Comment: UNKNO WN1N Result Comment: Non- GFR Calc Performed By: #### L 101.9900, L503.6550, L500.4050, L100.0100, L100.9950, L501.6710, L503.6030, L501.5200, L501.2300, L503.0105, L504.2610, L506.0250 ####[facility] [address] [place], [place], [address](923) Globulin (S) [Mass/Vol] 3.5 g/dL Normal 2.2-4.2 [facility] Comment on above: Order Comment: UNKNO WN1N Performed By: #### L 101.9900, L503.6550, L500.4050, L100.0100, L100.9950, L501.6710, L503.6030, L501.5200, L501.2300, L503.0105, L504.2610, L506.0250 ####[facility] [address] [place], [place], [address](674) Glucose [Mass/Vol] 75 mg/dL Normal 74-106 [facility] Comment on above: Order Comment: UNKNO WN1N Performed By: #### L 101.9900, L503.6550, L500.4050, L100.0100, L100.9950, L501.6710, L503.6030, L501.5200, L501.2300, L503.0105, L504.2610, L506.0250 ####[facility] [address] [place], [address] Potassium [Moles/Vol] 4.3 mmol/L Normal 3.5-5.1 [facility] Comment on above: Order Comment: UNKNO WN1N Performed By: #### L 101.9900, L503.6550, L500.4050, L100.0100, L100.9950, L501.6710, L503.6030, L501.5200, L501.2300, L503.0105, L504.2610, L506.0250 ####[facility] [address] [place], [place], [address](984) Sodium [Moles/Vol] 140 mmol/L Normal 136-145 [facility] Comment on above: Order Comment: UNKNO WN1N Performed By: #### L 101.9900, L503.6550, L500.4050, L100.0100, L100.9950, L501.6710, L503.6030, L501.5200, L501.2300, L503.0105, L504.2610, L506.0250 ####[facility] [address] [place], [place], [address](167) T PROT 7.6 g/dL Normal 6.4-8.2 [facility] Comment on above: Order Comment: UNKNO WN1N Performed By: #### L 101.9900, L503.6550, L500.4050, L100.0100, L100.9950, L501.6710, L503.6030, L501.5200, L501.2300, L503.0105, L504.2610, L506.0250 ####[facility] [address] [place], [place], [address] Urea nitrogen [Mass/Vol] 6 mg/dL Low 7-18 [facility] Comment on above: Order Comment: UNKNO WN1N Performed By: #### L 101.9900, L503.6550, L500.4050, L100.0100, L100.9950, L501.6710, L503.6030, L501.5200, L501.2300, L503.0105, L504.2610, L506.0250 ####[facility] [address] [place], [address] Erythrocyte Sed Rateon 05-06 SED RATE 8 mm/hr Normal 0-30 [facility] Comment on above: Performed By: #### L 101.9900, L503.6550, L500.4050, L100.0100, L100.9950, L501.6710, L503.6030, L501.5200, L501.2300, L503.0105, L504.2610, L506.0250 ####[facility] [address] [place], [address] Ferritinon 05-06-2024 Ferritin [Mass/Vol] 21 ng/mL Normal 8-252 [facility] Comment on above: Order Comment: UNKNO WN1N Performed By: #### L 101.9900, L503.6550, L500.4050, L100.0100, L100.9950, L501.6710, L503.6030, L501.5200, L501.2300, L503.0105, L504.2610, L506.0250 ####[facility] [address] [place], [place], [address] Folates, (Folic Acid)on 04-12 FOLATES 19.70 ng/mL Normal 3.1-55.4 [facility] Comment on above: Order Comment: UNKNO WN1N Performed By: #### L 101.9900, L503.6550, L500.4050, L100.0100, L100.9950, L501.6710, L503.6030, L501.5200, L501.2300, L503.0105, L504.2610, L506.0250 ####[facility] [address] [place], [place], [id number] Iron+Iron Binding Capacityon 05-06-2024 Iron [Mass/Vol] 73 ug/dL Normal 50-170 [facility] Comment on above: Order Comment: UNKNO WN1N Performed By: #### L 101.9900, L503.6550, L500.4050, L100.0100, L100.9950, L501.6710, L503.6030, L501.5200, L501.2300, L503.0105, L504.2610, L506.0250 ####[facility] [address] [place], [place], [id number] IRON SATURATION 19.2 Normal 15.0-55.0 [facility] Comment on above: Order Comment: UNKNO WN1N Performed By: #### L 101.9900, L503.6550, L500.4050, L100.0100, L100.9950, L501.6710, L503.6030, L501.5200, L501.2300, L503.0105, L504.2610, L506.0250 ####[facility] [address] [place], [place], [id number] TIBC 380 ug/dL Normal 250-450 [facility] Comment on above: Order Comment: UNKNO WN1N Performed By: #### L 101.9900, L503.6550, L500.4050, L100.0100, L100.9950, L501.6710, L503.6030, L501.5200, L501.2300, L503.0105, L504.2610, L506.0250 ####[facility] [address] [place], [place], [address] LDHon 05-06-2024 LDH 211 U/L Normal 84-246 [facility] Comment on above: Order Comment: UNKNO WN1N Performed By: #### L 101.9900, L503.6550, L500.4050, L100.0100, L100.9950, L501.6710, L503.6030, L501.5200, L501.2300, L503.0105, L504.2610, L506.0250 ####[facility] [address] [place], [place], [id number] Magnesiumon 05-06-2024 Magnesium [Mass/Vol] 2.2 mg/dL Normal 1.6-2.6 [facility] Comment on above: Order Comment: UNKNO WN1N Performed By: #### L 101.9900, L503.6550, L500.4050, L100.0100, L100.9950, L501.6710, L503.6030, L501.5200, L501.2300, L503.0105, L504.2610, L506.0250 ####[facility] [address] [place], [place], [address] Oncology Visit Reporton 04-12 Oncology Visit Report [facility] [address] [place] [address] OFFICE VISIT Date of Service: 05/06/24 1045 MR#: [id number] Acct: [id number] Name: AMANDA GRUBBS Rep #: [id number] : 1970 From: Santiago Og MD Age/Sex: 53/F [place] [facility] [place] Status: Signed HPI Subjective Date of Service [...] 10:50) Medications ???Medication ???Instructions ???Recorded ???Confirmed ???Type prrovehccy-djduqbfjgnzua-ov ffeine 1 cap PO Q8H PRN 01/16/23 [...] 05/06/24 His (more content not included)... Normal [facility] Phosphoruson 05-06-2024 Phosphate [Mass/Vol] 4.5 mg/dL Normal 2.5-4.9 [facility] Comment on above: Order Comment: ANNIKA [id number] Performed By: #### L 101.9900, L503.6550, L500.4050, L100.0100, L100.9950, L501.6710, L503.6030, L501.5200, L501.2300, L503.0105, L504.2610, L506.0250 ####[facility] [address] [place], [place], [address] Retic Panelon 05-06-2024 IM RET FRACTION 14.20 Normal 3.00-15.90 [facility] Comment on above: Performed By: #### L 101.9900, L503.6550, L500.4050, L100.0100, L100.9950, L501.6710, L503.6030, L501.5200, L501.2300, L503.0105, L504.2610, L506.0250 ####[facility] [address] [place], [place], [id number] RET-HE 34.6 pg Normal 30-35 [facility] Comment on above: Performed By: #### L 101.9900, L503.6550, L500.4050, L100.0100, L100.9950, L501.6710, L503.6030, L501.5200, L501.2300, L503.0105, L504.2610, L506.0250 ####[facility] [address] [place], [place], [id number] Retic Count 1.33 Normal 0.5-1.5 [facility] Comment on above: Performed By: #### L 101.9900, L503.6550, L500.4050, L100.0100, L100.9950, L501.6710, L503.6030, L501.5200, L501.2300, L503.0105, L504.2610, L506.0250 ####[facility] [address] [place], [address] Vitamin B12on 05-06-2024 Cobalamin (Vitamin B12) [Mass/Vol] 720 pg/mL Normal 211-911 [facility] Comment on above: Performed By: #### L 101.9900, L503.6550, L500.4050, L100.0100, L100.9950, L501.6710, L503.6030, L501.5200, L501.2300, L503.0105, L504.2610, L506.0250 ####[facility] [address] [place], [address] 12 Lead EKG performed by [facility] on 05-05-2024 12 Lead EKG performed by [facility] [address] [place] [address] 12 Lead EKG performed by [facility] 05/05/24819 MR#: [id number] Acct: [id number] Name: AMANDA GRUBBS Rep #: [id number] : 1970 53 From: Franky Hollingsworth MD Attending Dr: Dr. Franky Hollingsworth MD Status: DE P AMB Ordering Dr: Franky Hollingsworth MD Date: 05/05/24 Location: [facility] Sex: F C Admitted: [facility]/12 Lead EKG performed by [facility] ECG Report Interpretation S inus Rhythm WITHIN NORMAL LIMITSElectronically signed on 05/05/2024 at 12:[address] Franky Hollingsworth [employer] Version 8610 05/05/24 1217 Date Franky Hollingsworth MD CC: Dr. Franky Pearson DO Date Dictated: 05/05/24819 Date Transcribed: 05/05/24819 Program Review Director: Signed Normal [facility] Cardiology Visit Reporton Cardiology Visit Report [facility] [address] [place] [address] OFFICE VISIT Date of Service: 05/05/24 MR#: [id number] Acct: [id number] Name: AMANDA GRUBBS Rep #: [id number] : 1970 Provider: Dr. Franky clark MD Age/Sex: 53/F Location: [facility] Status: Signed HPI HPI History of Present [...] air Intake Visit Reasons: FAMILY HX OF MD (LILI) Side Sawyer Required: No Accompanied by: Is patient in pain?: No Allergies No Known Allergies Allergy (Verified 05/05/24 11:34) Medications ???Medication ???Instructions ???Recorded ???Confirmed ???Type xnsincypve-vbgwylxmweadh-ai ffeine 1 cap PO Q8H PRN 01/16/23 [...] colonoscopy H (more content not included)... Normal [facility] Office Visit Reporton 2023 Office Visit Report [facility] [address] [address] OFFICE VISIT Date of Service: 04/17/24 MR#: [id number] Acct: [id number] Patient: AMANDA GRUBBS Rep #: [id number] : 1970 Provider: BLU Clinton Age/Sex: 53/F Location: [facility] Status: Signed Employer Purchased Covid Test Note: Patient here today for Covid Testing, requested by their Employer. Assessment and Plan Plan Details Goals Barriers: Goals Decrease pain Decrease spasm Decrease HAs 04/17/24 1623 Date Hans Lemaigner Signature: Date (if applicable) CC: Normal [facility] Office Visit Report [facility] [address] [address] OFFICE VISIT Date of Service: 04/17/24 MR#: [id number] Acct: [id number] Patient: AMANDA GRUBBS Rep #: [id number] : 1970 Provider: BLU Clinton Age/Sex: 53/F Location: [facility] Status: Signed Employer Purchased [...] spasm Decrease HAs 04/17/24 1454 Date Hans Lemaignshelley Signature: Date (if applicable) CC: Normal [facility] Urgent Care Visit Reporton 1 06-17-2023 Urgent Care Visit Report [facility] [address], [address] [place] [address] OFFICE VISIT Date of Service: 04/17/24 MR#: [id number] Acct: [id number] Name: AMANDA GRUBBS Rep #: [id number] : 1970 Provider: BLU Clinton Age/Sex: 53/F Location: [facility] Status: Signed Intake Vital [...] Complaint: fever, fatigue, PND, BA , [place] Side Sawyer Required: No Is patient in pain?: Yes [...] Exam Const General: cooperative and healthy appearing [facility] Head: normal to inspection Ears: hearing grossly [...] PCR Not DETECTED Last Edit by Jaja A Winston on 04/17/24 14:14 CEPHEID FLU AB PCR [...] Signature: Date (more content not included)... Normal [facility] Laboratory - Chemistry and C hemistry - challengeOrdered By: Franky Pearson on 09-12-2023 Cobalamin (Vitamin B12) [Mass/Vol] 364 pg/mL 211-911 [facility] Ferritin [Mass/Vol] 26 ng/mL 8-252 [facility] Serum or plasma thiamine kayla surement (mass/volume)Ordered By: Franky Pearson on 09-12-2023 Thiamine [Mass/Vol] 72.8 nmol/L 66.5-200.0 [facility] Comment on above: Performed at: [address] [id number] Director: James Herrera MD, Phone: [phone] Basophil percentageOrdered B y: Franky Pearson on 06-22-2023 Bilirubin [Mass/Vol] 0.40 mg/dL 0.20-1.00 [facility] Comment on above: For patients on eltr ombopag therapy, use of Dimension [place] TBIL is not recommended. Chloride [Moles/Vol] 108 mmol/L 98-107 [facility] Cholesterol [Mass/Vol] 176 mg/dL <200 [facility] Comment on above: <200 mg/dL Desirable 200-240 mg/dL Borderline >240 mg/dL High Risk Glucose [Mass/Vol] 82 mg/dL 74-106 [facility] Potassium [Moles/Vol] 4.5 mmol/L 3.5-5.1 [facility] Protein [Mass/Vol] 7.6 g/dL 6.4-8.2 [facility] Sodium [Moles/Vol] 141 mmol/L 136-145 [facility] Triglyceride [Mass/Vol] 58 mg/dL <199 [facility] Comment on above: The drugs N-Acetylcy steine and Metamizole may falsely depress this assay.Serum Triglycerides Reference Interval Normal <150 mg/dL Borderline high 150 - 199 mg/dL High 200 - 499 mg/dL Very High > or = 500 mg/dL WBC (Bld) [#/Vol] 5.4 10*3/uL 4.4-11.0 [facility] Blood erythrocytes count (nu mber/volume)Ordered By: Franky Pearson on 06-22-2023 RBC (Bld) [#/Vol] 4.25 10*6/uL 4.2-5.4 [facility] Blood hemoglobin measurement (mass/volume)Ordered By: Franky Pearson on 06-22-2023 Hemoglobin (Bld) [Mass/Vol] 12.7 g/dL 12.0-15.0 [facility] Blood platelet mean volumeOr dered By: Franky Pearson on 06-22-2023 Platelet mean volume (Bld) [Entitic vol] 9.3 fL 6.2-12.0 [facility] Determination of erythrocyte mean corpuscular volume (MCV)Ordered By: Franky Pearson on 06-22-2023 MCV (RBC) [Entitic vol] 95.1 fL 81-99 [facility] Folic acid serumOrdered By: Franky Pearson on 06-22-2023 Folate [Mass/Vol] 7.40 ng/mL 3.1-55.4 [facility] Hematocrit Auto (Bld) [Volum e fraction]Ordered By: Franky Pearson on 06-22-2023 Hematocrit (Bld) [Volume fraction] 40.4 % 37-47 [facility] Laboratory - Chemistry and C hemistry - challengeOrdered By: Franky Pearson on 06-22-2023 ALP [Catalytic activity/Vol] 84 U/L 45-117 [facility] ALT [Catalytic activity/Vol] 24 U/L 13-56 [facility] CO2 [Moles/Vol] 29.0 mmol/L 21.0-32.0 [facility] Cobalamin (Vitamin B12) [Mass/Vol] 219 pg/mL 211-911 [facility] Globulin (S) [Mass/Vol] 3.8 g/dL 2.2-4.2 [facility] Urea nitrogen/Creatinine [Mass ratio] 13.4 mg/mg 10-20 [facility] Laboratory - Hematology and Cell countsOrdered By: Franky Pearson on 06-22-2023 Erythrocyte distribution width (RBC) [Entitic vol] 44.1 fL 35.1-43.9 [facility] Erythrocyte distribution width (RBC) [Ratio] 12.7 % 11.6-14.6 [facility] MCH (RBC) [Entitic mass] 29.9 pg 27.0-32.0 [facility] MCHC Auto (RBC) [Mass/Vol]Or dered By: Franky Pearson on 06-22-2023 MCHC (RBC) [Mass/Vol] 31.4 g/dL 32-36 [facility] No Panel InformationOrdered By: Franky Pearson on 06-22-2023 Estimated GFR (MDRD) Amer 78 mL/min >60 [facility] Comment on above: GFR Calc Estimated GFR (MDRD) Non-Af Amer 64 mL/min >60 [facility] Comment on above: Non- GFR Calc Thyroid Stimulating Hormone (TSH) 1.00 uIU/mL 0.358-3.74 [facility] Vitamin D 25-Hydroxy 54.4 ng/mL [facility] Comment on above: Vitamin D 25(OH) Sta tus Range Deficiency <20 ng/mL (50nmol/L) Insufficiency 20 - 30 ng/mL (50 - 75 nmol/L) Sufficiency 30 - 100 ng/mL (75 - 250 nmol/L) Toxicity >100 ng/mL (>250 nmol/L) Platelets bldOrdered By: Carmen Pearson on 06-22-2023 Platelets (Bld) [#/Vol] 312 10*3/uL 150-450 [facility] Serum or plasma albumin sharifa urement (mass/volume)Ordered By: Franky Pearson on 06-22-2023 Albumin [Mass/Vol] 3.8 g/dL 3.2-5.0 [facility] Serum or plasma albumin/glob ulin mass ratioOrdered By: Franky Pearson on 06-22-2023 Albumin/Globulin [Mass ratio] 1.0 {ratio} 0.9-2.4 [facility] Serum or plasma calcium sharifa urement (mass/volume)Ordered By: Franky Pearson on 06-22-2023 Calcium [Mass/Vol] 9.5 mg/dL 8.5-10.1 [facility] Serum or plasma cholesterol in HDL measurement (mass/volume)Ordered By: Franky Pearson on 06-22-2023 Cholesterol in HDL [Mass/Vol] 76 mg/dL >40 [facility] Comment on above: The drugs N-Acetylcy steine and Metamizole may falsely depress this assay. Reference Range HDL <40 mg/dL Low HDL Cholesterol HDL >or= 60 mg/dL High HDL Cholesterol Serum or plasma cholesterol in VLDL measurement (mass/volume)Ordered By: Franky Pearson on 06-22-2023 Cholesterol in VLDL [Mass/Vol] 12 mg/dL 5-40 [facility] Serum or plasma creatinine m easurement (mass/volume)Ordered By: Franky Pearson on 06-22-2023 Creatinine [Mass/Vol] 0.97 mg/dL 0.55-1.02 [facility] Comment on above: The validity of the calculated GFR & GFRAA in patients over 70 years has not been determined. Clinical correlation is essential. Serum or plasma ferritin kayla surement (mass/volume)Ordered By: Franky Pearson on 06-22-2023 Ferritin [Mass/Vol] 18 ng/mL 8-252 [facility] Serum or plasma low density lipoprotein (LDL) cholesterol measurement (mass/volume)Ordered By: Franky Pearson on 06-22-2023 Cholesterol in LDL [Mass/Vol] 88 mg/dL 0-130 [facility] Serum or plasma thiamine kayla surement (mass/volume)Ordered By: Franky Pearson on 06-22-2023 Thiamine [Mass/Vol] 157.3 nmol/L 66.5-200.0 [facility] Serum or plasma urea nitroge n measurement (mass/volume)Ordered By: Franky Pearson on 06-22-2023 Urea nitrogen [Mass/Vol] 13 mg/dL 7-18 [facility] Serum or plasma zinc measure ment (mass/volume)Ordered By: Franky Pearson on 06-22-2023 Zinc [Mass/Vol] 84 ug/dL 44-115 [facility] Comment on above: Detection Limit = 5P erformed at: - [facility] [address] [id number] Director: James Herrera MD, Phone: [phone] Thin prep Papanicolaou smear with manual screeningOrdered By: Franky Pearson on 06-22-2023 Thin prep Papanicolaou smear with manual screening 17 U/L 15-37 [facility] Thin prep Papanicolaou smear with manual screening 4 5-15 [facility] Whole blood hemoglobin A1c/t otal hemoglobin ratio (mass fraction)Ordered By: Franky Pearson on 06-22-2023 HbA1c (Bld) [Mass fraction] 5.4 % 3.8-5.6 [facility] Comment on above: Normal < 5.7 % Predi abetic 5.7 - 6.4 % Diabetic >or= 6.5 % Please note range changes. Laboratory - Microbiology an d Antimicrobial susceptibilityon 05-13-2023 SARS-CoV-2 (COVID-19) RNA SANTINO+probe Ql (Unsp spec) Not detected [facility] No Panel Informationon 05-13 POC Nasal Swab Influenza A,B Not detected [facility] POC Nasal Swab RSV Not detected [facility] 36on 01-16-2023 36 Name of Caller: Ayesha i Contact Reason for Appointment: Pt needs to cancel upcoming appt and the pt sill call back to resx. Please advise Office Name: [facility] Medication Refills need, if any: NA Medication Name: NA [facility] 36on 11-06-2022 36 Please contact the p t regarding the dose of ozempic. 1 mg was prescibed on 08/18/2022. The request for 2 mg does not match the prescription. Please let me know. Thank you [facility] 36on 10-26-2022 36 Requested Prescripti ons Pending Prescriptions Disp Refills Semaglutide, 2 MG/DOSE, (Ozempic, 2 MG/DOSE,) 8 MG/3ML solution pen-injector 12 mL 0 Sig: Inject 2 mg under the skin 1 (one) time per week. Last seen on 08-18-22 by SCOTT Next appt on 12/15/22 with SCOTT [facility] [id number] 09-13-2022 Vitamin B1 (TDP), Whole Blood 92.0 nmol/L Normal 84.3-213.3 [facility] ([place]) Comment on above: Result Comment: Malindar yunier reference range. Test performed at [facility]. Reference interval: 70-180 nmol/L This assay measures the concentration of thiamine diphosphate (TDP), the primary active form of vitamin B1. Approximately 90 percent of vitamin B1 present in the whole blood is TDP. Thiamine and thiamine monophosphate, which compromise the remaining 10 present are not measured. This test was developed and its performance characteristics determine by [facility] [employer]. It has not been cleared or approved by the [place] Food and Drug administration. This test was performed in a CLIA certified laboratory and is intended for clinical purposes. Performed By: [facility] [address] [place] [address] Casting Assistant: Kenny Nunes III, M.D. CLIA#: [id number] Performed By: #### HUMBERTO WADE #### [address] [address] ZINCon 09-04-2022 Zinc (s) 65 UG/DL Normal 60-120 [facility] ([place]) Comment on above: Result Comment: This test was developed and its performance characteristics determined by [facility]'s [facility] [place] ([facility]). It has not been cleared or approved by the FDA. -[facility] is regulated under CLIA as qualified to perform high-complexity testing. This test is used for clinical purposes. It should not be regarded as investigational or for research. Performed By: [facility] [address] [place] [address] Casting Assistant: Kenny Nunes III, M.D. CLIA#: [id number] Performed By: #### A HUMBERTO CONTEH #### [address] [address] .Auto Diffon 09-02-2022 Basophil, Absolute 0.0 10 3/mcL Normal 0.0-0.2 [facility] ([place]) Comment on above: Performed By: #### H CV1 #### [address] [address] #### CBC, ADIFF, CK, ANEU, CMP, A1C, LIPID, VIDH, MG, TSH, GFR, B1WB, ZINC #### [address] [address] Basophils/100 WBC (Bld) 0.5 % Normal 0.0-2.5 [facility] ([place] Comment on above: Performed By: #### H CV1 #### [address] [address] #### CBC, ADIFF, CK, ANEU, CMP, A1C, LIPID, VIDH, MG, TSH, GFR, B1WB, ZINC #### [address] [address] Eosinophil, Absolute 0.2 10 3/mcL Normal 0.0-0.4 [facility] ([place]) Comment on above: Performed By: #### H CV1 #### [place] [address] #### CBC, ADIFF, CK, ANEU, CMP, A1C, LIPID, VIDH, MG, TSH, GFR, B1WB, ZINC #### [address] [address] Eosinophils/100 WBC (Bld) 2.1 % Normal 0.0-7.0 [facility] ([place] Comment on above: Performed By: #### H CV1 #### [place] [address] #### CBC, ADIFF, CK, ANEU, CMP, A1C, LIPID, VIDH, MG, TSH, GFR, B1WB, ZINC #### [address] [address] Lymphocyte, Absolute 2.3 10 3/mcL Normal 0.8-3.9 [facility] ([place] Comment on above: Performed By: #### H CV1 #### [place] [address] #### CBC, ADIFF, CK, ANEU, CMP, A1C, LIPID, VIDH, MG, TSH, GFR, B1WB, ZINC #### [address] [address] Lymphocytes/100 WBC (Bld) 30.9 % Normal 10.0-50.0 [facility] ([place] Comment on above: Performed By: #### H CV1 #### [place] [address] #### CBC, ADIFF, CK, ANEU, CMP, A1C, LIPID, VIDH, MG, TSH, GFR, B1WB, ZINC #### [address] [address] Monocyte, Absolute 0.7 10 3/mcL Normal 0.2-1.0 [facility] ([place]) Comment on above: Performed By: #### H CV1 #### [place] [address] #### CBC, ADIFF, CK, ANEU, CMP, A1C, LIPID, VIDH, MG, TSH, GFR, B1WB, ZINC #### [address] [address] Monocytes/100 WBC (Bld) 9.0 % Normal 1.7-13.0 [facility] ([place] Comment on above: Performed By: #### H CV1 #### [address] [address] #### CBC, ADIFF, CK, ANEU, CMP, A1C, LIPID, VIDH, MG, TSH, GFR, B1WB, ZINC #### [address] [address] Neutrophils/100 WBC (Bld) 57.5 % Normal 37.0-80.0 [facility] ([place] Comment on above: Performed By: #### H CV1 #### [address] [address] #### CBC, ADIFF, CK, ANEU, CMP, A1C, LIPID, VIDH, MG, TSH, GFR, B1WB, ZINC #### [address] [address] .GFRon 09-02-2022 GFR 97 ml/min/1.73sqm Normal [facility] ([place]) Comment on above: Result Comment: GFR Population [...] mL/min/1.73 square meters Performed By: #### A WERO TROPHS #### [address] [address] GFR Non- 80 ml/min/1.73sqm Normal [facility] ([place]) Comment on above: Result Comment: GFR Population [...] mL/min/1.73 square meters Performed By: #### A WERO TROPHS #### [address] [address] .NEUABSon 09-02-2022 Neutrophil, Absolute 4.3 10 3/mcL Normal 2.9-6.2 [facility] ([place]) Comment on above: Performed By: #### H CV1 #### [address] [address] #### CBC, ADIFF, CK, ANEU, CMP, A1C, LIPID, VIDH, MG, TSH, GFR, B1WB, ZINC #### [address] [address] A1Con 09-02-2022 HbA1c (Bld) [Mass fraction] 5.6 % Normal 4.3-6.4 [facility] ([place]) Comment on above: Performed By: #### H CV1 #### [address] [address] #### CBC, ADIFF, CK, ANEU, CMP, A1C, LIPID, VIDH, MG, TSH, GFR, B1WB, ZINC #### [address] [address] CBCon 09-02-2022 Erythrocyte distribution width (RBC) [Ratio] 13.6 % Normal 11.5-14.5 [facility] ([place]) Comment on above: Performed By: #### H CV1 #### [address] [address] #### CBC, ADIFF, CK, ANEU, CMP, A1C, LIPID, VIDH, MG, TSH, GFR, B1WB, ZINC #### [address] [address] Hematocrit (Bld) [Volume fraction] 35.7 % Low 37.0-47.0 [facility] ([place] Comment on above: Performed By: #### H CV1 #### [place] [address] #### CBC, ADIFF, CK, ANEU, CMP, A1C, LIPID, VIDH, MG, TSH, GFR, B1WB, ZINC #### [address] [address] Hgb 12.2 G/dL Normal 12.0-16.0 [facility] ([place] Comment on above: Performed By: #### H CV1 #### [place] [address] #### CBC, ADIFF, CK, ANEU, CMP, A1C, LIPID, VIDH, MG, TSH, GFR, B1WB, ZINC #### [address] [address] MCH (RBC) [Entitic mass] 30.9 pg Normal 27.0-31.2 [facility] ([place] Comment on above: Performed By: #### H CV1 #### [place] [address] #### CBC, ADIFF, CK, ANEU, CMP, A1C, LIPID, VIDH, MG, TSH, GFR, B1WB, ZINC #### [address] [address] MCHC 34.1 G/dL Normal 33.0-37.0 [facility] ([place] Comment on above: Performed By: #### H CV1 #### [place] [address] #### CBC, ADIFF, CK, ANEU, CMP, A1C, LIPID, VIDH, MG, TSH, GFR, B1WB, ZINC #### [address] [address] MCV (RBC) [Entitic vol] 90.7 fL Normal 80.0-94.0 [facility] ([place] Comment on above: Performed By: #### H CV1 #### [place] [address] #### CBC, ADIFF, CK, ANEU, CMP, A1C, LIPID, VIDH, MG, TSH, GFR, B1WB, ZINC #### [address] [address] Platelet 419 10 3/mcL High 130-400 [facility] ([place]) Comment on above: Performed By: #### H CV1 #### [place] [address] #### CBC, ADIFF, CK, ANEU, CMP, A1C, LIPID, VIDH, MG, TSH, GFR, B1WB, ZINC #### [address] [address] Platelet mean volume (Bld) [Entitic vol] 6.6 fL Low 7.4-10.4 [facility] ([place] Comment on above: Performed By: #### H CV1 #### [place] [address] #### CBC, ADIFF, CK, ANEU, CMP, A1C, LIPID, VIDH, MG, TSH, GFR, B1WB, ZINC #### [address] [address] RBC 3.94 10 6/mcL Low 4.20-5.40 [facility] ([place] Comment on above: Performed By: #### H CV1 #### [place] [address] #### CBC, ADIFF, CK, ANEU, CMP, A1C, LIPID, VIDH, MG, TSH, GFR, B1WB, ZINC #### [address] [address] WBC 7.5 10 3/mcL Normal 4.6-10.8 [facility] ([place]) Comment on above: Performed By: #### H CV1 #### [place] [address] #### CBC, ADIFF, CK, ANEU, CMP, A1C, LIPID, VIDH, MG, TSH, GFR, B1WB, ZINC #### [address] [address] CKon 09-02-2022 CK [Catalytic activity/Vol] 32 U/L Normal 26-192 [facility] ([place]) Comment on above: Performed By: #### H CV1 #### [address] [address] #### CBC, ADIFF, CK, ANEU, CMP, A1C, LIPID, VIDH, MG, TSH, GFR, B1WB, ZINC #### [address] [address] CMPon 09-02-2022 Albumin Level 3.7 G/dL Normal 3.5-5.0 [facility] ([place]) Comment on above: Performed By: #### A KRISTAL CONTEHS #### [address] [address] Albumin/Globulin [Mass ratio] 1.1 {ratio} Normal 1.1-2.5 [facility] ([place]) Comment on above: Performed By: #### A KRISTAL CONTEHS #### [address] [address] ALP [Catalytic activity/Vol] 83 U/L Normal 40-135 [facility] ([place] Comment on above: Performed By: #### A KRISTAL CONTEHS #### [address] [address] ALT [Catalytic activity/Vol] 27 U/L Normal 14-59 [facility] ([place] Comment on above: Performed By: #### A WERO TROPHS #### [address] [address] AST [Catalytic activity/Vol] 15 U/L Normal 10-40 [facility] ([place] Comment on above: Performed By: #### A MY, TROPHS #### [address] [address] Bili Total 0.2 mg/dL Normal 0.2-1.0 [facility] ([place]) Comment on above: Result Comment: Use of this assay is not recommended for patients undergoing treatment with eltrombopag due to the potential for falsely elevated results. Performed By: #### A WERO TROPHS #### [place] [id number] BUN/Creatinine Ratio 16 ratio Normal 7-27 [facility] ([place]) Comment on above: Performed By: #### A WERO TROPHS #### [address] [address] Calcium [Mass/Vol] 9.0 mg/dL Normal 8.4-10.2 [facility] ([place]) Comment on above: Performed By: #### A WERO TROPHS #### [address] [address] Chloride [Moles/Vol] 104 mmol/L Normal 98-107 [facility] ([place]) Comment on above: Performed By: #### A WERO TROPHS #### [address] [address] CO2 [Moles/Vol] 29 mmol/L Normal 22-29 [facility] ([place] Comment on above: Performed By: #### A WERO TROPHS #### [address] [address] Creatinine [Mass/Vol] 0.76 mg/dL Normal 0.55-1.02 [facility] ([place]) Comment on above: Performed By: #### A WERO TROPHS #### [address] [address] Electrolyte Balance 9.0 mEq/L Normal 4.0-15.0 Count includes the [facility] ([place]) Comment on above: Performed By: #### A WERO TROPHS #### [place] [id number] Globulin 3.3 G/dL Normal [facility] ([place]) Comment on above: Performed By: #### A WERO TROPHS #### [address] [address] Glucose [Mass/Vol] 76 mg/dL Normal 70-105 [facility] ([place]) Comment on above: Performed By: #### A KRISTAL CONTEHS #### [address] [address] Potassium [Moles/Vol] 4.3 mmol/L Normal 3.5-5.1 [facility] ([place] Comment on above: Performed By: #### A WERO TROPHS #### [address] [address] Sodium [Moles/Vol] 142 mmol/L Normal 136-145 [facility]) Comment on above: Performed By: #### A WERO TROPHS #### [address] [address] Total Protein 7.0 G/dL Normal 6.4-8.2 [facility] ([place] Comment on above: Performed By: #### A WERO TROPHS #### [address] [address] Urea nitrogen [Mass/Vol] 12 mg/dL Normal 7-18 [facility] ([place] Comment on above: Performed By: #### A KRISTAL CONTEHS #### [address] [address] HCVon 09-02-2022 Hep C Ab Non-Reactive Normal Non-Reacti ve [facility] ([place]) Comment on above: Performed By: #### A WERO TROPHS #### [address] [address] Hep C Ab Int Normal [facility] ([place]) Comment on above: Result Comment: Nonr eactive: Samples with a value < 0.80 are considered nonreactive (negative) for antibodies to HCV. A negative test result does not exclude the possibility of exposure to or infection with HCV. HCV antibodies may be undetectable in some stages of the infection and in some clinical conditions. See Interp Performed By: #### A HUMBERTO CONTEH #### [place] [address] LABORATORYOrdered By: SYSTEM SYSTEM on 09-02-2022 Albumin [...] 09-02-2022 Cholesterol [Mass/Vol] 185 mg/dL Normal 0-200 Au [facility] ([place]) Comment on above: Result Comment: Chol esterol Reference Interval: Less than 200 Desirable 200-239 Borderline high risk 240 and above High risk Performed By: #### A MY, TROPHS #### [address] [address] Cholesterol in HDL [Mass/Vol] 67 mg/dL High 40-60 [facility] ([place]) Comment on above: Performed By: #### A WERO TROPHS #### [address] [address] Cholesterol in LDL [Mass/Vol] 96 mg/dL Normal 0-130 [facility] ([place]) Comment on above: Performed By: #### A KRISTAL CONTEHS #### [address] [address] Triglyceride [Mass/Vol] 109 mg/dL Normal 0-150 [facility] ([place]) Comment on above: Result Comment: Trig lyceride Reference Interval: Less than 150 Normal 150-199 Borderline high risk 200-499 High risk 500 or higher Very high risk Performed By: #### A KRISTAL CONTEHS #### [address] [address] MGon 09-02-2022 Magnesium [Mass/Vol] 2.1 mg/dL Normal 1.8-2.4 [facility] ([place]) Comment on above: Performed By: #### H CV1 #### [place] [address] #### CBC, ADIFF, CK, ANEU, CMP, A1C, LIPID, VIDH, MG, TSH, GFR, B1WB, ZINC #### [address] [address] TSHon 09-02-2022 TSH Qn 1.47 m[IU]/L Normal 0.36-3.74 [facility] ([place]) Comment on above: Performed By: #### H CV1 #### [place] [address] #### CBC, ADIFF, CK, ANEU, CMP, A1C, LIPID, VIDH, MG, TSH, GFR, B1WB, ZINC #### [address] [address] VIDHon 09-02-2022 Vit. D 25-Hydroxy 46.3 ng/mL Normal [facility] ([place]) Comment on above: Result Comment: Inte rpretive Values Based on Total 25(OH) Vitamin D: Deficient <20 ng/mL Insufficient 20 - <30 ng/mL Sufficient 30-100 ng/mL Performed By: #### H CV1 #### [place] [address] #### CBC, ADIFF, CK, ANEU, CMP, A1C, LIPID, VIDH, MG, TSH, GFR, B1WB, ZINC #### [address] [address] .Auto Diffon 08-26-2022 Basophil, Absolute 0.0 10 3/mcL Normal 0.0-0.2 [facility] ([place]) Comment on above: Performed By: #### H CV1 #### [place] [address] #### CBC, ADIFF, CK, ANEU, CMP, A1C, LIPID, VIDH, MG, TSH, GFR, B1WB, ZINC #### [address] [address] Basophils/100 WBC (Bld) 0.2 % Normal 0.0-2.5 [facility] ([place]) Comment on above: Performed By: #### H CV1 #### [place] [address] #### CBC, ADIFF, CK, ANEU, CMP, A1C, LIPID, VIDH, MG, TSH, GFR, B1WB, ZINC #### [address] [address] Eosinophil, Absolute 0.1 10 3/mcL Normal 0.0-0.4 [facility] ([place]) Comment on above: Performed By: #### H CV1 #### [place] [address] #### CBC, ADIFF, CK, ANEU, CMP, A1C, LIPID, VIDH, MG, TSH, GFR, B1WB, ZINC #### [address] [address] Eosinophils/100 WBC (Bld) 0.9 % Normal 0.0-7.0 [facility] ([place]) Comment on above: Performed By: #### H CV1 #### [place] [address] #### CBC, ADIFF, CK, ANEU, CMP, A1C, LIPID, VIDH, MG, TSH, GFR, B1WB, ZINC #### [address] [address] Lymphocyte, Absolute 0.7 10 3/mcL Low 0.8-3.9 [facility] ([place]) Comment on above: Performed By: #### H CV1 #### [place] [address] #### CBC, ADIFF, CK, ANEU, CMP, A1C, LIPID, VIDH, MG, TSH, GFR, B1WB, ZINC #### [address] [address] Lymphocytes/100 WBC (Bld) 8.5 % Low 10.0-50.0 [facility] ([place]) Comment on above: Performed By: #### H CV1 #### [place] [address] #### CBC, ADIFF, CK, ANEU, CMP, A1C, LIPID, VIDH, MG, TSH, GFR, B1WB, ZINC #### [address] [address] Monocyte, Absolute 0.5 10 3/mcL Normal 0.2-1.0 [facility] ([place]) Comment on above: Performed By: #### H CV1 #### [place] [address] #### CBC, ADIFF, CK, ANEU, CMP, A1C, LIPID, VIDH, MG, TSH, GFR, B1WB, ZINC #### [address] [address] Monocytes/100 WBC (Bld) 6.4 % Normal 1.7-13.0 [facility] ([place]) Comment on above: Performed By: #### H CV1 #### [place] [address] #### CBC, ADIFF, CK, ANEU, CMP, A1C, LIPID, VIDH, MG, TSH, GFR, B1WB, ZINC #### [address] [address] Neutrophils/100 WBC (Bld) 84.0 % High 37.0-80.0 [facility] ([place]) Comment on above: Performed By: #### H CV1 #### [address] [address] #### CBC, ADIFF, CK, ANEU, CMP, A1C, LIPID, VIDH, MG, TSH, GFR, B1WB, ZINC #### [address] [address] .GFRon 08-26-2022 GFR 82 ml/min/1.73sqm Normal [facility] ([place]) Comment on above: Result Comment: GFR Population [...] meters Performed By: #### H CV1 #### [address] [address] #### CBC, ADIFF, CK, ANEU, CMP, A1C, LIPID, VIDH, MG, TSH, GFR, B1WB, ZINC #### [address] [address] GFR Non- 68 ml/min/1.73sqm Normal [facility] ([place]) Comment on above: Result Comment: GFR Population [...] meters Performed By: #### H CV1 #### [address] [address] #### CBC, ADIFF, CK, ANEU, CMP, A1C, LIPID, VIDH, MG, TSH, GFR, B1WB, ZINC #### [address] [address] .MDWon 08-26-2022 Monocyte Distribution Width 20.32 High 0.00-20.00 [facility] ([place]) Comment on above: Result Comment: For adults in ED, MDW>20.0 may be associated with a higher risk of sepsis during the first 12hrs of hospital admission Performed By: #### H CV1 #### [place] [address] #### CBC, ADIFF, CK, ANEU, CMP, A1C, LIPID, VIDH, MG, TSH, GFR, B1WB, ZINC #### [address] [address] .NEUABSon 08-26-2022 Neutrophil, Absolute 6.7 10 3/mcL High 2.9-6.2 [facility] ([place]) Comment on above: Performed By: #### H CV1 #### [address] [address] #### CBC, ADIFF, CK, ANEU, CMP, A1C, LIPID, VIDH, MG, TSH, GFR, B1WB, ZINC #### [address] [address] AMYon 08-26-2022 Amylase [Catalytic activity/Vol] 54 U/L Normal 25-115 [facility] ([place]) Comment on above: Performed By: #### A MY TROPHS #### [address] [address] [facility] 08-26-2022 Erythrocyte distribution width (RBC) [Ratio] 13.7 % Normal 11.5-14.5 [facility] ([place]) Comment on above: Performed By: #### H CV1 #### [place] [address] #### CBC, ADIFF, CK, ANEU, CMP, A1C, LIPID, VIDH, MG, TSH, GFR, B1WB, ZINC #### [address] [address] Hematocrit (Bld) [Volume fraction] 37.5 % Normal 37.0-47.0 [facility] ([place]) Comment on above: Performed By: #### H CV1 #### [place] [address] #### CBC, ADIFF, CK, ANEU, CMP, A1C, LIPID, VIDH, MG, TSH, GFR, B1WB, ZINC #### [address] [address] Hgb 12.6 G/dL Normal 12.0-16.0 [facility] ([place]) Comment on above: Performed By: #### H CV1 #### [place] [address] #### CBC, ADIFF, CK, ANEU, CMP, A1C, LIPID, VIDH, MG, TSH, GFR, B1WB, ZINC #### [address] [address] MCH (RBC) [Entitic mass] 30.7 pg Normal 27.0-31.2 [facility] ([place]) Comment on above: Performed By: #### H CV1 #### [place] [address] #### CBC, ADIFF, CK, ANEU, CMP, A1C, LIPID, VIDH, MG, TSH, GFR, B1WB, ZINC #### [address] [address] MCHC 33.7 G/dL Normal 33.0-37.0 [facility] ([place]) Comment on above: Performed By: #### H CV1 #### [place] [address] #### CBC, ADIFF, CK, ANEU, CMP, A1C, LIPID, VIDH, MG, TSH, GFR, B1WB, ZINC #### [address] [address] MCV (RBC) [Entitic vol] 91.1 fL Normal 80.0-94.0 [facility] ([place]) Comment on above: Performed By: #### H CV1 #### [place] [address] #### CBC, ADIFF, CK, ANEU, CMP, A1C, LIPID, VIDH, MG, TSH, GFR, B1WB, ZINC #### [address] [address] Platelet 304 10 3/mcL Normal 130-400 [facility] ([place]) Comment on above: Performed By: #### H CV1 #### [place] [address] #### CBC, ADIFF, CK, ANEU, CMP, A1C, LIPID, VIDH, MG, TSH, GFR, B1WB, ZINC #### [address] [address] Platelet mean volume (Bld) [Entitic vol] 7.0 fL Low 7.4-10.4 [facility] ([place]) Comment on above: Performed By: #### H CV1 #### [place] [address] #### CBC, ADIFF, CK, ANEU, CMP, A1C, LIPID, VIDH, MG, TSH, GFR, B1WB, ZINC #### [address] [address] RBC 4.11 10 6/mcL Low 4.20-5.40 [facility] ([place]) Comment on above: Performed By: #### H CV1 #### [address] [address] #### CBC, ADIFF, CK, ANEU, CMP, A1C, LIPID, VIDH, MG, TSH, GFR, B1WB, ZINC #### [address] [address] WBC 8.0 10 3/mcL Normal 4.6-10.8 [facility] ([place]) Comment on above: Performed By: #### H CV1 #### [place] [address] #### CBC, ADIFF, CK, ANEU, CMP, A1C, LIPID, VIDH, MG, TSH, GFR, B1WB, ZINC #### [address] [address] [facility] Albumin Level 3.9 G/dL Normal 3.5-5.0 [facility] ([place]) Comment on above: Performed By: #### H CV1 #### [place] [address] #### CBC, ADIFF, CK, ANEU, CMP, A1C, LIPID, VIDH, MG, TSH, GFR, B1WB, ZINC #### [address] [address] Albumin/Globulin [Mass ratio] 1.2 {ratio} Normal 1.1-2.5 [facility] ([place]) Comment on above: Performed By: #### H CV1 #### [place] [address] #### CBC, ADIFF, CK, ANEU, CMP, A1C, LIPID, VIDH, MG, TSH, GFR, B1WB, ZINC #### [address] [address] ALP [Catalytic activity/Vol] 97 U/L Normal 40-135 [facility] ([place]) Comment on above: Performed By: #### H CV1 #### [place] [address] #### CBC, ADIFF, CK, ANEU, CMP, A1C, LIPID, VIDH, MG, TSH, GFR, B1WB, ZINC #### [address] [address] ALT [Catalytic activity/Vol] 27 U/L Normal 14-59 [facility] ([place]) Comment on above: Performed By: #### H CV1 #### [address] [address] #### CBC, ADIFF, CK, ANEU, CMP, A1C, LIPID, VIDH, MG, TSH, GFR, B1WB, ZINC #### [address] [address] AST [Catalytic activity/Vol] 34 U/L Normal 10-40 [facility] ([place]) Comment on above: Performed By: #### H CV1 #### [address] [address] #### CBC, ADIFF, CK, ANEU, CMP, A1C, LIPID, VIDH, MG, TSH, GFR, B1WB, ZINC #### [address] [address] Bili Total 0.3 mg/dL Normal 0.2-1.0 [facility] ([place]) Comment on above: Result Comment: Use of this assay is not recommended for patients undergoing treatment with eltrombopag due to the potential for falsely elevated results. Performed By: #### H CV1 #### [address] [address] #### CBC, ADIFF, CK, ANEU, CMP, A1C, LIPID, VIDH, MG, TSH, GFR, B1WB, ZINC #### [address] [address] BUN/Creatinine Ratio 10 ratio Normal 7-27 [facility] ([place]) Comment on above: Performed By: #### H CV1 #### [address] [address] #### CBC, ADIFF, CK, ANEU, CMP, A1C, LIPID, VIDH, MG, TSH, GFR, B1WB, ZINC #### [address] [address] Calcium [Mass/Vol] 8.7 mg/dL Normal 8.4-10.2 [facility] ([place]) Comment on above: Performed By: #### H CV1 #### [place] [address] #### CBC, ADIFF, CK, ANEU, CMP, A1C, LIPID, VIDH, MG, TSH, GFR, B1WB, ZINC #### [address] [address] Chloride [Moles/Vol] 102 mmol/L Normal 98-107 [facility] ([place]) Comment on above: Performed By: #### H CV1 #### [place] [address] #### CBC, ADIFF, CK, ANEU, CMP, A1C, LIPID, VIDH, MG, TSH, GFR, B1WB, ZINC #### [address] [address] CO2 [Moles/Vol] 27 mmol/L Normal 22-29 [facility] ([place]) Comment on above: Performed By: #### H CV1 #### [place] [address] #### CBC, ADIFF, CK, ANEU, CMP, A1C, LIPID, VIDH, MG, TSH, GFR, B1WB, ZINC #### [address] [address] Creatinine [Mass/Vol] 0.88 mg/dL Normal 0.55-1.02 [facility] ([place]) Comment on above: Performed By: #### H CV1 #### [place] [address] #### CBC, ADIFF, CK, ANEU, CMP, A1C, LIPID, VIDH, MG, TSH, GFR, B1WB, ZINC #### [address] [address] Electrolyte Balance 8.0 mEq/L Normal 4.0-15.0 Count includes the [facility] ([place]) Comment on above: Performed By: #### H CV1 #### [place] [address] #### CBC, ADIFF, CK, ANEU, CMP, A1C, LIPID, VIDH, MG, TSH, GFR, B1WB, ZINC #### [address] [address] Globulin 3.2 G/dL Normal [facility] ([place]) Comment on above: Performed By: #### H CV1 #### [place] [address] #### CBC, ADIFF, CK, ANEU, CMP, A1C, LIPID, VIDH, MG, TSH, GFR, B1WB, ZINC #### [address] [address] Glucose [Mass/Vol] 98 mg/dL Normal 70-105 [facility] ([place]) Comment on above: Performed By: #### H CV1 #### [place] [address] #### CBC, ADIFF, CK, ANEU, CMP, A1C, LIPID, VIDH, MG, TSH, GFR, B1WB, ZINC #### [address] [address] Potassium [Moles/Vol] 4.3 mmol/L Normal 3.5-5.1 [facility] ([place]) Comment on above: Performed By: #### H CV1 #### [place] [address] #### CBC, ADIFF, CK, ANEU, CMP, A1C, LIPID, VIDH, MG, TSH, GFR, B1WB, ZINC #### [address] [address] Sodium [Moles/Vol] 137 mmol/L Normal 136-145 [facility] ([place]) Comment on above: Performed By: #### H CV1 #### [place] [address] #### CBC, ADIFF, CK, ANEU, CMP, A1C, LIPID, VIDH, MG, TSH, GFR, B1WB, ZINC #### [address] [address] Total Protein 7.1 G/dL Normal 6.4-8.2 [facility] ([place]) Comment on above: Performed By: #### H CV1 #### [address] [address] #### CBC, ADIFF, CK, ANEU, CMP, A1C, LIPID, VIDH, MG, TSH, GFR, B1WB, ZINC #### [address] [address] Urea nitrogen [Mass/Vol] 9 mg/dL Normal 12-26 [facility] ([place]) Comment on above: Performed By: #### H CV1 #### [address] [address] #### CBC, ADIFF, CK, ANEU, CMP, A1C, LIPID, VIDH, MG, TSH, GFR, B1WB, ZINC #### [address] [address] CRPon 08-26-2022 C-Reactive Protein 4.1 mg/dL High 0.0-0.9 [facility] ([place]) Comment on above: Performed By: #### H CV1 #### [address] [address] #### CBC, ADIFF, CK, ANEU, CMP, A1C, LIPID, VIDH, MG, TSH, GFR, B1WB, ZINC #### [address] [address] [address] ABD/PELVIS W/ IV CONTRAST ONLYon 08-26-2022 [...] 6:34:22 PM Ordering Provider: LINDA MARTINEZ Normal [facility]) DIMERon 08-26-2022 D-Dimer <200 Normal 0-230 [facility]) Comment on above: Result Comment: [...] (PE). Performed By: #### H CV1 #### [place] [address] #### CBC, ADIFF, CK, ANEU, CMP, A1C, LIPID, VIDH, MG, TSH, GFR, B1WB, ZINC #### [place] [address] [place], [place] [address] LABORATORYOrdered By: SYSTEM SYSTEM on 08-26-2022 Amylase [...] LIPon 08-26-2022 Lipase Level 177 U/L High [facility] ([place]) Comment on above: Performed By: #### H CV1 #### [place] [address] #### CBC, ADIFF, CK, ANEU, CMP, A1C, LIPID, VIDH, MG, TSH, GFR, B1WB, ZINC #### [address] [address] MGon 08-26-2022 Magnesium [Mass/Vol] 2.0 mg/dL Normal 1.8-2.4 [facility] ([place]) Comment on above: Performed By: #### H CV1 #### [address] [address] #### CBC, ADIFF, CK, ANEU, CMP, A1C, LIPID, VIDH, MG, TSH, GFR, B1WB, ZINC #### [address] [address] PBNPon 08-26-2022 Natriuretic peptide B (Bld) [Mass/Vol] 27 pg/mL Normal 0-125 [facility] ([place]) Comment on above: Result Comment: NT-p roBNP results of less than 300 pg/mL effectively rules out acute congestive heart failure with 99% negative predictive value. Performed By: #### H CV1 #### [place] [address] #### CBC, ADIFF, CK, ANEU, CMP, A1C, LIPID, VIDH, MG, TSH, GFR, B1WB, ZINC #### [address] [address] TROPHSon 08-26-2022 Troponin I High Sensitivity 4.3 ng/L Normal 0.0-51.4 [facility] ([place]) Comment on above: Performed By: #### HUMBERTO WADE #### [address] [address] Troponin I High Sensitivity <4.0 Normal 0.0-51.4 [facility] ([place]) Comment on above: Performed By: #### H CV1 #### [place] [address] #### CBC, ADIFF, CK, ANEU, CMP, A1C, LIPID, VIDH, MG, TSH, GFR, B1WB, ZINC #### [address] [address] XR CHEST 1 VIEWon 08-26-2022 XR CHEST [...] 08/26/2022 5:14:04 PM Ordering Provider: LINDA Silverio [facility] ([place]) US BREAST RIGHT LIMITEDon US BREAST RIGHT LIMITED ORIGINAL FROM: [address] [address] PROCEDURE FOR: AMANDA GRUBBS [address] [place] [address] Home: PID#: [id number] Exam#: [id number] : 1970 Age: 52 TO: FRANKY BUNCH [facility]LA[facility] [address] Fax: NO FAX EXAMINATION: ULTRASOUND OF THE [...] Provider: FRANKY PEARSON CLINICAL: 6 MONTHS FOLLOW-UP. Coremaking Supervisor: FELIBERTO CINTRON RT(R) RDMS letter sent: Probably Benign BI-RADS 3 Ultrasound BI-RADS: 3 Probably benign Normal [facility] ([place]) Office Visiton 08-18-2022 Follow-up visit [id number] Amanda Grubbs 1970 F Date Provider Department Center 08/18/2022 SHAYNA MOELLER [facility] None Family History Problem [...] Grandfather Paternal Grandmother Sister Alive Level of Service:52905 [place] OFFICE/OUTPATIENT ESTABLISHED LOW MDM 20-29 MIN Reason for Visit and Comments: Bariatrics Post Op Follow-up [884] - DE POP 04/08/18 [facility] Progress Noteon 08-18-2022 Progress Note BARIATRIC CARE IDALIA Nathan ROOMING NOTE POST WEIGHT LOSS SURGERY FOLLOW UP Patient: Amanda Gardenia Grubbs Service Date: 08/18/2022 Patient is 5 [...] Exercising: yes If yes: Type: 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 N/A If yes see Labs Tab Labs completed at Non-[facility] facility? N/A If yes see Encounters Tab - Orders only - Historical Provider - Date: Completed by: Mary Mishra MA [facility] GLUon 08-15-2022 Glucose [Mass/Vol] 78 mg/dL Normal 70-110 [facility] ([place]) Comment on above: Performed By: #### H CV1 #### [facility] [address] [place] [address] #### CBC, ADIFF, CK, ANEU, CMP, A1C, LIPID, VIDH, MG, TSH, GFR, B1WB, ZINC #### [address] [address] LIPIDon 08-15-2022 Cholesterol [Mass/Vol] 166 mg/dL Normal 50-199 [facility] ([place]) Comment on above: Result Comment: Chol esterol Reference Interval: Less than 200 Desirable 200-239 Borderline high risk 240 and above High risk Performed By: #### H CV1 #### [place] [address] #### CBC, ADIFF, CK, ANEU, CMP, A1C, LIPID, VIDH, MG, TSH, GFR, B1WB, ZINC #### [address] [address] Cholesterol in HDL [Mass/Vol] 51 mg/dL Normal 40-59 [facility] ([place]) Comment on above: Performed By: #### H CV1 #### [place] [address] #### CBC, ADIFF, CK, ANEU, CMP, A1C, LIPID, VIDH, MG, TSH, GFR, B1WB, ZINC #### [address] [address] Cholesterol in LDL [Mass/Vol] 84 mg/dL Normal 0-129 [facility] ([place]) Comment on above: Performed By: #### H CV1 #### [place] [address] #### CBC, ADIFF, CK, ANEU, CMP, A1C, LIPID, VIDH, MG, TSH, GFR, B1WB, ZINC #### [address] [address] Triglyceride [Mass/Vol] 156 mg/dL High 3-149 [facility] ([place]) Comment on above: Performed By: #### H CV1 #### [place] [address] #### CBC, ADIFF, CK, ANEU, CMP, A1C, LIPID, VIDH, MG, TSH, GFR, B1WB, ZINC #### [address] [address] Office Visiton 07-07-2022 Follow-up visit [id number] Amanda Grubbs 1970 F Date Provider Department Center 07/07/2022 SHAYNA MOELLER [facility] None Family History Problem [...] Grandfather Paternal Grandmother Sister Alive Level of Service:04313 NM OFFICE/OUTPATIENT ESTABLISHED LOW MDM 20-29 MIN Reason for Visit and Comments: Bariatrics Post Op Follow-up [884] - POP D/E FU [facility] Progress Noteon 07-07-2022 Progress Note [...] or JAD If YES: Labs completed at [facility]? N/A If yes see Labs Tab [facility] If yes see Encounters Tab - Orders only - Historical Provider - Date: Completed by: Manuel Preciado MA [facility] CT THORAX W/O CONTRASTon CT [...] 2022 12:43:51 PM Ordering Provider: FRANKY PEARSON [facility] ([place]) Office Vis[place] 06-07-2022 Follow-up visit [id number] Amanda Grubbs 1970 F Date Provider Department Center 06/07/2022 [id number] ANDRADE [facility] None Family History Problem [...] Grandfather Paternal Grandmother Sister Alive Level of Service:57070 NM OFFICE/OUTPATIENT ESTABLISHED LOW MDM 20-29 MIN Reason for Visit and Comments: Bariatrics Post Op Follow-up [884] - POP D/E FU [facility] Progress Noteon 06-07-2022 Progress Note BARIATRIC CARE IDALIA Nathan ROOMING NOTE POST WEIGHT LOSS SURGERY FOLLOW UP Patient: Amanda Grubbs Service Date: 06/07/2022 Patient is 5 year(s) s/p RnY Gastric Bypass Post-op Weight Metrics: Post-Surgical Weight Loss Date: 06/07/22 Height: 5' 3.25 (160.7 cm) ([facility]) Weight: 188 lb (85.3 kg) BMI: 33.04 [...] or JAD If YES: Labs completed at [facility]? N/A If yes see Labs Tab Labs completed at Non-[facility] facility? N/A If yes see Encounters Tab - Orders only - Historical Provider - Date: Completed by: Manuel Preciado MA [facility] Office Visiton 05-10-2022 Follow-up visit [id number] Ash Grubbsalma Varner 1970 F Date Provider Department Center 05/10/2022 [id number] SEBASTIAN [facility] None Family History Problem [...] Grandfather Paternal Grandmother Sister Alive Level of Service:40325 NM OFFICE/OUTPATIENT ESTABLISHED MOD MDM 30-39 MIN Reason for Visit and Comments: Weight Management [645] - POP D/E [facility] Progress Noteon 05-10-2022 Progress Note BARIATRIC CARE IDALIA CASANOVAING NOTE POST WEIGHT LOSS SURGERY FOLLOW UP [...] or JAD If YES: Labs completed at [facility]? no If yes see Labs Tab [facility]? yes If yes see Encounters Tab - Orders only - Historical Provider - Date: 04/26/22 Completed by: Tatum Del Valle MA [facility] B1WBon 05-01-2022 Vitamin B1 (TDP), Whole Blood 94.7 nmol/L Normal 84.3-213.3 [facility] ([place]) Comment on above: Result Comment: This assay measures the concentration of thiamine diphosphate (TDP), the primary active form of vitamin B1. Approximately 90 percent of vitamin B1 present in whole blood is TDP. Thiamine and thiamine monophosphate, which comprise the remaining 10 percent, are not measured. This test was developed and its performance characteristics determined by [facility] [place] ([facility]). It has not been cleared or approved by the FDA. [facility] is regulated under CLIA as qualified to perform high-complexity testing. This test is used for clinical purposes. It should not be regarded as investigational or for research. Performed By: [address] [address] Casting Assistant: Kenny Nunes III, M.D. CLIA#: [id number] Performed By: #### H CV1 #### [address] [address] #### CBC, ADIFF, CK, ANEU, CMP, A1C, LIPID, VIDH, MG, TSH, GFR, B1WB, ZINC #### [address] [address] ZINCon 04-27-2022 Zinc (s) 52 UG/DL Low 60-120 [facility] ([place]) Comment on above: Result Comment: This test was developed and its performance characteristics determined by [facility] [place] ([facility]). It has not been cleared or approved by the FDA. [facility] is regulated under CLIA as qualified to perform high-complexity testing. This test is used for clinical purposes. It should not be regarded as investigational or for research. Performed By: [address] [address] Casting Assistant: Kenny Nunes III, M.D. CLIA#: [id number] Performed By: #### H CV1 #### [address] [address] #### CBC, ADIFF, CK, ANEU, CMP, A1C, LIPID, VIDH, MG, TSH, GFR, B1WB, ZINC #### [address] [address] .Auto Diffon 04-26-2022 Basophil, Absolute 0.0 10 3/mcL Normal 0.0-0.2 [facility] ([place]) Comment on above: Performed By: #### H CV1 #### [place] [address] #### CBC, ADIFF, CK, ANEU, CMP, A1C, LIPID, VIDH, MG, TSH, GFR, B1WB, ZINC #### [address] [address] Basophils/100 WBC (Bld) 0.7 % Normal 0.0-2.5 [facility] ([place]) Comment on above: Performed By: #### H CV1 #### [place] [address] #### CBC, ADIFF, CK, ANEU, CMP, A1C, LIPID, VIDH, MG, TSH, GFR, B1WB, ZINC #### [address] [address] Eosinophil, Absolute 0.2 10 3/mcL Normal 0.0-0.4 [facility] ([place]) Comment on above: Performed By: #### H CV1 #### [place] [address] #### CBC, ADIFF, CK, ANEU, CMP, A1C, LIPID, VIDH, MG, TSH, GFR, B1WB, ZINC #### [address] [address] Eosinophils/100 WBC (Bld) 3.2 % Normal 0.0-7.0 [facility] ([place]) Comment on above: Performed By: #### H CV1 #### [place] [address] #### CBC, ADIFF, CK, ANEU, CMP, A1C, LIPID, VIDH, MG, TSH, GFR, B1WB, ZINC #### [address] [address] Lymphocyte, Absolute 1.8 10 3/mcL Normal 0.8-3.9 [facility] ([place]) Comment on above: Performed By: #### H CV1 #### [place] [address] #### CBC, ADIFF, CK, ANEU, CMP, A1C, LIPID, VIDH, MG, TSH, GFR, B1WB, ZINC #### [address] [address] Lymphocytes/100 WBC (Bld) 33.7 % Normal 10.0-50.0 [facility] ([place] Comment on above: Performed By: #### H CV1 #### [place] [address] #### CBC, ADIFF, CK, ANEU, CMP, A1C, LIPID, VIDH, MG, TSH, GFR, B1WB, ZINC #### [address] [address] Monocyte, Absolute 0.5 10 3/mcL Normal 0.2-1.0 [facility] ([place] Comment on above: Performed By: #### H CV1 #### [place] [address] #### CBC, ADIFF, CK, ANEU, CMP, A1C, LIPID, VIDH, MG, TSH, GFR, B1WB, ZINC #### [address] [address] Monocytes/100 WBC (Bld) 10.3 % Normal 1.7-13.0 [facility] ([place] Comment on above: Performed By: #### H CV1 #### [place] [address] #### CBC, ADIFF, CK, ANEU, CMP, A1C, LIPID, VIDH, MG, TSH, GFR, B1WB, ZINC #### [address] [address] Neutrophils/100 WBC (Bld) 52.1 % Normal 37.0-80.0 [facility] ([place] Comment on above: Performed By: #### H CV1 #### [place] [address] #### CBC, ADIFF, CK, ANEU, CMP, A1C, LIPID, VIDH, MG, TSH, GFR, B1WB, ZINC #### [address] [address] .GFRon 04-26-2022 GFR 71 ml/min/1.73sqm Normal [facility] ([place] Comment on above: Result Comment: GFR Population [...] meters Performed By: #### H CV1 #### [address] [address] #### CBC, ADIFF, CK, ANEU, CMP, A1C, LIPID, VIDH, MG, TSH, GFR, B1WB, ZINC #### [place] [address] [place], [place] [address] GFR Non- 59 ml/min/1.73sqm Normal [facility] ([place] Comment on above: Result Comment: GFR Population [...] meters Performed By: #### H CV1 #### [address] [address] #### CBC, ADIFF, CK, ANEU, CMP, A1C, LIPID, VIDH, MG, TSH, GFR, B1WB, ZINC #### [address] [address] .NEUABSon 04-26-2022 Neutrophil, Absolute 2.8 10 3/mcL Low 2.9-6.2 [facility] ([place]) Comment on above: Performed By: #### H CV1 #### [address] [address] #### CBC, ADIFF, CK, ANEU, CMP, A1C, LIPID, VIDH, MG, TSH, GFR, B1WB, ZINC #### [address] [address] A1Con 04-26-2022 HbA1c (Bld) [Mass fraction] 5.7 % Normal 4.3-6.4 [facility] ([place] Comment on above: Performed By: #### H CV1 #### [address] [address] #### CBC, ADIFF, CK, ANEU, CMP, A1C, LIPID, VIDH, MG, TSH, GFR, B1WB, ZINC #### [address] [address] B12on 04-26-2022 Cobalamin (Vitamin B12) [Mass/Vol] 328 pg/mL Normal 211-911 [facility] ([place] Comment on above: Performed By: #### H CV1 #### [address] [address] #### CBC, ADIFF, CK, ANEU, CMP, A1C, LIPID, VIDH, MG, TSH, GFR, B1WB, ZINC #### [address] [address] CBCon 04-26-2022 Erythrocyte distribution width (RBC) [Ratio] 13.0 % Normal 11.5-14.5 [facility] ([place] Comment on above: Performed By: #### H CV1 #### [address] [address] #### CBC, ADIFF, CK, ANEU, CMP, A1C, LIPID, VIDH, MG, TSH, GFR, B1WB, ZINC #### [address] [address] Hematocrit (Bld) [Volume fraction] 37.6 % Normal 37.0-47.0 [facility] ([place] Comment on above: Performed By: #### H CV1 #### [place] [address] #### CBC, ADIFF, CK, ANEU, CMP, A1C, LIPID, VIDH, MG, TSH, GFR, B1WB, ZINC #### [address] [address] Hgb 12.7 G/dL Normal 12.0-16.0 [facility] ([place] Comment on above: Performed By: #### H CV1 #### [place] [address] #### CBC, ADIFF, CK, ANEU, CMP, A1C, LIPID, VIDH, MG, TSH, GFR, B1WB, ZINC #### [address] [address] MCH (RBC) [Entitic mass] 31.4 pg High 27.0-31.2 [facility] ([place] Comment on above: Performed By: #### H CV1 #### [place] [address] #### CBC, ADIFF, CK, ANEU, CMP, A1C, LIPID, VIDH, MG, TSH, GFR, B1WB, ZINC #### [address] [address] MCHC 33.8 G/dL Normal 33.0-37.0 [facility] ([place] Comment on above: Performed By: #### H CV1 #### [place] [address] #### CBC, ADIFF, CK, ANEU, CMP, A1C, LIPID, VIDH, MG, TSH, GFR, B1WB, ZINC #### [address] [address] MCV (RBC) [Entitic vol] 92.9 fL Normal 80.0-94.0 [facility] ([place] Comment on above: Performed By: #### H CV1 #### [place] [address] #### CBC, ADIFF, CK, ANEU, CMP, A1C, LIPID, VIDH, MG, TSH, GFR, B1WB, ZINC #### [address] [address] Platelet 278 10 3/mcL Normal 130-400 [facility] ([place] Comment on above: Performed By: #### H CV1 #### [place] [address] #### CBC, ADIFF, CK, ANEU, CMP, A1C, LIPID, VIDH, MG, TSH, GFR, B1WB, ZINC #### [address] [address] Platelet mean volume (Bld) [Entitic vol] 7.2 fL Low 7.4-10.4 [facility] ([place] Comment on above: Performed By: #### H CV1 #### [place] [address] #### CBC, ADIFF, CK, ANEU, CMP, A1C, LIPID, VIDH, MG, TSH, GFR, B1WB, ZINC #### [address] [address] RBC 4.05 10 6/mcL Low 4.20-5.40 [facility] ([place] Comment on above: Performed By: #### H CV1 #### [place] [address] #### CBC, ADIFF, CK, ANEU, CMP, A1C, LIPID, VIDH, MG, TSH, GFR, B1WB, ZINC #### [address] [address] WBC 5.3 10 3/mcL Normal 4.6-10.8 [facility] [place] Comment on above: Performed By: #### H CV1 #### [place] [address] #### CBC, ADIFF, CK, ANEU, CMP, A1C, LIPID, VIDH, MG, TSH, GFR, B1WB, ZINC #### [address] [address] [facility] 04-26-2022 Albumin Level 4.1 G/dL Normal 3.5-5.0 [facility] [place] Comment on above: Performed By: #### H CV1 #### [place] [address] #### CBC, ADIFF, CK, ANEU, CMP, A1C, LIPID, VIDH, MG, TSH, GFR, B1WB, ZINC #### [address] [address] Albumin/Globulin [Mass ratio] 1.3 {ratio} Normal 1.1-2.5 [facility] ([place] Comment on above: Performed By: #### H CV1 #### [place] [address] #### CBC, ADIFF, CK, ANEU, CMP, A1C, LIPID, VIDH, MG, TSH, GFR, B1WB, ZINC #### [address] [address] ALP [Catalytic activity/Vol] 85 U/L Normal 40-135 [facility] ([place] Comment on above: Performed By: #### H CV1 #### [place] [address] #### CBC, ADIFF, CK, ANEU, CMP, A1C, LIPID, VIDH, MG, TSH, GFR, B1WB, ZINC #### [address] [address] ALT [Catalytic activity/Vol] 25 U/L Normal 14-59 [facility] ([place] Comment on above: Performed By: #### H CV1 #### [place] [address] #### CBC, ADIFF, CK, ANEU, CMP, A1C, LIPID, VIDH, MG, TSH, GFR, B1WB, ZINC #### [address] [address] AST [Catalytic activity/Vol] 18 U/L Normal 10-40 [facility] ([place] Comment on above: Performed By: #### H CV1 #### [place] [address] #### CBC, ADIFF, CK, ANEU, CMP, A1C, LIPID, VIDH, MG, TSH, GFR, B1WB, ZINC #### [address] [address] Bili Total 0.2 mg/dL Normal 0.2-1.0 [facility] ([place] Comment on above: Result Comment: Use of this assay is not recommended for patients undergoing treatment with eltrombopag due to the potential for falsely elevated results. Performed By: #### H CV1 #### [place] [address] #### CBC, ADIFF, CK, ANEU, CMP, A1C, LIPID, VIDH, MG, TSH, GFR, B1WB, ZINC #### [address] [address] BUN/Creatinine Ratio 10 ratio Normal 7-27 [facility] ([place]) Comment on above: Performed By: #### H CV1 #### [address] [address] #### CBC, ADIFF, CK, ANEU, CMP, A1C, LIPID, VIDH, MG, TSH, GFR, B1WB, ZINC #### [address] [address] Calcium [Mass/Vol] 9.6 mg/dL Normal 8.4-10.2 [facility] ([place] Comment on above: Performed By: #### H CV1 #### [place] [address] #### CBC, ADIFF, CK, ANEU, CMP, A1C, LIPID, VIDH, MG, TSH, GFR, B1WB, ZINC #### [address] [address] Chloride [Moles/Vol] 105 mmol/L Normal 98-107 [facility] ([place]) Comment on above: Performed By: #### H CV1 #### [address] [address] #### CBC, ADIFF, CK, ANEU, CMP, A1C, LIPID, VIDH, MG, TSH, GFR, B1WB, ZINC #### [address] [address] CO2 [Moles/Vol] 30 mmol/L High 22-29 [facility] ([place] Comment on above: Performed By: #### H CV1 #### [address] [address] #### CBC, ADIFF, CK, ANEU, CMP, A1C, LIPID, VIDH, MG, TSH, GFR, B1WB, ZINC #### [address] [address] Creatinine [Mass/Vol] 1.00 mg/dL Normal 0.55-1.02 [facility] ([place]) Comment on above: Performed By: #### H CV1 #### [place] [address] #### CBC, ADIFF, CK, ANEU, CMP, A1C, LIPID, VIDH, MG, TSH, GFR, B1WB, ZINC #### [address] [address] Electrolyte Balance 5.0 mEq/L Normal 4.0-15.0 Count includes the [facility] ([place]) Comment on above: Performed By: #### H CV1 #### [place] [address] #### CBC, ADIFF, CK, ANEU, CMP, A1C, LIPID, VIDH, MG, TSH, GFR, B1WB, ZINC #### [address] [address] Globulin 3.1 G/dL Normal [facility] ([place] Comment on above: Performed By: #### H CV1 #### [facility] [address] [place], [place] [address] #### CBC, ADIFF, CK, ANEU, CMP, A1C, LIPID, VIDH, MG, TSH, GFR, B1WB, ZINC #### [address] [address] Glucose [Mass/Vol] 69 mg/dL Low 70-105 [facility] ([place] Comment on above: Performed By: #### H CV1 #### [address] [address] #### CBC, ADIFF, CK, ANEU, CMP, A1C, LIPID, VIDH, MG, TSH, GFR, B1WB, ZINC #### [address] [address] Potassium [Moles/Vol] 5.0 mmol/L Normal 3.5-5.1 [facility] ([place] Comment on above: Performed By: #### H CV1 #### [place] [address] #### CBC, ADIFF, CK, ANEU, CMP, A1C, LIPID, VIDH, MG, TSH, GFR, B1WB, ZINC #### [address] [address] Sodium [Moles/Vol] 140 mmol/L Normal 136-145 [facility] ([place] Comment on above: Performed By: #### H CV1 #### [address] [address] #### CBC, ADIFF, CK, ANEU, CMP, A1C, LIPID, VIDH, MG, TSH, GFR, B1WB, ZINC #### [address] [address] Total Protein 7.2 G/dL Normal 6.4-8.2 [facility] ([place] Comment on above: Performed By: #### H CV1 #### [address] [address] #### CBC, ADIFF, CK, ANEU, CMP, A1C, LIPID, VIDH, MG, TSH, GFR, B1WB, ZINC #### [address] [address] Urea nitrogen [Mass/Vol] 10 mg/dL Normal 7-18 [facility] ([place] Comment on above: Performed By: #### H CV1 #### [address] [address] #### CBC, ADIFF, CK, ANEU, CMP, A1C, LIPID, VIDH, MG, TSH, GFR, B1WB, ZINC #### [address] [address] [place] 04-26-2022 Ferritin [Mass/Vol] 17.0 ng/mL Normal 8.0-252.0 Count includes the [facility] ([place] Comment on above: Performed By: #### H CV1 #### [address] [address] #### CBC, ADIFF, CK, ANEU, CMP, A1C, LIPID, VIDH, MG, TSH, GFR, B1WB, ZINC #### [address] [address] FOLon 04-26-2022 Folate 11.20 ng/mL Normal 5.38-24.00 [facility] ([place] Comment on above: Performed By: #### H CV1 #### [address] [address] #### CBC, ADIFF, CK, ANEU, CMP, A1C, LIPID, VIDH, MG, TSH, GFR, B1WB, ZINC #### [address] [address] LABORATORYOrdered By: Nir Hackett on 04-26-2022 Albumin [...] 04-26-2022 Cholesterol [Mass/Vol] 172 mg/dL Normal 0-200 [facility] ([place]) Comment on above: Result Comment: Chol esterol Reference Interval: Less than 200 Desirable 200-239 Borderline high risk 240 and above High risk Performed By: #### H CV1 #### [place] [address] #### CBC, ADIFF, CK, ANEU, CMP, A1C, LIPID, VIDH, MG, TSH, GFR, B1WB, ZINC #### [address] [address] Cholesterol in HDL [Mass/Vol] 62 mg/dL High 40-60 [facility] ([place] Comment on above: Performed By: #### H CV1 #### [place] [address] #### CBC, ADIFF, CK, ANEU, CMP, A1C, LIPID, VIDH, MG, TSH, GFR, B1WB, ZINC #### [address] [address] Cholesterol in LDL [Mass/Vol] 78 mg/dL Normal 0-130 [facility] ([place] Comment on above: Performed By: #### H CV1 #### [address] [address] #### CBC, ADIFF, CK, ANEU, CMP, A1C, LIPID, VIDH, MG, TSH, GFR, B1WB, ZINC #### [address] [address] Triglyceride [Mass/Vol] 159 mg/dL High 0-150 [facility] ([place] Comment on above: Result Comment: Trig lyceride Reference Interval: Less than 150 Normal 150-199 Borderline high risk 200-499 High risk 500 or higher Very high risk Performed By: #### H CV1 #### [place] [address] #### CBC, ADIFF, CK, ANEU, CMP, A1C, LIPID, VIDH, MG, TSH, GFR, B1WB, ZINC #### [address] [address] VIDHon 04-26-2022 Vit. D 25-Hydroxy 28.9 ng/mL Normal [facility] ([place] Comment on above: Result Comment: Inte rpretive Values Based on Total 25(OH) Vitamin D: Deficient <20 ng/mL Insufficient 20 - <30 ng/mL Sufficient 30-100 ng/mL Performed By: #### H CV1 #### [place] [address] #### CBC, ADIFF, CK, ANEU, CMP, A1C, LIPID, VIDH, MG, TSH, GFR, B1WB, ZINC #### [address] [address] .Auto Diffon 04-15-2022 Basophil, Absolute 0.0 10 3/mcL Normal 0.0-0.2 [facility] ([place] Comment on above: Performed By: #### A HUMBERTO CONTEH #### [address] [address] Basophils/100 WBC (Bld) 0.7 % Normal 0.0-2.5 [facility] ([place] Comment on above: Performed By: #### A HUMBERTO CONTEH #### [address] [address] Eosinophil, Absolute 0.2 10 3/mcL Normal 0.0-0.4 [facility] ([place] Comment on above: Performed By: #### A WERO TROPHS #### [address] [address] Eosinophils/100 WBC (Bld) 3.1 % Normal 0.0-7.0 [facility] ([place] Comment on above: Performed By: #### A WERO TROPHS #### [address] [address] Lymphocyte, Absolute 1.9 10 3/mcL Normal 0.8-3.9 [facility] ([place]) Comment on above: Performed By: #### A WERO TROPHS #### [address] [address] Lymphocytes/100 WBC (Bld) 30.5 % Normal 10.0-50.0 [facility] ([place]) Comment on above: Performed By: #### A WERO TROPHS #### [address] [address] Monocyte, Absolute 0.5 10 3/mcL Normal 0.2-1.0 [facility] ([place]) Comment on above: Performed By: #### A WERO TROPHS #### [address] [address] Monocytes/100 WBC (Bld) 8.5 % Normal 1.7-13.0 [facility] ([place]) Comment on above: Performed By: #### A WERO TROPHS #### [address] [address] Neutrophils/100 WBC (Bld) 57.2 % Normal 37.0-80.0 [facility] ([place]) Comment on above: Performed By: #### A WERO TROPHS #### [address] [address] .GFRon 04-15-2022 GFR 77 ml/min/1.73sqm Normal [facility] ([place]) Comment on above: Result Comment: GFR [...] meters Performed By: #### H CV1 #### [address] [address] #### CBC, ADIFF, CK, ANEU, CMP, A1C, LIPID, VIDH, MG, TSH, GFR, B1WB, ZINC #### [facility] [address] [address] GFR Non- 64 ml/min/1.73sqm Normal [facility] ([place] Comment on above: Result Comment: GFR Population [...] meters Performed By: #### H CV1 #### [address] [address] #### CBC, ADIFF, CK, ANEU, CMP, A1C, LIPID, VIDH, MG, TSH, GFR, B1WB, ZINC #### [facility] [address] [address] .NEUABSon 04-15-2022 Neutrophil, Absolute 3.5 10 3/mcL Normal 2.9-6.2 [facility] ([place] Comment on above: Performed By: #### HUMBERTO WADE #### [address] [address] A1Con 04-15-2022 HbA1c (Bld) [Mass fraction] 5.4 % Normal 4.3-6.4 [facility] ([place] Comment on above: Performed By: #### H CV1 #### [place] [id number] [place] [address] #### CBC, ADIFF, CK, ANEU, CMP, A1C, LIPID, VIDH, MG, TSH, GFR, B1WB, ZINC #### [address] [address] CBCon 04-15-2022 Erythrocyte distribution width (RBC) [Ratio] 12.8 % Normal 11.5-14.5 [facility] ([place] Comment on above: Performed By: #### A WERO TROPHS #### [address] [address] Hematocrit (Bld) [Volume fraction] 38.3 % Normal 37.0-47.0 [facility] ([place] Comment on above: Performed By: #### A WERO TROPHS #### [address] [address] Hgb 13.1 G/dL Normal 12.0-16.0 [facility] ([place]) Comment on above: Performed By: #### A WERO TROPHS #### [address] [address] MCH (RBC) [Entitic mass] 31.4 pg High 27.0-31.2 [facility] [place] Comment on above: Performed By: #### A WERO TROPHS #### [address] [address] MCHC 34.1 G/dL Normal 33.0-37.0 [facility] ([place]) Comment on above: Performed By: #### A WERO TROPHS #### [address] [address] MCV (RBC) [Entitic vol] 92.1 fL Normal 80.0-94.0 [facility] ([place]) Comment on above: Performed By: #### A WERO TROPHS #### [address] [address] Platelet 313 10 3/mcL Normal 130-400 [facility] ([place] Comment on above: Performed By: #### A WERO TROPHS #### [address] [address] Platelet mean volume (Bld) [Entitic vol] 7.3 fL Low 7.4-10.4 [facility] ([place] Comment on above: Performed By: #### A WERO TROPHS #### [address] [address] RBC 4.16 10 6/mcL Low 4.20-5.40 [facility] [place] Comment on above: Performed By: #### A WERO TROPHS #### [address] [address] WBC 6.1 10 3/mcL Normal 4.6-10.8 [facility] [place] Comment on above: Performed By: #### A KRISTAL CONTEHS #### [address] [address] CMPon 04-15-2022 Albumin Level 4.2 G/dL Normal 3.5-5.0 [facility] [place] Comment on above: Performed By: #### A WERO TROPHS #### [address] [address] Albumin/Globulin [Mass ratio] 1.4 {ratio} Normal 1.1-2.5 [facility] ([place] Comment on above: Performed By: #### A WERO TROPHS #### [address] [address] ALP [Catalytic activity/Vol] 84 U/L Normal 40-135 [facility] [place] Comment on above: Performed By: #### A WERO TROPHS #### [address] [address] ALT [Catalytic activity/Vol] 28 U/L Normal 14-59 [facility] [place] Comment on above: Performed By: #### A KRISTAL CONTEHS #### [address] [address] AST [Catalytic activity/Vol] 18 U/L Normal 10-40 [facility] [place] Comment on above: Performed By: #### A KRISTAL CONTEHS #### [address] [address] Bili Total 0.3 mg/dL Normal 0.2-1.0 [facility] [place] Comment on above: Result Comment: Use of this assay is not recommended for patients undergoing treatment with eltrombopag due to the potential for falsely elevated results. Performed By: #### A HUMBERTO CONTEH #### [address] [address] BUN/Creatinine Ratio 17 ratio Normal 7-27 [facility] ([place] Comment on above: Performed By: #### A KRISTAL CONTEHS #### [address] [address] Calcium [Mass/Vol] 9.5 mg/dL Normal 8.4-10.2 [facility] ([place] Comment on above: Performed By: #### A KRISTAL CONTEHS #### [address] [address] Chloride [Moles/Vol] 103 mmol/L Normal 98-107 [facility] ([place] Comment on above: Performed By: #### A KRISTAL CONTEHS #### [address] [address] CO2 [Moles/Vol] 30 mmol/L High 22-29 [facility] [place] Comment on above: Performed By: #### A KRISTAL CONTEHS #### [address] [address] Creatinine [Mass/Vol] 0.93 mg/dL Normal 0.55-1.02 [facility] ([place] Comment on above: Performed By: #### A KRISTAL CONTEHS #### [address] [address] Electrolyte Balance 8.0 mEq/L Normal 4.0-15.0 Count includes the [facility] ([place] Comment on above: Performed By: #### A WERO TROPHS #### [address] [address] Globulin 3.1 G/dL Normal [facility] ([place] Comment on above: Performed By: #### A WERO TROPHS #### [address] [address] Glucose [Mass/Vol] 84 mg/dL Normal 70-105 [facility] ([place] Comment on above: Performed By: #### A WERO TROPHS #### [address] [address] Potassium [Moles/Vol] 4.9 mmol/L Normal 3.5-5.1 [facility] ([place] Comment on above: Performed By: #### A WERO TROPHS #### [address] [address] Sodium [Moles/Vol] 141 mmol/L Normal 136-145 [facility] ([place] Comment on above: Performed By: #### A WERO TROPHS #### [address] [address] Total Protein 7.3 G/dL Normal 6.4-8.2 [facility] ([place] Comment on above: Performed By: #### A WERO TROPHS #### [address] [address] Urea nitrogen [Mass/Vol] 16 mg/dL Normal 7-18 [facility] ([place] Comment on above: Performed By: #### A WERO TROPHS #### [address] [address] LABORATORYOrdered By: Paris Hernandez on 04-15-2022 Albumin [...] MAMMOGRAM DIAGNOSTIC BILATERAL W/JUMA ORIGINAL FROM: [facility] [address] [place], [place] [address] PROCEDURE FOR: AMANDA GRUBBS [address] [place] [address] Home: PID#: [id number] Exam#: [id number] : 1970 Age: 51 TO: FRANKY PEARSON DO [facility] [place][note 2] [place] [address] Fax: NO FAX EXAMINATION: DIAGNOSTIC BILATERAL MAMMOGRAM [...] FRANKY PEARSON CLINICAL: ASYMMETRIC DENSITY RIGHT BREAST. Coremaking Supervisor: JENNIFER MARTINEZ RT(R) (M) letter sent: Abnormal-Needs additional work up BI-RADS 0 Mammogram BI-RADS: 0 Indeterminate Normal [facility] ([place] US BREAST RIGHT LIMITEDon US BREAST RIGHT LIMITED ORIGINAL FROM: [address] [address] PROCEDURE FOR: AMANDA VarnerFiorella [place] [address] [place] [address] Home: PID#: [id number] Exam#: [id number] : 1970 Age: 51 TO: FRANKY PEARSON DO [address] [place] [address] Fax: NO FAX EXAMINATION: ULTRASOUND OF THE [...] Provider: FRANKY PEARSON CLINICAL: 6 MONTHS FOLLOW-UP. Coremaking Supervisor: MANUEL CHIRINOS RT,RDMS letter sent: Probably Benign BI-RADS 3 Ultrasound BI-RADS: 3 Probably benign Normal [facility] ([place]) CT THORAX W/O CONTRASTon CT THORAX W/O [...] upper lobe on image 35 is unchanged. Tank Calibrator right upper lobe nodule measures 3 mm on image 20, unchanged. A risk control representative nodule along the right minor fissure [...] Date: 12/02/2021 3:00:41 PM Ordering Provider: FRANKY Silverio [facility]) LABORATORYOrdered By: Nir Hackett on 05-22-2021 ADMITTED TO INTENSIVE CARE UNIT FOR CONDITION OF INTEREST:FIND:PT:^YONI ENT:ORD: No (05/22/21 6:52 AM) Invalid Interpretation Code AO Auto Urine SS EMPLOYED IN A HEALTHCARE SETTING:FIND:PT:^PATIE NT:ORD: No (05/22/21 6:52 AM) Invalid Interpretation Code AO Auto Urine SS FIRST TEST FOR CONDITION OF INTEREST:FIND:PT:^YONI ENT:ORD: No (05/22/21 6:52 AM) Invalid Interpretation Code AO Auto Urine SS HAS SYMPTOMS RELATED TO CONDITION OF INTEREST:FIND:PT:^YONI ENT:ORD: No (05/22/21 6:52 AM) Invalid Interpretation Code AO Auto Urine SS Illness or injury onset date and time [id number] Invalid Interpretation Code AO Auto Urine SS Patient was hospitalized because of this condition No (05/22/21 6:52 AM) Invalid Interpretation Code AO Auto Urine SS status Not (05/22/21 6:52 AM) Invalid Interpretation Code AO Auto Urine SS RESIDES IN A CONGREGATE CARE SETTING:FIND:PT:^PATIE NT:ORD: No (05/22/21 6:52 AM) Invalid Interpretation Code [...] CORONAVIRUS 2019,PCR NOT DETECTED Normal Not Detected [facility] Comment on above: Result Comment: This assay is designed to detect the ORF1ab and/or S genes of SARS-CoV-2 via nucleic acid amplification. A Not Detected result does not preclude 2019-nCoV infection since the adequacy of sample collection and/or low viral burden may result in presence of viral nucleic acids below the clinical sensitivity of this test method. Fact sheet for providers: www.fda.gov/media/202413/download Fact sheet for patients: www.fda.gov/media/508758/download This test has received FDA Emergency Use Authorization (EUA) and has been verified by [facility] ([facility]). This test is only authorized for the duration of time that circumstances exist to justify the authorization of the emergency use of in vitro diagnostic tests for the detection of SARS-CoV-2 virus and/or diagnosis of COVID-19 infection under section 564(b)(1) of the Act, 21 U.S.C. 360bbb-3(b)(1), unless the authorization is terminated or revoked sooner. [facility] is certified under CLIA-88 as qualified to perform high complexity testing. Testing is performed in the [facility] laboratories located at [address] [place] [address]. Performed By: #### C OV19 #### [address] [place] [address] Basic Metabolic Panelon 01-10 Anion gap [Moles/Vol] 8 mmol/L Normal 8-15 [facility] Comment on above: Performed By: #### B MP #### [facility] [address] [place] [address] Calcium [Mass/Vol] 9.8 mg/dL Normal 8.6-10.6 [facility] Comment on above: Performed By: #### B MP #### [facility] [address] [place] [address] Chloride [Moles/Vol] 106 mmol/L Normal 98-107 [facility] Comment on above: Performed By: #### B MP #### [facility] [address] [place] [address] [phone] CO2 [Moles/Vol] 25 mmol/L Normal 22-29 [facility] Comment on above: Performed By: #### B MP #### [facility] [address] [place] [address] [phone] Creatinine [Mass/Vol] 0.7 mg/dL Normal 0.5-1.2 [facility] Comment on above: Performed By: #### B MP #### [facility] [address] [place] [address] [phone] eGFR -Amer >=60 Normal >=60 [facility] Comment on above: Performed By: #### B MP #### [facility] [address] [place] [address] 12565 GFR/1.73 sq M predicted among non-blacks MDRD (S/P/Bld) [Vol rate/Area] mL/min/{1.73_m2} Normal >=60 [facility] Comment on above: Performed By: #### B MP #### [facility] [address] [place] [address] [phone] Glucose [Mass/Vol] 75 mg/dL Normal 74-109 [facility] Comment on above: Performed By: #### B MP #### [facility] [address] [place] [address] [phone] Potassium [Moles/Vol] 4.7 mmol/L Normal 3.4-5.1 [facility] Comment on above: Performed By: #### B MP #### [facility] [address] [place] [address] [phone] Sodium [Moles/Vol] 139 mmol/L Normal 136-145 [facility] Comment on above: Performed By: #### B MP #### [facility] [address] [place] [address] [phone] Urea nitrogen [Mass/Vol] 11 mg/dL Normal 6-23 [facility] Comment on above: Performed By: #### B MP #### [facility] [address] [place] [address] 59506 CBC with Diffon 02-02-2020 Basophils (Bld) [#/Vol] 0.0 x(10)3/cumm Normal 0.0-0.1 [facility] Comment on above: Performed By: #### C BCDIFF #### [facility] [address] [place] [address] 46762 Basophils/100 WBC (Bld) 0.6 % Normal 0.0-1.0 [facility] Comment on above: Performed By: #### C BCDIFF #### [facility] [address] [place] [address] 73669 Eosinophils (Bld) [#/Vol] 0.1 x(10)3/cumm Normal 0.0-0.4 [facility] Comment on above: Performed By: #### C BCDIFF #### [facility] [address] [place] [address] 55358 Eosinophils/100 WBC (Bld) 1.9 % Normal 0.0-6.1 [facility] Comment on above: Performed By: #### C BCDIFF #### [facility] [address] [place] [address] 79047 Erythrocyte distribution width (RBC) [Ratio] 13.0 % Normal 11.1-15.3 [facility] Comment on above: Performed By: #### C BCDIFF #### [facility] [address] [place] [address] 35988 Hematocrit (Bld) [Volume fraction] 39.1 % Normal 34.6-45.0 [facility] Comment on above: Performed By: #### C BCDIFF #### [facility] [address] [place] [address] 64685 Hemoglobin (Bld) [Mass/Vol] 13.4 g/dL Normal 11.5-15.5 [facility] Comment on above: Performed By: #### C BCDIFF #### [facility] [address] [place] [address] 31503 Lymphocytes (Bld) [#/Vol] 1.6 x(10)3/cumm Normal 0.8-2.9 [facility] Comment on above: Performed By: #### C BCDIFF #### [facility] [address] [place] [address] 32767 Lymphocytes/100 WBC (Bld) 34.2 % Normal 12.2-42.6 [facility] Comment on above: Performed By: #### C BCDIFF #### [facility] [address] [place] [address] 48379 MCH (RBC) [Entitic mass] 32.7 pg Normal 27.2-33.6 [facility] Comment on above: Performed By: #### C BCDIFF #### [facility] [address] [place] [address] 62274 MCHC (RBC) [Mass/Vol] 34.3 g/dL Normal 32.9-35.3 [facility] Comment on above: Performed By: #### C BCDIFF #### [facility] [address] [place] [address] 61941 MCV (RBC) [Entitic vol] 95.5 fL Normal 81.3-96.7 [facility] Comment on above: Performed By: #### C BCDIFF #### [facility] [address] [place] [address] 47291 Monocytes (Bld) [#/Vol] 0.4 x(10)3/cumm Normal 0.2-0.8 [facility] Comment on above: Performed By: #### C BCDIFF #### [facility] [address] [place] [address] 62959 Monocytes/100 WBC (Bld) 8.4 % Normal 3.3-11.6 [facility] Comment on above: Performed By: #### C BCDIFF #### [facility] [address] [place] [address] 87244 Neutrophils (Bld) [#/Vol] 2.6 x(10)3/cumm Normal 1.3-7.4 [facility] Comment on above: Performed By: #### C BCDIFF #### [facility] [address] [place] [address] 71170 Neutrophils/100 WBC (Bld) 54.9 % Normal 44.9-78.8 [facility] Comment on above: Performed By: #### C BCDIFF #### [facility] [address] [place] [address] 87921 Platelet mean volume (Bld) [Entitic vol] 8.2 fL Normal 6.4-10.0 [facility] Comment on above: Performed By: #### C BCDIFF #### [facility] [address] [place] [address] 97559 Platelets (Bld) [#/Vol] 245 x(10)3/cumm Normal 138-367 [facility] Comment on above: Performed By: #### C BCDIFF #### [facility] [address] [place] [address] 43634 Plt Morph Normal [facility] Comment on above: Performed By: #### C BCDIFF #### [facility] [address] [place] [address] 50002 RBC (Bld) [#/Vol] 4.09 X(10)6/cumm Normal 3.90-5.10 [facility] Comment on above: Performed By: #### C BCDIFF #### [facility] [address] [place] [address] 14026 RBC Morph cont Normal [facility] Comment on above: Performed By: #### C BCDIFF #### [facility] [address] [place] [address] 41193 RBC morphology finding Nom (Bld) Normal [facility] Comment on above: Performed By: #### C BCDIFF #### [facility] [address] [place] [address] 60518 WBC (Bld) [#/Vol] 4.7 x(10)3/cumm Normal 3.6-10.3 [facility] Comment on above: Performed By: #### C BCDIFF #### [facility] [address] [place], [place] [id number] WBC Morph [facility] Comment on above: Performed By: #### C BCDIFF #### [facility] [address] [place] [address] CORONAVIRUS 2019 BY PCRon Lab Specimen Source Nasal, Nasopharyngeal Normal [facility] Comment on above: Performed By: #### C OV19 #### [facility] [address] [place] [address] COVID-19 by PCR ()on 02-01 Coronavirus 2019 PCR Not Detected Normal Not Detected [facility] Comment on above: Order Comment: Nasal swab in Saline, Jose M opharyngeal or Oropharyngeal in viral transport media or saline Performed By: #### C OVUH #### [place] [address] Performing Lab Testing performed by : [facility] [address] [place] [address] CLIA # [id number] [facility] Comment on above: Order Comment: Nasal swab in Saline, Jose M opharyngeal or Oropharyngeal in viral transport media or saline Performed By: #### C OVUH #### [place] [address] Specimen source Nom (Unsp spec) Nasal, ACID LOADER [facility] Comment on above: Order Comment: Nasal swab in Saline, Jose M opharyngeal or Oropharyngeal in viral transport media or saline Performed By: #### C OVUH #### [place] [id number] CR Finger(s) Min 2 Views [place] ateralon 01-02-2019 CR Finger(s) Min 2 Views Bilateral Patient Name: AMANDA GRUBBS Diagnostic Radiology Exam Date/Time 01/02/2019 08:01:00 EDT Exam CR Finger(s) Min 2 Views Ordering Physician MD GONGORA DEREK J Accession Number [id number] CPT4 Codes 96681 () Reason For Exam PAIN Report Right finger three views HISTORY: Pain Three views of the fifth digit are submitted for interpretation. No fracture or dislocation. No significant degenerative changes. IMPRESSION: Normal examination. Report Dictated on Final Dictating Physician: MD CARRILLO MALAY Signed Date and Time: 01/02/2019 11:20 am Signed by: MD CARRILLO MALAY Transcribed Date and Time: 01/02/2019 11:21 Normal [facility] CR Finger(s) Min 2 Views Rig hton 01-02-2019 CR Finger(s) Min 2 Views Right Patient Name: AMANDA GRUBBS Diagnostic Radiology Exam Date/Time 01/02/2019 08:01:18 EDT Exam CR Finger(s) Min 2 Views Right Ordering Physician MD GONGORA DEREK J Accession Number [id number] Reason For Exam 5th digit pain Report Right finger three views HISTORY: Pain Three views of the fifth digit are submitted for interpretation. No fracture or dislocation. No significant degenerative changes. IMPRESSION: Normal examination. Report Dictated on Final Dictating Physician: MD CARRILLO MALAY Signed Date and Time: 01/02/2019 11:20 am Signed by: MD CARRILLO MALAY Transcribed Date and Time: 01/21/2019 8:27 Normal [facility] Basic Metabolic Panelon 10-3 Calcium mass conc 8.4 mg/dL Normal 8.4-10.4 [facility] Comment on above: Performed By: #### H A1C2, HEMOG, ALB3, BMP3 ####[place] [address] [place] [address] Anion gap 3 molar conc 7 Normal [facility] Comment on above: Performed By: #### H A1C2, HEMOG, ALB3, BMP3 ####[place] [address] [place] [address] CO2 molar conc 23 mmol/L Normal 22-30 [facility] Comment on above: Performed By: #### H A1C2, HEMOG, ALB3, BMP3 ####[place] [address] [place], [place] Creatinine mass conc 0.86 mg/dL Normal 0.52-1.25 [facility] Comment on above: Performed By: #### H A1C2, HEMOG, ALB3, BMP3 ####[place] [address] [place] [address] GFR/1.73 sq M predicted among blacks MDRD vol rate/area (S/P/Bld) mL/min/{1.73_m2} Normal >60 [facility] Comment on above: Performed By: #### H A1C2, HEMOG, ALB3, BMP3 ####[place] [address] [place], [place] GFR/1.73 sq M predicted among non-blacks MDRD vol rate/area (S/P/Bld) mL/min/{1.73_m2} Normal >60 [facility] Comment on above: Result Comment: Sour ce- MDRD equation with creatinine calibration to IDMS(NKDEP) eGFR not recommended for drug dose adjustment Performed By: #### H A1C2, HEMOG, ALB3, BMP3 ####[place] [address] [place], [place] Glucose mass conc 107 mg/dL High 70-100 [facility] Comment on above: Performed By: #### H A1C2, HEMOG, ALB3, BMP3 ####[place] [address] [place], [place] Urea nitrogen mass conc 11 mg/dL Normal 7-20 [facility] Comment on above: Performed By: #### H A1C2, HEMOG, ALB3, BMP3 ####[place] [address] [place], [place] Chloride molar conc 108 mmol/L High 98-107 [facility] Comment on above: Performed By: #### H A1C2, HEMOG, ALB3, BMP3 ####[place] [address] [place] Potassium molar conc 4.1 mmol/L Normal 3.5-5.1 [facility] Comment on above: Performed By: #### H A1C2, HEMOG, ALB3, BMP3 ####[address] Sodium molar conc 138 mmol/L Normal 137-145 [facility] Comment on above: Performed By: #### H A1C2, HEMOG, ALB3, BMP3 ####[address] Hemogram w/ Autodiffon 04-10 Abs Baso Cnt 0.0 10*3/uL Normal 0.0-0.2 [facility] Comment on above: Performed By: #### H A1C2, HEMOG, ALB3, BMP3 ####[address] Abs Neutrophile Cnt 7.7 10*3/uL High 1.8-7.0 [facility] Comment on above: Performed By: #### H A1C2, HEMOG, ALB3, BMP3 ####[address] Basophils/100 WBC Auto (Bld) 0.2 % Normal 0.0-2.0 [facility] Comment on above: Performed By: #### H A1C2, HEMOG, ALB3, BMP3 ####[address] Eosinophils Auto #/vol (Bld) 0.0 10*3/uL Normal 0.0-0.5 [facility] Comment on above: Performed By: #### H A1C2, HEMOG, ALB3, BMP3 ####[address] Eosinophils/100 WBC Auto (Bld) 0.1 % Low 1.0-6.0 [facility] Comment on above: Performed By: #### H A1C2, HEMOG, ALB3, BMP3 ####[address] Erythrocyte distribution width Auto Ratio (RBC) 13.4 % Normal 11.5-14.5 [facility] Comment on above: Performed By: #### H A1C2, HEMOG, ALB3, BMP3 ####[address] Granulocytes/100 WBC (Bld) 74.9 % Normal 40.0-80.0 [facility] Comment on above: Performed By: #### H A1C2, HEMOG, ALB3, BMP3 ####[address] Hematocrit Auto Volume Fraction (Bld) 32.0 % Low 35.0-47.0 [facility] Comment on above: Performed By: #### H A1C2, HEMOG, ALB3, BMP3 ####[address] Hemoglobin mass conc (Bld) 10.9 g/dL Low 11.7-16.0 [facility] Comment on above: Performed By: #### H A1C2, HEMOG, ALB3, BMP3 ####[address] Lymphocytes Auto #/vol (Bld) 2.0 10*3/uL Normal 1.0-4.3 [facility] Comment on above: Performed By: #### H A1C2, HEMOG, ALB3, BMP3 ####[address] Lymphocytes/100 WBC Auto (Bld) 19.7 % Low 20.0-40.0 [facility] Comment on above: Performed By: #### H A1C2, HEMOG, ALB3, BMP3 ####[address] MCH Auto Entitic mass (RBC) 32.1 pg Normal 26.0-34.0 [facility] Comment on above: Performed By: #### H A1C2, HEMOG, ALB3, BMP3 ####[address] MCHC Auto mass conc (RBC) 34.2 % Normal 32.0-36.0 [facility] Comment on above: Performed By: #### H A1C2, HEMOG, ALB3, BMP3 ####[address] MCV Auto Entitic volume (RBC) 94.0 fL Normal 79.0-98.0 [facility] Comment on above: Performed By: #### H A1C2, HEMOG, ALB3, BMP3 ####[address] Monocytes Auto #/vol (Bld) 0.5 10*3/uL Normal 0.0-0.8 [facility] Comment on above: Performed By: #### H A1C2, HEMOG, ALB3, BMP3 ####[address] Monocytes/100 WBC Auto (Bld) 5.1 % Normal 2.0-10.0 [facility] Comment on above: Performed By: #### H A1C2, HEMOG, ALB3, BMP3 ####[address] Platelet mean volume Auto Entitic volume (Bld) 7.9 fL Normal 7.4-10.4 [facility] Comment on above: Performed By: #### H A1C2, HEMOG, ALB3, BMP3 ####[address] Platelets Auto #/vol (Bld) 248 10*3/uL Normal 140-440 [facility] Comment on above: Performed By: #### H A1C2, HEMOG, ALB3, BMP3 ####[address] RBC Auto #/vol (Bld) 3.40 10*6/uL Low 3.80-5.20 [facility] Comment on above: Performed By: #### H A1C2, HEMOG, ALB3, BMP3 ####[address] WBC Auto #/vol (Bld) 10.3 10*3/uL Normal 3.6-10.7 [facility] Comment on above: Performed By: #### H A1C2, HEMOG, ALB3, BMP3 ####[place] [address] [place], [place] Magnesiumon 04-10-2018 Magnesium mass conc 2.5 mg/dL High 1.6-2.3 [facility] Comment on above: Performed By: #### H A1C2, HEMOG, ALB3, BMP3 ####[place] [address] [place] Phosphoruson 04-10-2018 Phosphate mass conc 3.3 mg/dL Normal 2.5-4.5 [facility] Comment on above: Performed By: #### H A1C2, HEMOG, ALB3, BMP3 ####[place] [address] [place] Basic Metabolic Panelon 03-13 Anion gap 3 molar conc 14 Normal [facility] Comment on above: Performed By: #### H A1C2, HEMOG, ALB3, BMP3 ####[facility] [id number] [place], [place] Calcium mass conc 8.6 mg/dL Normal 8.4-10.4 [facility] Comment on above: Performed By: #### H A1C2, HEMOG, ALB3, BMP3 ####[place] [address] [place] [place] CO2 molar conc 20 mmol/L Low 22-30 [facility] Comment on above: Performed By: #### H A1C2, HEMOG, ALB3, BMP3 ####[facility] [id number] [place], [place] Glucose mass conc 210 mg/dL High 70-100 [facility] Comment on above: Performed By: #### H A1C2, HEMOG, ALB3, BMP3 ####[facility] [employer] [id number] [place], [place] Urea nitrogen mass conc 14 mg/dL Normal 7-20 [facility] Comment on above: Performed By: #### H A1C2, HEMOG, ALB3, BMP3 ####[place] [address] [place], [place] Creatinine mass conc 0.85 mg/dL Normal 0.52-1.25 [facility] Comment on above: Performed By: #### H A1C2, HEMOG, ALB3, BMP3 ####[place] [address] [place], [place] GFR/1.73 sq M predicted among blacks MDRD vol rate/area (S/P/Bld) mL/min/{1.73_m2} Normal >60 [facility] Comment on above: Performed By: #### H A1C2, HEMOG, ALB3, BMP3 ####[address] GFR/1.73 sq M predicted among non-blacks MDRD vol rate/area (S/P/Bld) mL/min/{1.73_m2} Normal >60 [facility] Comment on above: Result Comment: Sour ce- MDRD equation with creatinine calibration to IDMS(NKDEP) eGFR not recommended for drug dose adjustment Performed By: #### H A1C2, HEMOG, ALB3, BMP3 ####[address] Potassium molar conc 4.1 mmol/L Normal 3.5-5.1 [facility] Comment on above: Performed By: #### H A1C2, HEMOG, ALB3, BMP3 ####[facility] [employer] [id number] [place], [place] Sodium molar conc 138 mmol/L Normal 137-145 [facility] Comment on above: Performed By: #### H A1C2, HEMOG, ALB3, BMP3 ####[facility] [employer] [address] Chloride molar conc 104 mmol/L Normal 98-107 [facility] Comment on above: Performed By: #### H A1C2, HEMOG, ALB3, BMP3 ####[place] [address] [place], [place] Hemogram w/ Autodiffon 04-09 Abs Baso Cnt 0.0 10*3/uL Normal 0.0-0.2 [facility] Comment on above: Performed By: #### H A1C2, HEMOG, ALB3, BMP3 ####[address] Abs Neutrophile Cnt 12.0 10*3/uL High 1.8-7.0 [facility] Comment on above: Performed By: #### H A1C2, HEMOG, ALB3, BMP3 ####[address] Basophils/100 WBC Auto (Bld) 0.2 % Normal 0.0-2.0 [facility] Comment on above: Performed By: #### H A1C2, HEMOG, ALB3, BMP3 ####[address] Eosinophils Auto #/vol (Bld) 0.0 10*3/uL Normal 0.0-0.5 [facility] Comment on above: Performed By: #### H A1C2, HEMOG, ALB3, BMP3 ####[address] Eosinophils/100 WBC Auto (Bld) 0.0 % Low 1.0-6.0 [facility] Comment on above: Performed By: #### H A1C2, HEMOG, ALB3, BMP3 ####[address] Erythrocyte distribution width Auto Ratio (RBC) 13.3 % Normal 11.5-14.5 [facility] Comment on above: Performed By: #### H A1C2, HEMOG, ALB3, BMP3 ####[address] Granulocytes/100 WBC (Bld) 91.6 % High 40.0-80.0 [facility] Comment on above: Performed By: #### H A1C2, HEMOG, ALB3, BMP3 ####[address], [place] Hematocrit Auto Volume Fraction (Bld) 38.4 % Normal 35.0-47.0 [facility] Comment on above: Performed By: #### H A1C2, HEMOG, ALB3, BMP3 ####[address] Hemoglobin mass conc (Bld) 13.0 g/dL Normal 11.7-16.0 [facility] Comment on above: Performed By: #### H A1C2, HEMOG, ALB3, BMP3 ####[address] Lymphocytes Auto #/vol (Bld) 0.6 10*3/uL Low 1.0-4.3 [facility] Comment on above: Performed By: #### H A1C2, HEMOG, ALB3, BMP3 ####[address] Lymphocytes/100 WBC Auto (Bld) 4.8 % Low 20.0-40.0 [facility] Comment on above: Performed By: #### H A1C2, HEMOG, ALB3, BMP3 ####[address] MCH Auto Entitic mass (RBC) 31.8 pg Normal 26.0-34.0 [facility] Comment on above: Performed By: #### H A1C2, HEMOG, ALB3, BMP3 ####[address] MCHC Auto mass conc (RBC) 33.9 % Normal 32.0-36.0 [facility] Comment on above: Performed By: #### H A1C2, HEMOG, ALB3, BMP3 ####[address] MCV Auto Entitic volume (RBC) 93.7 fL Normal 79.0-98.0 [facility] Comment on above: Performed By: #### H A1C2, HEMOG, ALB3, BMP3 ####[address] Monocytes Auto #/vol (Bld) 0.5 10*3/uL Normal 0.0-0.8 [facility] Comment on above: Performed By: #### H A1C2, HEMOG, ALB3, BMP3 ####[place] [address] [place], [place] Monocytes/100 WBC Auto (Bld) 3.4 % Normal 2.0-10.0 [facility] Comment on above: Performed By: #### H A1C2, HEMOG, ALB3, BMP3 ####[place] [address] [place] Platelet mean volume Auto Entitic volume (Bld) 8.1 fL Normal 7.4-10.4 [facility] Comment on above: Performed By: #### H A1C2, HEMOG, ALB3, BMP3 ####[address] Platelets Auto #/vol (Bld) 299 10*3/uL Normal 140-440 [facility] Comment on above: Performed By: #### H A1C2, HEMOG, ALB3, BMP3 ####[place] [address] [place] RBC Auto #/vol (Bld) 4.09 10*6/uL Normal 3.80-5.20 [facility] Comment on above: Performed By: #### H A1C2, HEMOG, ALB3, BMP3 ####[place] [address] [place], [place] WBC Auto #/vol (Bld) 13.1 10*3/uL High 3.6-10.7 [facility] Comment on above: Performed By: #### H A1C2, HEMOG, ALB3, BMP3 ####[place] [address] [place], [place] Magnesiumon 04-09-2018 Magnesium mass conc 2.2 mg/dL Normal 1.6-2.3 [facility] Comment on above: Performed By: #### H A1C2, HEMOG, ALB3, BMP3 ####[facility] [place] [address] Phosphoruson 04-09-2018 Phosphate mass conc 2.3 mg/dL Low 2.5-4.5 [facility] Comment on above: Performed By: #### H A1C2, HEMOG, ALB3, BMP3 ####[facility] [place] [address] RF UGI w/o KUB w/ or w/o Del ay Flmon 04-09-2018 RF UGI w/o KUB w/ or w/o Delay Flm Patient Name: AMANDA GRUBBS Fluoroscopy Exam Date/Time 04/09/2018 08:17:29 EDT Exam RF UGI w/o KUB and w/ or w/o Delay Flm Ordering Physician MD TRUONG NICHOLAS Accession Number [id number] [facility] Codes 69883 () Reason For Exam bariatric surgery. gastrograffin. [...] Transcribed Date and Time: 04/09/2018 8:37 Normal [facility] Basic Metabolic Panelon 10-2 Calcium mass conc 8.8 mg/dL Normal 8.4-10.4 [facility] Comment on above: Performed By: #### H EMDF, MG3, BMP3, PHOS3, ICA ####[place] [address] [place] [address] Anion gap 3 molar conc 12 Normal [facility] Comment on above: Performed By: #### H EMDF, MG3, BMP3, PHOS3, ICA ####[place] [address] [place] [address] CO2 molar conc 23 mmol/L Normal 22-30 [facility] Comment on above: Performed By: #### H EMDF, MG3, BMP3, PHOS3, ICA ####[place] [address] [place] [address] Glucose mass conc 201 mg/dL High 70-100 [facility] Comment on above: Performed By: #### H EMDF, MG3, BMP3, PHOS3, ICA ####[place] [address] [place] [address] Urea nitrogen mass conc 13 mg/dL Normal 7-20 [facility] Comment on above: Performed By: #### H EMDF, MG3, BMP3, PHOS3, ICA ####[address] [address] Creatinine mass conc 0.96 mg/dL Normal 0.52-1.25 [facility] Comment on above: Performed By: #### H EMDF, MG3, BMP3, PHOS3, ICA ####[place] [address] [place] [address] GFR/1.73 sq M predicted among blacks MDRD vol rate/area (S/P/Bld) mL/min/{1.73_m2} Normal >60 [facility] Comment on above: Performed By: #### H EMDF, MG3, BMP3, PHOS3, ICA ####[place] [address] [place] [address] GFR/1.73 sq M predicted among non-blacks MDRD vol rate/area (S/P/Bld) mL/min/{1.73_m2} Normal >60 [facility] Comment on above: Result Comment: Sour ce- MDRD equation with creatinine calibration to IDMS(NKDEP) eGFR not recommended for drug dose adjustment Performed By: #### H EMDF, MG3, BMP3, PHOS3, ICA ####[address] Chloride molar conc 102 mmol/L Normal 98-107 [facility] Comment on above: Performed By: #### H EMDF, MG3, BMP3, PHOS3, ICA ####[address] Potassium molar conc 3.9 mmol/L Normal 3.5-5.1 [facility] Comment on above: Performed By: #### H EMDF, MG3, BMP3, PHOS3, ICA ####[address] Sodium molar conc 138 mmol/L Normal 137-145 [facility] Comment on above: Performed By: #### H EMDF, MG3, BMP3, PHOS3, ICA ####[address] Calcium,Ionizedon 04-08-2018 Ionized Ca,Measured 4.30 mg/dL Normal 4.30-5.20 [facility] Comment on above: Performed By: #### H A1C2, HEMOG, ALB3, BMP3 ####[address] pH, Ionized Calcium 7.29 Low 7.31-7.46 [facility] Comment on above: Performed By: #### H A1C2, HEMOG, ALB3, BMP3 ####[address] Hemogram w/ Autodiffon 04-08 Abs Baso Cnt 0.0 10*3/uL Normal 0.0-0.2 [facility] Comment on above: Performed By: #### H EMDF, MG3, BMP3, PHOS3, ICA ####[place] [address] [place] [address] Abs Neutrophile Cnt 10.7 10*3/uL High 1.8-7.0 [facility] Comment on above: Performed By: #### H EMDF, MG3, BMP3, PHOS3, ICA ####[address] [address] Basophils/100 WBC Auto (Bld) 0.1 % Normal 0.0-2.0 [facility] Comment on above: Performed By: #### H EMDF, MG3, BMP3, PHOS3, ICA ####[address] [address] Eosinophils Auto #/vol (Bld) 0.0 10*3/uL Normal 0.0-0.5 [facility] Comment on above: Performed By: #### H EMDF, MG3, BMP3, PHOS3, ICA ####[address] [address] Eosinophils/100 WBC Auto (Bld) 0.1 % Low 1.0-6.0 [facility] Comment on above: Performed By: #### H EMDF, MG3, BMP3, PHOS3, ICA ####[address] [address] Erythrocyte distribution width Auto Ratio (RBC) 13.3 % Normal 11.5-14.5 [facility] Comment on above: Performed By: #### H EMDF, MG3, BMP3, PHOS3, ICA ####[address] [address] Granulocytes/100 WBC (Bld) 88.5 % High 40.0-80.0 [facility] Comment on above: Performed By: #### H EMDF, MG3, BMP3, PHOS3, ICA ####[address] [address] Hematocrit Auto Volume Fraction (Bld) 41.9 % Normal 35.0-47.0 [facility] Comment on above: Performed By: #### H EMDF, MG3, BMP3, PHOS3, ICA ####[address] Hemoglobin mass conc (Bld) 14.0 g/dL Normal 11.7-16.0 [facility] Comment on above: Performed By: #### H EMDF, MG3, BMP3, PHOS3, ICA ####[address] Lymphocytes Auto #/vol (Bld) 1.1 10*3/uL Normal 1.0-4.3 [facility] Comment on above: Performed By: #### H EMDF, MG3, BMP3, PHOS3, ICA ####[address] Lymphocytes/100 WBC Auto (Bld) 9.2 % Low 20.0-40.0 [facility] Comment on above: Performed By: #### H EMDF, MG3, BMP3, PHOS3, ICA ####[address] MCH Auto Entitic mass (RBC) 31.5 pg Normal 26.0-34.0 [facility] Comment on above: Performed By: #### H EMDF, MG3, BMP3, PHOS3, ICA ####[address] [address] MCHC Auto mass conc (RBC) 33.4 % Normal 32.0-36.0 [facility] Comment on above: Performed By: #### H EMDF, MG3, BMP3, PHOS3, ICA ####[address] MCV Auto Entitic volume (RBC) 94.2 fL Normal 79.0-98.0 [facility] Comment on above: Performed By: #### H EMDF, MG3, BMP3, PHOS3, ICA ####[address] Monocytes Auto #/vol (Bld) 0.3 10*3/uL Normal 0.0-0.8 [facility] Comment on above: Performed By: #### H EMDF, MG3, BMP3, PHOS3, ICA ####[id number] [place], [place] Monocytes/100 WBC Auto (Bld) 2.1 % Normal 2.0-10.0 [facility] Comment on above: Performed By: #### H EMDF, MG3, BMP3, PHOS3, ICA ####[address] Platelet mean volume Auto Entitic volume (Bld) 7.8 fL Normal 7.4-10.4 [facility] Comment on above: Performed By: #### H EMDF, MG3, BMP3, PHOS3, ICA ####[address] Platelets Auto #/vol (Bld) 293 10*3/uL Normal 140-440 [facility] Comment on above: Performed By: #### H EMDF, MG3, BMP3, PHOS3, ICA ####[address] RBC Auto #/vol (Bld) 4.45 10*6/uL Normal 3.80-5.20 [facility] Comment on above: Performed By: #### H EMDF, MG3, BMP3, PHOS3, ICA ####[address] WBC Auto #/vol (Bld) 12.1 10*3/uL High 3.6-10.7 [facility] Comment on above: Performed By: #### H EMDF, MG3, BMP3, PHOS3, ICA ####[address] Magnesiumon 04-08-2018 Magnesium mass conc 2.5 mg/dL High 1.6-2.3 [facility] Comment on above: Performed By: #### H EMDF, MG3, BMP3, PHOS3, ICA ####[address] [id number] Phosphoruson 04-08-2018 Phosphate mass conc 4.5 mg/dL Normal 2.5-4.5 [facility] Comment on above: Performed By: #### H EMDF, MG3, BMP3, PHOS3, ICA ####[facility] [id number] [place] [address] Surgical Pathologyon 018 Surgical Pathology [id number] [facility] PATHOLOGY AND LABORATORY MEDICINE [address] [place] [address] FINAL SURGICAL PATHOLOGY REPORT NAM E: AMANDA GRUBBS .O.B.: 1970 47 Y F BILLING NO.: [id number] PROCEDURE 04/08/2018 DATE:SURGEON: ROLAN [...] theirperformance characteristics determined by the clinical laboratories [facility]. They have not been cleared by the [...] false negativity on decalcified specimens.Professional Performing Location: [address] [address]. DEPARTMENT OF PATHOLOGY AND LABORATORY MEDICINE [place], [place] [address] Normal [facility] Basic Metabolic Panelon 10-2 Anion gap 3 molar conc 10 Normal [facility] Comment on above: Performed By: #### B MP3 ####[id number] [place] [address] Calcium mass conc 10.0 mg/dL Normal 8.4-10.4 [facility] Comment on above: Performed By: #### B MP3 ####[facility] [id number] CO2 molar conc 26 mmol/L Normal 22-30 [facility] Comment on above: Performed By: #### B MP3 ####[facility] [id number] [facility] [address] Glucose mass conc 89 mg/dL Normal 70-100 [facility] Comment on above: Performed By: #### B MP3 ####[facility] [id number] [facility] [place] Urea nitrogen mass conc 18 mg/dL Normal 7-20 [facility] Comment on above: Performed By: #### B MP3 ####[facility] [id number] [place] Creatinine mass conc 0.82 mg/dL Normal 0.52-1.25 [facility] Comment on above: Performed By: #### B MP3 ####[facility] [id number] [facility] [address] GFR/1.73 sq M predicted among blacks MDRD vol rate/area (S/P/Bld) mL/min/{1.73_m2} Normal >60 [facility] Comment on above: Performed By: #### B MP3 ####[facility] [id number] [facility] [address] GFR/1.73 sq M predicted among non-blacks MDRD vol rate/area (S/P/Bld) mL/min/{1.73_m2} Normal >60 [facility] Comment on above: Result Comment: Sour ce- MDRD equation with creatinine calibration to IDMS(NKDEP) eGFR not recommended for drug dose adjustment Performed By: #### B MP3 ####[facility] [id number] [facility] [address] Chloride molar conc 103 mmol/L Normal 98-107 [facility] Comment on above: Performed By: #### B MP3 ####[address] [place] [address] Potassium molar conc 4.9 mmol/L Normal 3.5-5.1 [facility] Comment on above: Performed By: #### B MP3 ####[address] [place] [address] Sodium molar conc 139 mmol/L Normal 137-145 [facility] Comment on above: Performed By: #### B MP3 ####[address] [place], [place] Albumin, Serumon 03-14-2018 Albumin mass conc 4.7 g/dL Normal 3.5-5.0 [facility] Comment on above: Performed By: #### H A1C2, HEMOG, ALB3, BMP3 ####[address] Basic Metabolic Panelon Anion gap 3 molar conc 11 Normal [facility] Comment on above: Performed By: #### H A1C2, HEMOG, ALB3, BMP3 ####[address] [place], [place] Calcium mass conc 10.1 mg/dL Normal 8.4-10.4 [facility] Comment on above: Performed By: #### H A1C2, HEMOG, ALB3, BMP3 ####[address] [place], [place] CO2 molar conc 27 mmol/L Normal 22-30 [facility] Comment on above: Performed By: #### H A1C2, HEMOG, ALB3, BMP3 ####[address] [place], [place] Glucose mass conc 90 mg/dL Normal 70-100 [facility] Comment on above: Performed By: #### H A1C2, HEMOG, ALB3, BMP3 ####[address] [place], [place] Urea nitrogen mass conc 12 mg/dL Normal 7-20 [facility] Comment on above: Performed By: #### H A1C2, HEMOG, ALB3, BMP3 ####[address] [place], [place] Creatinine mass conc 0.83 mg/dL Normal 0.52-1.25 [facility] Comment on above: Performed By: #### H A1C2, HEMOG, ALB3, BMP3 ####[facility] [place] [address] GFR/1.73 sq M predicted among blacks MDRD vol rate/area (S/P/Bld) mL/min/{1.73_m2} Normal >60 [facility] Comment on above: Performed By: #### H A1C2, HEMOG, ALB3, BMP3 ####[address] [place], [place] GFR/1.73 sq M predicted among non-blacks MDRD vol rate/area (S/P/Bld) mL/min/{1.73_m2} Normal >60 [facility] Comment on above: Result Comment: Sour ce- MDRD equation with creatinine calibration to IDMS(NKDEP) eGFR not recommended for drug dose adjustment Performed By: #### H A1C2, HEMOG, ALB3, BMP3 ####[id number] [place], [place] Chloride molar conc 102 mmol/L Normal 98-107 [facility] Comment on above: Performed By: #### H A1C2, HEMOG, ALB3, BMP3 ####[address] [place], [place] Potassium molar conc 4.7 mmol/L Normal 3.5-5.1 [facility] Comment on above: Performed By: #### H A1C2, HEMOG, ALB3, BMP3 ####[address] [place] [address] Sodium molar conc 140 mmol/L Normal 137-145 [facility] Comment on above: Performed By: #### H A1C2, HEMOG, ALB3, BMP3 ####[address] [place] [address] Hemoglobin A1Con 03-14-2018 Glucose mass conc 120 mg/dL Normal [facility] Comment on above: Performed By: #### H A1C2, HEMOG, ALB3, BMP3 ####[address] Hemoglobin A1c/Hemoglobin.total mass fraction (Bld) 5.8 % High 4.0-5.7 [facility] Comment on above: Result Comment: --Hg bA1C levels may not be accurate in patients who haverenal disease, received recent blood transfusions, are anemic,or who have dyshemoglobinemia. Performed By: #### H A1C2, HEMOG, ALB3, BMP3 ####[address] Hemogramon 03-14-2018 Erythrocyte distribution width Auto Ratio (RBC) 13.3 % Normal 11.5-14.5 [facility] Comment on above: Performed By: #### H A1C2, HEMOG, ALB3, BMP3 ####[address] Hematocrit Auto Volume Fraction (Bld) 38.9 % Normal 35.0-47.0 [facility] Comment on above: Performed By: #### H A1C2, HEMOG, ALB3, BMP3 ####[address] Hemoglobin mass conc (Bld) 13.2 g/dL Normal 11.7-16.0 [facility] Comment on above: Performed By: #### H A1C2, HEMOG, ALB3, BMP3 ####[address] MCH Auto Entitic mass (RBC) 31.9 pg Normal 26.0-34.0 [facility] Comment on above: Performed By: #### H A1C2, HEMOG, ALB3, BMP3 ####[address] MCHC Auto mass conc (RBC) 34.0 % Normal 32.0-36.0 [facility] Comment on above: Performed By: #### H A1C2, HEMOG, ALB3, BMP3 ####[facility] [id number] [place], [place] MCV Auto Entitic volume (RBC) 93.9 fL Normal 79.0-98.0 [facility] Comment on above: Performed By: #### H A1C2, HEMOG, ALB3, BMP3 ####[id number] [place], [place] Platelet mean volume Auto Entitic volume (Bld) 7.9 fL Normal 7.4-10.4 [facility] Comment on above: Performed By: #### H A1C2, HEMOG, ALB3, BMP3 ####[address] [place], [place] Platelets Auto #/vol (Bld) 304 10*3/uL Normal 140-440 [facility] Comment on above: Performed By: #### H A1C2, HEMOG, ALB3, BMP3 ####[address] RBC Auto #/vol (Bld) 4.15 10*6/uL Normal 3.80-5.20 [facility] Comment on above: Performed By: #### H A1C2, HEMOG, ALB3, BMP3 ####[id number] [place], [place] WBC Auto #/vol (Bld) 6.7 10*3/uL Normal 3.6-10.7 [facility] Comment on above: Performed By: #### H A1C2, HEMOG, ALB3, BMP3 ####[address] Surgical Pathologyon 018 Surgical Pathology [id number] [facility] PATHOLOGY AND LABORATORY MEDICINE [address] [place] [address] FINAL SURGICAL PATHOLOGY REPORT NAM E: AMANDA GRUBBS .O.B.: 1970 47 Y [place] NO.: [id number]: [id number] PROCEDURE 11/27/2017 DATE:SURGEON: ROLAN JORDAN M.D. [...] cm each.Submitted in toto. (2 ns, 1) RADHA/JAFDisclaimer: The following statement applies to allimmunohistochemistry, in situ hybridization, molecular studies, andimmunofluorescence testing.The use of one or more reagents in the above tests is regulated as ananalyte specific reagent (ASR). These tests were developed and theirperformance characteristics determined by the clinical laboratories [facility]. They have not been cleared by the [...] false negativity on decalcified specimens.Professional Performing Location: [place] [address]. DEPARTMENT OF PATHOLOGY AND LABORATORY MEDICINE [place], [place] [address] Normal [facility] Vital Signs Date Time Vital Sign Value Performing Clinician Facility 03-05-2025 08:41-0400 Body height 160.[address] Franky Pearson DO Work Phone: [facility] 03-05-2025 08:41-0400 Body mass index (BMI) [Ratio] 29.7 kg/m2 Dr. Franky Pearson DO Work Phone: [facility] 03-05-2025 08:41-0400 Body temperature 98.2 [degF] Dr. Franky Pearson DO Work Phone: [facility] 03-05-2025 08:41-0400 Body weight 76.[address] Franky Pearson DO Work Phone: [facility] 03-05-2025 08:41-0400 Diastolic blood pressure 83 mm[Hg] Dr. Franky Pearson DO Work Phone: [facility] 03-05-2025 08:41-0400 Heart rate 80 /min Dr. Franky Pearson DO Work Phone: [facility] 03-05-2025 08:41-0400 Respiratory rate 16 /min Dr. Franky Pearson DO Work Phone: [facility] 03-05-2025 08:41-0400 SaO2% (BldA) [Mass fraction] 97 % Dr. Franky Pearson DO Work Phone: [facility] 03-05-2025 08:41-0400 Systolic blood pressure 123 mm[Hg] Dr. Franky Pearson DO Work Phone: [facility] 02-06-2025 08:21-0400 Body height 160.[address] Franky Pearson DO Work Phone: [facility] 02-06-2025 08:21-0400 Body mass index (BMI) [Ratio] 29.9 kg/m2 Dr. Franky Pearson DO Work Phone: [facility] 02-06-2025 08:21-0400 Body weight 76.[address] Franky Pearson DO Work Phone: [facility] 02-02-2025 13:41-0400 Body temperature 98.3 [degF] Dr. Franky Pearson DO Work Phone: [facility] 02-02-2025 13:41-0400 Diastolic blood pressure 62 mm[Hg] Dr. Franky Pearson DO Work Phone: [facility] 02-02-2025 13:41-0400 Heart rate 81 /min Dr. Franky Pearson DO Work Phone: [facility] 02-02-2025 13:41-0400 Respiratory rate 16 /min Dr. Franky Pearson DO Work Phone: [facility] 02-02-2025 13:41-0400 SaO2% (BldA) [Mass fraction] 98 % Dr. Franky Pearson DO Work Phone: [facility] 02-02-2025 13:41-0400 Systolic blood pressure 122 mm[Hg] Dr. Franky Pearson DO Work Phone: [facility] 01-29-2025 09:18-0400 Body height 160.[address] Franky Pearson DO Work Phone: [facility] 01-29-2025 09:18-0400 Body mass index (BMI) [Ratio] 29.9 kg/m2 Dr. Franky Pearson DO Work Phone: [facility] 01-29-2025 09:18-0400 Body weight 76.[address] Franky Pearson DO Work Phone: [facility] 01-29-2025 09:18-0400 Diastolic blood pressure 72 mm[Hg] Dr. Franky Pearson DO Work Phone: [facility] 01-29-2025 09:18-0400 Heart rate 90 /min Dr. Franky Pearson DO Work Phone: [facility] 01-29-2025 09:18-0400 Respiratory rate 16 /min Dr. Franky Pearson DO Work Phone: [facility] 01-29-2025 09:18-0400 SaO2% (BldA) [Mass fraction] 98 % Dr. Franky Pearson DO Work Phone: [facility] 01-29-2025 09:18-0400 Systolic blood pressure 116 mm[Hg] Dr. Franky Pearson DO Work Phone: [facility] 01-16-2025 07:25-0400 Body temperature 98.1 [degF] Dr. Franky Pearson DO Work Phone: [facility] 01-16-2025 07:25-0400 Diastolic blood pressure 65 mm[Hg] Dr. Franky Pearson DO Work Phone: [facility] 01-16-2025 07:25-0400 Heart rate 72 /min Dr. Franky Pearson DO Work Phone: [facility] 01-16-2025 07:25-0400 Respiratory rate 16 /min Dr. Franky Pearson DO Work Phone: [facility] 01-16-2025 07:25-0400 SaO2% (BldA) [Mass fraction] 100 % Dr. Franky Pearson DO Work Phone: [facility] 01-16-2025 07:25-0400 Systolic blood pressure 97 mm[Hg] Dr. Franky Pearson DO Work Phone: [facility] 01-16-2025 05:54-0400 Body height 160.[address] Franky Pearson DO Work Phone: [facility] 01-16-2025 05:54-0400 Body mass index (BMI) [Ratio] 28.9 kg/m2 Dr. Franky Pearson DO Work Phone: [facility] 01-16-2025 05:54-0400 Body weight [address] Franky Pearson DO Work Phone: [facility] 11-26-2024 09:57-0400 Body height 160.[address] Franky Pearson DO Work Phone: [facility] 11-26-2024 09:57-0400 Body mass index (BMI) [Ratio] 29 kg/m2 Dr. Franky Pearson DO Work Phone: [facility] 11-26-2024 09:57-0400 Body temperature 98.5 [degF] Dr. Franky Pearson DO Work Phone: [facility] 11-26-2024 09:57-0400 Body weight 74.[address] Franky Pearson DO Work Phone: [facility] 11-26-2024 09:57-0400 Diastolic blood pressure 93 mm[Hg] Dr. Franky Pearson DO Work Phone: [facility] 11-26-2024 09:57-0400 Heart rate 85 /min Dr. Franky Pearson DO Work Phone: [facility] 11-26-2024 09:57-0400 Respiratory rate 16 /min Dr. Franky Pearson DO Work Phone: [facility] 11-26-2024 09:57-0400 SaO2% (BldA) [Mass fraction] 97 % Dr. Franky Pearson DO Work Phone: [facility] 11-26-2024 09:57-0400 Systolic blood pressure 139 mm[Hg] Dr. Franky Pearson DO Work Phone: [facility] 09-25-2024 10:43-0400 Body mass index (BMI) [Ratio] 29 kg/m2 Dr. Franky Pearson DO Work Phone: [facility] 09-25-2024 10:43-0400 Body weight 74.[address] Franky Pearson DO Work Phone: [facility] 09-25-2024 10:43-0400 Diastolic blood pressure 78 mm[Hg] Dr. Franky Pearson DO Work Phone: [facility] 09-25-2024 10:43-0400 Systolic blood pressure 118 mm[Hg] Dr. Franky Pearson DO Work Phone: [facility] 08-19-2024 07:30-0400 Body mass index (BMI) [Ratio] 29.2 kg/m2 Dr. Franky Pearson DO Work Phone: [facility] 08-19-2024 07:30-0400 Body temperature 97.5 [degF] Dr. Franky Pearson DO Work Phone: [facility] 08-19-2024 07:30-0400 Body weight 74.[address] Franky Pearson DO Work Phone: [facility] 08-19-2024 07:30-0400 Diastolic blood pressure 86 mm[Hg] Dr. Franky Pearson DO Work Phone: [facility] 08-19-2024 07:30-0400 Heart rate 84 /min Dr. Franky Pearson DO Work Phone: [facility] 08-19-2024 07:30-0400 Respiratory rate 18 /min Dr. Franky Pearson DO Work Phone: [facility] 08-19-2024 07:30-0400 SaO2% (BldA) [Mass fraction] 98 % Dr. Franky Pearson DO Work Phone: [facility] 08-19-2024 07:30-0400 Systolic blood pressure 126 mm[Hg] Dr. Franky Pearson DO Work Phone: [facility] 08-13-2024 08:34-0500 Body temperature 97.6 [degF] Dr. Franky Pearson DO Work Phone: [facility] 08-13-2024 08:34-0500 Diastolic blood pressure 60 mm[Hg] Dr. Franky Pearson DO Work Phone: [facility] 08-13-2024 08:34-0500 Heart rate 83 /min Dr. Franky Pearson DO Work Phone: [facility] 08-13-2024 08:34-0500 SaO2% (BldA) [Mass fraction] 99 % Dr. Franky Pearson DO Work Phone: [facility] 08-13-2024 08:34-0500 Systolic blood pressure 120 mm[Hg] Dr. Franky Pearson DO Work Phone: [facility] 05-13-2023 10:41-0500 Body height 160.[address] Yessi Mcqueen Work Phone: [facility] 05-13-2023 10:41-0500 Body temperature 98 [degF] Dr. Yessi Mcqueen Work Phone: [facility] 05-13-2023 10:41-0500 Diastolic blood pressure 88 mm[Hg] Dr. Yessi Mcqueen Work Phone: [facility] 05-13-2023 10:41-0500 Heart rate 81 /min Dr. Yessi Mcqueen Work Phone: [facility] 05-13-2023 10:41-0500 Respiratory rate 17 /min Dr. Yessi Mcqueen Work Phone: [facility] 05-13-2023 10:41-0500 SaO2% (BldA) [Mass fraction] 96 % Dr. Yessi Mcqueen Work Phone: [facility] 05-13-2023 10:41-0500 Systolic blood pressure 126 mm[Hg] Dr. Yessi Mcqueen Work Phone: [facility] 08-26-2022 19:04-0400 Body temperature 97.88 [degF] LINDA MARTINEZ MD [facility] 08-26-2022 18:57-0400 Body temperature 97.88 [degF] LINDA MARTINEZ MD [facility] 08-26-2022 18:30-0400 Diastolic Blood Pressure Non-Invasive 72 1 LINDA MARTINEZ MD [facility] 08-26-2022 18:30-0400 Heart rate 80 /min LINDA MARTINEZ MD [facility] 08-26-2022 18:30-0400 Respiratory rate 13 /min LINDA MARTINEZ MD [facility] 08-26-2022 18:30-0400 Systolic Blood Pressure Non-Invasive 130 1 LINDA MARTINEZ MD [facility] 08-26-2022 18:00-0400 Diastolic Blood Pressure Non-Invasive 69 1 LINDA MARTINEZ MD [facility] 08-26-2022 18:00-0400 Heart rate 81 /min LINDA MARTINEZ MD [facility] 08-26-2022 18:00-0400 Respiratory rate 14 /min LINDA MARTINEZ MD [facility] 08-26-2022 18:00-0400 Systolic Blood Pressure Non-Invasive 127 1 LINDA MARTINEZ MD [facility] 08-26-2022 17:30-0400 Diastolic Blood Pressure Non-Invasive 72 1 LINDA MARTINEZ MD [facility] 08-26-2022 17:30-0400 Heart rate 80 /min LINDA MARTINEZ MD [facility] 08-26-2022 17:30-0400 Respiratory rate 13 /min LINDA MARTINEZ MD [facility] 08-26-2022 17:30-0400 Systolic Blood Pressure Non-Invasive 130 1 LINDA MARTINEZ MD [facility] 08-26-2022 16:07-0400 Body temperature 96.62 [degF] LINDA MARTINEZ MD [facility] 08-18-2022 14:03-0500 Body height 160.7 cm Shayna Andrade MD Work Phone: [facility] 08-18-2022 14:03-0500 Body mass index (BMI) [Ratio] 31.74 kg/m2 Shayna Andrade MD Work Phone: [facility] 08-18-2022 14:03-0500 Body weight 81.92 kg Shayna Andrade MD Work Phone: [facility] 08-18-2022 14:03-0500 Diastolic blood pressure 79 mm[Hg] Shayna Andrade MD Work Phone: [facility] 08-18-2022 14:03-0500 Heart rate 94 /min Shayna Andrade MD Work Phone: [facility] 08-18-2022 14:03-0500 Systolic blood pressure 121 mm[Hg] Shayna Andrade MD Work Phone: [facility] 07-07-2022 10:09-0500 Body height 160.7 cm Shayna Andrade MD Work Phone: [facility] 07-07-2022 10:09-0500 Body mass index (BMI) [Ratio] 32.3 kg/m2 Shayna Andrade MD Work Phone: [facility] 07-07-2022 10:09-0500 Body weight 83.37 kg Shayna Andrade MD Work Phone: [facility] 07-07-2022 10:09-0500 Diastolic blood pressure 82 mm[Hg] Shayna Andrade MD Work Phone: [facility] 07-07-2022 10:09-0500 Heart rate 84 /min Shayna Andrade MD Work Phone: [facility] 07-07-2022 10:09-0500 Respiratory rate 14 /min Shayna Andrade MD Work Phone: [facility] 07-07-2022 10:09-0500 Systolic blood pressure 122 mm[Hg] Shayna Andrade MD Work Phone: [facility] 03-03-2022 09:25-0400 Diastolic Blood Pressure NBP [address] ROBSON PUGH MD [facility] 03-03-2022 09:25-0400 Heart rate 80 /min DR ROBSON PUGH MD [facility] 03-03-2022 09:25-0400 Respiratory rate 14 /min DR ROBSON PUGH MD [facility] 03-03-2022 09:25-0400 Systolic Blood Pressure NBP [address] ROBSON PUGH MD [facility] 03-03-2022 09:20-0400 Diastolic Blood Pressure NBP [address] ROBSON PUGH MD [facility] 03-03-2022 09:20-0400 Heart rate 73 /min DR ROBSON PUGH MD [facility] 03-03-2022 09:20-0400 Respiratory rate 21 /min DR ROBSON PUGH MD [facility] 03-03-2022 09:20-0400 Systolic Blood Pressure NBP [address] ROBSON PUGH MD [facility] 03-03-2022 09:16-0400 Diastolic Blood Pressure NBP [address] ROBSON PUGH MD [facility] 03-03-2022 09:16-0400 Heart rate 78 /min DR ROBSON PUGH MD [facility] 03-03-2022 09:16-0400 Respiratory rate 15 /min DR ROBSON PUGH MD [facility] 03-03-2022 09:16-0400 Systolic Blood Pressure NBP [address] ROBSON PUGH MD [facility] 03-03-2022 07:55-0400 Body height 162.[address] ROBSON PUGH MD [facility] 03-03-2022 07:55-0400 Body temperature 98.06 [degF] DR ROBSON PUGH MD [facility] 03-03-2022 07:55-0400 Body weight 79.[address] ROBSON PUGH MD [facility] 03-03-2022 07:55-0400 Body weight 30.07 kg/m2 DR ROBSON PUGH MD [facility] 05-22-2021 05:00-0500 Diastolic blood pressure 79 mm[Hg] RUY RIVERA MD [facility] 05-22-2021 05:00-0500 Heart rate 70 /min RUY RIVERA MD [facility] 05-22-2021 05:00-0500 Mean blood pressure 91 mm[Hg] RUY RIVERA MD [facility] 05-22-2021 05:00-0500 Reason For Taking VItal Signs RUY RIVERA MD [facility] 05-22-2021 05:00-0500 Respiratory rate 14 /min RUY RIVERA MD [facility] 05-22-2021 05:00-0500 Systolic blood pressure 114 mm[Hg] RUY RIVERA MD [facility] 05-22-2021 04:24-0500 Body temperature 98.06 [degF] RUY RIVERA MD [facility] 05-22-2021 04:24-0500 Diastolic blood pressure 97 mm[Hg] RUY RIVERA MD [facility] 05-22-2021 04:24-0500 Heart rate 81 /min RUY RIVERA MD [facility] 05-22-2021 04:24-0500 Mean blood pressure 108 mm[Hg] RUY RIVERA MD [facility] 05-22-2021 04:24-0500 Respiratory rate 16 /min RUY RIVERA MD [facility] 05-22-2021 04:24-0500 Systolic blood pressure 130 mm[Hg] RUY RIVERA MD [facility] Encounters Encounter Date Encounter Type Care Provider Facility Start: 05-15-2025 ambulatory Franky Pearson Facility: [facility] Start: 03-05-[address] Franky Pearson DO -Sleep Lab Work Phone: Start: 03-05-2025 End: 03-05-2025 Patient encounter procedure Kiersten PEREZ -[facility] Work Phone: Start: 03-05-2025 End: 03-05-[address] Franky Pearson DO Work Phone: -[facility] Start: 03-05-2025 End: 03-05-2025 ambulatory Franky Pearson Facility:[facility] Start: 02-19-2025 End: 02-19-[address] Franky Pearson DO Work Phone: [facility] Start: 02-19-2025 End: 02-19-[address] Franky Pearson DO -[facility] Work Phone: Start: 02-19-2025 End: 02-19-2025 ambulatory Franky Pearson Facility:[facility] Start: 02-06-2025 End: 02-06-[address] Allan Coleman MD -[facility] Start: 02-06-2025 End: 02-06-[address] Franky Pearson DO Work Phone: -[facility] Start: 02-02-2025 End: 02-02-2025 Patient encounter procedure Angus Villalobos MS [facility] Work Phone: Start: 02-02-2025 End: 02-02-[address] Franky Pearson DO Work Phone: [facility] Start: 02-02-2025 End: 02-02-2025 ambulatory Angus HURT Facility:[facility] Start: 01-29-2025 End: 01-29-2025 Patient encounter procedure Kiersten PEREZ -[facility] Work Phone: Start: 01-29-2025 End: 01-29-[address] Franky Pearson DO Work Phone: -[facility] Start: 01-16-2025 ambulatory Franky Pearson Facility: [facility] Start: 01-16-2025 Non-patient / Non-visit Rock Joyner nd DO -[facility] Start: 01-16-2025 End: 01-16-2025 Admission to same day surgery center Rock Pineda DO -Endoscopy Work Phone: Start: 01-16-2025 End: 01-16-[address] Franky Pearson DO Work Phone: -Endoscopy Start: 01-05-2025 End: 01-05-[address] Yessi Mcqueen DC -[facility] Work Phone: Start: 01-05-2025 End: 01-05-[address] Franky Pearson DO Work Phone: -[facility] Start: 12-18-2024 End: 12-18-[address] Yessi Mcqueen DC -[facility] Work Phone: Start: 12-18-2024 End: 12-18-[address] Franky Pearson DO Work Phone: -[facility] Start: 11-26-2024 End: 11-26-2024 Patient encounter procedure Kiersten PEREZ -[facility] Work Phone: Start: 11-26-2024 End: 11-26-[address] Franky Pearson DO Work Phone: [facility] Work Phone: Start: 09-25-2024 End: 09-25-[address] Yessi Mcqueen DC -[facility] Work Phone: Start: 09-25-2024 End: 09-25-2024 ambulatory Yessi Mcqueen Facility:[facility] Start: 08-19-2024 End: 08-19-2024 Patient encounter procedure LACEY Lyman -[facility] Work Phone: Start: 08-19-2024 End: 08-19-2024 ambulatory Moon Lyman Facility:[facility] Start: 08-13-2024 End: 08-13-2024 Patient encounter procedure Jose M Carmonadarrin ACID LOADER-C [facility] Work Phone: Start: 08-13-2024 End: 08-13-2024 ambulatory Franky Pearson Facility:[facility] Start: 07-23-2024 End: 07-23-2024 ambulatory Franky Pearson Facility:[facility] Start: 07-01-2024 End: 07-01-2024 ambulatory Franky Pearson Facility:[facility] Start: 06-30-2024 End: 06-30-2024 ambulatory Rolan Valdes NP Facility:[facility] Start: 06-27-2024 End: 06-27-2024 ambulatory Hans HURT Facility:[facility] Start: 06-13-2024 ambulatory Franky Pearson Facility: [facility] Start: 06-13-2024 End: 06-13-2024 ambulatory Franky Pearson Facility:[facility] Start: 05-13-2024 End: 05-13-2024 ambulatory Franky Pearson Facility:[facility] Start: 05-06-2024 ambulatory Franky Pearson Facility: [facility] Start: 05-06-2024 End: 05-06-2024 ambulatory Franky Pearson Facility:[facility] Start: 05-05-2024 End: 05-05-2024 ambulatory Franky Pearson Facility:[facility] Start: 04-17-2024 End: 04-17-2024 ambulatory Hans HURT Facility:[facility] Start: 04-15-2024 ambulatory Criselda Muñoz Facility :[facility] Start: 09-12-2023 End: 09-12-[address] Allan Coleman Work Phone: [facility] Work Phone: Start: 09-12-2023 End: 09-12-[address] Allan Coleman Work Phone: [facility]-Laboratory, [facility] Start: 07-26-2023 End: 07-26-2023 ambulatory ACID LOADER-C Rolan Valdes ACID LOADER Work Phone: [facility] Work Phone: Start: 07-26-2023 End: 07-26-2023 Patient encounter procedure ACID LOADER-C Rolan Valdes ACID LOADER Work Phone: [facility]-Cat Scan, [facility] Work Phone: Start: 07-24-2023 End: 07-24-2023 ambulatory ACID LOADER-C Rolan Valdes ACID LOADER Work Phone: [facility] Work Phone: Start: 07-24-2023 End: 07-24-2023 Patient encounter procedure ACID LOADER-C Rolan Valdes ACID LOADER Work Phone: [facility]-Outpatient Bone Densitometry Work Phone: Start: 06-22-2023 End: 06-22-[address] Yessi Mcqueen Work Phone: [facility] Work Phone: Start: 06-22-2023 End: 06-22-[address] Yessi Mcqueen Work Phone: [facility]-Laboratory, [facility] Start: 06-01-2023 End: 06-01-[address] Yessi Mcqueen Work Phone: [facility] Start: 05-13-2023 End: 05-13-[address] Yessi Mcqueen Work Phone: [facility] Work Phone: Start: 03-20-2023 End: 03-20-[address] Yessi Mcqueen Work Phone: [facility] Work Phone: Start: 01-16-2023 Telephone encounter Shayna mcdonald MD Work Phone: [facility] [place] Comment on above: Appointment Start: 09-19-2022 End: 09-20-2022 ambulatory FRANKY HALKO DO Facility:[facility] Start: 09-13-2022 End: 09-14-2022 ambulatory FRANKY HALKO DO Facility:[facility] Start: 09-13-2022 End: 09-13-2022 Patient encounter procedure FRANKY HALKO DO [facility] Start: 09-02-2022 End: 09-03-2022 ambulatory FRANKY HALKO DO Facility:[facility] Start: 09-02-2022 End: 09-02-2022 Patient encounter procedure FRANKY HALKO DO [facility] Start: 08-26-2022 End: 08-26-2022 Emergency department patient visit LINDA MARTINEZ MD Facility:[facility] Start: 08-26-2022 End: 08-26-2022 Emergency department patient visit LINDA MARTINEZ MD [facility] Start: 08-22-2022 End: 08-23-2022 ambulatory FRANKY HALKO DO Facility:[facility] Start: 08-22-2022 End: 08-22-2022 Patient encounter procedure FRANKY HALKO DO [facility] Start: 08-18-2022 End: 08-18-2022 ambulatory SHAYNA ANDRADE [facility] Start: 08-18-2022 End: 08-18-2022 Office outpatient visit 15 minutes Shayna Andrade MD Work Phone: [facility] [place] Comment on above: Pre-diabetes (Primar y Dx); S/P bariatric surgery; Weight gain; BMI 31.0-31.9,adult; Class 1 obesity with serious comorbidity and body mass index (BMI) of 31.0 to 31.9 in adult, unspecified obesity type; Deficiency of multiple nutrient elements; Vitamin D deficiency Start: 07-07-2022 End: 07-07-2022 ambulatory [facility] Start: 07-07-2022 End: 07-07-2022 Office outpatient visit 15 minutes Shayna Andrade MD Work Phone: [facility] [place] Comment on above: Pre-diabetes (Primar y Dx); S/P bariatric surgery; Weight gain; BMI 32.0-32.9,adult; Class 1 obesity with serious comorbidity and body mass index (BMI) of 32.0 to 32.9 in adult, unspecified obesity type Start: 2022 End: 06-24-2022 ambulatory FRANKY PEARSON DO Facility:[facility] Start: 2022 End: 2022 Patient encounter procedure FRANKY ANN-MARIEKO DO [facility] Start: 06-07-2022 End: 06-07-2022 ambulatory [facility] Start: 05-10-2022 End: 05-10-[address] [facility] Start: 04-26-2022 End: 04-27-2022 ambulatory FRANKY PEARSON DO Facility:[facility] Start: 04-26-2022 End: 04-26-2022 Patient encounter procedure FRANKY ANN-MARIEKO DO [facility] Start: 04-15-2022 End: 04-16-2022 ambulatory FRANKY PEARSON DO Facility:[facility] Start: 04-15-2022 End: 04-15-2022 Patient encounter procedure FRANKY ANN-MARIEKO DO [facility] Start: 03-03-2022 End: 03-03-2022 ambulatory ROBSON PUGH Facility:[facility] Start: 03-03-2022 End: 03-03-[address] ROBSON PUGH MD [facility] Start: 02-02-2022 End: 02-03-2022 ambulatory FRANKY JACOBSENKO DO Facility:[facility] Start: 02-02-2022 End: 02-02-2022 Patient encounter procedure FRANKY ANN-MARIEKO DO [facility] Start: 12-02-2021 End: 12-03-2021 ambulatory FRANKY ANN-MARIEKO DO Facility:[facility] Start: 12-02-2021 End: 12-02-2021 Patient encounter procedure FRANKY JACOBSENKO DO [facility] Start: 07-04-2021 End: 07-04-2021 Patient encounter procedure FRANKY JACOBSENKO DO [facility] Start: 06-20-2021 End: 06-20-2021 Patient encounter procedure FRANKY JACOBSENKO DO [facility] Start: 05-22-2021 End: 05-22-2021 Emergency department patient visit RUY RIVERA MD [facility] Start: 02-25-2020 End: 02-25-2020 Subsequent hospital visit by physician Sekou Aparicio Work Phone: [facility] Start: 02-05-2020 End: 02-05-2020 Patient encounter procedure ADAM Melissa [facility] Start: 02-03-2020 Encounter for other preprocedural examination ADAM [facility] Start: 02-02-2020 End: 02-03-2020 Patient encounter procedure KATHERINE Bonds NP [facility] Start: 12-10-2019 End: 12-10-2019 Subsequent hospital visit by physician Sekou Aparicio Work Phone: [facility] Start: 10-20-2019 End: 10-20-2019 Subsequent hospital visit by physician Sekou Aparicio Work Phone: [facility] Start: 04-10-2019 End: 04-10-2019 Subsequent hospital visit by physician Rolan Jordan Work Phone: [facility] Procedures Date Procedure Procedure Detail Performing Clinician Start: 02-19-2025 Vitamin D, 25-hydrox y measurement Dr. Franky Pearson DO Work Phone: Comment on above: Vitamin D StatusDefi ciency: <20 ng/mL (50nmol/L)Insufficiency: 20-30 ng/mL (50-75 nmol/L)Sufficiency: 30-100 ng/mL (75-250 nmol/L)Toxicity: >100 ng/mL (>250 nmol/L) Start: 02-06-2025 Radex foot complete minimum [address] Franky Pearson DO Work Phone: Start: 02-02-[address] Matthew Pearson DO Work Phone: Start: 01-16-[address] Zbigniew Pearson DO Work Phone: Start: 07-26-2023 CT of chest without contrast ACID LOADER-C Rolan Valdes ACID LOADER Work Phone: Start: 07-24-2023 Dual energy X-ray absorptiometry ACID LOADER-C Rolan Valdes ACID LOADER Work Phone: Start: 07-24-2023 Ultrasonography of breast ACID LOADER-C Rolan Valdes ACID LOADER Work Phone: Start: 07-24-2023 Bilateral mammography N P-C Rolan Valdes ACID LOADER Work Phone: Start: 06-01-2023 Plain X-ray of [...] (1 - 1-dose 60+ series) [facility] Start: 04-07-2030 DTaP/Tdap/Td Vaccines (2 - Td or Tdap) DTaP/Tdap/Td Vaccines (2 - Td or Tdap) [facility] Start: 06-08-2025 Lipid panel Lipid Panel [facility] Start: 03-05-2025 Patient encounter procedure Registered Clinical -Sleep Lab Work Phone: Start: 02-06-2025 Foot min 3 Views Foot min 3 Views [facility] Start: 02-06-2025 Knee 4 or More Views Knee 4 or More Views [facility] Start: 02-06-2025 XR Foot GE 3 Views [facility] Start: 02-06-2025 XR Knee GE 4 Views [facility] Start: 01-16-2025 Colonoscopy w/biopsy single/multiple COLONOSCOPY AND BIOPSY [facility] Start: 01-16-2025 Egd transoral biopsy single/multiple EGD BIOPSY SINGLE/MULTIPLE [facility] Start: 01-16-2025 Patient discharge [facility] Start: 02-09-2023 COVID-19 Vaccine ( season) COVID-19 Vaccine (2022-24 season) [facility] Start: 02-09-2023 Influenza vaccination Influenza Vaccine (#1) [facility] Start: 12-15-2022 End: 12-15-2022 Patient encounter procedure 12/15/2022 Office Visit Weight Management Shayna Andrade MD [address] [place] [address] [facility] Start: 10-19-2022 Zoster Vaccines (2 of 2) Zoster Vaccines (2 of 2) [facility] Start: 08-18-2022 End: 08-18-2022 Patient encounter procedure 08/18/2022 Office Visit Weight Management Shayna Andrade MD [address] [place] [address] [facility] Start: 02-09-2022 Influenza vaccination Influenza Vaccine (#1) [facility] Start: 2021 Zoster Vaccines (1 of 2) Zoster Vaccines (1 of 2) [facility] Start: 06-02-2021 COVID-19 Vaccine (4 - Booster for Moderna series) COVID-19 Vaccine (4 - Booster for Moderna series) [facility] Start: 02-10-2020 Influenza vaccination Flu vaccine (#1) [place] Start: 03-14-2019 A1C test (Diabetic or Prediabetic) A1C test (Diabetic or Prediabetic) [place] Start: 03-14-2019 HbA1c (Bld) [Mass fraction] A1C test (Diabetic or Prediabetic) [place] Start: 02-09-2019 Influenza vaccination Flu vaccine (#1) [place] Start: 2011 Screening for malignant neoplasm of breast Mammogram [facility] Start: 2001 Screening for malignant neoplasm of cervix [facility] Start: 1992 Cervical cancer screen Cervical cancer screen [place], [place] Start: 1992 Screening for malignant neoplasm of cervix [facility] Start: 1990 DTaP/Tdap/Td vaccine (1 - Tdap) DTaP/Tdap/Td vaccine (1 - Tdap) [place] Start: 1990 Hepatitis A Vaccines (1 of 2 - Risk 2-dose series) Hepatitis A Vaccines (1 of 2 - Risk 2-dose series) [facility] Start: 1990 Hepatitis B vaccine (1 of 3 - Risk 3-dose series) Hepatitis B vaccine (1 of 3 - Risk 3-dose series) [place] Start: 1989 Diabetes mellitus screening Diabetes Screening [facility] Start: 1989 Diabetic microalbuminuria test Diabetic microalbuminuria test [place] Start: 1989 Hepatitis C screening Hepatitis C Screening [facility] Start: 1986 HIV screen HIV screen [place] Start: 1986 HIV screening HIV screen [place] Start: 1983 Depression Screening Depression Screening [facility] Start: 1981 [object Object] Diabetic foot exam [place] Start: 1981 Diabetic foot examination Diabetic foot exam [place] Start: 1981 Diabetic retinal exam Diabetic retinal exam [employer] [place] [place] Start: 1981 Lipid panel Lipid screen [place] Start: 1981 Lipid screen Lipid [place] Start: 1977 Pneumococcal 0-64 years Vaccine (1 of 1 - PPSV23) Pneumococcal 0-64 years Vaccine (1 of 1 - PPSV23) [place] Start: 1972 Hepatitis A Vaccines (1 of 2 - Risk 2-dose series) Hepatitis A Vaccines (1 of 2 - Risk 2-dose series) [facility] Start: 1972 MMR Vaccines (1 of 1 - Standard series) MMR Vaccines (1 of 1 - Standard series) [facility] Start: 1971 Hepatitis B Vaccines (1 of 3 - 3-dose series) Hepatitis B Vaccines (1 of 3 - 3-dose series) [facility] Start: 1971 HIV screening HIV Screening [facility] Start: 1971 Screening for malignant neoplasm of colon [facility] CT Chest WO contrast [facility] Patient referral [facility] Work Phone: [facility] Immunizations Immunization Date Immunization Notes Care Provider [facility] 03-27-2024 influenza, seasonal, injectable, preservative free Dr. Franky Pearson DO Work Phone: [facility] 04-16-2023 influenza, injectabl e, quadrivalent, preservative free Dr. Yessi Mcqueen Work Phone: [facility] 08-24-2022 zoster vaccine recombinant; Translations: [Shingrix] LINDA MARTINEZ MD [facility] 03-11-2022 influenza virus vaccine, unspecified formulation LINDA MARTINEZ MD [facility] Comment on above: Result Comment: at [facility] 04-07-2021 SARS-CoV-2 (COVID-19 ) mRNA-[address] ROBSON PUGH MD [facility] Comment on above: Result Comment: 2021: TPV18 07-02-2020 SARS-CoV-2 (COVID-19 ) mRNA-[address] ROBSON PUGH MD [facility] Comment on above: Result Comment: 2021: TPV18 06-07-2020 SARS-CoV-2 (COVID-19 ) mRNA-[address] ROBOSN PUGH MD [facility] Comment on above: Result Comment: 2021: TPV18 04-07-2020 tetanus toxoid, redu camron diphtheria toxoid, and acellular pertussis vaccine, adsorbed; Translations: [Boostrix (Tdap)] RUY RIVERA MD [facility] 03-11-2020 influenza virus vaccine, unspecified formulation RUY RIVERA MD [facility] 03-10-2020 influenza virus vaccine, unspecified formulation DR ROBSON PUGH MD [facility] 03-30-2014 influenza virus vaccine, unspecified formulation DR ROBSON PUGH MD [facility] 05-03-2012 influenza virus vaccine, unspecified formulation DR ROBSON PUGH MD [facility] Payers Date Payer Category Payer Self-pay 2024 Unknown [id number] 2021 Unknown [employer] [id number] 2021-Present [address] [place] [id number] Commercial [id number] 2017 Unknown [employer] xxxxxxxxxxxxx 2017-Present [phone] [place] [phone] xxxxxxxxxxxxx [id number] 2017 Unknown [employer] [id number] 2017-Present [phone] [place] [phone] [id number] .[id number] 2015 Unknown [id number] 1971 Unknown [id number] 2.16.840.1.438848.3.579.2.598 1971 Unknown [id number] 2.16.840.1.751776.3.579.2.598 1971 Unknown [id number] 2.16.840.1.938072.3.579.2.598 1971 Unknown [id number] 2.16.840.1.622286.3.579.2. 1971 Unknown [id number] 2.16.840.1.143505.3.579.2. 1971 Unknown [id number] 2.16.840.1.173672.3.579.2. 1971 Unknown [id number] 2.16.840.1.938592.3.579.2. 1971 Unknown [id number] 2.16.840.1.178348.3.579.2. 1971 Unknown [id number] 2.16.840.1.877965.3.579.2. 1971 Unknown [id number] 2.16.840.1.332238.3.579.2. 1971 Unknown [id number] 2.16.840.1.487975.3.579.2. 1971 Unknown [id number] 2.16.840.1.017036.3.579.2. 1971 Unknown [id number] 2.16.840.1.678905.3.579.2. 1971 Unknown [id number] 2.16840.1.797191.3.579.2.7 1959 Unknown [id number] Unknown [id number] 2.16.840.1.507121.3.579.2.598 Unknown [facility] [id number] Unknown [id number] 2.16.840.1.337125.3.579.2.462 Unknown [id number] 2.16840.1.150641.3.579.2.462 Unknown [id number] 2.16.840.1.699805.3.579.2.462 Unknown [id number] 2.16.840.1.600038.3.579.2.462 Unknown [id number] 2.16.840.1.953147.3.579.2.462 Unknown [id number] 2.16.840.1.020510.3.579.2.462 Unknown [id number] 2.16.840.1.407144.3.579.2.462 Unknown [id number] 2.16.840.1.447675.3.579.2.462 Unknown [id number] 2.16.840.1.596277.3.579.2.462 Unknown [id number] 2.16.840.1.802061.3.579.2.462 Unknown [id number] 2.16.840.1.794156.3.579.2.462 Unknown [id number] 2.16.840.1.530669.3.579.2.462 Unknown [id number] 2.16.840.1.894927.3.579.2.462 Unknown [id number] 2.16.840.1.052596.3.579.2.462 Unknown [id number] 2.16.840.1.904416.3.579.2.462 Unknown [id number] 2.16.840.1.012543.3.579.2.462 Unknown [id number] 2.16.840.1.181469.3.579.2.462 Unknown [id number] 2.16.840.1.938068.3.579.2.462 Unknown [id number] 2.16.840.1.952430.3.579.2.462 Unknown [id number] 2.16.840.1.305507.3.579.2.462 Unknown [id number] 2.16.840.1.522166.3.579.2.462 Unknown [id number] 2.16.840.1.301606.3.579.2.462 Unknown [id number] 2.16.840.1.895392.3.579.2.462 Unknown [id number] 2.16.840.1.667174.3.579.2.462 Unknown [id number] 2.16.840.1.943330.3.579.2.462 Unknown [id number] 2.16.840.1.260623.3.579.2.462 Unknown [id number] 2.16.840.1.518918.3.579.2.462 Unknown [id number] 2.16.840.1.186727.3.579.2.462 Unknown [id number] 2.16.840.1.872598.3.579.2.462 Unknown [id number] 2.16.840.1.171615.3.579.2.462 Unknown [id number] 2.16.840.1.720816.3.579.2.462 Unknown [id number] 2.16.840.1.652226.3.579.2.462 Social History Date Type Detail Facility Start: 12-10-2019 End: 03-05-2025 Tobacco smoking status NHIS Never smoker [place] Start: 12-10-2019 End: 07-07-2022 Alcohol intake Ex-drinker (finding) [facility] Start: 04-01-2018 Alcohol Comment less than once a mon th [place] Start: 1971 Sex Assigned At Not on file [place] Start: 04-10-2019 End: 02-25-2020 Tobacco use and exposure Never used [place] Start: 04-10-2019 End: 07-07-2022 Alcohol intake Not Currently [facility] Start: 1970 Sex Assigned At Female A [facility] Start: 06-27-2022 End: 08-18-2022 Exposure to SARS-CoV-2 (event) Not sure [facility] Start: 07-07-2022 History of Social function [facility] Medical Equipment Procedure Code Equipment Code Equipment Origin al Text Equipment Identifier Dates See Instructions , dx E16.2; check BGT due to hypoglycemic symptoms, up to once per day; dispense 100 glucose test strips, # 100 EA, 0 Refill(s), Pharmacy: [facility], 164, , 04/04/22 8:05:00 EDT, Height, 86.1 Start: 04-04-2022 See Instructions , dx E16.2; check BGT due to hypoglycemic symptoms, up to once per day; dispense 100 lancets., # 100 EA, 0 Refill(s), Pharmacy: [facility], 164, cm, 04/04/22 8:05:00 EDT, Height, 86.1 Start: 04-04-2022 See Instructions , dx E16.2; check BGT due to hypoglycemic symptoms, up to once per day; dispense 100 glucose test strips, # 100 EA, 0 Refill(s), Pharmacy: [facility], 164, , 04/04/22 8:05:00 EDT, Height, 86.1 Start: 04-04-2022 See Instructions , dx E16.2; check BGT due to hypoglycemic symptoms, up to once per day; dispense 100 lancets., # 100 EA, 0 Refill(s), Pharmacy: [facility], 164, , 04/04/22 8:05:00 EDT, Height, 86.1 Start: 04-04-2022 See Instructions , dx E16.2; check BGT due to hypoglycemic symptoms, up to once per day; dispense 100 glucose test strips, # 100 EA, 0 Refill(s), Pharmacy: [facility], 164, , 04/04/22 8:05:00 EDT, Height, 86.1 Start: 04-04-2022 See Instructions , dx E16.2; check BGT due to hypoglycemic symptoms, up to once per day; dispense 100 lancets., # 100 EA, 0 Refill(s), Pharmacy: [facility], 164, cm, 04/04/22 8:05:00 EDT, Height, 86.1 Start: 04-04-2022 See Instructions , dx E16.2; check BGT due to hypoglycemic symptoms, up to once per day; dispense 100 glucose test strips, # 100 EA, 0 Refill(s), Pharmacy: [facility], 164, cm, 04/04/22 8:05:00 EDT, Height, 86.1 Start: 04-04-2022 See Instructions , dx E16.2; check BGT due to hypoglycemic symptoms, up to once per day; dispense 100 lancets., # 100 EA, 0 Refill(s), [facility] [facility], 164, cm, 04/04/22 8:05:00 EDT, Height, 86.1 Start: 04-04-2022 See Instructions , dx E16.2; check BGT due to hypoglycemic symptoms, up to once per day; dispense 100 glucose test strips, # 100 EA, 0 Refill(s), Pharmacy: [facility], 164, cm, 04/04/22 8:05:00 EDT, Height, 86.1 Start: 04-04-2022 See Instructions , dx E16.2; check BGT due to hypoglycemic symptoms, up to once per day; dispense 100 lancets., # 100 EA, 0 Refill(s), Pharmacy: [facility], 164, cm, 04/04/22 8:05:00 EDT, Height, 86.1 Start: 04-04-2022 See Instructions , dx E16.2; check BGT due to hypoglycemic symptoms, up to once per day; dispense 100 glucose test strips, # 100 EA, 0 Refill(s), Pharmacy: [facility], 164, cm, 04/04/22 8:05:00 EDT, Height, 86.1 Start: 04-04-2022 See Instructions , dx E16.2; check BGT due to hypoglycemic symptoms, up to once per day; dispense 100 lancets., # 100 EA, 0 Refill(s), Pharmacy: [facility], 164, cm, 04/04/22 8:05:00 EDT, Height, 86.1 Start: 04-04-2022 See Instructions , dx E16.2; check BGT due to hypoglycemic symptoms, up to once per day; dispense 100 glucose test strips, # 100 EA, 0 Refill(s), Pharmacy: [facility], 164, cm, 04/04/22 8:05:00 EDT, Height, 86.1 Start: 04-04-2022 See Instructions , dx E16.2; check BGT due to hypoglycemic symptoms, up to once per day; dispense 100 lancets., # 100 EA, 0 Refill(s), Pharmacy: [facility], 164, cm, 04/04/22 8:05:00 EDT, Height, 86.1 Start: 04-04-2022 Goals Date Patient Goal Desired Activity /State Functional Status Date Assessment Result Facility 08-26-2022 Functional Status Independent [facility] 03-03-2022 Functional Status Maintained, Less than 8 hours [facility] Mental Status Date Assessment Result Facility 01-16-2025 Cognitive function Voice/Name [facility] Work Phone: Clinical Notes 05-22-2021 to 03-05-2025 Note Date & Type Note Facility 03-05-2025 Progress note [facility] 01-16-2025 Consult note [facility] 01-16-2025 Procedure note [facility] 01-16-2025 Procedure note [facility] 01-16-2025 Procedure note [facility] 01-16-2025 Procedure note [facility] 01-16-2025 History and physi bethanie note [facility] 01-16-2025 Note [facility] Medical Records Department [address] [place] [address] History Physical Exam 01/16/25 0638 MR#: [id number] Acct: [id number] Name: AMANDA GRUBBS Rep #: [id number] : 1970 54 From: [place] [facility]ined[place] DO PCP: Dr. Franky Pearson, DO Status:[facility] Location: [place] [address] HPI - General General Date of Admission: 01/16/25 Date of Service: 01/16/25 Chief Complaint: abdominal pain, bloating, N/V, bleeding HPI Narrative AMANDA GRUBBS, is a 54 F who presents with the Chief Complaint: abdominal pain, bloating, N/V, bleeding Gastric bypass 2018 hysterectomy 2015 total CCX 2002 - occasional alcohol - [...] shakes very little protein and fiber intake [facility] Medical History Kidney stones Wears [...] #90 caps 11/26/24 Rx release peg 3350-sod sulf,diohz-mby-ukg See Rx Instructions PO .COMPLEX #2 11/26/24 [...] dysphagia, early sat (more content not included)... [facility] 01-16-2025 Consult note [facility] 11-26-2024 Evaluation note Diagnosis Onset Date Resolution Bloating acute November 26 9:28am Constipation acute November 26 9:28am Nausea acute November 26 9:28am Rectal [...] 5:17am Rectal pain acute January 16 5:17am [facility] Work Phone: 1(441) 212-620106-18-2025 Evaluation note* Diagnosis Onset Date Resolution Status Admit Date Bloating acute November 26 9:28am Constipation acute November 26 9:28am Nausea acute November 26 9:28am Rectal bleeding acute November 9:28am Rectal pain acute November 26 9:28am H/O gastric bypass chronic November 092024 9:28am Segmental and somatic dysfunction of cervical region acute 2024 11:56am Segmental and somatic dysfunction of lumbar region acute Dec 11:56am Segmental and somatic dysfunction of pelvic region acute Dec 11:56am Segmental and somatic dysfunction of thoracic region acute J 2024 11:56am Segmental and somatic dysfunction of cervical region acute 2024 9:09am Segmental and somatic dysfunction of [...] tract infection) acute February 02, 2025 1:33pm [facility] Work Phone: 1(367) 638-207206-18-2025 Evaluation note* Diagnosis Onset Date Resolution Status Admit Date Bloating acute November 26 9:28am Constipation acute November 26, 9:28am Nausea acute November 26 9:28am Rectal bleeding acute November 9:28am Rectal pain acute November 26 9:28am H/O gastric bypass chronic November 092024 9:28am Segmental and somatic dysfunction of cervical region acute 2024 11:56am Segmental and somatic dysfunction of lumbar region acute Dec 11:56am Segmental and somatic dysfunction of pelvic region acute Dec 11:56am Segmental and somatic dysfunction of thoracic region acute 2024 11:56am Segmental and somatic dysfunction of cervical region acute 2024 9:09am Segmental and somatic dysfunction of lumbar region acute Dec 9:09am Segmental and somatic dysfunction of pelvic region acute Dec 9:09am Segmental and somatic dysfunction of thoracic region acute 2024 9:09am Bloating acute January 16 5:17am Constipation acute January 16, 2025 5:17am Nausea acute January 16 5:17am Rectal bleeding acute January 5:17am Rectal pain acute January 16 5:17am Bloating acute January 29 9:03am Constipation acute January 29, 2025 9:03am UTI (urinary tract infection) acute February 02, 2025 1:33pm Hallux valgus (acquired), right foot acute February 06 8:20am Metatarsalgia of right foot acute February 06, 2025 8:20am Osteoarthritis of right knee acute February 06, 2025 8:20am Tendinitis of right foot acute February 06, 2025 8:20am Anal fissure acute March 052024 8:27am Constipation acute March 052024 8:27am Gastric ulcer acute February 102024 8:27am Rectal bleeding acute March 05, 2025 8:27am [facility] Work Phone: 1(831) 517-392204-17-2025 Evaluation note* Diagnosis Onset Date Resolution Status Admit Date Segmental and somatic dysfunction of cervical region acute A pril 2024 10:18am Segmental and somatic dysfunction of lumbar region acute Apr 2024 10:18am Segmental and somatic dysfunction of pelvic region acute Sep 10:18am Segmental and somatic dysfunction of thoracic region acute A pril 2024 10:18am Bloating acute November 26 9:28am Constipation acute November 26 9:28am Nausea acute November 26 9:28am Rectal [...] thoracic region acute J darnell 2024 11:56am [facility] Work Phone: 1(468) 858-217904-17-2025 Evaluation note* Diagnosis Onset Date Resolution Status [...] November 26 9:28am Constipation acute November 26 9:28am Nausea acute November 26 9:28am Rectal [...] somatic dysfunction of thoracic region acute J formerly [facility] 2024 9:09am [facility] Work Phone: 1(406) 465-346004-17-2025 Evaluation note* Diagnosis Onset Date Resolution Status Admit Date Segmental and somatic dysfunction of cervical region [facility] 10:18am Segmental and somatic dysfunction of lumbar region acute Apr 2024 10:18am Segmental and somatic dysfunction of pelvic region acute Apr 2024 10:18am Segmental and somatic dysfunction of thoracic region acute [facility] 2024 10:18am Bloating acute November 26 9:28am [...] somatic dysfunction of thoracic region acute J darnell2024 11:56am Segmental and somatic dysfunction of cervical [...] 5:17am Rectal pain acute January 16 5:17am [facility] Work Phone: 1(551) 798-872003-05-2025 Evaluation note* Diagnosis Onset Date Resolution Status [...] somatic dysfunction of thoracic region acute A l 2024 10:18am Bloating acute November 26 9:28am Constipation acute November 26, 2 025 9:28am Nausea acute November 26 9:28am Rectal bleeding acute November 9:28am Rectal pain acute November 26 9:28am H/O gastric bypass chronic November 092024 9:28am [facility] Work Phone: 1(372) 343-841608-08-2023 Telephone encounter Note* Telephone Encounter - Liya Walker - 01/16/2023 4:54 PM EDT Name of Caller: Amanda Contact Reason for Appointment: Pt needs to cancel upcoming appt and the pt sill call back to resx. Please advise Office Name: [facility] Medication Refills need, if any: NA Medication [facility] Miscellaneous Notes* Telephone Encounter - Liya Louisro - 01/16/2023 4:54 PM EDT Name of Caller: Amanda Contact Reason for Appointment: Pt needs to cancel upcoming appt and the pt sill call back to resx. Please advise Office Name: [facility] Medication Refills need, if any: NA Medication Name: NA documented in this encounterSLake [id number] Hospital Discharge instructions Patient Education 08/26/2022 17:49:43 [...] Swelling, pain or redness in one leg 5470-1274 [employer]. [address] [place] [address]. All rights reserved. This information is not intended as a substitute for professional medical care. Always follow yourhealthcare professional's instructions. Follow Up Care 08/26/2022 16:01:09 With:FRANKY PEARSON Address: [address] [place] [phone] Business (1) When:2-4 days Comments:Schedule appointment as soon as possibleReturn to ED if symptoms worsenClear liquid diet till 12noon and if symptoms do not recur increase as tolerated.Follow up for outpatient stress testing.Return for symptoms as described [facility] 03-18-2023 Note Discharge Instructions Thank you for allowing [facility] to assist you with your healthcare needs. [...] testing. Return for symptoms as described Where: [address] [place] [phone] Business (1) Allergies NKA Medications Please ask [...] Swelling, pain or redness in one leg 4261-2503 [employer]. [address] [place] [address]. All rights reserved. This information is not intended as a substitute for professional medical care. Always follow yourhealthcare professional's instructions. Additional Information VACCINATE! IT SAVES LIVES! Members of the community who have not yet received the COVID-19 vaccine and would like to receive it can visit one of [facility] vaccine clinics. There are many vaccine clinic locations within the [facility]. For locations and available times, please visit www.gettheshot.coronavirus.[place].gov/. It is important to note that some COVID mobile vaccine clinics are held outdoors and may be canceled in rainy or stormy conditions. To learn more about pediatric vaccinations (ages 5-11), we invite you to visit the [facility] webpage. https://www.[facility].org/pages/3816-Btynm-Yxbhhkoumuu-Fgbjiitfgs-Chmym-Ssa stions.htmlTo learn more about the COVID-19 vaccine, we invite you to visit the CDC website for a list of frequently asked questions. https://www.cdc.gov/coronavirus/2019-ncov/vaccines/faq.html [facility] Patient Portal Access Instructions: Stay connected with your healthcare team and access your personal medical information anytime with the [facility] Patient Portal. If you would like a full copy of your medical records please contact the [facility] Medical Records Department Sunday through Sunday between 8a.m. and 4:30p.m. Please follow the directions below to access the portal: 1.Access the email account you provided upon registration to the [facility].2.Look for an invitation email from [facility].3.Open the email and access the invitation link: Accept Invitation to [facility]4.Fill in the required mckenzie to create your [...] you will allow to register on the [facility] Patient Portal for access to your information. You can also access the [facility] Patient Portal on the [employer]. Simply click on Health Records under iProcure and then click on the Nurys logo. [...] Call your local pharmacy or go to http://bit.Verix/9E4Vq0a to find one close to you.3.Make use of household items: Use cat litter or old coffee grounds to dispose medications if other options arenot available. Mix your drugs with these household products, seal them in an airtight container andthrow it into the garbage. Call [facility]: [phone] to be sure your drugs can be [...] that I should contact my d octor. 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 Signature: Date/Time: Relationship to Patient: Witness Name/Signature: Date/Time: [facility]03-18-2023 Note ORIGINAL EXAMINATION: CT OF THE ABDOMEN [...] 08/26/2022 6:34:22 PM Ordering Provider: LINDA MARTINEZ [facility]03-18-2023 Note ORIGINAL EXAMINATION: CT OF THE ABDOMEN [...] Sign Date: 08/26/2022 6:34:22 PM Ordering Provider: [facility]03-18-2023 Note ORIGINAL EXAMINATION: ONE XRAY [...] Sign Date: 08/26/2022 5:14:04 PM Ordering Provider: [place] [address]-18-2023 Note ORIGINAL EXAMINATION: ONE XRAY VIEW OF [...] Sign Date: 08/26/2022 5:14:04 PM Ordering Provider: [facility]03-10-2023 [facility]GRESS [...] was performed.Clinical documentation is updated and completed. [facility] [id number] History of Present illness Narrative* Mary Mishra [...] Exercising: yes If yes: Type: gym with new product trainer Times per week: 3 Min per [...] current management, continue weight loss program Stable Kati Black 3 month supply Continue current management, continue [...] is updated and completed. documented in this [facility]01-27-2023 [facility] POST-OP WEIGHT LOSS MANAGEMENT PROGRESS [...] preDM 4. Weight maintenance after bariatric surgery [facility] 07-07-2022 History of Present illness Narrative* Manuel [...] instructed to get labs drawn today or JDA If YES: Labs completed at [facility]? N/A [...] after bariatric surgery discussed documented in this [facility]01-13-2023 Note ORIGINAL HISTORY: Lung [...] Sign Date: 2022 12:43:51 PM Ordering Provider: [facility]01-13-2023 Note ORIGINAL HISTORY: Lung nodule COMPARISON: [...] Sign Date: 2022 12:43:51 PM Ordering Provider: [facility]12-28-2022 Note [facility] POST-OP WEIGHT [...] was performed.Clinical documentation is updated and completed. [facility] [id number] Evaluation + Plan noteExtracted from: Title:Clinical Document Author:ROBSON PUGH Date:03/03/22 SUDAN ADMISSION HISTORY AN D PHYSICIAL CHIEF COMPLAINT: HISTORY OF PRESENT ILLNESS: REVIEW OF SYSTEMS: ACTIVE PROBLEMS: (24) Abnormal mammogram (794500052) Abnormal screening computed tomography (CT) of lung (7858940170) Anxiety (46323206) Breast cancer screening (193620497) Cervical cancer screening (4978743958) Colon cancer screening (957226702) Encounter for well adult exam with abnormal findings (634092663) GERD (gastroesophageal reflux disease) (464240064) Hot flashes due to menopause (151551099) Immunization due (023390888) Insomnia (251621916) Major depression in remission (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) Nephrolithiasis (376740687) Obesity (4049602253) Post-menopausal (668760078) Pre-diabetes (2238033196) Preoperative evaluation of a medical condition to rule out surgical contraindications (TAR required) (788293787) Restless legs (88320967) Right arm pain (157443092) S/P gastric bypass (0802966079) Screening for cardiovascular condition (266479220) Somatic dysfunction of upper extremity (2009040451) Tobacco non-user (894131788) Viral syndrome (19463417) MEDICATIONS: Active Inpt Meds: None Active PRN Meds: None One Time Meds: None Active IV Meds: Lactated Ringers Infusion 1,000 mL (LR 1,000 mL) Start: 03/03/22 7:52:00 EDT, Rate: 50 mL/hr, 03/03/22 7:52:00 EDT ALLERGIES: (1) NKA FAMILY HISTORY: SOCIAL HISTORY: PHYSICAL EXAM: VITALS: IadejrQjrkWPWzekeIENbF2RZY7MdzaKn(kg) 03/03 07:5536.7126/46647982UT90/23 79.5 24 Hr Tmax: 36.7 at 03/03 [...] Date:04/04/2022 08:00:00 AM Scheduled Provider:FRANKY PEARSON DO Location:[facility] Appointment Type: OV Appointment Date:05/30/2022 09:00:00 AM Scheduled Provider:FRANKY PEARSON DO Location:[facility] Appointment Type: OV Future Scheduled [...] 02/22/22 * Complete Metabolic Panel 08/22/21 * [facility] Lab Send out (Blood Specimens) 11/22/21 Radiology* US Breast Right Limited 08/08/22 * CT Thorax w/o Contrast 06/07/22 * MA Mammogram Diagnostic Bilateral w/o Juma 01/01/22 [facility] 09-23-2022 Hospital Discharge instructions Patient Education 03/03/2022 [...] before eating solid foods. General instructions Take wgln-tiv-inrwoxv and prescription medicines only as told by [...] 09/17/2016 Document Revised: 08/26/2018 Document Reviewed: 09/17/2016 [employer] Patient Education 2020 [employer]. 03/03/2022 09:18:09 Colonoscopy, Adult, Care After Colonoscopy, [...] a slower pace than normal. ?Eat soft, dqnf-vo-rpxuwd foods. Take vrho-fbb-apdghbv or prescription medicines only as told by [...] 01/09/2005 Document Revised: 03/20/2018 Document Reviewed: 08/08/2016 [employer] Patient Education [employer]. Follow Up Care 01/09/2022 13:05:28 With:ROBSON PUGH MD Address: [address] [facility] [address] [place] [address]- [phone] When: Unknown Comments:Follow-up as needed [facility] 09-23-2022 Summary of episode note Discharge Instructions Thank you for allowing [facility] to assist you with your healthcare needs. The following is importantdischarge information regarding your hospital visit. Your Care Team FRANKY PEARSON DO What to do next Scheduled Follow-Up Appointments Appointment Type When With Where Contact InformationPC OV 04/04/2022 08:00 AM FRANKY APPIAH DO [address] [address] OV 05/30/2022 09:00 AM FRANKY ODEN DO [address] [address] Follow Up Appointments Follow Up with ROBSON PUGH MD When Why: Follow-up as needed Where: [address] [facility] [address] [place] [address] [phone] Allergies NKA Medications Please ask your primary [...] before eating solid foods. General instructions Take hwgz-llz-fngwycu and prescription medicines only as told by [...] 09/17/2016 Document Revised: 08/26/2018 Document Reviewed: 09/17/2016 [employer] Patient Education 2020 [employer]. Colonoscopy, Adult, Care After This sheet gives [...] slower pace than normal. ? Eat soft, kerd-hc-grnlgc foods. Take rveb-hgc-ocwgaot or prescription medicines only as told by [...] 01/09/2005 Document Revised: 03/20/2018 Document Reviewed: 08/08/2016 [employer] Patient Education 2020 [employer] Additional Information VACCINATE! IT SAVES LIVES! Members of the community who have not yet received the COVID-19 vaccine and would like to receive it can visit one of [facility] vaccine clinics. There are many vaccine clinic locations within the [facility]. For locations and available times, please visit https://[email or web address].[place].gov/. It is important to note that some COVID mobile vaccine clinics are held outdoors and may be canceled in rainy or stormy conditions. To learn more about pediatric vaccinations (ages 5-11), we invite you to visit the [facility] webpage. https://www.[employer].org/pages/4010-Cdkrc-Hnxnfjjkapw-Bffwlcvhuy-Avgmy-Eno stions.htmlTo learn more about the COVID-19 vaccine, we invite you to visit the [employer] website for a list of frequently asked questions. https://nurys.org/assets/Cmodhovb-rfb-Hxmynpjb/kzaed-Idebloc-Hbrbveuhia _Asked-Questions.pdf [facility] Patient Portal Access Instructions: Stay connected with your healthcare team and access your personal medical information anytime with the [facility] Patient Portal.If you would like a full copy of your medical records, please contact the [facility] Medical Records Department, Sunday through Sunday between 8a.m. and 4:30p.m. Please follow the directions below to access the portal: 1.Access the email account you provided upon registration to the hospital.2.Look for an invitation email from [facility].3.Open the email and access the invitation link: Accept Invitation to [facility]4.Fill in the required mckenzie to create your account. Sign into [email or web address] with your username and password that you [...] you will allow to register on the [facility] Patient Portal for access to your information. You can also access the [facility] Patient Portal on the [employer] ramírez. Simply click on Health Records under iProcure and then click on the [employer] logo. HOW TO SAFELY DISPOSE OF PRESCRIPTION [...] Call your local pharmacy or go to http://FunGoPlay/4X9Tn0j to find one close to you.3.Make use of household items: Use cat litter or old coffee grounds to dispose medications if other options arenot available. Mix your drugs with these household products, seal them in an airtight container andthrow it into the garbage. Call [facility]: [phone] to be sure your drugs can be [...] that I should contact my d octor. 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 Signature: Date/Time: Relationship to Patient: Witness Name/Signature: Date/Time: [facility]09-23-2022 Anesthesiology Consult note Patient: AMANDA GRUBBS Age: 51 years Sex: Female : 1970 Associated Diagnoses: None Author: SANTIAGO GUTIERREZ APRN-MILIEU MANAGER Assessment Postanesthesia assessment Vitals: Vital signs from [...] by SANTIAGO GUTIERREZ on 03/03/2022 09:12 AM [facility]09-23-2022 Anesthesiology Consult note Patient: AMANDA GRUBBS Age: [...] Problem list: Medical Anxiety / SNOMED CT 34373367 / Confirmed Cervical cancer screening / SNOMED CT 5622193365 / Confirmed Abnormal screening computed tomography (CT) of lung / SNOMED CT 6406736897 / Confirmed GERD (gastroesophageal reflux disease) / SNOMED CT 346699568 / Confirmed S/P gastric bypass / SNOMED CT 4096883374 / Confirmed Immunization due / SNOMED CT 800175300 / Confirmed Insomnia / SNOMED CT 403268241 / Confirmed Nephrolithiasis / SNOMED CT 140696137 / Confirmed Major depression in remission / SNOMED CT 54254201 / Confirmed Abnormal mammogram / SNOMED CT 460906672 / Confirmed Hot flashes due to menopause / SNOMED CT 547707054 / Confirmed Obesity / SNOMED CT 6674332608 / Confirmed Right arm pain / SNOMED CT 713864183 / Confirmed Preoperative evaluation of a medical condition to rule out surgical contraindications (TAR required) / SNOMED CT 267489511 / Confirmed Screening for cardiovascular condition / SNOMED CT 001597812 / Confirmed Breast cancer screening / SNOMED CT 852121990 / Confirmed Colon cancer screening / SNOMED CT 249268924 / Confirmed Encounter for well adult exam with abnormal findings / SNOMED CT 080762992 / Confirmed Post-menopausal / SNOMED CT 502608424 / Confirmed Pre-diabetes / SNOMED CT 7421890496 / Confirmed Restless legs / SNOMED CT 16332152 / Confirmed Somatic dysfunction of upper extremity / SNOMED CT 0804023635 / Confirmed Tobacco non-user / SNOMED CT 027303747 / Confirmed Viral syndrome / SNOMED CT 27277856 / Confirmed, Active Problems (24) Abnormal mammogram [...] with small intestine reconstruction to limit absorption (29016). Endometrial ablation (333501630). Diagnostic laparoscopy of female pelvis (136222632). Hysterectomy (861665705). section (41433225). Comments: 03/03/2022 7:52 Rhonda Saxena RN x2 Cholecystectomy (69562007). Colonoscopy (215233491). Comments: 03/03/2022 7:53 Rhonda Saxena RN x2 Cystourethroscopy, with ureteroscopy and/or pyeloscopy; with removal or manipulation of calculus (ureteral catheterization is included) (65131). Entire finger ([id number]). Comments: 03/03/2022 7:53 EDT - Rhonda Swenson RN right juan josey Social History Social & Psychosocial Habits Alcohol 06/27/2019 Use: Current Frequency: 1-2 times per month Substance Abuse 06/27/2019 Use: Never Tobacco 06/27/2019 Tobacco Use: Never (less than 100 in l Home/Environment 03/03/2022 Domestic Concerns None Living situation: Home/Independent Primary Report Checker: Self Current Home Treatments None Special Services [...] Vital Signs(last 24 hrs) Last Charted Temp Ffmhxfyv58.7 DegC (MAR 03 07:55) Heart Rate Mdswfcszx09 bpm (MAR 03 09:00) Resp Rate 19 br/min (MAR 03 09:00) GWL655 mmHg (MAR 03 08:55) DBP87 mmHg (MAR 03 08:55) BMI30.07 (MAR 03 07:55) Measurements from flowsheet : Measurements 03/03/2022 7:55 EDT Height 162.6 cm Admission Weight 79.5 kg Weight Method Stated Thompson Body Weight 54.74 kg BSA Admission 1.85 [...] Surgeon SN - CAt - Role Performed Iap Displays Analyst 1 SN - CAt - Role Performed MILIEU MANAGER SN - CAt - Role Performed School Photograph Editor 03/03/2022 8:53 EDT [place] History and Physical 03/03/2022 8:09 EDT Continuous [...] EDT Designated Person #1 We May Share ENEIAD Grubbs [phone] Designated Person #1 Relationship Spouse Designated Person #2 We May Share ENEIDA Grubbs [phone] Designated Person #2 Relationship Daughter Privacy Restrictions Requested None Height 162.6 cm Admission Weight 79.5 kg Weight Method Stated Thompson Body Weight 54.74 kg BSA Admission 1.85 [...] Method Explanation, Printed materials Preferred Written Language Nigerien Preferred Spoken Language Nigerien Information Given by Patient Patient's Current Physicians [...] Note-Nursing Procedure/Therapy Intake . Assessment and Plan [employer] [employer]hesiologists (ASA) physical status classification: Class III. Anesthetic Preoperative Plan Anesthetic technique: MAC. Informed consent: signed by patient. Digitally Signed by SANTIAGO GUTIERREZ on 03/03/2022 09:08 AM [facility]09-23-2022 Note SUDAN ADMISSION HISTORY AND PHYSICIAL CHIEF COMPLAINT: HISTORY OF PRESENT ILLNESS: REVIEW OF SYSTEMS: ACTIVE PROBLEMS: (24) Abnormal mammogram (037177055) Abnormal screening computed tomography (CT) of lung (4632534300) Anxiety (56460168) Breast cancer screening (853317989) Cervical cancer screening (8690383846) Colon cancer screening (296390238) Encounter for well adult exam with abnormal findings (097148557) GERD (gastroesophageal reflux disease) (578383098) Hot flashes due to menopause (023048067) Immunization due (321696485) Insomnia (877456291) Major depression in remission (84139910) Nephrolithiasis (334266493) Obesity (2631749576) Post-menopausal (670332380) Pre-diabetes (9017274148) Preoperative evaluation of a medical condition to rule out surgical contraindications (TAR required) (073147520) Restless legs (60690765) Right arm pain (828601455) S/P gastric bypass (4741253172) Screening for cardiovascular condition (984627398) Somatic dysfunction of upper extremity (3496762556) Tobacco non-user (757442035) Viral syndrome (22196196) MEDICATIONS: Active Inpt Meds: None Active PRN Meds: None One Time Meds: None Active IV Meds: Lactated Ringers Infusion 1,000 mL (LR 1,000 mL) Start: 03/03/22 7:52:00 EDT, Rate: 50 mL/hr, 03/03/22 7:52:00 EDT ALLERGIES: (1) NKA FAMILY HISTORY: SOCIAL HISTORY: PHYSICAL EXAM: VITALS: RrdtnmKuqsTLKczzpDHStT2XNB9NdxvKd(kg) 03/03 07:5536.7126/81345863MJ76/23 79.5 24 Hr Tmax: 36.7 at 03/03 [...] ROBSON PUGH MD on 03/03/2022 08:58 AM [facility]03-14-2022 Evaluation + Plan note Future Scheduled Tests [...] 02/22/22 * Complete Metabolic Panel 08/22/21 * [facility] Lab Send out (Blood Specimens) 11/22/21 Radiology* MA Mammogram Diagnostic Bilateral w/o Juma 01/01/22 * US Breast Right Complete 01/01/22 [facility] 03-14-2022 Evaluation + Plan note Future Appointments [...] 02/22/22 * Complete Metabolic Panel 08/22/21 * [facility] Lab Send out (Blood Specimens) 11/22/21 Radiology* CT Thorax w/o Contrast 06/07/22 * MA Mammogram Diagnostic Bilateral w/o Juma 01/01/22 [facility] 12-12-2021 Hospital Discharge instructions Patient Education 05/22/2021 [...] If needed, more treatment may be started. 5078-1919 [employer]. [address] [place] [address]19. All rights reserved. This information is not [...] neck Chest pain not caused by coughing 3894-8380 [employer]. [address] [place] [address]. All rights reserved. This information is not [...] foods again, start with small amounts of pntx-tl-kvtxwi, low- fat foods. These include apple sauce, [...] increase stomach acid. Don't use aspirin or lwbp-szd-geutvnw pain and fever medicines, if possible. This includes nonsteroidal anti-inflammatory drugs (NSAIDs). Lose excess weight. Finish eating at least 2 hours before you go to bed or lie down. Raise the head of your bed. 7736-7757 [employer]. [address] [place] [address]. All rights reserved. This information is not intended as a substitute for professional medical care. Always follow yourhealthcare professional's instructions. Follow Up Care 05/22/2021 04:01:53 With:FRANKY PEARSON DO Address: [id number] When:2-4 days [facility] Consult note Author Basilio [facility] Note Date/Time January 16, 2025 6:3 6am [facility] Medical Records Department [address] [place] [address] Pre-Anesthesia Evaluation 01/16/25 0632 MR#: [id number] Acct: [id number] Name: AMANDA GRUBBS Rep #:[id number] : 1970 54 From: Basilio Skinnre MD PCP: Dr. Franky Pearson, DO Status:REG SDC Y Race: C Location: [place] [address] ASA Classification* ASA Classification ASA Classification: 2 [...] COLONOSCOPY, EGD Anesthesia History Anesthesia History - environmental web crawler: Anesthesia History - environmental web crawler Hx Hospitalization No 01/13/25 13:38 Any Problems [...] take am of surgery PONV PONV - environmental web crawler: PONV - environmental web crawler Female No 01/13/25 13:38 HX of Motion [...] 01/16/25 05:54 Respiratory Assessment Respiratory Assessment - environmental web crawler: Respiratory Tract Infection Hx - environmental web crawler Hx Respiratory Tract Infection No 01/13/25 13:38 STOP Sleep Apnea STOP Sleep Apnea - environmental web crawler: STOP Sleep Apnea - environmental web crawler Hx Hypertension No 01/13/25 13:38 Hx Sleep [...] Tobacco Use History Tobacco Use History - environmental web crawler: Tobacco Use History - environmental web crawler Tobacco Use Smoking Status Never smoker 01/13/25 13:38 Hx Tobacco Use No 01/13/25 13:38 Years Smoking Packs Smoked per Day Smoking Cessation Date was within the last 15 years Hx Smoking Cessation Date Hx Smoking Cessation Counseling Hematologic Medial History Hematologic Hx - environmental web crawler: Hematologic Medical Hx - 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' Hx of Blood Transfusion No 01/13/25 13:38 [...] confused, unrespo /Reproduction History /Reproductive History - environmental web crawler: /Reproductive Hx- environmental web crawler Hx Now Gestational Age (in weeks): EDC: Hx Hx Para Hx Section SAB Active Medications Active Medications: Current Medications Generic Name Dose Route Start Last Admin Trade Name Rachael PRN Reason Stop Dose Admin Lactated Ringer's [...] s 11/26/24 01/15/25 Rx release peg 3350-sod sulf,vfmnu-jqt-asm See Rx Instructions PO .COMPLEX #2 11/26/24 [...] MD Cosigner Signature: Date CC: ~ Signed [facility] Work Phone: Consult note Author Frederic Nicole [facility] Note Date/Time January 16, 2025 7:2 0am [facility] Medical Records Department [address] [place] [address] Anesthesia Postop Eval I 01/16/25 0719 MR#: [id number] Acct: [id number] Name: AMANDA GRUBBS Rep #:[id number] : 1970 54 From: Frederic Nicole PCP: Dr. Franky Pearson, DO Status:REG SDC Y Race: C Location: [place] [address] Anesthesia: Postop Eval I Current Vital Signs [...] Frederic Barney Signature: Date CC: ~ Signed [facility] Work Phone: Evaluation + Plan note Future Appointments Appointment Date:05/31/2021 08:30:00 AM Scheduled Provider:FRANKY PEARSON DO Location[facility] Appointment Type:PC OV Follow Up Appointment Date:06/20/2021 08:30:00 AM Scheduled Provider: Location:[facility] Appointment Type:US Breast Right Complete Future Scheduled Tests Radiology* US Breast Right Complete 06/20/21 [facility] Evaluation + Plan note Future Appointments Appointment Date:08/31/2021 08:30:00 AM Scheduled Provider:FRANKY PEARSON DO Location:[facility] Appointment Type:PC OV Follow Up Future Scheduled Tests Radiology* CT Thorax w/o Contrast 06/28/21 [facility] Evaluation + Plan note Future Appointments Appointment Date:08/31/2021 08:30:00 AM Scheduled Provider:FRANKY PEARSON DO Location:[facility] Appointment Type:PC OV Follow Up Future Scheduled Tests Radiology* MA Mammogram Diagnostic Bilateral w/o Juma 01/01/22 * US Breast Right Complete 01/01/22 [facility] Evaluation + Plan note Future Appointments Appointment Date:05/30/2022 09:00:00 AM Scheduled Provider:FRANKY PEARSON DO Location:[facility] Appointment Type:PC OV Future Scheduled [...] 08/22/21 * Complete Metabolic Panel 08/22/21 * [facility] Lab Send out (Blood Specimens) 11/22/21 Radiology* US Breast Right Limited 08/08/22 * CT Thorax w/o Contrast 06/07/22 * MA Mammogram Diagnostic Bilateral w/o Juma 01/01/22 [facility] Evaluation + Plan note Future Appointments Appointment Date:05/30/2022 09:00:00 AM Scheduled Provider:FRANKY PEARSON DO Location:[facility] Appointment Type:PC OV Diagnostic Tests Pending * Zinc Level 04/26/22 * Vitamin B1 (Thiamine), Whole Blood 04/26/22 Future Scheduled Tests Laboratory* Ferritin 11/22/21 * Folate Level 08/22/21 * Vitamin B12 Level 11/22/21 * Zinc Level 11/22/21 * [facility] Lab Send out (Blood Specimens) 11/22/21 Radiology* US Breast Right Limited 08/08/22 * CT Thorax w/o Contrast 06/07/22 * MA Mammogram Diagnostic Bilateral w/o Juma 01/01/22 [facility] Evaluation + Plan note Future Appointments Appointment Date:08/24/2022 08:00:00 AM Scheduled Provider:FRANKY PEARSON DO Location:[facility] Appointment Type:PC Wellness Annual Future Scheduled Tests Laboratory* Ferritin 11/22/21 * Folate Level 08/22/21 * Vitamin B12 Level 11/22/21 * Zinc Level 11/22/21 * [facility] Lab Send out (Blood Specimens) 11/22/21 Radiology* US Breast Right Limited 08/08/22 * CT Thorax w/o Contrast 06/23/23 * MA Mammogram Diagnostic Bilateral w/o Juma 01/01/22 [facility] Evaluation + Plan note Future Appointments Appointment Date:08/24/2022 08:00:00 AM Scheduled Provider:FRANKY PEARSON DO Location:[facility] Appointment Type: Wellness Annual Future Scheduled Tests Laboratory* Ferritin 11/22/21 * Vitamin B12 Level 11/22/21 * Zinc Level 11/22/21 * [facility] Lab Send out (Blood Specimens) 11/22/21 Radiology* CT Thorax w/o Contrast 06/23/23 * MA Mammogram Diagnostic Bilateral w/o Juma 01/01/22 [facility] Evaluation + Plan note Future Appointments Appointment Date:11/29/2022 08:00:00 AM Scheduled Provider:FRANKY PEARSON DO Location:[facility] Appointment Type: OV Future Scheduled Tests Laboratory* [...] 08/24/22 * Complete Metabolic Panel 08/24/22 * [facility] Lab Send out (Blood Specimens) 11/22/21 Radiology* US Breast Right Limited 02/09/23 * BD Bone Density DEXA Axial Skeleton 12/09/22 * CT Thorax w/o Contrast 06/23/23 * MA Mammogram Diagnostic Bilateral w/o Juma 01/01/22 * MA Mammogram Diagnostic Bilateral w/o Juma 02/09/23 [facility] Evaluation + Plan note Future Appointments Appointment Date:09/13/2022 08:00:00 AM Scheduled Provider: Location:[facility] Appointment Type:CV Procedure - AOH Echo Appointment Date:09/19/2022 07:45:00 AM Scheduled Provider: Location:[facility] Appointment Type:HL Plain Stress Test Appointment Date:11/29/2022 08:00:00 AM Scheduled Provider:FRANKY PEARSON DO Location:[facility] Appointment Type:PC OV Diagnostic Tests Pending * [...] Juma 02/09/23 [facility] Evaluation + Plan note Future Appointments Appointment Date:09/19/2022 07:45:00 AM Scheduled Provider: Location:[facility] Appointment Type:HL Plain Stress Test Appointment Date:11/29/2022 08:00:00 AM Scheduled Provider:FRANKY PEARSON DO Location:[facility] Appointment Type:PC OV Future Scheduled Tests Laboratory* [...] Juma 02/09/23 [facility] Evaluation note* Diagnosis Pre-diabetes- Primary Other abnormal [...] acute Back pain noneactive Maxillary sinusitis acute [facility] Work Phone: Evaluation note* Diagnosis Onset Date Resolution Status Maxillary sinusitis acute [facility] Work Phone: Evaluation noteNo assessment information available [facility] Work Phone: Evaluation note* Diagnosis Pre-diabetes- Primary Other abnormal glucose S/P bariatric surgery Weight gain Other symptoms concerning nutrition, metabolism, and development BMI 32.0-32.9,adult Class 1 obesity with serious comorbidity and body mass index (BMI) of 32.0 to 32.9 in adult, unspecified obesity type documented in this encounter [facility] Author Rock Pineda [facility] Note Date/Time January 16, 2025 6:4 0am [facility] Medical Records Department [address] [place] [address] History & Physical Exam 01/16/25 0638 MR#: [id number] Acct: [id number] Name: AMANDA GRUBBS Rep #:[id number] : 1970 54 From: Rock Pineda DO PCP: Dr. Franky Pearson DO Status:[facility] Location: [place] [address] HPI - General General Date of Admission: 01/16/25 Date of Service: 01/16/25 Chief Complaint: abdominal pain, bloating, N/V, bleeding HPI Narrative AMANDA GRUBBS, is a 54 F who presents with the Chief Complaint: abdominal pain, bloating, N/V, bleeding Gastric bypass 2018 hysterectomy 2015 total CCX 2002 - occasional alcohol - [...] shakes very little protein and fiber intake [facility] Medical History Kidney stones Wears [...] s 11/26/24 01/15/25 Rx release peg 3350-sod sulf,aklva-cwj-djp See Rx Instructions PO .COMPLEX #2 11/26/24 [...] rectal pain 30 grams 0RF peg 3350-sod sulf,qpsq-uvx-lrp 178.7-7.3-0.5 gram (Suflave) as directed for split [...] Franky Pearson DO; Rock Pineda DO~ Signed [facility] Work Phone: Hospital course Narrative No data available for this section [facility] Hospital Discharge instructions No data available for this section [facility] Hospital Discharge instructionsAmbulatory Orders* Urology Location: None [facility] Work Phone: Progress note No data available for this section [facility] Progress note Author Kiersten Wright [facility] Note Date/Time March 05, 2025 9:08am [facility] [address] [place] [address] OFFICE VISIT Date of Service: 03/05/25 MR#: [id number] Acct: [id number] Name: AMANDA GRUBBS Rep #: [id number] : 1970 Provider: ANA Wright Age/Sex: 54/F Location: [facility] Status: Signed Intake Vital Signs 01/29/25 09:18 02/06/25 08:21 03/05/25 08:41 Height 5 ft 3 in 5 ft 3 in 5 ft 3 in Weight: 168 lb 4 oz BMI 29.7 BP 123/83 H Respiration 16 Pulse 80 Temp 98.2 F Temp Source Temporal Pulse Oximetry (%) 97 Oxygen Delivery Method room air Intake Visit Reasons: 4 to 6 week follow up Chief Complaint: follow-up constipation Side Sawyer Required: No Accompanied by: Self Is patient in pain?: No Allergies No Known Allergies Allergy (Verified 03/05/25 08:35) Medications ?Medication ?Instructions ?Recorded ?Confirmed ?Type Diltiazem 2% / Lidocaine 5% #30 grams 11/26/2403/05/ 5 Rx ointment (compound) acetaminophen 325 mg tablet 325 mg PO ONCE PRN pain 03/05/25 History (Tylenol) bupropion HCl 75 mg tablet 75 mg PO TID 11/26/2403/05 History docusate sodium 100 mg capsule 100 mg PO BID #60 caps 11/26/24 03/05/25 Rx fexofenadine 60 mg tablet (Becca 60 mg PO BID PRN al lergy symptoms 11/26/24 03/05/25 History Allergy) lorazepam 0.5 mg tablet (Ativan) 0.25 mg PO DAILY PRN anxiety 11/26/24 03/05/25 History multivitamin 1 tab PO QDAY 11/26/2403/05 History omeprazole 40 mg capsule,delayed 40 mg PO QDAY #90 cap s 11/26/24 03/05/25 Rx release trazodone 50 mg tablet 25 mg PO QHS PRN 01/29/25 History peg 3350-sod sulf,zfjrx-ekr-rzp See Rx Instructions PO .COMPLEX #2 03/05/25 03/05/25 Rx 178.7-7.3-0.5-1.12-0.9 gram oral mL soln (Suflave) sod picosulf 10 mg-magnes 3.5 175 ml PO QAM 1 dose #35 0 mL 03/05/25 03/05/25 Rx gram-citric 12 gram/175 mL oral solution (Clenpiq) [facility] History Recurrent UTI (urinary tract infection) [...] caffeine: Yes HPI HPI Chief Complaint: follow-up constipation Details: OV 02/16/2025 54-year-old female with a history of gastric bypass surgery presenting with chronic constipation, gastric ulcer, and esophageal burning. The chronic constipation is likely multifactorial, coinciding with dietary habits, post-surgical changes, and escalation of GLP-1 therapy. Current management with increased dose omeprazole has shown subjective improvement in esophageal burning. The persistence of constipation necessitates further interventions. Patient Instructions: Decrease Mounjaro Continue Omeprazole 40mg daily Start Amitiza 8mcg once daily Continue stool softener BID Follow-up in 4-6 weeks and will schedule colonoscopy at that time and modify if needed - she discontinued Mounjaro 3 weeks ago - constipation is s a little bit better - now having a BM every 3-4 days - 2 episodes of significant constipation, straining and BRBPR - denies any rectal pain - reports she did not feel good on Amitiza - water intake overall is not great - she has increased her protein intake overall - started Miralax chews, 1 a day The patient is a 54-year-old female presenting with issues of constipation and symptoms suggesting an anal fissure. She reports experiencing improvement in bowel movements, now occurring every three to four days. However, she describes having two episodes of significant constipation with associated bright red bloodon the stool and upon wiping, indicative of an anal fissure. There is an absenceof rectal pain, though she describes a sensation sommer to pooping glass during bowel movements, which is characteristic of a fissure. The blood is mostly notedwith the initial hard stool passage. Her stools have been difficult to initiate but ease once the initial stool passes. The constipation has persisted despite cessation of Mounjaro and attempts with Amitiza, which was discontinued due to adverse side effects. She has been managing her symptoms currently with MiraLax chews, one per day, which she believes to be somewhat effective, although an increase to two chews daily has been recommended given her continued issues. Additional measures include dietarymodifications with an emphasis on increased intake, including proteins like steak and cheese, albeit with awareness of cheese's constipating potential. Past medical history includes gastric bypass surgery, and she is currently on multiple vitamin supplements due to concerns of deficiency post-surgery. Recent blood tests revealed low B12 levels at 248 and suboptimal vitamin D levels at 33. She had undergone treatment for a small gastric ulcer diagnosed previously, necessitating continued pantoprazole treatment. ROS Const Constitutional: Positive for fatigue and weakness; No fever(s) or weight change ENT ENT: No difficulty swallowing Gastro GI: Positive for bloating, constipation, heartburn, Blood in stool and nausea/dyspepsia; No abdominal pain, belching, change in bowel habits, change in stool character, coffee ground emesis, cramping, diarrhea, difficulty swallowing, feeling full early, excessive flatus, incontinent of stools, Vomiting blood/hematemesis, loose stools, Black,tarry stools, pain with swallowing, vomiting or other Musc Musculoskeletal: Positive for joint pain, muscle weakness, numbness, stiffness, tingling and Arthritis Skin Skin: Positive for dry skin; No yellowing of the eye or itchy eyes Neuro Neurology: Positive for dizziness, weakness, numbness, tingling and tremor(s) Psych Psychiatric: Positive for anxiety and Positive for depression Endo Endocrine: Positive for fatigue; No weight change Aller/Imm Allergy/Immunologic: No itchy eyes Jaxon/Lymp Hematologic/Lymphatic: Positive for easy bruising; No easy bleeding Exam Const General: cooperative, healthy appearing, no acute distress and well developed Nutritional Appearance: well nourished and overweight Orientation: alert and oriented x3 HENSC Head: normocephalic Ears: hearing grossly normal bilaterally Mouth: moist mucous membranes Teeth and gingiva: dentition normal Eyes Conjunctivae: conjunctivae normal Sclera: sclerae normal Neck Neck: normal visual inspection, full ROM and trachea midline Resp Effort & Inspection: normal respiratory effort, able to speak in complete sentences and symmetric chest movement Neuro General: patient alert and patient oriented x3 Cranial Nerves: other (CN's grossly intact, non-focal exam) Cognition: normal cognition Speech: speech normal Gait: normal gait Psych Appearance: grossly normal and well kempt Affect: normal affect Attitude: cooperative Thought Process: normal Assessment and Plan Assessment and Plan (1) Constipation: Status: Acute Plan: The patient is advised to increase the dose of MiraLax chews to two chews per day to facilitate more regular and softer bowel movements. In addition, dietary adjustments to include adequate fluid and fiber intake are recommended to improve stool consistency and frequency. The patient should monitor for any changes or persisting issues despite these changes. (2) Rectal bleeding: Status: Acute (3) Gastric ulcer: Status: Acute (4) Anal fissure: Status: Acute Plan: The anal fissure will be managed with continued application of diltiazem cream, which has been effective in the past. The patient is advised to apply diltiazem cream two times a day for optimal healing and symptom management. It is crucial to ensure stool softening and regular bowel movements to avoid further trauma tothe fissure. Medications: New peg 3350-sod sulf,arau-buf-ozv 178.7-7.3-0.5 gram (Suflave) Take as directed forsplit dose bowel prep 2 mL 0RF sod picosulf-mag ox-citric ac 10 mg-3.5 gram- 12 gram/175 mL (Clenpiq) administer approximately 5 hours before colonoscopy 175 mL PO QAM 350 mL 0RF 1 dose Discontinued lubiprostone (Amitiza) Discontinued Reason: Pt no longer taking 8 mcg PO BID 60 caps 1RF Plan 54-year-old female with a history of gastric bypass surgery presenting with constipation and symptoms suggestive of an anal fissure. The constipation has been partially alleviated with MiraLax chews, though episodes of hard stools andassociated bleeding continue, indicative of an anal fissure. She is also dealingwith ongoing nutritional deficiencies post gastric bypass surgery, including low-normal vitamin B12 and vitamin D, necessitating supplementation. Her previous history of a gastric ulcer is being managed with pantoprazole. Patient Instructions: Colon & EGD May 2025 - 2 day bowel prep May have a light breakfast and ight lunch 2 day sprior, begin clear liquids at 1pm 2 days prior drink 1/2 of Clenpiq 1 day prior at 0900 drink remaining Clenpiq and follow prep instructions for Suflave Continue Miralax chews, increase to 2 daily Increase water intake Continue PPI daily Continue use of Diltiazem/Lidocaine for treatment of anal fissure Coding Level of Care Code Off vis,est,level 3 Diagnoses Constipation K59.00 Rectal bleeding K62.5 Gastric ulcer K25.9 Anal fissure K60.2 Clinical Quality Measures Smoking Screening Smoking Status: Never smoker 03/05/25918 <Electronically signed by Kiersten PEREZ> Date _ Kiersten PEREZ Cosigner Signature: Date (if applicable) CC: ~ [facility] Work Phone: Reason for referral (narrative)No reason for referral information availableDe[facility] Work Phone: Summary Purpose Family History No [...] FoundDocuments on File Type Date Recorded Patient Tank Calibrator Expl anation Advance Directives and Living Will Power of Health And Wellness Manager Latest Code Status on File Code Status Date Activated Date Inactivated Comments Full Code 08/30/2018 12:11 PM 08/30/2018 4:55 PM Full Code 04/09/2018 8:24 AM 04/10/2018 2:44 PM Full Code 04/08/2018 7:00 PM 04/09/2018 8:24 AM Full Code 04/08/2018 11:06 AM 04/08/2018 6:41 PM Full Code 11/27/2017 7:08 AM 11/27/2017 4:38 PM Documents on File Type Date Recorded Patient Tank Calibrator Expl anation ACP-Advance Directive ACP-Power of Health And Wellness Manager Advance Directive Response Recorded Date/ Time Do you have a Healthcare Power of Health And Wellness Manager? Yes January 13, 2025 1:38pm Name of Medical Power of Health And Wellness Manager January 13, 2025 1:38pm Hospital Course Note Discharge Summary Amanda Hood [...] a 47 y.o. female who presented to [facility] on 04/08/2018 for elective LRYGB. She [...] NOTE DATE OF PROCE DURE: 04/08/2018 SURGEON: Rolan Jordan COMMERCIAL LOAN CLOSER: Ruben Truong MD PREOPERATIVE DIAGNOSIS: ? SANDY [...] NOTE DATE OF PROCE DURE: 04/08/2018 SURGEON: Rolan Jordan COMMERCIAL LOAN CLOSER: Ruben Truong MD PREOPERATIVE DIAGNOSIS: ? SANDY [...] 9:09am Segmental and somatic dysfunction of pel ricyk region January 05, 2025 9:09am Segmental and [...] Room 5 February 06, 2025 8: 39am Chief Complaint Admit Date CONSTIPATION BLOODY DIARRHEA November 26, 2024 9:28am BACK PAIN December 18, 2024 11:5 6am BACK PAIN January 05, 2025 9:09 am Test Result January 29, 2025 9: 03am CONCERN FOR UTI February 02, 2025 1: 33pm RIGHT FOOT February 06, 2025 8: 20am Room 5 February 06, 2025 8: 39am 4 to 6 week follow up March 05 8:27am SANDY March 05, 2025 7:59pm Reason for Visit Admit Date Bloating November [...] Rectal pain January 16, 2025 5:1 7am Bloating January 29, 2025 9: 03am Constipation January 29, 2025 9: 03am UTI (urinary tract infection) January 1:33pm Hallux valgus (acquired), right foot Jan us2024 8:20am Metatarsalgia of right foot February 06, 2025 8:20am Osteoarthritis of right knee January 8:20am Tendinitis of right foot February 06 8:20am Anal fissure March 05, 2025 8:27am Constipation March 05, 2025 8:27am Gastric ulcer March 05, 2025 8:27am Rectal bleeding March 05, 2025 8:27am Additional Source Comments INFORMATION SOURCE (unrecogn ized section and content) DATE CREATED AUTHOR 05/18/[address] [facility] DATE CREATED AUTHOR AUTHOR'S ORGANIZ ATION 03/31/2019 [facility] DATE CREATED AUTHOR AUTHOR'S ORGANIZ ATION 01/01/2020 [facility] DATE CREATED AUTHOR AUTHOR'S ORGANIZ ATION 02/03/2020 [facility] DATE CREATED AUTHOR AUTHOR'S ORGANIZ ATION 03/16/2020 [facility] DATE CREATED AUTHOR AUTHOR'S ORGANIZ ATION 09/21/2022 [facility] DATE CREATED AUTHOR AUTHOR'S ORGANIZ ATION 01/17/2023 [facility] DATE CREATED AUTHOR AUTHOR'S ORGANIZ ATION 04/05/2025 [facility] Care Team (unrecognized sect ion and content) Personnel Name: FRANKY PEARSON DO Address: Address: [address] [place] [address] Care Team Personnel Name: FRANKY PEARSON DO Position: P4 Physician - Primary Care Member Role: Primary Care Physician Address: Address: [address] [place] [address]- Care Team Related Persons Name: JIMMY GRUBBS Address: [address] [address] [place], [place] [id number] Address: [address] [address] [place], [place] [id number] Name: MELBA GRUBBS Address: [address] [address] [place], [place] [id number] [place] Address: Temporary [address] [place], [place] [id number] Name: ROMIE GILLES Address: [address] [address] [place], [place] [id number] Care Team Personnel Name: FRANKY PEARSON DO Position: P4 Physician - Primary Care Med Service: Active Provider Member Role: Primary Care Physician Address: Address: [address] [place] [address]- [place] Care Team Related Persons Name: JIMMY GRUBBS Address: Home [address] [place], [place] [id number] Address: [address]porary [address] [place], [place] [id number] Name: MELBA GRUBBS Address: [address] [address] [place], [place] [id number] [place] Address: [address] [address] [place], [place] [id number] Name: GILLES GRUBBS Address: [address] [address] [place], [place] [id number] Care Team Personnel Name: FRANKY PEARSON DO Position: P4 Physician - Primary Care Member Role: Primary Care Physician Address: Address: [address] [place] [address]- Care Team Related Persons Name: MELBA GRUBBS Address: Home [address] [place], [place] [id number] [place] Address: [address] [address] [place], [place] [id number] Name: GILLES GRUBBS Address: [address] [address] [place], [place] [id number] Care Team Personnel Name: FRANKY PEARSON DO Position: P4 Physician - Primary Care Member Role: Primary Care Physician Address: Address: [address] [place] [address]- Care Team Related Persons Name: MELBA GRUBBS Address: [address] [address] [place], [place] [id number] [place] Address: [address] [address] [place], [place] [id number] Name: GILLES GRUBBS Address: [address] [address] [place], [place] [id number] Care Team Personnel Name: FRANKY PEARSON DO Position: P4 Physician - Primary Care Member Role: Primary Care Physician Address: Address: [address] [facility] [place], [place] [id number] [place] [address] Care Team Related Persons Name: MELBA GRUBBS Address: [address] [address] [place], [place] [id number] Address: [address]porary [address] [place], [place] [id number] Name: GILLES GRUBBS Address: [address] [address] [place], [place] [phone] Reason for Visit (unrecogniz ed section and content) Reason Comments Bariatrics Post Op Follow-up DE POP 03/12 02/26 Reason Onset Date Comments Appointment 01/16/2023 Reason Comments Bariatrics Post Op Follow-up POP D/E FU Care Teams (unrecognized sec tion and content) 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 Rio Aburto DO Family Provider Active Dr. Franky Pearson DO Primary Care Provider Active Team Status: Inactive Member Role Status Dates Dr. 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 Franky Pearson DO Primary Care Provider Active Start: September 25, 2024 End: September 25, 2024 Dr. Franky Pearson DO Referring Provider Active Start: September 25, 2024 End: September 25, 2024 Dr. Yessi cMqueen DC Attending Provider Active S tart: September [...] February 02, 2025 End: February 02, 2025 Angus Villalobos PA, PA Attending Provider Active Start: February 02, 2025 End: February 02, 2025 Team Status: Inactive Member Role/Relationship Status Dates Dr. Franky Pearson DO Primary Care Provider Active Start: February 02, 2025 End: February 02, 2025 Angus HURT, PA Attending Provider Active Start: February 02, 2025 End: February 02, 2025 Team Status: Active Member Role/Relationship Status Dates Dr. Franky Pearson DO Primary Care Provider Active Start: February 06, 2025 Dr. Franky Pearson DO Referring Provider Active Start: February 06, 2025 JADEN SkinnerC Attending Provider Active Start: February 06, 2025 [...] 2025 End: February 06, 2025 Team Status: Active Member Role/Relationship Status Dates Dr. Frnaky Pearson DO Primary care physician Active Team Status: Inactive Member Role/Relationship Status Dates Dr. Franky Pearson DO Primary care physician Active Start: November 26, 2024 End: November 26, 2024 Dr. Franky Pearson DO Referring Provider Active Start: November 26, 2024 End: November 26, 2024 ANA Rosenthal Attending physician Active Start: November 26, 2024 End: November 26, 2024 Team Status: Inactive Member Role/Relationship Status Dates Dr. Franky Pearson DO Primary care physician Active Start: December 18, 2024 End: December 18, 2024 Dr. Franky Pearson DO Referring Provider Active Start: December 18, 2024 End: December 18, 2024 Dr. Yessi Mcqueen DC Attending physician Active Start: December 18, 2024 End: December 18, 2024 Team Status: Inactive Member Role/Relationship Status Dates Dr. Franky Pearson DO Primary care physician Active Start: January 05, 2025 End: January 05, 2025 Dr. Franky Pearson DO Referring Provider Active Start: January 05, 2025 End: January 05, 2025 Dr. Yessi Mcqueen DC Attending physician Active Start: January 05, 2025 End: January 05, 2025 Team Status: Inactive Member Role/Relationship Status Dates Dr. Franky Pearson DO Primary care physician Active Start: January 16, 2025 End: January 16, 2025 Dr. Franky Pearson DO Referring Provider Active Start: January 16, 2025 End: January 16, 2025 Dr. Rock Pineda DO Attending physician Active Start: January 16, 2025 End: January 16, 2025 Team Status: Active Member Role/Relationship Status Dates Dr. Franky Pearson DO Primary care physician Active Start: January 16, 2025 Dr. Franky Pearson DO Referring Provider Active Start: January 16, 2025 Dr. Rock Pineda DO Attending physician Active Start: January 16, 2025 Dr. Rock Pineda DO Nurse Practitioner Active Start: January 16, 2025 Team Status: Inactive Member Role/Relationship Status Dates Dr. Franky Pearson DO Primary care physician Active Start: January 29, 2025 End: January 29, 2025 Dr. Franky Pearson DO Referring Provider Active Start: January 29, 2025 End: January 29, 2025 ANA Rosenthal Attending physician Active Start: January 29, 2025 End: January 29, 2025 Team Status: Inactive Member Role/Relationship Status Dates Dr. Franky Pearson DO Primary care physician Active Start: February 02, 2025 End: February 02, 2025 Dr. Franky Pearson DO Referring Provider Active Start: February 02, 2025 End: February 02, 2025 BLU Ho Attending physician Active Start: February 02, 2025 End: February 02, 2025 Team Status: Inactive Member Role/Relationship Status Dates Dr. Franky Pearson DO Primary care physician Active Start: February 02, 2025 End: February 02, 2025 BLU Ho Attending physician Active Start: February 02, 2025 End: February 02, 2025 Team Status: Inactive Member Role/Relationship Status Dates Dr. Franky Pearson DO Primary care physician Active Start: February 06, 2025 End: February 06, 2025 Dr. Franky Pearson DO Referring Provider Active Start: February 06, 2025 End: February 06, 2025 ANA Skinner Attending physician Active Start: February 06, 2025 End: February 06, 2025 Team Status: Inactive Member Role/Relationship Status Dates Dr. Franky Pearson DO Primary care physician Active Start: February 06, 2025 End: February 06, 2025 Dr. Allan Coleman MD Attending physician Active Start: February 06, 2025 End: February 06, 2025 Team Status: Inactive Member Role/Relationship Status Dates Dr. Franky Pearson DO Primary care physician Active Start: February 19, 2025 End: February 19, 2025 Dr. Franky Pearson DO Attending physician Active Start: February 19, 2025 End: February 19, 2025 Dr. Franky Pearson DO Referring Provider Active Start: February 19, 2025 End: February 19, 2025 Team Status: Inactive Member Role/Relationship Status Dates Dr. Franky Pearson DO Primary care physician Active Start: March 05, 2025 End: March 05, 2025 Dr. Franky Pearson DO Referring Provider Active Start: March 05, 2025 End: March 05, 2025 ANA Rosenthal Attending physician Active Start: March 05, 2025 End: March 05, 2025 Team Status: Active Member Role/Relationship Status Dates Dr. Franky Pearson DO Primary care physician Active Start: March 05, 2025 Dr. Franky Pearson DO Attending physician Active Start: March 05, 2025 Dr. Franky Pearson DO Referring Provider Active Start: March 05, 2025 FOR RECORDS PERTAINING TO PATIENTS [...] BE BASED ON THE PRIMARY CLINICAL RECORDS. [facility] [employer] provides no warranty or guarantee of the accuracy or completeness of information in this document.
== END | disposition home or self-care (01) ==
LOC: MTRAD 13:56
PROVIDERS: PCP Student in an Organized Health Care Education/Training Program; Referring Provider Physician Assistant; Visit Provider Physician Assistant
DX: S00.452A Superficial foreign body of left ear, initial encounter (principal); L08.9 Local infection of the skin and subcutaneous tissue, unspecified
CPT/HCPCS: 70130

== ENCOUNTER → 2025-05-12 | Outpatient (CLI) | payer OTHER, SELFPAY | END | disposition home or self-care (01) | LOC: LABSPEC 15:01 | PROVIDERS: PCP Student in an Organized Health Care Education/Training Program; Referring Provider Otolaryngology; Visit Provider Otolaryngology | DX: H60.00 Abscess of external ear, unspecified ear (principal) | CPT/HCPCS: 87070; 87077; 87186; 87205 ==

== ENCOUNTER 2025-05-15 05:34 | Day surgery (SDC) | payer OTHER, SELFPAY ==
--- NOTE | 2025-05-12 14:54 | PAT.ANESEVAL ---
Pre-Assessment Diagnosis/Proposed Procedure Planned Operative Procedure(s): COLONOSCOPY, EGD Anesthesia History Anesthesia History - process lead: Anesthesia History - process lead Hx Hospitalization No 05/12/25 10:34 Any Problems With Anesthesia Yes: N/V 05/12/25 10:34 Cholinesterase deficiency No 05/12/25 10:34 You/Your Family Experience No 05/12/25 10:34 fever (hyperthermia) with Relationship Recent Exposure to Contagious No 01/16/25 05:54 Disease Does patient have nerve No 05/12/25 10:34 stimulator Patient instructed to have device shut off --Does patient have Pacemaker or ICD? When Was Last Pacemaker Check QUESTION #4 FULL TEXT: You/Your Family Experience fever (hyperthermia) with Anesthesia Last Oral Intake Last Oral intake: Last Oral Intake NPO since Meds taken in AM with sips of water? Meds patient instructed to take am of surgery PONV PONV - process lead: PONV - process lead Female Yes 05/12/25 10:34 HX of Motion Sickness Yes 05/12/25 10:34 HX of N/V After Surgery Yes 05/12/25 10:34 Non-Smoker Yes 05/12/25 10:34 Duration of Surgery greater No 05/12/25 10:34 than 60 minutes Number of Risk Factors 4 05/12/25 10:34 PONV Score Severe Risk 05/12/25 10:34 Height & Weight Height & Weight: Anesthesia: Height & Weight Height 5 ft 3 in 03/05/25 08:41 Respiratory Assessment Respiratory Assessment - process lead: Respiratory Tract Infection Hx - process lead Hx Respiratory Tract Infection No 05/12/25 10:34 STOP Sleep Apnea STOP Sleep Apnea - process lead: STOP Sleep Apnea - process lead Hx Hypertension No 05/12/25 10:34 Hx Sleep Apnea Yes: NEW DX, NO MACHINE YET 05/12/25 10:34 CPAP No 05/12/25 10:34 BIPAP No 05/12/25 10:34 Do you snore loudly (louder than talking or can be heard Do you often feel tired/ fatigued/ sleepy during daytime? Has anyone observed you stop breathing during sleep? STOP Results Positive 05/12/25 10:34 QUESTION #5 FULL TEXT : Do you snore loudly (louder than talking or can be heard through closed doors)? 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 Specify any problems Hx of Preganancy in last 3 No 05/12/25 10:34 Months Nurse Filling Out Transfusion [email or web address] 05/12/25 10:34 & Questions: Date: 05/12/25 05/12/25 10:34 Time: 10:37 05/12/25 10:34 Patient unable to answer at this time (ie. confused, unrespo /Reproduction History /Reproductive History - process lead: /Reproductive Hx- process lead Hx Now Gestational Age (in weeks): EDC: Hx Hx Para Hx Section SAB Does the father of the baby or his family experience fever w Father of the baby Malignant Hypertension history comment [facility] Medical History (Updated 05/12/25 @ 10:42 by Elver Bush) Open wound Foreign body of left external ear with infection Recurrent UTI (urinary tract infection) Kidney stones Wears glasses Wears partial dentures Depression Thyroid disease Back pain Migraine headache Non-smoker History of IBS Gastric reflux History of stress test History of echocardiogram Cardiology follow-up encounter Lower respiratory tract infection Bacterial sinusitis Anginal pain Somatic dysfunction of lower extremity Psoriatic arthritis Prediabetes Family history of ischemic heart disease Anxiety Secondary insomnia Iron deficiency B12 deficiency Major depression in remission Hypothyroid Anemia Acute pharyngitis, unspecified Aphthous ulcer of mouth delivery delivered Home Medications Medication Instructions Recorded Last Taken Type Diltiazem 2% / Lidocaine 5% #30 grams 11/26/24 Unknown Rx ointment (compound) acetaminophen 325 mg tablet 325 mg PO ONCE PRN pain 11/26/24 01/15/25 History (Tylenol) bupropion HCl 75 mg tablet 75 mg PO TID 11/26/24 01/15/25 History fexofenadine 60 mg tablet (Becca 60 mg PO BID PRN allergy symptoms 11/26/24 01/15/25 History Allergy) lorazepam 0.5 mg tablet (Ativan) 0.25 mg PO DAILY PRN anxiety 11/26/24 01/15/25 History multivitamin 1 tab PO QDAY 11/26/24 01/14/25 History omeprazole 40 mg capsule,delayed 40 mg PO QDAY #90 caps 11/26/24 01/15/25 Rx release ondansetron HCl 4 mg tablet 4 mg PO Q4H PRN nausea and 03/05/25 Unknown Rx vomiting #5 tabs peg 3350-sod sulf,[id number] See Rx Instructions PO .COMPLEX #2 03/05/25 Unknown Rx 178.7-7.3-0.5-1.12-0.9 gram oral mL soln (Suflave) sod picosulf 10 mg-magnes 3.5 175 ml PO QAM 1 dose #350 mL 03/05/25 Unknown Rx gram-citric 12 gram/175 mL oral solution (Clenpiq) levofloxacin 500 mg tablet 500 mg PO DAILY #10 tabs 05/11/25 Unknown Rx docusate sodium 100 mg capsule 100 mg PO BID PRN constipation 05/12/25 Unknown History tirzepatide 5 mg/0.5 mL 5 mg subcut QWEEK 05/12/25 04/19/25 History subcutaneous pen injector (Mounjaro) Allergy/AdvReac Type Severity Reaction Status Date / Time No Known Allergies Allergy Verified 03/05/25 08:35 Family History Unknown Heart disease Cancer Kidney disease Breast cancer Lung cancer CHF (congestive heart failure) Father Myocardial infarction Brother Myocardial infarction Surgical History History of endometrial ablation History of colonoscopy H/O: hysterectomy Hx of cholecystectomy H/O tubal ligation History of weight loss surgery Social History Smoking Status: Never smoker second hand exposure: Yes alcohol intake: current substance use type: does not use caffeine: Yes Audit: Pertinent Findings Pertinent Findings EKG Perinent findings: 05/05/2024. Sinus rhythm within normal limits. Echo (EF%) pertinent findings: February 15, 2024. EF of 55%. No aortic stenosis noted. Consult pertinent findings: 05/05/2024. Dr. Hollingsworth. 1. Anginal pain-symptoms are somewhat atypical. Episodic and unpredictable. Lasting 1 to 2 years. Her last calcium score was 0. And the negative stress test was done 18 months ago. Plan for a coronary CTA. 2. Family history of ischemic heart disease-in brother and father. 3. Hypothyroid on replacement. Recommendation Anesthesia Recommendation Anesthesia recommendation: F/U recommended (Last cardiology visit, Dr. Hollingsworth recommended a coronary CTA. Was this ever done? And can we get the results?)
--- NOTE | 2025-05-13 07:41 | PAT.ANESEVAL ---
Pre-Assessment Diagnosis/Proposed Procedure Planned Operative Procedure(s): COLONOSCOPY, EGD Anesthesia History Anesthesia History - lead software architect: Anesthesia History - lead software architect Hx Hospitalization No 05/12/25 10:34 Any Problems With Anesthesia Yes: N/V 05/12/25 10:34 Cholinesterase deficiency No 05/12/25 10:34 You/Your Family Experience No 05/12/25 10:34 fever (hyperthermia) with Relationship Recent Exposure to Contagious No 01/16/25 05:54 Disease Does patient have nerve No 05/12/25 10:34 stimulator Patient instructed to have device shut off --Does patient have Pacemaker or ICD? When Was Last Pacemaker Check QUESTION #4 FULL TEXT: You/Your Family Experience fever (hyperthermia) with Anesthesia Last Oral Intake Last Oral intake: Last Oral Intake NPO since Meds taken in AM with sips of water? Meds patient instructed to take am of surgery PONV PONV - lead software architect: PONV - lead software architect Female Yes 05/12/25 10:34 HX of Motion Sickness Yes 05/12/25 10:34 HX of N/V After Surgery Yes 05/12/25 10:34 Non-Smoker Yes 05/12/25 10:34 Duration of Surgery greater No 05/12/25 10:34 than 60 minutes Number of Risk Factors 4 05/12/25 10:34 PONV Score Severe Risk 05/12/25 10:34 Height & Weight Height & Weight: Anesthesia: Height & Weight Height 5 ft 3 in 03/05/25 08:41 Respiratory Assessment Respiratory Assessment - lead software architect: Respiratory Tract Infection Hx - lead software architect Hx Respiratory Tract Infection No 05/12/25 10:34 STOP Sleep Apnea STOP Sleep Apnea - lead software architect: STOP Sleep Apnea - lead software architect Hx Hypertension No 05/12/25 10:34 Hx Sleep Apnea Yes: NEW DX, NO MACHINE YET 05/12/25 10:34 CPAP No 05/12/25 10:34 BIPAP No 05/12/25 10:34 Do you snore loudly (louder than talking or can be heard Do you often feel tired/ fatigued/ sleepy during daytime? Has anyone observed you stop breathing during sleep? STOP Results Positive 05/12/25 10:34 QUESTION #5 FULL TEXT : Do you snore loudly (louder than talking or can be heard through closed doors)? 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 Specify any problems Hx of Preganancy in last 3 No 05/12/25 10:34 Months Nurse Filling Out Transfusion [email or web address] 05/12/25 10:34 & Questions: Date: 05/12/25 05/12/25 10:34 Time: 10:37 05/12/25 10:34 Patient unable to answer at this time (ie. confused, unrespo /Reproduction History /Reproductive History - lead software architect: /Reproductive Hx- lead software architect Hx Now Gestational Age (in weeks): EDC: Hx Hx Para Hx Section SAB Does the father of the baby or his family experience fever w Father of the baby Malignant Hypertension history comment [facility] Medical History (Updated 05/12/25 @ 10:42 by Elver Bush) Open wound Foreign body of left external ear with infection Recurrent UTI (urinary tract infection) Kidney stones Wears glasses Wears partial dentures Depression Thyroid disease Back pain Migraine headache Non-smoker History of IBS Gastric reflux History of stress test History of echocardiogram Cardiology follow-up encounter Lower respiratory tract infection Bacterial sinusitis Anginal pain Somatic dysfunction of lower extremity Psoriatic arthritis Prediabetes Family history of ischemic heart disease Anxiety Secondary insomnia Iron deficiency B12 deficiency Major depression in remission Hypothyroid Anemia Acute pharyngitis, unspecified Aphthous ulcer of mouth delivery delivered Home Medications Medication Instructions Recorded Last Taken Type Diltiazem 2% / Lidocaine 5% #30 grams 11/26/24 Unknown Rx ointment (compound) acetaminophen 325 mg tablet 325 mg PO ONCE PRN pain 11/26/24 01/15/25 History (Tylenol) bupropion HCl 75 mg tablet 75 mg PO TID 11/26/24 01/15/25 History fexofenadine 60 mg tablet (Becca 60 mg PO BID PRN allergy symptoms 11/26/24 01/15/25 History Allergy) lorazepam 0.5 mg tablet (Ativan) 0.25 mg PO DAILY PRN anxiety 11/26/24 01/15/25 History multivitamin 1 tab PO QDAY 11/26/24 01/14/25 History omeprazole 40 mg capsule,delayed 40 mg PO QDAY #90 caps 11/26/24 01/15/25 Rx release ondansetron HCl 4 mg tablet 4 mg PO Q4H PRN nausea and 03/05/25 Unknown Rx vomiting #5 tabs peg 3350-sod [id number] See Rx Instructions PO .COMPLEX #2 03/05/25 Unknown Rx 178.7-7.3-0.5-1.12-0.9 gram oral mL soln (Suflave) sod picosulf 10 mg-magnes 3.5 175 ml PO QAM 1 dose #350 mL 03/05/25 Unknown Rx gram-citric 12 gram/175 mL oral solution (Clenpiq) levofloxacin 500 mg tablet 500 mg PO DAILY #10 tabs 05/11/25 Unknown Rx docusate sodium 100 mg capsule 100 mg PO BID PRN constipation 05/12/25 Unknown History tirzepatide 5 mg/0.5 mL 5 mg subcut QWEEK 05/12/25 04/19/25 History subcutaneous pen injector (Mounjaro) Allergy/AdvReac Type Severity Reaction Status Date / Time No Known Allergies Allergy Verified 03/05/25 08:35 Family History Unknown Heart disease Cancer Kidney disease Breast cancer Lung cancer CHF (congestive heart failure) Father Myocardial infarction Brother Myocardial infarction Surgical History History of endometrial ablation History of colonoscopy H/O: hysterectomy Hx of cholecystectomy H/O tubal ligation History of weight loss surgery Social History Smoking Status: Never smoker second hand exposure: Yes alcohol intake: current substance use type: does not use caffeine: Yes Audit: Pertinent Findings HISTORY of Pertinent Findings History of Pertinent Findings: EKG Pertinent Findings EKG Perinent findings 05/05/2024. Sinus rhythm 05/12/25 15:02 within normal limits. Echo Pertinent Findings Echo (EF%) pertinent findings February 15, 2024. EF of 55 05/12/25 15:02 %. No aortic stenosis noted . Consult Pertinent Findings Consult pertinent findings 05/05/2024. Dr. Hollingsworth. 05/12/25 15:06 1. Anginal pain-symptoms are somewhat atypical. Episodic and unpredictable. Lasting 1 to 2 years. Her last calcium score was 0. And the negative stress test was done 18 months ago. Plan for a coronary CTA. 2. Family history of ischemic heart disease-in brother and father. 3. Hypothyroid on replacement. Recommendation Anesthesia Recommendation Anesthesia recommendation: OPTIMIZED for anesthesia
--- NOTE | 2025-05-13 12:09 | PAT.ANESEVAL ---
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 When Was Last Pacemaker Check QUESTION #4 FULL TEXT: You/Your Family Experience fever (hyperthermia) with Anesthesia Last Oral Intake Last Oral intake: Last Oral Intake NPO since Meds taken in AM with sips of water? Meds patient instructed to take am of surgery PONV PONV - supervisor fabrication department: PONV - supervisor fabrication department Female Yes 05/12/25 10:34 HX of Motion Sickness Yes 05/12/25 10:34 HX of N/V After Surgery Yes 05/12/25 10:34 Non-Smoker Yes 05/12/25 10:34 Duration of Surgery greater No 05/12/25 10:34 than 60 minutes Number of Risk Factors 4 05/12/25 10:34 PONV Score Severe Risk 05/12/25 10:34 Height & Weight Height & Weight: Anesthesia: Height & Weight Height 5 ft 3 in 03/05/25 08:41 Respiratory Assessment Respiratory Assessment - supervisor fabrication department: Respiratory Tract Infection Hx - supervisor fabrication department Hx Respiratory Tract Infection No 05/12/25 10:34 STOP Sleep Apnea STOP Sleep Apnea - supervisor fabrication department: STOP Sleep Apnea - supervisor fabrication department Hx Hypertension No 05/12/25 10:34 Hx Sleep Apnea Yes: NEW DX, NO MACHINE YET 05/12/25 10:34 CPAP No 05/12/25 10:34 BIPAP No 05/12/25 10:34 Do you snore loudly (louder than talking or can be heard Do you often feel tired/ fatigued/ sleepy during daytime? Has anyone observed you stop breathing during sleep? STOP Results Positive 05/12/25 10:34 QUESTION #5 FULL TEXT : Do you snore loudly (louder than talking or can be heard through closed doors)? Tobacco Use History Tobacco Use History - supervisor fabrication department: Tobacco Use History - supervisor fabrication department Tobacco Use Smoking Status Never smoker 05/12/25 10:34 Hx Tobacco Use No 05/12/25 10:34 Years Smoking Packs Smoked per Day Smoking Cessation Date was within the last 15 years Hx Smoking Cessation Date Hx Smoking Cessation Counseling Hematologic Medial History Hematologic Hx - supervisor fabrication department: Hematologic Medical Hx - incident response analyst Hx of Blood Transfusion No 05/12/25 10:34 Hx of Transfusion in last 3 No 05/12/25 10:34 Months Date of Last Transfusion (if within last 3 months) Ever experience any problems No 05/12/25 10:34 with transfusion(s)? Specify any problems Hx of Preganancy in last 3 No 05/12/25 10:34 Months Nurse Filling Out Transfusion [email or web address] 05/12/25 10:34 & Questions: Date: 05/12/25 05/12/25 10:34 Time: 10:37 05/12/25 10:34 Patient unable to answer at this time (ie. confused, unrespo /Reproduction History /Reproductive History - supervisor fabrication department: /Reproductive Hx- supervisor fabrication department Hx Now Gestational Age (in weeks): EDC: Hx Hx Para Hx Section SAB Does the father of the baby or his family experience fever w Father of the baby Malignant Hypertension history comment [facility] Medical History (Updated 05/12/25 @ 10:42 by Elver Bush) Open wound Foreign body of left external ear with infection Recurrent UTI (urinary tract infection) Kidney stones Wears glasses Wears partial dentures Depression Thyroid disease Back pain Migraine headache Non-smoker History of IBS Gastric reflux History of stress test History of echocardiogram Cardiology follow-up encounter Lower respiratory tract infection Bacterial sinusitis Anginal pain Somatic dysfunction of lower extremity Psoriatic arthritis Prediabetes Family history of ischemic heart disease Anxiety Secondary insomnia Iron deficiency B12 deficiency Major depression in remission Hypothyroid Anemia Acute pharyngitis, unspecified Aphthous ulcer of mouth delivery delivered Home Medications Medication Instructions Recorded Last Taken Type Diltiazem 2% / Lidocaine 5% #30 grams 11/26/24 Unknown Rx ointment (compound) acetaminophen 325 mg tablet 325 mg PO ONCE PRN pain 11/26/24 01/15/25 History (Tylenol) bupropion HCl 75 mg tablet 75 mg PO TID 11/26/24 01/15/25 History fexofenadine 60 mg tablet (Becca 60 mg PO BID PRN allergy symptoms 11/26/24 01/15/25 History Allergy) lorazepam 0.5 mg tablet (Ativan) 0.25 mg PO DAILY PRN anxiety 11/26/24 01/15/25 History multivitamin 1 tab PO QDAY 11/26/24 01/14/25 History omeprazole 40 mg capsule,delayed 40 mg PO QDAY #90 caps 11/26/24 01/15/25 Rx release ondansetron HCl 4 mg tablet 4 mg PO Q4H PRN nausea and 03/05/25 Unknown Rx vomiting #5 tabs peg 3350-sod [id number] See Rx Instructions PO .COMPLEX #2 03/05/25 Unknown Rx 178.7-7.3-0.5-1.12-0.9 gram oral mL soln (Suflave) sod picosulf 10 mg-magnes 3.5 175 ml PO QAM 1 dose #350 mL 03/05/25 Unknown Rx gram-citric 12 gram/175 mL oral solution (Clenpiq) levofloxacin 500 mg tablet 500 mg PO DAILY #10 tabs 05/11/25 Unknown Rx docusate sodium 100 mg capsule 100 mg PO BID PRN constipation 05/12/25 Unknown History tirzepatide 5 mg/0.5 mL 5 mg subcut QWEEK 05/12/25 04/19/25 History subcutaneous pen injector (Mounjaro) Allergy/AdvReac Type Severity Reaction Status Date / Time No Known Allergies Allergy Verified 03/05/25 08:35 Family History Unknown Heart disease Cancer Kidney disease Breast cancer Lung cancer CHF (congestive heart failure) Father Myocardial infarction Brother Myocardial infarction Surgical History History of endometrial ablation History of colonoscopy H/O: hysterectomy Hx of cholecystectomy H/O tubal ligation History of weight loss surgery Social History Smoking Status: Never smoker second hand exposure: Yes alcohol intake: current substance use type: does not use caffeine: Yes Audit: Pertinent Findings HISTORY of Pertinent Findings History of Pertinent Findings: EKG Pertinent Findings EKG Perinent findings 05/05/2024. Sinus rhythm 05/12/25 15:02 within normal limits. Echo Pertinent Findings Echo (EF%) pertinent findings February 15, 2024. EF of 55 05/12/25 15:02 %. No aortic stenosis noted . Consult Pertinent Findings Consult pertinent findings 05/05/2024. Dr. Hollingsworth. 05/12/25 15:06 1. Anginal pain-symptoms are somewhat atypical. Episodic and unpredictable. Lasting 1 to 2 years. Her last calcium score was 0. And the negative stress test was done 18 months ago. Plan for a coronary CTA. 2. Family history of ischemic heart disease-in brother and father. 3. Hypothyroid on replacement. Pertinent Findings Additional pertinent findings: CT angiography. 06/13/2024. Demonstrates no coronary artery plaquing present. Recommendation Anesthesia Recommendation Anesthesia recommendation: OPTIMIZED for anesthesia
[2025-05-15] VITALS (8 sets, daily range): BP systolic 101–132; BP diastolic 67–86; PULSE 59–78; RESP 14–16; TEMP 36.3–36.6; O2SAT 93–98; BMI 30.4
--- OUTSIDE RECORDS SUMMARY | 2025-05-15 05:38 | XMS RPT_ITS | CCD ---
Author Organization [facility] CliniSypr Care Team Providers Care Terrazzo Laborer Name Role Phone Franky Pearosn Primary Care Provider Unavailabl e BEDDELADAM Varner Admitting Unavailable BEDDELLADAM Attending Unavailable AA REQUESTED, NEW Primary Care Unavailable LANIE LUNA Consulting Unavailable NANDINI VILLEGAS Consulting Unavailable BARBARADELLADAM Admitting Unavailable BEDDELLADAM Attending Unavailable AA REQUESTED, NEW Primary Care Unavailable KATHERINE CANTOR E, DIRECTOR OF CONSERVATION Admitting Unavaila ble KATHERINE CANTOR E, DIRECTOR OF CONSERVATION Attending Unavaila ble AA REQUESTED, NEW Primary Care Unavailable Franky Pearson Primary Care Provider Unavailabl e LILI MIKE, FRANKY Primary Care Physician [phone] Rio Aburto DO Primary Care Provider [phone] LILI MIKE, FRANKY Attending Unavailable HALKO DO, [...] Rio Aburto DO Primary Care Provider [phone] Dr. Yessi Mcqueen Attending Provider Keisha DIRECTOR OF CONSERVATION, DIRECTOR OF CONSERVATION-C Rolan Polk Attending Provider Dr. Allan Coleman Attending Provider Dr. Allan Coleman Attending Provider Lili MIKE, Dr. Bauer Primary Care Provider Lili MIKE, Dr. Bauer Referring Provider Wen DIRECTOR OF CONSERVATION-C, Jose M Attending Provider Nura DIRECTOR OF CONSERVATION-C, Moon Melissa Attending Provider Keisha DIRECTOR OF CONSERVATION-C, Rolan Polk Referring Provider Charisse JANE, Dr. Dickson Attending Provider Kyle DIRECTOR OF CONSERVATION-CKiersten Attending Provider Lili MIKE, Dr. Bauer Primary Care Provider Lili MIKE, Dr. Bauer Referring Provider Miriam MIKE, Dr. Wilkerson Attending Provider Miriam MIKE, Dr. Wilkerson Other Provider [phone] Lili MIKE, Dr. Bauer Primary Care Provider Llii MIKE, Dr. Bauer Referring Provider Dossi DC, Dr. Dickson Attending Provider Angus Reyes Attending Provider Jolie Burns Attending Provider Virginia ORTIZ, Dr. Lemus Attending Provider Dr. Franky Pearson DO Primary Care Physician Kiersten Ford Attending Physician Charisse JANE, Dr. Dickson Attending Physician Miriam MIKE, Dr. Wilkerson Attending Physician Miriam MIKE, Dr. Wilkerson Nurse Practitioner Angus Reyes Attending Physician Jolie Burns Attending Physician [phone] Allan Coleman MD Attending Physician Dr. Franky Peasron DO Attending Physician Halko, Franky Referring Unavailable [...] Unavailable Halko, Franky Primary Care Unavailable Keisha DIRECTOR OF CONSERVATION, Rolan Polk Attending Unavailable Keisha DIRECTOR OF CONSERVATION, Rolan Polk Referring Unavailable Halko, Franky Primary Care Unavailable Allergies Allergy Classification Reported Allergen(s) Allergy Type Date of Onset Reaction(s) Facility (1 source) NSAIDs Drug allergy (disorder) [facility] Repository Medications Current Medications Medication Drug [...] oral solution (1 source) alpha-Adrenergic Agonist, Uncompetitive N-tgjgqk-R-aspartate Receptor Antagonist, Sigma-1 Agonist Start: 08-26-2022 End: 09-02-2022 take 1 dose by mouth four times daily as needed Bromfed DM oral syrup Dose = 10 mL, Oral, QID, PRN for cold symptoms, X 7 day(s), # 120 mL, 0 Refill(s), [facility]: [id number], Productive cough, 160, cm, 08/24/22 8:00:00 EDT, [...] qDay, # 90 tab(s), 0 Refill(s), Pharmacy: [facility], 164, cm, 02/28/22 8:08:00 EDT, Height [...] glucometer., # 1 EA, 0 Refill(s), Pharmacy: [facility], Hypoglycemia, 164, cm, 04/04/22 8:05:00 EDT, Height, 86.1 Start Date: 04/04/22 Status: Ordered Start: 04-04-2022 DME MISCellane ous See Instructions, dx E16.2; check BGT due to hypoglycemic symptoms, up to once per day; dispense 100 EtOH wipes, # 100 EA, 0 Refill(s), Pharmacy: [facility], 164, cm, 04/04/22 8:05:00 EDT, Height, 86.1 Start Date: 04/04/22 Status: Ordered docusate sodium 100 mg oral capsule (11 sources) Start: 11-26-2024 take 1 capsule by mouth twice daily estradiol 0.5 mg oral tablet (13 sources) Estrogen Start: 08-24-2022 estradiol 0.5 mg oral tablet Dose : 0.5 mg = 1 tab(s), Oral, qDay, # 90 tab(s), 1 Refill(s), Pharmacy: [facility], 160, cm, 08/24/22 8:00:00 EDT, Height, kg, 08/24/22 8:00:00 EDT, Dosing Weight Start Date: 08/24/22 Status: Ordered Start: 11-22-2021 estradiol 0.5 mg oral tablet Dose : 0.5 mg = 1 tab(s), Oral, qDay, # 90 tab(s), 1 Refill(s), Pharmacy: [facility], 163.5, cm, 11/22/21 8:20:00 EDT, Height Start Date: 11/22/21 Status: Ordered Start: 03-25-2021 Estrace 0.5 mg oral tablet Dose : 0.5 mg = 1 tab(s), Oral, qDay, # 90 tab(s), 3 Refill(s), Pharmacy: [facility], 162.6, cm, 02/18/21 8:44:00 EDT, Height, [...] 11/23/21, # 30 tab(s), 2 Refill(s), Pharmacy: [facility], Anxiety, 163.5, cm, 11/22/21 8:20:00 EDT, Height, 83.3, kg, 11/22/21 8:... Start Date: 11/22/21 Stop Date: 02/20/22 Status: Ordered Start: 05-31-2021 End: 08-29-2021 LORazepam 0.5 mg oral tablet Dose : 0.5 mg = 1 tab(s), Oral, qDay, PRN as needed for anxiety, oarrs appropriate, to be filled on or after 06/10/21, # 30 tab(s), 2 Refill(s), [facility] [address] [address] Anxiety, 162.6, cm, 02/18/21 8:44:00 EDT, Height, 77.3, kg, 02/18/21 8:... Start Date: 05/31/21 Stop Date: 08/29/21 Status: Ordered Start: 03-01-2021 End: 05-30-2021 LORazepam 0.5 mg oral tablet Dose : 0.5 mg = 1 tab(s), Oral, qDay, PRN as needed for anxiety, oarrs appropriate, to be filled on or after 03/01/21, # 30 tab(s), 2 Refill(s), [email or web address] [address] Anxiety, 162.6, cm, [...] qHS, # 90 tab(s), 1 Refill(s), Pharmacy: [facility], 160, cm, 11/23/20 15:08:00 EDT, Height, kg, 11/23/20 15:08:00 EDT, Dosing Weight Start Date: 11/23/20 Stop Date: 05/22/21 Status: Ordered predniSONE 20 mg oral tablet (1 source) Start: 08-26-2022 End: 08-31-2022 prednisone 20mg tab (TAPER) Dose : 40 mg = 2 tab(s), Oral, qDay, X 5 day(s), # 10 tab(s), 0 Refill(s), 08/31/22 9:59:00 EDT, [facility]: [facility] #[id number], Productive cough, 160, cm, 08/24/22 8:00:00 EDT, [...] qDay, # 90 tab(s), 1 Refill(s), Pharmacy: [facility], 160, cm, 08/24/22 8:00:00 EDT, Height, kg, 08/24/22 8:00:00 EDT, Dosing Weight Start Date: 08/24/22 Stop Date: 02/20/23 Status: Ordered Start: 05-09-2022 End: 11-05-2022 Vitamin D3 125 mcg (5000 int l units) oral tablet Dose : 125 mcg = 1 tab(s), Oral, qDay, # 90 tab(s), 1 Refill(s), Pharmacy: [facility], 164, cm, 04/04/22 8:05:00 EDT, Height [...] needed, # 30 cap(s), 2 Refill(s), Pharmacy: [facility], 160, cm, 08/24/22 8:00:00 EDT, Height, kg, 08/24/22 8:00:00 EDT, Dosing Weight Start Date: 08/24/22 Status: Ordered Start: 06-15-2022 take 1 capsule by mouth every four hours as needed acetaminophen/butalbital/caffeine 325 mg -50 mg-40 mg oral capsule Dose = 1 cap(s), Oral, q4h, PRN as needed, # 30 cap(s), 0 Refill(s), [facility] #[id number], 164, cm, 05/30/22 8:50:00 EST, Height Start Date: 06/15/22 Status: Ordered acetaminophen 325 mg / HYDROcodone bitartrate 5 mg oral tablet (3 sources) Opioid Agonist Start: 05-22-2021 End: 05-25-2021 take 1 tablet by mouth every six hours as needed for pain Gotham 325- 5 mg oral tablet Dose = [...] 6 tab(s), 0 Refill(s), [facility]: [facility] #[id number], Productive cough, 160, cm, 08/24/22 8:00:00 EDT, [...] Status: Ordered take 1 capsule by [facility] once daily Biotin 2500 MCG [...] 12:00am August 20, 2024 12:11am estrogens, conjugated (shelter) 0.3 mg oral tablet (15 sources) Estrogen [...] tab(s), 1 Refill(s), 06/24/21 10:31:00 EST, Pharmacy: [address], 162.6, cm, 02/18/21 8:44:00 EDT, Height, [...] BID, # 180 tab(s), 1 Refill(s), Pharmacy: [facility], 163.5, cm, 11/22/21 8:20:00 EDT, Height, [...] Start: 11-26-2024 take 1 capsule by [facility] once daily 30 minutes before breakfast Start: [...] qDay, # 90 cap(s), 1 Refill(s), Pharmacy: [facility], 160, cm, 11/23/20 15:08:00 EDT, Height, kg, 11/23/20 15:08:00 EDT, Dosing Weight Start Date: 11/23/20 Stop Date: 05/22/21 Status: Ordered Start: 04-10-2019 take 1 capsule by [facility] once daily omeprazole (PRILOSEC) 20 MG delayed [...] 1:00am July 28, 2024 1:15am Peg 3350-Sod Sulf,Amtk-Zib-Qoj (Suflave) 178.7-7.3-0.5 gram recon soln (9 sources) Start: 11-26-2024 End: 01-21-2025 Peg 3350-Sod Sulf,Jrqe-Yfp-Fan (Suflave) 178.7-7.3-0.5 gram recon soln Discontinued 0 PO .COMPLEX 2 0 November 26, 2024 12:00am January 21, 2025 3:10pm as directed for split dose bowel prep Start: 11-26-2024 Peg 3350-Sod S ulf,Raws-Rqo-Tah (Suflave) 178.7-7.3-0.5 gram recon soln Active 0 PO .COMPLEX 2 0 November 26, 2024 12:00am as directed for split dose bowel prep Start: 11-26-2024 Peg 3350-Sod S ulf,Cmoz-Cjo-Jah (Suflave) 178.7-7.3-0.5 gram recon soln Active 0 [...] Daily, # 90 tab(s), 1 Refill(s), Pharmacy: [facility], 160, cm, 08/24/22 8:00:00 EDT, [...] 02-06-2025 Chronic Other aftercare (1 source) Other oil heaterman (current) drug therapy; Translations: [OTH SUGAR BOILER CURRENT DRUG THERAPY] Onset: 0 Episodic Other [...] Visit Repor ton 03-05-2025 Gastroenterology Visit Report [facility] [address] [place] [address] OFFICE VISIT Date of Service: 03/05/25 MR#: [id number] Acct: [id number] Name: AMANDA GRUBBS Rep #: [id number] : 1970 Provider: ANA mendiola Age/Sex: 54/F [...] week follow up Chief Complaint: follow-up constipation 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 Accompanied by: Self Is patient [...] QHS PRN 01/29/25 03/05/25 History peg 3350-sod sulf,yudvu-jbj-mzk See Rx Instructions PO .COMPLEX #2 03/05/25 [...] significant constipation (more content not included)... Normal [facility] Vitamin B1, Thiamineon 02-25 VIT B1 THIAMINE 113.9 nmol/L Normal 66.5-200.0 [facility] Comment on above: Order Comment: Test( s) 527809-Odt. B1, Whole Bloodwas developed and its performance characteristicsdetermined by [email or web address]. It has not been cleared or approvedby the Food and Drug Administration. Performed By: #### L 501.9985, L506.1001, L3300.8000, L100.0500, L500.4050, L503.6550, L506.0400, L506.0200, L500.4100, L503.0106, L3300.9900, L501.9520 ####[facility] [address] [place], [address] Zinc, Plasma or Serumon 02-09 ZINC,PLASMA/SER 62 ug/dL Normal 44-115 [facility] Comment on above: Order Comment: Test( s) 614216-Icg. B1, Whole Bloodwas developed and its performance characteristicsdetermined by [email or web address]. It has not been cleared or approvedby the Food and Drug Administration. Result Comment: Dete ction Limit = 5 Performed at: [address] [id number] [employer] Faculty Member: James Herrera MD, Phone: [phone] Performed By: #### L 501.9985, L506.1001, L3300.8000, L100.0500, L500.4050, L503.6550, L506.0400, L506.0200, L500.4100, L503.0106, L3300.9900, L501.9520 ####[facility] [address], [address] Anion gap in Serum or Plasma Ordered By: Franky Pearson on 02-19-2025 Anion gap [Moles/Vol] 11 mmol/L 5-15 [facility] BUN/creatinine ratioOrdered By: Franky Peasron on 02-19-2025 Urea nitrogen/Creatinine [Mass ratio] 9.8 mg/mg Low 10-20 [facility] Bilirubin, totalOrdered By: Franky Pearson on 02-19-2025 Bilirubin [Mass/Vol] 0.32 mg/dL 0.00-1.30 [facility] CBC-Complete Blood Cnt No Di ffon 02-19-2025 Erythrocyte distribution width (RBC) [Ratio] 12.7 % Normal 11.6-14.6 [facility] Comment on above: Performed By: #### L 501.9985, L506.1001, L3300.8000, L100.0500, L500.4050, L503.6550, L506.0400, L506.0200, L500.4100, L503.0106, L3300.9900, L501.9520 #### [facility] [address] [place], [address] Hematocrit (Bld) [Volume fraction] 37.5 % Normal 37-47 [facility] Comment on above: Performed By: #### L 501.9985, L506.1001, L3300.8000, L100.0500, L500.4050, L503.6550, L506.0400, L506.0200, L500.4100, L503.0106, L3300.9900, L501.9520 #### [facility] [address] [place], [address] Hemoglobin (Bld) [Mass/Vol] 12.3 g/dL Normal 12.0-15.0 [facility] Comment on above: Performed By: #### L 501.9985, L506.1001, L3300.8000, L100.0500, L500.4050, L503.6550, L506.0400, L506.0200, L500.4100, L503.0106, L3300.9900, L501.9520 #### [facility] [address] [place], [address] MCH (RBC) [Entitic mass] 30.4 pg Normal 27.0-32.0 [facility] Comment on above: Performed By: #### L 501.9985, L506.1001, L3300.8000, L100.0500, L500.4050, L503.6550, L506.0400, L506.0200, L500.4100, L503.0106, L3300.9900, L501.9520 #### [facility] [address] [place], [place], [id number] (790) MCHC (RBC) [Mass/Vol] 32.8 g/dL Normal 32-36 [facility] Comment on above: Performed By: #### L 501.9985, L506.1001, L3300.8000, L100.0500, L500.4050, L503.6550, L506.0400, L506.0200, L500.4100, L503.0106, L3300.9900, L501.9520 #### [facility] [address] [place], [place], [id number] [phone] MCV (RBC) [Entitic vol] 92.6 fL Normal 81-99 [facility] Comment on above: Performed By: #### L 501.9985, L506.1001, L3300.8000, L100.0500, L500.4050, L503.6550, L506.0400, L506.0200, L500.4100, L503.0106, L3300.9900, L501.9520 #### [facility] [address] [place], [address] Platelet mean volume (Bld) [Entitic vol] 9.7 fL Normal 6.2-12.0 [facility] Comment on above: Performed By: #### L 501.9985, L506.1001, L3300.8000, L100.0500, L500.4050, L503.6550, L506.0400, L506.0200, L500.4100, L503.0106, L3300.9900, L501.9520 #### [facility] [address] [place], [address] Platelets (Bld) [#/Vol] 316 10*3/uL Normal 150-450 [facility] Comment on above: Performed By: #### L 501.9985, L506.1001, L3300.8000, L100.0500, L500.4050, L503.6550, L506.0400, L506.0200, L500.4100, L503.0106, L3300.9900, L501.9520 #### [facility] [address] [place], [address] RBC (Bld) [#/Vol] 4.05 10*6/uL Low 4.2-5.4 [facility] Comment on above: Performed By: #### L 501.9985, L506.1001, L3300.8000, L100.0500, L500.4050, L503.6550, L506.0400, L506.0200, L500.4100, L503.0106, L3300.9900, L501.9520 #### [facility] [address] [place], [address] RDW SD 43.1 fl Normal 35.1-43.9 [facility] Comment on above: Performed By: #### L 501.9985, L506.1001, L3300.8000, L100.0500, L500.4050, L503.6550, L506.0400, L506.0200, L500.4100, L503.0106, L3300.9900, L501.9520 #### [facility] [address] [place], [place], [address] WBC (Bld) [#/Vol] 5.3 10*3/uL Normal 4.4-11.0 [facility] Comment on above: Performed By: #### L 501.9985, L506.1001, L3300.8000, L100.0500, L500.4050, L503.6550, L506.0400, L506.0200, L500.4100, L503.0106, L3300.9900, L501.9520 #### [facility] [address] [place], [place], [id number] Calculated very low density lipoprotein (VLDL) cholesterol measurementOrdered By: Franky Pearson on 02-19-2025 Calculated very low density lipoprotein (VLDL) cholesterol measurement 14 mg/dL 5-40 [facility] Carbon dioxide, total [Moles /volume] in Central venous bloodOrdered By: Franky Pearson on 02-19-2025 CO2 [Moles/Vol] 25.9 mmol/L 21.0-32.0 [facility] Chloride assayOrdered By: Park Pearson on 02-19-2025 Chloride [Moles/Vol] 106 mmol/L 98-108 [facility] Comprehensive Metabolic Prof ilon 02-19-2025 Albumin [Mass/Vol] 4.5 g/dL Normal 3.5-5.0 [facility] Comment on above: Order Comment: FAX R ESULTS TO [phone] Performed By: #### L 501.9985, L506.1001, L3300.8000, L100.0500, L500.4050, L503.6550, L506.0400, L506.0200, L500.4100, L503.0106, L3300.9900, L501.9520 #### [facility] [address] [address] [place], [place], [address] Albumin/Globulin [Mass ratio] 1.4 {ratio} Normal 0.9-2.4 [facility] Comment on above: Order Comment: FAX R ESULTS TO [phone] Performed By: #### L 501.9985, L506.1001, L3300.8000, L100.0500, L500.4050, L503.6550, L506.0400, L506.0200, L500.4100, L503.0106, L3300.9900, L501.9520 #### [facility] [address] [place], [address] ALK PHOS 128 U/L High 35-104 [facility] Comment on above: Order Comment: FAX R ESULTS TO [phone] Performed By: #### L 501.9985, L506.1001, L3300.8000, L100.0500, L500.4050, L503.6550, L506.0400, L506.0200, L500.4100, L503.0106, L3300.9900, L501.9520 #### [facility] [address] [place], [address] ALT [Catalytic activity/Vol] 20 U/L Normal <=34 [facility] Comment on above: Order Comment: FAX R ESULTS TO [phone] Performed By: #### L 501.9985, L506.1001, L3300.8000, L100.0500, L500.4050, L503.6550, L506.0400, L506.0200, L500.4100, L503.0106, L3300.9900, L501.9520 #### [facility] [address] [place], [address] AST [Catalytic activity/Vol] 21 U/L Normal <=31 [facility] Comment on above: Order Comment: FAX R ESULTS TO [phone] Performed By: #### L 501.9985, L506.1001, L3300.8000, L100.0500, L500.4050, L503.6550, L506.0400, L506.0200, L500.4100, L503.0106, L3300.9900, L501.9520 #### [facility] [address] [place], [place], [address] Bilirubin [Mass/Vol] 0.32 mg/dL Normal 0.00-1.30 [facility] Comment on above: Order Comment: FAX R ESULTS TO [phone] Performed By: #### L 501.9985, L506.1001, L3300.8000, L100.0500, L500.4050, L503.6550, L506.0400, L506.0200, L500.4100, L503.0106, L3300.9900, L501.9520 #### [facility] [address] [place], [address] BUN/CRE 9.8 RATIO Low 10-20 [facility] Comment on above: Order Comment: FAX R ESULTS TO [phone] Performed By: #### L 501.9985, L506.1001, L3300.8000, L100.0500, L500.4050, L503.6550, L506.0400, L506.0200, L500.4100, L503.0106, L3300.9900, L501.9520 #### [facility] [address] [place], [place], [address] Calcium [Mass/Vol] 9.6 mg/dL Normal 7.6-11.0 [facility] Comment on above: Order Comment: FAX R ESULTS TO [phone] Performed By: #### L 501.9985, L506.1001, L3300.8000, L100.0500, L500.4050, L503.6550, L506.0400, L506.0200, L500.4100, L503.0106, L3300.9900, L501.9520 #### [facility] [address] [place], [place], [id number] [phone] Chloride [Moles/Vol] 106 mmol/L Normal 98-108 [facility] Comment on above: Order Comment: FAX R ESULTS TO [phone] Performed By: #### L 501.9985, L506.1001, L3300.8000, L100.0500, L500.4050, L503.6550, L506.0400, L506.0200, L500.4100, L503.0106, L3300.9900, L501.9520 #### [facility] [address] [place], [place], [address] CO2 [Moles/Vol] 25.9 mmol/L Normal 21.0-32.0 [facility] Comment on above: Order Comment: FAX R ESULTS TO [phone] Performed By: #### L 501.9985, L506.1001, L3300.8000, L100.0500, L500.4050, L503.6550, L506.0400, L506.0200, L500.4100, L503.0106, L3300.9900, L501.9520 #### [facility] [address] [place], [address] Creatinine [Mass/Vol] 0.92 mg/dL Normal 0.70-1.20 [facility] Comment on above: Order Comment: FAX R ESULTS TO [phone] Performed By: #### L 501.9985, L506.1001, L3300.8000, L100.0500, L500.4050, L503.6550, L506.0400, L506.0200, L500.4100, L503.0106, L3300.9900, L501.9520 #### [facility] [address] [place], [address] GAP 11 Normal 5-15 [facility] Comment on above: Order Comment: FAX R ESULTS TO [phone] Performed By: #### L 501.9985, L506.1001, L3300.8000, L100.0500, L500.4050, L503.6550, L506.0400, L506.0200, L500.4100, L503.0106, L3300.9900, L501.9520 #### [facility] [address] [place], [address] (653) GFR/1.73 sq M.predicted among non-blacks MDRD (S/P/Bld) [Vol rate/Area] 75 mL/min/{1.73_m2} Normal >60 [facility] Comment on above: Order Comment: FAX R ESULTS TO [phone] Result Comment: mL/m in/1.73m2 CKD-EPI Creatinine Equation (2020) Performed By: #### L 501.9985, L506.1001, L3300.8000, L100.0500, L500.4050, L503.6550, L506.0400, L506.0200, L500.4100, L503.0106, L3300.9900, L501.9520 #### [facility] [address] [place], [place], [id number] (206) Globulin (S) [Mass/Vol] 3.2 g/dL Normal 2.2-4.2 [facility] Comment on above: Order Comment: FAX R ESULTS TO [phone] Performed By: #### L 501.9985, L506.1001, L3300.8000, L100.0500, L500.4050, L503.6550, L506.0400, L506.0200, L500.4100, L503.0106, L3300.9900, L501.9520 #### [facility] [address] [place], [place], [id number] (855) Glucose [Mass/Vol] 90 mg/dL Normal 70-99 [facility] Comment on above: Order Comment: FAX R ESULTS TO [phone] Performed By: #### L 501.9985, L506.1001, L3300.8000, L100.0500, L500.4050, L503.6550, L506.0400, L506.0200, L500.4100, L503.0106, L3300.9900, L501.9520 #### [facility] [address] [place], [address] Potassium [Moles/Vol] 4.9 mmol/L Normal 3.3-5.1 [facility] Comment on above: Order Comment: FAX R ESULTS TO [phone] Performed By: #### L 501.9985, L506.1001, L3300.8000, L100.0500, L500.4050, L503.6550, L506.0400, L506.0200, L500.4100, L503.0106, L3300.9900, L501.9520 #### [facility] [address] [place], [place], [id number] (937) Sodium [Moles/Vol] 143 mmol/L Normal 133-145 [facility] Comment on above: Order Comment: FAX R ESULTS TO [phone] Performed By: #### L 501.9985, L506.1001, L3300.8000, L100.0500, L500.4050, L503.6550, L506.0400, L506.0200, L500.4100, L503.0106, L3300.9900, L501.9520 #### [facility] [address] [place], [address] T PROT 7.7 g/dL Normal 5.9-8.4 [facility] Comment on above: Order Comment: FAX R ESULTS TO [phone] Performed By: #### L 501.9985, L506.1001, L3300.8000, L100.0500, L500.4050, L503.6550, L506.0400, L506.0200, L500.4100, L503.0106, L3300.9900, L501.9520 #### [facility] [address] [place], [place], [address] Urea nitrogen [Mass/Vol] 9 mg/dL Normal 4-19 [facility] Comment on above: Order Comment: FAX R ESULTS TO [phone] Performed By: #### L 501.9985, L506.1001, L3300.8000, L100.0500, L500.4050, L503.6550, L506.0400, L506.0200, L500.4100, L503.0106, L3300.9900, L501.9520 #### [facility] [address] [place], [address] Erythrocyte distribution wid th ratioOrdered By: Franky Pearson on 02-19-2025 Erythrocyte distribution width (RBC) [Ratio] 12.7 % 11.6-14.6 [facility] Erythrocyte distribution wid th standard deviationOrdered By: Franky Pearson on 02-19-2025 Erythrocyte distribution width (RBC) [Ratio] 43.1 fl 35.1-43.9 [facility] Ferritinon 02-19-2025 Ferritin [Mass/Vol] 17 ng/mL Low 22-378 [facility] Comment on above: Order Comment: FAX R ESULTS TO [phone] Performed By: #### L 501.9985, L506.1001, L3300.8000, L100.0500, L500.4050, L503.6550, L506.0400, L506.0200, L500.4100, L503.0106, L3300.9900, L501.9520 ####[facility] [address] [place], [place], [id number] Folate [Mass/volume] in Seru m or PlasmaOrdered By: Franky Pearson on 02-19-2025 Folate [Mass/Vol] 6.36 ng/mL 4.60-34.80 [facility] Folates,Serum (Folic Acid)on 02-19-2025 FOLATES,SERUM 6.36 ng/mL Normal 4.60-34.80 [facility] Comment on above: Order Comment: N Performed By: #### L 501.9985, L506.1001, L3300.8000, L100.0500, L500.4050, L503.6550, L506.0400, L506.0200, L500.4100, L503.0106, L3300.9900, L501.9520 #### [facility] [address], [address] Glomerular filtration rate ( GFR) estimation/1.73 sq m using serum, plasma, or whole bOrdered By: Franky Pearson on 02-19-2025 GFR/1.73 sq M.predicted among non-blacks MDRD (S/P/Bld) [Vol rate/Area] 75 mL/min/{1.73_m2} >60 [facility] Comment on above: mL/min/1.73m2 CKD-EP I Creatinine Equation (2020) Hematocrit Auto (Bld) [Volum e fraction]Ordered By: Franky Pearson on 02-19-2025 Hematocrit (Bld) [Volume fraction] 37.5 % 37-47 [facility] Hemoglobin A1con 02-19-2025 HbA1c (Bld) [Mass fraction] 5.5 % Normal <=5.6 [facility] Comment on above: Result Comment: Norm al < 5.7 % Prediabetic 5.7 - 6.4 % Diabetic >or= 6.5 % Please note range changes. Performed By: #### L 501.9985, L506.1001, L3300.8000, L100.0500, L500.4050, L503.6550, L506.0400, L506.0200, L500.4100, L503.0106, L3300.9900, L501.9520 #### [facility] [address] [place], [address] Hemoglobin A1c percentageOrd ered By: Franky Pearson on 02-19-2025 HbA1c (Bld) [Mass fraction] 5.5 % <5.7 [facility] Comment on above: Normal < 5.7 % Predi abetic 5.7 - 6.4 % Diabetic >or= 6.5 % Please note range changes. Hemoglobin measurementOrdere d By: Franky Pearson on 02-19-2025 Hemoglobin (Bld) [Mass/Vol] 12.3 g/dL 12.0-15.0 [facility] LDL calc ser/plasOrdered By: Franky Pearson on 02-19-2025 Cholesterol in LDL [Mass/Vol] 82 mg/dL [facility] Comment on above: Apqewgrlkm=484-337 m g/dL & Higher Lmiz=546 mg/dL or greaterFriedwald Equation for LDL-C Laboratory - Chemistry and C hemistry - challengeOrdered By: Franky Pearson on 02-19-2025 AST [Catalytic activity/Vol] 21 U/L <32 [facility] Lipid Profileon 02-19-2025 CHOL:HDL 2.42 Normal [facility] Comment on above: Order Comment: FAX R ESULTS TO [phone] Performed By: #### L 501.9985, L506.1001, L3300.8000, L100.0500, L500.4050, L503.6550, L506.0400, L506.0200, L500.4100, L503.0106, L3300.9900, L501.9520 ####[facility] [address] [place], [place], [address] Cholesterol [Mass/Vol] 163 mg/dL Normal <=200 [facility] Comment on above: Order Comment: FAX R ESULTS TO [phone] Result Comment: Chol esterol level, Desirable <200 mg/dL Borderline high cholesterol 200-239 mg/dL High cholesterol >=240 mg/dL Recommendations of the NCEP Adult Treatment Panel for the following risk-cutoff thresholds for the [place] population. Performed By: #### L 501.9985, L506.1001, L3300.8000, L100.0500, L500.4050, L503.6550, L506.0400, L506.0200, L500.4100, L503.0106, L3300.9900, L501.9520 ####[facility] [address] [place], [place], [id number](014) Cholesterol in HDL [Mass/Vol] 67 mg/dL Normal [facility] Comment on above: Order Comment: FAX R ESULTS TO [phone] Result Comment: Alicia onal Cholesterol Education Program (NCEP) guidelines: <40 mg/dL: Low HDL-cholesterol (major risk factor for CHD) >= 60 mg/dL: High HDL-cholesterol (negative risk factor for CHD) HDL-cholesterol is affected by a number of factors, e.g. smoking, exercise, hormones, sex and age. Performed By: #### L 501.9985, L506.1001, L3300.8000, L100.0500, L500.4050, L503.6550, L506.0400, L506.0200, L500.4100, L503.0106, L3300.9900, L501.9520 ####[facility] [address] [place], [address]) Cholesterol in LDL [Mass/Vol] 82 mg/dL Normal [facility] Comment on above: Order Comment: FAX R ESULTS TO [phone] Result Comment: Bord mofdqc=128-771 mg/dL Higher Sonr=521 mg/dL or greater Friedwald Equation for LDL-C Performed By: #### L 501.9985, L506.1001, L3300.8000, L100.0500, L500.4050, L503.6550, L506.0400, L506.0200, L500.4100, L503.0106, L3300.9900, L501.9520 ####[facility] [address] [place], [address] Cholesterol in VLDL [Mass/Vol] 14 mg/dL Normal 5-40 [facility] Comment on above: Order Comment: FAX R ESULTS TO [phone] Performed By: #### L 501.9985, L506.1001, L3300.8000, L100.0500, L500.4050, L503.6550, L506.0400, L506.0200, L500.4100, L503.0106, L3300.9900, L501.9520 ####[facility] [address] [place], [address] Triglyceride [Mass/Vol] 68 mg/dL Normal [facility] Comment on above: Order Comment: FAX R ESULTS TO [phone] Result Comment: The drugs N-Acetylcysteine and Metamizole may falsely depress this assay. Normal range: <150 mg/dL Borderline High: 150-199 mg/dL High: 200-499 mg/dL Very High: >500 mg/dL Performed By: #### L 501.9985, L506.1001, L3300.8000, L100.0500, L500.4050, L503.6550, L506.0400, L506.0200, L500.4100, L503.0106, L3300.9900, L501.9520 ####[facility] [address] [place], [address] MCV (mean corpuscular volume ) determinationOrdered By: Franky Pearson on 02-19-2025 MCV (RBC) [Entitic vol] 92.6 fL 81-99 [facility] Mean corpuscular hemoglobin (MCH) determinationOrdered By: Franky Pearson on 02-19-2025 MCH (RBC) [Entitic mass] 30.4 pg 27.0-32.0 [facility] Mean corpuscular hemoglobin concentration (MCHC) determinationOrdered By: Franky Pearson on 02-19-2025 MCHC (RBC) [Mass/Vol] 32.8 g/dL 32-36 [facility] Mean platelet volume determi nationOrdered By: Franky Pearson on 02-19-2025 Platelet mean volume (Bld) [Entitic vol] 9.7 fL 6.2-12.0 [facility] Platelet countOrdered By: Park Pearson on 02-19-2025 Platelets (Bld) [#/Vol] 316 10*3/uL 150-450 [facility] Potassium measurement (mass/ volume)Ordered By: Franky Pearson on 02-19-2025 Potassium (Unsp spec) [Mass/Vol] 4.9 mmol/L 3.3-5.1 [facility] RBC Auto (Bld) [#/Vol]Ordere d By: Franky Pearson on 02-19-2025 RBC (Bld) [#/Vol] 4.05 10*6/uL Low 4.2-5.4 [facility] Screening total cholesterol/ high density lipoprotein (HDL) cholesterol ratioOrdered By: Franky Pearson on 02-19-2025 Cholesterol.total/Chol esterol in HDL [Mass ratio] 2.42 {ratio} [facility] Serum creatinine measurement (mass/volume)Ordered By: Franky Pearson on 02-19-2025 Creatinine [Mass/Vol] 0.92 mg/dL 0.70-1.20 [facility] Serum globulin measurementOr dered By: Franky Pearson on 02-19-2025 Globulin (S) [Mass/Vol] 3.2 g/dL 2.2-4.2 [facility] Serum glucose measurement (m ass/volume)Ordered By: Franky Pearson on 02-19-2025 Glucose [Mass/Vol] 90 mg/dL 70-99 [facility] Serum or plasma alanine vang otransferase (ALT) measurementOrdered By: Franky Pearson on 02-19-2025 ALT [Catalytic activity/Vol] 20 U/L <35 [facility] Serum or plasma albumin sharifa urement (mass/volume)Ordered By: Franky Pearson on 02-19-2025 Albumin [Mass/Vol] 4.5 g/dL 3.5-5.0 [facility] Serum or plasma albumin/glob ulin mass ratioOrdered By: Franky Pearson on 02-19-2025 Albumin/Globulin [Mass ratio] 1.4 {ratio} 0.9-2.4 [facility] Serum or plasma alkaline keegan sphatase measurementOrdered By: Franky Pearson on 02-19-2025 ALP [Catalytic activity/Vol] 128 U/L High 35-104 [facility] Serum or plasma calcium sharifa urement (mass/volume)Ordered By: Franky Pearson on 02-19-2025 Calcium [Mass/Vol] 9.6 mg/dL 7.6-11.0 [facility] Serum or plasma cholesterol in HDL measurement (mass/volume)Ordered By: Franky Pearson on 02-19-2025 Cholesterol in HDL [Mass/Vol] 67 mg/dL >40 [facility] Comment on above: National Cholesterol Education Program (NCEP) guidelines:<40 mg/dL: Low HDL-cholesterol (major risk factor for CHD)>= 60 mg/dL: High HDL-cholesterol (negative risk factor for CHD)HDL-cholesterol is affected by a number of factors, e.g. smoking, exercise, hormones, sex and age. Serum or plasma cholesterol measurement (mass/volume)Ordered By: Franky Pearson on 02-19-2025 Cholesterol [Mass/Vol] 163 mg/dL <201 [facility] Comment on above: Cholesterol level, D esirable <200 mg/dLBorderline high cholesterol 200-239 mg/dLHigh cholesterol >=240 mg/dLRecommendations of the NCEP Adult Treatment Panel for the following risk-cutoff thresholds for the [place] population. Serum or plasma ferritin kayla surement (mass/volume)Ordered By: Franky Pearson on 02-19-2025 Ferritin [Mass/Vol] 17 ng/mL Low 22-378 [facility] Serum or plasma thiamine kayla surement (mass/volume)Ordered By: Franky Pearson on 02-19-2025 Thiamine [Mass/Vol] 113.9 nmol/L 66.5-200.0 [facility] Serum or plasma urea nitroge n measurement (mass/volume)Ordered By: Franky Pearson on 02-19-2025 Urea nitrogen [Mass/Vol] 9 mg/dL 4-19 [facility] Serum or plasma zinc measure ment (mass/volume)Ordered By: Franky Pearson on 02-19-2025 Zinc [Mass/Vol] 62 ug/dL 44-115 [facility] Comment on above: Detection Limit = 5P erformed at: [facility] [address] [id number] Director: James Herrera MD, Phone: [phone] Sodium levelOrdered By: Harry wendy Lili on 02-19-2025 Sodium [Moles/Vol] 143 mmol/L 133-145 [facility] T4 Free Directon 02-19-2025 T4 FREE DIRECT 1.00 ng/dL Normal 0.76-1.46 [facility] Comment on above: Order Comment: FAX R ESULTS TO [phone] Performed By: #### L 501.9985, L506.1001, L3300.8000, L100.0500, L500.4050, L503.6550, L506.0400, L506.0200, L500.4100, L503.0106, L3300.9900, L501.9520 ####[facility] [address] [place], [address] T4 freeOrdered By: Franky currie on 02-19-2025 Free T4 [Mass/Vol] 1.00 ng/dL 0.76-1.46 [facility] TSH DL <= 0.005 mIU/L QnOrde red By: Franky Pearson on 02-19-2025 TSH Qn 1.490 uIU/mL 0.300-4.20 0 [facility] Thyroid Stim Hormone (TSH)on 02-19-2025 TSH 1.490 uIU/mL Normal 0.300-4.20 0 [facility] Comment on above: Order Comment: FAX R ESULTS TO [phone] Performed By: #### L 501.9985, L506.1001, L3300.8000, L100.0500, L500.4050, L503.6550, L506.0400, L506.0200, L500.4100, L503.0106, L3300.9900, L501.9520 ####[facility] [address] [place], [address] Total proteinOrdered By: Carmen Pearson on 02-19-2025 Protein [Mass/Vol] 7.7 g/dL 5.9-8.4 [facility] Triglycerides measurementOrd ered By: Franky Pearson on 02-19-2025 Triglyceride [Mass/Vol] 68 mg/dL <199 [facility] Comment on above: The drugs N-Acetylcy steine and Metamizole may falsely depress this assay. Normal range: <150 mg/dLBorderline High: 150-199 mg/dLHigh: 200-499 mg/dLVery High: >500 mg/dL Vitamin B12on 02-19-2025 Cobalamin (Vitamin B12) [Mass/Vol] 248 pg/mL Normal 180-914 [facility] Comment on above: Order Comment: FAX R ESULTS TO [phone] Performed By: #### L 501.9985, L506.1001, L3300.8000, L100.0500, L500.4050, L503.6550, L506.0400, L506.0200, L500.4100, L503.0106, L3300.9900, L501.9520 ####[facility] [address] [place], [place], [id number] Vitamin B12 ser/plasOrdered By: Franky Pearson on 02-19-2025 Cobalamin (Vitamin B12) [Mass/Vol] 248 pg/mL 180-914 [facility] Vitamin D,25 Hydroxyon 02-19 Vitamin D 25-OH 33.2 ng/mL Normal 30-100 [facility] Comment on above: Order Comment: FAX R ESULTS TO [phone] Result Comment: Araceli min D Status Deficiency: <20 ng/mL (50nmol/L) Insufficiency: 20-30 ng/mL (50-75 nmol/L) Sufficiency: 30-100 ng/mL (75-250 nmol/L) Toxicity: >100 ng/mL (>250 nmol/L) Performed By: #### L 501.9985, L506.1001, L3300.8000, L100.0500, L500.4050, L503.6550, L506.0400, L506.0200, L500.4100, L503.0106, L3300.9900, L501.9520 ####[facility] [address] [place], [place], [id number] White blood cell (WBC) count Ordered By: Franky Pearson on 02-19-2025 WBC (Bld) [#/Vol] 5.3 10*3/uL 4.4-11.0 [facility] Foot min 3 Viewson 5 Foot min 3 Views [facility] Imaging Services [address] [place], [place] [address] (308) Foot min 3 Views MR#: [id number] Acct: [id number] Name: AMANDA GRUBBS Rep #: [id number] : 1970 F 54 From: Nandini Love MD PCP: Dr. Franky Pearson, Status: DEP AMB Study: Foot min 3 Views Date of Exam: 02/06/25 Exam# [id number] Ordering Dr: Jolie Joseph NP-Amrita EXAM: XR [...] IMPRESSION: Degenerative changes as above. Reading Location: [facility] CC: DIRECTOR OF CONSERVATION-C Jolie Joseph; Dr. Franky Pearson DO [facility]: Signed Normal [facility] Knee 4 or More Viewson 02-06 Knee 4 or More Views [facility] Imaging Services [address] [place] [address] Knee 4 or More Views MR#: [id number] Acct: [id number] Name: AMANDA GRUBBS Rep #: [id number] : 1970 F 54 From: Nandini Love MD PCP: Dr. Franky Pearson DO Status: DEP AMB Study: Knee 4 or More Views Date of Exam: 02/06/25 Exam# [id number] Ordering Dr: Jolie Joseph EXAM: XR Right Knee Complete, 4 or More Views CLINICAL INDICATION: ON GOING PAIN, NKI TECHNIQUE: Four or more views of the right knee. COMPARISON: No relevant prior studies available. FINDINGS: BONES/JOINTS: Unremarkable. No acute fracture. No dislocation. SOFT TISSUES: Unremarkable. RAD/Knee 4 or More Views IMPRESSION: No acute fracture. Reading [facility] CC: ANA Joseph; Dr. Franky Pearson DO [facility]: Signed Normal [facility] Orthopedic Visit Reporton Orthopedic Visit Report [facility] [address] [place] [address] [address] [place] [address] OFFICE VISIT Date of Service: 02/06/25 MR#: [id number] Acct: [id number] Name: AMANDA GRUBBS Rep #: [id number] : 1970 Provider: ANA montanez Age/Sex: 54/F [...] ROS Con (more content not included)... Normal [facility] Urine Cultureon 02-04-2025 URC Presumptive E. coli Bena Count 80,000-100,000 Presumptive E. coli: REACTION Ampicillin [...] TMP SMX Islt CARMEN >=320 R Normal [facility] Comment on above: Performed By: #### M 100.2200 ####[facility] [address] [place], [address] Laboratory - Chemistry and C hemistry - challengeOrdered By: Angus Villalobos on 02-02-2025 Bilirubin Ql (U) Negative [facility] Glucose Ql (U) Negative [facility] Ketones Ql (U) Trace (5) [facility] pH (U) 5.0 [pH] [facility] Specific gravity (U) [Rel density] 1.005 [facility] Urobilinogen (U) [Mass/Vol] 0.1207436 mg/dL [facility] Laboratory - Hematology and Cell countsOrdered By: Angus Villalobos on 02-02-2025 Hemoglobin Ql (U) Negative [facility] - Specimen inform ationOrdered By: Angus Villalobos on 02-02-2025 Clarity (U) Clear [facility] Color (U) Colorless [facility] Laboratory - UrinalysisOrder ed By: Angus Villalobos on 02-02-2025 Nitrite Ql (U) Negative [facility] Protein Ql (U) Negative [facility] No Panel InformationOrdered By: Angus Villalobos on 02-02-2025 Urine Leukocytes Negatve [facility] Urine Non-Hemolyzed Blood Negative [facility] Urgent Care Visit Reporton 0 02-02-2025 Urgent Care Visit Report [facility] [address], [address] [place] [address] OFFICE VISIT Date of Service: 02/02/25 MR#: [id number] Acct: [id number] Name: AMANDA GRUBBS Rep #: [id number] : 1970 Provider: BLU Marshall Age/Sex: 54/F [...] No CV (more content not included)... Normal [facility] Urine cultureOrdered By: Brayan Villalobos on 02-02-2025 Bacteria identified Cx Nom (U) Presumptive E. coli Abnormal [facility] Gastroenterology Visit Repor ton 01-29-2025 Gastroenterology Visit Report [facility] [address] [place] [address] OFFICE VISIT Date of Service: 01/29/25 MR#: [id number] Acct: [id number] Name: AMANDA GRUBBS Rep #: [id number] : 1970 Provider: ANA mendiola Age/Sex: 54/F Location: [facility] Status: Signed Intake Vital Signs 01/16/25 05:54 [...] daily. Pa (more content not included)... Normal [facility] Colonoscopy Reporton 025 Colonoscopy Report [facility] Medical Records Department [address] [place] [address] Colonoscopy Report MR#: [id number] Acct: [id number] Name: AMANDA GRUBBS Rep #: [id number] : 1970 54 From: Rock Pineda DO PCP: Dr. Franky Pearson DO Status:[facility] Patient Name: Amanda Grubbs Procedure Date: 01/16/2025 [...] was poor. Procedure Code(s): --- Professional --- 21130, Colonoscopy, flexible; with biopsy, single or multiple CPT copyright 2021 [employer]. All rights reserved. The codes documented in this report are preliminary and upon back sewer review may be revised to meet current compliance requirements. Rock Pineda DO 01/16/2025 7:19:59 AM This report has been signed electronically. Number of Addenda: 0 Note Initiated On: 01/16/2025 6:54 AM 01/16/25 0720 Date Rock Pineda DO Cosigner Signature: Date (if indicated) CC: Dr. Franky Pearson DO; Rock Pineda DO Date Dictated: 01/16/25 0654 Date Transcribed: [facility]: SHAN Signed Normal [facility] EGD Reporton 01-16-2025 EGD Report [facility] Medical Records Department [address] [place] [address] EGD Report MR#: [id number] Acct: [id number] Name: AMANDA GRUBBS Rep #: [id number] : 1970 54 From: Rock Pineda DO PCP: Dr. Franky Pearson DO Status[place] Patient Name: Amanda Grubbs Procedure Date: 01/16/2025 [...] pathology results. Procedure Code(s): --- Professional --- 45766, Esophagogastroduodenoscopy, flexible, transoral; with biopsy, single or multiple CPT copyright 2021 [employer]. All rights reserved. The codes documented in this report are preliminary and upon back sewer review may be revised to meet current compliance requirements. Rock Pineda DO 01/16/2025 7:17:27 AM This report has been signed electronically. Number of Addenda: 0 Note Initiated On: 01/16/2025 6:23 AM 01/16/25717 Date Rock Pineda DO Cosigner Signature: Date (if indicated) CC: Dr. Franky Pearson DO; Rock Pineda DO Date Dictated: 01/16/25622 Date Transcribed: [facility]: SHAN Signed [facility] Immunohistochemical Stainson 01-16-2025 Immunohistochemical Stains Patient Age/Sex Location Account Attending Physician AMANDA GRUBBS 54/F EN [id number] Rock Pineda DO Specimen: [id number] Received: 01/16/25 Status: ARLEEN Mitchell Num: [id number] Spec Type: EGD BIOPSY Subm Dr: Rock [...] developed and their performance characteristics determined by [facility]. They may not have been cleared or approved by the U.S. Food and Drug Administration. The FDA has determined that such clearance or approval is not necessary. The above immunohistochemical/dualISH markers are viewed by the Pathologist. GROSS DESCRIPTION A. Received in fixative is one container labeled with the patient's name and designated "Jejunum biopsy." The specimen consists of two irregular fragments of light grant soft tissue that measure 0.5 and 0.6 cm. The specimen is totally submitted in one cassette. B. Received in fixative is one container labeled with the patient's name and designated "Gastric ulcer biopsy." The specimen consists of one irregular fragment of light grant soft tissue that measures 0.4 cm. The specimen is totally submitted in one cassette. C. Received in fixative is one container labeled with the patient's name and designated "Random colon biopsy." The specimen consists of four irregular fragments of light grant soft tissue that measure 0.3 to 0.5 cm. The specimen is totally submitted in one cassette. ND 01/16/2025 CPT:80873y6,74549 Patient Age/Sex Location Account Attending Physician AMANDA GRUBBS 54/F EN [id number] Rock Pineda DO ADDENDUM Addendum 1 Entered: 01/21/25-1301 This addendum is to report the IHC stain for H pylori on part B: B. IHC negative for H pylori organisms. Addendum Signed (signature on file) Dr. Sima Pascal MD 01/21/25 6427 Patient Age/Sex Location Account Attending Physician AMANDA GRUBBS 54/F EN [id number] Rock Pineda DO Signed (signature on file) Dr. Sima Pascal MD 01/20/25 1233 Normal [facility] Comment on above: Performed By: #### MAXIMO DILLON ####[facility] [address] [place], [place], [address] MR/OP.PROVATon 01-16-2025 MR/OP.PROVAT [facility] Medical Records Department [address] [place] [address] Provation Physician Letter MR#: [id number] Acct: [id number] Name: AMANDA GRUBBS Rep #: [id number] : 1970 54 From: Rock Pineda DO PCP: Dr. Franky Pearson DO Status:[place] [facility] 01/16/2025 Franky Pearson Do Re : Colonoscopy [...] AM This report has been signed electronically. 01/16/25719 Date Rock Thakurignshelley Signature: Date (if indicated) CC: Dr. Franky Pearson DO; Rock Pineda DO Date Dictated: 01/16/25 0654 Date Transcribed: [facility] Consult[facility]: SHAN Signed [facility] MR/OP.PROVAT [facility] Medical Records Department [address] [place] [address] Provation Physician Letter MR#: [id number] Acct: [id number] Name: AMANDA GRUBBS Rep #: [id number] : 1970 54 From: Rock Pineda DO PCP: Dr. Franky Pearson DO Status:[place] [facility] 01/16/2025 Franky Pearson Do Re : Upper [...] Pineda DO Date Dictated: 01/16/25622 Date Transcribed: Cardiology Consultants: RF Signed [facility] MR/POSTOP.ANEon 01-16-2025 MR/POSTOP.[facility] Medical Records Department [address] [place] [address] Anesthesia Postop Eval I 01/16/25718 MR#: [id number] Acct: [id number] Name: AMANDA GRUBBS Rep #: [id number] : 1970 54 From: Frederic Nicole PCP: Dr. Franky Pearson, DO Status:REG SD[facility] Y Race: C Location: [place] [address] Anesthesia: Postop Eval I Current Vital Signs [...] Frederic Barney Signature: Date CC: Signed Normal [facility] Surgery Specimen Level Sukhwinder 01-16-2025 Surgery Specimen Level IV Patient Age/Sex Location Account Attending Physician AMANDA GRUBBS 54/F EN [id number] Rock Pineda DO Specimen: [id number] Received: 01/16/25 Status: ARLEEN Mitchell Num: [id number] Spec Type: EGD BIOPSY Subm Dr: Rock [...] labeled with the patient's name and designated "Jejunum biopsy." The specimen consists of two irregular fragments of light grant soft tissue that measure 0.5 and 0.6 cm. The specimen is totally submitted in one cassette. B. Received in fixative is one container labeled with the patient's name and designated "Gastric ulcer biopsy." The specimen consists of one irregular fragment of light grant soft tissue that measures 0.4 cm. The specimen is totally submitted in one cassette. C. Received in fixative is one container labeled with the patient's name and designated "Random colon biopsy." The specimen consists of four irregular fragments of light grant soft tissue that measure 0.3 to 0.5 cm. The specimen is totally submitted in one cassette. ND 01/16/2025 CPT:07637m5,99260 Patient Age/Sex Location Account Attending Physician AMANDA GRUBBS 54/F EN [id number] Rock Pineda, DO Signed (signature on file) Dr. Sima Pascal MD 01/20/25 1233 [facility] Comment on above: Performed By: #### P MAXIMO LORENZO ####[facility] [address] [place], [place], [id number] MR/PAT.Mckay 01-13-2025 MR/PAT.[facility] Medical Records Department [address] [place] [address] PAT - Anesthesia 01/13/25 1645 MR#: [id number] Acct: [id number] Name: AMANDA GRUBBS Rep #: [id number] : 1970 54 From: Selvin Slater MD PCP: Dr. 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 Hx Hospitalization No 01/13/25 13:38 Any Problems [...] take am of surgery PONV PONV - oil change technician: PONV - oil change technician Female No 01/13/25 13:38 HX of Motion [...] 11/26/24 09:57 Respiratory Assessment Respiratory Assessment - oil change technician: Respiratory Tract Infection Hx - oil change technician Hx Respiratory Tract Infection No 01/13/25 13:38 STOP Sleep Apnea STOP Sleep Apnea - oil change technician: STOP Sleep Apnea - oil change technician Hx Hypertension No 01/13/25 13:38 Hx Sleep [...] Tobacco Use History Tobacco Use History - oil change technician: Tobacco Use History - oil change technician Tobacco Use Smoking Status Never smoker 01/13/25 13:38 Hx Tobacco Use No 01/13/25 13:38 Years Smoking Packs Smoked per Day Smoking Cessation Date was within the last 15 years Hx Smoking Cessation Date Hx Smoking Cessation Counseling Hematologic Medial History Hematologic Hx - oil change 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 Normal [facility] Chiropractic Reporton 2024 Chiropractic Report [facility] Chiropractic [address] [place] [address] OFFICE VISIT Date of Service: 01/05/25 MR#: [id number] Acct: [id number] Name: ROMIEAMANDAALMA CHAVIRA Rep #: [id number] : 1970 Provider: BUCK Médnez Age/Sex: 54/F Location: [facility] Status: Signed Intake Vital Signs 11/26/24 09:57 [...] #90 caps 11/26/24 Rx release peg 3350-sod sulf,qywzf-wfb-pwa See Rx Instructions PO .COMPLEX #2 11/26/24 01/05/25 Rx 178.7-7.3-0.5-1.12-0.9 gram oral mL soln (Suflave) ramelteon 8 mg tablet (Rozerem) 8 mg PO QHS 11/26/24 01/05/25 Hist ory tirzepatide 2.5 mg/0.5 mL 2.5 mg subcut QWEEK 11/26/2401/05 History subcutaneous pen injector (Mounjaro) [facility] Medical History Lower respiratory tract [...] tension and has noticed a decrease in IRIZARRY's since her last adjustment. She also complains of low back discomfort that is equal bilaterally. She feels like her hips are out of alignment. She participated in the [employer] run this past weekend but feels pretty [...] T5 and (more content not included)... Normal [facility] Chiropractic Reporton 2024 Chiropractic Report [facility] Chiropractic [facility] [place] [address] OFFICE VISIT Date of Service: 12/18/24 MR#: [id number] Acct: [id number] Name: AMANDA GRUBBS Rep #: [id number] : 1970 Provider: BUCK Méndez Age/Sex: 54/F Location: [facility] Status: Signed Intake Vital Signs 11/26/24 [...] #90 caps 11/26/24 Rx release peg 3350-sod sulf,aerhr-dvi-dww See Rx Instructions PO .COMPLEX #2 11/26/24 12/18/24 Rx 178.7-7.3-0.5-1.12-0.9 gram oral mL soln (Suflave) ramelteon 8 mg tablet (Rozerem) 8 mg PO QHS 11/26/24 12/18/24 Hist ory tirzepatide 2.5 mg/0.5 mL 2.5 mg subcut QWEEK 11/26/2412/18 History subcutaneous pen injector (Dakota) [facility] Medical History Lower respiratory tract [...] (upper thor (more content not included)... Normal [facility] Gastroenterology Visit Repor ton 11-26-2024 Gastroenterology Visit Report [facility] Gastroenterology [address] [place] [address] OFFICE VISIT Date of Service: 11/26/24 MR#: [id number] Acct: [id number] Name: AMANDA GRUBBS Rep #: [id number] : 1970 Provider: ANA mendiola Age/Sex: 54/F Location: [facility] Status: Signed Intake Vital Signs 09/25/24 10:43 [...] Chief Complaint: abdomina pain, bloating, N/V, bleeding 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 Accompanied by: Self Is patient [...] capsule 100 mg PO BID #60 caps 06/18/25 06 /18/25 Rx fexofenadine 60 mg tablet (Becca 60 [...] #90 caps 11/26/24 Rx release peg 3350-sod sulf,lorlg-gkr-ovt See Rx Instructions PO .COMPLEX #2 11/26/24 11/26/24 Rx 178.7-7.3-0.5-1.12-0.9 gram oral mL soln (Suflave) ramelteon 8 mg tablet (Rozerem) 8 mg PO QHS 11/26/24 11/26/24 Hist ory tirzepatide 2.5 mg/0.5 mL 2.5 mg subcut QWEEK 11/26/2411/26 History subcutaneous pen injector (Mounjaro) [facility] Medical History Lower respiratory tract [...] when she tries to have a BM, "like razor blades" BRBPR - this past Sunday, she had [...] for headache(s (more content not included)... Normal [facility] Office Visit Reporton 2024 Office Visit Report [facility] [address] [place] [address] OFFICE VISIT Date of Service: 06/27/24 MR#: [id number] Acct: [id number] Patient: AMANDA GRUBBS Rep #: [id number] : 1970 Provider: BLU Clinton Age/Sex: [...] Target Due Date 10/25/24 11/27/24813 Date Hans HURT Cosignshelley Signature: Date (if applicable) CC: Normal [facility] Chiropractic Reporton 2024 Chiropractic Report [facility] Chiropractic [address] [place] [address] OFFICE VISIT Date of Service: 09/25/24 MR#: [id number] Acct: [id number] Name: ROMIEAMANDAALMA CHAVIRA Rep #: [id number] : 1970 Provider: BUCK Méndez Age/Sex: 54/F Location: [facility] Status: Signed Intake Vital Signs 08/19/24 07:30 [...] 10:43) Medications ???Medication ???Instructions ???Recorded ???Confirmed ???Type ozgleqxrwg-vcidksjinwrse-sq ffeine 1 cap PO Q8H PRN h/a [...] Yes cervical (more content not included)... Normal [facility] Pulmonary Visit Reporton Pulmonary Visit Report [facility] [place] [address] [place] [address] OFFICE VISIT Date of Service: 08/19/24 MR#: [id number] Acct: [id number] Name: AMANDA GRUBBS Rep #: [id number] : 1970 Provider: Moon Lyman NP Age/Sex: 54/F Location: [facility] Status: Signed Assessment and Plan Assessment and [...] is being referred from Rolan Valdes, Cardiology [facility]. Her PCP is Dr. Franky Pearson. She is a lifelong non-smoker. 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 She has never seen a orthotic technician. The patient indicates that she had COVID 3 to 4 years ago. She went to the ER for abdominal pain. A abdominal CT was obtained which showed a lung nodule at that time. She reports that this nodule has been "watched" for 3 years and she was told it was "growing ". Due to strong cardiac family history the patient underwent a cardiac CT on June 13, 2024 which continue to show a stable 4.6 noncalcified nodule in the medial aspect of the right upper lobe when compared to previous image from January 2024. The patient has imaging from [facility] including a chest CT on [...] the patient reports that they have been "stable ". Today she denies wheeze. She reports that [...] Visit Reasons: Lung Nodule Chief Complaint: BA, IRIZARRY, ST, chest congest, sinus pressure 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 DME Vendor: n/a Accompanied by: Self Is patient in pain?: No Allergies No Known Allerg (more content not included)... Normal [facility] Urgent Care Visit Reporton 0 08-13-2024 Urgent Care Visit Report [facility] [address], [address] [place] [address] OFFICE VISIT Date of Service: 08/13/24 MR#: [id number] Acct: [id number] Name: AMANDA GRUBBS Rep #: [id number] : 1970 Provider: ANA Carver Age/Sex: 54/F [...] 08:38) Medications ???Medication ???Instructions ???Recorded ???Confirmed ???Type iezbwdbbgw-tilyfohjyytmg-rk ffeine 1 cap PO Q8H PRN h/a [...] from her nose. Patient grandson had pneumonia. [facility] Medical History (Updated 08/13/24 @ [...] discuss possibl (more content not included)... Normal [facility] Office Visit Reporton 2024 Office Visit Report [facility] [address] [place] [address] OFFICE VISIT Date of Service: 07/23/24 MR#: [id number] Acct: [id number] Patient: AMANDA GRUBBS Rep #: [id number] : 1970 Provider: BLU Marshall Age/Sex: [...] Cosigner Signature: Date (if applicable) CC: Normal [facility] Urgent Care Visit Reporton 0 07-23-2024 Urgent Care Visit Report [facility] [address] , [address] [place] [address] OFFICE VISIT Date of Service: 07/23/24 MR#: [id number] Acct: [id number] Name: AMANDA GRUBBS Rep #: [id number] : 1970 Provider: BLU Marshall Age/Sex: 54/F [...] Visit Reasons: SINUS CALVIN/PRES/ST Chief Complaint: BA, IRIZARRY, ST, chest congest, sinus pressure Allergies No Known Allergies Allergy (Verified 07/23/24 11:59) [facility] Medical History Anginal pain Somatic dysfunction [...] caffeine: Yes HPI HPI Chief Complaint: BA, IRIZARRY, ST, chest congest, sinus pressure Details: AMANDA [...] No close contacts with similar complaints. ???No lcvl-bif-prmcrac products taken to assist. No other associated [...] Acute streptococcal (more content not included)... 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 denies fevers. pt resulted negative for cepheid IN ERROR. pt was FLU AND STREP POSITIVE. pt and provider has been advised of results [facility] Medical History Anginal pain Somatic [...] caffeine: Yes HPI HPI Chief Complaint: BA, IRIZARRY, ST, chest congest, sinus pressure Details: ADDENDUM [...] ft 3 in Intake Visit Reasons: SINUS CLAVIN/PRES/ST Chief Complaint: BA, IRIZARRY, ST, chest congest, sinus pressure Allergies No Known Allergies Allergy (Verified 07/23/24 11:59) [facility] Medical History Anginal pain Somatic [...] caffeine: Yes HPI HPI Chief Complaint: BA, IRIZARRY, ST, chest congest, sinus pressure Details: AMANDA [...] No close contacts with similar complaints. ???No ezcx-dbp-ubqruih products taken t (more content not included)... Normal [facility] Vitamin B1, Thiamineon 07-08 VIT B1 THIAMINE 89.5 nmol/L Normal 66.5-200.0 [facility] Comment on above: Order Comment: Test( s) 433804-Pko. B1, Whole Bloodwas developed and its performance characteristicsdetermined by [email or web address]. It has not been cleared or approvedby the Food and Drug Administration. Performed By: #### L 3300.9900, L503.6030, L506.0400, L506.1000, L3300.8000, L100.0500, L503.6550, L503.0105, L501.9520, L500.4050, L501.9985, L500.4100, L506.0250 ####[facility] [address] [place], [address] Zinc, Plasma or Serumon 06-12 ZINC,PLASMA/SER 62 ug/dL Normal 44-115 [facility] Comment on above: Order Comment: Test( s) 005559-Fop. B1, Whole Bloodwas developed and its performance characteristicsdetermined by [email or web address]. It has not been cleared or approvedby the Food and Drug Administration. Result Comment: Dete ction Limit = 5 Performed at: [address] [id number] [employer] Faculty Member: James Herrera MD, Phone: [phone] Performed By: #### L 3300.9900, L503.6030, L506.0400, L506.1000, L3300.8000, L100.0500, L503.6550, L503.0105, L501.9520, L500.4050, L501.9985, L500.4100, L506.0250 ####[facility] [address] [facility] [place], [address] CBC-Complete Blood Cnt No Di ffon 07-01-2024 Erythrocyte distribution width (RBC) [Ratio] 12.6 % Normal 11.6-14.6 [facility] Comment on above: Performed By: #### L 3300.9900, L503.6030, L506.0400, L506.1000, L3300.8000, L100.0500, L503.6550, L503.0105, L501.9520, L500.4050, L501.9985, L500.4100, L506.0250 ####[facility] [address] [facility] [place], [address] Hematocrit (Bld) [Volume fraction] 36.8 % Low 37-47 [facility] Comment on above: Performed By: #### L 3300.9900, L503.6030, L506.0400, L506.1000, L3300.8000, L100.0500, L503.6550, L503.0105, L501.9520, L500.4050, L501.9985, L500.4100, L506.0250 ####[facility] [address] [place], [address] Hemoglobin (Bld) [Mass/Vol] 11.7 g/dL Low 12.0-15.0 [facility] Comment on above: Performed By: #### L 3300.9900, L503.6030, L506.0400, L506.1000, L3300.8000, L100.0500, L503.6550, L503.0105, L501.9520, L500.4050, L501.9985, L500.4100, L506.0250 ####[facility] [address] [place], [address] MCH (RBC) [Entitic mass] 30.2 pg Normal 27.0-32.0 [facility] Comment on above: Performed By: #### L 3300.9900, L503.6030, L506.0400, L506.1000, L3300.8000, L100.0500, L503.6550, L503.0105, L501.9520, L500.4050, L501.9985, L500.4100, L506.0250 ####[facility] [address] [place], [address] MCHC (RBC) [Mass/Vol] 31.8 g/dL Low 32-36 [facility] Comment on above: Performed By: #### L 3300.9900, L503.6030, L506.0400, L506.1000, L3300.8000, L100.0500, L503.6550, L503.0105, L501.9520, L500.4050, L501.9985, L500.4100, L506.0250 ####[facility] [address] [place], [address] MCV (RBC) [Entitic vol] 94.8 fL Normal 81-99 [facility] Comment on above: Performed By: #### L 3300.9900, L503.6030, L506.0400, L506.1000, L3300.8000, L100.0500, L503.6550, L503.0105, L501.9520, L500.4050, L501.9985, L500.4100, L506.0250 ####[facility] [address] [place], [address] Platelet mean volume (Bld) [Entitic vol] 9.1 fL Normal 6.2-12.0 [facility] Comment on above: Performed By: #### L 3300.9900, L503.6030, L506.0400, L506.1000, L3300.8000, L100.0500, L503.6550, L503.0105, L501.9520, L500.4050, L501.9985, L500.4100, L506.0250 ####[facility] [address] [place], [address] Platelets (Bld) [#/Vol] 288 10*3/uL Normal 150-450 [facility] Comment on above: Performed By: #### L 3300.9900, L503.6030, L506.0400, L506.1000, L3300.8000, L100.0500, L503.6550, L503.0105, L501.9520, L500.4050, L501.9985, L500.4100, L506.0250 ####[facility] [address] [place], [place], [phone]) RBC (Bld) [#/Vol] 3.88 10*6/uL Low 4.2-5.4 [facility] Comment on above: Performed By: #### L 3300.9900, L503.6030, L506.0400, L506.1000, L3300.8000, L100.0500, L503.6550, L503.0105, L501.9520, L500.4050, L501.9985, L500.4100, L506.0250 ####[facility] [address] [place], [address]( RDW SD 43.9 fl Normal 35.1-43.9 [facility] Comment on above: Performed By: #### L 3300.9900, L503.6030, L506.0400, L506.1000, L3300.8000, L100.0500, L503.6550, L503.0105, L501.9520, L500.4050, L501.9985, L500.4100, L506.0250 ####[facility] [address] [place], [place], [phone] WBC (Bld) [#/Vol] 6.6 10*3/uL Normal 4.4-11.0 [facility] Comment on above: Performed By: #### L 3300.9900, L503.6030, L506.0400, L506.1000, L3300.8000, L100.0500, L503.6550, L503.0105, L501.9520, L500.4050, L501.9985, L500.4100, L506.0250 ####[facility] [address] [place], [address] Comprehensive Metabolic Prof ilon 07-01-2024 Albumin [Mass/Vol] 3.7 g/dL Normal 3.2-5.0 [facility] Comment on above: Order Comment: Y Performed By: #### L 3300.9900, L503.6030, L506.0400, L506.1000, L3300.8000, L100.0500, L503.6550, L503.0105, L501.9520, L500.4050, L501.9985, L500.4100, L506.0250 ####[facility] [address] [place], [address] Albumin/Globulin [Mass ratio] 0.9 {ratio} Normal 0.9-2.4 [facility] Comment on above: Order Comment: Y Performed By: #### L 3300.9900, L503.6030, L506.0400, L506.1000, L3300.8000, L100.0500, L503.6550, L503.0105, L501.9520, L500.4050, L501.9985, L500.4100, L506.0250 ####[facility] [address] [place], [place], [phone] ALK P 108 U/L Normal 45-117 [facility] Comment on above: Order Comment: Y Performed By: #### L 3300.9900, L503.6030, L506.0400, L506.1000, L3300.8000, L100.0500, L503.6550, L503.0105, L501.9520, L500.4050, L501.9985, L500.4100, L506.0250 ####[facility] [address] [place], [place], [phone] ALT [Catalytic activity/Vol] 18 U/L Normal 13-56 [facility] Comment on above: Order Comment: Y Performed By: #### L 3300.9900, L503.6030, L506.0400, L506.1000, L3300.8000, L100.0500, L503.6550, L503.0105, L501.9520, L500.4050, L501.9985, L500.4100, L506.0250 ####[facility] [address] [place], [place], [phone] AST [Catalytic activity/Vol] 12 U/L Low 15-37 [facility] Comment on above: Order Comment: Y Performed By: #### L 3300.9900, L503.6030, L506.0400, L506.1000, L3300.8000, L100.0500, L503.6550, L503.0105, L501.9520, L500.4050, L501.9985, L500.4100, L506.0250 ####[facility] [address] [place], [place], [phone] Bilirubin [Mass/Vol] 0.20 mg/dL Normal 0.20-1.00 [facility] Comment on above: Order Comment: Y Result Comment: For patients on eltrombopag therapy, use of Dimension [place] TBIL is not recommended. Performed By: #### L 3300.9900, L503.6030, L506.0400, L506.1000, L3300.8000, L100.0500, L503.6550, L503.0105, L501.9520, L500.4050, L501.9985, L500.4100, L506.0250 ####[facility] [address] [place], [address] BUN/CRE 9.7 RATIO Low 10-20 [facility] Comment on above: Order Comment: Y Performed By: #### L 3300.9900, L503.6030, L506.0400, L506.1000, L3300.8000, L100.0500, L503.6550, L503.0105, L501.9520, L500.4050, L501.9985, L500.4100, L506.0250 ####[facility] [address] [place], [place], [id number] CA,Total 9.5 mg/dL Normal 8.5-10.1 [facility] Comment on above: Order Comment: Y Performed By: #### L 3300.9900, L503.6030, L506.0400, L506.1000, L3300.8000, L100.0500, L503.6550, L503.0105, L501.9520, L500.4050, L501.9985, L500.4100, L506.0250 ####[facility] [address] [place], [address] Chloride [Moles/Vol] 106 mmol/L Normal 98-107 [facility] Comment on above: Order Comment: Y Performed By: #### L 3300.9900, L503.6030, L506.0400, L506.1000, L3300.8000, L100.0500, L503.6550, L503.0105, L501.9520, L500.4050, L501.9985, L500.4100, L506.0250 ####[facility] [address] [place], [address] CO2 [Moles/Vol] 27.0 mmol/L Normal 21.0-32.0 [facility] Comment on above: Order Comment: Y Performed By: #### L 3300.9900, L503.6030, L506.0400, L506.1000, L3300.8000, L100.0500, L503.6550, L503.0105, L501.9520, L500.4050, L501.9985, L500.4100, L506.0250 ####[facility] [address] [place], [place], [phone](282) Creatinine [Mass/Vol] 0.93 mg/dL Normal 0.55-1.02 [facility] Comment on above: Order Comment: Y Result Comment: The validity of the calculated GFR GFRAA in patients over 70 years has not been determined. Clinical correlation is essential. Performed By: #### L 3300.9900, L503.6030, L506.0400, L506.1000, L3300.8000, L100.0500, L503.6550, L503.0105, L501.9520, L500.4050, L501.9985, L500.4100, L506.0250 ####[facility] [address] [place], [address] EST GFR - AA 81 mL/min Normal >60 [facility] Comment on above: Order Comment: Y Result Comment: Afri can [place] GFR Calc Performed By: #### L 3300.9900, L503.6030, L506.0400, L506.1000, L3300.8000, L100.0500, L503.6550, L503.0105, L501.9520, L500.4050, L501.9985, L500.4100, L506.0250 ####[facility] [address] [place], [place], [phone] GAP 8 Normal 5-15 [facility] Comment on above: Order Comment: Y Performed By: #### L 3300.9900, L503.6030, L506.0400, L506.1000, L3300.8000, L100.0500, L503.6550, L503.0105, L501.9520, L500.4050, L501.9985, L500.4100, L506.0250 ####[facility] [address] [place], [address] GFR/1.73 sq M.predicted among non-blacks MDRD (S/P/Bld) [Vol rate/Area] 67 mL/min/{1.73_m2} Normal >60 [facility] Comment on above: Order Comment: Y Result Comment: Non- GFR Calc Performed By: #### L 3300.9900, L503.6030, L506.0400, L506.1000, L3300.8000, L100.0500, L503.6550, L503.0105, L501.9520, L500.4050, L501.9985, L500.4100, L506.0250 ####[facility] [address] [place], [address] Globulin (S) [Mass/Vol] 4.0 g/dL Normal 2.2-4.2 [facility] Comment on above: Order Comment: Y Performed By: #### L 3300.9900, L503.6030, L506.0400, L506.1000, L3300.8000, L100.0500, L503.6550, L503.0105, L501.9520, L500.4050, L501.9985, L500.4100, L506.0250 ####[facility] [address] [place], [place], [phone] Glucose [Mass/Vol] 148 mg/dL High 74-106 [facility] Comment on above: Order Comment: Y Result Comment: Fast ing Glucose result greater than or equal to 126 mg/dL suggests DIABETES MELLITUS per A.D.A. criteria. Performed By: #### L 3300.9900, L503.6030, L506.0400, L506.1000, L3300.8000, L100.0500, L503.6550, L503.0105, L501.9520, L500.4050, L501.9985, L500.4100, L506.0250 ####[facility] [address] [place], [place], [phone]) Potassium [Moles/Vol] 4.3 mmol/L Normal 3.5-5.1 [facility] Comment on above: Order Comment: Y Performed By: #### L 3300.9900, L503.6030, L506.0400, L506.1000, L3300.8000, L100.0500, L503.6550, L503.0105, L501.9520, L500.4050, L501.9985, L500.4100, L506.0250 ####[facility] [address] [place], [place], [phone] Sodium [Moles/Vol] 141 mmol/L Normal 136-145 [facility] Comment on above: Order Comment: Y Performed By: #### L 3300.9900, L503.6030, L506.0400, L506.1000, L3300.8000, L100.0500, L503.6550, L503.0105, L501.9520, L500.4050, L501.9985, L500.4100, L506.0250 ####[facility] [address] [place], [place], [phone](220) T PROT 7.7 g/dL Normal 6.4-8.2 [facility] Comment on above: Order Comment: Y Performed By: #### L 3300.9900, L503.6030, L506.0400, L506.1000, L3300.8000, L100.0500, L503.6550, L503.0105, L501.9520, L500.4050, L501.9985, L500.4100, L506.0250 ####[facility] [address] [place], [place], [phone] Urea nitrogen [Mass/Vol] 9 mg/dL Normal 7-18 [facility] Comment on above: Order Comment: Y Performed By: #### L 3300.9900, L503.6030, L506.0400, L506.1000, L3300.8000, L100.0500, L503.6550, L503.0105, L501.9520, L500.4050, L501.9985, L500.4100, L506.0250 ####[facility] [address] [place], [place], [phone] Ferritinon 07-01-2024 Ferritin [Mass/Vol] 34 ng/mL Normal 8-252 [facility] Comment on above: Order Comment: Y Performed By: #### L 3300.9900, L503.6030, L506.0400, L506.1000, L3300.8000, L100.0500, L503.6550, L503.0105, L501.9520, L500.4050, L501.9985, L500.4100, L506.0250 ####[facility] [address] [place], [place], [phone] Folates, (Folic Acid)on 06-12 FOLATES 14.10 ng/mL Normal 3.1-55.4 [facility] Comment on above: Order Comment: Y Performed By: #### L 3300.9900, L503.6030, L506.0400, L506.1000, L3300.8000, L100.0500, L503.6550, L503.0105, L501.9520, L500.4050, L501.9985, L500.4100, L506.0250 ####[facility] [address] [place], [place], [phone] Hemoglobin A1con 07-01-2024 HbA1c (Bld) [Mass fraction] 5.4 % Normal 3.8-5.6 [facility] Comment on above: Result Comment: Norm al < 5.7 % Prediabetic 5.7 - 6.4 % Diabetic >or= 6.5 % Please note range changes. Performed By: #### L 3300.9900, L503.6030, L506.0400, L506.1000, L3300.8000, L100.0500, L503.6550, L503.0105, L501.9520, L500.4050, L501.9985, L500.4100, L506.0250 ####[facility] [address] [place], [address] Iron+Iron Binding Capacityon 07-01-2024 Iron [Mass/Vol] 53 ug/dL Normal 50-170 [facility] Comment on above: Order Comment: Y Performed By: #### L 3300.9900, L503.6030, L506.0400, L506.1000, L3300.8000, L100.0500, L503.6550, L503.0105, L501.9520, L500.4050, L501.9985, L500.4100, L506.0250 ####[facility] [address] [place], [address] IRON SATURATION 16.3 Normal 15.0-55.0 [facility] Comment on above: Order Comment: Y Performed By: #### L 3300.9900, L503.6030, L506.0400, L506.1000, L3300.8000, L100.0500, L503.6550, L503.0105, L501.9520, L500.4050, L501.9985, L500.4100, L506.0250 ####[facility] [address] [place], [place], [phone] TIBC 326 ug/dL Normal 250-450 [facility] Comment on above: Order Comment: Y Performed By: #### L 3300.9900, L503.6030, L506.0400, L506.1000, L3300.8000, L100.0500, L503.6550, L503.0105, L501.9520, L500.4050, L501.9985, L500.4100, L506.0250 ####[facility] [address] [place], [address] Lipid Profileon 07-01-2024 Cholesterol [Mass/Vol] 169 mg/dL Normal 200 [facility] Comment on above: Order Comment: Y Result Comment: <200 mg/dL Desirable 200-240 mg/dL Borderline >240 mg/dL High Risk Performed By: #### L 3300.9900, L503.6030, L506.0400, L506.1000, L3300.8000, L100.0500, L503.6550, L503.0105, L501.9520, L500.4050, L501.9985, L500.4100, L506.0250 ####[facility] [address] [place], [place], [phone] Cholesterol in HDL [Mass/Vol] 77 mg/dL Normal [facility] Comment on above: Order Comment: Y Result Comment: The drugs N-Acetylcysteine and Metamizole may falsely depress this assay. Reference Range HDL <40 mg/dL Low HDL Cholesterol HDL >or= 60 mg/dL High HDL Cholesterol Performed By: #### L 3300.9900, L503.6030, L506.0400, L506.1000, L3300.8000, L100.0500, L503.6550, L503.0105, L501.9520, L500.4050, L501.9985, L500.4100, L506.0250 ####[facility] [address] [place], [place], [phone](715) Cholesterol in LDL [Mass/Vol] 71 mg/dL Normal 0-130 [facility] Comment on above: Order Comment: Y Performed By: #### L 3300.9900, L503.6030, L506.0400, L506.1000, L3300.8000, L100.0500, L503.6550, L503.0105, L501.9520, L500.4050, L501.9985, L500.4100, L506.0250 ####[facility] [address] [place], [phone]) Cholesterol in VLDL [Mass/Vol] 21 mg/dL Normal 5-40 [facility] Comment on above: Order Comment: Y Performed By: #### L 3300.9900, L503.6030, L506.0400, L506.1000, L3300.8000, L100.0500, L503.6550, L503.0105, L501.9520, L500.4050, L501.9985, L500.4100, L506.0250 ####[facility] [address] [place], [address] Triglyceride [Mass/Vol] 105 mg/dL Normal [facility] Comment on above: Order Comment: Y Result Comment: The drugs N-Acetylcysteine and Metamizole may falsely depress this assay. Serum Triglycerides Reference Interval Normal <150 mg/dL Borderline high 150 - 199 mg/dL High 200 - 499 mg/dL Very High > or = 500 mg/dL Performed By: #### L 3300.9900, L503.6030, L506.0400, L506.1000, L3300.8000, L100.0500, L503.6550, L503.0105, L501.9520, L500.4050, L501.9985, L500.4100, L506.0250 ####[facility] [address] [place], [place], [phone] T4 Free Directon 07-01-2024 T4 FREE DIRECT 0.87 ng/dL Normal 0.76-1.46 [facility] Comment on above: Order Comment: Y Performed By: #### L 3300.9900, L503.6030, L506.0400, L506.1000, L3300.8000, L100.0500, L503.6550, L503.0105, L501.9520, L500.4050, L501.9985, L500.4100, L506.0250 ####[facility] [address] [place], [address] Thyroid Stim Hormone (TSH)on 07-01-2024 TSH 0.846 uIU/mL Normal 0.358-3.74 0 [facility] Comment on above: Order Comment: Y Performed By: #### L 3300.9900, L503.6030, L506.0400, L506.1000, L3300.8000, L100.0500, L503.6550, L503.0105, L501.9520, L500.4050, L501.9985, L500.4100, L506.0250 ####[facility] [address] [place], [place], [phone] Vitamin B12on 07-01-2024 Cobalamin (Vitamin B12) [Mass/Vol] 408 pg/mL Normal 211-911 [facility] Comment on above: Performed By: #### L 3300.9900, L503.6030, L506.0400, L506.1000, L3300.8000, L100.0500, L503.6550, L503.0105, L501.9520, L500.4050, L501.9985, L500.4100, L506.0250 ####[facility] [address] [place], [place], [phone] Vitamin D,25 Hydroxyon 07-01 Vitamin D 25-OH 29.0 ng/mL Normal [facility] Comment on above: Result Comment: Araceli min D 25(OH) Status Range Deficiency <20 ng/mL (50nmol/L) Insufficiency 20 - 30 ng/mL (50 - 75 nmol/L) Sufficiency 30 - 100 ng/mL (75 - 250 nmol/L) Toxicity >100 ng/mL (>250 nmol/L) Performed By: #### L 3300.9900, L503.6030, L506.0400, L506.1000, L3300.8000, L100.0500, L503.6550, L503.0105, L501.9520, L500.4050, L501.9985, L500.4100, L506.0250 ####[facility] [address] [facility] [place], [address] Chest without Contraston Chest without Contrast [facility] Imaging Services [address] [place] [address] Chest without Contrast MR#: [id number] Acct: [id number] Name: AMANDA GRUBBS Rep #: [id number] : 1970 F 54 From: Kervin marvin MD PCP: Dr. Franky Pearson, DO Status: REG CLI Study: Chest without Contrast Date of Exam: 06/30/24 Exam# [id number] Ordering Dr: Rolan Valdes NP DIRECTOR OF CONSERVATION-C [id number] STUDY: CT CHEST WITHOUT CONTRAST REASON FOR [...] CC: ANA Valdes; Dr. Franky Pearson DO [facility]: Signed Normal [facility] Office Visit Reporton 2024 Office Visit Report [facility] [address] [place] [address] OFFICE VISIT Date of Service: 06/27/24 MR#: [id number] Acct: [id number] Patient: AMANDA GRUBBS Rep #: [id number] : 1970 Provider: BLU Clinton Age/Sex: [...] Cosigner Signature: Date (if applicable) CC: Normal [facility] Urgent Care Visit Reporton 0 06-27-2024 Urgent Care Visit Report [facility] [address], [address] [place] [address] OFFICE VISIT Date of Service: 06/27/24 MR#: [id number] Acct: [id number] Name: AMANDA GRUBBS Rep #: [id number] : 1970 Provider: BLU Clinton Age/Sex: 54/F [...] Visit Reasons: COUGH, HEADACHE Chief Complaint: cough, IRIZARRY, ST, chest congest, BA, chills 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 Is patient in pain?: No Allergies No Known Allergies Allergy (Verified 06/27/24 10:16) Is last menstrual period known: No Post menopausal: Yes Patient : No Have you fallen in the past year?: No Nurse's Note: cough, IRIZARRY, ST, chest congest, BA, chills x 3 [...] caffeine: Yes HPI HPI Chief Complaint: cough, IRIZARRY, ST, chest congest, BA, chills Details: AMANDA [...] Hans HURT (more content not included)... Normal [facility] CREATININE FINGERSTICKon CREATININE WB < 1.0 Normal 0.55-1.02 [facility] Comment on above: Performed By: #### L 9100.0200 ####[facility] [address] [place], [address] EGFR WB > 60.0000 Normal >60 [facility] Comment on above: Performed By: #### L 9100.0200 ####[facility] [address] [place], [address] Coronary Angiography CTon Coronary Angiography CT [facility] Imaging Services [address] [place] [address] 06/13/24 1556 MR#: [id number] Acct: [id number] Name: AMANDA GRUBBS Rep #: [id number] : 1970 53 From: Allan Coleman MD [...] DO; Dr. Franky Hollingsworth MD Signed Normal [facility] Limited Chest CT Cardiac Onl yon 06-13-[address] Cardiac Only [facility] Imaging Services [address] [place] [address] Cardiac Only MR#: [id number] Acct: [id number] Name: AMANDA GRUBBS Rep #: [id number] : 1970 F 53 From: Kervin marvin MD PCP: Dr. Franky Pearson DO Status: [facility] Study: Limited Chest CT Cardiac Only Date of Exam: Exam# [id number] Ordering Dr: Franky Hollingsworth MD [id number] STUDY: CT CHEST WITH CONTRAST REASON FOR [...] 11:17 EST Reading Location ID and State: [address] [place] [address] , Service support , CC: Dr. Franky Pearson DO; Dr. Franky Hollingsworth MD Cardiology Consultants: Signed Normal [facility] Oncology Visit Reporton Oncology Visit Report [facility] [address] [place] [address] OFFICE VISIT Date of Service: 05/13/24 1633 MR#: [id number] Acct: [id number] Name: AMANDA GRUBBS Rep #: [id number] : 1970 From: Santiago Og MD Age/Sex: 53/F Location: [facility] Status: Signed HPI Subjective Date of Service [...] 16:36) Medications ???Medication ???Instructions ???Recorded ???Confirmed ???Type qklahdytzb-axlsixbymhzjw-lc ffeine 1 cap PO Q8H PRN 01/16/23 [...] 05/13/241707 Date (more content not included)... Normal [facility] L501.5101on 05-08-2024 GGTP 66 IU/L Abnormal 0-60 [facility] Comment on above: Order Comment: ADD T O BLOOD IN LAB. THANK YOU!! Result Comment: Perf ormed at: [facility] [address] [id number] [employer] Faculty Member: Robson Cedeno PhD, Phone: [phone] Performed By: #### L 501.5101 #### [facility] [address] [place], [place], [phone] CBC W/Diff, Automatedon 04-12 Absolute Lymph 2.06 X10 3/uL Normal 0.83-4.51 [facility] Comment on above: Performed By: #### L 101.9900, L503.6550, L500.4050, L100.0100, L100.9950, L501.6710, L503.6030, L501.5200, L501.2300, L503.0105, L504.2610, L506.0250 ####[facility] [address] [place], [place], [address] Absolute Neut 3.7 X10 3/uL Normal 2.0-7.7 [facility] Comment on above: Performed By: #### L 101.9900, L503.6550, L500.4050, L100.0100, L100.9950, L501.6710, L503.6030, L501.5200, L501.2300, L503.0105, L504.2610, L506.0250 ####[facility] [address], [address](213) Basophils/100 WBC (Bld) 0.6 % Normal 0-1 [facility] Comment on above: Performed By: #### L 101.9900, L503.6550, L500.4050, L100.0100, L100.9950, L501.6710, L503.6030, L501.5200, L501.2300, L503.0105, L504.2610, L506.0250 ####[facility] [address] [facility] [place], [place], [phone]) Eosinophils/100 WBC (Bld) 1.1 % Normal 0-5 [facility] Comment on above: Performed By: #### L 101.9900, L503.6550, L500.4050, L100.0100, L100.9950, L501.6710, L503.6030, L501.5200, L501.2300, L503.0105, L504.2610, L506.0250 ####[facility] [address] [facility] [place], [place], [phone] Erythrocyte distribution width (RBC) [Ratio] 12.4 % Normal 11.6-14.6 [facility] Comment on above: Performed By: #### L 101.9900, L503.6550, L500.4050, L100.0100, L100.9950, L501.6710, L503.6030, L501.5200, L501.2300, L503.0105, L504.2610, L506.0250 ####[facility] [address] [facility] [place], [phone] Hematocrit (Bld) [Volume fraction] 37.6 % Normal 37-47 [facility] Comment on above: Performed By: #### L 101.9900, L503.6550, L500.4050, L100.0100, L100.9950, L501.6710, L503.6030, L501.5200, L501.2300, L503.0105, L504.2610, L506.0250 ####[facility] [address] [place], [place], [phone](805) Hemoglobin (Bld) [Mass/Vol] 12.4 g/dL Normal 12.0-15.0 [facility] Comment on above: Performed By: #### L 101.9900, L503.6550, L500.4050, L100.0100, L100.9950, L501.6710, L503.6030, L501.5200, L501.2300, L503.0105, L504.2610, L506.0250 ####[facility] [address] [facility] [place], [place], [phone](839) IG% 0.200 Normal 0.0-0.9 [facility] Comment on above: Result Comment: IG% - Immature Granulocytes (promyelocytes, myelocytes and metamyelocytes) > 1% indicates that a LEFT SHIFT is Present. Performed By: #### L 101.9900, L503.6550, L500.4050, L100.0100, L100.9950, L501.6710, L503.6030, L501.5200, L501.2300, L503.0105, L504.2610, L506.0250 ####[facility] [address] [place], [address] Lymphocytes/100 WBC (Bld) 32.6 % Normal 19-41 [facility] Comment on above: Performed By: #### L 101.9900, L503.6550, L500.4050, L100.0100, L100.9950, L501.6710, L503.6030, L501.5200, L501.2300, L503.0105, L504.2610, L506.0250 ####[facility] [address] [place], [address] MCH (RBC) [Entitic mass] 30.7 pg Normal 27.0-32.0 [facility] Comment on above: Performed By: #### L 101.9900, L503.6550, L500.4050, L100.0100, L100.9950, L501.6710, L503.6030, L501.5200, L501.2300, L503.0105, L504.2610, L506.0250 ####[facility] [address] [place], [address] MCHC (RBC) [Mass/Vol] 33.0 g/dL Normal 32-36 [facility] Comment on above: Performed By: #### L 101.9900, L503.6550, L500.4050, L100.0100, L100.9950, L501.6710, L503.6030, L501.5200, L501.2300, L503.0105, L504.2610, L506.0250 ####[facility] [address] [place], [address] MCV (RBC) [Entitic vol] 93.1 fL Normal 81-99 [facility] Comment on above: Performed By: #### L 101.9900, L503.6550, L500.4050, L100.0100, L100.9950, L501.6710, L503.6030, L501.5200, L501.2300, L503.0105, L504.2610, L506.0250 ####[facility] [address] [place], [address] Monocytes/100 WBC (Bld) 7.3 % Normal 0-10 [facility] Comment on above: Performed By: #### L 101.9900, L503.6550, L500.4050, L100.0100, L100.9950, L501.6710, L503.6030, L501.5200, L501.2300, L503.0105, L504.2610, L506.0250 ####[facility] [address] [place], [address] Neutrophils/100 WBC (Bld) 58.2 % Normal 47-70 [facility] Comment on above: Performed By: #### L 101.9900, L503.6550, L500.4050, L100.0100, L100.9950, L501.6710, L503.6030, L501.5200, L501.2300, L503.0105, L504.2610, L506.0250 ####[facility] [address] [place], [place], [phone](843 Nucleated RBC (Bld) [#/Vol] 0 10*3/uL Normal 0-5 [facility] Comment on above: Performed By: #### L 101.9900, L503.6550, L500.4050, L100.0100, L100.9950, L501.6710, L503.6030, L501.5200, L501.2300, L503.0105, L504.2610, L506.0250 ####[facility] [address] [place], [place], [phone](393) Platelet mean volume (Bld) [Entitic vol] 9.1 fL Normal 6.2-12.0 [facility] Comment on above: Performed By: #### L 101.9900, L503.6550, L500.4050, L100.0100, L100.9950, L501.6710, L503.6030, L501.5200, L501.2300, L503.0105, L504.2610, L506.0250 ####[facility] [address] [place], [place], [phone] Platelets (Bld) [#/Vol] 305 10*3/uL Normal 150-450 [facility] Comment on above: Performed By: #### L 101.9900, L503.6550, L500.4050, L100.0100, L100.9950, L501.6710, L503.6030, L501.5200, L501.2300, L503.0105, L504.2610, L506.0250 ####[facility] [address] [place], [address] RBC (Bld) [#/Vol] 4.04 10*6/uL Low 4.2-5.4 [facility] Comment on above: Performed By: #### L 101.9900, L503.6550, L500.4050, L100.0100, L100.9950, L501.6710, L503.6030, L501.5200, L501.2300, L503.0105, L504.2610, L506.0250 ####[facility] [address] [place], [address] RDW SD 42.5 fl Normal 35.1-43.9 [facility] Comment on above: Performed By: #### L 101.9900, L503.6550, L500.4050, L100.0100, L100.9950, L501.6710, L503.6030, L501.5200, L501.2300, L503.0105, L504.2610, L506.0250 ####[facility] [address] [place], [address] WBC (Bld) [#/Vol] 6.3 10*3/uL Normal 4.4-11.0 [facility] Comment on above: Performed By: #### L 101.9900, L503.6550, L500.4050, L100.0100, L100.9950, L501.6710, L503.6030, L501.5200, L501.2300, L503.0105, L504.2610, L506.0250 ####[facility] [address] [place], [place], [phone] CRPon 05-06-2024 C-REACTIVE PROT < 2.90 Normal 0.0-3.0 [facility] Comment on above: Order Comment: UNKNO WN1N Result Comment: C-Re active Protein (CRP) provides useful information for the diagnosis, therapy and monitoring of inflammatory processes and associated diseases. For the evaluation of Relative Risk for Cardiovascular Disease, a High Sensitivity CRP (HSCRP) should be ordered. Performed By: #### L 101.9900, L503.6550, L500.4050, L100.0100, L100.9950, L501.6710, L503.6030, L501.5200, L501.2300, L503.0105, L504.2610, L506.0250 ####[facility] [address] [place], [place], [phone] Comprehensive Metabolic Prof ilon 05-06-2024 Albumin [Mass/Vol] 4.1 g/dL Normal 3.2-5.0 [facility] Comment on above: Order Comment: UNKNO WN1N Performed By: #### L 101.9900, L503.6550, L500.4050, L100.0100, L100.9950, L501.6710, L503.6030, L501.5200, L501.2300, L503.0105, L504.2610, L506.0250 ####[facility] [address] [place], [place], [phone] Albumin/Globulin [Mass ratio] 1.2 {ratio} Normal 0.9-2.4 [facility] Comment on above: Order Comment: UNKNO WN1N Performed By: #### L 101.9900, L503.6550, L500.4050, L100.0100, L100.9950, L501.6710, L503.6030, L501.5200, L501.2300, L503.0105, L504.2610, L506.0250 ####[facility] [address] [place], [place], [phone] ALK P 88 U/L Normal 45-117 [facility] Comment on above: Order Comment: UNKNO WN1N Performed By: #### L 101.9900, L503.6550, L500.4050, L100.0100, L100.9950, L501.6710, L503.6030, L501.5200, L501.2300, L503.0105, L504.2610, L506.0250 ####[facility] [address] [place], [place], [phone] ALT [Catalytic activity/Vol] 89 U/L High 13-56 [facility] Comment on above: Order Comment: UNKNO WN1N Performed By: #### L 101.9900, L503.6550, L500.4050, L100.0100, L100.9950, L501.6710, L503.6030, L501.5200, L501.2300, L503.0105, L504.2610, L506.0250 ####[facility] [address] [place], [place], [id number] AST [Catalytic activity/Vol] 46 U/L High 15-37 [facility] Comment on above: Order Comment: UNKNO WN1N Performed By: #### L 101.9900, L503.6550, L500.4050, L100.0100, L100.9950, L501.6710, L503.6030, L501.5200, L501.2300, L503.0105, L504.2610, L506.0250 ####[facility] [address] [place], [place], [address] Bilirubin [Mass/Vol] 0.20 mg/dL Normal 0.20-1.00 [facility] Comment on above: Order Comment: UNKNO WN1N Result Comment: For patients on eltrombopag therapy, use of Dimension [place] TBIL is not recommended. Performed By: #### L 101.9900, L503.6550, L500.4050, L100.0100, L100.9950, L501.6710, L503.6030, L501.5200, L501.2300, L503.0105, L504.2610, L506.0250 ####[facility] [address] [place], [address] BUN/CRE 7.7 RATIO Low 10-20 [facility] Comment on above: Order Comment: UNKNO WN1N Performed By: #### L 101.9900, L503.6550, L500.4050, L100.0100, L100.9950, L501.6710, L503.6030, L501.5200, L501.2300, L503.0105, L504.2610, L506.0250 ####[facility] [address] [place], [place], [phone](283) CA,Total 9.6 mg/dL Normal 8.5-10.1 [facility] Comment on above: Order Comment: UNKNO WN1N Performed By: #### L 101.9900, L503.6550, L500.4050, L100.0100, L100.9950, L501.6710, L503.6030, L501.5200, L501.2300, L503.0105, L504.2610, L506.0250 ####[facility] [address] [place], [address] Chloride [Moles/Vol] 107 mmol/L Normal 98-107 [facility] Comment on above: Order Comment: UNKNO WN1N Performed By: #### L 101.9900, L503.6550, L500.4050, L100.0100, L100.9950, L501.6710, L503.6030, L501.5200, L501.2300, L503.0105, L504.2610, L506.0250 ####[facility] [address] [place], [place], [id number](301) CO2 [Moles/Vol] 26.0 mmol/L Normal 21.0-32.0 [facility] Comment on above: Order Comment: UNKNO WN1N Performed By: #### L 101.9900, L503.6550, L500.4050, L100.0100, L100.9950, L501.6710, L503.6030, L501.5200, L501.2300, L503.0105, L504.2610, L506.0250 ####[facility] [address] [place], [address] Creatinine [Mass/Vol] 0.78 mg/dL Normal 0.55-1.02 [facility] Comment on above: Order Comment: UNKNO WN1N Result Comment: The validity of the calculated GFR GFRAA in patients over 70 years has not been determined. Clinical correlation is essential. Performed By: #### L 101.9900, L503.6550, L500.4050, L100.0100, L100.9950, L501.6710, L503.6030, L501.5200, L501.2300, L503.0105, L504.2610, L506.0250 ####[facility] [address] [place], [place], [id number] EST GFR - AA 99 mL/min Normal >60 [facility] Comment on above: Order Comment: UNKNO WN1N Result Comment: Afri can [place] GFR Calc Performed By: #### L 101.9900, L503.6550, L500.4050, L100.0100, L100.9950, L501.6710, L503.6030, L501.5200, L501.2300, L503.0105, L504.2610, L506.0250 ####[facility] [address] [place], [address](805) GAP 7 Normal 5-15 [facility] Comment on above: Order Comment: UNKNO WN1N Performed By: #### L 101.9900, L503.6550, L500.4050, L100.0100, L100.9950, L501.6710, L503.6030, L501.5200, L501.2300, L503.0105, L504.2610, L506.0250 ####[facility] [address] [place], [place], [id number](828) GFR/1.73 sq M.predicted among non-blacks MDRD (S/P/Bld) [Vol rate/Area] 82 mL/min/{1.73_m2} Normal >60 [facility] Comment on above: Order Comment: UNKNO WN1N Result Comment: Non- GFR Calc Performed By: #### L 101.9900, L503.6550, L500.4050, L100.0100, L100.9950, L501.6710, L503.6030, L501.5200, L501.2300, L503.0105, L504.2610, L506.0250 ####[facility] [address] [place], [place], [id number] Globulin (S) [Mass/Vol] 3.5 g/dL Normal 2.2-4.2 [facility] Comment on above: Order Comment: UNKNO WN1N Performed By: #### L 101.9900, L503.6550, L500.4050, L100.0100, L100.9950, L501.6710, L503.6030, L501.5200, L501.2300, L503.0105, L504.2610, L506.0250 ####[facility] [address] [place], [place], [phone] Glucose [Mass/Vol] 75 mg/dL Normal 74-106 [facility] Comment on above: Order Comment: UNKNO WN1N Performed By: #### L 101.9900, L503.6550, L500.4050, L100.0100, L100.9950, L501.6710, L503.6030, L501.5200, L501.2300, L503.0105, L504.2610, L506.0250 ####[facility] [address] [place], [address] Potassium [Moles/Vol] 4.3 mmol/L Normal 3.5-5.1 [facility] Comment on above: Order Comment: UNKNO WN1N Performed By: #### L 101.9900, L503.6550, L500.4050, L100.0100, L100.9950, L501.6710, L503.6030, L501.5200, L501.2300, L503.0105, L504.2610, L506.0250 ####[facility] [address] [place], [place], [phone](232) Sodium [Moles/Vol] 140 mmol/L Normal 136-145 [facility] Comment on above: Order Comment: UNKNO WN1N Performed By: #### L 101.9900, L503.6550, L500.4050, L100.0100, L100.9950, L501.6710, L503.6030, L501.5200, L501.2300, L503.0105, L504.2610, L506.0250 ####[facility] [address] [place], [address] T PROT 7.6 g/dL Normal 6.4-8.2 [facility] Comment on above: Order Comment: UNKNO WN1N Performed By: #### L 101.9900, L503.6550, L500.4050, L100.0100, L100.9950, L501.6710, L503.6030, L501.5200, L501.2300, L503.0105, L504.2610, L506.0250 ####[facility] [address] [place], [place], [id number] Urea nitrogen [Mass/Vol] 6 mg/dL Low 7-18 [facility] Comment on above: Order Comment: ELVISO WN1N Performed By: #### L 101.9900, L503.6550, L500.4050, L100.0100, L100.9950, L501.6710, L503.6030, L501.5200, L501.2300, L503.0105, L504.2610, L506.0250 ####[facility] [address] [place], [address] Erythrocyte Sed Rateon 05-06 SED RATE 8 mm/hr Normal 0-30 [facility] Comment on above: Performed By: #### L 101.9900, L503.6550, L500.4050, L100.0100, L100.9950, L501.6710, L503.6030, L501.5200, L501.2300, L503.0105, L504.2610, L506.0250 ####[facility] [address] [place], [address] Ferritinon 05-06-2024 Ferritin [Mass/Vol] 21 ng/mL Normal 8-252 [facility] Comment on above: Order Comment: ELVISO WN1N Performed By: #### L 101.9900, L503.6550, L500.4050, L100.0100, L100.9950, L501.6710, L503.6030, L501.5200, L501.2300, L503.0105, L504.2610, L506.0250 ####[facility] [address] [place], [address] Folates, (Folic Acid)on 04-12 FOLATES 19.70 ng/mL Normal 3.1-55.4 [facility] Comment on above: Order Comment: UNKNO WN1N Performed By: #### L 101.9900, L503.6550, L500.4050, L100.0100, L100.9950, L501.6710, L503.6030, L501.5200, L501.2300, L503.0105, L504.2610, L506.0250 ####[facility] [address] [place], [place], [phone] Iron+Iron Binding Capacityon 05-06-2024 Iron [Mass/Vol] 73 ug/dL Normal 50-170 [facility] Comment on above: Order Comment: UNKNO WN1N Performed By: #### L 101.9900, L503.6550, L500.4050, L100.0100, L100.9950, L501.6710, L503.6030, L501.5200, L501.2300, L503.0105, L504.2610, L506.0250 ####[facility] [address] [place], [place], [phone] IRON SATURATION 19.2 Normal 15.0-55.0 [facility] Comment on above: Order Comment: UNKNO WN1N Performed By: #### L 101.9900, L503.6550, L500.4050, L100.0100, L100.9950, L501.6710, L503.6030, L501.5200, L501.2300, L503.0105, L504.2610, L506.0250 ####[facility] [address] [place], [place], [id number] TIBC 380 ug/dL Normal 250-450 [facility] Comment on above: Order Comment: UNKNO WN1N Performed By: #### L 101.9900, L503.6550, L500.4050, L100.0100, L100.9950, L501.6710, L503.6030, L501.5200, L501.2300, L503.0105, L504.2610, L506.0250 ####[facility] [address] [place], [address] LDHon 05-06-2024 LDH 211 U/L Normal 84-246 [facility] Comment on above: Order Comment: UNKNO WN1N Performed By: #### L 101.9900, L503.6550, L500.4050, L100.0100, L100.9950, L501.6710, L503.6030, L501.5200, L501.2300, L503.0105, L504.2610, L506.0250 ####[facility] [address] [place], [place], [address] Magnesiumon 05-06-2024 Magnesium [Mass/Vol] 2.2 mg/dL Normal 1.6-2.6 [facility] Comment on above: Order Comment: UNKNO WN1N Performed By: #### L 101.9900, L503.6550, L500.4050, L100.0100, L100.9950, L501.6710, L503.6030, L501.5200, L501.2300, L503.0105, L504.2610, L506.0250 ####[facility] [address] [place], [address] Oncology Visit Reporton 04-12 Oncology Visit Report [facility] [address] [place] [address] OFFICE VISIT Date of Service: 05/06/24 1045 MR#: [id number] Acct: [id number] Name: AMANDA GRUBBS Rep #: [id number] : 1970 From: Santiago Og MD Age/Sex: 53/F Location: [facility] Status: Signed HPI Subjective Date of Service [...] complaints, except as documented Intake Vital Signs 07/03/24 14:29 05/05/24 11:34 05/06/24 10:48 05/06/24 10:55 [...] 10:50) Medications ???Medication ???Instructions ???Recorded ???Confirmed ???Type ypzxsghxpd-vocgfhbxpwblx-ng ffeine 1 cap PO Q8H PRN 01/16/23 [...] 05/06/24 His (more content not included)... Normal [facility] Phosphoruson 05-06-2024 Phosphate [Mass/Vol] 4.5 mg/dL Normal 2.5-4.9 [facility] Comment on above: Order Comment: ANNIKA WN1N Performed By: #### L 101.9900, L503.6550, L500.4050, L100.0100, L100.9950, L501.6710, L503.6030, L501.5200, L501.2300, L503.0105, L504.2610, L506.0250 ####[facility] [address] [place], [place], [address] Retic Panelon 05-06-2024 IM RET FRACTION 14.20 Normal 3.00-15.90 [facility] Comment on above: Performed By: #### L 101.9900, L503.6550, L500.4050, L100.0100, L100.9950, L501.6710, L503.6030, L501.5200, L501.2300, L503.0105, L504.2610, L506.0250 ####[facility] [address] [place], [place], [id number] RET-HE 34.6 pg Normal 30-35 [facility] Comment on above: Performed By: #### L 101.9900, L503.6550, L500.4050, L100.0100, L100.9950, L501.6710, L503.6030, L501.5200, L501.2300, L503.0105, L504.2610, L506.0250 ####[facility] [address] [place], [place], [address] Retic Count 1.33 Normal 0.5-1.5 [facility] Comment on above: Performed By: #### L 101.9900, L503.6550, L500.4050, L100.0100, L100.9950, L501.6710, L503.6030, L501.5200, L501.2300, L503.0105, L504.2610, L506.0250 ####[facility] [address] [place], [address] Vitamin B12on 05-06-2024 Cobalamin (Vitamin B12) [Mass/Vol] 720 pg/mL Normal 211-911 [facility] Comment on above: Performed By: #### L 101.9900, L503.6550, L500.4050, L100.0100, L100.9950, L501.6710, L503.6030, L501.5200, L501.2300, L503.0105, L504.2610, L506.0250 ####[facility] [address] [place], [address] 12 Lead EKG performed by [facility] on 05-05-2024 12 Lead EKG performed by [facility] [address] [place] [address] 12 Lead EKG performed by [facility] 05/05/24 0820 MR#: [id number] Acct: [id number] Name: AMANDA GRUBBS Rep #: [id number] : 1970 53 From: Franky Hollingsworth MD Attending Dr: Dr. Franky Hollingsworth MD Status: DE P AMB Ordering Dr: Franky Hollingsworth MD Date: 05/05/24 Location: [facility] Sex: F C Admitted: [facility]/12 Lead EKG performed by [facility] ECG Report Interpretation S inus Rhythm WITHIN NORMAL LIMITSElectronically signed on 05/05/2024 at 12:[address] Franky Hollingsworth [employer] Version 8610 05/05/24 1217 Date Franky Hollingsworth MD CC: Dr. Franky Pearson, DO Date Dictated: 05/05/24819 Date Transcribed: 05/05/24819 Cardiology Consultants: Signed Normal [facility] Cardiology Visit Reporton Cardiology Visit Report [facility] [address] [place] [address] OFFICE VISIT Date of Service: 05/05/24 MR#: [id number] Acct: [id number] Name: AMANDA GRUBBS Rep #: [id number] : 1970 Provider: Dr. Franky clark MD Age/Sex: 53/F Location: [facility] Status: Signed HPI HPI History [...] air Intake Visit Reasons: FAMILY HX OF [place] (LILI) 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 Accompanied by: Is patient in pain?: No Allergies No Known Allergies Allergy (Verified 05/05/24 11:34) Medications ???Medication ???Instructions ???Recorded ???Confirmed ???Type kwcrmaymyd-udswtfwkqxnmt-qu ffeine 1 cap PO Q8H PRN 01/16/23 [...] you fallen in the past year?: [facility] Anginal pain Somatic dysfunction of lower extremity Psoriatic arthritis Prediabetes Family history of ischemic heart disease Anxiety Secondary insomnia Iron deficiency B12 deficiency Major depression in remission Hypothyroid Anemia Acute pharyngitis, unspecified Aphthous ulcer of mouth delivery delivered Surgical History History of endometrial ablation History of colonoscopy H (more content not included)... Normal [facility] Office Visit Reporton 2023 Office Visit Report [facility] [address] [place] [address] OFFICE VISIT Date of Service: 04/17/24 MR#: [id number] Acct: [id number] Patient: AMANDA GRUBBS Rep #: [id number] : 1970 Provider: BLU Clinton Age/Sex: 53/F Location: [facility] Status: Signed Employer Purchased Covid Test Note: Patient here today for Covid Testing, requested by their Employer. 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 [address] OFFICE VISIT Date of Service: 04/17/24 MR#: [id number] Acct: [id number] Patient: AMANDA GRUBBS Rep #: [id number] : 1970 Provider: BLU Clinton Age/Sex: [...] Lemaignshelley Signature: Date (if applicable) CC: Normal [facility] Urgent Care Visit Reporton 1 06-17-2023 Urgent Care Visit Report [facility] [address] , [address] [place] [address] OFFICE VISIT Date of Service: 04/17/24 MR#: [id number] Acct: [id number] Name: AMANDA GRUBBS Rep #: [id number] : 1970 Provider: BLU Clinton Age/Sex: 53/F [...] Chief Complaint: fever, fatigue, PND, BA , IRIZARRY 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 Is patient in pain?: Yes Allergies No Known Allergies Allergy (Verified 04/17/24 13:38) Is last menstrual period known: No Post menopausal: No Patient : No Have you fallen in the past year?: No Nurse's Note: fever, fatigue, PND, BA , IRIZARRY x 4 days without resolve. PFSH Medical [...] Chief Complaint: fever, fatigue, PND, BA , IRIZARRY Details: AMANDA GRUBBS, is a 53 F [...] Exam Const General: cooperative and healthy appearing [facility] Head: normal to inspection Ears: hearing [...] Signature: Date (more content not included)... Normal [facility] Laboratory - Chemistry and C hemistry - challengeOrdered By: Franky Pearson on 09-12-2023 Cobalamin (Vitamin B12) [Mass/Vol] 364 pg/mL 211-911 [facility] Ferritin [Mass/Vol] 26 ng/mL 8-252 [facility] Serum or plasma thiamine kayla surement (mass/volume)Ordered By: Franky Pearson on 09-12-2023 Thiamine [Mass/Vol] 72.8 nmol/L 66.5-200.0 [facility] Comment on above: Performed at: [address] [id number] Director: James Herrera MD, Phone: [phone] Basophil percentageOrdered B y: Franky Pearson on 06-22-2023 Bilirubin [Mass/Vol] 0.40 mg/dL 0.20-1.00 [facility] Comment on above: For patients on eltr ombopag therapy, use of Dimension [place] TBIL is not recommended. Chloride [Moles/Vol] 108 mmol/L 98-107 [facility] Cholesterol [Mass/Vol] 176 mg/dL <200 [facility] Comment on above: <200 mg/dL Desirable 200-240 mg/dL Borderline >240 mg/dL High Risk Glucose [Mass/Vol] 82 mg/dL 74-106 [facility] Potassium [Moles/Vol] 4.5 mmol/L 3.5-5.1 [facility] Protein [Mass/Vol] 7.6 g/dL 6.4-8.2 [facility] Sodium [Moles/Vol] 141 mmol/L 136-145 [facility] Triglyceride [Mass/Vol] 58 mg/dL <199 [facility] Comment on above: The drugs N-Acetylcy steine and Metamizole may falsely depress this assay.Serum Triglycerides Reference Interval Normal <150 mg/dL Borderline high 150 - 199 mg/dL High 200 - 499 mg/dL Very High > or = 500 mg/dL WBC (Bld) [#/Vol] 5.4 10*3/uL 4.4-11.0 [facility] Blood erythrocytes count (nu mber/volume)Ordered By: Franky Pearson on 06-22-2023 RBC (Bld) [#/Vol] 4.25 10*6/uL 4.2-5.4 [facility] Blood hemoglobin measurement (mass/volume)Ordered By: Franky Pearson on 06-22-2023 Hemoglobin (Bld) [Mass/Vol] 12.7 g/dL 12.0-15.0 [facility] Blood platelet mean volumeOr dered By: Franky Pearson on 06-22-2023 Platelet mean volume (Bld) [Entitic vol] 9.3 fL 6.2-12.0 [facility] Determination of erythrocyte mean corpuscular volume (MCV)Ordered By: Franky Pearson on 06-22-2023 MCV (RBC) [Entitic vol] 95.1 fL 81-99 [facility] Folic acid serumOrdered By: Franky Pearson on 06-22-2023 Folate [Mass/Vol] 7.40 ng/mL 3.1-55.4 [facility] Hematocrit Auto (Bld) [Volum e fraction]Ordered By: Franky Pearson on 06-22-2023 Hematocrit (Bld) [Volume fraction] 40.4 % 37-47 [facility] Laboratory - Chemistry and C hemistry - challengeOrdered By: Franky Pearson on 06-22-2023 ALP [Catalytic activity/Vol] 84 U/L 45-117 [facility] ALT [Catalytic activity/Vol] 24 U/L 13-56 [facility] CO2 [Moles/Vol] 29.0 mmol/L 21.0-32.0 [facility] Cobalamin (Vitamin B12) [Mass/Vol] 219 pg/mL 211-911 [facility] Globulin (S) [Mass/Vol] 3.8 g/dL 2.2-4.2 [facility] Urea nitrogen/Creatinine [Mass ratio] 13.4 mg/mg 10-20 [facility] Laboratory - Hematology and Cell countsOrdered By: Franky Pearson on 06-22-2023 Erythrocyte distribution width (RBC) [Entitic vol] 44.1 fL 35.1-43.9 [facility] Erythrocyte distribution width (RBC) [Ratio] 12.7 % 11.6-14.6 [facility] MCH (RBC) [Entitic mass] 29.9 pg 27.0-32.0 [facility] MCHC Auto (RBC) [Mass/Vol]Or dered By: Franky Pearson on 06-22-2023 MCHC (RBC) [Mass/Vol] 31.4 g/dL 32-36 [facility] No Panel InformationOrdered By: Franky Pearson on 06-22-2023 Estimated GFR (MDRD) Amer 78 mL/min >60 [facility] Comment on above: GFR Calc Estimated GFR (MDRD) Non-Af Amer 64 mL/min >60 [facility] Comment on above: Non- GFR Calc Thyroid Stimulating Hormone (TSH) 1.00 uIU/mL 0.358-3.74 [facility] Vitamin D 25-Hydroxy 54.4 ng/mL [facility] Comment on above: Vitamin D 25(OH) Sta tus Range Deficiency <20 ng/mL (50nmol/L) Insufficiency 20 - 30 ng/mL (50 - 75 nmol/L) Sufficiency 30 - 100 ng/mL (75 - 250 nmol/L) Toxicity >100 ng/mL (>250 nmol/L) Platelets bldOrdered By: Carmen irizarrykimberly Lili on 06-22-2023 Platelets (Bld) [#/Vol] 312 10*3/uL 150-450 [facility] Serum or plasma albumin sharifa urement (mass/volume)Ordered By: Franky Pearson on 06-22-2023 Albumin [Mass/Vol] 3.8 g/dL 3.2-5.0 [facility] Serum or plasma albumin/glob ulin mass ratioOrdered By: Franky Pearson on 06-22-2023 Albumin/Globulin [Mass ratio] 1.0 {ratio} 0.9-2.4 [facility] Serum or plasma calcium sharifa urement (mass/volume)Ordered By: Franky Pearson on 06-22-2023 Calcium [Mass/Vol] 9.5 mg/dL 8.5-10.1 [facility] Serum or plasma cholesterol in HDL measurement (mass/volume)Ordered By: Franky Pearson on 06-22-2023 Cholesterol in HDL [Mass/Vol] 76 mg/dL >40 [facility] Comment on above: The drugs N-Acetylcy steine and Metamizole may falsely depress this assay. Reference Range HDL <40 mg/dL Low HDL Cholesterol HDL >or= 60 mg/dL High HDL Cholesterol Serum or plasma cholesterol in VLDL measurement (mass/volume)Ordered By: Franky Pearson on 06-22-2023 Cholesterol in VLDL [Mass/Vol] 12 mg/dL 5-40 [facility] Serum or plasma creatinine m easurement (mass/volume)Ordered By: Franky Pearson on 06-22-2023 Creatinine [Mass/Vol] 0.97 mg/dL 0.55-1.02 [facility] Comment on above: The validity of the calculated GFR & GFRAA in patients over 70 years has not been determined. Clinical correlation is essential. Serum or plasma ferritin kayla surement (mass/volume)Ordered By: Franky Pearson on 06-22-2023 Ferritin [Mass/Vol] 18 ng/mL 8-252 [facility] Serum or plasma low density lipoprotein (LDL) cholesterol measurement (mass/volume)Ordered By: Franky Pearson on 06-22-2023 Cholesterol in LDL [Mass/Vol] 88 mg/dL 0-130 [facility] Serum or plasma thiamine kayla surement (mass/volume)Ordered By: Franky Pearson on 06-22-2023 Thiamine [Mass/Vol] 157.3 nmol/L 66.5-200.0 [facility] Serum or plasma urea nitroge n measurement (mass/volume)Ordered By: Franky Pearson on 06-22-2023 Urea nitrogen [Mass/Vol] 13 mg/dL 7-18 [facility] Serum or plasma zinc measure ment (mass/volume)Ordered By: Franky Pearson on 06-22-2023 Zinc [Mass/Vol] 84 ug/dL 44-115 [facility] Comment on above: Detection Limit = 5P erformed at: - [address] [id number] Director: James Herrera MD, Phone: [phone] Thin prep Papanicolaou smear with manual screeningOrdered By: Franky Pearson on 06-22-2023 Thin prep Papanicolaou smear with manual screening 17 U/L 15-37 [facility] Thin prep Papanicolaou smear with manual screening 4 5-15 [facility] Whole blood hemoglobin A1c/t otal hemoglobin ratio (mass fraction)Ordered By: Franky Pearson on 06-22-2023 HbA1c (Bld) [Mass fraction] 5.4 % 3.8-5.6 [facility] Comment on above: Normal < 5.7 % Predi abetic 5.7 - 6.4 % Diabetic >or= 6.5 % Please note range changes. Laboratory - Microbiology an d Antimicrobial susceptibilityon 05-13-2023 SARS-CoV-2 (COVID-19) RNA SANTINO+probe Ql (Unsp spec) Not detected [facility] No Panel Informationon 05-13 POC Nasal Swab Influenza A,B Not detected [facility] POC Nasal Swab RSV Not detected [facility] 36on 01-16-2023 36 Name of Caller: Ayesha i Contact Reason for Appointment: Pt needs to cancel upcoming appt and the pt sill call back to resx. Please advise Office Name: [facility] Medication Refills need, if any: NA Medication Name: NA [facility] 36on 11-06-2022 36 Please contact the p t regarding the dose of ozempic. 1 mg was prescibed on 08/18/2022. The request for 2 mg does not match the prescription. Please let me know. Thank you [facility] 36on 10-26-2022 36 Requested Prescripti ons Pending Prescriptions Disp Refills Semaglutide, 2 MG/DOSE, (Ozempic, 2 MG/DOSE,) 8 MG/3ML solution pen-injector 12 mL 0 Sig: Inject 2 mg under the skin 1 (one) time per week. Last seen on 08-18-22 by NK Next appt on 12/15/[address] [facility] B1WBon 09-13-2022 Vitamin B1 (TDP), Whole Blood 92.0 nmol/L Normal 84.3-213.3 [facility] ([place]) Comment on above: Result Comment: Disr egard reference range. Test performed at [facility]. Reference interval: 70-180 nmol/L This assay measures the concentration of thiamine diphosphate (TDP), the primary active form of vitamin B1. Approximately 90 percent of vitamin B1 present in the whole blood is TDP. Thiamine and thiamine monophosphate, which compromise the remaining 10 present are not measured. This test was developed and its performance characteristics determine by [facility] [employer]. It has not been cleared or approved by the [place] Food and Drug administration. This test was performed in a CLIA certified laboratory and is intended for clinical purposes. Performed By: [address] [address] [employer] Faculty Member: Kenny Nunes III, M.D. CLIA#: [id number] Performed By: #### HUMBERTO WADE #### [address] [address] [employer] 09-04-2022 Zinc (s) 65 UG/DL Normal 60-120 [facility] ([place]) Comment on above: Result Comment: This test was developed and its performance characteristics determined by [facility]'s [facility] [place] [facility] It has not been cleared or approved by the FDA. [facility] is regulated under CLIA as qualified to perform high-complexity testing. This test is used for clinical purposes. It should not be regarded as investigational or for research. Performed By: [place] [id number] [employer] Member: Kenny Nunes III, M.D. CLIA#: [id number] Performed By: #### HUMBERTO WADE #### [address] [address] .Auto Diffon 09-02-2022 Basophil, Absolute 0.0 10 3/mcL Normal 0.0-0.2 [facility] ([place]) Comment on above: Performed By: #### H CV1 #### [address] [address] #### CBC, ADIFF, CK, ANEU, CMP, A1C, LIPID, VIDH, MG, TSH, GFR, B1WB, ZINC #### [address] [address] Basophils/100 WBC (Bld) 0.5 % Normal 0.0-2.5 [facility] ([place]) Comment on above: Performed By: #### H CV1 #### [address] [address] #### CBC, ADIFF, CK, ANEU, CMP, A1C, LIPID, VIDH, MG, TSH, GFR, B1WB, ZINC #### [address] [address] Eosinophil, Absolute 0.2 10 3/mcL Normal 0.0-0.4 [facility] ([place]) Comment on above: Performed By: #### H CV1 #### [place] [address] #### CBC, ADIFF, CK, ANEU, CMP, A1C, LIPID, VIDH, MG, TSH, GFR, B1WB, ZINC #### [address] [address] Eosinophils/100 WBC (Bld) 2.1 % Normal 0.0-7.0 [facility] ([place]) Comment on above: Performed By: #### H CV1 #### [place] [address] #### CBC, ADIFF, CK, ANEU, CMP, A1C, LIPID, VIDH, MG, TSH, GFR, B1WB, ZINC #### [address] [address] Lymphocyte, Absolute 2.3 10 3/mcL Normal 0.8-3.9 [facility] ([place]) Comment on above: Performed By: #### H CV1 #### [place] [address] #### CBC, ADIFF, CK, ANEU, CMP, A1C, LIPID, VIDH, MG, TSH, GFR, B1WB, ZINC #### [address] [address] Lymphocytes/100 WBC (Bld) 30.9 % Normal 10.0-50.0 [facility] ([place]) Comment on above: Performed By: #### H CV1 #### [place] [address] #### CBC, ADIFF, CK, ANEU, CMP, A1C, LIPID, VIDH, MG, TSH, GFR, B1WB, ZINC #### [address] [address] Monocyte, Absolute 0.7 10 3/mcL Normal 0.2-1.0 [facility] ([place]) Comment on above: Performed By: #### H CV1 #### [address] [address] #### CBC, ADIFF, CK, ANEU, CMP, A1C, LIPID, VIDH, MG, TSH, GFR, B1WB, ZINC #### [address] [address] Monocytes/100 WBC (Bld) 9.0 % Normal 1.7-13.0 [facility] ([place]) Comment on above: Performed By: #### H CV1 #### [place] [address] #### CBC, ADIFF, CK, ANEU, CMP, A1C, LIPID, VIDH, MG, TSH, GFR, B1WB, ZINC #### [address] [address] Neutrophils/100 WBC (Bld) 57.5 % Normal 37.0-80.0 [facility] ([place]) Comment on above: Performed By: #### H CV1 #### [place] [address] #### CBC, ADIFF, CK, ANEU, CMP, A1C, LIPID, VIDH, MG, TSH, GFR, B1WB, ZINC #### [address] [address] .GFRon 09-02-2022 GFR 97 ml/min/1.73sqm Normal [facility] ([place]) Comment on above: Result Comment: GFR Population [...] 15 mL/min/1.73 square meters Performed By: #### HUMBERTO WADE #### [address] [address] GFR Non- 80 ml/min/1.73sqm Normal [facility] ([place]) Comment on above: Result Comment: GFR Population [...] Performed By: #### A MY, TROPHS #### [address] [address] .NEUABSon 09-02-2022 Neutrophil, Absolute 4.3 10 3/mcL Normal 2.9-6.2 [facility] ([place]) Comment on above: Performed By: #### H CV1 #### [address] [address] #### CBC, ADIFF, CK, ANEU, CMP, A1C, LIPID, VIDH, MG, TSH, GFR, B1WB, ZINC #### [address] [address] A1Con 09-02-2022 HbA1c (Bld) [Mass fraction] 5.6 % Normal 4.3-6.4 [facility] ([place]) Comment on above: Performed By: #### H CV1 #### [address] [address] #### CBC, ADIFF, CK, ANEU, CMP, A1C, LIPID, VIDH, MG, TSH, GFR, B1WB, ZINC #### [address] [address] CBCon 09-02-2022 Erythrocyte distribution width (RBC) [Ratio] 13.6 % Normal 11.5-14.5 [facility] ([place]) Comment on above: Performed By: #### H CV1 #### [address] [address] #### CBC, ADIFF, CK, ANEU, CMP, A1C, LIPID, VIDH, MG, TSH, GFR, B1WB, ZINC #### [address] [address] Hematocrit (Bld) [Volume fraction] 35.7 % Low 37.0-47.0 [facility] ([place]) Comment on above: Performed By: #### H CV1 #### [place] [address] #### CBC, ADIFF, CK, ANEU, CMP, A1C, LIPID, VIDH, MG, TSH, GFR, B1WB, ZINC #### [address] [address] Hgb 12.2 G/dL Normal 12.0-16.0 [facility] ([place]) Comment on above: Performed By: #### H CV1 #### [address] [address] #### CBC, ADIFF, CK, ANEU, CMP, A1C, LIPID, VIDH, MG, TSH, GFR, B1WB, ZINC #### [address] [address] MCH (RBC) [Entitic mass] 30.9 pg Normal 27.0-31.2 [facility] ([place]) Comment on above: Performed By: #### H CV1 #### [address] [address] #### CBC, ADIFF, CK, ANEU, CMP, A1C, LIPID, VIDH, MG, TSH, GFR, B1WB, ZINC #### [address] [address] MCHC 34.1 G/dL Normal 33.0-37.0 [facility] ([place]) Comment on above: Performed By: #### H CV1 #### [facility] [address] [place], [place] [address] #### CBC, ADIFF, CK, ANEU, CMP, A1C, LIPID, VIDH, MG, TSH, GFR, B1WB, ZINC #### [address] [address] MCV (RBC) [Entitic vol] 90.7 fL Normal 80.0-94.0 [facility] ([place]) Comment on above: Performed By: #### H CV1 #### [place] [address] #### CBC, ADIFF, CK, ANEU, CMP, A1C, LIPID, VIDH, MG, TSH, GFR, B1WB, ZINC #### [address] [address] Platelet 419 10 3/mcL High 130-400 [facility] ([place]) Comment on above: Performed By: #### H CV1 #### [place] [address] #### CBC, ADIFF, CK, ANEU, CMP, A1C, LIPID, VIDH, MG, TSH, GFR, B1WB, ZINC #### [address] [address] Platelet mean volume (Bld) [Entitic vol] 6.6 fL Low 7.4-10.4 [facility] ([place]) Comment on above: Performed By: #### H CV1 #### [place] [address] #### CBC, ADIFF, CK, ANEU, CMP, A1C, LIPID, VIDH, MG, TSH, GFR, B1WB, ZINC #### [address] [address] RBC 3.94 10 6/mcL Low 4.20-5.40 [facility] ([place]) Comment on above: Performed By: #### H CV1 #### [place] [address] #### CBC, ADIFF, CK, ANEU, CMP, A1C, LIPID, VIDH, MG, TSH, GFR, B1WB, ZINC #### [address] [address] WBC 7.5 10 3/mcL Normal 4.6-10.8 [facility] ([place]) Comment on above: Performed By: #### H CV1 #### [address] [address] #### CBC, ADIFF, CK, ANEU, CMP, A1C, LIPID, VIDH, MG, TSH, GFR, B1WB, ZINC #### [address] [address] CKon 09-02-2022 CK [Catalytic activity/Vol] 32 U/L Normal 26-192 [facility] ([place]) Comment on above: Performed By: #### H CV1 #### [address] [address] #### CBC, ADIFF, CK, ANEU, CMP, A1C, LIPID, VIDH, MG, TSH, GFR, B1WB, ZINC #### [address] [address] CMPon 09-02-2022 Albumin Level 3.7 G/dL Normal 3.5-5.0 [facility] ([place]) Comment on above: Performed By: #### A KRISTAL CONTEHS #### [address] [address] Albumin/Globulin [Mass ratio] 1.1 {ratio} Normal 1.1-2.5 [facility] ([place]) Comment on above: Performed By: #### A KRISTAL CONTEHS #### [address] [address] ALP [Catalytic activity/Vol] 83 U/L Normal 40-135 [facility] ([place]) Comment on above: Performed By: #### A WERO TROPHS #### [address] [address] ALT [Catalytic activity/Vol] 27 U/L Normal 14-59 [facility] ([place]) Comment on above: Performed By: #### A WERO TROPHS #### [address] [address] AST [Catalytic activity/Vol] 15 U/L Normal 10-40 [facility] ([place]) Comment on above: Performed By: #### A KRISTAL CONTEHS #### [address] [address] Bili Total 0.2 mg/dL Normal 0.2-1.0 [facility] ([place]) Comment on above: Result Comment: Use of this assay is not recommended for patients undergoing treatment with eltrombopag due to the potential for falsely elevated results. Performed By: #### A HUMBERTO CONTEH #### [address] [address] BUN/Creatinine Ratio 16 ratio Normal 7-27 [facility] ([place]) Comment on above: Performed By: #### A HUMBERTO CONTEH #### [address] [address] Calcium [Mass/Vol] 9.0 mg/dL Normal 8.4-10.2 [facility] ([place]) Comment on above: Performed By: #### A HUMBERTO CONTEH #### [address] [address] Chloride [Moles/Vol] 104 mmol/L Normal 98-107 [facility] ([place]) Comment on above: Performed By: #### A HUMBERTO CONTEH #### [address] [address] CO2 [Moles/Vol] 29 mmol/L Normal 22-29 [facility] ([place]) Comment on above: Performed By: #### A HUMBERTO CONTEH #### [address] [address] Creatinine [Mass/Vol] 0.76 mg/dL Normal 0.55-1.02 [facility] ([place]) Comment on above: Performed By: #### A KRISTAL CONTEHS #### [address] [address] Electrolyte Balance 9.0 mEq/L Normal 4.0-15.0 [facility] ([place]) Comment on above: Performed By: #### A HUMBERTO CONTEH #### [address] [address] Globulin 3.3 G/dL Normal [facility] ([place]) Comment on above: Performed By: #### HUMBERTO WADE #### [address] [address] Glucose [Mass/Vol] 76 mg/dL Normal 70-105 [facility] ([place]) Comment on above: Performed By: #### A HUMBERTO CONTEH #### [address] [address] Potassium [Moles/Vol] 4.3 mmol/L Normal 3.5-5.1 [facility] ([place]) Comment on above: Performed By: #### HUMBERTO WADE #### [address] [address] Sodium [Moles/Vol] 142 mmol/L Normal 136-145 [facility] ([place]) Comment on above: Performed By: #### KRISTAL WADES #### [address] [address] Total Protein 7.0 G/dL Normal 6.4-8.2 [facility] ([place]) Comment on above: Performed By: #### HUMBERTO WADE #### [address] [address] Urea nitrogen [Mass/Vol] 12 mg/dL Normal 7-18 [facility] ([place]) Comment on above: Performed By: #### HUMBERTO WADE #### [address] [address] HCVon 09-02-2022 Hep C Ab Non-Reactive Normal Non-Reacti ve [facility] ([place]) Comment on above: Performed By: #### KRISTAL WADES #### [address] [address] Hep C Ab Int Normal [facility] ([place]) Comment on above: Result Comment: Nonr eactive: Samples with a value < 0.80 are considered nonreactive (negative) for antibodies to HCV. A negative test result does not exclude the possibility of exposure to or infection with HCV. HCV antibodies may be undetectable in some stages of the infection and in some clinical conditions. See Interp Performed By: #### A WERO TROPHS #### [facility] [place] [id number] LABORATORYOrdered By: SYSTEM SYSTEM on 09-02-2022 Albumin [...] Cholesterol [Mass/Vol] 185 mg/dL Normal 0-200 [facility] ([place]) Comment on above: Result Comment: Chol esterol Reference Interval: Less than 200 Desirable 200-239 Borderline high risk 240 and above High risk Performed By: #### A KRISTAL CONTEHS #### [address] [address] Cholesterol in HDL [Mass/Vol] 67 mg/dL High 40-60 [facility] ([place]) Comment on above: Performed By: #### A KRISTAL CONTEHS #### [address] [address] Cholesterol in LDL [Mass/Vol] 96 mg/dL Normal 0-130 [facility] ([place]) Comment on above: Performed By: #### A KRISTAL CONTEHS #### [address] [address] Triglyceride [Mass/Vol] 109 mg/dL Normal 0-150 [facility] ([place]) Comment on above: Result Comment: Trig lyceride Reference Interval: Less than 150 Normal 150-199 Borderline high risk 200-499 High risk 500 or higher Very high risk Performed By: #### A KRISTAL CONTEHS #### [address] [address] MGon 09-02-2022 Magnesium [Mass/Vol] 2.1 mg/dL Normal 1.8-2.4 [facility] ([place]) Comment on above: Performed By: #### H CV1 #### [place] [address] #### CBC, ADIFF, CK, ANEU, CMP, A1C, LIPID, VIDH, MG, TSH, GFR, B1WB, ZINC #### [address] [address] TSHon 09-02-2022 TSH Qn 1.47 m[IU]/L Normal 0.36-3.74 [facility] ([place]) Comment on above: Performed By: #### H CV1 #### [place] [address] #### CBC, ADIFF, CK, ANEU, CMP, A1C, LIPID, VIDH, MG, TSH, GFR, B1WB, ZINC #### [address] [address] VIDHon 09-02-2022 Vit. D 25-Hydroxy 46.3 ng/mL Normal [facility] ([place]) Comment on above: Result Comment: Inte rpretive Values Based on Total 25(OH) Vitamin D: Deficient <20 ng/mL Insufficient 20 - <30 ng/mL Sufficient 30-100 ng/mL Performed By: #### H CV1 #### [place] [address] #### CBC, ADIFF, CK, ANEU, CMP, A1C, LIPID, VIDH, MG, TSH, GFR, B1WB, ZINC #### [address] [address] .Auto Diffon 08-26-2022 Basophil, Absolute 0.0 10 3/mcL Normal 0.0-0.2 [facility] ([place]) Comment on above: Performed By: #### H CV1 #### [place] [address] #### CBC, ADIFF, CK, ANEU, CMP, A1C, LIPID, VIDH, MG, TSH, GFR, B1WB, ZINC #### [address] [address] Basophils/100 WBC (Bld) 0.2 % Normal 0.0-2.5 [facility] ([place]) Comment on above: Performed By: #### H CV1 #### [place] [address] #### CBC, ADIFF, CK, ANEU, CMP, A1C, LIPID, VIDH, MG, TSH, GFR, B1WB, ZINC #### [address] [address] Eosinophil, Absolute 0.1 10 3/mcL Normal 0.0-0.4 [facility] ([place]) Comment on above: Performed By: #### H CV1 #### [place] [address] #### CBC, ADIFF, CK, ANEU, CMP, A1C, LIPID, VIDH, MG, TSH, GFR, B1WB, ZINC #### [address] [address] Eosinophils/100 WBC (Bld) 0.9 % Normal 0.0-7.0 [facility] ([place]) Comment on above: Performed By: #### H CV1 #### [place] [address] #### CBC, ADIFF, CK, ANEU, CMP, A1C, LIPID, VIDH, MG, TSH, GFR, B1WB, ZINC #### [address] [address] Lymphocyte, Absolute 0.7 10 3/mcL Low 0.8-3.9 [facility] ([place]) Comment on above: Performed By: #### H CV1 #### [place] [address] #### CBC, ADIFF, CK, ANEU, CMP, A1C, LIPID, VIDH, MG, TSH, GFR, B1WB, ZINC #### [address] [address] Lymphocytes/100 WBC (Bld) 8.5 % Low 10.0-50.0 [facility] ([place]) Comment on above: Performed By: #### H CV1 #### [place] [address] #### CBC, ADIFF, CK, ANEU, CMP, A1C, LIPID, VIDH, MG, TSH, GFR, B1WB, ZINC #### [address] [address] Monocyte, Absolute 0.5 10 3/mcL Normal 0.2-1.0 [facility] ([place]) Comment on above: Performed By: #### H CV1 #### [place] [address] #### CBC, ADIFF, CK, ANEU, CMP, A1C, LIPID, VIDH, MG, TSH, GFR, B1WB, ZINC #### [address] [address] Monocytes/100 WBC (Bld) 6.4 % Normal 1.7-13.0 [facility] ([place]) Comment on above: Performed By: #### H CV1 #### [address] [address] #### CBC, ADIFF, CK, ANEU, CMP, A1C, LIPID, VIDH, MG, TSH, GFR, B1WB, ZINC #### [address] [address] Neutrophils/100 WBC (Bld) 84.0 % High 37.0-80.0 [facility] ([place]) Comment on above: Performed By: #### H CV1 #### [address] [address] #### CBC, ADIFF, CK, ANEU, CMP, A1C, LIPID, VIDH, MG, TSH, GFR, B1WB, ZINC #### [address] [address] .GFRon 08-26-2022 GFR 82 ml/min/1.73sqm Normal [facility] ([place]) Comment on above: Result Comment: GFR Population [...] meters Performed By: #### H CV1 #### [address] [address] #### CBC, ADIFF, CK, ANEU, CMP, A1C, LIPID, VIDH, MG, TSH, GFR, B1WB, ZINC #### [address] [address] GFR Non- 68 ml/min/1.73sqm Normal [facility] ([place]) Comment on above: Result Comment: GFR Population [...] meters Performed By: #### H CV1 #### [place] [address] #### CBC, ADIFF, CK, ANEU, CMP, A1C, LIPID, VIDH, MG, TSH, GFR, B1WB, ZINC #### [address] [address] .MDWon 08-26-2022 Monocyte Distribution Width 20.32 High 0.00-20.00 [facility] ([place]) Comment on above: Result Comment: For adults in ED, MDW>20.0 may be associated with a higher risk of sepsis during the first 12hrs of hospital admission Performed By: #### H CV1 #### [place] [address] #### CBC, ADIFF, CK, ANEU, CMP, A1C, LIPID, VIDH, MG, TSH, GFR, B1WB, ZINC #### [address] [address] .NEUABSon 08-26-2022 Neutrophil, Absolute 6.7 10 3/mcL High 2.9-6.2 [facility] ([place]) Comment on above: Performed By: #### H CV1 #### [address] [address] #### CBC, ADIFF, CK, ANEU, CMP, A1C, LIPID, VIDH, MG, TSH, GFR, B1WB, ZINC #### [address] [address] AMYon 08-26-2022 Amylase [Catalytic activity/Vol] 54 U/L Normal 25-115 [facility] ([place]) Comment on above: Performed By: #### A HUMBERTO CONTEH #### [address] [address] [facility] 08-26-2022 Erythrocyte distribution width (RBC) [Ratio] 13.7 % Normal 11.5-14.5 [facility] ([place]) Comment on above: Performed By: #### H CV1 #### [place] [address] #### CBC, ADIFF, CK, ANEU, CMP, A1C, LIPID, VIDH, MG, TSH, GFR, B1WB, ZINC #### [address] [address] Hematocrit (Bld) [Volume fraction] 37.5 % Normal 37.0-47.0 [facility] ([place]) Comment on above: Performed By: #### H CV1 #### [address] [address] #### CBC, ADIFF, CK, ANEU, CMP, A1C, LIPID, VIDH, MG, TSH, GFR, B1WB, ZINC #### [address] [address] Hgb 12.6 G/dL Normal 12.0-16.0 [facility] ([place]) Comment on above: Performed By: #### H CV1 #### [address] [address] #### CBC, ADIFF, CK, ANEU, CMP, A1C, LIPID, VIDH, MG, TSH, GFR, B1WB, ZINC #### [address] [address] MCH (RBC) [Entitic mass] 30.7 pg Normal 27.0-31.2 [facility] ([place]) Comment on above: Performed By: #### H CV1 #### [address] [address] #### CBC, ADIFF, CK, ANEU, CMP, A1C, LIPID, VIDH, MG, TSH, GFR, B1WB, ZINC #### [address] [address] MCHC 33.7 G/dL Normal 33.0-37.0 [facility] ([place]) Comment on above: Performed By: #### H CV1 #### [address] [address] #### CBC, ADIFF, CK, ANEU, CMP, A1C, LIPID, VIDH, MG, TSH, GFR, B1WB, ZINC #### [address] [address] MCV (RBC) [Entitic vol] 91.1 fL Normal 80.0-94.0 [facility] ([place]) Comment on above: Performed By: #### H CV1 #### [place] [address] #### CBC, ADIFF, CK, ANEU, CMP, A1C, LIPID, VIDH, MG, TSH, GFR, B1WB, ZINC #### [address] [address] Platelet 304 10 3/mcL Normal 130-400 [facility] ([place]) Comment on above: Performed By: #### H CV1 #### [place] [address] #### CBC, ADIFF, CK, ANEU, CMP, A1C, LIPID, VIDH, MG, TSH, GFR, B1WB, ZINC #### [address] [address] Platelet mean volume (Bld) [Entitic vol] 7.0 fL Low 7.4-10.4 [facility] ([place]) Comment on above: Performed By: #### H CV1 #### [place] [address] #### CBC, ADIFF, CK, ANEU, CMP, A1C, LIPID, VIDH, MG, TSH, GFR, B1WB, ZINC #### [address] [address] RBC 4.11 10 6/mcL Low 4.20-5.40 [facility] ([place]) Comment on above: Performed By: #### H CV1 #### [address] [address] #### CBC, ADIFF, CK, ANEU, CMP, A1C, LIPID, VIDH, MG, TSH, GFR, B1WB, ZINC #### [address] [address] WBC 8.0 10 3/mcL Normal 4.6-10.8 [facility] ([place]) Comment on above: Performed By: #### H CV1 #### [place] [address] #### CBC, ADIFF, CK, ANEU, CMP, A1C, LIPID, VIDH, MG, TSH, GFR, B1WB, ZINC #### [address] [address] CMPon 08-26-2022 Albumin Level 3.9 G/dL Normal 3.5-5.0 [facility] ([place]) Comment on above: Performed By: #### H CV1 #### [place] [address] #### CBC, ADIFF, CK, ANEU, CMP, A1C, LIPID, VIDH, MG, TSH, GFR, B1WB, ZINC #### [address] [address] Albumin/Globulin [Mass ratio] 1.2 {ratio} Normal 1.1-2.5 [facility] ([place]) Comment on above: Performed By: #### H CV1 #### [address] [address] #### CBC, ADIFF, CK, ANEU, CMP, A1C, LIPID, VIDH, MG, TSH, GFR, B1WB, ZINC #### [address] [address] ALP [Catalytic activity/Vol] 97 U/L Normal 40-135 [facility] ([place]) Comment on above: Performed By: #### H CV1 #### [place] [address] #### CBC, ADIFF, CK, ANEU, CMP, A1C, LIPID, VIDH, MG, TSH, GFR, B1WB, ZINC #### [address] [address] ALT [Catalytic activity/Vol] 27 U/L Normal 14-59 [facility] ([place]) Comment on above: Performed By: #### H CV1 #### [place] [address] #### CBC, ADIFF, CK, ANEU, CMP, A1C, LIPID, VIDH, MG, TSH, GFR, B1WB, ZINC #### [address] [address] AST [Catalytic activity/Vol] 34 U/L Normal 10-40 [facility] ([place]) Comment on above: Performed By: #### H CV1 #### [place] [address] #### CBC, ADIFF, CK, ANEU, CMP, A1C, LIPID, VIDH, MG, TSH, GFR, B1WB, ZINC #### [address] [address] Bili Total 0.3 mg/dL Normal 0.2-1.0 [facility] ([place]) Comment on above: Result Comment: Use of this assay is not recommended for patients undergoing treatment with eltrombopag due to the potential for falsely elevated results. Performed By: #### H CV1 #### [place] [address] #### CBC, ADIFF, CK, ANEU, CMP, A1C, LIPID, VIDH, MG, TSH, GFR, B1WB, ZINC #### [address] [address] BUN/Creatinine Ratio 10 ratio Normal 7-27 [facility] ([place]) Comment on above: Performed By: #### H CV1 #### [address] [address] #### CBC, ADIFF, CK, ANEU, CMP, A1C, LIPID, VIDH, MG, TSH, GFR, B1WB, ZINC #### [address] [address] Calcium [Mass/Vol] 8.7 mg/dL Normal 8.4-10.2 [facility] ([place]) Comment on above: Performed By: #### H CV1 #### [place] [address] #### CBC, ADIFF, CK, ANEU, CMP, A1C, LIPID, VIDH, MG, TSH, GFR, B1WB, ZINC #### [address] [address] Chloride [Moles/Vol] 102 mmol/L Normal 98-107 [facility] ([place]) Comment on above: Performed By: #### H CV1 #### [place] [address] #### CBC, ADIFF, CK, ANEU, CMP, A1C, LIPID, VIDH, MG, TSH, GFR, B1WB, ZINC #### [address] [address] CO2 [Moles/Vol] 27 mmol/L Normal 22-29 [facility] ([place]) Comment on above: Performed By: #### H CV1 #### [place] [address] #### CBC, ADIFF, CK, ANEU, CMP, A1C, LIPID, VIDH, MG, TSH, GFR, B1WB, ZINC #### [address] [address] Creatinine [Mass/Vol] 0.88 mg/dL Normal 0.55-1.02 [facility] ([place]) Comment on above: Performed By: #### H CV1 #### [place] [address] #### CBC, ADIFF, CK, ANEU, CMP, A1C, LIPID, VIDH, MG, TSH, GFR, B1WB, ZINC #### [address] [address] Electrolyte Balance 8.0 mEq/L Normal 4.0-15.0 [facility] ([place]) Comment on above: Performed By: #### H CV1 #### [address] [address] #### CBC, ADIFF, CK, ANEU, CMP, A1C, LIPID, VIDH, MG, TSH, GFR, B1WB, ZINC #### [address] [address] Globulin 3.2 G/dL Normal [facility] ([place]) Comment on above: Performed By: #### H CV1 #### [place] [address] #### CBC, ADIFF, CK, ANEU, CMP, A1C, LIPID, VIDH, MG, TSH, GFR, B1WB, ZINC #### [address] [address] Glucose [Mass/Vol] 98 mg/dL Normal 70-105 [facility] ([place]) Comment on above: Performed By: #### H CV1 #### [place] [address] #### CBC, ADIFF, CK, ANEU, CMP, A1C, LIPID, VIDH, MG, TSH, GFR, B1WB, ZINC #### [address] [address] Potassium [Moles/Vol] 4.3 mmol/L Normal 3.5-5.1 [facility] ([place]) Comment on above: Performed By: #### H CV1 #### [place] [address] #### CBC, ADIFF, CK, ANEU, CMP, A1C, LIPID, VIDH, MG, TSH, GFR, B1WB, ZINC #### [address] [address] Sodium [Moles/Vol] 137 mmol/L Normal 136-145 [facility] ([place]) Comment on above: Performed By: #### H CV1 #### [place] [address] #### CBC, ADIFF, CK, ANEU, CMP, A1C, LIPID, VIDH, MG, TSH, GFR, B1WB, ZINC #### [address] [address] Total Protein 7.1 G/dL Normal 6.4-8.2 [facility] ([place]) Comment on above: Performed By: #### H CV1 #### [address] [address] #### CBC, ADIFF, CK, ANEU, CMP, A1C, LIPID, VIDH, MG, TSH, GFR, B1WB, ZINC #### [address] [address] Urea nitrogen [Mass/Vol] 9 mg/dL Normal 7-18 [facility] ([place]) Comment on above: Performed By: #### H CV1 #### [address] [address] #### CBC, ADIFF, CK, ANEU, CMP, A1C, LIPID, VIDH, MG, TSH, GFR, B1WB, ZINC #### [address] [address] CRPon 08-26-2022 C-Reactive Protein 4.1 mg/dL High 0.0-0.9 [facility] ([place]) Comment on above: Performed By: #### H CV1 #### [address] [address] #### CBC, ADIFF, CK, ANEU, CMP, A1C, LIPID, VIDH, MG, TSH, GFR, B1WB, ZINC #### [address] [address] [address] ABD/PELVIS W/ IV CONTRAST ONLYon 08-26-2022 [...] 08/26/2022 6:34:22 PM Ordering Provider: LINDA Silverio [facility]) DIMERon 08-26-2022 D-Dimer <200 Normal 0-230 [facility]) Comment on above: Result Comment: [...] (PE). Performed By: #### H CV1 #### [place] [address] #### CBC, ADIFF, CK, ANEU, CMP, A1C, LIPID, VIDH, MG, TSH, GFR, B1WB, ZINC #### [place] [address] LABORATORYOrdered By: SYSTEM SYSTEM on 08-26-2022 Amylase [...] LIPon 08-26-2022 Lipase Level 177 U/L High [facility] ([place]) Comment on above: Performed By: #### H CV1 #### [place] [address] #### CBC, ADIFF, CK, ANEU, CMP, A1C, LIPID, VIDH, MG, TSH, GFR, B1WB, ZINC #### [address] [address] MGon 08-26-2022 Magnesium [Mass/Vol] 2.0 mg/dL Normal 1.8-2.4 [facility] ([place]) Comment on above: Performed By: #### H CV1 #### [place] [address] #### CBC, ADIFF, CK, ANEU, CMP, A1C, LIPID, VIDH, MG, TSH, GFR, B1WB, ZINC #### [address] [address] PBNPon 08-26-2022 Natriuretic peptide B (Bld) [Mass/Vol] 27 pg/mL Normal 0-125 [facility] ([place]) Comment on above: Result Comment: NT-p roBNP results of less than 300 pg/mL effectively rules out acute congestive heart failure with 99% negative predictive value. Performed By: #### H CV1 #### [place] [address] #### CBC, ADIFF, CK, ANEU, CMP, A1C, LIPID, VIDH, MG, TSH, GFR, B1WB, ZINC #### [address] [address] TROPHSon 08-26-2022 Troponin I High Sensitivity 4.3 ng/L Normal 0.0-51.4 [facility] ([place]) Comment on above: Performed By: #### A HUMBERTO CONTEH #### [address] [address] Troponin I High Sensitivity <4.0 Normal 0.0-51.4 [facility] ([place]) Comment on above: Performed By: #### H CV1 #### [place] [address] #### CBC, ADIFF, CK, ANEU, CMP, A1C, LIPID, VIDH, MG, TSH, GFR, B1WB, ZINC #### [place] [id number] XR CHEST 1 VIEWon 08-26-2022 XR CHEST [...] Date: 08/26/2022 5:14:04 PM Ordering Provider: LINDA MARTINEZ [facility] ([place]) US BREAST RIGHT LIMITEDon US BREAST RIGHT LIMITED ORIGINAL FROM: [address] [address] PROCEDURE FOR: AMANDA GRUBBS [address] [place] [address] Home: PID#: [id number] Exam#: [id number] : 1970 Age: 52 TO: FRANKY PEARSON DO [facility] [address] [place] [address] Fax: NO FAX EXAMINATION: ULTRASOUND OF THE [...] Provider: FRANKY PEARSON CLINICAL: 6 MONTHS FOLLOW-UP. Deposition Reporter: FELIBERTO CINTRON RT(R) RDMS letter sent: Probably Benign BI-RADS 3 Ultrasound BI-RADS: 3 Probably benign Normal [facility] ([place]) Office Visiton 08-18-2022 Follow-up visit [id number] Amanda Grubbs 1970 F Date Provider Department Center 08/18/2022 [id number] CRUZ [facility] Family History Problem Relation Age [...] Grandfather Paternal Grandmother Sister Alive Level of Service:26679 CT OFFICE/OUTPATIENT ESTABLISHED LOW MDM 20-29 MIN Reason for Visit and Comments: Bariatrics Post Op Follow-up [884] - [place] POP 04/08/18 Normal [facility] Progress Noteon 08-18-2022 Progress Note BARIATRIC CARE IDALIA MARK NOTE POST WEIGHT LOSS SURGERY FOLLOW UP Patient: Amanda Grubbs Service Date: 08/18/2022 Patient is 5 year(s) s/p RnY Gastric Bypass Today's Metrics: Post-Surgical Weight Loss Date: 08/18/22 Height: 5' 3.25" (160.7 cm) Weight: 180 lb 9.6 oz (81.9 kg) BMI: 31.74 Weight Change: -3.2 lbs Total Weight Change: % EBWL: Post-op Weight Metrics: Post-Surgical Weight Loss Date: 08/18/22 Height: 5' 3.25" (160.7 cm) Weight: 180 lb 9.6 oz (81.9 kg) BMI: 31.74 Weight Change: -3.2 lbs Total Weight Change: % EBWL: (From Surgical Weight Loss Tracker) Patient has the following questions: None Reported Pain: Patient rates pain on scale 0-10 as: 0 Exercise Compliance: Exercising: yes 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 N/A If yes see Labs Tab Labs completed at Non-[facility] facility? N/A If yes see Encounters Tab - Orders only - Historical Provider - Date: Completed by: Mary Mishra MA Normal [facility] GLUon 08-15-2022 Glucose [Mass/Vol] 78 mg/dL Normal 70-110 [facility] ([place]) Comment on above: Performed By: #### H CV1 #### [address] [address] #### CBC, ADIFF, CK, ANEU, CMP, A1C, LIPID, VIDH, MG, TSH, GFR, B1WB, ZINC #### [address] [address] LIPIDon 03-07-2023 Cholesterol [Mass/Vol] 166 mg/dL Normal 50-199 [facility] ([place]) Comment on above: Result Comment: Chol esterol Reference Interval: Less than 200 Desirable 200-239 Borderline high risk 240 and above High risk Performed By: #### H CV1 #### [place] [address] #### CBC, ADIFF, CK, ANEU, CMP, A1C, LIPID, VIDH, MG, TSH, GFR, B1WB, ZINC #### [address] [address] Cholesterol in HDL [Mass/Vol] 51 mg/dL Normal 40-59 [facility] ([place]) Comment on above: Performed By: #### H CV1 #### [place] [address] #### CBC, ADIFF, CK, ANEU, CMP, A1C, LIPID, VIDH, MG, TSH, GFR, B1WB, ZINC #### [address] [address] Cholesterol in LDL [Mass/Vol] 84 mg/dL Normal 0-129 [facility] ([place]) Comment on above: Performed By: #### H CV1 #### [place] [address] #### CBC, ADIFF, CK, ANEU, CMP, A1C, LIPID, VIDH, MG, TSH, GFR, B1WB, ZINC #### [address] [address] Triglyceride [Mass/Vol] 156 mg/dL High 3-149 [facility] ([place]) Comment on above: Performed By: #### H CV1 #### [place] [address] #### CBC, ADIFF, CK, ANEU, CMP, A1C, LIPID, VIDH, MG, TSH, GFR, B1WB, ZINC #### [address] [address] Office Visiton 07-07-2022 Follow-up visit [id number] Amanda Grubbs 1970 F Date Provider Department Center 07/07/2022 [id number]-VHQUESHAYNA ANDRADE [facility] None Family History Problem Relation [...] Grandfather Paternal Grandmother Sister Alive Level of Service:64049 CT OFFICE/OUTPATIENT ESTABLISHED LOW MDM 20-29 MIN Reason for Visit and Comments: Bariatrics Post Op Follow-up [884] - POP D/E FU [facility] Progress Noteon 07-07-2022 Progress Note BARIATRIC CARE IDALIA MARK NOTE POST WEIGHT LOSS SURGERY FOLLOW UP Patient: Amanda Grubbs Service Date: 07/07/2022 Patient is 5 year(s) s/p RnY Gastric Bypass Today's Metrics: Post-Surgical Weight Loss Date: 07/07/22 Height: 5' 3.25" (160.7 cm) Weight: 183 lb 12.8 oz (83.4 kg) BMI: 32.30 Weight Change: -4.2 lbs Total Weight Change: % EBWL: Comments: pop d/e fu Post-op Weight Metrics: Post-Surgical Weight Loss Date: 07/07/22 Height: 5' 3.25" (160.7 cm) Weight: 183 lb 12.8 oz [...] or JAD If YES: Labs completed at [facility]? N/A If yes see Labs Tab Labs completed at Non-[facility] facility? N/A If yes see Encounters Tab - Orders only - Historical Provider - Date: Completed by: Manuel Preciado MA [facility] CT THORAX W/O CONTRASTon CT THORAX W/O [...] 2022 12:43:51 PM Ordering Provider: FRANKY PEARSON [facility] ([place]) Office Visiton 06-07-2022 Follow-up visit [id number] RomieAmanda L 1970 F Date Provider Department Center 06/07/2022 [id number]-VOXDUSHAYNA SEBASTIAN [facility] None Family History Problem Relation [...] Grandfather Paternal Grandmother Sister Alive Level of Service:08437 CT OFFICE/OUTPATIENT ESTABLISHED LOW MDM 20-29 MIN Reason for Visit and Comments: Bariatrics Post Op Follow-up [884] - POP D/E FU [facility] Progress Noteon 06-07-2022 Progress Note BARIATRIC CARE IDALIA MARK NOTE POST WEIGHT LOSS SURGERY FOLLOW UP Patient: Amanda Grubbs Service Date: 06/07/2022 Patient is 5 year(s) s/p RnY Gastric Bypass Post-op Weight Metrics: Post-Surgical Weight Loss Date: 06/07/22 Height: 5' 3.25" (160.7 cm) ([place]) Weight: 188 lb (85.3 kg) BMI: 33.04 [...] or JAD If YES: Labs completed at [facility]? N/A If yes see Labs Tab Labs completed at Non-[facility] facility? N/A If yes see Encounters Tab - Orders only - Historical Provider - Date: Completed by: Manuel Preciado MA [facility] Office Visiton 05-10-2022 Follow-up visit [id number] Ash Grubbsalma Varner 1970 F Date Provider Department Center 05/10/2022 [id number]-[id number] SEBASTIAN [facility] None Family History Problem Relation [...] Grandfather Paternal Grandmother Sister Alive Level of Service:13379 CT OFFICE/OUTPATIENT ESTABLISHED MOD MDM 30-39 MIN Reason for Visit and Comments: Weight Management [645] - POP D/E [facility] Progress Noteon 05-10-2022 Progress Note BARIATRIC CARE IDALIA CASANOVAING NOTE POST WEIGHT LOSS SURGERY FOLLOW UP Patient: Amanda Grubbs Service Date: 05/10/2022 Patient is 5 year(s) s/p RnY Gastric Bypass Post-op Weight Metrics: Post-Surgical Weight Loss Date: 05/10/22 Height: 5' 3.25" (160.7 cm) Weight: 191 lb 6.4 oz [...] or JAD If YES: Labs completed at [facility]? no If yes see Labs Tab Labs completed at Non-[facility] facility? yes If yes see Encounters Tab - Orders only - Historical Provider - Date: 04/26/22 Completed by: Tatum Del Valle MA [facility] B1WBon 05-01-2022 Vitamin B1 (TDP), Whole Blood 94.7 nmol/L Normal 84.3-213.3 [facility] ([place]) Comment on above: Result Comment: This assay measures the concentration of thiamine diphosphate (TDP), the primary active form of vitamin B1. Approximately 90 percent of vitamin B1 present in whole blood is TDP. Thiamine and thiamine monophosphate, which comprise the remaining 10 percent, are not measured. This test was developed and its performance characteristics determined by [facility] [place] ([facility]). It has not been cleared or approved by the FDA. -[facility] is regulated under CLIA as qualified to perform high-complexity testing. This test is used for clinical purposes. It should not be regarded as investigational or for research. Performed By: [address] [address] [employer] Faculty Member: Kenny Nunes III, M.D. CLIA#: [id number] Performed By: #### H CV1 #### [address] [address] #### CBC, ADIFF, CK, ANEU, CMP, A1C, LIPID, VIDH, MG, TSH, GFR, B1WB, ZINC #### [address] [address] ZINCon 04-27-2022 Zinc (s) 52 UG/DL Low 60-120 [facility] ([place]) Comment on above: Result Comment: This test was developed and its performance characteristics determined by [facility] [place] ([facility]). It has not been cleared or approved by the FDA. -[facility] is regulated under CLIA as qualified to perform high-complexity testing. This test is used for clinical purposes. It should not be regarded as investigational or for research. Performed By: [facility] [employer] [address] [place] [id number] [employer] Faculty Member: Kenny Nunes III, M.D. CLIA#: [id number] Performed By: #### H CV1 #### [address] [address] #### CBC, ADIFF, CK, ANEU, CMP, A1C, LIPID, VIDH, MG, TSH, GFR, B1WB, ZINC #### [address] [address] .Auto Diffon 04-26-2022 Basophil, Absolute 0.0 10 3/mcL Normal 0.0-0.2 [facility] ([place]) Comment on above: Performed By: #### H CV1 #### [place] [address] #### CBC, ADIFF, CK, ANEU, CMP, A1C, LIPID, VIDH, MG, TSH, GFR, B1WB, ZINC #### [address] [address] Basophils/100 WBC (Bld) 0.7 % Normal 0.0-2.5 [facility] ([place]) Comment on above: Performed By: #### H CV1 #### [place] [address] #### CBC, ADIFF, CK, ANEU, CMP, A1C, LIPID, VIDH, MG, TSH, GFR, B1WB, ZINC #### [address] [address] Eosinophil, Absolute 0.2 10 3/mcL Normal 0.0-0.4 [facility] ([place]) Comment on above: Performed By: #### H CV1 #### [place] [address] #### CBC, ADIFF, CK, ANEU, CMP, A1C, LIPID, VIDH, MG, TSH, GFR, B1WB, ZINC #### [address] [address] Eosinophils/100 WBC (Bld) 3.2 % Normal 0.0-7.0 [facility] ([place]) Comment on above: Performed By: #### H CV1 #### [place] [address] #### CBC, ADIFF, CK, ANEU, CMP, A1C, LIPID, VIDH, MG, TSH, GFR, B1WB, ZINC #### [address] [address] Lymphocyte, Absolute 1.8 10 3/mcL Normal 0.8-3.9 [facility] ([place]) Comment on above: Performed By: #### H CV1 #### [place] [address] #### CBC, ADIFF, CK, ANEU, CMP, A1C, LIPID, VIDH, MG, TSH, GFR, B1WB, ZINC #### [address] [address] Lymphocytes/100 WBC (Bld) 33.7 % Normal 10.0-50.0 [facility] ([place]) Comment on above: Performed By: #### H CV1 #### [place] [address] #### CBC, ADIFF, CK, ANEU, CMP, A1C, LIPID, VIDH, MG, TSH, GFR, B1WB, ZINC #### [address] [address] Monocyte, Absolute 0.5 10 3/mcL Normal 0.2-1.0 [facility] ([place]) Comment on above: Performed By: #### H CV1 #### [place] [address] #### CBC, ADIFF, CK, ANEU, CMP, A1C, LIPID, VIDH, MG, TSH, GFR, B1WB, ZINC #### [address] [address] Monocytes/100 WBC (Bld) 10.3 % Normal 1.7-13.0 [facility] ([place]) Comment on above: Performed By: #### H CV1 #### [place] [address] #### CBC, ADIFF, CK, ANEU, CMP, A1C, LIPID, VIDH, MG, TSH, GFR, B1WB, ZINC #### [address] [address] Neutrophils/100 WBC (Bld) 52.1 % Normal 37.0-80.0 [facility] ([place]) Comment on above: Performed By: #### H CV1 #### [address] [address] #### CBC, ADIFF, CK, ANEU, CMP, A1C, LIPID, VIDH, MG, TSH, GFR, B1WB, ZINC #### [address] [address] .GFRon 04-26-2022 GFR 71 ml/min/1.73sqm Normal [facility] ([place]) Comment on above: Result Comment: GFR Population [...] meters Performed By: #### H CV1 #### [place] [address] #### CBC, ADIFF, CK, ANEU, CMP, A1C, LIPID, VIDH, MG, TSH, GFR, B1WB, ZINC #### [address] [address] GFR Non- 59 ml/min/1.73sqm Normal [facility] ([place]) Comment on above: Result Comment: GFR Population [...] meters Performed By: #### H CV1 #### [address] [address] #### CBC, ADIFF, CK, ANEU, CMP, A1C, LIPID, VIDH, MG, TSH, GFR, B1WB, ZINC #### [address] [address] .NEUABSon 04-26-2022 Neutrophil, Absolute 2.8 10 3/mcL Low 2.9-6.2 [facility] ([place]) Comment on above: Performed By: #### H CV1 #### [address] [address] #### CBC, ADIFF, CK, ANEU, CMP, A1C, LIPID, VIDH, MG, TSH, GFR, B1WB, ZINC #### [address] [address] A1Con 04-26-2022 HbA1c (Bld) [Mass fraction] 5.7 % Normal 4.3-6.4 [facility] ([place]) Comment on above: Performed By: #### H CV1 #### [address] [address] #### CBC, ADIFF, CK, ANEU, CMP, A1C, LIPID, VIDH, MG, TSH, GFR, B1WB, ZINC #### [address] [address] B12on 04-26-2022 Cobalamin (Vitamin B12) [Mass/Vol] 328 pg/mL Normal 211-911 [facility] ([place]) Comment on above: Performed By: #### H CV1 #### [address] [address] #### CBC, ADIFF, CK, ANEU, CMP, A1C, LIPID, VIDH, MG, TSH, GFR, B1WB, ZINC #### [address] [address] CBCon 04-26-2022 Erythrocyte distribution width (RBC) [Ratio] 13.0 % Normal 11.5-14.5 [facility] ([place]) Comment on above: Performed By: #### H CV1 #### [place] [address] #### CBC, ADIFF, CK, ANEU, CMP, A1C, LIPID, VIDH, MG, TSH, GFR, B1WB, ZINC #### [address] [address] Hematocrit (Bld) [Volume fraction] 37.6 % Normal 37.0-47.0 [facility] ([place]) Comment on above: Performed By: #### H CV1 #### [place] [address] #### CBC, ADIFF, CK, ANEU, CMP, A1C, LIPID, VIDH, MG, TSH, GFR, B1WB, ZINC #### [address] [address] Hgb 12.7 G/dL Normal 12.0-16.0 [facility] ([place]) Comment on above: Performed By: #### H CV1 #### [place] [address] #### CBC, ADIFF, CK, ANEU, CMP, A1C, LIPID, VIDH, MG, TSH, GFR, B1WB, ZINC #### [address] [address] MCH (RBC) [Entitic mass] 31.4 pg High 27.0-31.2 [facility] ([place]) Comment on above: Performed By: #### H CV1 #### [place] [address] #### CBC, ADIFF, CK, ANEU, CMP, A1C, LIPID, VIDH, MG, TSH, GFR, B1WB, ZINC #### [address] [address] MCHC 33.8 G/dL Normal 33.0-37.0 [facility] ([place]) Comment on above: Performed By: #### H CV1 #### [place] [address] #### CBC, ADIFF, CK, ANEU, CMP, A1C, LIPID, VIDH, MG, TSH, GFR, B1WB, ZINC #### [address] [address] MCV (RBC) [Entitic vol] 92.9 fL Normal 80.0-94.0 [facility] ([place]) Comment on above: Performed By: #### H CV1 #### [place] [address] #### CBC, ADIFF, CK, ANEU, CMP, A1C, LIPID, VIDH, MG, TSH, GFR, B1WB, ZINC #### [address] [address] Platelet 278 10 3/mcL Normal 130-400 [facility] ([place]) Comment on above: Performed By: #### H CV1 #### [place] [address] #### CBC, ADIFF, CK, ANEU, CMP, A1C, LIPID, VIDH, MG, TSH, GFR, B1WB, ZINC #### [address] [address] Platelet mean volume (Bld) [Entitic vol] 7.2 fL Low 7.4-10.4 [facility] ([place]) Comment on above: Performed By: #### H CV1 #### [place] [address] #### CBC, ADIFF, CK, ANEU, CMP, A1C, LIPID, VIDH, MG, TSH, GFR, B1WB, ZINC #### [address] [address] RBC 4.05 10 6/mcL Low 4.20-5.40 [facility] ([place]) Comment on above: Performed By: #### H CV1 #### [place] [address] #### CBC, ADIFF, CK, ANEU, CMP, A1C, LIPID, VIDH, MG, TSH, GFR, B1WB, ZINC #### [address] [address] WBC 5.3 10 3/mcL Normal 4.6-10.8 [facility] ([place]) Comment on above: Performed By: #### H CV1 #### [place] [address] #### CBC, ADIFF, CK, ANEU, CMP, A1C, LIPID, VIDH, MG, TSH, GFR, B1WB, ZINC #### [address] [address] CMPon 04-26-2022 Albumin Level 4.1 G/dL Normal 3.5-5.0 [facility] ([place]) Comment on above: Performed By: #### H CV1 #### [place] [address] #### CBC, ADIFF, CK, ANEU, CMP, A1C, LIPID, VIDH, MG, TSH, GFR, B1WB, ZINC #### [address] [address] Albumin/Globulin [Mass ratio] 1.3 {ratio} Normal 1.1-2.5 [facility] ([place]) Comment on above: Performed By: #### H CV1 #### [place] [address] #### CBC, ADIFF, CK, ANEU, CMP, A1C, LIPID, VIDH, MG, TSH, GFR, B1WB, ZINC #### [address] [address] ALP [Catalytic activity/Vol] 85 U/L Normal 40-135 [facility] ([place]) Comment on above: Performed By: #### H CV1 #### [place] [address] #### CBC, ADIFF, CK, ANEU, CMP, A1C, LIPID, VIDH, MG, TSH, GFR, B1WB, ZINC #### [address] [address] ALT [Catalytic activity/Vol] 25 U/L Normal 14-59 [facility] ([place]) Comment on above: Performed By: #### H CV1 #### [place] [address] #### CBC, ADIFF, CK, ANEU, CMP, A1C, LIPID, VIDH, MG, TSH, GFR, B1WB, ZINC #### [address] [address] AST [Catalytic activity/Vol] 18 U/L Normal 10-40 [facility] ([place]) Comment on above: Performed By: #### H CV1 #### [place] [address] #### CBC, ADIFF, CK, ANEU, CMP, A1C, LIPID, VIDH, MG, TSH, GFR, B1WB, ZINC #### [address] [address] Bili Total 0.2 mg/dL Normal 0.2-1.0 [facility] ([place]) Comment on above: Result Comment: Use of this assay is not recommended for patients undergoing treatment with eltrombopag due to the potential for falsely elevated results. Performed By: #### H CV1 #### [place] [address] #### CBC, ADIFF, CK, ANEU, CMP, A1C, LIPID, VIDH, MG, TSH, GFR, B1WB, ZINC #### [address] [address] BUN/Creatinine Ratio 10 ratio Normal 7-27 [facility] ([place]) Comment on above: Performed By: #### H CV1 #### [place] [address] #### CBC, ADIFF, CK, ANEU, CMP, A1C, LIPID, VIDH, MG, TSH, GFR, B1WB, ZINC #### [address] [address] Calcium [Mass/Vol] 9.6 mg/dL Normal 8.4-10.2 [facility] ([place]) Comment on above: Performed By: #### H CV1 #### [place] [address] #### CBC, ADIFF, CK, ANEU, CMP, A1C, LIPID, VIDH, MG, TSH, GFR, B1WB, ZINC #### [address] [address] Chloride [Moles/Vol] 105 mmol/L Normal 98-107 [facility] ([place]) Comment on above: Performed By: #### H CV1 #### [address] [address] #### CBC, ADIFF, CK, ANEU, CMP, A1C, LIPID, VIDH, MG, TSH, GFR, B1WB, ZINC #### [address] [address] CO2 [Moles/Vol] 30 mmol/L High 22-29 [facility] ([place]) Comment on above: Performed By: #### H CV1 #### [address] [address] #### CBC, ADIFF, CK, ANEU, CMP, A1C, LIPID, VIDH, MG, TSH, GFR, B1WB, ZINC #### [address] [address] Creatinine [Mass/Vol] 1.00 mg/dL Normal 0.55-1.02 [facility] ([place]) Comment on above: Performed By: #### H CV1 #### [address] [address] #### CBC, ADIFF, CK, ANEU, CMP, A1C, LIPID, VIDH, MG, TSH, GFR, B1WB, ZINC #### [address] [address] Electrolyte Balance 5.0 mEq/L Normal 4.0-15.0 [facility] ([place]) Comment on above: Performed By: #### H CV1 #### [address] [address] #### CBC, ADIFF, CK, ANEU, CMP, A1C, LIPID, VIDH, MG, TSH, GFR, B1WB, ZINC #### [address] [address] Globulin 3.1 G/dL Normal [facility] ([place]) Comment on above: Performed By: #### H CV1 #### [address] [address] #### CBC, ADIFF, CK, ANEU, CMP, A1C, LIPID, VIDH, MG, TSH, GFR, B1WB, ZINC #### [address] [address] Glucose [Mass/Vol] 69 mg/dL Low 70-105 [facility] ([place]) Comment on above: Performed By: #### H CV1 #### [address] [address] #### CBC, ADIFF, CK, ANEU, CMP, A1C, LIPID, VIDH, MG, TSH, GFR, B1WB, ZINC #### [address] [address] Potassium [Moles/Vol] 5.0 mmol/L Normal 3.5-5.1 [facility] ([place]) Comment on above: Performed By: #### H CV1 #### [place] [address] #### CBC, ADIFF, CK, ANEU, CMP, A1C, LIPID, VIDH, MG, TSH, GFR, B1WB, ZINC #### [address] [address] Sodium [Moles/Vol] 140 mmol/L Normal 136-145 [facility] ([place]) Comment on above: Performed By: #### H CV1 #### [place] [address] #### CBC, ADIFF, CK, ANEU, CMP, A1C, LIPID, VIDH, MG, TSH, GFR, B1WB, ZINC #### [address] [address] Total Protein 7.2 G/dL Normal 6.4-8.2 [facility] ([place]) Comment on above: Performed By: #### H CV1 #### [address] [address] #### CBC, ADIFF, CK, ANEU, CMP, A1C, LIPID, VIDH, MG, TSH, GFR, B1WB, ZINC #### [address] [address] Urea nitrogen [Mass/Vol] 10 mg/dL Normal 7-18 [facility] ([place]) Comment on above: Performed By: #### H CV1 #### [address] [address] #### CBC, ADIFF, CK, ANEU, CMP, A1C, LIPID, VIDH, MG, TSH, GFR, B1WB, ZINC #### [address] [address] Tena 04-26-2022 Ferritin [Mass/Vol] 17.0 ng/mL Normal 8.0-252.0 [facility] ([place]) Comment on above: Performed By: #### H CV1 #### [address] [address] #### CBC, ADIFF, CK, ANEU, CMP, A1C, LIPID, VIDH, MG, TSH, GFR, B1WB, ZINC #### [address] [address] FOLon 04-26-2022 Folate 11.20 ng/mL Normal 5.38-24.00 [facility] ([place]) Comment on above: Performed By: #### H CV1 #### [address] [address] #### CBC, ADIFF, CK, ANEU, CMP, A1C, LIPID, VIDH, MG, TSH, GFR, B1WB, ZINC #### [address] [address] LABORATORYOrdered By: Nir Hackett on 04-26-2022 Albumin [...] 04-26-2022 Cholesterol [Mass/Vol] 172 mg/dL Normal 0-200 [facility] ([place]) Comment on above: Result Comment: Chol esterol Reference Interval: Less than 200 Desirable 200-239 Borderline high risk 240 and above High risk Performed By: #### H CV1 #### [address] [address] #### CBC, ADIFF, CK, ANEU, CMP, A1C, LIPID, VIDH, MG, TSH, GFR, B1WB, ZINC #### [address] [address] Cholesterol in HDL [Mass/Vol] 62 mg/dL High 40-60 [facility] ([place]) Comment on above: Performed By: #### H CV1 #### [address] [address] #### CBC, ADIFF, CK, ANEU, CMP, A1C, LIPID, VIDH, MG, TSH, GFR, B1WB, ZINC #### [address] [address] Cholesterol in LDL [Mass/Vol] 78 mg/dL Normal 0-130 [facility] ([place]) Comment on above: Performed By: #### H CV1 #### [place] [address] #### CBC, ADIFF, CK, ANEU, CMP, A1C, LIPID, VIDH, MG, TSH, GFR, B1WB, ZINC #### [address] [address] Triglyceride [Mass/Vol] 159 mg/dL High 0-150 [facility] ([place]) Comment on above: Result Comment: Trig lyceride Reference Interval: Less than 150 Normal 150-199 Borderline high risk 200-499 High risk 500 or higher Very high risk Performed By: #### H CV1 #### [place] [address] #### CBC, ADIFF, CK, ANEU, CMP, A1C, LIPID, VIDH, MG, TSH, GFR, B1WB, ZINC #### [address] [address] VIDHon 04-26-2022 Vit. D 25-Hydroxy 28.9 ng/mL Normal [facility] ([place]) Comment on above: Result Comment: Inte rpretive Values Based on Total 25(OH) Vitamin D: Deficient <20 ng/mL Insufficient 20 - <30 ng/mL Sufficient 30-100 ng/mL Performed By: #### H CV1 #### [place] [address] #### CBC, ADIFF, CK, ANEU, CMP, A1C, LIPID, VIDH, MG, TSH, GFR, B1WB, ZINC #### [address] [address] .Auto Diffon 04-15-2022 Basophil, Absolute 0.0 10 3/mcL Normal 0.0-0.2 [facility] ([place]) Comment on above: Performed By: #### A HUMBERTO CONTEH #### [address] [address] Basophils/100 WBC (Bld) 0.7 % Normal 0.0-2.5 [facility] ([place]) Comment on above: Performed By: #### A KRISTAL CONTEHS #### [address] [address] Eosinophil, Absolute 0.2 10 3/mcL Normal 0.0-0.4 [facility] ([place]) Comment on above: Performed By: #### A KRISTAL CONTEHS #### [address] [address] Eosinophils/100 WBC (Bld) 3.1 % Normal 0.0-7.0 [facility] ([place]) Comment on above: Performed By: #### A WERO TROPHS #### [address] [address] Lymphocyte, Absolute 1.9 10 3/mcL Normal 0.8-3.9 [facility] ([place]) Comment on above: Performed By: #### A KRISTAL CONTEHS #### [address] [address] Lymphocytes/100 WBC (Bld) 30.5 % Normal 10.0-50.0 [facility] ([place]) Comment on above: Performed By: #### A KRISTAL CONTEHS #### [address] [address] Monocyte, Absolute 0.5 10 3/mcL Normal 0.2-1.0 [facility] ([place]) Comment on above: Performed By: #### A KRISTAL CONTEHS #### [address] [address] Monocytes/100 WBC (Bld) 8.5 % Normal 1.7-13.0 [facility] ([place]) Comment on above: Performed By: #### A KRISTAL CONTEHS #### [address] [address] Neutrophils/100 WBC (Bld) 57.2 % Normal 37.0-80.0 [facility] ([place]) Comment on above: Performed By: #### A WERO TROPHS #### [address] [address] .GFRon 04-15-2022 GFR 77 ml/min/1.73sqm Normal [facility] ([place]) Comment on above: Result Comment: GFR Population [...] meters Performed By: #### H CV1 #### [address] [address] #### CBC, ADIFF, CK, ANEU, CMP, A1C, LIPID, VIDH, MG, TSH, GFR, B1WB, ZINC #### [address] [address] GFR Non- 64 ml/min/1.73sqm Normal [facility] ([place]) Comment on above: Result Comment: GFR Population [...] meters Performed By: #### H CV1 #### [address] [address] #### CBC, ADIFF, CK, ANEU, CMP, A1C, LIPID, VIDH, MG, TSH, GFR, B1WB, ZINC #### [address] [address] .NEUABSon 04-15-2022 Neutrophil, Absolute 3.5 10 3/mcL Normal 2.9-6.2 [facility] ([place]) Comment on above: Performed By: #### A KRISTAL CONTEHS #### [address] [address] A1Con 04-15-2022 HbA1c (Bld) [Mass fraction] 5.4 % Normal 4.3-6.4 [facility] ([place]) Comment on above: Performed By: #### H CV1 #### [place] [address] #### CBC, ADIFF, CK, ANEU, CMP, A1C, LIPID, VIDH, MG, TSH, GFR, B1WB, ZINC #### [address] [address] CBCon 04-15-2022 Erythrocyte distribution width (RBC) [Ratio] 12.8 % Normal 11.5-14.5 [facility] ([place]) Comment on above: Performed By: #### A KRISTAL CONTEHS #### [address] [address] Hematocrit (Bld) [Volume fraction] 38.3 % Normal 37.0-47.0 [facility] ([place]) Comment on above: Performed By: #### A HUMBERTO CONTEH #### [address] [address] Hgb 13.1 G/dL Normal 12.0-16.0 [facility] ([place]) Comment on above: Performed By: #### A HUMBERTO CONTEH #### [address] [address] MCH (RBC) [Entitic mass] 31.4 pg High 27.0-31.2 [facility] ([place]) Comment on above: Performed By: #### A HUMBERTO CONTEH #### [address] [address] MCHC 34.1 G/dL Normal 33.0-37.0 [facility] [facility] ([place] Comment on above: Performed By: #### A HUMBERTO CONTEH #### [address] [address] MCV (RBC) [Entitic vol] 92.1 fL Normal 80.0-94.0 [facility] ([place]) Comment on above: Performed By: #### A HUMBERTO CONTEH #### [address] [address] Platelet 313 10 3/mcL Normal 130-400 [facility] ([place] Comment on above: Performed By: #### A HUMBERTO CONTEH #### [address] [address] Platelet mean volume (Bld) [Entitic vol] 7.3 fL Low 7.4-10.4 [facility] ([place] Comment on above: Performed By: #### A HUMBERTO CONTEH #### [address] [address] RBC 4.16 10 6/mcL Low 4.20-5.40 [facility] ([place] Comment on above: Performed By: #### A HUMBERTO CONTEH #### [address] [address] WBC 6.1 10 3/mcL Normal 4.6-10.8 [facility] ([place] Comment on above: Performed By: #### A HUMBERTO CONTEH #### [address] [address] CMPon 04-15-2022 Albumin Level 4.2 G/dL Normal 3.5-5.0 [facility] ([place] Comment on above: Performed By: #### A HUMBERTO CONTEH #### [address] [address] Albumin/Globulin [Mass ratio] 1.4 {ratio} Normal 1.1-2.5 [facility] ([place] Comment on above: Performed By: #### A HUMBERTO CONTEH #### [address] [address] ALP [Catalytic activity/Vol] 84 U/L Normal 40-135 [facility] ([place] Comment on above: Performed By: #### A HUMBERTO CONTEH #### [address] [address] ALT [Catalytic activity/Vol] 28 U/L Normal 14-59 [facility] ([place] Comment on above: Performed By: #### A KRISTAL CONTEHS #### [address] [address] AST [Catalytic activity/Vol] 18 U/L Normal 10-40 [facility] ([place] Comment on above: Performed By: #### A KRISTAL CONTEHS #### [address] [address] Bili Total 0.3 mg/dL Normal 0.2-1.0 [facility] ([place] Comment on above: Result Comment: Use of this assay is not recommended for patients undergoing treatment with eltrombopag due to the potential for falsely elevated results. Performed By: #### A KRISTAL CONTEHS #### [address] [address] BUN/Creatinine Ratio 17 ratio Normal 7-27 [facility] ([place]) Comment on above: Performed By: #### A KRISTAL CONTEHS #### [address] [address] Calcium [Mass/Vol] 9.5 mg/dL Normal 8.4-10.2 [facility] ([place]) Comment on above: Performed By: #### A KRISTAL CONTEHS #### [address] [address] Chloride [Moles/Vol] 103 mmol/L Normal 98-107 [facility] ([place] Comment on above: Performed By: #### A KRISTAL CONTEHS #### [address] [address] CO2 [Moles/Vol] 30 mmol/L High 22-29 [facility] ([place] Comment on above: Performed By: #### A KRISTAL CONTEHS #### [address] [address] Creatinine [Mass/Vol] 0.93 mg/dL Normal 0.55-1.02 [facility] ([place]) Comment on above: Performed By: #### A MY, TROPHS #### [address] [address] Electrolyte Balance 8.0 mEq/L Normal 4.0-15.0 [facility] ([place]) Comment on above: Performed By: #### A WERO TROPHS #### [address] [address] Globulin 3.1 G/dL Normal [facility] ([place] Comment on above: Performed By: #### A KRISTAL CONTEHS #### [address] [address] Glucose [Mass/Vol] 84 mg/dL Normal 70-105 [facility] ([place] Comment on above: Performed By: #### A KRISTAL CONTEHS #### [address] [address] Potassium [Moles/Vol] 4.9 mmol/L Normal 3.5-5.1 [facility] ([place] Comment on above: Performed By: #### A WERO TROPHS #### [address] [address] Sodium [Moles/Vol] 141 mmol/L Normal 136-145 [facility] ([place] Comment on above: Performed By: #### A KRISTAL CONTEHS #### [address] [address] Total Protein 7.3 G/dL Normal 6.4-8.2 [facility] ([place] Comment on above: Performed By: #### A KRISTAL CONTEHS #### [address] [address] Urea nitrogen [Mass/Vol] 16 mg/dL Normal 7-18 [facility] ([place] Comment on above: Performed By: #### A KRISTAL CONTEHS #### [address] [address] LABORATORYOrdered By: Paris Hernandez on 04-15-2022 Albumin [...] MA MAMMOGRAM DIAGNOSTIC BILATERAL W/JUMA ORIGINAL FROM: [address] [address] PROCEDURE FOR: AMANDA GRUBBS [address] [place] [address] Home: PID#: [id number] Exam#: [id number] : 1970 Age: 51 TO: FRANKY PEARSON DO [address] [place] [address] Fax: NO FAX EXAMINATION: DIAGNOSTIC BILATERAL MAMMOGRAM [...] FRANKY PEARSON CLINICAL: ASYMMETRIC DENSITY RIGHT BREAST. Deposition Reporter: JENNIFER MARTINEZ RT(R) (M) letter sent: Abnormal-Needs additional work up BI-RADS 0 Mammogram BI-RADS: 0 Indeterminate Normal [facility] ([place]) US BREAST RIGHT LIMITEDon US BREAST RIGHT LIMITED ORIGINAL FROM: [address] [address] PROCEDURE FOR: AMANDA VarnerFiorella ROMIE [address] [place] [address] Home: PID#: [id number] Exam#: [id number] : 1970 Age: 51 TO: FRANKY PEARSON DO [address] [place] [address] Fax: NO FAX EXAMINATION: ULTRASOUND OF THE [...] Provider: FRANKY PEARSON CLINICAL: 6 MONTHS FOLLOW-UP. Deposition Reporter: MANUEL CHIRINOS RT,MS letter sent: Probably Benign BI-RADS 3 Ultrasound BI-RADS: 3 Probably benign Normal [facility] ([place]) CT THORAX W/O CONTRASTon CT THORAX W/O [...] upper lobe on image 35 is unchanged. 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 A surgical sales representative nodule along the right minor fissure [...] 12/02/2021 3:00:41 PM Ordering Provider: FRANKY Silverio [facility] ([place]) LABORATORYOrdered By: Nir Hackett on 05-22-2021 ADMITTED [...] CORONAVIRUS 2019,PCR NOT DETECTED Normal Not Detected [facility] Comment on above: Result Comment: This assay is designed to detect the ORF1ab and/or S genes of SARS-CoV-2 via nucleic acid amplification. A Not Detected result does not preclude 2019-nCoV infection since the adequacy of sample collection and/or low viral burden may result in presence of viral nucleic acids below the clinical sensitivity of this test method. Fact sheet for providers: www.fda.gov/media/561627/download Fact sheet for patients: www.fda.gov/media/734335/download This test has received FDA Emergency Use Authorization (EUA) and has been verified by [facility] ([facility]). This test is only authorized for the duration of time that circumstances exist to justify the authorization of the emergency use of in vitro diagnostic tests for the detection of SARS-CoV-2 virus and/or diagnosis of COVID-19 infection under section 564(b)(1) of the Act, 21 U.S.C. 360bbb-3(b)(1), unless the authorization is terminated or revoked sooner. [facility] is certified under CLIA-88 as qualified to perform high complexity testing. Testing is performed in the [facility] laboratories located at [address] [place] [address]. Performed By: #### C OV19 #### [address] [place] [address] Basic Metabolic Panelon 01-10 Anion gap [Moles/Vol] 8 mmol/L Normal 8-15 [facility] Comment on above: Performed By: #### B MP #### [facility] [address] [place] [address] Calcium [Mass/Vol] 9.8 mg/dL Normal 8.6-10.6 [facility] Comment on above: Performed By: #### B MP #### [facility] [address] [place] [address] Chloride [Moles/Vol] 106 mmol/L Normal 98-107 [facility] Comment on above: Performed By: #### B MP #### [facility] [address] [place] [address] CO2 [Moles/Vol] 25 mmol/L Normal 22-29 [facility] Comment on above: Performed By: #### B MP #### [facility] [address] [place] [address] Creatinine [Mass/Vol] 0.7 mg/dL Normal 0.5-1.2 [facility] Comment on above: Performed By: #### B MP #### [facility] [address] [place] [address] eGFR -Amer >=60 Normal >=60 [facility] Comment on above: Performed By: #### B MP #### [facility] [address] [place] [address] GFR/1.73 sq M predicted among non-blacks MDRD (S/P/Bld) [Vol rate/Area] mL/min/{1.73_m2} Normal >=60 [facility] Comment on above: Performed By: #### B MP #### [facility] [address] [place] [address] Glucose [Mass/Vol] 75 mg/dL Normal 74-109 [facility] Comment on above: Performed By: #### B MP #### [facility] [address] [place] [address] Potassium [Moles/Vol] 4.7 mmol/L Normal 3.4-5.1 [facility] Comment on above: Performed By: #### B MP #### [facility] [address] [place] [address] Sodium [Moles/Vol] 139 mmol/L Normal 136-145 [facility] Comment on above: Performed By: #### B MP #### [facility] [address] [place] [address] Urea nitrogen [Mass/Vol] 11 mg/dL Normal 6-23 [facility] Comment on above: Performed By: #### B MP #### [facility] [address] [place] [address] CBC with Diffon 02-02-2020 Basophils (Bld) [#/Vol] 0.0 x(10)3/cumm Normal 0.0-0.1 [facility] Comment on above: Performed By: #### C BCDIFF #### [facility] [address] [place] [address] Basophils/100 WBC (Bld) 0.6 % Normal 0.0-1.0 [facility] Comment on above: Performed By: #### C BCDIFF #### [facility] [address] [place] [address] Eosinophils (Bld) [#/Vol] 0.1 x(10)3/cumm Normal 0.0-0.4 [facility] Comment on above: Performed By: #### C BCDIFF #### [facility] [address] [place] [address] Eosinophils/100 WBC (Bld) 1.9 % Normal 0.0-6.1 [facility] Comment on above: Performed By: #### C BCDIFF #### [facility] [address] [place] [address] Erythrocyte distribution width (RBC) [Ratio] 13.0 % Normal 11.1-15.3 [facility] Comment on above: Performed By: #### C BCDIFF #### [facility] [address] [place] [address] Hematocrit (Bld) [Volume fraction] 39.1 % Normal 34.6-45.0 [facility] Comment on above: Performed By: #### C BCDIFF #### [facility] [address] [place] [address] Hemoglobin (Bld) [Mass/Vol] 13.4 g/dL Normal 11.5-15.5 [facility] Comment on above: Performed By: #### C BCDIFF #### [facility] [address] [place] [address] Lymphocytes (Bld) [#/Vol] 1.6 x(10)3/cumm Normal 0.8-2.9 [facility] Comment on above: Performed By: #### C BCDIFF #### [facility] [address] [place] [address] Lymphocytes/100 WBC (Bld) 34.2 % Normal 12.2-42.6 [facility] Comment on above: Performed By: #### C BCDIFF #### [facility] [address] [place] [address] MCH (RBC) [Entitic mass] 32.7 pg Normal 27.2-33.6 [facility] Comment on above: Performed By: #### C BCDIFF #### [facility] [address] [place] [address] MCHC (RBC) [Mass/Vol] 34.3 g/dL Normal 32.9-35.3 [facility] Comment on above: Performed By: #### C BCDIFF #### [facility] [address] [place] [address] MCV (RBC) [Entitic vol] 95.5 fL Normal 81.3-96.7 [facility] Comment on above: Performed By: #### C BCDIFF #### [facility] [address] [place] [address] Monocytes (Bld) [#/Vol] 0.4 x(10)3/cumm Normal 0.2-0.8 [facility] Comment on above: Performed By: #### C BCDIFF #### [facility] [address] [place] [address] Monocytes/100 WBC (Bld) 8.4 % Normal 3.3-11.6 [facility] Comment on above: Performed By: #### C BCDIFF #### [facility] [address] [place] [address] Neutrophils (Bld) [#/Vol] 2.6 x(10)3/cumm Normal 1.3-7.4 [facility] Comment on above: Performed By: #### C BCDIFF #### [facility] [address] [place], [place] [address] Neutrophils/100 WBC (Bld) 54.9 % Normal 44.9-78.8 [facility] Comment on above: Performed By: #### C BCDIFF #### [facility] [address] [place] [address] Platelet mean volume (Bld) [Entitic vol] 8.2 fL Normal 6.4-10.0 [facility] Comment on above: Performed By: #### C BCDIFF #### [facility] [address] [place], [place] [address] Platelets (Bld) [#/Vol] 245 x(10)3/cumm Normal 138-367 [facility] Comment on above: Performed By: #### C BCDIFF #### [facility] [address] [place] [address] Plt Morph Normal [facility] Comment on above: Performed By: #### C BCDIFF #### [facility] [address] [place], [place] [address] RBC (Bld) [#/Vol] 4.09 X(10)6/cumm Normal 3.90-5.10 [facility] Comment on above: Performed By: #### C BCDIFF #### [facility] [address] [place], [place] [address] RBC Morph cont Normal [facility] Comment on above: Performed By: #### C BCDIFF #### [facility] [address] [place], [place] [phone] RBC morphology finding Nom (Bld) Normal [facility] Comment on above: Performed By: #### C BCDIFF #### [facility] [address] [place] [address] WBC (Bld) [#/Vol] 4.7 x(10)3/cumm Normal 3.6-10.3 [facility] Comment on above: Performed By: #### C BCDIFF #### [facility] [address] [place], [place] [id number] WBC Morph [facility] Comment on above: Performed By: #### C BCDIFF #### [facility] [address] [place], [place] [phone] CORONAVIRUS 2019 BY PCRon Lab Specimen Source Nasal, Nasopharyngeal Normal [facility] Comment on above: Performed By: #### C OV19 #### [facility] [address] [place] [address] COVID-19 by PCR ()on 02-01 Coronavirus 2019 PCR Not Detected Normal Not Detected [facility] Comment on above: Order Comment: Nasal swab in Saline, Jose M opharyngeal or Oropharyngeal in viral transport media or saline Performed By: #### C OVUH #### [place] [address] Performing Lab Testing performed by : [facility] [address] [place] [address] CLIA # [id number] [facility] Comment on above: Order Comment: Nasal swab in Saline, Jose M opharyngeal or Oropharyngeal in viral transport media or saline Performed By: #### C OVUH #### [place] [address] Specimen source Nom (Unsp spec) Nasal, DIRECTOR OF CONSERVATION [facility] Comment on above: Order Comment: Nasal swab in Saline, Jose M opharyngeal or Oropharyngeal in viral transport media or saline Performed By: #### C OVUH #### [place] [id number] CR Finger(s) Min 2 Views [place] ateralon 01-02-2019 CR Finger(s) Min 2 Views Bilateral Patient Name: AMANDA GRUBBS Diagnostic Radiology Exam Date/Time 01/02/2019 08:01:00 EDT Exam CR Finger(s) Min 2 Views Ordering Physician MD GONGORA DEREK J Accession Number [id number] CPT4 Codes 04760 () Reason For Exam PAIN Report Right finger three views HISTORY: Pain Three views of the fifth digit are submitted for interpretation. No fracture or dislocation. No significant degenerative changes. IMPRESSION: Normal examination. Report Dictated on Final Dictating Physician: MD CARRILLO MALAY Signed Date and Time: 01/02/2019 11:20 am Signed by: MD CARRILLO MALAY Transcribed Date and Time: 01/02/2019 11:21 Normal [facility] CR Finger(s) Min 2 Views [place] 01-02-2019 CR Finger(s) Min 2 Views Right Patient Name: AMANDA GRUBBS Diagnostic Radiology Exam Date/Time 01/02/2019 08:01:18 EDT Exam CR Finger(s) Min 2 Views Right Ordering Physician MD GONGORA DEREK J Accession Number [id number] Reason For Exam 5th digit pain Report Right finger three views HISTORY: Pain Three views of the fifth digit are submitted for interpretation. No fracture or dislocation. No significant degenerative changes. IMPRESSION: Normal examination. Report Dictated on Final Dictating Physician: MD CARRILLO MALAY Signed Date and Time: 01/02/2019 11:20 am Signed by: MD CARRILLO MALAY Transcribed Date and Time: 01/21/2019 8:27 Normal [facility] Basic Metabolic Panelon 10-3 Calcium mass conc 8.4 mg/dL Normal 8.4-10.4 [facility] Comment on above: Performed By: #### H A1C2, HEMOG, ALB3, BMP3 ####[place] [address] [place] [address] Anion gap 3 molar conc 7 Normal [facility] Comment on above: Performed By: #### H A1C2, HEMOG, ALB3, BMP3 ####[place] [address] [place] [address] CO2 molar conc 23 mmol/L Normal 22-30 [facility] Comment on above: Performed By: #### H A1C2, HEMOG, ALB3, BMP3 ####[place] [address] [place] [address] Creatinine mass conc 0.86 mg/dL Normal 0.52-1.25 [facility] Comment on above: Performed By: #### H A1C2, HEMOG, ALB3, BMP3 ####[place] [address] [place] [address] GFR/1.73 sq M predicted among blacks MDRD vol rate/area (S/P/Bld) mL/min/{1.73_m2} Normal >60 [facility] Comment on above: Performed By: #### H A1C2, HEMOG, ALB3, BMP3 ####[place] [address] [place] [address] GFR/1.73 sq M predicted among non-blacks MDRD vol rate/area (S/P/Bld) mL/min/{1.73_m2} Normal >60 [facility] Comment on above: Result Comment: Sour ce- MDRD equation with creatinine calibration to IDMS(NKDEP) eGFR not recommended for drug dose adjustment Performed By: #### H A1C2, HEMOG, ALB3, BMP3 ####[place] [address] [place] [address] Glucose mass conc 107 mg/dL High 70-100 [facility] Comment on above: Performed By: #### H A1C2, HEMOG, ALB3, BMP3 ####[place] [address] [place] [address] Urea nitrogen mass conc 11 mg/dL Normal 7-20 [facility] Comment on above: Performed By: #### H A1C2, HEMOG, ALB3, BMP3 ####[place] [address] [place] [address] Chloride molar conc 108 mmol/L High 98-107 [facility] Comment on above: Performed By: #### H A1C2, HEMOG, ALB3, BMP3 ####[address] Potassium molar conc 4.1 mmol/L Normal 3.5-5.1 [facility] Comment on above: Performed By: #### H A1C2, HEMOG, ALB3, BMP3 ####[address] Sodium molar conc 138 mmol/L Normal 137-145 [facility] Comment on above: Performed By: #### H A1C2, HEMOG, ALB3, BMP3 ####[address] Hemogram w/ Autodiffon 04-10 Abs Baso Cnt 0.0 10*3/uL Normal 0.0-0.2 [facility] Comment on above: Performed By: #### H A1C2, HEMOG, ALB3, BMP3 ####[address] Abs Neutrophile Cnt 7.7 10*3/uL High 1.8-7.0 [facility] Comment on above: Performed By: #### H A1C2, HEMOG, ALB3, BMP3 ####[address] Basophils/100 WBC Auto (Bld) 0.2 % Normal 0.0-2.0 [facility] Comment on above: Performed By: #### H A1C2, HEMOG, ALB3, BMP3 ####[address] Eosinophils Auto #/vol (Bld) 0.0 10*3/uL Normal 0.0-0.5 [facility] Comment on above: Performed By: #### H A1C2, HEMOG, ALB3, BMP3 ####[address] Eosinophils/100 WBC Auto (Bld) 0.1 % Low 1.0-6.0 [facility] Comment on above: Performed By: #### H A1C2, HEMOG, ALB3, BMP3 ####[address] Erythrocyte distribution width Auto Ratio (RBC) 13.4 % Normal 11.5-14.5 [facility] Comment on above: Performed By: #### H A1C2, HEMOG, ALB3, BMP3 ####[address] Granulocytes/100 WBC (Bld) 74.9 % Normal 40.0-80.0 [facility] Comment on above: Performed By: #### H A1C2, HEMOG, ALB3, BMP3 ####[address] Hematocrit Auto Volume Fraction (Bld) 32.0 % Low 35.0-47.0 [facility] Comment on above: Performed By: #### H A1C2, HEMOG, ALB3, BMP3 ####[address] Hemoglobin mass conc (Bld) 10.9 g/dL Low 11.7-16.0 [facility] Comment on above: Performed By: #### H A1C2, HEMOG, ALB3, BMP3 ####[address] Lymphocytes Auto #/vol (Bld) 2.0 10*3/uL Normal 1.0-4.3 [facility] Comment on above: Performed By: #### H A1C2, HEMOG, ALB3, BMP3 ####[address] Lymphocytes/100 WBC Auto (Bld) 19.7 % Low 20.0-40.0 [facility] Comment on above: Performed By: #### H A1C2, HEMOG, ALB3, BMP3 ####[address] MCH Auto Entitic mass (RBC) 32.1 pg Normal 26.0-34.0 [facility] Comment on above: Performed By: #### H A1C2, HEMOG, ALB3, BMP3 ####[address] MCHC Auto mass conc (RBC) 34.2 % Normal 32.0-36.0 [facility] Comment on above: Performed By: #### H A1C2, HEMOG, ALB3, BMP3 ####[address] MCV Auto Entitic volume (RBC) 94.0 fL Normal 79.0-98.0 [facility] Comment on above: Performed By: #### H A1C2, HEMOG, ALB3, BMP3 ####[address] Monocytes Auto #/vol (Bld) 0.5 10*3/uL Normal 0.0-0.8 [facility] Comment on above: Performed By: #### H A1C2, HEMOG, ALB3, BMP3 ####[address] Monocytes/100 WBC Auto (Bld) 5.1 % Normal 2.0-10.0 [facility] Comment on above: Performed By: #### H A1C2, HEMOG, ALB3, BMP3 ####[address] Platelet mean volume Auto Entitic volume (Bld) 7.9 fL Normal 7.4-10.4 [facility] Comment on above: Performed By: #### H A1C2, HEMOG, ALB3, BMP3 ####[address] Platelets Auto #/vol (Bld) 248 10*3/uL Normal 140-440 [facility] Comment on above: Performed By: #### H A1C2, HEMOG, ALB3, BMP3 ####[address] RBC Auto #/vol (Bld) 3.40 10*6/uL Low 3.80-5.20 [facility] Comment on above: Performed By: #### H A1C2, HEMOG, ALB3, BMP3 ####[place] [address] [place], [place] WBC Auto #/vol (Bld) 10.3 10*3/uL Normal 3.6-10.7 [facility] Comment on above: Performed By: #### H A1C2, HEMOG, ALB3, BMP3 ####[place] [address] [address] [place], [place] Magnesiumon 04-10-2018 Magnesium mass conc 2.5 mg/dL High 1.6-2.3 [facility] Comment on above: Performed By: #### H A1C2, HEMOG, ALB3, BMP3 ####[place] [address] [place], [place] Phosphoruson 04-10-2018 Phosphate mass conc 3.3 mg/dL Normal 2.5-4.5 [facility] Comment on above: Performed By: #### H A1C2, HEMOG, ALB3, BMP3 ####[place] [address] [place], [place] Basic Metabolic Panelon 03-13 Anion gap 3 molar conc 14 Normal [facility] Comment on above: Performed By: #### H A1C2, HEMOG, ALB3, BMP3 ####[place] [address] [place], [place] Calcium mass conc 8.6 mg/dL Normal 8.4-10.4 [facility] Comment on above: Performed By: #### H A1C2, HEMOG, ALB3, BMP3 ####[facility] [address] [place], [place] CO2 molar conc 20 mmol/L Low 22-30 [facility] Comment on above: Performed By: #### H A1C2, HEMOG, ALB3, BMP3 ####[facility] [address] [place], [place] Glucose mass conc 210 mg/dL High 70-100 [facility] Comment on above: Performed By: #### H A1C2, HEMOG, ALB3, BMP3 ####[facility] [id number] [place], [place] Urea nitrogen mass conc 14 mg/dL Normal 7-20 [facility] Comment on above: Performed By: #### H A1C2, HEMOG, ALB3, BMP3 ####[place] [address] [place] [address] Creatinine mass conc 0.85 mg/dL Normal 0.52-1.25 [facility] Comment on above: Performed By: #### H A1C2, HEMOG, ALB3, BMP3 ####[place] [address] [place] [address] GFR/1.73 sq M predicted among blacks MDRD vol rate/area (S/P/Bld) mL/min/{1.73_m2} Normal >60 [facility] Comment on above: Performed By: #### H A1C2, HEMOG, ALB3, BMP3 ####[place] [address] [place] [address] GFR/1.73 sq M predicted among non-blacks MDRD vol rate/area (S/P/Bld) mL/min/{1.73_m2} Normal >60 [facility] Comment on above: Result Comment: Sour ce- MDRD equation with creatinine calibration to IDMS(NKDEP) eGFR not recommended for drug dose adjustment Performed By: #### H A1C2, HEMOG, ALB3, BMP3 ####[place] [place] [address] Potassium molar conc 4.1 mmol/L Normal 3.5-5.1 [facility] Comment on above: Performed By: #### H A1C2, HEMOG, ALB3, BMP3 ####[facility] [address] [place] [address] Sodium molar conc 138 mmol/L Normal 137-145 [facility] Comment on above: Performed By: #### H A1C2, HEMOG, ALB3, BMP3 ####[address] [place] [address] Chloride molar conc 104 mmol/L Normal 98-107 [facility] Comment on above: Performed By: #### H A1C2, HEMOG, ALB3, BMP3 ####[address] Hemogram w/ Autodiffon 04-09 Abs Baso Cnt 0.0 10*3/uL Normal 0.0-0.2 [facility] Comment on above: Performed By: #### H A1C2, HEMOG, ALB3, BMP3 ####[address] Abs Neutrophile Cnt 12.0 10*3/uL High 1.8-7.0 [facility] Comment on above: Performed By: #### H A1C2, HEMOG, ALB3, BMP3 ####[address] Basophils/100 WBC Auto (Bld) 0.2 % Normal 0.0-2.0 [facility] Comment on above: Performed By: #### H A1C2, HEMOG, ALB3, BMP3 ####[address] Eosinophils Auto #/vol (Bld) 0.0 10*3/uL Normal 0.0-0.5 [facility] Comment on above: Performed By: #### H A1C2, HEMOG, ALB3, BMP3 ####[address] Eosinophils/100 WBC Auto (Bld) 0.0 % Low 1.0-6.0 [facility] Comment on above: Performed By: #### H A1C2, HEMOG, ALB3, BMP3 ####[address] Erythrocyte distribution width Auto Ratio (RBC) 13.3 % Normal 11.5-14.5 [facility] Comment on above: Performed By: #### H A1C2, HEMOG, ALB3, BMP3 ####[address] Granulocytes/100 WBC (Bld) 91.6 % High 40.0-80.0 [facility] Comment on above: Performed By: #### H A1C2, HEMOG, ALB3, BMP3 ####[address] Hematocrit Auto Volume Fraction (Bld) 38.4 % Normal 35.0-47.0 [facility] Comment on above: Performed By: #### H A1C2, HEMOG, ALB3, BMP3 ####[address] Hemoglobin mass conc (Bld) 13.0 g/dL Normal 11.7-16.0 [facility] Comment on above: Performed By: #### H A1C2, HEMOG, ALB3, BMP3 ####[address] Lymphocytes Auto #/vol (Bld) 0.6 10*3/uL Low 1.0-4.3 [facility] Comment on above: Performed By: #### H A1C2, HEMOG, ALB3, BMP3 ####[address] Lymphocytes/100 WBC Auto (Bld) 4.8 % Low 20.0-40.0 [facility] Comment on above: Performed By: #### H A1C2, HEMOG, ALB3, BMP3 ####[address] MCH Auto Entitic mass (RBC) 31.8 pg Normal 26.0-34.0 [facility] Comment on above: Performed By: #### H A1C2, HEMOG, ALB3, BMP3 ####[address] MCHC Auto mass conc (RBC) 33.9 % Normal 32.0-36.0 [facility] Comment on above: Performed By: #### H A1C2, HEMOG, ALB3, BMP3 ####[address] MCV Auto Entitic volume (RBC) 93.7 fL Normal 79.0-98.0 [facility] Comment on above: Performed By: #### H A1C2, HEMOG, ALB3, BMP3 ####[address] [place], [place] Monocytes Auto #/vol (Bld) 0.5 10*3/uL Normal 0.0-0.8 [facility] Comment on above: Performed By: #### H A1C2, HEMOG, ALB3, BMP3 ####[address] Monocytes/100 WBC Auto (Bld) 3.4 % Normal 2.0-10.0 [facility] Comment on above: Performed By: #### H A1C2, HEMOG, ALB3, BMP3 ####[address] Platelet mean volume Auto Entitic volume (Bld) 8.1 fL Normal 7.4-10.4 [facility] Comment on above: Performed By: #### H A1C2, HEMOG, ALB3, BMP3 ####[address] Platelets Auto #/vol (Bld) 299 10*3/uL Normal 140-440 [facility] Comment on above: Performed By: #### H A1C2, HEMOG, ALB3, BMP3 ####[address] RBC Auto #/vol (Bld) 4.09 10*6/uL Normal 3.80-5.20 [facility] Comment on above: Performed By: #### H A1C2, HEMOG, ALB3, BMP3 ####[address] WBC Auto #/vol (Bld) 13.1 10*3/uL High 3.6-10.7 [facility] Comment on above: Performed By: #### H A1C2, HEMOG, ALB3, BMP3 ####[address] Magnesiumon 04-09-2018 Magnesium mass conc 2.2 mg/dL Normal 1.6-2.3 [facility] Comment on above: Performed By: #### H A1C2, HEMOG, ALB3, BMP3 ####[facility] [address] [place] [address] Phosphoruson 04-09-2018 Phosphate mass conc 2.3 mg/dL Low 2.5-4.5 [facility] Comment on above: Performed By: #### H A1C2, HEMOG, ALB3, BMP3 ####[facility] [place] [address] RF UGI w/o KUB w/ or w/o Del ay Flmon 04-09-2018 RF UGI w/o KUB w/ or w/o Delay Flm Patient Name: AMANDA GRUBBS Fluoroscopy Exam Date/Time 04/09/2018 08:17:29 EDT Exam RF UGI w/o KUB and w/ or w/o Delay Flm Ordering Physician MD TRUONG NICHOLAS Accession Number [id number] Codes [id number] () Reason For Exam bariatric surgery. gastrograffin. [...] Dictated: 04/09/2018 8:33 am Dictating Physician: MD CHARMAINE, Parag GOYAL Signed Date and Time: 04/09/2018 11:44 am Signed by: MD MONTANO B NELSON Transcribed Date and Time: 04/09/2018 8:37 Normal [facility] Basic Metabolic Panelon 10-2 Calcium mass conc 8.8 mg/dL Normal 8.4-10.4 [facility] Comment on above: Performed By: #### H EMDF, MG3, BMP3, PHOS3, ICA ####[address] [place] [address] Anion gap 3 molar conc 12 Normal [facility] Comment on above: Performed By: #### H EMDF, MG3, BMP3, PHOS3, ICA ####[address] [place] [address] CO2 molar conc 23 mmol/L Normal 22-30 [facility] Comment on above: Performed By: #### H EMDF, MG3, BMP3, PHOS3, ICA ####[address] [place] [address] Glucose mass conc 201 mg/dL High 70-100 [facility] Comment on above: Performed By: #### H EMDF, MG3, BMP3, PHOS3, ICA ####[address] [place] [address] Urea nitrogen mass conc 13 mg/dL Normal 7-20 [facility] Comment on above: Performed By: #### H EMDF, MG3, BMP3, PHOS3, ICA ####[address] [place] [address] Creatinine mass conc 0.96 mg/dL Normal 0.52-1.25 [facility] Comment on above: Performed By: #### H EMDF, MG3, BMP3, PHOS3, ICA ####[address] [place] [address] GFR/1.73 sq M predicted among blacks MDRD vol rate/area (S/P/Bld) mL/min/{1.73_m2} Normal >60 [facility] Comment on above: Performed By: #### H EMDF, MG3, BMP3, PHOS3, ICA ####[address] [place] GFR/1.73 sq M predicted among non-blacks MDRD vol rate/area (S/P/Bld) mL/min/{1.73_m2} Normal >60 [facility] Comment on above: Result Comment: Sour ce- MDRD equation with creatinine calibration to IDMS(NKDEP) eGFR not recommended for drug dose adjustment Performed By: #### H EMDF, MG3, BMP3, PHOS3, ICA ####[address] [place], [place] Chloride molar conc 102 mmol/L Normal 98-107 [facility] Comment on above: Performed By: #### H EMDF, MG3, BMP3, PHOS3, ICA ####[address] Potassium molar conc 3.9 mmol/L Normal 3.5-5.1 [facility] Comment on above: Performed By: #### H EMDF, MG3, BMP3, PHOS3, ICA ####[facility] [address] Sodium molar conc 138 mmol/L Normal 137-145 [facility] Comment on above: Performed By: #### H EMDF, MG3, BMP3, PHOS3, ICA ####[address] Calcium,Ionizedon 04-08-2018 Ionized Ca,Measured 4.30 mg/dL Normal 4.30-5.20 [facility] Comment on above: Performed By: #### H A1C2, HEMOG, ALB3, BMP3 ####[facility] [address] [place], [place] pH, Ionized Calcium 7.29 Low 7.31-7.46 [facility] Comment on above: Performed By: #### H A1C2, HEMOG, ALB3, BMP3 ####[address] Hemogram w/ Autodiffon 04-08 Abs Baso Cnt 0.0 10*3/uL Normal 0.0-0.2 [facility] Comment on above: Performed By: #### H EMDF, MG3, BMP3, PHOS3, ICA ####[address] Abs Neutrophile Cnt 10.7 10*3/uL High 1.8-7.0 [facility] Comment on above: Performed By: #### H EMDF, MG3, BMP3, PHOS3, ICA ####[address] Basophils/100 WBC Auto (Bld) 0.1 % Normal 0.0-2.0 [facility] Comment on above: Performed By: #### H EMDF, MG3, BMP3, PHOS3, ICA ####[address] Eosinophils Auto #/vol (Bld) 0.0 10*3/uL Normal 0.0-0.5 [facility] Comment on above: Performed By: #### H EMDF, MG3, BMP3, PHOS3, ICA ####[address] Eosinophils/100 WBC Auto (Bld) 0.1 % Low 1.0-6.0 [facility] Comment on above: Performed By: #### H EMDF, MG3, BMP3, PHOS3, ICA ####[address] Erythrocyte distribution width Auto Ratio (RBC) 13.3 % Normal 11.5-14.5 [facility] Comment on above: Performed By: #### H EMDF, MG3, BMP3, PHOS3, ICA ####[address] Granulocytes/100 WBC (Bld) 88.5 % High 40.0-80.0 [facility] Comment on above: Performed By: #### H EMDF, MG3, BMP3, PHOS3, ICA ####[address] Hematocrit Auto Volume Fraction (Bld) 41.9 % Normal 35.0-47.0 [facility] Comment on above: Performed By: #### H EMDF, MG3, BMP3, PHOS3, ICA ####[address] Hemoglobin mass conc (Bld) 14.0 g/dL Normal 11.7-16.0 [facility] Comment on above: Performed By: #### H EMDF, MG3, BMP3, PHOS3, ICA ####[address] Lymphocytes Auto #/vol (Bld) 1.1 10*3/uL Normal 1.0-4.3 [facility] Comment on above: Performed By: #### H EMDF, MG3, BMP3, PHOS3, ICA ####[address] Lymphocytes/100 WBC Auto (Bld) 9.2 % Low 20.0-40.0 [facility] Comment on above: Performed By: #### H EMDF, MG3, BMP3, PHOS3, ICA ####[address] MCH Auto Entitic mass (RBC) 31.5 pg Normal 26.0-34.0 [facility] Comment on above: Performed By: #### H EMDF, MG3, BMP3, PHOS3, ICA ####[address] MCHC Auto mass conc (RBC) 33.4 % Normal 32.0-36.0 [facility] Comment on above: Performed By: #### H EMDF, MG3, BMP3, PHOS3, ICA ####[address] MCV Auto Entitic volume (RBC) 94.2 fL Normal 79.0-98.0 [facility] Comment on above: Performed By: #### H EMDF, MG3, BMP3, PHOS3, ICA ####[address] Monocytes Auto #/vol (Bld) 0.3 10*3/uL Normal 0.0-0.8 [facility] Comment on above: Performed By: #### H EMDF, MG3, BMP3, PHOS3, ICA ####[address] [place], [place] Monocytes/100 WBC Auto (Bld) 2.1 % Normal 2.0-10.0 [facility] Comment on above: Performed By: #### H EMDF, MG3, BMP3, PHOS3, ICA ####[address] [place], [place] Platelet mean volume Auto Entitic volume (Bld) 7.8 fL Normal 7.4-10.4 [facility] Comment on above: Performed By: #### H EMDF, MG3, BMP3, PHOS3, ICA ####[address] Platelets Auto #/vol (Bld) 293 10*3/uL Normal 140-440 [facility] Comment on above: Performed By: #### H EMDF, MG3, BMP3, PHOS3, ICA ####[address] RBC Auto #/vol (Bld) 4.45 10*6/uL Normal 3.80-5.20 [facility] Comment on above: Performed By: #### H EMDF, MG3, BMP3, PHOS3, ICA ####[address] WBC Auto #/vol (Bld) 12.1 10*3/uL High 3.6-10.7 [facility] Comment on above: Performed By: #### H EMDF, MG3, BMP3, PHOS3, ICA ####[address] Magnesiumon 04-08-2018 Magnesium mass conc 2.5 mg/dL High 1.6-2.3 [facility] Comment on above: Performed By: #### H EMDF, MG3, BMP3, PHOS3, ICA ####[facility] [address] [place] [address] Phosphoruson 04-08-2018 Phosphate mass conc 4.5 mg/dL Normal 2.5-4.5 [facility] Comment on above: Performed By: #### H EMDF, MG3, BMP3, PHOS3, ICA ####[facility] [place] [address] Surgical Pathologyon 018 Surgical Pathology [id number] [facility] PATHOLOG[facility] AND LABORATORY MEDICINE [address] [place], [place] [id number] FINAL SURGICAL PATHOLOGY REPORT NAM E: AMANDA GRUBBS .O.B.: 1970 47 Y F BILLING NO.: [id number]: [id number] PROCEDURE 04/08/2018 DATE:SURGEON: ROLAN [...] NEEDLE OR WEDGE BIOPSY, MEDICAL GR OSS DESCRIPTION:"Liver biopsy"Received in formalin are two, red-grant to yellow-grant tissue segments 0.5and 0.9 cm. Submitted in toto. (2 ns, 1) JCK/JAFDisclaimer: The following statement applies to allimmunohistochemistry, in situ hybridization, molecular studies, andimmunofluorescence testing.The use of one or more reagents in the above tests is regulated as ananalyte specific reagent (ASR). These tests were developed and theirperformance characteristics determined by the clinical laboratories [facility]. They have not been cleared by the [...] false negativity on decalcified specimens.Professional Performing Location: [address] [address]. DEPARTMENT OF PATHOLOGY AND LABORATORY MEDICINE [place], [place] [address] Normal [facility] Basic Metabolic Panelon 10-2 Anion gap 3 molar conc 10 Normal [facility] Comment on above: Performed By: #### B MAYNOR3 ####[facility] [facility] [place] [address] Calcium mass conc 10.0 mg/dL Normal 8.4-10.4 [facility] Comment on above: Performed By: #### B MP3 ####[address] [facility] [place] CO2 molar conc 26 mmol/L Normal 22-30 [facility] Comment on above: Performed By: #### B MP3 ####[address] [facility] [place] Glucose mass conc 89 mg/dL Normal 70-100 [facility] Comment on above: Performed By: #### B MP3 ####[address] [facility] [place] Urea nitrogen mass conc 18 mg/dL Normal 7-20 [facility] Comment on above: Performed By: #### B MP3 ####[address] [facility] [place] Creatinine mass conc 0.82 mg/dL Normal 0.52-1.25 [facility] Comment on above: Performed By: #### B MP3 ####[address] [facility] [place] GFR/1.73 sq M predicted among blacks MDRD vol rate/area (S/P/Bld) mL/min/{1.73_m2} Normal >60 [facility] Comment on above: Performed By: #### B MP3 ####[address] [facility] [place] GFR/1.73 sq M predicted among non-blacks MDRD vol rate/area (S/P/Bld) mL/min/{1.73_m2} Normal >60 [facility] Comment on above: Result Comment: Sour ce- MDRD equation with creatinine calibration to IDMS(NKDEP) eGFR not recommended for drug dose adjustment Performed By: #### B MP3 ####[address] [facility] [place] Chloride molar conc 103 mmol/L Normal 98-107 [facility] Comment on above: Performed By: #### B MP3 ####[address] [place] [address] Potassium molar conc 4.9 mmol/L Normal 3.5-5.1 [facility] Comment on above: Performed By: #### B MP3 ####[address] [place], [place] Sodium molar conc 139 mmol/L Normal 137-145 [facility] Comment on above: Performed By: #### B MP3 ####[address] [place], [place] Albumin, Serumon 03-14-2018 Albumin mass conc 4.7 g/dL Normal 3.5-5.0 [facility] Comment on above: Performed By: #### H A1C2, HEMOG, ALB3, BMP3 ####[address] [place], [place] Basic Metabolic Panelon Anion gap 3 molar conc 11 Normal [facility] Comment on above: Performed By: #### H A1C2, HEMOG, ALB3, BMP3 ####[address] [place], [place] Calcium mass conc 10.1 mg/dL Normal 8.4-10.4 [facility] Comment on above: Performed By: #### H A1C2, HEMOG, ALB3, BMP3 ####[address] [place], [place] CO2 molar conc 27 mmol/L Normal 22-30 [facility] Comment on above: Performed By: #### H A1C2, HEMOG, ALB3, BMP3 ####[address] [place], [place] Glucose mass conc 90 mg/dL Normal 70-100 [facility] Comment on above: Performed By: #### H A1C2, HEMOG, ALB3, BMP3 ####[address] [place], [place] Urea nitrogen mass conc 12 mg/dL Normal 7-20 [facility] Comment on above: Performed By: #### H A1C2, HEMOG, ALB3, BMP3 ####[address] [place], [place] Creatinine mass conc 0.83 mg/dL Normal 0.52-1.25 [facility] Comment on above: Performed By: #### H A1C2, HEMOG, ALB3, BMP3 ####[address] [place], [place] GFR/1.73 sq M predicted among blacks MDRD vol rate/area (S/P/Bld) mL/min/{1.73_m2} Normal >60 [facility] Comment on above: Performed By: #### H A1C2, HEMOG, ALB3, BMP3 ####[address] GFR/1.73 sq M predicted among non-blacks MDRD vol rate/area (S/P/Bld) mL/min/{1.73_m2} Normal >60 [facility] Comment on above: Result Comment: Sour ce- MDRD equation with creatinine calibration to IDMS(NKDEP) eGFR not recommended for drug dose adjustment Performed By: #### H A1C2, HEMOG, ALB3, BMP3 ####[address] Chloride molar conc 102 mmol/L Normal 98-107 [facility] Comment on above: Performed By: #### H A1C2, HEMOG, ALB3, BMP3 ####[address] [place], [place] Potassium molar conc 4.7 mmol/L Normal 3.5-5.1 [facility] Comment on above: Performed By: #### H A1C2, HEMOG, ALB3, BMP3 ####[address] Sodium molar conc 140 mmol/L Normal 137-145 [facility] Comment on above: Performed By: #### H A1C2, HEMOG, ALB3, BMP3 ####[address] [place], [place] Hemoglobin A1Con 03-14-2018 Glucose mass conc 120 mg/dL Normal [facility] Comment on above: Performed By: #### H A1C2, HEMOG, ALB3, BMP3 ####[address] [place], [place] Hemoglobin A1c/Hemoglobin.total mass fraction (Bld) 5.8 % High 4.0-5.7 [facility] Comment on above: Result Comment: --Hg bA1C levels may not be accurate in patients who haverenal disease, received recent blood transfusions, are anemic,or who have dyshemoglobinemia. Performed By: #### H A1C2, HEMOG, ALB3, BMP3 ####[address] Hemogramon 03-14-2018 Erythrocyte distribution width Auto Ratio (RBC) 13.3 % Normal 11.5-14.5 [facility] Comment on above: Performed By: #### H A1C2, HEMOG, ALB3, BMP3 ####[address] Hematocrit Auto Volume Fraction (Bld) 38.9 % Normal 35.0-47.0 [facility] Comment on above: Performed By: #### H A1C2, HEMOG, ALB3, BMP3 ####[address] Hemoglobin mass conc (Bld) 13.2 g/dL Normal 11.7-16.0 [facility] Comment on above: Performed By: #### H A1C2, HEMOG, ALB3, BMP3 ####[address] MCH Auto Entitic mass (RBC) 31.9 pg Normal 26.0-34.0 [facility] Comment on above: Performed By: #### H A1C2, HEMOG, ALB3, BMP3 ####[address] MCHC Auto mass conc (RBC) 34.0 % Normal 32.0-36.0 [facility] Comment on above: Performed By: #### H A1C2, HEMOG, ALB3, BMP3 ####[address] [place], [place] MCV Auto Entitic volume (RBC) 93.9 fL Normal 79.0-98.0 [facility] Comment on above: Performed By: #### H A1C2, HEMOG, ALB3, BMP3 ####[address] [place], [place] Platelet mean volume Auto Entitic volume (Bld) 7.9 fL Normal 7.4-10.4 [facility] Comment on above: Performed By: #### H A1C2, HEMOG, ALB3, BMP3 ####[address] Platelets Auto #/vol (Bld) 304 10*3/uL Normal 140-440 [facility] Comment on above: Performed By: #### H A1C2, HEMOG, ALB3, BMP3 ####[address] RBC Auto #/vol (Bld) 4.15 10*6/uL Normal 3.80-5.20 [facility] Comment on above: Performed By: #### H A1C2, HEMOG, ALB3, BMP3 ####[address] [place], [place] WBC Auto #/vol (Bld) 6.7 10*3/uL Normal 3.6-10.7 [facility] Comment on above: Performed By: #### H A1C2, HEMOG, ALB3, BMP3 ####[address] [place], [place] Surgical Pathologyon 018 Surgical Pathology [id number] [facility] DE[facility] PATHOLOGY AND LABORATORY MEDICINE [address] [place] [address] FINAL SURGICAL PATHOLOGY REPORT NAM E: AMANDA GRUBBS .O.B.: 1970 47 [address] [place] NO.: [id number]: [id number] PROCEDURE 11/27/2017 DATE:SURGEON: ROLAN JORDAN M.D. [...] foridentifying Helicobacter pylori: Recommendations from the Sav [employer]we.[place] [employer]. Am J Surg Pathol. 2013Nov;37(11):e12-22.NATALIE/Yasir ALLEN M.D. [facility] INFORMATION: GERDSPECIMEN: GASTRIC BIOPSY GRO SS DESCRIPTION:"Stomach - antrum"Received in formalin are two segments of grant tissue 0.2 cm each.Submitted in toto. (2 ns, 1) RADHA/Hernadnezimer: The following statement applies to allimmunohistochemistry, in situ hybridization, molecular studies, andimmunofluorescence testing.The use of one or more reagents in the above tests is regulated as ananalyte specific reagent (ASR). These tests were developed and theirperformance characteristics determined by the clinical laboratories [facility]. They have not been cleared by the [...] false negativity on decalcified specimens.Professional Performing Location: [place] [address]. DEPARTMENT OF PATHOLOGY AND LABORATORY MEDICINE [place], [place] [address] Normal [facility] Vital Signs Date Time Vital Sign Value Performing Clinician Facility 03-05-2025 08:41-0400 Body height 160.[address] Franky Pearson DO Work Phone: [facility] 03-05-2025 08:41-0400 Body mass index (BMI) [Ratio] 29.7 kg/m2 Dr. Franky Pearson DO Work Phone: [facility] 03-05-2025 08:41-0400 Body temperature 98.2 [degF] Dr. Franky Pearson DO Work Phone: [facility] 03-05-2025 08:41-0400 Body weight 76.[address] Franky Pearson DO Work Phone: [facility] 03-05-2025 08:41-0400 Diastolic blood pressure 83 mm[Hg] Dr. Franky Pearson DO Work Phone: [facility] 03-05-2025 08:41-0400 Heart rate 80 /min Dr. Franky Pearson DO Work Phone: [facility] 03-05-2025 08:41-0400 Respiratory rate 16 /min Dr. Franky Pearson DO Work Phone: [facility] 03-05-2025 08:41-0400 SaO2% (BldA) [Mass fraction] 97 % Dr. Franky Pearson DO Work Phone: [facility] 03-05-2025 08:41-0400 Systolic blood pressure 123 mm[Hg] Dr. Franky Pearson DO Work Phone: [facility] 02-06-2025 08:21-0400 Body height 160.[address] Franky Pearson DO Work Phone: [facility] 02-06-2025 08:21-0400 Body mass index (BMI) [Ratio] 29.9 kg/m2 Dr. Franky Pearson DO Work Phone: [facility] 02-06-2025 08:21-0400 Body weight 76.[address] Franky Pearson DO Work Phone: [facility] 02-02-2025 13:41-0400 Body temperature 98.3 [degF] Dr. Franky Pearson DO Work Phone: [facility] 02-02-2025 13:41-0400 Diastolic blood pressure 62 mm[Hg] Dr. Franky Pearson DO Work Phone: [facility] 02-02-2025 13:41-0400 Heart rate 81 /min Dr. Franky Pearson DO Work Phone: [facility] 02-02-2025 13:41-0400 Respiratory rate 16 /min Dr. Franky Pearson DO Work Phone: [facility] 02-02-2025 13:41-0400 SaO2% (BldA) [Mass fraction] 98 % Dr. Franky Pearson DO Work Phone: [facility] 02-02-2025 13:41-0400 Systolic blood pressure 122 mm[Hg] Dr. Franky Pearson DO Work Phone: [facility] 01-29-2025 09:18-0400 Body height 160.[address] Franky Pearson DO Work Phone: [facility] 01-29-2025 09:18-0400 Body mass index (BMI) [Ratio] 29.9 kg/m2 Dr. Franky Pearson DO Work Phone: [facility] 01-29-2025 09:18-0400 Body weight 76.[address] Franky Pearson DO Work Phone: [facility] 01-29-2025 09:18-0400 Diastolic blood pressure 72 mm[Hg] Dr. Franky Pearson DO Work Phone: [facility] 01-29-2025 09:18-0400 Heart rate 90 /min Dr. Franky Pearson DO Work Phone: [facility] 01-29-2025 09:18-0400 Respiratory rate 16 /min Dr. Franky Pearson DO Work Phone: [facility] 01-29-2025 09:18-0400 SaO2% (BldA) [Mass fraction] 98 % Dr. Franky Pearson DO Work Phone: [facility] 01-29-2025 09:18-0400 Systolic blood pressure 116 mm[Hg] Dr. Franky Pearson DO Work Phone: [facility] 01-16-2025 07:25-0400 Body temperature 98.1 [degF] Dr. Franky Pearson DO Work Phone: [facility] 01-16-2025 07:25-0400 Diastolic blood pressure 65 mm[Hg] Dr. Franky Pearson DO Work Phone: [facility] 01-16-2025 07:25-0400 Heart rate 72 /min Dr. Franky Pearson DO Work Phone: [facility] 01-16-2025 07:25-0400 Respiratory rate 16 /min Dr. Franky Pearson DO Work Phone: [facility] 01-16-2025 07:25-0400 SaO2% (BldA) [Mass fraction] 100 % Dr. Franky Pearson DO Work Phone: [facility] 01-16-2025 07:25-0400 Systolic blood pressure 97 mm[Hg] Dr. Franky Pearson DO Work Phone: [facility] 01-16-2025 05:54-0400 Body height 160.[address] Franky Pearson DO Work Phone: [facility] [facility]25 05:54-0400 Body mass index (BMI) [Ratio] 28.9 kg/m2 Dr. Franky Pearson DO Work Phone: [facility] 01-16-2025 05:54-0400 Body weight [address] Franky Pearson DO Work Phone: [facility] 11-26-2024 09:57-0400 Body height 160.[address] Franky Pearson DO Work Phone: [facility] 11-26-2024 09:57-0400 Body mass index (BMI) [Ratio] 29 kg/m2 Dr. Franky Pearson DO Work Phone: [facility] 11-26-2024 09:57-0400 Body temperature 98.5 [degF] Dr. Franky Pearson DO Work Phone: [facility] 11-26-2024 09:57-0400 Body weight 74.[address] Franky Pearson DO Work Phone: [facility] 11-26-2024 09:57-0400 Diastolic blood pressure 93 mm[Hg] Dr. Franky Pearson DO Work Phone: [facility] 11-26-2024 09:57-0400 Heart rate 85 /min Dr. Franky Pearson DO Work Phone: [facility] 11-26-2024 09:57-0400 Respiratory rate 16 /min Dr. Franky Pearson DO Work Phone: [facility] 11-26-2024 09:57-0400 SaO2% (BldA) [Mass fraction] 97 % Dr. Franky Pearson DO Work Phone: [facility] 11-26-2024 09:57-0400 Systolic blood pressure 139 mm[Hg] Dr. Franky Pearson DO Work Phone: [facility] 09-25-2024 10:43-0400 Body mass index (BMI) [Ratio] 29 kg/m2 Dr. Franky Pearson DO Work Phone: [facility] 09-25-2024 10:43-0400 Body weight 74.[address] Franky Pearson DO Work Phone: [facility] 09-25-2024 10:43-0400 Diastolic blood pressure 78 mm[Hg] Dr. Franky Pearson DO Work Phone: [facility] 09-25-2024 10:43-0400 Systolic blood pressure 118 mm[Hg] Dr. Franky Pearson DO Work Phone: [facility] 08-19-2024 07:30-0400 Body mass index (BMI) [Ratio] 29.2 kg/m2 Dr. Franky Pearson DO Work Phone: [facility] 08-19-2024 07:30-0400 Body temperature 97.5 [degF] Dr. Franky Pearson DO Work Phone: [facility] 08-19-2024 07:30-0400 Body weight 74.[address] Franky Pearson DO Work Phone: [facility] 08-19-2024 07:30-0400 Diastolic blood pressure 86 mm[Hg] Dr. Franky Pearson DO Work Phone: [facility] 08-19-2024 07:30-0400 Heart rate 84 /min Dr. Franky Pearson DO Work Phone: [facility] 08-19-2024 07:30-0400 Respiratory rate 18 /min Dr. Franky Pearson DO Work Phone: [facility] 08-19-2024 07:30-0400 SaO2% (BldA) [Mass fraction] 98 % Dr. Franky Pearson DO Work Phone: [facility] 08-19-2024 07:30-0400 Systolic blood pressure 126 mm[Hg] Dr. Franky Pearson DO Work Phone: [facility] 08-13-2024 08:34-0500 Body temperature 97.6 [degF] Dr. Franky Pearson DO Work Phone: [facility] 08-13-2024 08:34-0500 Diastolic blood pressure 60 mm[Hg] Dr. Franky Pearson DO Work Phone: [facility] 08-13-2024 08:34-0500 Heart rate 83 /min Dr. Franky Pearson DO Work Phone: [facility] 08-13-2024 08:34-0500 SaO2% (BldA) [Mass fraction] 99 % Dr. Franky Pearson DO Work Phone: [facility] 08-13-2024 08:34-0500 Systolic blood pressure 120 mm[Hg] Dr. Franky Pearson DO Work Phone: [facility] 05-13-2023 10:41-0500 Body height 160.[address] Yessi Mcqueen Work Phone: [facility] 05-13-2023 10:41-0500 Body temperature 98 [degF] Dr. Yessi Mcqueen Work Phone: [facility] 05-13-2023 10:41-0500 Diastolic blood pressure 88 mm[Hg] Dr. Yessi Mcqueen Work Phone: [facility] 05-13-2023 10:41-0500 Heart rate 81 /min Dr. Yessi Mcqueen Work Phone: [facility] 05-13-2023 10:41-0500 Respiratory rate 17 /min Dr. Yessi Mcqueen Work Phone: [facility] 05-13-2023 10:41-0500 SaO2% (BldA) [Mass fraction] 96 % Dr. Yessi Mcqueen Work Phone: [facility] 05-13-2023 10:41-0500 Systolic blood pressure 126 mm[Hg] Dr. Yessi Mcqueen Work Phone: [facility] 08-26-2022 19:04-0400 Body temperature 97.88 [degF] LINDA MARTINEZ MD [facility] 08-26-2022 18:57-0400 Body temperature 97.88 [degF] LINDA MARTINEZ MD [facility] 08-26-2022 18:30-0400 Diastolic Blood Pressure Non-Invasive 72 1 LINDA MARTINEZ MD [facility] 08-26-2022 18:30-0400 Heart rate 80 /min LINDA MARTINEZ MD [facility] 08-26-2022 18:30-0400 Respiratory rate 13 /min LINDA MARTINEZ MD [facility] 08-26-2022 18:30-0400 Systolic Blood Pressure Non-Invasive 130 1 LINDA MARTINEZ MD [facility] 08-26-2022 18:00-0400 Diastolic Blood Pressure Non-Invasive 69 1 LINDA MARTINEZ MD [facility] 08-26-2022 18:00-0400 Heart rate 81 /min LINDA MARTINEZ MD [facility] 08-26-2022 18:00-0400 Respiratory rate 14 /min LINDA MARTINEZ MD [facility] 08-26-2022 18:00-0400 Systolic Blood Pressure Non-Invasive 127 1 LINDA MARTINEZ MD [facility] 08-26-2022 17:30-0400 Diastolic Blood Pressure Non-Invasive 72 1 LINDA MARTINEZ MD [facility] 08-26-2022 17:30-0400 Heart rate 80 /min LINDA MARTINEZ MD [facility] 08-26-2022 17:30-0400 Respiratory rate 13 /min LINDA MARTINEZ MD [facility] 08-26-2022 17:30-0400 Systolic Blood Pressure Non-Invasive 130 1 LINDA MARTINEZ MD [facility] 08-26-2022 16:07-0400 Body temperature 96.62 [degF] LINDA MARTINEZ MD [facility] 08-18-2022 14:03-0500 Body height 160.7 cm Shayna Andrade MD Work Phone: [facility] 08-18-2022 14:03-0500 Body mass index (BMI) [Ratio] 31.74 kg/m2 Shayna Andrade MD Work Phone: [facility] 08-18-2022 14:03-0500 Body weight 81.92 kg Shayna Andrade MD Work Phone: [facility] 08-18-2022 14:03-0500 Diastolic blood pressure 79 mm[Hg] Shayna Andrade MD Work Phone: [facility] 08-18-2022 14:03-0500 Heart rate 94 /min Shayna Andrade MD Work Phone: [facility] 08-18-2022 14:03-0500 Systolic blood pressure 121 mm[Hg] Shayna Andrade MD Work Phone: [facility] 07-07-2022 10:09-0500 Body height 160.7 cm Shayna Andrade MD Work Phone: [facility] 07-07-2022 10:09-0500 Body mass index (BMI) [Ratio] 32.3 kg/m2 Shayna Andrade MD Work Phone: [facility] 07-07-2022 10:09-0500 Body weight 83.37 kg Shayna Andrade MD Work Phone: [facility] 07-07-2022 10:09-0500 Diastolic blood pressure 82 mm[Hg] Shayna Andrade MD Work Phone: [facility] 07-07-2022 10:09-0500 Heart rate 84 /min Shayna Andrade MD Work Phone: [facility] 07-07-2022 10:09-0500 Respiratory rate 14 /min Shayna Andrade MD Work Phone: [facility] 07-07-2022 10:09-0500 Systolic blood pressure 122 mm[Hg] Shayna Andrade MD Work Phone: [facility] 03-03-2022 09:25-0400 Diastolic Blood Pressure NBP [address] ROBSON PUGH MD [facility] 03-03-2022 09:25-0400 Heart rate 80 /min DR ROBSON PUGH MD [facility] 03-03-2022 09:25-0400 Respiratory rate 14 /min DR ROBSON PUGH MD [facility] 03-03-2022 09:25-0400 Systolic Blood Pressure NBP [address] ROBSON PUGH MD [facility] 03-03-2022 09:20-0400 Diastolic Blood Pressure NBP [address] ROBSON PUGH MD [facility] 03-03-2022 09:20-0400 Heart rate 73 /min DR ROBSON PUGH MD [facility] 03-03-2022 09:20-0400 Respiratory rate 21 /min DR ROBSON PUGH MD [facility] 03-03-2022 09:20-0400 Systolic Blood Pressure NBP [address] ROBSON PUGH MD [facility] 03-03-2022 09:16-0400 Diastolic Blood Pressure NBP [address] ROBSON PUGH MD [facility] 03-03-2022 09:16-0400 Heart rate 78 /min DR ROBSON PUGH MD [facility] 03-03-2022 09:16-0400 Respiratory rate 15 /min DR ROBSON PUGH MD [facility] 03-03-2022 09:16-0400 Systolic Blood Pressure NBP [address] ROBSON PUGH MD [facility] 03-03-2022 07:55-0400 Body height 162.[address] ROBSON PUGH MD [facility] 03-03-2022 07:55-0400 Body temperature 98.06 [degF] DR ROBSON PUGH MD [facility] 03-03-2022 07:55-0400 Body weight 79.[address] ROBSON PUGH MD [facility] 03-03-2022 07:55-0400 Body weight 30.07 kg/m2 DR ROBSON PUGH MD [facility] 05-22-2021 05:00-0500 Diastolic blood pressure 79 mm[Hg] RUY RIVERA MD [facility] 05-22-2021 05:00-0500 Heart rate 70 /min RUY RIVERA MD [facility] 05-22-2021 05:00-0500 Mean blood pressure 91 mm[Hg] RUY RIVERA MD [facility] 05-22-2021 05:00-0500 Reason For Taking VItal Signs RUY RIVERA MD [facility] 05-22-2021 05:00-0500 Respiratory rate 14 /min RUY RIVERA MD [facility] 05-22-2021 05:00-0500 Systolic blood pressure 114 mm[Hg] RUY RIVERA MD [facility] 05-22-2021 04:24-0500 Body temperature 98.06 [degF] RUY RIVERA MD [facility] 05-22-2021 04:24-0500 Diastolic blood pressure 97 mm[Hg] RUY RIVERA MD [facility] 05-22-2021 04:24-0500 Heart rate 81 /min RUY RIVERA MD [facility] 05-22-2021 04:24-0500 Mean blood pressure 108 mm[Hg] RUY RIVERA MD [facility] 05-22-2021 04:24-0500 Respiratory rate 16 /min RUY RIVERA MD [facility] 05-22-2021 04:24-0500 Systolic blood pressure 130 mm[Hg] RUY RIVERA MD [facility] Encounters Encounter Date Encounter Type Care Provider Facility Start: 05-15-2025 ambulatory Franky Pearson Facility: [facility] Start: 03-05-[address] Franky Pearson DO -Sleep Lab Work Phone: Start: 03-05-2025 End: 03-05-2025 Patient encounter procedure Kiersten PEREZ -[facility] Work Phone: Start: 03-05-2025 End: 03-05-[address] Franky Pearson DO Work Phone: -[facility] Start: 03-05-2025 End: 03-05-2025 ambulatory Franky Pearson Facility:[facility] Start: 02-19-2025 End: 02-19-[address] Franky Pearson DO Work Phone: [facility] Start: 02-19-2025 End: 02-19-[address] Franky Pearson DO [facility] Work Phone: Start: 02-19-2025 End: 02-19-2025 ambulatory Franky Pearson Facility:[facility] Start: 02-06-2025 End: 02-06-[address] Allan Coleman MD -[facility] Start: 02-06-2025 End: 02-06-[address] Franky Pearson DO Work Phone: -[facility] Start: 02-02-2025 End: 02-02-2025 Patient encounter procedure Angus HURT [facility] Work Phone: Start: 02-02-2025 End: 02-02-[address] Franky Pearson DO Work Phone: [facility] Start: 02-02-2025 End: 02-02-2025 ambulatory Angus HURT Facility:[facility] Start: 01-29-2025 End: 01-29-2025 Patient encounter procedure Kiersten PEREZ -[facility] Work Phone: Start: 01-29-2025 End: 01-29-[address] Franky Pearson DO Work Phone: -[facility] Start: 01-16-2025 ambulatory Franky Pearson Facility: [facility] Start: 01-16-2025 Non-patient / Non-visit Rock Joyner nd DO -[facility] Start: 01-16-2025 End: 01-16-2025 Admission to same day surgery center Rock Pineda DO -Endoscopy Work Phone: Start: 01-16-2025 End: 01-16-[address] Franky Pearson DO Work Phone: -Endoscopy Start: 01-05-2025 End: 01-05-[address] Yessi Mcqueen DC -[facility] Work Phone: Start: 01-05-2025 End: 01-05-[address] Franky Pearson DO Work Phone: -[facility] Start: 12-18-2024 End: 12-18-[address] Yessi Mcqueen DC -[facility] Work Phone: Start: 12-18-2024 End: 12-18-[address] Franky Pearson DO Work Phone: -[facility] Start: 11-26-2024 End: 11-26-2024 Patient encounter procedure Kiersten PEREZ -[facility] Work Phone: Start: 11-26-2024 End: 11-26-[address] Franky Pearson DO Work Phone: [facility] Work Phone: Start: 09-25-2024 End: 09-25-[address] Yessi Mcqueen DC -[facility] Work Phone: Start: 09-25-2024 End: 09-25-2024 ambulatory Yessi Mcqueen Facility:[facility] Start: 08-19-2024 End: 08-19-2024 Patient encounter procedure LACEY Lyman -[facility] Work Phone: Start: 08-19-2024 End: 08-19-2024 ambulatory Moon Lyman Facility:[facility] Start: 08-13-2024 End: 08-13-2024 Patient encounter procedure Jose M PEREZ -[facility] Work Phone: Start: 08-13-2024 End: 08-13-2024 ambulatory Franky Pearson Facility:[facility] Start: 07-23-2024 End: 07-23-2024 ambulatory Franky Pearson Facility:[facility] Start: 07-01-2024 End: 07-01-2024 ambulatory Franky Pearson Facility:[facility] Start: 06-30-2024 End: 06-30-2024 ambulatory Rolan Valdes NP Facility:[facility] Start: 06-27-2024 End: 06-27-2024 ambulatory Hans HURT Facility:[facility] Start: 06-13-2024 ambulatory Franky Pearson Facility: [facility] Start: 06-13-2024 End: 06-13-2024 ambulatory Franky Pearson Facility:[facility] Start: 05-13-2024 End: 05-13-2024 ambulatory Franky Pearson Facility:[facility] Start: 05-06-2024 ambulatory Franky Pearson Facility: [facility] Start: 05-06-2024 End: 05-06-2024 ambulatory Franky Pearson Facility:[facility] Start: 05-05-2024 End: 05-05-2024 ambulatory Franky Pearson Facility:[facility] Start: 04-17-2024 End: 04-17-2024 ambulatory Hans Daljit HURT Facility:[facility] Start: 04-15-2024 ambulatory Criselda Muñoz Facility :[facility] Start: 09-12-2023 End: 09-12-[address] Allan Coleman Work Phone: [facility] Work Phone: Start: 09-12-2023 End: 09-12-[address] Allan Coleman Work Phone: [facility], [facility] Start: 07-26-2023 End: 07-26-2023 ambulatory DIRECTOR OF CONSERVATION-C Rolan Valdes DIRECTOR OF CONSERVATION Work Phone: [facility] Work Phone: Start: 07-26-2023 End: 07-26-2023 Patient encounter procedure DIRECTOR OF CONSERVATION-C Rolan Valdes DIRECTOR OF CONSERVATION Work Phone: [facility]-Cat Scan, [facility] Work Phone: Start: 07-24-2023 End: 07-24-2023 ambulatory DIRECTOR OF CONSERVATION-C Rolan Valdes DIRECTOR OF CONSERVATION Work Phone: [facility] Work Phone: Start: 07-24-2023 End: 07-24-2023 Patient encounter procedure DIRECTOR OF CONSERVATION-C Rolan Valdes DIRECTOR OF CONSERVATION Work Phone: [facility]-Outpatient Bone Densitometry Work Phone: Start: 06-22-2023 End: 06-22-[address] Yessi Mcqueen Work Phone: [facility] Work Phone: Start: 06-22-2023 End: 06-22-[address] [facility] Start: 06-01-2023 End: 06-01-[address] Yessi Mcqueen Work Phone: [facility] Start: 05-13-2023 End: 05-13-[address] Yessi Mcqueen Work Phone: [facility] Work Phone: Start: 03-20-2023 End: 03-20-[address] Yessi Mcqueen Work Phone: [facility] Work Phone: Start: 01-16-2023 Telephone encounter Shayna mcdonald MD Work Phone: [facility] [place] Comment on above: Appointment Start: 09-19-2022 End: 09-20-2022 ambulatory FRANKY HALKO DO Facility:[facility] Start: 09-13-2022 End: 09-14-2022 ambulatory FRANKY HALKO DO Facility:[facility] Start: 09-13-2022 End: 09-13-2022 Patient encounter procedure FRANKY HALKO DO [facility] Start: 09-02-2022 End: 09-03-2022 ambulatory FRANKY HALKO DO Facility:[facility] Start: 09-02-2022 End: 09-02-2022 Patient encounter procedure FRANKY HALKO DO [facility] Start: 08-26-2022 End: 08-26-2022 Emergency department patient visit LINDA MARTINEZ MD Facility:[facility] Start: 08-26-2022 End: 08-26-2022 Emergency department patient visit LINDA MARTINEZ MD [facility] Start: 08-22-2022 End: 08-23-2022 ambulatory FRANKY HALKO DO Facility:[facility] Start: 08-22-2022 End: 08-22-2022 Patient encounter procedure FRANKY HALKO DO [facility] Start: 08-18-2022 End: 08-18-2022 ambulatory [facility] Start: 08-18-2022 End: 08-18-2022 Office outpatient visit 15 minutes Shayna Andrade MD Work Phone: [facility] [place] Comment on above: Pre-diabetes (Primar y Dx); [...] minutes Shayna Andrade MD Work Phone: [facility] [place] Comment on above: Pre-diabetes (Primar y Dx); S/P bariatric surgery; Weight gain; BMI 32.0-32.9,adult; Class 1 obesity with serious comorbidity and body mass index (BMI) of 32.0 to 32.9 in adult, unspecified obesity type Start: 2022 End: 06-24-2022 ambulatory FRANKY HALKO DO Facility:[facility] Start: 2022 End: 2022 Patient encounter procedure FRANKY HALKO DO [facility] Start: 06-07-2022 End: 06-07-2022 [facility] Start: 05-10-2022 End: 05-10-2022 ambulatory [facility] Start: 04-26-2022 End: 04-27-2022 ambulatory FRANKY ANN-MARIEKO DO Facility:[facility] Start: 04-26-2022 End: 04-26-2022 Patient encounter procedure FRANKY HALKO DO [facility] Start: 04-15-2022 End: 04-16-2022 ambulatory FRANKY HALKO DO Facility:[facility] Start: 04-15-2022 End: 04-15-2022 Patient encounter procedure FRANKY JACOBSENKO DO [facility] Start: 03-03-2022 End: 03-03-2022 ambulatory ROBSON PUGH Facility:[facility] Start: 03-03-2022 End: 03-03-[address] ROBSON PUGH MD [facility] Start: 02-02-2022 End: 02-03-2022 ambulatory FRANKY PEARSON DO Facility:[facility] Start: 02-02-2022 End: 02-02-2022 Patient encounter procedure FRANKY JACOBSENKO DO [facility] Start: 12-02-2021 End: 12-03-2021 ambulatory FRANKY JACOBSENKO DO Facility:[facility] Start: 12-02-2021 End: 12-02-2021 Patient encounter procedure FRANKY JACOBSENKO DO [facility] Start: 07-04-2021 End: 07-04-2021 Patient encounter procedure FRANKY JACOBSENKO DO [facility] Start: 06-20-2021 End: 06-20-2021 Patient encounter procedure FRANKY JACOBSENKO DO [facility] Start: 05-22-2021 End: 05-22-2021 Emergency department patient visit RUY RIVERA MD [facility] Start: 02-25-2020 End: 02-25-2020 Subsequent hospital visit by physician Sekou Aparicio Work Phone: [facility] Start: 02-05-2020 End: 02-05-2020 Patient encounter procedure ADAM Melissa [facility] Start: 02-03-2020 Encounter for other preprocedural examination ADAM [facility] Start: 02-02-2020 End: 02-03-2020 Patient encounter procedure KATHERINE E, DIRECTOR OF CONSERVATION [facility] Start: 12-10-2019 End: 12-10-2019 Subsequent hospital visit by physician Sekou Aparicio Work Phone: [facility] Start: 10-20-2019 End: 10-20-2019 Subsequent hospital visit by physician Sekou Aparicio Work Phone: [facility] Start: 04-10-2019 End: 04-10-2019 Subsequent hospital visit by physician Rolan Jordan Work Phone: [facility] Procedures Date Procedure Procedure Detail Performing Clinician [...] Start: 07-26-2023 CT of chest without contrast DIRECTOR OF CONSERVATION-C Rolan Valdes DIRECTOR OF CONSERVATION Work Phone: Start: 07-24-2023 Dual energy X-ray absorptiometry DIRECTOR OF CONSERVATION-C Rolan Valdes DIRECTOR OF CONSERVATION Work Phone: Start: 07-24-2023 Ultrasonography of breast DIRECTOR OF CONSERVATION-C Rolan Valdes DIRECTOR OF CONSERVATION Work Phone: Start: 07-24-2023 Bilateral mammography N P-C Rolan Valdes DIRECTOR OF CONSERVATION Work Phone: Start: 06-01-2023 Plain X-ray of [...] or older (1 - 1-dose 60+ series) [facility] Start: 04-07-2030 DTaP/Tdap/Td Vaccines (2 - Td or Tdap) DTaP/Tdap/Td Vaccines (2 - Td or Tdap) [facility] Start: 06-08-2025 Lipid panel Lipid Panel [facility] Start: 03-05-2025 Patient encounter procedure Registered Clinical -Sleep Lab Work Phone: Start: 02-06-2025 Foot min 3 Views Foot min 3 Views [facility] Start: 02-06-2025 Knee 4 or More Views Knee 4 or More Views [facility] Start: 02-06-2025 XR Foot GE 3 Views [facility] Start: 02-06-2025 XR Knee GE 4 Views [facility] Start: 01-16-2025 Colonoscopy w/biopsy single/multiple COLONOSCOPY AND BIOPSY [facility] Start: 01-16-2025 Egd transoral biopsy single/multiple EGD BIOPSY SINGLE/MULTIPLE [facility] Start: 01-16-2025 Patient discharge [facility] Start: 02-09-2023 COVID-19 Vaccine ( season) COVID-19 Vaccine ( season) [facility] Start: 02-09-2023 Influenza vaccination Influenza Vaccine (#1) [facility] Start: 12-15-2022 End: 12-15-2022 Patient encounter procedure 12/15/2022 Office Visit Weight Management Shayna Andrade MD [address] [place], [place] [id number] [facility] Start: 10-19-2022 Zoster Vaccines (2 of 2) Zoster Vaccines (2 of 2) [facility] Start: 08-18-2022 End: 08-18-2022 Patient encounter procedure 08/18/2022 Office Visit Weight Management Shayna Andrade MD [address] [place], [place] [id number] [facility] Start: 02-09-2022 Influenza vaccination Influenza Vaccine (#1) [facility] Start: 2021 Zoster Vaccines (1 of 2) Zoster Vaccines (1 of 2) [facility] Start: 06-02-2021 COVID-19 Vaccine (4 - Booster for Moderna series) COVID-19 Vaccine (4 - Booster for Moderna series) [facility] Start: 02-10-2020 Influenza vaccination Flu vaccine (#1) [place] Start: 03-14-2019 A1C test (Diabetic or Prediabetic) A1C test (Diabetic or Prediabetic) [place] Start: 03-14-2019 HbA1c (Bld) [Mass fraction] A1C test (Diabetic or Prediabetic) [place] Start: 02-09-2019 Influenza vaccination Flu vaccine (#1) [place] Start: 2011 Screening for malignant neoplasm of breast Mammogram [facility] Start: 2001 Screening for malignant neoplasm of cervix [facility] Start: 1992 Cervical cancer screen Cervical cancer screen [place], [place] Start: 1992 Screening for malignant neoplasm of cervix [facility] Start: 1990 DTaP/Tdap/Td vaccine (1 - Tdap) DTaP/Tdap/Td vaccine (1 - Tdap) [place] Start: 1990 Hepatitis A Vaccines (1 of 2 - Risk 2-dose series) Hepatitis A Vaccines (1 of 2 - Risk 2-dose series) [facility] Start: 1990 Hepatitis B vaccine (1 of 3 - Risk 3-dose series) Hepatitis B vaccine (1 of 3 - Risk 3-dose series) [place] Start: 1989 Diabetes mellitus screening Diabetes Screening [facility] Start: 1989 Diabetic microalbuminuria test Diabetic microalbuminuria test [place] Start: 1989 Hepatitis C screening Hepatitis C Screening [facility] Start: 1986 HIV screen HIV screen [place] Start: 1986 HIV screening HIV screen [place] Start: 1983 Depression Screening Depression Screening [facility] Start: 1981 [object Object] Diabetic foot exam [place] Start: 1981 Diabetic foot examination Diabetic foot exam [place] Start: 1981 Diabetic retinal exam Diabetic retinal exam [place], [place] Start: 1981 Lipid panel Lipid screen [place], [place] Start: 1981 Lipid screen Lipid screen [place] Start: 1977 Pneumococcal 0-64 years Vaccine (1 of 1 - PPSV23) Pneumococcal 0-64 years Vaccine (1 of 1 - PPSV23) [place] Start: 1972 Hepatitis A Vaccines (1 of 2 - Risk 2-dose series) Hepatitis A Vaccines (1 of 2 - Risk 2-dose series) [facility] Start: 1972 MMR Vaccines (1 of 1 - Standard series) MMR Vaccines (1 of 1 - Standard series) [facility] Start: 1971 Hepatitis B Vaccines (1 of 3 - 3-dose series) Hepatitis B Vaccines (1 of 3 - 3-dose series) [facility] Start: 1971 HIV screening HIV Screening [facility] Start: 1971 Screening for malignant neoplasm of colon [facility] CT Chest WO [facility] Patient referral [facility] Work Phone: [facility] Immunizations Immunization Date Immunization Notes [facility] influenza, seasonal, injectable, preservative free Dr. Franky Pearson DO Work Phone: [facility] 04-16-2023 influenza, injectabl e, quadrivalent, preservative free Dr. Yessi Mcqueen Work Phone: [facility] 08-24-2022 zoster vaccine recombinant; Translations: [Shingrix] LINDA MARTINEZ MD [facility] 03-11-2022 influenza virus vaccine, unspecified formulation LINDA MARTINEZ MD [facility] Comment on above: Result Comment: at [facility] 04-07-2021 SARS-CoV-2 (COVID-19 ) mRNA-[address] ROBSON PUGH MD [facility] Comment on above: Result Comment: 2021: TPV18 07-02-2020 SARS-CoV-2 (COVID-19 ) mRNA-[address] ROBSON PUGH MD [facility] Comment on above: Result Comment: 2021: TPV18 06-07-2020 SARS-CoV-2 (COVID-19 ) mRNA-[address] ROBSON PUGH MD [facility] Comment on above: Result Comment: 2021: TPV18 04-07-2020 tetanus toxoid, redu camron diphtheria toxoid, and acellular pertussis vaccine, adsorbed; Translations: [Boostrix (Tdap)] RUY RIVERA MD [facility] 03-11-2020 influenza virus vaccine, unspecified formulation RUY RIVERA MD [facility] 03-10-2020 influenza virus vaccine, unspecified formulation DR ROBSON PUGH MD [facility] 03-30-2014 influenza virus vaccine, unspecified formulation DR ROBSON PUGH MD [facility] 05-03-2012 influenza virus vaccine, unspecified formulation DR ROBSON PUGH MD [facility] Payers Date Payer Category Payer Self-pay 2024 Unknown [id number] 2021 Unknown [employer] [id number] 2021-Present [place] [id number] Commercial [id number] [id number] 2017 Unknown [employer] [id number] 2017-Present [phone] [place] [id number] [id number].3 .[id number] 2017 Unknown [employer] [id number] 2017-Present [phone] [place] [id number] 1.2.840.746050.1.13.239.2.7.3 .830334.315 2015 Unknown [id number] 1971 Unknown [id number] 2.16.840.1.280722.3.579.2.598 1971 Unknown [id number] 2.16.840.1.135456.3.579.2.598 1971 Unknown [id number] 2.16.840.1.568455.3.579.2.598 1971 Unknown [id number] 2.16.840.1.447098.3.579.2.627 1971 Unknown [id number] 2.16.840.1.044458.3.579.2.627 1971 Unknown [id number] 2.16.840.1.028008.3.579.2.627 1971 Unknown [id number] 2.16.840.1.241652.3.579.2. 1971 Unknown [id number] 2.16.840.1.315621.3.579.2.627 1971 Unknown [id number] 2.16.840.1.304536.3.579.2. 1971 Unknown [id number] 2.16.840.1.983403.3.579.2.627 1971 Unknown [id number] 2.16.840.1.041091.3.579.2. 1971 Unknown [id number] 2.16.840.1.488940.3.579.2.7 1971 Unknown [id number] 2.16.840.1.547078.3.579.2. 1971 Unknown [id number] 2.16.840.1.780044.3.579.2.627 1959 Unknown [id number] Unknown [id number] 2.16.840.1.944088.3.579.2.598 Unknown [facility] [id number] Unknown [id number] 2.16840.1.398178.3.579.2.462 Unknown [id number] 2.16.840.1.119863.3.579.2.462 Unknown [id number] 2.16.840.1.988037.3.579.2.462 Unknown [id number] 2.16.840.1.851369.3.579.2.462 Unknown [id number] 2.16.840.1.032998.3.579.2.462 Unknown [id number] 2.16.840.1.339435.3.579.2.462 Unknown [id number] 2.16.840.1.721568.3.579.2.462 Unknown [id number] 2..840.1.878886.3.579.2.462 Unknown [id number] 2.840.1.471598.3.579.2.462 Unknown [id number] 2.840.1.962303.3.579.2.462 Unknown [id number] 2.840.1.033828.3.579.2.462 Unknown [id number] 2..840.1.180729.3.579.2.462 Unknown [id number] 2..840.1.655633.3.579.2.462 Unknown [id number] 2.16.840.1.440864.3.579.2.462 Unknown [id number] 2..840.1.831269.3.579.2.462 Unknown [id number] 2.16.840.1.983914.3.579.2.462 Unknown [id number] 2.16.840.1.243767.3.579.2.462 Unknown [id number] 2.16.840.1.237262.3.579.2.462 Unknown [id number] 2.16.840.1.575333.3.579.2.462 Unknown [id number] 2..840.1.695838.3.579.2.462 Unknown [id number] 2.16.840.1.795940.3.579.2.462 Unknown [id number] 2.16.840.1.248357.3.579.2.462 Unknown [id number] 2.16.840.1.320366.3.579.2.462 Unknown [id number] 2.16.840.1.833902.3.579.2.462 Unknown [id number] 2.16.840.1.059308.3.579.2.462 Unknown [id number] 2.16.840.1.496193.3.579.2.462 Unknown [id number] 2.16.840.1.777639.3.579.2.462 Unknown [id number] 2.16.840.1.579364.3.579.2.462 Unknown [id number] 2.16.840.1.842149.3.579.2.462 Unknown [id number] 2.16.840.1.589106.3.579.2.462 Unknown [id number] 2.16.840.1.615269.3.579.2.462 Unknown [id number] 2.16.840.1.880947.3.579.2.462 Social History Date Type Detail Facility Start: 12-10-2019 End: 03-05-2025 Tobacco smoking status NHIS [place] sm[place] Start: 12-10-2019 End: 07-07-2022 [facility] Start: 04-01-2018 Alcohol Comment less than once a mon th [place] Start: 1971 Sex Assigned At Not on file M [place] Start: 04-10-2019 End: 02-25-2020 Tobacco use and exposure Never used [place] Start: 04-10-2019 End: 07-07-2022 Alcohol intake Not Currently [facility] Start: 1970 Sex Assigned At Female A [facility] Start: 06-27-2022 End: 08-18-2022 Exposure to SARS-CoV-2 (event) Not sure [facility] Start: 07-07-2022 History of Social function [facility] Medical Equipment Procedure Code Equipment Code Equipment Origin al Text Equipment Identifier Dates See Instructions , dx E16.2; check BGT due to hypoglycemic symptoms, up to once per day; dispense 100 glucose test strips, # 100 EA, 0 Refill(s), Pharmacy: [facility], 164, cm, 04/04/22 8:05:00 EDT, Height, 86.1 Start: 04-04-2022 See Instructions , dx E16.2; check BGT due to hypoglycemic symptoms, up to once per day; dispense 100 lancets., # 100 EA, 0 Refill(s), Pharmacy: [facility], 164, cm, 04/04/22 8:05:00 EDT, Height, 86.1 Start: 04-04-2022 See Instructions , dx E16.2; check BGT due to hypoglycemic symptoms, up to once per day; dispense 100 glucose test strips, # 100 EA, 0 Refill(s), Pharmacy: [facility], 164, cm, 04/04/22 8:05:00 EDT, Height, 86.1 Start: 04-04-2022 See Instructions , dx E16.2; check BGT due to hypoglycemic symptoms, up to once per day; dispense 100 lancets., # 100 EA, 0 Refill(s), Pharmacy: [facility], 164, cm, 04/04/22 8:05:00 EDT, Height, 86.1 Start: 04-04-2022 See Instructions , dx E16.2; check BGT due to hypoglycemic symptoms, up to once per day; dispense 100 glucose test strips, # 100 EA, 0 Refill(s), Pharmacy: [facility], 164, cm, 04/04/22 8:05:00 EDT, Height, 86.1 Start: 04-04-2022 See Instructions , dx E16.2; check BGT due to hypoglycemic symptoms, up to once per day; dispense 100 lancets., # 100 EA, 0 Refill(s), Pharmacy: [facility], 164, cm, 04/04/22 8:05:00 EDT, Height, 86.1 Start: 04-04-2022 See Instructions , dx E16.2; check BGT due to hypoglycemic symptoms, up to once per day; dispense 100 glucose test strips, # 100 EA, 0 Refill(s), Pharmacy: [facility], 164, cm, 04/04/22 8:05:00 EDT, Height, 86.1 Start: 04-04-2022 See Instructions , dx E16.2; check BGT due to hypoglycemic symptoms, up to once per day; dispense 100 lancets., # 100 EA, 0 Refill(s), Pharmacy: [facility], 164, cm, 04/04/22 8:05:00 EDT, Height, 86.1 Start: 04-04-2022 See Instructions , dx E16.2; check BGT due to hypoglycemic symptoms, up to once per day; dispense 100 glucose test strips, # 100 EA, 0 Refill(s), Pharmacy: [facility], 164, cm, 04/04/22 8:05:00 EDT, Height, 86.1 Start: 04-04-2022 See Instructions , dx E16.2; check BGT due to hypoglycemic symptoms, up to once per day; dispense 100 lancets., # 100 EA, 0 Refill(s), Pharmacy: [facility], 164, cm, 04/04/22 8:05:00 EDT, Height, 86.1 Start: 04-04-2022 See Instructions , dx E16.2; check BGT due to hypoglycemic symptoms, up to once per day; dispense 100 glucose test strips, # 100 EA, 0 Refill(s), Pharmacy: [facility], 164, cm, 04/04/22 8:05:00 EDT, Height, 86.1 Start: 04-04-2022 See Instructions , dx E16.2; check BGT due to hypoglycemic symptoms, up to once per day; dispense 100 lancets., # 100 EA, 0 Refill(s), Pharmacy: [facility], 164, cm, 04/04/22 8:05:00 EDT, Height, 86.1 Start: 04-04-2022 See Instructions , dx E16.2; check BGT due to hypoglycemic symptoms, up to once per day; dispense 100 glucose test strips, # 100 EA, 0 Refill(s), Pharmacy: [facility], 164, cm, 04/04/22 8:05:00 EDT, Height, 86.1 Start: 04-04-2022 See Instructions , dx E16.2; check BGT due to hypoglycemic symptoms, up to once per day; dispense 100 lancets., # 100 EA, 0 Refill(s), Pharmacy: [facility], 164, cm, 04/04/22 8:05:00 EDT, Height, 86.1 Start: 04-04-2022 Goals Date Patient Goal Desired Activity /State Functional Status Date Assessment Result Facility 08-26-2022 Functional Status Independent [facility] 03-03-2022 Functional Status Maintained, Less than 8 hours [facility] Mental Status Date Assessment Result Facility 01-16-2025 Cognitive function Voice/Name [facility] Work Phone: Clinical Notes 05-22-2021 to 03-05-2025 Note Date & Type Note Facility 03-05-2025 Progress note [facility] 01-16-2025 Consult note [facility] 01-16-2025 Procedure note [facility] 01-16-2025 Procedure note [facility] 01-16-2025 Procedure note [facility] 01-16-2025 Procedure note [facility] 01-16-2025 History and physi bethanie note [facility] 01-16-2025 Note [facility] Medical Records Department [address] [place] [address] History Physical Exam 01/16/25 0638 MR#: [id number] Acct: [id number] Name: AMANDA GRUBBS Rep #: [id number] : 1970 54 From: [place] DO PCP: Dr. Franky Pearson, DO [place] [place]: [place] [address] HPI - General General Date of Admission: 01/16/25 Date of Service: 01/16/25 Chief Complaint: abdominal pain, bloating, N/V, bleeding [facility] Narrative AMANDA GRUBBS, is a 54 F [...] when she tries to have a BM, "like razor blades" BRBPR - this past Sunday, she had [...] shakes very little protein and fiber intake [facility] Medical History Kidney stones Wears glasses [...] #90 caps 11/26/24 Rx release peg 3350-sod sulf,gmxny-tce-dtv See Rx Instructions PO .COMPLEX #2 11/26/24 [...] dysphagia, early sat (more content not included)... [facility] 01-16-2025 Consult note [facility] 11-26-2024 Evaluation note Diagnosis Onset [...] 5:17am Rectal pain acute January 16 5:17am [facility] Work Phone: 1(837) 859-842306-18-2025 Evaluation note* Diagnosis Onset Date Resolution Status [...] tract infection) acute February 02, 2025 1:33pm [facility] [employer] [facility] Work Phone: 1(782) 929-730906-18-2025 Evaluation note* Diagnosis Onset Date Resolution Status [...] dysfunction of cervical region acute J 2024 9:09am Segmental and somatic dysfunction of [...] Rectal bleeding acute March 05, 2025 8:27am [facility] Work Phone: 1(631) 218-404204-17-2025 Evaluation note* Diagnosis Onset Date Resolution Status Admit Date Segmental and somatic dysfunction of cervical region acute A l 2024 10:18am Segmental and somatic dysfunction of lumbar region acute Sep 10:18am Segmental and somatic dysfunction of pelvic region acute Sep 10:18am Segmental and somatic dysfunction of thoracic region acute A 2024 10:18am Bloating acute November 26 9:28am [...] of thoracic region acute J 2024 11:56am [facility] Work Phone: 1(831) 501-716104-17-2025 Evaluation note* Diagnosis Onset Date Resolution Status [...] thoracic region acute J darnell 2024 9:09am [facility] Work Phone: 1(191) 155-396904-17-2025 Evaluation note* Diagnosis Onset Date Resolution Status [...] Rectal pain acute January 16, 025 5:17am [facility] Work Phone: 1(241) 694-514003-05-2025 Evaluation note* Diagnosis Onset Date Resolution Status Admit Date Bacterial sinusitis acute August 13, 2024 8:27am Lower respiratory tract infection acute August 13, 2024 8:27am Solitary pulmonary nodule acute August 19, 2024 9:02am Segmental and somatic dysfunction of cervical region acute A 2024 10:18am Segmental and somatic dysfunction of [...] H/O gastric bypass chronic November 092024 9:28am [facility] Work Phone: 1(984) 569-533408-08-2023 Telephone encounter Note* Telephone Encounter - Liya Walker - 01/16/2023 4:54 PM EDT Name of Caller: Amanda Contact Reason for Appointment: Pt needs to cancel upcoming appt and the pt sill call back to resx. Please advise Office Name: [facility] Medication Refills need, if any: NA Medication Name: NA [id number] Miscellaneous Notes* Telephone Encounter - Liya Walker - 01/16/2023 4:54 PM EDT Name of Caller: Amanda Contact Reason for Appointment: Pt needs to cancel upcoming appt and the pt sill call back to resx. Please advise Office Name: [facility] Medication Refills need, if any: NA Medication Name: NA documented in this [facility]03-18-2023 Hospital Discharge instructions Patient Education 08/26/2022 [...] Swelling, pain or redness in one leg [phone] [employer]. [address] [place] [address]. All rights reserved. This information is not intended as a substitute for professional medical care. Always follow yourhealthcare professional's instructions. Follow Up Care 08/26/2022 16:01:09 With:FRANKY PEARSON Address: [address] [place] [address] [phone] Business (1) When:2-4 days Comments:Schedule appointment as soon as possibleReturn to ED if symptoms worsenClear liquid diet till 12noon and if symptoms do not recur increase as tolerated.Follow up for outpatient stress testing.Return for symptoms as described [facility] 03-18-2023 Note Discharge Instructions Thank you for allowing [facility] to assist you with your healthcare needs. [...] testing. Return for symptoms as described Where: [address] [place] [id number] [phone] Business (1) Allergies NKA Medications Please ask [...] Swelling, pain or redness in one leg [phone] [employer]. [address] [place] [address]. All rights reserved. This information is not intended as a substitute for professional medical care. Always follow yourhealthcare professional's instructions. Additional Information VACCINATE! IT SAVES LIVES! Members of the community who have not yet received the COVID-19 vaccine and would like to receive it can visit one of [facility] vaccine clinics. There are many vaccine clinic locations within the [facility]. For locations and available times, please visit www.[email or web address].[place].gov/. It is important to note that some COVID mobile vaccine clinics are held outdoors and may be canceled in rainy or stormy conditions. To learn more about pediatric vaccinations (ages 5-11), we invite you to visit the [facility] webpage. https://www.[email or web address].org/pages/0683-Zbzlh-Clnxlklsoug-Ykeajpxleq-Ievfe-Ilx stions.htmlTo learn more about the COVID-19 vaccine, we invite you to visit the CDC website for a list of frequently asked questions. https://www.cdc.gov/coronavirus/2019-ncov/vaccines/faq.html [facility] Patient Portal Access Instructions: Stay connected with your healthcare team and access your personal medical information anytime with the [facility] Patient Portal. If you would like a full copy of your medical records please contact the [facility] Medical Records Department Sunday through Sunday between 8a.m. and 4:30p.m. Please follow the directions below to access the portal: 1.Access the email account you provided upon registration to the hospital.2.Look for an invitation email from [facility].3.Open the email and access the invitation link: Accept [facility]itation to [facility]4.Fill in the required mckenzie to create your [...] you will allow to register on the [facility] [employer] Patient Portal for access to your information. You can also access the [facility] [employer] Patient Portal on the [employer] ramírez. Simply click on "Health Records" under "HealthData" and then click on the [facility] logo. HOW TO SAFELY DISPOSE OF PRESCRIPTION [...] Call your local pharmacy or go to http://[email or web address].[employer]/8Q9Wy9f to find one close to you.3.Make use of household items: Use cat litter or old coffee grounds to dispose medications if other options arenot available. Mix your drugs with these household products, seal them in an airtight container andthrow it into the garbage. Call [facility]: [phone] to be sure your drugs can be [...] that I should contact my d octor. 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 Signature: Date/Time: Relationship to Patient: Witness Name/Signature: Date/Time: [facility]03-18-2023 Note ORIGINAL EXAMINATION: CT OF [...] Date: 08/26/2022 6:34:22 PM Ordering Provider: [facility]03-18-2023 Note ORIGINAL EXAMINATION: CT OF THE [...] Sign Date: 08/26/2022 6:34:22 PM Ordering Provider: [facility]03-18-2023 Note ORIGINAL EXAMINATION: ONE XRAY VIEW OF [...] Date: 08/26/2022 5:14:04 PM Ordering Provider: [facility]03-18-2023 Note ORIGINAL EXAMINATION: ONE XRAY VIEW OF [...] Sign Date: 08/26/2022 5:14:04 PM Ordering Provider: [facility]03-10-2023 [facility] POST-OP WEIGHT LOSS MANAGEMENT PROGRESS NOTE FOLLOW UP HPI, PHYSICAL EXAMINATION & PLAN HPI: Patient here today for follow up for weight loss management following surgical weight loss Weight trend since last visit: lost 3 lbs over 1 m stable This patient's excess weight is causing the following co-morbid conditions at this time: Other preDM Plan Physical Examination: Ht 5' 3.25" (1.607 m) Wt 180 lb 9.6 oz [...] was performed.Clinical documentation is updated and completed. [facility] [id number] History of Present illness Narrative* Mary Mishra MA - 08/18/2022 2:10 PM EST [facility] ROOMING NOTE POST WEIGHT LOSS SURGERY FOLLOW UP Patient: Amanda Grubbs Service Date: 08/18/2022 Patient is 5 year(s) s/p RnY Gastric Bypass Today's Metrics: Post-Surgical Weight Loss Date: 08/18/22 Height: 5' 3.25" (160.7 cm) Weight: 180 lb 9.6 oz (81.9 kg) BMI: 31.74 Weight Change: -3.2 lbs Total Weight Change: <No Pre-Surgical Weight on File> % EBWL: <UNK> Post-op Weight Metrics: Post-Surgical Weight Loss Date: 08/18/22 Height: 5' 3.25" (160.7 cm) Weight: 180 lb 9.6 oz (81.9 kg) BMI: 31.74 Weight Change: -3.2 lbs Total Weight Change: <No Pre-Surgical Weight on File> % EBWL: <UNK> (From Surgical Weight Loss Tracker) Patient has the following questions: None Reported Pain: Patient rates pain on scale 0-10 as: 0 Exercise Compliance: Exercising: yes If yes: 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 documented in this [facility]01-27-2023 [facility] POST-OP WEIGHT LOSS MANAGEMENT PROGRESS [...] 122/82 Pulse 84 Resp 14 Ht 5' 3.25" (1.607 m) Wt 183 lb 12.8 oz [...] preDM 4. Weight maintenance after bariatric surgery [facility] 07-07-2022 History of Present illness Narrative* Manuel Preciado MA - 07/07/2022 10:30 AM EST [facility] ROOMING NOTE POST WEIGHT LOSS SURGERY FOLLOW UP Patient: Amanda L Romie Service Date: 07/07/2022 Patient is 5 year(s) s/p RnY Gastric Bypass Today's Metrics: Post-Surgical Weight Loss Date: 07/07/22 Height: 5' 3.25" (160.7 cm) Weight: 183 lb 12.8 oz (83.4 kg) BMI: 32.30 Weight Change: -4.2 lbs Total Weight Change: <No Pre-Surgical Weight on File> % EBWL: <UNK> Comments: pop d/e fu Post-op Weight Metrics: Post-Surgical Weight Loss Date: 07/07/22 Height: 5' 3.25" (160.7 cm) Weight: 183 lb 12.8 oz [...] 122/82 Pulse 84 Resp 14 Ht 5' 3.25" (1.607 m) Wt 183 lb 12.8 oz [...] after bariatric surgery discussed documented in this [facility]01-13-2023 Note ORIGINAL HISTORY: Lung nodule COMPARISON: [...] Sign Date: 2022 12:43:51 PM Ordering Provider: [facility]01-13-2023 Note ORIGINAL HISTORY: Lung nodule COMPARISON: [...] Sign Date: 2022 12:43:51 PM Ordering Provider: [facility]12-28-2022 Note [facility] POST-OP WEIGHT LOSS [...] 131/92 Pulse 75 Resp 14 Ht 5' 3.25" (1.607 m) Wt 188 lb (85.3 kg) [...] was performed.Clinical documentation is updated and completed. [facility] [id number] Evaluation + Plan noteExtracted from: Title:Clinical Document Author:ROBSON PUGH Date:03/03/22 [facility] ADMISSION HISTORY AN D PHYSICIAL CHIEF COMPLAINT: HISTORY OF PRESENT ILLNESS: REVIEW OF SYSTEMS: ACTIVE PROBLEMS: (24) Abnormal mammogram (684516513) Abnormal screening computed tomography (CT) of lung (5140106262) Anxiety (82878130) Breast cancer screening (266411693) Cervical cancer screening (5349460514) Colon cancer screening (324518168) Encounter for well adult exam with abnormal findings (644633149) GERD (gastroesophageal reflux disease) (720792232) Hot flashes due to menopause (208646732) Immunization due (025114405) Insomnia (920138951) 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) Nephrolithiasis (462543259) Obesity (4245631269) Post-menopausal (222099127) Pre-diabetes (8910238588) Preoperative evaluation of a medical condition to rule out surgical contraindications (TAR required) (247751230) Restless legs (73041598) Right arm pain (499097462) S/P gastric bypass (1442982231) Screening for cardiovascular condition (949839813) Somatic dysfunction of upper extremity (9200871864) Tobacco non-user (314429719) Viral syndrome (42727011) MEDICATIONS: Active Inpt Meds: None Active PRN Meds: None One Time Meds: None Active IV Meds: Lactated Ringers Infusion 1,000 mL (LR 1,000 mL) Start: 03/03/22 7:52:00 EDT, Rate: 50 mL/hr, 03/03/22 7:52:00 EDT ALLERGIES: (1) NKA FAMILY HISTORY: SOCIAL HISTORY: PHYSICAL EXAM: VITALS: OvyuajKsebACBpirtBIGsP7ZSD7FagxUf(kg) 03/03 07:5536.7126/34785857ZX23/23 79.5 24 Hr Tmax: 36.7 at 03/03 [...] Date:04/04/2022 08:00:00 AM Scheduled Provider:FRANKY PEARSON DO Location:[facility] Appointment Type: OV Appointment Date:05/30/2022 09:00:00 AM Scheduled Provider:FRANKY PEARSON DO Location:[facility] Appointment Type: OV Future Scheduled Tests [...] 02/22/22 * Complete Metabolic Panel 08/22/21 * [facility] [place] (Blood Specimens) 11/22/21 Radiology* US Breast Right Limited 08/08/22 * CT Thorax w/o Contrast 06/07/22 * MA Mammogram Diagnostic Bilateral w/o Juma 01/01/22 [facility] 09-23-2022 Hospital Discharge instructions Patient [...] before eating solid foods. General instructions Take dive-cks-xcfyvum and prescription medicines only as told by [...] 09/17/2016 Document Revised: 08/26/2018 Document Reviewed: 09/17/2016 [employer] Patient Education 2020 [email or web address]. 03/03/2022 09:18:09 Colonoscopy, Adult, Care After Colonoscopy, [...] a slower pace than normal. ?Eat soft, cwdb-cq-edadix foods. Take dynw-wxt-yxumpbt or prescription medicines only as told by [...] 01/09/2005 Document Revised: 03/20/2018 Document Reviewed: 08/08/2016 [employer] Patient Education 2020 [email or web address]. Follow Up Care 01/09/2022 13:05:28 With:ROBSON PUGH MD Address: [address] [phone] When: Unknown Comments:Follow-up as needed [facility] 09-23-2022 Summary of episode note Discharge Instructions Thank you for allowing [facility] to assist you with your healthcare needs. The following is importantdischarge information regarding your hospital visit. Your Care Team FRANKY PEARSON DO What to do next Scheduled Follow-Up Appointments Appointment Type When With Where Contact InformationPC OV 04/04/2022 08:00 AM FRANKY APPIAH DO [address] [address] PC OV 05/30/2022 09:00 AM EST FRANKY PEARSON DO [address] [address] Follow Up Appointments Follow Up with ROBSON PUGH MD When Why: Follow-up as needed Where: [address] [place] [phone] Allergies NKA Medications Please ask your primary [...] before eating solid foods. General instructions Take vtcv-oqp-zazmoax and prescription medicines only as told by [...] 09/17/2016 Document Revised: 08/26/2018 Document Reviewed: 09/17/2016 [employer] Patient Education 2020 [email or web address]. Colonoscopy, Adult, Care After This sheet gives [...] slower pace than normal. ? Eat soft, trhi-yf-teozma foods. Take eijd-nmx-ydfpqfp or prescription medicines only as told by [...] 01/09/2005 Document Revised: 03/20/2018 Document Reviewed: 08/08/2016 [employer] (SAM) Patient Education 2020 [employer] Additional Information VACCINATE! IT SAVES LIVES! Members of the community who have not yet received the COVID-19 vaccine and would like to receive it can visit one of [facility] vaccine clinics. There are many vaccine clinic locations within the [facility]. For locations and available times, please visit [email or web address] It is important to note that some COVID mobile vaccine clinics are held outdoors and may be canceled in rainy or stormy conditions. To learn more about pediatric vaccinations (ages 5-11), we invite you to visit the [facility] webpage. https://[email or web address]/pages/9068-Jfcqs-Kcpiwatbrpb-Vtglrzrrww-Dqmui-Kav stions.htmlTo learn more about the COVID-19 vaccine, we invite you to visit the [facility] website for a list of frequently asked questions. [email or web address]-inh-[email or web address]/duevb-Wpcrwjs-Huqzbiwzgn _Asked-Questions.pdf [facility] [employer] Patient Portal Access Instructions: Stay connected with your healthcare team and access your personal medical information anytime with the [facility] Patient Portal.If you would like a full copy of your medical records, please contact the [facility] Medical Records Department, Sunday through Sunday between 8a.m. and 4:30p.m. Please follow the directions below to access the portal: 1.Access the email account you provided upon registration to the [facility].2.Look for an invitation email from [facility].3.Open the email and access the invitation link: Accept Invitation to [facility] One[facility]4.Fill in the required mckenzie to create your account. Sign into [email or web address] with your username and password that you [...] you will allow to register on the [employer] Patient Portal for access to your information. You can also access the [employer] Patient Portal on the [place] [employer]. Simply click on "Health Records" under "[employer]" and then click on the [employer] logo. HOW TO SAFELY DISPOSE OF PRESCRIPTION [...] Call your local pharmacy or go to [email or web address] to find one close to you.3.Make use of household items: Use cat litter or old coffee grounds to dispose medications if other options arenot available. Mix your drugs with these household products, seal them in an airtight container andthrow it into the garbage. Call [facility]: [phone] to be sure your drugs can be [...] that I should contact my d octor. 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 Signature: Date/Time: Relationship to Patient: Witness Name/Signature: Date/Time: [facility]09-23-2022 Anesthesiology Consult note Patient: AMANDA GRUBBS Age: 51 years Sex: Female : 1970 Associated Diagnoses: None Author: SANTIAGO GUTIERREZ APRN-ELECTRONIC COMMUNICATIONS TECHNICIAN Assessment Postanesthesia assessment Vitals: Vital signs from [...] by SANTIAGO GUTIERREZ on 03/03/2022 09:12 AM [facility]09-23-2022 Anesthesiology Consult note Patient: AMANDA [...] Problem list: Medical Anxiety / SNOMED CT 95393785 / Confirmed Cervical cancer screening / SNOMED CT 4062863805 / Confirmed Abnormal screening computed tomography (CT) of lung / SNOMED CT 5960398790 / Confirmed GERD (gastroesophageal reflux disease) / SNOMED CT 178302461 / Confirmed S/P gastric bypass / SNOMED CT 5819342386 / Confirmed Immunization due / SNOMED CT 504007519 / Confirmed Insomnia / SNOMED CT 246222481 / Confirmed Nephrolithiasis / SNOMED CT 024385753 / Confirmed Major depression in remission / SNOMED CT 38431235 / Confirmed Abnormal mammogram / SNOMED CT 366858752 / Confirmed Hot flashes due to menopause / SNOMED CT 732149805 / Confirmed Obesity / SNOMED CT 1219279453 / Confirmed Right arm pain / SNOMED CT 710558046 / Confirmed Preoperative evaluation of a medical condition to rule out surgical contraindications (TAR required) / SNOMED CT 672998635 / Confirmed Screening for cardiovascular condition / SNOMED CT 025145775 / Confirmed Breast cancer screening / SNOMED CT 273277555 / Confirmed Colon cancer screening / SNOMED CT 744414731 / Confirmed Encounter for well adult exam with abnormal findings / SNOMED CT 837678770 / Confirmed Post-menopausal / SNOMED CT 922652723 / Confirmed Pre-diabetes / SNOMED CT 5745185589 / Confirmed Restless legs / SNOMED CT 96193994 / Confirmed Somatic dysfunction of upper extremity / SNOMED CT 1281971933 / Confirmed Tobacco non-user / SNOMED CT 511576588 / Confirmed Viral syndrome / SNOMED CT 12137805 / Confirmed, Active Problems (24) Abnormal mammogram [...] with small intestine reconstruction to limit absorption (88895). Endometrial ablation (445820256). Diagnostic laparoscopy of female pelvis (375371376). Hysterectomy (149923440). section (59089750). Comments: 03/03/2022 7:52 EDT - Rhonda Swenson RN x2 Cholecystectomy (28227195). Colonoscopy (485866509). Comments: 03/03/2022 7:53 EDT - Rhonda Swenson RN x2 Cystourethroscopy, with ureteroscopy and/or pyeloscopy; with removal or manipulation of calculus (ureteral catheterization is included) (85960). Entire finger (227702712). Comments: 03/03/2022 7:53 EDT - Rhonda Swenson RN right pinky Social History Social & Psychosocial Habits Alcohol 06/27/2019 Use: Current Frequency: 1-2 times per month Substance Abuse 06/27/2019 Use: Never Tobacco 06/27/2019 Tobacco Use: Never (less than 100 in l Home/Environment 03/03/2022 Domestic Concerns None Living situation: Home/Independent Primary Manufacturing Director: Self Current Home Treatments None Special Services [...] Vital Signs(last 24 hrs) Last Charted Temp Cxlxhuei03.7 DegC (MAR 03 07:55) Heart Rate Rerklqvys25 bpm (MAR 03 09:00) Resp Rate 19 br/min (MAR 03 09:00) PEU337 mmHg (MAR 03 08:55) DBP87 mmHg (MAR 03 08:55) BMI30.07 (MAR 03 07:55) Measurements from flowsheet : Measurements 03/03/2022 7:55 EDT Height 162.6 cm Admission Weight 79.5 kg Weight Method Stated [place] Body Weight 54.74 kg BSA Admission 1.85 [...] Surgeon SN - CAt - Role Performed Elevator Constructor Helper 1 SN - CAt - Role Performed ELECTRONIC COMMUNICATIONS TECHNICIAN SN - CAt - Role Performed Engineer System Administrator 03/03/2022 8:53 EDT [place] History and Physical 03/03/2022 8:09 EDT Continuous [...] EDT Designated Person #1 We May Share ENEIDA Grubbs [phone] Designated Person #1 Relationship Spouse Designated Person #2 We May Share ENEIDA Grubbs [phone] Designated Person #2 Relationship Daughter Privacy Restrictions Requested None Height 162.6 cm Admission Weight 79.5 kg Weight Method Stated [place] Body Weight 54.74 kg BSA Admission 1.85 [...] Method Explanation, Printed materials Preferred Written Language Egyptian Preferred Spoken Language Egyptian Information Given by Patient Patient's Current Physicians [...] Note-Nursing Procedure/Therapy Intake . Assessment and Plan [place] Society of Anesthesiologists (ASA) physical status classification: Class III. Anesthetic Preoperative Plan Anesthetic technique: MAC. Informed consent: signed by patient. Digitally Signed by SANTIAGO GUTIERREZ on 03/03/2022 09:08 AM [facility]09-23-2022 Note HIMROD ADMISSION HISTORY AND PHYSICIAL CHIEF COMPLAINT: HISTORY OF PRESENT ILLNESS: REVIEW OF SYSTEMS: ACTIVE PROBLEMS: (24) Abnormal mammogram (315812707) Abnormal screening computed tomography (CT) of lung (3640248983) Anxiety (57021651) Breast cancer screening (846170596) Cervical cancer screening (7814791645) Colon cancer screening (120941111) Encounter for well adult exam with abnormal findings (794429614) GERD (gastroesophageal reflux disease) (102537029) Hot flashes due to menopause (373059503) Immunization due (539370084) Insomnia (214004950) 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) Nephrolithiasis (184700116) Obesity (3814212817) Post-menopausal (208034667) Pre-diabetes (9943256958) Preoperative evaluation of a medical condition to rule out surgical contraindications (TAR required) (043041464) Restless legs (71981162) Right arm pain (463467365) S/P gastric bypass (1524612131) Screening for cardiovascular condition (486157106) Somatic dysfunction of upper extremity (3369329740) Tobacco non-user (910496746) Viral syndrome (46371727) MEDICATIONS: Active Inpt Meds: None Active PRN Meds: None One Time Meds: None Active IV Meds: Lactated Ringers Infusion 1,000 mL (LR 1,000 mL) Start: 03/03/22 7:52:00 EDT, Rate: 50 mL/hr, 03/03/22 7:52:00 EDT ALLERGIES: (1) NKA FAMILY HISTORY: SOCIAL HISTORY: PHYSICAL EXAM: VITALS: FluyyhQuovXYNuipnISLjY7RFP0QlndDg(kg) 03/03 07:5536.7126/31720386JH65/23 79.5 24 Hr Tmax: 36.7 at 03/03 [...] ROBSON PUGH MD on 03/03/2022 08:58 AM [facility]03-14-2022 Evaluation + Plan note Future [...] 02/22/22 * Complete Metabolic Panel 08/22/21 * [facility] [place] (Blood Specimens) 11/22/21 Radiology* [place] Mammogram Diagnostic Bilateral w/o Juma 01/01/22 * US Breast Right Complete 01/01/22 [facility] 03-14-2022 Evaluation + Plan note [...] 02/22/22 * Complete Metabolic Panel 08/22/21 * [facility] [place] (Blood Specimens) 11/22/21 Radiology* CT Thorax w/o Contrast 06/07/22 * [place] Mammogram Diagnostic Bilateral w/o Juma 01/01/22 [facility] 12-12-2021 Hospital Discharge instructions Patient [...] If needed, more treatment may be started. [phone] [employer]. [address] [place] [address], [place] [address]. All rights reserved. This information is not [...] neck Chest pain not caused by coughing 1398-9874 [employer]. [address] [place] [address], [place] [address]. All rights reserved. This information is not [...] foods again, start with small amounts of qrgu-gj-efgxxx, low- fat foods. These include apple sauce, [...] increase stomach acid. Don't use aspirin or eyms-orq-grprksv pain and fever medicines, if possible. This includes nonsteroidal anti-inflammatory drugs (NSAIDs). Lose excess weight. Finish eating at least 2 hours before you go to bed or lie down. Raise the head of your bed. 7777-6845 [employer]. [address] [place] [address], [place] [address]. All rights reserved. This information is not intended as a substitute for professional medical care. Always follow yourhealthcare professional's instructions. Follow Up Care 05/22/2021 04:01:53 With:FRANKY PEARSON DO Address: [phone] When:2-4 days [facility] Consult note Author Basilio [facility] Note Date/Time January 16, 2025 6:3 6am [facility] Medical Records Department [address] [place] [address] Pre-Anesthesia Evaluation 01/16/25 0632 MR#: [id number] Acct: [id number] Name: AMANDA GRUBBS Rep #:[id number] : 1970 54 From: Basilio Skinner MD PCP: Dr. 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 Hx Hospitalization No 01/13/25 13:38 Any Problems [...] take am of surgery PONV PONV - oil change technician: PONV - oil change technician Female No 01/13/25 13:38 HX of Motion [...] 01/16/25 05:54 Respiratory Assessment Respiratory Assessment - oil change technician: Respiratory Tract Infection Hx - oil change technician Hx Respiratory Tract Infection No 01/13/25 13:38 STOP Sleep Apnea STOP Sleep Apnea - oil change technician: STOP Sleep Apnea - oil change technician Hx Hypertension No 01/13/25 13:38 Hx Sleep [...] Tobacco Use History Tobacco Use History - oil change technician: Tobacco Use History - oil change technician Tobacco Use Smoking Status Never smoker 01/13/25 13:38 Hx Tobacco Use No 01/13/25 13:38 Years Smoking Packs Smoked per Day Smoking Cessation Date was within the last 15 years Hx Smoking Cessation Date Hx Smoking Cessation Counseling Hematologic Medial History Hematologic Hx - oil change technician: Hematologic 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 Hx of Blood Transfusion No 01/13/25 13:38 [...] confused, unrespo /Reproduction History /Reproductive History - oil change technician: /Reproductive Hx- oil change technician Hx Now Gestational Age (in weeks): EDC: [...] s 11/26/24 01/15/25 Rx release peg 3350-sod sulf,wbtne-zbs-oev See Rx Instructions PO .COMPLEX #2 11/26/24 [...] MD Cosigner Signature: Date CC: ~ Signed [facility] Work Phone: Consult note Author Frederic Nicole [facility] Note Date/Time January 16, 2025 7:2 0am [facility] Medical Records Department [address] [place] [address] Anesthesia Postop Eval I 01/16/25718 MR#: [id number] Acct: [id number] Name: AMANDA GRUBBS Rep #:[id number] : 1970 54 From: Frederic Nicole PCP: Dr. Franky Pearson, DO Status:REG SDC Y Race: C Location: [place] [address] Anesthesia: Postop Eval I Current Vital Signs [...] by Frederic Nicole > Date _ Frederic Nicole Cosigner Signature: Date CC: ~ Signed [facility] Work Phone: Evaluation + Plan note Future Appointments Appointment Date:05/31/2021 08:30:00 AM Scheduled Provider:FRANKY PEARSON DO Location:[facility] Appointment Type:PC OV Follow Up Appointment Date:06/20/2021 08:30:00 AM Scheduled Provider: Location:[facility] Appointment Type:US Breast Right Complete Future Scheduled Tests Radiology* US Breast Right Complete 06/20/21 [facility] Evaluation + Plan note Future Appointments Appointment Date:08/31/2021 08:30:00 AM Scheduled Provider:FRANKY PEARSON DO Location:[facility] Appointment Type:PC OV Follow Up Future Scheduled Tests Radiology* CT Thorax w/o Contrast 06/28/21 [facility] Evaluation + Plan note Future Appointments Appointment Date:08/31/2021 08:30:00 AM Scheduled Provider:FRANKY PEARSON DO Location:[facility] Appointment Type:PC OV Follow Up Future Scheduled Tests Radiology* [place] Mammogram Diagnostic Bilateral w/o Juma 01/01/22 * US Breast Right Complete 01/01/22 [facility] Evaluation + Plan note Future Appointments Appointment Date:05/30/2022 09:00:00 AM Scheduled Provider:FRANKY PEARSON DO Location:[facility] Appointment Type:PC OV Future Scheduled Tests [...] Mammogram Diagnostic Bilateral w/o Juma 01/01/22 [facility] Evaluation + Plan note Future Appointments Appointment Date:05/30/2022 09:00:00 AM Scheduled Provider:FRANKY PEARSON DO Location:[facility] Appointment Type:PC OV Diagnostic Tests Pending [...] Mammogram Diagnostic Bilateral w/o Juma 01/01/22 [facility] Evaluation + Plan note Future Appointments Appointment Date:08/24/2022 08:00:00 AM Scheduled Provider:FRANKY PEARSON DO [facility] Appointment Type: Wellness Annual Future Scheduled Tests Laboratory* Ferritin 11/22/21 * Folate Level 08/22/21 * Vitamin B12 Level 11/22/21 * Zinc Level 11/22/21 * [facility] [place] ([place] Specimens) 11/22/21 Radiology* US Breast Right Limited 08/08/22 * CT Thorax w/o Contrast 06/23/23 * [place] Mammogram Diagnostic Bilateral w/o Juma 01/01/22 [facility] Evaluation + Plan note Future Appointments Appointment Date:08/24/2022 08:00:00 AM Scheduled Provider:FRANKY PEARSON DO Location:[facility] Appointment Type: Wellness Annual Future Scheduled Tests Laboratory* Ferritin 11/22/21 * Vitamin B12 Level 11/22/21 * Zinc Level 11/22/21 * [facility] [place] (Blood Specimens) 11/22/21 Radiology* CT Thorax w/o Contrast 06/23/23 * MA Mammogram Diagnostic Bilateral w/o Juma 01/01/22 [facility] Evaluation + Plan note Future Appointments Appointment Date:11/29/2022 08:00:00 AM Scheduled Provider:FRANKY PEARSON DO [facility] Appointment Type: OV Future Scheduled Tests Laboratory* [...] 08/24/22 * Complete Metabolic Panel 08/24/22 * [facility] [place] (Blood Specimens) 11/22/21 Radiology* US Breast Right Limited 02/09/23 * BD Bone Density DEXA Axial Skeleton 12/09/22 * CT Thorax w/o Contrast 06/23/23 * MA Mammogram Diagnostic Bilateral w/o Juma 01/01/22 * MA Mammogram Diagnostic Bilateral w/o Juma 02/09/23 [facility] Evaluation + Plan note Future Appointments Appointment Date:09/13/2022 08:00:00 AM Scheduled Provider: Location:[facility] Appointment Type:CV Procedure - AOH Echo Appointment Date:09/19/2022 07:45:00 AM Scheduled Provider: Location:[facility] Appointment Type:HL Plain Stress Test Appointment Date:11/29/2022 08:00:00 AM Scheduled Provider:FRANKY PEARSON DO [facility] Appointment Type:PC OV Diagnostic Tests Pending * [...] MA Mammogram Diagnostic Bilateral w/o Juma 02/09/23 [facility] Evaluation + Plan note Future Appointments Appointment Date:09/19/2022 07:45:00 AM Scheduled Provider: Location:[facility] Appointment Type:HL Plain Stress Test Appointment Date:11/29/2022 08:00:00 AM Scheduled Provider:FRANKY PEARSON DO [facility] Appointment Type:PC OV Future Scheduled Tests Laboratory* Ferritin 11/22/21 * Vitamin B12 Level 11/22/21 * Zinc Level 11/22/21 * [facility] Lab Send out (Blood Specimens) 11/22/21 Radiology* US Breast Right Limited 02/09/23 * BD Bone Density DEXA Axial Skeleton 12/09/22 * CT Thorax w/o Contrast 06/23/23 * MA Mammogram Diagnostic Bilateral w/o Juma 01/01/22 * [place] Mammogram Diagnostic Bilateral w/o Juma 02/09/23 [facility] Evaluation note* Diagnosis Pre-diabetes- Primary [...] acute Back pain noneactive Maxillary sinusitis acute [facility] Work Phone: Evaluation note* Diagnosis Onset Date Resolution Status Maxillary sinusitis acute [facility] Work Phone: Evaluation noteNo assessment information available [facility] Work Phone: evaluation note* Diagnosis Pre-diabetes- Primary Other abnormal glucose S/P bariatric surgery Weight gain Other symptoms concerning nutrition, metabolism, and development BMI 32.0-32.9,adult Class 1 obesity with serious comorbidity and body mass index (BMI) of 32.0 to 32.9 in adult, unspecified obesity type documented in this encounter [facility] Author Rock Friend [facility] Note Date/Time January 16, 2025 6:4 0am [facility] Medical Records Department [address] [place] [address] History & Physical Exam 01/16/25 0638 MR#: [id number] Acct: [id number] Name: AMANDA GRUBBS Rep #:[id number] : 1970 54 From: Rock Pineda DO PCP: Dr. Franky Pearson, DO Status:[facility] Location: [place] [address] HPI - General General Date of Admission: [...] when she tries to have a BM, "like razor blades"BRBPR - this past Sunday, she had bad [...] shakes very little protein and fiber intake [facility] Medical History Kidney stones Wears glasses [...] s 11/26/24 01/15/25 Rx release peg 3350-sod sulf,beblc-slz-hfn See Rx Instructions PO .COMPLEX #2 11/26/24 [...] rectal pain 30 grams 0RF peg 3350-sod sulf,xmzp-yds-nkh 178.7-7.3-0.5 gram (Suflave) as directed for split [...] Cosigner Signature (if applicable): CC: Dr. Franky Pearson, DO; Rock Pineda, DO~ Signed [facility] Work Phone: Hospital course Narrative No data available for this section [facility] Hospital Discharge instructions No data available for this section [facility] Hospital Discharge instructionsAmbulatory Orders* Urology Location: None Selected [facility] Work Phone: Progress note No data available for this section [facility] Progress note Author Kiersten Wright [facility] Note Date/Time March 05, 2025 9:08am [facility] [address] [place] [address] OFFICE VISIT Date of Service: 03/05/25 MR#: [id number] Acct: [id number] Name: AMANDA GRUBBS Rep #: [id number] : 1970 Provider: ANA Wright Age/Sex: 54/F Location: [facility] Status: Signed Intake Vital Signs 01/29/25 09:18 [...] week follow up Chief Complaint: follow-up constipation 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 Accompanied by: Self Is patient in pain?: No Allergies No Known Allergies Allergy (Verified 03/05/25 08:35) Medications ?Medication ?Instructions ?Recorded ?Confirmed ?Type Diltiazem 2% / Lidocaine 5% #30 grams 11/26/2403/05/2 5 Rx ointment (compound) acetaminophen 325 mg [...] PO QHS PRN 01/29/25 History peg 3350-sod sulf,xvuov-tcn-jnr See Rx Instructions PO .COMPLEX #2 03/05/25 [...] though she describes a sensation sommer to "pooping glass" during bowel movements, which is characteristic of [...] and overweight Orientation: alert and oriented x3 HENMT Head: normocephalic Ears: hearing grossly normal bilaterally [...] trauma tothe fissure. 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 Advance Directives and Living Will Power of Building Dismantler Latest Code Status on File Code Status Date Activated Date Inactivated Comments Full Code 08/30/2018 12:11 PM 08/30/2018 4:55 PM Full Code 04/09/2018 8:24 AM 04/10/2018 2:44 PM Full Code 04/08/2018 7:00 PM 04/09/2018 8:24 AM Full Code 04/08/2018 11:06 AM 04/08/2018 6:41 PM Full Code 11/27/2017 7:08 AM 11/27/2017 4:38 PM Documents on File Type Date Recorded Patient Chemistry Lab Instructor Expl anation ACP-Advance Directive ACP-Power of Building Dismantler Advance Directive Response Recorded Date/ Time Do you have a Healthcare Power of Building Dismantler? Yes January 13, 2025 1:38pm Name of Medical Power of Building Dismantler January 13, 2025 1:38pm Hospital Course Note [...] a 47 y.o. female who presented to [facility] on 04/08/2018 for elective LRYGB. She [...] OF PROCE DURE: 04/08/2018 SURGEON: [facility] DIRECTOR: Ruben Truong MD PREOPERATIVE DIAGNOSIS: ? SANDY [...] OF PROCE DUR: 04/08/2018 SURGEON: [facility] DIRECTOR: Ruben Truong MD PREOPERATIVE DIAGNOSIS: ? SANDY [...] section and content) DATE CREATED AUTHOR 05/18/2018 [facility] DATE CREATED AUTHOR AUTHOR'S ORGANIZ ATION 03/31/2019 [facility] DATE CREATED AUTHOR AUTHOR'S ORGANIZ ATION 01/01/2020 [facility] DATE CREATED AUTHOR AUTHOR'S ORGANIZ ATION 02/03/2020 [facility] DATE CREATED AUTHOR AUTHOR'S ORGANIZ ATION 03/16/2020 [facility] DATE CREATED AUTHOR AUTHOR'S ORGANIZ ATION 09/21/2022 [facility] ([place]) DATE CREATED AUTHOR AUTHOR'S ORGANIZ ATION 01/17/2023 [facility] DATE CREATED AUTHOR AUTHOR'S ORGANIZ ATION 04/05/2025 [facility] Care Team (unrecognized sect ion and content) Personnel Name: FRANKY PEARSON DO Address: Address: [address] [address]- Care Team Personnel Name: FRANKY PEARSON DO Position: P4 Physician - Primary Care Member Role: Primary Care Physician Address: Address: [address] [address]- Care Team Related Persons Name: JIMMY GRUBBS Address: Home [address] [place], [place] [id number] Address: Temporary [address] [place], [place] [id number] Name: MELBA GRUBBS Address: Home [address] [place], [place] [id number] [place] Address: Temporary [address] [place], [place] [phone] Name: ROMIEGILLES Bonds Address: Home [address] [place], [place] [phone] Care Team Personnel Name: FRANKY PEARSON DO Position: P4 Physician - Primary Care Med Service: Active Provider Member Role: Primary Care Physician Address: Address: [address] [address]- Care Team Related Persons Name: ROMIEJIMMY Address: Home [address] [place], [place] [id number] Address: Temporary [address] [place], [place] [id number] Name: MELBA GRUBBS Address: Home [address] [place], [place] [id number] [place] Address: Temporary [address] [place], [place] [id number] Name: ROMIEGILLES Address: Home [address] [address] [place], [place] [phone] Care Team Personnel Name: FRANKY PEARSON DO Position: P4 Physician - Primary Care Member Role: Primary Care Physician Address: Address: [address] [place] [address] [place] Care Team Related Persons Name: MELBA GRUBBS Address: Home [address] [place], [place] [id number] [place] Address: Temporary [address] [place], [place] [id number] Name: ROMIEGILLES Address: Home [address] [place], [place] [id number] Care Team Personnel Name: FRANKY PEARSON DO Position: P4 Physician - Primary Care Member Role: Primary Care Physician Address: Address: [address] [place] [address]- Care Team Related Persons Name: MELBA GRUBBS Address: Home [address] [place], [place] [id number] [place] Address: Temporary [address] [place], [place] [id number] Name: GILLES GRUBBS Address: Home [address] [place], [place] [id number] Care Team Personnel Name: FRANKY PEARSON DO Position: P4 Physician - Primary Care Member Role: Primary Care Physician Address: Address: [address] [place] [address] [facility] [place] [address] Care Team Related Persons Name: MELBA GRUBBS Address: Home [address] [place], [place] [id number] [place] Address: Temporary [id number] [place] [id number] Name: GILLES GRUBBS Address: Home [address] [place], [place] [phone] Reason for Visit (unrecogniz ed section and content) Reason Comments Bariatrics Post Op Follow-up DE POP 03/12 02/26 Reason Onset Date Comments Appointment 01/16/2023 Reason Comments Bariatrics Post Op Follow-up POP D/E FU Care Teams (unrecognized sec tion and content) Terrazzo Laborer Relationship Specialty Start Date End Date Rio Aburto DO [address] [place] [address] PCP - General 06/25/17 Terrazzo Laborer Relationship Specialty Start Date End Date Rio Aburto DO [address] [place] [address] PCP - General 06/25/17 Team Status: Active Member Role Status Dates Dr. Rio Aburto DO Family Provider Active Dr. Franky Pearson DO Primary Care Provider Active Team Status: Inactive Member Role Status Dates Dr. Yessi Mcqueen DC Attending Provider Active Team Status: Inactive Member Role Status Dates Rolan Valdes DIRECTOR OF CONSERVATION, DIRECTOR OF CONSERVATION-C Attending Provider Active Team Status: Inactive Member [...] Primary Care Provider, Attendin g Provider Active Terrazzo Laborer Relationship Specialty Start Date End Date Rio Aburto DO [address] [place] [address] PCP - General 06/25/17 Team Status: Inactive Member Role Status Dates Dr. Franky Pearson DO Primary Care Provider Active Start: August 13, 2024 End: August 13, 2024 Dr. Franky Pearson DO Referring Provider Active Start: August 13, 2024 End: August 13, 2024 JADEN BeltranC Attending Provider Active Star t: August 13, 2024 End: August 13, 2024 Team Status: Inactive Member Role Status Dates Dr. Franky Pearson DO Primary Care Provider Active Start: August 19, 2024 End: August 19, 2024 Moon Lyman NP-C Attending Provider Active Start: August 19, 2024 End: August 19, 2024 Rolan Valdes NP DIRECTOR OF CONSERVATION-C Referring Provider Active S tart: August 19, 2024 End: August 19, 2024 Team Status: Inactive Member Role Status Dates Dr. Franky Pearson DO Primary Care Provider Active Start: September 25, 2024 End: September 25, 2024 Dr. Franky Pearson DO Referring Provider Active Start: September 25, 2024 End: September 25, 2024 Dr. eYssi Mcqueen DC Attending Provider Active S tart: [...] Active Start: January 16, 2025 Dr. Franky Paerson DO Referring Provider Active Start: January 16, [...] Franky Pearson DO Primary care physician Active Team [...] BE BASED ON THE PRIMARY CLINICAL RECORDS. [facility] provides no warranty or guarantee of the accuracy or completeness of information in this document.
[2025-05-15] MEDS: Lactated Ringers 1,000 ML 15 ML IV (06:01)
--- NOTE | 2025-05-15 06:30 | COLBX_PTH ---
PATIENT: CINDY GRUBBS LOC: EN U#:[id number] AGE/SX: 54/F ROOM: RE05/15/[address]: Dr. Rock Pineda DO : 1970 BED: DIS: 05/15/2025 SPEC #: [id number] RECD: 05/15/25 09:26 STATUS: ARLEEN REPaulina #: [id number] MEL: 05/15/25 06:[address]: Rock Pineda DEPT: SURGICAL PATHOLOGY RECD BY: Daniel Barclay ENTERED: 05/15/25 11:31 SP TYPE: COLON BX OTHR DR: Dr. Juancarlos Melendrez DO Tissues: A - Jejunum, NOS Procedures: Surgery Specimen Level IV HEADER OPERATION: Colonoscopy, EGD with biopsy PRE-OP DIAGNOSIS: Anal fissure, gastric ulcer, constipation, rectal bleeding TISSUE SUBMITTED: A- Jejunum biopsy MICROSCOPIC DIAGNOSIS A. Colon, jejunum, biopsy: - Normal villous architecture with mild acute inflammation and degenerative changes - see note. Note: The histologic findings suggest ischemia. The differential diagnosis includes medication -injury reaction and infection. Recommend correlation with clinical and endoscopic findings. MICROSCOPIC DESCRIPTION Slides are reviewed. GROSS DESCRIPTION A. Received in fixative is one container labeled with the patient's name and designated "Jejunum biopsy." The specimen consists of two irregular fragments of grant tissue that measure 0.4 and 0.6 cm. The specimen is totally submitted in one cassette. [place] 05/15/2025 CPT:21909
--- NOTE | 2025-05-15 06:34 | PCM.PRE.AN2 ---
ASA Classification* ASA Classification ASA Classification: 2 Assessment & Plan Anesthesia* Anesthesia Assessment Anesthesia Assessment: Discussed sedation and/or anesthesia options, risks, benefits, and alternatives with patient/parents/legal guardian/POA. Questions invited. The patient/parents/legal guardian/POA seems to understand and agrees to proceed with anesthesia plan. Reviewed the physical assessment, medical history, allergy history and patient home medications list prior to surgery/procedure/anesthetic and documented any changes. Performed airway and anesthesia risk assessments. Anesthesia Type Anesthesia Type: MAC Anesthesia Focused Assessment* Temperature: 98 F Pulse Rate: 77 Blood Pressure: 127/86 Respiratory Rate: 16 Pulse Ox: 98 Airway Assessment Mouth opens: >3 cm Mallampati Score: II Labs Anesthesia Preop lab: CBC WBC, (4.4-11.0) 5.3 K/mm3 02/19/25, 08:24 RBC, (4.2-5.4) 4.05 M/mm3 L 02/19/25, 08:24 Hgb, (12.0-15.0) 12.3 g/dL 02/19/25, 08:24 Hct, (37-47) 37.5 % 02/19/25, 08:24 Plt Count, (150-450) 316 K/mm3 02/19/25, 08:24 CHEMISTRY Potassium, (3.3-5.1) 4.9 mmol/L 02/19/25, 08:24 Sodium, (133-145) 143 mmol/L 02/19/25, 08:24 Magnesium, (1.6-2.6) 2.2 mg/dL 05/06/24, 11:53 Phosphorus, (2.5-4.9) 4.5 mg/dL 05/06/24, 11:53 BUN, (4-19) 9 mg/dL 02/19/25, 08:24 Creatinine, (0.70-1.20) 0.92 mg/dL 02/19/25, 08:24 Glucose, (70-99) 90 mg/dL 02/19/25, 08:24 TSH, (0.300-4.200) 1.490 uIU/mL 02/19/25, 08:24 COAG Pre-Assessment Diagnosis/Proposed Procedure Planned Operative Procedure(s): COLONOSCOPY, EGD Anesthesia History Anesthesia History - ethernet network architect: Anesthesia History - ethernet network architect Hx Hospitalization No 05/12/25 10:34 Any Problems With Anesthesia Yes: N/V 05/12/25 10:34 Cholinesterase deficiency No 05/12/25 10:34 You/Your Family Experience No 05/12/25 10:34 fever (hyperthermia) with Relationship Recent Exposure to Contagious No 05/15/25 05:52 Disease Does patient have nerve No 05/12/25 10:34 stimulator Patient instructed to have device shut off --Does patient have Pacemaker No 05/15/25 05:52 or ICD? When Was Last Pacemaker Check QUESTION #4 FULL TEXT: You/Your Family Experience fever (hyperthermia) with Anesthesia Last Oral Intake Last Oral intake: Last Oral Intake NPO since 22:30 05/15/25 05:52 Meds taken in AM with sips of water? Meds patient instructed to take am of surgery PONV PONV - ethernet network architect: PONV - ethernet network architect Female Yes 05/12/25 10:34 HX of Motion Sickness Yes 05/12/25 10:34 HX of N/V After Surgery Yes 05/12/25 10:34 Non-Smoker Yes 05/12/25 10:34 Duration of Surgery greater No 05/12/25 10:34 than 60 minutes Number of Risk Factors 4 05/12/25 10:34 PONV Score Severe Risk 05/12/25 10:34 Height & Weight Height & Weight: Anesthesia: Height & Weight Height 5 ft 3 in 05/15/25 05:52 Weight: 78.1 kg 05/15/25 05:52 Body Mass Index (BMI) 30.4 05/15/25 05:52 Respiratory Assessment Respiratory Assessment - ethernet network architect: Respiratory Tract Infection Hx - ethernet network architect Hx Respiratory Tract Infection No 05/12/25 10:34 STOP Sleep Apnea STOP Sleep Apnea - ethernet network architect: STOP Sleep Apnea - ethernet network architect Hx Hypertension No 05/12/25 10:34 Hx Sleep Apnea Yes: NEW DX, NO MACHINE YET 05/12/25 10:34 CPAP No 05/12/25 10:34 BIPAP No 05/12/25 10:34 Do you snore loudly (louder than talking or can be heard Do you often feel tired/ fatigued/ sleepy during daytime? Has anyone observed you stop breathing during sleep? STOP Results Positive 05/12/25 10:34 QUESTION #5 FULL TEXT : Do you snore loudly (louder than talking or can be heard through closed doors)? 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 Specify any problems Hx of Preganancy in last 3 No 05/12/25 10:34 Months Nurse Filling Out Transfusion [id number] 05/12/25 10:34 & Questions: Date: 05/12/25 05/12/25 10:34 Time: 10:37 05/12/25 10:34 Patient unable to answer at this time (ie. confused, unrespo /Reproduction History /Reproductive History - ethernet network architect: /Reproductive Hx- ethernet network architect Hx Now Gestational Age (in weeks): EDC: Hx Hx Para Hx Section SAB Does the father of the baby or his family experience fever w Father of the baby Malignant Hypertension history comment Active Medications Active Medications: Current Medications Generic Name Dose Route Start Last Admin Trade Name Freq PRN Reason Stop Dose Admin Lactated Ringer's 1,000 mls @ 15 mls/hr 05/15/25 05:45 05/15/25 06:01 IV 15 mls/hr .Q48H KATHERYN Administration PFSH Medical History Open wound Foreign body of left external ear with infection Recurrent UTI (urinary tract infection) Kidney stones Wears glasses Wears partial dentures Depression Thyroid disease Back pain Migraine headache Non-smoker History of IBS Gastric reflux History of stress test History of echocardiogram Cardiology follow-up encounter Lower respiratory tract infection Bacterial sinusitis Anginal pain Somatic dysfunction of lower extremity Psoriatic arthritis Prediabetes Family history of ischemic heart disease Anxiety Secondary insomnia Iron deficiency B12 deficiency Major depression in remission Hypothyroid Anemia Acute pharyngitis, unspecified Aphthous ulcer of mouth delivery delivered Home Medications Medication Instructions Recorded Last Taken Type Diltiazem 2% / Lidocaine 5% #30 grams 11/26/24 Unknown Rx ointment (compound) acetaminophen 325 mg tablet 325 mg PO ONCE PRN pain 11/26/24 01/15/25 History (Tylenol) bupropion HCl 75 mg tablet 75 mg PO TID 11/26/24 01/15/25 History fexofenadine 60 mg tablet (Becca 60 mg PO BID PRN allergy symptoms 11/26/24 01/15/25 History Allergy) lorazepam 0.5 mg tablet (Ativan) 0.25 mg PO DAILY PRN anxiety 11/26/24 01/15/25 History multivitamin 1 tab PO QDAY 11/26/24 01/14/25 History omeprazole 40 mg capsule,delayed 40 mg PO QDAY #90 caps 11/26/24 01/15/25 Rx release ondansetron HCl 4 mg tablet 4 mg PO Q4H PRN nausea and 03/05/25 Unknown Rx vomiting #5 tabs peg 3350-sod sulf,[id number] See Rx Instructions PO .COMPLEX #2 03/05/25 Unknown Rx 178.7-7.3-0.5-1.12-0.9 gram oral mL soln (Suflave) sod picosulf 10 mg-magnes 3.5 175 ml PO QAM 1 dose #350 mL 03/05/25 Unknown Rx gram-citric 12 gram/175 mL oral solution (Clenpiq) levofloxacin 500 mg tablet 500 mg PO DAILY #10 tabs 05/11/25 Unknown Rx docusate sodium 100 mg capsule 100 mg PO BID PRN constipation 05/12/25 Unknown History tirzepatide 5 mg/0.5 mL 5 mg subcut QWEEK 05/12/25 04/19/25 History subcutaneous pen injector (Mounjaro) Allergy/AdvReac Type Severity Reaction Status Date / Time No Known Allergies Allergy Verified 05/15/25 05:51 Family History Unknown Heart disease Cancer Kidney disease Breast cancer Lung cancer CHF (congestive heart failure) Father Myocardial infarction Brother Myocardial infarction Surgical History History of endometrial ablation History of colonoscopy H/O: hysterectomy Hx of cholecystectomy H/O tubal ligation History of weight loss surgery Social History Smoking Status: Never smoker second hand exposure: Yes alcohol intake: current substance use type: does not use caffeine: Yes Review of Systems (Anesthesia) ROS Narrative System reviewed and no additional complaints, except as documented.
--- NOTE | 2025-05-15 06:39 | PCM.HP.STD ---
[facility] - General General Date of Admission: 05/15/25 Date of Service: 05/15/25 Chief Complaint: Gastric ulcer and constipation HPI Narrative CINDY GRUBBS, is a 54 F who presents [Chief Complaint: follow-up constipation Details: OV 02/16/2025 54-year-old female with a history of gastric bypass surgery presenting with chronic constipation, gastric ulcer, and esophageal burning. The chronic constipation is likely multifactorial, coinciding with dietary habits, post-surgical changes, and escalation of GLP-1 therapy. Current management with increased dose omeprazole has shown subjective improvement in esophageal burning. The persistence of constipation necessitates further interventions. Patient Instructions: Decrease Mounjaro Continue Omeprazole 40mg daily Start Amitiza 8mcg once daily Continue stool softener BID Follow-up in 4-6 weeks and will schedule colonoscopy at that time and modify if needed - she discontinued Mounjaro 3 weeks ago - constipation is s a little bit better - now having a BM every 3-4 days - 2 episodes of significant constipation, straining and BRBPR - denies any rectal pain - reports she did not feel good on Amitiza - water intake overall is not great - she has increased her protein intake overall - started Miralax chews, 1 a day The patient is a 54-year-old female presenting with issues of constipation and symptoms suggesting an anal fissure. She reports experiencing improvement in bowel movements, now occurring every three to four days. However, she describes having two episodes of significant constipation with associated bright red blood on the stool and upon wiping, indicative of an anal fissure. There is an absence of rectal pain, though she describes a sensation sommer to "pooping glass" during bowel movements, which is characteristic of a fissure. The blood is mostly noted with the initial hard stool passage. Her stools have been difficult to initiate but ease once the initial stool passes. The constipation has persisted despite cessation of Mounjaro and attempts with Amitiza, which was discontinued due to adverse side effects. She has been managing her symptoms currently with MiraLax chews, one per day, which she believes to be somewhat effective, although an increase to two chews daily has been recommended given her continued issues. Additional measures include dietary modifications with an emphasis on increased intake, including proteins like steak and cheese, albeit with awareness of cheese's constipating potential. Past medical history includes gastric bypass surgery, and she is currently on multiple vitamin supplements due to concerns of deficiency post-surgery. Recent blood tests revealed low B12 levels at 248 and suboptimal vitamin D levels at 33. She had undergone treatment for a small gastric ulcer diagnosed previously, necessitating continued pantoprazole treatment. [facility] Medical History Open wound Foreign body of left external ear with infection Recurrent UTI (urinary tract infection) Kidney stones Wears glasses Wears partial dentures Depression Thyroid disease Back pain Migraine headache Non-smoker History of IBS Gastric reflux History of stress test History of echocardiogram Cardiology follow-up encounter Lower respiratory tract infection Bacterial sinusitis Anginal pain Somatic dysfunction of lower extremity Psoriatic arthritis Prediabetes Family history of ischemic heart disease Anxiety Secondary insomnia Iron deficiency B12 deficiency Major depression in remission Hypothyroid Anemia Acute pharyngitis, unspecified Aphthous ulcer of mouth delivery delivered Home Medications Medication Instructions Recorded Last Taken Type Diltiazem 2% / Lidocaine 5% #30 grams 11/26/24 Unknown Rx ointment (compound) acetaminophen 325 mg tablet 325 mg PO ONCE PRN pain 11/26/24 01/15/25 History (Tylenol) bupropion HCl 75 mg tablet 75 mg PO TID 11/26/24 01/15/25 History fexofenadine 60 mg tablet (Becca 60 mg PO BID PRN allergy symptoms 11/26/24 01/15/25 History Allergy) lorazepam 0.5 mg tablet (Ativan) 0.25 mg PO DAILY PRN anxiety 11/26/24 01/15/25 History multivitamin 1 tab PO QDAY 11/26/24 01/14/25 History omeprazole 40 mg capsule,delayed 40 mg PO QDAY #90 caps 11/26/24 01/15/25 Rx release ondansetron HCl 4 mg tablet 4 mg PO Q4H PRN nausea and 03/05/25 Unknown Rx vomiting #5 tabs peg 3350-sod sulf,lpanx-ihh-zrl See Rx Instructions PO .COMPLEX #2 03/05/25 Unknown Rx 178.7-7.3-0.5-1.12-0.9 gram oral mL soln (Suflave) sod picosulf 10 mg-magnes 3.5 175 ml PO QAM 1 dose #350 mL 03/05/25 Unknown Rx gram-citric 12 gram/175 mL oral solution (Clenpiq) levofloxacin 500 mg tablet 500 mg PO DAILY #10 tabs 05/11/25 Unknown Rx docusate sodium 100 mg capsule 100 mg PO BID PRN constipation 05/12/25 Unknown History tirzepatide 5 mg/0.5 mL 5 mg subcut QWEEK 05/12/25 04/19/25 History subcutaneous pen injector (Mounbhavaniro) Allergy/AdvReac Type Severity Reaction Status Date / Time No Known Allergies Allergy Verified 05/15/25 05:51 Family History Unknown Heart disease Cancer Kidney disease Breast cancer Lung cancer CHF (congestive heart failure) Father Myocardial infarction Brother Myocardial infarction Surgical History History of endometrial ablation History of colonoscopy H/O: hysterectomy Hx of cholecystectomy H/O tubal ligation History of weight loss surgery Social History Smoking Status: Never smoker second hand exposure: Yes alcohol intake: current substance use type: does not use caffeine: Yes ROS Constitutional Constitutional: Denies fatigue, fever(s), poor appetite, weight gain or weight loss Gastrointestinal Gastrointestinal: Denies belching, bloating, change in bowel habits, change in stool character, chewing difficulty, coffee ground emesis, constipation, cramping, diarrhea, dyspepsia, dysphagia, early satiety, excessive flatus, fecal incontinence, heartburn, hematemesis, hematochezia, hemorrhoids, loose stools, melena, nausea, odynophagia, rectal bleeding, tenesmus, vomiting or weight changes Vital Signs Vital Signs Vital Signs: 05/15/25 05:52 05/15/25 05:52 05/15/25 05:52 Temperature 98 F Temperature Source Temporal Pulse Rate 77 Respiratory Rate 16 Respiratory Pattern Normal Blood Pressure 127/86 H Blood Pressure Mean 99 Blood Pressure Source Monitor Blood Pressure Position Semi-Fowlers Blood Pressure Location Left Arm Baseline BP 127/86 Pulse Ox 98 Oxygen Delivery Method Room Air 05/15/25 06:34 Temperature 98 F Temperature Source Pulse Rate 77 Respiratory Rate 16 Respiratory Pattern Blood Pressure 127/86 H Blood Pressure Mean Blood Pressure Source Blood Pressure Position Blood Pressure Location Baseline BP Pulse Ox 98 Oxygen Delivery Method Weight Weight: 172 lb 2.896 oz Body Mass Index (BMI) 30.4 Physical Exam Const alert, oriented x3, no apparent distress and healthy appearing General Appearance: cooperative GI normal to inspection, nondistended, normoactive bowel sounds, soft to palpation, non-tender and non-distended Percussion: normal to percussion Rectal Exam: deferred Assessment & Plan Assessment/Plan (1) Anal fissure: (2) Gastric ulcer: (3) Constipation: (4) Rectal bleeding: PLAN: Assessment and Plan Assessment and Plan (1) Constipation: Status: Acute Plan: The patient is advised to increase the dose of MiraLax chews to two chews per day to facilitate more regular and softer bowel movements. In addition, dietary adjustments to include adequate fluid and fiber intake are recommended to improve stool consistency and frequency. The patient should monitor for any changes or persisting issues despite these changes. (2) Rectal bleeding: Status: Acute (3) Gastric ulcer: Status: Acute (4) Anal fissure: Status: Acute Plan: The anal fissure will be managed with continued application of diltiazem cream, which has been effective in the past. The patient is advised to apply diltiazem cream two times a day for optimal healing and symptom management. It is crucial to ensure stool softening and regular bowel movements to avoid further trauma to the fissure. Medications: New peg 3350-sod sulf,mepp-jgi-jln 178.7-7.3-0.5 gram (Suflave) Take as directed for split dose bowel prep 2 mL 0RF sod picosulf-mag ox-citric ac 10 mg-3.5 gram- 12 gram/175 mL (Clenpiq) administer approximately 5 hours before colonoscopy 175 mL PO QAM 350 mL 0RF 1 dose Discontinued lubiprostone (Amitiza) Discontinued Reason: Pt no longer taking 8 mcg PO BID 60 caps 1RF Plan 54-year-old female with a history of gastric bypass surgery presenting with constipation and symptoms suggestive of an anal fissure. The constipation has been partially alleviated with MiraLax chews, though episodes of hard stools and associated bleeding continue, indicative of an anal fissure. She is also dealing with ongoing nutritional deficiencies post gastric bypass surgery, including low-normal vitamin B12 and vitamin D, necessitating supplementation. Her previous history of a gastric ulcer is being managed with pantoprazole. Patient Instructions: Colon & EGD May 2025 - 2 day bowel prep May have a light breakfast and ight lunch 2 day sprior, begin clear liquids at 1pm 2 days prior drink 1/2 of Clenpiq 1 day prior at 0900 drink remaining Clenpiq and follow prep instructions for Suflave Continue Miralax chews, increase to 2 daily Increase water intake Continue PPI daily Continue use of Diltiazem/Lidocaine for treatment of anal fissure ]
--- NOTE | 2025-05-15 07:25 | PCM.POST.ANE ---
Anesthesia: Postop Eval I Current Vital Signs Temperature: 97.9 F Pulse Rate: 60 Blood Pressure: 132/80 Respiratory Rate: 16 Pulse Ox: 95 Oxygen Delivery Method: Room Air Assessment Airway patent: Yes Spontaneous unlabored respirations: Yes Mental status: Asleep nausea: No Vomiting: No Anesthesia Complication: No Fluid Hydration Crystalloid volume administer (ml): 600 Total IV fluid infused: 600 Progress Note Anesthesia document: Postop Eval 1 completed: Yes
--- NOTE | 2025-05-15 07:30 | OP.EGD_ITS ---
Patient Name: Amanda Stone Procedure Date: 05/15/2025 6:37 AM Date of : 1970 Age: 54 Procedure: Upper GI endoscopy Indications: Epigastric abdominal pain Providers: Rock Pineda DO Referring MD: Juancarlos Melendrez Do Medicines: Monitored Anesthesia Care Patient Profile: This is a 54 year old female. Refer to note in patient chart for documentation of history and physical. Patient has symptoms. Complications: No immediate complications. Procedure: Pre-Anesthesia Assessment: - Prior to the procedure, a History and Physical was performed, and patient medications and allergies were reviewed. The patient is competent. The risks and benefits of the procedure and the sedation options and risks were discussed with the patient. All questions were answered and informed consent was obtained. Patient identification and proposed procedure were verified by the physician in the pre-procedure area. Mental Status Examination: alert and oriented. Airway Examination: normal oropharyngeal airway and neck mobility. Respiratory Examination: clear to auscultation. CV Examination: normal. Prophylactic Antibiotics: The patient does not require prophylactic antibiotics. Prior Anticoagulants: The patient has taken no anticoagulant or antiplatelet agents. ASA Grade Assessment: II - A patient with mild systemic disease. After reviewing the risks and benefits, the patient was deemed in satisfactory condition to undergo the procedure. The anesthesia plan was to use monitored anesthesia care (MAC). Immediately prior to administration of medications, the patient was re-assessed for adequacy to receive sedatives. The heart rate, respiratory rate, oxygen saturations, blood pressure, adequacy of pulmonary ventilation, and response to care were monitored throughout the procedure. The physical status of the patient was re-assessed after the procedure. After obtaining informed consent, the endoscope was passed under direct vision. Throughout the procedure, the patient's blood pressure, pulse, and oxygen saturations were monitored continuously. The Colonoscope was introduced through the mouth, and advanced to the anastomosis site of gastric bypass. The upper GI endoscopy was accomplished without difficulty. The patient tolerated the procedure well. Scope In: 6:52:29 AM Scope Out: 6:56:19 AM Total Procedure Duration Time 0 hours 3 minutes 50 seconds Findings: The examined esophagus was normal. Evidence of a gastric bypass was found. A gastric pouch with a normal size was found. The staple line appeared intact. The gastrojejunal anastomosis was characterized by healthy appearing mucosa. This was traversed. The kchxg-st-aqybrts limb was characterized by healthy appearing mucosa. The jejunojejunal anastomosis was characterized by healthy appearing mucosa. The hqcuwjpk-il-gfyirtw limb was not examined as it could not be found. The excluded stomach was not examined as it could not be found. Patchy moderate inflammation, characterized by erythema, friability and serpentine ulcerations was found in the jejunum. Biopsies were taken with a cold forceps for histology. Verification of patient identification for the specimen was done. Estimated blood loss was minimal. Impression: - Normal esophagus. - Gastric bypass with a normal-sized pouch and intact staple line. Gastrojejunal anastomosis characterized by healthy appearing mucosa. - Suspected jejunal inflammation characterized by erythema, friability and serpentine ulcerations. Biopsied. Recommendation: - Discharge patient to home. - Resume previous diet. - Continue present medications. - Await pathology results. - Repeat upper endoscopy in 4 months to assess disease activity. - Misoprostol 200 mg p.o. 4 times daily Procedure Code(s): --- Professional --- 71978, Esophagogastroduodenoscopy, flexible, transoral; with biopsy, single or multiple CPT copyright 2021 [employer]. All rights reserved. The codes documented in this report are preliminary and upon gear nicker review may be revised to meet current compliance requirements. Rock Pineda DO 05/15/2025 7:29:58 AM This report has been signed electronically. Number of Addenda: 0 Note Initiated On: 05/15/2025 6:37 AM
--- NOTE | 2025-05-15 07:31 | OP.PROVAT_ITS ---
05/15/2025 Juancarlos Melendrez Do Re : Upper GI endoscopy procedure for Amanda Stone Dear Parvin This procedure was performed on Thursday, May 15, 2025. My impressions and recommendations are as follows: Impressions : - Normal esophagus. - Gastric bypass with a normal-sized pouch and intact staple line. Gastrojejunal anastomosis characterized by healthy appearing mucosa. - Suspected jejunal inflammation characterized by erythema, friability and serpentine ulcerations. Biopsied. Recommendations : - Discharge patient to home. - Resume previous diet. - Continue present medications. - Await pathology results. - Repeat upper endoscopy in 4 months to assess disease activity. - Misoprostol 200 mg p.o. 4 times daily My findings are described in the full procedure note, which is enclosed. If I can be of further assistance, please feel free to contact me at . Sincerely, Rock Pineda, 05/15/2025 7:29:58 AM This report has been signed electronically.
--- NOTE | 2025-05-15 07:31 | OP.COLON_ITS ---
Patient Name: Amanda Stone Procedure Date: 05/15/2025 6:56 AM Date of : 1970 Age: 54 Procedure: Colonoscopy Indications: Screening for colorectal malignant neoplasm Providers: Rock Pineda DO Referring MD: Juancarlos Melendrez Do Medicines: Monitored Anesthesia Care Patient Profile: This is a 54 year old female. Refer to note in patient chart for documentation of history and physical. Patient has symptoms. Last Colonoscopy: 1 year ago. Complications: No immediate complications. Procedure: Pre-Anesthesia Assessment: - Prior to the procedure, a History and Physical was performed, and patient medications and allergies were reviewed. The patient is competent. The risks and benefits of the procedure and the sedation options and risks were discussed with the patient. All questions were answered and informed consent was obtained. Patient identification and proposed procedure were verified by the physician in the pre-procedure area. Mental Status Examination: alert and oriented. Airway Examination: normal oropharyngeal airway and neck mobility. Respiratory Examination: clear to auscultation. CV Examination: normal. Prophylactic Antibiotics: The patient does not require prophylactic antibiotics. Prior Anticoagulants: The patient has taken no anticoagulant or antiplatelet agents. ASA Grade Assessment: II - A patient with mild systemic disease. After reviewing the risks and benefits, the patient was deemed in satisfactory condition to undergo the procedure. The anesthesia plan was to use monitored anesthesia care (MAC). Immediately prior to administration of medications, the patient was re-assessed for adequacy to receive sedatives. The heart rate, respiratory rate, oxygen saturations, blood pressure, adequacy of pulmonary ventilation, and response to care were monitored throughout the procedure. The physical status of the patient was re-assessed after the procedure. After I obtained informed consent, the scope was passed under direct vision. Throughout the procedure, the patient's blood pressure, pulse, and oxygen saturations were monitored continuously. The Colonoscope was introduced through the anus and advanced to the terminal ileum. The colonoscopy was performed without difficulty. The patient tolerated the procedure well. The quality of the bowel preparation was adequate. The terminal ileum, ileocecal valve, appendiceal orifice, and rectum were photographed. Scope In: 6:58:19 AM Scope Withdrawal Time 0 hours 9 minutes 47 seconds Scope Out: 7:13:24 AM Total Procedure Duration Time 0 hours 15 minutes 5 seconds Findings: The perianal and digital rectal examinations were normal. A few small-mouthed diverticula were found in the colon. Non-bleeding external and internal hemorrhoids were found during retroflexion. The hemorrhoids were Grade II (internal hemorrhoids that prolapse but reduce spontaneously). Impression: - Diverticulosis. - Non-bleeding external and internal hemorrhoids. - No specimens collected. Recommendation: - Repeat colonoscopy in 10 years for screening purposes. - Continue present medications. Procedure Code(s): --- Professional --- G0121, Colorectal cancer screening; colonoscopy on individual not meeting criteria for high risk CPT copyright 2021 [employer]. All rights reserved. The codes documented in this report are preliminary and upon care worker review may be revised to meet current compliance requirements. Rock Pineda DO 05/15/2025 7:31:38 AM This report has been signed electronically. Number of Addenda: 0 Note Initiated On: 05/15/2025 6:56 AM
--- NOTE | 2025-05-15 07:32 | OP.PROVAT_ITS ---
05/15/2025 Juancarlos Melendrez Do Re : Colonoscopy procedure for Amanda Stone Dear Parvin This procedure was performed on Thursday, May 15, 2025. My impressions and recommendations are as follows: Impressions : - Diverticulosis. - Non-bleeding external and internal hemorrhoids. - No specimens collected. Recommendations : - Repeat colonoscopy in 10 years for screening purposes. - Continue present medications. My findings are described in the full procedure note, which is enclosed. If I can be of further assistance, please feel free to contact me at . Sincerely, Rock Pineda DO 05/15/2025 7:31:38 AM This report has been signed electronically.
--- NOTE | 2025-05-15 09:12 | PCM.POSTANE2 ---
Anesthesia Postop Eval I Sum Postop Eval Completion status Anesthesia document: Postop Eval 1 completed: Yes Anesthesia Postop Eval I Summary Anesthesia Postop Eval I Summary: Anesthesia Postop Eval I: Assessment Summary Airway patent Yes 05/15/25 07:25 [email or web address] Spontaneous unlabored Yes 05/15/25 07:25 [email or web address] respirations Mental status Asleep 05/15/25 07:25 [email or web address] nausea No 05/15/25 07:25 [email or web address] Vomiting No 05/15/25 07:25 [email or web address] Anesthesia Postop Eval I: Fluid Summary Crystalloid volume administer 600 05/15/25 07:25 [email or web address] (ml) Colloids volume administered ( ml) Blood Product volume administered (ml) Total IV fluid infused 600 05/15/25 07:25 [email or web address] Anesthesia Postop Eval I: Summary Notes Anesthesia Complication No 05/15/25 07:25 [email or web address] Anesthesia Complication Comment: Post-operative progress note Anesthesia: Postop Eval II Evaluation Mental status: Awake Pain Level: 0 nausea: No Vomiting: No
== END 2025-05-15 07:54 | disposition home or self-care (01) ==
LOC: EN 05:36 → AC 05:37
PROVIDERS: PCP Student in an Organized Health Care Education/Training Program; Referring Provider Student in an Organized Health Care Education/Training Program; Visit Provider Internal Medicine Gastroenterology
PROC: 0DJD8ZZ Inspection of Lower Intestinal Tract, Via Natural or Artificial Opening Endoscopic (ICD-10-PCS; CPT 45378; principal; 2025-05-15 06:25)
DX: K52.9 Noninfective gastroenteritis and colitis, unspecified (principal); K21.9 Gastro-esophageal reflux disease without esophagitis; K25.9 Gastric ulcer, unspecified as acute or chronic, without hemorrhage or perforation; K60.2 Anal fissure, unspecified; Z98.84 Bariatric surgery status; Z79.899 Other long term (current) drug therapy; K57.30 Diverticulosis of large intestine without perforation or abscess without bleeding; K64.1 Second degree hemorrhoids; Z98.0 Intestinal bypass and anastomosis status
CPT/HCPCS: 43239; 45378; 88305; J2405

== ENCOUNTER → 2025-06-05 | Outpatient (CLI) | payer OTHER, SELFPAY ==
--- NOTE | 2025-06-05 16:55 | CT_ITS ---
PROCEDURE: CTA ABD/PELVIS W/WO CONTRAST 06/05/2025 REASON FOR EXAM: BOWEL ISCHEMIA TECHNIQUE: Procedure Code: [id number] Modality: CT Procedure: CTA ABD/PELVIS W/WO CONTRAST Multiplanar Sagittal and Coronal images were obtained. CONTRAST: Isovue 370 VOLUME: 75 mL One or more dose reduction techniques were used (e.g., Automated exposure control, adjustment of the mA and/or kV according to patient size, use of iterative reconstruction technique). RADIATION DOSE SUMMARY: CTDlvol: 13.66 mGy DLP: 672.65 mGycm COMPARISON: CT abdomen and pelvis August 26, 2022. FINDINGS: Aorta: Unremarkable. Iliac Arteries: Unremarkable. Celiac: Unremarkable. SMA: Unremarkable. KERRI : Unremarkable. Right Renal: Unremarkable. Left Renal: Unremarkable. Extravascular Findings: Status post gastric bypass surgery. No bowel wall thickening or bowel obstruction. The liver, spleen, adrenal glands, kidneys and pancreas are unremarkable. The gallbladder is surgically resected. No biliary dilation. The bladder is unremarkable. No free air or free fluid. CT/CTA Abd/Pelvis W/WO Contrast IMPRESSION: Unremarkable CTA abdomen and pelvis without stenoses. No acute abdominopelvic abnormalities. Reading Location: [facility]
--- OUTSIDE RECORDS SUMMARY | 2025-06-05 16:56 | XMS RPT_ITS | CCD ---
Author Organization [facility] Care Team Providers Care City Driver Name Role Phone Franky Pearson Primary Care Provider Unavailabl e BEDDELADAM Varner Admitting Unavailable BEDDELLADAM Attending Unavailable AA REQUESTED, NEW Primary Care Unavailable LANIE LUNA Consulting Unavailable NANDINI VILLEGAS Consulting Unavailable BARBARADELLADAM Admitting Unavailable BEDDELLADAM Attending Unavailable AA REQUESTED, NEW Primary Care Unavailable KATHERINE CANTOR E, PSYCHIATRIC TECH Admitting Unavaila ble KATHERINE CANTOR E, PSYCHIATRIC TECH Attending Unavaila ble AA REQUESTED, NEW Primary Care Unavailable Franky Pearson Primary Care Provider Unavailabl e LILI MIKE, FRANKY Primary Care Physician [phone] Rio Aburto DO Primary Care Provider [phone] LILI MIKE, FRANKY Attending Unavailable HALKO DO, [...] Rio Aburto DO Primary Care Provider [phone] Dr. Yessi Mcqueen Attending Provider Keisha PSYCHIATRIC TECH, PSYCHIATRIC TECH-C Rolan Polk Attending Provider Dr. Allan Coleman Attending Provider Dr. Allan Coleman Attending Provider Lili MIKE, Dr. Bauer Primary Care Provider Lili MIKE, Dr. Bauer Referring Provider Wen PSYCHIATRIC TECH-C, Jose M Attending Provider Nura PSYCHIATRIC TECH-C, Moon Melissa Attending Provider Keisha PSYCHIATRIC TECH-C, Rolan Polk Referring Provider Charisse JANE, Dr. Dickson Attending Provider Kyle PSYCHIATRIC TECH-CKiersten Attending Provider Lili MIKE, Dr. Bauer Primary [...] Reyes Attending Physician Jolie Burns Attending Physician [phone] Allan Coleman MD Attending Physician [...] Unavailable Halko, Franky Primary Care Unavailable Keisha PSYCHIATRIC TECH, Rolan Polk Attending Unavailable Keisha PSYCHIATRIC TECH, Rolan Polk Referring Unavailable Halko, Franky Primary Care Unavailable Allergies Allergy Classification Reported Allergen(s) Allergy Type Date of Onset Reaction(s) Facility (1 source) NSAIDs Drug allergy (disorder) [facility] Repository Medications Current Medications Medication Drug [...] oral solution (1 source) alpha-Adrenergic Agonist, Uncompetitive I-nmpanh-J-aspartate Receptor Antagonist, Sigma-1 Agonist Start: 08-26-2022 End: 09-02-2022 take 1 dose by mouth four times daily as needed Bromfed DM oral syrup Dose = 10 mL, Oral, QID, PRN for cold symptoms, X 7 day(s), # 120 mL, 0 Refill(s), [facility]: [id number], Productive cough, 160, cm, 08/24/22 8:00:00 EDT, [...] qDay, # 90 tab(s), 0 Refill(s), Pharmacy: [facility], 164, cm, 02/28/22 8:08:00 EDT, Height Start [...] glucometer., # 1 EA, 0 Refill(s), Pharmacy: [facility], Hypoglycemia, 164, cm, 04/04/22 8:05:00 EDT, Height, 86.1 Start Date: 04/04/22 Status: Ordered Start: 04-04-2022 DME MISCellane ous See Instructions, dx E16.2; check BGT due to hypoglycemic symptoms, up to once per day; dispense 100 EtOH wipes, # 100 EA, 0 Refill(s), Pharmacy: [facility], 164, cm, 04/04/22 8:05:00 EDT, Height, 86.1 Start Date: 04/04/22 Status: Ordered docusate sodium 100 mg oral capsule (11 sources) Start: 11-26-2024 take 1 capsule by mouth twice daily estradiol 0.5 mg oral tablet (13 sources) Estrogen Start: 08-24-2022 estradiol 0.5 mg oral tablet Dose : 0.5 mg = 1 tab(s), Oral, qDay, # 90 tab(s), 1 Refill(s), Pharmacy: [facility], 160, cm, 08/24/22 8:00:00 EDT, Height, kg, 08/24/22 8:00:00 EDT, Dosing Weight Start Date: 08/24/22 Status: Ordered Start: 11-22-2021 estradiol 0.5 mg oral tablet Dose : 0.5 mg = 1 tab(s), Oral, qDay, # 90 tab(s), 1 Refill(s), Pharmacy: [facility], 163.5, cm, 11/22/21 8:20:00 EDT, Height Start Date: 11/22/21 Status: Ordered Start: 03-25-2021 Estrace 0.5 mg oral tablet Dose : 0.5 mg = 1 tab(s), Oral, qDay, # 90 tab(s), 3 Refill(s), Pharmacy: [facility], 162.6, cm, 02/18/21 8:44:00 EDT, Height, kg, [...] 11/23/21, # 30 tab(s), 2 Refill(s), Pharmacy: [facility], Anxiety, 163.5, cm, 11/22/21 8:20:00 EDT, Height, 83.3, kg, 11/22/21 8:... Start Date: 11/22/21 Stop Date: 02/20/22 Status: Ordered Start: 05-31-2021 End: 08-29-2021 LORazepam 0.5 mg oral tablet Dose : 0.5 mg = 1 tab(s), Oral, qDay, PRN as needed for anxiety, oarrs appropriate, to be filled on or after 06/10/21, # 30 tab(s), 2 Refill(s), [facility] [address] Anxiety, 162.6, cm, 02/18/21 8:44:00 EDT, Height, 77.3, kg, 02/18/21 8:... Start Date: 05/31/21 Stop Date: 08/29/21 Status: Ordered Start: 03-01-2021 End: 05-30-2021 LORazepam 0.5 mg oral tablet Dose : 0.5 mg = 1 tab(s), Oral, qDay, PRN as needed for anxiety, oarrs appropriate, to be filled on or after 03/01/21, # 30 tab(s), 2 Refill(s), [facility] [address] Anxiety, 162.6, cm, 02/18/21 [...] qHS, # 90 tab(s), 1 Refill(s), Pharmacy: [facility], 160, cm, 11/23/20 15:08:00 EDT, Height, kg, 11/23/20 15:08:00 EDT, Dosing Weight Start Date: 11/23/20 Stop Date: 05/22/21 Status: Ordered predniSONE 20 mg oral tablet (1 source) Start: 08-26-2022 End: 08-31-2022 prednisone 20mg tab (TAPER) Dose : 40 mg = 2 tab(s), Oral, qDay, X 5 day(s), # 10 tab(s), 0 Refill(s), 08/31/22 9:59:00 EDT, [facility]acy: [facility] #[id number], Productive cough, 160, cm, 08/24/22 8:00:00 EDT, [...] qDay, # 90 tab(s), 1 Refill(s), Pharmacy: [facility], 160, cm, 08/24/22 8:00:00 EDT, Height, kg, 08/24/22 8:00:00 EDT, Dosing Weight Start Date: 08/24/22 Stop Date: 02/20/23 Status: Ordered Start: 05-09-2022 End: 11-05-2022 Vitamin D3 125 mcg (5000 int l units) oral tablet Dose : 125 mcg = 1 tab(s), Oral, qDay, # 90 tab(s), 1 Refill(s), Pharmacy: [facility], 164, cm, 04/04/22 8:05:00 EDT, Height Start [...] needed, # 30 cap(s), 2 Refill(s), Pharmacy: [facility], 160, cm, 08/24/22 8:00:00 EDT, Height, kg, 08/24/22 8:00:00 EDT, Dosing Weight Start Date: 08/24/22 Status: Ordered Start: 06-15-2022 take 1 capsule by mouth every four hours as needed acetaminophen/butalbital/caffeine 325 mg -50 mg-40 mg oral capsule Dose = 1 cap(s), Oral, q4h, PRN as needed, # 30 cap(s), 0 Refill(s), [facility] #[id number], 164, cm, 05/30/22 8:50:00 EST, Height Start Date: 06/15/22 Status: Ordered acetaminophen 325 mg / HYDROcodone bitartrate 5 mg oral tablet (3 sources) Opioid Agonist Start: 05-22-2021 End: 05-25-2021 take 1 tablet by mouth every six hours as needed for pain [place] 325- 5 mg oral tablet Dose = [...] 6 tab(s), 0 Refill(s), [facility]: [facility] #[id number], Productive cough, 160, cm, 08/24/22 8:00:00 EDT, [...] 02/18/19 Status: Ordered take 1 capsule by [facility] once daily Biotin 2500 MCG CAPS [...] 12:00am August 20, 2024 12:11am estrogens, conjugated (residential) 0.3 mg oral tablet (15 sources) Estrogen [...] tab(s), 1 Refill(s), 06/24/21 10:31:00 EST, Pharmacy: [address], 162.6, cm, 02/18/21 8:44:00 EDT, Height, [...] BID, # 180 tab(s), 1 Refill(s), Pharmacy: [facility], 163.5, cm, 11/22/21 8:20:00 EDT, Height, kg, [...] Start: 11-26-2024 take 1 capsule by mo [facility] once daily 30 minutes before breakfast Start: [...] qDay, # 90 cap(s), 1 Refill(s), Pharmacy: [facility], 160, cm, 11/23/20 15:08:00 EDT, Height, kg, 11/23/20 15:08:00 EDT, Dosing Weight Start Date: 11/23/20 Stop Date: 05/22/21 Status: Ordered Start: 04-10-2019 take 1 capsule by mo [facility] once daily omeprazole (PRILOSEC) 20 MG delayed [...] 1:00am July 28, 2024 1:15am Peg 3350-Sod Sulf,Eaex-Omd-Tlo (Suflave) 178.7-7.3-0.5 gram recon soln (9 sources) Start: 11-26-2024 End: 01-21-2025 Peg 3350-Sod Sulf,Tukp-Nnu-Gvj (Suflave) 178.7-7.3-0.5 gram recon soln Discontinued 0 PO .COMPLEX 2 0 November 26, 2024 12:00am January 21, 2025 3:10pm as directed for split dose bowel prep Start: 11-26-2024 Peg 3350-Sod S ulf,Cvtz-Iwc-Znt (Suflave) 178.7-7.3-0.5 gram recon soln Active 0 PO .COMPLEX 2 0 November 26, 2024 12:00am as directed for split dose bowel prep Start: 11-26-2024 Peg 3350-Sod S ulf,Zzce-Ueg-Mpw (Suflave) 178.7-7.3-0.5 gram recon soln Active 0 [...] Daily, # 90 tab(s), 1 Refill(s), Pharmacy: [facility], 160, cm, 08/24/22 8:00:00 EDT, [...] 02-06-2025 Chronic Other aftercare (1 source) Other termite helper (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) drug therapy; Translations: [OTH DETENTION CURRENT DRUG THERAPY] Onset: 0 Episodic Other [...] Visit Repor ton 03-05-2025 Gastroenterology Visit Report [facility] [address] [place] [address] OFFICE VISIT Date of Service: 03/05/25 MR#: [id number] Acct: [id number] Name: AMANDA GRUBBS Rep #: [id number] : 1970 Provider: ANA mendiola Age/Sex: 54/F Location: [facility] Status: Signed Intake Vital Signs 01/29/25 09:18 [...] week follow up Chief Complaint: follow-up constipation Boatswain Mate Required: No Accompanied by: Self Is patient [...] QHS PRN 01/29/25 03/05/25 History peg 3350-sod sulf,qqtcs-pqi-hov See Rx Instructions PO .COMPLEX #2 03/05/25 [...] significant constipation (more content not included)... Normal [facility] Vitamin B1, Thiamineon 02-25 VIT B1 THIAMINE 113.9 nmol/L Normal 66.5-200.0 [facility] Comment on above: Order Comment: Test( s) 785681-Vce. B1, Whole Bloodwas developed and its performance characteristicsdetermined by [employer]. It has not been cleared or approvedby the Food and Drug Administration. Performed By: #### L 501.9985, L506.1001, L3300.8000, L100.0500, L500.4050, L503.6550, L506.0400, L506.0200, L500.4100, L503.0106, L3300.9900, L501.9520 ####[facility] [address] [place], [address] Zinc, Plasma or Serumon 02-09 ZINC,PLASMA/SER 62 ug/dL Normal 44-115 [facility] Comment on above: Order Comment: Test( s) [id number]-Qnz. B1, Whole Bloodwas developed and its performance characteristicsdetermined by [employer]. It has not been cleared or approvedby the Food and Drug Administration. Result Comment: Dete ction Limit = 5 Performed at: [address] [id number] Disk Recoater: Jaems Herrera MD, Phone: [phone] Performed By: #### L 501.9985, L506.1001, L3300.8000, L100.0500, L500.4050, L503.6550, L506.0400, L506.0200, L500.4100, L503.0106, L3300.9900, L501.9520 ####[facility] [address], [address] Anion gap in Serum or Plasma Ordered By: Franky Pearson on 02-19-2025 Anion gap [Moles/Vol] 11 mmol/L 5-15 [place] BUN/creatinine ratioOrdered By: Franky Pearson on 02-19-2025 Urea nitrogen/Creatinine [Mass ratio] 9.8 mg/mg Low 10-20 [facility] Bilirubin, totalOrdered By: Franky Pearson on 02-19-2025 Bilirubin [Mass/Vol] 0.32 mg/dL 0.00-1.30 [facility] CBC-Complete Blood Cnt No Di ffon 02-19-2025 Erythrocyte distribution width (RBC) [Ratio] 12.7 % Normal 11.6-14.6 [facility] Comment on above: Performed By: #### L 501.9985, L506.1001, L3300.8000, L100.0500, L500.4050, L503.6550, L506.0400, L506.0200, L500.4100, L503.0106, L3300.9900, L501.9520 #### [facility] [address] [facility] [place], [address] Hematocrit (Bld) [Volume fraction] 37.5 % Normal 37-47 [facility] Comment on above: Performed By: #### L 501.9985, L506.1001, L3300.8000, L100.0500, L500.4050, L503.6550, L506.0400, L506.0200, L500.4100, L503.0106, L3300.9900, L501.9520 #### [facility] [address] [place], [address] Hemoglobin (Bld) [Mass/Vol] 12.3 g/dL Normal 12.0-15.0 [facility] Comment on above: Performed By: #### L 501.9985, L506.1001, L3300.8000, L100.0500, L500.4050, L503.6550, L506.0400, L506.0200, L500.4100, L503.0106, L3300.9900, L501.9520 #### [facility] [address] [place], [address] MCH (RBC) [Entitic mass] 30.4 pg Normal 27.0-32.0 [facility] Comment on above: Performed By: #### L 501.9985, L506.1001, L3300.8000, L100.0500, L500.4050, L503.6550, L506.0400, L506.0200, L500.4100, L503.0106, L3300.9900, L501.9520 #### [facility] [address] [place], [place], [phone] MCHC (RBC) [Mass/Vol] 32.8 g/dL Normal 32-36 [place] Comment on above: Performed By: #### L 501.9985, L506.1001, L3300.8000, L100.0500, L500.4050, L503.6550, L506.0400, L506.0200, L500.4100, L503.0106, L3300.9900, L501.9520 #### [facility] [address] [place], [place], [phone] MCV (RBC) [Entitic vol] 92.6 fL Normal 81-99 [facility] Comment on above: Performed By: #### L 501.9985, L506.1001, L3300.8000, L100.0500, L500.4050, L503.6550, L506.0400, L506.0200, L500.4100, L503.0106, L3300.9900, L501.9520 #### [facility] [address] [place], [address] Platelet mean volume (Bld) [Entitic vol] 9.7 fL Normal 6.2-12.0 [facility] Comment on above: Performed By: #### L 501.9985, L506.1001, L3300.8000, L100.0500, L500.4050, L503.6550, L506.0400, L506.0200, L500.4100, L503.0106, L3300.9900, L501.9520 #### [facility] [address] [place], [address] Platelets (Bld) [#/Vol] 316 10*3/uL Normal 150-450 [facility] Comment on above: Performed By: #### L 501.9985, L506.1001, L3300.8000, L100.0500, L500.4050, L503.6550, L506.0400, L506.0200, L500.4100, L503.0106, L3300.9900, L501.9520 #### [facility] [address] [place], [address] RBC (Bld) [#/Vol] 4.05 10*6/uL Low 4.2-5.4 [facility] Comment on above: Performed By: #### L 501.9985, L506.1001, L3300.8000, L100.0500, L500.4050, L503.6550, L506.0400, L506.0200, L500.4100, L503.0106, L3300.9900, L501.9520 #### [facility] [address] [place], [address] RDW SD 43.1 fl Normal 35.1-43.9 [facility] Comment on above: Performed By: #### L 501.9985, L506.1001, L3300.8000, L100.0500, L500.4050, L503.6550, L506.0400, L506.0200, L500.4100, L503.0106, L3300.9900, L501.9520 #### [facility] [address] [place], [place], [phone] WBC (Bld) [#/Vol] 5.3 10*3/uL Normal 4.4-11.0 [facility] Comment on above: Performed By: #### L 501.9985, L506.1001, L3300.8000, L100.0500, L500.4050, L503.6550, L506.0400, L506.0200, L500.4100, L503.0106, L3300.9900, L501.9520 #### [facility] [address] [place], [place], [id number] Calculated very low density lipoprotein (VLDL) cholesterol measurementOrdered By: Franky Pearson on 02-19-2025 Calculated very low density lipoprotein (VLDL) cholesterol measurement 14 mg/dL 5-40 [facility] Carbon dioxide, total [Moles /volume] in Central venous bloodOrdered By: Franky Pearson on 02-19-2025 CO2 [Moles/Vol] 25.9 mmol/L 21.0-32.0 [facility] Chloride assayOrdered By: Park Pearson on 02-19-2025 Chloride [Moles/Vol] 106 mmol/L 98-108 [facility] Comprehensive Metabolic Prof ilon 02-19-2025 Albumin [Mass/Vol] 4.5 g/dL Normal 3.5-5.0 [facility] Comment on above: Order Comment: FAX R ESULTS TO [phone] Performed By: #### L 501.9985, L506.1001, L3300.8000, L100.0500, L500.4050, L503.6550, L506.0400, L506.0200, L500.4100, L503.0106, L3300.9900, L501.9520 #### [facility] [address] [facility] [facility] [address] [place], [place], [phone] Albumin/Globulin [Mass ratio] 1.4 {ratio} Normal 0.9-2.4 [facility] Comment on above: Order Comment: FAX R ESULTS TO [phone] Performed By: #### L 501.9985, L506.1001, L3300.8000, L100.0500, L500.4050, L503.6550, L506.0400, L506.0200, L500.4100, L503.0106, L3300.9900, L501.9520 #### [facility] [address] [place], [address] ALK PHOS 128 U/L High 35-104 [facility] Comment on above: Order Comment: FAX R ESULTS TO [phone] Performed By: #### L 501.9985, L506.1001, L3300.8000, L100.0500, L500.4050, L503.6550, L506.0400, L506.0200, L500.4100, L503.0106, L3300.9900, L501.9520 #### [facility] [address] [place], [address] ALT [Catalytic activity/Vol] 20 U/L Normal <=34 [facility] Comment on above: Order Comment: FAX R ESULTS TO [phone] Performed By: #### L 501.9985, L506.1001, L3300.8000, L100.0500, L500.4050, L503.6550, L506.0400, L506.0200, L500.4100, L503.0106, L3300.9900, L501.9520 #### [facility] [address] [place], [address] AST [Catalytic activity/Vol] 21 U/L Normal <=31 [facility] Comment on above: Order Comment: FAX R ESULTS TO [phone] Performed By: #### L 501.9985, L506.1001, L3300.8000, L100.0500, L500.4050, L503.6550, L506.0400, L506.0200, L500.4100, L503.0106, L3300.9900, L501.9520 #### [facility] [address] [place], [place], [id number] Bilirubin [Mass/Vol] 0.32 mg/dL Normal 0.00-1.30 [facility] Comment on above: Order Comment: FAX R ESULTS TO [phone] Performed By: #### L 501.9985, L506.1001, L3300.8000, L100.0500, L500.4050, L503.6550, L506.0400, L506.0200, L500.4100, L503.0106, L3300.9900, L501.9520 #### [facility] [address] [place], [address] BUN/CRE 9.8 RATIO Low 10-20 [facility] Comment on above: Order Comment: FAX R ESULTS TO [phone] Performed By: #### L 501.9985, L506.1001, L3300.8000, L100.0500, L500.4050, L503.6550, L506.0400, L506.0200, L500.4100, L503.0106, L3300.9900, L501.9520 #### [facility] [address] [place], [place], [id number] Calcium [Mass/Vol] 9.6 mg/dL Normal 7.6-11.0 [facility] Comment on above: Order Comment: FAX R ESULTS TO [phone] Performed By: #### L 501.9985, L506.1001, L3300.8000, L100.0500, L500.4050, L503.6550, L506.0400, L506.0200, L500.4100, L503.0106, L3300.9900, L501.9520 #### [facility] [address] [place], [place], [phone] Chloride [Moles/Vol] 106 mmol/L Normal 98-108 [facility] Comment on above: Order Comment: FAX R ESULTS TO [phone] Performed By: #### L 501.9985, L506.1001, L3300.8000, L100.0500, L500.4050, L503.6550, L506.0400, L506.0200, L500.4100, L503.0106, L3300.9900, L501.9520 #### [facility] [address] [place], [place], [id number] CO2 [Moles/Vol] 25.9 mmol/L Normal 21.0-32.0 [facility] Comment on above: Order Comment: FAX R ESULTS TO [phone] Performed By: #### L 501.9985, L506.1001, L3300.8000, L100.0500, L500.4050, L503.6550, L506.0400, L506.0200, L500.4100, L503.0106, L3300.9900, L501.9520 #### [facility] [address] [place], [address] Creatinine [Mass/Vol] 0.92 mg/dL Normal 0.70-1.20 [place] Comment on above: Order Comment: FAX R ESULTS TO [phone] Performed By: #### L 501.9985, L506.1001, L3300.8000, L100.0500, L500.4050, L503.6550, L506.0400, L506.0200, L500.4100, L503.0106, L3300.9900, L501.9520 #### [facility] [address] [place], [address] GAP 11 Normal 5-15 [facility] Comment on above: Order Comment: FAX R ESULTS TO [phone] Performed By: #### L 501.9985, L506.1001, L3300.8000, L100.0500, L500.4050, L503.6550, L506.0400, L506.0200, L500.4100, L503.0106, L3300.9900, L501.9520 #### [facility] [address] [place], [address] (778) GFR/1.73 sq M.predicted among non-blacks MDRD (S/P/Bld) [Vol rate/Area] 75 mL/min/{1.73_m2} Normal >60 [facility] Comment on above: Order Comment: FAX R ESULTS TO [phone] Result Comment: mL/m in/1.73m2 CKD-EPI Creatinine Equation (2020) Performed By: #### L 501.9985, L506.1001, L3300.8000, L100.0500, L500.4050, L503.6550, L506.0400, L506.0200, L500.4100, L503.0106, L3300.9900, L501.9520 #### [facility] [address] [place], [place], [phone] (257) Globulin (S) [Mass/Vol] 3.2 g/dL Normal 2.2-4.2 [facility] Comment on above: Order Comment: FAX R ESULTS TO [phone] Performed By: #### L 501.9985, L506.1001, L3300.8000, L100.0500, L500.4050, L503.6550, L506.0400, L506.0200, L500.4100, L503.0106, L3300.9900, L501.9520 #### [facility] [address] [place], [place], [phone] (636) Glucose [Mass/Vol] 90 mg/dL Normal 70-99 [facility] Comment on above: Order Comment: FAX R ESULTS TO [phone] Performed By: #### L 501.9985, L506.1001, L3300.8000, L100.0500, L500.4050, L503.6550, L506.0400, L506.0200, L500.4100, L503.0106, L3300.9900, L501.9520 #### [facility] [address] [place], [address] Potassium [Moles/Vol] 4.9 mmol/L Normal 3.3-5.1 [place] Comment on above: Order Comment: FAX R ESULTS TO [phone] Performed By: #### L 501.9985, L506.1001, L3300.8000, L100.0500, L500.4050, L503.6550, L506.0400, L506.0200, L500.4100, L503.0106, L3300.9900, L501.9520 #### [facility] [address] [place], [place], [phone] (199) Sodium [Moles/Vol] 143 mmol/L Normal 133-145 [facility] Comment on above: Order Comment: FAX R ESULTS TO [phone] Performed By: #### L 501.9985, L506.1001, L3300.8000, L100.0500, L500.4050, L503.6550, L506.0400, L506.0200, L500.4100, L503.0106, L3300.9900, L501.9520 #### [facility] [address] [place], [address] T PROT 7.7 g/dL Normal 5.9-8.4 [facility] Comment on above: Order Comment: FAX R ESULTS TO [phone] Performed By: #### L 501.9985, L506.1001, L3300.8000, L100.0500, L500.4050, L503.6550, L506.0400, L506.0200, L500.4100, L503.0106, L3300.9900, L501.9520 #### [facility] [address] [place], [place], [id number] Urea nitrogen [Mass/Vol] 9 mg/dL Normal 4-19 [facility] Comment on above: Order Comment: FAX R ESULTS TO [phone] Performed By: #### L 501.9985, L506.1001, L3300.8000, L100.0500, L500.4050, L503.6550, L506.0400, L506.0200, L500.4100, L503.0106, L3300.9900, L501.9520 #### [facility] [address] [place], [address] Erythrocyte distribution wid th ratioOrdered By: Franky Pearson on 02-19-2025 Erythrocyte distribution width (RBC) [Ratio] 12.7 % 11.6-14.6 [facility] Erythrocyte distribution wid th standard deviationOrdered By: Franky Pearson on 02-19-2025 Erythrocyte distribution width (RBC) [Ratio] 43.1 fl 35.1-43.9 [facility] Ferritinon 02-19-2025 Ferritin [Mass/Vol] 17 ng/mL Low 22-378 [facility] Comment on above: Order Comment: FAX R ESULTS TO [phone] Performed By: #### L 501.9985, L506.1001, L3300.8000, L100.0500, L500.4050, L503.6550, L506.0400, L506.0200, L500.4100, L503.0106, L3300.9900, L501.9520 ####[facility] [id number] [place], [place], [id number] Folate [Mass/volume] in Seru m or PlasmaOrdered By: Franky Pearson on 02-19-2025 Folate [Mass/Vol] 6.36 ng/mL 4.60-34.80 [facility] Folates,Serum (Folic Acid)on 02-19-2025 FOLATES,SERUM 6.36 ng/mL Normal 4.60-34.80 [facility] Comment on above: Order Comment: N Performed By: #### L 501.9985, L506.1001, L3300.8000, L100.0500, L500.4050, L503.6550, L506.0400, L506.0200, L500.4100, L503.0106, L3300.9900, L501.9520 #### [facility] [address], [address] Glomerular filtration rate ( GFR) estimation/1.73 sq m using serum, plasma, or whole bOrdered By: Franky Pearson on 02-19-2025 GFR/1.73 sq M.predicted among non-blacks MDRD (S/P/Bld) [Vol rate/Area] 75 mL/min/{1.73_m2} >60 [facility] Comment on above: mL/min/1.73m2 CKD-EP I Creatinine Equation (2020) Hematocrit Auto (Bld) [Volum e fraction]Ordered By: Franky Pearson on 02-19-2025 Hematocrit (Bld) [Volume fraction] 37.5 % 37-47 [facility] Hemoglobin A1con 02-19-2025 HbA1c (Bld) [Mass fraction] 5.5 % Normal <=5.6 [facility] Comment on above: Result Comment: Norm al < 5.7 % Prediabetic 5.7 - 6.4 % Diabetic >or= 6.5 % Please note range changes. Performed By: #### L 501.9985, L506.1001, L3300.8000, L100.0500, L500.4050, L503.6550, L506.0400, L506.0200, L500.4100, L503.0106, L3300.9900, L501.9520 #### [facility] [address] [place], [address] Hemoglobin A1c percentageOrd ered By: Franky Pearson on 02-19-2025 HbA1c (Bld) [Mass fraction] 5.5 % <5.7 [facility] Comment on above: Normal < 5.7 % Predi abetic 5.7 - 6.4 % Diabetic >or= 6.5 % Please note range changes. Hemoglobin measurementOrdere d By: Franky Pearson on 02-19-2025 Hemoglobin (Bld) [Mass/Vol] 12.3 g/dL 12.0-15.0 [facility] LDL calc ser/plasOrdered By: Franky Pearson on 02-19-2025 Cholesterol in LDL [Mass/Vol] 82 mg/dL [facility] Comment on above: Jhdmelcwzg=498-069 m g/dL & Higher Qyim=809 mg/dL or greaterFriedwald Equation for LDL-C Laboratory - Chemistry and C hemistry - challengeOrdered By: Franky Pearson on 02-19-2025 AST [Catalytic activity/Vol] 21 U/L <32 [facility] Lipid Profileon 02-19-2025 CHOL:HDL 2.42 Normal [facility] Comment on above: Order Comment: FAX R ESULTS TO [phone] Performed By: #### L 501.9985, L506.1001, L3300.8000, L100.0500, L500.4050, L503.6550, L506.0400, L506.0200, L500.4100, L503.0106, L3300.9900, L501.9520 ####[facility] [address] [place], [place], [address] Cholesterol [Mass/Vol] 163 mg/dL Normal <=200 [facility] Comment on above: Order Comment: FAX R ESULTS TO [phone] Result Comment: Chol esterol level, Desirable <200 mg/dL Borderline high cholesterol 200-239 mg/dL High cholesterol >=240 mg/dL Recommendations of the NCEP Adult Treatment Panel for the following risk-cutoff thresholds for the [place] population. Performed By: #### L 501.9985, L506.1001, L3300.8000, L100.0500, L500.4050, L503.6550, L506.0400, L506.0200, L500.4100, L503.0106, L3300.9900, L501.9520 ####[facility] [address] [place], [place], [phone](177) Cholesterol in HDL [Mass/Vol] 67 mg/dL Normal [facility] Comment on above: Order Comment: FAX R ESULTS TO [phone] Result Comment: Alicia onal Cholesterol Education Program (NCEP) guidelines: <40 mg/dL: Low HDL-cholesterol (major risk factor for CHD) >= 60 mg/dL: High HDL-cholesterol (negative risk factor for CHD) HDL-cholesterol is affected by a number of factors, e.g. smoking, exercise, hormones, sex and age. Performed By: #### L 501.9985, L506.1001, L3300.8000, L100.0500, L500.4050, L503.6550, L506.0400, L506.0200, L500.4100, L503.0106, L3300.9900, L501.9520 ####[facility] [address] [place], [address](903) Cholesterol in LDL [Mass/Vol] 82 mg/dL Normal [facility] Comment on above: Order Comment: FAX R ESULTS TO [phone] Result Comment: Bord ovqlgq=737-163 mg/dL Higher Zzfx=567 mg/dL or greater Friedwald Equation for LDL-C Performed By: #### L 501.9985, L506.1001, L3300.8000, L100.0500, L500.4050, L503.6550, L506.0400, L506.0200, L500.4100, L503.0106, L3300.9900, L501.9520 ####[facility] [address] [place], [address] Cholesterol in VLDL [Mass/Vol] 14 mg/dL Normal 5-40 [facility] Comment on above: Order Comment: FAX R ESULTS TO [phone] Performed By: #### L 501.9985, L506.1001, L3300.8000, L100.0500, L500.4050, L503.6550, L506.0400, L506.0200, L500.4100, L503.0106, L3300.9900, L501.9520 ####[facility] [address] [place], [address] Triglyceride [Mass/Vol] 68 mg/dL Normal [facility] Comment on above: Order Comment: FAX R ESULTS TO [phone] Result Comment: The drugs N-Acetylcysteine and Metamizole may falsely depress this assay. Normal range: <150 mg/dL Borderline High: 150-199 mg/dL High: 200-499 mg/dL Very High: >500 mg/dL Performed By: #### L 501.9985, L506.1001, L3300.8000, L100.0500, L500.4050, L503.6550, L506.0400, L506.0200, L500.4100, L503.0106, L3300.9900, L501.9520 ####[facility] [address] [place], [address] MCV (mean corpuscular volume ) determinationOrdered By: Franky Pearson on 02-19-2025 MCV (RBC) [Entitic vol] 92.6 fL 81-99 [facility] Mean corpuscular hemoglobin (MCH) determinationOrdered By: rFanky Pearson on 02-19-2025 MCH (RBC) [Entitic mass] 30.4 pg 27.0-32.0 [facility] Mean corpuscular hemoglobin concentration (MCHC) determinationOrdered By: Franky Pearson on 02-19-2025 MCHC (RBC) [Mass/Vol] 32.8 g/dL 32-36 [place] Mean platelet volume determi nationOrdered By: Franky Pearson on 02-19-2025 Platelet mean volume (Bld) [Entitic vol] 9.7 fL 6.2-12.0 [facility] Platelet countOrdered By: Park Pearson on 02-19-2025 Platelets (Bld) [#/Vol] 316 10*3/uL 150-450 [facility] Potassium measurement (mass/ volume)Ordered By: Franky Pearson on 02-19-2025 Potassium (Unsp spec) [Mass/Vol] 4.9 mmol/L 3.3-5.1 [facility] RBC Auto (Bld) [#/Vol]Ordere d By: Franky Pearson on 02-19-2025 RBC (Bld) [#/Vol] 4.05 10*6/uL Low 4.2-5.4 [facility] Screening total cholesterol/ high density lipoprotein (HDL) cholesterol ratioOrdered By: Franky Pearson on 02-19-2025 Cholesterol.total/Chol esterol in HDL [Mass ratio] 2.42 {ratio} [facility] Serum creatinine measurement (mass/volume)Ordered By: Franky Pearson on 02-19-2025 Creatinine [Mass/Vol] 0.92 mg/dL 0.70-1.20 [place] Serum globulin measurementOr dered By: Franky Pearson on 02-19-2025 Globulin (S) [Mass/Vol] 3.2 g/dL 2.2-4.2 [facility] Serum glucose measurement (m ass/volume)Ordered By: Franky Pearson on 02-19-2025 Glucose [Mass/Vol] 90 mg/dL 70-99 [facility] Serum or plasma alanine vang otransferase (ALT) measurementOrdered By: Franky Pearson on 02-19-2025 ALT [Catalytic activity/Vol] 20 U/L <35 [facility] Serum or plasma albumin sharifa urement (mass/volume)Ordered By: Franky Pearson on 02-19-2025 Albumin [Mass/Vol] 4.5 g/dL 3.5-5.0 [facility] Serum or plasma albumin/glob ulin mass ratioOrdered By: Franky Pearson on 02-19-2025 Albumin/Globulin [Mass ratio] 1.4 {ratio} 0.9-2.4 [facility] Serum or plasma alkaline keegan sphatase measurementOrdered By: Franky Pearson on 02-19-2025 ALP [Catalytic activity/Vol] 128 U/L High 35-104 [facility] Serum or plasma calcium sharifa urement (mass/volume)Ordered By: Franky Pearson on 02-19-2025 Calcium [Mass/Vol] 9.6 mg/dL 7.6-11.0 [facility] Serum or plasma cholesterol in HDL measurement (mass/volume)Ordered By: Franky Pearson on 02-19-2025 Cholesterol in HDL [Mass/Vol] 67 mg/dL >40 [facility] Comment on above: National Cholesterol Education Program (NCEP) guidelines:<40 mg/dL: Low HDL-cholesterol (major risk factor for CHD)>= 60 mg/dL: High HDL-cholesterol (negative risk factor for CHD)HDL-cholesterol is affected by a number of factors, e.g. smoking, exercise, hormones, sex and age. Serum or plasma cholesterol measurement (mass/volume)Ordered By: Franky Pearson on 02-19-2025 Cholesterol [Mass/Vol] 163 mg/dL <201 [facility] Comment on above: Cholesterol level, D esirable <200 mg/dLBorderline high cholesterol 200-239 mg/dLHigh cholesterol >=240 mg/dLRecommendations of the NCEP Adult Treatment Panel for the following risk-cutoff thresholds for the [place] population. Serum or plasma ferritin kayla surement (mass/volume)Ordered By: Franky Pearson on 02-19-2025 Ferritin [Mass/Vol] 17 ng/mL Low 22-378 [facility] Serum or plasma thiamine kayla surement (mass/volume)Ordered By: Franky Pearson on 02-19-2025 Thiamine [Mass/Vol] 113.9 nmol/L 66.5-200.0 [place] Serum or plasma urea nitroge n measurement (mass/volume)Ordered By: Franky Pearson on 02-19-2025 Urea nitrogen [Mass/Vol] 9 mg/dL 4-19 [facility] Serum or plasma zinc measure ment (mass/volume)Ordered By: Franky Pearson on 02-19-2025 Zinc [Mass/Vol] 62 ug/dL 44-115 [facility] Comment on above: Detection Limit = 5P erformed at: BN - [facility] [address] [id number] Director: James Herrera MD, Phone: [phone] Sodium levelOrdered By: Harry wendy Lili on 02-19-2025 Sodium [Moles/Vol] 143 mmol/L 133-145 [facility] T4 Free Directon 02-19-2025 T4 FREE DIRECT 1.00 ng/dL Normal 0.76-1.46 [facility] Comment on above: Order Comment: FAX R ESULTS TO [phone] Performed By: #### L 501.9985, L506.1001, L3300.8000, L100.0500, L500.4050, L503.6550, L506.0400, L506.0200, L500.4100, L503.0106, L3300.9900, L501.9520 ####[facility] [address] [place], [address] T4 freeOrdered By: Franky currie on 02-19-2025 Free T4 [Mass/Vol] 1.00 ng/dL 0.76-1.46 [facility] TSH DL <= 0.005 mIU/L QnOrde red By: Franky Pearson on 02-19-2025 TSH Qn 1.490 uIU/mL 0.300-4.20 0 [facility] Thyroid Stim Hormone (TSH)on 02-19-2025 TSH 1.490 uIU/mL Normal 0.300-4.20 0 [facility] Comment on above: Order Comment: FAX R ESULTS TO [phone] Performed By: #### L 501.9985, L506.1001, L3300.8000, L100.0500, L500.4050, L503.6550, L506.0400, L506.0200, L500.4100, L503.0106, L3300.9900, L501.9520 ####[facility] [address] [place], [address] Total proteinOrdered By: Carmen Pearson on 02-19-2025 Protein [Mass/Vol] 7.7 g/dL 5.9-8.4 [facility] Triglycerides measurementOrd ered By: Franky Pearson on 02-19-2025 Triglyceride [Mass/Vol] 68 mg/dL <199 [facility] Comment on above: The drugs N-Acetylcy steine and Metamizole may falsely depress this assay. Normal range: <150 mg/dLBorderline High: 150-199 mg/dLHigh: 200-499 mg/dLVery High: >500 mg/dL Vitamin B12on 02-19-2025 Cobalamin (Vitamin B12) [Mass/Vol] 248 pg/mL Normal 180-914 [facility] Comment on above: Order Comment: FAX R ESULTS TO [phone] Performed By: #### L 501.9985, L506.1001, L3300.8000, L100.0500, L500.4050, L503.6550, L506.0400, L506.0200, L500.4100, L503.0106, L3300.9900, L501.9520 ####[facility] [address] [place], [place], [id number] Vitamin B12 ser/plasOrdered By: Franky Pearson on 02-19-2025 Cobalamin (Vitamin B12) [Mass/Vol] 248 pg/mL 180-914 [facility] Vitamin D,25 Hydroxyon 02-19 Vitamin D 25-OH 33.2 ng/mL Normal 30-100 [facility] Comment on above: Order Comment: FAX R ESULTS TO [phone] Result Comment: Araceli min D Status Deficiency: <20 ng/mL (50nmol/L) Insufficiency: 20-30 ng/mL (50-75 nmol/L) Sufficiency: 30-100 ng/mL (75-250 nmol/L) Toxicity: >100 ng/mL (>250 nmol/L) Performed By: #### L 501.9985, L506.1001, L3300.8000, L100.0500, L500.4050, L503.6550, L506.0400, L506.0200, L500.4100, L503.0106, L3300.9900, L501.9520 ####[facility] [address] [place], [place], [id number] White blood cell (WBC) count Ordered By: Franky Pearson on 02-19-2025 WBC (Bld) [#/Vol] 5.3 10*3/uL 4.4-11.0 [facility] Foot min 3 Viewson 5 Foot min 3 Views [facility] [address], [place] [address] (167) Foot min 3 Views MR#: [id number] Acct: [id number] Name: AMANDA GRUBBS Rep #: [id number] : 1970 F 54 From: Nandini Love MD PCP: Dr. Franky Pearson, Status: DEP AMB Study: Foot min 3 Views Date of Exam: 02/06/25 Exam# [id number] Ordering Dr: Jolie Joseph NP-Amrita EXAM: XR [...] IMPRESSION: Degenerative changes as above. Reading Location: [facility] CC: PSYCHIATRIC TECH-C Jolie Joseph; Dr. Franky Pearson DO Mechanical Meter Tester: Signed Normal [facility] Knee 4 or More Viewson 02-06 Knee 4 or More Views [facility] Imaging Services [address] [place] [address] Knee 4 or More Views MR#: [id number] Acct: [id number] Name: AMANDA GRUBBS Rep #: [id number] : 1970 F 54 From: Nandini Love MD PCP: Dr. Franky Pearson DO Status: DEP AMB Study: Knee 4 or More Views Date of Exam: 02/06/25 Exam# [id number] Ordering Dr: Jolie Joseph EXAM: XR Right Knee Complete, 4 or More Views CLINICAL INDICATION: ON GOING PAIN, NKI TECHNIQUE: Four or more views of the right knee. COMPARISON: No relevant prior studies available. FINDINGS: BONES/JOINTS: Unremarkable. No acute fracture. No dislocation. SOFT TISSUES: Unremarkable. RAD/Knee 4 or More Views IMPRESSION: No acute fracture. [facility] CC: ANA Joseph; Dr. Franky Pearson DO Mechanical Meter Tester: Signed Normal [facility] Orthopedic Visit Reporton Orthopedic Visit Report [facility] [address] [place] [address] [address] [place] [address] OFFICE VISIT Date of Service: 02/06/25 MR#: [id number] Acct: [id number] Name: AMANDA GRUBBS Rep #: [id number] : 1970 Provider: ANA montanez Age/Sex: 54/F Location: [facility] Status: Signed Intake Vital Signs 01/29/25 09:18 [...] ROS Con (more content not included)... Normal [facility] Urine Cultureon 02-04-2025 URC Presumptive E. coli [place] Count 80,000-100,000 Presumptive E. coli: REACTION Ampicillin [...] TMP SMX Islt CARMEN >=320 R Normal [facility] Comment on above: Performed By: #### M 100.2200 ####[facility] [address] [place], [address] Laboratory - Chemistry and C hemistry - challengeOrdered By: Angus Villalobos on 02-02-2025 Bilirubin Ql (U) Negative [facility] Glucose Ql (U) Negative [facility] Ketones Ql (U) Trace (5) [facility] pH (U) 5.0 [pH] [facility] Specific gravity (U) [Rel density] 1.005 [facility] Urobilinogen (U) [Mass/Vol] 0.7541637 mg/dL [facility] Laboratory - Hematology and Cell countsOrdered By: Angus Villalobos on 02-02-2025 Hemoglobin Ql (U) Negative [facility] Laboratory - Specimen inform ationOrdered By: nAgus Villalobos on 02-02-2025 Clarity (U) Clear [facility] Color (U) Colorless [facility] Laboratory - UrinalysisOrder ed By: Angus Villalobos on 02-02-2025 Nitrite Ql (U) Negative [facility] Protein Ql (U) Negative [facility] No Panel InformationOrdered By: Angus Villalobos on 02-02-2025 Urine Leukocytes Negatve [facility] Urine Non-Hemolyzed Blood Negative [facility] Urgent Care Visit Reporton 0 02-02-2025 Urgent Care Visit Report [facility] [address] [place] [address] OFFICE VISIT Date of Service: 02/02/25 MR#: [id number] Acct: [id number] Name: AMANDA GRUBBS Rep #: [id number] : 1970 Provider: BLU Marshall Age/Sex: 54/F Location: [facility] Status: Signed Intake Vital Signs 01/29/25 09:18 [...] No CV (more content not included)... Normal [facility] Urine cultureOrdered By: Brayan Villalobos on 02-02-2025 Bacteria identified Cx Nom (U) Presumptive E. coli Abnormal [facility] Gastroenterology Visit Repor ton 01-29-2025 Gastroenterology Visit Report [facility] [address] [place] [address] OFFICE VISIT Date of Service: 01/29/25 MR#: [id number] Acct: [id number] Name: AMANDA GRUBBS Rep #: [id number] : 1970 Provider: ANA mendiola Age/Sex: 54/F Location: [facility] Status: Signed Intake Vital Signs 01/16/25 05:54 [...] daily. Pa (more content not included)... Normal [facility] Colonoscopy Reporton [address] [facility] Medical Records Department [address] [place] [address] Colonoscopy Report MR#: [id number] Acct: [id number] Name: AMANDA GRUBBS Rep #: [id number] : 1970 54 From: Rock Pineda DO PCP: Dr. Franky Pearson DO Status:[facility] Patient Name: Amanda Grubbs Procedure [...] was poor. Procedure Code(s): --- Professional --- 12864, Colonoscopy, flexible; with biopsy, single or multiple CPT copyright 2021 [employer]. All rights reserved. The codes documented in this report are preliminary and upon jewelry engraver review may be revised to meet current compliance requirements. Rock Pineda DO 01/16/2025 7:19:59 AM This report has been signed electronically. Number of Addenda: 0 Note Initiated On: 01/16/2025 6:54 AM 01/16/25 0720 Date Rock Pineda DO Cosigner Signature: Date (if indicated) CC: Dr. Franky Pearson DO; Rock Pineda DO Date Dictated: 01/16/25 0654 Date Transcribed: Mechanical Meter Tester: SHAN Signed Normal [facility] EGD Reporton 01-16-[address] [facility] Medical Records Department [address] [place] [address] EGD Report MR#: [id number] Acct: [id number] Name: AMANDA GRUBBS Rep #: [id number] : 1970 54 From: Rock Pineda DO PCP: Dr. Franky Pearson DO Status:REG [facility] Patient Name: Amanda Grubbs Procedure Date: 01/16/2025 [...] pathology results. Procedure Code(s): --- Professional --- 99686, Esophagogastroduodenoscopy, flexible, transoral; with biopsy, single or multiple CPT copyright 2021 [employer]. All rights reserved. The codes documented in this report are preliminary and upon jewelry engraver review may be revised to meet current compliance requirements. Rock Pineda DO 01/16/2025 7:17:27 AM This report has been signed electronically. Number of Addenda: 0 Note Initiated On: 01/16/2025 6:23 AM 01/16/25717 Date Rock Pineda DO Cosigner Signature: Date (if indicated) CC: Dr. Franky Pearson DO; Rock Pineda DO Date Dictated: 01/16/25622 Date Transcribed: Mechanical Meter Tester: SHAN Signed [facility] Immunohistochemical Stainson 01-16-2025 Immunohistochemical Stains Patient Age/Sex Location Account Attending Physician AMANDA GRUBBS 54/F EN [id number] Rock Pineda DO Specimen: [id number] Received: 01/16/25 Status: ARLEEN Mitchell Num: [id number] Spec Type: EGD BIOPSY Subm Dr: Rock [...] developed and their performance characteristics determined by [facility]. They may not have been cleared [...] specimen is totally submitted in one cassette. AK 01/16/2025 CPT:01593o9,29338 Patient Age/Sex Location Account Attending Physician AMANDA GRUBBS 54/F EN [id number] Rock Pineda DO ADDENDUM Addendum 1 Entered: 01/21/25-1308 This addendum is to report the IHC stain for H pylori on part B: B. IHC negative for H pylori organisms. Addendum Signed (signature on file) Dr. Sima Pascal MD 01/21/25 4154 Patient Age/Sex Location Account Attending Physician AMANDA GRUBBS 54/F EN [id number] Rock Pineda DO Signed (signature on file) Dr. Sima Pascal MD 01/20/25 1233 Normal [facility] Comment on above: Performed By: #### MAXIMO DILLON ####[facility] [address] [place], [place], [address] MR/OP.PROVATon 01-16-2025 MR/OP.PROVAT [facility] Medical Records Department [address] [place] [address] Provation Physician Letter MR#: [id number] Acct: [id number] Name: AMANDA GRUBBS Rep #: [id number] : 1970 54 From: Rock Pineda DO PCP: Dr. Franky Pearson DO Status:REG [facility] 01/16/2025 Franky Pearson Do Re : Colonoscopy [...] Pineda DO Date Dictated: 01/16/25653 Date Transcribed: Mechanical Meter Tester: SHAN Signed [facility] MR/OP.PROVAT [facility] Medical Records Department [address] [place] [address] Provation Physician Letter MR#: [id number] Acct: [id number] Name: AMANDA GRUBBS Rep #: [id number] : 1970 54 From: Rock Pineda DO PCP: Dr. Franky Pearson DO Status:REG [facility] 01/16/2025 Franky Pearson Do Re : Upper [...] Pineda DO Date Dictated: 01/16/25622 Date Transcribed: Mechanical Meter Tester: RF Signed [facility] MR/POSTOP.ANEon 01-16-2025 MR/POSTOP.[facility] Medical Records Department [address] [place] [address] Anesthesia Postop Eval I 01/16/25718 MR#: [id number] Acct: [id number] Name: AMANDA GRUBBS FAN Rep #: [id number] : 1970 54 From: Frederic Nicole PCP: Dr. Franky Pearson, DO Status:REG SDC Y Race: C Location: [place] [address] Anesthesia: Postop Eval I Current Vital Signs [...] Frederic Barney Signature: Date CC: Signed Normal [facility] Surgery Specimen Level Sukhwinder 01-16-2025 Surgery Specimen Level IV Patient Age/Sex Location Account Attending Physician AMANDA GRUBBS 54/F EN [id number] Rock Pineda DO Specimen: [id number] Received: 01/16/25 Status: ARLEEN Mitchell Num: [id number] Spec Type: EGD BIOPSY Subm Dr: Rock [...] specimen is totally submitted in one cassette. AK 01/16/2025 CPT:27364k7,05442 Patient Age/Sex Location Account Attending Physician AMANDA GRUBBS 54/F EN [id number] Rock Pineda, DO Signed (signature on file) Dr. Sima Pascal MD 01/20/25 1233 [facility] Comment on above: Performed By: #### P MAXIMO LORENZO ####[facility] [address] [place], [address] MR/PAT.NATALIAaudie 01-13-2025 MR/PAT.NATALIA [facility] Medical Records Department [address] [place] [address] PAT - Anesthesia 01/13/25 1645 MR#: [id number] Acct: [id number] Name: AMANDA GRUBBS Rep #: [id number] : 1970 54 From: Selvin Slater MD PCP: Dr. Franky Pearson, DO Status:PRE SDC Y Race: C Location: EN Pre-Assessment Diagnosis/Proposed Procedure Planned Operative Procedure(s): COLONOSCOPY, EGD Anesthesia History Anesthesia History - farm reporter: Anesthesia History - farm reporter Hx Hospitalization No 01/13/25 13:38 Any Problems [...] take am of surgery PONV PONV - farm reporter: PONV - farm reporter Female No 01/13/25 13:38 HX of Motion [...] 11/26/24 09:57 Respiratory Assessment Respiratory Assessment - farm reporter: Respiratory Tract Infection Hx - farm reporter Hx Respiratory Tract Infection No 01/13/25 13:38 STOP Sleep Apnea STOP Sleep Apnea - farm reporter: STOP Sleep Apnea - farm reporter Hx Hypertension No 01/13/25 13:38 Hx Sleep [...] Tobacco Use History Tobacco Use History - farm reporter: Tobacco Use History - farm reporter Tobacco Use Smoking Status Never smoker 01/13/25 13:38 Hx Tobacco Use No 01/13/25 13:38 Years Smoking Packs Smoked per Day Smoking Cessation Date was within the last 15 years Hx Smoking Cessation Date Hx Smoking Cessation Counseling Hematologic Medial History Hematologic Hx - farm reporter: Hematologic Medical Hx - tank riveter Hx of Blood Transfusion No 01/13/25 13:38 [...] confused, unrespo /Reproduction History /Reproductive History - farm reporter: /Reproductive Hx- farm reporter Hx Now Gestational Age (in weeks): EDC: [...] Unknown Hist (more content not included)... Normal [facility] Chiropractic Reporton 2024 Chiropractic Report [facility] [address] [place] [address] OFFICE VISIT Date of Service: 01/05/25 MR#: [id number] Acct: [id number] Name: AMANDA GRUBBSN Rep #: [id number] : 1970 Provider: BUCK Méndez Age/Sex: 54/F [place] [facility] Status: Signed Intake Vital Signs 11/26/24 09:57 [...] #90 caps 11/26/24 Rx release peg 3350-sod sulf,piklx-ktn-cwm See Rx Instructions PO .COMPLEX #2 11/26/24 01/05/25 Rx 178.7-7.3-0.5-1.12-0.9 gram oral mL soln (Suflave) ramelteon 8 mg tablet (Rozerem) 8 mg PO QHS 11/26/24 01/05/25 Hist ory tirzepatide 2.5 mg/0.5 mL 2.5 mg subcut QWEEK 11/26/2401/05 History subcutaneous pen injector (Mounjaro) [facility] Medical History Lower respiratory tract [...] out of alignment. She participated in the [employer] run this past weekend but feels pretty [...] T5 and (more content not included)... Normal [facility] Chiropractic Reporton 2024 Chiropractic Report [facility] Chiropractic [facility] [place] [address] OFFICE VISIT Date of Service: 12/18/24 MR#: [id number] Acct: [id number] Name: AMANDA GRUBBS Rep #: [id number] : 1970 Provider: BUCK Méndez Age/Sex: 54/F Location: [facility] Status: Signed Intake Vital Signs 11/26/24 09:57 [...] #90 caps 11/26/24 Rx release peg 3350-sod sulf,rboqs-mzz-ugj See Rx Instructions PO .COMPLEX #2 11/26/24 12/18/24 Rx 178.7-7.3-0.5-1.12-0.9 gram oral mL soln (Suflave) ramelteon 8 mg tablet (Rozerem) 8 mg PO QHS 11/26/24 12/18/24 Hist ory tirzepatide 2.5 mg/0.5 mL 2.5 mg subcut QWEEK 11/26/2412/18 History subcutaneous pen injector (Dakota) [facility] Medical History Lower respiratory tract [...] (upper thor (more content not included)... Normal [facility] Gastroenterology Visit Repor ton 11-26-2024 Gastroenterology Visit Report [facility] [address] [place] [address] OFFICE VISIT Date of Service: 11/26/24 MR#: [id number] Acct: [id number] Name: AMANDA GRUBBS Rep #: [id number] : 1970 Provider: ANA mendiola Age/Sex: 54/F [place] [facility] [place] [facility] Status: Signed Intake Vital Signs 09/25/24 [...] Chief Complaint: abdomina pain, bloating, N/V, bleeding Boatswain Mate Required: No Accompanied by: Self Is patient [...] #90 caps 11/26/24 Rx release peg 3350-sod sulf,nbodr-upu-ldr See Rx Instructions PO .COMPLEX #2 11/26/24 [...] for headache(s (more content not included)... Normal [facility] Office Visit Reporton 2024 Office Visit Report [facility] [address] [place] [address] OFFICE VISIT Date of Service: 06/27/24 MR#: [id number] Acct: [id number] Patient: AMANDA GRUBBS Rep #: [id number] : 1970 Provider: BLU Clinton Age/Sex: 54/F Location[place] [facility] Status: Signed Intake Vital Signs 06/13/24 12:45 [...] Barney Signature: Date (if applicable) CC: Normal [facility] Chiropractic Reporton 2024 Chiropractic Report [facility] [address] [place] [address] OFFICE VISIT Date of Service: 09/25/24 MR#: [id number] Acct: [id number] Name: AMANDA GRUBBS Rep #: [id number] : 1970 Provider: BUCK Méndez Age/Sex: 54/F [place] [facility]: Signed Intake Vital Signs 08/19/24 07:30 [...] 10:43) Medications ???Medication ???Instructions ???Recorded ???Confirmed ???Type okzhfuwtgk-vwttxjrpvnggh-wx ffeine 1 cap PO Q8H PRN h/a [...] Yes cervical (more content not included)... Normal [facility] Pulmonary Visit Reporton Pulmonary Visit Report [facility] [place] [address] [place] [address] OFFICE VISIT Date of Service: 08/19/24 MR#: [id number] Acct: [id number] Name: AMANDA GRUBBS Rep #: [id number] : 1970 Provider: Moon Lyman NP Age/Sex: 54/F Location: [facility] Status: Signed Assessment and Plan Assessment and [...] is being referred from Rolan Valdes, Cardiology [facility]. Her PCP is Dr. Franky Pearson. She is a lifelong non-smoker. 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 She has never seen a bareback rider. The patient indicates that she had COVID [...] January 2024. The patient has imaging from [facility] including a chest CT on 2022 [...] BA, [place]URDOCK, ST, chest congest, sinus pressure Boatswain Mate Required: No DME Vendor: n/a Accompanied by: Self Is patient in pain?: No Allergies No Known Allerg (more content not included)... Normal [facility]gent Care Visit Reporton 0 08-13-2024 Urgent Care Visit Report [facility] [address], [address] [place] [address] OFFICE VISIT Date of Service: 08/13/24 MR#: [id number] Acct: [id number] Name: AMANDA GRUBBS Rep #: [id number] : 1970 Provider: ANA Carver Age/Sex: 54/F Location: [facility] Status: Signed Intake Vital Signs 06/13/24 12:45 08/13/24 08:34 Height 5 ft 3 in BP 120/60 Position Sitting Pulse 83 Temp 97.6 F L Temp Source Oral Pulse Oximetry (%) 99 Oxygen Delivery Method room air Intake Visit Reasons: CONCERN FOR PNEUMONIA Accompanied by: Self Allergies No Known Allergies Allergy (Verified 08/13/24 08:38) Medications ???Medication ???Instructions ???Recorded ???Confirmed ???Type poyzpcbqcc-dgejkpmnqpmmz-ju ffeine 1 cap PO Q8H PRN h/a [...] from her nose. Patient grandson had pneumonia. [facility] Medical History (Updated 08/13/24 @ [...] discuss possibl (more content not included)... Normal [facility] Office Visit Reporton 2024 Office Visit Report [facility] [address] [place] [address] OFFICE VISIT Date of Service: 07/23/24 MR#: [id number] Acct: [id number] Patient: AMANDA GRUBBS Rep #: [id number] : 1970 Provider: BLU Marshall Age/Sex: 54/F Location: [facility] Status: Signed Employer Purchased Covid Test Note: Patient here today for Covid Testing, requested by their Employer. Assessment and Plan Assessment and Plan Orders: Orders POC Cepheid Covid, FluAB, RSV Today POC Dior Rapid Strep A Today Plan Details Goals Barriers: Goals Decrease pain Decrease spasm Decrease HAs 07/23/24 1402 Date Angus HURT Cosigner Signature: Date (if applicable) CC: Normal [facility]gent [facility] Visit Reporton 0 07-23-2024 Urgent Care Visit Report [facility] [address], [address] [place] [address] OFFICE VISIT Date of Service: 07/23/24 MR#: [id number] Acct: [id number] Name: AMANDA GRUBBS Rep #: [id number] : 1970 Provider: BLU Marshall Age/Sex: 54/F Location: [facility] Status: Signed with Addenda ADDENDUM by BLU [...] No Known Allergies Allergy (Verified 07/23/24 11:59) [facility] Medical History Anginal pain Somatic [...] No close contacts with similar complaints. ???No ufwz-iwy-tlxwoar products taken to assist. No other associated [...] Acute streptococcal (more content not included)... Normal [facility]gent Care Visit Report [facility] [address], [address] [place] [address] OFFICE VISIT Date of Service: 07/23/24 MR#: [id number] Acct: [id number] Name: AMANDA GRUBBS Rep #: [id number] : 1970 Provider: BLU Marshall Age/Sex: 54/F Location: [facility] Status: Signed Intake Vital Signs 06/13/24 12:45 07/23/24 11:58 Height 5 ft 3 in BP 124/64 H Blood Pressure Location Lt brachial Position Sitting Respiration 16 Pulse 107 H Pulse Source NIBP Temp 97.9 F Temp Source Oral Pulse Oximetry (%) 95 Oxygen Delivery Method room air Intake Visit Reasons: COVID 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 denies fevers. pt resulted negative for cepheid IN ERROR. pt was FLU AND STREP POSITIVE. pt and provider has been advised of results [facility] Medical History Anginal pain Somatic [...] No Known Allergies Allergy (Verified 07/23/24 11:59) [facility] Medical History Anginal pain Somatic [...] No close contacts with similar complaints. ???No rnga-ndk-thrfxwm products taken t (more content not included)... Normal [facility] Vitamin B1, Thiamineon 07-08 VIT B1 THIAMINE 89.5 nmol/L Normal 66.5-200.0 [facility] Comment on above: Order Comment: Test( s) 404670-Mba. B1, Whole Bloodwas developed and its performance characteristicsdetermined by [employer]. It has not been cleared or approvedby the Food and Drug Administration. Performed By: #### L 3300.9900, L503.6030, L506.0400, L506.1000, L3300.8000, L100.0500, L503.6550, L503.0105, L501.9520, L500.4050, L501.9985, L500.4100, L506.0250 ####[facility] [address] [place], [place], [phone] Zinc, Plasma or Serumon 06-12 ZINC,PLASMA/SER 62 ug/dL Normal 44-115 [facility] Comment on above: Order Comment: Test( s) 779525-Qdv. B1, Whole Bloodwas developed and its performance characteristicsdetermined by [employer]. It has not been cleared or approvedby the Food and Drug Administration. Result Comment: Dete ction Limit = 5 Performed at: [facility] [id number] Disk Recoater: James Herrera MD, Phone: [phone] Performed By: #### L 3300.9900, L503.6030, L506.0400, L506.1000, L3300.8000, L100.0500, L503.6550, L503.0105, L501.9520, L500.4050, L501.9985, L500.4100, L506.0250 ####[facility] [address] [facility] [place], [place], [phone] CBC-Complete Blood Cnt No Di ffon 07-01-2024 Erythrocyte distribution width (RBC) [Ratio] 12.6 % Normal 11.6-14.6 [facility] Comment on above: Performed By: #### L 3300.9900, L503.6030, L506.0400, L506.1000, L3300.8000, L100.0500, L503.6550, L503.0105, L501.9520, L500.4050, L501.9985, L500.4100, L506.0250 ####[facility] [address] [facility]. [place], [place], [phone] Hematocrit (Bld) [Volume fraction] 36.8 % Low 37-47 [facility] Comment on above: Performed By: #### L 3300.9900, L503.6030, L506.0400, L506.1000, L3300.8000, L100.0500, L503.6550, L503.0105, L501.9520, L500.4050, L501.9985, L500.4100, L506.0250 ####[facility] [address] [facility]. [place], [place], [phone] Hemoglobin (Bld) [Mass/Vol] 11.7 g/dL Low 12.0-15.0 [facility] Comment on above: Performed By: #### L 3300.9900, L503.6030, L506.0400, L506.1000, L3300.8000, L100.0500, L503.6550, L503.0105, L501.9520, L500.4050, L501.9985, L500.4100, L506.0250 ####[facility] [address] [place], [place], [phone] MCH (RBC) [Entitic mass] 30.2 pg Normal 27.0-32.0 [facility] Comment on above: Performed By: #### L 3300.9900, L503.6030, L506.0400, L506.1000, L3300.8000, L100.0500, L503.6550, L503.0105, L501.9520, L500.4050, L501.9985, L500.4100, L506.0250 ####[facility] [address] [place], [place], [phone] MCHC (RBC) [Mass/Vol] 31.8 g/dL Low 32-36 [facility] Comment on above: Performed By: #### L 3300.9900, L503.6030, L506.0400, L506.1000, L3300.8000, L100.0500, L503.6550, L503.0105, L501.9520, L500.4050, L501.9985, L500.4100, L506.0250 ####[facility] [address] [place], [place], [phone] MCV (RBC) [Entitic vol] 94.8 fL Normal 81-99 [facility] Comment on above: Performed By: #### L 3300.9900, L503.6030, L506.0400, L506.1000, L3300.8000, L100.0500, L503.6550, L503.0105, L501.9520, L500.4050, L501.9985, L500.4100, L506.0250 ####[facility] [address] [place], [address] Platelet mean volume (Bld) [Entitic vol] 9.1 fL Normal 6.2-12.0 [facility] Comment on above: Performed By: #### L 3300.9900, L503.6030, L506.0400, L506.1000, L3300.8000, L100.0500, L503.6550, L503.0105, L501.9520, L500.4050, L501.9985, L500.4100, L506.0250 ####[facility] [address] [place], [address] Platelets (Bld) [#/Vol] 288 10*3/uL Normal 150-450 [facility] Comment on above: Performed By: #### L 3300.9900, L503.6030, L506.0400, L506.1000, L3300.8000, L100.0500, L503.6550, L503.0105, L501.9520, L500.4050, L501.9985, L500.4100, L506.0250 ####[facility] [address] [place], [address] RBC (Bld) [#/Vol] 3.88 10*6/uL Low 4.2-5.4 [facility] Comment on above: Performed By: #### L 3300.9900, L503.6030, L506.0400, L506.1000, L3300.8000, L100.0500, L503.6550, L503.0105, L501.9520, L500.4050, L501.9985, L500.4100, L506.0250 ####[facility] [address] [place], [address] RDW SD 43.9 fl Normal 35.1-43.9 [facility] Comment on above: Performed By: #### L 3300.9900, L503.6030, L506.0400, L506.1000, L3300.8000, L100.0500, L503.6550, L503.0105, L501.9520, L500.4050, L501.9985, L500.4100, L506.0250 ####[facility] [address] [place], [place], [phone] WBC (Bld) [#/Vol] 6.6 10*3/uL Normal 4.4-11.0 [facility] Comment on above: Performed By: #### L 3300.9900, L503.6030, L506.0400, L506.1000, L3300.8000, L100.0500, L503.6550, L503.0105, L501.9520, L500.4050, L501.9985, L500.4100, L506.0250 ####[facility] [address] [place], [place], [phone] Comprehensive Metabolic Prof ilon 07-01-2024 Albumin [Mass/Vol] 3.7 g/dL Normal 3.2-5.0 [facility] Comment on above: Order Comment: Y Performed By: #### L 3300.9900, L503.6030, L506.0400, L506.1000, L3300.8000, L100.0500, L503.6550, L503.0105, L501.9520, L500.4050, L501.9985, L500.4100, L506.0250 ####[facility] [address] [place], [address] Albumin/Globulin [Mass ratio] 0.9 {ratio} Normal 0.9-2.4 [facility] Comment on above: Order Comment: Y Performed By: #### L 3300.9900, L503.6030, L506.0400, L506.1000, L3300.8000, L100.0500, L503.6550, L503.0105, L501.9520, L500.4050, L501.9985, L500.4100, L506.0250 ####[facility] [address] [place], [place], [phone] ALK P 108 U/L Normal 45-117 [facility] Comment on above: Order Comment: Y Performed By: #### L 3300.9900, L503.6030, L506.0400, L506.1000, L3300.8000, L100.0500, L503.6550, L503.0105, L501.9520, L500.4050, L501.9985, L500.4100, L506.0250 ####[facility] [address] [place], [place], [phone] ALT [Catalytic activity/Vol] 18 U/L Normal 13-56 [facility] Comment on above: Order Comment: Y Performed By: #### L 3300.9900, L503.6030, L506.0400, L506.1000, L3300.8000, L100.0500, L503.6550, L503.0105, L501.9520, L500.4050, L501.9985, L500.4100, L506.0250 ####[facility] [address] [place], [place], [phone] AST [Catalytic activity/Vol] 12 U/L Low 15-37 [facility] Comment on above: Order Comment: Y Performed By: #### L 3300.9900, L503.6030, L506.0400, L506.1000, L3300.8000, L100.0500, L503.6550, L503.0105, L501.9520, L500.4050, L501.9985, L500.4100, L506.0250 ####[facility] [address] [place], [place], [phone] Bilirubin [Mass/Vol] 0.20 mg/dL Normal 0.20-1.00 [facility] Comment on above: Order Comment: Y Result Comment: For patients on eltrombopag therapy, use of Dimension Rice TBIL is not recommended. Performed By: #### L 3300.9900, L503.6030, L506.0400, L506.1000, L3300.8000, L100.0500, L503.6550, L503.0105, L501.9520, L500.4050, L501.9985, L500.4100, L506.0250 ####[facility] [address] [place], [address] BUN/CRE 9.7 RATIO Low 10-20 [facility] Comment on above: Order Comment: Y Performed By: #### L 3300.9900, L503.6030, L506.0400, L506.1000, L3300.8000, L100.0500, L503.6550, L503.0105, L501.9520, L500.4050, L501.9985, L500.4100, L506.0250 ####[facility] [address] [place], [place], [phone] CA,Total 9.5 mg/dL Normal 8.5-10.1 [facility] Comment on above: Order Comment: Y Performed By: #### L 3300.9900, L503.6030, L506.0400, L506.1000, L3300.8000, L100.0500, L503.6550, L503.0105, L501.9520, L500.4050, L501.9985, L500.4100, L506.0250 ####[facility] [address] [place], [place], [phone] Chloride [Moles/Vol] 106 mmol/L Normal 98-107 [facility] Comment on above: Order Comment: Y Performed By: #### L 3300.9900, L503.6030, L506.0400, L506.1000, L3300.8000, L100.0500, L503.6550, L503.0105, L501.9520, L500.4050, L501.9985, L500.4100, L506.0250 ####[facility] [address] [place], [place], [phone] CO2 [Moles/Vol] 27.0 mmol/L Normal 21.0-32.0 [facility] Comment on above: Order Comment: Y Performed By: #### L 3300.9900, L503.6030, L506.0400, L506.1000, L3300.8000, L100.0500, L503.6550, L503.0105, L501.9520, L500.4050, L501.9985, L500.4100, L506.0250 ####[facility] [address] [facility] [place], [address] Creatinine [Mass/Vol] 0.93 mg/dL Normal 0.55-1.02 [facility] Comment on above: Order Comment: Y Result Comment: The validity of the calculated GFR GFRAA in patients over 70 years has not been determined. Clinical correlation is essential. Performed By: #### L 3300.9900, L503.6030, L506.0400, L506.1000, L3300.8000, L100.0500, L503.6550, L503.0105, L501.9520, L500.4050, L501.9985, L500.4100, L506.0250 ####[facility] [address] [place], [place], [phone] EST GFR - AA 81 mL/min Normal >60 [facility] Comment on above: Order Comment: Y Result Comment: Afri can Pakistani GFR Calc Performed By: #### L 3300.9900, L503.6030, L506.0400, L506.1000, L3300.8000, L100.0500, L503.6550, L503.0105, L501.9520, L500.4050, L501.9985, L500.4100, L506.0250 ####[facility] [address] [place], [place], [phone] GAP 8 Normal 5-15 [facility] Comment on above: Order Comment: Y Performed By: #### L 3300.9900, L503.6030, L506.0400, L506.1000, L3300.8000, L100.0500, L503.6550, L503.0105, L501.9520, L500.4050, L501.9985, L500.4100, L506.0250 ####[facility] [address] [place], [address] GFR/1.73 sq M.predicted among non-blacks MDRD (S/P/Bld) [Vol rate/Area] 67 mL/min/{1.73_m2} Normal >60 [facility] Comment on above: Order Comment: Y Result Comment: Non- GFR Calc Performed By: #### L 3300.9900, L503.6030, L506.0400, L506.1000, L3300.8000, L100.0500, L503.6550, L503.0105, L501.9520, L500.4050, L501.9985, L500.4100, L506.0250 ####[facility] [address] [place], [address] Globulin (S) [Mass/Vol] 4.0 g/dL Normal 2.2-4.2 [facility] Comment on above: Order Comment: Y Performed By: #### L 3300.9900, L503.6030, L506.0400, L506.1000, L3300.8000, L100.0500, L503.6550, L503.0105, L501.9520, L500.4050, L501.9985, L500.4100, L506.0250 ####[facility] [address] [place], [address] Glucose [Mass/Vol] 148 mg/dL High 74-106 [facility] Comment on above: Order Comment: Y Result Comment: Fast ing Glucose result greater than or equal to 126 mg/dL suggests DIABETES MELLITUS per A.D.A. criteria. Performed By: #### L 3300.9900, L503.6030, L506.0400, L506.1000, L3300.8000, L100.0500, L503.6550, L503.0105, L501.9520, L500.4050, L501.9985, L500.4100, L506.0250 ####[facility] [address] [place], [address] Potassium [Moles/Vol] 4.3 mmol/L Normal 3.5-5.1 [facility] Comment on above: Order Comment: Y Performed By: #### L 3300.9900, L503.6030, L506.0400, L506.1000, L3300.8000, L100.0500, L503.6550, L503.0105, L501.9520, L500.4050, L501.9985, L500.4100, L506.0250 ####[facility] [address] [place], [address] Sodium [Moles/Vol] 141 mmol/L Normal 136-145 [facility] Comment on above: Order Comment: Y Performed By: #### L 3300.9900, L503.6030, L506.0400, L506.1000, L3300.8000, L100.0500, L503.6550, L503.0105, L501.9520, L500.4050, L501.9985, L500.4100, L506.0250 ####[facility] [address] [place], [address] T PROT 7.7 g/dL Normal 6.4-8.2 [facility] Comment on above: Order Comment: Y Performed By: #### L 3300.9900, L503.6030, L506.0400, L506.1000, L3300.8000, L100.0500, L503.6550, L503.0105, L501.9520, L500.4050, L501.9985, L500.4100, L506.0250 ####[facility] [address] [place], [place], [phone] Urea nitrogen [Mass/Vol] 9 mg/dL Normal 7-18 [facility] Comment on above: Order Comment: Y Performed By: #### L 3300.9900, L503.6030, L506.0400, L506.1000, L3300.8000, L100.0500, L503.6550, L503.0105, L501.9520, L500.4050, L501.9985, L500.4100, L506.0250 ####[facility] [address] [place], [place], [phone] Ferritinon 07-01-2024 Ferritin [Mass/Vol] 34 ng/mL Normal 8-252 [facility] Comment on above: Order Comment: Y Performed By: #### L 3300.9900, L503.6030, L506.0400, L506.1000, L3300.8000, L100.0500, L503.6550, L503.0105, L501.9520, L500.4050, L501.9985, L500.4100, L506.0250 ####[facility] [address] [place], [place], [phone] Folates, (Folic Acid)on 06-12 FOLATES 14.10 ng/mL Normal 3.1-55.4 [facility] Comment on above: Order Comment: Y Performed By: #### L 3300.9900, L503.6030, L506.0400, L506.1000, L3300.8000, L100.0500, L503.6550, L503.0105, L501.9520, L500.4050, L501.9985, L500.4100, L506.0250 ####[facility] [address] [place], [place], [phone] Hemoglobin A1con 07-01-2024 HbA1c (Bld) [Mass fraction] 5.4 % Normal 3.8-5.6 [facility] Comment on above: Result Comment: Norm al < 5.7 % Prediabetic 5.7 - 6.4 % Diabetic >or= 6.5 % Please note range changes. Performed By: #### L 3300.9900, L503.6030, L506.0400, L506.1000, L3300.8000, L100.0500, L503.6550, L503.0105, L501.9520, L500.4050, L501.9985, L500.4100, L506.0250 ####[facility] [address] [place], [address] Iron+Iron Binding Capacityon 07-01-2024 Iron [Mass/Vol] 53 ug/dL Normal 50-170 [facility] Comment on above: Order Comment: Y Performed By: #### L 3300.9900, L503.6030, L506.0400, L506.1000, L3300.8000, L100.0500, L503.6550, L503.0105, L501.9520, L500.4050, L501.9985, L500.4100, L506.0250 ####[facility] [address] [place], [place], [phone] IRON SATURATION 16.3 Normal 15.0-55.0 [facility] Comment on above: Order Comment: Y Performed By: #### L 3300.9900, L503.6030, L506.0400, L506.1000, L3300.8000, L100.0500, L503.6550, L503.0105, L501.9520, L500.4050, L501.9985, L500.4100, L506.0250 ####[facility] [address] [place], [place], [phone] TIBC 326 ug/dL Normal 250-450 [facility] Comment on above: Order Comment: Y Performed By: #### L 3300.9900, L503.6030, L506.0400, L506.1000, L3300.8000, L100.0500, L503.6550, L503.0105, L501.9520, L500.4050, L501.9985, L500.4100, L506.0250 ####[facility] [address] [place], [place], [phone] Lipid Profileon 07-01-2024 Cholesterol [Mass/Vol] 169 mg/dL Normal 200 [facility] Comment on above: Order Comment: Y Result Comment: <200 mg/dL Desirable 200-240 mg/dL Borderline >240 mg/dL High Risk Performed By: #### L 3300.9900, L503.6030, L506.0400, L506.1000, L3300.8000, L100.0500, L503.6550, L503.0105, L501.9520, L500.4050, L501.9985, L500.4100, L506.0250 ####[facility] [address] [place], [place], [phone] Cholesterol in HDL [Mass/Vol] 77 mg/dL Normal [facility] Comment on above: Order Comment: Y Result Comment: The drugs N-Acetylcysteine and Metamizole may falsely depress this assay. Reference Range HDL <40 mg/dL Low HDL Cholesterol HDL >or= 60 mg/dL High HDL Cholesterol Performed By: #### L 3300.9900, L503.6030, L506.0400, L506.1000, L3300.8000, L100.0500, L503.6550, L503.0105, L501.9520, L500.4050, L501.9985, L500.4100, L506.0250 ####[facility] [address] [place], [address] Cholesterol in LDL [Mass/Vol] 71 mg/dL Normal 0-130 [facility] Comment on above: Order Comment: Y Performed By: #### L 3300.9900, L503.6030, L506.0400, L506.1000, L3300.8000, L100.0500, L503.6550, L503.0105, L501.9520, L500.4050, L501.9985, L500.4100, L506.0250 ####[facility] [address] [place], [address] Cholesterol in VLDL [Mass/Vol] 21 mg/dL Normal 5-40 [facility] Comment on above: Order Comment: Y Performed By: #### L 3300.9900, L503.6030, L506.0400, L506.1000, L3300.8000, L100.0500, L503.6550, L503.0105, L501.9520, L500.4050, L501.9985, L500.4100, L506.0250 ####[facility] [address] [place], [address] Triglyceride [Mass/Vol] 105 mg/dL Normal [facility] Comment on above: Order Comment: Y Result Comment: The drugs N-Acetylcysteine and Metamizole may falsely depress this assay. Serum Triglycerides Reference Interval Normal <150 mg/dL Borderline high 150 - 199 mg/dL High 200 - 499 mg/dL Very High > or = 500 mg/dL Performed By: #### L 3300.9900, L503.6030, L506.0400, L506.1000, L3300.8000, L100.0500, L503.6550, L503.0105, L501.9520, L500.4050, L501.9985, L500.4100, L506.0250 ####[facility] [address] [place], [address] T4 Free Directon 07-01-2024 T4 FREE DIRECT 0.87 ng/dL Normal 0.76-1.46 [facility] Comment on above: Order Comment: Y Performed By: #### L 3300.9900, L503.6030, L506.0400, L506.1000, L3300.8000, L100.0500, L503.6550, L503.0105, L501.9520, L500.4050, L501.9985, L500.4100, L506.0250 ####[facility] [address] [place], [address] Thyroid Stim Hormone (TSH)on 07-01-2024 TSH 0.846 uIU/mL Normal 0.358-3.74 0 [facility] Comment on above: Order Comment: Y Performed By: #### L 3300.9900, L503.6030, L506.0400, L506.1000, L3300.8000, L100.0500, L503.6550, L503.0105, L501.9520, L500.4050, L501.9985, L500.4100, L506.0250 ####[facility] [address] [place], [address] Vitamin B12on 07-01-2024 Cobalamin (Vitamin B12) [Mass/Vol] 408 pg/mL Normal 211-911 [facility] Comment on above: Performed By: #### L 3300.9900, L503.6030, L506.0400, L506.1000, L3300.8000, L100.0500, L503.6550, L503.0105, L501.9520, L500.4050, L501.9985, L500.4100, L506.0250 ####[facility] [address] [place], [address] Vitamin D,25 Hydroxyon 07-01 Vitamin D 25-OH 29.0 ng/mL Normal [facility] Comment on above: Result Comment: Araceli min D 25(OH) Status Range Deficiency <20 ng/mL (50nmol/L) Insufficiency 20 - 30 ng/mL (50 - 75 nmol/L) Sufficiency 30 - 100 ng/mL (75 - 250 nmol/L) Toxicity >100 ng/mL (>250 nmol/L) Performed By: #### L 3300.9900, L503.6030, L506.0400, L506.1000, L3300.8000, L100.0500, L503.6550, L503.0105, L501.9520, L500.4050, L501.9985, L500.4100, L506.0250 ####[facility] [address] [facility] [place], [address] Chest without Contraston Chest without Contrast [facility] Services [address] [place] [address] Chest without Contrast MR#: [id number] Acct: [id number] Name: AMANDA GRUBBS Rep #: [id number] : 1970 F 54 From: Kervin marvin MD PCP: Dr. Franky Pearson, DO Status: REG CLI Study: Chest without Contrast Date of Exam: 06/30/24 Exam# [id number] Ordering Dr: Rolan Valdes NP PSYCHIATRIC TECH-C [id number] STUDY: CT CHEST WITHOUT CONTRAST REASON FOR [...] CC: ANA Valdes; Dr. 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 [address] OFFICE VISIT Date of Service: 06/27/24 MR#: [id number] Acct: [id number] Patient: AMANDA GRUBBS Rep #: [id number] : 1970 Provider: BLU Clinton Age/Sex: 54/F Location: [facility] Status: Signed Employer Purchased Covid Test Note: Patient here today for Covid Testing, requested by their Employer. Assessment and Plan Assessment and Plan Orders: Orders POC Cepheid Covid, FluAB, RSV Today Plan Details Goals Barriers: Goals Decrease pain Decrease spasm Decrease HAs 06/27/24 1023 Date Hans HURT Cosigner Signature: Date (if applicable) CC: Normal [facility] Urgent Care Visit Reporton 0 06-27-2024 Urgent Care Visit Report [facility] [address], [address] [place] [address] OFFICE VISIT Date of Service: 06/27/24 MR#: [id number] Acct: [id number] Name: AMANDA GRUBBS Rep #: [id number] : 1970 Provider: BLU Clinton Age/Sex: 54/F Location: [facility] Status: Signed Intake Vital Signs 06/13/24 12:45 06/27/24 10:16 Height 5 ft 3 in BP 114/70 Blood Pressure Location Lt brachial Position Sitting Respiration 17 Pulse 88 Pulse Source NIBP Temp 97.8 F Temp Source Oral Pulse Oximetry (%) 98 Oxygen Delivery Method room air Intake Visit Reasons: COUGH, HEADACHE Chief Complaint: cough, [place], ST, chest congest, BA, chills Boatswain Mate Required: No Is patient in pain?: No [...] Hans HURT (more content not included)... Normal [facility] CREATININE FINGERSTICKon CREATININE WB < 1.0 Normal 0.55-1.02 [facility] Comment on above: Performed By: #### L 9100.0200 ####[facility] [address] [facility] [place], [address] EGFR WB > 60.0000 Normal >60 [facility] Comment on above: Performed By: #### L 9100.0200 ####[facility] [address] [facility]. [place], [place], [address] Coronary Angiography CTon Coronary Angiography CT [facility] Services [address] [place] [address] 06/13/24 1556 MR#: [id number] Acct: [id number] Name: AMANDA GRUBBS Rep #: [id number] : 1970 53 From: Allan Coleman MD [...] DO; Dr. Franky Hollingsworth MD Signed Normal [facility] Limited Chest CT Cardiac Onl yon 06-13-[address] Cardiac Only [facility] Imaging Services [address] [place] [id number] Cardiac Only MR#: [id number] Acct: [id number] Name: AMANDA GRUBBS Rep #: [id number] : 1970 F 53 From: Kervin marvin MD PCP: Dr. Franky Pearson DO Status: REG CLI Study: Limited Chest CT Cardiac Only Date of Exam: Exam# [id number] Ordering Dr: Franky Hollingsworth MD [id number] STUDY: CT CHEST WITH CONTRAST REASON FOR [...] 11:17 EST Reading Location ID and State: [address] [place] [address] , Service support , CC: Dr. Franky Pearson DO; Dr. 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 [address] OFFICE VISIT Date of Service: 05/13/24 1633 MR#: [id number] Acct: [id number] Name: AMANDA GRUBBS Rep #: [id number] : 1970 From: Santiago Og MD Age/Sex: 53/F Location: [facility] Status: Signed HPI Subjective Date of [...] 16:36) Medications ???Medication ???Instructions ???Recorded ???Confirmed ???Type vekmkbnepg-yfeayuhdykieb-qy ffeine 1 cap PO Q8H PRN 01/16/23 [...] 05/13/241707 Date (more content not included)... Normal [facility] L501.5101on 05-08-2024 GGTP 66 IU/L Abnormal 0-60 [facility] Comment on above: Order Comment: ADD T O BLOOD IN LAB. THANK YOU!! Result Comment: Perf ormed at: - [facility] [address] [id number] Disk Recoater: Robson Cedeno PhD, Phone: [phone] Performed By: #### L 501.5103 #### [facility] [address] [place], [place], [address] CBC W/Diff, Automatedon 04-12 Absolute Lymph 2.06 X10 3/uL Normal 0.83-4.51 [facility] Comment on above: Performed By: #### L 101.9900, L503.6550, L500.4050, L100.0100, L100.9950, L501.6710, L503.6030, L501.5200, L501.2300, L503.0105, L504.2610, L506.0250 ####[facility] [address] [place], [place], [address] Absolute Neut 3.7 X10 3/uL Normal 2.0-7.7 [facility] Comment on above: Performed By: #### L 101.9900, L503.6550, L500.4050, L100.0100, L100.9950, L501.6710, L503.6030, L501.5200, L501.2300, L503.0105, L504.2610, L506.0250 ####[facility] [address] [place], [address](478) Basophils/100 WBC (Bld) 0.6 % Normal 0-1 [facility] Comment on above: Performed By: #### L 101.9900, L503.6550, L500.4050, L100.0100, L100.9950, L501.6710, L503.6030, L501.5200, L501.2300, L503.0105, L504.2610, L506.0250 ####[facility] [address] [place], [address](679) Eosinophils/100 WBC (Bld) 1.1 % Normal 0-5 [facility] Comment on above: Performed By: #### L 101.9900, L503.6550, L500.4050, L100.0100, L100.9950, L501.6710, L503.6030, L501.5200, L501.2300, L503.0105, L504.2610, L506.0250 ####[facility] [address] [place], [address] Erythrocyte distribution width (RBC) [Ratio] 12.4 % Normal 11.6-14.6 [facility] Comment on above: Performed By: #### L 101.9900, L503.6550, L500.4050, L100.0100, L100.9950, L501.6710, L503.6030, L501.5200, L501.2300, L503.0105, L504.2610, L506.0250 ####[facility] [address] [place], [address](284) Hematocrit (Bld) [Volume fraction] 37.6 % Normal 37-47 [facility] Comment on above: Performed By: #### L 101.9900, L503.6550, L500.4050, L100.0100, L100.9950, L501.6710, L503.6030, L501.5200, L501.2300, L503.0105, L504.2610, L506.0250 ####[facility] [address] [place], [address] Hemoglobin (Bld) [Mass/Vol] 12.4 g/dL Normal 12.0-15.0 [facility] Comment on above: Performed By: #### L 101.9900, L503.6550, L500.4050, L100.0100, L100.9950, L501.6710, L503.6030, L501.5200, L501.2300, L503.0105, L504.2610, L506.0250 ####[facility] [address] [facility] [place], [address] IG% 0.200 Normal 0.0-0.9 [facility] Comment on above: Result Comment: IG% - Immature Granulocytes (promyelocytes, myelocytes and metamyelocytes) > 1% indicates that a LEFT SHIFT is Present. Performed By: #### L 101.9900, L503.6550, L500.4050, L100.0100, L100.9950, L501.6710, L503.6030, L501.5200, L501.2300, L503.0105, L504.2610, L506.0250 ####[facility] [address] [facility] [place], [address] Lymphocytes/100 WBC (Bld) 32.6 % Normal 19-41 [facility] Comment on above: Performed By: #### L 101.9900, L503.6550, L500.4050, L100.0100, L100.9950, L501.6710, L503.6030, L501.5200, L501.2300, L503.0105, L504.2610, L506.0250 ####[facility] [address] [facility] [place], [address] MCH (RBC) [Entitic mass] 30.7 pg Normal 27.0-32.0 [facility] Comment on above: Performed By: #### L 101.9900, L503.6550, L500.4050, L100.0100, L100.9950, L501.6710, L503.6030, L501.5200, L501.2300, L503.0105, L504.2610, L506.0250 ####[facility] [address] [place], [address] MCHC (RBC) [Mass/Vol] 33.0 g/dL Normal 32-36 [facility] Comment on above: Performed By: #### L 101.9900, L503.6550, L500.4050, L100.0100, L100.9950, L501.6710, L503.6030, L501.5200, L501.2300, L503.0105, L504.2610, L506.0250 ####[facility] [address] [place], [address]( MCV (RBC) [Entitic vol] 93.1 fL Normal 81-99 [facility] Comment on above: Performed By: #### L 101.9900, L503.6550, L500.4050, L100.0100, L100.9950, L501.6710, L503.6030, L501.5200, L501.2300, L503.0105, L504.2610, L506.0250 ####[facility] [address] [place], [address]( Monocytes/100 WBC (Bld) 7.3 % Normal 0-10 [facility] Comment on above: Performed By: #### L 101.9900, L503.6550, L500.4050, L100.0100, L100.9950, L501.6710, L503.6030, L501.5200, L501.2300, L503.0105, L504.2610, L506.0250 ####[facility] [address] [place], [address] Neutrophils/100 WBC (Bld) 58.2 % Normal 47-70 [facility] Comment on above: Performed By: #### L 101.9900, L503.6550, L500.4050, L100.0100, L100.9950, L501.6710, L503.6030, L501.5200, L501.2300, L503.0105, L504.2610, L506.0250 ####[facility] [address] [facility] [place], [address] Nucleated RBC (Bld) [#/Vol] 0 10*3/uL Normal 0-5 [facility] Comment on above: Performed By: #### L 101.9900, L503.6550, L500.4050, L100.0100, L100.9950, L501.6710, L503.6030, L501.5200, L501.2300, L503.0105, L504.2610, L506.0250 ####[facility] [address] [place], [address] Platelet mean volume (Bld) [Entitic vol] 9.1 fL Normal 6.2-12.0 [facility] Comment on above: Performed By: #### L 101.9900, L503.6550, L500.4050, L100.0100, L100.9950, L501.6710, L503.6030, L501.5200, L501.2300, L503.0105, L504.2610, L506.0250 ####[facility] [address] [place], [address] Platelets (Bld) [#/Vol] 305 10*3/uL Normal 150-450 [facility] Comment on above: Performed By: #### L 101.9900, L503.6550, L500.4050, L100.0100, L100.9950, L501.6710, L503.6030, L501.5200, L501.2300, L503.0105, L504.2610, L506.0250 ####[facility] [address] [place], [place], [phone](304) RBC (Bld) [#/Vol] 4.04 10*6/uL Low 4.2-5.4 [facility] Comment on above: Performed By: #### L 101.9900, L503.6550, L500.4050, L100.0100, L100.9950, L501.6710, L503.6030, L501.5200, L501.2300, L503.0105, L504.2610, L506.0250 ####[facility] [address] [place], [place], [phone](557) RDW SD 42.5 fl Normal 35.1-43.9 [facility] Comment on above: Performed By: #### L 101.9900, L503.6550, L500.4050, L100.0100, L100.9950, L501.6710, L503.6030, L501.5200, L501.2300, L503.0105, L504.2610, L506.0250 ####[facility] [address] [place], [place], [phone](155) WBC (Bld) [#/Vol] 6.3 10*3/uL Normal 4.4-11.0 [facility] Comment on above: Performed By: #### L 101.9900, L503.6550, L500.4050, L100.0100, L100.9950, L501.6710, L503.6030, L501.5200, L501.2300, L503.0105, L504.2610, L506.0250 ####[facility] [address] [place], [place], [phone] CRPon 05-06-2024 C-REACTIVE PROT < 2.90 Normal 0.0-3.0 [facility] Comment on above: Order Comment: UNKNO WN1N Result Comment: C-Re active Protein (CRP) provides useful information for the diagnosis, therapy and monitoring of inflammatory processes and associated diseases. For the evaluation of Relative Risk for Cardiovascular Disease, a High Sensitivity CRP (HSCRP) should be ordered. Performed By: #### L 101.9900, L503.6550, L500.4050, L100.0100, L100.9950, L501.6710, L503.6030, L501.5200, L501.2300, L503.0105, L504.2610, L506.0250 ####[facility] [address] [place], [address] Comprehensive Metabolic Prof ilon 05-06-2024 Albumin [Mass/Vol] 4.1 g/dL Normal 3.2-5.0 [facility] Comment on above: Order Comment: UNKNO WN1N Performed By: #### L 101.9900, L503.6550, L500.4050, L100.0100, L100.9950, L501.6710, L503.6030, L501.5200, L501.2300, L503.0105, L504.2610, L506.0250 ####[facility] [address] [place], [place], [phone] Albumin/Globulin [Mass ratio] 1.2 {ratio} Normal 0.9-2.4 [facility] Comment on above: Order Comment: UNKNO WN1N Performed By: #### L 101.9900, L503.6550, L500.4050, L100.0100, L100.9950, L501.6710, L503.6030, L501.5200, L501.2300, L503.0105, L504.2610, L506.0250 ####[facility] [address] [place], [address] ALK P 88 U/L Normal 45-117 [facility] Comment on above: Order Comment: UNKNO WN1N Performed By: #### L 101.9900, L503.6550, L500.4050, L100.0100, L100.9950, L501.6710, L503.6030, L501.5200, L501.2300, L503.0105, L504.2610, L506.0250 ####[facility] [address] [place], [address] ALT [Catalytic activity/Vol] 89 U/L High 13-56 [facility] Comment on above: Order Comment: UNKNO WN1N Performed By: #### L 101.9900, L503.6550, L500.4050, L100.0100, L100.9950, L501.6710, L503.6030, L501.5200, L501.2300, L503.0105, L504.2610, L506.0250 ####[facility] [address] [place], [place], [phone] AST [Catalytic activity/Vol] 46 U/L High 15-37 [facility] Comment on above: Order Comment: UNKNO WN1N Performed By: #### L 101.9900, L503.6550, L500.4050, L100.0100, L100.9950, L501.6710, L503.6030, L501.5200, L501.2300, L503.0105, L504.2610, L506.0250 ####[facility] [address] [place], [place], [phone] Bilirubin [Mass/Vol] 0.20 mg/dL Normal 0.20-1.00 [facility] Comment on above: Order Comment: UNKNO WN1N Result Comment: For patients on eltrombopag therapy, use of Dimension Rice TBIL is not recommended. Performed By: #### L 101.9900, L503.6550, L500.4050, L100.0100, L100.9950, L501.6710, L503.6030, L501.5200, L501.2300, L503.0105, L504.2610, L506.0250 ####[facility] [address] [place], [place], [phone](508) BUN/CRE 7.7 RATIO Low 10-20 [facility] Comment on above: Order Comment: UNKNO WN1N Performed By: #### L 101.9900, L503.6550, L500.4050, L100.0100, L100.9950, L501.6710, L503.6030, L501.5200, L501.2300, L503.0105, L504.2610, L506.0250 ####[facility] [address] [place], [place], [phone](518) CA,Total 9.6 mg/dL Normal 8.5-10.1 [facility] Comment on above: Order Comment: UNKNO WN1N Performed By: #### L 101.9900, L503.6550, L500.4050, L100.0100, L100.9950, L501.6710, L503.6030, L501.5200, L501.2300, L503.0105, L504.2610, L506.0250 ####[facility] [address] [place], [place], [phone](418) Chloride [Moles/Vol] 107 mmol/L Normal 98-107 [facility] Comment on above: Order Comment: UNKNO WN1N Performed By: #### L 101.9900, L503.6550, L500.4050, L100.0100, L100.9950, L501.6710, L503.6030, L501.5200, L501.2300, L503.0105, L504.2610, L506.0250 ####[facility] [address] [place], [place], [phone](817) CO2 [Moles/Vol] 26.0 mmol/L Normal 21.0-32.0 [facility] Comment on above: Order Comment: UNKNO WN1N Performed By: #### L 101.9900, L503.6550, L500.4050, L100.0100, L100.9950, L501.6710, L503.6030, L501.5200, L501.2300, L503.0105, L504.2610, L506.0250 ####[facility] [address] [place], [place], [phone](235) Creatinine [Mass/Vol] 0.78 mg/dL Normal 0.55-1.02 [facility] Comment on above: Order Comment: UNKNO WN1N Result Comment: The validity of the calculated GFR GFRAA in patients over 70 years has not been determined. Clinical correlation is essential. Performed By: #### L 101.9900, L503.6550, L500.4050, L100.0100, L100.9950, L501.6710, L503.6030, L501.5200, L501.2300, L503.0105, L504.2610, L506.0250 ####[facility] [address] [place], [place], [phone] EST GFR - AA 99 mL/min Normal >60 [facility] Comment on above: Order Comment: UNKNO WN1N Result Comment: Afri can Pakistani GFR Calc Performed By: #### L 101.9900, L503.6550, L500.4050, L100.0100, L100.9950, L501.6710, L503.6030, L501.5200, L501.2300, L503.0105, L504.2610, L506.0250 ####[facility] [address] [place], [place], [phone](371) GAP 7 Normal 5-15 [facility] Comment on above: Order Comment: UNKNO WN1N Performed By: #### L 101.9900, L503.6550, L500.4050, L100.0100, L100.9950, L501.6710, L503.6030, L501.5200, L501.2300, L503.0105, L504.2610, L506.0250 ####[facility] [address] [place], [place], [phone](998) GFR/1.73 sq M.predicted among non-blacks MDRD (S/P/Bld) [Vol rate/Area] 82 mL/min/{1.73_m2} Normal >60 [facility] Comment on above: Order Comment: UNKNO WN1N Result Comment: Non- GFR Calc Performed By: #### L 101.9900, L503.6550, L500.4050, L100.0100, L100.9950, L501.6710, L503.6030, L501.5200, L501.2300, L503.0105, L504.2610, L506.0250 ####[facility] [address] [place], [place], [phone](322) Globulin (S) [Mass/Vol] 3.5 g/dL Normal 2.2-4.2 [facility] Comment on above: Order Comment: UNKNO WN1N Performed By: #### L 101.9900, L503.6550, L500.4050, L100.0100, L100.9950, L501.6710, L503.6030, L501.5200, L501.2300, L503.0105, L504.2610, L506.0250 ####[facility] [address] [place], [place], [phone](915) Glucose [Mass/Vol] 75 mg/dL Normal 74-106 [facility] Comment on above: Order Comment: UNKNO WN1N Performed By: #### L 101.9900, L503.6550, L500.4050, L100.0100, L100.9950, L501.6710, L503.6030, L501.5200, L501.2300, L503.0105, L504.2610, L506.0250 ####[facility] [address] [place], [address] Potassium [Moles/Vol] 4.3 mmol/L Normal 3.5-5.1 [facility] Comment on above: Order Comment: UNKNO WN1N Performed By: #### L 101.9900, L503.6550, L500.4050, L100.0100, L100.9950, L501.6710, L503.6030, L501.5200, L501.2300, L503.0105, L504.2610, L506.0250 ####[facility] [address] [place], [place], [phone](012) Sodium [Moles/Vol] 140 mmol/L Normal 136-145 [facility] Comment on above: Order Comment: UNKNO WN1N Performed By: #### L 101.9900, L503.6550, L500.4050, L100.0100, L100.9950, L501.6710, L503.6030, L501.5200, L501.2300, L503.0105, L504.2610, L506.0250 ####[facility] [address] [place], [place], [phone](267) T PROT 7.6 g/dL Normal 6.4-8.2 [facility] Comment on above: Order Comment: UNKNO WN1N Performed By: #### L 101.9900, L503.6550, L500.4050, L100.0100, L100.9950, L501.6710, L503.6030, L501.5200, L501.2300, L503.0105, L504.2610, L506.0250 ####[facility] [address] [place], [place], [phone] Urea nitrogen [Mass/Vol] 6 mg/dL Low 7-18 [facility] Comment on above: Order Comment: UNKNO WN1N Performed By: #### L 101.9900, L503.6550, L500.4050, L100.0100, L100.9950, L501.6710, L503.6030, L501.5200, L501.2300, L503.0105, L504.2610, L506.0250 ####[facility] [address] [place], [address] Erythrocyte Sed Rateon 05-06 SED RATE 8 mm/hr Normal 0-30 [facility] Comment on above: Performed By: #### L 101.9900, L503.6550, L500.4050, L100.0100, L100.9950, L501.6710, L503.6030, L501.5200, L501.2300, L503.0105, L504.2610, L506.0250 ####[facility] [address] [place], [address] Ferritinon 05-06-2024 Ferritin [Mass/Vol] 21 ng/mL Normal 8-252 [facility] Comment on above: Order Comment: UNKNO WN1N Performed By: #### L 101.9900, L503.6550, L500.4050, L100.0100, L100.9950, L501.6710, L503.6030, L501.5200, L501.2300, L503.0105, L504.2610, L506.0250 ####[facility] [address] [place], [place], [phone] Folates, (Folic Acid)on 04-12 FOLATES 19.70 ng/mL Normal 3.1-55.4 [facility] Comment on above: Order Comment: UNKNO WN1N Performed By: #### L 101.9900, L503.6550, L500.4050, L100.0100, L100.9950, L501.6710, L503.6030, L501.5200, L501.2300, L503.0105, L504.2610, L506.0250 ####[facility] [address] [place], [place], [phone] Iron+Iron Binding Capacityon 05-06-2024 Iron [Mass/Vol] 73 ug/dL Normal 50-170 [facility] Comment on above: Order Comment: UNKNO WN1N Performed By: #### L 101.9900, L503.6550, L500.4050, L100.0100, L100.9950, L501.6710, L503.6030, L501.5200, L501.2300, L503.0105, L504.2610, L506.0250 ####[facility] [address] [place], [place], [phone] IRON SATURATION 19.2 Normal 15.0-55.0 [facility] Comment on above: Order Comment: UNKNO WN1N Performed By: #### L 101.9900, L503.6550, L500.4050, L100.0100, L100.9950, L501.6710, L503.6030, L501.5200, L501.2300, L503.0105, L504.2610, L506.0250 ####[facility] [address] [place], [place], [phone] TIBC 380 ug/dL Normal 250-450 [facility] Comment on above: Order Comment: UNKNO WN1N Performed By: #### L 101.9900, L503.6550, L500.4050, L100.0100, L100.9950, L501.6710, L503.6030, L501.5200, L501.2300, L503.0105, L504.2610, L506.0250 ####[facility] [address] [place], [place], [id number] LDHon 05-06-2024 LDH 211 U/L Normal 84-246 [facility] Comment on above: Order Comment: UNKNO WN1N Performed By: #### L 101.9900, L503.6550, L500.4050, L100.0100, L100.9950, L501.6710, L503.6030, L501.5200, L501.2300, L503.0105, L504.2610, L506.0250 ####[facility] [address] [place], [place], [id number] Magnesiumon 05-06-2024 Magnesium [Mass/Vol] 2.2 mg/dL Normal 1.6-2.6 [facility] Comment on above: Order Comment: UNKNO WN1N Performed By: #### L 101.9900, L503.6550, L500.4050, L100.0100, L100.9950, L501.6710, L503.6030, L501.5200, L501.2300, L503.0105, L504.2610, L506.0250 ####[facility] [address] [place], [place], [id number] Oncology Visit Reporton 04-12 Oncology Visit Report [facility] [address] [place] [address] OFFICE VISIT Date of Service: 05/06/24 1045 MR#: [id number] Acct: [id number] Name: AMANDA GRUBBS Rep #: [id number] : 1970 From: Santiago Og MD Age/Sex: 53/F Location: [facility] [place] Status: Signed HPI Subjective Date of [...] 10:50) Medications ???Medication ???Instructions ???Recorded ???Confirmed ???Type icduhuovat-ytbkpdxvylmem-fp ffeine 1 cap PO Q8H PRN 01/16/23 [...] 05/06/24 His (more content not included)... Normal [facility] Phosphoruson 05-06-2024 Phosphate [Mass/Vol] 4.5 mg/dL Normal 2.5-4.9 [facility] Comment on above: Order Comment: ANNIKA WN1N Performed By: #### L 101.9900, L503.6550, L500.4050, L100.0100, L100.9950, L501.6710, L503.6030, L501.5200, L501.2300, L503.0105, L504.2610, L506.0250 ####[facility] [address] [place], [place], [address] Retic Panelon 05-06-2024 IM RET FRACTION 14.20 Normal 3.00-15.90 [facility] Comment on above: Performed By: #### L 101.9900, L503.6550, L500.4050, L100.0100, L100.9950, L501.6710, L503.6030, L501.5200, L501.2300, L503.0105, L504.2610, L506.0250 ####[facility] [address] [place], [place], [id number] RET-HE 34.6 pg Normal 30-35 [facility] Comment on above: Performed By: #### L 101.9900, L503.6550, L500.4050, L100.0100, L100.9950, L501.6710, L503.6030, L501.5200, L501.2300, L503.0105, L504.2610, L506.0250 ####[facility] [address] [place], [place], [id number] Retic Count 1.33 Normal 0.5-1.5 [facility] Comment on above: Performed By: #### L 101.9900, L503.6550, L500.4050, L100.0100, L100.9950, L501.6710, L503.6030, L501.5200, L501.2300, L503.0105, L504.2610, L506.0250 ####[facility] [address] [place], [address] Vitamin B12on 05-06-2024 Cobalamin (Vitamin B12) [Mass/Vol] 720 pg/mL Normal 211-911 [facility] Comment on above: Performed By: #### L 101.9900, L503.6550, L500.4050, L100.0100, L100.9950, L501.6710, L503.6030, L501.5200, L501.2300, L503.0105, L504.2610, L506.0250 ####[facility] [address] [place], [address] 12 Lead EKG performed by [facility] on 05-05-2024 12 Lead EKG performed by [facility] [address] [place] [address] 12 Lead EKG performed by [facility] 05/05/24819 MR#: [id number] Acct: [id number] Name: AMANDA GRUBBS Rep #: [id number] : 1970 53 From: Franky Hollingsworth MD Attending Dr: Dr. Franky Hollingsworth MD Status: DE P AMB Ordering Dr: Franky Hollingsworth MD Date: 05/05/24 Location: [facility] Sex: F C Admitted: [facility]/12 Lead EKG performed by [facility] ECG Report Interpretation S inus Rhythm WITHIN NORMAL LIMITSElectronically signed on 05/05/2024 at 12:[address] Franky Hollingsworth [employer] Version 8610 05/05/24 1217 Date Franky Hollingsworth MD CC: Dr. Franky Pearson DO Date Dictated: 05/05/24819 Date Transcribed: 05/05/24819 Mechanical Meter Tester: Signed Normal [facility] Cardiology Visit Reporton Cardiology Visit Report [facility] [address] [place] [address] OFFICE VISIT Date of Service: 05/05/24 MR#: [id number] Acct: [id number] Name: AMANDA GRUBBS Rep #: [id number] : 1970 Provider: Dr. Franky clark MD Age/Sex: 53/F Location: [facility] Status: Signed HPI HPI History [...] Visit Reasons: FAMILY HX OF [place] (LILI) Boatswain Mate Required: No Accompanied by: Is patient in pain?: No Allergies No Known Allergies Allergy (Verified 05/05/24 11:34) Medications ???Medication ???Instructions ???Recorded ???Confirmed ???Type insajpumzi-hvtimyufaigti-aw ffeine 1 cap PO Q8H PRN 01/16/23 [...] colonoscopy H (more content not included)... Normal [facility] Office Visit Reporton 2023 Office Visit Report [facility] [address] [address] OFFICE VISIT Date of Service: 04/17/24 MR#: [id number] Acct: [id number] Patient: AMANDA GRUBBS Rep #: [id number] : 1970 Provider: BLU Clinton Age/Sex: 53/F Location: [facility] Status: Signed Employer Purchased Covid Test Note: Patient here today for Covid Testing, requested by their Employer. Assessment and Plan Plan Details Goals Barriers: Goals Decrease pain Decrease spasm Decrease HAs 04/17/24 1623 Date Hans Lemaigner Signature: Date (if applicable) CC: Normal [facility] Office Visit Report [facility] [address] [address] OFFICE VISIT Date of Service: 04/17/24 MR#: [id number] Acct: [id number] Patient: AMANDA GRUBBS Rep #: [id number] : 1970 Provider: BLU Clinton Age/Sex: 53/F Location: [facility] Status: Signed Employer Purchased Covid Test Note: [...] Lemaignshelley Signature: Date (if applicable) CC: Normal [facility] Urgent Care Visit Reporton 1 06-17-2023 Urgent Care Visit Report [facility] [address] [place] [address] OFFICE VISIT Date of Service: 04/17/24 MR#: [id number] Acct: [id number] Name: AMANDA GRUBBS Rep #: [id number] : 1970 Provider: BLU Clinton Age/Sex: 53/F Location: [facility] Status: Signed Intake Vital Signs 12/12/23 14:29 04/17/24 13:37 Height 5 ft 3 in BP 122/84 H Blood Pressure Location Lt brachial Position Sitting Respiration 15 Pulse 81 Pulse Source NIBP Temp 98.2 F Temp Source Oral Pulse Oximetry (%) 98 Oxygen Delivery Method room air Intake Visit Reasons: FEVER, FATIGUE, SORE THROAT Chief Complaint: fever, fatigue, PND, BA , [place] Boatswain Mate Required: No Is patient in pain?: Yes [...] Exam Const General: cooperative and healthy appearing [facility] Head: normal to inspection Ears: hearing [...] Signature: Date (more content not included)... Normal [facility] Laboratory - Chemistry and C hemistry - challengeOrdered By: Franky Pearson on 09-12-2023 Cobalamin (Vitamin B12) [Mass/Vol] 364 pg/mL 211-911 [facility] Ferritin [Mass/Vol] 26 ng/mL 8-252 [facility] Serum or plasma thiamine kayla surement (mass/volume)Ordered By: Franky Pearson on 09-12-2023 Thiamine [Mass/Vol] 72.8 nmol/L 66.5-200.0 [facility] Comment on above: Performed at: [address] [id number] Director: James Herrera MD, Phone: [phone] Basophil percentageOrdered B y: Franky Pearson on 06-22-2023 Bilirubin [Mass/Vol] 0.40 mg/dL 0.20-1.00 [facility] Comment on above: For patients on eltr ombopag therapy, use of Dimension Rice TBIL is not recommended. Chloride [Moles/Vol] 108 mmol/L 98-107 [facility] Cholesterol [Mass/Vol] 176 mg/dL <200 [facility] Comment on above: <200 mg/dL Desirable 200-240 mg/dL Borderline >240 mg/dL High Risk Glucose [Mass/Vol] 82 mg/dL 74-106 [facility] Potassium [Moles/Vol] 4.5 mmol/L 3.5-5.1 [place] Protein [Mass/Vol] 7.6 g/dL 6.4-8.2 [facility] Sodium [Moles/Vol] 141 mmol/L 136-145 [facility] Triglyceride [Mass/Vol] 58 mg/dL <199 [facility] Comment on above: The drugs N-Acetylcy steine and Metamizole may falsely depress this assay.Serum Triglycerides Reference Interval Normal <150 mg/dL Borderline high 150 - 199 mg/dL High 200 - 499 mg/dL Very High > or = 500 mg/dL WBC (Bld) [#/Vol] 5.4 10*3/uL 4.4-11.0 [facility] Blood erythrocytes count (nu mber/volume)Ordered By: Franky Pearson on 06-22-2023 RBC (Bld) [#/Vol] 4.25 10*6/uL 4.2-5.4 [facility] Blood hemoglobin measurement (mass/volume)Ordered By: Franky Pearson on 06-22-2023 Hemoglobin (Bld) [Mass/Vol] 12.7 g/dL 12.0-15.0 [facility] Blood platelet mean volumeOr dered By: Franky Pearson on 06-22-2023 Platelet mean volume (Bld) [Entitic vol] 9.3 fL 6.2-12.0 [facility] Determination of erythrocyte mean corpuscular volume (MCV)Ordered By: Franky Pearson on 06-22-2023 MCV (RBC) [Entitic vol] 95.1 fL 81-99 [facility] Folic acid serumOrdered By: Franky Pearson on 06-22-2023 Folate [Mass/Vol] 7.40 ng/mL 3.1-55.4 [facility] Hematocrit Auto (Bld) [Volum e fraction]Ordered By: Franky Pearson on 06-22-2023 Hematocrit (Bld) [Volume fraction] 40.4 % 37-47 [facility] Laboratory - Chemistry and C hemistry - challengeOrdered By: Franky Pearson on 06-22-2023 ALP [Catalytic activity/Vol] 84 U/L 45-117 [facility] ALT [Catalytic activity/Vol] 24 U/L 13-56 [facility] CO2 [Moles/Vol] 29.0 mmol/L 21.0-32.0 [facility] Cobalamin (Vitamin B12) [Mass/Vol] 219 pg/mL 211-911 [facility] Globulin (S) [Mass/Vol] 3.8 g/dL 2.2-4.2 [facility] Urea nitrogen/Creatinine [Mass ratio] 13.4 mg/mg 10-20 [facility] - Hematology and Cell countsOrdered By: Franky Pearson on 06-22-2023 Erythrocyte distribution width (RBC) [Entitic vol] 44.1 fL 35.1-43.9 [facility] Erythrocyte distribution width (RBC) [Ratio] 12.7 % 11.6-14.6 [facility] MCH (RBC) [Entitic mass] 29.9 pg 27.0-32.0 [facility] MCHC Auto (RBC) [Mass/Vol]Or dered By: Franky Pearson on 06-22-2023 MCHC (RBC) [Mass/Vol] 31.4 g/dL 32-36 [place] No Panel InformationOrdered By: Franky Pearson on 06-22-2023 Estimated GFR (MDRD) Amer 78 mL/min >60 [facility] Comment on above: GFR Calc Estimated GFR (MDRD) Non-Af Amer 64 mL/min >60 [facility] Comment on above: Non- GFR Calc Thyroid Stimulating Hormone (TSH) 1.00 uIU/mL 0.358-3.74 [facility] Vitamin D 25-Hydroxy 54.4 ng/mL [facility] Comment on above: Vitamin D 25(OH) Sta tus Range Deficiency <20 ng/mL (50nmol/L) Insufficiency 20 - 30 ng/mL (50 - 75 nmol/L) Sufficiency 30 - 100 ng/mL (75 - 250 nmol/L) Toxicity >100 ng/mL (>250 nmol/L) Platelets bldOrdered By: Carmen Pearson on 06-22-2023 Platelets (Bld) [#/Vol] 312 10*3/uL 150-450 [facility] Serum or plasma albumin sharifa urement (mass/volume)Ordered By: Franky Pearson on 06-22-2023 Albumin [Mass/Vol] 3.8 g/dL 3.2-5.0 [facility] Serum or plasma albumin/glob ulin mass ratioOrdered By: Franky Pearson on 06-22-2023 Albumin/Globulin [Mass ratio] 1.0 {ratio} 0.9-2.4 [facility] Serum or plasma calcium sharifa urement (mass/volume)Ordered By: Franky Pearson on 06-22-2023 Calcium [Mass/Vol] 9.5 mg/dL 8.5-10.1 [facility] Serum or plasma cholesterol in HDL measurement (mass/volume)Ordered By: Franky Pearson on 06-22-2023 Cholesterol in HDL [Mass/Vol] 76 mg/dL >40 [facility] Comment on above: The drugs N-Acetylcy steine and Metamizole may falsely depress this assay. Reference Range HDL <40 mg/dL Low HDL Cholesterol HDL >or= 60 mg/dL High HDL Cholesterol Serum or plasma cholesterol in VLDL measurement (mass/volume)Ordered By: Franky Pearson on 06-22-2023 Cholesterol in VLDL [Mass/Vol] 12 mg/dL 5-40 [facility] Serum or plasma creatinine m easurement (mass/volume)Ordered By: Franky Pearson on 06-22-2023 Creatinine [Mass/Vol] 0.97 mg/dL 0.55-1.02 [place] Comment on above: The validity of the calculated GFR & GFRAA in patients over 70 years has not been determined. Clinical correlation is essential. Serum or plasma ferritin kayla surement (mass/volume)Ordered By: Franky Pearson on 06-22-2023 Ferritin [Mass/Vol] 18 ng/mL 8-252 [facility] Serum or plasma low density lipoprotein (LDL) cholesterol measurement (mass/volume)Ordered By: Franky Pearson on 06-22-2023 Cholesterol in LDL [Mass/Vol] 88 mg/dL 0-130 [facility] Serum or plasma thiamine kayla surement (mass/volume)Ordered By: Franky Pearson on 06-22-2023 Thiamine [Mass/Vol] 157.3 nmol/L 66.5-200.0 [place] Serum or plasma urea nitroge n measurement (mass/volume)Ordered By: Franky Pearson on 06-22-2023 Urea nitrogen [Mass/Vol] 13 mg/dL 7-18 [facility] Serum or plasma zinc measure ment (mass/volume)Ordered By: Franky Pearson on 06-22-2023 Zinc [Mass/Vol] 84 ug/dL 44-115 [facility] Comment on above: Detection Limit = 5P erformed at: - [facility] [address] [id number] Director: James Herrera MD, Phone: [phone] Thin prep Papanicolaou smear with manual screeningOrdered By: Franky Pearson on 06-22-2023 Thin prep Papanicolaou smear with manual screening 17 U/L 15-37 [facility] Thin prep Papanicolaou smear with manual screening 4 5-15 [facility] Whole blood hemoglobin A1c/t otal hemoglobin ratio (mass fraction)Ordered By: Franky Pearson on 06-22-2023 HbA1c (Bld) [Mass fraction] 5.4 % 3.8-5.6 [facility] Comment on above: Normal < 5.7 % Predi abetic 5.7 - 6.4 % Diabetic >or= 6.5 % Please note range changes. Laboratory - Microbiology an d Antimicrobial susceptibilityon 05-13-2023 SARS-CoV-2 (COVID-19) RNA SANTINO+probe Ql (Unsp spec) Not detected [facility] No Panel Informationon 05-13 POC Nasal Swab Influenza A,B Not detected [facility] POC Nasal Swab RSV Not detected [facility] 36on 01-16-2023 36 Name of Caller: Ayesha i Contact Reason for Appointment: Pt needs to cancel upcoming appt and the pt sill call back to resx. Please advise Office Name: [facility] Medication Refills need, if any: NA Medication Name: NA [facility] 36on 11-06-2022 36 Please contact the p t regarding the dose of ozempic. 1 mg was prescibed on 08/18/2022. The request for 2 mg does not match the prescription. Please let me know. Thank you [facility] 36on 10-26-2022 36 Requested Prescripti ons Pending Prescriptions Disp Refills Semaglutide, 2 MG/DOSE, (Ozempic, 2 MG/DOSE,) 8 MG/3ML solution pen-injector 12 mL 0 Sig: Inject 2 mg under the skin 1 (one) time per week. Last seen on 08-18-22 by SCOTT Next appt on 12/15/22 with SCOTT [facility] B1WBon 09-13-2022 Vitamin B1 (TDP), Whole Blood 92.0 nmol/L Normal 84.3-213.3 [facility] ([place]) Comment on above: Result Comment: Malindar yunier reference range. Test performed at [facility]. Reference interval: 70-180 nmol/L This assay measures the concentration of thiamine diphosphate (TDP), the primary active form of vitamin B1. Approximately 90 percent of vitamin B1 present in the whole blood is TDP. Thiamine and thiamine monophosphate, which compromise the remaining 10 present are not measured. This test was developed and its performance characteristics determine by [facility] [employer]. It has not been cleared or approved by the [place] Food and Drug administration. This test was performed in a CLIA certified laboratory and is intended for clinical purposes. Performed By: [facility] [address] [place] [address] Disk Recoater: Kenny Nunes III, M.D. CLIA#: [id number] Performed By: #### HUMBERTO WADE #### [address] [address] ZINCon 09-04-2022 Zinc (s) 65 UG/DL Normal 60-120 [facility] ([place]) Comment on above: Result Comment: This test was developed and its performance characteristics determined by [facility] ([facility]). It has not been cleared or approved by the FDA. -[facility] is regulated under CLIA as qualified to perform high-complexity testing. This test is used for clinical purposes. It should not be regarded as investigational or for research. Performed By: [facility] [address] [place] [address] Disk Recoater: Kenny Nunes III, M.D. CLIA#: [id number] Performed By: #### A HUMBERTO CONTEH #### [address] [address] .Auto Diffon 09-02-2022 Basophil, Absolute 0.0 10 3/mcL Normal 0.0-0.2 [facility] ([place]) Comment on above: Performed By: #### H CV1 #### [address] [address] #### CBC, ADIFF, CK, ANEU, CMP, A1C, LIPID, VIDH, MG, TSH, GFR, B1WB, ZINC #### [address] [address] Basophils/100 WBC (Bld) 0.5 % Normal 0.0-2.5 [facility] ([place]) Comment on above: Performed By: #### H CV1 #### [address] [address] #### CBC, ADIFF, CK, ANEU, CMP, A1C, LIPID, VIDH, MG, TSH, GFR, B1WB, ZINC #### [address] [address] Eosinophil, Absolute 0.2 10 3/mcL Normal 0.0-0.4 [facility] ([place]) Comment on above: Performed By: #### H CV1 #### [place] [address] #### CBC, ADIFF, CK, ANEU, CMP, A1C, LIPID, VIDH, MG, TSH, GFR, B1WB, ZINC #### [address] [address] Eosinophils/100 WBC (Bld) 2.1 % Normal 0.0-7.0 [facility] ([place]) Comment on above: Performed By: #### H CV1 #### [place] [address] #### CBC, ADIFF, CK, ANEU, CMP, A1C, LIPID, VIDH, MG, TSH, GFR, B1WB, ZINC #### [address] [address] Lymphocyte, Absolute 2.3 10 3/mcL Normal 0.8-3.9 [facility] ([place]) Comment on above: Performed By: #### H CV1 #### [place] [address] #### CBC, ADIFF, CK, ANEU, CMP, A1C, LIPID, VIDH, MG, TSH, GFR, B1WB, ZINC #### [address] [address] Lymphocytes/100 WBC (Bld) 30.9 % Normal 10.0-50.0 [facility] ([place]) Comment on above: Performed By: #### H CV1 #### [place] [address] #### CBC, ADIFF, CK, ANEU, CMP, A1C, LIPID, VIDH, MG, TSH, GFR, B1WB, ZINC #### [address] [address] Monocyte, Absolute 0.7 10 3/mcL Normal 0.2-1.0 [facility] ([place]) Comment on above: Performed By: #### H CV1 #### [place] [address] #### CBC, ADIFF, CK, ANEU, CMP, A1C, LIPID, VIDH, MG, TSH, GFR, B1WB, ZINC #### [address] [address] Monocytes/100 WBC (Bld) 9.0 % Normal 1.7-13.0 [facility] ([place]) Comment on above: Performed By: #### H CV1 #### [address] [address] #### CBC, ADIFF, CK, ANEU, CMP, A1C, LIPID, VIDH, MG, TSH, GFR, B1WB, ZINC #### [address] [address] Neutrophils/100 WBC (Bld) 57.5 % Normal 37.0-80.0 [facility] ([place]) Comment on above: Performed By: #### H CV1 #### [address] [address] #### CBC, ADIFF, CK, ANEU, CMP, A1C, LIPID, VIDH, MG, TSH, GFR, B1WB, ZINC #### [address] [address] .GFRon 09-02-2022 GFR 97 ml/min/1.73sqm Normal [facility] ([place]) Comment on above: Result Comment: GFR Population [...] Performed By: #### A WERO TROPHS #### [address] [address] GFR Non- 80 ml/min/1.73sqm Normal [facility] ([place]) Comment on above: Result Comment: GFR Population [...] Performed By: #### A WERO TROPHS #### [address] [address] .NEUABSon 09-02-2022 Neutrophil, Absolute 4.3 10 3/mcL Normal 2.9-6.2 [facility] ([place]) Comment on above: Performed By: #### H CV1 #### [address] [address] #### CBC, ADIFF, CK, ANEU, CMP, A1C, LIPID, VIDH, MG, TSH, GFR, B1WB, ZINC #### [address] [address] A1Con 09-02-2022 HbA1c (Bld) [Mass fraction] 5.6 % Normal 4.3-6.4 [facility] ([place]) Comment on above: Performed By: #### H CV1 #### [address] [address] #### CBC, ADIFF, CK, ANEU, CMP, A1C, LIPID, VIDH, MG, TSH, GFR, B1WB, ZINC #### [address] [address] CBCon 09-02-2022 Erythrocyte distribution width (RBC) [Ratio] 13.6 % Normal 11.5-14.5 [facility] ([place]) Comment on above: Performed By: #### H CV1 #### [address] [address] #### CBC, ADIFF, CK, ANEU, CMP, A1C, LIPID, VIDH, MG, TSH, GFR, B1WB, ZINC #### [address] [address] Hematocrit (Bld) [Volume fraction] 35.7 % Low 37.0-47.0 [facility] ([place]) Comment on above: Performed By: #### H CV1 #### [place] [address] #### CBC, ADIFF, CK, ANEU, CMP, A1C, LIPID, VIDH, MG, TSH, GFR, B1WB, ZINC #### [address] [address] Hgb 12.2 G/dL Normal 12.0-16.0 [facility] ([place]) Comment on above: Performed By: #### H CV1 #### [place] [address] #### CBC, ADIFF, CK, ANEU, CMP, A1C, LIPID, VIDH, MG, TSH, GFR, B1WB, ZINC #### [address] [address] MCH (RBC) [Entitic mass] 30.9 pg Normal 27.0-31.2 [facility] ([place]) Comment on above: Performed By: #### H CV1 #### [place] [address] #### CBC, ADIFF, CK, ANEU, CMP, A1C, LIPID, VIDH, MG, TSH, GFR, B1WB, ZINC #### [address] [address] MCHC 34.1 G/dL Normal 33.0-37.0 [facility] ([place]) Comment on above: Performed By: #### H CV1 #### [place] [address] #### CBC, ADIFF, CK, ANEU, CMP, A1C, LIPID, VIDH, MG, TSH, GFR, B1WB, ZINC #### [address] [address] MCV (RBC) [Entitic vol] 90.7 fL Normal 80.0-94.0 [facility] ([place]) Comment on above: Performed By: #### H CV1 #### [place] [address] #### CBC, ADIFF, CK, ANEU, CMP, A1C, LIPID, VIDH, MG, TSH, GFR, B1WB, ZINC #### [address] [address] Platelet 419 10 3/mcL High 130-400 [facility] ([place]) Comment on above: Performed By: #### H CV1 #### [place] [address] #### CBC, ADIFF, CK, ANEU, CMP, A1C, LIPID, VIDH, MG, TSH, GFR, B1WB, ZINC #### [address] [address] Platelet mean volume (Bld) [Entitic vol] 6.6 fL Low 7.4-10.4 [facility] ([place]) Comment on above: Performed By: #### H CV1 #### [place] [address] #### CBC, ADIFF, CK, ANEU, CMP, A1C, LIPID, VIDH, MG, TSH, GFR, B1WB, ZINC #### [address] [address] RBC 3.94 10 6/mcL Low 4.20-5.40 [facility] ([place]) Comment on above: Performed By: #### H CV1 #### [place] [address] #### CBC, ADIFF, CK, ANEU, CMP, A1C, LIPID, VIDH, MG, TSH, GFR, B1WB, ZINC #### [address] [address] WBC 7.5 10 3/mcL Normal 4.6-10.8 [facility] ([place]) Comment on above: Performed By: #### H CV1 #### [place] [address] #### CBC, ADIFF, CK, ANEU, CMP, A1C, LIPID, VIDH, MG, TSH, GFR, B1WB, ZINC #### [address] [address] CKon 09-02-2022 CK [Catalytic activity/Vol] 32 U/L Normal 26-192 [facility] ([place]) Comment on above: Performed By: #### H CV1 #### [address] [address] #### CBC, ADIFF, CK, ANEU, CMP, A1C, LIPID, VIDH, MG, TSH, GFR, B1WB, ZINC #### [address] [address] CMPon 09-02-2022 Albumin Level 3.7 G/dL Normal 3.5-5.0 [facility] ([place]) Comment on above: Performed By: #### A KRISTAL CONTEHS #### [address] [address] Albumin/Globulin [Mass ratio] 1.1 {ratio} Normal 1.1-2.5 [facility] ([place]) Comment on above: Performed By: #### A KRISTAL CONTEHS #### [address] [address] ALP [Catalytic activity/Vol] 83 U/L Normal 40-135 [facility] ([place]) Comment on above: Performed By: #### A KRISTAL CONTEHS #### [address] [address] ALT [Catalytic activity/Vol] 27 U/L Normal 14-59 [facility] ([place]) Comment on above: Performed By: #### A WERO TROPHS #### [address] [address] AST [Catalytic activity/Vol] 15 U/L Normal 10-40 [facility] ([place]) Comment on above: Performed By: #### A MY, TROPHS #### [address] [address] Bili Total 0.2 mg/dL Normal 0.2-1.0 [facility] ([place]) Comment on above: Result Comment: Use of this assay is not recommended for patients undergoing treatment with eltrombopag due to the potential for falsely elevated results. Performed By: #### A WERO TROPHS #### [place] [address] BUN/Creatinine Ratio 16 ratio Normal 7-27 [facility] ([place]) Comment on above: Performed By: #### A WERO TROPHS #### [address] [address] Calcium [Mass/Vol] 9.0 mg/dL Normal 8.4-10.2 [facility] ([place]) Comment on above: Performed By: #### A WERO TROPHS #### [address] [address] Chloride [Moles/Vol] 104 mmol/L Normal 98-107 [facility] ([place]) Comment on above: Performed By: #### A WERO TROPHS #### [address] [address] CO2 [Moles/Vol] 29 mmol/L Normal 22-29 [facility] ([place]) Comment on above: Performed By: #### A WERO TROPHS #### [address] [address] Creatinine [Mass/Vol] 0.76 mg/dL Normal 0.55-1.02 [facility] ([place]) Comment on above: Performed By: #### A WERO TROPHS #### [address] [address] Electrolyte Balance 9.0 mEq/L Normal 4.0-15.0 [facility] ([place]) Comment on above: Performed By: #### A WERO TROPHS #### [place] [id number] Globulin 3.3 G/dL Normal [facility] ([place]) Comment on above: Performed By: #### A WERO TROPHS #### [address] [address] Glucose [Mass/Vol] 76 mg/dL Normal 70-105 [facility] ([place]) Comment on above: Performed By: #### A KRISTAL CONTEHS #### [address] [address] Potassium [Moles/Vol] 4.3 mmol/L Normal 3.5-5.1 [facility] ([place]) Comment on above: Performed By: #### A WERO TROPHS #### [address] [address] Sodium [Moles/Vol] 142 mmol/L Normal 136-145 [facility]) Comment on above: Performed By: #### A WERO TROPHS #### [address] [address] Total Protein 7.0 G/dL Normal 6.4-8.2 [facility] ([place]) Comment on above: Performed By: #### A WERO TROPHS #### [address] [address] Urea nitrogen [Mass/Vol] 12 mg/dL Normal 7-18 [facility] ([place]) Comment on above: Performed By: #### A KRISTAL CONTEHS #### [address] [address] HCVon 09-02-2022 Hep C Ab Non-Reactive Normal Non-Reacti ve [facility] ([place]) Comment on above: Performed By: #### A WERO TROPHS #### [address] [address] Hep C Ab Int Normal [facility] ([place]) Comment on above: Result Comment: Nonr eactive: Samples with a value < 0.80 are considered nonreactive (negative) for antibodies to HCV. A negative test result does not exclude the possibility of exposure to or infection with HCV. HCV antibodies may be undetectable in some stages of the infection and in some clinical conditions. See Interp Performed By: #### A HUMBERTO CONTEH #### [address] [place] [address] LABORATORYOrdered By: SYSTEM SYSTEM on 09-02-2022 Albumin [...] Cholesterol [Mass/Vol] 185 mg/dL Normal 0-200 [facility] ([place]) Comment on above: Result Comment: Chol esterol Reference Interval: Less than 200 Desirable 200-239 Borderline high risk 240 and above High risk Performed By: #### A MY, TROPHS #### [address] [address] Cholesterol in HDL [Mass/Vol] 67 mg/dL High 40-60 [facility] ([place]) Comment on above: Performed By: #### A WERO TROPHS #### [address] [address] Cholesterol in LDL [Mass/Vol] 96 mg/dL Normal 0-130 [facility] ([place]) Comment on above: Performed By: #### A KRISTAL CONTEHS #### [address] [address] Triglyceride [Mass/Vol] 109 mg/dL Normal 0-150 [facility] ([place]) Comment on above: Result Comment: Trig lyceride Reference Interval: Less than 150 Normal 150-199 Borderline high risk 200-499 High risk 500 or higher Very high risk Performed By: #### A KRISTAL CONTEHS #### [address] [address] MGon 09-02-2022 Magnesium [Mass/Vol] 2.1 mg/dL Normal 1.8-2.4 [facility] ([place]) Comment on above: Performed By: #### H CV1 #### [place] [address] #### CBC, ADIFF, CK, ANEU, CMP, A1C, LIPID, VIDH, MG, TSH, GFR, B1WB, ZINC #### [address] [address] TSHon 09-02-2022 TSH Qn 1.47 m[IU]/L Normal 0.36-3.74 [facility] ([place]) Comment on above: Performed By: #### H CV1 #### [place] [address] #### CBC, ADIFF, CK, ANEU, CMP, A1C, LIPID, VIDH, MG, TSH, GFR, B1WB, ZINC #### [address] [address] VIDHon 09-02-2022 Vit. D 25-Hydroxy 46.3 ng/mL Normal [facility] ([place]) Comment on above: Result Comment: Inte rpretive Values Based on Total 25(OH) Vitamin D: Deficient <20 ng/mL Insufficient 20 - <30 ng/mL Sufficient 30-100 ng/mL Performed By: #### H CV1 #### [place] [address] #### CBC, ADIFF, CK, ANEU, CMP, A1C, LIPID, VIDH, MG, TSH, GFR, B1WB, ZINC #### [address] [address] .Auto Diffon 08-26-2022 Basophil, Absolute 0.0 10 3/mcL Normal 0.0-0.2 [facility] ([place]) Comment on above: Performed By: #### H CV1 #### [place] [address] #### CBC, ADIFF, CK, ANEU, CMP, A1C, LIPID, VIDH, MG, TSH, GFR, B1WB, ZINC #### [address] [address] Basophils/100 WBC (Bld) 0.2 % Normal 0.0-2.5 [facility] ([place]) Comment on above: Performed By: #### H CV1 #### [place] [address] #### CBC, ADIFF, CK, ANEU, CMP, A1C, LIPID, VIDH, MG, TSH, GFR, B1WB, ZINC #### [address] [address] Eosinophil, Absolute 0.1 10 3/mcL Normal 0.0-0.4 [facility] ([place]) Comment on above: Performed By: #### H CV1 #### [place] [address] #### CBC, ADIFF, CK, ANEU, CMP, A1C, LIPID, VIDH, MG, TSH, GFR, B1WB, ZINC #### [address] [address] Eosinophils/100 WBC (Bld) 0.9 % Normal 0.0-7.0 [facility] ([place]) Comment on above: Performed By: #### H CV1 #### [place] [address] #### CBC, ADIFF, CK, ANEU, CMP, A1C, LIPID, VIDH, MG, TSH, GFR, B1WB, ZINC #### [address] [address] Lymphocyte, Absolute 0.7 10 3/mcL Low 0.8-3.9 [facility] ([place]) Comment on above: Performed By: #### H CV1 #### [place] [address] #### CBC, ADIFF, CK, ANEU, CMP, A1C, LIPID, VIDH, MG, TSH, GFR, B1WB, ZINC #### [address] [address] Lymphocytes/100 WBC (Bld) 8.5 % Low 10.0-50.0 [facility] ([place]) Comment on above: Performed By: #### H CV1 #### [place] [address] #### CBC, ADIFF, CK, ANEU, CMP, A1C, LIPID, VIDH, MG, TSH, GFR, B1WB, ZINC #### [address] [address] Monocyte, Absolute 0.5 10 3/mcL Normal 0.2-1.0 [facility] ([place]) Comment on above: Performed By: #### H CV1 #### [place] [address] #### CBC, ADIFF, CK, ANEU, CMP, A1C, LIPID, VIDH, MG, TSH, GFR, B1WB, ZINC #### [address] [address] Monocytes/100 WBC (Bld) 6.4 % Normal 1.7-13.0 [facility] ([place]) Comment on above: Performed By: #### H CV1 #### [place] [address] #### CBC, ADIFF, CK, ANEU, CMP, A1C, LIPID, VIDH, MG, TSH, GFR, B1WB, ZINC #### [address] [address] Neutrophils/100 WBC (Bld) 84.0 % High 37.0-80.0 [facility] ([place]) Comment on above: Performed By: #### H CV1 #### [address] [address] #### CBC, ADIFF, CK, ANEU, CMP, A1C, LIPID, VIDH, MG, TSH, GFR, B1WB, ZINC #### [address] [address] .GFRon 08-26-2022 GFR 82 ml/min/1.73sqm Normal [facility] ([place]) Comment on above: Result Comment: GFR Population [...] meters Performed By: #### H CV1 #### [address] [address] #### CBC, ADIFF, CK, ANEU, CMP, A1C, LIPID, VIDH, MG, TSH, GFR, B1WB, ZINC #### [address] [address] GFR Non- 68 ml/min/1.73sqm Normal [facility] ([place]) Comment on above: Result Comment: GFR Population [...] meters Performed By: #### H CV1 #### [address] [address] #### CBC, ADIFF, CK, ANEU, CMP, A1C, LIPID, VIDH, MG, TSH, GFR, B1WB, ZINC #### [address] [address] .MDWon 08-26-2022 Monocyte Distribution Width 20.32 High 0.00-20.00 [facility] ([place]) Comment on above: Result Comment: For adults in ED, MDW>20.0 may be associated with a higher risk of sepsis during the first 12hrs of hospital admission Performed By: #### H CV1 #### [place] [address] #### CBC, ADIFF, CK, ANEU, CMP, A1C, LIPID, VIDH, MG, TSH, GFR, B1WB, ZINC #### [address] [address] .NEUABSon 08-26-2022 Neutrophil, Absolute 6.7 10 3/mcL High 2.9-6.2 [facility] ([place]) Comment on above: Performed By: #### H CV1 #### [address] [address] #### CBC, ADIFF, CK, ANEU, CMP, A1C, LIPID, VIDH, MG, TSH, GFR, B1WB, ZINC #### [address] [address] AMYon 08-26-2022 Amylase [Catalytic activity/Vol] 54 U/L Normal 25-115 [facility] ([place]) Comment on above: Performed By: #### A MY TROPHS #### [address] [address] [facility] 08-26-2022 Erythrocyte distribution width (RBC) [Ratio] 13.7 % Normal 11.5-14.5 [facility] ([place]) Comment on above: Performed By: #### H CV1 #### [place] [address] #### CBC, ADIFF, CK, ANEU, CMP, A1C, LIPID, VIDH, MG, TSH, GFR, B1WB, ZINC #### [address] [address] Hematocrit (Bld) [Volume fraction] 37.5 % Normal 37.0-47.0 [facility] ([place]) Comment on above: Performed By: #### H CV1 #### [place] [address] #### CBC, ADIFF, CK, ANEU, CMP, A1C, LIPID, VIDH, MG, TSH, GFR, B1WB, ZINC #### [address] [address] Hgb 12.6 G/dL Normal 12.0-16.0 [facility] ([place]) Comment on above: Performed By: #### H CV1 #### [place] [address] #### CBC, ADIFF, CK, ANEU, CMP, A1C, LIPID, VIDH, MG, TSH, GFR, B1WB, ZINC #### [address] [address] MCH (RBC) [Entitic mass] 30.7 pg Normal 27.0-31.2 [facility] ([place]) Comment on above: Performed By: #### H CV1 #### [place] [address] #### CBC, ADIFF, CK, ANEU, CMP, A1C, LIPID, VIDH, MG, TSH, GFR, B1WB, ZINC #### [address] [address] MCHC 33.7 G/dL Normal 33.0-37.0 [facility] ([place]) Comment on above: Performed By: #### H CV1 #### [place] [address] #### CBC, ADIFF, CK, ANEU, CMP, A1C, LIPID, VIDH, MG, TSH, GFR, B1WB, ZINC #### [address] [address] MCV (RBC) [Entitic vol] 91.1 fL Normal 80.0-94.0 [facility] ([place]) Comment on above: Performed By: #### H CV1 #### [place] [address] #### CBC, ADIFF, CK, ANEU, CMP, A1C, LIPID, VIDH, MG, TSH, GFR, B1WB, ZINC #### [address] [address] Platelet 304 10 3/mcL Normal 130-400 [facility] ([place]) Comment on above: Performed By: #### H CV1 #### [place] [address] #### CBC, ADIFF, CK, ANEU, CMP, A1C, LIPID, VIDH, MG, TSH, GFR, B1WB, ZINC #### [address] [address] Platelet mean volume (Bld) [Entitic vol] 7.0 fL Low 7.4-10.4 [facility] ([place]) Comment on above: Performed By: #### H CV1 #### [place] [address] #### CBC, ADIFF, CK, ANEU, CMP, A1C, LIPID, VIDH, MG, TSH, GFR, B1WB, ZINC #### [address] [address] RBC 4.11 10 6/mcL Low 4.20-5.40 [facility] ([place]) Comment on above: Performed By: #### H CV1 #### [address] [address] #### CBC, ADIFF, CK, ANEU, CMP, A1C, LIPID, VIDH, MG, TSH, GFR, B1WB, ZINC #### [address] [address] WBC 8.0 10 3/mcL Normal 4.6-10.8 [facility] ([place]) Comment on above: Performed By: #### H CV1 #### [place] [address] #### CBC, ADIFF, CK, ANEU, CMP, A1C, LIPID, VIDH, MG, TSH, GFR, B1WB, ZINC #### [address] [address] [facility] Albumin Level 3.9 G/dL Normal 3.5-5.0 [facility] ([place]) Comment on above: Performed By: #### H CV1 #### [place] [address] #### CBC, ADIFF, CK, ANEU, CMP, A1C, LIPID, VIDH, MG, TSH, GFR, B1WB, ZINC #### [address] [address] Albumin/Globulin [Mass ratio] 1.2 {ratio} Normal 1.1-2.5 [facility] ([place]) Comment on above: Performed By: #### H CV1 #### [place] [address] #### CBC, ADIFF, CK, ANEU, CMP, A1C, LIPID, VIDH, MG, TSH, GFR, B1WB, ZINC #### [address] [address] ALP [Catalytic activity/Vol] 97 U/L Normal 40-135 [facility] ([place]) Comment on above: Performed By: #### H CV1 #### [place] [address] #### CBC, ADIFF, CK, ANEU, CMP, A1C, LIPID, VIDH, MG, TSH, GFR, B1WB, ZINC #### [address] [address] ALT [Catalytic activity/Vol] 27 U/L Normal 14-59 [facility] ([place]) Comment on above: Performed By: #### H CV1 #### [address] [address] #### CBC, ADIFF, CK, ANEU, CMP, A1C, LIPID, VIDH, MG, TSH, GFR, B1WB, ZINC #### [address] [address] AST [Catalytic activity/Vol] 34 U/L Normal 10-40 [facility] ([place]) Comment on above: Performed By: #### H CV1 #### [address] [address] #### CBC, ADIFF, CK, ANEU, CMP, A1C, LIPID, VIDH, MG, TSH, GFR, B1WB, ZINC #### [address] [address] Bili Total 0.3 mg/dL Normal 0.2-1.0 [facility] ([place]) Comment on above: Result Comment: Use of this assay is not recommended for patients undergoing treatment with eltrombopag due to the potential for falsely elevated results. Performed By: #### H CV1 #### [address] [address] #### CBC, ADIFF, CK, ANEU, CMP, A1C, LIPID, VIDH, MG, TSH, GFR, B1WB, ZINC #### [address] [address] BUN/Creatinine Ratio 10 ratio Normal 7-27 [facility] ([place]) Comment on above: Performed By: #### H CV1 #### [address] [address] #### CBC, ADIFF, CK, ANEU, CMP, A1C, LIPID, VIDH, MG, TSH, GFR, B1WB, ZINC #### [address] [address] Calcium [Mass/Vol] 8.7 mg/dL Normal 8.4-10.2 [facility] ([place]) Comment on above: Performed By: #### H CV1 #### [place] [address] #### CBC, ADIFF, CK, ANEU, CMP, A1C, LIPID, VIDH, MG, TSH, GFR, B1WB, ZINC #### [address] [address] Chloride [Moles/Vol] 102 mmol/L Normal 98-107 [facility] ([place]) Comment on above: Performed By: #### H CV1 #### [place] [address] #### CBC, ADIFF, CK, ANEU, CMP, A1C, LIPID, VIDH, MG, TSH, GFR, B1WB, ZINC #### [address] [address] CO2 [Moles/Vol] 27 mmol/L Normal 22-29 [facility] ([place]) Comment on above: Performed By: #### H CV1 #### [place] [address] #### CBC, ADIFF, CK, ANEU, CMP, A1C, LIPID, VIDH, MG, TSH, GFR, B1WB, ZINC #### [address] [address] Creatinine [Mass/Vol] 0.88 mg/dL Normal 0.55-1.02 [facility] ([place]) Comment on above: Performed By: #### H CV1 #### [place] [address] #### CBC, ADIFF, CK, ANEU, CMP, A1C, LIPID, VIDH, MG, TSH, GFR, B1WB, ZINC #### [address] [address] Electrolyte Balance 8.0 mEq/L Normal 4.0-15.0 [facility] ([place]) Comment on above: Performed By: #### H CV1 #### [place] [address] #### CBC, ADIFF, CK, ANEU, CMP, A1C, LIPID, VIDH, MG, TSH, GFR, B1WB, ZINC #### [address] [address] Globulin 3.2 G/dL Normal [facility] ([place]) Comment on above: Performed By: #### H CV1 #### [place] [address] #### CBC, ADIFF, CK, ANEU, CMP, A1C, LIPID, VIDH, MG, TSH, GFR, B1WB, ZINC #### [address] [address] Glucose [Mass/Vol] 98 mg/dL Normal 70-105 [facility] ([place]) Comment on above: Performed By: #### H CV1 #### [place] [address] #### CBC, ADIFF, CK, ANEU, CMP, A1C, LIPID, VIDH, MG, TSH, GFR, B1WB, ZINC #### [address] [address] Potassium [Moles/Vol] 4.3 mmol/L Normal 3.5-5.1 [facility] ([place]) Comment on above: Performed By: #### H CV1 #### [place] [address] #### CBC, ADIFF, CK, ANEU, CMP, A1C, LIPID, VIDH, MG, TSH, GFR, B1WB, ZINC #### [address] [address] Sodium [Moles/Vol] 137 mmol/L Normal 136-145 [facility] ([place]) Comment on above: Performed By: #### H CV1 #### [place] [address] #### CBC, ADIFF, CK, ANEU, CMP, A1C, LIPID, VIDH, MG, TSH, GFR, B1WB, ZINC #### [address] [address] Total Protein 7.1 G/dL Normal 6.4-8.2 [facility] ([place]) Comment on above: Performed By: #### H CV1 #### [address] [address] #### CBC, ADIFF, CK, ANEU, CMP, A1C, LIPID, VIDH, MG, TSH, GFR, B1WB, ZINC #### [address] [address] Urea nitrogen [Mass/Vol] 9 mg/dL Normal 12-26 [facility] ([place]) Comment on above: Performed By: #### H CV1 #### [address] [address] #### CBC, ADIFF, CK, ANEU, CMP, A1C, LIPID, VIDH, MG, TSH, GFR, B1WB, ZINC #### [address] [address] CRPon 08-26-2022 C-Reactive Protein 4.1 mg/dL High 0.0-0.9 [facility] ([place]) Comment on above: Performed By: #### H CV1 #### [address] [address] #### CBC, ADIFF, CK, ANEU, CMP, A1C, LIPID, VIDH, MG, TSH, GFR, B1WB, ZINC #### [address] [address] [address] ABD/PELVIS W/ IV CONTRAST ONLYon 08-26-2022 [...] of indeterminate clinical significance. Interpreted by: Peewee oV Preliminary Report By: Peewee Vo Electronically signed By Peewee Vo Dictated Date: 08/26/2022 6:21:07 PM Prelim Date: 08/26/2022 6:34:22 PM Sign Date: 08/26/2022 6:34:22 PM Ordering Provider: LINDA MARTINEZ Normal [facility]) DIMERon 08-26-2022 D-Dimer <200 Normal 0-230 [facility]) Comment on above: Result Comment: The [...] (PE). Performed By: #### H CV1 #### [place] [address] #### CBC, ADIFF, CK, ANEU, CMP, A1C, LIPID, VIDH, MG, TSH, GFR, B1WB, ZINC #### [place] [address] [place], [place] [address] LABORATORYOrdered By: SYSTEM SYSTEM on 08-26-2022 Amylase [...] LIPon 08-26-2022 Lipase Level 177 U/L High [facility] ([place]) Comment on above: Performed By: #### H CV1 #### [place] [address] #### CBC, ADIFF, CK, ANEU, CMP, A1C, LIPID, VIDH, MG, TSH, GFR, B1WB, ZINC #### [address] [address] MGon 08-26-2022 Magnesium [Mass/Vol] 2.0 mg/dL Normal 1.8-2.4 [facility] ([place]) Comment on above: Performed By: #### H CV1 #### [address] [address] #### CBC, ADIFF, CK, ANEU, CMP, A1C, LIPID, VIDH, MG, TSH, GFR, B1WB, ZINC #### [address] [address] PBNPon 08-26-2022 Natriuretic peptide B (Bld) [Mass/Vol] 27 pg/mL Normal 0-125 [facility] ([place]) Comment on above: Result Comment: NT-p roBNP results of less than 300 pg/mL effectively rules out acute congestive heart failure with 99% negative predictive value. Performed By: #### H CV1 #### [place] [address] #### CBC, ADIFF, CK, ANEU, CMP, A1C, LIPID, VIDH, MG, TSH, GFR, B1WB, ZINC #### [address] [address] TROPHSon 08-26-2022 Troponin I High Sensitivity 4.3 ng/L Normal 0.0-51.4 [facility] ([place]) Comment on above: Performed By: #### HUMBERTO WADE #### [address] [address] Troponin I High Sensitivity <4.0 Normal 0.0-51.4 [facility] ([place]) Comment on above: Performed By: #### H CV1 #### [place] [address] #### CBC, ADIFF, CK, ANEU, CMP, A1C, LIPID, VIDH, MG, TSH, GFR, B1WB, ZINC #### [address] [address] XR CHEST 1 VIEWon 08-26-2022 XR CHEST [...] Provider: LINDA Silverio [facility] ([place]) US BREAST RIGHT LIMITEDon US BREAST RIGHT LIMITED ORIGINAL FROM: [address] [address] PROCEDURE FOR: AMANDA GRUBBS [address] [place] [address] Home: PID#: [id number] Exam#: [id number] : 1970 Age: 52 TO: [facility] [address] Fax: NO FAX EXAMINATION: ULTRASOUND OF THE [...] Provider: FRANKY PEARSON CLINICAL: 6 MONTHS FOLLOW-UP. Senior Insight Manager International: FELIBERTO CINTRON RT(R) RDMS letter sent: Probably Benign BI-RADS 3 Ultrasound BI-RADS: 3 Probably benign Normal [facility] ([place]) Office Visiton 08-18-2022 Follow-up visit [id number] Amanda Grubbs 1970 F Date Provider Department Center 08/18/2022 SHAYNA MOELLER [facility] None Family History Problem Relation [...] Grandfather Paternal Grandmother Sister Alive Level of Service:53175 [place] OFFICE/OUTPATIENT ESTABLISHED LOW MDM 20-29 MIN Reason for Visit and Comments: Bariatrics Post Op Follow-up [884] - DE POP 04/08/18 [facility] Progress Noteon 08-18-2022 Progress Note BARIATRIC [...] Exercising: yes If yes: Type: gym with aed trainer Times per week: 3 Min per [...] or JAD If YES: Labs completed at [facility]? N/A If yes see Labs Tab Labs completed at Non-[facility] facility? N/A If yes see Encounters Tab - Orders only - Historical Provider - Date: Completed by: Mary Mishra MA [facility] GLUon 08-15-2022 Glucose [Mass/Vol] 78 mg/dL Normal 70-110 [facility] ([place]) Comment on above: Performed By: #### H CV1 #### [facility] [address] [place] [address] #### CBC, ADIFF, CK, ANEU, CMP, A1C, LIPID, VIDH, MG, TSH, GFR, B1WB, ZINC #### [address] [address] LIPIDon 08-15-2022 Cholesterol [Mass/Vol] 166 mg/dL Normal 50-199 [facility] ([place]) Comment on above: Result Comment: Chol esterol Reference Interval: Less than 200 Desirable 200-239 Borderline high risk 240 and above High risk Performed By: #### H CV1 #### [place] [address] #### CBC, ADIFF, CK, ANEU, CMP, A1C, LIPID, VIDH, MG, TSH, GFR, B1WB, ZINC #### [address] [address] Cholesterol in HDL [Mass/Vol] 51 mg/dL Normal 40-59 [facility] ([place]) Comment on above: Performed By: #### H CV1 #### [place] [address] #### CBC, ADIFF, CK, ANEU, CMP, A1C, LIPID, VIDH, MG, TSH, GFR, B1WB, ZINC #### [address] [address] Cholesterol in LDL [Mass/Vol] 84 mg/dL Normal 0-129 [facility] ([place]) Comment on above: Performed By: #### H CV1 #### [place] [address] #### CBC, ADIFF, CK, ANEU, CMP, A1C, LIPID, VIDH, MG, TSH, GFR, B1WB, ZINC #### [address] [address] Triglyceride [Mass/Vol] 156 mg/dL High 3-149 [facility] ([place]) Comment on above: Performed By: #### H CV1 #### [place] [address] #### CBC, ADIFF, CK, ANEU, CMP, A1C, LIPID, VIDH, MG, TSH, GFR, B1WB, ZINC #### [address] [address] Office Visiton 07-07-2022 Follow-up visit [id number] Amanda Grubbs 1970 F Date Provider Department Center 07/07/2022 SHAYNA MOELLER [facility] None Family History Problem Relation [...] Grandfather Paternal Grandmother Sister Alive Level of Service:[address]442 [place] OFFICE/OUTPATIENT ESTABLISHED LOW MDM 20-29 MIN Reason for Visit and Comments: Bariatrics Post Op Follow-up [884] - POP D/E FU [facility] Progress Noteon 07-07-2022 Progress Note BARIATRIC [...] or JAD If YES: Labs completed at [facility]? N/A If yes see Labs Tab [facility] If yes see Encounters Tab - Orders only - Historical Provider - Date: Completed by: Manuel Preciado MA [facility] CT THORAX W/O CONTRASTon CT THORAX [...] 2022 12:43:51 PM Ordering Provider: FRANKY PEARSON [facility] ([place]) Office Visiton 06-07-2022 Follow-up visit [id number] Amanda Grubbs 1970 F Date Provider Department Center 06/07/2022 [id number] ANDRADE [facility] None Family History Problem Relation [...] Grandfather Paternal Grandmother Sister Alive Level of Service:61293 [place] OFFICE/OUTPATIENT ESTABLISHED LOW MDM 20-29 MIN Reason for Visit and Comments: Bariatrics Post Op Follow-up [884] - POP D/E FU [facility] Progress Noteon 06-07-2022 Progress Note BARIATRIC CARE IDALIA Nathan ROOMING NOTE POST WEIGHT LOSS SURGERY FOLLOW UP Patient: Amanda Grubbs Service Date: 06/07/2022 Patient is 5 year(s) s/p RnY Gastric Bypass Post-op Weight Metrics: Post-Surgical Weight Loss Date: 06/07/22 Height: 5' 3.25 (160.7 cm) ([facility]) Weight: 188 lb (85.3 kg) BMI: [...] or JAD If YES: Labs completed at [facility]? N/A If yes see Labs Tab Labs completed at Non-[facility] facility? N/A If yes see Encounters Tab - Orders only - Historical Provider - Date: Completed by: Manuel Preciado MA [facility] Office Visiton 05-10-2022 Follow-up visit [id number] Ash Grubbsalma Varner 1970 F Date Provider Department Center 05/10/2022 [id number] SEBASTIAN [facility] None Family History Problem Relation [...] Grandfather Paternal Grandmother Sister Alive Level of Service:27687 [place] OFFICE/OUTPATIENT ESTABLISHED MOD MDM 30-39 MIN Reason for Visit and Comments: Weight Management [645] - POP D/E [facility] Progress Noteon 05-10-2022 Progress Note BARIATRIC CARE IDAILA CASANOVAING NOTE POST WEIGHT LOSS SURGERY FOLLOW [...] or JAD If YES: Labs completed at [facility]? no If yes see Labs Tab [facility]? yes If yes see Encounters Tab - Orders only - Historical Provider - Date: 04/26/22 Completed by: Tatum Del Valle MA [facility] B1WBon 05-01-2022 Vitamin B1 (TDP), Whole Blood 94.7 nmol/L Normal 84.3-213.3 [facility] ([place]) Comment on above: Result Comment: This assay measures the concentration of thiamine diphosphate (TDP), the primary active form of vitamin B1. Approximately 90 percent of vitamin B1 present in whole blood is TDP. Thiamine and thiamine monophosphate, which comprise the remaining 10 percent, are not measured. This test was developed and its performance characteristics determined by [facility] ([facility]). It has not been cleared or approved by the FDA. [facility] is regulated under CLIA as qualified to perform high-complexity testing. This test is used for clinical purposes. It should not be regarded as investigational or for research. Performed By: [address] [address] Disk Recoater: Kenny Nunes III, M.D. CLIA#: [id number] Performed By: #### H CV1 #### [address] [address] #### CBC, ADIFF, CK, ANEU, CMP, A1C, LIPID, VIDH, MG, TSH, GFR, B1WB, ZINC #### [address] [address] ZINCon 04-27-2022 Zinc (s) 52 UG/DL Low 60-120 [facility] ([place]) Comment on above: Result Comment: This test was developed and its performance characteristics determined by [facility] ([facility]). It has not been cleared or approved by the FDA. [facility] is regulated under CLIA as qualified to perform high-complexity testing. This test is used for clinical purposes. It should not be regarded as investigational or for research. Performed By: [address] [address] Disk Recoater: Kenny Nunes III, M.D. CLIA#: [id number] Performed By: #### H CV1 #### [address] [address] #### CBC, ADIFF, CK, ANEU, CMP, A1C, LIPID, VIDH, MG, TSH, GFR, B1WB, ZINC #### [address] [address] .Auto Diffon 04-26-2022 Basophil, Absolute 0.0 10 3/mcL Normal 0.0-0.2 [facility] ([place]) Comment on above: Performed By: #### H CV1 #### [place] [address] #### CBC, ADIFF, CK, ANEU, CMP, A1C, LIPID, VIDH, MG, TSH, GFR, B1WB, ZINC #### [address] [address] Basophils/100 WBC (Bld) 0.7 % Normal 0.0-2.5 [facility] ([place]) Comment on above: Performed By: #### H CV1 #### [place] [address] #### CBC, ADIFF, CK, ANEU, CMP, A1C, LIPID, VIDH, MG, TSH, GFR, B1WB, ZINC #### [address] [address] Eosinophil, Absolute 0.2 10 3/mcL Normal 0.0-0.4 [facility] ([place]) Comment on above: Performed By: #### H CV1 #### [place] [address] #### CBC, ADIFF, CK, ANEU, CMP, A1C, LIPID, VIDH, MG, TSH, GFR, B1WB, ZINC #### [address] [id number] Eosinophils/100 WBC (Bld) 3.2 % Normal 0.0-7.0 [facility] ([place]) Comment on above: Performed By: #### H CV1 #### [place] [address] #### CBC, ADIFF, CK, ANEU, CMP, A1C, LIPID, VIDH, MG, TSH, GFR, B1WB, ZINC #### [address] [address] Lymphocyte, Absolute 1.8 10 3/mcL Normal 0.8-3.9 [facility] ([place]) Comment on above: Performed By: #### H CV1 #### [place] [address] #### CBC, ADIFF, CK, ANEU, CMP, A1C, LIPID, VIDH, MG, TSH, GFR, B1WB, ZINC #### [address] [id number] Lymphocytes/100 WBC (Bld) 33.7 % Normal 10.0-50.0 [facility] ([place]) Comment on above: Performed By: #### H CV1 #### [place] [address] #### CBC, ADIFF, CK, ANEU, CMP, A1C, LIPID, VIDH, MG, TSH, GFR, B1WB, ZINC #### [address] [address] Monocyte, Absolute 0.5 10 3/mcL Normal 0.2-1.0 [facility] ([place]) Comment on above: Performed By: #### H CV1 #### [place] [address] #### CBC, ADIFF, CK, ANEU, CMP, A1C, LIPID, VIDH, MG, TSH, GFR, B1WB, ZINC #### [address] [address] Monocytes/100 WBC (Bld) 10.3 % Normal 1.7-13.0 [facility] ([place]) Comment on above: Performed By: #### H CV1 #### [place] [address] #### CBC, ADIFF, CK, ANEU, CMP, A1C, LIPID, VIDH, MG, TSH, GFR, B1WB, ZINC #### [address] [address] Neutrophils/100 WBC (Bld) 52.1 % Normal 37.0-80.0 [facility] ([place]) Comment on above: Performed By: #### H CV1 #### [place] [address] #### CBC, ADIFF, CK, ANEU, CMP, A1C, LIPID, VIDH, MG, TSH, GFR, B1WB, ZINC #### [address] [address] .GFRon 04-26-2022 GFR 71 ml/min/1.73sqm Normal [facility] ([place]) Comment on above: Result Comment: GFR Population [...] meters Performed By: #### H CV1 #### [address] [address] #### CBC, ADIFF, CK, ANEU, CMP, A1C, LIPID, VIDH, MG, TSH, GFR, B1WB, ZINC #### [place] [address] [place], [place] [address] GFR Non- 59 ml/min/1.73sqm Normal [facility] ([place]) Comment on above: Result Comment: GFR Population [...] meters Performed By: #### H CV1 #### [address] [address] #### CBC, ADIFF, CK, ANEU, CMP, A1C, LIPID, VIDH, MG, TSH, GFR, B1WB, ZINC #### [address] [address] .NEUABSon 04-26-2022 Neutrophil, Absolute 2.8 10 3/mcL Low 2.9-6.2 [facility] ([place]) Comment on above: Performed By: #### H CV1 #### [address] [address] #### CBC, ADIFF, CK, ANEU, CMP, A1C, LIPID, VIDH, MG, TSH, GFR, B1WB, ZINC #### [address] [address] A1Con 04-26-2022 HbA1c (Bld) [Mass fraction] 5.7 % Normal 4.3-6.4 [facility] ([place]) Comment on above: Performed By: #### H CV1 #### [address] [address] #### CBC, ADIFF, CK, ANEU, CMP, A1C, LIPID, VIDH, MG, TSH, GFR, B1WB, ZINC #### [address] [address] B12on 04-26-2022 Cobalamin (Vitamin B12) [Mass/Vol] 328 pg/mL Normal 211-911 [facility] ([place]) Comment on above: Performed By: #### H CV1 #### [address] [address] #### CBC, ADIFF, CK, ANEU, CMP, A1C, LIPID, VIDH, MG, TSH, GFR, B1WB, ZINC #### [address] [address] CBCon 04-26-2022 Erythrocyte distribution width (RBC) [Ratio] 13.0 % Normal 11.5-14.5 [facility] ([place]) Comment on above: Performed By: #### H CV1 #### [address] [address] #### CBC, ADIFF, CK, ANEU, CMP, A1C, LIPID, VIDH, MG, TSH, GFR, B1WB, ZINC #### [address] [address] Hematocrit (Bld) [Volume fraction] 37.6 % Normal 37.0-47.0 [facility] ([place]) Comment on above: Performed By: #### H CV1 #### [place] [address] #### CBC, ADIFF, CK, ANEU, CMP, A1C, LIPID, VIDH, MG, TSH, GFR, B1WB, ZINC #### [address] [address] Hgb 12.7 G/dL Normal 12.0-16.0 [facility] ([place]) Comment on above: Performed By: #### H CV1 #### [place] [address] #### CBC, ADIFF, CK, ANEU, CMP, A1C, LIPID, VIDH, MG, TSH, GFR, B1WB, ZINC #### [address] [address] MCH (RBC) [Entitic mass] 31.4 pg High 27.0-31.2 [facility] ([place]) Comment on above: Performed By: #### H CV1 #### [place] [address] #### CBC, ADIFF, CK, ANEU, CMP, A1C, LIPID, VIDH, MG, TSH, GFR, B1WB, ZINC #### [address] [address] MCHC 33.8 G/dL Normal 33.0-37.0 [facility] ([place]) Comment on above: Performed By: #### H CV1 #### [place] [address] #### CBC, ADIFF, CK, ANEU, CMP, A1C, LIPID, VIDH, MG, TSH, GFR, B1WB, ZINC #### [address] [address] MCV (RBC) [Entitic vol] 92.9 fL Normal 80.0-94.0 [facility] ([place]) Comment on above: Performed By: #### H CV1 #### [place] [address] #### CBC, ADIFF, CK, ANEU, CMP, A1C, LIPID, VIDH, MG, TSH, GFR, B1WB, ZINC #### [address] [address] Platelet 278 10 3/mcL Normal 130-400 [facility] ([place]) Comment on above: Performed By: #### H CV1 #### [place] [address] #### CBC, ADIFF, CK, ANEU, CMP, A1C, LIPID, VIDH, MG, TSH, GFR, B1WB, ZINC #### [address] [address] Platelet mean volume (Bld) [Entitic vol] 7.2 fL Low 7.4-10.4 [facility] ([place]) Comment on above: Performed By: #### H CV1 #### [place] [address] #### CBC, ADIFF, CK, ANEU, CMP, A1C, LIPID, VIDH, MG, TSH, GFR, B1WB, ZINC #### [address] [address] RBC 4.05 10 6/mcL Low 4.20-5.40 [facility] ([place]) Comment on above: Performed By: #### H CV1 #### [place] [address] #### CBC, ADIFF, CK, ANEU, CMP, A1C, LIPID, VIDH, MG, TSH, GFR, B1WB, ZINC #### [address] [address] WBC 5.3 10 3/mcL Normal 4.6-10.8 [facility] ([place]) Comment on above: Performed By: #### H CV1 #### [place] [address] #### CBC, ADIFF, CK, ANEU, CMP, A1C, LIPID, VIDH, MG, TSH, GFR, B1WB, ZINC #### [address] [address] [facility] 04-26-2022 Albumin Level 4.1 G/dL Normal 3.5-5.0 [facility] ([place]) Comment on above: Performed By: #### H CV1 #### [place] [address] #### CBC, ADIFF, CK, ANEU, CMP, A1C, LIPID, VIDH, MG, TSH, GFR, B1WB, ZINC #### [address] [address] Albumin/Globulin [Mass ratio] 1.3 {ratio} Normal 1.1-2.5 [facility] ([place]) Comment on above: Performed By: #### H CV1 #### [place] [address] #### CBC, ADIFF, CK, ANEU, CMP, A1C, LIPID, VIDH, MG, TSH, GFR, B1WB, ZINC #### [address] [address] ALP [Catalytic activity/Vol] 85 U/L Normal 40-135 [facility] ([place]) Comment on above: Performed By: #### H CV1 #### [place] [address] #### CBC, ADIFF, CK, ANEU, CMP, A1C, LIPID, VIDH, MG, TSH, GFR, B1WB, ZINC #### [address] [address] ALT [Catalytic activity/Vol] 25 U/L Normal 14-59 [facility] ([place]) Comment on above: Performed By: #### H CV1 #### [place] [address] #### CBC, ADIFF, CK, ANEU, CMP, A1C, LIPID, VIDH, MG, TSH, GFR, B1WB, ZINC #### [address] [address] AST [Catalytic activity/Vol] 18 U/L Normal 10-40 [facility] ([place]) Comment on above: Performed By: #### H CV1 #### [place] [address] #### CBC, ADIFF, CK, ANEU, CMP, A1C, LIPID, VIDH, MG, TSH, GFR, B1WB, ZINC #### [address] [address] Bili Total 0.2 mg/dL Normal 0.2-1.0 [facility] ([place]) Comment on above: Result Comment: Use of this assay is not recommended for patients undergoing treatment with eltrombopag due to the potential for falsely elevated results. Performed By: #### H CV1 #### [place] [address] #### CBC, ADIFF, CK, ANEU, CMP, A1C, LIPID, VIDH, MG, TSH, GFR, B1WB, ZINC #### [address] [address] BUN/Creatinine Ratio 10 ratio Normal 7-27 [facility] ([place]) Comment on above: Performed By: #### H CV1 #### [address] [address] #### CBC, ADIFF, CK, ANEU, CMP, A1C, LIPID, VIDH, MG, TSH, GFR, B1WB, ZINC #### [address] [address] Calcium [Mass/Vol] 9.6 mg/dL Normal 8.4-10.2 [facility] ([place]) Comment on above: Performed By: #### H CV1 #### [place] [address] #### CBC, ADIFF, CK, ANEU, CMP, A1C, LIPID, VIDH, MG, TSH, GFR, B1WB, ZINC #### [address] [address] Chloride [Moles/Vol] 105 mmol/L Normal 98-107 [facility] ([place]) Comment on above: Performed By: #### H CV1 #### [address] [address] #### CBC, ADIFF, CK, ANEU, CMP, A1C, LIPID, VIDH, MG, TSH, GFR, B1WB, ZINC #### [address] [address] CO2 [Moles/Vol] 30 mmol/L High 22-29 [facility] ([place]) Comment on above: Performed By: #### H CV1 #### [address] [address] #### CBC, ADIFF, CK, ANEU, CMP, A1C, LIPID, VIDH, MG, TSH, GFR, B1WB, ZINC #### [address] [address] Creatinine [Mass/Vol] 1.00 mg/dL Normal 0.55-1.02 [facility] ([place]) Comment on above: Performed By: #### H CV1 #### [place] [address] #### CBC, ADIFF, CK, ANEU, CMP, A1C, LIPID, VIDH, MG, TSH, GFR, B1WB, ZINC #### [address] [address] Electrolyte Balance 5.0 mEq/L Normal 4.0-15.0 [facility] ([place]) Comment on above: Performed By: #### H CV1 #### [place] [address] #### CBC, ADIFF, CK, ANEU, CMP, A1C, LIPID, VIDH, MG, TSH, GFR, B1WB, ZINC #### [address] [address] Globulin 3.1 G/dL Normal [facility] ([place]) Comment on above: Performed By: #### H CV1 #### [facility] [address] [place], [place] [address] #### CBC, ADIFF, CK, ANEU, CMP, A1C, LIPID, VIDH, MG, TSH, GFR, B1WB, ZINC #### [address] [address] Glucose [Mass/Vol] 69 mg/dL Low 70-105 [facility] ([place]) Comment on above: Performed By: #### H CV1 #### [address] [address] #### CBC, ADIFF, CK, ANEU, CMP, A1C, LIPID, VIDH, MG, TSH, GFR, B1WB, ZINC #### [address] [address] Potassium [Moles/Vol] 5.0 mmol/L Normal 3.5-5.1 [facility] ([place]) Comment on above: Performed By: #### H CV1 #### [place] [address] #### CBC, ADIFF, CK, ANEU, CMP, A1C, LIPID, VIDH, MG, TSH, GFR, B1WB, ZINC #### [address] [address] Sodium [Moles/Vol] 140 mmol/L Normal 136-145 [facility] ([place]) Comment on above: Performed By: #### H CV1 #### [address] [address] #### CBC, ADIFF, CK, ANEU, CMP, A1C, LIPID, VIDH, MG, TSH, GFR, B1WB, ZINC #### [address] [address] Total Protein 7.2 G/dL Normal 6.4-8.2 [facility] ([place]) Comment on above: Performed By: #### H CV1 #### [address] [address] #### CBC, ADIFF, CK, ANEU, CMP, A1C, LIPID, VIDH, MG, TSH, GFR, B1WB, ZINC #### [address] [address] Urea nitrogen [Mass/Vol] 10 mg/dL Normal 7-18 [facility] ([place]) Comment on above: Performed By: #### H CV1 #### [address] [address] #### CBC, ADIFF, CK, ANEU, CMP, A1C, LIPID, VIDH, MG, TSH, GFR, B1WB, ZINC #### [address] [address] Tena 04-26-2022 Ferritin [Mass/Vol] 17.0 ng/mL Normal 8.0-252.0 [facility] ([place]) Comment on above: Performed By: #### H CV1 #### [address] [address] #### CBC, ADIFF, CK, ANEU, CMP, A1C, LIPID, VIDH, MG, TSH, GFR, B1WB, ZINC #### [address] [address] FOLon 04-26-2022 Folate 11.20 ng/mL Normal 5.38-24.00 [facility] ([place]) Comment on above: Performed By: #### H CV1 #### [address] [address] #### CBC, ADIFF, CK, ANEU, CMP, A1C, LIPID, VIDH, MG, TSH, GFR, B1WB, ZINC #### [address] [address] LABORATORYOrdered By: Nri Hackett on 04-26-2022 Albumin BCP dye [Mass/Vol] [...] 04-26-2022 Cholesterol [Mass/Vol] 172 mg/dL Normal 0-200 [facility] ([place]) Comment on above: Result Comment: Chol esterol Reference Interval: Less than 200 Desirable 200-239 Borderline high risk 240 and above High risk Performed By: #### H CV1 #### [place] [address] #### CBC, ADIFF, CK, ANEU, CMP, A1C, LIPID, VIDH, MG, TSH, GFR, B1WB, ZINC #### [address] [address] Cholesterol in HDL [Mass/Vol] 62 mg/dL High 40-60 [facility] ([place]) Comment on above: Performed By: #### H CV1 #### [place] [address] #### CBC, ADIFF, CK, ANEU, CMP, A1C, LIPID, VIDH, MG, TSH, GFR, B1WB, ZINC #### [address] [address] Cholesterol in LDL [Mass/Vol] 78 mg/dL Normal 0-130 [facility] ([place]) Comment on above: Performed By: #### H CV1 #### [address] [address] #### CBC, ADIFF, CK, ANEU, CMP, A1C, LIPID, VIDH, MG, TSH, GFR, B1WB, ZINC #### [address] [address] Triglyceride [Mass/Vol] 159 mg/dL High 0-150 [facility] ([place]) Comment on above: Result Comment: Trig lyceride Reference Interval: Less than 150 Normal 150-199 Borderline high risk 200-499 High risk 500 or higher Very high risk Performed By: #### H CV1 #### [place] [address] #### CBC, ADIFF, CK, ANEU, CMP, A1C, LIPID, VIDH, MG, TSH, GFR, B1WB, ZINC #### [address] [address] VIDHon 04-26-2022 Vit. D 25-Hydroxy 28.9 ng/mL Normal [facility] ([place]) Comment on above: Result Comment: Inte rpretive Values Based on Total 25(OH) Vitamin D: Deficient <20 ng/mL Insufficient 20 - <30 ng/mL Sufficient 30-100 ng/mL Performed By: #### H CV1 #### [place] [address] #### CBC, ADIFF, CK, ANEU, CMP, A1C, LIPID, VIDH, MG, TSH, GFR, B1WB, ZINC #### [address] [address] .Auto Diffon 04-15-2022 Basophil, Absolute 0.0 10 3/mcL Normal 0.0-0.2 [facility] ([place]) Comment on above: Performed By: #### A HUMBERTO CONTEH #### [address] [address] Basophils/100 WBC (Bld) 0.7 % Normal 0.0-2.5 [facility] ([place]) Comment on above: Performed By: #### A HUMBERTO CONTEH #### [address] [address] Eosinophil, Absolute 0.2 10 3/mcL Normal 0.0-0.4 [facility] ([place]) Comment on above: Performed By: #### A WERO TROPHS #### [address] [address] Eosinophils/100 WBC (Bld) 3.1 % Normal 0.0-7.0 [facility] ([place]) Comment on above: Performed By: #### A WERO TROPHS #### [address] [address] Lymphocyte, Absolute 1.9 10 3/mcL Normal 0.8-3.9 [facility] ([place]) Comment on above: Performed By: #### A WERO TROPHS #### [address] [address] Lymphocytes/100 WBC (Bld) 30.5 % Normal 10.0-50.0 [facility] ([place]) Comment on above: Performed By: #### A WERO TROPHS #### [address] [address] Monocyte, Absolute 0.5 10 3/mcL Normal 0.2-1.0 [facility] ([place]) Comment on above: Performed By: #### A WERO TROPHS #### [address] [address] Monocytes/100 WBC (Bld) 8.5 % Normal 1.7-13.0 [facility] ([place]) Comment on above: Performed By: #### A WERO TROPHS #### [address] [address] Neutrophils/100 WBC (Bld) 57.2 % Normal 37.0-80.0 [facility] ([place]) Comment on above: Performed By: #### A WERO TROPHS #### [address] [address] .GFRon 04-15-2022 GFR 77 ml/min/1.73sqm Normal [facility] ([place]) Comment on above: Result Comment: [...] meters Performed By: #### H CV1 #### [address] [address] #### CBC, ADIFF, CK, ANEU, CMP, A1C, LIPID, VIDH, MG, TSH, GFR, B1WB, ZINC #### [facility] [address] [address] GFR Non- 64 ml/min/1.73sqm Normal [facility] ([place]) Comment on above: Result Comment: GFR Population [...] meters Performed By: #### H CV1 #### [address] [address] #### CBC, ADIFF, CK, ANEU, CMP, A1C, LIPID, VIDH, MG, TSH, GFR, B1WB, ZINC #### [address] [address] .NEUABSon 04-15-2022 Neutrophil, Absolute 3.5 10 3/mcL Normal 2.9-6.2 [facility] ([place]) Comment on above: Performed By: #### HUMBERTO WADE #### [address] [address] A1Con 04-15-2022 HbA1c (Bld) [Mass fraction] 5.4 % Normal 4.3-6.4 [facility] ([place]) Comment on above: Performed By: #### H CV1 #### [place] [address] [place] [address] #### CBC, ADIFF, CK, ANEU, CMP, A1C, LIPID, VIDH, MG, TSH, GFR, B1WB, ZINC #### [address] [address] CBCon 04-15-2022 Erythrocyte distribution width (RBC) [Ratio] 12.8 % Normal 11.5-14.5 [facility] ([place]) Comment on above: Performed By: #### A WERO TROPHS #### [address] [address] Hematocrit (Bld) [Volume fraction] 38.3 % Normal 37.0-47.0 [facility] ([place]) Comment on above: Performed By: #### A WERO TROPHS #### [address] [address] Hgb 13.1 G/dL Normal 12.0-16.0 [facility] ([place]) Comment on above: Performed By: #### A WERO TROPHS #### [address] [address] MCH (RBC) [Entitic mass] 31.4 pg High 27.0-31.2 [facility] ([place]) Comment on above: Performed By: #### A WERO TROPHS #### [address] [address] MCHC 34.1 G/dL Normal 33.0-37.0 [facility] ([place]) Comment on above: Performed By: #### A WERO TROPHS #### [address] [address] MCV (RBC) [Entitic vol] 92.1 fL Normal 80.0-94.0 [facility] ([place]) Comment on above: Performed By: #### A WERO TROPHS #### [address] [address] Platelet 313 10 3/mcL Normal 130-400 [facility] ([place]) Comment on above: Performed By: #### A WERO TROPHS #### [address] [address] Platelet mean volume (Bld) [Entitic vol] 7.3 fL Low 7.4-10.4 [facility] ([place]) Comment on above: Performed By: #### A WERO TROPHS #### [address] [address] RBC 4.16 10 6/mcL Low 4.20-5.40 [facility] ([place]) Comment on above: Performed By: #### A WERO TROPHS #### [address] [address] WBC 6.1 10 3/mcL Normal 4.6-10.8 [facility] ([place]) Comment on above: Performed By: #### A KRISTAL CONTEHS #### [address] [address] CMPon 04-15-2022 Albumin Level 4.2 G/dL Normal 3.5-5.0 [facility] ([place]) Comment on above: Performed By: #### A WERO TROPHS #### [address] [address] Albumin/Globulin [Mass ratio] 1.4 {ratio} Normal 1.1-2.5 [facility] ([place]) Comment on above: Performed By: #### A WERO TROPHS #### [address] [address] ALP [Catalytic activity/Vol] 84 U/L Normal 40-135 [facility] ([place]) Comment on above: Performed By: #### A WERO TROPHS #### [address] [address] ALT [Catalytic activity/Vol] 28 U/L Normal 14-59 [facility] ([place]) Comment on above: Performed By: #### A KRISTAL CONTEHS #### [address] [address] AST [Catalytic activity/Vol] 18 U/L Normal 10-40 [facility] ([place]) Comment on above: Performed By: #### A KRISTAL CONTEHS #### [address] [address] Bili Total 0.3 mg/dL Normal 0.2-1.0 [facility] ([place]) Comment on above: Result Comment: Use of this assay is not recommended for patients undergoing treatment with eltrombopag due to the potential for falsely elevated results. Performed By: #### A HUMBERTO CONTEH #### [address] [address] BUN/Creatinine Ratio 17 ratio Normal 7-27 [facility] ([place]) Comment on above: Performed By: #### A KRISTAL CONTEHS #### [address] [address] Calcium [Mass/Vol] 9.5 mg/dL Normal 8.4-10.2 [facility] ([place]) Comment on above: Performed By: #### A KRISTAL CONTEHS #### [address] [address] Chloride [Moles/Vol] 103 mmol/L Normal 98-107 [facility] ([place]) Comment on above: Performed By: #### A KRISTAL CONTEHS #### [address] [address] CO2 [Moles/Vol] 30 mmol/L High 22-29 [facility] ([place]) Comment on above: Performed By: #### A KRISTAL CONTEHS #### [address] [address] Creatinine [Mass/Vol] 0.93 mg/dL Normal 0.55-1.02 [facility] ([place]) Comment on above: Performed By: #### A KRISTAL CONTEHS #### [address] [address] Electrolyte Balance 8.0 mEq/L Normal 4.0-15.0 [facility] ([place]) Comment on above: Performed By: #### A WERO TROPHS #### [address] [address] Globulin 3.1 G/dL Normal [facility] ([place]) Comment on above: Performed By: #### A WERO TROPHS #### [address] [address] Glucose [Mass/Vol] 84 mg/dL Normal 70-105 [facility] ([place]) Comment on above: Performed By: #### A WERO TROPHS #### [address] [address] Potassium [Moles/Vol] 4.9 mmol/L Normal 3.5-5.1 [facility] ([place]) Comment on above: Performed By: #### A WERO TROPHS #### [address] [address] Sodium [Moles/Vol] 141 mmol/L Normal 136-145 [facility] ([place]) Comment on above: Performed By: #### A WERO TROPHS #### [address] [address] Total Protein 7.3 G/dL Normal 6.4-8.2 [facility] ([place]) Comment on above: Performed By: #### A WERO TROPHS #### [address] [address] Urea nitrogen [Mass/Vol] 16 mg/dL Normal 7-18 [facility] ([place]) Comment on above: Performed By: #### A WERO TROPHS #### [address] [address] LABORATORYOrdered By: Paris Hernandez on 04-15-2022 Albumin [...] MAMMOGRAM DIAGNOSTIC BILATERAL W/JUMA ORIGINAL FROM: [facility] [address] [place], [place] [address] PROCEDURE FOR: AMANDA GRUBBS [address] [place] [address] Home: PID#: [id number] Exam#: [id number] : 1970 Age: 51 TO: FRANKY PEARSON DO [facility] [place] [address] Fax: NO FAX EXAMINATION: DIAGNOSTIC BILATERAL MAMMOGRAM [...] FRANKY PEARSON CLINICAL: ASYMMETRIC DENSITY RIGHT BREAST. Senior Insight Manager International: JENNIFER MARTINEZ RT(R) (M) letter sent: Abnormal-Needs additional work up BI-RADS 0 Mammogram BI-RADS: 0 Indeterminate Normal [facility] ([place]) US BREAST RIGHT LIMITEDon US BREAST RIGHT LIMITED ORIGINAL FROM: [address] [address] PROCEDURE FOR: AMANDA VarnerFiorella [address] [place] [address] Home: PID#: [id number] Exam#: [id number] : 1970 Age: 51 TO: FRANKY PEARSON DO [address] [place] [address] Fax: NO FAX EXAMINATION: ULTRASOUND OF THE [...] Provider: FRANKY PEARSON CLINICAL: 6 MONTHS FOLLOW-UP. Senior Insight Manager International: MANUEL CHIRINOS RT,RDMS letter sent: Probably Benign BI-RADS 3 Ultrasound BI-RADS: 3 Probably benign Normal [facility] ([place]) CT THORAX W/O CONTRASTon CT THORAX W/O [...] upper lobe on image 35 is unchanged. 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 A outside sales representative nodule along the right minor [...] 12/02/2021 3:00:41 PM Ordering Provider: FRANKY Silverio [facility]) LABORATORYOrdered By: Nir Hackett on 05-22-2021 [...] CORONAVIRUS 2019,PCR NOT DETECTED Normal Not Detected [facility] Comment on above: Result Comment: This assay is designed to detect the ORF1ab and/or S genes of SARS-CoV-2 via nucleic acid amplification. A Not Detected result does not preclude 2019-nCoV infection since the adequacy of sample collection and/or low viral burden may result in presence of viral nucleic acids below the clinical sensitivity of this test method. Fact sheet for providers: www.fda.gov/media/836927/download Fact sheet for patients: www.fda.gov/media/894944/download This test has received FDA Emergency Use Authorization (EUA) and has been verified by [facility] ([facility]). This test is only authorized for the duration of time that circumstances exist to justify the authorization of the emergency use of in vitro diagnostic tests for the detection of SARS-CoV-2 virus and/or diagnosis of COVID-19 infection under section 564(b)(1) of the Act, 21 U.S.C. 360bbb-3(b)(1), unless the authorization is terminated or revoked sooner. [facility] is certified under CLIA-88 as qualified to perform high complexity testing. Testing is performed in the [facility] laboratories located at [address] [place] [address]. Performed By: #### C OV19 #### [address] [place] [address] Basic Metabolic Panelon 01-10 Anion gap [Moles/Vol] 8 mmol/L Normal 8-15 [facility] Comment on above: Performed By: #### B MP #### [facility] [address] [place] [address] Calcium [Mass/Vol] 9.8 mg/dL Normal 8.6-10.6 [facility] Comment on above: Performed By: #### B MP #### [facility] [address] [place] [address] Chloride [Moles/Vol] 106 mmol/L Normal 98-107 [facility] Comment on above: Performed By: #### B MP #### [facility] [address] [place] [address] CO2 [Moles/Vol] 25 mmol/L Normal 22-29 [facility] Comment on above: Performed By: #### B MP #### [facility] [address] [place] [address] Creatinine [Mass/Vol] 0.7 mg/dL Normal 0.5-1.2 [facility] Comment on above: Performed By: #### B MP #### [facility] [address] [place] [address] eGFR -Amer >=60 Normal >=60 [facility] Comment on above: Performed By: #### B MP #### [facility] [address] [place] [address] [id number] GFR/1.73 sq M predicted among non-blacks MDRD (S/P/Bld) [Vol rate/Area] mL/min/{1.73_m2} Normal >=60 [facility] Comment on above: Performed By: #### B MP #### [facility] [address] [place] [address] [id number] Glucose [Mass/Vol] 75 mg/dL Normal 74-109 [facility] Comment on above: Performed By: #### B MP #### [facility] [address] [place] [address] [id number] Potassium [Moles/Vol] 4.7 mmol/L Normal 3.4-5.1 [facility] Comment on above: Performed By: #### B MP #### [facility] [address] [place] [address] [id number] Sodium [Moles/Vol] 139 mmol/L Normal 136-145 [facility] Comment on above: Performed By: #### B MP #### [facility] [facility] [address] [place] [address] 18064 Urea nitrogen [Mass/Vol] 11 mg/dL Normal 6-23 [facility] Comment on above: Performed By: #### B MP #### [facility] [address] [place] [address] 14495 CBC with Diffon 02-02-2020 Basophils (Bld) [#/Vol] 0.0 x(10)3/cumm Normal 0.0-0.1 [facility] Comment on above: Performed By: #### C BCDIFF #### [facility] [address] [place] [address] 76916 Basophils/100 WBC (Bld) 0.6 % Normal 0.0-1.0 [facility] Comment on above: Performed By: #### C BCDIFF #### [facility] [address] [place] [address] 41999 Eosinophils (Bld) [#/Vol] 0.1 x(10)3/cumm Normal 0.0-0.4 [facility] Comment on above: Performed By: #### C BCDIFF #### [facility] [address] [place] [address] 09844 Eosinophils/100 WBC (Bld) 1.9 % Normal 0.0-6.1 [facility] Comment on above: Performed By: #### C BCDIFF #### [facility] [address] [place] [address] 50641 Erythrocyte distribution width (RBC) [Ratio] 13.0 % Normal 11.1-15.3 [facility] Comment on above: Performed By: #### C BCDIFF #### [facility] [address] [place] [address] 18843 Hematocrit (Bld) [Volume fraction] 39.1 % Normal 34.6-45.0 [facility] Comment on above: Performed By: #### C BCDIFF #### [facility] [address] [place] [address] 56048 Hemoglobin (Bld) [Mass/Vol] 13.4 g/dL Normal 11.5-15.5 [facility] Comment on above: Performed By: #### C BCDIFF #### [facility] [address] [place] [address] 84943 Lymphocytes (Bld) [#/Vol] 1.6 x(10)3/cumm Normal 0.8-2.9 [facility] Comment on above: Performed By: #### C BCDIFF #### [facility] [address] [place] [address] 33966 Lymphocytes/100 WBC (Bld) 34.2 % Normal 12.2-42.6 [facility] Comment on above: Performed By: #### C BCDIFF #### [facility] [address] [place] [address] 93094 MCH (RBC) [Entitic mass] 32.7 pg Normal 27.2-33.6 [facility] Comment on above: Performed By: #### C BCDIFF #### [facility] [address] [place] [address] 49451 MCHC (RBC) [Mass/Vol] 34.3 g/dL Normal 32.9-35.3 [facility] Comment on above: Performed By: #### C BCDIFF #### [facility] [address] [place] [address] 57090 MCV (RBC) [Entitic vol] 95.5 fL Normal 81.3-96.7 [facility] Comment on above: Performed By: #### C BCDIFF #### [facility] [address] [place] [address] 94187 Monocytes (Bld) [#/Vol] 0.4 x(10)3/cumm Normal 0.2-0.8 [facility] Comment on above: Performed By: #### C BCDIFF #### [facility] [address] [place] [address] 20945 Monocytes/100 WBC (Bld) 8.4 % Normal 3.3-11.6 [facility] Comment on above: Performed By: #### C BCDIFF #### [facility] [address] [place] [address] 51998 Neutrophils (Bld) [#/Vol] 2.6 x(10)3/cumm Normal 1.3-7.4 [facility] Comment on above: Performed By: #### C BCDIFF #### [facility] [address] [place] [address] 24152 Neutrophils/100 WBC (Bld) 54.9 % Normal 44.9-78.8 [facility] Comment on above: Performed By: #### C BCDIFF #### [facility] [address] [place] [address] 84308 Platelet mean volume (Bld) [Entitic vol] 8.2 fL Normal 6.4-10.0 [facility] Comment on above: Performed By: #### C BCDIFF #### [facility] [address] [place] [address] 54343 Platelets (Bld) [#/Vol] 245 x(10)3/cumm Normal 138-367 [facility] Comment on above: Performed By: #### C BCDIFF #### [facility] [address] [place] [address] 26980 Plt Morph Normal [facility] Comment on above: Performed By: #### C BCDIFF #### [facility] [address] [place] [address] 61167 RBC (Bld) [#/Vol] 4.09 X(10)6/cumm Normal 3.90-5.10 [facility] Comment on above: Performed By: #### C BCDIFF #### [facility] [address] [place] [address] 66649 RBC Morph cont Normal [facility] Comment on above: Performed By: #### C BCDIFF #### [facility] [address] [place] [address] 89552 RBC morphology finding Nom (Bld) Normal [facility] Comment on above: Performed By: #### C BCDIFF #### [facility] [address] [place] [address] 79873 WBC (Bld) [#/Vol] 4.7 x(10)3/cumm Normal 3.6-10.3 [facility] Comment on above: Performed By: #### C BCDIFF #### [facility] [address] [place], [place] [id number] WBC Morph [facility] Comment on above: Performed By: #### C BCDIFF #### [facility] [address] [place] [address] CORONAVIRUS 2019 BY PCRon Lab Specimen Source Nasal, Nasopharyngeal Normal [facility] Comment on above: Performed By: #### C OV19 #### [facility] [address] [place] [address] COVID-19 by PCR ()on 02-01 Coronavirus 2019 PCR Not Detected Normal Not Detected [facility] Comment on above: Order Comment: Nasal swab in Saline, Jose M opharyngeal or Oropharyngeal in viral transport media or saline Performed By: #### C OVUH #### [place] [address] Performing Lab Testing performed by : [facility] [address] [place] [address] CLIA # [id number] [facility] Comment on above: Order Comment: Nasal swab in Saline, Jose M opharyngeal or Oropharyngeal in viral transport media or saline Performed By: #### C OVUH #### [place] [address] Specimen source Nom (Unsp spec) Nasal, PSYCHIATRIC TECH [facility] Comment on above: Order Comment: Nasal swab in Saline, Jose M opharyngeal or Oropharyngeal in viral transport media or saline Performed By: #### C OVUH #### [place] [id number] CR Finger(s) Min 2 Views [place] ateralon 01-02-2019 CR Finger(s) Min 2 Views Bilateral Patient Name: AMANDA GRUBBS Diagnostic Radiology Exam Date/Time 01/02/2019 08:01:00 EDT Exam CR Finger(s) Min 2 Views Ordering Physician MD GONGORA DEREK J Accession Number [id number] CPT4 Codes 39140 () Reason For Exam PAIN Report Right finger three views HISTORY: Pain Three views of the fifth digit are submitted for interpretation. No fracture or dislocation. No significant degenerative changes. IMPRESSION: Normal examination. Report Dictated on Final Dictating Physician: MD CARRILLO MALAY Signed Date and Time: 01/02/2019 11:20 am Signed by: MD CARRILLO MALAY Transcribed Date and Time: 01/02/2019 11:21 Normal [facility] CR Finger(s) Min 2 Views [place] 01-02-2019 CR Finger(s) Min 2 Views Right Patient Name: AMANDA GRUBBS Diagnostic Radiology Exam Date/Time 01/02/2019 08:01:18 EDT Exam CR Finger(s) Min 2 Views Right Ordering Physician MD GONGORA DEREK J Accession Number [id number] Reason For Exam 5th digit pain Report Right finger three views HISTORY: Pain Three views of the fifth digit are submitted for interpretation. No fracture or dislocation. No significant degenerative changes. IMPRESSION: Normal examination. Report Dictated on Final Dictating Physician: MD CARRILLO MALAY Signed Date and Time: 01/02/2019 11:20 am Signed by: MD CARRILLO MALAY Transcribed Date and Time: 01/21/2019 8:27 Normal [facility] Basic Metabolic Panelon 10-3 Calcium mass conc 8.4 mg/dL Normal 8.4-10.4 [facility] Comment on above: Performed By: #### H A1C2, HEMOG, ALB3, BMP3 ####[place] [id number] [place] [address] Anion gap 3 molar conc 7 Normal [facility] Comment on above: Performed By: #### H A1C2, HEMOG, ALB3, BMP3 ####[place] [address] [place] [address] CO2 molar conc 23 mmol/L Normal 22-30 [facility] Comment on above: Performed By: #### H A1C2, HEMOG, ALB3, BMP3 ####[place] [id number] [place], [place] Creatinine mass conc 0.86 mg/dL Normal 0.52-1.25 [facility] Comment on above: Performed By: #### H A1C2, HEMOG, ALB3, BMP3 ####[place] [address] [place] [address] GFR/1.73 sq M predicted among blacks MDRD vol rate/area (S/P/Bld) mL/min/{1.73_m2} Normal >60 [facility] Comment on above: Performed By: #### H A1C2, HEMOG, ALB3, BMP3 ####[place] [id number] [place], [place] GFR/1.73 sq M predicted among non-blacks MDRD vol rate/area (S/P/Bld) mL/min/{1.73_m2} Normal >60 [facility] Comment on above: Result Comment: Sour ce- MDRD equation with creatinine calibration to IDMS(NKDEP) eGFR not recommended for drug dose adjustment Performed By: #### H A1C2, HEMOG, ALB3, BMP3 ####[place] [id number] [place], [place] Glucose mass conc 107 mg/dL High 70-100 [facility] Comment on above: Performed By: #### H A1C2, HEMOG, ALB3, BMP3 ####[place] [id number] [place], [place] Urea nitrogen mass conc 11 mg/dL Normal 7-20 [facility] Comment on above: Performed By: #### H A1C2, HEMOG, ALB3, BMP3 ####[place] [id number] [place], [place] Chloride molar conc 108 mmol/L High 98-107 [facility] Comment on above: Performed By: #### H A1C2, HEMOG, ALB3, BMP3 ####[place] [id number] [place], [place] Potassium molar conc 4.1 mmol/L Normal 3.5-5.1 [facility] Comment on above: Performed By: #### H A1C2, HEMOG, ALB3, BMP3 ####[address] Sodium molar conc 138 mmol/L Normal 137-145 [facility] Comment on above: Performed By: #### H A1C2, HEMOG, ALB3, BMP3 ####[address] Hemogram w/ Autodiffon 04-10 Abs Baso Cnt 0.0 10*3/uL Normal 0.0-0.2 [facility] Comment on above: Performed By: #### H A1C2, HEMOG, ALB3, BMP3 ####[address] Abs Neutrophile Cnt 7.7 10*3/uL High 1.8-7.0 [facility] Comment on above: Performed By: #### H A1C2, HEMOG, ALB3, BMP3 ####[address] Basophils/100 WBC Auto (Bld) 0.2 % Normal 0.0-2.0 [facility] Comment on above: Performed By: #### H A1C2, HEMOG, ALB3, BMP3 ####[address] Eosinophils Auto #/vol (Bld) 0.0 10*3/uL Normal 0.0-0.5 [facility] Comment on above: Performed By: #### H A1C2, HEMOG, ALB3, BMP3 ####[address] Eosinophils/100 WBC Auto (Bld) 0.1 % Low 1.0-6.0 [facility] Comment on above: Performed By: #### H A1C2, HEMOG, ALB3, BMP3 ####[address] Erythrocyte distribution width Auto Ratio (RBC) 13.4 % Normal 11.5-14.5 [facility] Comment on above: Performed By: #### H A1C2, HEMOG, ALB3, BMP3 ####[address] Granulocytes/100 WBC (Bld) 74.9 % Normal 40.0-80.0 [facility] Comment on above: Performed By: #### H A1C2, HEMOG, ALB3, BMP3 ####[address] Hematocrit Auto Volume Fraction (Bld) 32.0 % Low 35.0-47.0 [facility] Comment on above: Performed By: #### H A1C2, HEMOG, ALB3, BMP3 ####[address] Hemoglobin mass conc (Bld) 10.9 g/dL Low 11.7-16.0 [facility] Comment on above: Performed By: #### H A1C2, HEMOG, ALB3, BMP3 ####[address] Lymphocytes Auto #/vol (Bld) 2.0 10*3/uL Normal 1.0-4.3 [facility] Comment on above: Performed By: #### H A1C2, HEMOG, ALB3, BMP3 ####[address] Lymphocytes/100 WBC Auto (Bld) 19.7 % Low 20.0-40.0 [facility] Comment on above: Performed By: #### H A1C2, HEMOG, ALB3, BMP3 ####[address] MCH Auto Entitic mass (RBC) 32.1 pg Normal 26.0-34.0 [facility] Comment on above: Performed By: #### H A1C2, HEMOG, ALB3, BMP3 ####[address] MCHC Auto mass conc (RBC) 34.2 % Normal 32.0-36.0 [facility] Comment on above: Performed By: #### H A1C2, HEMOG, ALB3, BMP3 ####[address] MCV Auto Entitic volume (RBC) 94.0 fL Normal 79.0-98.0 [facility] Comment on above: Performed By: #### H A1C2, HEMOG, ALB3, BMP3 ####[address] Monocytes Auto #/vol (Bld) 0.5 10*3/uL Normal 0.0-0.8 [facility] Comment on above: Performed By: #### H A1C2, HEMOG, ALB3, BMP3 ####[address] Monocytes/100 WBC Auto (Bld) 5.1 % Normal 2.0-10.0 [facility] Comment on above: Performed By: #### H A1C2, HEMOG, ALB3, BMP3 ####[address] Platelet mean volume Auto Entitic volume (Bld) 7.9 fL Normal 7.4-10.4 [facility] Comment on above: Performed By: #### H A1C2, HEMOG, ALB3, BMP3 ####[address] Platelets Auto #/vol (Bld) 248 10*3/uL Normal 140-440 [facility] Comment on above: Performed By: #### H A1C2, HEMOG, ALB3, BMP3 ####[address] RBC Auto #/vol (Bld) 3.40 10*6/uL Low 3.80-5.20 [facility] Comment on above: Performed By: #### H A1C2, HEMOG, ALB3, BMP3 ####[address] WBC Auto #/vol (Bld) 10.3 10*3/uL Normal 3.6-10.7 [facility] Comment on above: Performed By: #### H A1C2, HEMOG, ALB3, BMP3 ####[place] [id number] [place], [place] Magnesiumon 04-10-2018 Magnesium mass conc 2.5 mg/dL High 1.6-2.3 [facility] Comment on above: Performed By: #### H A1C2, HEMOG, ALB3, BMP3 ####[place] [id number] [place], [place] Phosphoruson 04-10-2018 Phosphate mass conc 3.3 mg/dL Normal 2.5-4.5 [facility] Comment on above: Performed By: #### H A1C2, HEMOG, ALB3, BMP3 ####[place] [id number] [place], [place] Basic Metabolic Panelon 03-13 Anion gap 3 molar conc 14 Normal [facility] Comment on above: Performed By: #### H A1C2, HEMOG, ALB3, BMP3 ####[facility] [id number] [place], [place] Calcium mass conc 8.6 mg/dL Normal 8.4-10.4 [facility] Comment on above: Performed By: #### H A1C2, HEMOG, ALB3, BMP3 ####[place] [id number] [place], [place] CO2 molar conc 20 mmol/L Low 22-30 [facility] Comment on above: Performed By: #### H A1C2, HEMOG, ALB3, BMP3 ####[facility] [id number] [place], [place] Glucose mass conc 210 mg/dL High 70-100 [facility] Comment on above: Performed By: #### H A1C2, HEMOG, ALB3, BMP3 ####[facility] [id number] [place], [place] Urea nitrogen mass conc 14 mg/dL Normal 7-20 [facility] Comment on above: Performed By: #### H A1C2, HEMOG, ALB3, BMP3 ####[place] [id number] [place], [place] Creatinine mass conc 0.85 mg/dL Normal 0.52-1.25 [facility] Comment on above: Performed By: #### H A1C2, HEMOG, ALB3, BMP3 ####[place] [id number] [place], [place] GFR/1.73 sq M predicted among blacks MDRD vol rate/area (S/P/Bld) mL/min/{1.73_m2} Normal >60 [facility] Comment on above: Performed By: #### H A1C2, HEMOG, ALB3, BMP3 ####[address] GFR/1.73 sq M predicted among non-blacks MDRD vol rate/area (S/P/Bld) mL/min/{1.73_m2} Normal >60 [facility] Comment on above: Result Comment: Sour ce- MDRD equation with creatinine calibration to IDMS(NKDEP) eGFR not recommended for drug dose adjustment Performed By: #### H A1C2, HEMOG, ALB3, BMP3 ####[address] Potassium molar conc 4.1 mmol/L Normal 3.5-5.1 [facility] Comment on above: Performed By: #### H A1C2, HEMOG, ALB3, BMP3 ####[facility] [id number] [place], [place] Sodium molar conc 138 mmol/L Normal 137-145 [facility] Comment on above: Performed By: #### H A1C2, HEMOG, ALB3, BMP3 ####[facility] [address] Chloride molar conc 104 mmol/L Normal 98-107 [facility] Comment on above: Performed By: #### H A1C2, HEMOG, ALB3, BMP3 ####[place] [id number] [place], [place] Hemogram w/ Autodiffon 04-09 Abs Baso Cnt 0.0 10*3/uL Normal 0.0-0.2 [facility] Comment on above: Performed By: #### H A1C2, HEMOG, ALB3, BMP3 ####[address] Abs Neutrophile Cnt 12.0 10*3/uL High 1.8-7.0 [facility] Comment on above: Performed By: #### H A1C2, HEMOG, ALB3, BMP3 ####[address] Basophils/100 WBC Auto (Bld) 0.2 % Normal 0.0-2.0 [facility] Comment on above: Performed By: #### H A1C2, HEMOG, ALB3, BMP3 ####[address] Eosinophils Auto #/vol (Bld) 0.0 10*3/uL Normal 0.0-0.5 [facility] Comment on above: Performed By: #### H A1C2, HEMOG, ALB3, BMP3 ####[address] Eosinophils/100 WBC Auto (Bld) 0.0 % Low 1.0-6.0 [facility] Comment on above: Performed By: #### H A1C2, HEMOG, ALB3, BMP3 ####[address] Erythrocyte distribution width Auto Ratio (RBC) 13.3 % Normal 11.5-14.5 [facility] Comment on above: Performed By: #### H A1C2, HEMOG, ALB3, BMP3 ####[address] Granulocytes/100 WBC (Bld) 91.6 % High 40.0-80.0 [facility] Comment on above: Performed By: #### H A1C2, HEMOG, ALB3, BMP3 ####[address], [place] Hematocrit Auto Volume Fraction (Bld) 38.4 % Normal 35.0-47.0 [facility] Comment on above: Performed By: #### H A1C2, HEMOG, ALB3, BMP3 ####[address] Hemoglobin mass conc (Bld) 13.0 g/dL Normal 11.7-16.0 [facility] Comment on above: Performed By: #### H A1C2, HEMOG, ALB3, BMP3 ####[address] Lymphocytes Auto #/vol (Bld) 0.6 10*3/uL Low 1.0-4.3 [facility] Comment on above: Performed By: #### H A1C2, HEMOG, ALB3, BMP3 ####[address] Lymphocytes/100 WBC Auto (Bld) 4.8 % Low 20.0-40.0 [facility] Comment on above: Performed By: #### H A1C2, HEMOG, ALB3, BMP3 ####[address] MCH Auto Entitic mass (RBC) 31.8 pg Normal 26.0-34.0 [facility] Comment on above: Performed By: #### H A1C2, HEMOG, ALB3, BMP3 ####[address] MCHC Auto mass conc (RBC) 33.9 % Normal 32.0-36.0 [facility] Comment on above: Performed By: #### H A1C2, HEMOG, ALB3, BMP3 ####[address] MCV Auto Entitic volume (RBC) 93.7 fL Normal 79.0-98.0 [facility] Comment on above: Performed By: #### H A1C2, HEMOG, ALB3, BMP3 ####[address] Monocytes Auto #/vol (Bld) 0.5 10*3/uL Normal 0.0-0.8 [facility] Comment on above: Performed By: #### H A1C2, HEMOG, ALB3, BMP3 ####[place] [id number] [place], [place] Monocytes/100 WBC Auto (Bld) 3.4 % Normal 2.0-10.0 [facility] Comment on above: Performed By: #### H A1C2, HEMOG, ALB3, BMP3 ####[place] [id number] [place], [place] Platelet mean volume Auto Entitic volume (Bld) 8.1 fL Normal 7.4-10.4 [facility] Comment on above: Performed By: #### H A1C2, HEMOG, ALB3, BMP3 ####[address] Platelets Auto #/vol (Bld) 299 10*3/uL Normal 140-440 [facility] Comment on above: Performed By: #### H A1C2, HEMOG, ALB3, BMP3 ####[place] [id number] [place], [place] RBC Auto #/vol (Bld) 4.09 10*6/uL Normal 3.80-5.20 [facility] Comment on above: Performed By: #### H A1C2, HEMOG, ALB3, BMP3 ####[place] [id number] [place], [place] WBC Auto #/vol (Bld) 13.1 10*3/uL High 3.6-10.7 [facility] Comment on above: Performed By: #### H A1C2, HEMOG, ALB3, BMP3 ####[place] [id number] [place], [place] Magnesiumon 04-09-2018 Magnesium mass conc 2.2 mg/dL Normal 1.6-2.3 [facility] Comment on above: Performed By: #### H A1C2, HEMOG, ALB3, BMP3 ####[facility] [place] [address] Phosphoruson 04-09-2018 Phosphate mass conc 2.3 mg/dL Low 2.5-4.5 [facility] Comment on above: Performed By: #### H A1C2, HEMOG, ALB3, BMP3 ####[facility] [place] [address] RF UGI w/o KUB w/ or w/o Del ay Flmon 04-09-2018 RF UGI w/o KUB w/ or w/o Delay Flm Patient Name: AMANDA GRUBBS Fluoroscopy Exam Date/Time 04/09/2018 08:17:29 EDT Exam RF UGI w/o KUB and w/ or w/o Delay Flm Ordering Physician MD TRUONG NICHOLAS Accession Number [id number] [facility]4 Codes 51466 () Reason For Exam bariatric surgery. gastrograffin. [...] Transcribed Date and Time: 04/09/2018 8:37 Normal [facility] Basic Metabolic Panelon 10-2 Calcium mass conc 8.8 mg/dL Normal 8.4-10.4 [facility] Comment on above: Performed By: #### H EMDF, MG3, BMP3, PHOS3, ICA ####[place] [id number] [place] [address] Anion gap 3 molar conc 12 Normal [facility] Comment on above: Performed By: #### H EMDF, MG3, BMP3, PHOS3, ICA ####[place] [address] [place] [address] CO2 molar conc 23 mmol/L Normal 22-30 [facility] Comment on above: Performed By: #### H EMDF, MG3, BMP3, PHOS3, ICA ####[place] [address] [place] [address] Glucose mass conc 201 mg/dL High 70-100 [facility] Comment on above: Performed By: #### H EMDF, MG3, BMP3, PHOS3, ICA ####[place] [id number] [place] [address] Urea nitrogen mass conc 13 mg/dL Normal 7-20 [facility] Comment on above: Performed By: #### H EMDF, MG3, BMP3, PHOS3, ICA ####[address] [address] Creatinine mass conc 0.96 mg/dL Normal 0.52-1.25 [facility] Comment on above: Performed By: #### H EMDF, MG3, BMP3, PHOS3, ICA ####[place] [id number] [place] [address] GFR/1.73 sq M predicted among blacks MDRD vol rate/area (S/P/Bld) mL/min/{1.73_m2} Normal >60 [facility] Comment on above: Performed By: #### H EMDF, MG3, BMP3, PHOS3, ICA ####[place] [id number] [place] [address] GFR/1.73 sq M predicted among non-blacks MDRD vol rate/area (S/P/Bld) mL/min/{1.73_m2} Normal >60 [facility] Comment on above: Result Comment: Sour ce- MDRD equation with creatinine calibration to IDMS(NKDEP) eGFR not recommended for drug dose adjustment Performed By: #### H EMDF, MG3, BMP3, PHOS3, ICA ####[address] Chloride molar conc 102 mmol/L Normal 98-107 [facility] Comment on above: Performed By: #### H EMDF, MG3, BMP3, PHOS3, ICA ####[address] Potassium molar conc 3.9 mmol/L Normal 3.5-5.1 [facility] Comment on above: Performed By: #### H EMDF, MG3, BMP3, PHOS3, ICA ####[address] Sodium molar conc 138 mmol/L Normal 137-145 [facility] Comment on above: Performed By: #### H EMDF, MG3, BMP3, PHOS3, ICA ####[address] Calcium,Ionizedon 04-08-2018 Ionized Ca,Measured 4.30 mg/dL Normal 4.30-5.20 [facility] Comment on above: Performed By: #### H A1C2, HEMOG, ALB3, BMP3 ####[address] pH, Ionized Calcium 7.29 Low 7.31-7.46 [facility] Comment on above: Performed By: #### H A1C2, HEMOG, ALB3, BMP3 ####[address] Hemogram w/ Autodiffon 04-08 Abs Baso Cnt 0.0 10*3/uL Normal 0.0-0.2 [facility] Comment on above: Performed By: #### H EMDF, MG3, BMP3, PHOS3, ICA ####[id number] [place] [address] Abs Neutrophile Cnt 10.7 10*3/uL High 1.8-7.0 [facility] Comment on above: Performed By: #### H EMDF, MG3, BMP3, PHOS3, ICA ####[address] [address] Basophils/100 WBC Auto (Bld) 0.1 % Normal 0.0-2.0 [facility] Comment on above: Performed By: #### H EMDF, MG3, BMP3, PHOS3, ICA ####[address] [address] Eosinophils Auto #/vol (Bld) 0.0 10*3/uL Normal 0.0-0.5 [facility] Comment on above: Performed By: #### H EMDF, MG3, BMP3, PHOS3, ICA ####[address] [address] Eosinophils/100 WBC Auto (Bld) 0.1 % Low 1.0-6.0 [facility] Comment on above: Performed By: #### H EMDF, MG3, BMP3, PHOS3, ICA ####[address] [address] Erythrocyte distribution width Auto Ratio (RBC) 13.3 % Normal 11.5-14.5 [facility] Comment on above: Performed By: #### H EMDF, MG3, BMP3, PHOS3, ICA ####[address] [id number] Granulocytes/100 WBC (Bld) 88.5 % High 40.0-80.0 [facility] Comment on above: Performed By: #### H EMDF, MG3, BMP3, PHOS3, ICA ####[address] [address] Hematocrit Auto Volume Fraction (Bld) 41.9 % Normal 35.0-47.0 [facility] Comment on above: Performed By: #### H EMDF, MG3, BMP3, PHOS3, ICA ####[address] Hemoglobin mass conc (Bld) 14.0 g/dL Normal 11.7-16.0 [facility] Comment on above: Performed By: #### H EMDF, MG3, BMP3, PHOS3, ICA ####[address] Lymphocytes Auto #/vol (Bld) 1.1 10*3/uL Normal 1.0-4.3 [facility] Comment on above: Performed By: #### H EMDF, MG3, BMP3, PHOS3, ICA ####[address] Lymphocytes/100 WBC Auto (Bld) 9.2 % Low 20.0-40.0 [facility] Comment on above: Performed By: #### H EMDF, MG3, BMP3, PHOS3, ICA ####[address] MCH Auto Entitic mass (RBC) 31.5 pg Normal 26.0-34.0 [facility] Comment on above: Performed By: #### H EMDF, MG3, BMP3, PHOS3, ICA ####[address] MCHC Auto mass conc (RBC) 33.4 % Normal 32.0-36.0 [facility] Comment on above: Performed By: #### H EMDF, MG3, BMP3, PHOS3, ICA ####[address] MCV Auto Entitic volume (RBC) 94.2 fL Normal 79.0-98.0 [facility] Comment on above: Performed By: #### H EMDF, MG3, BMP3, PHOS3, ICA ####[address] Monocytes Auto #/vol (Bld) 0.3 10*3/uL Normal 0.0-0.8 [facility] Comment on above: Performed By: #### H EMDF, MG3, BMP3, PHOS3, ICA ####[id number] [place], [place] Monocytes/100 WBC Auto (Bld) 2.1 % Normal 2.0-10.0 [facility] Comment on above: Performed By: #### H EMDF, MG3, BMP3, PHOS3, ICA ####[address] Platelet mean volume Auto Entitic volume (Bld) 7.8 fL Normal 7.4-10.4 [facility] Comment on above: Performed By: #### H EMDF, MG3, BMP3, PHOS3, ICA ####[address] Platelets Auto #/vol (Bld) 293 10*3/uL Normal 140-440 [facility] Comment on above: Performed By: #### H EMDF, MG3, BMP3, PHOS3, ICA ####[address] RBC Auto #/vol (Bld) 4.45 10*6/uL Normal 3.80-5.20 [facility] Comment on above: Performed By: #### H EMDF, MG3, BMP3, PHOS3, ICA ####[address] WBC Auto #/vol (Bld) 12.1 10*3/uL High 3.6-10.7 [facility] Comment on above: Performed By: #### H EMDF, MG3, BMP3, PHOS3, ICA ####[address] Magnesiumon 04-08-2018 Magnesium mass conc 2.5 mg/dL High 1.6-2.3 [facility] Comment on above: Performed By: #### H EMDF, MG3, BMP3, PHOS3, ICA ####[address] [id number] Phosphoruson 04-08-2018 Phosphate mass conc 4.5 mg/dL Normal 2.5-4.5 [facility] Comment on above: Performed By: #### H EMDF, MG3, BMP3, PHOS3, ICA ####[facility] [id number] [place] [address] Surgical Pathologyon 018 Surgical Pathology [id number] [facility] DEPARTMENT OF [facility] PATHOLOGY AND LABORATORY MEDICINE [address] [place] [address] FINAL SURGICAL PATHOLOGY REPORT NAM E: AMANDA GRUBBS .O.B.: 1970 47 Y F BILLING NO.: [id number] PROCEDURE 04/08/2018 DATE:SURGEON: ROLAN [...] theirperformance characteristics determined by the clinical laboratories [facility]. They have not been cleared by [...] false negativity on decalcified specimens.Professional Performing Location: [address] [address]. DEPARTMENT OF PATHOLOGY AND LABORATORY MEDICINE [place], [place] [address] Normal [facility] Basic Metabolic Panelon 10-2 Anion gap 3 molar conc 10 Normal [facility] Comment on above: Performed By: #### B MP3 ####[id number] [place] [address] Calcium mass conc 10.0 mg/dL Normal 8.4-10.4 [facility] Comment on above: Performed By: #### B MP3 ####[facility] [id number] [address] [address] CO2 molar conc 26 mmol/L Normal 22-30 [facility] Comment on above: Performed By: #### B MP3 ####[facility] [id number] [facility] [address] Glucose mass conc 89 mg/dL Normal 70-100 [facility] Comment on above: Performed By: #### B MP3 ####[facility] [id number] [facility] [place] Urea nitrogen mass conc 18 mg/dL Normal 7-20 [facility] Comment on above: Performed By: #### B MP3 ####[facility] [id number] [address] [place] Creatinine mass conc 0.82 mg/dL Normal 0.52-1.25 [facility] Comment on above: Performed By: #### B MP3 ####[facility] [id number] [facility] [address] GFR/1.73 sq M predicted among blacks MDRD vol rate/area (S/P/Bld) mL/min/{1.73_m2} Normal >60 [facility] Comment on above: Performed By: #### B MP3 ####[facility] [id number] [facility] [address] GFR/1.73 sq M predicted among non-blacks MDRD vol rate/area (S/P/Bld) mL/min/{1.73_m2} Normal >60 [facility] Comment on above: Result Comment: Sour ce- MDRD equation with creatinine calibration to IDMS(NKDEP) eGFR not recommended for drug dose adjustment Performed By: #### B MP3 ####[facility] [id number] [facility] [address] Chloride molar conc 103 mmol/L Normal 98-107 [facility] Comment on above: Performed By: #### B MP3 ####[id number] [place] [address] Potassium molar conc 4.9 mmol/L Normal 3.5-5.1 [facility] Comment on above: Performed By: #### B MP3 ####[id number] [place] [address] Sodium molar conc 139 mmol/L Normal 137-145 [facility] Comment on above: Performed By: #### B MP3 ####[address] [place], [place] Albumin, Serumon 03-14-2018 Albumin mass conc 4.7 g/dL Normal 3.5-5.0 [facility] Comment on above: Performed By: #### H A1C2, HEMOG, ALB3, BMP3 ####[address] Basic Metabolic Panelon Anion gap 3 molar conc 11 Normal [facility] Comment on above: Performed By: #### H A1C2, HEMOG, ALB3, BMP3 ####[address] [place], [place] Calcium mass conc 10.1 mg/dL Normal 8.4-10.4 [facility] Comment on above: Performed By: #### H A1C2, HEMOG, ALB3, BMP3 ####[address] [place], [place] CO2 molar conc 27 mmol/L Normal 22-30 [facility] Comment on above: Performed By: #### H A1C2, HEMOG, ALB3, BMP3 ####[id number] [place], [place] Glucose mass conc 90 mg/dL Normal 70-100 [facility] Comment on above: Performed By: #### H A1C2, HEMOG, ALB3, BMP3 ####[id number] [place], [place] Urea nitrogen mass conc 12 mg/dL Normal 7-20 [facility] Comment on above: Performed By: #### H A1C2, HEMOG, ALB3, BMP3 ####[id number] [place], [place] Creatinine mass conc 0.83 mg/dL Normal 0.52-1.25 [facility] Comment on above: Performed By: #### H A1C2, HEMOG, ALB3, BMP3 ####[facility] [place] [address] GFR/1.73 sq M predicted among blacks MDRD vol rate/area (S/P/Bld) mL/min/{1.73_m2} Normal >60 [facility] Comment on above: Performed By: #### H A1C2, HEMOG, ALB3, BMP3 ####[id number] [place], [place] GFR/1.73 sq M predicted among non-blacks MDRD vol rate/area (S/P/Bld) mL/min/{1.73_m2} Normal >60 [facility] Comment on above: Result Comment: Sour ce- MDRD equation with creatinine calibration to IDMS(NKDEP) eGFR not recommended for drug dose adjustment Performed By: #### H A1C2, HEMOG, ALB3, BMP3 ####[id number] [place], [place] Chloride molar conc 102 mmol/L Normal 98-107 [facility] Comment on above: Performed By: #### H A1C2, HEMOG, ALB3, BMP3 ####[id number] [place], [place] Potassium molar conc 4.7 mmol/L Normal 3.5-5.1 [facility] Comment on above: Performed By: #### H A1C2, HEMOG, ALB3, BMP3 ####[id number] [place] [address] Sodium molar conc 140 mmol/L Normal 137-145 [facility] Comment on above: Performed By: #### H A1C2, HEMOG, ALB3, BMP3 ####[id number] [place] [address] Hemoglobin A1Con 03-14-2018 Glucose mass conc 120 mg/dL Normal [facility] Comment on above: Performed By: #### H A1C2, HEMOG, ALB3, BMP3 ####[address] Hemoglobin A1c/Hemoglobin.total mass fraction (Bld) 5.8 % High 4.0-5.7 [facility] Comment on above: Result Comment: --Hg bA1C levels may not be accurate in patients who haverenal disease, received recent blood transfusions, are anemic,or who have dyshemoglobinemia. Performed By: #### H A1C2, HEMOG, ALB3, BMP3 ####[address] Hemogramon 03-14-2018 Erythrocyte distribution width Auto Ratio (RBC) 13.3 % Normal 11.5-14.5 [facility] Comment on above: Performed By: #### H A1C2, HEMOG, ALB3, BMP3 ####[address] Hematocrit Auto Volume Fraction (Bld) 38.9 % Normal 35.0-47.0 [facility] Comment on above: Performed By: #### H A1C2, HEMOG, ALB3, BMP3 ####[address] Hemoglobin mass conc (Bld) 13.2 g/dL Normal 11.7-16.0 [facility] Comment on above: Performed By: #### H A1C2, HEMOG, ALB3, BMP3 ####[address] MCH Auto Entitic mass (RBC) 31.9 pg Normal 26.0-34.0 [facility] Comment on above: Performed By: #### H A1C2, HEMOG, ALB3, BMP3 ####[address] MCHC Auto mass conc (RBC) 34.0 % Normal 32.0-36.0 [facility] Comment on above: Performed By: #### H A1C2, HEMOG, ALB3, BMP3 ####[facility] [id number] [place], [place] MCV Auto Entitic volume (RBC) 93.9 fL Normal 79.0-98.0 [facility] Comment on above: Performed By: #### H A1C2, HEMOG, ALB3, BMP3 ####[id number] [place], [place] Platelet mean volume Auto Entitic volume (Bld) 7.9 fL Normal 7.4-10.4 [facility] Comment on above: Performed By: #### H A1C2, HEMOG, ALB3, BMP3 ####[id number] [place], [place] Platelets Auto #/vol (Bld) 304 10*3/uL Normal 140-440 [facility] Comment on above: Performed By: #### H A1C2, HEMOG, ALB3, BMP3 ####[address] RBC Auto #/vol (Bld) 4.15 10*6/uL Normal 3.80-5.20 [facility] Comment on above: Performed By: #### H A1C2, HEMOG, ALB3, BMP3 ####[id number] [place], [place] WBC Auto #/vol (Bld) 6.7 10*3/uL Normal 3.6-10.7 [facility] Comment on above: Performed By: #### H A1C2, HEMOG, ALB3, BMP3 ####[address] Surgical Pathologyon 018 Surgical Pathology [id number] [facility] DEPARTMENT OF [facility] PATHOLOGY AND LABORATORY MEDICINE [address] [place] [address] FINAL SURGICAL PATHOLOGY REPORT NAM E: AMANDA GRUBBS .O.B.: 1970 47 Y [place] NO.: [id number]: [id number] PROCEDURE 11/27/2017 DATE:SURGEON: ROLAN JORDAN M.D. [...] theirperformance characteristics determined by the clinical laboratories [facility]. They have not been cleared by [...] false negativity on decalcified specimens.Professional Performing Location: [place] [address]. DEPARTMENT OF PATHOLOGY AND LABORATORY MEDICINE [place], [place] [address] Normal [facility] Vital Signs Date Time Vital Sign Value Performing Clinician Facility 03-05-2025 08:41-0400 Body height 160.[address] Franky Pearson DO Work Phone: [facility] 03-05-2025 08:41-0400 Body mass index (BMI) [Ratio] 29.7 kg/m2 Dr. Franky Pearson DO Work Phone: [facility] 03-05-2025 08:41-0400 Body temperature 98.2 [degF] Dr. Franky Pearson DO Work Phone: [facility] 03-05-2025 08:41-0400 Body weight 76.[address] Franky Pearson DO Work Phone: [facility] 03-05-2025 08:41-0400 Diastolic blood pressure 83 mm[Hg] Dr. Franky Pearson DO Work Phone: [facility] 03-05-2025 08:41-0400 Heart rate 80 /min Dr. Franky Pearson DO Work Phone: [facility] 03-05-2025 08:41-0400 Respiratory rate 16 /min Dr. Franky Pearson DO Work Phone: [facility] 03-05-2025 08:41-0400 SaO2% (BldA) [Mass fraction] 97 % Dr. Franky Perason DO Work Phone: [facility] 03-05-2025 08:41-0400 Systolic blood pressure 123 mm[Hg] Dr. Franky Pearson DO Work Phone: [facility] 02-06-2025 08:21-0400 Body height 160.[address] Franky Pearson DO Work Phone: [facility] 02-06-2025 08:21-0400 Body mass index (BMI) [Ratio] 29.9 kg/m2 Dr. Franky Pearson DO Work Phone: [facility] 02-06-2025 08:21-0400 Body weight 76.[address] Franky Pearson DO Work Phone: [facility] 02-02-2025 13:41-0400 Body temperature 98.3 [degF] Dr. Franky Pearson DO Work Phone: [facility] 02-02-2025 13:41-0400 Diastolic blood pressure 62 mm[Hg] Dr. Franky Pearson DO Work Phone: [facility] 02-02-2025 13:41-0400 Heart rate 81 /min Dr. Franky Pearson DO Work Phone: [facility] 02-02-2025 13:41-0400 Respiratory rate 16 /min Dr. Franky Pearson DO Work Phone: [facility] 02-02-2025 13:41-0400 SaO2% (BldA) [Mass fraction] 98 % Dr. Franky Pearson DO Work Phone: [facility] 02-02-2025 13:41-0400 Systolic blood pressure 122 mm[Hg] Dr. Franky Pearson DO Work Phone: [facility] 01-29-2025 09:18-0400 Body height 160.[address] Franky Pearson DO Work Phone: [facility] 01-29-2025 09:18-0400 Body mass index (BMI) [Ratio] 29.9 kg/m2 Dr. Franky Pearson DO Work Phone: [facility] 01-29-2025 09:18-0400 Body weight 76.[address] Franky Pearson DO Work Phone: [facility] 01-29-2025 09:18-0400 Diastolic blood pressure 72 mm[Hg] Dr. Franky Pearson DO Work Phone: [facility] 01-29-2025 09:18-0400 Heart rate 90 /min Dr. Franky Pearson DO Work Phone: [facility] 01-29-2025 09:18-0400 Respiratory rate 16 /min Dr. Franky Pearson DO Work Phone: [facility] 01-29-2025 09:18-0400 SaO2% (BldA) [Mass fraction] 98 % Dr. Franky Pearson DO Work Phone: [facility] 01-29-2025 09:18-0400 Systolic blood pressure 116 mm[Hg] Dr. Franky Pearson DO Work Phone: [facility] 01-16-2025 07:25-0400 Body temperature 98.1 [degF] Dr. Franky Pearson DO Work Phone: [facility] 01-16-2025 07:25-0400 Diastolic blood pressure 65 mm[Hg] Dr. Franky Pearson DO Work Phone: [facility] 01-16-2025 07:25-0400 Heart rate 72 /min Dr. Franky Pearson DO Work Phone: [facility] 01-16-2025 07:25-0400 Respiratory rate 16 /min Dr. Franky Pearson DO Work Phone: [facility] 01-16-2025 07:25-0400 SaO2% (BldA) [Mass fraction] 100 % Dr. Franky Pearson DO Work Phone: [facility] 01-16-2025 07:25-0400 Systolic blood pressure 97 mm[Hg] Dr. Franky Pearson DO Work Phone: [facility] 01-16-2025 05:54-0400 Body height 160.[address] Franky Pearson DO Work Phone: [facility] 01-16-2025 05:54-0400 Body mass index (BMI) [Ratio] 28.9 kg/m2 Dr. Franky Pearson DO Work Phone: [facility] 01-16-2025 05:54-0400 Body weight [address] Franky Pearson DO Work Phone: [facility] 11-26-2024 09:57-0400 Body height 160.[address] Franky Pearson DO Work Phone: [facility] 11-26-2024 09:57-0400 Body mass index (BMI) [Ratio] 29 kg/m2 Dr. Franky Pearson DO Work Phone: [facility] 11-26-2024 09:57-0400 Body temperature 98.5 [degF] Dr. Franky Pearson DO Work Phone: [facility] 11-26-2024 09:57-0400 Body weight 74.[address] Franky Pearson DO Work Phone: [facility] 11-26-2024 09:57-0400 Diastolic blood pressure 93 mm[Hg] Dr. Franky Pearson DO Work Phone: [facility] 11-26-2024 09:57-0400 Heart rate 85 /min Dr. Franky Pearson DO Work Phone: [facility] 11-26-2024 09:57-0400 Respiratory rate 16 /min Dr. Franky Pearson DO Work Phone: [facility] 11-26-2024 09:57-0400 SaO2% (BldA) [Mass fraction] 97 % Dr. Franky Pearson DO Work Phone: [facility] 11-26-2024 09:57-0400 Systolic blood pressure 139 mm[Hg] Dr. Franky Pearson DO Work Phone: [facility] 09-25-2024 10:43-0400 Body mass index (BMI) [Ratio] 29 kg/m2 Dr. Franky Pearson DO Work Phone: [facility] 09-25-2024 10:43-0400 Body weight 74.[address] Franky Pearson DO Work Phone: [facility] 09-25-2024 10:43-0400 Diastolic blood pressure 78 mm[Hg] Dr. Franky Pearson DO Work Phone: [facility] 09-25-2024 10:43-0400 Systolic blood pressure 118 mm[Hg] Dr. Franky Pearson DO Work Phone: [facility] 08-19-2024 07:30-0400 Body mass index (BMI) [Ratio] 29.2 kg/m2 Dr. Franky Pearson DO Work Phone: [facility] 08-19-2024 07:30-0400 Body temperature 97.5 [degF] Dr. Franky Pearson DO Work Phone: [facility] 08-19-2024 07:30-0400 Body weight 74.[address] Franky Pearson DO Work Phone: [facility] 08-19-2024 07:30-0400 Diastolic blood pressure 86 mm[Hg] Dr. Frnaky Pearson DO Work Phone: [facility] 08-19-2024 07:30-0400 Heart rate 84 /min Dr. Franky Pearson DO Work Phone: [facility] 08-19-2024 07:30-0400 Respiratory rate 18 /min Dr. Franky Pearson DO Work Phone: [facility] 08-19-2024 07:30-0400 SaO2% (BldA) [Mass fraction] 98 % Dr. Franky Pearson DO Work Phone: [facility] 08-19-2024 07:30-0400 Systolic blood pressure 126 mm[Hg] Dr. Franky Pearson DO Work Phone: [facility] 08-13-2024 08:34-0500 Body temperature 97.6 [degF] Dr. Franky Pearson DO Work Phone: [facility] 08-13-2024 08:34-0500 Diastolic blood pressure 60 mm[Hg] Dr. Franky Pearson DO Work Phone: [facility] 08-13-2024 08:34-0500 Heart rate 83 /min Dr. Franky Pearson DO Work Phone: [facility] 08-13-2024 08:34-0500 SaO2% (BldA) [Mass fraction] 99 % Dr. Franky Pearson DO Work Phone: [facility] 08-13-2024 08:34-0500 Systolic blood pressure 120 mm[Hg] Dr. Franky Pearson DO Work Phone: [facility] 05-13-2023 10:41-0500 Body height 160.[address] Yessi Mcqueen Work Phone: [facility] 05-13-2023 10:41-0500 Body temperature 98 [degF] Dr. Yessi Mcqueen Work Phone: [facility] 05-13-2023 10:41-0500 Diastolic blood pressure 88 mm[Hg] Dr. Yessi Mcqueen Work Phone: [facility] 05-13-2023 10:41-0500 Heart rate 81 /min Dr. Yessi Mcqueen Work Phone: [facility] 05-13-2023 10:41-0500 Respiratory rate 17 /min Dr. Yessi Mcqueen Work Phone: [facility] 05-13-2023 10:41-0500 SaO2% (BldA) [Mass fraction] 96 % Dr. Yessi Mcqueen Work Phone: [facility] 05-13-2023 10:41-0500 Systolic blood pressure 126 mm[Hg] Dr. Yessi Mcqueen Work Phone: [facility] 08-26-2022 19:04-0400 Body temperature 97.88 [degF] LINDA MARTINEZ MD [facility] 08-26-2022 18:57-0400 Body temperature 97.88 [degF] LINDA MARTINEZ MD [facility] 08-26-2022 18:30-0400 Diastolic Blood Pressure Non-Invasive 72 1 LINDA MARTINEZ MD [facility] 08-26-2022 18:30-0400 Heart rate 80 /min LINDA MARTINEZ MD [facility] 08-26-2022 18:30-0400 Respiratory rate 13 /min LINDA MARTINEZ MD [facility] 08-26-2022 18:30-0400 Systolic Blood Pressure Non-Invasive 130 1 LINDA MARTINEZ MD [facility] 08-26-2022 18:00-0400 Diastolic Blood Pressure Non-Invasive 69 1 LINDA MARTINEZ MD [facility] 08-26-2022 18:00-0400 Heart rate 81 /min LINDA MARTINEZ MD [facility] 08-26-2022 18:00-0400 Respiratory rate 14 /min LINDA MARTINEZ MD [facility] 08-26-2022 18:00-0400 Systolic Blood Pressure Non-Invasive 127 1 LINDA MARTINEZ MD [facility] 08-26-2022 17:30-0400 Diastolic Blood Pressure Non-Invasive 72 1 LINDA MARTINEZ MD [facility] 08-26-2022 17:30-0400 Heart rate 80 /min LINDA MARTINEZ MD [facility] 08-26-2022 17:30-0400 Respiratory rate 13 /min LINDA MARTINEZ MD [facility] 08-26-2022 17:30-0400 Systolic Blood Pressure Non-Invasive 130 1 LINDA MARTINEZ MD [facility] 08-26-2022 16:07-0400 Body temperature 96.62 [degF] LINDA MARTINEZ MD [facility] 08-18-2022 14:03-0500 Body height 160.7 cm Shayna Andrade MD Work Phone: [facility] 08-18-2022 14:03-0500 Body mass index (BMI) [Ratio] 31.74 kg/m2 Shayna Andrade MD Work Phone: [facility] 08-18-2022 14:03-0500 Body weight 81.92 kg Shayna Andrade MD Work Phone: [facility] 08-18-2022 14:03-0500 Diastolic blood pressure 79 mm[Hg] Shayna Andrade MD Work Phone: [facility] 08-18-2022 14:03-0500 Heart rate 94 /min Shayna Andrade MD Work Phone: [facility] 08-18-2022 14:03-0500 Systolic blood pressure 121 mm[Hg] Shayna Andrade MD Work Phone: [facility] 07-07-2022 10:09-0500 Body height 160.7 cm Shayna Andrade MD Work Phone: [facility] 07-07-2022 10:09-0500 Body mass index (BMI) [Ratio] 32.3 kg/m2 Shayna Andrade MD Work Phone: [facility] 07-07-2022 10:09-0500 Body weight 83.37 kg Shayna Andrade MD Work Phone: [facility] 07-07-2022 10:09-0500 Diastolic blood pressure 82 mm[Hg] Shayna Andrade MD Work Phone: [facility] 07-07-2022 10:09-0500 Heart rate 84 /min Shayna Andrade MD Work Phone: [facility] 07-07-2022 10:09-0500 Respiratory rate 14 /min Shayna Andrade MD Work Phone: [facility] 07-07-2022 10:09-0500 Systolic blood pressure 122 mm[Hg] Shanya Andrade MD Work Phone: [facility] 03-03-2022 09:25-0400 Diastolic Blood Pressure NBP [address] ROBSON PUGH MD [facility] 03-03-2022 09:25-0400 Heart rate 80 /min DR ROBSON PUGH MD [facility] 03-03-2022 09:25-0400 Respiratory rate 14 /min DR ROBSON PUGH MD [facility] 03-03-2022 09:25-0400 Systolic Blood Pressure NBP [address] ROBSON PUGH MD [facility] 03-03-2022 09:20-0400 Diastolic Blood Pressure NBP [address] ROBSON PUGH MD [facility] 03-03-2022 09:20-0400 Heart rate 73 /min DR ROBSON PUGH MD [facility] 03-03-2022 09:20-0400 Respiratory rate 21 /min DR ROBSON PUGH MD [facility] 03-03-2022 09:20-0400 Systolic Blood Pressure NBP [address] ROBSON PGUH MD [facility] 03-03-2022 09:16-0400 Diastolic Blood Pressure NBP [address] ROBSON PUGH MD [facility] 03-03-2022 09:16-0400 Heart rate 78 /min DR ROBSON PUGH MD [facility] 03-03-2022 09:16-0400 Respiratory rate 15 /min DR ROBSON PUGH MD [facility] 03-03-2022 09:16-0400 Systolic Blood Pressure NBP [address] ROBSON PUGH MD [facility] 03-03-2022 07:55-0400 Body height 162.[address] ROBSON PUGH MD [facility] 03-03-2022 07:55-0400 Body temperature 98.06 [degF] DR ROBSON PUGH MD [facility] 03-03-2022 07:55-0400 Body weight 79.[address] ROBSON PUGH MD [facility] 03-03-2022 07:55-0400 Body weight 30.07 kg/m2 DR ROBSON PUGH MD [facility] 05-22-2021 05:00-0500 Diastolic blood pressure 79 mm[Hg] RUY RIVERA MD [facility] 05-22-2021 05:00-0500 Heart rate 70 /min RUY RIVERA MD [facility] 05-22-2021 05:00-0500 Mean blood pressure 91 mm[Hg] RUY RIVERA MD [facility] 05-22-2021 05:00-0500 Reason For Taking VItal Signs RUY RIVERA MD [facility] 05-22-2021 05:00-0500 Respiratory rate 14 /min RUY RIVERA MD [facility] 05-22-2021 05:00-0500 Systolic blood pressure 114 mm[Hg] RUY RIVERA MD [facility] 05-22-2021 04:24-0500 Body temperature 98.06 [degF] RUY RIVERA MD [facility] 05-22-2021 04:24-0500 Diastolic blood pressure 97 mm[Hg] RUY RIVERA MD [facility] 05-22-2021 04:24-0500 Heart rate 81 /min RUY RIVERA MD [facility] 05-22-2021 04:24-0500 Mean blood pressure 108 mm[Hg] RUY RIVERA MD [facility] 05-22-2021 04:24-0500 Respiratory rate 16 /min RUY RIVERA MD [facility] 05-22-2021 04:24-0500 Systolic blood pressure 130 mm[Hg] RUY RIVERA MD [facility] Encounters Encounter Date Encounter Type Care Provider Facility Start: 05-15-2025 ambulatory Franky Pearson Facility: [facility] Start: 03-05-[address] Franky Pearson DO -Sleep Lab Work Phone: Start: 03-05-2025 End: 03-05-2025 Patient encounter procedure Kiersten PEREZ -[facility] Work Phone: Start: 03-05-2025 End: 03-05-[address] Franky Pearson DO Work Phone: -[facility] Start: 03-05-2025 End: 03-05-2025 ambulatory Franky Pearson Facility:[facility] Start: 02-19-2025 End: 02-19-[address] Franky Pearson DO Work Phone: [facility] Start: 02-19-2025 End: 02-19-[address] Franky Pearson DO -[facility] Work Phone: Start: 02-19-2025 End: 02-19-2025 ambulatory Franky Pearson Facility:[facility] Start: 02-06-2025 End: 02-06-[address] Allan Coleman MD -[facility] Start: 02-06-2025 End: 02-06-[address] Franky Pearson DO Work Phone: -[facility] Start: 02-02-2025 End: 02-02-2025 Patient encounter procedure Angus Villalobos [facility] -[facility] Work Phone: Start: 02-02-2025 End: 02-02-[address] Franky Pearson DO Work Phone: [facility] Start: 02-02-2025 End: 02-02-2025 ambulatory Angus HURT Facility:[facility] Start: 01-29-2025 End: 01-29-2025 Patient encounter procedure Kiersten PEREZ -[facility] Work Phone: Start: 01-29-2025 End: 01-29-[address] Franky Pearson DO Work Phone: -[facility] Start: 01-16-2025 ambulatory Franky Pearson Facility: [facility] Start: 01-16-2025 Non-patient / Non-visit Rock Joyner nd DO -[facility] Start: 01-16-2025 End: 01-16-2025 Admission to same day surgery center Rock Pineda DO -Endoscopy Work Phone: Start: 01-16-2025 End: 01-16-[address] Franky Pearson DO Work Phone: -Endoscopy Start: 01-05-2025 End: 01-05-[address] Yessi Mcqueen DC -[facility] Work Phone: Start: 01-05-2025 End: 01-05-[address] Franky Pearson DO Work Phone: -[facility] Start: 12-18-2024 End: 12-18-[address] Yessi Mcqueen DC -[facility] Work Phone: Start: 12-18-2024 End: 12-18-[address] Franky Pearson DO Work Phone: -[facility] Start: 11-26-2024 End: 11-26-2024 Patient encounter procedure Kiersten PEREZ -[facility] Work Phone: Start: 11-26-2024 End: 11-26-[address] Franky Pearson DO Work Phone: [facility] Work Phone: Start: 09-25-2024 End: 09-25-[address] Yessi Mcqueen DC -[facility] Work Phone: Start: 09-25-2024 End: 09-25-2024 ambulatory Yessi Mcqueen Facility:[facility] Start: 08-19-2024 End: 08-19-2024 Patient encounter procedure LACEY Lyman -[facility] Work Phone: Start: 08-19-2024 End: 08-19-2024 ambulatory Moon Lyman Facility:[facility] Start: 08-13-2024 End: 08-13-2024 Patient encounter procedure Jose M Carmonadarrin PSYCHIATRIC TECH-C -[facility] Work Phone: Start: 08-13-2024 End: 08-13-2024 ambulatory Franky Pearson Facility:[facility] Start: 07-23-2024 End: 07-23-2024 ambulatory Franky Pearson Facility:[facility] Start: 07-01-2024 End: 07-01-2024 ambulatory Franky Pearson Facility:[facility] Start: 06-30-2024 End: 06-30-2024 ambulatory Rolan Valdes NP Facility:[facility] Start: 06-27-2024 End: 06-27-2024 ambulatory Hans HURT Facility:[facility] Start: 06-13-2024 ambulatory Franky Pearson Facility: [facility] Start: 06-13-2024 End: 06-13-2024 ambulatory Franky Pearson Facility:[facility] Start: 05-13-2024 End: 05-13-2024 ambulatory Franky Pearson Facility:[facility] Start: 05-06-2024 ambulatory Franky Pearson Facility: [facility] Start: 05-06-2024 End: 05-06-2024 ambulatory Franky Pearson Facility:[facility] Start: 05-05-2024 End: 05-05-2024 ambulatory Franky Pearson Facility:[facility] Start: 04-17-2024 End: 04-17-2024 ambulatory Hans HURT Facility:[facility] Start: 04-15-2024 ambulatory Criselda Muñoz Facility :[facility] Start: 09-12-2023 End: 09-12-[address] Allan Coleman Work Phone: [facility] Work Phone: Start: 09-12-2023 End: 09-12-[address] Allan Coleman Work Phone: [facility] Start: 07-26-2023 End: 07-26-2023 ambulatory PSYCHIATRIC TECH-C Rolan Valdes PSYCHIATRIC TECH Work Phone: [facility] Work Phone: Start: 07-26-2023 End: 07-26-2023 Patient encounter procedure PSYCHIATRIC TECH-C Rolan Valdes PSYCHIATRIC TECH Work Phone: [facility]-Cat Scan, [facility] Work Phone: Start: 07-24-2023 End: 07-24-2023 ambulatory PSYCHIATRIC TECH-C Rolan Valdes PSYCHIATRIC TECH Work Phone: [facility] Work Phone: Start: 07-24-2023 End: 07-24-2023 Patient encounter procedure PSYCHIATRIC TECH-C Rolan Valdes PSYCHIATRIC TECH Work Phone: [facility]patient [facility] Work Phone: Start: 06-22-2023 End: 06-22-[address] Yessi Mcqueen Work Phone: [facility] Work Phone: Start: 06-22-2023 End: 06-22-[address] Yessi Mcqueen Work Phone: [facility] Start: 06-01-2023 End: 06-01-[address] Yessi Mcqueen Work Phone: [facility] Start: 05-13-2023 End: 05-13-[address] Yessi Mcqueen Work Phone: [facility] Work Phone: Start: 03-20-2023 End: 03-20-[address] Yessi Mcqueen Work Phone: [facility] Work Phone: Start: 01-16-2023 Telephone encounter Shayna mcdonald MD Work Phone: [facility] Comment on above: Appointment Start: 09-19-2022 End: 09-20-2022 ambulatory FRANKY HALKO DO Facility:[facility] Start: 09-13-2022 End: 09-14-2022 ambulatory FRANKY HALKO DO Facility:[facility] Start: 09-13-2022 End: 09-13-2022 Patient encounter procedure FRANKY HALKO DO [facility] Start: 09-02-2022 End: 09-03-2022 ambulatory FRANKY HALKO DO Facility:[facility] Start: 09-02-2022 End: 09-02-2022 Patient encounter procedure FRANKY HALKO DO [facility] Start: 08-26-2022 End: 08-26-2022 Emergency department patient visit LINDA MARTINEZ MD Facility:[facility] Start: 08-26-2022 End: 08-26-2022 Emergency department patient visit LINDA MARTINEZ MD [facility] Start: 08-22-2022 End: 08-23-2022 ambulatory FRANKY HALKO DO Facility:[facility] Start: 08-22-2022 End: 08-22-2022 Patient encounter procedure FRANKY HALKO DO [facility] Start: 08-18-2022 End: 08-18-2022 ambulatory SHAYNA ANDRADE [facility] Start: 08-18-2022 End: 08-18-2022 Office outpatient visit 15 minutes Shayna Andrade MD Work Phone: [facility] Comment on above: Pre-diabetes (Primar y Dx); S/P bariatric surgery; Weight gain; BMI 31.0-31.9,adult; Class 1 obesity with serious comorbidity and body mass index (BMI) of 31.0 to 31.9 in adult, unspecified obesity type; Deficiency of multiple nutrient elements; Vitamin D deficiency Start: 07-07-2022 End: 07-07-2022 ambulatory [facility] Start: 07-07-2022 End: 07-07-2022 Office outpatient visit 15 minutes Shayna Andrade MD Work Phone: [facility] Comment on above: Pre-diabetes (Primar y Dx); S/P bariatric surgery; Weight gain; BMI 32.0-32.9,adult; Class 1 obesity with serious comorbidity and body mass index (BMI) of 32.0 to 32.9 in adult, unspecified obesity type Start: 2022 End: 06-24-2022 ambulatory FRANKY PEARSON DO Facility:[facility] Start: 2022 End: 2022 Patient encounter procedure FRANKY ANN-MARIEKO DO [facility] Start: 06-07-2022 End: 06-07-2022 ambulatory [facility] Start: 05-10-2022 End: 05-10-2022 [facility] Start: 04-26-2022 End: 04-27-2022 ambulatory FRANKY PEARSON DO Facility:[facility] Start: 04-26-2022 End: 04-26-2022 Patient encounter procedure FRANKY ANN-MARIEKO DO [facility] Start: 04-15-2022 End: 04-16-2022 ambulatory FRANKY PEARSON DO Facility:[facility] Start: 04-15-2022 End: 04-15-2022 Patient encounter procedure FRANKY ANN-MARIEKO DO [facility] Start: 03-03-2022 End: 03-03-2022 ambulatory ROBSON PUGH Facility:[facility] Start: 03-03-2022 End: 03-03-[address] ROBSNO PUGH MD [facility] Start: 02-02-2022 End: 02-03-2022 ambulatory FRANKY JACOBSENKO DO Facility:[facility] Start: 02-02-2022 End: 02-02-2022 Patient encounter procedure FRANKY ANN-MARIEKO DO [facility] Start: 12-02-2021 End: 12-03-2021 ambulatory FRANKY ANN-MARIEKO DO Facility:[facility] Start: 12-02-2021 End: 12-02-2021 Patient encounter procedure FRANKY JACOBSENKO DO [facility] Start: 07-04-2021 End: 07-04-2021 Patient encounter procedure FRANKY JACOBSENKO DO [facility] Start: 06-20-2021 End: 06-20-2021 Patient encounter procedure FRANKY JACOBSENKO DO [facility] Start: 05-22-2021 End: 05-22-2021 Emergency department patient visit RUY RIVERA MD [facility] Start: 02-25-2020 End: 02-25-2020 Subsequent hospital visit by physician Sekou Aparicio Work Phone: [facility] Start: 02-05-2020 End: 02-05-2020 Patient encounter procedure ADAM [facility] Start: 02-03-2020 Encounter for other preprocedural examination ADAM [facility] Start: 02-02-2020 End: 02-03-2020 Patient encounter procedure KATHERINE Bonds NP [facility] Start: 12-10-2019 End: 12-10-2019 Subsequent hospital visit by physician Sekou Aparicio Work Phone: [facility] Start: 10-20-2019 End: 10-20-2019 Subsequent hospital visit by physician Sekou Aparicio Work Phone: [facility] Start: 04-10-2019 End: 04-10-2019 Subsequent hospital visit by physician Rolan Jordan Work Phone: [facility] Procedures Date Procedure Procedure Detail [...] Start: 07-26-2023 CT of chest without contrast PSYCHIATRIC TECH-C Rolan Valdes PSYCHIATRIC TECH Work Phone: Start: 07-24-2023 Dual energy X-ray absorptiometry PSYCHIATRIC TECH-C Rolan Valdes PSYCHIATRIC TECH Work Phone: Start: 07-24-2023 Ultrasonography of breast PSYCHIATRIC TECH-C Rolan Valdes PSYCHIATRIC TECH Work Phone: Start: 07-24-2023 Bilateral mammography N P-C Rolan Valdes PSYCHIATRIC TECH Work Phone: Start: 06-01-2023 Plain X-ray of [...] (1 - 1-dose 60+ series) [facility] Start: 04-07-2030 DTaP/Tdap/Td Vaccines (2 - Td or Tdap) DTaP/Tdap/Td Vaccines (2 - Td or Tdap) [facility] Start: 06-08-2025 Lipid panel Lipid Panel [facility] Start: 03-05-2025 Patient encounter procedure Registered Clinical -Sleep Lab Work Phone: Start: 02-06-2025 Foot min 3 Views Foot min 3 Views [facility] Start: 02-06-2025 Knee 4 or More Views Knee 4 or More Views [facility] Start: 02-06-2025 XR Foot GE 3 Views [facility] Start: 02-06-2025 XR Knee GE 4 Views [facility] Start: 01-16-2025 Colonoscopy w/biopsy single/multiple COLONOSCOPY AND BIOPSY [facility] Start: 01-16-2025 Egd transoral biopsy single/multiple EGD BIOPSY SINGLE/MULTIPLE [facility] Start: 01-16-2025 Patient discharge [facility] Start: 02-09-2023 COVID-19 Vaccine ( season) COVID-19 Vaccine (2022-24 season) [facility] Start: 02-09-2023 Influenza vaccination Influenza Vaccine (#1) [facility] Start: 12-15-2022 End: 12-15-2022 Patient encounter procedure 12/15/2022 Office Visit Weight Management Shayna Andrade MD [address] [place] [address] [facility] Start: 10-19-2022 Zoster Vaccines (2 of 2) Zoster Vaccines (2 of 2) [facility] Start: 08-18-2022 End: 08-18-2022 Patient encounter procedure 08/18/2022 Office Visit Weight Management Shayna Andrade MD [address] [place] [address] [facility] Start: 02-09-2022 Influenza vaccination Influenza Vaccine (#1) [facility] Start: 2021 Zoster Vaccines (1 of 2) Zoster Vaccines (1 of 2) [facility] Start: 06-02-2021 COVID-19 Vaccine (4 - Booster for Moderna series) COVID-19 Vaccine (4 - Booster for Moderna series) [facility] Start: 02-10-2020 Influenza vaccination Flu vaccine (#1) [place] Start: 03-14-2019 A1C test (Diabetic or Prediabetic) A1C test (Diabetic or Prediabetic) [place] Start: 03-14-2019 HbA1c (Bld) [Mass fraction] A1C test (Diabetic or Prediabetic) [place] Start: 02-09-2019 Influenza vaccination Flu vaccine (#1) [place] Start: 2011 Screening for malignant neoplasm of breast Mammogram [facility] Start: 2001 Screening for malignant neoplasm of cervix [facility] Start: 1992 Cervical cancer screen Cervical cancer screen [place] Start: 1992 Screening for malignant neoplasm of cervix [facility] Start: 1990 DTaP/Tdap/Td vaccine (1 - Tdap) DTaP/Tdap/Td vaccine (1 - Tdap) [place] Start: 1990 Hepatitis A Vaccines (1 of 2 - Risk 2-dose series) Hepatitis A Vaccines (1 of 2 - Risk 2-dose series) [facility] Start: 1990 Hepatitis B vaccine (1 of 3 - Risk 3-dose series) Hepatitis B vaccine (1 of 3 - Risk 3-dose series) [place] Start: 1989 Diabetes mellitus screening Diabetes Screening [facility] Start: 1989 Diabetic microalbuminuria test Diabetic microalbuminuria test [place] Start: 1989 Hepatitis C screening Hepatitis C Screening [facility] Start: 1986 HIV screen HIV screen [place] Start: 1986 HIV screening HIV screen [place] Start: 1983 Depression Screening Depression Screening [facility] Start: 1981 [object Object] Diabetic foot exam [place] Start: 1981 Diabetic foot examination Diabetic foot exam [place] Start: 1981 Diabetic retinal exam Diabetic retinal exam [place], [place] Start: 1981 Lipid panel Lipid [place] Start: 1981 Lipid screen Lipid [place] Start: 1977 Pneumococcal 0-64 years Vaccine (1 of 1 - PPSV23) Pneumococcal 0-64 years Vaccine (1 of 1 - PPSV23) [place] Start: 1972 Hepatitis A Vaccines (1 of 2 - Risk 2-dose series) Hepatitis A Vaccines (1 of 2 - Risk 2-dose series) [facility] Start: 1972 MMR Vaccines (1 of 1 - Standard series) MMR Vaccines (1 of 1 - Standard series) [facility] Start: 1971 Hepatitis B Vaccines (1 of 3 - 3-dose series) Hepatitis B Vaccines (1 of 3 - 3-dose series) [facility] Start: 1971 HIV screening HIV Screening [facility] Start: 1971 Screening for malignant neoplasm of colon [facility] CT Chest WO contrast [facility] Patient referral [facility] Work Phone: [facility] Immunizations Immunization Date Immunization Notes Care Provider [facility] 03-27-2024 influenza, seasonal, injectable, preservative free Dr. Franky Pearson DO Work Phone: [facility] 04-16-2023 influenza, injectabl e, quadrivalent, preservative free Dr. Yessi Mcqueen Work Phone: [facility] 08-24-2022 zoster vaccine recombinant; Translations: [Shingrix] LINDA MARTINEZ MD [facility] 03-11-2022 influenza virus vaccine, unspecified formulation LINDA MARTINEZ MD [facility] Comment on above: Result Comment: at [facility] 04-07-2021 SARS-CoV-2 (COVID-19 ) mRNA-[address] ROBSON PUGH MD [facility] Comment on above: Result Comment: 2021: [id number] 07-02-2020 SARS-CoV-2 (COVID-19 ) mRNA-[address] ROBSON PUGH MD [facility] Comment on above: Result Comment: 2021: TPV18 06-07-2020 SARS-CoV-2 (COVID-19 ) mRNA-[address] ROBSON PUGH MD [facility] Comment on above: Result Comment: 2021: TPV18 04-07-2020 tetanus toxoid, redu camron diphtheria toxoid, and acellular pertussis vaccine, adsorbed; Translations: [Boostrix (Tdap)] RUY RIVERA MD [facility] 03-11-2020 influenza virus vaccine, unspecified formulation RUY RIVERA MD [facility] 03-10-2020 influenza virus vaccine, unspecified formulation DR ROBSON PUGH MD [facility] 03-30-2014 influenza virus vaccine, unspecified formulation DR ROBSON PUGH MD [facility] 05-03-2012 influenza virus vaccine, unspecified formulation DR ROBSON PUGH MD [facility] Payers Date Payer Category Payer Self-pay 2024 Unknown [id number] 2021 Unknown [employer] [id number] 2021-Present [address] [place] [phone] Commercial [id number] 2017 Unknown [employer] xxxxxxxxxxxxx 2017-Present [phone] [place] [phone] xxxxxxxxxxxxx [id number] .[id number] 2017 Unknown [employer] [id number] 2017-Present [phone] [place] [phone] [id number] [id number].3 .[id number] 2015 Unknown [id number] 1971 Unknown [id number] 2.16.840.1.485438.3.579.2.598 1971 Unknown [id number] 2.16.840.1.914477.3.579.2.598 1971 Unknown [id number] 2.16.840.1.867053.3.579.2.598 1971 Unknown [id number] 2.16.840.1.240763.3.579.2. 1971 Unknown [id number] 2.16.840.1.214531.3.579.2. 1971 Unknown [id number] 2.16.840.1.683629.3.579.2. 1971 Unknown [id number] 2.16.840.1.844045.3.579.2. 1971 Unknown [id number] 2.16.840.1.752655.3.579.2. 1971 Unknown [id number] 2.16.840.1.189064.3.579.2. 1971 Unknown [id number] 2.16.840.1.957386.3.579.2. 1971 Unknown [id number] 2.16.840.1.271219.3.579.2. 1971 Unknown [id number] 2.16.840.1.028946.3.579.2. 1971 Unknown [id number] 2.16.840.1.906591.3.579.2. 1971 Unknown [id number] 2.16840.1.513147.3.579.2.7 1959 Unknown [id number] Unknown [id number] 2.16.840.1.134590.3.579.2.598 Unknown [facility] [id number] Unknown [id number] 2.16.840.1.157255.3.579.2.462 Unknown [id number] 2.16840.1.630681.3.579.2.462 Unknown [id number] 2.16.840.1.956170.3.579.2.462 Unknown [id number] 2.16.840.1.222091.3.579.2.462 Unknown [id number] 2.16.840.1.870876.3.579.2.462 Unknown [id number] 2.16.840.1.581442.3.579.2.462 Unknown [id number] 2.16.840.1.119832.3.579.2.462 Unknown [id number] 2.16.840.1.775758.3.579.2.462 Unknown [id number] 2.16.840.1.119471.3.579.2.462 Unknown [id number] 2.16.840.1.567526.3.579.2.462 Unknown [id number] 2.16.840.1.473321.3.579.2.462 Unknown [id number] 2.16.840.1.497620.3.579.2.462 Unknown [id number] 2.16.840.1.021147.3.579.2.462 Unknown [id number] 2.16.840.1.407852.3.579.2.462 Unknown [id number] 2.16.840.1.800282.3.579.2.462 Unknown [id number] 2.16.840.1.287697.3.579.2.462 Unknown [id number] 2.16.840.1.511738.3.579.2.462 Unknown [id number] 2.16.840.1.133734.3.579.2.462 Unknown [id number] 2.16.840.1.875940.3.579.2.462 Unknown [id number] 2.16.840.1.323732.3.579.2.462 Unknown [id number] 2.16.840.1.482168.3.579.2.462 Unknown [id number] 2.16.840.1.336396.3.579.2.462 Unknown [id number] 2.16.840.1.060036.3.579.2.462 Unknown [id number] 2.16.840.1.542430.3.579.2.462 Unknown [id number] 2.16.840.1.558255.3.579.2.462 Unknown [id number] 2.16.840.1.208376.3.579.2.462 Unknown [id number] 2.16.840.1.907010.3.579.2.462 Unknown [id number] 2.16.840.1.449096.3.579.2.462 Unknown [id number] 2.16.840.1.866818.3.579.2.462 Unknown [id number] 2.16.840.1.537966.3.579.2.462 Unknown [id number] 2.16.840.1.888710.3.579.2.462 Unknown [id number] 2.16.840.1.149056.3.579.2.462 Social History Date Type Detail Facility Start: 12-10-2019 End: 03-05-2025 Tobacco smoking status NHIS Never smoker [place] Start: 12-10-2019 End: 07-07-2022 Alcohol intake Ex-drinker (finding) [facility] Start: 04-01-2018 Alcohol Comment less than once a mon [place] Start: 1971 Sex Assigned At Not on file [place] Start: 04-10-2019 End: 02-25-2020 Tobacco use and exposure Never used [place] Start: 04-10-2019 End: 07-07-2022 Alcohol intake Not Currently [facility] Start: 1970 Sex Assigned At Female A [facility] Start: 06-27-2022 End: 08-18-2022 Exposure to SARS-CoV-2 (event) Not sure [facility] Start: 07-07-2022 History of Social function [facility] Medical Equipment Procedure Code Equipment Code Equipment Origin al Text Equipment Identifier Dates See Instructions , dx E16.2; check BGT due to hypoglycemic symptoms, up to once per day; dispense 100 glucose test strips, # 100 EA, 0 Refill(s), Pharmacy: [facility], 164, , 04/04/22 8:05:00 EDT, Height, 86.1 Start: 04-04-2022 See Instructions , dx E16.2; check BGT due to hypoglycemic symptoms, up to once per day; dispense 100 lancets., # 100 EA, 0 Refill(s), Pharmacy: [facility], 164, cm, 04/04/22 8:05:00 EDT, Height, 86.1 Start: 04-04-2022 See Instructions , dx E16.2; check BGT due to hypoglycemic symptoms, up to once per day; dispense 100 glucose test strips, # 100 EA, 0 Refill(s), Pharmacy: [facility], 164, , 04/04/22 8:05:00 EDT, Height, 86.1 Start: 04-04-2022 See Instructions , dx E16.2; check BGT due to hypoglycemic symptoms, up to once per day; dispense 100 lancets., # 100 EA, 0 Refill(s), Pharmacy: [facility], 164, , 04/04/22 8:05:00 EDT, Height, 86.1 Start: 04-04-2022 See Instructions , dx E16.2; check BGT due to hypoglycemic symptoms, up to once per day; dispense 100 glucose test strips, # 100 EA, 0 Refill(s), Pharmacy: [facility], 164, , 04/04/22 8:05:00 EDT, Height, 86.1 Start: 04-04-2022 See Instructions , dx E16.2; check BGT due to hypoglycemic symptoms, up to once per day; dispense 100 lancets., # 100 EA, 0 Refill(s), Pharmacy: [facility], 164, cm, 04/04/22 8:05:00 EDT, Height, 86.1 Start: 04-04-2022 See Instructions , dx E16.2; check BGT due to hypoglycemic symptoms, up to once per day; dispense 100 glucose test strips, # 100 EA, 0 Refill(s), Pharmacy: [facility], 164, cm, 04/04/22 8:05:00 EDT, Height, 86.1 Start: 04-04-2022 See Instructions , dx E16.2; check BGT due to hypoglycemic symptoms, up to once per day; dispense 100 lancets., # 100 EA, 0 Refill(s), Pharmacy: [facility], 164, cm, 04/04/22 8:05:00 EDT, Height, 86.1 Start: 04-04-2022 See Instructions , dx E16.2; check BGT due to hypoglycemic symptoms, up to once per day; dispense 100 glucose test strips, # 100 EA, 0 Refill(s), Pharmacy: [facility], 164, cm, 04/04/22 8:05:00 EDT, Height, 86.1 Start: 04-04-2022 See Instructions , dx E16.2; check BGT due to hypoglycemic symptoms, up to once per day; dispense 100 lancets., # 100 EA, 0 Refill(s), Pharmacy: [facility], 164, cm, 04/04/22 8:05:00 EDT, Height, 86.1 Start: 04-04-2022 See Instructions , dx E16.2; check BGT due to hypoglycemic symptoms, up to once per day; dispense 100 glucose test strips, # 100 EA, 0 Refill(s), Pharmacy: [facility], 164, cm, 04/04/22 8:05:00 EDT, Height, 86.1 Start: 04-04-2022 See Instructions , dx E16.2; check BGT due to hypoglycemic symptoms, up to once per day; dispense 100 lancets., # 100 EA, 0 Refill(s), Pharmacy: [facility], 164, cm, 04/04/22 8:05:00 EDT, Height, 86.1 Start: 04-04-2022 See Instructions , dx E16.2; check BGT due to hypoglycemic symptoms, up to once per day; dispense 100 glucose test strips, # 100 EA, 0 Refill(s), Pharmacy: [facility], 164, cm, 04/04/22 8:05:00 EDT, Height, 86.1 Start: 04-04-2022 See Instructions , dx E16.2; check BGT due to hypoglycemic symptoms, up to once per day; dispense 100 lancets., # 100 EA, 0 Refill(s), Pharmacy: [facility], 164, cm, 04/04/22 8:05:00 EDT, Height, 86.1 Start: 04-04-2022 Goals Date Patient Goal Desired Activity /State Functional Status Date Assessment Result Facility 08-26-2022 Functional Status Independent [facility] 03-03-2022 Functional Status Maintained, Less than 8 hours [facility] Mental Status Date Assessment Result Facility 01-16-2025 Cognitive function Voice/Name [facility] Work Phone: Clinical Notes 05-22-2021 to 03-05-2025 Note Date & Type Note Facility 03-05-2025 Progress note [facility] 01-16-2025 Consult note [facility] 01-16-2025 Procedure note [facility] 01-16-2025 Procedure note [facility] 01-16-2025 Procedure note [facility] 01-16-2025 Procedure note [facility] 01-16-2025 History and physi bethanie note [facility] 01-16-2025 Note [facility] Medical Records Department [address] [place] [address] History Physical Exam 01/16/25 0638 MR#: [id number] Acct: [id number] Name: AMANDA GRUBBS Rep #: [id number] : 1970 54 From: Rock Pineda DO PCP: Dr. Franky Pearson, DO Status:[facility] Location: [place] [address] HPI - General General Date of Admission: [...] shakes very little protein and fiber intake [facility] Medical History Kidney stones Wears [...] #90 caps 11/26/24 Rx release peg 3350-sod sulf,dyqun-kjs-axh See Rx Instructions PO .COMPLEX #2 11/26/24 [...] dysphagia, early sat (more content not included)... [facility] 01-16-2025 Consult note [facility] 11-26-2024 Evaluation note Diagnosis Onset Date Resolution [...] 5:17am Rectal pain acute January 16 5:17am [facility] Work Phone: 1(637) 991-213806-18-2025 Evaluation note* Diagnosis Onset Date Resolution Status [...] tract infection) acute February 02, 2025 1:33pm [facility] Work Phone: 1(225) 841-974006-18-2025 Evaluation note* Diagnosis Onset Date Resolution Status [...] Rectal bleeding acute March 05, 2025 8:27am [facility] Work Phone: 1(428) 887-989504-17-2025 Evaluation note* Diagnosis Onset Date Resolution Status [...] thoracic region acute J darnell 2024 11:56am [facility] Work Phone: 1(842) 585-316204-17-2025 Evaluation note* Diagnosis Onset Date Resolution Status [...] somatic dysfunction of thoracic region acute J [facility] 2024 9:09am [facility] Work Phone: 1(589) 595-904404-17-2025 Evaluation note* Diagnosis Onset Date Resolution Status Admit Date Segmental and somatic dysfunction of cervical region [facility] 10:18am Segmental and somatic dysfunction of lumbar region acute Apr 2024 10:18am Segmental and somatic dysfunction of pelvic region acute Apr 2024 10:18am Segmental and somatic dysfunction of thoracic region acute [facility] 2024 10:18am Bloating acute November 26 [...] 5:17am Rectal pain acute January 16 5:17am [facility] Work Phone: 1(562) 340-223303-05-2025 Evaluation note* Diagnosis Onset Date Resolution Status [...] H/O gastric bypass chronic November 092024 9:28am [facility] Work Phone: 1(118) 752-490308-08-2023 Telephone encounter Note* Telephone Encounter - Liya Walker - 01/16/2023 4:54 PM EDT Name of Caller: Amanda Contact Reason for Appointment: Pt needs to cancel upcoming appt and the pt sill call back to resx. Please advise Office Name: [facility] Medication Refills need, if any: NA Medication Name: NA [id number] Miscellaneous Notes* Telephone Encounter - Liya Louisro - 01/16/2023 4:54 PM EDT Name of Caller: Amanda Contact Reason for Appointment: Pt needs to cancel upcoming appt and the pt sill call back to resx. Please advise Office Name: [facility] Medication Refills need, if any: NA Medication Name: NA documented in this encounterSMer[facility] [id number] Hospital Discharge instructions Patient Education 08/26/2022 17:49:43 [...] Swelling, pain or redness in one leg 0619-5758 [employer]. [address] [place] [address]. All rights reserved. This information is not intended as a substitute for professional medical care. Always follow yourhealthcare professional's instructions. Follow Up Care 08/26/2022 16:01:09 With:FRANKY PEARSON Address: [address] [place] [phone]- [phone] Business (1) When:2-4 days Comments:Schedule appointment as soon as possibleReturn to ED if symptoms worsenClear liquid diet till 12noon and if symptoms do not recur increase as tolerated.Follow up for outpatient stress testing.Return for symptoms as described [facility] 03-18-2023 Note Discharge Instructions Thank you for allowing [facility] to assist you with your healthcare needs. [...] testing. Return for symptoms as described Where: [address] [place] [address] [phone] Business (1) Allergies NKA Medications Please ask [...] Swelling, pain or redness in one leg 5588-6547 [employer]. [address] [place] [address]. All rights reserved. This information is not intended as a substitute for professional medical care. Always follow yourhealthcare professional's instructions. Additional Information VACCINATE! IT SAVES LIVES! Members of the community who have not yet received the COVID-19 vaccine and would like to receive it can visit one of [facility] vaccine clinics. There are many vaccine clinic locations within the [facility]. For locations and available times, please visit www.[email or web address].[email or web address]/. It is important to note that some COVID mobile vaccine clinics are held outdoors and may be canceled in rainy or stormy conditions. To learn more about pediatric vaccinations (ages 5-11), we invite you to visit the [facility] webpage. https://www.[facility].org/pages/1873-Ylebh-Knsaaujqaci-Jextwupzte-Ostlr-Jte stions.htmlTo learn more about the COVID-19 vaccine, we invite you to visit the CDC website for a list of frequently asked questions. https://www.cdc.gov/coronavirus/2019-ncov/vaccines/faq.html [facility] [employer] Patient Portal Access Instructions: Stay connected with your healthcare team and access your personal medical information anytime with the [facility] [employer] Patient Portal. If you would like a full copy of your medical records please contact the [facility] Medical Records Department Sunday through Sunday between 8a.m. and 4:30p.m. Please follow the directions below to access the portal: 1.Access the email account you provided upon registration to the [facility].2.Look for an invitation email from [facility].3.Open the email and access the invitation link: Accept Invitation to [facility]4.Fill in the required mckenzie to create your [...] you will allow to register on the [facility] [employer] Patient Portal for access to your information. You can also access the [employer] Patient Portal on the [employer]. Simply click on Health Records under [employer] and then click on the [employer] logo. [...] Call your local pharmacy or go to http://bit.SiteWit/6Q1Em2d to find one close to you.3.Make use of household items: Use cat litter or old coffee grounds to dispose medications if other options arenot available. Mix your drugs with these household products, seal them in an airtight container andthrow it into the garbage. Call [facility]: [phone] to be sure your drugs can be [...] that I should contact my d octor. Patient/Shipping Point Inspector Signature: Date/Time: Relationship to Patient: Witness Name/Signature: Date/Time: [facility]03-18-2023 Note ORIGINAL EXAMINATION: CT OF THE ABDOMEN [...] 08/26/2022 6:34:22 PM Ordering Provider: LINDA MARTINEZ [facility]03-18-2023 Note ORIGINAL EXAMINATION: CT OF THE ABDOMEN [...] Sign Date: 08/26/2022 6:34:22 PM Ordering Provider: [facility]03-18-2023 Note ORIGINAL EXAMINATION: ONE XRAY VIEW [...] Sign Date: 08/26/2022 5:14:04 PM Ordering Provider: [place] [address]-18-2023 Note ORIGINAL EXAMINATION: ONE XRAY VIEW OF [...] Sumanth Swanson MD Electronically signed By Sumanth Swansno MD Dictated Date: 08/26/2022 5:13:47 PM Prelim Date: 08/26/2022 5:14:04 PM Sign Date: 08/26/2022 5:14:04 PM Ordering Provider: [facility]03-10-2023 [facility] WEIGHT [facility] MANAGEMENT PROGRESS [...] was performed.Clinical documentation is updated and completed. [facility] [id number] History of Present illness Narrative* Mary Mishra [...] Exercising: yes If yes: Type: gym with aed trainer Times per week: 3 Min per [...] is updated and completed. documented in this [facility]01-27-2023 [facility] POST-OP WEIGHT LOSS MANAGEMENT PROGRESS [...] preDM 4. Weight maintenance after bariatric surgery [facility] 07-07-2022 History of Present illness Narrative* [...] after bariatric surgery discussed documented in this [facility]01-13-2023 Note ORIGINAL HISTORY: Lung nodule COMPARISON: 02 [...] Sign Date: 2022 12:43:51 PM Ordering Provider: [facility]01-13-2023 Note ORIGINAL HISTORY: Lung nodule [...] Sign Date: 2022 12:43:51 PM Ordering Provider: [facility]12-28-2022 Note [facility] POST-OP WEIGHT [...] was performed.Clinical documentation is updated and completed. [facility] [id number] Evaluation + Plan noteExtracted from: Title:Clinical Document Author:ROBSON PUGH Date:03/03/22 MAG[facility]OL[facility] ADMISSION HISTORY AN D PHYSICIAL CHIEF COMPLAINT: HISTORY OF PRESENT ILLNESS: REVIEW OF SYSTEMS: ACTIVE PROBLEMS: (24) Abnormal mammogram (465000057) Abnormal screening computed tomography (CT) of lung (4258349250) Anxiety (91361020) Breast cancer screening (909453891) Cervical cancer screening (7124223382) Colon cancer screening (791490871) Encounter for well adult exam with abnormal findings (049501484) GERD (gastroesophageal reflux disease) (746346022) Hot flashes due to menopause (892863821) Immunization due (649237900) Insomnia (070691413) Major depression in remission (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) Nephrolithiasis (270911378) Obesity (2096651227) Post-menopausal (402334430) Pre-diabetes (7602838307) Preoperative evaluation of a medical condition to rule out surgical contraindications (TAR required) (304055664) Restless legs (20271517) Right arm pain (875219621) S/P gastric bypass (6249875527) Screening for cardiovascular condition (558404464) Somatic dysfunction of upper extremity (7883683487) Tobacco non-user (371518329) Viral syndrome (36913703) MEDICATIONS: Active Inpt Meds: None Active PRN Meds: None One Time Meds: None Active IV Meds: Lactated Ringers Infusion 1,000 mL (LR 1,000 mL) Start: 03/03/22 7:52:00 EDT, Rate: 50 mL/hr, 03/03/22 7:52:00 EDT ALLERGIES: (1) NKA FAMILY HISTORY: SOCIAL HISTORY: PHYSICAL EXAM: VITALS: QvbmefDqvqVTGfzorONJcG9ZKK8QqhfMo(kg) 03/03 07:5536.7126/24588715XV86/23 79.5 24 Hr Tmax: 36.7 at 03/03 [...] Date:04/04/2022 08:00:00 AM Scheduled Provider:FRANKY PEARSON DO Location:[facility] Appointment Type: OV Appointment Date:05/30/2022 09:00:00 AM Scheduled Provider:FRANKY PEARSON DO Location:[facility] Appointment Type: OV Future Scheduled [...] 02/22/22 * Complete Metabolic Panel 08/22/21 * [facility] Lab Send out (Blood Specimens) 11/22/21 Radiology* US Breast Right Limited 08/08/22 * CT Thorax w/o Contrast 06/07/22 * MA Mammogram Diagnostic Bilateral w/o Juma 01/01/22 [facility] 09-23-2022 Hospital Discharge instructions Patient Education 03/03/2022 [...] before eating solid foods. General instructions Take bxdq-buh-vtyxoas and prescription medicines only as told by [...] 09/17/2016 Document Revised: 08/26/2018 Document Reviewed: 09/17/2016 [employer] Patient Education 2020 [employer]. 03/03/2022 09:18:09 Colonoscopy, Adult, Care After Colonoscopy, [...] a slower pace than normal. ?Eat soft, obtu-aw-hwgivn foods. Take hfss-xoa-duwdhnc or prescription medicines only as told by [...] 01/09/2005 Document Revised: 03/20/2018 Document Reviewed: 08/08/2016 [employer] Patient Education [employer]. Follow Up Care 01/09/2022 13:05:28 With:ROBSON PUGH MD Address: [address] [facility] [address] [place] [phone] When: Unknown Comments:Follow-up as needed [facility] 09-23-2022 Summary of episode note Discharge Instructions Thank you for allowing [facility] to assist you with your healthcare needs. The following is importantdischarge information regarding your hospital visit. Your Care Team FRANKY PEARSON DO What to do next Scheduled Follow-Up Appointments Appointment Type When With Where Contact InformationPC OV 04/04/2022 08:00 AM FRANKY APPIAH DO [address] [phone] OV 05/30/2022 09:00 AM FRANKY ODEN DO [address] [address] Follow Up Appointments Follow Up with ROBSON PUGH MD When Why: Follow-up as needed Where: [address] [facility] [address] [place] [phone] Allergies NKA Medications Please ask your primary [...] before eating solid foods. General instructions Take vsff-iqf-qhgjrnh and prescription medicines only as told by [...] 09/17/2016 Document Revised: 08/26/2018 Document Reviewed: 09/17/2016 [employer] Patient Education 2020 [employer]. Colonoscopy, Adult, Care After This sheet gives [...] slower pace than normal. ? Eat soft, yzim-ng-klesdg foods. Take yyda-ycr-pvokdql or prescription medicines only as told by [...] 01/09/2005 Document Revised: 03/20/2018 Document Reviewed: 08/08/2016 [employer] Patient Education 2020 [employer] Additional Information VACCINATE! IT SAVES LIVES! Members of the community who have not yet received the COVID-19 vaccine and would like to receive it can visit one of [facility] vaccine clinics. There are many vaccine clinic locations within the [facility]. For locations and available times, please visit [email or web address] It is important to note that some COVID mobile vaccine clinics are held outdoors and may be canceled in rainy or stormy conditions. To learn more about pediatric vaccinations (ages 5-11), we invite you to visit the [facility] webpage. https://www.Local[facility].org/pages/5182-Gdmny-Fxoxlbhfvsz-Cqitzfoayr-Fyray-Uxx stions.htmlTo learn more about the COVID-19 vaccine, we invite you to visit the [employer] website for a list of frequently asked questions. https://nurys.org/assets/Eibqwyay-vyq-Dmfgcrdr/pbsss-Lbaekde-Ocjproypjl _Asked-Questions.pdf [employer] Patient Portal Access Instructions: Stay connected with your healthcare team and access your personal medical information anytime with the [employer] Patient Portal.If you would like a full copy of your medical records, please contact the [facility] Medical Records Department, Sunday through Sunday between 8a.m. and 4:30p.m. Please follow the directions below to access the portal: 1.Access the email account you provided upon registration to the hospital.2.Look for an invitation email from [facility].3.Open the email and access the invitation link: Accept Invitation to [facility]4.Fill in the required mckenzie to create your account. Sign into [email or web address] with your username and password that you [...] you will allow to register on the [employer] Patient Portal for access to your information. You can also access the [employer] Patient Portal on the [employer] ramírez. Simply click on Health Records under ViCl[employer] and then click on the [employer] logo. HOW TO SAFELY DISPOSE OF PRESCRIPTION [...] Call your local pharmacy or go to http://Mimvi/1I8Dc1w to find one close to you.3.Make use of household items: Use cat litter or old coffee grounds to dispose medications if other options arenot available. Mix your drugs with these household products, seal them in an airtight container andthrow it into the garbage. Call [facility]: [phone] to be sure your drugs can be [...] that I should contact my d octor. Patient/Shipping Point Inspector Signature: Date/Time: Relationship to Patient: Witness Name/Signature: Date/Time: [facility]09-23-2022 Anesthesiology Consult note Patient: AMANDA GRUBBS Age: 51 years Sex: Female : 1970 Associated Diagnoses: None Author: SANTIAGO GUTIERREZ APRN-BASEBALL INSPECTOR Assessment Postanesthesia assessment Vitals: Vital signs from [...] by SANTIAGO GUTIERREZ on 03/03/2022 09:12 AM [facility]09-23-2022 Anesthesiology Consult note Patient: AMANDA GRUBBS Age: [...] Problem list: Medical Anxiety / SNOMED CT 55319106 / Confirmed Cervical cancer screening / SNOMED CT 5632389161 / Confirmed Abnormal screening computed tomography (CT) of lung / SNOMED CT 5025371253 / Confirmed GERD (gastroesophageal reflux disease) / SNOMED CT 718015959 / Confirmed S/P gastric bypass / SNOMED CT 4743864181 / Confirmed Immunization due / SNOMED CT 754007393 / Confirmed Insomnia / SNOMED CT 227501932 / Confirmed Nephrolithiasis / SNOMED CT 626836946 / Confirmed Major depression in remission / SNOMED CT 01524864 / Confirmed Abnormal mammogram / SNOMED CT 546483609 / Confirmed Hot flashes due to menopause / SNOMED CT 988760747 / Confirmed Obesity / SNOMED CT 4270795024 / Confirmed Right arm pain / SNOMED CT 705890240 / Confirmed Preoperative evaluation of a medical condition to rule out surgical contraindications (TAR required) / SNOMED CT 630722874 / Confirmed Screening for cardiovascular condition / SNOMED CT 995969909 / Confirmed Breast cancer screening / SNOMED CT 163780527 / Confirmed Colon cancer screening / SNOMED CT 047136491 / Confirmed Encounter for well adult exam with abnormal findings / SNOMED CT 245120704 / Confirmed Post-menopausal / SNOMED CT 740734219 / Confirmed Pre-diabetes / SNOMED CT 7004788568 / Confirmed Restless legs / SNOMED CT 19397840 / Confirmed Somatic dysfunction of upper extremity / SNOMED CT 5738255120 / Confirmed Tobacco non-user / SNOMED CT 737950100 / Confirmed Viral syndrome / SNOMED CT 42455868 / Confirmed, Active Problems (24) Abnormal mammogram [...] with small intestine reconstruction to limit absorption (91333). Endometrial ablation (861123084). Diagnostic laparoscopy of female pelvis (714569652). Hysterectomy (511330377). section (83582657). Comments: 03/03/2022 7:52 Rhonda Saxena RN x2 Cholecystectomy (74480143). Colonoscopy (731942792). Comments: 03/03/2022 7:53 Rhonda Saxena RN x2 Cystourethroscopy, with ureteroscopy and/or pyeloscopy; with removal or manipulation of calculus (ureteral catheterization is included) (52375). Entire finger (510614648). Comments: 03/03/2022 7:53 EDT - Rhonda Swenson RN right juan josey Social History Social & Psychosocial Habits Alcohol 06/27/2019 Use: Current Frequency: 1-2 times per month Substance Abuse 06/27/2019 Use: Never Tobacco 06/27/2019 Tobacco Use: Never (less than 100 in l Home/Environment 03/03/2022 Domestic Concerns None Living situation: Home/Independent Primary Machine Burrer: Self Current Home Treatments None Special Services [...] Vital Signs(last 24 hrs) Last Charted Temp Dsaflhrg74.7 DegC (MAR 03 07:55) Heart Rate Dllnzrtkz24 bpm (MAR 03 09:00) Resp Rate 19 br/min (MAR 03 09:00) WIH219 mmHg (MAR 03 08:55) DBP87 mmHg (MAR 03 08:55) BMI30.07 (MAR 03 07:55) Measurements from flowsheet : Measurements 03/03/2022 7:55 EDT Height 162.6 cm Admission Weight 79.5 kg Weight Method Stated [place] Body Weight 54.74 kg BSA Admission 1.85 [...] Surgeon SN - CAt - Role Performed Driver Material Handler 1 SN - CAt - Role Performed BASEBALL INSPECTOR SN - CAt - Role Performed Senior Sales Operations Analyst 03/03/2022 8:53 EDT [place] History and Physical 03/03/2022 8:09 EDT Continuous [...] Person #1 We May Share ENEIDA Grubbs [phone] Designated Person #1 Relationship Spouse Designated Person #2 We May Share ENEIDA Grubbs [phone] Designated Person #2 Relationship Daughter Privacy Restrictions Requested None Height 162.6 cm Admission Weight 79.5 kg Weight Method Stated [place] Body Weight 54.74 kg BSA Admission 1.85 [...] Method Explanation, Printed materials Preferred Written Language Indian Preferred Spoken Language Indian Information Given by Patient Patient's Current Physicians [...] Note-Nursing Procedure/Therapy Intake . Assessment and Plan [place] [employer] Anesthesiologists (ASA) physical status classification: Class III. Anesthetic Preoperative Plan Anesthetic technique: MAC. Informed consent: signed by patient. Digitally Signed by SANTIAGO GUTIERREZ on 03/03/2022 09:08 AM [facility]09-23-2022 Note MAGNOLIA ADMISSION HISTORY AND PHYSICIAL CHIEF COMPLAINT: HISTORY OF PRESENT ILLNESS: REVIEW OF SYSTEMS: ACTIVE PROBLEMS: (24) Abnormal mammogram (883788522) Abnormal screening computed tomography (CT) of lung (2264260358) Anxiety (82392931) Breast cancer screening (611705254) Cervical cancer screening (2605077016) Colon cancer screening (086238824) Encounter for well adult exam with abnormal findings (438946891) GERD (gastroesophageal reflux disease) (153280604) Hot flashes due to menopause (368749958) Immunization due (792330550) Insomnia (953296566) Major depression in remission (97647314) Nephrolithiasis (989142391) Obesity (6528774102) Post-menopausal (733585732) Pre-diabetes (6118900324) Preoperative evaluation of a medical condition to rule out surgical contraindications (TAR required) (841585539) Restless legs (83247665) Right arm pain (575054851) S/P gastric bypass (4519507156) Screening for cardiovascular condition (215732216) Somatic dysfunction of upper extremity (2515888417) Tobacco non-user (334673345) Viral syndrome (54842787) MEDICATIONS: Active Inpt Meds: None Active PRN Meds: None One Time Meds: None Active IV Meds: Lactated Ringers Infusion 1,000 mL (LR 1,000 mL) Start: 03/03/22 7:52:00 EDT, Rate: 50 mL/hr, 03/03/22 7:52:00 EDT ALLERGIES: (1) NKA FAMILY HISTORY: SOCIAL HISTORY: PHYSICAL EXAM: VITALS: EsfqozMtagSOZsefmRNBvP2OFF9YuxvBx(kg) 03/03 07:5536.7126/83102355YT76/23 79.5 24 Hr Tmax: 36.7 at 03/03 [...] ROBSON PUGH MD on 03/03/2022 08:58 AM [facility]03-14-2022 Evaluation + Plan note Future Scheduled Tests [...] 02/22/22 * Complete Metabolic Panel 08/22/21 * [facility] Lab Send out (Blood Specimens) 11/22/21 Radiology* MA Mammogram Diagnostic Bilateral w/o Juma 01/01/22 * US Breast Right Complete 01/01/22 [facility] 03-14-2022 Evaluation + Plan note Future Appointments [...] 02/22/22 * Complete Metabolic Panel 08/22/21 * [facility] Lab Send out (Blood Specimens) 11/22/21 Radiology* CT Thorax w/o Contrast 06/07/22 * MA Mammogram Diagnostic Bilateral w/o Juma 01/01/22 [facility] 12-12-2021 Hospital Discharge instructions Patient Education 05/22/2021 [...] If needed, more treatment may be started. 7705-8378 [employer]. [address] [place] [address]. All rights reserved. This information is not [...] neck Chest pain not caused by coughing 5425-8664 [employer]. [address] [place] [address]. All rights reserved. This information is not [...] foods again, start with small amounts of aeoz-gs-mqxjxg, low- fat foods. These include apple sauce, [...] increase stomach acid. Don't use aspirin or awip-djn-jmsefpw pain and fever medicines, if possible. This includes nonsteroidal anti-inflammatory drugs (NSAIDs). Lose excess weight. Finish eating at least 2 hours before you go to bed or lie down. Raise the head of your bed. 2935-[address]47 [employer]. [address] [place] [address]. All rights reserved. This information is not intended as a substitute for professional medical care. Always follow yourhealthcare professional's instructions. Follow Up Care 05/22/2021 04:01:53 With:FRANKY PEARSON DO Address: [phone] When:2-4 days [facility] Consult note Author [facility] Note Date/Time January 16, 2025 6:3 6am [facility] Medical Records Department [address] [place] [address] Pre-Anesthesia Evaluation 01/16/25 0632 MR#: [id number] Acct: [id number] Name: AMANDA GRUBBS Rep #:[id number] : 1970 54 From: Basilio Skinner MD PCP: Dr. Franky Pearson, DO Status:REG SDC Y Race: C Location: [place] [address] ASA Classification* ASA Classification ASA Classification: 2 [...] COLONOSCOPY, EGD Anesthesia History Anesthesia History - farm reporter: Anesthesia History - farm reporter Hx Hospitalization No 01/13/25 13:38 Any Problems [...] take am of surgery PONV PONV - farm reporter: PONV - farm reporter Female No 01/13/25 13:38 HX of Motion [...] 01/16/25 05:54 Respiratory Assessment Respiratory Assessment - farm reporter: Respiratory Tract Infection Hx - farm reporter Hx Respiratory Tract Infection No 01/13/25 13:38 STOP Sleep Apnea STOP Sleep Apnea - farm reporter: STOP Sleep Apnea - farm reporter Hx Hypertension No 01/13/25 13:38 Hx Sleep [...] Tobacco Use History Tobacco Use History - farm reporter: Tobacco Use History - farm reporter Tobacco Use Smoking Status Never smoker 01/13/25 13:38 Hx Tobacco Use No 01/13/25 13:38 Years Smoking Packs Smoked per Day Smoking Cessation Date was within the last 15 years Hx Smoking Cessation Date Hx Smoking Cessation Counseling Hematologic Medial History Hematologic Hx - farm reporter: Hematologic Medical Hx - tank riveter Hx of Blood Transfusion No 01/13/25 13:38 [...] confused, unrespo /Reproduction History /Reproductive History - farm reporter: /Reproductive Hx- farm reporter Hx Now Gestational Age (in weeks): EDC: [...] s 11/26/24 01/15/25 Rx release peg 3350-sod sulf,dgrce-abi-yvo See Rx Instructions PO .COMPLEX #2 11/26/24 [...] MD Cosigner Signature: Date CC: ~ Signed [facility] Work Phone: Consult note Author Frederic Nicole [facility] Note Date/Time January 16, 2025 7:2 0am [facility] Medical Records Department [address] [place] [address] Anesthesia Postop Eval I 01/16/25 0719 MR#: [id number] Acct: [id number] Name: AMANDA GRUBBS Rep #:[id number] : 1970 54 From: Frederic Nicole PCP: Dr. Franky Pearson, DO Status:REG SDC Y Race: C Location: [place] [address] Anesthesia: Postop Eval I Current Vital Signs [...] Frederic Barney Signature: Date CC: ~ Signed [facility] Work Phone: Evaluation + Plan note Future Appointments Appointment Date:05/31/2021 08:30:00 AM Scheduled Provider:FRANKY PEARSON DO Location[facility] Appointment Type:PC OV Follow Up Appointment Date:06/20/2021 08:30:00 AM Scheduled Provider: Location:[facility] Appointment Type:US Breast Right Complete Future Scheduled Tests Radiology* US Breast Right Complete 06/20/21 [facility] Evaluation + Plan note Future Appointments Appointment Date:08/31/2021 08:30:00 AM Scheduled Provider:FRANKY PEARSON DO Location:[facility] Appointment Type:PC OV Follow Up Future Scheduled Tests Radiology* CT Thorax w/o Contrast 06/28/21 [facility] Evaluation + Plan note Future Appointments Appointment Date:08/31/2021 08:30:00 AM Scheduled Provider:FRANKY PEARSON DO Location:[facility] Appointment Type:PC OV Follow Up Future Scheduled Tests Radiology* MA Mammogram Diagnostic Bilateral w/o Juma 01/01/22 * US Breast Right Complete 01/01/22 [facility] Evaluation + Plan note Future Appointments Appointment Date:05/30/2022 09:00:00 AM Scheduled Provider:FRANKY PEARSON DO Location:[facility] Appointment Type:PC OV Future Scheduled Tests [...] 08/22/21 * Complete Metabolic Panel 08/22/21 * [facility] Send out (Blood Specimens) 11/22/21 Radiology* US Breast Right Limited 08/08/22 * CT Thorax w/o Contrast 06/07/22 * MA Mammogram Diagnostic Bilateral w/o Juma 01/01/22 [facility] Evaluation + Plan note Future Appointments Appointment Date:05/30/2022 09:00:00 AM Scheduled Provider:FRANKY PEARSON DO Location:[facility] Appointment Type:PC OV Diagnostic Tests Pending * Zinc Level 04/26/22 * Vitamin B1 (Thiamine), Whole Blood 04/26/22 Future Scheduled Tests Laboratory* Ferritin 11/22/21 * Folate Level 08/22/21 * Vitamin B12 Level 11/22/21 * Zinc Level 11/22/21 * [facility] Send out (Blood Specimens) 11/22/21 Radiology* US Breast Right Limited 08/08/22 * CT Thorax w/o Contrast 06/07/22 * MA Mammogram Diagnostic Bilateral w/o Juma 01/01/22 [facility] Evaluation + Plan note Future Appointments Appointment Date:08/24/2022 08:00:00 AM Scheduled Provider:FRANKY PEARSON DO Location:[facility] Appointment Type:PC Wellness Annual Future Scheduled Tests Laboratory* Ferritin 11/22/21 * Folate Level 08/22/21 * Vitamin B12 Level 11/22/21 * Zinc Level 11/22/21 * [facility] Send out (Blood Specimens) 11/22/21 Radiology* US Breast Right Limited 08/08/22 * CT Thorax w/o Contrast 06/23/23 * MA Mammogram Diagnostic Bilateral w/o Juma 01/01/22 [facility] Evaluation + Plan note Future Appointments Appointment Date:08/24/2022 08:00:00 AM Scheduled Provider:FRANKY PEARSON DO Location:[facility] Appointment Type: Wellness Annual Future Scheduled Tests Laboratory* Ferritin 11/22/21 * Vitamin B12 Level 11/22/21 * Zinc Level 11/22/21 * [facility] Send out (Blood Specimens) 11/22/21 Radiology* CT Thorax w/o Contrast 06/23/23 * MA Mammogram Diagnostic Bilateral w/o Juma 01/01/22 [facility] Evaluation + Plan note Future Appointments Appointment Date:11/29/2022 08:00:00 AM Scheduled Provider:FRANKY PEARSON DO Location:[facility] Appointment Type: OV Future Scheduled Tests [...] 08/24/22 * Complete Metabolic Panel 08/24/22 * [facility] Send out (Blood Specimens) 11/22/21 Radiology* US Breast Right Limited 02/09/23 * BD Bone Density DEXA Axial Skeleton 12/09/22 * CT Thorax w/o Contrast 06/23/23 * MA Mammogram Diagnostic Bilateral w/o Juma 01/01/22 * MA Mammogram Diagnostic Bilateral w/o Juma 02/09/23 [facility] Evaluation + Plan note Future Appointments Appointment Date:09/13/2022 08:00:00 AM Scheduled Provider: Location:[facility] Appointment Type:CV Procedure - AOH Echo Appointment Date:09/19/2022 07:45:00 AM Scheduled Provider: Location:[facility] Appointment Type:HL Plain Stress Test Appointment Date:11/29/2022 08:00:00 AM Scheduled Provider:FRANKY PEARSON DO Location:[facility] Appointment Type:PC OV Diagnostic Tests Pending [...] MA Mammogram Diagnostic Bilateral w/o Juma 02/09/23 [facility] Evaluation + Plan note Future Appointments Appointment Date:09/19/2022 07:45:00 AM Scheduled Provider: Location:[facility] Appointment Type:HL Plain Stress Test Appointment Date:11/29/2022 08:00:00 AM Scheduled Provider:FRANKY PEARSON DO Location:[facility] Appointment Type:PC OV Future Scheduled Tests Laboratory* Ferritin 11/22/21 * Vitamin B12 Level 11/22/21 * Zinc Level 11/22/21 * [facility] Lab Send out (Blood Specimens) 11/22/21 Radiology* US Breast Right Limited 02/09/23 * BD Bone Density DEXA Axial Skeleton 12/09/22 * CT Thorax w/o Contrast 06/23/23 * MA Mammogram Diagnostic Bilateral w/o Juma 01/01/22 * MA Mammogram Diagnostic Bilateral w/o Juma 02/09/23 [facility] Evaluation note* Diagnosis Pre-diabetes- Primary Other abnormal [...] acute Back pain noneactive Maxillary sinusitis acute [facility] Work Phone: Evaluation note* Diagnosis Onset Date Resolution Status Maxillary sinusitis acute [facility] Work Phone: Evaluation noteNo assessment information available [facility] Work Phone: Evaluation note* Diagnosis Pre-diabetes- Primary Other abnormal glucose S/P bariatric surgery Weight gain Other symptoms concerning nutrition, metabolism, and development BMI 32.0-32.9,adult Class 1 obesity with serious comorbidity and body mass index (BMI) of 32.0 to 32.9 in adult, unspecified obesity type documented in this encounter [facility] Author Rock Pineda [facility] Note Date/Time January 16, 2025 6:4 0am [facility] Medical Records Department [address] [place] [address] History & Physical Exam 01/16/25 0638 MR#: [id number] Acct: [id number] Name: AMANDA GRUBBS Rep #:[id number] : 1970 54 From: Rock Pineda DO PCP: Dr. Franky Pearson DO Status:[facility] Location: [place] [address] HPI - General General Date of Admission: [...] - weight is maintaining COLON - Dr. Puhg - no polyps EGD just prior to [...] shakes very little protein and fiber intake [facility] Medical History Kidney stones Wears [...] s 11/26/24 01/15/25 Rx release peg 3350-sod sulf,xhvft-bbe-ion See Rx Instructions PO .COMPLEX #2 11/26/24 [...] rectal pain 30 grams 0RF peg 3350-sod sulf,rirt-vdc-xhi 178.7-7.3-0.5 gram (Suflave) as directed for split [...] Franky Pearson DO; Rock Pineda DO~ Signed [facility] Work Phone: Hospital course Narrative No data available for this section [facility] Discharge instructions No data available for this section [facility] Discharge instructionsAmbulatory Orders* Urology Location: None Selected [facility] Work Phone: Progress note No data available for this section [facility] Progress note Author Kiersten Wright [facility] Note Date/Time March 05, 2025 9:08am [facility] [address] [place] [address] OFFICE VISIT Date of Service: 03/05/25 MR#: [id number] Acct: [id number] Name: AMANDA GRUBBS Rep #: [id number] : 1970 Provider: ANA Wright Age/Sex: 54/F Location[place] [facility] Status: Signed Intake Vital Signs 01/29/25 09:18 [...] week follow up Chief Complaint: follow-up constipation 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 Advance Directives and Living Will Power of Spoilage Worker Latest Code Status on File Code Status Date Activated Date Inactivated Comments Full Code 08/30/2018 12:11 PM 08/30/2018 4:55 PM Full Code 04/09/2018 8:24 AM 04/10/2018 2:44 PM Full Code 04/08/2018 7:00 PM 04/09/2018 8:24 AM Full Code 04/08/2018 11:06 AM 04/08/2018 6:41 PM Full Code 11/27/2017 7:08 AM 11/27/2017 4:38 PM Documents on File Type Date Recorded 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 Yes January 13, 2025 1:38pm Name of Medical Power of Spoilage Worker January 13, 2025 1:38pm Hospital Course Note [...] a 47 y.o. female who presented to [facility] on 04/08/2018 for elective LRYGB. She tolerated [...] OF PROCE DURE: 04/08/2018 SURGEON: Rolan Jordan MALT LOADER: Ruben Truong MD PREOPERATIVE DIAGNOSIS: ? SANDY [...] OF PROCE DURE: 04/08/2018 SURGEON: Rolan Jordan MALT LOADER: Ruben Truong MD PREOPERATIVE DIAGNOSIS: ? SANDY [...] section and content) DATE CREATED AUTHOR 05/18/2018 [facility] DATE CREATED AUTHOR AUTHOR'S ORGANIZ ATION 03/31/2019 [facility] DATE CREATED AUTHOR AUTHOR'S ORGANIZ ATION 01/01/2020 [facility] DATE CREATED AUTHOR AUTHOR'S ORGANIZ ATION 02/03/2020 [facility] DATE CREATED AUTHOR AUTHOR'S ORGANIZ ATION 03/16/2020 [facility] DATE CREATED AUTHOR AUTHOR'S ORGANIZ ATION 09/21/2022 [facility] ([place] DATE CREATED AUTHOR AUTHOR'S ORGANIZ ATION 01/17/2023 [facility] [employer] [facility] DATE CREATED AUTHOR AUTHOR'S ORGANIZ ATION 04/05/2025 [facility] Care Team (unrecognized sect ion and content) Personnel Name: FRANKY PEARSON DO Address: Address: [address] [place] [address]- Care Team Personnel Name: FRANKY PEARSON DO Position: P4 Physician - Primary Care Member Role: Primary Care Physician Address: Address: [address] [place] [address]- Care Team Related Persons Name: JIMMY GRUBBS Address: Home [address] [place], [place] [id number] Address: Temporary [address] [place], [place] [id number] Name: MELBA GRUBBS Address: Home [address] [place], [place] [id number] [place] Address: Temporary [address] [place], [place] [id number] Name: ROMIE GILLES Address: Home [address] [place], [place] [id number] Care Team Personnel Name: FRANKY PEARSON DO Position: P4 Physician - Primary Care Med Service: Active Provider Member Role: Primary Care Physician Address: Address: [address] [place] [address]- [place] Care Team Related Persons Name: JIMMY GRUBBS Address: Home [address] [place], [place] [id number] Address: Temporary [address] [place], [place] [id number] Name: MELBA GRUBBS Address: Home [address] [place], [place] [id number] [place] Address: Temporary [address] [place], [place] [id number] Name: GILLES GRUBBS Address: Home [address] [place], [place] [id number] Care Team Personnel Name: FRANKY PEARSNO DO Position: P4 Physician - Primary Care Member Role: Primary Care Physician Address: Address: [address] [place] [address]- Care Team Related Persons Name: MELBA GRUBBS Address: Home [address] [place], [place] [id number] [place] Address: Temporary [address] [place], [place] [id number] Name: GILLES GRUBBS Address: Home [address] [place], [place] [id number] Care Team Personnel Name: FRANKY PEARSON DO Position: P4 Physician - Primary Care Member Role: Primary Care Physician Address: Address: [address] [place] [address]- Care Team Related Persons Name: MELBA GRUBBS Address: Home [address] [place], [place] [id number] [place] Address: Temporary [address] [place], [place] [phone] Name: GILLES GRUBBS Address: Home [address] [place], [place] [id number] Care Team Personnel Name: FRANKY PEARSON DO Position: P4 Physician - Primary Care Member Role: Primary Care Physician Address: Address: [address] [facility] [place], [place] [id number] [place] [address] Care Team Related Persons Name: MELBA GRUBBS Address: [address] [address] [place], [place] [id number] Address: Temporary [address] [place], [place] [phone] Name: GILLES GRUBBS Address: Home [address] [place], [place] [id number] Reason for Visit (unrecogniz ed section and content) Reason Comments Bariatrics Post Op Follow-up DE POP 03/12 02/26 Reason Onset Date Comments Appointment 01/16/2023 Reason Comments Bariatrics Post Op Follow-up POP D/E FU Care Teams (unrecognized sec tion and content) City Driver Relationship Specialty Start Date End Date Rio Aburto DO [address] [place] [address] PCP - General 06/25/17 City Driver Relationship Specialty Start Date End Date [place] [address] [place] [address] PCP - General 06/25/17 Team Status: Active Member Role Status Dates Dr. Rio Aburto DO Family Provider Active Dr. rFanky Pearson DO Primary Care Provider Active Team Status: Inactive Member Role Status Dates Dr. Yessi Mcqueen DC Attending Provider Active Team Status: Inactive Member Role Status Dates Rolan Valdes PSYCHIATRIC TECH, PSYCHIATRIC TECH-C Attending Provider Active Team Status: Inactive Member [...] Primary Care Provider, Attendin g Provider Active City Driver Relationship Specialty Start Date End Date Rio Aburto [place] [address] [place] [address] PCP - General 06/25/17 Team Status: Inactive [...] End: August 19, 2024 Rolan Valdes NP PSYCHIATRIC TECH-C Referring Provider Active S tart: August 19, [...] BE BASED ON THE PRIMARY CLINICAL RECORDS. [facility] [employer] provides no warranty or guarantee of the accuracy or completeness of information in this document.
== END | disposition home or self-care (01) ==
LOC: CT 16:53
PROVIDERS: PCP Student in an Organized Health Care Education/Training Program; Referring Provider Student in an Organized Health Care Education/Training Program; Visit Provider Student in an Organized Health Care Education/Training Program
DX: K55.9 Vascular disorder of intestine, unspecified (principal)
CPT/HCPCS: 74174; Q9967